=== PATIENT | female | born 1955 | race Caucasian/White ===

== ENCOUNTER 2020-07-25 22:53 | Inpatient (IN) | payer MEDICARE, MEDICAID, SELFPAY ==
--- NOTE | 2020-07-25 22:56 | PM.HP ---
Providers/Chief Complaint Primary Care Provider: MAUREEN Majano Chief Complaint: sob poss covid History of Present Illness Marli Eli is a 65 year old female who has history of oxygen dependent COPD uses 3 L of oxygen at night, sleep apnea, active smoker, diastolic congestive heart failure grade 1 EF 55 to 60% presented to [facility] emergency department with chief complaint of shortness of breath. On arrival he was saturating 86% on 3 L, she was put on 6 L nasal cannula which improved her oxygenation 92%. At that time she was not complaining of any chest pain, nausea, vomiting, diarrhea or fever. She was given Solu-Medrol and DuoNeb treatment, heart rate ranged between 79 to 80s, blood pressure 121/74mmhg White count 12.3, she was not septic, she did not get any antibiotics, CTA was obtained which did not show any PE however groundglass opacities were noticed, EKG normal, BNP 79 White count 12.3 Hemoglobin 14.5 Platelet 316 absolute lymphocyte count 3 pH 7.38 PCO2 40 PO2 53 on 44% fiO2 Sodium 136 Potassium 4 Chloride 101 CO2 21 [address]inine 0[address] chest did not reveal any PE but showed volume loss opacification of right lower lobe mild patchy groundglass opacities in the lungs, nonspecific mild prominent hilar lymphadenopathy She was transferred to [facility] ER for concern of Covid pneumonia. She had active wheezing, she was given DuoNeb treatment in the ER, Covid antigen was requested, and was saturating 90% on 3L nasal cannula which I have increased to 6 L. At the time of my evaluation she had audible wheezing, normal hemodynamics, afebrile, no conversational dyspnea noted no active chest pain. Patient is stating that today at home she usually wears 3 to 4 L of oxygen [id number] and uses trilogy at night, she has been noticing sinus congestion for last few days, she has been noticing clear white discharge from her nose, she has not noticed any fever, sore throat, excessive sputum production, chest pain, diarrhea or dysuria. She is lives in a home with a partner, her partner has no cold-like symptoms, she took her partner to his PCP, at the clinic PCP noted that Ms. Ye was experiencing audible wheezing that is why she was recommended to go to the ER at [facility]. Of note, I was able to read CT 8 chest report from 2016: Which is as follows CTA chest with IV contrast, 08/30/16 1. No dissection. 2. Limited opacification of the pulmonary arteries secondary to the technique hinders characterization of the pulmonary vasculature. However, no visualized embolism as characterized to the most proximal segmental level. Consider alternative form of imaging if indicated clinically-if there is a high clinical suspicion. 3. Numerous nonspecific lymph nodes within the mediastinum. Lymph node in the juxta aortic region of approximately 2 cm. Right hilar lymph node 15 mm. Soft tissue density adjacent to the artery to the left lung base of 2 cm. Some of these lymph nodes are calcified. please correlate regarding known history. 4. Interstitial prominence diffusely of a somewhat reticular nodular pattern. Please correlate regarding known history. Large differential diagnosis. Followup. Edema infection, granulomatous processes within the differential diagnosis. Neoplasm is felt less likely. Review of Systems Const: Denies: fever(s), chills, body aches or fatigue Eyes: Denies: change in vision ENMT: Denies: throat pain Card: Reports: swelling of feet/ankles and dyspnea on exertion; Denies: chest pain or orthopnea Resp: Reports: dyspnea and productive cough GI: Denies: abdominal pain, diarrhea or constipation : Denies: flank pain, urinary frequency or dribbling Musc: Denies: neck pain Skin/Breast: Reports: lesions Neuro: Denies: headache(s) Psych: Reports: anxiety and depression Endo: Denies: polyuria Jordan/Lymph: Denies: easy bruising All/Imm: Denies: urticaria Medications/Allergies Home Medications Medication Instructions Recorded Confirmed Last Taken Type aripiprazole 10 mg tablet 10 mg PO DAILY 10/17/19 06/27/20 Unknown History aspirin 81 mg tablet,delayed 81 mg PO DAILY 10/17/19 06/27/20 Unknown History release bupropion HCl 150 mg 24 hr tablet, 150 mg PO QAM 10/17/19 06/27/20 Unknown History extended release dapagliflozin 10 mg tablet 10 mg PO DAILY 10/17/19 06/27/20 Unknown History docusate sodium 100 mg capsule 100 mg PO DAILY 10/17/19 06/27/20 Unknown History furosemide 40 mg tablet 40 mg PO DAILY 10/17/19 06/27/20 Unknown History metformin 1,000 mg tablet 1,000 mg PO BID 10/17/19 06/27/20 Unknown History metoprolol tartrate 25 mg tablet 25 mg PO BID 10/17/19 06/27/20 Unknown History mirtazapine 30 mg tablet 30 mg PO DAILY 10/17/19 06/27/20 Unknown History pantoprazole 20 mg tablet,delayed 20 mg PO DAILY 10/17/19 06/27/20 Unknown History release potassium chloride 20 mEq 20 meq PO BID 10/17/19 06/27/20 Unknown History tablet,extended release(part/cryst) pregabalin 50 mg capsule 50 mg PO TID 10/17/19 06/27/20 Unknown History rosuvastatin 20 mg tablet 20 mg PO DAILY 10/17/19 06/27/20 Unknown History Allergies Allergy/AdvReac Type Severity Reaction Status Date / Time No Known Allergies Allergy Verified 10/17/19 10:49 PFSH Acute PFSH: Medical History Bipolar affect, depressed CHF (congestive heart failure) COPD (chronic obstructive pulmonary disease) 3L o2 , mild to mod copd responsive to bronchodilator Depression Diabetes Duodenitis Enrolled in chronic care management Gastritis GERD (gastroesophageal reflux disease) Hypertension Obesity Oxygen dependent Sleep apnea Smoker Surgical History (Updated 07/25/20 @ 23:47 by Fatou Johnson MD) H/O colonoscopy with polypectomy H/O esophagogastroduodenoscopy History of appendectomy S/P cholecystectomy Tubal ligation status Family History Other CAD (coronary artery disease) Social History Smoking and tobacco status: current every day smoker Alcohol intake: never Substance/Drug Use: never Physical Exam Narrative: EXAM NARRATIVE: Obese female sitting in her bed without any active discomfort Appears more than stated age Who was saturating 90% on 3 L nasal cannula I have increased her FiO2 to 6 L She has diffuse audible wheezing No conversational dyspnea noted S1, S2 no tachycardia or overt signs of heart failure Abdomen distended nontender abdomen, no signs of peritonitis Neurologically nonfocal exam EOMI, PERRLA GCS 15, lower extremity no edema gangrene or ulcer Skin does not show any ulcers No tenderness noted around frontal and maxillary sinuses No lymphadenopathy noted around anterior cervical, submandibular She is not complaining of active chest pain A&P Assessment and plan (1) Acute on chronic respiratory failure with hypoxemia: Status: Acute (2) Wheezing: Status: Acute (3) Sepsis: Status: Acute (4) Pneumonia: Status: Acute Additional A&P Information Acute exacerbation of COPD due to active smoking and possible pneumonia Acute on chronic hypoxic respiratory failure Her oxygen requirement has increased from 3 L to 6 L PE has been ruled out from CTA chest done at [facility] Diffuse audible wheezing noted She is tachypneic with leukocytosis Meet sepsis criteria I would treat her with ceftriaxone and azithromycin for possible pneumonia Request urine antigen, repeat blood gas in the morning Start her on prednisone 40 mg daily for 5 days DuoNeb every 4 as needed BiPAP at night, she is using trilogy at night at home Type 2 diabetes, consistent carb diet, moderate sliding scale Diastolic congestive heart failure no acute exacerbation I will continue her Lasix 40 mg on daily basis BNP not elevated Duodenitis/gastritis history: Patient not complaining of active reflux disease however it might have a role to play with her diffuse wheezing and chronic shortness of breath, we will keep her on Protonix 20 mg on daily basis Bipolar disorder: No acute exacerbation Continue bupropion, hold aripiprazole for now as she will be requiring a azithromycin, will check QTC intervals first Full code Consistent carb diet DVT prophylaxis Lovenox Attestations Medical Necessity Statement*: Anticipating stay in the hospital cross more than 2 midnights currently need management for sepsis which is most likely secondary to community-acquired pneumonia, Covid antigen result is pending Time Spent in Patient Care: (>than 50% of time spent in counselling and/or direct pt care on unit). 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
[2020-07-25 22:58] VITALS: BP 123/78; PULSE 81; RESP 24; TEMP 36.8; O2SAT 90
--- NOTE | 2020-07-25 22:58 | ED_ITS ---
HPI - SOB/Dyspnea General: Chief Complaint: Shortness of Breath/Dyspnea Stated Complaint: sob poss covid Time Seen by Provider: 07/25/20 22:53 Source: patient and EMS Mode of arrival: EMS Limitations: no limitations History of Present Illness: HPI Narrative: Marli is a 65-year-old female who comes in as a direct admission from [facility]. Patient was accepted by Dr. Johnson. She is stopping in the ED solely for a Covid test. Upon arrival the patient appears stable but she does have audible wheezing present. PFSH ED PFSH: Medical History Bipolar affect, depressed CHF (congestive heart failure) COPD (chronic obstructive pulmonary disease) 3L o2 , mild to mod copd responsive to bronchodilator Depression Diabetes Duodenitis Enrolled in chronic care management Gastritis GERD (gastroesophageal reflux disease) Hypertension Obesity Oxygen dependent Sleep apnea Smoker Surgical History (Updated 07/25/20 @ 23:47 by Fatou Johnson MD) H/O colonoscopy with polypectomy H/O esophagogastroduodenoscopy History of appendectomy S/P cholecystectomy Tubal ligation status Family History Other CAD (coronary artery disease) Social History Smoking and tobacco status: current every day smoker Alcohol intake: never Substance/Drug Use: never Physical Exam Const: COMMON NORMALS: no acute distress, patient oriented x3, no limitations and alert GENERAL APPEARANCE: cooperative HENMT: COMMON NORMALS: normocephalic, atraumatic, external ears normal, EAC's normal and Normal external nose present HEAD & SCALP: normal to inspection, normocephalic and atraumatic FACE & SINUS: normal facial exam and face symmetric NOSE: Normal external nose present and Normal nares present EXTERNAL EAR: Yes external ears normal EXTERNAL AUDITORY CANAL: EAC's normal MOUTH: Normal oral and palatal mucosa present, lip normal and tongue normal Eye: COMMON NORMALS: Equal, round and reactive pupils present and conjunctivae normal GENERAL EYE: appearance normal, both eyes and all related structures ALIGNMENT: Yes alignment normal PERIORBITAL: periorbital findings normal EYELID: eyelids normal CONJUNCTIVA: Yes conjunctivae normal SCLERA: sclerae normal PUPIL: Yes Equal, round and reactive pupils present Neck/C-Spine: COMMON NORMALS: full ROM, no lymphadenopathy, supple, no meningeal signs and no JVD GENERAL: Yes normal visual inspection and Yes trachea midline Chest: COMMONS NORMALS: normal inspection of the chest and normal palpation of entire chest wall Resp: COMMON NORMALS: normal respiratory effort, No retractions, No use of accessory muscles and clear to auscultation bilaterally EFFORT & INSPECTION: Yes able to speak in complete sentences and Yes symmetric chest movement AUSCULTATION: clear to auscultation bilaterally, no crackles, no rales, no rhonchi and wheezes Cardio: COMMON NORMALS: no JVD, regular rate, regular rhythm, S1 normal heart sound present and S2 normal heart sound present RATE: regular rate RHYTHM: regular rhythm HEART SOUNDS: S1 normal heart sound present, S2 normal heart sound present, no click, no gallops, no murmurs and no rubs GI: COMMON NORMALS: Soft to palpation and No hepatosplenomegaly present PALPATION: Yes Soft to palpation, No Tenderness to palpation present (GI), No Guarding due to palpation present (GI), No Rigid due to palpation, Yes No hepatosplenomegaly present, No Hernia present, No Palpable mass present and No Pulsatile mass present : COMMON NORMALS: Yes no CVA tenderness BLADDER/KIDNEY EXAM: Yes no CVA tenderness EXTERNAL FEMALE EXAM: No Hernia present Back/Pelvis: COMMON NORMALS: no CVA tenderness, thoracic and lumbar spine normal to inspection, no thoracic nor lumbar tenderness and thoraco-lumbar ROM normal Extremity: COMMON NORMALS: normal to inspection, full ROM, capillary refill normal, no joint enlargement, no clubbing, cyanosis or edema and no calf tenderness Neuro: COMMON NORMALS: patient oriented x3, CN's II-XII intact bilaterally, moves all extremities, no focal motor deficits and no sensory deficits noted SENSORIUM/ORIENTATION: Yes alert MENINGEAL SIGNS: Yes no meningeal signs SPEECH: speech normal Psych: COMMON NORMALS: mental status grossly normal, Normal thought process present, cooperative, normal affect, speech normal and activity/motor behavior normal SPEECH: Yes normal speech THOUGHT PROCESS: Normal thought process present Skin: COMMON NORMALS: no rashes or lesions noted, turgor normal, no jaundice, no petechiae and no mottling GENERAL SKIN EXAM: no rashes or lesions noted and turgor normal Course Vital Signs: Vital signs: Vital Signs Temperature 98.2 F 07/25/20 22:58 Pulse Rate 94 07/25/20 23:40 Respiratory Rate 19 H 07/25/20 23:35 Blood Pressure 123/78 07/25/20 23:21 Pulse Oximetry 92 07/25/20 23:35 MDM - SOB/Dyspnea MDM Narrative: Medical decision making narrative: Dr. Johnson is aware that the patient is here and is asked me to place the Covid test. He agrees to assume care at this point. 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
[2020-07-25 23:21] VITALS: BP 123/78; PULSE 78; RESP 24; O2SAT 93
[2020-07-25 23:35] VITALS: PULSE 91; RESP 19; O2SAT 92
[2020-07-25] MEDS: albuterol 8 gm MDI 6 PUFF INHALATION (23:35)
[2020-07-25 23:40] VITALS: PULSE 94
--- NOTE | 2020-07-25 23:45 | PC.NURSE ---
call to lab to verify results.
[2020-07-25 23:48] LABS: SARS Covid-2 Antigen Negative (Negative)
[2020-07-25 23:51] VITALS: BP 123/78; PULSE 77; RESP 20; O2SAT 91
[2020-07-26] VITALS (54 sets, daily range): BP systolic 92–125; BP diastolic 53–80; PULSE 58–102; RESP 12–32; TEMP 36.6–37.2; O2SAT 90–96
--- NOTE | 2020-07-26 00:32 | PC.NURSE ---
pt waiting for admission, no needs
[2020-07-26] MEDS: cefTRIAXone 1,000 MG in sodium chloride 0.9% (plus) 50 ML 100 MG IV (01:23)
[2020-07-26] MEDS: enoxaparin 40 mg/0.4 mL Syringe SUBCUT ×2 (01:23→23:56)
[2020-07-26 01:37] LABS: Glucose Point of Care 237 mg/dL (70-110)
--- NOTE | 2020-07-26 01:57 | PC.NURSE ---
PT ARRIVED FROM ED TO CSU 103. PT TRANSFERRED TO BED SBA. RT PUT PT ON BIPAP. VS WNL. PT HAS A NSR. BIKE MECHANIC NURSE DID INITIAL ASSESSMENT. PT DENIES PAIN. PT ORIENTATED TO ROOM. WILL CONTINUE TO MONITOR.
[2020-07-26] MEDS: ipratropium-albuterol 3 mL Neb INHALATION ×2 (02:30→07:55)
[2020-07-26 03:53] LABS: Basophils % 0.3 %; Eosinophils % 0.3 %; Hematocrit 45.7 % (37.0-47.0); Hemoglobin 14.2 g/dL (11.5-15.3); Lymphocytes # 1.1 10^3/uL (0.8-4.8); Lymphocytes % 10.4 %; Mean Corpuscular HGB Conc 31.1 g/dL (30.0-36.0); Mean Corpuscular Volume 90.1 fL (81-99); Mean Platelet Volume 11.1 fL (7.4-10.4); Monocytes % 0.4 %; Neutrophils # 9.51 10^3/uL (1.8-7.7); Nucleated Red Blood Cells % 0 %; Platelet Count 289 10^3/cmm (130-400); Red Blood Count 5.07 10^6/uL (4.1-5.3); Red Cell Distribution Width 16.6 % (12.1-15.1); White Blood Count 10.8 10^3/uL (4.0-10.0)
[2020-07-26 04:26] LABS: Blood Urea Nitrogen 12 mg/dL (8-23); Calcium 9.6 mg/dL (8.5-10.5); Carbon Dioxide 24 mmol/L (22-29); Chloride 104 mmol/L (98-107); Glucose 235 mg/dL (65-115); Osmolality Calculated 295 mOsm/kg (285-295); Sodium 139 mmol/L (136-145)
[2020-07-26 04:42] LABS: Anion Gap 15.9 (5-19); Potassium 4.9 mmol/L (3.5-5.1)
[2020-07-26] MEDS: buPROPion XL (24 HR) 150 mg Tablet PO (05:56)
--- NOTE | 2020-07-26 07:00 | XR_ITS ---
WS: [id number] Exam: XR chest 1V portable [id number] Date/Time of Exam: 07/26/2020 7:00 AM Reason For Exam: pneumonia Comparison 08/31/2016. Mild infiltrate in the left lower lobe suspicious for pneumonia. Remaining lung cotton are clear. Car diomediastinal structures normal for technique. No pleural effusions. Regional bony elements are inta ct. XR/XR chest 1V portable [id number] IMPRESSION: 1. Mild left lower lobe infiltrate suspicious for pneumonia.
[2020-07-26 07:01] LABS: Glucose Point of Care 205 mg/dL (70-110)
--- NOTE | 2020-07-26 08:00 | PC.NURSE ---
patient sitting on the side of the bed eating breakfast. assessment performed, needs within reach. no other needs identified at this time.
[2020-07-26] MEDS: FUROsemide 40 mg Tablet PO (09:00)
[2020-07-26] MEDS: aspirin 81 mg EC Tablet PO (09:00)
[2020-07-26] MEDS: atorvastatin 40 mg Tablet 80 MG PO (09:00)
[2020-07-26] MEDS: pantoprazole DR 40 mg Tablet PO (09:01)
[2020-07-26] MEDS: metoprolol tartrate 25 mg Tablet PO ×2 (09:01→18:13)
[2020-07-26] MEDS: predniSONE 20 mg Tablet 40 MG PO (09:01)
[2020-07-26] MEDS: azithromycin 250 mg Tablet 500 MG PO (09:01)
--- NOTE | 2020-07-26 10:29 | ECG_ITS ---
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 Measurements Intervals Murray Rate: P: MO: QRS: 0 QRSD: T: 0 QT: QTc: Interpretive Statements SINUS RHYTHM WARNING: DATA QUALITY MAY AFFECT INTERPRETATION INTERPRETATION BASED ON A DEFAULT AGE OF 40 YEARS Compared to ECG 08/30/2016 13:38:55 Sinus rhythm no longer present Electronically Signed On 07-26-2020 20:17:45 TRIAL EXAMINER by America Hale M.D. [id number] f
[2020-07-26 11:10] LABS: Glucose Point of Care 237 mg/dL (70-110)
--- NOTE | 2020-07-26 12:15 | PC.NURSE ---
urine specimen collected via clean catch. specimen taken to lab.
--- NOTE | 2020-07-26 14:02 | PM.PN ---
Subjective Subjective: Interval history: Patient was stable ovennight on supplemental oxygen. Noted improvement since admission. Vitals/I&O/Wt Last Vital Signs Temp 97.9 F 07/26/20 08:00 Pulse 90 07/26/20 11:56 Resp 21 H 07/26/20 11:56 BP 92/53 07/26/20 11:56 Pulse Ox 90 07/26/20 11:56 07/25/20 07/26/20 07/26/20 22:59 06:59 14:59 Intake Total 240 / 240 Output Total 400 / 400 Balance -400 / -400 240 / 240 Physical Exam Narrative: EXAM NARRATIVE: General: Alert, awake oriented x 3 CVS : Regular rate and rythym Chest : non-labored respiration Abdomen distended nontender abdomen, no signs of peritonitis Neurologically nonfocal exam Ext : no edema Data : 07/26/20 03:30 07/26/20 03:30 Micro: Microbiology 07/26/20 12:40 Legionella Urinary Antigen - Final Urine,Clean Catch Bacterial Antigens - Final A&P Assessment and plan (1) Acute on chronic respiratory failure with hypoxemia: Status: Acute (2) Wheezing: Status: Acute (3) Sepsis: Status: Acute (4) Pneumonia: Status: Acute Additional A&P Information Acute exacerbation of COPD due to active smoking and possible pneumonia Acute on chronic hypoxic respiratory failure - Wean 02 as tolerated - PE has been ruled out from CTA chest done at [facility] - Albuterol HFA until covid-19 results - BiPAP at night, she is using trilogy at night at home - Prednisone / Azithromycin Type 2 diabetes, consistent carb diet, moderate sliding scale Diastolic congestive heart failure no acute exacerbation Continue Lasix Duodenitis/gastritis history - Protonix Bipolar disorder: No acute exacerbation - Stable continue home meds Full code Consistent carb diet DVT prophylaxis Lovenox Attestations Medical Necessity Statement*: Due to ongoing respiratory failure kodi require further hospitalization Time Spent in Patient Care: Greater than 35 minutes (>than 50% of time spent in counselling and/or direct pt care on unit). Coding Level of Care Code Acute Server Administrator for Lisag Fwd Diagnoses Acute on chronic respiratory failure with hypoxemia J96.21 Wheezing R06.2 Sepsis A41.9 Pneumonia J18.9
[2020-07-26] MEDS: acetaminophen 325 mg Tablet 650 MG PO (15:34)
[2020-07-26 17:26] LABS: Glucose Point of Care 189 mg/dL (70-110)
--- NOTE | 2020-07-26 19:24 | PC.NURSE ---
patient had an uneventful shift. needs within reach. report given to night nurse that will take over care.
[2020-07-26 20:28] LABS: Glucose Point of Care 241 mg/dL (70-110)
[2020-07-27] VITALS (20 sets, daily range): BP systolic 98–130; BP diastolic 63–80; PULSE 56–77; RESP 14–24; TEMP 35.5–36.9; O2SAT 91–96
[2020-07-27] MEDS: cefTRIAXone 1,000 MG in sodium chloride 0.9% (plus) 50 ML 100 MG IV (00:42)
[2020-07-27] MEDS: buPROPion XL (24 HR) 150 mg Tablet PO (06:03)
[2020-07-27 06:49] LABS: Glucose Point of Care 138 mg/dL (70-110)
[2020-07-27] MEDS: azithromycin 250 mg Tablet 500 MG PO (09:36)
[2020-07-27] MEDS: aspirin 81 mg EC Tablet PO (09:36)
[2020-07-27] MEDS: atorvastatin 40 mg Tablet 80 MG PO (09:36)
[2020-07-27] MEDS: FUROsemide 40 mg Tablet PO (09:37)
[2020-07-27] MEDS: metoprolol tartrate 25 mg Tablet PO ×2 (09:38→17:28)
[2020-07-27] MEDS: pantoprazole DR 40 mg Tablet PO (09:38)
[2020-07-27] MEDS: predniSONE 20 mg Tablet 40 MG PO (09:39)
[2020-07-27] MEDS: albuterol 8 gm MDI 2 PUFF INHALATION ×2 (10:35→16:57)
[2020-07-27 11:28] LABS: Glucose Point of Care 168 mg/dL (70-110)
--- NOTE | 2020-07-27 13:55 | P.PN_ITS ---
Subjective Subjective: Interval history: Noted significant improvement in respiratory status however does not quite feel back to baseline. No fever, chills, nausea or vomiting. On 4L via NC at the time of my eval. Vitals/I&O/Wt Last Vital Signs Temp 97.8 F 07/27/20 10:55 Pulse 71 07/27/20 10:55 Resp 24 H 07/27/20 10:55 BP 114/63 07/27/20 10:55 Pulse Ox 94 07/27/20 10:55 07/26/20 07/27/20 07/27/20 22:59 06:59 14:59 Intake Total 200 / 680 290 / 290 Output Total 700 / 1150 1600 / 1600 Balance -500 / -470 -1310 / -1310 Physical Exam Narrative: EXAM NARRATIVE: General: Alert, awake oriented x 3 on 02 at 4L CVS : Regular rate and rythym Chest : non-labored respiration Abdomen distended nontender abdomen, no signs of peritonitis Neurologically nonfocal exam Ext : no edema Data : 07/26/20 03:30 07/26/20 03:30 Micro: Microbiology 07/26/20 12:40 Legionella Urinary Antigen - Final Urine,Clean Catch Bacterial Antigens - Final A&P Assessment and plan (1) Acute on chronic respiratory failure with hypoxemia: Status: Acute (2) Wheezing: Status: Acute (3) Sepsis: Status: Acute (4) Pneumonia: Status: Acute Additional A&P Information Acute exacerbation of COPD due to active smoking and possible pneumonia Acute on chronic hypoxic respiratory failure - Improving - PE has been ruled out from CTA chest done at [facility] - Albuterol HFA until covid-19 results - BiPAP at night, she is using trilogy at night at home - Prednisone / Azithromycin - Will wean o2 at baseline and check ambulatory o2 today Type 2 diabetes, consistent carb diet, moderate sliding scale Diastolic congestive heart failure no acute exacerbation Continue Lasix Duodenitis/gastritis history - Protonix Bipolar disorder: No acute exacerbation - Stable continue home meds Full code Consistent carb diet DVT prophylaxis Lovenox Attestations Medical Necessity Statement*: Will require additional day in hospital for management of respiratory failure. Time Spent in Patient Care: Greater than 35 minutes Coding Level of Care Code Acute Object Oriented Developer for Farhat Fwjaden Diagnoses Acute on chronic respiratory failure with hypoxemia J96.21 Wheezing R06.2 Sepsis A41.9 Pneumonia J18.9
[2020-07-27 16:07] LABS: Glucose Point of Care 227 mg/dL (70-110)
--- NOTE | 2020-07-27 16:39 | PC.NURSE ---
Nurse called tawana figueredo, spoke to nurse Wednesday in the ER. She advised that the covid test results came back negative (PCR send out). Nurse is discontinuing airborne isolation precautions.
[2020-07-27 20:28] LABS: Glucose Point of Care 196 mg/dL (70-110)
--- NOTE | 2020-07-27 23:40 | PC.NURSE ---
PT WAS READJUSTED IN BED. PT DENIES PAIN AT THIS TIME. BIPAP IS ON. WILL CONTINUE TO MONITOR.
[2020-07-28] MEDS: cefTRIAXone 1,000 MG in sodium chloride 0.9% (plus) 50 ML 100 MG IV (00:04)
[2020-07-28] MEDS: enoxaparin 40 mg/0.4 mL Syringe SUBCUT (00:05)
[2020-07-28 01:17] VITALS: PULSE 57; RESP 21; O2SAT 98
[2020-07-28 04:00] VITALS: BP 119/74; PULSE 58; RESP 19; TEMP 37; O2SAT 90
[2020-07-28 04:13] LABS: Basophils # 0.1 10^3/uL (0.0-0.1); Basophils % 0.4 %; Eosinophils % 0.2 %; Hematocrit 41.8 % (37.0-47.0); Hemoglobin 12.8 g/dL (11.5-15.3); Lymphocytes % 23.8 %; Mean Corpuscular HGB Conc 30.6 g/dL (30.0-36.0); Mean Corpuscular Hemoglobin 27.8 pg (28.0-34.0); Mean Corpuscular Volume 90.7 fL (81-99); Mean Platelet Volume 11.3 fL (7.4-10.4); Monocytes # 0.7 10^3/uL (0.2-0.9); Monocytes % 5.5 %; Neutrophils # 8.71 10^3/uL (1.8-7.7); Neutrophils % 69.6 %; Nucleated Red Blood Cells % 0 %; Platelet Count 276 10^3/cmm (130-400); Red Blood Count 4.61 10^6/uL (4.1-5.3); Red Cell Distribution Width 16.9 % (12.1-15.1); White Blood Count 12.5 10^3/uL (4.0-10.0)
[2020-07-28 04:31] LABS: Alanine Aminotransferase 11 U/L (0-33); Albumin Level 3.5 g/dL (3.5-5.2); Alkaline Phosphatase 68 IU/L (35-105); Blood Urea Nitrogen 25 mg/dL (8-23); Carbon Dioxide 25 mmol/L (22-29); Chloride 102 mmol/L (98-107); Globulin 2.3 g/dL (1.3-4.6); Glomerular Filtration Rate 72.2 mL/min (90-130); Glucose 107 mg/dL (65-115); Osmolality Calculated 287 mOsm/kg (285-295); Sodium 136 mmol/L (136-145); Total Bilirubin 0.2 mg/dL (0.15-1.2); Total Protein 5.8 g/dL (6.6-8.7)
[2020-07-28 04:53] LABS: Anion Gap 13.5 (5-19); Aspartate Amino Transferase 9 U/L (0-32); Potassium 4.5 mmol/L (3.5-5.1)
[2020-07-28 05:05] LABS: Slide Review Slide Review Perform
[2020-07-28] MEDS: buPROPion XL (24 HR) 150 mg Tablet PO (05:42)
--- NOTE | 2020-07-28 05:43 | PC.NURSE ---
PT DENIES PAIN AT THIS TIME. PT HAD UNEVENTFUL NIGHT. PT ON BIPAP MOST OF NIGHT. PUT ON 4L NC AT 0500. WILL GIVE REPORT TO DAYSHIFT.
[2020-07-28 06:44] LABS: Glucose Point of Care 117 mg/dL (70-110)
[2020-07-28 07:54] VITALS: BP 102/64; PULSE 59; RESP 16; TEMP 36.4; O2SAT 93
[2020-07-28] MEDS: azithromycin 250 mg Tablet 500 MG PO (08:53)
[2020-07-28] MEDS: metoprolol tartrate 25 mg Tablet PO (08:53)
[2020-07-28] MEDS: aspirin 81 mg EC Tablet PO (08:53)
[2020-07-28] MEDS: FUROsemide 40 mg Tablet PO (08:53)
[2020-07-28] MEDS: atorvastatin 40 mg Tablet 80 MG PO (08:54)
[2020-07-28] MEDS: predniSONE 20 mg Tablet 40 MG PO (08:54)
[2020-07-28] MEDS: pantoprazole DR 40 mg Tablet PO (08:54)
[2020-07-28 09:06] VITALS: PULSE 64; RESP 16; O2SAT 93
[2020-07-28] MEDS: albuterol 8 gm MDI 2 PUFF INHALATION (09:06)
[2020-07-28 11:55] LABS: Glucose Point of Care 130 mg/dL (70-110)
[2020-07-28 12:00] VITALS: BP 112/70; PULSE 65; RESP 17; TEMP 36.4; O2SAT 92
[2020-07-28 12:52] VITALS: BP 112/70; PULSE 65; RESP 17; TEMP 36.4; O2SAT 92
--- NOTE | 2020-07-28 13:06 | P.DS_ITS ---
Discharge Providers Date of Admission: 07/26/20 00:33 Date of Discharge: July 28, 2020 Attending Provider at Admission: Fatou Johnson MD Attending Provider at Discharge: Shubham Jones Primary Care Provider: MAUREEN Majano Diagnoses at Discharge Discharge Diagnosis (1) Acute on chronic respiratory failure with hypoxemia: Status: Acute (2) Wheezing: Status: Acute (3) Sepsis: Status: Acute (4) Pneumonia: Status: Acute Reason for Visit Reason for Visit: sob poss covid Hospital Course Hospital Course 65 year old female who has history of oxygen dependent COPD uses 3 L of oxygen at night, sleep apnea, active smoker, diastolic congestive heart failure grade 1 EF 55 to 60% presented to [place] emergency department with chief complaint of shortness of breath. On arrival he was saturating 86% on 3 L, she was put on 6 L nasal cannula which improved her oxygenation 92%. At that time she was not complaining of any chest pain, nausea, vomiting, diarrhea or fever. She was given Solu-Medrol and DuoNeb treatment, heart rate ranged between 79 to 80s, blood pressure 121/74mmhg White count 12.3, she was not septic, she did not get any antibiotics, CTA was obtained which did not show any PE however groundglass opacities were noticed, EKG normal, BNP 79 White count 12.3 Hemoglobin 14.5 Platelet 316 absolute lymphocyte count 3 pH 7.38 PCO2 40 PO2 53 on 44% fiO2 Sodium 136 Potassium 4 Chloride 101 CO2 21 [address]inine 0[address] chest did not reveal any PE but showed volume loss opacification of right lower lobe mild patchy groundglass opacities in the lungs, nonspecific mild prominent hilar lymphadenopathy She was transferred to [facility] ER for concern of Covid pneumonia. She had active wheezing, she was given DuoNeb treatment in the ER, Covid antigen was requested, and was saturating 90% on 3L nasal cannula which I have increased to 6 L. At the time of my evaluation she had audible wheezing, normal hemodynamics, afebrile, no conversational dyspnea noted no active chest pain. Patient is stating that today at home she usually wears 3 to 4 L of oxygen [id number] and uses trilogy at night, she has been noticing sinus congestion for last few days, she has been noticing clear white discharge from her nose, she has not noticed any fever, sore throat, excessive sputum production, chest pain, diarrhea or dysuria. She is lives in a home with a partner, her partner has no cold-like symptoms, she took her partner to his PCP, at the clinic PCP noted that Ms. Ye was experiencing audible wheezing that is why she was recommended to go to the ER at [place]. Of note, I was able to read CT 8 chest report from 2016: Which is as follows CTA chest with IV contrast, 08/30/16 1. No dissection. 2. Limited opacification of the pulmonary arteries secondary to the technique hinders characterization of the pulmonary vasculature. However, no visualized embolism as characterized to the most proximal segmental level. Consider alternative form of imaging if indicated clinically-if there is a high clinical suspicion. 3. Numerous nonspecific lymph nodes within the mediastinum. Lymph node in the juxta aortic region of approximately 2 cm. Right hilar lymph node 15 mm. Soft tissue density adjacent to the artery to the left lung base of 2 cm. Some of these lymph nodes are calcified. please correlate regarding known history. 4. Interstitial prominence diffusely of a somewhat reticular nodular pattern. Please correlate regarding known history. Large differential diagnosis. Followup. Edema infection, granulomatous processes within the differential diagnosis. Neoplasm is felt less likely. Upon admission to the hospital patients rapid COVID-19 was negative. She was continued to prednisone 40 mg PO daily. In addition she was treated with ceftriaxone and azithromycin for suspected community acquired pneumonia. Noted return to baseline respiratory status and 02 requirement. Wanting to be discharged. She was prescribed cefpodoxime 200 mg PO BID for additional 5 days, prednisone 40 mg daily for additional 3 days. Discharged in stable condition. Physical Exam Narrative: EXAM NARRATIVE: General: Alert, awake oriented x 3 on 02 at 3L CVS : Regular rate and rythym Chest : non-labored respiration Abdomen distended nontender abdomen, no signs of peritonitis Neurologically nonfocal exam Ext : no edema Discharge Data Data Completed and Pending: Completed Studies During Hospitalization Category Date Time Status XR chest 1V marcus ble [id number] Routine Exams 07/26/20 07:00 Completed Labs from last 24 hours 07/28/20 07/28/20 07/28/20 11:45 06:37 03:24 WBC RBC Hgb Hct MCV MCH MCHC RDW Plt Count MPV Neut % (Auto) Lymph % (Auto) [place] % (Auto) Eos % (Auto) Baso % (Auto) Neut # (Auto) Lymph # (Auto) [place] # (Auto) Eos # (Auto) Baso # (Auto) Nucleated RBC % (a uto) Nucleated RBCs # Sodium 136 Potassium 4.5 Chloride 102 Carbon Dioxide 25 Anion Gap 13.5 BUN 25 H Creatinine 0.8 GFR Calculation 72.2 L Glucose 107 POC Glucose 130 117 Calculated Osmolal ity 287 Calcium 9.0 Total Bilirubin 0.2 AST 9 ALT 11 Alkaline Phosphata se 68 Total Protein 5.8 L Albumin 3.5 Globulin 2.3 07/28/20 07/27/20 07/27/20 03:24 20:19 15:44 WBC 12.5 H RBC 4.61 Hgb 12.8 Hct 41.8 MCV 90.7 MCH 27.8 L MCHC 30.6 RDW 16.9 H Plt Count 276 MPV 11.3 H Neut % (Auto) 69.6 Lymph % (Auto) 23.8 [place] % (Auto) 5.5 Eos % (Auto) 0.2 Baso % (Auto) 0.4 Neut # (Auto) 8.71 H Lymph # (Auto) 3.0 [place] # (Auto) 0.7 Eos # (Auto) 0.0 Baso # (Auto) 0.1 Nucleated RBC % (a uto) 0 Nucleated RBCs # 0.0 Sodium Potassium Chloride Carbon Dioxide Anion Gap BUN Creatinine GFR Calculation Glucose POC Glucose 196 227 Calculated Osmolal ity Calcium Total Bilirubin AST ALT Alkaline Phosphata se Total Protein Albumin Globulin Vitals: Last Vital Signs Temp 97.5 F L 07/28/20 12:52 Pulse 65 07/28/20 12:52 Resp 17 07/28/20 12:52 BP 112/70 07/28/20 12:52 Pulse Ox 92 07/28/20 12:52 Discharge Plan Discharge Patient Disposition: Home Condition: Stable Prescriptions: New prednisone 20 mg Tablet 40 mg PO DAILY 3 Days Qty: 6 RF: 0 cefpodoxime 200 mg tablet 200 mg PO BID Qty: 10 RF: 0 Continued aripiprazole 10 mg tablet 10 mg PO DAILY RF: 0 aspirin 81 mg tablet,delayed release (DR/EC) 81 mg PO DAILY RF: 0 bupropion HCl 150 mg tablet extended release 24 hr 150 mg PO QAM RF: 0 docusate sodium [Colace] 100 mg capsule 100 mg PO DAILY RF: 0 Farxiga 10 mg tablet 10 mg PO DAILY RF: 0 furosemide [Lasix] 40 mg tablet 40 mg PO DAILY RF: 0 pregabalin [Lyrica] 50 mg capsule 50 mg PO TID RF: 0 metformin 1,000 mg tablet 1,000 mg PO BID RF: 0 metoprolol tartrate 25 mg tablet 25 mg PO BID RF: 0 mirtazapine 30 mg tablet 30 mg PO DAILY RF: 0 pantoprazole 20 mg tablet,delayed release (DR/EC) 20 mg PO DAILY RF: 0 potassium chloride 20 mEq tablet,ER particles/crystals 20 meq PO BID RF: 0 rosuvastatin 20 mg tablet 20 mg PO DAILY RF: 0 Discharge Orders: Discharge Order (Routine); Ordered 07/28/20 Ordered By: Shubham Jones Referrals: Raad Bhatt FNP [Primary Care Provider] - 1-3 days ([facility] will be calling to schedule a hospital followup to be seen in 1 to 3 days. If you don't hear from them by late Wednesday morning, please give them a call. Thank you) Discharge Diet: Diabetic Discharge Activity: Resume usual activity Patient Instructions: Prednisone (By mouth), Cefpodoxime Proxetil (By mouth), Sepsis (DC), Community-acquired Pneumonia (DC) Discharge Attestations Time Spent in Discharge Care*: greater than 30 min Status at Discharge: Cognitive status at discharge: cognitively intact , Behavioral status at discharge: cooperative , Functional status at discharge: independent ambulation Overall status at discharge: patient is back to baseline Quality Metrics Clinical Quality Measures During this hospital stay, did patient experience: None Coding Level of Care Code Acute Airbrush Artist for Farhat Fwd Diagnoses Acute on chronic respiratory failure with hypoxemia J96.21 Wheezing R06.2 Sepsis A41.9 Pneumonia J18.9
--- NOTE | 2020-07-30 13:56 | PC.RESP ---
SMOKING CESSATION AND PULMONARY REHAB INFORMATION SENT TO PATIENT.
== END 2020-07-28 16:18 | disposition home or self-care (01) | DRG 871 ==
LOC: ER 23:09 → CSU 07-26 00:33
PROVIDERS: Admitting Provider Internal Medicine; Emergency Provider Emergency Medicine; PCP Registered Nurse; Visit Provider Hospitalist
DX: A41.9 Sepsis, unspecified organism (principal); J18.9 Pneumonia, unspecified organism; J96.21 Acute and chronic respiratory failure with hypoxia; J44.0 Chronic obstructive pulmonary disease with (acute) lower respiratory infection; I50.32 Chronic diastolic (congestive) heart failure; Z99.81 Dependence on supplemental oxygen; G47.30 Sleep apnea, unspecified; F17.210 Nicotine dependence, cigarettes, uncomplicated; I11.0 Hypertensive heart disease with heart failure; F31.9 Bipolar disorder, unspecified; E11.9 Type 2 diabetes mellitus without complications; K21.9 Gastro-esophageal reflux disease without esophagitis; E66.9 Obesity, unspecified; Z79.82 Long term (current) use of aspirin
CPT/HCPCS: 12345; 36415; 36416; 71045; 80048; 80053; 82962; 85025; 86403; 87426; 87449; 93005; 94640; 94660; 96372; 99283; J0696; J1650; J1815; J3535; J7512; Q0144

== ENCOUNTER 2020-10-01 02:31 | Observation (INO) | payer MEDICARE, MEDICAID, SELFPAY ==
[2020-10-01] VITALS (12 sets, daily range): BP systolic 103–132; BP diastolic 60–78; PULSE 75–96; RESP 12–24; TEMP 36.3–36.8; O2SAT 91–97; BMI 50.9
[2020-10-01 03:29] LABS: ABG PCO2 39.4 mmHg (35-45); Base Excess ABG -0.4 mmol/L (-2.0-2.0); Blood Gas Allen Test P; HCO3 ABG 24.3 mmol/L (22-26); Oxygen Device OXY MASK; Oxygen Saturation ABG 91.3; PO2 ABG 59.4 mmHg (80.0-100.0); Potassium Level - ABG 3.9 mmol/L (3.5-5.0)
[2020-10-01 03:30] LABS: Alveolar-Arterial Oxygen Gradi 39.1 mmHg (5-10); Arterial Blood Gas Hematocrit 43.7 % (37-47); Blood Gas Sample Site R-RADIAL; Blood Gas Sample Type ART; HGB O2 Sat 89.6 % (95-100); Ionized Calcium Level - ABG 1.2 mmol/L (1.1-1.4); Total Hemoglobin 14.3 g/dL (12-16)
[2020-10-01 03:31] LABS: Methemoglobin 0.9 % (0.4-1.5)
--- NOTE | 2020-10-01 03:46 | PM.HP ---
Providers/Chief Complaint Admitting Physician: Fatou Johnson MD Primary Care Provider: MAUREEN Majano Chief Complaint: chf History of Present Illness Marli Eli is a 65 year old female who has history of preserved ejection fraction heart failure, grade 1 diastolic dysfunction using 3 L of oxygen during the day and 4 L at night has trilogy at home presented with shortness of breath. Patient is stating that for last few days she has been feeling more short of breath from her baseline, she has been experiencing orthopnea and PND, at home on 3 L her O2 saturation was 80 to 82%, she did not bump her oxygen up. She did not experience any fever, nausea, vomiting diarrhea or dysuria. She did not experience any chest pain. She went to [place] ER where she was put on BiPAP to decrease work of breathing she was given IV Lasix which diuresed her to 1200 mL in few hours, her symptoms improved. Because of these changes she was transferred to our facility with concern of requiring more O2in next few hours. On arrival patient was saturating 92% on 4 L nasal cannula, she was not complaining of active chest pain shortness of breath, she feels better after diuresis, she has very mild expiratory wheezing bilaterally otherwise no acute respiratory distress, blood gas was requested which showed hypoxia on 4 L nasal cannula, Records from the outside facility reviewed, rapid Covid test was negative, leukocytosis 14 she was given ceftriaxone and azithromycin along Solu-Medrol IV 80 mg IV Lasix, she was put on BiPAP settings 18 and 6, she was tachypneic in upper 20s BNP 123, she was afebrile Review of Systems Const: Denies: fever(s) or chills Eyes: Denies: change in vision ENMT: Denies: throat pain Card: Reports: orthopnea; Denies: chest pain Resp: Reports: dyspnea and non-productive cough GI: Denies: abdominal pain : Denies: flank pain Musc: Denies: neck pain Skin/Breast: Denies: rash or lesions Neuro: Denies: headache(s) Psych: Denies: anxiety Endo: Denies: polyuria Jordan/Lymph: Denies: easy bruising All/Imm: Denies: urticaria Medications/Allergies Home Medications Medication Instructions Recorded Confirmed Last Taken Type aripiprazole 10 mg tablet 10 mg PO DAILY 10/17/19 10/01/20 07/25/20 08:00 History aspirin 81 mg tablet,delayed 81 mg PO DAILY 10/17/19 10/01/20 07/25/20 08:00 History release bupropion HCl 150 mg 24 hr tablet, 150 mg PO QAM 10/17/19 10/01/20 07/25/20 08:00 History extended release dapagliflozin 10 mg tablet 10 mg PO DAILY 10/17/19 10/01/20 07/25/20 History furosemide 40 mg tablet 40 mg PO DAILY 10/17/19 10/01/20 07/25/20 08:00 History metformin 1,000 mg tablet 1,000 mg PO BID 10/17/19 10/01/20 07/25/20 08:00 History metoprolol tartrate 25 mg tablet 25 mg PO DAILY 10/17/19 10/01/20 07/25/20 08:00 History pantoprazole 20 mg tablet,delayed 20 mg PO DAILY 10/17/19 10/01/20 07/25/20 08:00 History release potassium chloride 20 mEq 20 meq PO DAILY 10/17/19 10/01/20 07/25/20 08:00 History tablet,extended release(part/cryst) pregabalin 50 mg capsule 50 mg PO BID 10/17/19 10/01/20 07/25/20 08:00 History rosuvastatin 20 mg tablet 20 mg PO DAILY 10/17/19 10/01/20 07/25/20 08:00 History cefpodoxime 200 mg PO DAILY 10/01/20 10/01/20 Unknown History Allergies Allergy/AdvReac Type Severity Reaction Status Date / Time codeine Allergy Unknown Unknown Verified 10/01/20 02:42 PFSH Acute PFSH: Medical History Bipolar affect, depressed CHF (congestive heart failure) COPD (chronic obstructive pulmonary disease) 3L o2 , mild to mod copd responsive to bronchodilator Depression Diabetes Duodenitis Enrolled in chronic care management Gastritis GERD (gastroesophageal reflux disease) Hypertension Obesity Oxygen dependent Sleep apnea Smoker Surgical History H/O colonoscopy with polypectomy H/O esophagogastroduodenoscopy History of appendectomy S/P cholecystectomy Tubal ligation status Family History Other CAD (coronary artery disease) Social History (Updated 10/01/20 @ 03:59 by Fatou Johnosn MD) Smoking and tobacco status: current every day smoker Alcohol intake: never Substance/Drug Use: never Housing: House Vitals/I&O/Wt Last Vital Signs Temp 97.5 F L 10/01/20 02:59 Pulse 86 10/01/20 02:59 Resp 14 10/01/20 02:59 BP 119/78 10/01/20 02:59 Pulse Ox 93 10/01/20 02:59 Weight last 48 hrs Weight 130.408 kg Weight 130.408 kg Physical Exam Narrative: EXAM NARRATIVE: Morbidly obese female No acute respite distress She was saturating 92% on 4 L nasal cannula No active chest pain S1, S2, sinus rhythm with active signs of heart failure Has mild expiratory wheezing otherwise bilateral sounds without rhonchi or crackles Abdomen distended bowel sound present soft Lower extremity 1+ trace edema Neurologically nonfocal exam GCS 15 awake alert oriented x3 Appropriate mood and affect No skin cellulitis or gangrene changes A&P Assessment and plan (1) CHF exacerbation: Status: Acute (2) COPD exacerbation: Status: Acute (3) Acute and chronic respiratory failure with hypoxia: Status: Acute Additional A&P Information Acute on chronic hypoxic respiratory failure due to COPD exacerbation Patient is actively smoking, Her symptoms improved after 1200ml diuresis after 80 mg IV Lasix Currently saturating well on 4 L nasal cannula We will keep her on BiPAP at night She has received ceftriaxone and azithromycin at the outside facility, I would only continue azithromycin for anti-inflammatory effect for COPD exacerbation, Covid antigen negative, rapid flu negative We will check D-dimer to rule out PE Obtain procalcitonin level before continuing antibiotic CHF exacerbation BNP not reliable considering high BMI BMP at outside facility 123 Clinical signs of mild fluid overload I would increase her Lasix to 60 mg daily No active chest pain, Preserved ejection fraction heart failure EF 55 to 60% with grade 1 diastolic dysfunction Active smoker: This most likely is contributing to her recurrent admissions and COPD exacerbation Counseled on smoking cessation Consistent carb diet for type 2 diabetes Moderate sliding scale DVT prophylaxis Heparin Full code Attestations Medical Necessity Statement*: Anticipating stay in the hospital to be less than 2 midnights, overnight monitoring for mild COPD exacerbation Time Spent in Patient Care: (>than 50% of time spent in counselling and/or direct pt care on unit). 50mins Coding Level of Care Code Acute Telemarketing Representative for Chg Fwd Diagnoses CHF exacerbation I50.9 COPD exacerbation J44.1 Acute and chronic respiratory failure with hypoxia J96.21
[2020-10-01] MEDS: heparin 5,000 unit/mL INJ 1 mL 5000 UNIT SUBCUT ×3 (04:12→21:25)
[2020-10-01] MEDS: buPROPion XL (24 HR) 150 mg Tablet PO (05:04)
[2020-10-01 05:21] LABS: Basophils % 0.2 %; Eosinophils % 0.1 %; Hemoglobin 13.4 g/dL (11.5-15.3); Lymphocytes % 7.3 %; Mean Corpuscular HGB Conc 31.2 g/dL (30.0-36.0); Mean Corpuscular Hemoglobin 28.1 pg (28.0-34.0); Mean Corpuscular Volume 90.1 fL (81-99); Mean Platelet Volume 11.1 fL (7.4-10.4); Monocytes % 0.2 %; Neutrophils # 11.88 10^3/uL (1.8-7.7); Neutrophils % 91.5 %; Nucleated Red Blood Cells % 0 %; Platelet Count 307 10^3/cmm (130-400); Red Blood Count 4.77 10^6/uL (4.1-5.3)
[2020-10-01 06:06] LABS: Anion Gap 18.3 (5-19); Blood Urea Nitrogen 16 mg/dL (8-23); Calcium 9.3 mg/dL (8.5-10.5); Carbon Dioxide 22 mmol/L (22-29); Chloride 99 mmol/L (98-107); Glomerular Filtration Rate 55.8 mL/min (90-130); Glucose 325 mg/dL (65-115); Osmolality Calculated 294 mOsm/kg (285-295); Potassium 4.3 mmol/L (3.5-5.1); Sodium 135 mmol/L (136-145)
[2020-10-01 06:50] LABS: Procalcitonin 0.05 ng/mL (0-0.5)
[2020-10-01 07:07] LABS: Glucose Point of Care 307 mg/dL (70-110)
[2020-10-01] MEDS: FUROsemide 40 mg Tablet 60 MG PO (08:37)
[2020-10-01] MEDS: pantoprazole DR 40 mg Tablet 20 MG PO (08:38)
[2020-10-01] MEDS: potassium chloride ER 20 mEq Tablet PO (08:38)
[2020-10-01] MEDS: aspirin 81 mg EC Tablet PO (08:40)
[2020-10-01] MEDS: ARIPiprazole 10 mg Tablet PO (08:40)
[2020-10-01] MEDS: atorvastatin 40 mg Tablet 80 MG PO (08:41)
--- NOTE | 2020-10-01 09:05 | PC.CHAP ---
Pastoral Care Encounter/Spiritual Assessment Type of Contact [] Declined candy separator hard visit [] Patient/Family/Request visit [] Outpatient visit [] Follow-up visit [] Physician referral [] Code/Alert [x] Routine visit [] Staff referral [] Actively dying [] Patient sleeping [] Family support [] [] Out of room [] Palliative care [] [] Receiving care in room [] Pre-surgical visit [] Trauma [] Long length of stay [] ICU visit [] Other: Relational/Emotional Strength [] Patient feels connected with others/family/visitors/staff [] Distress [] Loneliness/isolation [] Abandonment Spirituality of Patient [] Person of Arabella [] Attends Sikhism of their Arabella [] Believes in Prayer [] Reads Bible or Hinduism materials [] There are Spiritual issues to be addressed Child Life Assistant Interventions [x] Prayer [x] Active listening [x] Non-anxious presence [x] Spiritual/emotional support [] Crisis/trauma care [] Spiritual counseling [] Bereavement support [] Provided bereavement packet [] Provided Bible/devotional materials [] Provided toy/stuffed animal, coloring book to patient or family member [] Provided Communion [] Anointing/Bureau [] Salvation [x] Completed spiritual assessment [] Other: Impact on Illness or Injury [] Angry [] Fearful [] Anxious [] Often cries [] Exhaustion [] Unable to work [] Unable to attend uatsdin [] Unable to walk/stand [] Unable to read [] Unable to drive [] Unable to eat/drink [] Unable to sleep [] Unable to be with family [] Patient intubated [] Other: Summary patient feeling stronger.. requested L be taken out of last name on catering orders... Child Life Assistant addressed with services.. Time spent with patient 10 min
--- NOTE | 2020-10-01 09:20 | PC.NURSE ---
Pt requesting medication for headache. LABOR UTILIZATION SUPERINTENDENT told nurse who advised that she will contact provider for an order. LABOR UTILIZATION SUPERINTENDENT advised pt, voiced understanding. TMorris LABOR UTILIZATION SUPERINTENDENT
[2020-10-01] MEDS: ipratropium-albuterol 3 mL Neb INHALATION ×3 (09:53→20:32)
[2020-10-01] MEDS: acetaminophen 325 mg Tablet 650 MG PO (10:03)
[2020-10-01 11:32] LABS: Glucose Point of Care 244 mg/dL (70-110)
--- NOTE | 2020-10-01 12:49 | PM.PN ---
Subjective Subjective: Interval history: Jamilah doing well at baseline o2, does not feel back to baseline just yet. Vitals/I&O/Wt Last Vital Signs Temp 97.4 F L 10/01/20 09:00 Pulse 92 10/01/20 09:56 Resp 18 10/01/20 09:56 BP 120/60 10/01/20 09:00 Pulse Ox 91 10/01/20 09:56 09/30/20 10/01/20 10/01/20 22:59 06:59 14:59 Intake Total 240 / 240 360 / 360 Output Total 500 / 500 Balance -260 / -260 360 / 360 Weight last 48 hrs Weight 130.408 kg Weight 130.408 kg Physical Exam Narrative: EXAM NARRATIVE: Morbidly obese female No acute respite distress She was saturating 94% on 4 L nasal cannula No active chest pain S1, S2, sinus rhythm with active signs of heart failure Has mild expiratory wheezing otherwise bilateral sounds without rhonchi or crackles Abdomen distended bowel sound present soft Lower extremity 1+ trace edema Neurologically nonfocal exam GCS 15 awake alert oriented x3 Appropriate mood and affect No skin cellulitis or gangrene changes Data : 10/01/20 04:18 10/01/20 04:18 Micro: Microbiology 10/01/20 06:00 Legionella Urinary Antigen - Final Urine,Voided Bacterial Antigens - Final A&P Assessment and plan (1) CHF exacerbation: Status: Acute (2) COPD exacerbation: Status: Acute (3) Acute and chronic respiratory failure with hypoxia: Status: Acute Additional A&P Information Acute on chronic hypoxic respiratory failure due to COPD exacerbation Patient is actively smoking, Her symptoms improved after 1200ml diuresis after 80 mg IV Lasix Currently saturating well on 4 L nasal cannula Weaned off bipap Conitnue azithromycin for anti-inflammatory effect for COPD exacerbation, Covid antigen negative, rapid flu negative Wean o2 as tolerated CHF exacerbation with pEF Continue current dieresis No active chest pain, Preserved ejection fraction heart failure EF 55 to 60% with grade 1 diastolic dysfunction Active smoker: This most likely is contributing to her recurrent admissions and COPD exacerbation Counseled on smoking cessation Consistent carb diet for type 2 diabetes Moderate sliding scale DVT prophylaxis Heparin Full code Attestations Medical Necessity Statement*: Continue current management for hypoxic respiratory failure Time Spent in Patient Care: Greater than 35 minutes (>than 50% of time spent in counselling and/or direct pt care on unit). Coding Level of Care Code Acute Medical Records Field Technician for g Fwd Diagnoses CHF exacerbation I50.9 COPD exacerbation J44.1 Acute and chronic respiratory failure with hypoxia J96.21
[2020-10-01 16:29] LABS: Glucose Point of Care 235 mg/dL (70-110)
[2020-10-01] MEDS: SUMAtriptan 25 mg Tablet PO (17:41)
--- NOTE | 2020-10-01 19:36 | PC.NURSE ---
Received from SHAR Baumann. Patient resting in bed with eyes closed, easily aroused. Patient had spell of incontinence. Assisted patient up to chair. Cleaned patient and changed linen. Patient able to ambulate with minimum assistance. Patient denies pain or other needs. No further distress observed.
--- NOTE | 2020-10-01 20:40 | PC.NURSE ---
Received report from SHAR Baumann. Patient up to chair. Reports her headache is feeling much better . Denies other needs or discomforts. Patient able to ambulate to bathroom without assistance. No distress observed.
[2020-10-01 21:24] LABS: Glucose Point of Care 211 mg/dL (70-110)
--- NOTE | 2020-10-01 22:21 | PC.NURSE ---
Heparin administered late due to extended care of other patients.
--- NOTE | 2020-10-01 22:46 | PC.NURSE ---
Patient transferred to [facility]. Report called to SHAR Schofield. Patient taken by wheelchair. Informed RT to move bipap with patient.
[2020-10-01 23:48] LABS: Glucose Point of Care 231 mg/dL (70-110)
[2020-10-02] VITALS (9 sets, daily range): BP systolic 107–126; BP diastolic 72–83; PULSE 68–81; RESP 17–20; TEMP 36.3–37.7; O2SAT 92–98
[2020-10-02] MEDS: heparin 5,000 unit/mL INJ 1 mL 5000 UNIT SUBCUT (04:57)
[2020-10-02 05:47] LABS: Basophils % 0.2 %; Eosinophils % 0.1 %; Hematocrit 40.2 % (37.0-47.0); Hemoglobin 12.6 g/dL (11.5-15.3); Lymphocytes # 2.5 10^3/uL (0.8-4.8); Lymphocytes % 17.5 %; Mean Corpuscular HGB Conc 31.3 g/dL (30.0-36.0); Mean Corpuscular Hemoglobin 27.7 pg (28.0-34.0); Mean Corpuscular Volume 88.4 fL (81-99); Mean Platelet Volume 10.9 fL (7.4-10.4); Monocytes # 0.8 10^3/uL (0.2-0.9); Monocytes % 5.7 %; Neutrophils # 10.85 10^3/uL (1.8-7.7); Neutrophils % 75.8 %; Nucleated Red Blood Cells % 0 %; Platelet Count 324 10^3/cmm (130-400); Red Blood Count 4.55 10^6/uL (4.1-5.3); Red Cell Distribution Width 15.2 % (12.1-15.1); White Blood Count 14.3 10^3/uL (4.0-10.0)
[2020-10-02] MEDS: buPROPion XL (24 HR) 150 mg Tablet PO (06:03)
[2020-10-02 06:18] LABS: Alanine Aminotransferase 9 U/L (0-33); Albumin Level 3.4 g/dL (3.5-5.2); Alkaline Phosphatase 73 IU/L (35-105); Anion Gap 14.5 (5-19); Aspartate Amino Transferase 6 U/L (0-32); Blood Urea Nitrogen 22 mg/dL (8-23); Calcium 9.6 mg/dL (8.5-10.5); Carbon Dioxide 26 mmol/L (22-29); Chloride 102 mmol/L (98-107); Globulin 3.2 g/dL (1.3-4.6); Glomerular Filtration Rate 72.2 mL/min (90-130); Glucose 175 mg/dL (65-115); Osmolality Calculated 294 mOsm/kg (285-295); Potassium 4.5 mmol/L (3.5-5.1); Sodium 138 mmol/L (136-145); Total Bilirubin 0.2 mg/dL (0.15-1.2); Total Protein 6.6 g/dL (6.6-8.7)
[2020-10-02 06:27] LABS: Glucose Point of Care 157 mg/dL (70-110)
[2020-10-02] MEDS: ipratropium-albuterol 3 mL Neb INHALATION (08:18)
[2020-10-02] MEDS: atorvastatin 40 mg Tablet 80 MG PO (09:00)
[2020-10-02] MEDS: potassium chloride ER 20 mEq Tablet PO (09:00)
[2020-10-02] MEDS: ARIPiprazole 10 mg Tablet PO (09:00)
[2020-10-02] MEDS: pantoprazole DR 40 mg Tablet 20 MG PO (09:00)
[2020-10-02] MEDS: aspirin 81 mg EC Tablet PO (09:00)
[2020-10-02] MEDS: FUROsemide 40 mg Tablet 60 MG PO (09:01)
--- NOTE | 2020-10-02 10:15 | PC.CHAP ---
Pastoral Care Encounter/Spiritual Assessment Type of Contact [] Declined accounting technician visit [] Patient/Family/Request visit [] Outpatient visit [] Follow-up visit [] Physician referral [] Code/Alert [x] Routine visit [] Staff referral [] Actively dying [] Patient sleeping [] Family support [] [] Out of room [] Palliative care [] [] Receiving care in room [] Pre-surgical visit [] Trauma [] Long length of stay [] ICU visit [] Other: Relational/Emotional Strength [x] Patient feels connected with others/family/visitors/staff [] Distress [] Loneliness/isolation [] Abandonment Spirituality of Patient [x] Person of Arabella [] Attends Hinduism of their Arabella [] Believes in Prayer [] Reads Bible or Episcopalian materials [] There are Spiritual issues to be addressed Kiss Setter Hand Interventions [x] Prayer [] Active listening [] Non-anxious presence [] Spiritual/emotional support [] Crisis/trauma care [] Spiritual counseling [] Bereavement support [] Provided bereavement packet [x] Provided Bible/devotional materials [] Provided toy/stuffed animal, coloring book to patient or family member [] Provided Communion [] Anointing/Reading [] Salvation [x] Completed spiritual assessment [] Other: Impact on Illness or Injury [] Angry [] Fearful [] Anxious [] Often cries [] Exhaustion [] Unable to work [] Unable to attend congregation [] Unable to walk/stand [] Unable to read [] Unable to drive [] Unable to eat/drink [] Unable to sleep [] Unable to be with family [] Patient intubated [] Other: Summary patientg doing better wants to go [id number] mother npassed sad Time spent with patient
[2020-10-02 11:38] LABS: Glucose Point of Care 190 mg/dL (70-110)
--- NOTE | 2020-10-02 12:19 | PC.NURSE ---
DISCHARGE INSTRUCTIONS DISCHARGE INSTRUCTIONS REVIEWED PER THIS NURSE - PT VERBALIZES UNDERSTANDING
--- NOTE | 2020-10-02 16:08 | PC.RESP ---
Smoking Cessation and Pulmonary Rehab information sent to patient.
--- NOTE | 2020-10-02 20:44 | PM.DCS ---
Discharge Providers Date of Admission: 10/01/20 02:31 Date of Discharge: October 02, 2020 Attending Provider at Admission: Fatou Johnson MD Attending Provider at Discharge: Shubham Jones Primary Care Provider: MAUREEN Majano Diagnoses at Discharge Discharge Diagnosis (1) CHF exacerbation: Status: Acute (2) COPD exacerbation: Status: Acute (3) Acute and chronic respiratory failure with hypoxia: Status: Resolved Reason for Visit Reason for Visit: chf Hospital Course Hospital Course 65 year old female who has history of preserved ejection fraction heart failure, grade 1 diastolic dysfunction using 3 L of oxygen during the day and 4 L at night has trilogy at home presented with shortness of breath. Patient is stating that for last few days she has been feeling more short of breath from her baseline, she has been experiencing orthopnea and PND, at home on 3 L her O2 saturation was 80 to 82%, she did not bump her oxygen up. She did not experience any fever, nausea, vomiting diarrhea or dysuria. She did not experience any chest pain. She went to [place] [facility] where she was put on BiPAP to decrease work of breathing she was given IV Lasix which diuresed her to 1200 mL in few hours, her symptoms improved. Because of these changes she was transferred to our facility with concern of requiring more O2in next few hours. On arrival patient was saturating 92% on 4 L nasal cannula, she was not complaining of active chest pain shortness of breath, she feels better after diuresis, she has very mild expiratory wheezing bilaterally otherwise no acute respiratory distress, blood gas was requested which showed hypoxia on 4 L nasal cannula, Records from the outside facility reviewed, rapid Covid test was negative, leukocytosis 14 she was given ceftriaxone and azithromycin along Solu-Medrol IV 80 mg IV Lasix, she was put on BiPAP settings 18 and 6, she was tachypneic in upper 20s BNP 123, she was afebrile. Upon admission to hospital patient was continued on both diuretics and copd treatment protocol with solu-medrol, bronchdialators, and azithromycin. His oxygen returned to baseline. Noted to have improved respiratory status. Oxygen saturation returned to baseline. Patient was discharged home in stable condition. Physical Exam Narrative: EXAM NARRATIVE: Morbidly obese female No acute respite distress She was saturating 94% on 3 L nasal cannula No active chest pain S1, S2, sinus rhythm with active signs of heart failure Stable respiratory status Abdomen distended bowel sound present soft Lower extremity 1+ trace edema Neurologically nonfocal exam GCS 15 awake alert oriented x3 Appropriate mood and affect No skin cellulitis or gangrene changes Discharge Data Vitals: Last Vital Signs Temp 99.8 F H 10/02/20 12:07 Pulse 77 10/02/20 12:07 Resp 17 10/02/20 12:07 BP 126/83 10/02/20 12:07 Pulse Ox 96 10/02/20 12:07 Discharge Plan Discharge Patient Disposition: Home Condition: Stable Prescriptions: Continued aripiprazole 10 mg tablet 10 mg PO DAILY RF: 0 aspirin 81 mg tablet,delayed release (DR/EC) 81 mg PO DAILY RF: 0 bupropion HCl 150 mg tablet extended release 24 hr 150 mg PO QAM RF: 0 Farxiga 10 mg tablet 10 mg PO DAILY RF: 0 furosemide [Lasix] 40 mg tablet 40 mg PO DAILY RF: 0 pregabalin [Lyrica] 50 mg capsule 50 mg PO BID RF: 0 metformin 1,000 mg tablet 1,000 mg PO BID RF: 0 metoprolol tartrate 25 mg tablet 25 mg PO DAILY RF: 0 pantoprazole 20 mg tablet,delayed release (DR/EC) 20 mg PO DAILY RF: 0 potassium chloride 20 mEq tablet,ER particles/crystals 20 meq PO DAILY RF: 0 rosuvastatin 20 mg tablet 20 mg PO DAILY RF: 0 Discontinued cefpodoxime 200 mg tablet 200 mg PO DAILY RF: 0 Discharge Orders: Discharge Order (Routine); Ordered 10/02/20 Ordered By: Shubham Jones Referrals: Juancarlos Sapp [Referring] - 10/07/20 10:00 am Discharge Diet: Advance as tolerated Discharge Activity: Resume usual activity Patient Instructions: COPD, COPD Stoplight Discharge Attestations Time Spent in Discharge Care*: greater than 30 min Specific Discharge Activities: educating patient, educating and/or supporting family/caregiver, discussing with ed case manager/social workers/dc planners, documenting/other paperwork and evaluating patient/reviewing data Status at Discharge: Cognitive status at discharge: cognitively intact, Behavioral status at discharge: cooperative, Functional status at discharge: independent ambulation Overall status at discharge: patient is back to baseline Quality Metrics Clinical Quality Measures During this hospital stay, did patient experience: None Coding Level of Care Code Acute Photo Mask Processor for [facility] Fwd Diagnoses CHF exacerbation I50.9 COPD exacerbation J44.1 Acute and chronic respiratory failure with hypoxia J96.21
[2020-10-03 19:18] LABS: Blood Gas Operator Identificat PE
== END 2020-10-02 13:33 | disposition home or self-care (01) ==
LOC: CSU 09:15 → MEDSURG 22:58
PROVIDERS: Admitting Provider Internal Medicine; PCP Registered Nurse; Visit Provider Hospitalist
DX: J44.1 Chronic obstructive pulmonary disease with (acute) exacerbation (principal); J96.21 Acute and chronic respiratory failure with hypoxia; I50.30 Unspecified diastolic (congestive) heart failure; Z99.81 Dependence on supplemental oxygen; E11.9 Type 2 diabetes mellitus without complications; K21.9 Gastro-esophageal reflux disease without esophagitis; E66.9 Obesity, unspecified; Z68.43 Body mass index [BMI] 50.0-59.9, adult; F17.210 Nicotine dependence, cigarettes, uncomplicated
CPT/HCPCS: 12345; 36415; 36416; 36600; 80048; 80051; 80053; 82330; 82805; 82962; 83605; 84145; 85025; 85378; 86403; 87449; 94640; 94660; 96372; G0378; G0379; J1644; J1815

== ENCOUNTER 2021-05-26 07:15 | Outpatient (CLI) | payer MEDICARE, MEDICAID, SELFPAY ==
[2021-05-26 07:22] VITALS: BMI 53.1
--- NOTE | 2021-05-26 07:22 | ECG_ITS ---
[facility] Test Date: 2021-05-26 Pat Name: Marli Eli Department: Room: Gender: Female Teacher Of The Visually Impaired: : 1955 Requested By: Juancarlos Sapp Order Number: [id number] Delgado MD: Marisa Butterfield M.D. Interpretive Statements NAME OF STUDY: LEXISCAN SESTAMIBI STRESS TEST INDICATION: Heart failure , PROCEDURE: At the baseline, the EKG revealed normal sinus rhythm with a normal ST Ts. The baseline blood pressure was 119/90 mm Hg with a heart rate of 90 beats/min. Lexiscan was infused over a period of 20 seconds. A total of 0.4 milligrams of Lexiscan was infused. The stress phase was continued for a total of 5 minutes. Heart rate at the end of the stress phase was 109 with a blood pressure 122/88. The EKG at the peak infusion revealed no significant changes. Sestamibi was injected 20 seconds after the Lexiscan infusion. Blood pressure at the end of the recovery phase was 119/83 with a heart rate of 103 per minute. CONCLUSION: 1. No significant EKG changes with the LexiScan infusion 2. No LexiScan induced chest pain or cardiac arrhythmia 3. Normal blood pressure and heart rate response 4. Sestamibi/sestamibi perfusion scan pending; see separate report. Electronically Signed On 05-29-2021 0:39:31 CDT by Marisa Butterfield M.D. [id number]
--- NOTE | 2021-05-26 07:23 | NMCV_ITS ---
NM marlo perf SPECT r/s* 19305 Marli Eli Age: 66 Gender: F : 1955 Exam Date: 05/26/2021 07:23 Ordering Phys: Juancarlos Sapp PA-C XX Technologist: DOUGIE Stearns Exam Location: [facility] Indications: HEART FAILURE STRESS TEST Please see separate stress test report in [facility] for full findings IMAGE PROTOCOL Rest/Stress 1 Lexiscan Day Radiopharmaceutical Dose (mCi) Administration Site Administered by Rest: Tc-99m 11.0 IV DOUGIE Torres Sestamibi Stress:Tc-99m 32.7 IV DOUGIE Torres Sestamibi Rest: 05/26/2021 60 Discovery 630 Stress: 05/26/2021 30 Discovery 630 0.4mg Lexiscan. Images obtained in supine and prone position. SPECT RESULTS Technical Quality: Excellent Raw Data Analysis: Normal, Breast attenuation Image Corrections: No attenuation or motion correction applied Summed Stress Score: 4 Summed Rest Score: 0 Summed Difference Score: 4 PERFUSION FINDINGS Small area of slightly decreased tracer uptake in the basal, mid and apical inferior and mid inferolateral regions there is a significant reversibility- noted with the supine imaging. No significant reversible defects were noted with the prone imaging FUNCTIONAL RESULTS (calculated via Gated SPECT) Stress Image LV EF (%): 78 Stress EDV (mL):81 TID: 0.77 Stress ESV (mL):18 FUNCTIONAL FINDINGS: Segmental wall motion analysis revealing no gross wall motion normalities IMPRESSIONS 1. Myocardial perfusion imaging revealing a small to moderate area of inconsistent reversibility in the inferolateral region suggesting ischemia in the distribution of the right coronary artery/circumflex artery. However because of the inconsistency, the reliability is questionable. Clinical correlation recommended. 2. Normal LV ejection fraction of 78%. 3. Segmental wall motion analysis revealing no gross wall motion normalities. 4. Normal LV volume. No similar previous studies are available for comparison Dr Marisa Butterfield MD [facility] (Electronically Signed) Final Date: 26 May 2021 12:46 S
[2021-05-26] MEDS: regadenoson 0.4 Mg/5 ml Syringe IVP (09:29)
[2021-05-26 09:51] VITALS: BP 119/83; PULSE 102
== END 2021-05-26 07:16 | disposition home or self-care (01) ==
LOC: CDL 07:19
PROVIDERS: PCP Physician Assistant Medical; Visit Provider Physician Assistant Medical
DX: R07.9 Chest pain, unspecified (principal); R06.02 Shortness of breath
CPT/HCPCS: 78452; 93017; A9500; J2785

== ENCOUNTER → 2023-08-09 08:49 | Outpatient (BNVA) | payer MEDICARE, MEDICAID, SELFPAY | PROVIDERS: PCP Registered Nurse; Visit Provider Registered Nurse | DX: E11.9 Type 2 diabetes mellitus without complications (principal); I10 Essential (primary) hypertension; E03.9 Hypothyroidism, unspecified; F33.1 Major depressive disorder, recurrent, moderate; E11.22 Type 2 diabetes mellitus with diabetic chronic kidney disease; N18.2 Chronic kidney disease, stage 2 (mild); Z79.4 Long term (current) use of insulin | CPT/HCPCS: 80053; 80061; 81000; 83036; 84443; 85025 ==

== ENCOUNTER 2023-09-30 10:07 | Emergency (ER) | payer MEDICARE, MEDICAID, SELFPAY ==
[2023-09-30 10:09] VITALS: BP 204/133; PULSE 97; RESP 22; TEMP 36.6; O2SAT 94
--- NOTE | 2023-09-30 10:10 | ECG_ITS ---
[facility] Test Date: 2023-09-30 Pat Name: Marli Eli Department: Room: Gender: Female Um Rn: : 1955 Requested By: Carlos Toribio Order Number: [id number] Reading MD: Butch Gregory M.D. Measurements Intervals [place] Rate: 95 P: 52 IL: 155 QRS: 50 QRSD: 109 T: 59 QT: 349 QTc: 440 Interpretive Statements SINUS RHYTHM Compared to ECG 07/26/2020 05:41:58 No significant changes Electronically Signed On 10-01-2023 6:48:20 SPRAY WORKER by Butch Gregory M.D. [email or web address] health natchezVentec Life Systemsohio [facility].[employer]/store/NU/[id number] f
--- NOTE | 2023-09-30 10:21 | XRR_ITS ---
PROCEDURE INFORMATION: Exam: XR Chest Exam date and time: 09/30/2023 10:31 AM Age: 68 years old Clinical indication: Chest wall pain; Patient HX: Lower RT lung cancer; Additional info: Chest pain TECHNIQUE: Imaging protocol: Radiologic exam of the chest. Views: 1 view. COMPARISON: CR XR chest 1V portable [id number] 07/26/2020 6:57 AM FINDINGS: Lungs: Interval development of dense consolidation in the apex of the right upper lobe of indeterminate etiology. Pleural spaces: No pneumothorax. No large pleural effusion. Heart/Mediastinum: The cardiomediastinal silhouette is within normal limits. Bones/joints: Unremarkable. XR/XR chest 1V portable [id number] IMPRESSION: Interval development of dense consolidation in the apex of the right upper lobe of indeterminate etiology. Recommend CT chest for further evaluation.
--- NOTE | 2023-09-30 10:26 | W.ED.CHESTPA ---
HPI - Chest Pain General: Chief Complaint: Chest Pain Stated Complaint: CHEST PAIN Time Seen by Provider: 09/30/23 10:10 Source: patient Mode of arrival: ambulatory History of Present Illness: 68-year-old female presents with a history of coronary disease complaining of chest pain that radiates up into her neck. She states she has had a previous coronary bed she required intervention. She is not actively having chest pain at this time. She does having some elevation in blood pressure symptoms and intermittent present this morning while at rest and resolved spontaneously she also had some shortness of breath there is an area of concern in her right lower lung for cancer that has being monitored. They had done radiation on it but she has not had chemo and she is still being followed with oncology group in [place]. MD complaint: chest pain Pertinent past history: coronary artery disease Onset (ago): minute(s) Timing of current episode: episodic Prior episodes: Yes Onset: during rest Pain location: substernal and left chest Pain radiation: back Severity: mild Relieving factors: nothing Exacerbating factors: nothing Associated symptoms: Deny abdominal pain, diaphoresis, dyspnea, fever(s), leg edema, nausea, palpitations, sense of impending doom, syncope or vomiting Review of Systems Const: Denies: fever(s), chills or diaphoresis Card: Denies: chest pain, palpitations or syncope Resp: Denies: dyspnea GI: Denies: abdominal pain, nausea or vomiting : Denies: dysuria, urinary frequency or urinary urgency Musc: Denies: neck pain or back pain Skin/Breast: Denies: rash PFSH ED PFSH: Medical History History of attempted suicide Hypothyroidism (acquired) Duodenitis Gastritis Sleep apnea Obesity Bipolar affect, depressed Depression Hypertension Diabetes Oxygen dependent CHF (congestive heart failure) GERD (gastroesophageal reflux disease) COPD (chronic obstructive pulmonary disease) 3L o2 , mild to mod copd responsive to bronchodilator Enrolled in chronic care management Surgical History History of appendectomy H/O colonoscopy with polypectomy H/O esophagogastroduodenoscopy Tubal ligation status S/P cholecystectomy Family History Other CAD (coronary artery disease) Social History Smoking and tobacco/nicotine status: former use of tobacco/nicotine Quit status (tobacco/nicotine): has quit using Year quit tobacco: 07/2023 Alcohol intake: never Substance/Drug Use: never Adopted: No Caregiver/support person: No Lives independently: No Household members: family Housing: House Current gender identity: Female Physical Exam Const: COMMON NORMALS: no acute distress GENERAL APPEARANCE: cooperative and comfortable ORIENTATION/CONSCIOUSNESS: Yes awake, Yes oriented to person, Yes oriented to place and Yes oriented to time HENMT: COMMON NORMALS: normocephalic, atraumatic and hearing grossly normal bilaterally HEAD & SCALP: normocephalic and atraumatic Resp: COMMON NORMALS: normal respiratory effort, No retractions, No use of accessory muscles and clear to auscultation bilaterally AUSCULTATION: clear to auscultation bilaterally Cardio: COMMON NORMALS: regular rate, regular rhythm and No murmurs present (Cardio) RATE: regular rate RHYTHM: regular rhythm GI: COMMON NORMALS: Soft to palpation and No hepatosplenomegaly present AUSCULTATION: Yes normoactive bowel sounds PALPATION: Yes Soft to palpation, No Tenderness to palpation present (GI), No Guarding due to palpation present (GI) and Yes No hepatosplenomegaly present Extremity: COMMON NORMALS: normal to inspection, capillary refill normal, no clubbing, cyanosis or edema, no calf tenderness and no pedal edema Neuro: SENSORIUM/ORIENTATION: Yes oriented to person, Yes oriented to place and Yes oriented to time Skin: COMMON NORMALS: no rashes or lesions noted GENERAL SKIN EXAM: no rashes or lesions noted Course Vital Signs: Vital signs: Vital Signs Temperature 97.9 F 09/30/23 10:09 Pulse Rate 81 09/30/23 13:52 Respiratory Rate 20 H 09/30/23 13:52 Blood Pressure 114/68 09/30/23 13:52 Pulse Oximetry 95 09/30/23 13:52 Oxygen Delivery Me thod Room Air 09/30/23 13:52 MDM - Chest Pain Medical Decision Making Chest x-ray abnormal. CT shows large suprahilar mass with distortion of the mediastinum. She is not compromised at all at this point. Cardiac enzymes and EKG are negative I do not believe this is an acute coronary event suspect her pain is caused by the mass she given pain medications and we will discharge her home we did give her a copy of the CT to handcarried to her oncology group recommend that she follow-up with her oncology to compare with the imaging they have done to see if this is a new lesion and requires further evaluation. There is no PE present on CTA. Differential Diagnosis Likely acute massive pulmonary embolism and acute myocardial infarction Medical Records I reviewed the patient's medical records. Lab Data I reviewed the patient's lab results. 09/30/23 10:31 09/30/23 10:31 Radiology Impressions Chest X-Ray 09/30/23 10:21 IMPRESSION: Interval development of dense consolidation in the apex of the right upper lobe of indeterminate etiology. Recommend CT chest for further evaluation. Chest CTA 09/30/23 10:45 IMPRESSION: No pulmonary embolism. Right perihilar masslike density and mediastinal/hilar adenopathy, neoplasm not excluded. Component of atelectasis may overestimate size of mass. Laboratory Results WBC 9.12 10^3/uL (3.29-11.43) 09/30/23 10:31 RBC 4.64 10^6/uL (3.85-5.65) 09/30/23 10:31 Hgb 13.30 g/dL (11.27-16.99) 09/30/23 10:31 Hct 40.3 % (36-47) 09/30/23 10:31 MCV 86.9 fl (85-98) 09/30/23 10:31 MCH 28.7 pg (27-33) 09/30/23 10:31 MCHC 33.0 g/dL (30-55) 09/30/23 10:31 RDW 14.3 % (12.1-15.1) 09/30/23 10:31 Plt Count 275 10^3/cmm (157-399) 09/30/23 10:31 MPV 9.9 fL (7.4-10.4) 09/30/23 10:31 Neut % (Auto) 72.7 % 09/30/23 10:31 Lymph % (Auto) 18.8 % 09/30/23 10:31 [place] % (Auto) 4.9 % 09/30/23 10:31 Eos % (Auto) 2.4 % 09/30/23 10:31 Baso % (Auto) 0.9 % 09/30/23 10:31 Neut # (Auto) 6.63 10^3/uL (1.8-7.7) 09/30/23 10:31 Lymph # (Auto) 1.7 10^3/uL (0.8-4.8) 09/30/23 10:31 [place] # (Auto) 0.5 10^3/uL (0.2-0.9) 09/30/23 10:31 Eos # (Auto) 0.2 10^3/uL (0.0-0.8) 09/30/23 10:31 Baso # (Auto) 0.1 10^3/uL (0.0-0.1) 09/30/23 10:31 Nucleated RBC % (auto) 0 % 09/30/23 10:31 Nucleated RBCs # 0.0 /100WBC 09/30/23 10:31 Sodium 138 mmol/L (136-145) 09/30/23 10:31 Potassium 3.9 mmol/L (3.5-5.1) 09/30/23 10:31 Chloride 101 mmol/L (98-107) 09/30/23 10:31 Carbon Dioxide 23 mmol/L (22-29) 09/30/23 10:31 Anion Gap 17.9 (5-19) 09/30/23 10:31 BUN 16 mg/dL (8-23) 09/30/23 10:31 Creatinine 0.7 mg/dL (0.5-0.9) 09/30/23 10:31 GFR Calculation 83.5 mL/min (90-130) L 09/30/23 10:31 Glucose 197 mg/dL (65-115) H 09/30/23 10:31 Calculated Osmolality 293 mOsm/kg (285-295) 09/30/23 10:31 Calcium 9.5 mg/dL (8.5-10.5) 09/30/23 10:31 Total Bilirubin 0.2 mg/dL (0.15-1.2) 09/30/23 10:31 AST 11 U/L (0-32) 09/30/23 10:31 ALT 12 U/L (0-33) 09/30/23 10:31 Alkaline Phosphatase 100 U/L (35-105) 09/30/23 10:31 Troponin T Baseline < 6 ng/L (0-10) 09/30/23 10:31 Troponin T 120 Minute 6.00 ng/L (0-10) 09/30/23 12:45 Delta Troponin T 0.66860 ABS# (0-10) 09/30/23 12:45 Total Protein 6.3 g/dL (6.6-8.7) L 09/30/23 10:31 Albumin 3.9 g/dL (3.5-5.2) 09/30/23 10:31 Globulin 2.4 g/dL (1.3-4.6) 09/30/23 10:31 All radiology interpretation(s) finalized by discharge Discharge Plan Discharge Patient Disposition: Home Clinical Impression: Mass of upper lobe of right lung Condition: Stable Prescriptions: New amlodipine 5 mg tablet 5 mg PO DAILY Qty: 30 0RF hydrocodone-acetaminophen 5-325 mg tablet 1 tab PO Q6H PRN (Reason: pain) Qty: 20 0RF No Action aspirin 81 mg tablet,delayed release (DR/EC) 81 mg PO DAILY pantoprazole 20 mg tablet,delayed release (DR/EC) 20 mg PO DAILY bumetanide 1 mg tablet 1 mg PO DAILY insulin lispro [Humalog KwikPen Insulin] 100 unit/mL insulin pen See Rx Instructions SUBCUT TID Rx Instructions: sliding scale subcutaneously three times daily; losartan 100 mg tablet 100 mg PO DAILY atorvastatin 10 mg tablet 10 mg PO DAILY Trulicity 4.5 mg/0.5 mL pen injector 4.5 mg SUBCUT DAILY magnesium oxide 500 mg capsule 500 mg PO DAILY cholecalciferol (vitamin D3) 125 mcg (5,000 unit) capsule 125 mcg PO DAILY senna 8.6 mg capsule 8.6 mg PO BID loratadine [Allergy Relief (loratadine)] 10 mg tablet 10 mg PO DAILY latanoprost 0.005 % drops, emulsion 1 drp ophthalmic (eye) DAILY Ubrelvy 50 mg tablet 50 mg PO DAILY PRN (Reason: Migraine Headache) doxepin 25 mg capsule 25 mg PO DAILY metoprolol tartrate 25 mg tablet 25 mg PO DAILY 30 Days Qty: 30 0RF potassium chloride 20 mEq tablet,ER particles/crystals 20 meq PO DAILY 30 Days Qty: 30 0RF (DME) Blood Glucose Test Strip See Rx Instructions .MEDSUPPLY Qty: 200 12RF Rx Instructions: Use as directed with glucometer to check blood sugar (DME) lancets Misc See Rx Instructions .MEDSUPPLY Qty: 200 12RF Rx Instructions: Use as directed to prick skin for blood sugar checks (DME) blood-glucose meter Misc See Rx Instructions .MEDSUPPLY Qty: 1 0RF Rx Instructions: Use as directed for checking blood sugar levothyroxine 25 mcg tablet 25 mcg PO DAILY mirtazapine 30 mg tablet 30 mg PO BEDTIME PRN (Reason: Sleep) budesonide 0.25 mg/2 mL suspension for nebulization 0.25 mg inhalation BID bupropion HCl 300 mg tablet extended release 24 hr 300 mg PO QAM Discharge Orders: Discharge ED (Routine); Ordered 09/30/23 Ordered By: Carlos Almeida Referrals: Raad Bhatt, MAUREEN [Primary Care Provider] - Discharge Diet: Usual diet Discharge Activity: Resume usual activity Patient Instructions: Opioid Safety, Pain Management Activity Restrictions/Additional Instructions: Thank you for choosing [facility] for your healthcare needs today. Please realize this is an emergency room and that we are providing you with a medical screening exam and this may not be complete and all inclusive of all the testing and or work up that you may need to determine your ailment or severity of your illness. It is very important that you follow up as instructed or that you return to the Emergency Department should you have concerns or if your condition changes or worsens in any way. Follow-up with your primary care team for follow-up on your blood pressure. Start the lisinopril once daily. On imaging done today there is a right upper lobe and right suprahilar mass that is impinging on the mediastinum encasing the pulmonary artery. You should follow-up with your oncology team regarding this. You had mentioned during the course of the visit that your previous known mass was in the right lower lobe but this is in the upper lobe of the right lung. Coding Level of Care Code ED Dip Stand Loader for Farhat Cooper
[2023-09-30] MEDS: aspirin 81 mg Chew Tablet 324 MG PO (10:34)
[2023-09-30 10:41] LABS: Basophils # 0.1 10^3/uL (0.0-0.1); Basophils % 0.9 %; Eosinophils # 0.2 10^3/uL (0.0-0.8); Eosinophils % 2.4 %; Hematocrit 40.3 % (36-47); Lymphocytes # 1.7 10^3/uL (0.8-4.8); Lymphocytes % 18.8 %; Mean Corpuscular Hemoglobin 28.7 pg (27-33); Mean Corpuscular Volume 86.9 fl (85-98); Mean Platelet Volume 9.9 fL (7.4-10.4); Monocytes # 0.5 10^3/uL (0.2-0.9); Monocytes % 4.9 %; Neutrophils # 6.63 10^3/uL (1.8-7.7); Neutrophils % 72.7 %; Nucleated Red Blood Cells % 0 %; Platelet Count 275 10^3/cmm (157-399); Red Blood Count 4.64 10^6/uL (3.85-5.65); Red Cell Distribution Width 14.3 % (12.1-15.1); White Blood Count 9.12 10^3/uL (3.29-11.43)
[2023-09-30 10:44] VITALS: BP 182/112; PULSE 83; RESP 18; O2SAT 95
--- NOTE | 2023-09-30 10:45 | CTR_ITS ---
PROCEDURE INFORMATION: Exam: CTA Chest With Contrast Exam date and time: 09/30/2023 1:22 PM Age: 68 years old Clinical indication: Pain; Chest pressure; Additional info: Chest pain TECHNIQUE: Imaging protocol: Computed tomographic angiography of the chest with contrast. Exam focused on the arteries. 3D rendering (Not supervised by radiologist): MIP and/or 3D reconstructed images were created by the technologist. Radiation optimization: All CT scans at this facility use at least one of these dose optimization techniques: automated exposure control; mA and/or kV adjustment per patient size (includes targeted exams where dose is matched to clinical indication); or iterative reconstruction. Contrast material: OMNI 350; Contrast volume: 100 ml; Contrast route: INTRAVENOUS (IV); COMPARISON: CT angio chest PE protcl [id number] 08/30/2016 8:49 AM RADIATION DOSE METRICS: Total DLP (mGy-cm): 532 FINDINGS: Pulmonary arteries: No central or segmental pulmonary emboli. Aorta: No aortic aneurysm or dissection. Lungs: Large right suprahilar masslike density measuring at least 7 x 6 cm such as on series 9, image 148 and 9.4 cm craniocaudal on coronal image 45.. This extends medially to have slight mass effect on the trachea. The mass encases the right segmental pulmonary vasculature but no occlusion is appreciated. Pleural spaces: No pneumothorax. No pleural effusion. Heart: Coronary calcifications. No pericardial effusion. Lymph nodes: Enlarged mediastinal/hilar lymph nodes (reference 2 cm short axis precarinal node on series 9, image 146 and 2 cm paraesophageal node on image 160. Prominent left mediastinal/hilar lymph nodes also present such as on image 230.. Bones/joints: No acute findings. Soft tissues: No acute findings. CT/CT angio chest PE protcl [id number] IMPRESSION: No pulmonary embolism. Right perihilar masslike density and mediastinal/hilar adenopathy, neoplasm not excluded. Component of atelectasis may overestimate size of mass.
[2023-09-30] MEDS: metoprolol tartrate 25 mg Tablet PO (11:06)
[2023-09-30] MEDS: nitroglycerin 1 gm/inch oint Pkt 1 INCH TOPICAL (11:07)
[2023-09-30 11:11] VITALS: BP 137/80; PULSE 79; RESP 18; O2SAT 93
[2023-09-30 11:13] LABS: Alanine Aminotransferase 12 U/L (0-33); Albumin Level 3.9 g/dL (3.5-5.2); Alkaline Phosphatase 100 U/L (35-105); Anion Gap 17.9 (5-19); Aspartate Amino Transferase 11 U/L (0-32); Blood Urea Nitrogen 16 mg/dL (8-23); Calcium 9.5 mg/dL (8.5-10.5); Carbon Dioxide 23 mmol/L (22-29); Chloride 101 mmol/L (98-107); Globulin 2.4 g/dL (1.3-4.6); Glomerular Filtration Rate 83.5 mL/min (90-130); Glucose 197 mg/dL (65-115); Osmolality Calculated 293 mOsm/kg (285-295); Potassium 3.9 mmol/L (3.5-5.1); Sodium 138 mmol/L (136-145); Total Bilirubin 0.2 mg/dL (0.15-1.2); Total Protein 6.3 g/dL (6.6-8.7)
[2023-09-30 11:15] LABS: Troponin(5th) Baseline < 6 ng/L (0-10)
[2023-09-30 12:15] VITALS: BP 153/102; PULSE 83; RESP 18; O2SAT 93
--- NOTE | 2023-09-30 12:22 | ECG_ITS ---
[facility] Test Date: 2023-09-30 Pat Name: Marli Eli Department: Room: Gender: Female Starchmaker: : 1955 Requested By: Carlos Toribio Order Number: [id number] Reading MD: Butch Gregory M.D. Measurements Intervals [place] Rate: 75 P: 64 MA: 153 QRS: 55 QRSD: 90 T: 51 QT: 372 QTc: 418 Interpretive Statements SINUS RHYTHM Compared to ECG 09/30/2023 10:10:28 No significant changes Electronically Signed On 10-01-2023 6:53:39 RETAIL SALES LEAD by Butch Gregory M.D. [email or web address] [email or web address] [email or web address]/store/[id number]
[2023-09-30] MEDS: iohexol 350 mg/mL 500 mL Btl (per mL) IV (12:33)
[2023-09-30 12:59] VITALS: BP 119/77; PULSE 79; RESP 16; O2SAT 94
[2023-09-30 13:18] LABS: Troponin 5 2HR Delta 0.00001 ABS# (0-10)
[2023-09-30 13:52] VITALS: BP 114/68; PULSE 81; RESP 20; O2SAT 95
== END 2023-09-30 14:33 | disposition home or self-care (01) ==
PROVIDERS: Emergency Provider Family Medicine; PCP Registered Nurse
DX: R91.8 Other nonspecific abnormal finding of lung field (principal); Z79.82 Long term (current) use of aspirin; Z79.4 Long term (current) use of insulin; Z79.85 Long-term (current) use of injectable non-insulin antidiabetic drugs; Z87.891 Personal history of nicotine dependence; E11.9 Type 2 diabetes mellitus without complications; Z99.81 Dependence on supplemental oxygen; I11.0 Hypertensive heart disease with heart failure; I50.9 Heart failure, unspecified; J44.9 Chronic obstructive pulmonary disease, unspecified
CPT/HCPCS: 36415; 71045; 71275; 80053; 84484; 85025; 93005; 99285; Q9967

== ENCOUNTER → 2024-01-05 10:21 | Outpatient (BNVA) | payer MEDICARE, MEDICAID, SELFPAY | PROVIDERS: PCP Registered Nurse; Visit Provider Registered Nurse | DX: E11.22 Type 2 diabetes mellitus with diabetic chronic kidney disease (principal); N18.2 Chronic kidney disease, stage 2 (mild); Z79.4 Long term (current) use of insulin; E03.9 Hypothyroidism, unspecified; E11.9 Type 2 diabetes mellitus without complications; I10 Essential (primary) hypertension; K21.9 Gastro-esophageal reflux disease without esophagitis | CPT/HCPCS: 80053; 83036; 84443 ==

== ENCOUNTER 2024-03-21 17:12 | Emergency (ER) | payer MEDICARE, MEDICAID, SELFPAY ==
[2024-03-21 17:16] VITALS: BP 158/124; PULSE 103; RESP 22; TEMP 36.7; O2SAT 95
--- NOTE | 2024-03-21 17:27 | ECG_ITS ---
[facility] Test Date: 2024-03-21 Pat Name: Marli Eli Department: Room: Gender: Female Petroleum Supply Specialist: : 1955 Requested By: Malini Umana Order Number: [id number] Delgado MD: Marisa Butterfield M.D. Measurements Intervals [place] Rate: 97 P: 66 UT: 149 QRS: 76 QRSD: 132 T: 56 QT: 358 QTc: 456 Interpretive Statements SINUS RHYTHM RIGHT BUNDLE BRANCH BLOCK [120+ ms QRS DURATION, UPRIGHT V1, 40+ ms S IN I/aVL/V4/V5/V6] Compared to ECG 09/30/2023 12:49:16 Right bundle-branch block now present Electronically Signed On 03-21-2024 21:33:12 CDT by Marisa Butterfield M.D. [id number]
--- NOTE | 2024-03-21 17:32 | ED.C_ITS ---
HPI - Psych 2 General: Chief Complaint: Psychiatric Symptoms Stated Complaint: SI Time Seen by Provider: 03/21/24 17:17 Source: patient Mode of arrival: ambulatory Limitations: no limitations History of Present Illness: 61-year-old female states she is a histo ry depression states that she has been adjusting her Wellbutrin and states that she feels like she is got much worse states over the last week she has been severely depressed with severe suicidal thoughts she states she has been having a plan of overdosing on her hydrocodone and states she wants to get help before she does not. Denies any worse improved factors Associated symptoms: Reports depression and suicidal ideation Review of Systems 2 Const: Denies: fever(s), chills, body aches or change in appetite ENMT: Denies: throat pain or dental pain Card: Denies: chest pain Resp: Denies: dyspnea GI: Denies: abdominal pain, nausea, vomiting or diarrhea Musc: Denies: neck pain or back pain Skin/Breast: Denies: rash Neuro: Denies: headache(s) Psych: Reports: depression and suicidal ideation PFS ED 2 PFSH: Medical History History of attempted suicide Hypothyroidism (acquired) Duodenitis Gastritis Sleep apnea Obesity Bipolar affect, depressed Depression Hypertension Diabetes Oxygen dependent CHF (congestive heart failure) GERD (gastroesophageal reflux disease) COPD (chronic obstructive pulmonary disease) 3L o2 , mild to mod copd responsive to bronchodilator Enrolled in chronic care management Surgical History History of appendectomy H/O colonoscopy with polypectomy H/O esophagogastroduodenoscopy Tubal ligation status S/P cholecystectomy Family History Other CAD (coronary artery disease) Social History Smoking and tobacco/nicotine status: former use of tobacco/nicotine Quit status (tobacco/nicotine): has quit using Year quit tobacco: 07/2023 Alcohol intake: never Substance/Drug Use: never Adopted: No Caregiver/support person: No Lives independently: No Household members: family Housing: House Current gender identity: Female Physical Exam 2 Const: COMMON NORMALS: no acute distress, patient oriented x3 and healthy appearing HENMT: COMMON NORMALS: normocephalic and atraumatic HEAD & SCALP: n ormocephalic and atraumatic Neck/C-Spine: COMMON NORMALS: full ROM and supple Chest: COMMONS NORMALS: normal inspection of the chest Resp: COMMON NORMALS: normal respiratory effort Cardio: COMMON NORMALS: regular rate RATE: regular rate Extremity: COMMON NORMALS: normal to inspection and full ROM Neuro: COMMON NORMALS: patient oriented x3, moves all extremities and no focal motor deficits Psych: COMMON NORMALS: mental status grossly normal, Normal thought process present and cooperative THOUGHT PROCESS: Normal thought process present T HOUGHT CONTENT: Yes Suicidality present Skin: COMMON NORMALS: no rashes or lesions noted and no wounds GENERAL SKIN EXAM: no rashes or lesions noted Course 2 Vital Signs: Vital signs: Vital Signs Temperature 97 F L 03/22/24 07:08 Pulse Rate 87 03/22/24 07:08 Respiratory Rate 16 03/22/24 07:08 Blood Pressure 112/76 03/22/24 07:08 Pulse Oximetry 95 03/22/24 07:08 Oxygen Delivery Me thod Room Air 03/22/24 07:08 MDM - Psych Medical Decision Making Patient presents for suicidal ideations she is medically cleared will transfer for Misa psych capabilities. Medical Records I reviewed the patient's medical records. Lab Data I reviewed the patient's lab results. 03/21/24 17:48 03/21/24 17:48 Radiology Impressions Chest X-Ray 03/22/24 11:30 IMPRESSION: Right apical atelectasis has improved over the past several months Laboratory Results WBC 7.17 10^3/uL (3.29-11.43) 03/21/24 17:48 RBC 3.05 10^6/uL (3.85-5.65) L 03/21/24 17:48 Hgb 9.00 g/dL (11.27-16.99) L 03/21/24 17:48 Hct 29.4 % (36-47) L 03/21/24 17:48 MCV 96.4 fl (85-98) 03/21/24 17:48 MCH 29.5 pg (27-33) 03/21/24 17:48 MCHC 30.6 g/dL (30-55) 03/21/24 17:48 RDW 15.8 % (12.1-15.1) H 03/21/24 17:48 Plt Count 251 10^3/cmm (157-399) 03/21/24 17:48 MPV 9.2 fL (7.4-10.4) 03/21/24 17:48 Neut % (Auto) 79.7 % 03/21/24 17:48 Lymph % (Auto) 9.8 % 03/21/24 17:48 Bibb % (Auto) 7.3 % 03/21/24 17:48 Eos % (Auto) 2.0 % 03/21/24 17:48 Baso % (Auto) 0.6 % 03/21/24 17:48 Neut # (Auto) 5.73 10^3/uL (1.8-7.7) 03/21/24 17:48 Lymph # (Auto) 0.7 10^3/uL (0.8-4.8) L 03/21/24 17:48 Bibb # (Auto) 0.5 10^3/uL (0.2-0.9) 03/21/24 17:48 Eos # (Auto) 0.1 10^3/uL (0.0-0.8) 03/21/24 17:48 Baso # (Auto) 0.0 10^3/uL (0.0-0.1) 03/21/24 17:48 Nucleated RBC % (auto) 0 % 03/21/24 17:48 Nucleated RBCs # 0.0 /100WBC 03/21/24 17:48 Sodium 134 mmol/L (136-145) L 03/21/24 17:48 Potassium 4.3 mmol/L (3.5-5.1) 03/21/24 17:48 Chloride 100 mmol/L (98-107) 03/21/24 17:48 Carbon Dioxide 24 mmol/L (22-29) 03/21/24 17:48 Anion Gap 14.3 (5-19) 03/21/24 17:48 BUN 14 mg/dL (8-23) 03/21/24 17:48 Creatinine 0.6 mg/dL (0.5-0.9) 03/21/24 17:48 GFR Calculation 99.4 mL/min (90-130) 03/21/24 17:48 Glucose 117 mg/dL (65-115) H 03/21/24 17:48 Calculated Osmolality 280 mOsm/kg (285-295) L 03/21/24 17:48 Calcium 9.1 mg/dL (8.5-10.5) 03/21/24 17:48 Total Bilirubin 0.2 mg/dL (0.15-1.2) 03/21/24 17:48 AST 11 U/L (0-32) 03/21/24 17:48 ALT 9 U/L (0-33) 03/21/24 17:48 Alkaline Phosphatase 85 U/L (35-105) 03/21/24 17:48 Total Protein 6.9 g/dL (6.6-8.7) 03/21/24 17:48 Albumin 3.7 g/dL (3.5-5.2) 03/21/24 17:48 Globulin 3.2 g/dL (1.3-4.6) 03/21/24 17:48 TSH 1.99 uIU/mL (0.27-4.20) 03/21/24 17:48 Urine Color Yellow (Yellow) 03/21/24 17:30 Urine Appearance Clear (CLEAR) 03/21/24 17:30 Urine pH 7 (5-7) 03/21/24 17:30 Ur Specific [place] 1.010 (1.005-1.030) 03/21/24 17:30 Urine Protein Neg (Negative) 03/21/24 17:30 Urine Glucose (UA) Norm (Normal) 03/21/24 17:30 Urine Ketones Negative (Negative) 03/21/24 17:30 Urine Blood Neg (Negative) 03/21/24 17:30 Urine Nitrate Negative (Negative) 03/21/24 17:30 Urine Bilirubin Neg (Negative) 03/21/24 17:30 Urine Urobilinogen Norm mg/dL (Negative) 03/21/24 17:30 Ur Leukocyte Esterase Negative (Negative) 03/21/24 17:30 Salicylates < 0.3 mg/dL (3-10) L 03/21/24 17:48 Urine Opiates Screen Negative ng/mL (Negative) 03/21/24 17:30 Acetaminophen < 5.0 ug/mL (10-30) L 03/21/24 17:48 Ur Barbiturates Screen Negative ng/mL (Negative) 03/21/24 17:30 Ur Phencyclidine Scrn Negative ng/mL (Negative) 03/21/24 17:30 Ur Amphetamines Screen Negative ng/mL (Negative) 03/21/24 17:30 U Benzodiazepines Scrn Negative ng/mL (Negative) 03/21/24 17:30 Urine Cocaine Screen Negative ng/mL (Negative) 03/21/24 17:30 U Marijuana (THC) Screen Negative ng/mL (Negative) 03/21/24 17:30 Ethyl Alcohol < 10 mg/dL (0-10) 03/21/24 17:48 Influenza Type A Ag negative (Negative) 03/21/24 17:45 Influenza Type B Ag negative (Negative) 03/21/24 17:45 RSV Antigen Negative (Negative) 03/21/24 17:45 SARS-CoV-2 Ag (Rapid) negative (Negative) 03/21/24 17:45 No radiology studies performed this visit EKG Data EKG 1: I personally reviewed and interpreted this EKG as follows: EKG interpretation date: 03/21/24 EKG interpretation time: 17:35 Interpretation: nsr hr [address] or t wave abnormalities qrs 132 qtc 413 Discharge Plan Discharge Patient Disposition: Xfer Short-Term Hosp Clinical Impression: Suicidal ideation Condition: Stable Referrals: Raad Bhatt FNP [Nurse Practitioner] - Coding Level of Care Code ED Radio Television Announcer for Chg Kenneth
[2024-03-21 17:48] VITALS: RESP 18; O2SAT 98
[2024-03-21 17:49] LABS: Add Urine Microscopic? NO; Charge for UA Resulting for Rev
[2024-03-21 17:55] LABS: Bilirubin Urine Neg (Negative); Blood Urine Neg (Negative); Glucose Urine UA Norm (Normal); Ketones Urine Negative (Negative); Leukocyte Esterase Urine Negative (Negative); Nitrate Urine Negative (Negative); Protein Urine Neg (Negative); Urine Appearance Clear (CLEAR); Urine Color Yellow (Yellow); Urobilinogen Urine Norm (Negative); pH Urine 7 (5-7)
[2024-03-21 18:02] LABS: Basophils % 0.6 %; Eosinophils # 0.1 10^3/uL (0.0-0.8); Hematocrit 29.4 % (36-47); Lymphocytes # 0.7 10^3/uL (0.8-4.8); Lymphocytes % 9.8 %; Mean Corpuscular HGB Conc 30.6 g/dL (30-55); Mean Corpuscular Hemoglobin 29.5 pg (27-33); Mean Corpuscular Volume 96.4 fl (85-98); Mean Platelet Volume 9.2 fL (7.4-10.4); Monocytes # 0.5 10^3/uL (0.2-0.9); Monocytes % 7.3 %; Neutrophils # 5.73 10^3/uL (1.8-7.7); Neutrophils % 79.7 %; Nucleated Red Blood Cells % 0 %; Platelet Count 251 10^3/cmm (157-399); Red Blood Count 3.05 10^6/uL (3.85-5.65); Red Cell Distribution Width 15.8 % (12.1-15.1); White Blood Count 7.17 10^3/uL (3.29-11.43)
[2024-03-21 18:04] LABS: Amphetamines Screen Urine Negative (Negative); Barbiturates Screen Urine Negative (Negative); Benzodiazepines Screen Urine Negative (Negative); Cocaine Screen Urine Negative (Negative); Opiate Screen Urine Negative (Negative); PCP Screen Urine Negative (Negative); THC Screen Urine Negative (Negative)
[2024-03-21 18:13] LABS: Influenza A by IFA negative (Negative); Influenza B by IFA negative (Negative)
[2024-03-21 18:14] LABS: SARS Covid-2 Antigen negative (Negative)
[2024-03-21 18:26] LABS: Alanine Aminotransferase 9 U/L (0-33); Albumin Level 3.7 g/dL (3.5-5.2); Alkaline Phosphatase 85 U/L (35-105); Anion Gap 14.3 (5-19); Aspartate Amino Transferase 11 U/L (0-32); Blood Urea Nitrogen 14 mg/dL (8-23); Calcium 9.1 mg/dL (8.5-10.5); Carbon Dioxide 24 mmol/L (22-29); Chloride 100 mmol/L (98-107); Creatinine Clr Calc Pharmacy 81.7921; Globulin 3.2 g/dL (1.3-4.6); Glomerular Filtration Rate 99.4 mL/min (90-130); Glucose 117 mg/dL (65-115); Osmolality Calculated 280 mOsm/kg (285-295); Potassium 4.3 mmol/L (3.5-5.1); Sodium 134 mmol/L (136-145); Thyroid Stimulating Hormone 1.99 uIU/mL (0.27-4.20); Total Bilirubin 0.2 mg/dL (0.15-1.2); Total Protein 6.9 g/dL (6.6-8.7)
[2024-03-21 18:29] LABS: Acetaminophen < 5.0 ug/mL (10-30); Alcohol Level < 10 mg/dL (0-10); Salicylate < 0.3 mg/dL (3-10)
[2024-03-21 18:31] LABS: RSV Transfer Patient (ED) Negative (Negative)
[2024-03-21] MEDS: HYDROcodone-acetaminophen 7.5-325 mg Tablet 1 TAB PO (20:57)
[2024-03-21 21:00] VITALS: BP 110/75; PULSE 97; RESP 16; O2SAT 97
--- NOTE | 2024-03-22 06:58 | PC.NURSE ---
assumed care from welder 2nd shift @[id number]
[2024-03-22 07:08] VITALS: BP 112/76; PULSE 87; RESP 16; TEMP 36.1; O2SAT 95
[2024-03-22] MEDS: acetaminophen 500 mg Tablet 1000 MG PO (08:58)
--- NOTE | 2024-03-22 11:30 | XRR_ITS ---
PROCEDURE INFORMATION: Exam: XR Chest Exam date and time: 03/22/2024 11:33 AM Age: 69 years old Clinical indication: Screening exam; Other screening; Prior surgery; Surgery date: 6+ months; Surgery type: Port; Patient HX: History of lung cancer; Additional info: Psych medical clearance TECHNIQUE: Imaging protocol: Radiologic exam of the chest. Views: 1 view. COMPARISON: CT angio chest PE protcl [id number] 09/30/2023 1:22 PM FINDINGS: Tubes, catheters and devices: A left-sided VAD is in good position with the catheter tip in the lower SVC. Lungs: There is atelectasis involving the right apical lung field. Pleural spaces: Unremarkable. No pleural effusion. No pneumothorax. Heart/Mediastinum: Mild cardiomegaly is noted. Bones/joints: Unremarkable. XR/XR chest 1V portable [id number] IMPRESSION: Right apical atelectasis has improved over the past several months
[2024-03-22 14:00] VITALS: BP 103/73; PULSE 96; RESP 18; O2SAT 96
--- NOTE | 2024-03-22 16:02 | PC.NURSE ---
report called to Kanwal De La Fuente RN at [facility]
== END 2024-03-22 19:51 | disposition short-term general hospital (02) ==
PROVIDERS: Emergency Provider Emergency Medicine; PCP Family Medicine
DX: R45.851 Suicidal ideations (principal); E11.9 Type 2 diabetes mellitus without complications; I11.0 Hypertensive heart disease with heart failure; I50.9 Heart failure, unspecified; E66.9 Obesity, unspecified; J44.9 Chronic obstructive pulmonary disease, unspecified; Z87.891 Personal history of nicotine dependence; Z99.81 Dependence on supplemental oxygen
CPT/HCPCS: 36415; 71045; 80053; 80306; 80307; 81003; 84443; 85025; 87426; 87804; 87899; 93005; 99285

== ENCOUNTER 2024-05-29 12:57 | Oncology outpatient (recurring) (ONCR) | payer MEDICARE, MEDICAID, SELFPAY | END 2024-06-05 23:59 | disposition home or self-care (01) | PROVIDERS: PCP Family Medicine; Visit Provider Internal Medicine Medical Oncology | DX: C34.11 Malignant neoplasm of upper lobe, right bronchus or lung (principal) | CPT/HCPCS: 99205 ==

== ENCOUNTER 2024-07-05 10:00 | Oncology outpatient (recurring) (ONCR) | payer MEDICARE, MEDICAID, SELFPAY ==
[2024-06-07 08:48] LABS: Basophils % 0.3 %; Eosinophils # 0.1 10^3/uL (0.0-0.8); Hematocrit 33.7 % (36-47); Lymphocytes # 0.6 10^3/uL (0.8-4.8); Lymphocytes % 10.6 %; Mean Corpuscular HGB Conc 31.8 g/dL (30-55); Mean Corpuscular Hemoglobin 27.2 pg (27-33); Mean Corpuscular Volume 85.8 fl (85-98); Mean Platelet Volume 8.9 fL (7.4-10.4); Monocytes # 0.5 10^3/uL (0.2-0.9); Monocytes % 7.8 %; Neutrophils # 4.66 10^3/uL (1.8-7.7); Neutrophils % 78.8 %; Nucleated Red Blood Cells % 0 %; Platelet Count 240 10^3/cmm (157-399); Red Blood Count 3.93 10^6/uL (3.85-5.65); Red Cell Distribution Width 16.9 % (12.1-15.1); White Blood Count 5.92 10^3/uL (3.29-11.43)
[2024-06-07 09:16] LABS: Alanine Aminotransferase 9 U/L (0-33); Albumin Level 3.6 g/dL (3.5-5.2); Alkaline Phosphatase 108 U/L (35-105); Anion Gap 13.1 (5-19); Aspartate Amino Transferase 10 U/L (0-32); Blood Urea Nitrogen 18 mg/dL (8-23); Calcium 8.9 mg/dL (8.5-10.5); Carbon Dioxide 27 mmol/L (22-29); Chloride 103 mmol/L (98-107); Globulin 2.8 g/dL (1.3-4.6); Glomerular Filtration Rate 71.3 mL/min (90-130); Glucose 109 mg/dL (65-115); Osmolality Calculated 290 mOsm/kg (285-295); Potassium 4.1 mmol/L (3.5-5.1); Sodium 139 mmol/L (136-145); Total Bilirubin 0.2 mg/dL (0.15-1.2); Total Protein 6.4 g/dL (6.6-8.7)
[2024-06-07] MEDS: sodium chloride 0.9% 250 ML 75 ML IV (10:26)
[2024-06-07] MEDS: OLANZapine 5 mg TABLET PO (10:28)
[2024-06-07] MEDS: famotidine 20 mg/2 mL INJ IVP (10:29)
[2024-06-07] MEDS: ondansetron 2 mg/ML SDV 2 mL 8 MG IVP (10:31)
[2024-06-07] MEDS: dexamethasone 4 mg/mL INJ 5 mL 12 MG IV (10:36)
[2024-06-07] MEDS: diphenhydrAMINE 50 mg/mL SDV 1mL 25 MG IVP (10:41)
[2024-06-07] MEDS: fosaprepitant 150 MG in sodium chloride 0.9% 150 ML 300 MG IV (10:50)
[2024-06-07 11:14] VITALS: BP 105/72; PULSE 82; TEMP 36.8; O2SAT 93
[2024-06-07] MEDS: SODIUM CHLORIDE 0.9% IV (11:56)
[2024-06-07] MEDS: CARBOPLATIN IV (11:56)
[2024-06-07] MEDS: [UNRECOGNIZED DRUG - REMARK] 510.75 MG IV (13:24)
[2024-06-07 14:55] VITALS: BP 143/91; PULSE 95; RESP 17; TEMP 36.6; O2SAT 96
[2024-06-08 08:48] VITALS: BP 133/76; PULSE 96; RESP 18; TEMP 37.1; O2SAT 99
[2024-06-08] MEDS: sodium chloride 0.9% 250 ML 75 ML IV (09:01)
[2024-06-08] MEDS: ondansetron 2 mg/ML SDV 2 mL 8 MG IVP (09:03)
[2024-06-08] MEDS: [UNRECOGNIZED DRUG - REMARK] 510.75 MG IV (10:02)
[2024-06-08 11:17] VITALS: BP 133/8; PULSE 88; TEMP 36.8; O2SAT 97
[2024-06-09 09:30] VITALS: BP 124/84; PULSE 94; RESP 16; TEMP 36.9; O2SAT 96
[2024-06-09] MEDS: sodium chloride 0.9% 250 ML 75 ML IV (09:38)
[2024-06-09] MEDS: palonosetron 0.25 mg/5 mL SDV IVP (09:39)
[2024-06-09] MEDS: [UNRECOGNIZED DRUG - REMARK] 510.75 MG IV (10:07)
[2024-06-09 11:44] VITALS: BP 140/94; PULSE 96; RESP 18; TEMP 36.3; O2SAT 99
[2024-06-14 09:47] LABS: Basophils # 0.1 10^3/uL (0.0-0.1); Eosinophils # 0.1 10^3/uL (0.0-0.8); Mean Corpuscular Hemoglobin 27.1 pg (27-33); Nucleated Red Blood Cells % 0 %
[2024-06-14 10:05] LABS: Alanine Aminotransferase 10 U/L (0-33); Albumin Level 3.6 g/dL (3.5-5.2); Alkaline Phosphatase 105 U/L (35-105); Aspartate Amino Transferase 11 U/L (0-32); Blood Urea Nitrogen 14 mg/dL (8-23); Calcium 8.3 mg/dL (8.5-10.5); Carbon Dioxide 26 mmol/L (22-29); Chloride 103 mmol/L (98-107); Globulin 2.6 g/dL (1.3-4.6); Glomerular Filtration Rate 99.4 mL/min (90-130); Glucose 133 mg/dL (65-115); Osmolality Calculated 286 mOsm/kg (285-295); Sodium 137 mmol/L (136-145); Total Bilirubin 0.2 mg/dL (0.15-1.2); Total Protein 6.2 g/dL (6.6-8.7)
[2024-06-14 16:27] LABS: Hematocrit 31.5 % (36-47); Mean Corpuscular Volume 87.3 fl (85-98); Red Blood Count 3.61 10^6/uL (3.85-5.65); White Blood Count 3.56 10^3/uL (3.29-11.43)
[2024-06-14 16:28] LABS: Mean Corpuscular HGB Conc 31.1 g/dL (30-55); Mean Platelet Volume 9.6 fL (7.4-10.4); Platelet Count 198 10^3/cmm (157-399)
[2024-06-14 16:29] LABS: Basophils % 1.7 %; Eosinophils % 2.2 %; Lymphocytes # 0.4 10^3/uL (0.8-4.8); Lymphocytes % 12.4 %; Monocytes # 0.1 10^3/uL (0.2-0.9); Monocytes % 1.7 %; Neutrophils # 2.83 10^3/uL (1.8-7.7); Neutrophils % 79.5 %
[2024-06-15 13:58] LABS: Magnesium 1.9 mg/dL (1.7-2.3)
[2024-06-19 10:23] LABS: Basophils % 0.7 %; Eosinophils % 2.9 %; Hematocrit 28.3 % (36-47); Lymphocytes # 0.5 10^3/uL (0.8-4.8); Lymphocytes % 35.8 %; Mean Corpuscular HGB Conc 30.4 g/dL (30-55); Mean Corpuscular Hemoglobin 26.1 pg (27-33); Mean Corpuscular Volume 85.8 fl (85-98); Mean Platelet Volume 9.1 fL (7.4-10.4); Monocytes # 0.1 10^3/uL (0.2-0.9); Monocytes % 5.8 %; Neutrophils % 54.1 %; Nucleated Red Blood Cells % 0 %; Platelet Count 37 10^3/cmm (157-399); Red Cell Distribution Width 15.8 % (12.1-15.1); White Blood Count 1.37 10^3/uL (3.29-11.43)
[2024-06-19 10:44] LABS: Neutrophils # 0.74 10^3/uL (1.8-7.7)
[2024-06-19 10:54] LABS: Alanine Aminotransferase 9 U/L (0-33); Albumin Level 3.6 g/dL (3.5-5.2); Alkaline Phosphatase 116 U/L (35-105); Anion Gap 12.1 (5-19); Aspartate Amino Transferase 8 U/L (0-32); Blood Urea Nitrogen 14 mg/dL (8-23); Calcium 8.3 mg/dL (8.5-10.5); Carbon Dioxide 26 mmol/L (22-29); Chloride 105 mmol/L (98-107); Globulin 2.3 g/dL (1.3-4.6); Glomerular Filtration Rate 99.4 mL/min (90-130); Glucose 175 mg/dL (65-115); Osmolality Calculated 293 mOsm/kg (285-295); Potassium 4.1 mmol/L (3.5-5.1); Sodium 139 mmol/L (136-145); Total Bilirubin 0.2 mg/dL (0.15-1.2); Total Protein 5.9 g/dL (6.6-8.7)
[2024-06-22 10:37] LABS: Eosinophils # 0.1 10^3/uL (0.0-0.8); Eosinophils % 5.8 %; Hematocrit 27.5 % (36-47); Lymphocytes # 0.5 10^3/uL (0.8-4.8); Lymphocytes % 45.2 %; Mean Corpuscular HGB Conc 31.6 g/dL (30-55); Mean Corpuscular Hemoglobin 26.6 pg (27-33); Mean Corpuscular Volume 84.1 fl (85-98); Mean Platelet Volume 8.8 fL (7.4-10.4); Monocytes # 0.2 10^3/uL (0.2-0.9); Monocytes % 17.3 %; Neutrophils % 31.7 %; Nucleated Red Blood Cells % 0 %; Red Blood Count 3.27 10^6/uL (3.85-5.65); Red Cell Distribution Width 15.9 % (12.1-15.1); White Blood Count 1.04 10^3/uL (3.29-11.43)
[2024-06-22 11:05] LABS: Neutrophils # 0.33 10^3/uL (1.8-7.7); Platelet Count 15 10^3/cmm (157-399); Slide Review Slide Review Perform
[2024-06-22] MEDS: filgrastim-sndz 480 mcg/0.8 mL Syringe SUBCUT (14:20)
[2024-06-23] MEDS: filgrastim-sndz 480 mcg/0.8 mL Syringe SUBCUT (10:09)
[2024-06-26 10:25] LABS: Basophils % 0.3 %; Eosinophils % 0.9 %; Hematocrit 28.6 % (36-47); Lymphocytes # 0.6 10^3/uL (0.8-4.8); Mean Corpuscular HGB Conc 31.5 g/dL (30-55); Mean Corpuscular Hemoglobin 26.5 pg (27-33); Mean Corpuscular Volume 84.4 fl (85-98); Mean Platelet Volume 9.8 fL (7.4-10.4); Monocytes # 0.5 10^3/uL (0.2-0.9); Monocytes % 14.3 %; Neutrophils # 2.18 10^3/uL (1.8-7.7); Neutrophils % 66.3 %; Nucleated Red Blood Cells % 0 %; Platelet Count 30 10^3/cmm (157-399); Red Blood Count 3.39 10^6/uL (3.85-5.65); Red Cell Distribution Width 16.1 % (12.1-15.1); White Blood Count 3.29 10^3/uL (3.29-11.43)
[2024-06-26 10:42] LABS: Alanine Aminotransferase 9 U/L (0-33); Albumin Level 3.9 g/dL (3.5-5.2); Alkaline Phosphatase 132 U/L (35-105); Anion Gap 11.6 (5-19); Aspartate Amino Transferase 10 U/L (0-32); Blood Urea Nitrogen 13 mg/dL (8-23); Calcium 8.8 mg/dL (8.5-10.5); Carbon Dioxide 26 mmol/L (22-29); Chloride 99 mmol/L (98-107); Globulin 2.6 g/dL (1.3-4.6); Glomerular Filtration Rate 99.4 mL/min (90-130); Glucose 148 mg/dL (65-115); Osmolality Calculated 279 mOsm/kg (285-295); Potassium 3.6 mmol/L (3.5-5.1); Sodium 133 mmol/L (136-145); Total Bilirubin 0.2 mg/dL (0.15-1.2); Total Protein 6.5 g/dL (6.6-8.7)
[2024-07-03 08:06] LABS: Basophils % 0.4 %; Eosinophils % 0.6 %; Lymphocytes # 0.5 10^3/uL (0.8-4.8); Lymphocytes % 11.2 %; Mean Corpuscular HGB Conc 32.1 g/dL (30-55); Mean Corpuscular Hemoglobin 27.7 pg (27-33); Mean Corpuscular Volume 86.2 fl (85-98); Mean Platelet Volume 9.7 fL (7.4-10.4); Monocytes # 0.4 10^3/uL (0.2-0.9); Monocytes % 7.6 %; Neutrophils # 3.67 10^3/uL (1.8-7.7); Neutrophils % 79.3 %; Nucleated Red Blood Cells % 0 %; Platelet Count 175 10^3/cmm (157-399); Red Blood Count 3.25 10^6/uL (3.85-5.65); Red Cell Distribution Width 18.8 % (12.1-15.1); White Blood Count 4.63 10^3/uL (3.29-11.43)
[2024-07-03 08:35] LABS: Alanine Aminotransferase 8 U/L (0-33); Albumin Level 3.7 g/dL (3.5-5.2); Alkaline Phosphatase 134 U/L (35-105); Anion Gap 13.7 (5-19); Aspartate Amino Transferase 9 U/L (0-32); Blood Urea Nitrogen 13 mg/dL (8-23); Calcium 8.5 mg/dL (8.5-10.5); Carbon Dioxide 25 mmol/L (22-29); Chloride 100 mmol/L (98-107); Creatinine Clr Calc Pharmacy 82.1776; Globulin 2.7 g/dL (1.3-4.6); Glomerular Filtration Rate 122.7 mL/min (90-130); Glucose 124 mg/dL (65-115); Osmolality Calculated 282 mOsm/kg (285-295); Potassium 3.7 mmol/L (3.5-5.1); Sodium 135 mmol/L (136-145); Total Bilirubin 0.3 mg/dL (0.15-1.2); Total Protein 6.4 g/dL (6.6-8.7)
[2024-07-03] MEDS: sodium chloride 0.9% 250 ML 75 ML IV (11:04)
[2024-07-03] MEDS: acetaminophen 325 mg Tablet 650 MG PO (11:04)
[2024-07-03] MEDS: OLANZapine 5 mg TABLET PO (11:04)
[2024-07-03] MEDS: aprepitant 130 mg/18 ml SDV IVP (11:04)
[2024-07-03] MEDS: dexamethasone 4 mg/mL INJ 5 mL 12 MG IV (11:09)
[2024-07-03] MEDS: ondansetron 2 mg/ML SDV 2 mL 8 MG IVP (11:12)
[2024-07-03] MEDS: famotidine 20 mg/2 mL INJ IVP (11:16)
[2024-07-03] MEDS: diphenhydrAMINE 50 mg/mL SDV 1mL 25 MG IVP (11:18)
[2024-07-03] MEDS: etoposide 170 MG in sodium chloride 0.9%(non-DEHP) 500 ML 508.5 MG IV (12:54)
[2024-07-03 14:10] VITALS: BP 123/81; PULSE 83; RESP 17; TEMP 36.1; O2SAT 94
[2024-07-04] MEDS: ondansetron 2 mg/ML SDV 2 mL 8 MG IVP (11:50)
[2024-07-04] MEDS: etoposide 170 MG in sodium chloride 0.9%(non-DEHP) 500 ML 508.5 MG IV (12:08)
[2024-07-04 13:20] VITALS: BP 121/76; PULSE 94; RESP 16; TEMP 36.9; O2SAT 96
[2024-07-05] MEDS: palonosetron 0.25 mg/5 mL SDV IVP (11:22)
[2024-07-05] MEDS: sodium chloride 0.9% 250 ML 75 ML IV (11:22)
[2024-07-05] MEDS: etoposide 170 MG in sodium chloride 0.9%(non-DEHP) 500 ML 508.5 MG IV (11:53)
[2024-07-05] MEDS: pegfilgrastim 6 mg/0.6 mL Kit (onpro) SUBCUT (13:06)
[2024-07-05 13:10] VITALS: BP 126/85; PULSE 86; TEMP 36.6; O2SAT 99
== END 2024-07-05 23:59 | disposition home or self-care (01) ==
PROVIDERS: Nurse Practitioner Family; Absent Provider Nurse Practitioner Family; Visit Provider Internal Medicine Hematology & Oncology
DX: Z51.11 Encounter for antineoplastic chemotherapy (principal); Z53.9 Procedure and treatment not carried out, unspecified reason; C34.11 Malignant neoplasm of upper lobe, right bronchus or lung; D70.1 Agranulocytosis secondary to cancer chemotherapy
CPT/HCPCS: 36591; 80053; 83735; 85025; 96367; 96372; 96375; 96377; 96401; 96413; 96417; 99214; 99215; J0185; J1100; J1200; J1453; J2405; J2469; J2506; J3490; J7030; J7040; J7050; J9045; J9181; Q5101

== ENCOUNTER 2024-07-06 15:36 | Oncology outpatient (recurring) (ONCR) | payer MEDICARE, MEDICAID, SELFPAY ==
[2024-07-06] MEDS: pegfilgrastim 6 mg/0.6 mL Kit (onpro) SUBCUT (16:38)
--- NOTE | 2024-07-06 16:44 | PC.NURSE ---
Pt in infusion room due to neulasta onpro coming off before infusion. Onpro is currently infusing in ziplock bag. Spoke with pharmacist Lluvia, states to give pt injection out of a new neulasta onpro and pt will be credited back for one.
== END 2024-07-06 23:59 | disposition home or self-care (01) ==
LOC: ONCMED 15:36
PROVIDERS: Absent Provider Nurse Practitioner Family; Visit Provider Internal Medicine Hematology & Oncology
DX: Z53.9 Procedure and treatment not carried out, unspecified reason (principal); C34.11 Malignant neoplasm of upper lobe, right bronchus or lung; Z79.899 Other long term (current) drug therapy; Z51.11 Encounter for antineoplastic chemotherapy; Z79.52 Long term (current) use of systemic steroids
CPT/HCPCS: 96377; J2506

== ENCOUNTER 2024-07-12 10:46 | Inpatient (IN) | payer MEDICARE, MEDICAID, SELFPAY ==
[2024-07-12] VITALS (23 sets, daily range): BP systolic 106–172; BP diastolic 69–106; PULSE 79–97; RESP 15–27; TEMP 36.4–36.8; O2SAT 90–97
--- NOTE | 2024-07-12 10:49 | XR_ITS ---
WS: [id number] XR chest 1V portable [id number] REASON FOR EXAM: sob FINDINGS: Left chemotherapy infusion port with left internal jugular infusion catheter. The atelectasis of the right upper lobe has partially since 03/22/2024. There still appears to be a large central/mediastinal mass associated with the right hilum with narro wing of the right upper lobe bronchus. Compared to the previous examination of 03/22/2024 there are reticular and oblique linear opacities in the left lower lung which could represent atelectasis however a subacute pneumonitis is not excluded . XR/XR chest 1V portable [id number] IMPRESSION: Right chest neoplasm with increased expansion of the right upper lobe compared to the previous examination. Interval left lung base changes which could represent a subacute pneumonitis.
--- NOTE | 2024-07-12 11:03 | ECG_ITS ---
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 Measurements Intervals [place] Rate: 87 P: 71 WV: 152 QRS: 85 QRSD: 135 T: 57 QT: 374 QTc: 451 Interpretive Statements SINUS RHYTHM RIGHT BUNDLE BRANCH BLOCK [120+ ms QRS DURATION, UPRIGHT V1, 40+ ms S IN I/aVL/V4/V5/V6] Compared to ECG 03/21/2024 17:35:30 No significant changes Electronically Signed On 07-13-2024 21:19:10 CAR SALES ASSOCIATE by Marisa Butterfield M.D. [id number]
[2024-07-12 11:21] LABS: ABG PCO2 43.7 mmHg (35-45); ABG PH Result 7.42 (7.35-7.45); Arterial Blood Gas Hematocrit 25.1 % (37-47); Base Excess ABG 3.1 mmol/L (-2.0-2.0); Blood Gas Allen Test Pos; Blood Gas Sample Type Arterial; Carboxyhemoglobin 2.6 %THgb (0.4-20.1); HGB O2 Sat 87.7 % (95-100); Ionized Calcium Level - ABG 1.2 mmol/L (1.1-1.4); Methemoglobin 0.5 % (0.4-1.5); Oxygen Saturation ABG 90.5; PO2 ABG 57.8 mmHg (80.0-100.0); Potassium Level - ABG 4.1 mmol/L (3.5-5.0); Total Hemoglobin 8.2 g/dL (12-16)
[2024-07-12 11:22] LABS: Alveolar-Arterial Oxygen Gradi 20.8 mmHg (5-10); Blood Gas LPM 4.5 %; Blood Gas Operator Identificat CAK; Blood Gas Sample Site Radial, left; Oxygen Device NC; PO2 FiO2 Ratio Arterial Blood 152
[2024-07-12 11:26] LABS: Basophils # 0.1 10^3/uL (0.0-0.1); Basophils % 1.3 %; Eosinophils % 0.2 %; Hematocrit 26.5 % (36-47); Lymphocytes # 0.4 10^3/uL (0.8-4.8); Lymphocytes % 9.8 %; Mean Corpuscular HGB Conc 30.9 g/dL (30-55); Mean Corpuscular Hemoglobin 26.8 pg (27-33); Mean Corpuscular Volume 86.6 fl (85-98); Mean Platelet Volume 10.1 fL (7.4-10.4); Monocytes # 0.8 10^3/uL (0.2-0.9); Monocytes % 17.2 %; Neutrophils # 3.15 10^3/uL (1.8-7.7); Neutrophils % 70.4 %; Nucleated Red Blood Cells % 0 %; Platelet Count 117 10^3/cmm (157-399); Red Blood Count 3.06 10^6/uL (3.85-5.65); Red Cell Distribution Width 19.8 % (12.1-15.1); White Blood Count 4.48 10^3/uL (3.29-11.43)
[2024-07-12 11:43] LABS: Lactic Sepsis W/Reflex 2.1 mmol/L (0.5-2.2)
--- NOTE | 2024-07-12 11:43 | ED_ITS ---
HPI - SOB/Dyspnea 2 General: Chief Complaint: Shortness of Breath/Dyspnea Stated Complaint: Extreme SOB/wet lungs (sent by clinic) Time Seen by Provider: 07/12/24 10:56 History of Present Illness: HPI Narrative: 69-year-old female with history of small cell lung cancer, tobacco dependence, PTSD, bipolar, depression, COPD, CHF, diabetes, chronic hypoxemic respiratory failure on 4 L nasal cannula at all times who presents to the emergency room with worsening shortness of breath from oncology clinic. She has had worsening swelling. Says no worsening cough than usual. She has had increased oxygen requirements. No fevers. No altered mental status. No chest pain. No abdominal pain. She says swelling in her legs is quite a bit worse than normal. Related Data Home Medications Medication Instructions Recorded Confirmed aspirin 81 mg tablet,delayed 81 mg PO DAILY 10/17/19 07/03/24 release cholecalciferol (vitamin D3) 125 125 mcg PO DAILY 08/02/23 07/03/24 mcg (5,000 unit) capsule insulin lispro 100 unit/mL See Rx Instructions SUBCUT TID 08/02/23 07/03/24 subcutaneous pen (Humalog KwikPen (U-100) Insulin) loratadine 10 mg tablet (Allergy 10 mg PO DAILY 08/02/23 07/03/24 Relief (loratadine)) magnesium oxide 500 mg capsule 500 mg PO DAILY 08/02/23 07/03/24 ubrogepant 50 mg tablet (Ubrelvy) 50 mg PO DAILY PRN Migraine 08/02/23 07/03/24 Headache dulaglutide 3 mg/0.5 mL 3 mg SUBCUT Q7D 03/22/24 07/03/24 subcutaneous pen injector (Trulicity) levothyroxine 25 mcg tablet 25 mcg PO QAM 03/22/24 07/03/24 metoprolol tartrate 25 mg tablet 25 mg PO DAILY 03/22/24 07/03/24 prochlorperazine maleate 10 mg 10 mg PO Q6H PRN Nausea 03/22/24 07/03/24 tablet venlafaxine 75 mg tablet 75 mg PO DAILY 04/10/24 07/03/24 docusate sodium 100 mg capsule See Rx Instructions .Route .COMPLEX 05/29/24 07/03/24 (Colace) doxepin 25 mg capsule 50 mg .Route .COMPLEX 05/29/24 07/03/24 latanoprost 0.005 % eye drops drp ophthalmic (eye) 05/29/24 07/03/24 gabapentin 100 mg capsule mg PO 06/07/24 07/03/24 Previous Rx's Medication Instructions Recorded blood-glucose meter #1 ea 08/19/23 lancets #200 ea 08/19/23 losartan 100 mg tablet 100 mg PO DAILY 90 days #90 tabs 11/03/23 bumetanide 1 mg tablet 1 mg PO DAILY #30 tabs 11/05/23 atorvastatin 10 mg tablet 10 mg PO DAILY 90 days #90 tabs 01/05/24 lancets 33 gauge (OneTouch Delica #100 ea 02/07/24 Plus Lancet) potassium chloride 20 mEq See Rx Instructions .Route 04/19/24 tablet,extended release(part/cryst) .COMPLEX #90 tabs amlodipine 5 mg tablet See Rx Instructions .Route 04/21/24 .COMPLEX #90 tabs blood sugar diagnostic (OneTouch #200 ea 06/05/24 Ultra Test strips) lorazepam 1 mg tablet 0.5 - 1 mg (0.5 - 1 x 1 mg) PO Q6H 06/07/24 PRN Severe Nausea #30 tabs olanzapine 5 mg tablet 5 mg PO QPM Breakthrough Nausea 06/07/24 and Vomitting #30 tabs prochlorperazine maleate 10 mg 10 mg PO Q4H PRN Mild Nausea #30 06/07/24 tablet (Compazine) tabs levofloxacin 500 mg tablet 500 mg PO DAILY #7 tabs 06/19/24 pantoprazole 40 mg tablet,delayed See Rx Instructions .Route 06/29/24 release .COMPLEX #90 tabs lorazepam 1 mg tablet 0.5 - 1 mg (0.5 - 1 x 1 mg) PO Q6H 07/03/24 PRN Severe Nausea #30 tabs olanzapine 5 mg tablet 5 mg PO QPM Breakthrough Nausea 07/03/24 and Vomitting #30 tabs Allergies Allergy/AdvReac Type Severity Reaction Status Date / Time codeine Allergy Unknown Unknown Verified 07/03/24 08:09 ketorolac [From Toradol] Allergy Unknown Verified 07/03/24 08:09 melatonin Allergy Unknown Verified 07/03/24 08:09 Review of Systems 2 Narrative: Constitutional symptoms: Negative except as documented in HPI. Skin symptoms: Negative except as documented in HPI. Eye symptoms: Negative except as documented in HPI. ENMT symptoms: Negative except as documented in HPI. Respiratory symptoms: Negative except as documented in HPI. Cardiovascular symptoms: Negative except as documented in HPI. Gastrointestinal symptoms: Negative except as documented in HPI. Genitourinary symptoms: Negative except as documented in HPI. Musculoskeletal symptoms: Negative except as documented in HPI. Neurologic symptoms: Negative except as documented in HPI. Psychiatric symptoms: Negative except as documented in HPI. Endocrine symptoms: Negative except as documented in HPI. PFSH ED 2 PFSH: Medical History Bipolar affect, depressed Bipolar disorder current episode depressed CHF (congestive heart failure) COPD (chronic obstructive pulmonary disease) 3L o2 , mild to mod copd responsive to bronchodilator Depression Diabetes Duodenitis Enrolled in chronic care management Gastritis GERD (gastroesophageal reflux disease) History of attempted suicide Hypertension Hypothyroidism (acquired) Nicotine use disorder Obesity Oxygen dependent Psychiatric care PTSD (post-traumatic stress disorder) Sleep apnea Small cell lung cancer Surgical History H/O colonoscopy with polypectomy H/O esophagogastroduodenoscopy History of appendectomy S/P cholecystectomy Tubal ligation status Family History Father Lung cancer Sister Ovarian cancer Mother Diabetes Other CAD (coronary artery disease) Social History Smoking and tobacco/nicotine status: former use of tobacco/nicotine Alcohol intake: former Year of sobriety/quit date alcohol: 1999 Substance/Drug Use: never Adopted: No Caregiver/support person: No Lives independently: No Household members: family Housing: House Current gender identity: Female Physical Exam 2 Narrative: EXAM NARRATIVE: General: Alert, no acute distress. Skin: Warm, dry. Head: Normocephalic, atraumatic. Neck: Supple, trachea midline. Eye: Extraocular movements are intact. Ears, nose, mouth and throat: Oral mucosa moist. Cardiovascular: Regular rate and rhythm, Normal peripheral perfusion. 3+ swelling of the legs to the thighs. Respiratory: coarse, scattered wheeze, mild increased wob. tachypnea, breath sounds are equal, Symmetrical chest wall expansion. Gastrointestinal: Soft, Nontender, Non distended, Normal bowel sounds. Musculoskeletal: Normal ROM, no deformity. Neurological: Alert and oriented to person, place, time, and situation, No focal neurological deficit observed. Psychiatric: Cooperative, appropriate mood & affect. Course 2 Vital Signs: Vital signs: Vital Signs Temperature 98.2 F 07/12/24 11:04 Pulse Rate 88 07/12/24 12:18 Respiratory Rate 16 07/12/24 12:11 Blood Pressure 123/86 07/12/24 11:24 Pulse Oximetry 95 07/12/24 12:11 Oxygen Delivery Me thod Nasal Cannula 07/12/24 12:11 Oxygen Flow Rate 4.5 07/12/24 12:11 MDM - SOB/Dyspnea Medical Decision Making Differential diagnosis for patient with shortness of breath includes but is not limited to and based on the above HPI, review of systems and physical exam: Pneumonia. Bronchitis. Asthma or COPD with acute exacerbation. Acute coronary syndrome / NE. Pulmonary embolism. Anxiety. Congestive heart failure. Viral infections including influenza and Covid-19. Atrial fibrillation. Anxiety. Pleural effusion. Pneumothorax. Orders placed to evaluate differential diagnosis based on the above differential, HPI and physical exam EKG: Time 1103. Rate 87. Normal sinus rhythm, No ST-T changes, no ectopy, right bundle branch block, This was reviewed and interpreted by myself the ER physician at 11:05 AM Chest x-ray: Neoplasm in the right chest that is present before appears somewhat bigger. Lung base changes which could represent acute pneumonitis. This was reviewed and interpreted by myself the emergency room physician. I also reviewed the radiology report. Lab Review: Laboratory results were reviewed and interpreted by myself the emergency room physician. No leukocytosis. Stable anemia with a hemoglobin of 8.2. Platelets are little low at 117. BUN and creatinine are normal at 111 and 0.5. proBNP is slightly elevated at 589. There is no comparisons. Lactate is normal. Liver enzymes are normal. I reviewed the patient's medical record. Reexamination: Patient is less tachypneic at rest. She still has coarse lung sounds and some scattered wheeze after breathing treatments. Still requiring more oxygen than at home. Consultation: I spoke with Dr. Odell who is on-call for the hospitalist service who agrees to admission. An ultrasound of the lower extremities is being ordered at his request. Assessment and plan: Acute on chronic hypoxemic respiratory failure COPD with acute exacerbation Edema Lung cancer ?IV doxycycline, IV Solu-Medrol, IV Lasix and 2 updrafts were given in the emergency room. -I discussed the patient with the hospitalist on-call who is admitting the patient. - Discussed findings and plan with patient. Answered any questions. - All laboratory values were reviewed and interpreted personally by myself, the ER physician - All imaging was reviewed and interpreted personally by myself, the ER physician. - Evaluation and treatment of this problem were appropriate in the emergency setting Critical care -I spent a total of >35 minutes of critical care time managing the patient, independent of any other practitioner. -The time involved in the performance of separately reportable procedures was not counted towards critical care time. Lab Data 07/12/24 11:10 07/12/24 11:10 Labs/Radiology: Radiology Impressions Chest X-Ray 07/12/24 10:49 IMPRESSION: Right chest neoplasm with increased expansion of the right upper lobe compared to the previous examination. Interval left lung base changes which could represent a subacute pneumonitis. Laboratory Results WBC 4.48 10^3/uL (3.29-11.43) 07/12/24 11:10 RBC 3.06 10^6/uL (3.85-5.65) L 07/12/24 11:10 Hgb 8.20 g/dL (11.27-16.99) L 07/12/24 11:10 Hct 26.5 % (36-47) L 07/12/24 11:10 MCV 86.6 fl (85-98) 07/12/24 11:10 MCH 26.8 pg (27-33) L 07/12/24 11:10 MCHC 30.9 g/dL (30-55) 07/12/24 11:10 RDW 19.8 % (12.1-15.1) H 07/12/24 11:10 Plt Count 117 10^3/cmm (157-399) L 07/12/24 11:10 MPV 10.1 fL (7.4-10.4) 07/12/24 11:10 Neut % (Auto) 70.4 % 07/12/24 11:10 Lymph % (Auto) 9.8 % 07/12/24 11:10 Titus % (Auto) 17.2 % 07/12/24 11:10 Eos % (Auto) 0.2 % 07/12/24 11:10 Baso % (Auto) 1.3 % 07/12/24 11:10 Neut # (Auto) 3.15 10^3/uL (1.8-7.7) 07/12/24 11:10 Lymph # (Auto) 0.4 10^3/uL (0.8-4.8) L 07/12/24 11:10 [place] # (Auto) 0.8 10^3/uL (0.2-0.9) 07/12/24 11:10 Eos # (Auto) 0.0 10^3/uL (0.0-0.8) 07/12/24 11:10 Baso # (Auto) 0.1 10^3/uL (0.0-0.1) 07/12/24 11:10 Nucleated RBC % (auto) 0 % 07/12/24 11:10 Nucleated RBCs # 0.0 /100WBC 07/12/24 11:10 Specimen Type Arterial 07/12/24 11:10 Sample Site Radial, left 07/12/24 11:10 ABG pH 7.42 (7.35-7.45) 07/12/24 11:10 ABG pCO2 43.7 mmHg (35-45) 07/12/24 11:10 ABG pO2 57.8 mmHg (80.0-100.0) L 07/12/24 11:10 ABG PO2/FiO2 Ratio 152 07/12/24 11:10 ABG HCO3 28.0 mmol/L (22-26) H 07/12/24 11:10 ABG O2 Saturation 90.5 07/12/24 11:10 ABG Base Excess 3.1 mmol/L (-2.0-2.0) H 07/12/24 11:10 Leonel Test Pos 07/12/24 11:10 A-a O2 Gradient 20.8 mmHg (5-10) H 07/12/24 11:10 Hematocrit 25.1 % (37-47) L 07/12/24 11:10 Hgb O2 Saturation 87.7 % (95-100) L 07/12/24 11:10 Carboxyhemoglobin 2.6 %THgb (0.4-20.1) 07/12/24 11:10 Methemoglobin 0.5 % (0.4-1.5) 07/12/24 11:10 Total Hemoglobin 8.2 g/dL (12-16) L 07/12/24 11:10 Sodium 139.0 mmol/L (131-143) 07/12/24 11:10 Potassium 4.1 mmol/L (3.5-5.0) 07/12/24 11:10 Glucose 126.0 mg/dL (70-115) H 07/12/24 11:10 Ionized Calcium 1.2 mmol/L (1.1-1.4) 07/12/24 11:10 O2 Delivery Device Nc 07/12/24 11:10 O2 Liters/Min 4.5 % 07/12/24 11:10 FiO2 38.0 % 07/12/24 11:10 Outreach Librarian ID Cak 07/12/24 11:10 Sodium 139 mmol/L (136-145) 07/12/24 11:10 Potassium 4.4 mmol/L (3.5-5.1) 07/12/24 11:10 Chloride 102 mmol/L (98-107) 07/12/24 11:10 Carbon Dioxide 25 mmol/L (22-29) 07/12/24 11:10 Anion Gap 16.4 (5-19) 07/12/24 11:10 BUN 11 mg/dL (8-23) 07/12/24 11:10 Creatinine 0.5 mg/dL (0.5-0.9) 07/12/24 11:10 GFR Calculation 122.7 mL/min (90-130) 07/12/24 11:10 Glucose 129 mg/dL (65-115) H 07/12/24 11:10 Calculated Osmolality 289 mOsm/kg (285-295) 07/12/24 11:10 Lactic Acid 2.1 mmol/L (0.5-2.2) 07/12/24 11:10 Calcium 8.5 mg/dL (8.5-10.5) 07/12/24 11:10 Total Bilirubin 0.2 mg/dL (0.15-1.2) 07/12/24 11:10 AST 12 U/L (0-32) 07/12/24 11:10 ALT 10 U/L (0-33) 07/12/24 11:10 Alkaline Phosphatase 165 U/L (35-105) H 07/12/24 11:10 Troponin T Baseline 7 ng/L (0-10) 07/12/24 11:10 NT-Pro-B Natriuret Pep 589 pg/mL (0-125) H 07/12/24 11:10 Total Protein 6.0 g/dL (6.6-8.7) L 07/12/24 11:10 Albumin 4.0 g/dL (3.5-5.2) 07/12/24 11:10 Globulin 2.0 g/dL (1.3-4.6) 07/12/24 11:10 Coronavirus (PCR) Negative (Negative) 07/12/24 11:17 Influenza A (PCR) Negative (Negative) 07/12/24 11:17 Influenza Type B (PCR) Negative (Negative) 07/12/24 11:17 RSV (PCR) Negative (Negative) 07/12/24 11:17 All radiology interpretation(s) finalized by discharge Discharge Plan Discharge Patient Disposition: Admitted As Inpatient Clinical Impression: Acute on chronic hypoxic respiratory failure, 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
[2024-07-12 11:44] LABS: Troponin(5th) Baseline 7 ng/L (0-10)
[2024-07-12 12:00] LABS: Alanine Aminotransferase 10 U/L (0-33); Alkaline Phosphatase 165 U/L (35-105); Anion Gap 16.4 (5-19); Aspartate Amino Transferase 12 U/L (0-32); Blood Urea Nitrogen 11 mg/dL (8-23); Calcium 8.5 mg/dL (8.5-10.5); Carbon Dioxide 25 mmol/L (22-29); Chloride 102 mmol/L (98-107); Creatinine Clr Calc Pharmacy 83.1415; Glomerular Filtration Rate 122.7 mL/min (90-130); Glucose 129 mg/dL (65-115); NT Pro B Type Natriuretic Pept 589 pg/mL (0-125); Osmolality Calculated 289 mOsm/kg (285-295); Potassium 4.4 mmol/L (3.5-5.1); Sodium 139 mmol/L (136-145); Total Bilirubin 0.2 mg/dL (0.15-1.2)
[2024-07-12] MEDS: ipratropium-albuterol 3 mL Neb INHALATION ×4 (12:10→23:32)
[2024-07-12] MEDS: methylPREDNISolone sod succ 125 mg/2 mL INJ IVP (12:23)
--- NOTE | 2024-07-12 12:24 | USCV_ITS ---
Marli Eli Age: 69 Gender: F : 1955 Exam Date: 07/12/2024 13:24 Ordering Phys: Sarah Calvillo MD Technologist: Exam Location: [facility] [place] Indication: ? pe PROCEDURES: The venous duplex Doppler examination of both lower extremities was performed in the standard fashion. The following venous structures were evaluated: common femoral vein, profunda vein, proximal portion of the greater saphenous vein, superficial femoral vein, and the popliteal vein. Bilaterally, the common femoral, superficial femoral, profunda femoral, popliteal, posterior tibial, greater saphenous veins, and the peroneal trunk were identified and interrogated in the standard fashion. These veins were found to be easily compressible with spontaneous blood flow. No evidence of insufficiency or thrombus noted. FINDINGS: Normal 2-D Doppler and augmentation and compressibility throughout the lower extremity venous structures. Additional imaging through the proximal calf veins also reveals no thrombus. Limited evaluation of the greater saphenous vein is patent with no thrombus. CONCLUSIONS No evidence of right lower extremity DVT. No evidence of left lower extremity DVT. rFedi Shafer MD (Electronically Signed) Final Date: 12 July 2024 16:14 S
[2024-07-12] MEDS: FUROsemide 10 mg/mL SDV 10mL 60 MG IVP (12:25)
[2024-07-12] MEDS: doxycycline 100 MG in sodium chloride 0.9% (plus) 100 ML IV (12:29)
[2024-07-12 12:42] LABS: Covid PCR NEGATIVE (Negative); Influenza A NEGATIVE (Negative); Influenza B NEGATIVE (Negative); Respiratory Syncytial Virus Ce NEGATIVE (Negative)
--- NOTE | 2024-07-12 13:05 | ECG_ITS ---
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
[2024-07-12 13:11] LABS: Reflex Lactate Order REFLEX LACTIC ORDERD
--- NOTE | 2024-07-12 13:46 | CTR_ITS ---
PROCEDURE INFORMATION: Exam: CTA Chest With Contrast Exam date and time: 07/12/2024 2:30 PM Age: 69 years old Clinical indication: Shortness of breath; Additional info: SOB TECHNIQUE: Imaging protocol: Computed tomographic angiography of the chest with contrast. Exam focused on the arteries. 3D rendering (Not supervised by radiologist): MIP and/or 3D reconstructed images were created by the technologist. Radiation optimization: All CT scans at this facility use at least one of these dose optimization techniques: automated exposure control; mA and/or kV adjustment per patient size (includes targeted exams where dose is matched to clinical indication); or iterative reconstruction. Contrast material: OMNI 350; Contrast volume: 100 ml; Contrast route: INTRAVENOUS (IV); COMPARISON: CT angio chest PE protcl [id number] 09/30/2023 1:22 PM RADIATION DOSE METRICS: Total DLP (mGy-cm): 490.92 FINDINGS: Pulmonary arteries: There are no abnormal filling defects within the pulmonary arterial system. The examination is negative for pulmonary thromboembolism. Aorta: No thoracic aortic aneurysm. Lungs: Previously described right suprahilar mass currently measures 5.2 x 7.9 cm in the axial plane x 7.8 cm craniocaudal. This mass is centered in the posterior aspect of right upper lobe and is encasing multiple pulmonary arterial branches. Mass extends from the hilum to the pleural surface. There is associated atelectasis in the adjacent lung which appears secondary to bronchial narrowing. Atelectasis is seen in the inferior left lingula. Pneumonitis is not excluded. Pleural spaces: No pleural effusion. No pneumothorax. Heart: No cardiomegaly. Pericardial effusion measures up to 3 mm. Coronary arterial calcifications are detected. Lymph nodes: There is mediastinal and hilar adenopathy. Mediastinal lymph nodes measure up to 12 mm in the short axis. These are significantly decreased in size compared to 09/30/2023. Left mediastinal lymphadenopathy. Bones/joints: Spinal degenerative changes. Soft tissues: Unremarkable. CT/CT angio chest PE protcl [id number] IMPRESSION: 1. No pulmonary embolism identified. 2. Previously described right suprahilar mass appears slightly decreased in size compared to 09/30/2023. 3. Mediastinal and of the, decreased compared to 09/30/2023. 4. Atelectasis in both lungs, above. Pneumonitis is not excluded.
--- NOTE | 2024-07-12 13:59 | PM.HP ---
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 Patient reports a history of lung cancer, for which she received radiation therapy back in June currently on chemotherapy, she had a session about a week ago, for the last 3 days she has had increased shortness of breath, fatigue, malaise, productive cough, does report increased lower extremity edema, no diarrhea, no new rashes Review of Systems Const: Reports: chills, fatigue and malaise; Denies: fever(s) Card: Denies: chest pain Resp: Reports: dyspnea and non-productive cough GI: Denies: abdominal pain, nausea or vomiting : Denies: flank pain or difficulty voiding Skin/Breast: Denies: rash Neuro: Denies: headache(s) Psych: Denies: anxiety Endo: Denies: polyuria Medications/Allergies Home Medications Medication Instructions Recorded Confirmed Last Taken Type aspirin 81 mg tablet,delayed 81 mg PO DAILY 10/17/19 07/12/24 07/12/24 History release cholecalciferol (vitamin D3) 125 125 mcg PO DAILY 08/02/23 07/12/24 07/12/24 History mcg (5,000 unit) capsule insulin lispro 100 unit/mL See Rx Instructions SUBCUT TID PRN 08/02/23 07/12/24 03/21/24 History subcutaneous pen (Humalog KwikPen blood sugar (U-100) Insulin) loratadine 10 mg tablet (Allergy 10 mg PO DAILY 08/02/23 07/12/24 07/12/24 History Relief (loratadine)) magnesium oxide 500 mg capsule 500 mg PO DAILY 08/02/23 07/12/24 07/12/24 History ubrogepant 50 mg tablet (Ubrelvy) 50 mg PO DAILY PRN Migraine 08/02/23 07/12/24 Unknown History Headache blood-glucose meter #1 ea 08/19/23 07/12/24 Unknown Rx lancets #200 ea 08/19/23 07/12/24 Unknown Rx losartan 100 mg tablet 100 mg PO DAILY 90 days #90 tabs 11/03/23 07/12/24 07/12/24 Rx bumetanide 1 mg tablet 1 mg PO DAILY #30 tabs 11/05/23 07/12/24 07/12/24 Rx atorvastatin 10 mg tablet 10 mg PO DAILY 90 days #90 tabs 01/05/24 07/12/24 07/12/24 Rx lancets 33 gauge (Mehulaicha Slaughter #100 ea 02/07/24 07/12/24 Unknown Rx Plus Lancet) dulaglutide 3 mg/0.5 mL 3 mg SUBCUT Q7D 03/22/24 07/12/24 07/06/24 History subcutaneous pen injector (Trulicity) levothyroxine 25 mcg tablet 25 mcg PO QAM 03/22/24 07/12/24 07/12/24 History metoprolol tartrate 25 mg tablet 25 mg PO DAILY 03/22/24 07/12/24 07/12/24 History venlafaxine 75 mg tablet 75 mg PO DAILY 04/10/24 07/12/24 07/12/24 History docusate sodium 100 mg capsule 200 mg PO BID 05/29/24 07/12/24 07/12/24 History (Colace) doxepin 25 mg capsule 50 mg PO BEDTIME 05/29/24 07/12/24 07/11/24 History latanoprost 0.005 % eye drops 1 drp ophthalmic (eye) BEDTIME 05/29/24 07/12/24 07/11/24 History blood sugar diagnostic (Mehuluch #200 ea 06/05/24 07/12/24 Unknown Rx Ultra Test strips) gabapentin 100 mg capsule 100 mg PO DAILY 06/07/24 07/12/24 07/12/24 History prochlorperazine maleate 10 mg 10 mg PO Q4H PRN Mild Nausea #30 06/07/24 07/12/24 Unknown Rx tablet (Compazine) tabs lorazepam 1 mg tablet 0.5 - 1 mg (0.5 - 1 x 1 mg) PO Q6H 07/03/24 07/12/24 Unknown Rx PRN Severe Nausea #30 tabs olanzapine 5 mg tablet 5 mg PO QPM Breakthrough Nausea 07/03/24 07/12/24 Unknown Rx and Vomitting #30 tabs amlodipine 5 mg tablet 5 mg PO DAILY 07/12/24 07/12/24 07/12/24 History pantoprazole 40 mg tablet,delayed 40 mg PO DAILY 07/12/24 07/12/24 07/12/24 History release potassium chloride 20 mEq 20 meq PO DAILY 07/12/24 07/12/24 07/12/24 History tablet,extended release(part/cryst) Allergies Allergy/AdvReac Type Severity Reaction Status Date / Time codeine Allergy Unknown Unknown Verified 07/03/24 08:09 ketorolac [From Toradol] Allergy Unknown Verified 07/03/24 08:09 melatonin Allergy Unknown Verified 07/03/24 08:09 PFSH Acute PFSH: Medical History Small cell lung cancer Nicotine use disorder PTSD (post-traumatic stress disorder) Bipolar disorder current episode depressed Psychiatric care History of attempted suicide Hypothyroidism (acquired) Duodenitis Gastritis Sleep apnea Obesity Bipolar affect, depressed Depression Hypertension Diabetes Oxygen dependent CHF (congestive heart failure) GERD (gastroesophageal reflux disease) COPD (chronic obstructive pulmonary disease) 3L o2 , mild to mod copd responsive to bronchodilator Enrolled in chronic care management Surgical History History of appendectomy H/O colonoscopy with polypectomy H/O esophagogastroduodenoscopy Tubal ligation status S/P cholecystectomy Family History Father Lung cancer Sister Ovarian cancer Mother Diabetes Other CAD (coronary artery disease) Social History Smoking and tobacco/nicotine status: former use of tobacco/nicotine Alcohol intake: former Year of sobriety/quit date alcohol: 1999 Substance/Drug Use: never Adopted: No Caregiver/support person: No Lives independently: No Household members: family Housing: House Current gender identity: Female Vitals/I&O/Wt Last Vital Signs Temp 98.2 F 07/12/24 11:04 Pulse 85 07/12/24 12:38 Resp 16 07/12/24 12:11 BP 126/86 07/12/24 12:38 Pulse Ox 93 07/12/24 12:38 O2 Del Method Nasal Cannula 07/12/24 12:38 O2 Flow Rate 5 07/12/24 12:38 Weight last 48 hrs Weight 117.027 kg Physical Exam Const: COMMON NORMALS: no acute distress and patient oriented x3 Eye: COMMON NORMALS: Equal, round and reactive pupils present and EOMs intact bilaterally Resp: COMMON NORMALS: normal respiratory effort, No retractions, No use of accessory muscles and clear to auscultation bilaterally AUSCULTATION: rales and wheezes Cardio: COMMON NORMALS: regular rate, regular rhythm, S1 normal heart sound present and S2 normal heart sound present RATE: regular rate RHYTHM: regular rhythm HEART SOUNDS: S1 normal heart sound present and S2 normal heart sound present GI: COMMON NORMALS: Normal to inspection, nondistended, normoactive bowel sounds present, Soft to palpation and non-tender : COMMON NORMALS: Yes no CVA tenderness Extremity: COMMON NORMALS: no pedal edema Neuro: COMMON NORMALS: patient oriented x3, CN's II-XII intact bilaterally and moves all extremities Psych: COMMON NORMALS: mental status grossly normal Data 07/12/24 11:10 07/12/24 11:10 Micro: Microbiology 07/12/24 12:23 Blood Culture - Preliminary Blood SPECIMEN COLLECTED 07/12/24 12:15 Blood Culture - Preliminary Blood SPECIMEN COLLECTED A&P Assessment and plan (1) COPD exacerbation: (2) Pneumonia: (3) Acute hypoxic respiratory failure: (4) Diabetes: Qualifiers: Diabetes mellitus type: type 2 Diabetes mellitus predatory animal exterminator insulin use: with predatory animal exterminator use Diabetes mellitus complication status: with kidney complications Diabetes mellitus complication detail: with chronic kidney disease Chronic kidney disease stage: stage 2 (mild) Qualified Code(s): E11.22 - Type 2 diabetes mellitus with diabetic chronic kidney disease; N18.2 - Chronic kidney disease, stage 2 (mild); Z79.4 - exterminator helper (current) use of insulin (5) Hypothyroidism (acquired): Plan Acute hypoxic respiratory failure -With history of lung cancer, on active chemotherapy -With COPD exacerbation -With pneumonia Plan -Placed on isolation precautions, -DuoNeb -Budesonide -Sputum culture -Broaden antibiotic coverage -Vancomycin -Zosyn -Solu-Medrol 40 mg IV push every 8 hours -CT angiogram of the chest -Monitor respiratory status closely -Low-dose sliding scale -Full code -Lovenox for DVT prophylaxis Spoke to patient, spoke to ER physician Attestations Medical Necessity Statement*: Patient requires hospitalization, inpatient, greater than 2 midnights, for acute hypoxic respiratory failure secondary to COPD, pneumonia Diagnoses COPD exacerbation J44.1 Pneumonia J18.9 Acute hypoxic respiratory failure J96.01 Type 2 diabetes mellitus with stage 2 chronic kidney disease, with long-term current use of insulin E11.22; N18.2; Z79.4 Diabetes mellitus type: type 2 Diabetes mellitus predatory animal exterminator insulin use: with residential use Diabetes mellitus complication status: with kidney complications Diabetes mellitus complication detail: with chronic kidney disease Chronic kidney disease stage: stage 2 (mild) Hypothyroidism (acquired) E03.9
--- NOTE | 2024-07-12 14:15 | PC.NURSE ---
This nurse took report from SHAR Casillas in ER at [phone]
--- NOTE | 2024-07-12 14:15 | PC.NURSE ---
Report called to Rick on med surg at 1415.
[2024-07-12] MEDS: iohexol 350 mg/mL 500 mL Btl (per mL) IV (14:39)
[2024-07-12 14:44] LABS: Procalcitonin 0.07 ng/mL (0-0.5)
[2024-07-12] MEDS: enoxaparin 40 mg/0.4 mL Syringe SUBCUT (14:56)
[2024-07-12] MEDS: pantoprazole 40 mg SDV IVP (14:56)
[2024-07-12] MEDS: vancomycin 2,000 MG/400 ML PIGGYBACK 200 MG IV (14:56)
[2024-07-12 15:27] LABS: Estmated Average Glucose 148; Hemoglobin A1C 6.8 % (4.0-6.0)
[2024-07-12 15:31] LABS: Troponin 5 2HR 6.69 ng/L (0-10)
[2024-07-12 15:32] LABS: Lactic Acid level (Lactate) 3.9 mmol/L (0.5-2.2); Troponin 5 2HR Delta -0.31 ABS# (0-10)
[2024-07-12 15:33] LABS: C Reactive Protein 43.2 mg/L (0.0-4.9); Chol HDL Ratio 4.31 mg/dL (0.0-4.40); Cholesterol 125 mg/dL (0-200); HDL Cholesterol 29 mg/dL (60-100); LDL Cholesterol Calculated 70 mg/dL (50-129); LDL HDL Ratio 2.41 RATIO (0.00-3.22); Thyroid Stimulating Hormone 1.53 uIU/mL (0.27-4.20); Triglycerides 130 mg/dL (0-150)
--- NOTE | 2024-07-12 15:55 | PC.NURSE ---
Pt refused SCD.
[2024-07-12 16:39] LABS: Bilirubin Urine Negative (Negative); Blood Urine Negative (Negative); Glucose Urine UA Trace (Normal); Ketones Urine Negative (Negative); Leukocyte Esterase Urine Negative (Negative); Nitrate Urine Negative (Negative); Protein Urine Negative (Negative); Specific Gravity, Urine 1.022 (1.005-1.030); Urine Appearance Clear (CLEAR); Urine Color Yellow (Yellow); Urobilinogen Urine 0.2 mg/dL (Negative)
[2024-07-12 16:44] LABS: Add Urine Microscopic? YES; Bacteria Urine None Seen /hpf; RBC Urine 0-2 /hpf (0-2); Squamous Epithelial Cell Urine 0-5 /hpf (0-5); WBC Urine 0-5 /hpf (0-5)
[2024-07-12] MEDS: VANCOMYCIN ADD-Vantage 1,000 MG in 0.9% NaCl ADD-Vantage 250 ML 250 MG IV (16:47)
[2024-07-12] MEDS: docusate sodium 100 mg Capsule 200 MG PO (16:47)
[2024-07-12] MEDS: OLANZapine 5 mg TABLET PO (16:47)
[2024-07-12 16:58] LABS: Glucose Point of Care 220 mg/dL (70-110)
[2024-07-12] MEDS: piperacillin-tazobactam 3.375 GM in sodium chloride 0.9% (plus) 50 ML IV (17:18)
--- NOTE | 2024-07-12 17:21 | ECG_ITS ---
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
[2024-07-12 17:54] LABS: Troponin 5 6HR 8.23 ng/L (0-10); Troponin 5 6HR Delta 1.23 ng/L (0-12)
[2024-07-12] MEDS: acetaminophen 325 mg Tablet 650 MG PO (18:12)
[2024-07-12] MEDS: doxepin 50 mg Capsule PO (20:14)
[2024-07-12] MEDS: diclofenac 1% Topical Gel 100 gm 1 APPLIC TOPICAL (20:53)
[2024-07-12] MEDS: oxyCODONE 5 mg IR Tab/Cap PO (20:53)
--- NOTE | 2024-07-12 21:13 | PHA.VACGOAL ---
Vancomycin Goal - Goal Vancomycin Goal:: 15-20 mg/L Vancomycin Indication:: Pneumonia - Therapy Current therapy:: Pip/Tazo Day of therpy:: Day [1]of [] . Actual body weight (kg): 117.027 kg - Data Labs: WBC 4.48 10^3/uL (3.29-11.43) 07/12/24 11:10 RBC 3.06 10^6/uL (3.85-5.65) L 07/12/24 11:10 Hgb 8.20 g/dL (11.27-16.99) L 07/12/24 11:10 Hct 26.5 % (36-47) L 07/12/24 11:10 MCV 86.6 fl (85-98) 07/12/24 11:10 MCH 26.8 pg (27-33) L 07/12/24 11:10 MCHC 30.9 g/dL (30-55) 07/12/24 11:10 RDW 19.8 % (12.1-15.1) H 07/12/24 11:10 Sodium 139 mmol/L (136-145) 07/12/24 11:10 Potassium 4.4 mmol/L (3.5-5.1) 07/12/24 11:10 Chloride 102 mmol/L (98-107) 07/12/24 11:10 Carbon Dioxide 25 mmol/L (22-29) 07/12/24 11:10 Anion Gap 16.4 (5-19) 07/12/24 11:10 BUN 11 mg/dL (8-23) 07/12/24 11:10 Creatinine 0.5 mg/dL (0.5-0.9) 07/12/24 11:10 GFR Calculation 122.7 mL/min (90-130) 07/12/24 11:10 Treatment plan:: new consult Regimen:: Patient is a 69 year old female new start vancomycin for pneumonia. Received a 3 gram loading dose and started on 1500 mg q8h maintenance dose based population based nomogram. Pharmacy will continue to monitor daily.
[2024-07-12] MEDS: budesonide 0.5 mg/2 mL Neb INHALATION (23:34)
[2024-07-12] MEDS: vancomycin 1,500 MG/300 ML PIGGYBACK 200 MG IV (23:59)
[2024-07-13] VITALS (18 sets, daily range): BP systolic 107–142; BP diastolic 68–85; PULSE 79–99; RESP 16–20; TEMP 36.4–36.7; O2SAT 94–100
[2024-07-13] MEDS: oxyCODONE 5 mg IR Tab/Cap PO ×2 (01:53→10:19)
[2024-07-13] MEDS: piperacillin-tazobactam 3.375 GM in sodium chloride 0.9% (plus) 50 ML IV ×3 (01:59→19:12)
[2024-07-13] MEDS: efferdent effervescent 1 EACH DENTAL (02:26)
[2024-07-13] MEDS: diclofenac 1% Topical Gel 100 gm 1 APPLIC TOPICAL (05:14)
[2024-07-13] MEDS: levothyroxine 25 mcg Tablet PO (05:15)
[2024-07-13] MEDS: methylPREDNISolone sod succ 40 mg/mL INJ IVP ×3 (05:15→21:35)
[2024-07-13 05:39] LABS: Basophils # 0.1 10^3/uL (0.0-0.1); Basophils % 1.7 %; Hematocrit 22.8 % (36-47); Lymphocytes # 0.4 10^3/uL (0.8-4.8); Lymphocytes % 8.5 %; Mean Corpuscular HGB Conc 31.6 g/dL (30-55); Mean Corpuscular Hemoglobin 27.6 pg (27-33); Mean Corpuscular Volume 87.4 fl (85-98); Mean Platelet Volume 10.3 fL (7.4-10.4); Monocytes # 0.8 10^3/uL (0.2-0.9); Monocytes % 16.5 %; Neutrophils # 3.33 10^3/uL (1.8-7.7); Neutrophils % 69.3 %; Nucleated Red Blood Cells % 0.4 %; Platelet Count 104 10^3/cmm (157-399); Red Blood Count 2.61 10^6/uL (3.85-5.65); Red Cell Distribution Width 19.4 % (12.1-15.1)
[2024-07-13 05:58] LABS: Alanine Aminotransferase 8 U/L (0-33); Albumin Level 3.6 g/dL (3.5-5.2); Alkaline Phosphatase 139 U/L (35-105); Anion Gap 16.7 (5-19); Aspartate Amino Transferase 10 U/L (0-32); Blood Urea Nitrogen 16 mg/dL (8-23); Calcium 8.6 mg/dL (8.5-10.5); Carbon Dioxide 24 mmol/L (22-29); Chloride 100 mmol/L (98-107); Creatinine Clr Calc Pharmacy 84.7076; Globulin 2.4 g/dL (1.3-4.6); Glomerular Filtration Rate 83.2 mL/min (90-130); Glucose 125 mg/dL (65-115); Magnesium 1.8 mg/dL (1.7-2.3); Osmolality Calculated 287 mOsm/kg (285-295); Phosphorus 3.2 mg/dL (2.5-4.5); Potassium 3.7 mmol/L (3.5-5.1); Sodium 137 mmol/L (136-145); Total Bilirubin 0.2 mg/dL (0.15-1.2)
[2024-07-13 06:27] LABS: Slide Review Slide Review Perform
--- NOTE | 2024-07-13 07:39 | PC.NURSE ---
At 20:23, Dr. Johnson was notified the the patient says she hurts where her cancer is at in her right lower lung. She says the Tylenol didn't help her pain. PRN Oxy ordered.
[2024-07-13] MEDS: budesonide 0.5 mg/2 mL Neb INHALATION ×2 (08:20→21:09)
[2024-07-13] MEDS: ipratropium-albuterol 3 mL Neb INHALATION ×3 (08:23→21:09)
[2024-07-13] MEDS: docusate sodium 100 mg Capsule 200 MG PO ×2 (08:31→17:13)
[2024-07-13] MEDS: venlafaxine 75 mg Tablet PO (08:31)
[2024-07-13] MEDS: gabapentin 100 mg Capsule PO (08:31)
[2024-07-13] MEDS: ATORVASTATIN 10 MG 1 EACH PO (08:31)
[2024-07-13] MEDS: metoprolol tartrate 25 mg Tablet PO (08:31)
[2024-07-13] MEDS: cholecalciferol (vitamin D3) 5,000 unit Tablet 5000 UNIT PO (08:31)
[2024-07-13] MEDS: NON-FORMULARY MEDICATION (Magnesium Oxide 500 mg capsule) 500 EACH PO (08:31)
[2024-07-13] MEDS: aspirin 81 mg EC Tablet PO (08:31)
[2024-07-13] MEDS: vancomycin 1,500 MG/300 ML PIGGYBACK 200 MG IV ×2 (08:33→17:10)
[2024-07-13 09:07] LABS: Ferritin 546 ng/mL (15-150); Iron 96 ug/dL (37-145); Percent Saturation 34.9 % (20-50); Total Iron Binding Capacity 275 mcg/dl; Unsaturated Iron Binding 179 ug/dL (112-347)
--- NOTE | 2024-07-13 09:53 | PC.CHAP ---
Pastoral Care Encounter/Spiritual Assessment Type of Contact [] Declined manager secondary visit [] Patient/Family/Request visit [] Outpatient visit [] Follow-up visit [] Physician referral [] Code/Alert [x] Routine visit [] Staff referral [] Actively dying [] Patient sleeping [] Family support [] [] Out of room [] Palliative care [] [] Receiving care in room [] Pre-surgical visit [] Trauma [] Long length of stay [] ICU visit [] Other: Relational/Emotional Strength [x] Patient feels connected with others/family/visitors/staff [] Distress [] Loneliness/isolation [] Abandonment Spirituality of Patient [x] Person of Arabella [] Attends Cheondoism of their Arabella [x] Believes in Prayer [] Reads Bible or Rastafari materials [] There are Spiritual issues to be addressed Mine Deputy Interventions [x] Prayer [x] Active listening [] Non-anxious presence [x] Spiritual/emotional support [] Crisis/trauma care [] Spiritual counseling [] Bereavement support [] Provided bereavement packet [] Provided Bible/devotional materials [] Provided toy/stuffed animal, coloring book to patient or family member [] Provided Communion [] Anointing/[place] [] Salvation [x] Completed spiritual assessment [] Other: Impact on Illness or Injury [] Angry [] Fearful [] Anxious [] Often cries [] Exhaustion [] Unable to work [] Unable to attend adventism [] Unable to walk/stand [] Unable to read [] Unable to drive [] Unable to eat/drink [] Unable to sleep [] Unable to be with family [] Patient intubated [] Other: Summary Time spent with patient 5 vmin
[2024-07-13] MEDS: pantoprazole 40 mg SDV IVP (13:57)
--- NOTE | 2024-07-13 14:32 | P.PN_ITS ---
Subjective 2 Subjective: Patient was seen this morning, she continues to complain of shortness of breath and wheezing, does report fatigue, malaise, denies any bloody or black stools, Vitals/I&O/Wt Last Vital Signs Temp 97.7 F 07/13/24 11:28 Pulse 79 07/13/24 13:50 Resp 20 H 07/13/24 13:50 BP 130/81 07/13/24 11:28 Pulse Ox 97 07/13/24 13:50 O2 Del Method Nasal Cannula 07/13/24 13:50 O2 Flow Rate 4 07/13/24 13:50 07/12/24 07/13/24 07/13/24 22:59 06:59 14:59 Intake Total 1950.000 / 2050.000 350 / 2400.000 1670 / 1670 Output Total 1600 / 1600 700 / 700 Balance 350.000 / 450.000 350 / 800.000 970 / 970 Weight last 48 hrs Weight 120.712 kg Weight 117.027 kg Physical Exam 2 Const: COMMON NORMALS: no acute distress and patient oriented x3 GENERAL APPEARANCE: frail appearing Resp: COMMON NORMALS: normal respiratory effort, No retractions and No use of accessory muscles AUSCULTATION: wheezes Cardio: COMMON NORMALS: regular rate, regular rhythm, S1 normal heart sound present and S2 normal heart sound present RATE: regular rate RHYTHM: r egular rhythm HEART SOUNDS: S1 normal heart sound present and S2 normal heart sound present GI: COMMON NORMALS: Normal to inspection, nondistended, normoactive bowel sounds present and non-tender Extremity: COMMON NORMALS: no clubbing, cyanosis or edema and no pedal edema Neuro: COMMON NORMALS: patient oriented x3 Psych: COMMON NORMALS: mental status grossly normal Data 07/13/24 13:46 07/13/24 04:43 Micro: Microbiology 07/12/24 12:23 Blood Culture - Preliminary Blood NEGATIVE TO DATE 07/12/24 12:15 Blood Culture - Preliminary Blood NEGATIVE TO DATE 07/13/24 02:30 Gram Stain - Final Sputum - Expectorated Sputum Sputum Culture - Preliminary A&P Assessment and plan (1) COPD exacerbation: (2) Pneumonia: (3) Acute hypoxic respiratory failure: (4) Diabetes: Qualifiers: Chronic kidney disease stage: stage 2 (mild) Diabetes mellitus complication detail: with chronic kidney disease Diabetes mellitus complication status: with kidney complications Diabetes mellitus dedicated intermodal truck driver insulin use: with dedicated intermodal truck driver use Diabetes mellitus type: type 2 Qualified Code(s): E11.22 - Type 2 diabetes mellitus with diabetic chronic kidney disease; N18.2 - Chronic kidney disease, stage 2 (mild); Z79.4 - half-way (current) use of insulin (5) Hypothyroidism (acquired): (6) Acute anemia: (7) Pancytopenia: Plan Acute hypoxic respiratory failure -With history of lung cancer, on active chemotherapy -With COPD exacerbation -With pneumonia Plan -Placed on isolation precautions, -DuoNeb -Budesonide -Sputum culture -Broaden antibiotic coverage -Vancomycin -Zosyn -Solu-Medrol 40 mg IV push every 8 hours -CT angiogram of the chest no acute findings -Developing pancytopenia, likely effect of the chemotherapeutic agent, continue reverse isolation -Acute anemia hemoglobin 7.3, transfuse 1 unit PRBC -Monitor respiratory status closely -Low-dose sliding scale -Full code -DVT prophylaxis, SCDs, Lovenox on hold given acute anemia Plan for today continue IV antibiotics, continue IV steroids, monitor hemoglobin every 6 hours, transfuse 1 unit PRBC, monitor pancytopenia Attestations 2 Medical Necessity Statement*: Patient requires hospitalization, for acute hypoxic respiratory failure, with acute anemia, with pancytopenia, pneumonia, COPD Diagnoses COPD exacerbation J44.1 Pneumonia J18.9 Acute hypoxic respiratory failure J96.01 Type 2 diabetes mellitus with stage 2 chronic kidney disease, with long-term current use of insulin E11.22; N18.2; Z79.4 Chronic kidney disease stage: stage 2 (mild) Diabetes mellitus complication detail: with chronic kidney disease Diabetes mellitus complication status: with kidney complications Diabetes mellitus dedicated intermodal truck driver insulin use: with longterm use Diabetes mellitus type: type 2 Hypothyroidism (acquired) E03.9 Acute anemia D64.9 Pancytopenia D61.818
[2024-07-13 14:43] LABS: Hematocrit 23.6 % (36-47)
[2024-07-13] MEDS: OLANZapine 5 mg TABLET PO (17:13)
[2024-07-13 18:33] LABS: Hematocrit 24.6 % (36-47)
[2024-07-13] MEDS: doxepin 50 mg Capsule PO (20:18)
--- NOTE | 2024-07-13 20:33 | PC.NURSE ---
Patient received orders for the patient to receive one unit of blood by Dr. Snyder. Dr. Johnsno was informed and approved to have the blood transfused.
[2024-07-14] VITALS (12 sets, daily range): BP systolic 112–128; BP diastolic 70–80; PULSE 76–91; RESP 16–20; TEMP 36.4–36.7; O2SAT 94–98
[2024-07-14 03:10] LABS: Basophils % 0.6 %; Lymphocytes # 0.4 10^3/uL (0.8-4.8); Lymphocytes % 6.9 %; Mean Corpuscular HGB Conc 31.9 g/dL (30-55); Mean Corpuscular Hemoglobin 27.4 pg (27-33); Mean Corpuscular Volume 85.8 fl (85-98); Mean Platelet Volume 9.6 fL (7.4-10.4); Monocytes # 0.6 10^3/uL (0.2-0.9); Monocytes % 9.7 %; Neutrophils % 75.3 %; Nucleated Red Blood Cells % 0 %; Platelet Count 102 10^3/cmm (157-399); Red Blood Count 3.03 10^6/uL (3.85-5.65); Red Cell Distribution Width 18.6 % (12.1-15.1); White Blood Count 6.38 10^3/uL (3.29-11.43)
[2024-07-14 03:28] LABS: Alanine Aminotransferase 10 U/L (0-33); Albumin Level 3.8 g/dL (3.5-5.2); Alkaline Phosphatase 131 U/L (35-105); Anion Gap 15.2 (5-19); Aspartate Amino Transferase 11 U/L (0-32); Blood Urea Nitrogen 17 mg/dL (8-23); Calcium 8.9 mg/dL (8.5-10.5); Carbon Dioxide 25 mmol/L (22-29); Chloride 101 mmol/L (98-107); Creatinine Clr Calc Pharmacy 84.7076; Globulin 2.3 g/dL (1.3-4.6); Glomerular Filtration Rate 83.2 mL/min (90-130); Glucose 187 mg/dL (65-115); Osmolality Calculated 290 mOsm/kg (285-295); Phosphorus 3.8 mg/dL (2.5-4.5); Potassium 4.2 mmol/L (3.5-5.1); Sodium 137 mmol/L (136-145); Total Bilirubin 0.7 mg/dL (0.15-1.2); Total Protein 6.1 g/dL (6.6-8.7)
[2024-07-14 03:30] LABS: Slide Review Slide Review Perform
[2024-07-14] MEDS: vancomycin 2,000 MG/400 ML PIGGYBACK 200 MG IV ×2 (03:51→16:58)
[2024-07-14] MEDS: methylPREDNISolone sod succ 40 mg/mL INJ IVP ×3 (05:44→21:00)
[2024-07-14] MEDS: levothyroxine 25 mcg Tablet PO (05:44)
[2024-07-14] MEDS: metoprolol tartrate 25 mg Tablet PO (08:38)
[2024-07-14] MEDS: aspirin 81 mg EC Tablet PO (08:38)
[2024-07-14] MEDS: piperacillin-tazobactam 3.375 GM in sodium chloride 0.9% (plus) 50 ML IV ×2 (08:38→20:45)
[2024-07-14] MEDS: venlafaxine 75 mg Tablet PO (08:38)
[2024-07-14] MEDS: gabapentin 100 mg Capsule PO (08:38)
[2024-07-14] MEDS: NON-FORMULARY MEDICATION (Magnesium Oxide 500 mg capsule) 500 EACH PO (08:39)
[2024-07-14] MEDS: docusate sodium 100 mg Capsule 200 MG PO ×2 (08:39→16:58)
[2024-07-14] MEDS: cholecalciferol (vitamin D3) 5,000 unit Tablet 5000 UNIT PO (08:39)
[2024-07-14] MEDS: ATORVASTATIN 10 MG 1 EACH PO (08:40)
[2024-07-14] MEDS: budesonide 0.5 mg/2 mL Neb INHALATION ×2 (09:17→20:50)
[2024-07-14] MEDS: ipratropium-albuterol 3 mL Neb INHALATION ×3 (09:17→20:50)
[2024-07-14] MEDS: enoxaparin 40 mg/0.4 mL Syringe SUBCUT (09:23)
--- NOTE | 2024-07-14 09:53 | PC.SOCIAL ---
IMM Update pg 2 of IMM Updated and reviewed w/ patient. Copy provided and copy dated, initialed and placed in chart.
[2024-07-14 11:15] LABS: Glucose Point of Care 191 mg/dL (70-110)
[2024-07-14] MEDS: pantoprazole 40 mg SDV IVP (14:35)
--- NOTE | 2024-07-14 15:43 | P.PN_ITS ---
Subjective 2 Subjective: Patient was seen this morning, she is sitting up to the side of the bed, does report wheezing and shortness of breath, no fevers Vitals/I&O/Wt Last Vital Signs Temp 98.0 F 07/14/24 15:40 Pulse 86 07/14/24 15:40 Resp 16 07/14/24 15:40 BP 127/80 07/14/24 15:40 Pulse Ox 95 07/14/24 15:40 O2 Del Method Nasal Cannula 07/14/24 15:40 O2 Flow Rate 3 07/14/24 14:00 07/14/24 07/14/24 07/14/24 06:59 14:59 22:59 Intake Total 767.708 / 3610.000 775 / 775 Balance 767.708 / 1710.000 775 / 775 Weight last 48 hrs Weight 120.712 kg Weight 120.712 kg Physical Exam 2 Const: COMMON NORMALS: no acute distress and patient oriented x3 Resp: COMMON NORMALS: normal respiratory effort, No retractions and No use of accessory muscles AUSCULTATION: crackles and wheezes Cardio: COMMON NORMALS: regular rate, regular rhythm, S1 normal heart sound present and S2 normal heart sound present RATE: regular rate RHYTHM: r egular rhythm HEART SOUNDS: S1 normal heart sound present and S2 normal heart sound present GI: COMMON NORMALS: Normal to inspection, nondistended, normoactive bowel sounds present and non-tender Extremity: COMMON NORMALS: no pedal edema Neuro: COMMON NORMALS: patient oriented x3 Psych: COMMON NORMALS: mental status grossly normal Data 07/14/24 02:59 07/14/24 02:59 Micro: Microbiology 07/13/24 02:30 Gram Stain - Final Sputum - Expectorated Sputum Sputum Culture - Final 07/12/24 12:23 Blood Culture - Preliminary Blood NEGATIVE TO DATE 07/12/24 12:15 Blood Culture - Preliminary Blood NEGATIVE TO DATE A&P Assessment and plan (1) COPD exacerbation: (2) Pneumonia: (3) Acute hypoxic respiratory failure: (4) Diabetes: Qualifiers: Diabetes mellitus type: type 2 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 Diabetes mellitus complication status: with kidney complications Diabetes mellitus complication detail: with chronic kidney disease Chronic kidney disease stage: stage 2 (mild) Qualified Code(s): E11.22 - Type 2 diabetes mellitus with diabetic chronic kidney disease; N18.2 - Chronic kidney disease, stage 2 (mild); Z79.4 - half-way (current) use of insulin (5) Hypothyroidism (acquired): (6) Acute anemia: (7) Pancytopenia: Plan Acute hypoxic respiratory failure -With history of lung cancer, on active chemotherapy -With COPD exacerbation -With pneumonia Plan -Placed on isolation precautions, -DuoNeb -Budesonide -Sputum culture -Broaden antibiotic coverage -Vancomycin -Zosyn -Solu-Medrol 40 mg IV push every 8 hours -CT angiogram of the chest no acute findings -Developing pancytopenia, likely effect of the chemotherapeutic agent, continue reverse isolation -Acute anemia hemoglobin 7.3, transfuse 1 unit PRBC, hemoglobin 8.3 will recheck this afternoon -Monitor respiratory status closely -Low-dose sliding scale -Full code -DVT prophylaxis, SCDs, Lovenox on hold given acute anemia Plan for today continue IV steroids, continue IV antibiotics, monitor hemoglobin Attestations 2 Medical Necessity Statement*: Patient requires hospitalization for acute hypoxic respiratory failure secondary to COPD, pneumonia, immunocompromise state Diagnoses COPD exacerbation J44.1 Pneumonia J18.9 Acute hypoxic respiratory failure J96.01 Type 2 diabetes mellitus with stage 2 chronic kidney disease, with long-term current use of insulin E11.22; N18.2; Z79.4 Diabetes mellitus type: type 2 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
[2024-07-14] MEDS: OLANZapine 5 mg TABLET PO (16:59)
[2024-07-14 17:18] LABS: Glucose Point of Care 235 mg/dL (70-110)
[2024-07-14 18:31] LABS: Basophils # 0.1 10^3/uL (0.0-0.1); Basophils % 0.8 %; Hematocrit 27.9 % (36-47); Lymphocytes # 0.5 10^3/uL (0.8-4.8); Lymphocytes % 6.4 %; Mean Corpuscular HGB Conc 31.5 g/dL (30-55); Mean Corpuscular Hemoglobin 27.4 pg (27-33); Mean Corpuscular Volume 86.9 fl (85-98); Mean Platelet Volume 10.1 fL (7.4-10.4); Monocytes # 0.7 10^3/uL (0.2-0.9); Monocytes % 8.3 %; Neutrophils # 6.02 10^3/uL (1.8-7.7); Neutrophils % 75.4 %; Nucleated Red Blood Cells % 0.4 %; Platelet Count 87 10^3/cmm (157-399); Red Blood Count 3.21 10^6/uL (3.85-5.65); Red Cell Distribution Width 19.1 % (12.1-15.1); White Blood Count 7.98 10^3/uL (3.29-11.43)
[2024-07-14 18:58] LABS: Slide Review Slide Review Perform
[2024-07-14] MEDS: doxepin 50 mg Capsule PO (20:45)
[2024-07-14] MEDS: latanoprost 0.005% Op Soln 2.5 mL Btl 1 DROP EYE-BOTH (20:45)
[2024-07-15] VITALS (9 sets, daily range): BP systolic 115–148; BP diastolic 55–88; PULSE 74–87; RESP 16–20; TEMP 36.4–36.8; O2SAT 94–99
[2024-07-15] MEDS: vancomycin 2,000 MG/400 ML PIGGYBACK 200 MG IV (03:14)
[2024-07-15 05:16] LABS: Basophils # 0.1 10^3/uL (0.0-0.1); Basophils % 0.7 %; Hematocrit 25.9 % (36-47); Lymphocytes # 0.6 10^3/uL (0.8-4.8); Lymphocytes % 8.3 %; Mean Corpuscular HGB Conc 30.9 g/dL (30-55); Mean Corpuscular Hemoglobin 27.7 pg (27-33); Mean Corpuscular Volume 89.6 fl (85-98); Mean Platelet Volume 10.2 fL (7.4-10.4); Monocytes # 0.7 10^3/uL (0.2-0.9); Monocytes % 9.8 %; Neutrophils # 5.17 10^3/uL (1.8-7.7); Neutrophils % 71.8 %; Nucleated Red Blood Cells % 0.4 %; Platelet Count 75 10^3/cmm (157-399); Red Blood Count 2.89 10^6/uL (3.85-5.65); Red Cell Distribution Width 19.4 % (12.1-15.1); White Blood Count 7.21 10^3/uL (3.29-11.43)
[2024-07-15 05:17] LABS: Slide Review Slide Review Perform
[2024-07-15] MEDS: piperacillin-tazobactam 3.375 GM in sodium chloride 0.9% (plus) 50 ML IV ×3 (05:34→21:39)
[2024-07-15] MEDS: methylPREDNISolone sod succ 40 mg/mL INJ IVP ×3 (05:34→21:40)
[2024-07-15 05:35] LABS: Alanine Aminotransferase 9 U/L (0-33); Albumin Level 3.5 g/dL (3.5-5.2); Alkaline Phosphatase 123 U/L (35-105); Anion Gap 13.2 (5-19); Aspartate Amino Transferase 9 U/L (0-32); Blood Urea Nitrogen 18 mg/dL (8-23); Calcium 8.4 mg/dL (8.5-10.5); Carbon Dioxide 24 mmol/L (22-29); Chloride 100 mmol/L (98-107); Creatinine Clr Calc Pharmacy 84.9728; Globulin 2.3 g/dL (1.3-4.6); Glomerular Filtration Rate 99.4 mL/min (90-130); Glucose 195 mg/dL (65-115); Magnesium 2.2 mg/dL (1.7-2.3); Osmolality Calculated 283 mOsm/kg (285-295); Phosphorus 3.3 mg/dL (2.5-4.5); Potassium 4.2 mmol/L (3.5-5.1); Sodium 133 mmol/L (136-145); Total Bilirubin 0.2 mg/dL (0.15-1.2); Total Protein 5.8 g/dL (6.6-8.7)
[2024-07-15] MEDS: levothyroxine 25 mcg Tablet PO (05:35)
[2024-07-15 07:31] LABS: Glucose Point of Care 137 mg/dL (70-110)
[2024-07-15] MEDS: ipratropium-albuterol 3 mL Neb INHALATION ×3 (08:04→20:30)
[2024-07-15] MEDS: budesonide 0.5 mg/2 mL Neb INHALATION ×2 (08:04→21:00)
[2024-07-15] MEDS: venlafaxine 75 mg Tablet PO (09:30)
[2024-07-15] MEDS: metoprolol tartrate 25 mg Tablet PO (09:30)
[2024-07-15] MEDS: cholecalciferol (vitamin D3) 5,000 unit Tablet 5000 UNIT PO (09:30)
[2024-07-15] MEDS: gabapentin 100 mg Capsule PO (09:30)
[2024-07-15] MEDS: aspirin 81 mg EC Tablet PO (09:31)
[2024-07-15] MEDS: enoxaparin 40 mg/0.4 mL Syringe SUBCUT (09:31)
[2024-07-15] MEDS: ATORVASTATIN 10 MG 1 EACH PO (09:32)
[2024-07-15] MEDS: NON-FORMULARY MEDICATION (Magnesium Oxide 500 mg capsule) 500 EACH PO (09:32)
[2024-07-15 11:27] LABS: Glucose Point of Care 249 mg/dL (70-110)
--- NOTE | 2024-07-15 12:21 | PM.PN ---
Vitals/I&O/Wt Last Vital Signs Temp 97.7 F 07/15/24 07:41 Pulse 83 07/15/24 08:04 Resp 20 H 07/15/24 08:04 BP 123/88 07/15/24 07:41 Pulse Ox 98 07/15/24 08:04 O2 Del Method Nasal Cannula 07/15/24 08:04 O2 Flow Rate 3 07/15/24 08:04 07/14/24 07/15/24 07/15/24 22:59 06:59 14:59 Intake Total 850 / 1625 450 / 2075 530 / 530 Output Total 1000 / 1000 Balance 850 / 1625 450 / 2075 -470 / -470 Weight last 48 hrs Weight 121.336 kg Weight 120.712 kg Physical Exam Const: COMMON NORMALS: no acute distress and patient oriented x3 Resp: COMMON NORMALS: normal respiratory effort, No retractions, No use of accessory muscles and clear to auscultation bilaterally AUSCULTATION: clear to auscultation bilaterally Cardio: COMMON NORMALS: regular rate, regular rhythm, S1 normal heart sound present and S2 normal heart sound present RATE: regular rate RHYTHM: regular rhythm HEART SOUNDS: S1 normal heart sound present and S2 normal heart sound present GI: COMMON NORMALS: Normal to inspection, nondistended, normoactive bowel sounds present and non-tender Extremity: COMMON NORMALS: no pedal edema Neuro: COMMON NORMALS: patient oriented x3 Psych: COMMON NORMALS: mental status grossly normal Data 07/15/24 04:29 07/15/24 04:29 Micro: Microbiology 07/13/24 02:30 Gram Stain - Final Sputum - Expectorated Sputum Sputum Culture - Final A&P Assessment and plan (1) COPD exacerbation: (2) Pneumonia: (3) Acute hypoxic respiratory failure: (4) Diabetes: Qualifiers: Diabetes mellitus type: type 2 Diabetes mellitus skilled nursing insulin use: with skilled nursing use Diabetes mellitus complication status: with kidney complications Diabetes mellitus complication detail: with chronic kidney disease Chronic kidney disease stage: stage 2 (mild) Qualified Code(s): E11.22 - Type 2 diabetes mellitus with diabetic chronic kidney disease; N18.2 - Chronic kidney disease, stage 2 (mild); Z79.4 - watermaster (current) use of insulin (5) Hypothyroidism (acquired): (6) Acute anemia: (7) Pancytopenia: Plan Acute hypoxic respiratory failure -With history of lung cancer, on active chemotherapy -With COPD exacerbation -With pneumonia Plan -Placed on isolation precautions, -DuoNeb -Budesonide -Sputum culture -Broaden antibiotic coverage -Vancomycin -Zosyn -Solu-Medrol 40 mg IV push every 8 hours -CT angiogram of the chest no acute findings -Developing pancytopenia, likely effect of the chemotherapeutic agent, continue reverse isolation -Acute anemia hemoglobin 7.3, transfuse 1 unit PRBC, hemoglobin 8.0 -Platelet count 70 -Monitor respiratory status closely -Low-dose sliding scale -Full code -DVT prophylaxis, SCDs, Lovenox on hold given acute anemia Plan for today continue IV steroids, continue IV antibiotics, monitor hemoglobin Attestations Medical Necessity Statement*: Patient requires hospitalization for respiratory failure, COPD, pneumonia Diagnoses COPD exacerbation J44.1 Pneumonia J18.9 Acute hypoxic respiratory failure J96.01 Type 2 diabetes mellitus with stage 2 chronic kidney disease, with long-term current use of insulin E11.22; N18.2; Z79.4 Diabetes mellitus type: type 2 Diabetes 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
[2024-07-15 15:21] LABS: Vancomycin Trough 23.7 ug/mL (10-15)
[2024-07-15] MEDS: pantoprazole 40 mg SDV IVP (15:41)
[2024-07-15 16:36] LABS: Glucose Point of Care 189 mg/dL (70-110)
[2024-07-15] MEDS: OLANZapine 5 mg TABLET PO (17:08)
[2024-07-15] MEDS: acetaminophen 325 mg Tablet 650 MG PO (19:10)
[2024-07-15] MEDS: doxepin 50 mg Capsule PO (20:18)
[2024-07-15] MEDS: vancomycin 1,250 MG/250 ML PIGGYBACK 166.67 MG IV (20:19)
[2024-07-15 20:28] LABS: Glucose Point of Care 368 mg/dL (70-110)
[2024-07-15] MEDS: insulin lispro 100 unit/1 mL SUBCUT (21:11)
[2024-07-16] VITALS (10 sets, daily range): BP systolic 126–164; BP diastolic 69–93; PULSE 73–90; RESP 17–24; TEMP 36.4–37; O2SAT 92–98
[2024-07-16 03:53] LABS: Mean Corpuscular HGB Conc 31.9 g/dL (30-55); Mean Corpuscular Hemoglobin 28.1 pg (27-33); Mean Corpuscular Volume 88.1 fl (85-98); Mean Platelet Volume 9.8 fL (7.4-10.4); Platelet Count 71 10^3/cmm (157-399); Red Blood Count 3.52 10^6/uL (3.85-5.65); Red Cell Distribution Width 19.4 % (12.1-15.1); White Blood Count 10.85 10^3/uL (3.29-11.43)
[2024-07-16 04:16] LABS: Alanine Aminotransferase 11 U/L (0-33); Alkaline Phosphatase 146 U/L (35-105); Anion Gap 14.1 (5-19); Aspartate Amino Transferase 11 U/L (0-32); Blood Urea Nitrogen 13 mg/dL (8-23); Calcium 8.9 mg/dL (8.5-10.5); Carbon Dioxide 28 mmol/L (22-29); Chloride 103 mmol/L (98-107); Creatinine Clr Calc Pharmacy 84.9728; Globulin 2.5 g/dL (1.3-4.6); Glomerular Filtration Rate 83.2 mL/min (90-130); Glucose 195 mg/dL (65-115); Osmolality Calculated 297 mOsm/kg (285-295); Potassium 4.1 mmol/L (3.5-5.1); Sodium 141 mmol/L (136-145); Total Bilirubin 0.2 mg/dL (0.15-1.2); Total Protein 6.5 g/dL (6.6-8.7)
[2024-07-16 04:20] LABS: Slide Review Slide Review Perform
[2024-07-16 04:24] LABS: Absolute Neutrophil 8.4 10^3/cmm (1.4-6.5); Absolute Segmented Neutrophil 7.4 10/cmm (1.6-7.1); Eosinophils 0 %; Lymphocytes 11 %; Lymphocytes Absolute 1.5 10^3/cmm (1.2-3.4); Monocytes Absolute 0.3 10^3/cmm (0.1-0.6); Platelet Estimate Decreased (Normal); Segmented Neutrophils 68 %; Total Cells Counted 100 (0-100)
[2024-07-16] MEDS: piperacillin-tazobactam 3.375 GM in sodium chloride 0.9% (plus) 50 ML IV ×3 (05:09→21:06)
[2024-07-16] MEDS: levothyroxine 25 mcg Tablet PO (05:09)
[2024-07-16] MEDS: methylPREDNISolone sod succ 40 mg/mL INJ IVP (05:09)
[2024-07-16 06:28] LABS: Glucose Point of Care 210 mg/dL (70-110)
[2024-07-16] MEDS: budesonide 0.5 mg/2 mL Neb INHALATION ×2 (07:40→20:37)
[2024-07-16] MEDS: ipratropium-albuterol 3 mL Neb INHALATION ×3 (07:40→20:37)
[2024-07-16] MEDS: gabapentin 100 mg Capsule PO (08:52)
[2024-07-16] MEDS: aspirin 81 mg EC Tablet PO (08:52)
[2024-07-16] MEDS: enoxaparin 40 mg/0.4 mL Syringe SUBCUT (08:52)
[2024-07-16] MEDS: cholecalciferol (vitamin D3) 5,000 unit Tablet 5000 UNIT PO (08:53)
[2024-07-16] MEDS: docusate sodium 100 mg Capsule 200 MG PO ×2 (08:53→18:07)
[2024-07-16] MEDS: venlafaxine 75 mg Tablet PO (08:53)
[2024-07-16] MEDS: insulin lispro 100 unit/1 mL SUBCUT ×4 (08:53→21:05)
[2024-07-16] MEDS: metoprolol tartrate 25 mg Tablet PO (08:54)
[2024-07-16] MEDS: ATORVASTATIN 10 MG 1 EACH PO (08:55)
[2024-07-16] MEDS: NON-FORMULARY MEDICATION (Magnesium Oxide 500 mg capsule) 500 EACH PO (08:55)
[2024-07-16] MEDS: predniSONE 20 mg Tablet 40 MG PO (08:58)
--- NOTE | 2024-07-16 09:35 | ECG_ITS ---
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 Measurements Intervals [place] Rate: 70 P: 61 PA: 143 QRS: 63 QRSD: 140 T: 31 QT: 387 QTc: 419 Interpretive Statements SINUS RHYTHM RIGHT BUNDLE BRANCH BLOCK [ Compared to ECG 07/12/2024 17:21:01 No significant changes Electronically Signed On 07-16-2024 14:01:28 INSTRUCTIONAL TECHNOLOGIST by Ge Tran M.D. [email or web address]
--- NOTE | 2024-07-16 09:36 | XRR_ITS ---
PROCEDURE INFORMATION: Exam: XR Chest Exam date and time: 07/16/2024 9:49 AM Age: 69 years old Clinical indication: Pain; Chest pressure; Additional info: Chest pain TECHNIQUE: Imaging protocol: Radiologic exam of the chest. Views: 1 view. COMPARISON: CT angio chest PE protcl [id number] 07/12/2024 2:30 PM FINDINGS: Tubes, catheters and devices: Medication port is seen on the left with its tip overlying the SVC. Lungs: Minimal patchy infiltrate or atelectasis at the left lung base. The right lung is essentially clear. Overall there has been interval improvement on the right with slight interval worsening at the left lung base. Pleural spaces: Unremarkable. No pleural effusion. No pneumothorax. Heart/Mediastinum: The heart is enlarged. There is calcified plaque involving the aorta. Bones/joints: Unremarkable. XR/XR chest 1V portable [id number] IMPRESSION: 1. Cardiomegaly. 2. Minimal patchy infiltrate or atelectasis left lung base.
[2024-07-16] MEDS: FUROsemide 10 mg/mL SDV 4mL 40 MG IVP (10:04)
[2024-07-16 10:19] LABS: Troponin(5th) Baseline < 6 ng/L (0-10)
[2024-07-16 11:52] LABS: Glucose Point of Care 183 mg/dL (70-110)
[2024-07-16 12:33] LABS: Troponin 5 2HR 6.27 ng/L (0-10); Troponin 5 2HR Delta 0.27001 ABS# (0-10)
--- NOTE | 2024-07-16 14:05 | PM.PN ---
Vitals/I&O/Wt Last Vital Signs Temp 97.6 F 07/16/24 12:00 Pulse 90 07/16/24 13:18 Resp 20 H 07/16/24 13:18 BP 141/93 07/16/24 12:00 Pulse Ox 98 07/16/24 13:18 O2 Del Method Nasal Cannula 07/16/24 13:18 O2 Flow Rate 3 07/16/24 13:18 07/15/24 07/16/24 07/16/24 22:59 06:59 14:59 Intake Total 1020 / 1910 290 / 2200 430 / 430 Output Total 1300 / 2300 900 / 3200 600 / 600 Balance -280 / -390 -610 / -1000 -170 / -170 Weight last 48 hrs Weight 121.472 kg Weight 121.336 kg Physical Exam Const: COMMON NORMALS: no acute distress and patient oriented x3 Resp: COMMON NORMALS: normal respiratory effort, No retractions and No use of accessory muscles AUSCULTATION: crackles and wheezes Cardio: COMMON NORMALS: regular rate, regular rhythm, S1 normal heart sound present and S2 normal heart sound present RATE: regular rate RHYTHM: regular rhythm HEART SOUNDS: S1 normal heart sound present and S2 normal heart sound present GI: COMMON NORMALS: Normal to inspection, nondistended, normoactive bowel sounds present and non-tender Extremity: NARRATIVE EXTREMITY EXAM: 1+ edema Neuro: COMMON NORMALS: patient oriented x3, CN's II-XII intact bilaterally and moves all extremities Psych: COMMON NORMALS: mental status grossly normal Data 07/16/24 03:18 07/16/24 03:18 A&P Assessment and plan (1) COPD exacerbation: (2) Pneumonia: (3) Acute hypoxic respiratory failure: (4) Diabetes: Qualifiers: Diabetes mellitus type: type 2 Diabetes mellitus halfway insulin use: with technician terminal and repeater use Diabetes mellitus complication status: with kidney complications Diabetes mellitus complication detail: with chronic kidney disease Chronic kidney disease stage: stage 2 (mild) Qualified Code(s): E11.22 - Type 2 diabetes mellitus with diabetic chronic kidney disease; N18.2 - Chronic kidney disease, stage 2 (mild); Z79.4 - retirement (current) use of insulin (5) Hypothyroidism (acquired): (6) Acute anemia: (7) Pancytopenia: (8) CHF exacerbation: Plan Acute hypoxic respiratory failure -With history of lung cancer, on active chemotherapy -With COPD exacerbation -Now with acute CHF exacerbation -With pneumonia Plan -Placed on isolation precautions, -DuoNeb -Budesonide -Sputum culture -Broaden antibiotic coverage -stop Vancomycin -Zosyn -deescalate to prednisone 40mg qD -CT angiogram of the chest no acute findings -Developing pancytopenia, likely effect of the chemotherapeutic agent, continue reverse isolation -Acute anemia hemoglobin 7.3, transfuse 1 unit PRBC, hemoglobin 8.0 -Platelet count 70 -Acute CHF exacerbation, fluid overload, with 1+ pitting edema crackles with feels 1 dose IV Lasix -Monitor respiratory status closely -Low-dose sliding scale -Full code -DVT prophylaxis, SCDs, Lovenox on hold given acute anemia Plan for today de-escalate steroids, de-escalate antibiotics maintenance IV Lasix Attestations Medical Necessity Statement*: Patient requires hospitalization for acute hypoxic respiratory failure, CHF and High MDM includes number and complexity of problems actively addressed during encounter, amount and/or complexity of data reviewed/ordered and described risk of complication, morbidity or mortality of management as documented Diagnoses COPD exacerbation J44.1 Pneumonia J18.9 Acute hypoxic respiratory failure J96.01 Type 2 diabetes mellitus with stage 2 chronic kidney disease, with long-term current use of insulin E11.22; N18.2; Z79.4 Diabetes mellitus type: type 2 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
[2024-07-16 15:25] LABS: NT Pro B Type Natriuretic Pept 484 pg/mL (0-125)
[2024-07-16 16:20] LABS: Troponin 5 6HR 6.51 ng/L (0-10); Troponin 5 6HR Delta 0.51001 ng/L (0-12)
[2024-07-16 16:22] LABS: Glucose Point of Care 206 mg/dL (70-110)
[2024-07-16] MEDS: OLANZapine 5 mg TABLET PO (18:07)
[2024-07-16] MEDS: doxepin 50 mg Capsule PO (21:04)
[2024-07-16 21:05] LABS: Glucose Point of Care 179 mg/dL (70-110)
[2024-07-17] VITALS (7 sets, daily range): BP systolic 106–116; BP diastolic 70–77; PULSE 72–85; RESP 16–20; TEMP 36.4–36.8; O2SAT 92–100
[2024-07-17] MEDS: ipratropium-albuterol 3 mL Neb INHALATION ×2 (02:39→07:59)
[2024-07-17] MEDS: piperacillin-tazobactam 3.375 GM in sodium chloride 0.9% (plus) 50 ML IV (05:43)
[2024-07-17] MEDS: levothyroxine 25 mcg Tablet PO (05:44)
[2024-07-17 05:56] LABS: Alanine Aminotransferase 10 U/L (0-33); Albumin Level 3.6 g/dL (3.5-5.2); Alkaline Phosphatase 110 U/L (35-105); Anion Gap 14.8 (5-19); Aspartate Amino Transferase 10 U/L (0-32); Blood Urea Nitrogen 17 mg/dL (8-23); Calcium 8.3 mg/dL (8.5-10.5); Carbon Dioxide 28 mmol/L (22-29); Chloride 100 mmol/L (98-107); Glomerular Filtration Rate 71.3 mL/min (90-130); Glucose 119 mg/dL (65-115); Osmolality Calculated 291 mOsm/kg (285-295); Potassium 3.8 mmol/L (3.5-5.1); Sodium 139 mmol/L (136-145); Total Bilirubin 0.2 mg/dL (0.15-1.2); Total Protein 5.6 g/dL (6.6-8.7)
[2024-07-17 05:57] LABS: Basophils # 0.1 10^3/uL (0.0-0.1); Basophils % 0.7 %; Eosinophils % 0.2 %; Hematocrit 27.1 % (36-47); Lymphocytes % 10.9 %; Mean Corpuscular HGB Conc 32.5 g/dL (30-55); Mean Corpuscular Hemoglobin 27.9 pg (27-33); Mean Platelet Volume 10.8 fL (7.4-10.4); Monocytes # 0.8 10^3/uL (0.2-0.9); Monocytes % 8.8 %; Neutrophils # 5.67 10^3/uL (1.8-7.7); Nucleated Red Blood Cells # 0.1 /100WBC; Nucleated Red Blood Cells % 0.8 %; Platelet Count 51 10^3/cmm (157-399); Red Blood Count 3.15 10^6/uL (3.85-5.65); Red Cell Distribution Width 19.2 % (12.1-15.1)
[2024-07-17 05:58] LABS: C Reactive Protein 3.5 mg/L (0.0-4.9)
[2024-07-17 06:48] LABS: Slide Review Slide Review Perform
[2024-07-17 06:49] LABS: Glucose Point of Care 122 mg/dL (70-110)
[2024-07-17 07:03] LABS: NT Pro B Type Natriuretic Pept 276 pg/mL (0-125)
[2024-07-17] MEDS: budesonide 0.5 mg/2 mL Neb INHALATION (07:58)
[2024-07-17] MEDS: venlafaxine 75 mg Tablet PO (08:13)
[2024-07-17] MEDS: NON-FORMULARY MEDICATION (Magnesium Oxide 500 mg capsule) 500 EACH PO (08:13)
[2024-07-17] MEDS: cholecalciferol (vitamin D3) 5,000 unit Tablet 5000 UNIT PO (08:13)
[2024-07-17] MEDS: ATORVASTATIN 10 MG 1 EACH PO (08:13)
[2024-07-17] MEDS: docusate sodium 100 mg Capsule 200 MG PO (08:13)
[2024-07-17] MEDS: aspirin 81 mg EC Tablet PO (08:13)
[2024-07-17] MEDS: metoprolol tartrate 25 mg Tablet PO (08:14)
[2024-07-17] MEDS: predniSONE 20 mg Tablet 40 MG PO (08:14)
[2024-07-17] MEDS: enoxaparin 40 mg/0.4 mL Syringe SUBCUT (08:14)
[2024-07-17] MEDS: gabapentin 100 mg Capsule PO (08:14)
[2024-07-17] MEDS: pantoprazole DR 40 mg Tablet PO (08:14)
[2024-07-17] MEDS: potassium chloride ER 20 mEq Tablet PO (09:03)
[2024-07-17] MEDS: FUROsemide 10 mg/mL SDV 4mL 40 MG IVP (09:03)
--- NOTE | 2024-07-17 10:32 | PM.DCS ---
Discharge Providers Date of Admission: 07/12/24 13:49 Date of Discharge: July 17, 2024 Attending Provider at Admission: Devon Snyder MD Attending Provider at Discharge: Devon Snyder MD Primary Care Provider: MAUREEN Hernandez Diagnoses at Discharge Discharge Diagnosis (1) COPD exacerbation: Status: Resolved (2) Pneumonia: Status: Resolved (3) Acute hypoxic respiratory failure: Status: Resolved (4) Diabetes: Status: Acute Qualifiers: Chronic kidney disease stage: stage 2 (mild) Diabetes mellitus complication detail: with chronic kidney disease Diabetes mellitus complication status: with kidney complications 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 driver use Diabetes mellitus type: type 2 Qualified Code(s): E11.22 - Type 2 diabetes mellitus with diabetic chronic kidney disease; N18.2 - Chronic kidney disease, stage 2 (mild); Z79.4 - senior care (current) use of insulin (5) Hypothyroidism (acquired): Status: Acute (6) Acute anemia: Status: Acute (7) Pancytopenia: Status: Acute (8) CHF exacerbation: Status: Resolved Reason for Visit Reason for Visit: Extreme SOB/wet lungs (sent by clinic) Hospital Course Hospital Course Marli Eli is a 69 year old female with past medical history of 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 Patient reports a history of lung cancer, for which she received radiation therapy back in June currently on chemotherapy, she had a session about a week ago, for the last 3 days she has had increased shortness of breath, fatigue, malaise, productive cough, does report increased lower extremity edema, no diarrhea, no new rashes Patient was admitted to [facility] for acute hypoxic respiratory failure, with underlying lung cancer, with COPD exacerbation CHF exacerbation with pneumonia. Received inpatient admission, IV antibiotics, CT chest no acute findings, steroid therapy, for acute anemia she did require 1 unit PRBC. CHF exacerbation required inpatient diuresis. Overall patient's clinical condition improved, discharged on azithromycin, with close follow-up with primary care provider as outpatient. For her anemia and thrombocytopenia, follow-up with hematology oncology as outpatient Physical Exam Const: COMMON NORMALS: no acute distress and patient oriented x3 Resp: COMMON NORMALS: normal respiratory effort, No retractions, No use of accessory muscles and clear to auscultation bilaterally AUSCULTATION: clear to auscultation bilaterally Cardio: COMMON NORMALS: regular rate, regular rhythm, S1 normal heart sound present and S2 normal heart sound present RATE: regular rate RHYTHM: regular rhythm HEART SOUNDS: S1 normal heart sound present and S2 normal heart sound present GI: COMMON NORMALS: Normal to inspection, nondistended, normoactive bowel sounds present and non-tender Extremity: COMMON NORMALS: no pedal edema Neuro: COMMON NORMALS: patient oriented x3 Psych: COMMON NORMALS: mental status grossly normal Discharge Data Studies Completed and Pending Completed Studies During Hospitalization Category Date Time Status CT angio chest PE protcl [id number] Stat Cat Scan 07/12/24 13:46 Completed XR chest 1V portable [id number] Stat Exams 07/12/24 10:49 Completed XR chest 1V portable [id number] Stat Exams 07/16/24 09:36 Completed US venous duplex lower extremity bilat [CV venous Ultrasound 07/12/24 12:24 [place] [id number]] Stat Pending at discharge Category Date Time Status Blood Culture Stat Lab 07/12/24 12:23 Results C Reactive Protein AM LABS Lab 07/18/24 04:00 Ordered C Reactive Protein AM LABS Lab 07/19/24 04:00 Ordered Complete Blood Count w/Auto AM LABS Lab 07/18/24 04:00 Ordered Comprehensive Metabolic Panel AM LABS Lab 07/18/24 04:00 Ordered NT Pro B Type Natriuretic Pept QAM Lab 07/18/24 06:00 Ordered NT Pro B Type Natriuretic Pept QAM Lab 07/19/24 06:00 Ordered Occult Blood Stool [Immunochemical Fecal OCB] Routine Lab 07/13/24 08:30 Uncollected Radiology Impressions Chest CTA 07/12/24 13:46 IMPRESSION: 1. No pulmonary embolism identified. 2. Previously described right suprahilar mass appears slightly decreased in size compared to 09/30/2023. 3. Mediastinal and of the, decreased compared to 09/30/2023. 4. Atelectasis in both lungs, above. Pneumonitis is not excluded. Chest X-Ray 07/16/24 09:36 IMPRESSION: 1. Cardiomegaly. 2. Minimal patchy infiltrate or atelectasis left lung base. Laboratory Results WBC 9.00 10^3/uL (3.29-11.43) 07/17/24 04:28 RBC 3.15 10^6/uL (3.85-5.65) L 07/17/24 04:28 Hgb 8.80 g/dL (11.27-16.99) L 07/17/24 04:28 Hct 27.1 % (36-47) L 07/17/24 04:28 MCV 86.0 fl (85-98) 07/17/24 04:28 MCH 27.9 pg (27-33) 07/17/24 04:28 MCHC 32.5 g/dL (30-55) 07/17/24 04:28 RDW 19.2 % (12.1-15.1) H 07/17/24 04:28 Plt Count 51 10^3/cmm (157-399) L 07/17/24 04:28 MPV 10.8 fL (7.4-10.4) H 07/17/24 04:28 Neut % (Auto) 63.0 % 07/17/24 04:28 Lymph % (Auto) 10.9 % 07/17/24 04:28 Gordon % (Auto) 8.8 % 07/17/24 04:28 Eos % (Auto) 0.2 % 07/17/24 04:28 Baso % (Auto) 0.7 % 07/17/24 04:28 Neut # (Auto) 5.67 10^3/uL (1.8-7.7) 07/17/24 04:28 Lymph # (Auto) 1.0 10^3/uL (0.8-4.8) 07/17/24 04:28 Gordon # (Auto) 0.8 10^3/uL (0.2-0.9) 07/17/24 04:28 Eos # (Auto) 0.0 10^3/uL (0.0-0.8) 07/17/24 04:28 Baso # (Auto) 0.1 10^3/uL (0.0-0.1) 07/17/24 04:28 Nucleated RBC % (auto) 0.8 % 07/17/24 04:28 Total Counted 100 (0-100) 07/16/24 03:18 Atypical Lymphs % 3.0 % (0-5) 07/16/24 03:18 Absolute Neutrophils 8.4 10^3/cmm (1.4-6.5) H 07/16/24 03:18 Segmented Neutrophils 68 % 07/16/24 03:18 Band Neutrophils 9.0 % 07/16/24 03:18 Absolute Lymphocytes 1.5 10^3/cmm (1.2-3.4) 07/16/24 03:18 Lymphocytes (Manual) 11 % 07/16/24 03:18 Monocytes (Manual) 3.0 % 07/16/24 03:18 Absolute Monocytes 0.3 10^3/cmm (0.1-0.6) 07/16/24 03:18 Eosinophils (Manual) 0 % 07/16/24 03:18 Absolute Eosinophils 0.0 10^3/cmm (0.0-0.7) 07/16/24 03:18 Basophils (Manual) 0.0 % 07/16/24 03:18 Absolute Basophils 0.0 10^3/cmm (0.0-0.2) 07/16/24 03:18 Metamyelocytes 10.0 % 07/16/24 03:18 Myelocytes 1.0 % 07/16/24 03:18 Promyelocytes 1.0 % 07/16/24 03:18 Nucleated RBCs # 0.1 /100WBC 07/17/24 04:28 Platelet Estimate Decreased (Normal) L 07/16/24 03:18 Specimen Type Arterial 07/12/24 11:10 Sample Site Radial, left 07/12/24 11:10 ABG pH 7.42 (7.35-7.45) 07/12/24 11:10 ABG pCO2 43.7 mmHg (35-45) 07/12/24 11:10 ABG pO2 57.8 mmHg (80.0-100.0) L 07/12/24 11:10 ABG PO2/FiO2 Ratio 152 07/12/24 11:10 ABG HCO3 28.0 mmol/L (22-26) H 07/12/24 11:10 ABG O2 Saturation 90.5 07/12/24 11:10 ABG Base Excess 3.1 mmol/L (-2.0-2.0) H 07/12/24 11:10 Leonel Test Pos 07/12/24 11:10 A-a O2 Gradient 20.8 mmHg (5-10) H 07/12/24 11:10 Hematocrit 25.1 % (37-47) L 07/12/24 11:10 Hgb O2 Saturation 87.7 % (95-100) L 07/12/24 11:10 Carboxyhemoglobin 2.6 %THgb (0.4-20.1) 07/12/24 11:10 Methemoglobin 0.5 % (0.4-1.5) 07/12/24 11:10 Total Hemoglobin 8.2 g/dL (12-16) L 07/12/24 11:10 Sodium 139.0 mmol/L (131-143) 07/12/24 11:10 Potassium 4.1 mmol/L (3.5-5.0) 07/12/24 11:10 Glucose 126.0 mg/dL (70-115) H 07/12/24 11:10 Ionized Calcium 1.2 mmol/L (1.1-1.4) 07/12/24 11:10 O2 Delivery Device Nc 07/12/24 11:10 O2 Liters/Min 4.5 % 07/12/24 11:10 FiO2 38.0 % 07/12/24 11:10 [employer] ID Cak 07/12/24 11:10 Sodium 139 mmol/L (136-145) 07/17/24 04:28 Potassium 3.8 mmol/L (3.5-5.1) 07/17/24 04:28 Chloride 100 mmol/L (98-107) 07/17/24 04:28 Carbon Dioxide 28 mmol/L (22-29) 07/17/24 04:28 Anion Gap 14.8 (5-19) 07/17/24 04:28 BUN 17 mg/dL (8-23) 07/17/24 04:28 Creatinine 0.8 mg/dL (0.5-0.9) 07/17/24 04:28 GFR Calculation 71.3 mL/min (90-130) L 07/17/24 04:28 Glucose 119 mg/dL (65-115) H 07/17/24 04:28 POC Glucose 122 mg/dL (70-110) H 07/17/24 06:45 Estimat Average Glucose 148 07/12/24 11:10 Hemoglobin A1c 6.8 % (4.0-6.0) H 07/12/24 11:10 Calculated Osmolality 291 mOsm/kg (285-295) 07/17/24 04:28 Lactic Acid 2.1 mmol/L (0.5-2.2) 07/12/24 11:10 Lactic Acid (Sepsis) 3.9 mmol/L (0.5-2.2) H 07/12/24 15:03 Calcium 8.3 mg/dL (8.5-10.5) L 07/17/24 04:28 Phosphorus 3.3 mg/dL (2.5-4.5) 07/15/24 04:29 Magnesium 2.2 mg/dL (1.7-2.3) 07/15/24 04:29 Iron 96 ug/dL (37-145) 07/13/24 04:43 TIBC 275 mcg/dl 07/13/24 04:43 % Saturation 34.9 % (20-50) 07/13/24 04:43 Unsat Iron Binding 179 ug/dL (112-347) 07/13/24 04:43 Ferritin 546 ng/mL (15-150) H 07/13/24 04:43 Total Bilirubin 0.2 mg/dL (0.15-1.2) 07/17/24 04:28 AST 10 U/L (0-32) 07/17/24 04:28 ALT 10 U/L (0-33) 07/17/24 04:28 Alkaline Phosphatase 110 U/L (35-105) H 07/17/24 04:28 Troponin T Baseline < 6 ng/L (0-10) 07/16/24 09:54 Troponin T 120 Minute 6.27 ng/L (0-10) 07/16/24 11:49 Delta Troponin T 0.56050 ABS# (0-10) 07/16/24 11:49 Troponin T Hi Sens 6Hr 6.51 ng/L (0-10) 07/16/24 15:49 Troponin T Hi Sens 6Hr Delta 0.64853 ng/L (0-12) 07/16/24 15:49 C-Reactive Protein 3.5 mg/L (0.0-4.9) 07/17/24 04:28 NT-Pro-B Natriuret Pep 276 pg/mL (0-125) H 07/17/24 04:28 Total Protein 5.6 g/dL (6.6-8.7) L 07/17/24 04:28 Albumin 3.6 g/dL (3.5-5.2) 07/17/24 04:28 Globulin 2.0 g/dL (1.3-4.6) 07/17/24 04:28 Triglycerides 130 mg/dL (0-150) 07/12/24 11:10 Cholesterol 125 mg/dL (0-200) 07/12/24 11:10 LDL Cholesterol, Calc 70 mg/dL (50-129) 07/12/24 11:10 HDL Cholesterol 29 mg/dL (60-100) L 07/12/24 11:10 LDL/HDL Ratio 2.41 RATIO (0.00-3.22) 07/12/24 11:10 Cholesterol/HDL Ratio 4.31 mg/dL (0.0-4.40) 07/12/24 11:10 Procalcitonin 0.07 ng/mL (0-0.5) 07/12/24 11:10 TSH 1.53 uIU/mL (0.27-4.20) 07/12/24 11:10 Urine Color Yellow (Yellow) 07/12/24 16:25 Urine Appearance Clear (CLEAR) 07/12/24 16:25 Urine pH 6.0 (5-7) 07/12/24 16:25 Ur Specific [place] 1.022 (1.005-1.030) 07/12/24 16:25 Urine Protein Negative (Negative) 07/12/24 16:25 Urine Glucose (UA) Trace (Normal) H 07/12/24 16:25 Urine Ketones Negative (Negative) 07/12/24 16:25 Urine Blood Negative (Negative) 07/12/24 16:25 Urine Nitrate Negative (Negative) 07/12/24 16:25 Urine Bilirubin Negative (Negative) 07/12/24 16:25 Urine Urobilinogen 0.2 mg/dL (Negative) 07/12/24 16:25 Ur Leukocyte Esterase Negative (Negative) 07/12/24 16:25 Urine RBC 0-2 /hpf (0-2) 07/12/24 16:25 Urine WBC 0-5 /hpf (0-5) 07/12/24 16:25 Ur Squamous Epith Cells 0-5 /hpf (0-5) 07/12/24 16:25 Amorphous Sediment Not Reportable 07/12/24 16:25 Urine Bacteria None seen /hpf (NONE) 07/12/24 16:25 Hyaline Casts 0.40 /lpf 07/12/24 16:25 Vancomycin Trough 23.7 ug/mL (10-15) H 07/15/24 15:00 Coronavirus (PCR) Negative (Negative) 07/12/24 11:17 Influenza A (PCR) Negative (Negative) 07/12/24 11:17 Influenza Type B (PCR) Negative (Negative) 07/12/24 11:17 RSV (PCR) Negative (Negative) 07/12/24 11:17 Blood Type A Positive 07/13/24 15:43 Rho(D) Type Rh positive 07/13/24 15:43 Antibody Screen Negative 07/13/24 15:43 Crossmatch See Detail 07/13/24 15:43 Vitals Last Vital Signs Temp 97.5 F L 07/17/24 08:00 Pulse 83 07/17/24 08:14 Resp 18 07/17/24 08:00 BP 116/77 07/17/24 08:00 Pulse Ox 95 07/17/24 08:00 O2 Del Method Nasal Cannula 07/17/24 08:00 O2 Flow Rate 3 07/17/24 07:59 Discharge Plan Discharge Patient Disposition: Home Condition: Stable Prescriptions: New azithromycin 250 mg tablet See Rx Instructions .ROUTE .COMPLEX Qty: 6 0RF Rx Instructions: For 250 mg dose pack: take 500 mg today (day 1), then 250 mg for 4 days (days 2-5) Continued aspirin 81 mg tablet,delayed release (DR/EC) 81 mg PO DAILY atorvastatin 10 mg tablet 10 mg PO DAILY 90 Days Qty: 90 2RF venlafaxine 75 mg tablet 75 mg PO DAILY insulin lispro [Humalog KwikPen Insulin] 100 unit/mL insulin pen See Rx Instructions SUBCUT TID PRN (Reason: blood sugar) Rx Instructions: Use per sliding scale subcutaneously three times daily. magnesium oxide 500 mg capsule 500 mg PO DAILY cholecalciferol (vitamin D3) 125 mcg (5,000 unit) capsule 125 mcg PO DAILY loratadine [Allergy Relief (loratadine)] 10 mg tablet 10 mg PO DAILY Ubrelvy 50 mg tablet 50 mg PO DAILY PRN (Reason: Migraine Headache) docusate sodium [Colace] 100 mg capsule 200 mg PO BID doxepin 25 mg capsule 50 mg PO BEDTIME latanoprost 0.005 % drops 1 drp ophthalmic (eye) BEDTIME gabapentin 100 mg capsule 100 mg PO DAILY bumetanide 1 mg tablet 1 mg PO DAILY Qty: 30 0RF potassium chloride [Klor-Con M20] 20 mEq tablet,ER particles/crystals See Rx Instructions .ROUTE .COMPLEX Qty: 90 0RF Dose Instruction: Take 1 tablet by mouth once daily Rx Instructions: Take 1 tablet by mouth once daily Trulicity 3 mg/0.5 mL pen injector 3 mg SUBCUT Q7D Rx Instructions: ON WEDNESDAY levothyroxine 25 mcg tablet 25 mcg PO QAM metoprolol tartrate 25 mg tablet 25 mg PO DAILY prochlorperazine maleate [Compazine] 10 mg tablet 10 mg PO Q4H PRN (Reason: Mild Nausea) Qty: 30 3RF olanzapine 5 mg tablet 5 mg PO QPM Qty: 30 3RF Rx Instructions: Take for 5 days post chemo. lorazepam 1 mg tablet 0.5 - 1 mg PO Q6H PRN (Reason: Severe Nausea) Qty: 30 3RF pantoprazole 40 mg tablet,delayed release (DR/EC) 40 mg PO DAILY Held losartan 100 mg tablet 100 mg PO DAILY 90 Days Qty: 90 0RF Hold Instructions: Resume on 07/24/24. hold until you see primary care amlodipine 5 mg tablet 5 mg PO DAILY Hold Instructions: Resume on 07/24/24. until you see primary care No Action (DME) lancets Misc See Rx Instructions .MEDSUPPLY Qty: 200 12RF Rx Instructions: Use as directed to prick skin for blood sugar checks (DME) blood-glucose meter Misc See Rx Instructions .MEDSUPPLY Qty: 1 0RF Rx Instructions: Use as directed for checking blood sugar (DME) lancets [OneTouch Delica Plus Lancet] [facility] See Rx Instructions .Route Qty: 100 0RF Rx Instructions: As directed (DME) OneTouch Ultra Test Strip See Rx Instructions .ROUTE .COMPLEX Qty: 200 0RF Dose Instruction: USE DIRECTED FOR BLOOD SUGAR Rx Instructions: USE DIRECTED FOR BLOOD SUGAR Discharge Orders: Discharge Order (Routine); Ordered 07/17/24 Ordered By: Devon Snyder Referrals: Kiesha Tavarez FNP [Primary Care Provider] - 07/19/24 3:30 pm Discharge Diet: Cardiac Discharge Activity: Resume usual activity Patient Instructions: Prednisone (By mouth), Azithromycin (By mouth), Opioid Safety Activity Restrictions/Additional Instructions: -recheck hemoglobin and platelet count on wednesday -If you develop bloody or black stools, or significant bleeding please come back to emergency room -If you develop fevers please come back to emergency room Discharge Attestations Time Spent in Discharge Care*: greater than 30 min Status at Discharge: Cognitive status at discharge: cognitively intact, Behavioral status at discharge: cooperative, Quality Metrics Clinical Quality Measures [ No reported AMI, CVA or VTE this stay] Coding Level of Care Code 38442 Total time (in minutes) for Discharge: 45 Diagnoses COPD exacerbation J44.1 Pneumonia J18.9 Acute hypoxic respiratory failure J96.01 Type 2 diabetes mellitus with stage 2 chronic kidney disease, with long-term current use of insulin E11.22; N18.2; Z79.4 Chronic kidney disease stage: stage 2 (mild) Diabetes mellitus complication detail: with chronic kidney disease Diabetes mellitus complication status: with kidney complications Diabetes mellitus 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
== END 2024-07-17 11:00 | disposition home or self-care (01) | DRG 193 ==
LOC: ER 12:39 → MEDSURG 13:50
PROVIDERS: Emergency Medicine; Internal Medicine; Admitting Provider Family Medicine; Emergency Provider Emergency Medicine; PCP Nurse Practitioner Family; Visit Provider Family Medicine
DX: J18.9 Pneumonia, unspecified organism (principal); J96.01 Acute respiratory failure with hypoxia; C34.11 Malignant neoplasm of upper lobe, right bronchus or lung; J44.0 Chronic obstructive pulmonary disease with (acute) lower respiratory infection; J44.1 Chronic obstructive pulmonary disease with (acute) exacerbation; Z68.42 Body mass index [BMI] 45.0-49.9, adult; I13.0 Hypertensive heart and chronic kidney disease with heart failure and stage 1 through stage 4 chronic kidney disease, or unspecified chronic kidney disease; D84.821 Immunodeficiency due to drugs; D61.818 Other pancytopenia; F43.10 Post-traumatic stress disorder, unspecified; F31.9 Bipolar disorder, unspecified; E03.9 Hypothyroidism, unspecified; G47.33 Obstructive sleep apnea (adult) (pediatric); E66.9 Obesity, unspecified; I50.9 Heart failure, unspecified; N18.2 Chronic kidney disease, stage 2 (mild); E11.22 Type 2 diabetes mellitus with diabetic chronic kidney disease; D69.6 Thrombocytopenia, unspecified; T45.1X5A Adverse effect of antineoplastic and immunosuppressive drugs, initial encounter; D63.1 Anemia in chronic kidney disease; K21.9 Gastro-esophageal reflux disease without esophagitis; Z79.60 Long term (current) use of unspecified immunomodulators and immunosuppressants; Z79.82 Long term (current) use of aspirin; Z79.4 Long term (current) use of insulin; Z99.81 Dependence on supplemental oxygen; Z92.3 Personal history of irradiation; Z87.891 Personal history of nicotine dependence; Z91.51 Personal history of suicidal behavior; Z86.0100 Personal history of colon polyps, unspecified; Z90.49 Acquired absence of other specified parts of digestive tract; Z80.1 Family history of malignant neoplasm of trachea, bronchus and lung; Z80.41 Family history of malignant neoplasm of ovary; Z83.3 Family history of diabetes mellitus; Z82.49 Family history of ischemic heart disease and other diseases of the circulatory system
CPT/HCPCS: 0241U; 36415; 36416; 36430; 36591; 36600; 71045; 71275; 80051; 80053; 80061; 80202; 81001; 82330; 82728; 82805; 82962; 83036; 83540; 83550; 83605; 83735; 83880; 84100; 84145; 84443; 84484; 85007; 85014; 85018; 85025; 86140; 86850; 86900; 86920; 87040; 87070; 87205; 93005; 93970; 94640; 94664; 96365; 96367; 96372; 96375; 99285; J1650; J1815; J1940; J2470; J2543; J2919; J3370; J3372; J3490; J7050; J7512; J7626; P9016

== ENCOUNTER 2024-08-02 07:46 | Oncology outpatient (recurring) (ONCR) | payer MEDICARE, MEDICAID, SELFPAY ==
[2024-07-12 10:25] LABS: Basophils # 0.1 10^3/uL (0.0-0.1); Basophils % 1.3 %; Eosinophils % 0.2 %; Hematocrit 27.7 % (36-47); Lymphocytes # 0.6 10^3/uL (0.8-4.8); Lymphocytes % 10.9 %; Mean Corpuscular Hemoglobin 27.1 pg (27-33); Mean Corpuscular Volume 87.4 fl (85-98); Mean Platelet Volume 9.8 fL (7.4-10.4); Monocytes # 0.8 10^3/uL (0.2-0.9); Neutrophils # 3.95 10^3/uL (1.8-7.7); Neutrophils % 72.7 %; Nucleated Red Blood Cells % 0 %; Platelet Count 127 10^3/cmm (157-399); Red Blood Count 3.17 10^6/uL (3.85-5.65); Red Cell Distribution Width 19.8 % (12.1-15.1); White Blood Count 5.43 10^3/uL (3.29-11.43)
[2024-07-12 10:33] LABS: Alanine Aminotransferase 11 U/L (0-33); Alkaline Phosphatase 158 U/L (35-105); Anion Gap 13.1 (5-19); Aspartate Amino Transferase 11 U/L (0-32); Blood Urea Nitrogen 11 mg/dL (8-23); Calcium 8.9 mg/dL (8.5-10.5); Carbon Dioxide 28 mmol/L (22-29); Chloride 99 mmol/L (98-107); Glomerular Filtration Rate 99.4 mL/min (90-130); Glucose 140 mg/dL (65-115); Osmolality Calculated 284 mOsm/kg (285-295); Potassium 4.1 mmol/L (3.5-5.1); Sodium 136 mmol/L (136-145); Total Bilirubin 0.3 mg/dL (0.15-1.2)
[2024-07-12 10:41] LABS: Slide Review Slide Review Perform
[2024-07-24] MEDS: alteplase 1 mg/mL SDV 2 mL 2 MG INTRACATH (08:50)
[2024-07-24 08:58] LABS: Basophils % 0.3 %; Eosinophils # 0.1 10^3/uL (0.0-0.8); Hematocrit 30.1 % (36-47); Lymphocytes # 0.7 10^3/uL (0.8-4.8); Mean Corpuscular HGB Conc 31.6 g/dL (30-55); Mean Corpuscular Hemoglobin 27.9 pg (27-33); Mean Corpuscular Volume 88.3 fl (85-98); Mean Platelet Volume 9.9 fL (7.4-10.4); Monocytes # 0.8 10^3/uL (0.2-0.9); Monocytes % 13.2 %; Neutrophils # 4.39 10^3/uL (1.8-7.7); Neutrophils % 73.2 %; Nucleated Red Blood Cells % 0 %; Platelet Count 92 10^3/cmm (157-399); Red Blood Count 3.41 10^6/uL (3.85-5.65); Red Cell Distribution Width 22.4 % (12.1-15.1)
[2024-07-24 09:14] LABS: Alanine Aminotransferase 12 U/L (0-33); Albumin Level 3.7 g/dL (3.5-5.2); Alkaline Phosphatase 98 U/L (35-105); Anion Gap 14.9 (5-19); Aspartate Amino Transferase 12 U/L (0-32); Blood Urea Nitrogen 12 mg/dL (8-23); Calcium 7.9 mg/dL (8.5-10.5); Carbon Dioxide 25 mmol/L (22-29); Chloride 102 mmol/L (98-107); Creatinine Clr Calc Pharmacy 82.9485; Globulin 2.5 g/dL (1.3-4.6); Glomerular Filtration Rate 99.4 mL/min (90-130); Glucose 126 mg/dL (65-115); Osmolality Calculated 287 mOsm/kg (285-295); Potassium 3.9 mmol/L (3.5-5.1); Sodium 138 mmol/L (136-145); Total Bilirubin 0.2 mg/dL (0.15-1.2); Total Protein 6.2 g/dL (6.6-8.7)
[2024-07-24] MEDS: sodium chloride 0.9% 250 ML 75 ML IV (11:39)
[2024-07-24] MEDS: OLANZapine 5 mg TABLET PO (11:40)
[2024-07-24] MEDS: acetaminophen 325 mg Tablet 650 MG PO (11:40)
[2024-07-24] MEDS: aprepitant 130 mg/18 ml SDV IVP (11:40)
[2024-07-24] MEDS: dexamethasone 4 mg/mL INJ 5 mL 12 MG IV (11:46)
[2024-07-24] MEDS: ondansetron 2 mg/ML SDV 2 mL 8 MG IVP (11:47)
[2024-07-24] MEDS: famotidine 20 mg/2 mL INJ IVP (11:51)
[2024-07-24] MEDS: diphenhydrAMINE 50 mg/mL SDV 1mL 25 MG IVP (11:53)
[2024-07-24] MEDS: [UNRECOGNIZED DRUG - REMARK] 506.8 MG IV (13:48)
[2024-07-24 15:00] VITALS: BP 125/70; PULSE 106; RESP 18; TEMP 36.8; O2SAT 94
[2024-07-25] MEDS: sodium chloride 0.9% 250 ML 75 ML IV (08:47)
[2024-07-25] MEDS: ondansetron 2 mg/ML SDV 2 mL 8 MG IVP (08:47)
[2024-07-25] MEDS: ipratropium-albuterol 3 mL Neb INHALATION (09:01)
[2024-07-25 09:23] VITALS: BP 108/73; PULSE 100; RESP 16; TEMP 36.8; O2SAT 91
[2024-07-25] MEDS: [UNRECOGNIZED DRUG - REMARK] 506.8 MG IV (09:23)
[2024-07-25 10:37] VITALS: BP 108/73; PULSE 100; RESP 20; TEMP 36.8; O2SAT 95
[2024-07-26 08:29] VITALS: BP 111/66; PULSE 100; RESP 22; TEMP 37.1; O2SAT 95
[2024-07-26] MEDS: sodium chloride 0.9% 250 ML 75 ML IV (08:45)
[2024-07-26] MEDS: palonosetron 0.25 mg/5 mL SDV IVP (08:47)
[2024-07-26] MEDS: [UNRECOGNIZED DRUG - REMARK] 506.8 MG IV (09:22)
[2024-07-26] MEDS: flu vacc pf 24-25 (6 mos+) SYRINGE 45 MCG IM (10:31)
[2024-07-26] MEDS: pegfilgrastim 6 mg/0.6 mL Kit (onpro) SUBCUT (10:36)
[2024-07-26 10:42] VITALS: BP 118/70; PULSE 84; TEMP 36.8; O2SAT 95
[2024-07-31 12:03] LABS: Basophils # 0.1 10^3/uL (0.0-0.1); Basophils % 0.9 %; Eosinophils # 0.1 10^3/uL (0.0-0.8); Eosinophils % 0.9 %; Hematocrit 25.5 % (36-47); Lymphocytes # 0.8 10^3/uL (0.8-4.8); Lymphocytes % 10.5 %; Mean Corpuscular HGB Conc 31.8 g/dL (30-55); Mean Corpuscular Hemoglobin 27.9 pg (27-33); Mean Corpuscular Volume 87.9 fl (85-98); Mean Platelet Volume 9.7 fL (7.4-10.4); Monocytes # 0.5 10^3/uL (0.2-0.9); Neutrophils # 5.94 10^3/uL (1.8-7.7); Neutrophils % 80.2 %; Nucleated Red Blood Cells % 0 %; Platelet Count 137 10^3/cmm (157-399); Red Cell Distribution Width 21.8 % (12.1-15.1); White Blood Count 7.42 10^3/uL (3.29-11.43)
[2024-07-31 12:16] LABS: Alanine Aminotransferase 9 U/L (0-33); Albumin Level 3.9 g/dL (3.5-5.2); Alkaline Phosphatase 127 U/L (35-105); Aspartate Amino Transferase 9 U/L (0-32); Blood Urea Nitrogen 14 mg/dL (8-23); Calcium 8.9 mg/dL (8.5-10.5); Carbon Dioxide 25 mmol/L (22-29); Chloride 100 mmol/L (98-107); Creatinine Clr Calc Pharmacy 82.2256; Globulin 2.3 g/dL (1.3-4.6); Glomerular Filtration Rate 99.4 mL/min (90-130); Glucose 120 mg/dL (65-115); Osmolality Calculated 284 mOsm/kg (285-295); Sodium 136 mmol/L (136-145); Total Bilirubin 0.2 mg/dL (0.15-1.2); Total Protein 6.2 g/dL (6.6-8.7)
[2024-07-31 13:10] LABS: Slide Review Slide Review Perform
[2024-08-02 08:06] LABS: Basophils # 0.1 10^3/uL (0.0-0.1); Basophils % 0.7 %; Eosinophils % 0.3 %; Hematocrit 25.7 % (36-47); Lymphocytes % 14.6 %; Mean Corpuscular HGB Conc 31.5 g/dL (30-55); Mean Corpuscular Hemoglobin 28.3 pg (27-33); Mean Corpuscular Volume 89.9 fl (85-98); Mean Platelet Volume 9.7 fL (7.4-10.4); Monocytes # 0.7 10^3/uL (0.2-0.9); Monocytes % 10.9 %; Neutrophils # 4.86 10^3/uL (1.8-7.7); Neutrophils % 72.5 %; Nucleated Red Blood Cells % 0.3 %; Platelet Count 102 10^3/cmm (157-399); Red Blood Count 2.86 10^6/uL (3.85-5.65); White Blood Count 6.71 10^3/uL (3.29-11.43)
[2024-08-02 08:28] LABS: Alanine Aminotransferase 12 U/L (0-33); Albumin Level 3.8 g/dL (3.5-5.2); Alkaline Phosphatase 107 U/L (35-105); Anion Gap 15.7 (5-19); Aspartate Amino Transferase 13 U/L (0-32); Blood Urea Nitrogen 14 mg/dL (8-23); Calcium 8.8 mg/dL (8.5-10.5); Carbon Dioxide 22 mmol/L (22-29); Chloride 100 mmol/L (98-107); Creatinine Clr Calc Pharmacy 82.2256; Globulin 2.2 g/dL (1.3-4.6); Glomerular Filtration Rate 71.3 mL/min (90-130); Glucose 123 mg/dL (65-115); Osmolality Calculated 280 mOsm/kg (285-295); Potassium 3.7 mmol/L (3.5-5.1); Sodium 134 mmol/L (136-145); Total Bilirubin 0.4 mg/dL (0.15-1.2)
== END 2024-08-05 23:59 | disposition home or self-care (01) ==
PROVIDERS: Internal Medicine Hematology & Oncology; Internal Medicine Medical Oncology; Nurse Practitioner Family; Absent Provider Nurse Practitioner Family; Visit Provider Internal Medicine
DX: C34.11 Malignant neoplasm of upper lobe, right bronchus or lung; D70.1 Agranulocytosis secondary to cancer chemotherapy; T45.1X5A Adverse effect of antineoplastic and immunosuppressive drugs, initial encounter; Z53.9 Procedure and treatment not carried out, unspecified reason
CPT/HCPCS: 36415; 36591; 80053; 85025; 86850; 86900; 90471; 90686; 96375; 96377; 96413; 96417; 99214; J0185; J1100; J1200; J2405; J2469; J2506; J2997; J3490; J7030; J7040; J7050; J9045; J9181

== ENCOUNTER 2024-09-05 08:00 | Oncology outpatient (recurring) (ONCR) | payer MEDICARE, MEDICAID, SELFPAY ==
[2024-08-07 11:54] LABS: Basophils % 0.5 %; Eosinophils % 0.5 %; Hematocrit 26.8 % (36-47); Lymphocytes # 0.8 10^3/uL (0.8-4.8); Lymphocytes % 13.6 %; Mean Corpuscular HGB Conc 31.7 g/dL (30-55); Mean Corpuscular Hemoglobin 29.8 pg (27-33); Mean Platelet Volume 10.2 fL (7.4-10.4); Monocytes # 0.6 10^3/uL (0.2-0.9); Monocytes % 9.6 %; Neutrophils # 4.26 10^3/uL (1.8-7.7); Neutrophils % 74.6 %; Nucleated Red Blood Cells % 0 %; Platelet Count 128 10^3/cmm (157-399); Red Blood Count 2.85 10^6/uL (3.85-5.65); Red Cell Distribution Width 24.7 % (12.1-15.1); White Blood Count 5.72 10^3/uL (3.29-11.43)
[2024-08-07 12:09] LABS: Alanine Aminotransferase 11 U/L (0-33); Albumin Level 3.9 g/dL (3.5-5.2); Alkaline Phosphatase 98 U/L (35-105); Anion Gap 17.2 (5-19); Aspartate Amino Transferase 10 U/L (0-32); Blood Urea Nitrogen 12 mg/dL (8-23); Calcium 8.7 mg/dL (8.5-10.5); Carbon Dioxide 23 mmol/L (22-29); Chloride 102 mmol/L (98-107); Globulin 2.4 g/dL (1.3-4.6); Glomerular Filtration Rate 83.2 mL/min (90-130); Glucose 105 mg/dL (65-115); Osmolality Calculated 286 mOsm/kg (285-295); Potassium 4.2 mmol/L (3.5-5.1); Sodium 138 mmol/L (136-145); Total Bilirubin 0.3 mg/dL (0.15-1.2); Total Protein 6.3 g/dL (6.6-8.7)
[2024-08-14 08:43] LABS: Basophils % 0.5 %; Eosinophils % 0.4 %; Lymphocytes # 0.7 10^3/uL (0.8-4.8); Lymphocytes % 8.9 %; Mean Corpuscular Hemoglobin 29.5 pg (27-33); Mean Corpuscular Volume 95.1 fl (85-98); Mean Platelet Volume 10.1 fL (7.4-10.4); Monocytes # 0.6 10^3/uL (0.2-0.9); Monocytes % 8.1 %; Neutrophils # 6.16 10^3/uL (1.8-7.7); Neutrophils % 81.3 %; Nucleated Red Blood Cells % 0 %; Platelet Count 151 10^3/cmm (157-399); Red Blood Count 3.05 10^6/uL (3.85-5.65); White Blood Count 7.57 10^3/uL (3.29-11.43)
[2024-08-14 09:00] LABS: Alanine Aminotransferase 9 U/L (0-33); Albumin Level 4.1 g/dL (3.5-5.2); Alkaline Phosphatase 87 U/L (35-105); Anion Gap 16.9 (5-19); Aspartate Amino Transferase 10 U/L (0-32); Blood Urea Nitrogen 11 mg/dL (8-23); Calcium 9.5 mg/dL (8.5-10.5); Carbon Dioxide 23 mmol/L (22-29); Chloride 102 mmol/L (98-107); Creatinine Clr Calc Pharmacy 80.4427; Globulin 2.6 g/dL (1.3-4.6); Glomerular Filtration Rate 83.2 mL/min (90-130); Glucose 107 mg/dL (65-115); Osmolality Calculated 286 mOsm/kg (285-295); Potassium 3.9 mmol/L (3.5-5.1); Sodium 138 mmol/L (136-145); Total Bilirubin 0.3 mg/dL (0.15-1.2); Total Protein 6.7 g/dL (6.6-8.7)
[2024-08-14] MEDS: sodium chloride 0.9% 250 ML 75 ML IV (09:57)
[2024-08-14] MEDS: acetaminophen 325 mg Tablet 650 MG PO (09:58)
[2024-08-14] MEDS: OLANZapine 5 mg TABLET PO (09:58)
[2024-08-14] MEDS: dexamethasone 4 mg/mL INJ 5 mL 12 MG IV (09:59)
[2024-08-14] MEDS: famotidine 20 mg/2 mL INJ IVP (10:02)
[2024-08-14] MEDS: diphenhydrAMINE 50 mg/mL SDV 1mL 25 MG IVP (10:04)
[2024-08-14] MEDS: ondansetron 2 mg/ML SDV 2 mL 8 MG IVP (10:05)
[2024-08-14] MEDS: aprepitant 130 mg/18 ml SDV IVP (10:16)
[2024-08-14] MEDS: [UNRECOGNIZED DRUG - REMARK] 506.8 MG IV (12:29)
[2024-08-14 13:40] VITALS: BP 120/79; PULSE 96; RESP 16; TEMP 36.6; O2SAT 94
[2024-08-15 08:38] VITALS: BP 101/64; PULSE 98; RESP 18; TEMP 36; O2SAT 98
[2024-08-15] MEDS: sodium chloride 0.9% 250 ML 75 ML IV (09:03)
[2024-08-15] MEDS: ondansetron 2 mg/ML SDV 2 mL 8 MG IVP (09:07)
[2024-08-15] MEDS: [UNRECOGNIZED DRUG - REMARK] 506.8 MG IV (09:43)
[2024-08-15 11:03] VITALS: BP 143/87; PULSE 91; RESP 16; TEMP 36.8; O2SAT 98
[2024-08-16 08:58] VITALS: BP 103/71; PULSE 78; RESP 16; TEMP 36.1; O2SAT 99
[2024-08-16] MEDS: sodium chloride 0.9% 250 ML 75 ML IV (09:12)
[2024-08-16] MEDS: palonosetron 0.25 mg/5 mL SDV IVP (09:12)
[2024-08-16] MEDS: [UNRECOGNIZED DRUG - REMARK] 506.8 MG IV (09:40)
[2024-08-16] MEDS: pegfilgrastim 6 mg/0.6 mL Kit (onpro) SUBCUT (10:48)
[2024-08-16 10:50] VITALS: BP 117/71; PULSE 88; RESP 16; TEMP 36.1; O2SAT 98
[2024-09-04 09:30] LABS: Basophils % 0.2 %; Eosinophils % 0.9 %; Hematocrit 23.2 % (36-47); Lymphocytes # 0.6 10^3/uL (0.8-4.8); Lymphocytes % 12.6 %; Mean Corpuscular HGB Conc 32.3 g/dL (30-55); Mean Corpuscular Hemoglobin 31.8 pg (27-33); Mean Corpuscular Volume 98.3 fl (85-98); Mean Platelet Volume 10.4 fL (7.4-10.4); Monocytes # 0.5 10^3/uL (0.2-0.9); Monocytes % 10.3 %; Neutrophils # 3.49 10^3/uL (1.8-7.7); Neutrophils % 74.7 %; Nucleated Red Blood Cells % 0 %; Platelet Count 67 10^3/cmm (157-399); Red Blood Count 2.36 10^6/uL (3.85-5.65); Red Cell Distribution Width 24.2 % (12.1-15.1); White Blood Count 4.67 10^3/uL (3.29-11.43)
[2024-09-04 09:47] LABS: Alanine Aminotransferase 8 U/L (0-33); Alkaline Phosphatase 114 U/L (35-105); Anion Gap 15.9 (5-19); Aspartate Amino Transferase 10 U/L (0-32); Blood Urea Nitrogen 12 mg/dL (8-23); Calcium 9.5 mg/dL (8.5-10.5); Carbon Dioxide 24 mmol/L (22-29); Chloride 101 mmol/L (98-107); Creatinine Clr Calc Pharmacy 80.4427; Globulin 2.7 g/dL (1.3-4.6); Glomerular Filtration Rate 83.2 mL/min (90-130); Glucose 118 mg/dL (65-115); Osmolality Calculated 285 mOsm/kg (285-295); Potassium 3.9 mmol/L (3.5-5.1); Sodium 137 mmol/L (136-145); Total Bilirubin 0.4 mg/dL (0.15-1.2); Total Protein 6.7 g/dL (6.6-8.7)
[2024-09-05] VITALS (9 sets, daily range): BP systolic 103–116; BP diastolic 62–81; PULSE 80–102; RESP 18; TEMP 35.9–36.6; O2SAT 96–100
[2024-09-05] MEDS: diphenhydrAMINE 25 mg Capsule PO (09:16)
[2024-09-05] MEDS: acetaminophen 325 mg Tablet 650 MG PO (09:16)
== END 2024-09-05 23:59 | disposition home or self-care (01) ==
PROVIDERS: Absent Provider Nurse Practitioner Family; PCP Nurse Practitioner Family; Visit Provider Internal Medicine Medical Oncology
DX: D64.9 Anemia, unspecified (principal); Z53.9 Procedure and treatment not carried out, unspecified reason; Z79.899 Other long term (current) drug therapy
CPT/HCPCS: 36430; 36591; 80053; 85025; 86850; 86900; 86920; 96375; 96377; 96413; 96417; 99214; J0185; J1100; J1200; J2405; J2469; J2506; J3490; J7030; J7040; J7050; J9045; J9181; P9016

== ENCOUNTER 2024-10-03 09:45 | Oncology outpatient (recurring) (ONCR) | payer MEDICARE, MEDICAID, SELFPAY ==
--- NOTE | 2024-09-08 14:00 | PETR_ITS ---
PROCEDURE INFORMATION: Exam: PET/CT Skull Base to Mid-thigh Exam date and time: 09/08/2024 2:50 PM Age: 69 years old Clinical indication: Condition or disease; Primary cancer: Small cell carcinoma; Follow-up oncological assessment; Prior surgery; Surgery date: 6+ months; Surgery type: Port; Additional info: Small cell carcinoma, no prior pets available, changed to initial LABS AND CLINICAL REPORTS: Glucose: 122 mg/dl Treatment strategy for malignancy (PET staging): Restaging (PS) TECHNIQUE: Imaging protocol: Following at least four-hour fasting and following the injection of radiopharmaceutical, low dose CT images were obtained. Then, PET images were obtained. Attenuation corrected images were constructed using the CT scan. Fused images of PET and CT were reviewed. The standardized uptake values (SUV) reported below are maximum values within a region of interest, expressed in gm/ml. Exam includes orbital meatal line to mid-thigh. SUV normalization method: BodyWeight Radiopharmaceutical: 11.65 mCi F-18 FDG (Fluorodeoxyglucose), IV. Time of imaging post radiopharmaceutical administration: 55 minutes Injection site: RIGHT AC COMPARISON: 1. CT angio chest PE protcl [id number] 09/30/2023 1:[address] angio chest PE protcl [id number] 07/12/2024 2:30 PM FINDINGS: Tubes, catheters and devices: Left chest port terminates at the right atrium. Brain: Visualized brain has normal physiologic uptake. Pharynx: No abnormal uptake. Larynx: No abnormal uptake. Lungs, pleura and trachea: Intervally stable right suprahilar masslike consolidation with heterogeneous FDG uptake showing SUV max 4.0, decreased size compared to September 2023. Heart: Normal physiologic uptake. Mediastinal space: No abnormal uptake. Diaphragm: Small hiatal hernia. Esophagus: Couple foci upper esophageal FDG uptake, most avid on axial image 461 with SUV max 8.0. No discrete underlying mass on CT. Liver: No abnormal uptake. Gallbladder and biliary ducts: No abnormal uptake. Pancreas: No abnormal uptake. Spleen: No abnormal uptake. Adrenal glands: No abnormal uptake. Kidneys and ureters: Normal physiologic uptake. Stomach and bowel: No abnormal uptake. Vasculature: No abnormal uptake. Mild systemic atherosclerotic calcification without aortic aneurysm. Lymph nodes: No abnormal uptake. No lymphadenopathy in the head, neck, chest, abdomen, pelvis, and extremities. Skeleton: Diffuse FDG uptake throughout the axial and imaged proximal appendicular skeletal system without underlying CT abnormality. Soft tissues: No abnormal uptake in the visualized head, neck, chest, abdomen, pelvis, and extremities. Mild ventral abdominal wall subcutaneous stranding likely related to injections. METRICS: Mediastinal blood pool: SUV mean 2.6 Liver uptake: SUV mean 3.4 PET/PET skull to thigh INIT 19674 IMPRESSION: 1. Mildly metabolic right suprahilar masslike consolidation with grossly stable size from July 2024, decreased from September 2023. 2. Couple foci upper esophageal FDG uptake without discrete underlying mass on CT. Could be inflammatory or neoplastic. 3. Diffuse FDG uptake throughout the bones without underlying CT abnormality may be on the basis of hyperplasia, neoplastic process not excluded.
[2024-09-12 08:15] LABS: Basophils % 0.6 %; Eosinophils # 0.1 10^3/uL (0.0-0.8); Eosinophils % 1.9 %; Hematocrit 29.8 % (36-47); Lymphocytes # 0.6 10^3/uL (0.8-4.8); Lymphocytes % 12.3 %; Mean Corpuscular HGB Conc 32.6 g/dL (30-55); Mean Corpuscular Hemoglobin 30.7 pg (27-33); Mean Corpuscular Volume 94.3 fl (85-98); Mean Platelet Volume 9.3 fL (7.4-10.4); Monocytes # 0.6 10^3/uL (0.2-0.9); Monocytes % 12.9 %; Neutrophils # 3.33 10^3/uL (1.8-7.7); Neutrophils % 71.7 %; Nucleated Red Blood Cells % 0 %; Platelet Count 149 10^3/cmm (157-399); Red Blood Count 3.16 10^6/uL (3.85-5.65); Red Cell Distribution Width 21.4 % (12.1-15.1); White Blood Count 4.65 10^3/uL (3.29-11.43)
[2024-09-12 08:31] LABS: Alanine Aminotransferase 8 U/L (0-33); Albumin Level 3.9 g/dL (3.5-5.2); Alkaline Phosphatase 105 U/L (35-105); Anion Gap 17.8 (5-19); Aspartate Amino Transferase 11 U/L (0-32); Blood Urea Nitrogen 12 mg/dL (8-23); Calcium 9.1 mg/dL (8.5-10.5); Carbon Dioxide 24 mmol/L (22-29); Chloride 101 mmol/L (98-107); Globulin 2.4 g/dL (1.3-4.6); Glomerular Filtration Rate 99.4 mL/min (90-130); Glucose 148 mg/dL (65-115); Osmolality Calculated 291 mOsm/kg (285-295); Potassium 3.8 mmol/L (3.5-5.1); Sodium 139 mmol/L (136-145); Total Bilirubin 0.3 mg/dL (0.15-1.2); Total Protein 6.3 g/dL (6.6-8.7)
[2024-09-12] MEDS: ipratropium-albuterol 3 mL Neb INHALATION (11:13)
[2024-09-12] MEDS: sodium chloride 0.9% 250 ML 75 ML IV (11:52)
[2024-09-12] MEDS: OLANZapine 5 mg TABLET PO (11:54)
[2024-09-12] MEDS: acetaminophen 325 mg Tablet 650 MG PO (11:54)
[2024-09-12] MEDS: aprepitant 130 mg/18 ml SDV IVP (11:55)
[2024-09-12] MEDS: famotidine 20 mg/2 mL INJ IVP (11:58)
[2024-09-12] MEDS: ondansetron 2 mg/ML SDV 2 mL 8 MG IVP (12:00)
[2024-09-12] MEDS: diphenhydrAMINE 50 mg/mL SDV 1mL 25 MG IVP (12:04)
[2024-09-12] MEDS: dexamethasone 4 mg/mL INJ 5 mL 12 MG IV (12:08)
[2024-09-12] MEDS: SODIUM CHLORIDE 0.9% IV (12:36)
[2024-09-12] MEDS: CARBOPLATIN IV (12:36)
[2024-09-12] MEDS: [UNRECOGNIZED DRUG - REMARK] 506.8 MG IV (13:58)
[2024-09-12 15:39] VITALS: BP 134/78; PULSE 98; RESP 18; TEMP 36.6; O2SAT 97
[2024-09-13 07:51] VITALS: BP 138/83; PULSE 101; RESP 17; TEMP 35.9; O2SAT 99
[2024-09-13] MEDS: ondansetron 2 mg/ML SDV 2 mL 8 MG IVP (08:13)
[2024-09-13] MEDS: sodium chloride 0.9% 250 ML 75 ML IV (08:13)
[2024-09-13] MEDS: [UNRECOGNIZED DRUG - REMARK] 506.8 MG IV (08:53)
[2024-09-13 10:20] VITALS: BP 137/85; PULSE 73; TEMP 35.8; O2SAT 99
[2024-09-14 07:47] VITALS: BP 115/71; PULSE 75; RESP 17; TEMP 36.9; O2SAT 99
[2024-09-14] MEDS: sodium chloride 0.9% 250 ML 75 ML IV (08:20)
[2024-09-14] MEDS: palonosetron 0.25 mg/5 mL SDV IVP (08:23)
[2024-09-14] MEDS: [UNRECOGNIZED DRUG - REMARK] 506.8 MG IV (09:05)
[2024-09-14] MEDS: pegfilgrastim 6 mg/0.6 mL Kit (onpro) SUBCUT (10:43)
[2024-09-14 10:50] VITALS: BP 120/82; PULSE 81; RESP 17; TEMP 36.1; O2SAT 99
[2024-10-03 09:38] LABS: Basophils % 0.5 %; Eosinophils # 0.1 10^3/uL (0.0-0.8); Eosinophils % 1.3 %; Hematocrit 29.2 % (36-47); Lymphocytes # 0.8 10^3/uL (0.8-4.8); Lymphocytes % 14.3 %; Mean Corpuscular HGB Conc 31.8 g/dL (30-55); Mean Corpuscular Hemoglobin 31.7 pg (27-33); Mean Corpuscular Volume 99.7 fl (85-98); Mean Platelet Volume 9.2 fL (7.4-10.4); Monocytes # 0.6 10^3/uL (0.2-0.9); Monocytes % 10.6 %; Neutrophils # 4.04 10^3/uL (1.8-7.7); Neutrophils % 72.4 %; Nucleated Red Blood Cells % 0 %; Platelet Count 156 10^3/cmm (157-399); Red Blood Count 2.93 10^6/uL (3.85-5.65); Red Cell Distribution Width 20.4 % (12.1-15.1); White Blood Count 5.58 10^3/uL (3.29-11.43)
[2024-10-03 10:02] LABS: Alanine Aminotransferase 8 U/L (0-33); Albumin Level 4.2 g/dL (3.5-5.2); Alkaline Phosphatase 113 U/L (35-105); Anion Gap 16.8 (5-19); Aspartate Amino Transferase 9 U/L (0-32); Blood Urea Nitrogen 14 mg/dL (8-23); Calcium 9.2 mg/dL (8.5-10.5); Carbon Dioxide 24 mmol/L (22-29); Chloride 102 mmol/L (98-107); Globulin 2.4 g/dL (1.3-4.6); Glomerular Filtration Rate 99.4 mL/min (90-130); Glucose 99 mg/dL (65-115); Osmolality Calculated 289 mOsm/kg (285-295); Potassium 3.8 mmol/L (3.5-5.1); Sodium 139 mmol/L (136-145); Total Bilirubin 0.2 mg/dL (0.15-1.2); Total Protein 6.6 g/dL (6.6-8.7)
== END 2024-10-03 23:59 | disposition home or self-care (01) ==
PROVIDERS: Internal Medicine Medical Oncology; Nurse Practitioner; Absent Provider Nurse Practitioner Family; PCP Nurse Practitioner Family; Visit Provider Internal Medicine
DX: C34.11 Malignant neoplasm of upper lobe, right bronchus or lung (principal); Z53.9 Procedure and treatment not carried out, unspecified reason; Z87.891 Personal history of nicotine dependence; Z92.3 Personal history of irradiation; Z92.21 Personal history of antineoplastic chemotherapy; Z79.899 Other long term (current) drug therapy; D75.9 Disease of blood and blood-forming organs, unspecified; D64.9 Anemia, unspecified; D69.6 Thrombocytopenia, unspecified
CPT/HCPCS: 78815; 80053; 85025; 96368; 96375; 96377; 96413; 99214; A9552; J0185; J1100; J1200; J2405; J2469; J2506; J3490; J7030; J7040; J7050; J9045; J9181

== ENCOUNTER 2024-11-07 12:47 | Oncology outpatient (recurring) (ONCR) | payer MEDICARE, MEDICAID, SELFPAY | END 2024-12-04 23:59 | disposition home or self-care (01) | PROVIDERS: Absent Provider Nurse Practitioner Family; PCP Nurse Practitioner Family; Visit Provider Internal Medicine | DX: Z45.2 Encounter for adjustment and management of vascular access device (principal) | CPT/HCPCS: 96523 ==

== ENCOUNTER 2024-11-14 13:39 | Emergency (ER) | payer MEDICARE, MEDICAID, SELFPAY ==
[2024-11-14] VITALS (9 sets, daily range): BP systolic 93–133; BP diastolic 69–98; PULSE 91–101; RESP 14–21; TEMP 36.7; O2SAT 90–95; BMI 43.4
--- NOTE | 2024-11-14 14:25 | ECG_ITS ---
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 Measurements Intervals [place] Rate: 97 P: 56 NM: 158 QRS: 79 QRSD: 143 T: 43 QT: 383 QTc: 488 Interpretive Statements SINUS RHYTHM RIGHT BUNDLE BRANCH BLOCK [120+ ms QRS DURATION, UPRIGHT V1, 40+ ms S IN I/aVL/V4/V5/V6] Compared to ECG 07/16/2024 09:29:58 No significant changes Electronically Signed On 11-17-2024 19:15:21 CDT by Nitish Valle M.D. [email or web address]
--- NOTE | 2024-11-14 14:35 | W.ED.SYNCOPE ---
Documented by User: Carlos Almeida, 11/15/24 05:50 HPI - Syncope General: Chief Complaint: Syncope Stated Complaint: passed out last night / landed on bed /light head Time Seen by Provider: 11/14/24 14:12 History of Present Illness: 69-year-old female presents to the emergency room with an episode of syncope that occurred last night. This is the second time she is passed out. She got up from bed 1 to the bathroom relieved herself and then was headed back to the bathroom became lightheaded dizzy passed out and fell on her bed. Patient has a history of lung cancer for which she is undergoing chemo and radiation she is about to go another round of evaluation to restage her after the latest treatments. She has had problems with anemia in the past. Associated symptoms: Deny abdominal pain, chest pain or fever(s) Related Data Home Medications ?Medication ?Instructions ?Recorded ?Confirmed aspirin 81 mg tablet,delayed 81 mg PO DAILY 10/17/19 11/14/24 release cholecalciferol (vitamin D3) 125 125 mcg PO DAILY 08/02/23 11/14/24 mcg (5,000 unit) capsule insulin lispro 100 unit/mL See Rx Instructions SUBCUT TID PRN 08/02/23 11/14/24 subcutaneous pen (Humalog KwikPen blood sugar (U-100) Insulin) loratadine 10 mg tablet (Allergy 10 mg PO DAILY 08/02/23 11/14/24 Relief (loratadine)) magnesium oxide 500 mg capsule 500 mg PO DAILY 08/02/23 11/14/24 dulaglutide 3 mg/0.5 mL 3 mg SUBCUT Q7D 03/22/24 11/14/24 subcutaneous pen injector (Trulicity) levothyroxine 25 mcg tablet 25 mcg PO QAM 03/22/24 11/14/24 metoprolol tartrate 25 mg tablet 25 mg PO DAILY 03/22/24 11/14/24 docusate sodium 100 mg capsule 200 mg PO BID 05/29/24 11/14/24 (Colace) doxepin 25 mg capsule 50 mg PO BEDTIME 05/29/24 11/14/24 latanoprost 0.005 % eye drops 1 drp ophthalmic (eye) BEDTIME 05/29/24 11/14/24 gabapentin 100 mg capsule 100 mg PO DAILY 06/07/24 11/14/24 amlodipine 5 mg tablet 5 mg PO DAILY 07/12/24 11/14/24 Held on 07/17/24. Instructions: Resume on 07/24/24. until you see primary care lactulose 10 gram/15 mL oral See Rx Instructions .Route .COMPLEX 11/14/24 11/14/24 solution (Constulose) losartan 100 mg tablet 100 mg PO DAILY 11/14/24 11/14/24 ofloxacin 0.3 % eye drops 1 drp ophthalmic (eye) QID 11/14/24 11/14/24 venlafaxine 150 mg 150 mg PO DAILY 11/14/24 11/14/24 capsule,extended release 24 hr Previous Rx's ?Medication ?Instructions ?Recorded blood-glucose meter #1 ea 08/19/23 lancets #200 ea 08/19/23 bumetanide 1 mg tablet 1 mg PO DAILY #30 tabs 11/05/23 atorvastatin 10 mg tablet 10 mg PO DAILY 90 days #90 tabs 01/05/24 lancets 33 gauge (OneTouch Delica #100 ea 02/07/24 Plus Lancet) pantoprazole 40 mg tablet,delayed 40 mg PO BID #180 tabs 08/18/24 release blood sugar diagnostic (OneTouch #200 ea 09/12/24 Ultra Test strips) potassium chloride 20 mEq See Rx Instructions .Route 10/30/24 tablet,extended .COMPLEX #90 tabs release(part/cryst) (Klor-Con M) Allergies Allergy/AdvReac Type Severity Reaction Status Date / Time codeine Allergy Unknown ADR-Nausea Verified 10/03/24 10:37 ketorolac (From Toradol) Allergy Unknown Verified 10/03/24 10:37 melatonin Allergy ADR-Nausea Verified 10/03/24 10:37 Review of Systems Const: Denies: fever(s) or chills Card: Denies: chest pain Resp: Denies: dyspnea GI: Denies: abdominal pain : Denies: dysuria, urinary frequency or urinary urgency Musc: Denies: neck pain or back pain Skin/Breast: Denies: rash PFSH ED PFSH: Medical History Small cell lung cancer Nicotine use disorder PTSD (post-traumatic stress disorder) Bipolar disorder current episode depressed Psychiatric care History of attempted suicide Hypothyroidism (acquired) Duodenitis Gastritis Sleep apnea Obesity Bipolar affect, depressed Depression Hypertension Diabetes Oxygen dependent CHF (congestive heart failure) GERD (gastroesophageal reflux disease) COPD (chronic obstructive pulmonary disease) 3L o2 , mild to mod copd responsive to bronchodilator Enrolled in chronic care management Surgical History History of appendectomy H/O colonoscopy with polypectomy H/O esophagogastroduodenoscopy Tubal ligation status S/P cholecystectomy Family History Father Lung cancer Sister Ovarian cancer Mother Diabetes Other CAD (coronary artery disease) Social History Smoking and tobacco/nicotine status: former use of tobacco/nicotine Alcohol intake: former Year of sobriety/quit date alcohol: 1999 Substance/Drug Use: never Adopted: No Caregiver/support person: No Lives independently: No Household members: family Housing: House Current gender identity: Female Physical Exam Const: ORIENTATION/CONSCIOUSNESS: Yes awake, Yes oriented to person, Yes oriented to place and Yes oriented to time HENMT: COMMON NORMALS: normocephalic, atraumatic and hearing grossly normal bilaterally HEAD & SCALP: normocephalic and atraumatic Resp: AUSCULTATION: rhonchi and wheezes Cardio: COMMON NORMALS: regular rate, regular rhythm and No murmurs present (Cardio) RATE: regular rate RHYTHM: regular rhythm GI: COMMON NORMALS: Soft to palpation and No hepatosplenomegaly present AUSCULTATION: Yes normoactive bowel sounds PALPATION: Yes Soft to palpation, No Tenderness to palpation present (GI), No Guarding due to palpation present (GI) and Yes No hepatosplenomegaly present Extremity: COMMON NORMALS: normal to inspection, capillary refill normal, no clubbing, cyanosis or edema, no calf tenderness and no pedal edema Neuro: SENSORIUM/ORIENTATION: Yes oriented to person, Yes oriented to place and Yes oriented to time Skin: COMMON NORMALS: no rashes or lesions noted GENERAL SKIN EXAM: no rashes or lesions noted Course Vital Signs: Vital signs: Vital Signs Temperature 98.0 F 11/14/24 13:48 Pulse Rate 93 11/14/24 20:09 Respiratory Rate 16 11/14/24 20:09 Blood Pressure 117/98 11/14/24 20:09 Pulse Oximetry 95 11/14/24 20:09 Oxygen Delivery Me thod Room Air 11/14/24 19:00 MDM - Syncope Medical Decision Making Care signed out to Dr. Calvillo at change of shift. See final notes for diagnosis and disposition. Lab Data 11/14/24 14:40 11/14/24 14:40 Radiology Impressions Chest X-Ray 11/14/24 14:37 IMPRESSION: No acute findings. Laboratory Results WBC 5.87 10^3/uL (3.29-11.43) 11/14/24 14:40 RBC 3.51 10^6/uL (3.85-5.65) L 11/14/24 14:40 Hgb 11.10 g/dL (11.27-16.99) L 11/14/24 14:40 Hct 34.3 % (36-47) L 11/14/24 14:40 MCV 97.7 fl (85-98) 11/14/24 14:40 MCH 31.6 pg (27-33) 11/14/24 14:40 MCHC 32.4 g/dL (30-55) 11/14/24 14:40 RDW 14.6 % (12.1-15.1) 11/14/24 14:40 Plt Count 216 10^3/cmm (157-399) 11/14/24 14:40 MPV 9.2 fL (7.4-10.4) 11/14/24 14:40 Neut % (Auto) 74.7 % 11/14/24 14:40 Lymph % (Auto) 13.6 % 11/14/24 14:40 [place] % (Auto) 9.0 % 11/14/24 14:40 Eos % (Auto) 1.7 % 11/14/24 14:40 Baso % (Auto) 0.5 % 11/14/24 14:40 Neut # (Auto) 4.38 10^3/uL (1.8-7.7) 11/14/24 14:40 Lymph # (Auto) 0.8 10^3/uL (0.8-4.8) 11/14/24 14:40 [place] # (Auto) 0.5 10^3/uL (0.2-0.9) 11/14/24 14:40 Eos # (Auto) 0.1 10^3/uL (0.0-0.8) 11/14/24 14:40 Baso # (Auto) 0.0 10^3/uL (0.0-0.1) 11/14/24 14:40 Nucleated RBC % (auto) 0 % 11/14/24 14:40 Nucleated RBCs # 0.0 /100WBC 11/14/24 14:40 Sodium 136 mmol/L (136-145) 11/14/24 14:40 Potassium 4.0 mmol/L (3.5-5.1) 11/14/24 14:40 Chloride 99 mmol/L (98-107) 11/14/24 14:40 Carbon Dioxide 26 mmol/L (22-29) 11/14/24 14:40 Anion Gap 15.0 (5-19) 11/14/24 14:40 BUN 14 mg/dL (8-23) 11/14/24 14:40 Creatinine 0.6 mg/dL (0.5-0.9) 11/14/24 14:40 GFR Calculation 99.4 mL/min (90-130) 11/14/24 14:40 Glucose 99 mg/dL (65-115) 11/14/24 14:40 Calculated Osmolality 283 mOsm/kg (285-295) L 11/14/24 14:40 Calcium 9.2 mg/dL (8.5-10.5) 11/14/24 14:40 Total Bilirubin 0.2 mg/dL (0.15-1.2) 11/14/24 14:40 AST 11 U/L (0-32) 11/14/24 14:40 ALT 9 U/L (0-33) 11/14/24 14:40 Alkaline Phosphatase 100 U/L (35-105) 11/14/24 14:40 Troponin T Baseline < 6 ng/L (0-10) 11/14/24 14:40 Troponin T 120 Minute 6.00 ng/L (0-10) 11/14/24 17:10 Delta Troponin T 0.05696 ABS# (0-10) 11/14/24 17:10 Total Protein 6.1 g/dL (6.6-8.7) L 11/14/24 14:40 Albumin 4.1 g/dL (3.5-5.2) 11/14/24 14:40 Globulin 2.0 g/dL (1.3-4.6) 11/14/24 14:40 Urine Color Yellow (Yellow) 11/14/24 15:35 Urine Appearance Clear (CLEAR) 11/14/24 15:35 Urine pH 7.0 (5-7) 11/14/24 15:35 Ur Specific [place] 1.009 (1.005-1.030) 11/14/24 15:35 Urine Protein Negative (Negative) 11/14/24 15:35 Urine Glucose (UA) Negative (Normal) 11/14/24 15:35 Urine Ketones Negative (Negative) 11/14/24 15:35 Urine Blood Negative (Negative) 11/14/24 15:35 Urine Nitrate Negative (Negative) 11/14/24 15:35 Urine Bilirubin Negative (Negative) 11/14/24 15:35 Urine Urobilinogen 1.0 mg/dL (Negative) 11/14/24 15:35 Ur Leukocyte Esterase Negative (Negative) 11/14/24 15:35 Urine RBC 0-2 /hpf (0-2) 11/14/24 15:35 Urine WBC 0-5 /hpf (0-5) 11/14/24 15:35 Ur Squamous Epith Cells 0-5 /hpf (0-5) 11/14/24 15:35 Amorphous Sediment Not Reportable 11/14/24 15:35 Urine Bacteria None seen /hpf (NONE) 11/14/24 15:35 Hyaline Casts 0-4 /lpf H 11/14/24 15:35 Discharge Plan Discharge Patient Disposition: Home Clinical Impression: Syncope, Dehydration Condition: Stable Prescriptions: No Action aspirin 81 mg tablet,delayed release (DR/EC) 81 mg PO DAILY atorvastatin 10 mg tablet 10 mg PO DAILY 90 Days Qty: 90 2RF insulin lispro [Humalog KwikPen Insulin] 100 unit/mL insulin pen See Rx Instructions SUBCUT TID PRN (Reason: blood sugar) Rx Instructions: Use per sliding scale subcutaneously three times daily. magnesium oxide 500 mg capsule 500 mg PO DAILY cholecalciferol (vitamin D3) 125 mcg (5,000 unit) capsule 125 mcg PO DAILY loratadine [Allergy Relief (loratadine)] 10 mg tablet 10 mg PO DAILY (DME) lancets Misc See Rx Instructions .MEDSUPPLY Qty: 200 12RF Rx Instructions: Use as directed to prick skin for blood sugar checks docusate sodium [Colace] 100 mg capsule 200 mg PO BID doxepin 25 mg capsule 50 mg PO BEDTIME latanoprost 0.005 % drops 1 drp ophthalmic (eye) BEDTIME gabapentin 100 mg capsule 100 mg PO DAILY (DME) blood-glucose meter Mis See Rx Instructions .MEDSUPPLY Qty: 1 0RF Rx Instructions: Use as directed for checking blood sugar bumetanide 1 mg tablet 1 mg PO DAILY Qty: 30 0RF (DME) lancets [OneTouch Delica Plus Lancet] 33 gauge misc See Rx Instructions .Route Qty: 100 0RF Rx Instructions: As directed pantoprazole 40 mg tablet,delayed release (DR/EC) 40 mg PO BID Qty: 180 0RF Rx Instructions: dose increase (DME) OneTouch Ultra Test Strip See Rx Instructions .ROUTE .COMPLEX Qty: 200 0RF Dose Instruction: USE DIRECTED FOR BLOOD SUGAR Rx Instructions: USE DIRECTED FOR BLOOD SUGAR potassium chloride [Klor-Con M20] 20 mEq tablet,ER particles/crystals See Rx Instructions .ROUTE .COMPLEX Qty: 90 0RF Dose Instruction: Take 1 tablet by mouth once daily Rx Instructions: Take 1 tablet by mouth once daily ofloxacin 0.3 % drops 1 drp ophthalmic (eye) QID venlafaxine 150 mg capsule,extended release 24hr 150 mg PO DAILY losartan 100 mg tablet 100 mg PO DAILY lactulose [Constulose] 10 gram/15 mL solution See Rx Instructions .ROUTE .COMPLEX Rx Instructions: TAKE 30 ML BY MOUTH EVERY 2 HOURS FOR 72 HOURS UNTIL STOOL. IF NO STOOL FOR 3 DAYS, REPEAT INSTRUCTIONS Trulicity 3 mg/0.5 mL pen injector 3 mg SUBCUT Q7D Rx Instructions: ON WEDNESDAY levothyroxine 25 mcg tablet 25 mcg PO QAM metoprolol tartrate 25 mg tablet 25 mg PO DAILY amlodipine 5 mg tablet 5 mg PO DAILY Discharge Orders: Discharge ED (Routine); Ordered 11/14/24 Ordered By: Sarah Calvillo Referrals: Tavarez,Kiesha MILL TURNER [Primary Care Provider] - Discharge Diet: Usual diet Patient Instructions: Dehydration (ED), Syncope (ED), Opioid Safety, Pain Management Activity Restrictions/Additional Instructions: Thank you for choosing [facility] for your healthcare needs today. Please realize this is an emergency room and that we are providing you with a medical screening exam and this may not be complete and all inclusive of all the testing and or work up that you may need to determine your ailment or severity of your illness. You have been screened and evaluated and felt safe for discharge. Health conditions do change or evolve sometimes and as such it is important that you follow up with your Primary Doctor to be re checked, 3-5 days is a general good time frame for follow up. You are always welcome to return to the ED for re assessment if your symptoms are worsening or you have new concerns Print Language: Ugandan Coding Level of Care Code ED Airline Managerial Supervisor for Chg Fwd Documented by User: Sarah Calvillo MD 11/14/24 19:24 HPI - Syncope General: Chief Complaint: Syncope Stated Complaint: passed out last night / landed on bed /light head Time Seen by Provider: 11/14/24 14:12 Related Data Home Medications ?Medication ?Instructions ?Recorded ?Confirmed aspirin 81 mg tablet,delayed 81 mg PO DAILY 10/17/19 11/14/24 release cholecalciferol (vitamin D3) 125 125 mcg PO DAILY 08/02/23 11/14/24 mcg (5,000 unit) capsule insulin lispro 100 unit/mL See Rx Instructions SUBCUT TID PRN 08/02/23 11/14/24 subcutaneous pen (Humalog KwikPen blood sugar (U-100) Insulin) loratadine 10 mg tablet (Allergy 10 mg PO DAILY 08/02/23 11/14/24 Relief (loratadine)) magnesium oxide 500 mg capsule 500 mg PO DAILY 08/02/23 11/14/24 dulaglutide 3 mg/0.5 mL 3 mg SUBCUT Q7D 03/22/24 11/14/24 subcutaneous pen injector (Trulicity) levothyroxine 25 mcg tablet 25 mcg PO QAM 03/22/24 11/14/24 metoprolol tartrate 25 mg tablet 25 mg PO DAILY 03/22/24 11/14/24 docusate sodium 100 mg capsule 200 mg PO BID 05/29/24 11/14/24 (Colace) doxepin 25 mg capsule 50 mg PO BEDTIME 05/29/24 11/14/24 latanoprost 0.005 % eye drops 1 drp ophthalmic (eye) BEDTIME 05/29/24 11/14/24 gabapentin 100 mg capsule 100 mg PO DAILY 06/07/24 11/14/24 amlodipine 5 mg tablet 5 mg PO DAILY 07/12/24 11/14/24 Held on 07/17/24. Instructions: Resume on 07/24/24. until you see primary care lactulose 10 gram/15 mL oral See Rx Instructions .Route .COMPLEX 11/14/24 11/14/24 solution (Constulose) losartan 100 mg tablet 100 mg PO DAILY 11/14/24 11/14/24 ofloxacin 0.3 % eye drops 1 drp ophthalmic (eye) QID 11/14/24 11/14/24 venlafaxine 150 mg 150 mg PO DAILY 11/14/24 11/14/24 capsule,extended release 24 hr Previous Rx's ?Medication ?Instructions ?Recorded blood-glucose meter #1 ea 08/19/23 lancets #200 ea 08/19/23 bumetanide 1 mg tablet 1 mg PO DAILY #30 tabs 11/05/23 atorvastatin 10 mg tablet 10 mg PO DAILY 90 days #90 tabs 01/05/24 lancets 33 gauge (OneTouch Delica #100 ea 02/07/24 Plus Lancet) pantoprazole 40 mg tablet,delayed 40 mg PO BID #180 tabs 08/18/24 release blood sugar diagnostic (OneTouch #200 ea 09/12/24 Ultra Test strips) potassium chloride 20 mEq See Rx Instructions .Route 10/30/24 tablet,extended .COMPLEX #90 tabs release(part/cryst) (Klor-Con M) Allergies Allergy/AdvReac Type Severity Reaction Status Date / Time codeine Allergy Unknown ADR-Nausea Verified 10/03/24 10:37 ketorolac (From Toradol) Allergy Unknown Verified 10/03/24 10:37 melatonin Allergy ADR-Nausea Verified 10/03/24 10:37 PFSH ED PFSH: Medical History Small cell lung cancer Nicotine use disorder PTSD (post-traumatic stress disorder) Bipolar disorder current episode depressed Psychiatric care History of attempted suicide Hypothyroidism (acquired) Duodenitis Gastritis Sleep apnea Obesity Bipolar affect, depressed Depression Hypertension Diabetes Oxygen dependent CHF (congestive heart failure) GERD (gastroesophageal reflux disease) COPD (chronic obstructive pulmonary disease) 3L o2 , mild to mod copd responsive to bronchodilator Enrolled in chronic care management Surgical History History of appendectomy H/O colonoscopy with polypectomy H/O esophagogastroduodenoscopy Tubal ligation status S/P cholecystectomy Family History Father Lung cancer Sister Ovarian cancer Mother Diabetes Other CAD (coronary artery disease) Social History Smoking and tobacco/nicotine status: former use of tobacco/nicotine Alcohol intake: former Year of sobriety/quit date alcohol: 1999 Substance/Drug Use: never Adopted: No Caregiver/support person: No Lives independently: No Household members: family Housing: House Current gender identity: Female Course Vital Signs: Vital signs: Vital Signs Temperature 98.0 F 11/14/24 13:48 Pulse Rate 93 11/14/24 20:09 Respiratory Rate 16 11/14/24 20:09 Blood Pressure 117/98 11/14/24 20:09 Pulse Oximetry 95 11/14/24 20:09 Oxygen Delivery Me thod Room Air 11/14/24 19:00 MDM - Syncope Medical Decision Making Care signed out to Dr. Calvillo at change of shift. See final notes for diagnosis and disposition. Patient care transitioned me at shift change awaiting final troponin. Chest x-ray was negative. Lab work is all negative. Urinalysis was negative for infection. Serial troponins were negative. No dysrhythmias on monitoring. Assessment and plan: Syncope Dehydration -1 L normal saline bolus and IV Zofran in the emergency room. ? Discharged home - Discussed plan with patient. Answered any questions. - Evaluation and treatment of this problem were appropriate in the emergency setting. Lab Data 11/14/24 14:40 11/14/24 14:40 Radiology Impressions Chest X-Ray 11/14/24 14:37 IMPRESSION: No acute findings. Laboratory Results WBC 5.87 10^3/uL (3.29-11.43) 11/14/24 14:40 RBC 3.51 10^6/uL (3.85-5.65) L 11/14/24 14:40 Hgb 11.10 g/dL (11.27-16.99) L 11/14/24 14:40 Hct 34.3 % (36-47) L 11/14/24 14:40 MCV 97.7 fl (85-98) 11/14/24 14:40 MCH 31.6 pg (27-33) 11/14/24 14:40 MCHC 32.4 g/dL (30-55) 11/14/24 14:40 RDW 14.6 % (12.1-15.1) 11/14/24 14:40 Plt Count 216 10^3/cmm (157-399) 11/14/24 14:40 MPV 9.2 fL (7.4-10.4) 11/14/24 14:40 Neut % (Auto) 74.7 % 11/14/24 14:40 Lymph % (Auto) 13.6 % 11/14/24 14:40 [place] % (Auto) 9.0 % 11/14/24 14:40 Eos % (Auto) 1.7 % 11/14/24 14:40 Baso % (Auto) 0.5 % 11/14/24 14:40 Neut # (Auto) 4.38 10^3/uL (1.8-7.7) 11/14/24 14:40 Lymph # (Auto) 0.8 10^3/uL (0.8-4.8) 11/14/24 14:40 [place] # (Auto) 0.5 10^3/uL (0.2-0.9) 11/14/24 14:40 Eos # (Auto) 0.1 10^3/uL (0.0-0.8) 11/14/24 14:40 Baso # (Auto) 0.0 10^3/uL (0.0-0.1) 11/14/24 14:40 Nucleated RBC % (auto) 0 % 11/14/24 14:40 Nucleated RBCs # 0.0 /100WBC 11/14/24 14:40 Sodium 136 mmol/L (136-145) 11/14/24 14:40 Potassium 4.0 mmol/L (3.5-5.1) 11/14/24 14:40 Chloride 99 mmol/L (98-107) 11/14/24 14:40 Carbon Dioxide 26 mmol/L (22-29) 11/14/24 14:40 Anion Gap 15.0 (5-19) 11/14/24 14:40 BUN 14 mg/dL (8-23) 11/14/24 14:40 Creatinine 0.6 mg/dL (0.5-0.9) 11/14/24 14:40 GFR Calculation 99.4 mL/min (90-130) 11/14/24 14:40 Glucose 99 mg/dL (65-115) 11/14/24 14:40 Calculated Osmolality 283 mOsm/kg (285-295) L 11/14/24 14:40 Calcium 9.2 mg/dL (8.5-10.5) 11/14/24 14:40 Total Bilirubin 0.2 mg/dL (0.15-1.2) 11/14/24 14:40 AST 11 U/L (0-32) 11/14/24 14:40 ALT 9 U/L (0-33) 11/14/24 14:40 Alkaline Phosphatase 100 U/L (35-105) 11/14/24 14:40 Troponin T Baseline < 6 ng/L (0-10) 11/14/24 14:40 Troponin T 120 Minute 6.00 ng/L (0-10) 11/14/24 17:10 Delta Troponin T 0.09387 ABS# (0-10) 11/14/24 17:10 Total Protein 6.1 g/dL (6.6-8.7) L 11/14/24 14:40 Albumin 4.1 g/dL (3.5-5.2) 11/14/24 14:40 Globulin 2.0 g/dL (1.3-4.6) 11/14/24 14:40 Urine Color Yellow (Yellow) 11/14/24 15:35 Urine Appearance Clear (CLEAR) 11/14/24 15:35 Urine pH 7.0 (5-7) 11/14/24 15:35 Ur Specific [place] 1.009 (1.005-1.030) 11/14/24 15:35 Urine Protein Negative (Negative) 11/14/24 15:35 Urine Glucose (UA) Negative (Normal) 11/14/24 15:35 Urine Ketones Negative (Negative) 11/14/24 15:35 Urine Blood Negative (Negative) 11/14/24 15:35 Urine Nitrate Negative (Negative) 11/14/24 15:35 Urine Bilirubin Negative (Negative) 11/14/24 15:35 Urine Urobilinogen 1.0 mg/dL (Negative) 11/14/24 15:35 Ur Leukocyte Esterase Negative (Negative) 11/14/24 15:35 Urine RBC 0-2 /hpf (0-2) 11/14/24 15:35 Urine WBC 0-5 /hpf (0-5) 11/14/24 15:35 Ur Squamous Epith Cells 0-5 /hpf (0-5) 11/14/24 15:35 Amorphous Sediment Not Reportable 11/14/24 15:35 Urine Bacteria None seen /hpf (NONE) 11/14/24 15:35 Hyaline Casts 0-4 /lpf H 11/14/24 15:35 All radiology interpretation(s) finalized by discharge Discharge Plan Discharge Patient Disposition: Home Clinical Impression: Syncope, Dehydration Condition: Stable Prescriptions: No Action aspirin 81 mg tablet,delayed release (DR/EC) 81 mg PO DAILY atorvastatin 10 mg tablet 10 mg PO DAILY 90 Days Qty: 90 2RF insulin lispro [Humalog KwikPen Insulin] 100 unit/mL insulin pen See Rx Instructions SUBCUT TID PRN (Reason: blood sugar) Rx Instructions: Use per sliding scale subcutaneously three times daily. magnesium oxide 500 mg capsule 500 mg PO DAILY cholecalciferol (vitamin D3) 125 mcg (5,000 unit) capsule 125 mcg PO DAILY loratadine [Allergy Relief (loratadine)] 10 mg tablet 10 mg PO DAILY (DME) lancets Misc See Rx Instructions .MEDSUPPLY Qty: 200 12RF Rx Instructions: Use as directed to prick skin for blood sugar checks docusate sodium [Colace] 100 mg capsule 200 mg PO BID doxepin 25 mg capsule 50 mg PO BEDTIME latanoprost 0.005 % drops 1 drp ophthalmic (eye) BEDTIME gabapentin 100 mg capsule 100 mg PO DAILY (DME) blood-glucose meter Misc See Rx Instructions .MEDSUPPLY Qty: 1 0RF Rx Instructions: Use as directed for checking blood sugar bumetanide 1 mg tablet 1 mg PO DAILY Qty: 30 0RF (DME) lancets [OneTouch Delica Plus Lancet] 33 gauge misc See Rx Instructions .Route Qty: 100 0RF Rx Instructions: As directed pantoprazole 40 mg tablet,delayed release (DR/EC) 40 mg PO BID Qty: 180 0RF Rx Instructions: dose increase (DME) OneTouch Ultra Test Strip See Rx Instructions .ROUTE .COMPLEX Qty: 200 0RF Dose Instruction: USE DIRECTED FOR BLOOD SUGAR Rx Instructions: USE DIRECTED FOR BLOOD SUGAR potassium chloride [Klor-Con M20] 20 mEq tablet,ER particles/crystals See Rx Instructions .ROUTE .COMPLEX Qty: 90 0RF Dose Instruction: Take 1 tablet by mouth once daily Rx Instructions: Take 1 tablet by mouth once daily ofloxacin 0.3 % drops 1 drp ophthalmic (eye) QID venlafaxine 150 mg capsule,extended release 24hr 150 mg PO DAILY losartan 100 mg tablet 100 mg PO DAILY lactulose [Constulose] 10 gram/15 mL solution See Rx Instructions .ROUTE .COMPLEX Rx Instructions: TAKE 30 ML BY MOUTH EVERY 2 HOURS FOR 72 HOURS UNTIL STOOL. IF NO STOOL FOR 3 DAYS, REPEAT INSTRUCTIONS Trulicity 3 mg/0.5 mL pen injector 3 mg SUBCUT Q7D Rx Instructions: ON WEDNESDAY levothyroxine 25 mcg tablet 25 mcg PO QAM metoprolol tartrate 25 mg tablet 25 mg PO DAILY amlodipine 5 mg tablet 5 mg PO DAILY Discharge Orders: Discharge ED (Routine); Ordered 11/14/24 Ordered By: Sarah Calvillo Referrals: Corby,Kiesha, MILL TURNER [Primary Care Provider] - Discharge Diet: Usual diet Patient Instructions: Dehydration (ED), Syncope (ED), Opioid Safety, Pain Management Activity Restrictions/Additional Instructions: Thank you for choosing [facility] for your healthcare needs today. Please realize this is an emergency room and that we are providing you with a medical screening exam and this may not be complete and all inclusive of all the testing and or work up that you may need to determine your ailment or severity of your illness. You have been screened and evaluated and felt safe for discharge. Health conditions do change or evolve sometimes and as such it is important that you follow up with your Primary Doctor to be re checked, 3-5 days is a general good time frame for follow up. You are always welcome to return to the ED for re assessment if your symptoms are worsening or you have new concerns Print Language: Ugandan Coding Level of Care Code ED Airline Managerial Supervisor for Farhat Cooper
--- NOTE | 2024-11-14 14:37 | XRR_ITS ---
PROCEDURE INFORMATION: Exam: XR Chest Exam date and time: 11/14/2024 2:43 PM Age: 69 years old Clinical indication: Cough and dyspnea; Additional info: Dyspnea/cough TECHNIQUE: Imaging protocol: Radiologic exam of the chest. Views: 1 view. COMPARISON: CR XR chest 1V portable [id number] 07/16/2024 9:49 AM FINDINGS: Tubes, catheters and devices: Left chest port terminates in the proximal right atrium. Lungs: Scarring in the right perihilar region. No consolidation. Pleural spaces: Unremarkable. No pleural effusion. No pneumothorax. Heart/Mediastinum: Unremarkable. No cardiomegaly. Bones/joints: Unremarkable. XR/XR chest 1V portable [id number] IMPRESSION: No acute findings.
[2024-11-14 15:00] LABS: Basophils % 0.5 %; Eosinophils # 0.1 10^3/uL (0.0-0.8); Eosinophils % 1.7 %; Hematocrit 34.3 % (36-47); Lymphocytes # 0.8 10^3/uL (0.8-4.8); Lymphocytes % 13.6 %; Mean Corpuscular HGB Conc 32.4 g/dL (30-55); Mean Corpuscular Hemoglobin 31.6 pg (27-33); Mean Corpuscular Volume 97.7 fl (85-98); Mean Platelet Volume 9.2 fL (7.4-10.4); Monocytes # 0.5 10^3/uL (0.2-0.9); Neutrophils # 4.38 10^3/uL (1.8-7.7); Neutrophils % 74.7 %; Nucleated Red Blood Cells % 0 %; Platelet Count 216 10^3/cmm (157-399); Red Blood Count 3.51 10^6/uL (3.85-5.65); Red Cell Distribution Width 14.6 % (12.1-15.1); White Blood Count 5.87 10^3/uL (3.29-11.43)
[2024-11-14 15:14] LABS: Troponin(5th) Baseline < 6 ng/L (0-10)
[2024-11-14 15:16] LABS: Alanine Aminotransferase 9 U/L (0-33); Albumin Level 4.1 g/dL (3.5-5.2); Alkaline Phosphatase 100 U/L (35-105); Aspartate Amino Transferase 11 U/L (0-32); Blood Urea Nitrogen 14 mg/dL (8-23); Calcium 9.2 mg/dL (8.5-10.5); Carbon Dioxide 26 mmol/L (22-29); Chloride 99 mmol/L (98-107); Creatinine Clr Calc Pharmacy 80.6353; Glomerular Filtration Rate 99.4 mL/min (90-130); Glucose 99 mg/dL (65-115); Osmolality Calculated 283 mOsm/kg (285-295); Sodium 136 mmol/L (136-145); Total Bilirubin 0.2 mg/dL (0.15-1.2); Total Protein 6.1 g/dL (6.6-8.7)
[2024-11-14] MEDS: ondansetron 2 mg/ML SDV 2 mL 4 MG IVP (15:22)
--- NOTE | 2024-11-14 16:37 | ECG_ITS ---
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
[2024-11-14 18:03] LABS: Troponin 5 2HR Delta 0.00001 ABS# (0-10)
[2024-11-14] MEDS: sodium chloride 0.9% 1,000 ML 999 ML IV (18:56)
[2024-11-14 19:09] LABS: Bilirubin Urine Negative (Negative); Blood Urine Negative (Negative); Glucose Urine UA Negative (Normal); Ketones Urine Negative (Negative); Leukocyte Esterase Urine Negative (Negative); Nitrate Urine Negative (Negative); Protein Urine Negative (Negative); Specific Gravity, Urine 1.009 (1.005-1.030); Urine Appearance Clear (CLEAR); Urine Color Yellow (Yellow)
[2024-11-14 19:15] LABS: Bacteria Urine None Seen /hpf; Hyaline Casts Urine 0-4 /lpf; RBC Urine 0-2 /hpf (0-2); Squamous Epithelial Cell Urine 0-5 /hpf (0-5); WBC Urine 0-5 /hpf (0-5)
== END 2024-11-14 20:08 | disposition home or self-care (01) ==
PROVIDERS: Emergency Medicine; Family Medicine; Emergency Provider Emergency Medicine; PCP Nurse Practitioner Family
DX: R55 Syncope and collapse (principal); E86.0 Dehydration; Z79.82 Long term (current) use of aspirin; Z79.4 Long term (current) use of insulin; Z79.85 Long-term (current) use of injectable non-insulin antidiabetic drugs; J44.9 Chronic obstructive pulmonary disease, unspecified; E11.9 Type 2 diabetes mellitus without complications; I11.0 Hypertensive heart disease with heart failure; I50.9 Heart failure, unspecified; Z85.118 Personal history of other malignant neoplasm of bronchus and lung
CPT/HCPCS: 36415; 71045; 80053; 81001; 84484; 85025; 93005; 96361; 96374; 99285; J2405; J7030

== ENCOUNTER 2024-12-20 16:19 | Emergency (ER) | payer MEDICARE, MEDICAID, SELFPAY ==
[2024-12-20 16:19] VITALS: BP 112/75; PULSE 125; RESP 24; TEMP 36.4; O2SAT 92
--- NOTE | 2024-12-20 16:25 | XRR_ITS ---
PROCEDURE INFORMATION: Exam: XR Right Hip Exam date and time: 12/20/2024 4:37 PM Age: 69 years old Clinical indication: Injury or trauma; Fall; Blunt trauma (contusions or hematomas); Right; Hip; Additional info: Fall, hip pain TECHNIQUE: Imaging protocol: Radiologic exam of the right hip. Views: 1 view hip with pelvis when performed. COMPARISON: PT PET skull to thigh SUBS [id number] 12/08/2024 9:20 AM FINDINGS: Bones/joints: No fracture or dislocation is seen about the right hip. No fracture or diastasis is seen about the pelvis. No fracture seen about the left hip on the AP pelvis exam. No acute osseous abnormality. Soft tissues: No significant soft tissue abnormality. XR/XR hip RT 2-3V wo/w pel* [id number] IMPRESSION: No fracture identified. Follow-up or further evaluation as clinically indicated.
--- NOTE | 2024-12-20 16:36 | W.ED.EXTPRO ---
HPI - Extremity Problem General: Chief complaint: Extremity Injury, Lower Stated complaint: Fall, RT hip pain Time Seen by Provider: 12/20/24 16:20 History of Present Illness: 69-year-old female with a history of small cell lung cancer, tobacco dependence, PTSD, bipolar disorder, hypothyroidism, sleep apnea, obesity, diabetes, chronic hypoxemic respiratory failure, hypertension, congestive heart failure and COPD who presents to the emergency room with right hip pain. She says she fell 3 days ago but then all of a sudden today her right hip started hurting. She is able to transfer to the bed. She picks herself up when she rolls over with her right leg with no apparent pain. However she says she cannot bear any weight on it. No radiation. She says it is just in her hip. Related Data Home Medications ?Medication ?Instructions ?Recorded ?Confirmed aspirin 81 mg tablet,delayed 81 mg PO DAILY 10/17/19 12/20/24 release insulin lispro 100 unit/mL See Rx Instructions SUBCUT TID PRN 08/02/23 12/20/24 subcutaneous pen (Humalog KwikPen blood sugar (U-100) Insulin) dulaglutide 3 mg/0.5 mL 3 mg SUBCUT Q7D 03/22/24 12/20/24 subcutaneous pen injector (Trulicity) levothyroxine 25 mcg tablet 25 mcg PO QAM 03/22/24 12/20/24 metoprolol tartrate 25 mg tablet 25 mg PO DAILY 03/22/24 12/20/24 doxepin 25 mg capsule 50 mg PO BEDTIME 05/29/24 12/20/24 latanoprost 0.005 % eye drops 1 drp ophthalmic (eye) BEDTIME 05/29/24 12/20/24 gabapentin 100 mg capsule 100 mg PO DAILY 06/07/24 12/20/24 losartan 100 mg tablet 100 mg PO DAILY 11/14/24 12/20/24 venlafaxine 150 mg 150 mg PO DAILY 11/14/24 12/20/24 capsule,extended release 24 hr amlodipine 5 mg tablet 5 mg PO DAILY 12/20/24 12/20/24 arformoterol 15 mcg/2 mL solution 15 mcg inhalation QID 12/20/24 12/20/24 for nebulization potassium chloride 20 mEq 20 meq PO DAILY 12/20/24 12/20/24 tablet,extended release(part/cryst) (Klor-Con M) Previous Rx's ?Medication ?Instructions ?Recorded bumetanide 1 mg tablet 1 mg PO DAILY #30 tabs 11/05/23 atorvastatin 10 mg tablet 10 mg PO DAILY 90 days #90 tabs 01/05/24 pantoprazole 40 mg tablet,delayed 40 mg PO BID #180 tabs 08/18/24 release lorazepam 1 mg tablet 0.5 - 1 mg (0.5 - 1 x 1 mg) PO Q6H 12/13/24 PRN severe nausea #30 tabs ondansetron HCl 4 mg tablet 4 mg PO Q6H PRN nausea and 12/13/24 vomiting #30 tabs prochlorperazine maleate 10 mg 10 mg PO Q4H PRN mild nausea #30 12/13/24 tablet (Compazine) tabs hydrocodone 5 mg-acetaminophen 325 1 tab PO Q6H PRN pain #20 tabs 12/20/24 mg tablet polyethylene glycol 3350 17 17 g PO DAILY #510 grams 12/20/24 gram/dose oral powder (Miralax) Allergies Allergy/AdvReac Type Severity Reaction Status Date / Time codeine Allergy Unknown ADR-Nausea Verified 12/12/24 11:22 adhesive tape Allergy ALGY-Bliste Verified 12/12/24 11:22 r ketorolac (From Toradol) Allergy Unknown Verified 12/12/24 11:22 melatonin Allergy ADR-Nausea Verified 12/12/24 11:22 Review of Systems Narrative: Constitutional symptoms: Negative except as documented in HPI. Skin symptoms: Negative except as documented in HPI. Eye symptoms: Negative except as documented in HPI. ENMT symptoms: Negative except as documented in HPI. Respiratory symptoms: Negative except as documented in HPI. Cardiovascular symptoms: Negative except as documented in HPI. Gastrointestinal symptoms: Negative except as documented in HPI. Genitourinary symptoms: Negative except as documented in HPI. Musculoskeletal symptoms: Negative except as documented in HPI. Neurologic symptoms: Negative except as documented in HPI. Psychiatric symptoms: Negative except as documented in HPI. Endocrine symptoms: Negative except as documented in HPI. PFS ED PFSH: Medical History Small cell lung cancer Nicotine use disorder PTSD (post-traumatic stress disorder) Bipolar disorder current episode depressed Psychiatric care History of attempted suicide Hypothyroidism (acquired) Duodenitis Gastritis Sleep apnea Obesity Bipolar affect, depressed Depression Hypertension Diabetes Oxygen dependent CHF (congestive heart failure) GERD (gastroesophageal reflux disease) COPD (chronic obstructive pulmonary disease) 3L o2 , mild to mod copd responsive to bronchodilator Enrolled in chronic care management Surgical History History of appendectomy H/O colonoscopy with polypectomy H/O esophagogastroduodenoscopy Tubal ligation status S/P cholecystectomy Family History Father Lung cancer Sister Ovarian cancer Mother Diabetes Other CAD (coronary artery disease) Social History Smoking and tobacco/nicotine status: former use of tobacco/nicotine Alcohol intake: former Year of sobriety/quit date alcohol: 1999 Substance/Drug Use: never Adopted: No Caregiver/support person: No Lives independently: No Household members: family Housing: House Current gender identity: Female Physical Exam Narrative: EXAM NARRATIVE: General: Alert, no acute distress. Skin: warm and dry Head: Normocephalic Neck: Trachea midline Eye: Extraocular movements are intact. Ears, nose, mouth and throat: Oral mucosa moist Respiratory: Respirations are non-labored Musculoskeletal: Normal ROM. No shortening. No rotation. No deformities. Neurological: Alert and oriented, No focal neurological deficit observed. Psychiatric: Cooperative, appropriate mood & affect. Course Vital Signs: Vital signs: Vital Signs Temperature 97.6 F 12/20/24 16:19 Pulse Rate 125 H 12/20/24 16:19 Respiratory Rate 24 H 12/20/24 16:19 Blood Pressure 112/75 12/20/24 16:19 Pulse Oximetry 92 12/20/24 16:19 Oxygen Delivery Me thod Room Air 12/20/24 16:19 MDM - Extremity (Nontraumatic) Medical Decision Making X-ray of the right hip and pelvis: No acute fracture. No dislocations. This was reviewed and interpreted by myself the emergency room physician. I also reviewed the radiology report. Assessment and plan: Fall Hip pain ? Raymond in the emergency room. - Discharged home - Discussed plan with patient. Answered any questions. - Evaluation and treatment of this problem were appropriate in the emergency setting. Lab Data Radiology Impressions Hip/Pelvis X-Ray 12/20/24 16:25 IMPRESSION: No fracture identified. Follow-up or further evaluation as clinically indicated. All radiology interpretation(s) finalized by discharge Discharge Plan Discharge Patient Disposition: Home Clinical Impression: Hip pain Condition: Stable Prescriptions: New hydrocodone-acetaminophen 5-325 mg tablet 1 tab PO Q6H PRN (Reason: pain) Qty: 20 0RF polyethylene glycol 3350 [Miralax] 17 gram/dose powder 17 g PO DAILY Qty: 510 0RF Rx Instructions: Take 1 scoop daily while taking pain medications. No Action aspirin 81 mg tablet,delayed release (DR/EC) 81 mg PO DAILY atorvastatin 10 mg tablet 10 mg PO DAILY 90 Days Qty: 90 2RF insulin lispro [Humalog KwikPen Insulin] 100 unit/mL insulin pen See Rx Instructions SUBCUT TID PRN (Reason: blood sugar) Rx Instructions: Use per sliding scale subcutaneously three times daily. doxepin 25 mg capsule 50 mg PO BEDTIME latanoprost 0.005 % drops 1 drp ophthalmic (eye) BEDTIME gabapentin 100 mg capsule 100 mg PO DAILY bumetanide 1 mg tablet 1 mg PO DAILY Qty: 30 0RF pantoprazole 40 mg tablet,delayed release (DR/EC) 40 mg PO BID Qty: 180 0RF Rx Instructions: dose increase prochlorperazine maleate [Compazine] 10 mg tablet 10 mg PO Q4H PRN (Reason: mild nausea) Qty: 30 3RF ondansetron HCl 4 mg tablet 4 mg PO Q6H PRN (Reason: nausea and vomiting) Qty: 30 3RF lorazepam 1 mg tablet 0.5 - 1 mg PO Q6H PRN (Reason: severe nausea) Qty: 30 3RF venlafaxine 150 mg capsule,extended release 24hr 150 mg PO DAILY losartan 100 mg tablet 100 mg PO DAILY amlodipine 5 mg tablet 5 mg PO DAILY arformoterol 15 mcg/2 mL solution for nebulization 15 mcg INHALATION QID potassium chloride [Klor-Con M20] 20 mEq tablet,ER particles/crystals 20 meq PO DAILY Rx Instructions: Take 1 tablet by mouth once daily Trulicity 3 mg/0.5 mL pen injector 3 mg SUBCUT Q7D Rx Instructions: ON WEDNESDAY levothyroxine 25 mcg tablet 25 mcg PO QAM metoprolol tartrate 25 mg tablet 25 mg PO DAILY Discharge Orders: Discharge ED (Routine); Ordered 12/20/24 Ordered By: Sarah Calvillo Referrals: Kiesha Tavarez FNP [Primary Care Provider] - Patient Instructions: Fall Prevention for Older Adults (ED), Opioid Safety, Pain Management Activity Restrictions/Additional Instructions: Thank you for choosing [facility] for your healthcare needs today. Please realize this is an emergency room and that we are providing you with a medical screening exam and this may not be complete and all inclusive of all the testing and or work up that you may need to determine your ailment or severity of your illness. You have been screened and evaluated and felt safe for discharge. Health conditions do change or evolve sometimes and as such it is important that you follow up with your Primary Doctor to be re checked, 3-5 days is a general good time frame for follow up. You are always welcome to return to the ED for re assessment if your symptoms are worsening or you have new concerns Print Language: Sudanese Coding Level of Care Code ED Lean Facilitator for Farhat Cooper
[2024-12-20] MEDS: HYDROcodone-acetaminophen 10-325 mg Tablet 1 TAB PO (16:49)
[2024-12-20 17:43] VITALS: BP 115/89; PULSE 107; O2SAT 93
== END 2024-12-20 17:47 | disposition home or self-care (01) ==
PROVIDERS: Emergency Provider Emergency Medicine; PCP Nurse Practitioner Family
DX: M25.551 Pain in right hip (principal); Z79.82 Long term (current) use of aspirin; Z79.4 Long term (current) use of insulin; Z87.891 Personal history of nicotine dependence; J44.9 Chronic obstructive pulmonary disease, unspecified; Z85.118 Personal history of other malignant neoplasm of bronchus and lung; I11.0 Hypertensive heart disease with heart failure; I50.9 Heart failure, unspecified
CPT/HCPCS: 73502; 99283; J9999

== ENCOUNTER 2024-12-25 08:00 | Oncology outpatient (recurring) (ONCR) | payer MEDICARE, MEDICAID, SELFPAY ==
--- NOTE | 2024-12-08 08:30 | PETR_ITS ---
PROCEDURE INFORMATION: Exam: PET/CT Skull Base to Mid-thigh Exam date and time: 12/08/2024 9:20 AM Age: 69 years old Clinical indication: Restaging of lung cancer. Primary small cell lung cancer in the right upper lobe; Follicular lymphoma. LABS AND CLINICAL REPORTS: Glucose: 96 mg/dl Treatment strategy for malignancy (PET staging): Restaging (PS) TECHNIQUE: Imaging protocol: Following at least four-hour fasting and following the injection of radiopharmaceutical, low dose CT images were obtained. Then, PET images were obtained. Attenuation corrected images were constructed using the CT scan. Fused images of PET and CT were reviewed. The standardized uptake values (SUV) reported below are maximum values within a region of interest, expressed in gm/ml. Exam includes orbital meatal line to mid-thigh. SUV normalization method: BodyWeight Radiopharmaceutical: 11.64 mCi F-18 FDG (Fluorodeoxyglucose), IV. Time of imaging post radiopharmaceutical administration: 64 minutes Injection site: left ac COMPARISON: PT PET skull to thigh INIT 09/08/2024 FINDINGS: Tubes, catheters and devices: Port catheter placed via the left internal jugular vein terminates in the cavoatrial junction. Brain: Normal physiologic uptake. Pharynx: No abnormal uptake. Larynx: No abnormal uptake. Lungs, pleura and trachea: Stable consolidation posteriorly in the right upper lobe with low-grade uptake of 3.3 SUV versus 4 SUV on the previous exam suggestive of sequela of treated lung cancer. No new lung nodules or masses. No pleural effusion. Heart: No abnormal uptake. There is no cardiomegaly. There is no pericardial effusion. Mediastinal space: See below in lymph nodes . Maximal mediastinal blood pool uptake 2.6 SUV. Liver: No abnormal uptake. Maximum uptake is 3.6 SUV. Gallbladder and biliary ducts: No abnormal uptake. Status post cholecystectomy. Pancreas: No abnormal uptake. Spleen: No abnormal uptake. No splenomegaly. Adrenal glands: No abnormal uptake. No nodules. Kidneys and ureters: Normal physiologic uptake. No hydronephrosis. Stomach and bowel: Increased uptake involving long segment of ascending colon with no corresponding CT abnormality is probably benign. Vasculature: No abnormal uptake. No aortic aneurysm. Lymph nodes: New about 4.5 x 3.5 cm posterior mediastinal mass with the increased uptake of 7.1 SUV is suggestive of new metastatic lymphadenopathy. No FDG avid lymphadenopathy in the neck, abdomen, pelvis, and extremities. Skeleton: No abnormal uptake in the visualized axial and appendicular skeleton. Soft tissues: No abnormal uptake in the visualized head, neck, chest, abdomen, pelvis, and extremities. PET/PET skull to thigh SUBS [id number] IMPRESSION: In comparison with the prior exam on 09/08/2024: 1. There is new about 4.5 x 3.5 cm posterior mediastinal mass with increased uptake of 7.1 SUV suggestive of metastatic lymphadenopathy. 2. There is stable post treatment appearance of the right upper lobe opacity with no new or progressive FDG uptake suggestive of local recurrence.
[2024-12-12 11:10] LABS: Basophils % 0.5 %; Eosinophils # 0.1 10^3/uL (0.0-0.8); Eosinophils % 1.2 %; Hematocrit 36.1 % (36-47); Lymphocytes % 15.3 %; Mean Corpuscular HGB Conc 32.1 g/dL (30-55); Mean Corpuscular Hemoglobin 30.4 pg (27-33); Mean Corpuscular Volume 94.8 fl (85-98); Mean Platelet Volume 9.6 fL (7.4-10.4); Monocytes # 0.5 10^3/uL (0.2-0.9); Monocytes % 7.7 %; Neutrophils # 4.89 10^3/uL (1.8-7.7); Nucleated Red Blood Cells % 0 %; Platelet Count 223 10^3/cmm (157-399); Red Blood Count 3.81 10^6/uL (3.85-5.65); Red Cell Distribution Width 14.5 % (12.1-15.1); White Blood Count 6.52 10^3/uL (3.29-11.43)
[2024-12-12 11:26] LABS: Alanine Aminotransferase 10 U/L (0-33); Albumin Level 4.2 g/dL (3.5-5.2); Alkaline Phosphatase 105 U/L (35-105); Anion Gap 16.6 (5-19); Aspartate Amino Transferase 11 U/L (0-32); Blood Urea Nitrogen 10 mg/dL (8-23); Calcium 9.3 mg/dL (8.5-10.5); Carbon Dioxide 25 mmol/L (22-29); Chloride 102 mmol/L (98-107); Globulin 2.8 g/dL (1.3-4.6); Glomerular Filtration Rate 99.4 mL/min (90-130); Glucose 108 mg/dL (65-115); Osmolality Calculated 290 mOsm/kg (285-295); Potassium 3.6 mmol/L (3.5-5.1); Sodium 140 mmol/L (136-145); Total Bilirubin 0.2 mg/dL (0.15-1.2)
--- NOTE | 2024-12-18 13:45 | MR_ITS ---
WS: [id number] MRI HEAD WITH CONTRAST TECHNIQUE: Sagittal T1, T2 axial, T2 axial FLAIR, axial susceptibility weighted imaging, axial diffusion weighted images, and coronal T2 images were obtained. Pre and post-T1 axial and post T1 coronal images. ADC and FSPGR images. CLINICAL INFORMATION: small cell carcinoma COMPARISON: CT 2011 FINDINGS: No evidence of restricted diffusion to suggest acute ischemia. The ventricular system and basilar cisterns are patent. Moderate small vessel changes. Mild parenchymal volume loss. Small vessel changes in the tanya. Mild mucosal thickening in the mastoid tips. Normal vascular flow voids at the skull base. Paranasal sinuses are well aerated. Normal posterior nasopharynx. No hemosiderin on susceptibility weighted images. Normal optic chiasm and pituitary infundibulum. No abnormal gadolinium enhancement. No evidence of enhancing intracranial metastatic disease. Normal dural venous sinuses. MR/MR head wo/w con [id number] IMPRESSION: 1. No evidence of enhancing intracranial metastatic disease. 2. Moderate small vessel changes with mild parenchymal volume loss. 3. No hemosiderin on the susceptibly weighted images. 4. No evidence of intracranial mass or mass effect.
[2024-12-18] MEDS: gadobenate dimeglumine 20 mL vial IV (14:28)
[2024-12-25 08:16] LABS: Basophils % 0.3 %; Eosinophils # 0.1 10^3/uL (0.0-0.8); Eosinophils % 1.7 %; Hematocrit 34.8 % (36-47); Lymphocytes # 0.7 10^3/uL (0.8-4.8); Lymphocytes % 10.9 %; Mean Corpuscular HGB Conc 32.5 g/dL (30-55); Mean Corpuscular Hemoglobin 30.1 pg (27-33); Mean Corpuscular Volume 92.6 fl (85-98); Monocytes # 0.4 10^3/uL (0.2-0.9); Monocytes % 7.4 %; Neutrophils # 4.72 10^3/uL (1.8-7.7); Neutrophils % 79.5 %; Nucleated Red Blood Cells % 0 %; Platelet Count 216 10^3/cmm (157-399); Red Blood Count 3.76 10^6/uL (3.85-5.65); Red Cell Distribution Width 14.3 % (12.1-15.1); White Blood Count 5.94 10^3/uL (3.29-11.43)
[2024-12-25 08:47] LABS: Alanine Aminotransferase 8 U/L (0-33); Albumin Level 4.1 g/dL (3.5-5.2); Alkaline Phosphatase 114 U/L (35-105); Anion Gap 16.6 (5-19); Aspartate Amino Transferase 12 U/L (0-32); Blood Urea Nitrogen 11 mg/dL (8-23); Calcium 9.2 mg/dL (8.5-10.5); Carbon Dioxide 25 mmol/L (22-29); Chloride 100 mmol/L (98-107); Creatinine Clr Calc Pharmacy 80.0568; Globulin 2.8 g/dL (1.3-4.6); Glomerular Filtration Rate 99.4 mL/min (90-130); Glucose 118 mg/dL (65-115); Osmolality Calculated 286 mOsm/kg (285-295); Potassium 3.6 mmol/L (3.5-5.1); Sodium 138 mmol/L (136-145); Total Bilirubin 0.2 mg/dL (0.15-1.2); Total Protein 6.9 g/dL (6.6-8.7)
[2024-12-25] MEDS: sodium chloride 0.9% 250 ML 75 ML IV (11:17)
[2024-12-25] MEDS: dexamethasone 4 mg/mL INJ 5 mL 12 MG IVP (11:18)
[2024-12-25] MEDS: palonosetron 0.25 mg/5 mL SDV IVP (11:23)
[2024-12-25] MEDS: LURBINECTEDIN IV (12:09)
[2024-12-25] MEDS: SODIUM CHLORIDE 0.9% IV (12:09)
[2024-12-25] MEDS: pegfilgrastim 6 mg/0.6 mL Kit (onpro) SUBCUT (13:35)
== END 2024-12-25 23:59 | disposition home or self-care (01) ==
PROVIDERS: Nurse Practitioner; Absent Provider Nurse Practitioner Family; PCP Nurse Practitioner Family; Visit Provider Internal Medicine Medical Oncology
DX: Z53.9 Procedure and treatment not carried out, unspecified reason; Z51.11 Encounter for antineoplastic chemotherapy; C34.11 Malignant neoplasm of upper lobe, right bronchus or lung; F17.200 Nicotine dependence, unspecified, uncomplicated; Z79.52 Long term (current) use of systemic steroids; Z91.81 History of falling
CPT/HCPCS: 36591; 70553; 78815; 80053; 85025; 96372; 96375; 96377; 96413; 99215; A9552; J1100; J2469; J2506; J7050; J9223

== ENCOUNTER 2025-01-01 07:35 | Oncology outpatient (recurring) (ONCR) | payer MEDICARE, MEDICAID, SELFPAY ==
[2025-01-01 08:07] LABS: Basophils % 0.2 %; Eosinophils # 0.1 10^3/uL (0.0-0.8); Eosinophils % 1.2 %; Hematocrit 34.8 % (36-47); Lymphocytes # 0.8 10^3/uL (0.8-4.8); Lymphocytes % 9.2 %; Mean Corpuscular HGB Conc 32.2 g/dL (30-55); Mean Corpuscular Hemoglobin 30.9 pg (27-33); Mean Corpuscular Volume 96.1 fl (85-98); Mean Platelet Volume 9.5 fL (7.4-10.4); Monocytes # 0.7 10^3/uL (0.2-0.9); Monocytes % 7.3 %; Neutrophils # 7.27 10^3/uL (1.8-7.7); Neutrophils % 80.2 %; Nucleated Red Blood Cells % 0 %; Platelet Count 178 10^3/cmm (157-399); Red Blood Count 3.62 10^6/uL (3.85-5.65); Red Cell Distribution Width 14.9 % (12.1-15.1); White Blood Count 9.06 10^3/uL (3.29-11.43)
[2025-01-01 08:26] LABS: Alanine Aminotransferase 14 U/L (0-33); Albumin Level 3.9 g/dL (3.5-5.2); Alkaline Phosphatase 150 U/L (35-105); Anion Gap 17.9 (5-19); Aspartate Amino Transferase 13 U/L (0-32); Blood Urea Nitrogen 10 mg/dL (8-23); Carbon Dioxide 23 mmol/L (22-29); Chloride 101 mmol/L (98-107); Creatinine Clr Calc Pharmacy 80.2498; Globulin 2.7 g/dL (1.3-4.6); Glomerular Filtration Rate 99.4 mL/min (90-130); Glucose 137 mg/dL (65-115); Osmolality Calculated 287 mOsm/kg (285-295); Potassium 3.9 mmol/L (3.5-5.1); Sodium 138 mmol/L (136-145); Total Bilirubin 0.2 mg/dL (0.15-1.2); Total Protein 6.6 g/dL (6.6-8.7)
== END 2025-01-03 23:59 | disposition home or self-care (01) ==
PROVIDERS: Nurse Practitioner Family; Absent Provider Nurse Practitioner Family; PCP Nurse Practitioner Family; Visit Provider Internal Medicine Medical Oncology
DX: C34.11 Malignant neoplasm of upper lobe, right bronchus or lung (principal); Z87.891 Personal history of nicotine dependence; R45.851 Suicidal ideations; Z79.899 Other long term (current) drug therapy
CPT/HCPCS: 36591; 80053; 85025; 99214

== ENCOUNTER 2025-01-15 07:31 | Oncology outpatient (recurring) (ONCR) | payer MEDICARE, MEDICAID, SELFPAY ==
[2025-01-15 07:49] LABS: Basophils % 0.6 %; Eosinophils # 0.1 10^3/uL (0.0-0.8); Eosinophils % 1.6 %; Hematocrit 35.8 % (36-47); Lymphocytes # 0.7 10^3/uL (0.8-4.8); Lymphocytes % 11.5 %; Mean Corpuscular HGB Conc 31.8 g/dL (30-55); Mean Corpuscular Hemoglobin 29.8 pg (27-33); Mean Corpuscular Volume 93.7 fl (85-98); Mean Platelet Volume 9.3 fL (7.4-10.4); Monocytes # 0.7 10^3/uL (0.2-0.9); Monocytes % 11.5 %; Neutrophils # 4.72 10^3/uL (1.8-7.7); Neutrophils % 74.5 %; Nucleated Red Blood Cells % 0 %; Platelet Count 231 10^3/cmm (157-399); Red Blood Count 3.82 10^6/uL (3.85-5.65); Red Cell Distribution Width 15.6 % (12.1-15.1); White Blood Count 6.34 10^3/uL (3.29-11.43)
[2025-01-15 08:39] LABS: Alanine Aminotransferase 13 U/L (0-33); Albumin Level 3.9 g/dL (3.5-5.2); Alkaline Phosphatase 140 U/L (35-105); Anion Gap 16.8 (5-19); Aspartate Amino Transferase 13 U/L (0-32); Blood Urea Nitrogen 12 mg/dL (8-23); Calcium 9.2 mg/dL (8.5-10.5); Carbon Dioxide 24 mmol/L (22-29); Chloride 103 mmol/L (98-107); Creatine Phosphokinase 28 U/L (26-192); Creatinine Clr Calc Pharmacy 79.8643; Globulin 2.8 g/dL (1.3-4.6); Glomerular Filtration Rate 83.2 mL/min (90-130); Glucose 119 mg/dL (65-115); Osmolality Calculated 291 mOsm/kg (285-295); Potassium 3.8 mmol/L (3.5-5.1); Sodium 140 mmol/L (136-145); Total Bilirubin 0.3 mg/dL (0.15-1.2); Total Protein 6.7 g/dL (6.6-8.7)
--- NOTE | 2025-01-15 10:26 | PC.NURSE ---
Patient said she passed out twice at home and was checked out in ER both times. MD ferrer
[2025-01-15] MEDS: sodium chloride 0.9% 250 ML 75 ML IV (10:43)
[2025-01-15] MEDS: palonosetron 0.25 mg/5 mL SDV IVP (10:44)
[2025-01-15] MEDS: dexamethasone 4 mg/mL INJ 5 mL 12 MG IVP (10:44)
[2025-01-15] MEDS: SODIUM CHLORIDE 0.9% IV (11:08)
[2025-01-15] MEDS: LURBINECTEDIN IV (11:08)
== END 2025-01-15 23:59 | disposition home or self-care (01) ==
PROVIDERS: Nurse Practitioner Family; Absent Provider Nurse Practitioner Family; PCP Nurse Practitioner Family; Visit Provider Internal Medicine Medical Oncology
DX: Z51.11 Encounter for antineoplastic chemotherapy (principal); C34.11 Malignant neoplasm of upper lobe, right bronchus or lung; Z87.891 Personal history of nicotine dependence; R45.851 Suicidal ideations; Z92.3 Personal history of irradiation; R55 Syncope and collapse; Z79.899 Other long term (current) drug therapy; Z79.52 Long term (current) use of systemic steroids
CPT/HCPCS: 80053; 82550; 85025; 96375; 96413; 99214; J1100; J2469; J7050; J9223

== ENCOUNTER 2025-02-04 19:20 | Inpatient (IN) | payer MEDICARE, MEDICAID, SELFPAY ==
[2025-02-04] VITALS (7 sets, daily range): BP systolic 112–147; BP diastolic 78–89; PULSE 103–110; RESP 16–22; O2SAT 91–95
--- NOTE | 2025-02-04 19:58 | XRR_ITS ---
PROCEDURE INFORMATION: Exam: XR Chest Exam date and time: 02/04/2025 8:39 PM Age: 69 years old Clinical indication: Shortness of breath; Prior surgery; Surgery date: 6+ months; Surgery type: Port; SOB with hypoxia. Currently on chemotherapy for small cell lung cancer. TECHNIQUE: Imaging protocol: Radiologic exam of the chest. Views: 1 view. COMPARISON: CR XR chest 1V portable [id number] 11/14/2024 2:43 PM FINDINGS: Tubes, catheters and devices: Left-sided chest port catheter terminus projects over the expected area of the cavoatrial junction. Lungs: No large focal consolidation. Pleural spaces: No large pleural effusion. No distinct pneumothorax. Heart/Mediastinum: Cardiomediastinal silhouette is midline and stable in size. Bones/joints: Osseous structures are unchanged. XR/XR chest 1V portable [id number] IMPRESSION: No acute cardiopulmonary findings.
[2025-02-04 20:33] LABS: Basophils % 0.5 %; Eosinophils # 0.1 10^3/uL (0.0-0.8); Hematocrit 34.7 % (36-47); Lymphocytes # 0.9 10^3/uL (0.8-4.8); Lymphocytes % 12.1 %; Mean Corpuscular Hemoglobin 29.1 pg (27-33); Mean Corpuscular Volume 90.8 fl (85-98); Mean Platelet Volume 9.5 fL (7.4-10.4); Monocytes # 0.8 10^3/uL (0.2-0.9); Monocytes % 10.5 %; Neutrophils # 5.84 10^3/uL (1.8-7.7); Neutrophils % 75.4 %; Nucleated Red Blood Cells % 0 %; Platelet Count 253 10^3/cmm (157-399); Red Blood Count 3.82 10^6/uL (3.85-5.65); Red Cell Distribution Width 16.1 % (12.1-15.1); White Blood Count 7.75 10^3/uL (3.29-11.43)
--- NOTE | 2025-02-04 20:35 | ECG_ITS ---
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
[2025-02-04 20:45] LABS: Alanine Aminotransferase 10 U/L (0-33); Albumin Level 3.9 g/dL (3.5-5.2); Anion Gap 16.6 (5-19); Aspartate Amino Transferase 10 U/L (0-32); Blood Urea Nitrogen 14 mg/dL (8-23); Calcium 9.3 mg/dL (8.5-10.5); Carbon Dioxide 23 mmol/L (22-29); Chloride 100 mmol/L (98-107); Creatinine Clr Calc Pharmacy 80.0568; Globulin 2.8 g/dL (1.3-4.6); Glucose 93 mg/dL (65-115); Potassium 3.6 mmol/L (3.5-5.1); Sodium 136 mmol/L (136-145); Total Bilirubin 0.2 mg/dL (0.15-1.2); Total Protein 6.7 g/dL (6.6-8.7)
[2025-02-04 21:03] LABS: Alkaline Phosphatase 117 U/L (35-105); Glomerular Filtration Rate 83.2 mL/min (90-130); Osmolality Calculated 282 mOsm/kg (285-295)
--- NOTE | 2025-02-04 21:26 | CTR_ITS ---
PROCEDURE INFORMATION: Exam: CTA Chest With Contrast Exam date and time: 02/04/2025 9:47 PM Age: 69 years old Clinical indication: Shortness of breath; Prior surgery; Surgery date: 6+ months; Surgery type: Port; C/O SOB with hypoxia. Currently on chemotherapy for small cell lung cancer. ; Additional info: Chest pain TECHNIQUE: Imaging protocol: Computed tomographic angiography of the chest with contrast. Exam focused on the arteries. 3D rendering (Not supervised by radiologist): MIP and/or 3D reconstructed images were created by the technologist. Radiation optimization: All CT scans at this facility use at least one of these dose optimization techniques: automated exposure control; mA and/or kV adjustment per patient size (includes targeted exams where dose is matched to clinical indication); or iterative reconstruction. Contrast material: OMNI 350; Contrast volume: 57 ml; Contrast route: INTRAVENOUS (IV); COMPARISON: CT angio chest PE protcl [id number] 07/12/2024 2:30 PM RADIATION DOSE METRICS: Total DLP (mGy-cm): 516.14 FINDINGS: Tubes, catheters and devices: Left-sided chest port catheter terminates in the cavoatrial junction. Pulmonary arteries: No evidence of pulmonary artery emboli. Aorta: Mild scattered calcific atheromatous disease of the thoracic aorta. Lungs: Persistent consolidative scarring involving the posterior left upper lung. No new focal consolidation to suggest overlying pneumonia. Pleural spaces: No pleural effusion. No pneumothorax. Heart: Heart is normal in size. No pericardial effusion. Esophagus: Redemonstrated posterior mediastinal mass, appearing to arise from the esophagus, significantly decreased in size compared to PET-CT 12/08/2024, now measuring up to 3.1 cm. Lymph nodes: No distinct pathologically enlarged lymphadenopathy. Bones/joints: No acute osseous findings. Soft tissues: Visualized superficial soft tissues are within normal limits. CT/CT angio chest PE protcl [id number] IMPRESSION: 1. No evidence of pulmonary artery emboli. 2. Persistent consolidative scarring involving the posterior left upper lung. 3. Redemonstrated posterior mediastinal mass, appearing to arise from the esophagus, significantly decreased in size compared to PET-CT 12/08/2024, now measuring up to 3.1 cm.
[2025-02-04] MEDS: ondansetron 2 mg/ML SDV 2 mL 4 MG IVP (21:41)
[2025-02-04] MEDS: morphine 4 mg/mL SDV 1 mL IVP ×2 (21:41→23:36)
[2025-02-04 21:42] LABS: Influenza A NEGATIVE (Negative); Influenza B NEGATIVE (Negative); Respiratory Syncytial Virus Ce NEGATIVE (Negative); SARS-CoV-2 PCR NEGATIVE (Negative)
--- NOTE | 2025-02-04 21:55 | W.ED.SOB ---
HPI - SOB/Dyspnea General: Chief Complaint: Shortness of Breath/Dyspnea Stated Complaint: SOB Time Seen by Provider: 02/04/25 20:48 History of Present Illness: HPI Narrative: 69-year-old female with a history of COPD and lung cancer. She is due for her next chemotherapy treatment tomorrow. She presents with right lower chest and upper abdominal pain with increased shortness of breath this evening. She states that it happened at rest. Pain is a bit worse with deep breathing. She has a chronic cough. No sputum production or fever. No leg swelling. Related Data Home Medications ?Medication ?Instructions ?Recorded ?Confirmed aspirin 81 mg tablet,delayed 81 mg PO DAILY 10/17/19 02/05/25 release insulin lispro 100 unit/mL See Rx Instructions SUBCUT TID PRN 08/02/23 02/05/25 subcutaneous pen (Humalog KwikPen blood sugar (U-100) Insulin) dulaglutide 3 mg/0.5 mL 3 mg SUBCUT Q7D 03/22/24 02/05/25 subcutaneous pen injector (Trulicity) levothyroxine 25 mcg tablet 25 mcg PO QAM 03/22/24 02/05/25 metoprolol tartrate 25 mg tablet 25 mg PO DAILY 03/22/24 02/05/25 doxepin 25 mg capsule 50 mg PO BEDTIME 05/29/24 02/05/25 latanoprost 0.005 % eye drops 1 drp ophthalmic (eye) BEDTIME 05/29/24 02/05/25 gabapentin 100 mg capsule 100 mg PO DAILY 06/07/24 02/05/25 losartan 100 mg tablet 100 mg PO DAILY 11/14/24 02/05/25 venlafaxine 150 mg 150 mg PO DAILY 11/14/24 02/05/25 capsule,extended release 24 hr magnesium hydroxide 400 mg/5 mL 30 ml PO Q2H PRN Constipation 02/05/25 02/05/25 oral suspension (Dulcolax (magnesium hydroxide)) Previous Rx's ?Medication ?Instructions ?Recorded atorvastatin 10 mg tablet 10 mg PO DAILY 90 days #90 tabs 01/05/24 pantoprazole 40 mg tablet,delayed 40 mg PO BID #180 tabs 08/18/24 release lorazepam 1 mg tablet 0.5 - 1 mg (0.5 - 1 x 1 mg) PO Q6H 12/13/24 PRN severe nausea #30 tabs ondansetron HCl 4 mg tablet 4 mg PO Q6H PRN nausea and 12/13/24 vomiting #30 tabs prochlorperazine maleate 10 mg 10 mg PO Q4H PRN mild nausea #30 12/13/24 tablet (Compazine) tabs Allergies Allergy/AdvReac Type Severity Reaction Status Date / Time codeine Allergy Unknown ADR-Nausea Verified 02/04/25 19:41 adhesive tape Allergy ALGY-Bliste Verified 02/04/25 19:41 r ketorolac (From Toradol) Allergy Unknown Verified 02/04/25 19:41 melatonin Allergy ADR-Nausea Verified 02/04/25 19:41 PFSH ED PFSH: Medical History (Updated 02/05/25 @ 05:26 by Hasmukh Dior DO) Chronic hypoxemic respiratory failure Small cell lung cancer Nicotine use disorder PTSD (post-traumatic stress disorder) Bipolar disorder current episode depressed Psychiatric care History of attempted suicide Hypothyroidism (acquired) Duodenitis Gastritis Sleep apnea Obesity Bipolar affect, depressed Depression Hypertension Diabetes Oxygen dependent CHF (congestive heart failure) GERD (gastroesophageal reflux disease) COPD (chronic obstructive pulmonary disease) 3L o2 , mild to mod copd responsive to bronchodilator Enrolled in chronic care management Surgical History History of appendectomy H/O colonoscopy with polypectomy H/O esophagogastroduodenoscopy Tubal ligation status S/P cholecystectomy Family History Father Lung cancer Sister Ovarian cancer Mother Diabetes Other CAD (coronary artery disease) Social History (Updated 02/05/25 @ 02:33 by Fredi Curry MD) Smoking and tobacco/nicotine status: current every day tobacco/nicotine user cigarettes Packs smoked per day: 1 Years cigarettes smoked: 37 [ Other cigarette details: She had quit smoking for 8 months, but then started again.] Alcohol intake: former Year of sobriety/quit date alcohol: 1999 Substance/Drug Use: never Additional social history: She lives alone and states she drives herself to her chemo. She wants full CODE STATUS as discussed today with Fredi Curry MD on 02/05/2025 Adopted: No Caregiver/support person: No Lives independently: No Household members: family Housing: House Current gender identity: Female Physical Exam Const: GENERAL APPEARANCE: cooperative and ill appearing (Mildly); not frail appearing HENMT: COMMON NORMALS: normocephalic, atraumatic and Normal external nose present HEAD & SCALP: normocephalic and atraumatic FACE & SINUS: normal facial exam and face symmetric NOSE: Normal external nose present Eye: COMMON NORMALS: Equal, round and reactive pupils present and EOMs intact bilaterally PUPIL: Yes Equal, round and reactive pupils present Neck/C-Spine: GENERAL: Yes trachea midline Chest: CHEST: Yes Symmetrical chest wall rise Resp: EFFORT & INSPECTION: Yes tachypneic and No respiratory distress AUSCULTATION: wheezes throughout Cardio: COMMON NORMALS: regular rate and regular rhythm RATE: regular rate RHYTHM: regular rhythm GI: COMMON NORMALS: Normal to inspection, nondistended, normoactive bowel sounds present Extremity: COMMON NORMALS: no pedal edema Neuro: ANAMARIA COMA SCALE: document GCS findings Anamaria coma scale eye opening: Spontaneous [place] coma scale verbal response: Orientated Anamaria coma scale motor response: [place] commands Anamaria coma scale total score: 15 SENSORY EXAM: Yes extremities (intact) Psych: COMMON NORMALS: speech normal SPEECH: Yes normal speech Skin: COMMON NORMALS: no rashes or lesions noted GENERAL SKIN EXAM: no rashes or lesions noted Course Vital Signs: Vital signs: Vital Signs Temperature 98.2 F 02/05/25 03:50 Pulse Rate 103 H 02/05/25 03:50 Respiratory Rate 18 02/05/25 03:50 Blood Pressure 134/99 02/05/25 03:50 Pulse Oximetry 90 02/05/25 03:50 Oxygen Delivery Me thod Nasal Cannula 02/05/25 03:50 Oxygen Flow Rate 3 02/05/25 03:50 MDM - SOB/Dyspnea Medical Decision Making Patient is given a DuoNeb treatment. Morphine and Zofran for pain. Hemoglobin is 11, white blood cell count is 7.75. BMP is normal. Swabs for influenza COVID and flu were negative. Chest x-ray is nonacute. She is mildly tachycardic. She is somewhat hypoxic on room air, but wears 3 L most of the time she says. She is placed on 3 L here. CTA of the chest is pending. CTA of the chest is negative for PE, consolidative pneumonia, dissection, other causes. She is still short of breath. She still having right-sided pleuritic type pain. This is despite breathing treatment and steroids. She does not feel safe going home. She will be observed for COPD exacerbation chest discomfort. Lab Data 02/04/25 20:16 02/05/25 03:04 Labs/Radiology: Radiology Impressions Chest X-Ray 02/04/25 19:58 IMPRESSION: No acute cardiopulmonary findings. Chest CTA 02/04/25 21:26 IMPRESSION: 1. No evidence of pulmonary artery emboli. 2. Persistent consolidative scarring involving the posterior left upper lung. 3. Redemonstrated posterior mediastinal mass, appearing to arise from the esophagus, significantly decreased in size compared to PET-CT 12/08/2024, now measuring up to 3.1 cm. Laboratory Results WBC 7.75 10^3/uL (3.29-11.43) 02/04/25 20:16 RBC 3.82 10^6/uL (3.85-5.65) L 02/04/25 20:16 Hgb 11.10 g/dL (11.27-16.99) L 02/04/25 20:16 Hct 34.7 % (36-47) L 02/04/25 20:16 MCV 90.8 fl (85-98) 02/04/25 20:16 MCH 29.1 pg (27-33) 02/04/25 20:16 MCHC 32.0 g/dL (30-55) 02/04/25 20:16 RDW 16.1 % (12.1-15.1) H 02/04/25 20:16 Plt Count 253 10^3/cmm (157-399) 02/04/25 20:16 MPV 9.5 fL (7.4-10.4) 02/04/25 20:16 Neut % (Auto) 75.4 % 02/04/25 20:16 Lymph % (Auto) 12.1 % 02/04/25 20:16 Sargent % (Auto) 10.5 % 02/04/25 20:16 Eos % (Auto) 1.0 % 02/04/25 20:16 Baso % (Auto) 0.5 % 02/04/25 20:16 Neut # (Auto) 5.84 10^3/uL (1.8-7.7) 02/04/25 20:16 Lymph # (Auto) 0.9 10^3/uL (0.8-4.8) 02/04/25 20:16 Sargent # (Auto) 0.8 10^3/uL (0.2-0.9) 02/04/25 20:16 Eos # (Auto) 0.1 10^3/uL (0.0-0.8) 02/04/25 20:16 Baso # (Auto) 0.0 10^3/uL (0.0-0.1) 02/04/25 20:16 Nucleated RBC % (auto) 0 % 02/04/25 20:16 Nucleated RBCs # 0.0 /100WBC 02/04/25 20:16 Sodium 136 mmol/L (136-145) 02/04/25 20:16 Potassium 3.6 mmol/L (3.5-5.1) 02/04/25 20:16 Chloride 100 mmol/L (98-107) 02/04/25 20:16 Carbon Dioxide 23 mmol/L (22-29) 02/04/25 20:16 Anion Gap 16.6 (5-19) 02/04/25 20:16 BUN 14 mg/dL (8-23) 02/04/25 20:16 Creatinine 0.7 mg/dL (0.5-0.9) 02/04/25 20:16 GFR Calculation 83.2 mL/min (90-130) L 02/04/25 20:16 Glucose 93 mg/dL (65-115) 02/04/25 20:16 Calculated Osmolality 282 mOsm/kg (285-295) L 02/04/25 20:16 Calcium 9.3 mg/dL (8.5-10.5) 02/04/25 20:16 Total Bilirubin 0.2 mg/dL (0.15-1.2) 02/04/25 20:16 AST 10 U/L (0-32) 02/04/25 20:16 ALT 10 U/L (0-33) 02/04/25 20:16 Alkaline Phosphatase 117 U/L (35-105) H 02/04/25 20:16 Troponin T Baseline 8 ng/L (0-10) 02/04/25 20:16 Troponin T 120 Minute 7.37 ng/L (0-10) 02/04/25 20:25 Delta Troponin T -0.63 ABS# (0-10) L 02/04/25 20:25 Total Protein 6.7 g/dL (6.6-8.7) 02/04/25 20:16 Albumin 3.9 g/dL (3.5-5.2) 02/04/25 20:16 Globulin 2.8 g/dL (1.3-4.6) 02/04/25 20:16 Influenza A (PCR) Negative (Negative) 02/04/25 20:46 Influenza Type B (PCR) Negative (Negative) 02/04/25 20:46 RSV (PCR) Negative (Negative) 02/04/25 20:46 SARS-CoV-2 (PCR) Negative (Negative) 02/04/25 20:46 All radiology interpretation(s) finalized by discharge Discharge Plan Discharge Patient Disposition: Placed in Observation Admit Provider: Fredi Crury Clinical Impression: COPD (chronic obstructive pulmonary disease), Chronic hypoxemic respiratory failure Coding Level of Care Code ED Clinical Administrator for Farhat Cooper
[2025-02-04] MEDS: iohexol 350 mg/mL 500 mL Btl (per mL) IV (21:56)
--- NOTE | 2025-02-04 22:11 | ECG_ITS ---
[facility] Test Date: 2025-02-04 Pat Name: Marli Eli Department: Room: Gender: Female School Cook: : 1955 Requested By: Hasmukh Lara Order Number: [id number] Reading MD: NNAMDI ADAMS Measurements Intervals [place] Rate: 104 P: 119 NC: 160 QRS: 115 QRSD: 142 T: 164 QT: 370 QTc: 487 Interpretive Statements SINUS TACHYCARDIA WITH OCCASIONAL SUPRAVENTRICULAR PREMATURE COMPLEXES ARM LEADS REVERSED [INVERTED P AND QRS IN I] ABNORMAL RHYTHM ECG Compared to ECG 02/04/2025 20:35:09 Right bundle-branch block no longer present Electronically Signed On 02-07-2025 23:02:34 CDT by NNAMDI ADAMS [email or web address] [id number]
[2025-02-04 22:14] LABS: Troponin(5th) Baseline 8 ng/L (0-10)
[2025-02-04] MEDS: ipratropium-albuterol 3 mL Neb INHALATION (22:23)
[2025-02-04 22:54] LABS: Troponin 5 2HR 7.37 ng/L (0-10)
[2025-02-04] MEDS: methylPREDNISolone sod succ 125 mg/2 mL INJ 80 MG IVP (23:10)
[2025-02-04 23:14] LABS: Troponin 5 2HR Delta -0.63 ABS# (0-10)
[2025-02-05] VITALS (13 sets, daily range): BP systolic 127–136; BP diastolic 75–99; PULSE 58–110; RESP 14–20; TEMP 36.4–36.9; O2SAT 90–97; BMI 43.6
[2025-02-05] MEDS: efferdent effervescent 1 EACH DENTAL (01:48)
[2025-02-05] MEDS: potassium chloride ER 20 mEq Tablet 40 MEQ PO (01:48)
--- NOTE | 2025-02-05 02:22 | PM.HP ---
Providers/Chief Complaint Admitting Physician: Fredi Curry MD Primary Care Provider: MAUREEN Hernandez Chief Complaint: SOB History of Present Illness Marli Eli is a 69 year old female with history of small cell lung cancer treated by Dr. Cardoso currently. She had history of past treatment with chemoradiation but had evidence of progression. Patient had in July 2023 3.4 cm mass in the right upper lung. Bronchoscopy 07/21/2023 confirmed small cell carcinoma. Patient presented today with right lower chest and right upper quadrant abdominal pain worse with deep breaths. She has received 3 shots that has finally taken the pain away and states that it only hurts now when she takes a deep breath but much less than on presentation she has chronic cough but continues to smoke 1 pack/day. She states she did quit smoking for 8 months following her July 2023 diagnosis but then felt suicidal so decided to go back to smoking. Patient declines a nicotine patch here states that she quit cold turkey last time and would do so again. Patient has been on Trelegy machine for 7 years with 3 L/min oxygen bleed in. She states she uses about 8 hours a day and her respiratory therapist is going to replace her machine because the current one is getting old. Patient states she called and canceled her chemotherapy for tomorrow as well as her ride. She states her brother is going to [place] and could order picker her Trelegy machine and bring it in tomorrow if she stay she does not know the settings Review of Systems Narrative: General she will lost 7 pounds but has gained some of that back she denies fevers chills Cardiovascular she has had chest pain with deep breaths but denies palpitations or leg edema Respiratory she is chronically on 3 L/min cough is clear phlegm GI no nausea vomiting diarrhea she has chronic constipation and if she does not have bowel movement in 3 days then she takes liquid Ex-Lax until she does no dysuria hematuria 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 or discharge no yeast Neuro positive for stroke 3 years ago but fully recovered Hematologic negative for history of clots in the legs or lungs Medications/Allergies Home Medications ?Medication ?Instructions ?Recorded ?Confirmed ?Last Taken ?Type aspirin 81 mg tablet,delayed 81 mg PO DAILY 10/17/19 02/05/25 02/04/25 08:00 History release insulin lispro 100 unit/mL See Rx Instructions SUBCUT TID PRN 08/02/23 02/05/25 02/04/25 08:00 History subcutaneous pen (Humalog KwikPen blood sugar (U-100) Insulin) atorvastatin 10 mg tablet 10 mg PO DAILY 90 days #90 tabs 01/05/24 02/05/25 02/04/25 08:00 Rx dulaglutide 3 mg/0.5 mL 3 mg SUBCUT Q7D 03/22/24 02/05/25 02/04/25 08:00 History subcutaneous pen injector (Trulicity) levothyroxine 25 mcg tablet 25 mcg PO QAM 03/22/24 02/05/25 02/04/25 08:00 History metoprolol tartrate 25 mg tablet 25 mg PO DAILY 03/22/24 02/05/25 02/04/25 08:00 History doxepin 25 mg capsule 50 mg PO BEDTIME 05/29/24 02/05/25 02/03/25 20:00 History latanoprost 0.005 % eye drops 1 drp ophthalmic (eye) BEDTIME 05/29/24 02/05/25 02/03/25 20:00 History gabapentin 100 mg capsule 100 mg PO DAILY 06/07/24 02/05/25 02/04/25 08:00 History pantoprazole 40 mg tablet,delayed 40 mg PO BID #180 tabs 08/18/24 02/05/25 02/04/25 08:00 Rx release losartan 100 mg tablet 100 mg PO DAILY 11/14/24 02/05/25 02/04/25 08:00 History venlafaxine 150 mg 150 mg PO DAILY 11/14/24 02/05/25 02/04/25 08:00 History capsule,extended release 24 hr lorazepam 1 mg tablet 0.5 - 1 mg (0.5 - 1 x 1 mg) PO Q6H 12/13/24 02/05/25 Unknown Rx PRN severe nausea #30 tabs ondansetron HCl 4 mg tablet 4 mg PO Q6H PRN nausea and 12/13/24 02/05/25 Unknown Rx vomiting #30 tabs prochlorperazine maleate 10 mg 10 mg PO Q4H PRN mild nausea #30 12/13/24 02/05/25 Unknown Rx tablet (Compazine) tabs magnesium hydroxide 400 mg/5 mL 30 ml PO Q2H PRN Constipation 02/05/25 02/05/25 Unknown History oral suspension (Dulcolax (magnesium hydroxide)) Allergies Allergy/AdvReac Type Severity Reaction Status Date / Time codeine Allergy Unknown ADR-Nausea Verified 02/04/25 19:41 adhesive tape Allergy ALGY-Bliste Verified 02/04/25 19:41 r ketorolac (From Toradol) Allergy Unknown Verified 02/04/25 19:41 melatonin Allergy ADR-Nausea Verified 02/04/25 19:41 PFSH Acute PFSH: Medical History (Updated 02/05/25 @ 02:35 by Fredi Curry MD) Chronic hypoxemic respiratory failure Small cell lung cancer Nicotine use disorder PTSD (post-traumatic stress disorder) Bipolar disorder current episode depressed Psychiatric care History of attempted suicide Hypothyroidism (acquired) Duodenitis Gastritis Sleep apnea Obesity Bipolar affect, depressed Depression Hypertension Diabetes Oxygen dependent CHF (congestive heart failure) GERD (gastroesophageal reflux disease) COPD (chronic obstructive pulmonary disease) 3L o2 , mild to mod copd responsive to bronchodilator Enrolled in chronic care management Surgical History History of appendectomy H/O colonoscopy with polypectomy H/O esophagogastroduodenoscopy Tubal ligation status S/P cholecystectomy Family History Father Lung cancer Sister Ovarian cancer Mother Diabetes Other CAD (coronary artery disease) Social History (Updated 02/05/25 @ 02:33 by Fredi Curry MD) Smoking and tobacco/nicotine status: current every day tobacco/nicotine user cigarettes Packs smoked per day: 1 Years cigarettes smoked: 37 [ Other cigarette details: She had quit smoking for 8 months, but then started again.] Alcohol intake: former Year of sobriety/quit date alcohol: 1999 Substance/Drug Use: never Additional social history: She lives alone and states she drives herself to her chemo. She wants full CODE STATUS as discussed today with Fredi Curry MD on 02/05/2025 Adopted: No Caregiver/support person: No Lives independently: No Household members: family Housing: House Current gender identity: Female Vitals/I&O/Wt Last Vital Signs Temp 98.4 F 02/05/25 00:44 Pulse 104 H 02/05/25 00:44 Resp 16 02/05/25 00:32 BP 132/90 02/05/25 00:44 Pulse Ox 90 02/05/25 00:44 O2 Del Method Nasal Cannula 02/05/25 00:46 O2 Flow Rate 3 02/05/25 00:44 Weight last 48 hrs Weight 111.629 kg Weight 109.769 kg Physical Exam Narrative: General Well-developed morbidly obese female in no acute cardiopulmonary distress she is alert oriented and talkative. She speaks in full voice. CV regular rate and rhythm Lungs coarse inspiratory and expiratory breath sounds throughout the lungs. Abdomen positive bowel sounds soft obese Calves no tenderness cords pretibial edema or asymmetry Skin warm and dry Mood and affect gregarious talkative somewhat boisterous verbose affect Data 02/04/25 20:16 02/04/25 20:16 A&P Assessment and plan (1) Pleuritic chest pain: Add Decadron for anti-inflammatory as well as ibuprofen. Continue with narcotic pain meds as needed. Add DuoNebs. 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 I have put her on 1800-calorie diabetic weight loss diet. Last A1c was 6.8 on 07/12/2024 (9) Hypothyroidism (acquired): Last TSH 1.53 on 07/12/2024 PDMP PDMP Reviewed: Not Reviewed Attestations Medical Necessity Statement*: Patient is placed in the hospital on observation for the pleurisy. Cardiac enzyme pending as well as response to pain meds and anti-inflammatories. 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 C34.11 Chronic constipation K59.09 Sleep apnea G47.30 Chronic hypoxemic respiratory failure J96.11 COPD (chronic obstructive pulmonary disease) J44.9 Type 2 diabetes mellitus with stage 2 chronic kidney disease, with long-term current use of insulin E11.22; N18.2; Z79.4 Diabetes mellitus type: type 2 Diabetes mellitus skilled nursing insulin use: with terminal gauger supervisor use Diabetes mellitus complication status: with kidney complications Diabetes mellitus complication detail: with chronic kidney disease Chronic kidney disease stage: stage 2 (mild) Hypothyroidism (acquired) E03.9 Time Spent (min) 55
--- NOTE | 2025-02-05 02:39 | ECG_ITS ---
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
[2025-02-05] MEDS: dexamethasone 4 mg/mL INJ PO (03:14)
[2025-02-05 03:58] LABS: Base Excess VBG 0.5 mmol/L (-3.0-3.0); Blood Gas Operator Identificat MONRO; Blood Gas Sample Site Not specified; Blood Gas Sample Type Venous; Oxygen Device NC; PCO2 VBG 44.4 mmHg (41-51); PO2 VBG 65.2 mmHg (25-40); Venous Blood Gas Hematocrit 34.8 % (37-47); pH VBG 7.38 (7.32-7.42)
[2025-02-05 04:19] LABS: Troponin 5 6HR 6.46 ng/L (0-10)
[2025-02-05 04:20] LABS: Troponin 5 6HR Delta -1.54 ng/L (0-12)
[2025-02-05 04:56] LABS: Blood Urea Nitrogen 14 mg/dL (8-23); Calcium 9.1 mg/dL (8.5-10.5); Carbon Dioxide 25 mmol/L (22-29); Chloride 99 mmol/L (98-107); Creatinine Clr Calc Pharmacy 80.8473; Glomerular Filtration Rate 99.4 mL/min (90-130); Glucose 159 mg/dL (65-115); Osmolality Calculated 288 mOsm/kg (285-295); Phosphorus 3.8 mg/dL (2.5-4.5); Sodium 137 mmol/L (136-145)
[2025-02-05] MEDS: levothyroxine 25 mcg Tablet PO (05:41)
[2025-02-05 06:46] LABS: Glucose Point of Care 200 mg/dL (70-110)
[2025-02-05] MEDS: ipratropium-albuterol 3 mL Neb INHALATION ×4 (07:38→20:18)
[2025-02-05] MEDS: ibuprofen 600 mg Tablet PO ×3 (08:33→20:45)
[2025-02-05] MEDS: ATORVASTATIN 10 MG TABLET PO (08:33)
[2025-02-05] MEDS: venlafaxine ER (24HR) 150 mg Capsule PO (08:33)
[2025-02-05] MEDS: pantoprazole DR 40 mg Tablet PO ×2 (08:33→17:19)
[2025-02-05] MEDS: losartan 50 mg Tablet 100 MG PO (08:33)
[2025-02-05] MEDS: gabapentin 100 mg Capsule 300 MG PO ×3 (08:33→20:45)
[2025-02-05] MEDS: aspirin 81 mg EC Tablet PO (08:35)
--- NOTE | 2025-02-05 09:03 | US_ITS ---
WS: [id number] RIGHT UPPER QUADRANT ULTRASOUND HISTORY: abdominal pain COMPARISON: 01/14/2012, PET/CT 12/08/2024 Liver: 18.2 cm in length. Liver is slightly enlarged. Liver is poorly visualized in its entirety due to bowel gas and high riding liver within the chest. No intrahepatic duct dilatation. Portal Vein: Normal hepatopetal flow with monophasic waveform. Gallbladder: Prior cholecystectomy. CBD: 0.4 cm Pancreas: Nonvisualized. Right kidney: 8.8 cm in length. Kidney is mildly atrophied. No obstruction. Aorta and IVC: Unremarkable abdominal aorta and IVC. No ascites. US/US abdomen limited [id number] IMPRESSION: 1. Technically difficult and limited RIGHT upper quadrant ultrasound. 2. Prior cholecystectomy. 3. Mildly enlarged liver. 4. Mild RIGHT renal atrophy.
[2025-02-05] MEDS: UBROGEPANT 50 MG 50 EACH PO (09:25)
--- NOTE | 2025-02-05 09:49 | PC.CHAP ---
Pastoral Care Encounter/Spiritual Assessment Type of Contact [] Declined medication aide visit [] Patient/Family/Request visit [] Outpatient visit [] Follow-up visit [] Physician referral [] Code/Alert [x] Routine visit [] Staff referral [] Actively dying [] Patient sleeping [] Family support [] [] Out of room [] Palliative care [] [] Receiving care in room [] Pre-surgical visit [] Trauma [] Long length of stay [] ICU visit [] Other: Relational/Emotional Strength [] Patient feels connected with others/family/visitors/staff [] Distress [] Loneliness/isolation [] Abandonment Spirituality of Patient [x] Person of Arabella [] Attends Hoahaoism of their Arabella [x] Believes in Prayer [] Reads Bible or Voodoo materials [] There are Spiritual issues to be addressed Services Manager Interventions [x] Prayer [x] Active listening [] Non-anxious presence [] Spiritual/emotional support [] Crisis/trauma care [] Spiritual counseling [] Bereavement support [] Provided bereavement packet [x] Provided Bible/devotional materials [] Provided toy/stuffed animal, coloring book to patient or family member [] Provided Communion [] Anointing/[place] [] Salvation [x] Completed spiritual assessment [] Other: Impact on Illness or Injury [] Angry [] Fearful [] Anxious [] Often cries [] Exhaustion [] Unable to work [] Unable to attend yazidism [] Unable to walk/stand [] Unable to read [] Unable to drive [] Unable to eat/drink [] Unable to sleep [] Unable to be with family [] Patient intubated [] Other: Summary Time spent with patient 10 min
[2025-02-05 11:15] LABS: Glucose Point of Care 206 mg/dL (70-110)
[2025-02-05] MEDS: insulin lispro 100 unit/1 mL SUBCUT ×3 (12:15→21:19)
[2025-02-05 16:07] LABS: Glucose Point of Care 181 mg/dL (70-110)
[2025-02-05] MEDS: nystatin powder 15 gm Btl 1 APPLIC TOPICAL (17:19)
--- NOTE | 2025-02-05 19:13 | P.PN_ITS ---
Subjective 2 Subjective: The patient was seen as she was completing her showering. She tells me that she continues to experience pain in the right upper quadrant aspect of her abdomen right underneath her right breast. She states that she has fallen twice due to syncopal episodes but it is not a fall that brought her to the hospital. She states that she called and cancelled her appt with her Oncologist today. She denies any shortness of breath, fever, chills, CP, palpitations, coughing, wheezing. She complains about an uncomfortable sensation in her groin, due to some bumps, and she would like them removed. Vitals/I&O/Wt Last Vital Signs Temp 98.2 F 02/05/25 16:00 Pulse 76 02/05/25 16:00 Resp 18 02/05/25 16:00 BP 132/90 02/05/25 16:00 Pulse Ox 92 02/05/25 16:00 O2 Del Method Nasal Cannula 02/05/25 16:00 O2 Flow Rate 2.5 02/05/25 15:14 02/05/25 02/05/25 02/05/25 06:59 14:59 22:59 Intake Total 360 / 360 Output Total 150 / 150 700 / 850 Balance 210 / 210 -700 / -490 Weight last 48 hrs Weight 111.725 kg Weight 111.629 kg Weight 109.769 kg Physical Exam 2 Narrative: Constitutional: GENERAL APPEARANCE: cooperative, comfortable and appears older than stated age; not combative, not disheveled, not ill appearing and not frail appearing HENT: HEAD & SCALP: normocephalic and atraumatic; no Jacques's sign, no laceration, no occipital foramen tenderness, no palpable skull fracture, no raccoon eyes, no scalp tenderness and no Temporal artery tenderness present NOSE: external nose not normal EXTERNAL EAR: no external ears normal MOUTH: Normal oral and palatal mucosa present THROAT: posterior oropharynx normal Eye: PERRL, EOMI, normal conjunctiva b/l Neck: normal visual inspection, trachea midline, No anterior neck swelling, No tracheal deviation, No tracheostomy present, no submandibular swelling, Thyroid normal , cervical ROM normal Lymph: no cervical, supraclavicular LAD Resp: no use of accessory muscles. Coarse inspiratory breath sounds and expiratory wheezing predominantly throughout the right lung cotton. Cardio: RRR, no m/r/g, or clicks. 2+ radial and DP pulses. GI: normoactive bowel sounds, interestingly tender to palpation in the RUQ, but she had a negative Razo sign, and nondistended abdomen, no guarding, no rigidity, no rebound tenderness, or hepatosplenomegaly. : No Bassett in place Back/Pelvis: Deferred Extremity: No clubbing, No cyanosis and No edema. b/l dark hyperkeratotic nodules concerning for seborrheic keratosis Neuro: AO to person, place and time. CN normal except as noted. Normal gait present. 5/5 motor strength present throughout. Normal motor muscle tone present throughout. No tremor noted. No motor abnormalities present. 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 Continue with narcotic pain meds as needed. Add DuoNebs. Start incentive spirometry and patient remains in the hospital overnight will require her trilogy machine #RUQ Abd pain - F/u RUQ abd US. 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 Will consider adding antibiotics # Diabetes: Start sliding scale insulin. I have put her on 1800-calorie diabetic weight loss diet. Last A1c was 6.8 on 07/12/2024 # Hypothyroidism (acquired): Last TSH 1.53 on 07/12/2024 #b/l groin maceration: Nystatin powder twice daily ordered. #Groin nodules: likely seborrheic keratosis -Informed the patient, that she would have to follow-up with dermatology for them to be removed. DVT: Lovenox PDMP PDMP Reviewed: Not Reviewed Attestations 2 Medical Necessity Statement*: The patient needs to be hospitalized for greater then 2 midnights to be further evaluated for her pleuritic chest pain versus right upper quadrant abdominal pain. 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
[2025-02-05] MEDS: doxepin 25 mg Capsule 50 MG PO (20:45)
[2025-02-05] MEDS: latanoprost 0.005% Op Soln 2.5 mL Btl 1 DROP EYE-BOTH (20:45)
[2025-02-05 20:47] LABS: Glucose Point of Care 145 mg/dL (70-110)
[2025-02-06] VITALS (8 sets, daily range): BP systolic 131–145; BP diastolic 79–86; PULSE 91–107; RESP 14–18; TEMP 36.4–37.1; O2SAT 91–99
[2025-02-06] MEDS: cefTRIAXone 2,000 mg SDV 2000 MG IVP (01:06)
[2025-02-06] MEDS: AZITHROMYCIN ADD-Vantage 500 MG in 0.9% NaCl ADD-Vantage 250 ML 250 MG IV (01:07)
[2025-02-06 05:05] LABS: Basophils % 0.2 %; Eosinophils % 0.1 %; Hematocrit 31.5 % (36-47); Lymphocytes # 0.7 10^3/uL (0.8-4.8); Lymphocytes % 7.4 %; Mean Corpuscular HGB Conc 31.1 g/dL (30-55); Mean Corpuscular Hemoglobin 29.1 pg (27-33); Mean Corpuscular Volume 93.5 fl (85-98); Mean Platelet Volume 10.1 fL (7.4-10.4); Monocytes # 0.8 10^3/uL (0.2-0.9); Monocytes % 8.8 %; Neutrophils # 7.48 10^3/uL (1.8-7.7); Neutrophils % 82.7 %; Nucleated Red Blood Cells % 0 %; Platelet Count 234 10^3/cmm (157-399); Red Blood Count 3.37 10^6/uL (3.85-5.65); Red Cell Distribution Width 16.1 % (12.1-15.1); White Blood Count 9.05 10^3/uL (3.29-11.43)
[2025-02-06 05:37] LABS: Alanine Aminotransferase 9 U/L (0-33); Albumin Level 3.4 g/dL (3.5-5.2); Alkaline Phosphatase 98 U/L (35-105); Anion Gap 14.2 (5-19); Aspartate Amino Transferase 8 U/L (0-32); Blood Urea Nitrogen 17 mg/dL (8-23); Calcium 8.8 mg/dL (8.5-10.5); Carbon Dioxide 26 mmol/L (22-29); Chloride 104 mmol/L (98-107); Creatinine Clr Calc Pharmacy 80.8881; Globulin 2.5 g/dL (1.3-4.6); Glomerular Filtration Rate 99.4 mL/min (90-130); Glucose 115 mg/dL (65-115); Osmolality Calculated 292 mOsm/kg (285-295); Phosphorus 3.9 mg/dL (2.5-4.5); Potassium 4.2 mmol/L (3.5-5.1); Sodium 140 mmol/L (136-145); Total Bilirubin 0.2 mg/dL (0.15-1.2); Total Protein 5.9 g/dL (6.6-8.7)
[2025-02-06] MEDS: levothyroxine 25 mcg Tablet PO (06:08)
[2025-02-06 06:21] LABS: Glucose Point of Care 126 mg/dL (70-110)
[2025-02-06] MEDS: ipratropium-albuterol 3 mL Neb INHALATION ×2 (08:05→11:17)
[2025-02-06] MEDS: ibuprofen 600 mg Tablet PO (09:07)
[2025-02-06] MEDS: venlafaxine ER (24HR) 150 mg Capsule PO (09:07)
[2025-02-06] MEDS: pantoprazole DR 40 mg Tablet PO (09:07)
[2025-02-06] MEDS: ATORVASTATIN 10 MG TABLET PO (09:07)
[2025-02-06] MEDS: aspirin 81 mg EC Tablet PO (09:07)
[2025-02-06] MEDS: methylPREDNISolone sod succ 125 mg/2 mL INJ 60 MG IVP (09:07)
[2025-02-06] MEDS: gabapentin 100 mg Capsule 300 MG PO (09:07)
[2025-02-06] MEDS: enoxaparin 40 mg/0.4 mL Syringe SUBCUT (09:07)
[2025-02-06] MEDS: metoprolol tartrate 25 mg Tablet PO (09:09)
[2025-02-06] MEDS: losartan 50 mg Tablet 100 MG PO (09:09)
[2025-02-06] MEDS: magnesium hydroxide 30 mL UDC PO (09:15)
[2025-02-06] MEDS: nystatin powder 15 gm Btl 1 APPLIC TOPICAL (09:16)
[2025-02-06 12:10] LABS: Glucose Point of Care 155 mg/dL (70-110)
[2025-02-06] MEDS: insulin lispro 100 unit/1 mL SUBCUT (12:30)
--- NOTE | 2025-02-06 13:19 | PM.DCS ---
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: Status: Inactive (4) Chronic constipation: Status: Inactive (5) Sleep apnea: Status: Inactive (6) Chronic hypoxemic respiratory failure: Status: Inactive (7) COPD (chronic obstructive pulmonary disease): Status: Inactive Permanent problem details: 3L o2 , mild to mod copd responsive to bronchodilator (8) Diabetes: Status: Inactive Qualifiers: Chronic kidney disease stage: stage 2 (mild) Diabetes mellitus complication detail: with chronic kidney disease Diabetes mellitus complication status: with kidney complications Diabetes mellitus intermediate teacher insulin use: with snf use Diabetes mellitus type: type 2 Qualified Code(s): E11.22 - Type 2 diabetes mellitus with diabetic chronic kidney disease; N18.2 - Chronic kidney disease, stage 2 (mild); Z79.4 - [facility] (current) use of insulin (9) Hypothyroidism (acquired): Status: Inactive Reason for Visit Reason for Visit: SOB Hospital Course Hospital Course Per HPI, Marli Eli is a 69 year old female with history of small cell lung cancer treated by Dr. Cardoso currently. She had history of past treatment with chemoradiation but had evidence of progression. Patient had in July 2023 3.4 cm mass in the right upper lung. Bronchoscopy 07/21/2023 confirmed small cell carcinoma. Patient presented today with right lower chest and right upper quadrant abdominal pain worse with deep breaths. She has received 3 shots that has finally taken the pain away and states that it only hurts now when she takes a deep breath but much less than on presentation she has chronic cough but continues to smoke 1 pack/day. She states she did quit smoking for 8 months following her July 2023 diagnosis but then felt suicidal so decided to go back to smoking. Patient declines a nicotine patch here states that she quit cold turkey last time and would do so again. Patient has been on MyFit machine for 7 years with 3 L/min oxygen bleed in. She states she uses about 8 hours a day and her respiratory therapist is going to replace her machine because the current one is getting old. Patient states she called and canceled her chemotherapy for tomorrow as well as her ride. She states her brother is going to [place] and could case picker her Trelegy machine and bring it in tomorrow if she stay she does not know the settings In the ED, she was given morphine which helped resolve the pleuritic pain. A CTA of the chest was done, and it was negative for a PE, but it did show persistent consolidative scarring involving the posterior left upper lung as well as the posterior mediastinal mass that appeared to be arising from the esophagus, that was significantly decreased in size compared to what it was on a PET/CT that was done on 12/08/2024. She was admitted for further management. On admission, she was given Decadron as well as ibuprofen for the pleuritic chest pain. It was noted that she was wheezing diffusely throughout the right lung cotton, so she was started on treatment for acute COPD exacerbation. Given the location of her pleuritic chest pain which was right underneath her breast and around the right upper quadrant, a right upper quadrant abdominal ultrasound was ordered, that showed no specific findings in the gallbladder or liver, except that she has had a prior cholecystectomy. The RUQ US also showed a mild right renal atrophy. She felt better the next day, was discharged with treatment for acute COPD exacerbation. She was also discharged to follow-up with her oncologist. She was encouraged to return if the pleuritic chest pain returned and she did not feel better. Of note, while hospitalized, she was noted to have bilateral groin maceration concerning for the early stages of intertrigo, so nystatin powder was ordered, and she was discharged with miconazole powder. She also complained of bilateral nodules that were in her groin, which was deemed to be likely seborrheic keratosis. She was informed that she would have to follow-up with dermatology who would remove it. # Pleuritic chest pain: #RUQ Abd pain #Acute COPD (chronic obstructive pulmonary disease)exacerbation #b/l groin maceration: Nystatin powder twice daily ordered. #Groin nodules: likely seborrheic keratosis -Informed the patient, that she would have to follow-up with dermatology for them to be removed. 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 I have put her on 1800-calorie diabetic weight loss diet. Last A1c was 6.8 on 07/12/2024 # Hypothyroidism (acquired): Last TSH 1.53 on 07/12/2024 # Chronic constipation: Continue with stool softeners and MiraLAX Physical Exam Narrative: Constitutional: GENERAL APPEARANCE: cooperative, comfortable and appears older than stated age; not combative, not disheveled, not ill appearing and not frail appearing HENT: HEAD & SCALP: normocephalic and atraumatic; no Jacques's sign, no laceration, no occipital foramen tenderness, no palpable skull fracture, no raccoon eyes, no scalp tenderness and no Temporal artery tenderness present NOSE: external nose not normal EXTERNAL EAR: no external ears normal MOUTH: Normal oral and palatal mucosa present THROAT: posterior oropharynx normal Eye: PERRL, EOMI, normal conjunctiva b/l Neck: normal visual inspection, trachea midline, No anterior neck swelling, No tracheal deviation, No tracheostomy present, no submandibular swelling, Thyroid normal , cervical ROM normal Lymph: no cervical, supraclavicular LAD Resp: no use of accessory muscles. Coarse inspiratory breath sounds and expiratory wheezing predominantly throughout the right lung cotton. Cardio: RRR, no m/r/g, or clicks. 2+ radial and DP pulses. GI: normoactive bowel sounds, interestingly tender to palpation in the RUQ, but she had a negative Razo sign, and nondistended abdomen, no guarding, no rigidity, no rebound tenderness, or hepatosplenomegaly. : No Bassett in place Back/Pelvis: Deferred Extremity: No clubbing, No cyanosis and No edema. b/l dark hyperkeratotic nodules concerning for seborrheic keratosis Neuro: AO to person, place and time. CN normal except as noted. Normal gait present. 5/5 motor strength present throughout. Normal motor muscle tone present throughout. No tremor noted. No motor abnormalities present. No motor fasciculations present Psych: APPEARANCE: Yes grossly normal ATTITUDE: Yes calm and Yes engaged ACTIVITY/MOTOR BEHAVIOR: Yes appropriate eye contact SPEECH: Yes normal speech MOOD & AFFECT: Yes euthymic mood THOUGHT PROCESS: Normal thought process present THOUGHT CONTENT: Yes Normal thought content present ATTENTION/CONCENTRATION: Yes attention grossly intact MEMORY/COGNITION: Yes memory grossly intact Discharge Data Studies Completed and Pending Completed Studies During Hospitalization Category Date Time Status CT angio chest PE protcl [id number] Urgent Cat Scan 02/04/25 21:26 Completed XR chest 1V portable [id number] Stat Exams 02/04/25 19:58 Completed US abdomen limited [id number] Routine Ultrasound 02/05/25 09:03 Completed Pending at discharge Category Date Time Status CBC Auto Diff [Complete Blood Count w/Auto] AM LABS Lab 02/07/25 04:00 Ordered CBC Auto Diff [Complete Blood Count w/Auto] AM LABS Lab 02/08/25 04:00 Ordered CMP [Comprehensive Metabolic Panel] AM LABS Lab 02/07/25 04:00 Ordered CMP [Comprehensive Metabolic Panel] AM LABS Lab 02/08/25 04:00 Ordered Magnesium AM LABS Lab 02/07/25 04:00 Ordered Magnesium AM LABS Lab 02/08/25 04:00 Ordered Phosphorus AM LABS Lab 02/07/25 04:00 Ordered Phosphorus AM LABS Lab 02/08/25 04:00 Ordered Radiology Impressions Chest X-Ray 02/04/25 19:58 IMPRESSION: No acute cardiopulmonary findings. Chest CTA 02/04/25 21:26 IMPRESSION: 1. No evidence of pulmonary artery emboli. 2. Persistent consolidative scarring involving the posterior left upper lung. 3. Redemonstrated posterior mediastinal mass, appearing to arise from the esophagus, significantly decreased in size compared to PET-CT 12/08/2024, now measuring up to 3.1 cm. Abdomen Ultrasound 02/05/25 09:03 IMPRESSION: 1. Technically difficult and limited RIGHT upper quadrant ultrasound. 2. Prior cholecystectomy. 3. Mildly enlarged liver. 4. Mild RIGHT renal atrophy. Laboratory Results WBC 9.05 10^3/uL (3.29-11.43) 02/06/25 04:48 RBC 3.37 10^6/uL (3.85-5.65) L 02/06/25 04:48 Hgb 9.80 g/dL (11.27-16.99) L 02/06/25 04:48 Hct 31.5 % (36-47) L 02/06/25 04:48 MCV 93.5 fl (85-98) 02/06/25 04:48 MCH 29.1 pg (27-33) 02/06/25 04:48 MCHC 31.1 g/dL (30-55) 02/06/25 04:48 RDW 16.1 % (12.1-15.1) H 02/06/25 04:48 Plt Count 234 10^3/cmm (157-399) 02/06/25 04:48 MPV 10.1 fL (7.4-10.4) 02/06/25 04:48 Neut % (Auto) 82.7 % 02/06/25 04:48 Lymph % (Auto) 7.4 % 02/06/25 04:48 Sanders % (Auto) 8.8 % 02/06/25 04:48 Eos % (Auto) 0.1 % 02/06/25 04:48 Baso % (Auto) 0.2 % 02/06/25 04:48 Neut # (Auto) 7.48 10^3/uL (1.8-7.7) 02/06/25 04:48 Lymph # (Auto) 0.7 10^3/uL (0.8-4.8) L 02/06/25 04:48 Sanders # (Auto) 0.8 10^3/uL (0.2-0.9) 02/06/25 04:48 Eos # (Auto) 0.0 10^3/uL (0.0-0.8) 02/06/25 04:48 Baso # (Auto) 0.0 10^3/uL (0.0-0.1) 02/06/25 04:48 Nucleated RBC % (auto) 0 % 02/06/25 04:48 Nucleated RBCs # 0.0 /100WBC 02/06/25 04:48 Specimen Type Venous 02/05/25 03:04 Sample Site Not specified 02/05/25 03:04 Leonel Test N/a 02/05/25 03:04 VBG pH 7.38 (7.32-7.42) 02/05/25 03:04 VBG pCO2 44.4 mmHg (41-51) 02/05/25 03:04 VBG pO2 65.2 mmHg (25-40) H 02/05/25 03:04 VBG HCO3 26.0 mmol/L (24-28) 02/05/25 03:04 VBG Base Excess 0.5 mmol/L (-3.0-3.0) 02/05/25 03:04 VBG Hematocrit 34.8 % (37-47) L 02/05/25 03:04 O2 Delivery Device Nc 02/05/25 03:04 O2 Liters/Min 2.0 % 02/05/25 03:04 FiO2 28.0 % 02/05/25 03:04 Plateman ID Nakul 02/05/25 03:04 Sodium 140 mmol/L (136-145) 02/06/25 04:48 Potassium 4.2 mmol/L (3.5-5.1) 02/06/25 04:48 Chloride 104 mmol/L (98-107) 02/06/25 04:48 Carbon Dioxide 26 mmol/L (22-29) 02/06/25 04:48 Anion Gap 14.2 (5-19) 02/06/25 04:48 BUN 17 mg/dL (8-23) 02/06/25 04:48 Creatinine 0.6 mg/dL (0.5-0.9) 02/06/25 04:48 GFR Calculation 99.4 mL/min (90-130) 02/06/25 04:48 Glucose 115 mg/dL (65-115) 02/06/25 04:48 POC Glucose 155 mg/dL (70-110) H 02/06/25 11:00 Calculated Osmolality 292 mOsm/kg (285-295) 02/06/25 04:48 Calcium 8.8 mg/dL (8.5-10.5) 02/06/25 04:48 Phosphorus 3.9 mg/dL (2.5-4.5) 02/06/25 04:48 Magnesium 2.0 mg/dL (1.7-2.3) 02/06/25 04:48 Total Bilirubin 0.2 mg/dL (0.15-1.2) 02/06/25 04:48 AST 8 U/L (0-32) 02/06/25 04:48 ALT 9 U/L (0-33) 02/06/25 04:48 Alkaline Phosphatase 98 U/L (35-105) 02/06/25 04:48 Troponin T Baseline 8 ng/L (0-10) 02/04/25 20:16 Troponin T 120 Minute 7.37 ng/L (0-10) 02/04/25 20:25 Delta Troponin T -0.63 ABS# (0-10) L 02/04/25 20:25 Troponin T Hi Sens 6Hr 6.46 ng/L (0-10) 02/05/25 03:04 Troponin T Hi Sens 6Hr Delta -1.54 ng/L (0-12) L 02/05/25 03:04 Total Protein 5.9 g/dL (6.6-8.7) L 02/06/25 04:48 Albumin 3.4 g/dL (3.5-5.2) L 02/06/25 04:48 Globulin 2.5 g/dL (1.3-4.6) 02/06/25 04:48 Influenza A (PCR) Negative (Negative) 02/04/25 20:46 Influenza Type B (PCR) Negative (Negative) 02/04/25 20:46 RSV (PCR) Negative (Negative) 02/04/25 20:46 SARS-CoV-2 (PCR) Negative (Negative) 02/04/25 20:46 Vitals Last Vital Signs Temp 97.6 F 02/06/25 11:38 Pulse 97 02/06/25 11:38 Resp 15 02/06/25 11:38 BP 145/86 02/06/25 11:38 Pulse Ox 97 02/06/25 11:38 O2 Del Method Nasal Cannula 02/06/25 11:38 O2 Flow Rate 3 02/06/25 11:18 Discharge Plan Discharge Patient Disposition: Home Condition: Stable Prescriptions: New miconazole nitrate 2 % powder 1 applic topical BID 7 Days Qty: 85 0RF Rx Instructions: Clean groin daily. Then apply the topical powder on both sides of the groin twice a day. prednisone 50 mg tablet 50 mg PO DAILY 3 Days Qty: 3 0RF azithromycin 500 mg tablet 500 mg PO DAILY 4 Days Qty: 4 0RF albuterol sulfate [Ventolin HFA] 90 mcg/actuation HFA aerosol inhaler 2 inh inhalation Q6H PRN (Reason: shortness of breath or wheezing) Qty: 8.5 0RF Continued aspirin 81 mg tablet,delayed release (DR/EC) 81 mg PO DAILY atorvastatin 10 mg tablet 10 mg PO DAILY 90 Days Qty: 90 2RF insulin lispro [Humalog KwikPen Insulin] 100 unit/mL insulin pen See Rx Instructions SUBCUT TID PRN (Reason: blood sugar) Rx Instructions: Use per sliding scale subcutaneously three times daily. doxepin 25 mg capsule 50 mg PO BEDTIME latanoprost 0.005 % drops 1 drp ophthalmic (eye) BEDTIME gabapentin 100 mg capsule 100 mg PO DAILY prochlorperazine maleate [Compazine] 10 mg tablet 10 mg PO Q4H PRN (Reason: mild nausea) Qty: 30 3RF ondansetron HCl 4 mg tablet 4 mg PO Q6H PRN (Reason: nausea and vomiting) Qty: 30 3RF lorazepam 1 mg tablet 0.5 - 1 mg PO Q6H PRN (Reason: severe nausea) Qty: 30 3RF venlafaxine 150 mg capsule,extended release 24hr 150 mg PO DAILY losartan 100 mg tablet 100 mg PO DAILY Trulicity 3 mg/0.5 mL pen injector 3 mg SUBCUT Q7D Rx Instructions: ON WEDNESDAY levothyroxine 25 mcg tablet 25 mcg PO QAM metoprolol tartrate 25 mg tablet 25 mg PO DAILY magnesium hydroxide [Dulcolax (magnesium hydroxide)] 400 mg/5 mL Suspension 30 ml PO Q2H PRN (Reason: Constipation) ubrogepant 50 mg Tablet 50 mg PO 1XD PRN (Reason: Migraine Headache) No Action pantoprazole 40 mg tablet,delayed release (DR/EC) 40 mg PO BID Qty: 180 0RF Rx Instructions: dose increase Discharge Orders: Discharge Order (Routine); Ordered 02/06/25 Ordered By: Michelle Walker Referrals: Kiesha Tavarez FNP [Primary Care Provider, Nurse Practitioner] - 02/15/25 7:30 am Discharge Diet: Advance as tolerated Discharge Activity: Increase activity as tolerated Patient Instructions: Albuterol (By breathing), Prednisone (By mouth), Azithromycin (By mouth), COPD Stoplight, Opioid Safety Patient's Health Concerns: Please do not forget to call your Oncologist and make an appointment for your chemotherapy infusion. 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
== END 2025-02-06 13:30 | disposition home or self-care (01) | DRG 191 ==
LOC: ER 20:48 → MEDSURG 02-05 00:24
PROVIDERS: Admitting Provider Internal Medicine; Emergency Provider Emergency Medicine; PCP Nurse Practitioner Family; Visit Provider Internal Medicine
DX: J44.1 Chronic obstructive pulmonary disease with (acute) exacerbation (principal); C34.11 Malignant neoplasm of upper lobe, right bronchus or lung; J96.11 Chronic respiratory failure with hypoxia; Z68.41 Body mass index [BMI] 40.0-44.9, adult; R07.81 Pleurodynia; K59.09 Other constipation; G47.30 Sleep apnea, unspecified; E11.22 Type 2 diabetes mellitus with diabetic chronic kidney disease; I12.9 Hypertensive chronic kidney disease with stage 1 through stage 4 chronic kidney disease, or unspecified chronic kidney disease; N18.2 Chronic kidney disease, stage 2 (mild); E03.9 Hypothyroidism, unspecified; F17.210 Nicotine dependence, cigarettes, uncomplicated; L30.4 Erythema intertrigo; L82.1 Other seborrheic keratosis; K21.9 Gastro-esophageal reflux disease without esophagitis; R10.11 Right upper quadrant pain; E66.9 Obesity, unspecified; F31.9 Bipolar disorder, unspecified; F43.10 Post-traumatic stress disorder, unspecified; Z99.81 Dependence on supplemental oxygen; Z79.60 Long term (current) use of unspecified immunomodulators and immunosuppressants; Z79.51 Long term (current) use of inhaled steroids; Z79.4 Long term (current) use of insulin; Z79.82 Long term (current) use of aspirin; Z92.3 Personal history of irradiation
CPT/HCPCS: 36415; 36416; 71045; 71275; 76705; 80048; 80053; 82803; 82962; 83735; 84100; 84484; 85025; 87637; 93005; 94640; 94664; 96372; 97116; 97161; 97165; 97530; G0378; J0456; J0696; J1100; J1650; J1815; J2270; J2405; J2919; J7050; J9999

== ENCOUNTER 2025-02-19 12:14 | Oncology outpatient (recurring) (ONCR) | payer MEDICARE, MEDICAID, SELFPAY ==
[2025-02-19 12:28] LABS: Basophils # 0.1 10^3/uL (0.0-0.1); Basophils % 0.7 %; Eosinophils # 0.1 10^3/uL (0.0-0.8); Hematocrit 37.1 % (36-47); Lymphocytes # 1.2 10^3/uL (0.8-4.8); Lymphocytes % 13.9 %; Mean Corpuscular HGB Conc 31.8 g/dL (30-55); Mean Corpuscular Hemoglobin 29.2 pg (27-33); Mean Corpuscular Volume 91.8 fl (85-98); Mean Platelet Volume 9.2 fL (7.4-10.4); Monocytes # 0.7 10^3/uL (0.2-0.9); Neutrophils # 6.75 10^3/uL (1.8-7.7); Neutrophils % 75.9 %; Nucleated Red Blood Cells % 0 %; Platelet Count 251 10^3/cmm (157-399); Red Blood Count 4.04 10^6/uL (3.85-5.65); Red Cell Distribution Width 16.4 % (12.1-15.1); White Blood Count 8.88 10^3/uL (3.29-11.43)
[2025-02-19 12:52] LABS: Alanine Aminotransferase 10 U/L (0-33); Albumin Level 4.1 g/dL (3.5-5.2); Alkaline Phosphatase 114 U/L (35-105); Aspartate Amino Transferase 10 U/L (0-32); Blood Urea Nitrogen 19 mg/dL (8-23); Calcium 9.4 mg/dL (8.5-10.5); Carbon Dioxide 24 mmol/L (22-29); Chloride 103 mmol/L (98-107); Creatine Phosphokinase 26 U/L (26-192); Creatinine Clr Calc Pharmacy 79.2859; Globulin 2.8 g/dL (1.3-4.6); Glomerular Filtration Rate 83.2 mL/min (90-130); Glucose 114 mg/dL (65-115); Osmolality Calculated 289 mOsm/kg (285-295); Sodium 138 mmol/L (136-145); Total Bilirubin 0.2 mg/dL (0.15-1.2); Total Protein 6.9 g/dL (6.6-8.7)
[2025-02-19] MEDS: palonosetron 0.25 mg/5 mL SDV IVP (13:52)
[2025-02-19] MEDS: dexamethasone 4 mg/mL INJ 5 mL 12 MG IVP (13:52)
[2025-02-19] MEDS: sodium chloride 0.9% 250 ML 75 ML IV (13:52)
[2025-02-19] MEDS: SODIUM CHLORIDE 0.9% IV (14:20)
[2025-02-19] MEDS: LURBINECTEDIN IV (14:20)
[2025-02-19] MEDS: pegfilgrastim 6 mg/0.6 mL Kit (onpro) SUBCUT (15:37)
== END 2025-02-19 23:59 | disposition home or self-care (01) ==
PROVIDERS: Nurse Practitioner Family; Absent Provider Nurse Practitioner Family; PCP Nurse Practitioner Family; Visit Provider Internal Medicine Medical Oncology
DX: Z51.11 Encounter for antineoplastic chemotherapy (principal); C34.11 Malignant neoplasm of upper lobe, right bronchus or lung; Z79.52 Long term (current) use of systemic steroids; R45.851 Suicidal ideations; Z92.3 Personal history of irradiation; Z79.899 Other long term (current) drug therapy
CPT/HCPCS: 80053; 82550; 85025; 96372; 96375; 96377; 96413; 99214; J1100; J2469; J2506; J7050; J9223

== ENCOUNTER 2025-03-12 09:52 | Oncology outpatient (recurring) (ONCR) | payer MEDICARE, MEDICAID, SELFPAY ==
[2025-03-12 10:16] LABS: Hematocrit 36.6 % (36-47); Hemoglobin 11.50 g/dL (11.27-16.99); Mean Corpuscular HGB Conc 31.4 g/dL (30-55); Mean Corpuscular Hemoglobin 29.1 pg (27-33); Mean Corpuscular Volume 92.7 fl (85-98); Nucleated Red Blood Cells % 0 %; Platelet Count 249 10^3/cmm (157-399); Red Blood Count 3.95 10^6/uL (3.85-5.65); White Blood Count 7.27 10^3/uL (3.29-11.43)
[2025-03-12 10:36] LABS: Alanine Aminotransferase 9 U/L (0-33); Albumin Level 4.0 g/dL (3.5-5.2); Alkaline Phosphatase 141 U/L (35-105); Anion Gap 17.8 (5-19); Aspartate Amino Transferase 10 U/L (0-32); Blood Urea Nitrogen 12 mg/dL (8-23); Calcium 9.2 mg/dL (8.5-10.5); Carbon Dioxide 24 mmol/L (22-29); Chloride 103 mmol/L (98-107); Creatinine Clr Calc Pharmacy 77.2342; Globulin 2.7 g/dL (1.3-4.6); Glucose 104 mg/dL (65-115); Osmolality Calculated 292 mOsm/kg (285-295); Potassium 3.8 mmol/L (3.5-5.1); Sodium 141 mmol/L (136-145); Total Protein 6.7 g/dL (6.6-8.7)
[2025-03-12] MEDS: dexamethasone 4 mg/mL INJ 5 mL 12 MG IVP (12:11)
[2025-03-12] MEDS: LURBINECTEDIN IV (12:52)
[2025-03-12] MEDS: SODIUM CHLORIDE 0.9% IV (12:52)
[2025-03-12] MEDS: pegfilgrastim 6 mg/0.6 mL Kit (onpro) SUBCUT (13:57)
[2025-03-12 14:05] VITALS: BP 112/76; PULSE 98; RESP 18; TEMP 36.1; O2SAT 92
== END 2025-03-12 23:59 | disposition home or self-care (01) ==
PROVIDERS: Absent Provider Nurse Practitioner Family; PCP Nurse Practitioner Family; Visit Provider Internal Medicine Medical Oncology
DX: Z51.11 Encounter for antineoplastic chemotherapy (principal); C34.11 Malignant neoplasm of upper lobe, right bronchus or lung; C78.1 Secondary malignant neoplasm of mediastinum; R45.851 Suicidal ideations; D64.9 Anemia, unspecified; Z87.891 Personal history of nicotine dependence; Z92.3 Personal history of irradiation; Z79.82 Long term (current) use of aspirin; Z79.899 Other long term (current) drug therapy
CPT/HCPCS: 80053; 82550; 85025; 96372; 96375; 96377; 96413; 99214; J1100; J2469; J2506; J7050; J9223

== ENCOUNTER 2025-04-02 09:02 | Oncology outpatient (recurring) (ONCR) | payer MEDICARE, MEDICAID, SELFPAY ==
[2025-04-02 09:26] LABS: Hematocrit 35.0 % (36-47); Hemoglobin 11.30 g/dL (11.27-16.99); Mean Corpuscular HGB Conc 32.3 g/dL (30-55); Mean Corpuscular Hemoglobin 29.8 pg (27-33); Mean Corpuscular Volume 92.3 fl (85-98); Nucleated Red Blood Cells % 0 %; Platelet Count 260 10^3/cmm (157-399); Red Blood Count 3.79 10^6/uL (3.85-5.65); White Blood Count 7.91 10^3/uL (3.29-11.43)
[2025-04-02 09:44] LABS: Alanine Aminotransferase 8 U/L (0-33); Albumin Level 3.8 g/dL (3.5-5.2); Alkaline Phosphatase 128 U/L (35-105); Anion Gap 15.3 (5-19); Aspartate Amino Transferase 9 U/L (0-32); Blood Urea Nitrogen 18 mg/dL (8-23); Calcium 8.9 mg/dL (8.5-10.5); Carbon Dioxide 25 mmol/L (22-29); Chloride 98 mmol/L (98-107); Creatinine Clr Calc Pharmacy 77.2342; Globulin 2.6 g/dL (1.3-4.6); Glucose 127 mg/dL (65-115); Osmolality Calculated 281 mOsm/kg (285-295); Potassium 4.3 mmol/L (3.5-5.1); Sodium 134 mmol/L (136-145); Total Protein 6.4 g/dL (6.6-8.7)
[2025-04-02] MEDS: dexamethasone 4 mg/mL INJ 5 mL 12 MG IVP (12:14)
[2025-04-02] MEDS: LURBINECTEDIN IV (13:42)
[2025-04-02] MEDS: SODIUM CHLORIDE 0.9% IV (13:42)
[2025-04-02 14:56] VITALS: BP 142/92; PULSE 102; RESP 17; TEMP 36.6; O2SAT 95
[2025-04-02] MEDS: pegfilgrastim 6 mg/0.6 mL Kit (onpro) SUBCUT (14:58)
== END 2025-04-02 23:59 | disposition home or self-care (01) ==
PROVIDERS: Absent Provider Nurse Practitioner Family; PCP Nurse Practitioner Family; Visit Provider Internal Medicine Medical Oncology
DX: Z51.11 Encounter for antineoplastic chemotherapy (principal); Z51.12 Encounter for antineoplastic immunotherapy; C34.11 Malignant neoplasm of upper lobe, right bronchus or lung; R45.851 Suicidal ideations; J98.8 Other specified respiratory disorders; Z79.899 Other long term (current) drug therapy
CPT/HCPCS: 80053; 82550; 85025; 96375; 96377; 96413; 99214; J1100; J2469; J2506; J7050; J9223; J9999

== ENCOUNTER 2025-04-23 07:54 | Oncology outpatient (recurring) (ONCR) | payer MEDICARE, MEDICAID, SELFPAY ==
[2025-04-23 08:30] LABS: Hematocrit 33.3 % (36-47); Hemoglobin 10.80 g/dL (11.27-16.99); Mean Corpuscular HGB Conc 32.4 g/dL (30-55); Mean Corpuscular Hemoglobin 30.0 pg (27-33); Mean Corpuscular Volume 92.5 fl (85-98); Nucleated Red Blood Cells % 0 %; Platelet Count 232 10^3/cmm (157-399); Red Blood Count 3.60 10^6/uL (3.85-5.65); White Blood Count 8.18 10^3/uL (3.29-11.43)
[2025-04-23 08:48] LABS: Alanine Aminotransferase 7 U/L (0-33); Albumin Level 4.0 g/dL (3.5-5.2); Alkaline Phosphatase 113 U/L (35-105); Anion Gap 11.5 (5-19); Aspartate Amino Transferase 8 U/L (0-32); Blood Urea Nitrogen 14 mg/dL (8-23); Calcium 9.3 mg/dL (8.5-10.5); Carbon Dioxide 27 mmol/L (22-29); Chloride 101 mmol/L (98-107); Creatinine Clr Calc Pharmacy 77.2342; Globulin 2.5 g/dL (1.3-4.6); Glucose 89 mg/dL (65-115); Osmolality Calculated 282 mOsm/kg (285-295); Potassium 3.5 mmol/L (3.5-5.1); Sodium 136 mmol/L (136-145); Total Protein 6.5 g/dL (6.6-8.7)
== END 2025-04-23 11:45 | disposition home or self-care (01) ==
LOC: ONCMED 07:55
PROVIDERS: Nurse Practitioner Family; Absent Provider Nurse Practitioner Family; PCP Nurse Practitioner Family; Visit Provider Internal Medicine Medical Oncology
DX: C34.11 Malignant neoplasm of upper lobe, right bronchus or lung (principal); F17.210 Nicotine dependence, cigarettes, uncomplicated; G62.9 Polyneuropathy, unspecified; R07.9 Chest pain, unspecified; H54.7 Unspecified visual loss; Z92.3 Personal history of irradiation; Z79.899 Other long term (current) drug therapy
CPT/HCPCS: 80053; 82550; 85025; 99214

== ENCOUNTER 2025-04-23 11:46 | Emergency (ER) | payer MEDICARE, MEDICAID, SELFPAY ==
[2025-04-23] VITALS (10 sets, daily range): BP systolic 121–138; BP diastolic 75–100; PULSE 96–101; RESP 16; TEMP 36.8; O2SAT 91–94
--- NOTE | 2025-04-23 11:48 | ECG_ITS ---
[employer] Test Date: 2025-04-23 Pat Name: Marli Eli Department: Room: Gender: Female Car Oiler: : 1955 Requested By: Malini Umana Order Number: [id number] Delgado MD: Marisa Butterfield M.D. Measurements Intervals [place] Rate: 99 P: 58 AZ: 154 QRS: 79 QRSD: 142 T: 46 QT: 372 QTc: 477 Interpretive Statements SINUS RHYTHM RIGHT BUNDLE BRANCH BLOCK [120+ ms QRS DURATION, UPRIGHT V1, 40+ ms S IN I/aVL/V4/V5/V6] Compared to ECG 02/05/2025 02:39:13 Sinus tachycardia no longer present Electronically Signed On 04-28-2025 09:17:16 CDT by Marisa Butterfield M.D. [email or web address]
--- NOTE | 2025-04-23 11:48 | XR_ITS ---
WS: [id number] Portable AP upright chest, 04/23/2025 Clinical Data: cp Comparison: Portable chest, 02/04/2025, CT angio chest, 02/04/2025 Findings: No nodules, masses or effusions are seen. The heart is normal. The pulmonary vascularity is not increased. No pneumonia or pneumothorax is seen. There is a pleural-based density unchanged in the right upper pleural space. There is shift of the heart and mediastinum from left to right. There is an infusion catheter in the left internal jugular vein which ends at the caval atrial junction. XR/XR chest 1V portable [id number] Impression: 1. Shift of the heart and mediastinum from left to right unchanged. 2. Probable pleural-based scar in right upper pleural space. 3. Posterior mediastinal mass in posterior right lower lobe seen on CT chest bl ends with the right cardiac border. 4. Atherosclerosis.
--- OUTSIDE RECORDS SUMMARY | 2025-04-23 11:53 | XMS_ITS | Encounter Summary ---
Author Organization [facility] Address [address] [place] [address] Care Team Providers Care Knife Operator Name Role Phone Radha Cowan MD Primary Care Provider [phone] Reason for Referral * Radiology Services (Routine) - Closed Specialty Diagnoses / Procedures Referred By Contac t Referred To Contact Radiology Diagnoses Lower extremity pain, right Procedures US VENOUS DOPPLER LEG RIGHT Raad Bhatt FNP [address] [place] [address] Phone: tel: fax: [facility] [address] [place] [address] Phone: tel: fax: Referral ID Status Reason Start Date Expiration Date V isits Requested Visits Authorized [id number] Closed [facility] CTS to Schedule (SGF) 06/17/2018 07/18/2019 1 1 Encounter Details Date Type Department Care Team (Latest Contact Info) Description 06/17/2018 Ancillary Orders [facility] Centralized Scheduling [address] [place] [address] Raad Bhatt FNP [address] [place] [address] Lower extremity pain, right Social History Tobacco Use Types Packs/Day Years Used Date Smoking Tobacco: Every Day Cigarettes 1 20 Smokeless Tobacco: Never Alcohol Use Standard Drinks/Week Comments Yes 0 (1 standard drink = 0.6 oz pur e alcohol) occasional Comments No Sex and Gender Information Value Date Recorded Sex Assigned at Not on file 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 Radiology Services - Noninvasive Vascular [address] [address] Noninvasive Vascular Lab Venous Exam Unilateral Lower Extremity Duplex Patient: Marli Eli Study ID: US VENOUS DOPPLE Gender: F : 1955 Age: 63 Room: Height: Weight: BSA: Pt status: Outpatient Study Date: 06/17/2018 Study Time: 02:07:05 PM BSA: Ordering: Raad Bhatt Interpreting:Christo Hanson MD, RPVI Nuclear Plant Technical Advisor: Henok Bailey Summary Impression: No evidence of deep vein thrombosis involving the right common femoral vein, right femoral vein, and right popliteal vein 1. Procedure narrative: A vascular evaluation was performed. Image quality was good. Exam quality was fair. The study was technically limited due to limited visualization below knee. Study data: Right lower extremity venous ultrasound evaluation. Doppler flow study including spectral analysis, color and enrique scale imaging. Ethnicity: Ethnicity: white. Location: Vascular laboratory. Patient status: Outpatient. Study status: Routine. Procedure: A vascular evaluation was performed. Image quality was good. Exam quality was fair. The study was technically limited due to limited visualization below knee. Prepared and Electronically Authenticated Christo Hanson MD, RPVI Confirmed 06/20/2018 22:03 Procedure Note Christo Hanson MD - 06/20/2018 [facility] Radiology Services - Noninvasive Vascular [address] [address] Noninvasive Vascular Lab Venous Exam Unilateral Lower Extremity Duplex Patient: Marli Eli Study ID: US VENOUS DOPPLE Gender: F : 1955 Age: 63 Room: Height: Weight: BSA: Pt status: Outpatient Study Date: 06/17/2018 Study Time: 02:07:05 PM BSA: Ordering: Raad Bhatt Interpreting:Christo Hanson MD, RPVI [employer] Plant Technical Advisor: Henok Bailey Summary Impression: No evidence of deep vein thrombosis involving the right common femoral vein, right femoral vein, and right popliteal vein 1. Procedure narrative: A vascular evaluation was performed. Image quality was good. Exam quality was fair. The study was technically limited due to limited visualization below knee. Study data: Right lower extremity venous ultrasound evaluation. Doppler flow study including spectral analysis, color and enrique scale imaging. Ethnicity: Ethnicity: white. Location: Vascular laboratory. Patient status: Outpatient. Study status: Routine. Procedure: A vascular evaluation was performed. Image quality was good. Exam quality was fair. The study was technically limited due to limited visualization below knee. 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
--- OUTSIDE RECORDS SUMMARY | 2025-04-23 11:53 | XMS_ITS | Encounter Summary ---
Author Organization [facility] Address [address] [place] [address] Care Team Providers Care Wharf Labourer Name Role Phone Radha Cowan MD Primary Care Provider Encounter Details Date Type Department Care Team (Latest Contact Info) Description 06/21/2018 Ancillary Orders [facility] Admitting [address] [place] [address] Raad Bhatt, PRESS LOADER [address] [place] [id number] Osteoarthritis of both knees, unspecified osteoarthritis type Social History Tobacco Use Types Packs/Day Years Used Date Smoking Tobacco: Every Day Cigarettes 1 20 Smokeless Tobacco: Never Alcohol Use Standard Drinks/Week Comments Yes 0 (1 standard drink = 0.6 oz pur e alcohol) occasional Comments No Sex and Gender Information Value Date Recorded Sex Assigned at Not on file 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 Exam: XR KNEE 3 VW BILAT Date/Time of Exam: 06/21/2018 3:52 PM Reason For Exam: See Diagnosis. Diagnosis: Osteoarthritis of both knees, unspecified osteoarthritis type. Findings: The left knee shows apparent mild joint space narrowing medially as does the right knee. Mild hypertrophic changes are present both knees. The soft tissues appear normal. The patella are unremarkable. IMPRESSION: Mild bony arthritic changes of the medial tibial femoral compartments bilaterally. Narrative Procedure Note Augusto Perkins MD - 06/22/2018 IMPRESSION: Please see below. Exam: XR KNEE 3 VW BILAT Date/Time of Exam: 06/21/2018 3:52 PM Reason For Exam: See Diagnosis. Diagnosis: Osteoarthritis of both knees, unspecified osteoarthritis type. Findings: The left knee shows apparent mild joint space narrowing medially as does the right knee. Mild hypertrophic changes are present both knees. The soft tissues appear normal. The patella are unremarkable. IMPRESSION: Mild bony arthritic changes of the medial tibial femoral compartments bilaterally. Raad Bhatt [employer] [facility] ORDERABL ES Final Result documented in this encounter Visit Diagnoses Diagnosis Osteoarthritis of both knees, unspecified osteoarthritis type Osteoarthritis of both knees, unspecified osteoarthritis type documented in this encounter Additional Health Concerns Infection Onset Date Last Indicated Resolved Time R/O COVID-19 05/16/2020 05/16/2020 05/18/2020 12:3 1 AM CDT R/O COVID-19 07/25/2020 07/25/2020 07/27/2020 5:01 AM [employer] R/O COVID-19 09/30/2020 09/30/2020 09/30/2020 7:23 PM [employer] documented as of this encounter Care Teams Wharf Labourer Relationship Specialty Start Date End Date Radha Cowan MD [address] [address] PCP - General Family Practice 10/24/20 documented as of this encounter
--- OUTSIDE RECORDS SUMMARY | 2025-04-23 11:53 | XMS_ITS | Clinical Summary ---
Author Organization [facility] Address [address] [place] [address] Care Team Providers Care Manpower Development Manager Name Role Phone Unavailable Primary Care Provider Unavailabl e Allergies Active Allergy Reactions Criticality Noted Date Comments Codeine Dizziness Low 12/14/2010 Melatonin Nausea and Vomiting Low 09/20/2024 Medications lancets 30 gauge USE 1 LANCET TO CHECK GLUCOSE TWICE DAILY 100 Each 1 11/06/19 21 Active SUMAtriptan (IMITREX) 25 mg tablet TAKE 2 TABLETS BY MOUTH EVERY 2 HOURS NEEDED FOR MIGRAINE. MAY REPEAT IN 2 HOURS; MAXIMUM DOSE OF 200 MG IN 24 HOURS. 30 Tablet 3 10/07/19 21 Active pantoprazole (PROTONIX) 20 mg Tablet, Delayed Release (E.C.) Take 1 tablet by mouth once daily 90 Tablet 0 10/28/19 21 Active Insulin [place], Disposable, 31 gauge x 5/16 Needle 100 Each by [facility] [place]Non-Drug; Combo Route) route. 04/09/20 20 Active nebulizer Length of need 99 monthsNebulizer with compressor, Kit: Permanent Nebulizer Kit, 1 per 6 months, filters , areosol mask: No. Name of Medication: DuoNeb 1 Each 0 10/28/[address] VPAP-S of 20/14cwp, Timin=1.3s, Timax=2s, trigger=low, cycle=high and 8L oxygen supplement, with heated humidifer Length of Need: 99 mo Per patient comfort with headgear / 6 mo, mask only / 3 mo,as needed cushions per mo , Tubing heated 1 every 3 mo, water chamber 1 per 6 months, chin strap 1 per 6 months, filters disposable 2 per month, filters reusable 1 per 6 months. 1 Each 0 01/18/20 20 Active pravastatin (PRAVACHOL) 20 mg tabletIndication s:Type 2 diabetes mellitus without complication, without long-term current use of insulin ([facility]) Take 1 Tablet (20 mg) by mouth daily. 90 Tablet 1 08/22/20 20 Active buPROPion HCL (WELLBUTRIN SR) 150 mg Sustained Release 12 hour tabletIndication s:Type 2 diabetes mellitus with hyperglycemia, without long-term current use of insulin ([facility]),Chroni c obstructive pulmonary disease, unspecified COPD type ([facility]),Benign hypertension Take 1 Tablet (150 mg) by mouth daily. 90 Tablet 3 12/11/19 21 Active loratadine (CLARITIN) 10 mg tabletIndication s:Postnasal drip Take 1 Tablet (10 mg) by mouth daily. 30 Tablet 1 01/02/20 21 Active metoprolol tartrate (LOPRESSOR) 25 mg tablet Take 1 tablet by mouth once daily 90 Tablet 0 12/04/19 21 Active mirtazapine (REMERON) 30 mg tablet TAKE 1 TABLET BY MOUTH ONCE DAILY AT BEDTIME 90 Tablet 0 12/04/19 21 Active ipratropium-albu teroL (DUONEB) 0.5 mg-3 mg(2.5 mg base)/3 mL Solution for Nebulization Take 3 mL by inhalation every 6 hours as needed for Shortness of Breath. 125 Each 1 12/18/19 21 Active oxygen home deliveryIndicati ons:Respiratory failure with hypoxia, unspecified chronicity ([facility]) Home Oxygen Concentrator yes at 3 L/M Rest, 5 L/M Activity, 3 L/M Sleep, Delivery Device: Nasal CannulaPortability : yes, 3 L/M Rest, 5 L/M Activity, May provide device best for patient needs(E system,home fill, conserving device)Length of Need: 99 months 1 Each 0 12/20/19 21 Active lisinopriL (PRINIVIL) 10 mg tablet Take 1 Tablet (10 mg) by mouth daily at bedtime. 90 Tablet 2 02/19/20 21 Active metFORMIN (GLUCOPHAGE) 1,000 mg tablet TAKE 1 TABLET BY MOUTH TWICE DAILY WITH MEALS 180 Tablet 03/26/20 21 Active ARIPiprazole (ABILIFY) 10 mg tablet Take 1 tablet by mouth once daily 90 Tablet 1 04/02/20 21 Active furosemide (LASIX) 20 mg tablet TAKE 1 TABLET BY MOUTH ONCE DAILY WITH 40MG TABLET 90 Tablet 1 04/03/20 21 Active Euthyrox 25 mcg tabletIndication s:Hypothyroidism , unspecified type TAKE 1 TABLET BY MOUTH ONCE DAILY EARLY IN THE MORNING 90 Tablet 1 04/03/20 21 Active OneTouch Ultra Test Strip USE 1 STRIP TO CHECK GLUCOSE TWICE DAILY 100 Each 04/21/20 21 Active furosemide (LASIX) 40 mg tablet Take 1 tablet by mouth once daily 90 Tablet 04/21/20 21 Active potassium chloride (KLOR-CON) 20 mEq Extended Release tablet TAKE 1 BY MOUTH ONCE DAILY 90 Tablet 04/21/20 21 Active aspirin (ECOTRIN EC) 81 mg Tablet, Delayed Release (E.C.) Take 81 mg by mouth daily. Active pregabalin (LYRICA) 50 mg CapsuleIndicatio ns:Leg cramps,Other diabetic neurological complication associated with type 2 diabetes mellitus (CMS/HCC) TAKE 1 CAPSULE BY MOUTH EVERY 8 HOURS 90 Capsule 2 05/16/20 21 Active Blood-Glucose Meter Kit Use daily to assess glucose #300 lancets #300 alcohol swab #300 strips 1 Kit 06/02/20 21 Active dulaglutide (Trulicity) 4.5 mg/0.5 mL injection Inject 0.5 mL (4.5 mg) by subcutaneous injection every 7 days. 1 Each 5 06/14/20 21 Active rimegepant (Nurtec ODT) 75 mg Tablet, Rapid Dissolve Take 75 mg by mouth every 8 hours as needed for Other (See Comment) (Migraine headache). 11/12/19 22 Active prochlorperazine maleate (COMPAZINE) 10 mg tablet Take 10 mg by mouth every 6 hours as needed for Nausea. 01/18/20 24 Active losartan (COZAAR) 100 mg tablet Take 100 mg by mouth daily. 05/12/20 22 Active magnesium oxide (MAG-OX) 400 mg (241.3 mg magnesium) tablet Take 400 mg by mouth daily. 06/09/20 22 Active hydrOXYzine HCL (ATARAX) 25 mg tablet Take 25 mg by mouth daily at bedtime. PRN daily at bedtime for anxiety 12/11/19 23 Active doxepin (SINEquan) 25 mg capsule Take 25 mg by mouth daily. 01/18/20 24 Active bumetanide (BUMEX) 1 mg tablet Take 1 mg by mouth daily. 12/31/19 23 Active budesonide (PULMICORT RESPULE) 0.25 mg/2 mL Suspension for Nebulization Take 0.25 mg by inhalation see administration instructions. 07/27/20 Active brexpiprazole (Rexulti) 1 mg Tablet Take 1 mg by mouth daily. 06/17/20 Active atorvastatin (LIPITOR) 10 mg tablet Take 10 mg by mouth daily at bedtime. 11/12/19 22 Active arformoteroL (BROVANA) 15 mcg/2 mL Solution for Nebulization Take 15 mcg by inhalation see administration instructions. 07/27/20 Active insulin lispro (HumaLOG KwikPen Insulin) 100 unit/mL pen syringe Inject by subcutaneous injection 4 times daily with meals and at bedtime. Per Scale: 200-249 4 units 250-299 6 units 300-349 8 units 350 or above 10 units 01/18/20 24 Active ubrogepant (UBRELVY) 50 mg tablet Take 50 mg by mouth see administration instructions. Active docusate sodium (COLACE) 100 mg capsule Take 200 mg by mouth daily. Active cholecalciferol, Vitamin D3, 125 mcg (5,000 unit) Capsule Take 5,000 Units by mouth daily. Active amLODIPine (NORVASC) 5 mg tablet Take 5 mg by mouth daily. 01/25/20 24 Active venlafaxine (EFFEXOR XR) 75 mg Extended Release 24 hour capsule Take 75 mg by mouth daily with breakfast. 03/29/20 24 025 Active Problems Problem Noted Date Diagnosed Date Morbid obesity with body mass index of 40.0-49.9 07/30/2020 CHF, acute on chronic 10/24/2019 Increased lactic acid level 10/24/2019 Gastroesophageal reflux disease 08/16/2019 Type 2 diabetes mellitus wit hout complication, without long-term current use of insulin 08/16/2019 Benign essential HTN 08/16/2019 COPD with exacerbation 07/18/2015 Resolved Problems Problem Noted Date Diagnosed Date Resolved Date Acute on chronic respiratory failure 07/18/2015 10/07/2020 Cigarette dependence 05/31/2015 021 Acute on chronic respiratory failure with hypoxia 10/07/2020 Encounters Date Type Department Care Team Description 04/17/2025 External Device Data [facility]STRACTION Provider, Abstract 03/21/2025 External Device Data [facility]STRACTION Provider, Abstract 03/20/2025 External Device Data [facility]CTION Provider, Abstract 02/20/2025 External Device Data [facility] Provider, Abstract 01/24/2025 External Device Data [facility] Provider, Abstract 01/23/2025 External Device Data [facility]STRACTION Provider, Abstract from Last 3 Months Immunizations Immunization Administration Dates Next Due (PNEUMOVAX 23)(50 YRS UP) PN EUMOCOCCAL POLYSACCHARIDE (PPV23) 0.5 ML, IM 06/26/1999 (SPIKEVAX) (12 YRS UP PRIMAR Y SERIES) COVID-19 VACCINE - MRNA-1273(PF) 100 MCG/0.5 ML IM SUSP 12/05/2020 INFLUENZA VACCINE QUADRIVALE NT 6 MOS UP PF IM 06/24/2020 Influenza A (H1N1) Vaccine I M Patient Supplied 07/16/2015 Influenza Seasonal Unspecifi ed Formulation IM 05/17/2019,08/11/2002,07/05/2001 Family History Medical History Relation Name Comments Thyroid Cancer Brother 1 Lung Cancer Father Stomach Cancer Maternal Grandmother Stomach Cancer Paternal Grandmother Ovarian Cancer Sister 1 Breast Cancer Neg Hx Relation Name Status Comments Brother 1 Alive Brother 2 Alive Brother 3 (Age 17) DROWNING Brother 4 Alive Daughter 1 Alive Daughter 2 Alive Father Maternal Grandmother Mother Alive Paternal Grandmother Sister 1 Sister 2 Alive Social History Tobacco Use Types Packs/Day Years Used Date Smoking Tobacco: Former Cigarettes Q uit: 01/04/2021 Smokeless Tobacco: Never Alcohol Use Standard Drinks/Week Comments No 0 (1 standard drink = 0.6 oz pur e alcohol) Comments No Sex and Gender Information Value Date Recorded Sex Assigned at Not on file Legal Sex Female 1:48 PM HOME COMPANION Gender Identity Not on file Sexual Orientation Not on file Last Filed Vital Signs Vital Sign Reading Time Taken Comments Blood Pressure 121/79 12/20/2024 11:35 AM CDT Pulse 101 12/20/2024 11:35 AM CDT Temperature 36.2 C (97.2 F) 12/20/2024 11:35 AM CDT Respiratory Rate 16 12/20/2024 11:35 AM CDT Oxygen Saturation 94% 12/20/2024 11:35 AM CDT Inhaled Oxygen Concentration - - Weight 137.9 kg (304 lb) 12/20/2024 8:53 AM CDT Height 160 cm (5' 3 ) 12/20/2024 8:53 AM CDT Body Mass Index 53.85 12/20/2024 8:53 AM CDT Plan of Treatment Health Maintenance Due Date Last Done Comments FIT-DNA Q 3 years 02/20/2001 FIT/FOBT Q 1 year 02/20/2001 Flex Sig/CT Colonography Q 5 years 02/20/2001 RSV VACCINE (60+ or ) (1 - Risk 60-74 years 1-dose series) 2016 DIABETES ANNUAL RETINAL EXAM 02/23/2018 02/23/2017 DIABETES MICROALBUMIN ANNUAL SCREEN 12/18/2020 12/19/2019, 09/01/2019 OSTEOPOROSIS SCREENING 02/20/2021 BREAST CANCER SCREENING 10/30/2021 10/30/19 21, 10/30/2020, 08/25/2019, Additional history exists DIABETES ANNUAL FOOT EXAM 01/08/2022 01/08/2021 LDL CHOLESTEROL ANNUAL 05/06/2022 , 01/08/2021, 06/27/2020, Additional history exists COVID-19 Vaccine (2023-2 5 season) 2024 08/13/2022, 08/19/2021, 12/05/2020, Additional history exists DIABETES HBA1C Q 6 MONTHS 09/23/20242023, 05/06/2021, 01/08/2021, Additional history exists INFLUENZA VACCINE (#1) 2025 3, 06/08/2023, 06/06/2023, Additional history exists COLORECTAL SCREENING 01/11/2029 01/11/2019, 01/12/20 Colorectal Cancer Screening 01/11/2029 DTAP/TDAP/TD VACCINES (3 - T d or Tdap) 05/08/2031 05/08/2021, 08/25/2012 ZOSTER VACCINE Completed 08/10/2022, 09/2019, 07/26/2018, Additional history exists PNEUMOCOCCAL VACCINE 50+ YEARS Completed 0 04/12/2023, 09/06/2019, 05/31/2018, Additional history exists Medical Devices Implanted Type Area Rn Postpartum Device Identifier Shelf Expiration Date Model / Serial / Lot Stent Istent Trbclr Micro-Bypss Lt [id number] - [id number] Implanted:Qty: 1 on 09/20/2024 by Lwo Marx MD at [facility] Eye Left: Eye [employer] 03/05/2026 [id number] / [id number] / Stent Istent Trbclr Micro-Bypss Rt [id number] - [id number] Implanted:Qty: 1 on 12/20/2024 by Low Marx MD at [facility] Eye Right: Eye [employer] 04/05/2027 [id number] / [id number] / [id number] Lens Iol Tecnis Eyhance 19.5 [id number] - [id number] Implanted:Qty: 1 on 09/20/2024 by Lwo Marx MD at [facility] Lens Left: Eye [employer] 02/06/2027 [id number] / [id number] / Lens Iol Tecnis Eyhance 19.0 [id number] - [id number] Implanted:Qty: 1 on 12/20/2024 by Low Marx MD at [facility] Lens Right: Eye [employer] 04/25/2026 [id number] / [id number] / Procedures Procedure Name Priority Date/Time Associated Diagnosis Comments LIPID PANEL Routine 05/06/2021 9:36 AM CDT Type 2 diabetes mellitus without complication, without long-term current use of insulin (CMS/HCC) HEMOGLOBIN A1C Routine 05/06/2021 9:36 AM CDT Type 2 diabetes mellitus without complication, without long-term current use of insulin (CMS/HCC) MAMMO SCREEN BILAT W OR WO CAD Routine 10/30/2020 1:26 PM HOME COMPANION Screening mammogram, encounter for MICROALBUMIN/CREATIN INE RATIO, RANDOM UR Routine 12/19/2019 9:05 AM CDT ENDOSCOPY, COLON, SCREENING Routine 01/11/2019 from Last 3 Months or Most Recently Relevant to Health Maintenance Results * (ABNORMAL) HEMOGLOBIN A1C (05/06/2021 9:36 AM CDT) [facility] [address] HEMOGLOBIN A1C 7.6(H) <5.7 % of total Hgb [facility] Comment: For someone without known diabetes, a hemoglobin A1c value of 6.5% or greater indicates that they may have diabetes and this should be confirmed with a follow-up test. For someone with known diabetes, a value <7% indicates that their diabetes is well controlled and a value greater than or equal to 7% indicates suboptimal control. A1c targets should be individualized based on duration of diabetes, age, comorbid conditions, and other considerations. Currently, no consensus exists regarding use of hemoglobin A1c for diagnosis of diabetes for children. Test Performed at: [facility] [address] [place] [address] Jean Carlos Yi D.O., MPH Blood 05/06/2021 9:36 AM CDT 05/07/2021 4:34 AM CDT Juancarlos DELGADO CHEMISTRY ORDERABLES Final Re sult [facility] [address] [place] [address] * (ABNORMAL) LIPID PANEL (05/06/2021 9:36 AM CDT) [facility] [address] CHOLESTEROL 193 <200 mg/dL [facility] HDL 44(L) > OR = 50 mg/dL [facility] TRIGLYCERIDE 369(H) <150 mg/dL [facility] Comment: If a non-fasting specimen was collected, consider repeat triglyceride testing on a fasting specimen if clinically indicated. Radhika et al. J. of Clin. Lipidol. 2015;9:129-169. LDL CALCULATED 100(H) mg/dL (calc) [facility] Comment: Reference range: <100 Desirable range <100 mg/dL for primary prevention; <70 mg/dL for patients with CHD or diabetic patients with > or = 2 CHD risk factors. LDL-C is now calculated using the Miky-Gomez calculation, which is a validated novel method providing better accuracy than the Friedewald equation in the estimation of LDL-C. Miky NERI et al. SABRINA. 2013;310(19): 9534-0683 (http://education.[employer]/faq/PDY895) CHOL/HDL RATIO 4.4 <5.0 (calc) [facility] TOTAL NON-HDL CHOL(LDL+VLDL) 149(H) <130 mg/dL (calc) [facility] Comment: For patients with diabetes plus 1 major ASCVD risk factor, treating to a non-HDL-C goal of <100 mg/dL (LDL-C of <70 mg/dL) is considered a therapeutic option. Test Performed at: [facility] [address] [place] [address] Jean Carlos Yi D.O., MPH Blood 05/06/2021 9:36 AM CDT 05/07/2021 4:34 AM CDT Juancarlos DELGADO CHEMISTRY ORDERABLES Final Re sult [facility] [address] [place] [address] * MAMMO SCREEN BILAT W OR WO CAD (10/30/2020 1:26 PM HOME COMPANION) Anatomical Region Laterality Modality Breast Bilateral Other Impressions 11/03/2020 11:28 AM HOME COMPANION : Focal asymmetry in the upper outer quadrant of the left breast for which additional imaging evaluation is recommended. BI-RADS ASSESSMENT: 0 - Incomplete Recommendation: Additional Imaging [id number] Narrative 11/03/2020 11:28 AM HOME COMPANION EXAM: MAMMO SCREEN BILAT W OR WO CAD INDICATION: Screening COMPARISON: Mammogram 08/23/2019, 12/12/2015, 12/09/2010, 05/08/2009, 12/12/2007 TECHNIQUE: MLO and CC digital mammographic images were acquired. This digital mammogram was also analyzed by the Computer Aided Detection System (CAD). FINDINGS: There are scattered areas of fibroglandular density. There is a focal asymmetry in the upper outer quadrant of the left breast. In the right breast, there are no suspicious masses, calcifications, or architectural distortions. Procedure Note Catherine Ram, DO - 01/26/2021 EXAM: MAMMO SCREEN BILAT W OR WO CAD INDICATION: Screening COMPARISON: Mammogram 08/23/2019, 12/12/2015, 12/09/2010, 05/08/2009, 12/12/2007 TECHNIQUE: MLO and CC digital mammographic images were acquired. This digital mammogram was also analyzed by the Computer Aided Detection System (CAD). FINDINGS: There are scattered areas of fibroglandular density. There is a focal asymmetry in the upper outer quadrant of the left breast. In the right breast, there are no suspicious masses, calcifications, or architectural distortions. IMPRESSION : Focal asymmetry in the upper outer quadrant of the left breast for which additional imaging evaluation is recommended. BI-RADS ASSESSMENT: 0 - Incomplete Recommendation: Additional Imaging [id number] Juancarlos DELGADO MAMMO ORDERABLES Final Result * MICROALBUMIN/CREATININE RATIO, RANDOM UR (12/19/2019 9:05 AM CDT) MICROALBUMIN, URINE 1.2 No Reference Range mg/dL 12/19/2019 8:46 PM CDT [facility] CREATININE, URINE 66.3 29.0 - 226.0 mg/dL 12/19/2019 8:46 PM CDT [facility] Comment:Reference Range vari es with fluid intake and diet. MICROALBUMIN/C REAT RATIO, UR 18.1 <25.0 mg/g 12/19/2019 8:46 PM CDT [facility] Urine URINE SPECIMEN OBTAINED BY CLEAN CATCH PROCEDURE / Unknown Collection / Unknown 12/19/2019 9:05 AM CDT 12/19/2019 7:43 PM CDT Narrative [facility] - 12/19/2019 8:46 PM CDT Condition Microalbumin/Creat ratio Normal Males <17 Normal Females <25 Microalbuminuria Males 17-299 Microalbuminuria Females 25-299 Overt proteinuria >=300 [place] NP URINE ORDERABLES Final Result [facility]# [id number] [address] [place] [address] * (ABNORMAL) ENDOSCOPY, COLON, SCREENING (01/11/2019) us Abstract Provider GI PROCEDURE ORDERABLES Final Result from Last 3 Months or Most Recently Relevant to Health Maintenance Insurance [place] Member Subscriber Plan / Payer (Ef fective 2021-Present) Name:Marli Eli Relation to Subscriber:Self Name:Marli Eli Payer ID:Not on file Group ID:Not on file Type:Medicaid Address: [address] MEDICARE HMO Advance Directives For more information, please contact: [phone] * Full Code (Latest Code Status on File) Date Activated Date Inactivated Comments 12/20/2024 9:49 AM 12/20/2024 1:54 PM * Full Code Date Activated Date Inactivated Comments 09/20/2024 11:42 AM 09/20/2024 3:30 PM
--- OUTSIDE RECORDS SUMMARY | 2025-04-23 11:53 | XMS_ITS | Encounter Summary ---
Author Organization [facility] Address [address] [place] [address] Care Team Providers Care Principal Java Developer Name Role Phone Unavailable Primary Care Provider Unavailabl e Encounter Details Date Type Department Care Team (Late st Contact Info) Description 04/17/2025 External Device Data [facility] Provider, Abstract NO ADDRESS ON FILE Social History Tobacco Use Types Packs/Day Years Used Date Smoking Tobacco: Former Cigarettes Q uit: 01/04/2021 Smokeless Tobacco: Never Alcohol Use Standard Drinks/Week Comments No 0 (1 standard drink = 0.6 oz pur e alcohol) Comments No Sex and Gender Information Value Date Recorded Sex Assigned at Not on file 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
--- OUTSIDE RECORDS SUMMARY | 2025-04-23 11:53 | XMS_ITS | Clinical Summary ---
Author Organization [facility] Address [facility] [place] [address] Care Team Providers Care Heel Coverer Name Role Phone Radha Cowan MD Primary Care Provider Allergies Active Allergy Reactions Criticality Noted Date Comments Codeine Dizziness Low 12/14/2010 Medications aspirin (ECOTRIN EC) 81 mg Tablet, Delayed Release (E.C.) Take 81 mg by mouth daily. Active nebulizer Length of need 99 months Nebulizer with compressor, Kit: Permanent Nebulizer Kit, 1 per 6 months, filters , areosol mask: No. Name of Medication: DuoNeb 1 Each [address] VPAP-S of 20/14cwp, Timin=1.3s, [...] 1 per 6 months. 1 Each 0 Active Insulin Concord, Disposable, (Lite Touch Insulin Pen Concord) 31 gauge x 5/16 Needle 100 Each by [facility].(Non-Drug; Combo Route) route. Active metFORMIN (GLUCOPHAGE) 1,000 mg tablet TAKE 1 TABLET BY MOUTH TWICE DAILY WITH MEALS 180 Tablet 0 Active ARIPiprazole (ABILIFY) 10 mg tablet Take 1 tablet by mouth once daily 90 Tablet 1 1 Active SUMAtriptan (IMITREX) 25 mg tablet TAKE 2 TABLETS BY MOUTH EVERY 2 HOURS NEEDED FOR MIGRAINE. MAY REPEAT IN 2 HOURS; MAXIMUM DOSE OF 200 MG IN 24 HOURS. 30 Tablet 3 1 Active furosemide (Lasix) 20 mg tablet Take 1 Tablet (20 mg) by mouth daily. 90 Tablet 1 1 Active lancets (OneTouch Delica Lancets) 30 gauge USE 1 LANCET TO CHECK GLUCOSE TWICE DAILY 100 Each 1 1 Active OneTouch Ultra Blue Test Strip Strip USE 1 STRIP TO CHECK GLUCOSE TWICE DAILY 100 Each 2 1 Active buPROPion HCL (WELLBUTRIN SR) 150 mg Sustained Release 12 hour tabletIndication s:Type 2 diabetes mellitus with hyperglycemia, without long-term current use of insulin ([facility]),Chroni c obstructive pulmonary disease, unspecified COPD type ([facility]),Benign hypertension Take 1 Tablet (150 mg) by mouth daily. 90 Tablet 3 1 Active Euthyrox 25 mcg tabletIndication s:Hypothyroidism , unspecified type TAKE 1 TABLET BY MOUTH ONCE DAILY EARLY IN THE MORNING 90 Tablet 1 Active ipratropium-albu teroL (DUONEB) 0.5 mg-3 mg(2.5 mg base)/3 mL Solution for Nebulization Take 3 mL by inhalation every 6 hours as needed for Shortness of Breath. 125 Each 1 1 Active oxygen home deliveryIndicati ons:Respiratory failure with hypoxia, unspecified chronicity ([facility]) Home Oxygen Concentrator yes at 3 L/M Rest, 5 L/M Activity, 3 L/M Sleep, Delivery Device: Nasal Cannula Portability: yes, 3 L/M Rest, 5 L/M Activity, May provide device best for patient needs(E system,home fill, conserving device) Length of Need: 99 months 1 Each 1 Active loratadine (CLARITIN) 10 mg tabletIndication s:Postnasal drip Take 1 Tablet (10 mg) by mouth daily. 30 Tablet 1 1 Active potassium chloride (KLOR-CON) 20 mEq Extended Release tablet Take 1 tablet by mouth once daily 90 Tablet 1 Active furosemide (LASIX) 40 mg tablet Take 1 tablet by mouth once daily 90 Tablet 1 Active pregabalin (LYRICA) 50 mg CapsuleIndicatio ns:Leg cramps,Other diabetic neurological complication associated with type 2 diabetes mellitus (CMS/HCC) Take 1 Capsule (50 mg) by mouth every 8 hours. 90 Capsule 1 Active pantoprazole (PROTONIX) 20 mg Tablet, Delayed Release (E.C.) Take 1 tablet by mouth once daily 90 Tablet 3 1 Active pravastatin (PRAVACHOL) 20 mg tabletIndication s:Type 2 diabetes mellitus without complication, without long-term current use of insulin (CMS/HCC) Take 1 Tablet (20 mg) by mouth daily. 90 Tablet 1 1 Active dulaglutide (Trulicity) 1.5 mg/0.5 mL injection Inject 0.5 mL (1.5 mg) by subcutaneous injection every 7 days. DIABETES 1 Each 5 1 Active lisinopriL (PRINIVIL) 10 mg tablet Take 1 Tablet (10 mg) by mouth daily at bedtime. 90 Tablet 2 1 Active metoprolol tartrate (LOPRESSOR) 25 mg tablet Take 1 tablet by mouth once daily 90 Tablet 1 1 Active mirtazapine (REMERON) 30 mg tablet TAKE 1 TABLET BY MOUTH ONCE DAILY AT BEDTIME 90 Tablet 1 1 Active Active Problems Problem Noted Date Diagnosed Date Morbid obesity with body mass index of 40.0-49.9 07/30/2020 CHF, acute on chronic 10/24/2019 Increased lactic acid level 10/24/2019 Type 2 diabetes mellitus wit hout complication, without long-term current use of insulin 08/16/2019 Gastroesophageal reflux disease 08/16/2019 Benign essential HTN 08/16/2019 COPD with exacerbation 07/18/2015 Resolved Problems Problem Noted Date Diagnosed Date Resolved Date Acute on chronic respiratory failure 07/18/2015 10/07/2020 Cigarette dependence 05/31/2015 021 Acute on chronic respiratory failure with hypoxia 10/07/2020 Immunizations Immunization Administration Dates Next Due (PNEUMOVAX [...] History Relation Name Comments Thyroid Cancer Brother 3 Lung Cancer Father Stomach Cancer Maternal Grandmother Stomach Cancer Paternal Grandmother Ovarian Cancer Sister 2 Breast Cancer Neg Hx Relation Name Status Comments Brother 1 Alive Brother 2 Alive Brother 3 Alive Brother 4 (Age 17) DROWNING Daughter 1 Alive Daughter 2 Alive Father Maternal Grandmother Mother Alive Paternal Grandmother Sister 1 Alive Sister 2 Social History Tobacco Use Types Packs/Day Years Used Date Smoking Tobacco: Former Cigarettes 1 20 0 01/04/2001 - 01/04/2021 Smokeless Tobacco: Never Tobacco Cessation:Ready to Q uit: No; Counseling Given: Yes Alcohol Use Standard Drinks/Week Comments No 0 (1 standard drink = 0.6 oz pur e alcohol) Comments No Sex and Gender Information Value Date Recorded Sex Assigned at Not on file Legal Sex Female 3:33 AM FREIGHT CAR REPAIRER Gender Identity Not on file Sexual Orientation Not on file Occupation Industry Job Start Date Job End Date Not on file Not on file Not on file Not on file Last Filed Vital Signs Vital Sign Reading Time Taken Comments Blood Pressure 130/88 02/18/2021 11:15 AM CDT Pulse 64 02/18/2021 10:49 AM CDT Temperature 36.3 C (97.4 F) 02/18/2021 10:49 AM CDT Respiratory Rate 16 02/18/2021 10:49 AM CDT Oxygen Saturation 98% 02/18/2021 10:49 AM CDT Inhaled Oxygen Concentration - - Weight 133.8 kg (295 lb) 02/18/2021 10:49 AM CDT Height 160 cm (5' 3 ) 02/18/2021 10:49 AM CDT Body Mass Index 52.26 02/18/2021 10:49 AM CDT Plan of Treatment Health Maintenance Due Date Last Done Comments FIT/ DNA Q 3 YEARS (AUTO ORDER) 02/20/1974 FLEX SIG/CT COLONOGRAPHY Q 5 YEARS (AUTO ORDER) 02/20/1974 DTAP/TDAP/TD VACCINES (1 - Tdap) 02/20/1975 PNEUMOCOCCAL VACCINE 50+ YEA RS (2 of 2 - PCV) 06/26/2000 06/26/1999 FIT-DNA Q 3 years 02/20/2001 Flex Sig/CT Colonography Q 5 years 02/20/2001 FIT/FOBT Q 1 YEAR (AUTO ORDER) 02/16/2003 0 02/16/2002, 03/15/2000, 12/23/1998 FIT/FOBT Q 1 year 02/16/2003 02/16/2002, , 12/23/1998 RSV VACCINE (60+ or ) (1 - Risk 60-74 years 1-dose series) 2016 DIABETES ANNUAL RETINAL EXAM 02/23/2018 02/23/2017 DIABETES MICROALBUMIN ANNUAL SCREEN 12/18/2020 12/19/2019, 09/01/2019, 06/20/2003, Additional history exists OSTEOPOROSIS SCREENING 02/20/2021 DIABETES HBA1C Q 6 MONTHS 07/11/20212020, 12/23/2020, 06/27/2020, Additional history exists BREAST CANCER SCREENING 10/30/2021 10/30/19 21, 08/25/2019, 08/23/2019, Additional history exists DIABETES ANNUAL FOOT EXAM 01/08/2022 01/08/2021 LDL CHOLESTEROL ANNUAL 01/08/2022 1, 06/27/2020, 04/09/2020, Additional history exists COVID-19 Vaccine (2 - 2023-2 5 season) 2024 12/05/2020 [place] Preventative Visit/Annual Wellness Visit 09/06/2024 01/08/2021 INFLUENZA VACCINE (#1) 2025 0, 05/17/2019, 08/11/2002, Additional history exists COLORECTAL CANCER SCREENING (AUTO ORDER) 01/11/2029 01/11/2019, 01/11/2019 Colorectal Cancer Screening (AUTO ORDER) 01/11/2029 COLORECTAL SCREENING 02/13/2029 02/13/2019 (Previously completed), 01/11/2019, 01/11/2019 Colorectal Cancer Screening 02/13/2029 ZOSTER VACCINE Completed 08/31/2019, 05/24/2019 Procedures Procedure Name Priority Date/Time Associated Diagnosis Comments LDL CHOLESTEROL, DIRECT Routine 01/08/2021 11:00 AM CDT Hyperlipidemia, unspecified hyperlipidemia type HEMOGLOBIN A1C Routine 01/08/2021 11:00 AM CDT Type 2 diabetes mellitus without complication, without long-term current use of insulin ([facility]) MAMMO SCREEN BILAT W OR WO CAD Routine 10/30/2020 1:26 PM FREIGHT CAR REPAIRER Screening mammogram, encounter for MICROALBUMIN/CREATI NINE RATIO, RANDOM UR Routine 12/19/2019 9:05 AM CDT Type 2 diabetes mellitus with hyperglycemia, without long-term current use of insulin ([facility]) Chronic obstructive pulmonary disease, unspecified COPD type ([facility]) Benign hypertension from Last 3 Months or Most Recently Relevant to Health Maintenance Results * LDL CHOLESTEROL, DIRECT (01/08/2021 11:00 AM CDT) LDL CHOLESTEROL, DIRECT 93 <100 mg/dL 01/08/2021 9:13 PM CDT [facility] Blood Venipuncture / Unknown 01/08/2021 11:00 AM CDT 01/08/2021 7:53 PM CDT Narrative [facility] - 01/08/2021 9:13 PM CDT LDL CHOLESTEROL mg/dL LDL <70, OPTIMAL if have Atherosclerotic cardiovascular disease (ASCVD) or intermediate or higher (>7.5%) 10 year risk of ASCVD including most adults with diabetes. LDL <100, Optimal in adult patients with low (<7.5%) 10 year ASCVD risk LDL 100-160, Suboptimal LDL >160, High LDL >190, Very high Based on AHA/NCEP guidelines us Juancarlos DELGADO CHEMISTRY ORDERABLES Final Re sult [facility] CLIA# [id number] [facility] [place] [address] * (ABNORMAL) HEMOGLOBIN A1C (01/08/2021 11:00 AM CDT) HEMOGLOBIN A1C 7.5(H) See Comment % 01/08/2021 8:17 PM CDT [facility] EST. AVG GLUCOSE, A1C 169 mg/dL 01/08/2021 8:17 PM CDT [facility] Blood Venipuncture / Unknown 01/08/2021 11:00 AM CDT 01/08/2021 7:53 PM CDT Narrative [facility] - 01/08/2021 8:17 PM CDT HGB A1C INTERPRETATION NORMAL: <5.7% PRE-DIABETES: 5.7 - 6.4% DIABETES: 6.5% OR GREATER Falsely low A1C measurements can occur when: 1. Anemia and/or hemolytic anemia is present. 2. Hemoglobin variants present. 3. Renal failure. 4. Transfusion of blood product in the last 120 days. We recommend ordering a fructosamine test([id number]) to more accurately assess glycemic status if any of the above conditions are present. Juancarlos DELGADO CHEMISTRY ORDERABLES Final Re sult [facility] CLIA# [id number] [address] [place] [address] * MAMMO SCREEN BILAT W OR WO CAD (10/30/2020 1:26 PM FREIGHT CAR REPAIRER) Anatomical Region Laterality Modality Breast Bilateral Mammography 10/30/2020 1:29 PM FREIGHT CAR REPAIRER Impressions 11/03/2020 11:28 AM FREIGHT CAR REPAIRER : Focal asymmetry in the upper outer quadrant of the left breast for which additional imaging evaluation is recommended. BI-RADS ASSESSMENT: 0 - Incomplete Recommendation: Additional Imaging [id number] Narrative 11/03/2020 11:28 AM FREIGHT CAR REPAIRER EXAM: MAMMO SCREEN BILAT W OR WO [...] no suspicious masses, calcifications, or architectural distortions. Juancarlos DELGADO MAMMO ORDERABLES Final Result * MICROALBUMIN/CREATININE RATIO, RANDOM UR (12/19/2019 9:05 AM CDT) MICROALBUMIN, URINE 1.2 No Reference Range mg/dL 12/19/2019 8:46 PM CDT [facility] CREATININE, URINE 66.3 29.0 - 226.0 mg/dL 12/19/2019 8:46 PM CDT [facility] Comment:Reference Range vari es with fluid intake and diet. MICROALBUMIN/C REAT RATIO, UR 18.1 <25.0 mg/g 12/19/2019 8:46 PM CDT [facility] Urine URINE SPECIMEN OBTAINED BY CLEAN CATCH PROCEDURE / Unknown Collection / Unknown 12/19/2019 9:05 AM CDT 12/19/2019 7:43 PM CDT Narrative [facility] - 12/19/2019 8:46 PM CDT Condition Microalbumin/Creat ratio Normal Males <17 Normal Females <25 Microalbuminuria Males 17-299 Microalbuminuria Females 25-299 Overt proteinuria >=300 [place] NP URINE ORDERABLES Final Result [facility] CLIA# [id number] [address] [place] [id number] from Last 3 Months or Most Recently Relevant to Health Maintenance Insurance BLUE CROSS AND BLUE [employer]IELD [place]ICAID [place] Advance Directives For more information, please contact: [phone] Documents on File Type Date Recorded Patient Supervisory Air Intercept Controller Expl anation Advance Directive POA 01/24/2012 7:28 AM Advance Directive Living Will 01/24/2012 Advance Directive POA 01/22/2012 10:32 AM Health Care Directive * Full Code (Latest Code Status on File) Date Activated Date Inactivated Comments 07/18/2015 11:12 PM 07/24/2015 2:39 PM Care Teams Heel Coverer Relationship Specialty Start Date End Date Radha Cowan MD [address] [facility] [address] [place] [phone] PCP - General Family Practice 10/24/20
--- OUTSIDE RECORDS SUMMARY | 2025-04-23 11:53 | XMS_ITS | Encounter Summary ---
Author Organization [facility] Address [address] [place] [address] Care Team Providers Care School Resource Officer Name Role Phone Radha Cowan MD Primary Care Provider Encounter Details Date Type Department Care Team (Latest Contact Info) Description 06/21/2018 Ancillary Orders [facility] Admitting [address] [place] [address] Raad Bhatt, BRANCH RETAIL EXECUTIVE [address] [place] [phone] Osteoarthritis of both knees, unspecified osteoarthritis type Social History Tobacco Use Types Packs/Day Years Used Date Smoking Tobacco: Every Day Cigarettes 1 20 Smokeless Tobacco: Never Alcohol Use Standard Drinks/Week Comments Yes 0 (1 standard drink = 0.6 oz pur e alcohol) occasional Comments No Sex and Gender Information Value Date Recorded Sex Assigned at Not on file Legal Sex Female 3:33 AM FOREST TECHNICIAN Gender Identity Not on file Sexual Orientation Not on file Occupation Industry Job Start Date Job End Date Not on file Not on file Not on file Not on file documented as of this encounter Plan of Treatment Not on file documented as of this encounter Visit Diagnoses Diagnosis Osteoarthritis of both knees, unspecified osteoarthritis type documented in this encounter Additional Health Concerns Infection Onset Date Last Indicated Resolved Time R/O COVID-19 05/16/2020 05/16/2020 05/18/2020 12:3 1 AM CDT R/O COVID-19 07/25/2020 07/25/2020 07/27/2020 5:01 AM FOREST TECHNICIAN R/O COVID-19 09/30/2020 09/30/2020 09/30/2020 7:23 PM FOREST TECHNICIAN documented as of this encounter Care Teams School Resource Officer Relationship Specialty Start Date End Date Radha Cowan MD [address] [phone] PCP - General Family Practice 10/24/20 documented as of this encounter
--- OUTSIDE RECORDS SUMMARY | 2025-04-23 11:53 | XMS_ITS | Encounter Summary ---
Author Organization [facility] Address [address] [place] [address] Care Team Providers Care Recruitment Consultant Name Role Phone Radha Cowan MD Primary Care Provider [phone] Encounter Details Date Type Department Care Team (Latest Contact Info) Description 10/15/2017 Ancillary Orders [facility] Admitting [address] [place] [address] Raad Bhatt, CHANNEL SUPERVISOR [address] [place] [address] Osteoarthritis of both knees, unspecified osteoarthritis type Social History Tobacco Use Types Packs/Day Years Used Date Smoking Tobacco: Every Day Cigarettes 1 20 Smokeless Tobacco: Never Alcohol Use Standard Drinks/Week Comments Yes 0 (1 standard drink = 0.6 oz pur e alcohol) occasional Comments No Sex and Gender Information Value Date Recorded Sex Assigned at Not on file Legal Sex Female 3:33 AM TRAFFIC POLICE OFFICER Gender Identity Not on file Sexual Orientation Not on file Occupation Industry Job Start Date Job End Date Not on file Not on file Not on file Not on file documented as of this encounter Plan of Treatment Not on file documented as of this encounter Results * XR KNEE 3 VW BILAT (10/15/2017 11:56 AM TRAFFIC POLICE OFFICER) Anatomical Region Laterality Modality Lower Extremity Computed Radiogr aphy 10/15/2017 11:5 6 AM TRAFFIC POLICE OFFICER Impressions 10/15/2017 9:02 PM TRAFFIC POLICE OFFICER IMPRESSION: Mild degenerative changes. [id number] Narrative 10/15/2017 9:02 PM TRAFFIC POLICE OFFICER Exam: XR KNEE 3 VW BILAT Date/Time of Exam: 10/15/2017 11:56 AM Reason For Exam: Osteoarthritis of both knees, unspecified osteoarthritis type. Comparison: None. Findings: Three views of each knee are submitted. There is no evidence of an acute fracture or dislocation. There is a mild degree of marginal osteophyte formation without appreciable joint space narrowing compatible with mild degenerative changes. There is no apparent joint effusion. There is extensor mechanism enthesopathy. The bone density and soft tissues appear appropriate. Procedure Note Judah Schilling, DO - 10/15/2017 Exam: XR KNEE 3 VW BILAT Date/Time of Exam: 10/15/2017 11:56 AM Reason For Exam: Osteoarthritis of both knees, unspecified osteoarthritis type. Comparison: None. Findings: Three views of each knee are submitted. There is no evidence of an acute fracture or dislocation. There is a mild degree of marginal osteophyte formation without appreciable joint space narrowing compatible with mild degenerative changes. There is no apparent joint effusion. There is extensor mechanism enthesopathy. The bone density and soft tissues appear appropriate. IMPRESSION: Mild degenerative changes. [id number] Raad Bhatt CHANNEL SUPERVISOR DIAGNOSTIC IMAGING ORDERABL ES Final Result documented in this encounter Visit Diagnoses Diagnosis Osteoarthritis of both knees, unspecified osteoarthritis type Osteoarthritis of both knees, unspecified osteoarthritis type documented in this encounter Additional Health Concerns Infection Onset Date Last Indicated Resolved Time R/O COVID-19 05/16/2020 05/16/2020 05/18/2020 12:3 1 AM CDT R/O COVID-19 07/25/2020 07/25/2020 07/27/2020 5:01 AM TRAFFIC POLICE OFFICER R/O COVID-19 09/30/2020 09/30/2020 09/30/2020 7:23 PM TRAFFIC POLICE OFFICER documented as of this encounter Care Teams Recruitment Consultant Relationship Specialty Start Date End Date Radha Cowan MD [address] [phone] PCP - General Family Practice 10/24/20 documented as of this encounter
--- OUTSIDE RECORDS SUMMARY | 2025-04-23 11:54 | XMS_ITS | Encounter Summary ---
Author Organization [facility] Address [address] [place] [address] Care Team Providers Care Port Steward Name Role Phone Radha Cowan MD Primary Care Provider Encounter Details Date Type Department Care Team (Latest Contact Info) Description 09/01/2001 Outpatient Historical [facility] Augusto Nicole Jr., MD [address] [place] [phone] ABSENCE OF MENSTRUATION (Primary Dx); HYPERLIPIDEMIA NEC/NOS; ALLERGIC RHINITIS NOS Social History Tobacco Use Types Packs/Day Years Used Date Smoking Tobacco: Never Assessed Comments Unknown Sex and Gender Information Value Date Recorded Sex Assigned at Not on file Legal Sex Female 3:33 AM BANQUET PILOT Gender Identity Not on file Sexual Orientation Not on file documented as of this encounter Plan of Treatment Not on file documented as of this encounter Visit Diagnoses Diagnosis Absence of menstruation- Primary Other and unspecified hyperlipidemia Allergic rhinitis, cause unspecified documented in this encounter Additional Health Concerns Infection Onset Date Last Indicated Resolved Time R/O COVID-19 05/16/2020 05/16/2020 05/18/2020 12:3 1 AM CDT R/O COVID-19 07/25/2020 07/25/2020 07/27/2020 5:01 AM BANQUET PILOT R/O COVID-19 09/30/2020 09/30/2020 09/30/2020 7:23 PM BANQUET PILOT documented as of this encounter Care Teams Port Steward Relationship Specialty Start Date End Date Radha Cowan MD [address] [phone] PCP - General Family Practice 10/24/20 documented as of this encounter
--- OUTSIDE RECORDS SUMMARY | 2025-04-23 11:54 | XMS_ITS | Encounter Summary ---
Author Organization [facility] Address [address] [place] [address] Care Team Providers Care Shuttle Hand Name Role Phone Radha Cowan MD Primary Care Provider Encounter Details Date Type Department Care Team (Late st Contact Info) Description 06/20/2003 Outpatient Historical [facility] Augusto Nicole Jr., MD [address] [place] [phone] PNEUMONIA, ORGANISM NOS (Primary Dx) Social History Tobacco Use Types Packs/Day Years Used Date Smoking Tobacco: Never Assessed Comments Unknown Sex and Gender Information Value Date Recorded Sex Assigned at Not on file Legal Sex Female 3:33 AM REFINERY OPERATOR REFORMING UNIT Gender Identity Not on file Sexual Orientation Not on file documented as of this encounter Plan of Treatment Not on file documented as of this encounter Visit Diagnoses Diagnosis Pneumonia, organism unspecified(486)- Primary Pneumonia, organism unspecified documented in this encounter Additional Health Concerns Infection Onset Date Last Indicated Resolved Time R/O COVID-19 05/16/2020 05/16/2020 05/18/2020 12:3 1 AM CDT R/O COVID-19 07/25/2020 07/25/2020 07/27/2020 5:01 AM REFINERY OPERATOR REFORMING UNIT R/O COVID-19 09/30/2020 09/30/2020 09/30/2020 7:23 PM REFINERY OPERATOR REFORMING UNIT documented as of this encounter Care Teams Shuttle Hand Relationship Specialty Start Date End Date Radha Cowan MD [address] [phone] PCP - General Family Practice 10/24/20 documented as of this encounter
--- OUTSIDE RECORDS SUMMARY | 2025-04-23 11:54 | XMS_ITS | Encounter Summary ---
Author Organization [facility] Address [address] [place] [address] Care Team Providers Care Taxi Driver Supervisor Name Role Phone Radha Cowan MD Primary Care Provider Encounter Details Date Type Department Care Team (Late st Contact Info) Description 02/19/2003 Outpatient Historical [facility] Augusto Nicole Jr., MD [address] [place] [phone] DIABETES UNCOMPL ADULT-TYPE II (CMS/HCC) (Primary Dx) Social History Tobacco Use Types Packs/Day Years Used Date Smoking Tobacco: Never Assessed Comments Unknown Sex and Gender Information Value Date Recorded Sex Assigned at Not on file Legal Sex Female 3:33 AM PIG FARM MANAGER Gender Identity Not on file Sexual Orientation Not on file documented as of this encounter Plan of Treatment Not on file documented as of this encounter Visit Diagnoses Diagnosis Type II or unspecified type diabetes mellitus without mention of complication, not stated as uncontrolled- Primary documented in this encounter Additional Health Concerns Infection Onset Date Last Indicated Resolved Time R/O COVID-19 05/16/2020 05/16/2020 05/18/2020 12:3 1 AM CDT R/O COVID-19 07/25/2020 07/25/2020 07/27/2020 5:01 AM PIG FARM MANAGER R/O COVID-19 09/30/2020 09/30/2020 09/30/2020 7:23 PM PIG FARM MANAGER documented as of this encounter Care Teams Taxi Driver Supervisor Relationship Specialty Start Date End Date Radha Cowan MD [address] [phone] PCP - General Family Practice 10/24/20 documented as of this encounter
--- OUTSIDE RECORDS SUMMARY | 2025-04-23 11:54 | XMS_ITS | Encounter Summary ---
Author Organization [facility] Address [address] [place] [address] Care Team Providers Care Funeral Service Manager Name Role Phone Radha Cowan MD Primary Care Provider Encounter Details Date Type Department Care Team (Latest Contact Info) Description 01/15/2003 Outpatient Historical [facility] Corey Burkett, Augusto Tang MD [address] [place] [phone] DIABETES UNCOMPL ADULT-TYPE II (CMS/HCC) (Primary Dx); Pure hypercholesterolem; HYPERTENSION NOS; TOBACCO USE DISORDER Social History Tobacco Use Types Packs/Day Years Used Date Smoking Tobacco: Never Assessed Comments Unknown Sex and Gender Information Value Date Recorded Sex Assigned at Not on file Legal Sex Female 3:33 AM ZIPPER SEWING MACHINE OPERATOR Gender Identity Not on file Sexual Orientation Not on file documented as of this encounter Plan of Treatment Not on file documented as of this encounter Visit Diagnoses Diagnosis Type II or unspecified type diabetes mellitus without mention of complication, not stated as uncontrolled- Primary Pure hypercholesterolem Pure hypercholesterolemia Unspecified essential hypertension Tobacco use disorder documented in this encounter Additional Health Concerns Infection Onset Date Last Indicated Resolved Time R/O COVID-19 05/16/2020 05/16/2020 05/18/2020 12:3 1 AM CDT R/O COVID-19 07/25/2020 07/25/2020 07/27/2020 5:01 AM ZIPPER SEWING MACHINE OPERATOR R/O COVID-19 09/30/2020 09/30/2020 09/30/2020 7:23 PM ZIPPER SEWING MACHINE OPERATOR documented as of this encounter Care Teams Funeral Service Manager Relationship Specialty Start Date End Date Radha Cowan MD [address] [address] PCP - General Family Practice 10/24/20 documented as of this encounter
--- OUTSIDE RECORDS SUMMARY | 2025-04-23 11:54 | XMS_ITS | Encounter Summary ---
Author Organization [facility] Address [address]: [place] [address] Care Team Providers Care Vehicle Upholsterer Name Role Phone Radha Cowan MD Primary Care Provider +1- [phone] Encounter Details Date Type Department Care Team (Late st Contact Info) Description 05/19/2002 Outpatient Historical Augusto Nicole Jr., MD [address] [place] [phone] Social History Tobacco Use Types Packs/Day Years Used Date Smoking Tobacco: Never Assessed Comments Unknown Sex and Gender Information Value Date Recorded Sex Assigned at Not on file Legal Sex Female 3:33 AM FLAT BED KNITTER Gender Identity Not on file Sexual Orientation Not on file documented as of this encounter Plan of Treatment Not on file documented as of this encounter Visit Diagnoses Not on filedocumented in this encounter Additional Health Concerns Infection Onset Date Last Indicated Resolved Time R/O COVID-19 05/16/2020 05/16/2020 05/18/2020 12:3 1 AM CDT R/O COVID-19 07/25/2020 07/25/2020 07/27/2020 5:01 AM FLAT BED KNITTER R/O COVID-19 09/30/2020 09/30/2020 09/30/2020 7:23 PM FLAT BED KNITTER documented as of this encounter Care Teams Vehicle Upholsterer Relationship Specialty Start Date End Date Radha Cowan MD [address] [place] [phone] PCP - General Family Practice 10/24/20 documented as of this encounter
--- OUTSIDE RECORDS SUMMARY | 2025-04-23 11:54 | XMS_ITS | Encounter Summary ---
Author Organization [facility] Address [address]: [place] [address] Care Team Providers Care Special Services Coordinator Name Role Phone Radha Cowan MD Primary Care Provider +1- [phone] Encounter Details Date Type Department Care Team (Late st Contact Info) Description 07/03/2002 Outpatient Historical Augusto Nicole Jr., MD [address] [place] [phone] Social History Tobacco Use Types Packs/Day Years Used Date Smoking Tobacco: Never Assessed Comments Unknown Sex and Gender Information Value Date Recorded Sex Assigned at Not on file Legal Sex Female 3:33 AM STAFF AIR DEFENSE OFFICER Gender Identity Not on file Sexual Orientation Not on file documented as of this encounter Plan of Treatment Not on file documented as of this encounter Visit Diagnoses Not on filedocumented in this encounter Additional Health Concerns Infection Onset Date Last Indicated Resolved Time R/O COVID-19 05/16/2020 05/16/2020 05/18/2020 12:3 1 AM CDT R/O COVID-19 07/25/2020 07/25/2020 07/27/2020 5:01 AM STAFF AIR DEFENSE OFFICER R/O COVID-19 09/30/2020 09/30/2020 09/30/2020 7:23 PM STAFF AIR DEFENSE OFFICER documented as of this encounter Care Teams Special Services Coordinator Relationship Specialty Start Date End Date Radha Cowan MD [address] [place] [phone] PCP - General Family Practice 10/24/20 documented as of this encounter
--- OUTSIDE RECORDS SUMMARY | 2025-04-23 11:54 | XMS_ITS | Encounter Summary ---
Author Organization [facility] Address [address] [facility] [address]: [place] [address] Care Team Providers Care Casing Runner Name Role Phone Radha Cowan MD Primary Care Provider [phone]- [phone] Encounter Details Date Type Department Care Team (Late st Contact Info) Description 09/01/2001 Outpatient Historical Augusto Nicole Jr., MD [address] [place] [phone] Social History Tobacco Use Types Packs/Day Years Used Date Smoking Tobacco: Never Assessed Comments Unknown Sex and Gender Information Value Date Recorded Sex Assigned at Not on file Legal Sex Female 3:33 AM RAILWAY SIGNAL OPERATOR Gender Identity Not on file Sexual Orientation Not on file documented as of this encounter Plan of Treatment Not on file documented as of this encounter Visit Diagnoses Not on filedocumented in this encounter Additional Health Concerns Infection Onset Date Last Indicated Resolved Time R/O COVID-19 05/16/2020 05/16/2020 05/18/2020 12:3 1 AM CDT R/O COVID-19 07/25/2020 07/25/2020 07/27/2020 5:01 AM RAILWAY SIGNAL OPERATOR R/O COVID-19 09/30/2020 09/30/2020 09/30/2020 7:23 PM RAILWAY SIGNAL OPERATOR documented as of this encounter Care Teams Casing Runner Relationship Specialty Start Date End Date Radha Cowan MD [address] [facility] [address] [place] [phone] PCP - General Family Practice 10/24/20 documented as of this encounter
--- OUTSIDE RECORDS SUMMARY | 2025-04-23 11:54 | XMS_ITS | Encounter Summary ---
Author Organization [facility] Address [address] [place] [address] Care Team Providers Care Wastewater Treatment Plant Chemist Name Role Phone Radha Cowan MD Primary Care Provider Encounter Details Date Type Department Care Team (Latest Contact Info) Description 10/13/2001 Outpatient Historical [facility] Augusto Nicole Jr., MD [address] [place] [phone] HYPERLIPIDEMIA NEC/NOS (Primary Dx); OBESITY NOS; DEPRESSIVE DISORDER NEC Social History Tobacco Use Types Packs/Day Years Used Date Smoking Tobacco: Never Assessed Comments Unknown Sex and Gender Information Value Date Recorded Sex Assigned at Not on file Legal Sex Female 3:33 AM PROCESS IMPROVEMENT ANALYST Gender Identity Not on file Sexual Orientation Not on file documented as of this encounter Plan of Treatment Not on file documented as of this encounter Visit Diagnoses Diagnosis Other and unspecified hyperlipidemia- Primary Obesity, unspecified Depressive disorder, not elsewhere classified documented in this encounter Additional Health Concerns Infection Onset Date Last Indicated Resolved Time R/O COVID-19 05/16/2020 05/16/2020 05/18/2020 12:3 1 AM CDT R/O COVID-19 07/25/2020 07/25/2020 07/27/2020 5:01 AM PROCESS IMPROVEMENT ANALYST R/O COVID-19 09/30/2020 09/30/2020 09/30/2020 7:23 PM PROCESS IMPROVEMENT ANALYST documented as of this encounter Care Teams Wastewater Treatment Plant Chemist Relationship Specialty Start Date End Date Radha Cowan MD [address] [phone] PCP - General Family Practice 10/24/20 documented as of this encounter
--- OUTSIDE RECORDS SUMMARY | 2025-04-23 11:54 | XMS_ITS | Encounter Summary ---
Author Organization [facility] Address [address] [place] [address] Care Team Providers Care Short Piece Handler Name Role Phone Radha Cowan MD Primary Care Provider [phone]- [phone] Encounter Details Date Type Department Care Team (Latest Contact Info) Description 12/20/2000 Outpatient Historical [facility] Augusto Nicole Jr., MD [address] [place] [phone] Pure hypercholesterolem (Primary Dx) Social History Tobacco Use Types Packs/Day Years Used Date Smoking Tobacco: Never Assessed Comments Unknown Sex and Gender Information Value Date Recorded Sex Assigned at Not on file Legal Sex Female 3:33 AM LIFE UNDERWRITER Gender Identity Not on file Sexual Orientation Not on file documented as of this encounter Plan of Treatment Not on file documented as of this encounter Visit Diagnoses Diagnosis Pure hypercholesterolem- Primary Pure hypercholesterolemia documented in this encounter Additional Health Concerns Infection Onset Date Last Indicated Resolved Time R/O COVID-19 05/16/2020 05/16/2020 05/18/2020 12:3 1 AM CDT R/O COVID-19 07/25/2020 07/25/2020 07/27/2020 5:01 AM LIFE UNDERWRITER R/O COVID-19 09/30/2020 09/30/2020 09/30/2020 7:23 PM LIFE UNDERWRITER documented as of this encounter Care Teams Short Piece Handler Relationship Specialty Start Date End Date Radha Cowan MD [address] [place] [address] PCP - General Family Practice 10/24/20 documented as of this encounter
--- OUTSIDE RECORDS SUMMARY | 2025-04-23 11:54 | XMS_ITS | Encounter Summary ---
Author Organization [facility] Address [address] [place] [address] Care Team Providers Care Drug Enforcement Agent Name Role Phone Radha Cowna MD Primary Care Provider Encounter Details Date Type Department Care Team (Latest Contact Info) Description 11/02/2002 Outpatient Historical [facility] Corey Burkett, Augusto Tang MD [address] [place] [phone] DIABETES UNCOMPL ADULT-TYPE II (CMS/HCC) (Primary Dx); Pure hypercholesterolem; LUMBAGO; ABNORMAL FINDINGS-LUNG FIELD Social History Tobacco Use Types Packs/Day Years Used Date Smoking Tobacco: Never Assessed Comments Unknown Sex and Gender Information Value Date Recorded Sex Assigned at Not on file Legal Sex Female 3:33 AM NITRATOR OPERATOR Gender Identity Not on file Sexual Orientation Not on file documented as of this encounter Plan of Treatment Not on file documented as of this encounter Visit Diagnoses Diagnosis Type II or unspecified type diabetes mellitus without mention of complication, not stated as uncontrolled- Primary Pure hypercholesterolem Pure hypercholesterolemia Lumbago Nonspecific (abnormal) findings on radiological and other examination of lung field documented in this encounter Additional Health Concerns Infection Onset Date Last Indicated Resolved Time R/O COVID-19 05/16/2020 05/16/2020 05/18/2020 12:3 1 AM CDT R/O COVID-19 07/25/2020 07/25/2020 07/27/2020 5:01 AM NITRATOR OPERATOR R/O COVID-19 09/30/2020 09/30/2020 09/30/2020 7:23 PM NITRATOR OPERATOR documented as of this encounter Care Teams Drug Enforcement Agent Relationship Specialty Start Date End Date Radha Cowan MD [address] [address] PCP - General Family Practice 10/24/20 documented as of this encounter
--- OUTSIDE RECORDS SUMMARY | 2025-04-23 11:54 | XMS_ITS | Encounter Summary ---
Author Organization [facility] Address [address] [place] [address] Care Team Providers Care Maintenance Painter Name Role Phone Radha Cowan MD Primary Care Provider +1- [phone] Encounter Details Date Type Department Care Team (Latest Contact Info) Description 03/24/2001 Outpatient Historical [facility] Corey Burkett, Augusto Tang MD [facility] [place] [address] Hip, thigh, leg, and ankle, abrasion or friction burn, without mention of infection (Primary Dx); Other, multiple, and unspecified sites, insect bite, nonvenomous, without mention of infection(919.4); Nonvenom arthropod bite; Depressive disorder, not elsewhere classified Social History Tobacco Use Types Packs/Day Years Used Date Smoking Tobacco: Never Assessed Comments Unknown Sex and Gender Information Value Date Recorded Sex Assigned at Not on file Legal Sex Female 3:33 AM PROFESSIONAL NURSING TUTOR Gender Identity Not on file Sexual Orientation Not on file documented as of this encounter Plan of Treatment Not on file documented as of this encounter Visit Diagnoses Diagnosis Hip, thigh, leg, and ankle, abrasion or friction burn, without mention of infection- Primary Other, multiple, and unspecified sites, insect bite, nonvenomous, without mention of infection(919.4) Other, multiple, and unspecified sites, insect bite, nonvenomous, without mention of infection Nonvenom arthropod bite Open wound(s) (multiple) of unspecified site(s), without mention of complication Depressive disorder, not elsewhere classified documented in this encounter Additional Health Concerns Infection Onset Date Last Indicated Resolved Time R/O COVID-19 05/16/2020 05/16/2020 05/18/2020 12:3 1 AM CDT R/O COVID-19 07/25/2020 07/25/2020 07/27/2020 5:01 AM PROFESSIONAL NURSING TUTOR R/O COVID-19 09/30/2020 09/30/2020 09/30/2020 7:23 PM PROFESSIONAL NURSING TUTOR documented as of this encounter Care Teams Maintenance Painter Relationship Specialty Start Date End Date Radha Cowan MD [address] [phone] PCP - General Family Practice 10/24/20 documented as of this encounter
--- OUTSIDE RECORDS SUMMARY | 2025-04-23 11:54 | XMS_ITS | Encounter Summary ---
Author Organization [facility] Address [address] [place] [address] Care Team Providers Care Turf Manager Name Role Phone Radha Cowan MD Primary Care Provider +1- [phone] Encounter Details Date Type Department Care Team (Latest Contact Info) Description 12/05/2001 Outpatient Historical [facility] Augusto Nicole Jr., MD [address] [place] [phone] HYPERLIPIDEMIA NEC/NOS (Primary Dx) Social History Tobacco Use Types Packs/Day Years Used Date Smoking Tobacco: Never Assessed Comments Unknown Sex and Gender Information Value Date Recorded Sex Assigned at Not on file Legal Sex Female 3:33 AM VENETIAN BLIND CLEANER Gender Identity Not on file Sexual Orientation Not on file documented as of this encounter Plan of Treatment Not on file documented as of this encounter Visit Diagnoses Diagnosis Other and unspecified hyperlipidemia- Primary documented in this encounter Additional Health Concerns Infection Onset Date Last Indicated Resolved Time R/O COVID-19 05/16/2020 05/16/2020 05/18/2020 12:3 1 AM CDT R/O COVID-19 07/25/2020 07/25/2020 07/27/2020 5:01 AM VENETIAN BLIND CLEANER R/O COVID-19 09/30/2020 09/30/2020 09/30/2020 7:23 PM VENETIAN BLIND CLEANER documented as of this encounter Care Teams Turf Manager Relationship Specialty Start Date End Date Radha Cowan MD [address] [place] [address] PCP - General Family Practice 10/24/20 documented as of this encounter
--- OUTSIDE RECORDS SUMMARY | 2025-04-23 11:54 | XMS_ITS | Encounter Summary ---
Author Organization [facility] Address [address] [place] [address] Care Team Providers Care Hockey Scout Name Role Phone Radha Cowan MD Primary Care Provider Encounter Details Date Type Department Care Team (Latest Contact Info) Description 01/12/2003 Outpatient Historical [facility] [place] [address] [place] [address] Mirza Amezcua MD NO ADDRESS ON FILE COUGH (Primary Dx) Social History Tobacco Use Types Packs/Day Years Used Date Smoking Tobacco: Never Assessed Comments Unknown Sex and Gender Information Value Date Recorded Sex Assigned at Not on file Legal Sex Female 3:33 AM PEDIATRICIAN ACTIVE PRACTICE Gender Identity Not on file Sexual Orientation Not on file documented as of this encounter Plan of Treatment Not on file documented as of this encounter Visit Diagnoses Diagnosis Cough- Primary documented in this encounter Additional Health Concerns Infection Onset Date Last Indicated Resolved Time R/O COVID-19 05/16/2020 05/16/2020 05/18/2020 12:3 1 AM CDT R/O COVID-19 07/25/2020 07/25/2020 07/27/2020 5:01 AM PEDIATRICIAN ACTIVE PRACTICE R/O COVID-19 09/30/2020 09/30/2020 09/30/2020 7:23 PM PEDIATRICIAN ACTIVE PRACTICE documented as of this encounter Care Teams Hockey Scout Relationship Specialty Start Date End Date Radha Cowan MD [address] [facility] [place] [phone] PCP - General Family Practice 10/24/20 documented as of this encounter
--- OUTSIDE RECORDS SUMMARY | 2025-04-23 11:54 | XMS_ITS | Encounter Summary ---
Author Organization [facility] Address [address] [place] [address] Care Team Providers Care Dragline Engineer Name Role Phone Radha Cowan MD Primary Care Provider Encounter Details Date Type Department Care Team (Latest Contact Info) Description 04/27/2001 Outpatient Historical [facility] Augusto Nicole Jr., MD [address] [place] [phone] Chest pain, unspecified (Primary Dx); Generalized anxiety disorder Social History Tobacco Use Types Packs/Day Years Used Date Smoking Tobacco: Never Assessed Comments Unknown Sex and Gender Information Value Date Recorded Sex Assigned at Not on file Legal Sex Female 3:33 AM PROJECT FINANCE ANALYST Gender Identity Not on file Sexual Orientation Not on file documented as of this encounter Plan of Treatment Not on file documented as of this encounter Visit Diagnoses Diagnosis Chest pain, unspecified- Primary Generalized anxiety disorder documented in this encounter Additional Health Concerns Infection Onset Date Last Indicated Resolved Time R/O COVID-19 05/16/2020 05/16/2020 05/18/2020 12:3 1 AM CDT R/O COVID-19 07/25/2020 07/25/2020 07/27/2020 5:01 AM PROJECT FINANCE ANALYST R/O COVID-19 09/30/2020 09/30/2020 09/30/2020 7:23 PM PROJECT FINANCE ANALYST documented as of this encounter Care Teams Dragline Engineer Relationship Specialty Start Date End Date Radha Cowan MD [address] [facility] [address] [place] [address] PCP - General Family Practice 10/24/20 documented as of this encounter
--- OUTSIDE RECORDS SUMMARY | 2025-04-23 11:54 | XMS_ITS | Encounter Summary ---
Author Organization [facility] Address [address] [place] [address] Care Team Providers Care Heating Plant Superintendent Name Role Phone Radha Cowan MD Primary Care Provider Encounter Details Date Type Department Care Team (Latest Contact Info) Description 06/20/2003 Outpatient Historical [facility] Corey Burkett, Augusto Tang MD [address] [place] [phone] DIABETES UNCOMPL ADULT-TYPE II ([facility]) (Primary Dx); ACUTE BRONCHIOLITIS/RESP SYNC VIRUS; TRACHEA/BRONCHUS DIS NEC; ASTHMA UNSPECIFIED Social History Tobacco Use Types Packs/Day Years Used Date Smoking Tobacco: Never Assessed Comments Unknown Sex and Gender Information Value Date Recorded Sex Assigned at Not on file Legal Sex Female 3:33 AM TANKMAN Gender Identity Not on file Sexual Orientation Not on file documented as of this encounter Plan of Treatment Not on file documented as of this encounter Visit Diagnoses Diagnosis Type II or unspecified type diabetes mellitus without mention of complication, not stated as uncontrolled- Primary Acute bronchiolitis due to respiratory syncytial virus (RSV) Other diseases of trachea and bronchus, not elsewhere classified Unspecified asthma(493.90) Unspecified asthma documented in this encounter Additional Health Concerns Infection Onset Date Last Indicated Resolved Time R/O COVID-19 05/16/2020 05/16/2020 05/18/2020 12:3 1 AM CDT R/O COVID-19 07/25/2020 07/25/2020 07/27/2020 5:01 AM TANKMAN R/O COVID-19 09/30/2020 09/30/2020 09/30/2020 7:23 PM TANKMAN documented as of this encounter Care Teams Heating Plant Superintendent Relationship Specialty Start Date End Date Radha Cowan MD [address] [phone] PCP - General Family Practice 10/24/20 documented as of this encounter
--- OUTSIDE RECORDS SUMMARY | 2025-04-23 11:54 | XMS_ITS | Encounter Summary ---
Author Organization [facility] Address [address] [place] [address] Care Team Providers Care Drop Crew Laborer Name Role Phone Radha Cowan MD Primary Care Provider Encounter Details Date Type Department Care Team (Latest Contact Info) Description 06/10/2001 Outpatient Historical [facility] Augusto Nicole Jr., MD [address] [place] [phone] Chronic airway obstruction, not elsewhere classified (CMS/HCC) (Primary Dx); Pure hypercholesterolem Social History Tobacco Use Types Packs/Day Years Used Date Smoking Tobacco: Never Assessed Comments Unknown Sex and Gender Information Value Date Recorded Sex Assigned at Not on file Legal Sex Female 3:33 AM CROSSBOW MAKER Gender Identity Not on file Sexual Orientation Not on file documented as of this encounter Plan of Treatment Not on file documented as of this encounter Visit Diagnoses Diagnosis Chronic airway obstruction, not elsewhere classified (CMS/HCC)- Primary Chronic airway obstruction, not elsewhere classified Pure hypercholesterolem Pure hypercholesterolemia documented in this encounter Additional Health Concerns Infection Onset Date Last Indicated Resolved Time R/O COVID-19 05/16/2020 05/16/2020 05/18/2020 12:3 1 AM CDT R/O COVID-19 07/25/2020 07/25/2020 07/27/2020 5:01 AM CROSSBOW MAKER R/O COVID-19 09/30/2020 09/30/2020 09/30/2020 7:23 PM CROSSBOW MAKER documented as of this encounter Care Teams Drop Crew Laborer Relationship Specialty Start Date End Date Radha Cowan MD [address] [phone] PCP - General Family Practice 10/24/20 documented as of this encounter
--- OUTSIDE RECORDS SUMMARY | 2025-04-23 11:54 | XMS_ITS | Encounter Summary ---
Author Organization [facility] Address [address]: [place] [address] Care Team Providers Care Pot Liner Name Role Phone Radha Cowan MD Primary Care Provider +1- [phone] Encounter Details Date Type Department Care Team (Late st Contact Info) Description 02/18/2001 Outpatient Historical Augusto Nicole Jr., MD [address] [place] [phone] Social History Tobacco Use Types Packs/Day Years Used Date Smoking Tobacco: Never Assessed Comments Unknown Sex and Gender Information Value Date Recorded Sex Assigned at Not on file Legal Sex Female 3:33 AM HEAT ENGINEERING TEACHER Gender Identity Not on file Sexual Orientation Not on file documented as of this encounter Plan of Treatment Not on file documented as of this encounter Visit Diagnoses Not on filedocumented in this encounter Additional Health Concerns Infection Onset Date Last Indicated Resolved Time R/O COVID-19 05/16/2020 05/16/2020 05/18/2020 12:3 1 AM CDT R/O COVID-19 07/25/2020 07/25/2020 07/27/2020 5:01 AM HEAT ENGINEERING TEACHER R/O COVID-19 09/30/2020 09/30/2020 09/30/2020 7:23 PM HEAT ENGINEERING TEACHER documented as of this encounter Care Teams Pot Liner Relationship Specialty Start Date End Date Radha Cowan MD [address] [place] [phone] PCP - General Family Practice 10/24/20 documented as of this encounter
--- OUTSIDE RECORDS SUMMARY | 2025-04-23 11:54 | XMS_ITS | Encounter Summary ---
Author Organization [facility] Address [address] [place] [address] Care Team Providers Care Sales Market Leader Name Role Phone Radha Cowan MD Primary Care Provider [phone]- [phone] Encounter Details Date Type Department Care Team (Latest Contact Info) Description 05/10/2002 Outpatient Historical [facility] Corey Burkett, Augusto aTng MD [address] [place] [phone] ANEMIA NOS (Primary Dx); EDEMA; DIABETES UNCOMPL ADULT-TYPE II (CMS/HCC); CHRONIC AIRWAY OBSTRUCTION NEC ([facility] Social History Tobacco Use Types Packs/Day Years Used Date Smoking Tobacco: Never Assessed Comments Unknown Sex and Gender Information Value Date Recorded Sex Assigned at Not on file Legal Sex Female 3:33 AM PICKER PACKER Gender Identity Not on file Sexual Orientation Not on file documented as of this encounter Plan of Treatment Not on file documented as of this encounter Visit Diagnoses Diagnosis Anemia, unspecified- Primary Edema Type II or unspecified type diabetes mellitus without mention of complication, not stated as uncontrolled Chronic airway obstruction, not elsewhere classified (CMS/HCC) Chronic airway obstruction, not elsewhere classified documented in this encounter Additional Health Concerns Infection Onset Date Last Indicated Resolved Time R/O COVID-19 05/16/2020 05/16/2020 05/18/2020 12:3 1 AM CDT R/O COVID-19 07/25/2020 07/25/2020 07/27/2020 5:01 AM PICKER PACKER R/O COVID-19 09/30/2020 09/30/2020 09/30/2020 7:23 PM PICKER PACKER documented as of this encounter Care Teams Sales Market Leader Relationship Specialty Start Date End Date Radha Cowan MD [address] [address] PCP - General Family Practice 10/24/20 documented as of this encounter
--- OUTSIDE RECORDS SUMMARY | 2025-04-23 11:54 | XMS_ITS | Encounter Summary ---
Author Organization [facility] Address [address] [place] [address] Care Team Providers Care Miter Sawyer Name Role Phone Radha Cowan MD Primary Care Provider [phone] Encounter Details Date Type Department Care Team (Latest Contact Info) Description 03/15/2002 Outpatient Historical [facility] Corey Burkett, Augusto Tang MD [address] [place] [phone] DIABETES UNCOMPL ADULT-TYPE II (CMS/HCC) (Primary Dx); ABNORMAL URINE FINDINGS NEC; HEMATURIA; AFTERCARE BUILDING OPERATOR USE MEDICATN Social History Tobacco Use Types Packs/Day Years Used Date Smoking Tobacco: Never Assessed Comments Unknown Sex and Gender Information Value Date Recorded Sex Assigned at Not on file Legal Sex Female 3:33 AM AIRPLANE CABIN ATTENDANT Gender Identity Not on file Sexual Orientation Not on file documented as of this encounter Plan of Treatment Not on file documented as of this encounter Visit Diagnoses Diagnosis Type II or unspecified type diabetes mellitus without mention of complication, not stated as uncontrolled- Primary Other nonspecific finding on examination of urine Hematuria Encounter for long-term (current) use of other medications documented in this encounter Additional Health Concerns Infection Onset Date Last Indicated Resolved Time R/O COVID-19 05/16/2020 05/16/2020 05/18/2020 12:3 1 AM CDT R/O COVID-19 07/25/2020 07/25/2020 07/27/2020 5:01 AM AIRPLANE CABIN ATTENDANT R/O COVID-19 09/30/2020 09/30/2020 09/30/2020 7:23 PM AIRPLANE CABIN ATTENDANT documented as of this encounter Care Teams Miter Sawyer Relationship Specialty Start Date End Date Radha Cowan MD [address] [address] PCP - General Family Practice 10/24/20 documented as of this encounter
--- OUTSIDE RECORDS SUMMARY | 2025-04-23 11:54 | XMS_ITS | Encounter Summary ---
Author Organization [facility] Address [address] [place] [address] Care Team Providers Care Forward Air Controller/Air Officer Name Role Phone Radha Cowan MD Primary Care Provider Encounter Details Date Type Department Care Team (Latest Contact Info) Description 04/24/2002 Outpatient Historical [facility] ToroHema MD [address] [address] SURGERY FOLLOWUP, UNSPEC (Primary Dx) Social History Tobacco Use Types Packs/Day Years Used Date Smoking Tobacco: Never Assessed Comments Unknown Sex and Gender Information Value Date Recorded Sex Assigned at Not on file Legal Sex Female 3:33 AM KNOCKUP WORKER Gender Identity Not on file Sexual Orientation Not on file documented as of this encounter Plan of Treatment Not on file documented as of this encounter Visit Diagnoses Diagnosis Follow-up examination, following unspecified surgery- Primary documented in this encounter Additional Health Concerns Infection Onset Date Last Indicated Resolved Time R/O COVID-19 05/16/2020 05/16/2020 05/18/2020 12:3 1 AM CDT R/O COVID-19 07/25/2020 07/25/2020 07/27/2020 5:01 AM KNOCKUP WORKER R/O COVID-19 09/30/2020 09/30/2020 09/30/2020 7:23 PM KNOCKUP WORKER documented as of this encounter Care Teams Forward Air Controller/Air Officer Relationship Specialty Start Date End Date Radha Cowan MD [address] [phone] PCP - General Family Practice 10/24/20 documented as of this encounter
--- OUTSIDE RECORDS SUMMARY | 2025-04-23 11:54 | XMS_ITS | Encounter Summary ---
Author Organization [facility] Address [address] [place] [address] Care Team Providers Care Director Speech Language Name Role Phone Radha Cowan MD Primary Care Provider [phone] Encounter Details Date Type Department Care Team (Latest Contact Info) Description 07/20/2001 Outpatient Historical [facility] Fadi Hampton MD [address] [place] [address] CHRONIC RHINITIS (Primary Dx); TRACHEA/BRONCHUS DIS NEC; OBESITY NOS; TOBACCO USE DISORDER Social History Tobacco Use Types Packs/Day Years Used Date Smoking Tobacco: Never Assessed Comments Unknown Sex and Gender Information Value Date Recorded Sex Assigned at Not on file Legal Sex Female 3:33 AM ROLLING MACHINE OPERATOR Gender Identity Not on file Sexual Orientation Not on file documented as of this encounter Plan of Treatment Not on file documented as of this encounter Visit Diagnoses Diagnosis Chronic rhinitis- Primary Other diseases of trachea and bronchus, not elsewhere classified Obesity, unspecified Tobacco use disorder documented in this encounter Additional Health Concerns Infection Onset Date Last Indicated Resolved Time R/O COVID-19 05/16/2020 05/16/2020 05/18/2020 12:3 1 AM CDT R/O COVID-19 07/25/2020 07/25/2020 07/27/2020 5:01 AM ROLLING MACHINE OPERATOR R/O COVID-19 09/30/2020 09/30/2020 09/30/2020 7:23 PM ROLLING MACHINE OPERATOR documented as of this encounter Care Teams Director Speech Language Relationship Specialty Start Date End Date Radha Cowan MD [address] [phone] PCP - General Family Practice 10/24/20 documented as of this encounter
--- OUTSIDE RECORDS SUMMARY | 2025-04-23 11:54 | XMS_ITS | Encounter Summary ---
Author Organization [facility] Address [address] [place] [address] Care Team Providers Care Benzene Still Utility Operator Name Role Phone Radha Cowan MD Primary Care Provider Encounter Details Date Type Department Care Team (Latest Contact Info) Description 01/06/1999 Outpatient Historical [facility] Augusto Nicole Jr., MD [address] [place] [phone] Insomnia, unspecified (Primary Dx); Depressive disorder, not elsewhere classified Social History Tobacco Use Types Packs/Day Years Used Date Smoking Tobacco: Never Assessed Comments Unknown Sex and Gender Information Value Date Recorded Sex Assigned at Not on file Legal Sex Female 3:33 AM PRACTICE PHYSICIAN Gender Identity Not on file Sexual Orientation Not on file documented as of this encounter Plan of Treatment Not on file documented as of this encounter Visit Diagnoses Diagnosis Insomnia, unspecified- Primary Depressive disorder, not elsewhere classified documented in this encounter Additional Health Concerns Infection Onset Date Last Indicated Resolved Time R/O COVID-19 05/16/2020 05/16/2020 05/18/2020 12:3 1 AM CDT R/O COVID-19 07/25/2020 07/25/2020 07/27/2020 5:01 AM PRACTICE PHYSICIAN R/O COVID-19 09/30/2020 09/30/2020 09/30/2020 7:23 PM PRACTICE PHYSICIAN documented as of this encounter Care Teams Benzene Still Utility Operator Relationship Specialty Start Date End Date Radha Cowan MD [address] [phone] PCP - General Family Practice 10/24/20 documented as of this encounter
--- OUTSIDE RECORDS SUMMARY | 2025-04-23 11:54 | XMS_ITS | Encounter Summary ---
Author Organization [facility] Address [address] Charlesn: [place] [address] Care Team Providers Care Crayon Painter Name Role Phone Radha Cowan MD Primary Care Provider [phone]- [phone] Encounter Details Date Type Department Care Team (Late st Contact Info) Description 03/15/2002 Outpatient Historical Augusto Nicole Jr., MD [address] [place] [phone] Social History Tobacco Use Types Packs/Day Years Used Date Smoking Tobacco: Never Assessed Comments Unknown Sex and Gender Information Value Date Recorded Sex Assigned at Not on file Legal Sex Female 3:33 AM WEB SYSTEMS DEVELOPER Gender Identity Not on file Sexual Orientation Not on file documented as of this encounter Plan of Treatment Not on file documented as of this encounter Visit Diagnoses Not on filedocumented in this encounter Additional Health Concerns Infection Onset Date Last Indicated Resolved Time R/O COVID-19 05/16/2020 05/16/2020 05/18/2020 12:3 1 AM CDT R/O COVID-19 07/25/2020 07/25/2020 07/27/2020 5:01 AM WEB SYSTEMS DEVELOPER R/O COVID-19 09/30/2020 09/30/2020 09/30/2020 7:23 PM WEB SYSTEMS DEVELOPER documented as of this encounter Care Teams Crayon Painter Relationship Specialty Start Date End Date Radha Cowan MD [address] [place] [phone] PCP - General Family Practice 10/24/20 documented as of this encounter
--- OUTSIDE RECORDS SUMMARY | 2025-04-23 11:54 | XMS_ITS | Encounter Summary ---
Author Organization [facility] Address [address] [place] [address] Care Team Providers Care Computer Support Technician Name Role Phone Radha Cowan MD Primary Care Provider Encounter Details Date Type Department Care Team (Late st Contact Info) Description 10/31/2004 Outpatient Historical [facility] Alfonso Carranza MD [address] [address] Social History Tobacco Use Types Packs/Day Years Used Date Smoking Tobacco: Never Assessed Comments Unknown Sex and Gender Information Value Date Recorded Sex Assigned at Not on file Legal Sex Female 3:33 AM FIRE CHIEF Gender Identity Not on file Sexual Orientation Not on file documented as of this encounter Plan of Treatment Not on file documented as of this encounter Visit Diagnoses Not on filedocumented in this encounter Additional Health Concerns Infection Onset Date Last Indicated Resolved Time R/O COVID-19 05/16/2020 05/16/2020 05/18/2020 12:3 1 AM CDT R/O COVID-19 07/25/2020 07/25/2020 07/27/2020 5:01 AM FIRE CHIEF R/O COVID-19 09/30/2020 09/30/2020 09/30/2020 7:23 PM FIRE CHIEF documented as of this encounter Care Teams Computer Support Technician Relationship Specialty Start Date End Date Radha Cowan MD [address] [place] [phone] PCP - General Family Practice 10/24/20 documented as of this encounter
--- OUTSIDE RECORDS SUMMARY | 2025-04-23 11:54 | XMS_ITS | Encounter Summary ---
Author Organization [facility] Address [address] [place] [address] Care Team Providers Care State Archivist Name Role Phone Radha Cowan MD Primary Care Provider [phone] Encounter Details Date Type Department Care Team (Latest Contact Info) Description 12/30/2000 Outpatient Historical [facility] Augusto Nicole Jr., MD [address] [place] [phone] Elevated sediment rate (Primary Dx); Osteoarthrosis, unspecified whether generalized or localized, unspecified site Social History Tobacco Use Types Packs/Day Years Used Date Smoking Tobacco: Never Assessed Comments Unknown Sex and Gender Information Value Date Recorded Sex Assigned at Not on file Legal Sex Female 3:33 AM EXPERIMENTAL PLASTICS FABRICATOR Gender Identity Not on file Sexual Orientation Not on file documented as of this encounter Plan of Treatment Not on file documented as of this encounter Visit Diagnoses Diagnosis Elevated sediment rate- Primary Elevated sedimentation rate Osteoarthrosis, unspecified whether generalized or localized, unspecified site documented in this encounter Additional Health Concerns Infection Onset Date Last Indicated Resolved Time R/O COVID-19 05/16/2020 05/16/2020 05/18/2020 12:3 1 AM CDT R/O COVID-19 07/25/2020 07/25/2020 07/27/2020 5:01 AM EXPERIMENTAL PLASTICS FABRICATOR R/O COVID-19 09/30/2020 09/30/2020 09/30/2020 7:2 3 PM EXPERIMENTAL PLASTICS FABRICATOR documented as of this encounter Care Teams State Archivist Relationship Specialty Start Date End Date Radha Cowan MD [address] [phone] PCP - General Family Practice 10/24/20 documented as of this encounter
--- OUTSIDE RECORDS SUMMARY | 2025-04-23 11:54 | XMS_ITS | Encounter Summary ---
Author Organization [facility] Address [address] [place] [address] Care Team Providers Care Nitrate Operator Name Role Phone Radha Cowan MD Primary Care Provider Encounter Details Date Type Department Care Team (Latest Contact Info) Description 04/17/1999 Outpatient Historical [facility] Augusto Nicole Jr., MD [address] [place] [phone] Chest pain, unspecified (Primary Dx); Edema; Major depressive disorder, single episode, unspecified Social History Tobacco Use Types Packs/Day Years Used Date Smoking Tobacco: Never Assessed Comments Unknown Sex and Gender Information Value Date Recorded Sex Assigned at Not on file Legal Sex Female 3:33 AM OVERHAULER BUS TRUCK Gender Identity Not on file Sexual Orientation Not on file documented as of this encounter Plan of Treatment Not on file documented as of this encounter Visit Diagnoses Diagnosis Chest pain, unspecified- Primary Edema Major depressive disorder, single episode, unspecified documented in this encounter Additional Health Concerns Infection Onset Date Last Indicated Resolved Time R/O COVID-19 05/16/2020 05/16/2020 05/18/2020 12:3 1 AM CDT R/O COVID-19 07/25/2020 07/25/2020 07/27/2020 5:01 AM OVERHAULER BUS TRUCK R/O COVID-19 09/30/2020 09/30/2020 09/30/2020 7:23 PM OVERHAULER BUS TRUCK documented as of this encounter Care Teams Nitrate Operator Relationship Specialty Start Date End Date Radha Cowan MD [address] [phone] PCP - General Family Practice 10/24/20 documented as of this encounter
--- OUTSIDE RECORDS SUMMARY | 2025-04-23 11:54 | XMS_ITS | Encounter Summary ---
Author Organization [facility] Address [address] [place] [address] Care Team Providers Care Programming Engineer Name Role Phone Radha Cowan MD Primary Care Provider Encounter Details Date Type Department Care Team (Latest Contact Info) Description 11/28/1998 Outpatient Historical [facility] Augusto Nicole Jr., MD [address] [place] [phone] Unspecified essential hypertension (Primary Dx); Unspecified thrombosed hemorrhoids; Obesity, unspecified Social History Tobacco Use Types Packs/Day Years Used Date Smoking Tobacco: Never Assessed Comments Unknown Sex and Gender Information Value Date Recorded Sex Assigned at Not on file Legal Sex Female 3:33 AM ENVIRONMENTAL ADVISOR Gender Identity Not on file Sexual Orientation Not on file documented as of this encounter Plan of Treatment Not on file documented as of this encounter Visit Diagnoses Diagnosis Unspecified essential hypertension- Primary Unspecified thrombosed hemorrhoids Obesity, unspecified documented in this encounter Additional Health Concerns Infection Onset Date Last Indicated Resolved Time R/O COVID-19 05/16/2020 05/16/2020 05/18/2020 12:3 1 AM CDT R/O COVID-19 07/25/2020 07/25/2020 07/27/2020 5:01 AM ENVIRONMENTAL ADVISOR R/O COVID-19 09/30/2020 09/30/2020 09/30/2020 7:23 PM ENVIRONMENTAL ADVISOR documented as of this encounter Care Teams Programming Engineer Relationship Specialty Start Date End Date Radha Cowan MD [address] [phone] PCP - General Family Practice 10/24/20 documented as of this encounter
--- OUTSIDE RECORDS SUMMARY | 2025-04-23 11:54 | XMS_ITS | Encounter Summary ---
Author Organization [facility] Address [address] Charlesn: [place] [address] Care Team Providers Care Tassel Maker Name Role Phone Radha Cowan MD Primary Care Provider [phone] Encounter Details Date Type Department Care Team (Late st Contact Info) Description 12/19/2001 Outpatient Historical Augusto Nicole Jr., MD [address] [place] [phone] Social History Tobacco Use Types Packs/Day Years Used Date Smoking Tobacco: Never Assessed Comments Unknown Sex and Gender Information Value Date Recorded Sex Assigned at Not on file Legal Sex Female 3:33 AM PRODUCT DEVELOPMENT ECOLOGIST Gender Identity Not on file Sexual Orientation Not on file documented as of this encounter Plan of Treatment Not on file documented as of this encounter Visit Diagnoses Not on filedocumented in this encounter Additional Health Concerns Infection Onset Date Last Indicated Resolved Time R/O COVID-19 05/16/2020 05/16/2020 05/18/2020 12:3 1 AM CDT R/O COVID-19 07/25/2020 07/25/2020 07/27/2020 5:01 AM PRODUCT DEVELOPMENT ECOLOGIST R/O COVID-19 09/30/2020 09/30/2020 09/30/2020 7:23 PM PRODUCT DEVELOPMENT ECOLOGIST documented as of this encounter Care Teams Tassel Maker Relationship Specialty Start Date End Date Radha Cowan MD [address] [place] [phone] PCP - General Family Practice 10/24/20 documented as of this encounter
--- OUTSIDE RECORDS SUMMARY | 2025-04-23 11:54 | XMS_ITS | Encounter Summary ---
Author Organization [facility] Address [address] [place] [address] Care Team Providers Care Forensic Ballistics Expert Name Role Phone Radha Cowan MD Primary Care Provider Encounter Details Date Type Department Care Team (Latest Contact Info) Description 06/26/1999 Outpatient Historical [facility] Corey Burkett, Augusto Tang MD [facility] [place] [address] Esophageal reflux (Primary Dx); Headache(784.0); Insomnia with sleep apnea, unspecified; Need for prophylactic vaccination against Streptococcus pneumoniae (pneumococcus) Social History Tobacco Use Types Packs/Day Years Used Date Smoking Tobacco: Never Assessed Comments Unknown Sex and Gender Information Value Date Recorded Sex Assigned at Not on file Legal Sex Female 3:33 AM SHUTTLE ROUTE VEHICLE OPERATOR Gender Identity Not on file Sexual Orientation Not on file documented as of this encounter Plan of Treatment Not on file documented as of this encounter Visit Diagnoses Diagnosis Esophageal reflux- Primary Headache(784.0) Headache Insomnia with sleep apnea, unspecified Need for prophylactic vaccination against Streptococcus pneumoniae (pneumococcus) Need for prophylactic vaccination against streptococcus pneumoniae (pneumococcus) documented in this encounter Additional Health Concerns Infection Onset Date Last Indicated Resolved Time R/O COVID-19 05/16/2020 05/16/2020 05/18/2020 12:3 1 AM CDT R/O COVID-19 07/25/2020 07/25/2020 07/27/2020 5:01 AM SHUTTLE ROUTE VEHICLE OPERATOR R/O COVID-19 09/30/2020 09/30/2020 09/30/2020 7:23 PM SHUTTLE ROUTE VEHICLE OPERATOR documented as of this encounter Care Teams Forensic Ballistics Expert Relationship Specialty Start Date End Date Radha Cowan MD [address] [phone] PCP - General Family Practice 10/24/20 documented as of this encounter
--- OUTSIDE RECORDS SUMMARY | 2025-04-23 11:54 | XMS_ITS | Encounter Summary ---
Author Organization [facility] Address [address] [place] [address] Care Team Providers Care Cuff Presser Name Role Phone Radha Cowan MD Primary Care Provider Encounter Details Date Type Department Care Team (Latest Contact Info) Description 07/05/2001 Outpatient Historical [facility] Augusto Nicole Jr., MD [address] [place] [phone] VACCINE FOR INFLUENZA (Primary Dx) Social History Tobacco Use Types Packs/Day Years Used Date Smoking Tobacco: Never Assessed Comments Unknown Sex and Gender Information Value Date Recorded Sex Assigned at Not on file Legal Sex Female 3:33 AM MANAGER WINTER Gender Identity Not on file Sexual Orientation Not on file documented as of this encounter Plan of Treatment Not on file documented as of this encounter Visit Diagnoses Diagnosis Need vaccination-viral disease- Primary Need for prophylactic vaccination and inoculation against other viral diseases documented in this encounter Additional Health Concerns Infection Onset Date Last Indicated Resolved Time R/O COVID-19 05/16/2020 05/16/2020 05/18/2020 12:3 1 AM CDT R/O COVID-19 07/25/2020 07/25/2020 07/27/2020 5:01 AM MANAGER WINTER R/O COVID-19 09/30/2020 09/30/2020 09/30/2020 7:23 PM MANAGER WINTER documented as of this encounter Care Teams Cuff Presser Relationship Specialty Start Date End Date Radha Cowan MD [address] [facility] [address] [place] [phone] PCP - General Family Practice 10/24/20 documented as of this encounter
--- OUTSIDE RECORDS SUMMARY | 2025-04-23 11:54 | XMS_ITS | Encounter Summary ---
Author Organization [facility] Address [address] Charlesn: [place] [address] Care Team Providers Care Colorer Hides And Skins Name Role Phone Radha Cowan MD Primary Care Provider [phone] Encounter Details Date Type Department Care Team (Late st Contact Info) Description 10/13/2001 Outpatient Historical Augusto Nicole Jr., MD [address] [place] [phone] Social History Tobacco Use Types Packs/Day Years Used Date Smoking Tobacco: Never Assessed Comments Unknown Sex and Gender Information Value Date Recorded Sex Assigned at Not on file Legal Sex Female 3:33 AM RENTAL CAR DELIVERER Gender Identity Not on file Sexual Orientation Not on file documented as of this encounter Plan of Treatment Not on file documented as of this encounter Visit Diagnoses Not on filedocumented in this encounter Additional Health Concerns Infection Onset Date Last Indicated Resolved Time R/O COVID-19 05/16/2020 05/16/2020 05/18/2020 12:3 1 AM CDT R/O COVID-19 07/25/2020 07/25/2020 07/27/2020 5:01 AM RENTAL CAR DELIVERER R/O COVID-19 09/30/2020 09/30/2020 09/30/2020 7:23 PM RENTAL CAR DELIVERER documented as of this encounter Care Teams Colorer Hides And Skins Relationship Specialty Start Date End Date Radha Cowan MD [address] [place] [address] PCP - General Family Practice 10/24/20 documented as of this encounter
--- OUTSIDE RECORDS SUMMARY | 2025-04-23 11:54 | XMS_ITS | Encounter Summary ---
Author Organization [facility] Address [address] [place] [address] Care Team Providers Care Urgent Care Technician Name Role Phone Radha Cowan MD Primary Care Provider [phone] Encounter Details Date Type Department Care Team (Latest Contact Info) Description 12/16/2000 Outpatient Historical [facility] Augusto Nicole Jr., MD [address] [place] [phone] Headache(784.0) (Primary Dx); Mitral valve disorder Social History Tobacco Use Types Packs/Day Years Used Date Smoking Tobacco: Never Assessed Comments Unknown Sex and Gender Information Value Date Recorded Sex Assigned at Not on file Legal Sex Female 3:33 AM BRAIDER TENDER Gender Identity Not on file Sexual Orientation Not on file documented as of this encounter Plan of Treatment Not on file documented as of this encounter Visit Diagnoses Diagnosis Headache(784.0)- Primary Headache Mitral valve disorder Mitral valve disorders documented in this encounter Additional Health Concerns Infection Onset Date Last Indicated Resolved Time R/O COVID-19 05/16/2020 05/16/2020 05/18/2020 12:3 1 AM CDT R/O COVID-19 07/25/2020 07/25/2020 07/27/2020 5:01 AM BRAIDER TENDER R/O COVID-19 09/30/2020 09/30/2020 09/30/2020 7:23 PM BRAIDER TENDER documented as of this encounter Care Teams Urgent Care Technician Relationship Specialty Start Date End Date Radha Cowan MD [address] [phone] PCP - General Family Practice 10/24/20 documented as of this encounter
--- OUTSIDE RECORDS SUMMARY | 2025-04-23 11:54 | XMS_ITS | Encounter Summary ---
Author Organization [facility] Address [address] [place] [address] Care Team Providers Care Skein Bander Name Role Phone Radha Cowan MD Primary Care Provider [phone] Encounter Details Date Type Department Care Team (Latest Contact Info) Description 12/28/2001 Outpatient Historical [facility] Augusto Nicole Jr., MD [address] [place] [phone] ABN BLOOD CHEMISTRY NEC (Primary Dx) Social History Tobacco Use Types Packs/Day Years Used Date Smoking Tobacco: Never Assessed Comments Unknown Sex and Gender Information Value Date Recorded Sex Assigned at Not on file Legal Sex Female 3:33 AM OPTOMETRY DOCTOR Gender Identity Not on file Sexual Orientation Not on file documented as of this encounter Plan of Treatment Not on file documented as of this encounter Visit Diagnoses Diagnosis Other abnormal blood chemistry- Primary documented in this encounter Additional Health Concerns Infection Onset Date Last Indicated Resolved Time R/O COVID-19 05/16/2020 05/16/2020 05/18/2020 12:3 1 AM CDT R/O COVID-19 07/25/2020 07/25/2020 07/27/2020 5:01 AM OPTOMETRY DOCTOR R/O COVID-19 09/30/2020 09/30/2020 09/30/2020 7:23 PM OPTOMETRY DOCTOR documented as of this encounter Care Teams Skein Bander Relationship Specialty Start Date End Date Radha Cowan MD [address] [place] [address] PCP - General Family Practice 10/24/20 documented as of this encounter
--- OUTSIDE RECORDS SUMMARY | 2025-04-23 11:54 | XMS_ITS | Encounter Summary ---
Author Organization [facility] Address [address] [place] [address] Care Team Providers Care Painter And Decorator Name Role Phone Radha Cowan MD Primary Care Provider Encounter Details Date Type Department Care Team (Latest Contact Info) Description 08/28/1998 Outpatient Historical [facility] Augusto Nicole Jr., MD [address] [place] [phone] Attention to dressings and sutures (Primary Dx); Dermatophytosis of foot Social History Tobacco Use Types Packs/Day Years Used Date Smoking Tobacco: Never Assessed Comments Unknown Sex and Gender Information Value Date Recorded Sex Assigned at Not on file Legal Sex Female 3:33 AM HYDRO MECHANIC Gender Identity Not on file Sexual Orientation Not on file documented as of this encounter Plan of Treatment Not on file documented as of this encounter Visit Diagnoses Diagnosis Attention to dressings and sutures- Primary Dermatophytosis of foot documented in this encounter Additional Health Concerns Infection Onset Date Last Indicated Resolved Time R/O COVID-19 05/16/2020 05/16/2020 05/18/2020 12:3 1 AM CDT R/O COVID-19 07/25/2020 07/25/2020 07/27/2020 5:01 AM HYDRO MECHANIC R/O COVID-19 09/30/2020 09/30/2020 09/30/2020 7:23 PM HYDRO MECHANIC documented as of this encounter Care Teams Painter And Decorator Relationship Specialty Start Date End Date Radha Cowan MD [address] [phone] PCP - General Family Practice 10/24/20 documented as of this encounter
--- OUTSIDE RECORDS SUMMARY | 2025-04-23 11:54 | XMS_ITS | Encounter Summary ---
Author Organization [facility] Address [address] [facility] [place] [address] Care Team Providers Care Regional Truck Driver Name Role Phone Radha Cowan MD Primary Care Provider [phone] Encounter Details Date Type Department Care Team (Late st Contact Info) Description 01/24/2004 Inpatient Historical [facility] [address] [place] [address] [place] MD [facility] [address] [place] [address] [id number] Augusto Wright III, MD NO ADDRESS ON FILE RECURR DEPR PSYCHOS-MOD (CMS/HCC) (Primary Dx) Social History Tobacco Use Types Packs/Day Years Used Date Smoking Tobacco: Never Assessed Comments Unknown Sex and Gender Information Value Date Recorded Sex Assigned at Not on file Legal Sex Female 3:33 AM WEBSITE PROJECT MANAGER Gender Identity Not on file Sexual Orientation Not on file documented as of this encounter Plan of Treatment Not on file documented as of this encounter Visit Diagnoses Diagnosis Major depressive disorder, recurrent episode, moderate (CMS/HCC)- Primary Major depressive disorder, recurrent episode, moderate documented in this encounter Additional Health Concerns Infection Onset Date Last Indicated Resolved Time R/O COVID-19 05/16/2020 05/16/2020 05/18/2020 12:3 1 AM CDT R/O COVID-19 07/25/2020 07/25/2020 07/27/2020 5:01 AM WEBSITE PROJECT MANAGER R/O COVID-19 09/30/2020 09/30/202009/3009/30/2020 7:23 PM WEBSITE PROJECT MANAGER documented as of this encounter Care Teams Regional Truck Driver Relationship Specialty Start Date End Date Radha Cowan MD [address] [phone] PCP - General Family Practice 10/24/20 documented as of this encounter
--- OUTSIDE RECORDS SUMMARY | 2025-04-23 11:54 | XMS_ITS | Encounter Summary ---
Author Organization [facility] Address [address] Charlesn: [place] [address] Care Team Providers Care Seaming Machine Operator Name Role Phone Radha Cowan MD Primary Care Provider [phone] Encounter Details Date Type Department Care Team (Late st Contact Info) Description 01/12/2001 Outpatient Historical Augusto Nicole Jr., MD [address] [place] [phone] Social History Tobacco Use Types Packs/Day Years Used Date Smoking Tobacco: Never Assessed Comments Unknown Sex and Gender Information Value Date Recorded Sex Assigned at Not on file Legal Sex Female 3:33 AM ASSEMBLER CATERPILLAR SPIDER Gender Identity Not on file Sexual Orientation Not on file documented as of this encounter Plan of Treatment Not on file documented as of this encounter Visit Diagnoses Not on filedocumented in this encounter Additional Health Concerns Infection Onset Date Last Indicated Resolved Time R/O COVID-19 05/16/2020 05/16/2020 05/18/2020 12:3 1 AM CDT R/O COVID-19 07/25/2020 07/25/2020 07/27/2020 5:01 AM ASSEMBLER CATERPILLAR SPIDER R/O COVID-19 09/30/2020 09/30/2020 09/30/2020 7:23 PM ASSEMBLER CATERPILLAR SPIDER documented as of this encounter Care Teams Seaming Machine Operator Relationship Specialty Start Date End Date Radha Cowan MD [address] [facility] [address] [place] [phone] PCP - General Family Practice 10/24/20 documented as of this encounter
--- OUTSIDE RECORDS SUMMARY | 2025-04-23 11:54 | XMS_ITS | Encounter Summary ---
Author Organization [facility] Address [address] [place] [address] Care Team Providers Care Moisture Machine Tender Name Role Phone Radha Cowan MD Primary Care Provider Encounter Details Date Type Department Care Team (Latest Contact Info) Description 01/12/2001 Outpatient Historical [facility] Augusto Nicole Jr., MD [address] [place] [phone] Pure hypercholesterolem (Primary Dx); Chest pain, unspecified; Screening examination for pulmonary tuberculosis Social History Tobacco Use Types Packs/Day Years Used Date Smoking Tobacco: Never Assessed Comments Unknown Sex and Gender Information Value Date Recorded Sex Assigned at Not on file Legal Sex Female 3:33 AM JOCKEY AGENT Gender Identity Not on file Sexual Orientation Not on file documented as of this encounter Plan of Treatment Not on file documented as of this encounter Visit Diagnoses Diagnosis Pure hypercholesterolem- Primary Pure hypercholesterolemia Chest pain, unspecified Screening examination for pulmonary tuberculosis documented in this encounter Additional Health Concerns Infection Onset Date Last Indicated Resolved Time R/O COVID-19 05/16/2020 05/16/2020 05/18/2020 12:3 1 AM CDT R/O COVID-19 07/25/2020 07/25/2020 07/27/2020 5:01 AM JOCKEY AGENT R/O COVID-19 09/30/2020 09/30/2020 09/30/2020 7:23 PM JOCKEY AGENT documented as of this encounter Care Teams Moisture Machine Tender Relationship Specialty Start Date End Date Radha Cowan MD [address] [phone] PCP - General Family Practice 10/24/20 documented as of this encounter
--- OUTSIDE RECORDS SUMMARY | 2025-04-23 11:54 | XMS_ITS | Encounter Summary ---
Author Organization [facility] Address [address] [place] [address] Care Team Providers Care Recorder Gravity Prospecting Name Role Phone Radha Cowan MD Primary Care Provider Encounter Details Date Type Department Care Team (Latest Contact Info) Description 12/14/2002 Outpatient Historical [facility] Augusto Nicole Jr., MD [address] [place] [phone] DIABETES UNCOMPL ADULT-TYPE II ([facility]) (Primary Dx); ACUTE SINUSITIS NOS; PULMONARY EOSINOPHILIA Social History Tobacco Use Types Packs/Day Years Used Date Smoking Tobacco: Never Assessed Comments Unknown Sex and Gender Information Value Date Recorded Sex Assigned at Not on file Legal Sex Female 3:33 AM FOOD SCIENCE PROFESSOR Gender Identity Not on file Sexual Orientation Not on file documented as of this encounter Plan of Treatment Not on file documented as of this encounter Visit Diagnoses Diagnosis Type II or unspecified type diabetes mellitus without mention of complication, not stated as uncontrolled- Primary Acute sinusitis, unspecified Pulmonary eosinophilia documented in this encounter Additional Health Concerns Infection Onset Date Last Indicated Resolved Time R/O COVID-19 05/16/2020 05/16/2020 05/18/2020 12:3 1 AM CDT R/O COVID-19 07/25/2020 07/25/2020 07/27/2020 5:01 AM FOOD SCIENCE PROFESSOR R/O COVID-19 09/30/2020 09/30/2020 09/30/2020 7:23 PM FOOD SCIENCE PROFESSOR documented as of this encounter Care Teams Recorder Gravity Prospecting Relationship Specialty Start Date End Date Radha Cowan MD [address] [phone] PCP - General Family Practice 10/24/20 documented as of this encounter
--- OUTSIDE RECORDS SUMMARY | 2025-04-23 11:54 | XMS_ITS | Encounter Summary ---
Author Organization [facility] Address [address] Charlesn: [place] [address] Care Team Providers Care Keypunch Operator Name Role Phone Radha Cowan MD Primary Care Provider [phone]- [phone] Encounter Details Date Type Department Care Team (Late st Contact Info) Description 12/05/2001 Outpatient Historical Augusto Nicole Jr., MD [address] [place] [phone] Social History Tobacco Use Types Packs/Day Years Used Date Smoking Tobacco: Never Assessed Comments Unknown Sex and Gender Information Value Date Recorded Sex Assigned at Not on file Legal Sex Female 3:33 AM CHARGING OPERATOR Gender Identity Not on file Sexual Orientation Not on file documented as of this encounter Plan of Treatment Not on file documented as of this encounter Visit Diagnoses Not on filedocumented in this encounter Additional Health Concerns Infection Onset Date Last Indicated Resolved Time R/O COVID-19 05/16/2020 05/16/2020 05/18/2020 12:3 1 AM CDT R/O COVID-19 07/25/2020 07/25/2020 07/27/2020 5:01 AM CHARGING OPERATOR R/O COVID-19 09/30/2020 09/30/2020 09/30/2020 7:23 PM CHARGING OPERATOR documented as of this encounter Care Teams Keypunch Operator Relationship Specialty Start Date End Date Radha Cowan MD [address] [place] [phone] PCP - General Family Practice 10/24/20 documented as of this encounter
--- OUTSIDE RECORDS SUMMARY | 2025-04-23 11:54 | XMS_ITS | Clinical Summary ---
Author Organization [facility] Address [address] [place] [address] Care Team Providers Care Electrical Controls Assembler Name Role Phone Radha Xiong MD Primary Care Provider [phone] [phone] Allergies Active Allergy Reactions Criticality Noted Date Comments Codeine Dizziness Low 03/22/2024 Or lightheaded Ketorolac Dizziness Low 03/22/2024 Lightheaded or Melatonin Other (See comments) Low 03/22/2024 Sick to her stomach Medications atorvastatin (LIPITOR) 10 mg tablet Take 1 tablet (10 mg total) by mouth daily 01/05/20 24 Active amLODIPine (NORVASC) 5 mg tablet Take 1 tablet (5 mg total) by mouth daily 01/25/20 24 Active bumetanide (BUMEX) 1 mg tablet Take 1 tablet (1 mg total) by mouth daily 01/20/20 24 Active docusate sodium (COLACE) 100 mg capsule Take 1 capsule (100 mg total) by mouth nightly 03/16/20 24 Active doxepin (SINEquan) 25 mg capsule Take 1 capsule (25 mg total) by mouth daily 01/29/20 24 Active Trulicity 3 mg/0.5 mL pen injector Inject 0.5 mL (3 mg total) under the skin once a week Mornings 03/06/20 24 Active levothyroxine (SYNTHROID) 25 mcg tablet Take 1 tablet (25 mcg total) by mouth entrepreneur before breakfast 01/05/20 24 Active losartan (COZAAR) 100 mg tablet Take 1 tablet (100 mg total) by mouth daily 12/31/19 24 Active metoprolol tartrate (LOPRESSOR) 25 mg immediate release tablet Take 1 tablet (25 mg total) by mouth daily 03/16/[address] (PROTONIX) 20 mg EC tablet Take 1 tablet (20 mg total) by mouth daily 01/27/20 24 Active potassium chloride ER 20 mEq CR tablet Take 1 tablet (20 mEq total) by mouth daily for 90 days 01/14/20 24 Active aspirin 81 mg enteric coated tablet Take 1 tablet (81 mg total) by mouth daily Active cholecalciferol (VITAMIN D-3) 5,000 unit capsule Take 1 capsule (5,000 Units total) by mouth daily Active docusate sodium (COLACE) 100 mg capsuleIndication s:constipation Take 2 capsules (200 mg total) by mouth daily Active loratadine (CLARITIN) 10 mg tablet Take 1 tablet (10 mg total) by mouth daily Active magnesium oxide 500 mg capsule Take 500 mg by mouth daily Active ubrogepant (UBRELVY) 50 mg tablet Take 1 tablet (50 mg total) by mouth daily as needed for migraine Active ipratropium-albut Ha (DUO-NEB) 0.5-2.5 mg/3 mL nebulizer solutionIndicatio ns:Chronic Obstructive Pulmonary Disease with Bronchospasms Take 3 mL by nebulization every 6 (six) hours Active venlafaxine XR (EFFEXOR-XR) 75 mg 24 hr capsule Take 1 capsule (75 mg total) by mouth daily with breakfast 30 capsule 03/29/20 24 Active Active Problems Problem Noted Date Diagnosed Date MDD (major depressive disord er), recurrent severe, without psychosis 03/22/2024 Social History Tobacco Use Types Packs/Day Years Used Date Smoking Tobacco: Former Cigarettes Q uit: 03/22/1988 Smokeless Tobacco: Never Tobacco Cessation:Counseling Given: Not Answered Personal Safety Answer Date Recorded Have you ever been in or are you currently in a harmful physical or emotional relationship or is someone making you feel afraid or unsafe? Yes 03/22/2024 Comments No Sex and Gender Information Value Date Recorded Sex Assigned at Not on file Legal Sex Female 5:15 PM CDT Gender Identity Not on file Sexual Orientation Not on file Obstetrics History Last Filed Vital Signs Vital Sign Reading Time Taken Comments Blood Pressure 131/84 03/29/2024 7:35 AM CDT Pulse 84 03/29/2024 7:35 AM CDT Temperature 36.6 C (97.8 F) 03/29/2024 7:35 AM CDT Respiratory Rate 18 03/29/2024 7:35 AM CDT Oxygen Saturation 98% 03/29/2024 7:35 AM CDT Inhaled Oxygen Concentration - - Weight 116.4 kg (256 lb 9.6 oz) 03/25/2024 8:15 PM CDT Height 160 cm (5' 3 ) 03/22/2024 9:33 PM CDT Body Mass Index 45.45 03/22/2024 9:33 PM CDT Plan of Treatment Health Maintenance Due Date Last Done Comments Breast Cancer Screening-Mammogram 1956 Colon Cancer Screening-Colonoscopy 1955 Hepatitis C Screening 1955 Osteoporosis Screening-Bone Density Scan 1955 Hepatitis B Screening 02/20/1974 Well Visit 65+ 02/20/2021 DTaP/Tdap/Td Vaccine (2 - Td or Tdap) 08/25/2022 08/25/2012 Depression Screening 03/29/2025 03/29/2024 Fall Risk Assessment 03/29/2025 03/29/2024 Influenza Vaccine (#1) 2025 3, 07/19/2022, 06/24/2020, Additional history exists Zoster Vaccine Completed 08/10/2022, 07/08, 05/31/2018 Pneumococcal vaccine 65+ Completed 023, 05/31/2018, 09/05/2012 Insurance [place] [employer] PPO Advance Directives For more information, please contact: [phone] * Full Code (Latest Code Status on File) Date Activated Date Inactivated Comments 03/22/2024 10:33 PM 03/29/2024 5:09 PM Care Teams Electrical Controls Assembler Relationship Specialty Start Date End Date Radha Xiong MD [address] [place] [address] PCP - General Family Medicine 03/22/24
--- OUTSIDE RECORDS SUMMARY | 2025-04-23 11:54 | XMS_ITS | Encounter Summary ---
Author Organization [facility] Address [address] [place] [address] Care Team Providers Care Machine Farmworker Name Role Phone Radha Cowan MD Primary Care Provider Encounter Details Date Type Department Care Team (Latest Contact Info) Description 12/06/1998 Outpatient Historical [facility] Augusto Nicole Jr., MD [address] [place] [phone] Dietary surveil/personal financial counselor (Primary Dx) Social History Tobacco Use Types Packs/Day Years Used Date Smoking Tobacco: Never Assessed Comments Unknown Sex and Gender Information Value Date Recorded Sex Assigned at Not on file Legal Sex Female 3:33 AM APPRENTICE STYLIST Gender Identity Not on file Sexual Orientation Not on file documented as of this encounter Plan of Treatment Not on file documented as of this encounter Visit Diagnoses Diagnosis Dietary surveil/personal financial counselor- Primary Dietary surveillance and counseling documented in this encounter Additional Health Concerns Infection Onset Date Last Indicated Resolved Time R/O COVID-19 05/16/2020 05/16/2020 05/18/2020 12:3 1 AM CDT R/O COVID-19 07/25/2020 07/25/2020 07/27/2020 5:01 AM APPRENTICE STYLIST R/O COVID-19 09/30/2020 09/30/2020 09/30/2020 7:23 PM APPRENTICE STYLIST documented as of this encounter Care Teams Machine Farmworker Relationship Specialty Start Date End Date Radha Cowan MD [address] [facility] [address] [place] [address] PCP - General Family Practice 10/24/20 documented as of this encounter
--- OUTSIDE RECORDS SUMMARY | 2025-04-23 11:54 | XMS_ITS | Encounter Summary ---
Author Organization [facility] Address [address] [place] [address] Care Team Providers Care Medical Facilities Section Director Name Role Phone Radha Cowan MD Primary Care Provider [phone]- [phone] Encounter Details Date Type Department Care Team (Latest Contact Info) Description 02/16/2002 Outpatient Historical [facility] Augusto Nicole Jr., MD [address] [place] [phone] ANEMIA NOS (Primary Dx) Social History Tobacco Use Types Packs/Day Years Used Date Smoking Tobacco: Never Assessed Comments Unknown Sex and Gender Information Value Date Recorded Sex Assigned at Not on file Legal Sex Female 3:33 AM WATER METER MECHANIC Gender Identity Not on file Sexual Orientation Not on file documented as of this encounter Plan of Treatment Not on file documented as of this encounter Visit Diagnoses Diagnosis Anemia, unspecified- Primary documented in this encounter Additional Health Concerns Infection Onset Date Last Indicated Resolved Time R/O COVID-19 05/16/2020 05/16/2020 05/18/2020 12:3 1 AM CDT R/O COVID-19 07/25/2020 07/25/2020 07/27/2020 5:01 AM WATER METER MECHANIC R/O COVID-19 09/30/2020 09/30/2020 09/30/2020 7:23 PM WATER METER MECHANIC documented as of this encounter Care Teams Medical Facilities Section Director Relationship Specialty Start Date End Date Radha Cowan MD [address] [place] [phone] PCP - General Family Practice 10/24/20 documented as of this encounter
--- OUTSIDE RECORDS SUMMARY | 2025-04-23 11:54 | XMS_ITS | Encounter Summary ---
Author Organization [facility] Address [address] [place] [address] Care Team Providers Care Metal Fabricator Name Role Phone Radha Cowan MD Primary Care Provider Encounter Details Date Type Department Care Team (Latest Contact Info) Description 03/15/2000 Outpatient Historical [facility] Corey Burkett, Augusto Tang MD [address] [place] [phone] Unspecified urinary incontinence (Primary Dx); Screening for malignant neoplasm of the cervix; Unspecified hemorrhoids without mention of complication; Screening for malignant neoplasm of the rectum Social History Tobacco Use Types Packs/Day Years Used Date Smoking Tobacco: Never Assessed Comments Unknown Sex and Gender Information Value Date Recorded Sex Assigned at Not on file Legal Sex Female 3:33 AM MANAGER TRUCK Gender Identity Not on file Sexual Orientation Not on file documented as of this encounter Plan of Treatment Not on file documented as of this encounter Visit Diagnoses Diagnosis Unspecified urinary incontinence- Primary Screening for malignant neoplasm of the cervix Unspecified hemorrhoids without mention of complication Screening for malignant neoplasm of the rectum documented in this encounter Additional Health Concerns Infection Onset Date Last Indicated Resolved Time R/O COVID-19 05/16/2020 05/16/2020 05/18/2020 12:3 1 AM CDT R/O COVID-19 07/25/2020 07/25/2020 07/27/2020 5:01 AM MANAGER TRUCK R/O COVID-19 09/30/2020 09/30/2020 09/30/2020 7:23 PM MANAGER TRUCK documented as of this encounter Care Teams Metal Fabricator Relationship Specialty Start Date End Date Radha Cowan MD [address] [phone] PCP - General Family Practice 10/24/20 documented as of this encounter
--- OUTSIDE RECORDS SUMMARY | 2025-04-23 11:54 | XMS_ITS | Encounter Summary ---
Author Organization [facility] Address [address] [place] [address] Care Team Providers Care Group Marketing Vp Name Role Phone Radha Cowan MD Primary Care Provider Encounter Details Date Type Department Care Team (Latest Contact Info) Description 02/19/2003 Outpatient Historical [facility] Corey Burkett, Augusto Tang MD [address] [place] [address] DIABETES UNCOMPL ADULT-TYPE II (CMS/HCC) (Primary Dx); MIGRAINE NOS W/O MENTN INTRACTABLE; Pure hypercholesterolem; DERMATOPHYTOSIS OF NAIL Social History Tobacco Use Types Packs/Day Years Used Date Smoking Tobacco: Never Assessed Comments Unknown Sex and Gender Information Value Date Recorded Sex Assigned at Not on file Legal Sex Female 3:33 AM STUDENT COUNSELLOR Gender Identity Not on file Sexual Orientation Not on file documented as of this encounter Plan of Treatment Not on file documented as of this encounter Visit Diagnoses Diagnosis Type II or unspecified type diabetes mellitus without mention of complication, not stated as uncontrolled- Primary Migraine, unspecified, without mention of intractable migraine without mention of status migrainosus Pure hypercholesterolem Pure hypercholesterolemia Dermatophytosis of nail documented in this encounter Additional Health Concerns Infection Onset Date Last Indicated Resolved Time R/O COVID-19 05/16/2020 05/16/2020 05/18/2020 12:3 1 AM CDT R/O COVID-19 07/25/2020 07/25/2020 07/27/2020 5:01 AM STUDENT COUNSELLOR R/O COVID-19 09/30/2020 09/30/2020 09/30/2020 7:23 PM STUDENT COUNSELLOR documented as of this encounter Care Teams Group Marketing Vp Relationship Specialty Start Date End Date Radha Cowan MD [address] [phone] PCP - General Family Practice 10/24/20 documented as of this encounter
--- OUTSIDE RECORDS SUMMARY | 2025-04-23 11:54 | XMS_ITS | Encounter Summary ---
Author Organization [facility] Address [address] [place] [address] Care Team Providers Care Traveling Sales Executive Name Role Phone Radha Cowan MD Primary Care Provider Encounter Details Date Type Department Care Team (Latest Contact Info) Description 04/19/2003 Outpatient Historical [facility] Augusto Nicole Jr., MD [address] [place] [phone] HYPERTENSION NOS (Primary Dx) Social History Tobacco Use Types Packs/Day Years Used Date Smoking Tobacco: Never Assessed Comments Unknown Sex and Gender Information Value Date Recorded Sex Assigned at Not on file Legal Sex Female 3:33 AM OIL WELL LOGGER Gender Identity Not on file Sexual Orientation Not on file documented as of this encounter Plan of Treatment Not on file documented as of this encounter Visit Diagnoses Diagnosis Unspecified essential hypertension- Primary documented in this encounter Additional Health Concerns Infection Onset Date Last Indicated Resolved Time R/O COVID-19 05/16/2020 05/16/2020 05/18/2020 12:3 1 AM CDT R/O COVID-19 07/25/2020 07/25/2020 07/27/2020 5:01 AM OIL WELL LOGGER R/O COVID-19 09/30/2020 09/30/2020 09/30/2020 7:23 PM OIL WELL LOGGER documented as of this encounter Care Teams Traveling Sales Executive Relationship Specialty Start Date End Date Radha Cowan MD [address] [facility] [address] [place] [phone] PCP - General Family Practice 10/24/20 documented as of this encounter
--- OUTSIDE RECORDS SUMMARY | 2025-04-23 11:54 | XMS_ITS | Encounter Summary ---
Author Organization [facility] Address [address] [place] [address] Care Team Providers Care Superintendent Construction Name Role Phone Radha Cowan MD Primary Care Provider [phone] Encounter Details Date Type Department Care Team (Latest Contact Info) Description 07/10/1998 Outpatient Historical [facility] Augusto Nicole Jr., MD [facility] [place] [address] Headache(784.0) (Primary Dx); Depressive disorder, not elsewhere classified Social History Tobacco Use Types Packs/Day Years Used Date Smoking Tobacco: Never Assessed Comments Unknown Sex and Gender Information Value Date Recorded Sex Assigned at Not on file Legal Sex Female 3:33 AM GLOBAL DIRECTOR AIR AND CLIMATE CHANGE Gender Identity Not on file Sexual Orientation Not on file documented as of this encounter Plan of Treatment Not on file documented as of this encounter Visit Diagnoses Diagnosis Headache(784.0)- Primary Headache Depressive disorder, not elsewhere classified documented in this encounter Additional Health Concerns Infection Onset Date Last Indicated Resolved Time R/O COVID-19 05/16/2020 05/16/2020 05/18/2020 12:3 1 AM CDT R/O COVID-19 07/25/2020 07/25/2020 07/27/2020 5:01 AM GLOBAL DIRECTOR AIR AND CLIMATE CHANGE R/O COVID-19 09/30/2020 09/30/2020 09/30/2020 7:23 PM GLOBAL DIRECTOR AIR AND CLIMATE CHANGE documented as of this encounter Care Teams Superintendent Construction Relationship Specialty Start Date End Date Radha Cowan MD [address] [phone] PCP - General Family Practice 10/24/20 documented as of this encounter
--- OUTSIDE RECORDS SUMMARY | 2025-04-23 11:54 | XMS_ITS | Encounter Summary ---
Author Organization [facility] Address [address] [place] [address] Care Team Providers Care Pediatric Audiologist Name Role Phone Radha Cowan MD Primary Care Provider [phone]- [phone] Encounter Details Date Type Department Care Team (Latest Contact Info) Description 11/06/2020 Ancillary Orders [facility] [address] [facility] [address] [place] [address] Juancarlos Sapp PA NO ADDRESS ON FILE Inconclusive mammography Social History Tobacco Use Types Packs/Day Years Used Date Smoking Tobacco: Some Days Cigarettes 1 20 Smokeless Tobacco: Never Alcohol Use Standard Drinks/Week Comments No 0 (1 standard drink = 0.6 oz pur e alcohol) Comments No Sex and Gender Information Value Date Recorded Sex Assigned at Not on file Legal Sex Female 3:33 AM LIFE SCIENCE RESEARCH ASSISTANT Gender Identity Not on file Sexual Orientation Not on file Occupation Industry Job Start Date Job End Date Not on file Not on file Not on file Not on file COVID-19 Exposure Response Date Recorded In the last month, have you been in contact with someone who was confirmed or suspected to have Coronavirus / COVID-19? No / Unsure 11/04/2020 8:57 AM LIFE SCIENCE RESEARCH ASSISTANT documented as of this encounter Plan of Treatment Not on file documented as of this encounter Visit Diagnoses Diagnosis Inconclusive mammography Inconclusive mammogram documented in this encounter Care Teams Pediatric Audiologist Relationship Specialty Start Date End Date Radha Cowan MD [address] [place] [phone] PCP - General Family Practice 10/24/20 documented as of this encounter
--- OUTSIDE RECORDS SUMMARY | 2025-04-23 11:54 | XMS_ITS | Encounter Summary ---
Author Organization [facility] Address [address]: [place] [address] Care Team Providers Care Learning Development Specialist Name Role Phone Radha Cowan MD Primary Care Provider [phone]- [phone] Encounter Details Date Type Department Care Team (Late st Contact Info) Description 12/16/2000 Outpatient Historical Augusto Nicole Jr., MD [address] [place] [phone] Social History Tobacco Use Types Packs/Day Years Used Date Smoking Tobacco: Never Assessed Comments Unknown Sex and Gender Information Value Date Recorded Sex Assigned at Not on file Legal Sex Female 3:33 AM MOLD MAKING PLASTICS SHEETS SUPERVISOR Gender Identity Not on file Sexual Orientation Not on file documented as of this encounter Plan of Treatment Not on file documented as of this encounter Visit Diagnoses Not on filedocumented in this encounter Additional Health Concerns Infection Onset Date Last Indicated Resolved Time R/O COVID-19 05/16/2020 05/16/2020 05/18/2020 12:3 1 AM CDT R/O COVID-19 07/25/2020 07/25/2020 07/27/2020 5:01 AM MOLD MAKING PLASTICS SHEETS SUPERVISOR R/O COVID-19 09/30/2020 09/30/2020 09/30/2020 7:23 PM MOLD MAKING PLASTICS SHEETS SUPERVISOR documented as of this encounter Care Teams Learning Development Specialist Relationship Specialty Start Date End Date Radha Cowan MD [address] [place] [phone] PCP - General Family Practice 10/24/20 documented as of this encounter
--- OUTSIDE RECORDS SUMMARY | 2025-04-23 11:54 | XMS_ITS | Encounter Summary ---
Author Organization [facility] Address [address] [place]: [place] [address] Care Team Providers Care Information Management Manager Name Role Phone Radha Cowan MD Primary Care Provider [phone]- [phone] Encounter Details Date Type Department Care Team (Late st Contact Info) Description 03/17/2000 Outpatient Historical Augusto Nicole Jr., MD [address] [place] [phone] Social History Tobacco Use Types Packs/Day Years Used Date Smoking Tobacco: Never Assessed Comments Unknown Sex and Gender Information Value Date Recorded Sex Assigned at Not on file Legal Sex Female 3:33 AM MARKETING TRAFFIC MANAGER Gender Identity Not on file Sexual Orientation Not on file documented as of this encounter Plan of Treatment Not on file documented as of this encounter Visit Diagnoses Not on filedocumented in this encounter Additional Health Concerns Infection Onset Date Last Indicated Resolved Time R/O COVID-19 05/16/2020 05/16/2020 05/18/2020 12:3 1 AM CDT R/O COVID-19 07/25/2020 07/25/2020 07/27/2020 5:01 AM MARKETING TRAFFIC MANAGER R/O COVID-19 09/30/2020 09/30/2020 09/30/2020 7:23 PM MARKETING TRAFFIC MANAGER documented as of this encounter Care Teams Information Management Manager Relationship Specialty Start Date End Date Radha Cowan MD [address] [facility] [address] [place] [phone] PCP - General Family Practice 10/24/20 documented as of this encounter
--- OUTSIDE RECORDS SUMMARY | 2025-04-23 11:54 | XMS_ITS | Encounter Summary ---
Author Organization [facility] Address [address] [place]: [place] [address] Care Team Providers Care Fire Extinguisher Mechanic Name Role Phone Radha Cowan MD Primary Care Provider [phone]- [phone] Encounter Details Date Type Department Care Team (Late st Contact Info) Description 05/10/2002 Outpatient Historical Augusto Nicole Jr., MD [address] [place] [phone] Social History Tobacco Use Types Packs/Day Years Used Date Smoking Tobacco: Never Assessed Comments Unknown Sex and Gender Information Value Date Recorded Sex Assigned at Not on file Legal Sex Female 3:33 AM BAKELITE MOLDER Gender Identity Not on file Sexual Orientation Not on file documented as of this encounter Plan of Treatment Not on file documented as of this encounter Visit Diagnoses Not on filedocumented in this encounter Additional Health Concerns Infection Onset Date Last Indicated Resolved Time R/O COVID-19 05/16/2020 05/16/2020 05/18/2020 12:3 1 AM CDT R/O COVID-19 07/25/2020 07/25/2020 07/27/2020 5:01 AM BAKELITE MOLDER R/O COVID-19 09/30/2020 09/30/2020 09/30/2020 7:23 PM BAKELITE MOLDER documented as of this encounter Care Teams Fire Extinguisher Mechanic Relationship Specialty Start Date End Date Radha Cowan MD [address] [facility] [address] [place] [phone] PCP - General Family Practice 10/24/20 documented as of this encounter
--- OUTSIDE RECORDS SUMMARY | 2025-04-23 11:54 | XMS_ITS | Encounter Summary ---
Author Organization [facility] Address [address] [place] [address] Care Team Providers Care Riding Silks Custodian Name Role Phone Radha Cowan MD Primary Care Provider Encounter Details Date Type Department Care Team (Latest Contact Info) Description 04/10/2002 Outpatient Historical [facility] ToroHema MD [address] [address] ESOPHAGEAL REFLUX (Primary Dx); ABDOMINAL PAIN EPIGASTRIC Social History Tobacco Use Types Packs/Day Years Used Date Smoking Tobacco: Never Assessed Comments Unknown Sex and Gender Information Value Date Recorded Sex Assigned at Not on file Legal Sex Female 3:33 AM SPAGHETTI MACHINE OPERATOR Gender Identity Not on file Sexual Orientation Not on file documented as of this encounter Plan of Treatment Not on file documented as of this encounter Visit Diagnoses Diagnosis Esophageal reflux- Primary Abdominal pain, epigastric documented in this encounter Additional Health Concerns Infection Onset Date Last Indicated Resolved Time R/O COVID-19 05/16/2020 05/16/2020 05/18/2020 12:3 1 AM CDT R/O COVID-19 07/25/2020 07/25/2020 07/27/2020 5:01 AM SPAGHETTI MACHINE OPERATOR R/O COVID-19 09/30/2020 09/30/2020 09/30/2020 7:23 PM SPAGHETTI MACHINE OPERATOR documented as of this encounter Care Teams Riding Silks Custodian Relationship Specialty Start Date End Date Radha Cowan MD [address] [phone] PCP - General Family Practice 10/24/20 documented as of this encounter
--- OUTSIDE RECORDS SUMMARY | 2025-04-23 11:54 | XMS_ITS | Encounter Summary ---
Author Organization [facility] Address [address] [place] [address] Care Team Providers Care Hotel Superintendent Name Role Phone Rdaha Cowan MD Primary Care Provider [phone]- [phone] Encounter Details Date Type Department Care Team (Latest Contact Info) Description 02/20/1999 Outpatient Historical [facility] Corey Burkett, Augusto Tang MD [address] [place] [address] Vaginitis and vulvovaginitis, unspecified (Primary Dx); Bipolar I disorder, most recent episode (or current) unspecified (CMS/[facility], [facility]) Social History Tobacco Use Types Packs/Day Years Used Date Smoking Tobacco: Never Assessed Comments Unknown Sex and Gender Information Value Date Recorded Sex Assigned at Not on file Legal Sex Female 3:33 AM PROFESSOR OF ANTHROPOLOGY Gender Identity Not on file Sexual Orientation Not on file documented as of this encounter Plan of Treatment Not on file documented as of this encounter Visit Diagnoses Diagnosis Vaginitis and vulvovaginitis, unspecified- Primary Bipolar I disorder, most recent episode (or current) unspecified (CMS/HCC) Bipolar I disorder, most recent episode (or current) unspecified documented in this encounter Additional Health Concerns Infection Onset Date Last Indicated Resolved Time R/O COVID-19 05/16/2020 05/16/2020 05/18/2020 12:3 1 AM CDT R/O COVID-19 07/25/2020 07/25/2020 07/27/2020 5:01 AM PROFESSOR OF ANTHROPOLOGY R/O COVID-19 09/30/2020 09/30/20[address]/3009/30/2020 7:23 PM PROFESSOR OF ANTHROPOLOGY documented as of this encounter Care Teams Hotel Superintendent Relationship Specialty Start Date End Date Radha Cowan MD [address] [phone] PCP - General Family Practice 10/24/20 documented as of this encounter
--- OUTSIDE RECORDS SUMMARY | 2025-04-23 11:54 | XMS_ITS | Encounter Summary ---
Author Organization [facility] Address [address] [place] [address] Care Team Providers Care Associate Director Career Services Name Role Phone Radha Cowan MD Primary Care Provider [phone] Encounter Details Date Type Department Care Team (Latest Contact Info) Description 02/18/2001 Outpatient Historical [facility] Augusto Nicole Jr., MD [address] [place] [phone] Myalgia and myositis, unspecified (Primary Dx); Depressive disorder, not elsewhere classified Social History Tobacco Use Types Packs/Day Years Used Date Smoking Tobacco: Never Assessed Comments Unknown Sex and Gender Information Value Date Recorded Sex Assigned at Not on file Legal Sex Female 3:33 AM FORWARD AIR CONTROLLER/AIR OFFICER Gender Identity Not on file Sexual Orientation Not on file documented as of this encounter Plan of Treatment Not on file documented as of this encounter Visit Diagnoses Diagnosis Myalgia and myositis, unspecified- Primary Mylagia and myositis, unspecified Depressive disorder, not elsewhere classified documented in this encounter Additional Health Concerns Infection Onset Date Last Indicated Resolved Time R/O COVID-19 05/16/2020 05/16/2020 05/18/2020 12:3 1 AM CDT R/O COVID-19 07/25/2020 07/25/2020 07/27/2020 5:01 AM FORWARD AIR CONTROLLER/AIR OFFICER R/O COVID-19 09/30/2020 09/30/2020 09/30/2020 7:23 PM FORWARD AIR CONTROLLER/AIR OFFICER documented as of this encounter Care Teams Associate Director Career Services Relationship Specialty Start Date End Date Radha Cowan MD [address] [phone] PCP - General Family Practice 10/24/20 documented as of this encounter
--- OUTSIDE RECORDS SUMMARY | 2025-04-23 11:54 | XMS_ITS | Encounter Summary ---
Author Organization [facility] Address [address] [place] [address] Care Team Providers Care Distribution Center Supervisor Name Role Phone Radha Cowan MD Primary Care Provider Encounter Details Date Type Department Care Team (Latest Contact Info) Description 08/11/2002 Outpatient Historical [facility] Augusto Nicole Jr., MD [address] [place] [phone] HYPERLIPIDEMIA NEC/NOS (Primary Dx) Social History Tobacco Use Types Packs/Day Years Used Date Smoking Tobacco: Never Assessed Comments Unknown Sex and Gender Information Value Date Recorded Sex Assigned at Not on file Legal Sex Female 3:33 AM C D REACTOR OPERATOR Gender Identity Not on file Sexual [...] R/O COVID-19 07/25/2020 07/25/2020 07/27/2020 5:01 AM C D REACTOR OPERATOR R/O COVID-19 09/30/2020 09/30/2020 09/30/2020 7:23 PM C D REACTOR OPERATOR documented as of this encounter Care Teams Distribution Center Supervisor Relationship Specialty Start Date End Date Radha Cowan MD [address] [facility] [address] [place] [address] PCP - General Family Practice 10/24/20 documented as of this encounter
--- OUTSIDE RECORDS SUMMARY | 2025-04-23 11:54 | XMS_ITS | Encounter Summary ---
Author Organization [facility] Address [address] [place]: [place] [address] Care Team Providers Care Grid Trimmer Name Role Phone Radah Cowan MD Primary Care Provider [phone]- [phone] Encounter Details Date Type Department Care Team (Late st Contact Info) Description 12/20/2000 Outpatient Historical Augusto Nicole Jr., MD [address] [place] [phone] Social History Tobacco Use Types Packs/Day Years Used Date Smoking Tobacco: Never Assessed Comments Unknown Sex and Gender Information Value Date Recorded Sex Assigned at Not on file Legal Sex Female 3:33 AM SPOT CLEANER Gender Identity Not on file Sexual Orientation Not on file documented as of this encounter Plan of Treatment Not on file documented as of this encounter Visit Diagnoses Not on filedocumented in this encounter Additional Health Concerns Infection Onset Date Last Indicated Resolved Time R/O COVID-19 05/16/2020 05/16/2020 05/18/2020 12:3 1 AM CDT R/O COVID-19 07/25/2020 07/25/2020 07/27/2020 5:01 AM SPOT CLEANER R/O COVID-19 09/30/2020 09/30/2020 09/30/2020 7:23 PM SPOT CLEANER documented as of this encounter Care Teams Grid Trimmer Relationship Specialty Start Date End Date Radha Cowan MD [address] [place] [phone] PCP - General Family Practice 10/24/20 documented as of this encounter
--- OUTSIDE RECORDS SUMMARY | 2025-04-23 11:54 | XMS_ITS | Encounter Summary ---
Author Organization [facility] Address [address] [place] [address] Care Team Providers Care General Engineering Teacher Name Role Phone Radha Cowan MD Primary Care Provider Encounter Details Date Type Department Care Team (Latest Contact Info) Description 04/19/2003 Outpatient Historical [facility] Corey Burkett, Augusto Tang MD [address] [place] [phone] DIABETES UNCOMPL ADULT-TYPE II (CMS/HCC) (Primary Dx); OPEN WOUND KNEE/LEG/ANKLE; HYPERTENSION NOS; HYPERLIPIDEMIA NEC/NOS Social History Tobacco Use Types Packs/Day Years Used Date Smoking Tobacco: Never Assessed Comments Unknown Sex and Gender Information Value Date Recorded Sex Assigned at Not on file Legal Sex Female 3:33 AM MARKET RESEARCH ASSISTANT Gender Identity Not on file Sexual Orientation Not on file documented as of this encounter Plan of Treatment Not on file documented as of this encounter Visit Diagnoses Diagnosis Type II or unspecified type diabetes mellitus without mention of complication, not stated as uncontrolled- Primary Open wound of knee, leg (except thigh), and ankle, without mention of complication Unspecified essential hypertension Other and unspecified hyperlipidemia documented in this encounter Additional Health Concerns Infection Onset Date Last Indicated Resolved Time R/O COVID-19 05/16/2020 05/16/2020 05/18/2020 12:3 1 AM CDT R/O COVID-19 07/25/2020 07/25/2020 07/27/2020 5:01 AM MARKET RESEARCH ASSISTANT R/O COVID-19 09/30/2020 09/30/2020 09/30/2020 7:23 PM MARKET RESEARCH ASSISTANT documented as of this encounter Care Teams General Engineering Teacher Relationship Specialty Start Date End Date Radha Cowan MD [address] [phone] PCP - General Family Practice 10/24/20 documented as of this encounter
--- OUTSIDE RECORDS SUMMARY | 2025-04-23 11:54 | XMS_ITS | Encounter Summary ---
Author Organization [facility] Address [address] [place] [address] Care Team Providers Care Boat Hoist Operator Helper Name Role Phone Rahda Cowan MD Primary Care Provider Encounter Details Date Type Department Care Team (Latest Contact Info) Description 06/30/2002 Outpatient Historical [facility] Corey Burkett, Augusto Tang MD [address] [place] [phone] DIABETES UNCOMPL ADULT-TYPE II (CMS/HCC) (Primary Dx); RENAL & URETERAL DIS NOS; HYPERTENSION NOS; HYPERLIPIDEMIA NEC/NOS Social History Tobacco Use Types Packs/Day Years Used Date Smoking Tobacco: Never Assessed Comments Unknown Sex and Gender Information Value Date Recorded Sex Assigned at Not on file Legal Sex Female 3:33 AM PAPER ROLLER Gender Identity Not on file Sexual Orientation Not on file documented as of this encounter Plan of Treatment Not on file documented as of this encounter Visit Diagnoses Diagnosis Type II or unspecified type diabetes mellitus without mention of complication, not stated as uncontrolled- Primary Unspecified disorder of kidney and ureter Unspecified essential hypertension Other and unspecified hyperlipidemia documented in this encounter Additional Health Concerns Infection Onset Date Last Indicated Resolved Time R/O COVID-19 05/16/2020 05/16/2020 05/18/2020 12:3 1 AM CDT R/O COVID-19 07/25/2020 07/25/2020 07/27/2020 5:01 AM PAPER ROLLER R/O COVID-19 09/30/2020 09/30/2020 09/30/2020 7:23 PM PAPER ROLLER documented as of this encounter Care Teams Boat Hoist Operator Helper Relationship Specialty Start Date End Date Radha Cowan MD [address] [phone] PCP - General Family Practice 10/24/20 documented as of this encounter
--- OUTSIDE RECORDS SUMMARY | 2025-04-23 11:54 | XMS_ITS | Encounter Summary ---
Author Organization [facility] Address [address] [place] [address] Care Team Providers Care Grinder Brake Lining Name Role Phone Radha Cowan MD Primary Care Provider [phone] Encounter Details Date Type Department Care Team (Latest Contact Info) Description 05/29/1999 Outpatient Historical [facility] Augusto Nicole Jr., MD [address] [place] [phone] Other seborrheic keratosis (Primary Dx) Social History Tobacco Use Types Packs/Day Years Used Date Smoking Tobacco: Never Assessed Comments Unknown Sex and Gender Information Value Date Recorded Sex Assigned at Not on file Legal Sex Female 3:33 AM FLIGHT OPERATION COORDINATOR Gender Identity Not on file Sexual Orientation Not on file documented as of this encounter Plan of Treatment Not on file documented as of this encounter Visit Diagnoses Diagnosis Other seborrheic keratosis- Primary documented in this encounter Additional Health Concerns Infection Onset Date Last Indicated Resolved Time R/O COVID-19 05/16/2020 05/16/2020 05/18/2020 12:3 1 AM CDT R/O COVID-19 07/25/2020 07/25/2020 07/27/2020 5:01 AM FLIGHT OPERATION COORDINATOR R/O COVID-19 09/30/2020 09/30/2020 09/30/2020 7:23 PM FLIGHT OPERATION COORDINATOR documented as of this encounter Care Teams Grinder Brake Lining Relationship Specialty Start Date End Date Radha Cowan MD [address] [facility] [address] [place] [address] PCP - General Family Practice 10/24/20 documented as of this encounter
--- OUTSIDE RECORDS SUMMARY | 2025-04-23 11:54 | XMS_ITS | Encounter Summary ---
Author Organization [facility] Address [address] [place] [address] Care Team Providers Care Personal Care Worker Name Role Phone Radha Cowan MD Primary Care Provider Encounter Details Date Type Department Care Team (Latest Contact Info) Description 03/22/2000 Outpatient Historical [facility] Augusto Nicole Jr., MD [address] [place] [phone] Other follow-up examination(V67.59) (Primary Dx); Unspecified hemorrhoids without mention of complication Social History Tobacco Use Types Packs/Day Years Used Date Smoking Tobacco: Never Assessed Comments Unknown Sex and Gender Information Value Date Recorded Sex Assigned at Not on file Legal Sex Female 3:33 AM EXTRACTIONS TECHNOLOGIST Gender Identity Not on file Sexual Orientation Not on file documented as of this encounter Plan of Treatment Not on file documented as of this encounter Visit Diagnoses Diagnosis Other follow-up examination(V67.59)- Primary Other follow-up examination Unspecified hemorrhoids without mention of complication documented in this encounter Additional Health Concerns Infection Onset Date Last Indicated Resolved Time R/O COVID-19 05/16/2020 05/16/2020 05/18/2020 12:3 1 AM CDT R/O COVID-19 07/25/2020 07/25/2020 07/27/2020 5:01 AM EXTRACTIONS TECHNOLOGIST R/O COVID-19 09/30/2020 09/30/2020 09/30/2020 7:23 PM EXTRACTIONS TECHNOLOGIST documented as of this encounter Care Teams Personal Care Worker Relationship Specialty Start Date End Date Radha Cowan MD [address] [address] PCP - General Family Practice 10/24/20 documented as of this encounter
--- OUTSIDE RECORDS SUMMARY | 2025-04-23 11:54 | XMS_ITS | Encounter Summary ---
Author Organization [facility] Address [address] [place] [address] Care Team Providers Care Lumber Driver Name Role Phone Radha Cowan MD Primary Care Provider Encounter Details Date Type Department Care Team (Latest Contact Info) Description 04/27/2003 Outpatient Historical [facility] Augusto Nicole Jr., MD [address] [place] [phone] HAIR DISEASES NEC (Primary Dx); ABN SERUM ENZY LEVEL NEC; HYPERLIPIDEMIA NEC/NOS Social History Tobacco Use Types Packs/Day Years Used Date Smoking Tobacco: Never Assessed Comments Unknown Sex and Gender Information Value Date Recorded Sex Assigned at Not on file Legal Sex Female 3:33 AM BOILER TESTING TECHNICIAN Gender Identity Not on file Sexual Orientation Not on file documented as of this encounter Plan of Treatment Not on file documented as of this encounter Visit Diagnoses Diagnosis Other specified disease of hair and hair follicles- Primary Other nonspecific abnormal serum enzyme levels Other and unspecified hyperlipidemia documented in this encounter Additional Health Concerns Infection Onset Date Last Indicated Resolved Time R/O COVID-19 05/16/2020 05/16/2020 05/18/2020 12:3 1 AM CDT R/O COVID-19 07/25/2020 07/25/2020 07/27/2020 5:01 AM BOILER TESTING TECHNICIAN R/O COVID-19 09/30/2020 09/30/2020 09/30/2020 7:23 PM BOILER TESTING TECHNICIAN documented as of this encounter Care Teams Lumber Driver Relationship Specialty Start Date End Date Radha Cowan MD [address] [phone] PCP - General Family Practice 10/24/20 documented as of this encounter
--- OUTSIDE RECORDS SUMMARY | 2025-04-23 11:54 | XMS_ITS | Encounter Summary ---
Author Organization [facility] Address [address] [place] [address] Care Team Providers Care Financial Accounting Manager Name Role Phone Radha Cowan MD Primary Care Provider Encounter Details Date Type Department Care Team (Latest Contact Info) Description 08/11/2002 Outpatient Historical [facility] Corey Burkett, Augusto Tang MD [address] [place] [phone] DIABETES UNCOMPL ADULT-TYPE II (CMS/HCC) (Primary Dx); DERMATOPHYTOSIS OF NAIL; ANEMIA NOS; VACCINE FOR INFLUENZA Social History Tobacco Use Types Packs/Day Years Used Date Smoking Tobacco: Never Assessed Comments Unknown Sex and Gender Information Value Date Recorded Sex Assigned at Not on file Legal Sex Female 3:33 AM BIOLOGY INTERNSHIP Gender Identity Not on file Sexual Orientation Not on file documented as of this encounter Plan of Treatment Not on file documented as of this encounter Visit Diagnoses Diagnosis Type II or unspecified type diabetes mellitus without mention of complication, not stated as uncontrolled- Primary Dermatophytosis of nail Anemia, unspecified Need vaccination-viral disease Need for prophylactic vaccination and inoculation against other viral diseases documented in this encounter Additional Health Concerns Infection Onset Date Last Indicated Resolved Time R/O COVID-19 05/16/2020 05/16/2020 05/18/2020 12:3 1 AM CDT R/O COVID-19 07/25/2020 07/25/2020 07/27/2020 5:01 AM BIOLOGY INTERNSHIP R/O COVID-19 09/30/2020 09/30/2020 09/30/2020 7:23 PM BIOLOGY INTERNSHIP documented as of this encounter Care Teams Financial Accounting Manager Relationship Specialty Start Date End Date Radha Cowan MD [address] [address] PCP - General Family Practice 10/24/20 documented as of this encounter
--- OUTSIDE RECORDS SUMMARY | 2025-04-23 11:54 | XMS_ITS | Encounter Summary ---
Author Organization [facility] Address [address] [place] [address] Care Team Providers Care Pit Recorder Name Role Phone Radha Cowan MD Primary Care Provider Encounter Details Date Type Department Care Team (Latest Contact Info) Description 12/23/1998 Outpatient Historical [facility] Augusto Nicole Jr., MD [address] [place] [phone] Dysthymic disorder (Primary Dx); Abdominal pain, unspecified site Social History Tobacco Use Types Packs/Day Years Used Date Smoking Tobacco: Never Assessed Comments Unknown Sex and Gender Information Value Date Recorded Sex Assigned at Not on file Legal Sex Female 3:33 AM RETAIL MARKETING SPECIALIST Gender Identity Not on file Sexual Orientation Not on file documented as of this encounter Plan of Treatment Not on file documented as of this encounter Visit Diagnoses Diagnosis Dysthymic disorder- Primary Abdominal pain, unspecified site documented in this encounter Additional Health Concerns Infection Onset Date Last Indicated Resolved Time R/O COVID-19 05/16/2020 05/16/2020 05/18/2020 12:3 1 AM CDT R/O COVID-19 07/25/2020 07/25/2020 07/27/2020 5:01 AM RETAIL MARKETING SPECIALIST R/O COVID-19 09/30/2020 09/30/2020 09/30/2020 7:23 PM RETAIL MARKETING SPECIALIST documented as of this encounter Care Teams Pit Recorder Relationship Specialty Start Date End Date Radha Cowan MD [address] [address] PCP - General Family Practice 10/24/20 documented as of this encounter
--- OUTSIDE RECORDS SUMMARY | 2025-04-23 11:54 | XMS_ITS | Encounter Summary ---
Author Organization [facility] Address [address] [place] [address] Care Team Providers Care Library Specialist Name Role Phone Radha Cowan MD Primary Care Provider Encounter Details Date Type Department Care Team (Latest Contact Info) Description 01/19/2001 Outpatient Historical [facility] Augusto Nicole Jr., MD [address] [place] [phone] Chest pain, unspecified (Primary Dx); Generalized anxiety disorder Social History Tobacco Use Types Packs/Day Years Used Date Smoking Tobacco: Never Assessed Comments Unknown Sex and Gender Information Value Date Recorded Sex Assigned at Not on file Legal Sex Female 3:33 AM GENERAL DENTIST/OWNER Gender Identity Not on file Sexual Orientation [...] R/O COVID-19 07/25/2020 07/25/2020 07/27/2020 5:01 AM GENERAL DENTIST/OWNER R/O COVID-19 09/30/2020 09/30/2020 09/30/2020 7:23 PM GENERAL DENTIST/OWNER documented as of this encounter Care Teams Library Specialist Relationship Specialty Start Date End Date Radha Cowan MD [address] [facility] [address] [place] [address] PCP - General Family Practice 10/24/20 documented as of this encounter
--- OUTSIDE RECORDS SUMMARY | 2025-04-23 11:54 | XMS_ITS | Encounter Summary ---
Author Organization [facility] Address [address] [place] [address] Care Team Providers Care Clam Picker Name Role Phone Radha Cowan MD Primary Care Provider Encounter Details Date Type Department Care Team (Latest Contact Info) Description 12/19/2001 Outpatient Historical [facility] Augusto Nicole Jr., MD [address] [place] [phone] ENDOCARDITIS NOS (Primary Dx); EDEMA Social History Tobacco Use Types Packs/Day Years Used Date Smoking Tobacco: Never Assessed Comments Unknown Sex and Gender Information Value Date Recorded Sex Assigned at Not on file Legal Sex Female 3:33 AM LAWN MOWER OPERATOR Gender Identity Not on file Sexual Orientation Not on file documented as of this encounter Plan of Treatment Not on file documented as of this encounter Visit Diagnoses Diagnosis Endocarditis, valve unspecified, unspecified cause- Primary Edema documented in this encounter Additional Health Concerns Infection Onset Date Last Indicated Resolved Time R/O COVID-19 05/16/2020 05/16/2020 05/18/2020 12:3 1 AM CDT R/O COVID-19 07/25/2020 07/25/2020 07/27/2020 5:01 AM LAWN MOWER OPERATOR R/O COVID-19 09/30/2020 09/30/2020 09/30/2020 7:23 PM LAWN MOWER OPERATOR documented as of this encounter Care Teams Clam Picker Relationship Specialty Start Date End Date Radha oCwan MD [address] [facility] [address] [place] [address] PCP - General Family Practice 10/24/20 documented as of this encounter
--- OUTSIDE RECORDS SUMMARY | 2025-04-23 11:54 | XMS_ITS | Encounter Summary ---
Author Organization [facility] Address [address] [place] [address] Care Team Providers Care Public Health Technologist Name Role Phone Radha Cowan MD Primary Care Provider [phone] Encounter Details Date Type Department Care Team (Latest Contact Info) Description 06/13/1999 Outpatient Historical [facility] Betito Fields NO ADDRESS ON FILE Chest pain, unspecified (Primary Dx) Social History Tobacco Use Types Packs/Day Years Used Date Smoking Tobacco: Never Assessed Comments Unknown Sex and Gender Information Value Date Recorded Sex Assigned at Not on file Legal Sex Female 3:33 AM VALVE MAKER Gender Identity Not on file Sexual Orientation Not on file documented as of this encounter Plan of Treatment Not on file documented as of this encounter Visit Diagnoses Diagnosis Chest pain, unspecified- Primary documented in this encounter Additional Health Concerns Infection Onset Date Last Indicated Resolved Time R/O COVID-19 05/16/2020 05/16/2020 05/18/2020 12:3 1 AM CDT R/O COVID-19 07/25/2020 07/25/2020 07/27/2020 5:01 AM VALVE MAKER R/O COVID-19 09/30/2020 09/30/2020 09/30/2020 7:23 PM VALVE MAKER documented as of this encounter Care Teams Public Health Technologist Relationship Specialty Start Date End Date Radha Cowan MD [address] [place] [phone] PCP - General Family Practice 10/24/20 documented as of this encounter
--- OUTSIDE RECORDS SUMMARY | 2025-04-23 11:54 | XMS_ITS | Encounter Summary ---
Author Organization [facility] Address [address] [place] [address] Care Team Providers Care Nicker Name Role Phone Radha Cowan MD Primary Care Provider Encounter Details Date Type Department Care Team (Latest Contact Info) Description 11/19/1999 Outpatient Historical [facility] Augusto Nicole Jr., MD [address] [place] [phone] Other convulsions (Primary Dx); Leiomyoma of uterus, unspecified; Screening for malignant neoplasm of the cervix Social History Tobacco Use Types Packs/Day Years Used Date Smoking Tobacco: Never Assessed Comments Unknown Sex and Gender Information Value Date Recorded Sex Assigned at Not on file Legal Sex Female 3:33 AM GAS LINE REPAIRER Gender Identity Not on file Sexual Orientation Not on file documented as of this encounter Plan of Treatment Not on file documented as of this encounter Visit Diagnoses Diagnosis Other convulsions- Primary Leiomyoma of uterus, unspecified Screening for malignant neoplasm of the cervix documented in this encounter Additional Health Concerns Infection Onset Date Last Indicated Resolved Time R/O COVID-19 05/16/2020 05/16/2020 05/18/2020 12:3 1 AM CDT R/O COVID-19 07/25/2020 07/25/2020 07/27/2020 5:01 AM GAS LINE REPAIRER R/O COVID-19 09/30/2020 09/30/2020 09/30/2020 7:23 PM GAS LINE REPAIRER documented as of this encounter Care Teams Nicker Relationship Specialty Start Date End Date Radha Cowan MD [address] [phone] PCP - General Family Practice 10/24/20 documented as of this encounter
--- OUTSIDE RECORDS SUMMARY | 2025-04-23 11:54 | XMS_ITS | Encounter Summary ---
Author Organization [facility] Address [address] [place] [address] Care Team Providers Care Return Agent Airport Name Role Phone Radha Cowan MD Primary Care Provider Encounter Details Date Type Department Care Team (Latest Contact Info) Description 01/16/2002 Outpatient Historical [facility] Augusto Nicole Jr., MD [address] [place] [phone] CHRONIC AIRWAY OBSTRUCTION NEC (CMS/[facility]) (Primary Dx); ANEMIA NOS; DEPRESSIVE DISORDER NEC Social History Tobacco Use Types Packs/Day Years Used Date Smoking Tobacco: Never Assessed Comments Unknown Sex and Gender Information Value Date Recorded Sex Assigned at Not on file Legal Sex Female 3:33 AM SEWAGE PLANT OPERATOR Gender Identity Not on file Sexual Orientation Not on file documented as of this encounter Plan of Treatment Not on file documented as of this encounter Visit Diagnoses Diagnosis Chronic airway obstruction, not elsewhere classified (CMS/HCC)- Primary Chronic airway obstruction, not elsewhere classified Anemia, unspecified Depressive disorder, not elsewhere classified documented in this encounter Additional Health Concerns Infection Onset Date Last Indicated Resolved Time R/O COVID-19 05/16/2020 05/16/2020 05/18/2020 12:3 1 AM CDT R/O COVID-19 07/25/2020 07/25/2020 07/27/2020 5:01 AM SEWAGE PLANT OPERATOR R/O COVID-19 09/30/2020 09/30/2020 09/30/2020 7:23 PM SEWAGE PLANT OPERATOR documented as of this encounter Care Teams Return Agent Airport Relationship Specialty Start Date End Date Radha Cowan MD [address] [phone] PCP - General Family Practice 10/24/20 documented as of this encounter
--- OUTSIDE RECORDS SUMMARY | 2025-04-23 11:54 | XMS_ITS | Encounter Summary ---
Author Organization [facility] Address [address] [facility] [address] Charlesn: [place] [address] Care Team Providers Care Comic Book Writer Name Role Phone Radha Cowan MD Primary Care Provider [phone] Encounter Details Date Type Department Care Team (Late st Contact Info) Description 12/28/2001 Outpatient Historical Augusto Nicole Jr., MD [address] [place] [phone] Social History Tobacco Use Types Packs/Day Years Used Date Smoking Tobacco: Never Assessed Comments Unknown Sex and Gender Information Value Date Recorded Sex Assigned at Not on file Legal Sex Female 3:33 AM PAINTER SUPERVISOR Gender Identity Not on file Sexual Orientation Not on file documented as of this encounter Plan of Treatment Not on file documented as of this encounter Visit Diagnoses Not on filedocumented in this encounter Additional Health Concerns Infection Onset Date Last Indicated Resolved Time R/O COVID-19 05/16/2020 05/16/2020 05/18/2020 12:3 1 AM CDT R/O COVID-19 07/25/2020 07/25/2020 07/27/2020 5:01 AM PAINTER SUPERVISOR R/O COVID-19 09/30/2020 09/30/2020 09/30/2020 7:23 PM PAINTER SUPERVISOR documented as of this encounter Care Teams Comic Book Writer Relationship Specialty Start Date End Date Radha Cowan MD [address] [place] [phone] PCP - General Family Practice 10/24/20 documented as of this encounter
--- OUTSIDE RECORDS SUMMARY | 2025-04-23 11:54 | XMS_ITS | Encounter Summary ---
Author Organization [facility] Address [address] [place] [address] Care Team Providers Care Bobbin Presser Name Role Phone Radha Cowan MD Primary Care Provider Encounter Details Date Type Department Care Team (Latest Contact Info) Description 05/19/2002 Outpatient Historical [facility] Corey Burkett, Augusto Tang MD [address] [place] [phone] DIABETES UNCOMPL ADULT-TYPE II (CMS/HCC) (Primary Dx); Pure hypercholesterolem; AFTERCARE INDUSTRIAL ARTS TEACHER USE MEDICATN Social History Tobacco Use Types Packs/Day Years Used Date Smoking Tobacco: Never Assessed Comments Unknown Sex and Gender Information Value Date Recorded Sex Assigned at Not on file Legal Sex Female 3:33 AM KITCHEN STEWARD Gender Identity Not on file Sexual Orientation Not on file documented as of this encounter Plan of Treatment Not on file documented as of this encounter Visit Diagnoses Diagnosis Type II or unspecified type diabetes mellitus without mention of complication, not stated as uncontrolled- Primary Pure hypercholesterolem Pure hypercholesterolemia Encounter for long-term (current) use of other medications documented in this encounter Additional Health Concerns Infection Onset Date Last Indicated Resolved Time R/O COVID-19 05/16/2020 05/16/2020 05/18/2020 12:3 1 AM CDT R/O COVID-19 07/25/2020 07/25/2020 07/27/2020 5:01 AM KITCHEN STEWARD R/O COVID-19 09/30/2020 09/30/2020 09/30/2020 7:23 PM KITCHEN STEWARD documented as of this encounter Care Teams Bobbin Presser Relationship Specialty Start Date End Date Radha Cowan MD [address] [phone] PCP - General Family Practice 10/24/20 documented as of this encounter
--- OUTSIDE RECORDS SUMMARY | 2025-04-23 11:54 | XMS_ITS | Encounter Summary ---
Author Organization [facility] Address [address] Charlesn: [place] [address] Care Team Providers Care Floor Installation Mechanic Name Role Phone Radha Cowan MD Primary Care Provider [phone] Encounter Details Date Type Department Care Team (Late st Contact Info) Description 11/21/1999 Outpatient Historical Augusto Nicole Jr., MD [address] [place] [phone] Social History Tobacco Use Types Packs/Day Years Used Date Smoking Tobacco: Never Assessed Comments Unknown Sex and Gender Information Value Date Recorded Sex Assigned at Not on file Legal Sex Female 3:33 AM LINING PARTS SEWER Gender Identity Not on file Sexual Orientation Not on file documented as of this encounter Plan of Treatment Not on file documented as of this encounter Visit Diagnoses Not on filedocumented in this encounter Additional Health Concerns Infection Onset Date Last Indicated Resolved Time R/O COVID-19 05/16/2020 05/16/2020 05/18/2020 12:3 1 AM CDT R/O COVID-19 07/25/2020 07/25/2020 07/27/2020 5:01 AM LINING PARTS SEWER R/O COVID-19 09/30/2020 09/30/2020 09/30/2020 7:23 PM LINING PARTS SEWER documented as of this encounter Care Teams Floor Installation Mechanic Relationship Specialty Start Date End Date Radha Cowan MD [address] [place] [phone] PCP - General Family Practice 10/24/20 documented as of this encounter
--- OUTSIDE RECORDS SUMMARY | 2025-04-23 11:54 | XMS_ITS | Encounter Summary ---
Author Organization [facility] Address [address] [facility] [address] [facility] [address] Charlesn: [place] [address] Care Team Providers Care Amr Physician Name Role Phone Radha Cowan MD Primary Care Provider [phone] Encounter Details Date Type Department Care Team (Late st Contact Info) Description 06/10/2001 Outpatient Historical Augusto Nicole Jr., MD [address] [place] [phone] Social History Tobacco Use Types Packs/Day Years Used Date Smoking Tobacco: Never Assessed Comments Unknown Sex and Gender Information Value Date Recorded Sex Assigned at Not on file Legal Sex Female 3:33 AM FLOOR NURSE Gender Identity Not on file Sexual Orientation Not on file documented as of this encounter Plan of Treatment Not on file documented as of this encounter Visit Diagnoses Not on filedocumented in this encounter Additional Health Concerns Infection Onset Date Last Indicated Resolved Time R/O COVID-19 05/16/2020 05/16/2020 05/18/2020 12:3 1 AM CDT R/O COVID-19 07/25/2020 07/25/2020 07/27/2020 5:01 AM FLOOR NURSE R/O COVID-19 09/30/2020 09/30/2020 09/30/2020 7:23 PM FLOOR NURSE documented as of this encounter Care Teams Amr Physician Relationship Specialty Start Date End Date Radha Cowan MD [address] [place] [phone] PCP - General Family Practice 10/24/20 documented as of this encounter
--- OUTSIDE RECORDS SUMMARY | 2025-04-23 11:54 | XMS_ITS | Encounter Summary ---
Author Organization [facility] Address [address] [place] [address] Care Team Providers Care Emergency Planning And Response Manager Name Role Phone Radha Cowan MD Primary Care Provider [phone] Encounter Details Date Type Department Care Team (Latest Contact Info) Description 06/23/1999 Outpatient Historical [facility] Betito Fields NO ADDRESS ON FILE Other malaise and fatigue (Primary Dx); Elevated blood pressure reading without diagnosis of hypertension; Other diseases of trachea and bronchus, not elsewhere classified Social History Tobacco Use Types Packs/Day Years Used Date Smoking Tobacco: Never Assessed Comments Unknown Sex and Gender Information Value Date Recorded Sex Assigned at Not on file Legal Sex Female 3:33 AM STRETCHING MACHINE OPERATOR Gender Identity Not on file Sexual Orientation Not on file documented as of this encounter Plan of Treatment Not on file documented as of this encounter Visit Diagnoses Diagnosis Other malaise and fatigue- Primary Elevated blood pressure reading without diagnosis of hypertension Other diseases of trachea and bronchus, not elsewhere classified documented in this encounter Additional Health Concerns Infection Onset Date Last Indicated Resolved Time R/O COVID-19 05/16/2020 05/16/2020 05/18/2020 12:3 1 AM CDT R/O COVID-19 07/25/2020 07/25/2020 07/27/2020 5:01 AM STRETCHING MACHINE OPERATOR R/O COVID-19 09/30/2020 09/30/2020 09/30/2020 7:2 3 PM STRETCHING MACHINE OPERATOR documented as of this encounter Care Teams Emergency Planning And Response Manager Relationship Specialty Start Date End Date Radha Cowan MD [address] [phone] PCP - General Family Practice 10/24/20 documented as of this encounter
--- OUTSIDE RECORDS SUMMARY | 2025-04-23 11:54 | XMS_ITS | Encounter Summary ---
Author Organization [facility] Address [address] [place] [address] Care Team Providers Care Receiving Tank Operator Name Role Phone Radha Cowan MD Primary Care Provider Encounter Details Date Type Department Care Team (Latest Contact Info) Description 03/23/2002 Outpatient Historical [facility] Augusto Nicole Jr., MD [address] [place] [phone] ABDOMINAL PAIN UNSPEC SITE (Primary Dx); IRON DEFIC ANEMIA NOS; GENERALIZED ANXIETY DIS Social History Tobacco Use Types Packs/Day Years Used Date Smoking Tobacco: Never Assessed Comments Unknown Sex and Gender Information Value Date Recorded Sex Assigned at Not on file Legal Sex Female 3:33 AM TECHNICAL SERVICE ENGINEER Gender Identity Not on file Sexual Orientation Not on file documented as of this encounter Plan of Treatment Not on file documented as of this encounter Visit Diagnoses Diagnosis Abdominal pain, unspecified site- Primary Iron deficiency anemia, unspecified Generalized anxiety disorder documented in this encounter Additional Health Concerns Infection Onset Date Last Indicated Resolved Time R/O COVID-19 05/16/2020 05/16/2020 05/18/2020 12:3 1 AM CDT R/O COVID-19 07/25/2020 07/25/2020 07/27/2020 5:01 AM TECHNICAL SERVICE ENGINEER R/O COVID-19 09/30/2020 09/30/2020 09/30/2020 7:23 PM TECHNICAL SERVICE ENGINEER documented as of this encounter Care Teams Receiving Tank Operator Relationship Specialty Start Date End Date Radha Cowan MD [address] [phone] PCP - General Family Practice 10/24/20 documented as of this encounter
--- OUTSIDE RECORDS SUMMARY | 2025-04-23 11:54 | XMS_ITS | Encounter Summary ---
Author Organization [facility] Address [address] [place] [address] Care Team Providers Care Application Software Engineer Name Role Phone Radha Cowan MD Primary Care Provider Encounter Details Date Type Department Care Team (Latest Contact Info) Description 03/07/2003 Outpatient Historical [facility] Corey Burkett, Augusto Tang MD [address] [place] [phone] CHRONIC AIRWAY OBSTRUCTION NEC (CMS/[facility]) (Primary Dx); BRONCHITIS NOS; EDEMA; Pure hypercholesterolem Social History Tobacco Use Types Packs/Day Years Used Date Smoking Tobacco: Never Assessed Comments Unknown Sex and Gender Information Value Date Recorded Sex Assigned at Not on file Legal Sex Female 3:33 AM SPIRITUAL CARE COORDINATOR Gender Identity Not on file Sexual Orientation Not on file documented as of this encounter Plan of Treatment Not on file documented as of this encounter Visit Diagnoses Diagnosis Chronic airway obstruction, not elsewhere classified (CMS/HCC)- Primary Chronic airway obstruction, not elsewhere classified Bronchitis, not specified as acute or chronic Edema Pure hypercholesterolem Pure hypercholesterolemia documented in this encounter Additional Health Concerns Infection Onset Date Last Indicated Resolved Time R/O COVID-19 05/16/2020 05/16/2020 05/18/2020 12:3 1 AM CDT R/O COVID-19 07/25/2020 07/25/2020 07/27/2020 5:01 AM SPIRITUAL CARE COORDINATOR R/O COVID-19 09/30/2020 09/30/2020 09/30/2020 7:23 PM SPIRITUAL CARE COORDINATOR documented as of this encounter Care Teams Application Software Engineer Relationship Specialty Start Date End Date Radha Cowan MD [address] [phone] PCP - General Family Practice 10/24/20 documented as of this encounter
--- NOTE | 2025-04-23 12:49 | W.ED.CHESTPA ---
HPI - Chest Pain General: Chief Complaint: Chest Pain Stated Complaint: Onc sent for CP, vision issues yesterday Time Seen by Provider: 04/23/25 12:38 Source: patient Mode of arrival: ambulatory Limitations: no limitations History of Present Illness: Patient is a nice 70-year-old female with COPD, known small cell carcinoma lung cancer, diabetes, thyroid disease, hypertension, among others here for complaints of chest pain that started a few hours ago while she was over at oncology. She states she was scheduled to receive her last chemotherapy infusion today but when she told the provider how she was feeling, she was instructed to come to the emergency department. She feels like pain is somewhat substernal and off to the left and radiating into her left arm. She states one previous TN and was taken to the cardiac excavation laborer but no blockages were found. She is not feeling short of breath although admits to some degree of chronic dyspnea. She wears oxygen mainly at night. She does do breathing treatments 4 times daily. She has not noticed any recent weight gain or leg swelling. She also has a separate complaint of binocular transient vision loss that occurred last week on Wednesday?. She states over that time. She had 3 episodes that lasted 1 to 2 minutes of complete bilateral vision loss. MD complaint: chest pain Onset (ago): hour(s) Prior episodes: No Onset: during rest Pain location: substernal and left chest Pain radiation: left arm Severity: mild Relieving factors: nothing Exacerbating factors: nothing Associated symptoms: Reports no associated symptoms; Deny abdominal pain, dyspnea, fever(s), palpitations or syncope Treatment prior to arrival: none Risk Factors: Coronary artery disease risk factors: hypertension Pulmonary embolism risk factors: malignancy Related Data Home Medications ?Medication ?Instructions ?Recorded ?Confirmed aspirin 81 mg tablet,delayed 81 mg PO DAILY 10/17/19 04/23/25 release insulin lispro 100 unit/mL See Rx Instructions SUBCUT TID PRN 08/02/23 04/23/25 subcutaneous pen (Humalog KwikPen blood sugar (U-100) Insulin) dulaglutide 3 mg/0.5 mL 3 mg SUBCUT Q7D 03/22/24 04/23/25 subcutaneous pen injector ([facility]) levothyroxine 25 mcg tablet 25 mcg PO QAM 03/22/24 04/23/25 metoprolol tartrate 25 mg tablet 25 mg PO DAILY 03/22/24 04/23/25 doxepin 25 mg capsule 50 mg PO BEDTIME 05/29/24 04/23/25 latanoprost 0.005 % eye drops 1 drp ophthalmic (eye) BEDTIME 05/29/24 04/23/25 venlafaxine 150 mg 150 mg PO DAILY 11/14/24 04/23/25 capsule,extended release 24 hr magnesium hydroxide 400 mg/5 mL 30 ml PO Q2H PRN Constipation 02/05/25 04/23/25 oral suspension (Dulcolax (magnesium hydroxide)) ubrogepant 50 mg tablet 50 mg PO 1XD PRN Migraine Headache 02/05/25 04/23/25 arformoterol 15 mcg/2 mL solution 2 ml inhalation DAILY 02/19/25 04/23/25 for nebulization cholecalciferol (vitamin D3) 125 125 mcg PO DAILY 02/19/25 04/23/25 mcg (5,000 unit) capsule ipratropium bromide 17 2 puff inhalation Q8H PRN 02/19/25 04/23/25 mcg/actuation HFA aerosol inhaler Shortness Of Breath loratadine 10 mg capsule (Allergy 10 mg PO DAILY 02/19/25 04/23/25 Relief (loratadine)) gabapentin 100 mg capsule 100 mg PO BID 03/12/25 04/23/25 Previous Rx's ?Medication ?Instructions ?Recorded atorvastatin 10 mg tablet 10 mg PO DAILY 90 days #90 tabs 01/05/24 ondansetron HCl 4 mg tablet 4 mg PO Q6H PRN nausea and 12/13/24 vomiting #30 tabs prochlorperazine maleate 10 mg 10 mg PO Q4H PRN mild nausea #30 12/13/24 tablet (Compazine) tabs albuterol sulfate 90 mcg/actuation 2 inh inhalation Q6H PRN shortness 02/06/25 aerosol inhaler (Ventolin HFA) of breath or wheezing #8.5 grams pantoprazole 40 mg tablet,delayed 40 mg PO BID #180 tabs 02/06/25 release Allergies Allergy/AdvReac Type Severity Reaction Status Date / Time codeine Allergy Unknown ADR-Nausea Verified 04/23/25 11:59 adhesive tape Allergy ALGY-Bliste Verified 08/18/25 11:59 r ketorolac (From Toradol) Allergy Unknown Verified 04/23/25 11:59 melatonin Allergy ADR-Nausea Verified 04/23/25 11:59 Review of Systems Const: Denies: fever(s), chills, body aches, fatigue or malaise Eyes: Reports: change in vision (vision is normal now); Denies: blurry vision, blind spots, photophobia, eye discharge, eye redness, floaters or seeing flashes Card: Reports: chest pain and dyspnea on exertion (chronic); Denies: palpitations, irregular heart rhythm, edema, swelling of feet/ankles, lightheadedness, syncope or pre-syncope Resp: Denies: dyspnea GI: Denies: abdominal pain : Denies: flank pain, dysuria or hematuria Musc: Denies: neck pain, back pain, extremity pain, extremity swelling, joint pain, joint swelling or joint redness Skin/Breast: Denies: rash Neuro: Denies: headache(s), numbness in extremities, weakness in extremities, sensory changes, difficulty walking, frequent falls, dizziness, confusion or Slurred speech present PFSH ED PFSH: Medical History Pleuritic chest pain Chronic constipation 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 Chronic hypoxemic respiratory failure Small cell lung cancer Nicotine use disorder PTSD (post-traumatic stress disorder) Bipolar disorder current episode depressed History of attempted suicide Hypothyroidism (acquired) Duodenitis Gastritis Sleep apnea Obesity Bipolar affect, depressed Depression Hypertension Diabetes Oxygen dependent CHF (congestive heart failure) GERD (gastroesophageal reflux disease) COPD (chronic obstructive pulmonary disease) 3L o2 , mild to mod copd responsive to bronchodilator Enrolled in chronic care management Surgical History History of appendectomy H/O colonoscopy with polypectomy H/O esophagogastroduodenoscopy Tubal ligation status S/P cholecystectomy Family History Father Lung cancer Sister Ovarian cancer Mother Diabetes Other CAD (coronary artery disease) Social History Smoking and tobacco/nicotine status: current every day tobacco/nicotine user cigarettes Packs smoked per day: 1 Years cigarettes smoked: 37 [ Other cigarette details: She had quit smoking for 8 months, but then started again.] Alcohol intake: former Year of sobriety/quit date alcohol: 1999 Substance/Drug Use: never Additional social history: She lives alone and states she drives herself to her chemo. She wants full CODE STATUS as discussed today with Fredi Curry MD on 02/05/2025 Adopted: No Caregiver/support person: No Lives independently: No Household members: family Housing: House Current gender identity: Female Physical Exam Const: COMMON NORMALS: no acute distress, patient oriented x3, no limitations, alert and well nourished GENERAL APPEARANCE: cooperative NUTRITIONAL APPEARANCE: obese ORIENTATION/CONSCIOUSNESS: Yes awake, Yes oriented to person, Yes oriented to place and Yes oriented to time HENMT: COMMON NORMALS: normocephalic and atraumatic HEAD & SCALP: normal to inspection, normocephalic and atraumatic FACE & SINUS: normal facial exam and face symmetric Eye: COMMON NORMALS: Equal, round and reactive pupils present, EOMs intact bilaterally, conjunctivae normal and no scleral icterus GENERAL EYE: appearance normal, both eyes and all related structures and normal light reflex VISUAL ACUITY: Yes acuity normal VISUAL RAMIREZ: Yes other (no current visual loss) ALIGNMENT: Yes alignment normal PERIORBITAL: periorbital findings normal EYELID: eyelids normal CONJUNCTIVA: Yes conjunctivae normal SCLERA: sclerae normal PUPIL: Yes Equal, round and reactive pupils present DIRECT OPHTHALMOSCOPY: Yes normal light reflex Neck/C-Spine: COMMON NORMALS: full ROM, no lymphadenopathy, no JVD and No carotid bruits GENERAL: Yes normal visual inspection Resp: COMMON NORMALS: normal respiratory effort and clear to auscultation bilaterally AUSCULTATION: clear to auscultation bilaterally Cardio: COMMON NORMALS: no JVD, regular rate and regular rhythm RATE: regular rate RHYTHM: regular rhythm Back/Pelvis: COMMON NORMALS: thoracic and lumbar spine normal to inspection Extremity: COMMON NORMALS: capillary refill normal, no clubbing, cyanosis or edema, no calf tenderness and no pedal edema GENERAL: Yes normal exam except as noted Neuro: ANAMARIA COMA SCALE: document GCS findings Anamaria coma scale eye opening: Spontaneous Anamaria coma scale verbal response: Orientated Anamaria coma scale motor response: Obey commands [place] coma scale total score: 15 COMMON NORMALS: patient oriented x3, moves all extremities, no focal motor deficits, no sensory deficits noted and gait normal SENSORIUM/ORIENTATION: Yes alert, Yes oriented to person, Yes oriented to place and Yes oriented to time Skin: COMMON NORMALS: no rashes or lesions noted GENERAL SKIN EXAM: no rashes or lesions noted Course Vital Signs: Vital signs: Vital Signs Temperature 98.2 F 04/23/25 11:49 Pulse Rate 98 04/23/25 15:00 Respiratory Rate 16 04/23/25 13:32 Blood Pressure 134/100 04/23/25 14:30 Pulse Oximetry 93 04/23/25 15:00 Oxygen Delivery Me thod Room Air 04/23/25 15:00 MDM - Chest Pain Medical Decision Making Patient is a nice 70-year-old female here for an episode of chest pain that started a few hours prior to arrival. Upon re-examination patient feels much better. Her vital signs are stable. Her baseline repeat troponin are unremarkable. EKG is nonischemic. Due to history of chest pain and known malignancy CTA obtained to rule out PE. This was negative. No change in her known right upper lobe mass. Patient also had a complaint of 3 episodes of transient binocular vision loss occurring last week. Visual loss was complete bilaterally only lasting for 1-2 minutes. She has no symptoms now. Symptoms not consistent homonymous hemianopia. She does have a history of migraines but never had visual loss with these. I think this can be further worked up as an outpatient primary care. Medical Records I reviewed the patient's medical records. Lab Data I reviewed the patient's lab results. 04/23/25 12:55 04/23/25 12:55 Radiology Impressions Chest X-Ray 04/23/25 11:48 Impression: 1. Shift of the heart and mediastinum from left to right unchanged. 2. Probable pleural-based scar in right upper pleural space. 3. Posterior mediastinal mass in posterior right lower lobe seen on CT chest blends with the right cardiac border. 4. Atherosclerosis. Chest CTA 04/23/25 13:04 Impression: 1. Negative for pulmonary embolic disease. 2. No change in right upper lobe mass. Laboratory Results WBC 5.93 10^3/uL (3.29-11.43) 04/23/25 12:55 RBC 3.54 10^6/uL (3.85-5.65) L 04/23/25 12:55 Hgb 10.60 g/dL (11.27-16.99) L 04/23/25 12:55 Hct 33.3 % (36-47) L 04/23/25 12:55 MCV 94.1 fl (85-98) 04/23/25 12:55 MCH 29.9 pg (27-33) 04/23/25 12:55 MCHC 31.8 g/dL (30-55) 04/23/25 12:55 RDW 16.4 % (12.1-15.1) H 04/23/25 12:55 Plt Count 228 10^3/cmm (157-399) 04/23/25 12:55 MPV 9.3 fL (7.4-10.4) 04/23/25 12:55 Neut % (Auto) 74.8 % 04/23/25 12:55 Lymph % (Auto) 13.3 % 04/23/25 12:55 [place] % (Auto) 9.4 % 04/23/25 12:55 Eos % (Auto) 1.5 % 04/23/25 12:55 Baso % (Auto) 0.5 % 04/23/25 12:55 Neut # (Auto) 4.43 10^3/uL (1.8-7.7) 04/23/25 12: Lymph # (Auto) 0.8 10^3/uL (0.8-4.8) 04/23/25 12:55 [place] # (Auto) 0.6 10^3/uL (0.2-0.9) 04/23/25 12:55 Eos # (Auto) 0.1 10^3/uL (0.0-0.8) 04/23/25 12:55 Baso # (Auto) 0.0 10^3/uL (0.0-0.1) 04/23/25 12: Nucleated RBC % (auto) 0 % 04/23/25 12: Nucleated RBCs # 0.0 /100WBC 04/23/25 12:55 PT 12.90 SECONDS (12.1-14.9) 04/23/25 12:55 INR 0.91 (0.8-1.2) 04/23/25 12:55 Sodium 138 mmol/L (136-145) 04/23/25 12:55 Potassium 3.9 mmol/L (3.5-5.1) 04/23/25 12:55 Chloride 102 mmol/L (98-107) 04/23/25 12:55 Carbon Dioxide 23 mmol/L (22-29) 04/23/25 12:55 Anion Gap 16.9 (5-19) 04/23/25 12:55 BUN 14 mg/dL (8-23) 04/23/25 12:55 Creatinine 0.6 mg/dL (0.5-0.9) 04/23/25 12:55 GFR Calculation 99.1 mL/min (90-130) 04/23/25 12:55 Glucose 93 mg/dL (65-115) 04/23/25 12:55 Calculated Osmolality 286 mOsm/kg (285-295) 04/23/25 12:55 Calcium 9.0 mg/dL (8.5-10.5) 04/23/25 12:55 Total Bilirubin 0.2 mg/dL (0.15-1.2) 04/23/25 12:55 AST 9 U/L (0-32) 04/23/25 12:55 ALT 7 U/L (0-33) 04/23/25 12:55 Alkaline Phosphatase 116 U/L (35-105) H 04/23/25 12:55 Troponin T Baseline < 6 ng/L (0-10) 04/23/25 12:55 Troponin T 120 Minute 6.44 ng/L (0-10) 04/23/25 14:00 Delta Troponin T 0.28067 ABS# (0-10) 04/23/25 14:00 Total Protein 6.1 g/dL (6.6-8.7) L 04/23/25 12:55 Albumin 4.0 g/dL (3.5-5.2) 04/23/25 12:55 Globulin 2.1 g/dL (1.3-4.6) 04/23/25 12:55 Lipase 21 U/L (13-60) 04/23/25 12:55 All radiology interpretation(s) finalized by discharge Discharge Plan Discharge Patient Disposition: Home Clinical Impression: Transient visual loss of both eyes Chest pain Qualifiers: Chest pain type: unspecified Qualified Code(s): R07.9 - Chest pain, unspecified Condition: Stable Prescriptions: No Action aspirin 81 mg tablet,delayed release (DR/EC) 81 mg PO DAILY atorvastatin 10 mg tablet 10 mg PO DAILY 90 Days Qty: 90 2RF insulin lispro [Humalog KwikPen Insulin] 100 unit/mL insulin pen See Rx Instructions SUBCUT TID PRN (Reason: blood sugar) Rx Instructions: Use per sliding scale subcutaneously three times daily. doxepin 25 mg capsule 50 mg PO BEDTIME latanoprost 0.005 % drops 1 drp ophthalmic (eye) BEDTIME gabapentin 100 mg capsule 100 mg PO BID cholecalciferol (vitamin D3) 125 mcg (5,000 unit) capsule 125 mcg PO DAILY arformoterol 15 mcg/2 mL solution for nebulization 2 ml inhalation DAILY Allergy Relief (loratadine) 10 mg capsule 10 mg PO DAILY ipratropium bromide 17 mcg/actuation HFA aerosol inhaler 2 puff inhalation Q8H PRN (Reason: Shortness Of Breath) prochlorperazine maleate [Compazine] 10 mg tablet 10 mg PO Q4H PRN (Reason: mild nausea) Qty: 30 3RF ondansetron HCl 4 mg tablet 4 mg PO Q6H PRN (Reason: nausea and vomiting) Qty: 30 3RF pantoprazole 40 mg tablet,delayed release (DR/EC) 40 mg PO BID Qty: 180 0RF venlafaxine 150 mg capsule,extended release 24hr 150 mg PO DAILY Trulicity 3 mg/0.5 mL pen injector 3 mg SUBCUT Q7D Rx Instructions: ON WEDNESDAY levothyroxine 25 mcg tablet 25 mcg PO QAM metoprolol tartrate 25 mg tablet 25 mg PO DAILY magnesium hydroxide [Dulcolax (magnesium hydroxide)] 400 mg/5 mL Suspension 30 ml PO Q2H PRN (Reason: Constipation) ubrogepant 50 mg Tablet 50 mg PO 1XD PRN (Reason: Migraine Headache) albuterol sulfate [Ventolin HFA] 90 mcg/actuation HFA aerosol inhaler 2 inh inhalation Q6H PRN (Reason: shortness of breath or wheezing) Qty: 8.5 0RF Discharge Orders: Discharge ED (Routine); Ordered 04/23/25 Ordered By: Emily Sun Referrals: Tavarez,Kiesha, HOUSE SUPERVISOR [Primary Care Provider, Nurse Practitioner] Patient Instructions: Patient Portal & Pankaj Instructions Activity Restrictions/Additional Instructions: As we discussed, blood work here was unremarkable. Recommend you follow-up with primary care for further evaluation later this week. They may recommend outpatient cardiac stress testing as well as further testing into your visual changes. Print Language: Botswanan Coding Level of Care Code ED Director Product Management for Farhat Cooper
[2025-04-23 13:01] LABS: Hematocrit 33.3 % (36-47); Hemoglobin 10.60 g/dL (11.27-16.99); Mean Corpuscular HGB Conc 31.8 g/dL (30-55); Mean Corpuscular Hemoglobin 29.9 pg (27-33); Mean Corpuscular Volume 94.1 fl (85-98); Nucleated Red Blood Cells % 0 %; Platelet Count 228 10^3/cmm (157-399); Red Blood Count 3.54 10^6/uL (3.85-5.65); White Blood Count 5.93 10^3/uL (3.29-11.43)
--- NOTE | 2025-04-23 13:04 | CT_ITS ---
WS: [id number] CTA scan of the chest with IV contrast. Additional two-dimensional coronal and sagittal reconstruction and MIP images was performed. 04/23/2025 Clinical Data: chest pain, known malignancy, chronic dyspnea Comparison: CT angio chest PE protocol, DLP: 494.[address] scans at [facility] use at least one of these dose optimization techniques: automated exposure control; mA and/or kV adjustment per patient size (includes targeted exams where dose is matched to clinical indication); or iterative reconstruction. Findings: The central pulmonary arteries and peripheral pulmonary arteries fill normally with no evidence of intraluminal filling defects. No pulmonary embolic disease is noted. The right upper lobe posterior mass remains the same. The heart size is normal with no pericardial effusion. The pulmonary arterial system and thoracic aorta demonstrate no abnormalities or dilatations. There is no axillary or significant mediastinal adenopathy. The thyroid gland shows normal enhancement. The trachea bifurcates into the bronchi. The upper abdomen shows the visualized liver, spleen, pancreas and superior poles of the kidneys are not remarkable. There are gallstones present. There is a probable left adrenal adenoma, 3 cm. 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 CT/CT angio chest PE protcl [id number] Impression: 1. Negative for pulmonary embolic disease. 2. No change in right upper lobe mass.
[2025-04-23 13:13] LABS: INR 0.91 (0.8-1.2); Prothrombin Time 12.90 SECONDS (12.1-14.9)
[2025-04-23 13:20] LABS: Troponin(5th) Baseline < 6 ng/L (0-10)
[2025-04-23 13:24] LABS: Alanine Aminotransferase 7 U/L (0-33); Albumin Level 4.0 g/dL (3.5-5.2); Alkaline Phosphatase 116 U/L (35-105); Anion Gap 16.9 (5-19); Aspartate Amino Transferase 9 U/L (0-32); Blood Urea Nitrogen 14 mg/dL (8-23); Calcium 9.0 mg/dL (8.5-10.5); Carbon Dioxide 23 mmol/L (22-29); Chloride 102 mmol/L (98-107); Creatinine Clr Calc Pharmacy 77.2342; Globulin 2.1 g/dL (1.3-4.6); Glucose 93 mg/dL (65-115); Lipase 21 U/L (13-60); Osmolality Calculated 286 mOsm/kg (285-295); Potassium 3.9 mmol/L (3.5-5.1); Sodium 138 mmol/L (136-145); Total Protein 6.1 g/dL (6.6-8.7)
[2025-04-23] MEDS: iohexol 350 mg/mL 500 mL Btl (per mL) IV (13:25)
[2025-04-23 14:34] LABS: Troponin 5 2HR 6.44 ng/L (0-10); Troponin 5 2HR Delta 0.44001 ABS# (0-10)
== END 2025-04-23 15:18 | disposition home or self-care (01) ==
PROVIDERS: Emergency Medicine; Emergency Provider Physician Assistant; PCP Nurse Practitioner Family
DX: R07.9 Chest pain, unspecified (principal); H53.123 Transient visual loss, bilateral; Z79.82 Long term (current) use of aspirin; Z79.85 Long-term (current) use of injectable non-insulin antidiabetic drugs; F17.210 Nicotine dependence, cigarettes, uncomplicated; J44.9 Chronic obstructive pulmonary disease, unspecified; E11.9 Type 2 diabetes mellitus without complications; I11.0 Hypertensive heart disease with heart failure; I50.9 Heart failure, unspecified; C34.11 Malignant neoplasm of upper lobe, right bronchus or lung
CPT/HCPCS: 71045; 71275; 80053; 83690; 84484; 85025; 85610; 93005; 94640; 99285; J9999

== ENCOUNTER 2025-04-23 15:32 | Oncology outpatient (recurring) (ONCR) | payer MEDICARE, MEDICAID, SELFPAY ==
[2025-04-23] MEDS: dexamethasone 4 mg/mL INJ 5 mL 12 MG IVP (15:40)
[2025-04-23] MEDS: LURBINECTEDIN IV (15:58)
[2025-04-23] MEDS: SODIUM CHLORIDE 0.9% IV (15:58)
[2025-04-23 16:58] VITALS: BP 129/85; PULSE 100; RESP 20; TEMP 36.2; O2SAT 95
[2025-04-23] MEDS: pegfilgrastim 6 mg/0.6 mL Kit (onpro) SUBCUT (17:00)
== END 2025-04-23 23:59 | disposition home or self-care (01) ==
PROVIDERS: Absent Provider Nurse Practitioner Family; PCP Nurse Practitioner Family; Visit Provider Internal Medicine Medical Oncology
DX: Z53.9 Procedure and treatment not carried out, unspecified reason (principal); C34.11 Malignant neoplasm of upper lobe, right bronchus or lung; C78.1 Secondary malignant neoplasm of mediastinum; Z87.891 Personal history of nicotine dependence; R45.851 Suicidal ideations; R29.6 Repeated falls; Z92.3 Personal history of irradiation; Z45.2 Encounter for adjustment and management of vascular access device
CPT/HCPCS: 96375; 96377; 96413; J1100; J2469; J2506; J7050; J9223

== ENCOUNTER 2025-05-18 12:39 | Emergency (ER) | payer MEDICARE, MEDICAID, SELFPAY ==
--- OUTSIDE RECORDS SUMMARY | 2025-05-18 12:53 | XMS_ITS | Clinical Summary ---
Author Organization [facility] Address [address] [place] [address] Care Team Providers Care Electroneurodiagnostic Technician Name Role Phone Radha Xiong MD Primary Care Provider [phone] Allergies Active Allergy Reactions Criticality Noted Date [...] 1 tablet (25 mcg total) by mouth security sales manager before breakfast 01/05/20 24 Active losartan (COZAAR) [...] vaccine 65+ Completed 023, 05/31/2018, 09/05/2012 Insurance [place] [employer] PPO Advance Directives For more information, please contact: [phone] * Full Code (Latest Code Status on File) Date Activated Date Inactivated Comments 03/22/2024 10:33 PM 03/29/2024 5:09 PM Care Teams Electroneurodiagnostic Technician Relationship Specialty Start Date End Date Radha Xiong MD [address] [place] [address] PCP - General Family Medicine 03/22/24
[2025-05-18 12:54] VITALS: BP 141/100; PULSE 94; RESP 16; TEMP 36.8; O2SAT 94; BMI 40.7
--- NOTE | 2025-05-18 12:56 | W.ED.GENADLT ---
HPI - General Adult General: Chief complaint: General Medical Stated complaint: Wants Port Removed Time Seen by Provider: 05/18/25 12:43 History of Present Illness: 70-year-old female who presents to the emergency room wanting her port deaccessed she was at CT had her port accessed they left the access in place she is not having any symptoms whatsoever she has not been ill no other complaints Related Data Home Medications ?Medication ?Instructions ?Recorded ?Confirmed aspirin 81 mg tablet,delayed 81 mg PO DAILY 10/17/19 05/21/25 release insulin lispro 100 unit/mL See Rx Instructions SUBCUT TID PRN 08/02/23 05/21/25 subcutaneous pen (Humalog KwikPen blood sugar (U-100) Insulin) dulaglutide 3 mg/0.5 mL 3 mg SUBCUT Q7D 03/22/24 05/21/25 subcutaneous pen injector (Trulicity) levothyroxine 25 mcg tablet 25 mcg PO QAM 03/22/24 05/21/25 metoprolol tartrate 25 mg tablet 25 mg PO DAILY 03/22/24 05/21/25 doxepin 25 mg capsule 50 mg PO BEDTIME 05/29/24 05/21/25 latanoprost 0.005 % eye drops 1 drp ophthalmic (eye) BEDTIME 05/29/24 05/21/25 venlafaxine 150 mg 150 mg PO DAILY 11/14/24 05/21/25 capsule,extended release 24 hr magnesium hydroxide 400 mg/5 mL 30 ml PO Q2H PRN Constipation 02/05/25 05/21/25 oral suspension (Dulcolax (magnesium hydroxide)) ubrogepant 50 mg tablet 50 mg PO 1XD PRN Migraine Headache 02/05/25 05/21/25 arformoterol 15 mcg/2 mL solution 2 ml inhalation DAILY 02/19/25 05/21/25 for nebulization cholecalciferol (vitamin D3) 125 125 mcg PO DAILY 02/19/25 05/21/25 mcg (5,000 unit) capsule ipratropium bromide 17 2 puff inhalation Q8H PRN 02/19/25 05/21/25 mcg/actuation HFA aerosol inhaler Shortness Of Breath loratadine 10 mg capsule (Allergy 10 mg PO DAILY 02/19/25 05/21/25 Relief (loratadine)) Previous Rx's ?Medication ?Instructions ?Recorded atorvastatin 10 mg tablet 10 mg PO DAILY 90 days #90 tabs 01/05/24 albuterol sulfate 90 mcg/actuation 2 inh inhalation Q6H PRN shortness 02/06/25 aerosol inhaler (Ventolin HFA) of breath or wheezing #8.5 grams pantoprazole 40 mg tablet,delayed 40 mg PO BID #180 tabs 02/06/25 release gabapentin 300 mg capsule 300 mg PO BID #60 caps 04/23/25 dexamethasone 2 mg tablet 2 mg PO BID #30 tabs 05/10/25 loperamide 2 mg capsule 2 mg PO .COMPLEX PRN loose stool 05/15/25 #24 caps ondansetron HCl 4 mg tablet 4 mg PO Q6H PRN nausea and 05/15/25 vomiting #30 tabs prochlorperazine maleate 10 mg 10 mg PO Q4H PRN mild nausea #30 05/15/25 tablet (Compazine) tabs lactulose 10 gram/15 mL oral 20 g (30 mL) PO DAILY PRN 05/21/25 solution constipation #1,200 mL Allergies Allergy/AdvReac Type Severity Reaction Status Date / Time codeine Allergy Unknown ADR-Nausea Verified 05/21/25 07:53 adhesive tape Allergy ALGY-Bliste Verified 05/21/25 07:53 r ketorolac (From Toradol) Allergy Unknown Verified 05/21/25 07:53 melatonin Allergy ADR-Nausea Verified 05/21/25 07:53 [facility] ED PFSH: Medical History Chronic constipation 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 Pleuritic chest pain Chronic hypoxemic respiratory failure Small cell lung cancer Nicotine use disorder PTSD (post-traumatic stress disorder) Bipolar disorder current episode depressed History of attempted suicide Hypothyroidism (acquired) Duodenitis Gastritis Sleep apnea Obesity Bipolar affect, depressed Depression Hypertension Diabetes Oxygen dependent CHF (congestive heart failure) GERD (gastroesophageal reflux disease) COPD (chronic obstructive pulmonary disease) 3L o2 , mild to mod copd responsive to bronchodilator Enrolled in chronic care management Surgical History History of appendectomy H/O colonoscopy with polypectomy H/O esophagogastroduodenoscopy Tubal ligation status S/P cholecystectomy Family History Father Lung cancer Sister Ovarian cancer Mother Diabetes Other CAD (coronary artery disease) Social History Smoking and tobacco/nicotine status: current every day tobacco/nicotine user cigarettes Packs smoked per day: 1 Years cigarettes smoked: 37 [ Other cigarette details: She had quit smoking for 8 months, but then started again.] Alcohol intake: former Year of sobriety/quit date alcohol: 1999 Substance/Drug Use: never Additional social history: She lives alone and states she drives herself to her chemo. She wants full CODE STATUS as discussed today with Fredi Curry MD on 02/05/2025 Adopted: No Caregiver/support person: No Lives independently: No Household members: family Housing: House Current gender identity: Female Physical Exam Const: COMMON NORMALS: no acute distress GENERAL APPEARANCE: cooperative and comfortable ORIENTATION/CONSCIOUSNESS: Yes awake, Yes oriented to person, Yes oriented to place and Yes oriented to time HENMT: COMMON NORMALS: normocephalic, atraumatic and hearing grossly normal bilaterally HEAD & SCALP: normocephalic and atraumatic Resp: COMMON NORMALS: normal respiratory effort, No retractions, No use of accessory muscles and clear to auscultation bilaterally AUSCULTATION: clear to auscultation bilaterally Cardio: COMMON NORMALS: regular rate, regular rhythm and No murmurs present (Cardio) RATE: regular rate RHYTHM: regular rhythm Neuro: SENSORIUM/ORIENTATION: Yes oriented to person, Yes oriented to place and Yes oriented to time Skin: COMMON NORMALS: no rashes or lesions noted GENERAL SKIN EXAM: no rashes or lesions noted Course Vital Signs: Vital signs: Vital Signs Temperature 98.3 F 05/18/25 12:54 Pulse Rate 94 05/18/25 12:54 Respiratory Rate 16 05/18/25 12:54 Blood Pressure 141/100 05/18/25 12:54 Pulse Oximetry 94 05/18/25 12:54 Oxygen Delivery Me thod Room Air 05/18/25 12:54 MDM - General Adult Medical Decision Making No specific complaint or problem at this time no emergent condition port deaccessed patient discharged home No radiology studies performed this visit Discharge Plan Discharge Patient Disposition: Home Clinical Impression: Encounter for care related to vascular access port Condition: Stable Prescriptions: No Action aspirin 81 mg tablet,delayed release (DR/EC) 81 mg PO DAILY atorvastatin 10 mg tablet 10 mg PO DAILY 90 Days Qty: 90 2RF gabapentin 300 mg capsule 300 mg PO BID Qty: 60 0RF insulin lispro [Humalog KwikPen Insulin] 100 unit/mL insulin pen See Rx Instructions SUBCUT TID PRN (Reason: blood sugar) Rx Instructions: Use per sliding scale subcutaneously three times daily. doxepin 25 mg capsule 50 mg PO BEDTIME latanoprost 0.005 % drops 1 drp ophthalmic (eye) BEDTIME cholecalciferol (vitamin D3) 125 mcg (5,000 unit) capsule 125 mcg PO DAILY arformoterol 15 mcg/2 mL solution for nebulization 2 ml inhalation DAILY Allergy Relief (loratadine) 10 mg capsule 10 mg PO DAILY ipratropium bromide 17 mcg/actuation HFA aerosol inhaler 2 puff inhalation Q8H PRN (Reason: Shortness Of Breath) lactulose 10 gram/15 mL solution 20 g PO DAILY PRN (Reason: constipation) Qty: 1200 2RF Rx Instructions: Take 30 mL every 2 hours until bowel movement. If no bowel movement within 72 hours, may repeat. pantoprazole 40 mg tablet,delayed release (DR/EC) 40 mg PO BID Qty: 180 0RF dexamethasone 2 mg tablet 2 mg PO BID Qty: 30 0RF prochlorperazine maleate [Compazine] 10 mg tablet 10 mg PO Q4H PRN (Reason: mild nausea) Qty: 30 3RF loperamide 2 mg capsule 2 mg PO .COMPLEX PRN (Reason: loose stool) Qty: 24 0RF Rx Instructions: Follow package instructions ondansetron HCl 4 mg tablet 4 mg PO Q6H PRN (Reason: nausea and vomiting) Qty: 30 3RF venlafaxine 150 mg capsule,extended release 24hr 150 mg PO DAILY Trulicity 3 mg/0.5 mL pen injector 3 mg SUBCUT Q7D Rx Instructions: ON WEDNESDAY levothyroxine 25 mcg tablet 25 mcg PO QAM metoprolol tartrate 25 mg tablet 25 mg PO DAILY magnesium hydroxide [Dulcolax (magnesium hydroxide)] 400 mg/5 mL Suspension 30 ml PO Q2H PRN (Reason: Constipation) ubrogepant 50 mg Tablet 50 mg PO 1XD PRN (Reason: Migraine Headache) albuterol sulfate [Ventolin HFA] 90 mcg/actuation HFA aerosol inhaler 2 inh inhalation Q6H PRN (Reason: shortness of breath or wheezing) Qty: 8.5 0RF Discharge Orders: Discharge ED (Routine); Ordered 05/18/25 Ordered By: Carlos Almeida Referrals: Corby,Kiesha, PROP MAKER [Primary Care Provider, Nurse Practitioner] Patient Instructions: Opioid Safety, Pain Management, Patient Portal & Pankaj Instructions Activity Restrictions/Additional Instructions: [facility]. It is very important that you follow up as instructed or that you return to the Emergency Department should you have concerns or if your condition changes or worsens in any way. Emergency department visits are focused on emergent conditions, in some cases you may require further evaluation on an outpatient basis. You were seen for D accessing of your port follow-up with oncology as previously scheduled. (Please note that included in your discharge packet is information concerning opioid safety and pain management. This information is given to all patients were discharged from the ER regardless of their discharge diagnosis or the medicines they usually take or are prescribed.) Print Language: Sudanese Coding Level of Care Code ED Canvas Cutter for Farhat Cooper
--- NOTE | 2025-05-18 13:17 | PC.NURSE ---
PATIENT PORT DE-ACCESSED BY THIS NURSE. TOLERATED WELL.
== END 2025-05-18 13:17 | disposition home or self-care (01) ==
PROVIDERS: Emergency Provider Family Medicine; PCP Nurse Practitioner Family
DX: Z45.2 Encounter for adjustment and management of vascular access device (principal); Z79.4 Long term (current) use of insulin; Z79.82 Long term (current) use of aspirin; Z79.85 Long-term (current) use of injectable non-insulin antidiabetic drugs; F17.210 Nicotine dependence, cigarettes, uncomplicated; J44.9 Chronic obstructive pulmonary disease, unspecified; E11.9 Type 2 diabetes mellitus without complications; I11.0 Hypertensive heart disease with heart failure; I50.9 Heart failure, unspecified; Z85.118 Personal history of other malignant neoplasm of bronchus and lung
CPT/HCPCS: 99281

== ENCOUNTER 2025-05-21 19:39 | Emergency (ER) | payer MEDICARE, MEDICAID, SELFPAY ==
--- OUTSIDE RECORDS SUMMARY | 2025-05-21 19:44 | XMS_ITS | Encounter Summary ---
Author Organization [facility] Address [address] [place] [address] Care Team Providers Care Payroll Accounting Clerk Name Role Phone Radha Cowan MD Primary Care Provider [phone] Encounter Details Date Type Department Care Team (Latest Contact Info) Description 02/20/1999 Outpatient Historical [facility] Corey Burkett, Augusto Tang MD [address] [place] [id number] Vaginitis and vulvovaginitis, unspecified (Primary Dx); Bipolar I disorder, most recent episode (or current) unspecified (CMS/[facility]ERLY [facility]) Social History Tobacco Use Types Packs/Day Years Used Date Smoking Tobacco: Never Assessed Comments Unknown Sex and Gender Information Value Date Recorded Sex Assigned at Not on file Legal Sex Female 3:33 AM SASH FINISHER Gender Identity Not on file Sexual Orientation [...] R/O COVID-19 07/25/2020 07/25/2020 07/27/2020 5:01 AM SASH FINISHER R/O COVID-19 09/30/2020 09/30/202009/3009/30/2020 7:23 PM SASH FINISHER documented as of this encounter Care Teams Payroll Accounting Clerk Relationship Specialty Start Date End Date Radha Cowan MD [address] [phone] PCP - General Family Practice 10/24/20 documented as of this encounter
--- OUTSIDE RECORDS SUMMARY | 2025-05-21 19:44 | XMS_ITS | Encounter Summary ---
Author Organization [facility] Address [address] [place]: [place] [address] Care Team Providers Care Signals Collector/Analyst Name Role Phone Radha Cowan MD Primary Care Provider [phone] Encounter Details Date Type Department Care Team (Late st Contact Info) Description 11/21/1999 Outpatient Historical Augusto iNcole Jr., MD [address] [place] [id number] Social History Tobacco Use Types Packs/Day Years Used Date Smoking Tobacco: Never Assessed Comments Unknown Sex and Gender Information Value Date Recorded Sex Assigned at Not on file Legal Sex Female 3:33 AM WARP COILER Gender Identity Not on file Sexual Orientation Not on file documented as of this encounter Plan of Treatment Not on file documented as of this encounter Visit Diagnoses Not on filedocumented in this encounter Additional Health Concerns Infection Onset Date Last Indicated Resolved Time R/O COVID-19 05/16/2020 05/16/2020 05/18/2020 12:3 1 AM CDT R/O COVID-19 07/25/2020 07/25/2020 07/27/2020 5:01 AM WARP COILER R/O COVID-19 09/30/2020 09/30/2020 09/30/2020 7:23 PM WARP COILER documented as of this encounter Care Teams Signals Collector/Analyst Relationship Specialty Start Date End Date Radha Cowan MD [address] [place] [phone] PCP - General Family Practice 10/24/20 documented as of this encounter
--- OUTSIDE RECORDS SUMMARY | 2025-05-21 19:44 | XMS_ITS | Encounter Summary ---
Author Organization [facility] Address [address] [place] [address] Care Team Providers Care Team Driver Name Role Phone Radha Cowan MD Primary Care Provider [phone] Reason for Referral * Radiology Services (Routine) - Closed Specialty Diagnoses / Procedures Referred By Contac t Referred To Contact Radiology Diagnoses Lower extremity pain, right Procedures US VENOUS DOPPLER LEG RIGHT Raad Bhatt FNP [address] [place] [address] Phone: tel: fax: [facility] [address] [facility] [address] [place] [address] Phone: tel: fax: Referral ID Status Reason Start Date Expiration Date V isits Requested Visits Authorized [id number] Closed [facility] CTS to Schedule (SGF) 06/17/2018 07/18/2019 1 1 Encounter Details Date Type Department Care Team (Latest Contact Info) Description 06/17/2018 Ancillary Orders [facility] Centralized Scheduling [address] [facility] [address] [place] [address] Raad Bhatt FNP [address] [place] [address] Lower extremity pain, right Social History Tobacco Use Types Packs/Day Years Used Date Smoking Tobacco: Every Day Cigarettes 1 20 Smokeless Tobacco: Never Alcohol Use Standard Drinks/Week Comments Yes 0 (1 standard drink = 0.6 oz pur e alcohol) occasional Comments No Sex and Gender Information Value Date Recorded Sex Assigned at Not on file Legal Sex Female 3:33 AM LADLE FILLER Gender Identity Not on file Sexual Orientation [...] PM CDT Narrative 06/20/2018 10:03 PM CDT [facility] Radiology Services - Noninvasive Vascular [address] [address] Noninvasive Vascular Lab Venous Exam Unilateral Lower Extremity Duplex Patient: Marli Eli Study ID: US VENOUS DOPPLE Gender: F : 1955 Age: 63 Room: Height: Weight: BSA: Pt status: Outpatient Study Date: 06/17/2018 Study Time: 02:07:05 PM BSA: Ordering: Raad Bhatt Interpreting:Christo Hanson MD, RPVI Cannery Worker: Henok Bailey Summary Impression: No evidence of [...] Procedure Note Christo Hanson MD - 06/20/2018 [facility] Radiology Services - Noninvasive Vascular [address] [address] Noninvasive Vascular Lab Venous Exam Unilateral Lower Extremity Duplex Patient: Marli Eli Study ID: US VENOUS DOPPLE Gender: F : 1955 Age: 63 Room: Height: Weight: BSA: Pt status: Outpatient Study Date: 06/17/2018 Study Time: 02:07:05 PM BSA: Ordering: Raad Bhatt Interpreting:Christo Hanson MD, RPVI Cannery Worker: Henok Bailey Summary Impression: No evidence of [...] MD, RPVI Confirmed 06/20/2018 22:03 Raad Bhatt [facility] ORDERABLES Final Resul t documented in this encounter Visit Diagnoses Diagnosis Lower extremity pain, right Lower extremity pain, right documented in this encounter Additional Health Concerns Infection Onset Date Last Indicated Resolved Time R/O COVID-19 05/16/2020 05/16/2020 05/18/2020 12:3 1 AM CDT R/O COVID-19 07/25/2020 07/25/2020 07/27/2020 5:01 AM LADLE FILLER R/O COVID-09/30/2020 09/30/2020 09/30/2020 7:23 PM LADLE FILLER documented as of this encounter Care Teams Team Driver Relationship Specialty Start Date End Date Radha Cowan MD [address] [address] PCP - General Family Practice 10/24/20 documented as of this encounter
--- OUTSIDE RECORDS SUMMARY | 2025-05-21 19:44 | XMS_ITS | Encounter Summary ---
Author Organization [facility] Address [address] [place] [address] Care Team Providers Care Repeat Photocomposing Machine Operator Name Role Phone Radha Cowan MD Primary Care Provider Encounter Details Date Type Department Care Team (Latest Contact Info) Description 06/21/2018 Ancillary Orders [facility] Admitting [address] [place] [address] Raad Bhatt, STAIN APPLICATOR [address] [place] [phone] Osteoarthritis of both knees, unspecified osteoarthritis type Social History Tobacco Use Types Packs/Day Years Used Date Smoking Tobacco: Every Day Cigarettes 1 20 Smokeless Tobacco: Never Alcohol Use Standard Drinks/Week Comments Yes 0 (1 standard drink = 0.6 oz pur e alcohol) occasional Comments No Sex and Gender Information Value Date Recorded Sex Assigned at Not on file Legal Sex Female 3:33 AM DIGITAL COMPUTER SYSTEMS ANALYST Gender Identity Not on file Sexual [...] R/O COVID-19 07/25/2020 07/25/2020 07/27/2020 5:01 AM DIGITAL COMPUTER SYSTEMS ANALYST R/O COVID-19 09/30/2020 09/30/2020 09/30/2020 7:23 PM DIGITAL COMPUTER SYSTEMS ANALYST documented as of this encounter Care Teams Repeat Photocomposing Machine Operator Relationship Specialty Start Date End Date Radha Cowan MD [address] [phone] PCP - General Family Practice 10/24/20 documented as of this encounter
--- OUTSIDE RECORDS SUMMARY | 2025-05-21 19:44 | XMS_ITS | Clinical Summary ---
Author Organization [facility] Address [facility] [place] [address] Care Team Providers Care Vmware Architect Name Role Phone Radha Cowan MD Primary [...] 6 months. 1 Each 0 Active Insulin [place], Disposable, (Lite Touch Insulin Pen [place]) 31 gauge x 5/16 Needle 100 Each by [facility].(Non-Drug; Combo Route) route. Active metFORMIN (GLUCOPHAGE) 1,000 [...] hyperglycemia, without long-term current use of insulin ([facility]),Chroni c obstructive pulmonary disease, unspecified COPD type ([facility]),Benign hypertension Take 1 Tablet (150 mg) by [...] deliveryIndicati ons:Respiratory failure with hypoxia, unspecified chronicity ([facility]) Home Oxygen Concentrator yes at 3 L/M [...] drink = 0.6 oz pur e alcohol) Financial Resource Strain Answer Date R ecorded How hard is it for you to pa y for the very basics like food, housing, medical care, and heating? Not hard at all 01/08/2021 Food Insecurity Answer Date Recorded In the past 12 months, have you worried that your food would run out before you had money to buy more? Never true 01/08/2021 In the past 12 months, did y ou run out of food and didn't have money to buy more? Never true 01/08/2021 Transportation Needs Answer Date Record ed In the past 12 months, has l ack of transportation kept you from medical appointments or from getting medications? No 01/08/2021 Lack of Transportation (Non-Medical) Not on file 01/08/2021 Comments No Sex and Gender Information Value Date Recorded Sex Assigned at Not on file Legal Sex Female 3:33 AM DRILLING FOREMAN Gender Identity Not on file Sexual Orientation [...] EXAM 01/08/2022 01/08/2021 LDL CHOLESTEROL ANNUAL 01/08/2022 , 06/27/2020, 04/09/2020, Additional history exists [place] ([place]) Preventative Visit/Annual Wellness Visit 09/06/2024 01/08/2021 INFLUENZA VACCINE (#1) 2025 0, 05/17/2019, 08/11/2002, Additional history exists COVID-19 Vaccine (2024-2 6 season) 2025 12/05/2020 COLORECTAL CANCER SCREENING (AUTO ORDER) 01/11/2029 01/11/2019, [...] complication, without long-term current use of insulin ([facility]/HCC) MAMMO SCREEN BILAT W OR WO CAD Routine 10/30/2020 1:26 PM DRILLING FOREMAN Screening mammogram, encounter for MICROALBUMIN/CREATI NINE RATIO, RANDOM UR Routine 12/19/2019 9:05 AM CDT Type 2 diabetes mellitus with hyperglycemia, without long-term current use of insulin (CMS/HCC) Chronic obstructive pulmonary disease, unspecified COPD type (CMS/HCC) Benign hypertension from Last 3 Months or Most Recently Relevant to Health Maintenance Results * LDL CHOLESTEROL, DIRECT (01/08/2021 11:00 AM CDT) LDL CHOLESTEROL, DIRECT 93 <100 mg/dL 01/08/2021 9:[address] [facility] Blood Venipuncture / Unknown 01/08/2021 11:00 AM CDT 01/08/2021 7:[address] [facility]OM[facility] GARC[facility] - 01/08/2021 9:13 PM CDT LDL CHOLESTEROL mg/dL LDL <70, OPTIMAL if have Atherosclerotic cardiovascular disease (ASCVD) or intermediate or higher (>7.5%) 10 year risk of ASCVD including most adults with diabetes. LDL <100, Optimal in adult patients with low (<7.5%) 10 year ASCVD risk LDL 100-160, Suboptimal LDL >160, High LDL >190, Very high Based on AHA/NCEP guidelines Junacarlos DELGADO CHEMISTRY ORDERABLES Final Re sult Performing Organization Address [facility]/ZIP Co de Phone Number [facility]-OM[facility] RADHA CLIA# [id number] [address] [place] [address] * (ABNORMAL) HEMOGLOBIN A1C (01/08/2021 11:00 AM CDT) HEMOGLOBIN A1C 7.5(H) See Comment % 01/08/2021 8:[address] [facility] GARC[facility] EST. AVG GLUCOSE, A1C 169 mg/dL 01/08/2021 8:[address] [facility] Blood Venipuncture / Unknown 01/08/2021 11:00 AM CDT 01/08/2021 7:53 PM CDT [facility]-PARK RADHA - 01/08/2021 8:17 PM CDT HGB A1C INTERPRETATION NORMAL: <5.7% PRE-DIABETES: 5.7 - 6.4% DIABETES: 6.5% OR GREATER Falsely low A1C measurements can occur when: 1. Anemia and/or hemolytic anemia is present. 2. Hemoglobin variants present. 3. Renal failure. 4. Transfusion of blood product in the last 120 days. We recommend ordering a fructosamine test(QCS2184) to more accurately assess glycemic status if any of the above conditions are present. Juancarlos DELGADO CHEMISTRY ORDERABLES Final Re sult Performing Organization Address [facility]/ZIP Co de Phone Number [facility]OM[facility] GARCIA CLIA# [id number] [address] [place] [address] * MAMMO SCREEN BILAT W OR WO CAD (10/30/2020 1:26 PM DRILLING FOREMAN) Anatomical Region Laterality Modality Breast Bilateral Mammography 10/30/2020 1:29 PM DRILLING FOREMAN Impressions 11/03/2020 11:28 AM DRILLING FOREMAN : Focal asymmetry in the upper outer quadrant of the left breast for which additional imaging evaluation is recommended. BI-RADS ASSESSMENT: 0 - Incomplete Recommendation: Additional Imaging [id number] Narrative 11/03/2020 11:28 AM DRILLING FOREMAN EXAM: MAMMO SCREEN BILAT W OR WO [...] Reference Range mg/dL 12/19/2019 8:[address] [facility] CREATININE, URINE 66.3 29.0 - 226.0 mg/dL 12/19/2019 8:[address] [facility] Comment:Reference Range vari es with fluid intake and diet. MICROALBUMIN/C REAT RATIO, UR 18.1 <25.0 mg/g 12/19/2019 8:[address] [facility] Urine URINE SPECIMEN OBTAINED BY CLEAN CATCH PROCEDURE / Unknown Collection / Unknown 12/19/2019 9:05 AM CDT 12/19/2019 7:[address] [facility] - 12/19/2019 8:46 PM CDT Condition Microalbumin/Creat ratio Normal Males <17 Normal Females <25 Microalbuminuria Males 17-299 Microalbuminuria Females 25-299 Overt proteinuria >=300 us [place] NP URINE ORDERABLES Final Result [facility] GARCIA CLIA# [id number] [facility] [place] [address] from Last 3 Months or Most Recently Relevant to Health Maintenance [place] [address] [place] [address] AND [facility] MEDICAID [place] Advance Directives For more information, please contact: [phone] Documents on File Type Date Recorded Patient Wool Classer Expl anation Advance Directive POA 01/24/2012 7:28 AM Advance Directive Living Will 01/24/2012 Advance Directive POA 01/22/2012 10:32 AM Health Care Directive * Full Code (Latest Code Status on File) Date Activated Date Inactivated Comments 07/18/2015 11:12 PM 07/24/2015 2:39 PM Care Teams Vmware Architect Relationship Specialty Start Date End Date Radha Cowan MD [address] [place] [phone] PCP - General Family Practice 10/24/20
--- OUTSIDE RECORDS SUMMARY | 2025-05-21 19:44 | XMS_ITS | Encounter Summary ---
Author Organization [facility] Address [address] [place] [address] Care Team Providers Care Health Screener Name Role Phone Radha Cowan MD Primary Care Provider Encounter Details Date Type Department Care Team (Latest Contact Info) Description 04/17/1999 Outpatient Historical [facility] Augusto Nicole Jr., MD [address] [place] [phone] Chest pain, unspecified (Primary Dx); Edema; Major depressive disorder, single episode, unspecified Social History Tobacco Use Types Packs/Day Years Used Date Smoking Tobacco: Never Assessed Comments Unknown Sex and Gender Information Value Date Recorded Sex Assigned at Not on file Legal Sex Female 3:33 AM BONE DRIER Gender Identity Not on file Sexual Orientation [...] R/O COVID-19 07/25/2020 07/25/2020 07/27/2020 5:01 AM BONE DRIER R/O COVID-19 09/30/2020 09/30/2020 09/30/2020 7:23 PM BONE DRIER documented as of this encounter Care Teams Health Screener Relationship Specialty Start Date End Date Radha Cowan MD [address] [phone] PCP - General Family Practice 10/24/20 documented as of this encounter
--- OUTSIDE RECORDS SUMMARY | 2025-05-21 19:44 | XMS_ITS | Patient Health Record ---
Author Organization [facility] Address [address] [place] [address] Care Team Providers Care Special Education Supervisor Name Role Phone Augusto Nicole [phone] Allergies Allergen (clinical drug ingredient) Drug/Non Drug Allergy documented on EMR Reaction Allergy Type Onset Date Status codeine Codeine Unknown Drug Allergy 09/07/2003 Active Reason For Referral No Information Medications Medication SIG (Take, Route, Frequency, Duration) Notes Start Date End Date Status Potassium Chloride ER 10 MEQ Capsule Extended Release Take 1 cap by mouth daily Oral; Duration: 30 Potassium Chloride 10mEq Capsules, Extended Release Take 1 cap by mouth daily #30 (Thirty) capsule(s) 10/30/2013 0 Active SUMAtriptan Succinate 50 MG Tablet Take 1 tablet(s) by mouth prn for migraine Oral; Duration: 30 Sumatriptan 50mg Tablet Take 1 tablet(s) by mouth prn for migraine #6 (Six) tablet(s) 01/04/2014 0 Active metFORMIN HCl 1 Tab BID with Meals; Duration: 30 *please review for potential update for e-prescription and drug interaction check* Metformin HCl 1,000mg Tablets, Extended Release 1 Tab BID with Meals #60 (Sixty) tablet(s) 10/30/2013 0 Active Onglyza 2.5 mg Tablet Take 1 tablet(s) by mouth daily Oral; Duration: 30 Onglyza (Saxagliptin) 2.5mg Tablet Take 1 tablet(s) by mouth daily #30 (Thirty) tablet(s) 08/09/2013 0 Active Ventolin HFA 108 (90 Base) MCG/ACT Aerosol Solution Inhale 2 puff(s) by mouth q 4 to 6 hr Inhalation; Duration: 30 Ventolin HFA (Albuterol) 90mcg/1actuation Oral Inhaler Inhale 2 puff(s) by mouth q 4 to 6 hr #1 (One) inhaler(s) 03/10/2013 0 Active hydroCHLOROthiazide 25 MG Tablet Take tablet(s) by mouth daily Oral; Duration: 30 Hydrochlorothiazi de (HCTZ) 25mg Tablet Take tablet(s) by mouth daily #15 (Fifteen) tablet(s) 01/04/2014 0 Active Pravastatin Sodium 80 MG Tablet Take 1 tablet(s) by mouth at bedtime Oral; Duration: 30 Pravastatin 80mg Tablet Take 1 tablet(s) by mouth at bedtime #30 (Thirty) tablet(s) 11/27/2013 0 Active Victoza 0.6 mg/0.1 mL (18 mg/3 mL) pen injector Inject 0.6mg SC once daily X 14days, then 1.2 mg SC for 14 days then increase to 1.8 mg daily; Duration: 30 *please review for potential update for e-prescription and drug interaction check* Victoza (Liraglutide) 6mg/1ml Injection Inject 0.6mg SC once daily X 14days, then 1.2 mg SC for 14 days then increase to 1.8 mg daily #1 (One) prefilled pen 11/27/2013 0 Active Atenolol 50 MG Tablet Take 1 tablet(s) by mouth daily Oral; Duration: 30 Atenolol 50mg Tablet Take 1 tablet(s) by mouth daily #30 (Thirty) tablet(s) 08/09/2013 0 Active Diovan 320 MG Tablet Take 1 tablet(s) by mouth daily Oral; Duration: 30 Diovan (Valsartan) 320mg Tablet Take 1 tablet(s) by mouth daily #30 (Thirty) tablet(s) 08/09/2013 0 Active Immunizations Vaccine Route Administration Date Status Comme nts Flu vaccine no Preserv 3 and > Unknown 06/10/2010 Admin istered Flu vaccine no Preserv 3 and > Unknown 07/11/2012 Admin istered Flu vaccine no Preserv 3 and > Unknown 06/13/2013 Admin istered Social History Social History Additional Details Category Social Info Options Details zzMigrated Social History Migrated Social History Advance Directive: Current and Verified Supported by Advance Directive Signed on 10/6/11, Allow IV and tube nutrition, allow surgery, allow antibiotics, allow mechanical ventilator, allow radiation therapy, allow dialysis, allow chemotherapy, allow CPR Other Allow Organ Donation: Patient Consents to Organ Donation Occupation: Unemployed. Education - Grade 12 Problems Problem Type SNOMED Code ICD Code Onset Dates Problem Status W/U Status Risk Notes Problem Scabies (171311667) Scabies (133.0) 12/05 Problem resolved confirmed [id number]- Problem Bipolar affective disorder, currently depressed, mild (353381920) Bipolar I disorder, most recent episode (or current) depressed, mild (296.51) 2009 Problem resolved confirmed [id number]- Problem Morbid obesity (106405647) Morbid obesity (278.01) 2003 Problem resolved confirmed [id number]- Problem Subarachnoid hemorrhage (19837103) Subarachnoid hemorrhage (430) 2010 Problem resolved confirmed [id number]- Problem Acute respiratory failure (20265010) Acute respiratory failure (518.81) 2016 Problem resolved confirmed [id number]- Problem Female stress incontinence (55242952) Female stress incontinence (625.6) 2013 Problem resolved confirmed [id number]- Problem Altered consciousnes s (3268350) Transient alteration of awareness (780.02) 2007 Problem resolved confirmed [id number]- Problem Headache (59009651) Headache (784.0) 04/06 Problem resolved confirmed [id number]- Problem Shortness of breath (513074268) Shortness of breath (786.05) 2007 Problem resolved confirmed [id number]- Problem Wheezing (34453688) Wheezing (786.07) 2010 Problem resolved confirmed [id number]- Problem Cough (31438259) Cough (786.2) 2005 Problem resolved confirmed [id number]- Problem Heartburn (00513654) Heartburn (787.1) 2007 Problem resolved confirmed [id number]- Problem Diarrhea (10393100) Diarrhea (787.91) 2007 Problem resolved confirmed [id number]- Problem Dysuria (38147559) Dysuria (788.1) 2008 Problem resolved confirmed [id number]- Problem Urge incontinence of urine (84115060) Urge incontinence (788.31) 2007 Problem resolved confirmed [id number]- Problem Urinary frequency (981970788) Urinary frequency (788.41) 2011 Problem resolved confirmed [id number]- Problem Gynecological examination normal (165325321117114) Routine gynecological examination (V72.31) 2008 Problem resolved confirmed [id number]- Problem Sleep apnea (39075571) Sleep apnea (780.57) 2014 Problem resolved confirmed [id number]- Problem Rash (104853542) Rash (782.1) 2011 Problem resolved confirmed [id number]- Problem Depression (937945267) Depression (311) 2004 Problem resolved confirmed [id number]- Problem Low back pain (441947096) Low back pain (724.2) 2010 Problem resolved confirmed [id number]- Problem Thoracic back pain (446573902) Upper back pain (724.1) 2008 Problem resolved confirmed [id number]- Problem Headache (23662504) Headache (307.81) 2009 Problem resolved confirmed [id number]- Problem Hypercholesterolemia (55782448) Hypercholesterolemia (272.0) 2003 Problem resolved confirmed [id number]- Problem Congenital heart disease (84553057) Imperfect heart valve (746.89) 2009 Problem resolved confirmed [id number]- Problem Major depression, single episode (49393851) Major depression, single episode, unspecified (296.20) 2003 Problem resolved confirmed [id number]- Problem Tuberculosis screening (955108110) Screening for pulmonary tuberculosis (V74.1) 2010 Problem resolved confirmed [id number]- Problem Shortness of breath (258277739) Shortness of breath (786.09) 2010 Problem resolved confirmed [id number]- Problem Shoulder pain (30974736) Shoulder pain (719.41) 2004 Problem resolved confirmed [id number]- Problem Onychomycosis caused by dermatophyte (344147700) Toe onychomycosis (110.1) 2004 Problem resolved confirmed [id number]- Problem Nosebleed (210819583) Nosebleed (784.7) 0 2008 Problem resolved confirmed [id number]- Problem Allergic rhinitis caused by pollen (53505226) Allergies (477.0) 2014 Problem resolved confirmed [id number]- Problem Bruising (245889865) Bruising (782.7) 2008 Problem resolved confirmed [id number]- Problem Chest pain (29508761) Chest pain (786.50) 2007 Problem resolved confirmed [id number]- Problem Acute exacerbation o f chronic obstructive airways disease (893055129) Chronic bronchitis, obstructive, with (acute) exacerbation (491.21) 2016 Problem resolved confirmed [id number]- Problem Disorder of hematopoietic system (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) Other abnormal findings on blood examination (790.99) 2015 Problem resolved confirmed [id number]- Problem Disorder of hematopoietic system (53895494) Other abnormal laboratory result on blood (790.99) 2007 Problem resolved confirmed [id number]- Problem Pleural pain (0505862) Pleural pain (786.52) 2011 Problem resolved confirmed [id number]- Problem Sore throat (055981354) Sore Throat (462) 2007 Problem resolved confirmed [id number]- Problem Tobacco abuse (2865596527) Tobacco abuse (305.1) 2003 Problem resolved confirmed [id number]- Problem Acute exacerbation o f chronic obstructive airways disease (487342786) Acute exacerbation of chronic obstructive pulmonary disease (COPD) (491.21) 2013 Problem resolved confirmed [id number]- Problem Poisoning caused by antidepressant (56329134) Antidepressant medication overdose (969.0) 2007 Problem resolved confirmed [id number]- Problem Tobacco user (895085029) Cigarette smoking (305.1) 2009 Problem resolved confirmed [id number]- Problem Depressive disorder (85151144) Depressive disorder not elsewhere classified (311) 2009 Problem resolved confirmed [id number]- Problem Gastroesophageal reflux disease (818811535) Gastroesophageal reflux disease (530.81) 2014 Problem resolved confirmed [id number]- Problem Generalized abdomina l pain (360725400) Generalized abdominal pain (789.07) 2013 Problem resolved confirmed [id number]- Problem Solitary nodule of lung (441635021) Lung nodule (518.89) 2013 Problem resolved confirmed [id number]- Problem Lymphadenopathy (27360156) Lymphadenopathy (785.6) 2015 Problem resolved confirmed Mane-[id number]- Problem Family history of malignant neoplasm of ovary (025105846) Family history of ovarian cancer (V16.41) 2007 Problem resolved confirmed [id number]- Problem Mixed hyperlipidemia (385816617) Hypercholesterolemia with hypertriglyceridemia (272.2) 2005 Problem resolved confirmed [id number]- Problem Hypertension (82417736) Hypertension (401.1) 2010 Active confirmed [id number]- Problem Insomnia (626402497) Insomnia (307.41) 2008 Problem resolved confirmed Mane-[id number]- Problem Pain in limb (29853936) Leg pain (729.5) 2006 Problem resolved confirmed [id number]- Problem Mitral valve regurgitation (91460260) Mitral valve regurgitation (424.0) 2004 Problem resolved confirmed [id number]- Problem Peripheral neuropath y (688787440) Peripheral neuropathy (356.9) 2015 Active confirmed [id number]- Problem Precordial pain (97131648) Precordial chest pain (786.51) 2004 Problem resolved confirmed Mane-[id number]- Problem Sinus tachycardia (66788136) Sinus tachycardia (427.89) 2008 Problem resolved confirmed Mane-[id number] [id number]- Problem Sleep apnea (05702827) ABIGAIL (780.57) 2013 Problem resolved confirmed Mane-[id number] [id number]- Problem Serous otitis media (23364470) Serous otitis media (381.4) 2006 Problem resolved confirmed Mane-[id number] [id number]- Problem Tobacco user (077495676) Tobacco abuse affecting health (305.1) 2012 Problem resolved confirmed Mane-98 5911- Problem Needs influenza immunization (561562710) Vaccination against other viral diseases, Influenza (V04.81) 2009 Problem resolved confirmed Mane-98 5911- Problem Candidiasis (93982872) Yeast infection (112.9) 2015 Problem resolved confirmed Mane-98 5911- Problem Anxiety depression (841522063) Anxiety with depression (300.4) 2007 Problem resolved confirmed Mane-98 5911- Problem Common migraine (22087378) Common migraine (346.10) 2009 Problem resolved confirmed Mane-[id number] [id number]- Problem Obstructive sleep apnea (26964668) Obstructive sleep apnea (780.57) 2009 Problem resolved confirmed Mane-98 5911- Problem Nondependent alcohol abuse, episodic (464537603) Alcohol abuse, episodic (305.02) 2010 Problem resolved confirmed Mane-98 [id number]- Problem Chronic obstructive pulmonary disease (47036205) Chronic obstructive pulmonary disease (496) 2008 Problem resolved confirmed Mane-98 5911- Problem Migraine with aura (4587372) Classic migraine (346.00) 2007 Problem resolved confirmed Mane-98 5911- Problem Constipation (08192785) Constipation (564.01) 2009 Problem resolved confirmed Mane-98 5911- Problem Depression (423627076) Depression (296.20) 2003 Problem resolved confirmed Mane-98 5911- Problem Exposure to coug h and potentially infected aerosol from TB patient (V15.85) 2009 Problem resolved confirmed Mane-98 5911- Problem Knee pain (0214249422) Knee pain (719.46) 2015 Problem resolved confirmed Mane-98 5911- Problem Urinary tract infection (56723914) Urinary tract infection (595.0) 2008 Problem resolved confirmed Mane-98 5911- Problem Elbow pain (90149527) Elbow pain (719.42) 2012 Problem resolved confirmed Mane-98 5911- Problem Heel pain (9101020) Heel pain (729.5) 2007 Problem resolved confirmed Mane-98 5911- Problem Pneumococcal pneumonia (216436844) Acute lobar pneumonia (481) 2008 Problem resolved confirmed Mane-98 5911- Problem Chronic insomnia (875208552) Chronic insomnia (307.42) 2012 Problem resolved confirmed Mane-98 5911- Problem COPD - Chronic obstructive pulmonary disease (25980956) COPD (496) 2012 Problem resolved confirmed Mane-98 5911- Problem Tinea pedis (2087767) Tinea pedis (110.4) 2013 Problem resolved confirmed Mane-98 5911- Problem Acute upper respiratory infection (23552997) Upper respiratory illness (465.8) 2009 Problem resolved confirmed Mane-98 5911- Problem Vaginal discharge (755577525) Vaginal discharge (616.10) 2009 Problem resolved confirmed Mane-98 5911- Problem Epigastric pain (11243588) Epigastric abdominal pain (789.06) 2004 Problem resolved confirmed Mane-98 5911- Problem Insect bite (352910154) Insect bite (919.4) 2011 Problem resolved confirmed Mane-98 5911- Problem Shoulder joint pain (614323730) Joint pain, shoulder region (719.41) 2004 Problem resolved confirmed Mane-98 5911- Problem Mild major depression, single episode (35595030) Major depression, single episode, mild (296.21) 2011 Problem resolved confirmed Mane-98 5911- Problem Coronary arteriosclerosis (disorder) (35646272) Coronary artery disease, of [place] coronary artery (414.01) 2004 Problem resolved confirmed Mane-98 [id number]- Problem Type II diabetes mellitus without complication (921218904) NIDDM (250.00) 2005 Problem resolved confirmed Mane-98 5911- Problem Pedal edema (102847475) Pedal edema (782.3) 2015 Problem resolved confirmed Mane-98 5911- Problem Possible STD exposure (V15.85) 2010 Problem resolved confirmed Mane-98 5911- Problem Diabetes mellitus type 2 (disorder) (49329532) Type 2 diabetes (250.00) 2005 Problem resolved confirmed Mane-98 5911- Problem Screening for malignant neoplasm of breast (975054013) Screening for breast cancer, unspecified (V76.10) 2015 Problem resolved confirmed [id number]- Plan Of Treatment No Information Medical (General) History Surgical History Surgery Date(Month/Year) AppendectomyCholecystectomy: 1979; Tubal Ligation: 1986;
--- OUTSIDE RECORDS SUMMARY | 2025-05-21 19:44 | XMS_ITS | Encounter Summary ---
Author Organization [facility] Address [address] [place] [address] Care Team Providers Care Car Inspector Name Role Phone Radha Cowan MD Primary Care Provider Encounter Details Date Type Department Care Team (Latest Contact Info) Description 06/21/2018 Ancillary Orders [facility] Admitting [address] [place] [address] Raad Bhatt, CAN CUTTER [address] [place] [id number] Osteoarthritis of both knees, unspecified osteoarthritis type Social History Tobacco Use Types Packs/Day Years Used Date Smoking Tobacco: Every Day Cigarettes 1 20 Smokeless Tobacco: Never Alcohol Use Standard Drinks/Week Comments Yes 0 (1 standard drink = 0.6 oz pur e alcohol) occasional Comments No Sex and Gender Information Value Date Recorded Sex Assigned at Not on file Legal Sex Female 3:33 AM MICROBIOLOGY INSTRUCTOR Gender Identity Not on file Sexual Orientation [...] medial tibial femoral compartments bilaterally. Raad Bhatt [employer] DI[employer]NO[employer] IMAGING ORDERABL ES Final Result documented in this encounter Visit Diagnoses Diagnosis Osteoarthritis of both knees, unspecified osteoarthritis type Osteoarthritis of both knees, unspecified osteoarthritis type documented in this encounter Additional Health Concerns Infection Onset Date Last Indicated Resolved Time R/O COVID-19 05/16/2020 05/16/2020 05/18/2020 12:3 1 AM CDT R/O COVID-19 07/25/2020 07/25/2020 07/27/2020 5:01 AM MICROBIOLOGY INSTRUCTOR R/O COVID-19 09/30/2020 09/30/2020 09/30/2020 7:23 PM MICROBIOLOGY INSTRUCTOR documented as of this encounter Care Teams Car Inspector Relationship Specialty Start Date End Date Radha Cowan MD [address] [address] PCP - General Family Practice 10/24/20 documented as of this encounter
--- OUTSIDE RECORDS SUMMARY | 2025-05-21 19:44 | XMS_ITS | Clinical Summary ---
Author Organization [facility] Address [address] [place] [address] Care Team Providers Care Event Planning Intern Name Role Phone Unavailable Primary Care Provider [...] 90 Tablet 0 10/28/19 21 Active Insulin Mona, Disposable, 31 gauge x 5/16 Needle 100 Each by [facility] [place]Non-Drug; Combo Route) route. 04/09/20 20 Active nebulizer [...] complication, without long-term current use of insulin ([facility]) Take 1 Tablet (20 mg) by mouth daily. 90 Tablet 1 08/22/20 20 Active buPROPion HCL (WELLBUTRIN SR) 150 mg Sustained Release 12 hour tabletIndication s:Type 2 diabetes mellitus with hyperglycemia, without long-term current use of insulin ([facility]),Chroni c obstructive pulmonary disease, unspecified COPD type ([facility]),Benign hypertension Take 1 Tablet (150 mg) [...] deliveryIndicati ons:Respiratory failure with hypoxia, unspecified chronicity ([facility]) Home Oxygen Concentrator yes at 3 L/M Rest, 5 L/M Activity, 3 L/M Sleep, Delivery Device: Nasal CannulaPortability: yes, 3 L/M Rest, 5 L/M Activity, [...] mg by mouth daily at bedtime. 11/12/19 Active arformoteroL (BROVANA) 15 mcg/2 mL Solution [...] mg by mouth daily. 01/25/20 24 Active Active Problems Problem Noted Date [...] Encounters Date Type Department Care Team Description 05/08/2025 External Device Data STL ABSTRACTION Provider, Abstract 05/08/2025 External Device Data STL ABSTRACTION Provider, Abstract 04/24/2025 External Device Data STL ABSTRACTION Provider, Abstract 04/17/2025 External Device Data STL ABSTRACTION Provider, [...] care, and heating? Not hard at all 05/06/2021 Food Insecurity Answer Date Recorded In the past 12 months, have you worried that your food would run out before you had money to buy more? Never true 05/06/2021 In the past 12 months, did y ou run out of food and didn't have money to buy more? Never true 05/06/2021 Transportation Needs Answer Date Record ed In the past 12 months, has l ack of transportation kept you from medical appointments or from getting medications? No 05/06/2021 Lack of Transportation (Non-Medical) Not on file 05/06/2021 Feeling Safe Answer Date Recorded Are you in a relationship wi th someone who hurts you emotionally and/or physically? No 12/20/2024 Comments No Sex and Gender Information Value Date Recorded Sex Assigned at Not on file Legal Sex Female 1:48 PM PROJECT EXECUTIVE Gender Identity Not on file Sexual Orientation [...] 05/06/2022 , 01/08/2021, 06/27/2020, Additional history exists DIABETES HBA1C Q 6 MONTHS 09/23/20242023, 05/06/2021, 01/08/2021, Additional history exists INFLUENZA VACCINE (#1) 2025 3, 06/08/2023, 06/06/2023, Additional history exists COVID-19 Vaccine (5 - 2024-2 6 season) 2025 08/13/2022, 08/19/2021, 12/05/2020, Additional history exists COLORECTAL SCREENING 01/11/2029 01/11/2019, 01/12/20 Colorectal Cancer Screening 01/11/2029 DTAP/TDAP/TD VACCINES (3 - T d or Tdap) 05/08/2031 05/08/2021, 08/25/2012 ZOSTER VACCINE Completed 08/10/2022, 09/2019, 07/26/2018, Additional history exists PNEUMOCOCCAL VACCINE 50+ YEARS Completed 0 04/12/2023, 09/06/2019, 05/31/2018, Additional history exists Medical Devices Implanted Type Area Steam Tank Operator Device Identifier Shelf Expiration Date Model / Serial / Lot Stent Istent Trbclr Micro-Bypss Lt [id number] - [id number] Implanted:Qty: 1 on 09/20/2024 by Low Marx MD at [facility] Eye Left: Eye [employer] 03/05/2026 [id number] / [id number] / Stent Istent Trbclr Micro-Bypss Rt [id number] - [id number] Implanted:Qty: 1 on 12/20/2024 by Low Marx MD at [facility] Eye Right: Eye [employer] 04/05/2027 [id number] / [id number] / [id number] Lens Iol Tecnis Eyhance 19.5 [id number] - [id number] Implanted:Qty: 1 on 09/20/2024 by Low Marx MD at [facility] Lens Left: Eye [employer] 02/06/2027 [id number] / [id number] / Lens Iol Tecnis Eyhance 19.0 [id number] - [id number] Implanted:Qty: 1 on 12/20/2024 by Low Marx MD at [facility] Lens Right: Eye [employer] 04/25/2026 [id number] / [id number] / Procedures Procedure Name Priority Date/Time Associated Diagnosis Comments LIPID PANEL Routine 05/06/2021 9:36 AM CDT Type 2 diabetes mellitus without complication, without long-term current use of insulin ([facility]) HEMOGLOBIN A1C Routine 05/06/2021 9:36 AM CDT Type 2 diabetes mellitus without complication, without long-term current use of insulin ([facility]) MAMMO SCREEN BILAT W OR WO CAD Routine 10/30/2020 1:26 PM PROJECT EXECUTIVE Screening mammogram, encounter for MICROALBUMIN/CREATIN INE RATIO, RANDOM UR Routine 12/19/2019 9:05 AM CDT ENDOSCOPY, COLON, SCREENING Routine 01/11/2019 from Last 3 Months or Most Recently Relevant to Health Maintenance Results * (ABNORMAL) HEMOGLOBIN A1C (05/06/2021 9:36 AM CDT) HEMOGLOBIN A1C 7.6(H) <5.7 % of total Hgb [facility] Comment: For someone without known diabetes, a [...] of diabetes for children. Test Performed at: [facility] [address] [place] [address] Jean Carlos Yi D.O., MPH Blood 05/06/2021 9:36 AM CDT 05/07/2021 4:34 AM CDT us Juancarlos DELGADO CHEMISTRY ORDERABLES Final Re sult [facility] [address] [place] [address] * (ABNORMAL) LIPID PANEL (05/06/2021 9:36 AM CDT) CHOLESTEROL 193 <200 mg/dL [facility] HDL 44(L) > OR = 50 mg/dL [facility] TRIGLYCERIDE 369(H) <150 mg/dL [facility] Comment: If a non-fasting specimen was collected, consider repeat triglyceride testing on a fasting specimen if clinically indicated. Radhika et al. J. of Clin. Lipidol. 2015;9:129-169. LDL CALCULATED 100(H) mg/dL (calc) [facility] Comment: Reference range: <100 Desirable range <100 mg/dL for primary prevention; <70 mg/dL for patients with CHD or diabetic patients with > or = 2 CHD risk factors. LDL-C is now calculated using the Miky-Patricia calculation, which is a validated novel method providing better accuracy than the Friedewald equation in the estimation of LDL-C. Miky NERI et al. SABRINA. 2013;310(19): 3113-1444 (http://education.EasyLink/faq/GPP408) CHOL/HDL RATIO 4.4 <5.0 (calc) [facility] TOTAL NON-HDL CHOL(LDL+VLDL) 149(H) <130 mg/dL (calc) [facility] Comment: For patients with diabetes plus 1 major ASCVD risk factor, treating to a non-HDL-C goal of <100 mg/dL (LDL-C of <70 mg/dL) is considered a therapeutic option. Test Performed at: [facility] [address] [place] [address] Jean Carlos Yi D.O., MPH Blood 05/06/2021 9:36 AM CDT 05/07/2021 4:34 AM CDT us Juancarlos DELGADO CHEMISTRY ORDERABLES Final Re sult [facility] [address] [place] [address] * MAMMO SCREEN BILAT W OR WO CAD (10/30/2020 1:26 PM PROJECT EXECUTIVE) Anatomical Region Laterality Modality Breast Bilateral Other Impressions 11/03/2020 11:28 AM PROJECT EXECUTIVE : Focal asymmetry in the upper outer quadrant of the left breast for which additional imaging evaluation is recommended. BI-RADS ASSESSMENT: 0 - Incomplete Recommendation: Additional Imaging [id number] Narrative 11/03/2020 11:28 AM PROJECT EXECUTIVE EXAM: MAMMO SCREEN BILAT W OR WO [...] ASSESSMENT: 0 - Incomplete Recommendation: Additional Imaging [id number] Juancarlos DELGADO MAMMO ORDERABLES Final Result * MICROALBUMIN/CREATININE RATIO, RANDOM UR (12/19/2019 9:05 AM CDT) MICROALBUMIN, URINE 1.2 No Reference Range mg/dL 12/19/2019 8:46 PM CDT [facility] CREATININE, URINE 66.3 29.0 - 226.0 mg/dL 12/19/2019 8:46 PM CDT [facility] Comment:Reference Range vari es with fluid intake and diet. MICROALBUMIN/C REAT RATIO, UR 18.1 <25.0 mg/g 12/19/2019 8:46 PM CDT [facility] Urine URINE SPECIMEN OBTAINED BY CLEAN CATCH PROCEDURE / Unknown Collection / Unknown 12/19/2019 9:05 AM CDT 12/19/2019 7:43 PM CDT Narrative [facility]OMAR GARCIA - 12/19/2019 8:46 PM CDT Condition Microalbumin/Creat ratio Normal Males <17 Normal Females <25 Microalbuminuria Males 17-299 Microalbuminuria Females 25-299 Overt proteinuria >=300 [place] NP URINE ORDERABLES Final Result [facility] IA# [id number] [address] [place] [address] * (ABNORMAL) ENDOSCOPY, COLON, SCREENING (01/11/2019) us Abstract Provider GI PROCEDURE ORDERABLES Final Result from Last 3 Months or Most Recently Relevant to Health Maintenance Insurance MEDICAID [place] HMO Advance Directives For more information, please contact: [phone] * Full Code (Latest Code Status on File) Date Activated Date Inactivated Comments 12/20/2024 9:49 AM 12/20/2024 1:54 PM * Full Code Date Activated Date Inactivated Comments 09/20/2024 11:42 AM 09/20/2024 3:30 PM
--- OUTSIDE RECORDS SUMMARY | 2025-05-21 19:44 | XMS_ITS | Encounter Summary ---
Author Organization [facility] Address [address] [place] [address] Care Team Providers Care Coal Chemist Name Role Phone Radha Cowan MD Primary Care Provider Encounter Details Date Type Department Care Team (Latest Contact Info) Description 03/15/2000 Outpatient Historical [facility] Corey Burkett, Augusto Tang MD [address] [place] [phone] Unspecified urinary incontinence (Primary Dx); Screening for malignant neoplasm of the cervix; Unspecified hemorrhoids without mention of complication; Screening for malignant neoplasm of the rectum Social History Tobacco Use Types Packs/Day Years Used Date Smoking Tobacco: Never Assessed Comments Unknown Sex and Gender Information Value Date Recorded Sex Assigned at Not on file Legal Sex Female 3:33 AM FREIGHT RATE ANALYST Gender Identity Not on file Sexual [...] R/O COVID-19 07/25/2020 07/25/2020 07/27/2020 5:01 AM FREIGHT RATE ANALYST R/O COVID-19 09/30/2020 09/30/2020 09/30/2020 7:23 PM FREIGHT RATE ANALYST documented as of this encounter Care Teams Coal Chemist Relationship Specialty Start Date End Date Radha Cowan MD [address] [address] PCP - General Family Practice 10/24/20 documented as of this encounter
--- OUTSIDE RECORDS SUMMARY | 2025-05-21 19:44 | XMS_ITS | Encounter Summary ---
Author Organization [facility] Address [address] [place] [address] Care Team Providers Care Bank Vault Attendant Name Role Phone Radha Cowan MD Primary Care Provider [phone] Encounter Details Date Type Department Care Team (Latest Contact Info) Description 06/13/1999 Outpatient Historical [facility] Betito Fields NO ADDRESS ON FILE Chest pain, unspecified (Primary Dx) Social History Tobacco Use Types Packs/Day Years Used Date Smoking Tobacco: Never Assessed Comments Unknown Sex and Gender Information Value Date Recorded Sex Assigned at Not on file Legal Sex Female 3:33 AM RADIOLOGY EQUIPMENT SERVICER Gender Identity Not on file Sexual Orientation Not on file documented as of this encounter Plan of Treatment Not on file documented as of this encounter Visit Diagnoses Diagnosis Chest pain, unspecified- Primary documented in this encounter Additional Health Concerns Infection Onset Date Last Indicated Resolved Time R/O COVID-19 05/16/2020 05/16/2020 05/18/2020 12:3 1 AM CDT R/O COVID-19 07/25/2020 07/25/2020 07/27/2020 5:01 AM RADIOLOGY EQUIPMENT SERVICER R/O COVID-19 09/30/2020 09/30/2020 09/30/2020 7:23 PM RADIOLOGY EQUIPMENT SERVICER documented as of this encounter Care Teams Bank Vault Attendant Relationship Specialty Start Date End Date Radha Cowan MD [address] [place] [address] PCP - General Family Practice 10/24/20 documented as of this encounter
--- OUTSIDE RECORDS SUMMARY | 2025-05-21 19:44 | XMS_ITS | Encounter Summary ---
Author Organization [facility] Address [address] [place] [address] Care Team Providers Care Calciner Operator Helper Name Role Phone Radha Cowan MD Primary Care Provider Encounter Details Date Type Department Care Team (Latest Contact Info) Description 01/06/1999 Outpatient Historical [facility] Augusto Nicole Jr., MD [address] [place] [phone] Insomnia, unspecified (Primary Dx); Depressive disorder, not elsewhere classified Social History Tobacco Use Types Packs/Day Years Used Date Smoking Tobacco: Never Assessed Comments Unknown Sex and Gender Information Value Date Recorded Sex Assigned at Not on file Legal Sex Female 3:33 AM AIR TRAFFIC CONTROL SPECIALIST CENTER Gender Identity Not on file Sexual Orientation [...] R/O COVID-19 07/25/2020 07/25/2020 07/27/2020 5:01 AM AIR TRAFFIC CONTROL SPECIALIST CENTER R/O COVID-19 09/30/2020 09/30/2020 09/30/2020 7:23 PM AIR TRAFFIC CONTROL SPECIALIST CENTER documented as of this encounter Care Teams Calciner Operator Helper Relationship Specialty Start Date End Date Radha Cowan MD [address] [address] PCP - General Family Practice 10/24/20 documented as of this encounter
--- OUTSIDE RECORDS SUMMARY | 2025-05-21 19:44 | XMS_ITS | Encounter Summary ---
Author Organization [facility] Address [address] [place] [address] Care Team Providers Care Head Baker Name Role Phone Radha Cowan MD Primary Care Provider Encounter Details Date Type Department Care Team (Latest Contact Info) Description 10/15/2017 Ancillary Orders [facility] Admitting [address] [place] [address] Raad Bhatt, REFINERY OPERATOR [employer] [address] [place] [address] Osteoarthritis of both knees, unspecified [...] on file Legal Sex Female 3:33 AM INTERIOR DESIGN PROGRAM CHAIR Gender Identity Not on file Sexual Orientation Not on file Occupation Industry Job Start Date Job End Date Not on file Not on file Not on file Not on file documented as of this encounter Plan of Treatment Not on file documented as of this encounter Results * XR KNEE 3 VW BILAT (10/15/2017 11:56 AM INTERIOR DESIGN PROGRAM CHAIR) Anatomical Region Laterality Modality Lower Extremity Computed Radiogr aphy 10/15/2017 11:5 6 AM INTERIOR DESIGN PROGRAM CHAIR Impressions 10/15/2017 9:02 PM INTERIOR DESIGN PROGRAM CHAIR IMPRESSION: Mild degenerative changes. [id number] Narrative 10/15/2017 9:02 PM INTERIOR DESIGN PROGRAM CHAIR Exam: XR KNEE 3 VW BILAT Date/Time [...] tissues appear appropriate. IMPRESSION: Mild degenerative changes. [id number] Raad Bhatt REFINERY OPERATOR [employer] DIAGNOSTIC IMAGING ORDERABL ES Final Result documented in this encounter Visit Diagnoses Diagnosis Osteoarthritis of both knees, unspecified osteoarthritis type Osteoarthritis of both knees, unspecified osteoarthritis type documented in this encounter Additional Health Concerns Infection Onset Date Last Indicated Resolved Time R/O COVID-19 05/16/2020 05/16/2020 05/18/2020 12:3 1 AM CDT R/O COVID-19 07/25/2020 07/25/2020 07/27/2020 5:01 AM INTERIOR DESIGN PROGRAM CHAIR R/O COVID-19 09/30/2020 09/30/2020 09/30/2020 7:23 PM INTERIOR DESIGN PROGRAM CHAIR documented as of this encounter Care Teams Head Baker Relationship Specialty Start Date End Date Radha Cowan MD [address] [address] PCP - General Family Practice 10/24/20 documented as of this encounter
--- OUTSIDE RECORDS SUMMARY | 2025-05-21 19:44 | XMS_ITS | Encounter Summary ---
Author Organization [facility] Address [address] [place] [address] Care Team Providers Care Vp Packaging Name Role Phone Radha Cowan MD Primary Care Provider Encounter Details Date Type Department Care Team (Latest Contact Info) Description 05/29/1999 Outpatient Historical [facility] Augusto Nicole Jr., MD [address] [place] [phone] Other seborrheic keratosis (Primary Dx) Social History Tobacco Use Types Packs/Day Years Used Date Smoking Tobacco: Never Assessed Comments Unknown Sex and Gender Information Value Date Recorded Sex Assigned at Not on file Legal Sex Female 3:33 AM BORING MACHINE OPERATOR VERTICAL Gender Identity Not on file Sexual Orientation Not on file documented as of this encounter Plan of Treatment Not on file documented as of this encounter Visit Diagnoses Diagnosis Other seborrheic keratosis- Primary documented in this encounter Additional Health Concerns Infection Onset Date Last Indicated Resolved Time R/O COVID-19 05/16/2020 05/16/2020 05/18/2020 12:3 1 AM CDT R/O COVID-19 07/25/2020 07/25/2020 07/27/2020 5:01 AM BORING MACHINE OPERATOR VERTICAL R/O COVID-19 09/30/2020 09/30/2020 09/30/2020 7:23 PM BORING MACHINE OPERATOR VERTICAL documented as of this encounter Care Teams Vp Packaging Relationship Specialty Start Date End Date Radha Cowan MD [address] [facility] [address] [place] [address] PCP - General Family Practice 10/24/20 documented as of this encounter
--- OUTSIDE RECORDS SUMMARY | 2025-05-21 19:44 | XMS_ITS | Encounter Summary ---
Author Organization [facility] Address [address] [place] [address] Care Team Providers Care Base Engineer Name Role Phone Radha Cowan MD Primary Care Provider [phone] Encounter Details Date Type Department Care Team (Latest Contact Info) Description 06/23/1999 Outpatient Historical [facility] Betito Fields NO ADDRESS ON FILE [...] file Legal Sex Female 3:33 AM DRILLING INSPECTOR Gender Identity Not on file Sexual Orientation [...] R/O COVID-19 07/25/2020 07/25/2020 07/27/2020 5:01 AM DRILLING INSPECTOR R/O COVID-19 09/30/2020 09/30/2020 09/30/2020 7:23 PM DRILLING INSPECTOR documented as of this encounter Care Teams Base Engineer Relationship Specialty Start Date End Date Radha Cowan MD [address] [address] PCP - General Family Practice 10/24/20 documented as of this encounter
--- OUTSIDE RECORDS SUMMARY | 2025-05-21 19:45 | XMS_ITS | Encounter Summary ---
Author Organization [facility] Address [address] Charlesn: [place] [address] Care Team Providers Care Children'S Ministry Director Name Role Phone Radha Cowan MD Primary Care Provider [phone] Encounter Details Date Type Department Care Team (Late st Contact Info) Description 05/10/2002 Outpatient Historical Augusto Nicole Jr., MD [address] [place] [phone] Social History Tobacco Use Types Packs/Day Years Used Date Smoking Tobacco: Never Assessed Comments Unknown Sex and Gender Information Value Date Recorded Sex Assigned at Not on file Legal Sex Female 3:33 AM PIPE JOINTS SUPERVISOR Gender Identity Not on file Sexual Orientation Not on file documented as of this encounter Plan of Treatment Not on file documented as of this encounter Visit Diagnoses Not on filedocumented in this encounter Additional Health Concerns Infection Onset Date Last Indicated Resolved Time R/O COVID-19 05/16/2020 05/16/2020 05/18/2020 12:3 1 AM CDT R/O COVID-19 07/25/2020 07/25/2020 07/27/2020 5:01 AM PIPE JOINTS SUPERVISOR R/O COVID-19 09/30/2020 09/30/2020 09/30/2020 7:23 PM PIPE JOINTS SUPERVISOR documented as of this encounter Care Teams Children'S Ministry Director Relationship Specialty Start Date End Date Radha Cowan MD [address] [place] [address] PCP - General Family Practice 10/24/20 documented as of this encounter
--- OUTSIDE RECORDS SUMMARY | 2025-05-21 19:45 | XMS_ITS | Encounter Summary ---
Author Organization [facility] Address [address] Charlesn: [place] [address] Care Team Providers Care Gear Hobber Operator Name Role Phone Radha Cowan MD Primary Care Provider [phone] Encounter Details Date Type Department Care Team (Late st Contact Info) Description 06/10/2001 Outpatient Historical Augusto Nicole Jr., MD [address] [place] [phone] Social History Tobacco Use Types Packs/Day Years Used Date Smoking Tobacco: Never Assessed Comments Unknown Sex and Gender Information Value Date Recorded Sex Assigned at Not on file Legal Sex Female 3:33 AM MESMERIST Gender Identity Not on file Sexual Orientation Not on file documented as of this encounter Plan of Treatment Not on file documented as of this encounter Visit Diagnoses Not on filedocumented in this encounter Additional Health Concerns Infection Onset Date Last Indicated Resolved Time R/O COVID-19 05/16/2020 05/16/2020 05/18/2020 12:3 1 AM CDT R/O COVID-19 07/25/2020 07/25/2020 07/27/2020 5:01 AM MESMERIST R/O COVID-19 09/30/2020 09/30/2020 09/30/2020 7:23 PM MESMERIST documented as of this encounter Care Teams Gear Hobber Operator Relationship Specialty Start Date End Date Radha Cowan MD [address] [place] [address] PCP - General Family Practice 10/24/20 documented as of this encounter
--- OUTSIDE RECORDS SUMMARY | 2025-05-21 19:45 | XMS_ITS | Encounter Summary ---
Author Organization [facility] Address [address] Charlesn: [place] [address] Care Team Providers Care Renewable Energy Consultant Name Role Phone Radha Cowan MD Primary Care Provider [phone] Encounter Details Date Type Department Care Team (Late st Contact Info) Description 05/19/2002 Outpatient Historical Augusto Nicole Jr., MD [address] [place] [phone] Social History Tobacco Use Types Packs/Day Years Used Date Smoking Tobacco: Never Assessed Comments Unknown Sex and Gender Information Value Date Recorded Sex Assigned at Not on file Legal Sex Female 3:33 AM CUSTOM BOW MAKER Gender Identity Not on file Sexual Orientation Not on file documented as of this encounter Plan of Treatment Not on file documented as of this encounter Visit Diagnoses Not on filedocumented in this encounter Additional Health Concerns Infection Onset Date Last Indicated Resolved Time R/O COVID-19 05/16/2020 05/16/2020 05/18/2020 12:3 1 AM CDT R/O COVID-19 07/25/2020 07/25/2020 07/27/2020 5:01 AM CUSTOM BOW MAKER R/O COVID-19 09/30/2020 09/30/2020 09/30/2020 7:23 PM CUSTOM BOW MAKER documented as of this encounter Care Teams Renewable Energy Consultant Relationship Specialty Start Date End Date Radha Cowan MD [address] [place] [address] PCP - General Family Practice 10/24/20 documented as of this encounter
--- OUTSIDE RECORDS SUMMARY | 2025-05-21 19:45 | XMS_ITS | Encounter Summary ---
Author Organization [facility] Address [address] [place] [address] Care Team Providers Care Precinct Commanding Officer Name Role Phone Radha Cowan MD Primary Care Provider Encounter Details Date Type Department Care Team (Latest Contact Info) Description 06/26/1999 Outpatient Historical [facility] Corey Burkett, Augusto Tang MD [facility] [place] [address] Esophageal reflux (Primary Dx); Headache(784.0); Insomnia with sleep apnea, unspecified; Need for prophylactic vaccination against Streptococcus pneumoniae (pneumococcus) Social History Tobacco Use Types Packs/Day Years Used Date Smoking Tobacco: Never Assessed Comments Unknown Sex and Gender Information Value Date Recorded Sex Assigned at Not on file Legal Sex Female 3:33 AM PEDIATRIC CLINICAL DIETICIAN Gender Identity Not on file Sexual Orientation [...] R/O COVID-19 07/25/2020 07/25/2020 07/27/2020 5:01 AM PEDIATRIC CLINICAL DIETICIAN R/O COVID-19 09/30/2020 09/30/2020 09/30/2020 7:23 PM PEDIATRIC CLINICAL DIETICIAN documented as of this encounter Care Teams Precinct Commanding Officer Relationship Specialty Start Date End Date Radha Cowan MD [address] [address] PCP - General Family Practice 10/24/20 documented as of this encounter
--- OUTSIDE RECORDS SUMMARY | 2025-05-21 19:45 | XMS_ITS | Encounter Summary ---
Author Organization [facility] Address [address] Charlesn: [place] [address] Care Team Providers Care Student Affairs Dean Name Role Phone Radha Cowan MD Primary Care Provider +1- [phone] Encounter Details Date Type Department Care Team (Late st Contact Info) Description 01/12/2001 Outpatient Historical Augusto Nicole Jr., MD [address] [place] [phone] Social History Tobacco Use Types Packs/Day Years Used Date Smoking Tobacco: Never Assessed Comments Unknown Sex and Gender Information Value Date Recorded Sex Assigned at Not on file Legal Sex Female 3:33 AM WIRE COATING OPERATOR METAL Gender Identity Not on file Sexual Orientation Not on file documented as of this encounter Plan of Treatment Not on file documented as of this encounter Visit Diagnoses Not on filedocumented in this encounter Additional Health Concerns Infection Onset Date Last Indicated Resolved Time R/O COVID-19 05/16/2020 05/16/2020 05/18/2020 12:3 1 AM CDT R/O COVID-19 07/25/2020 07/25/2020 07/27/2020 5:01 AM WIRE COATING OPERATOR METAL R/O COVID-19 09/30/2020 09/30/2020 09/30/2020 7:23 PM WIRE COATING OPERATOR METAL documented as of this encounter Care Teams Student Affairs Dean Relationship Specialty Start Date End Date Radha Cowan MD [address] [facility] [address] [place] [address] PCP - General Family Practice 10/24/20 documented as of this encounter
--- OUTSIDE RECORDS SUMMARY | 2025-05-21 19:45 | XMS_ITS | Encounter Summary ---
Author Organization [facility] Address [address] [place] [address] Care Team Providers Care Insurance Sales Representative Name Role Phone Radha Cowan MD Primary Care Provider Encounter Details Date Type Department Care Team (Latest Contact Info) Description 06/10/2001 Outpatient Historical [facility] Augusto Nicole Jr., MD [address] [place] [phone] Chronic airway obstruction, not elsewhere classified (CMS/HCC) (Primary Dx); Pure hypercholesterolem Social History Tobacco Use Types Packs/Day Years Used Date Smoking Tobacco: Never Assessed Comments Unknown Sex and Gender Information Value Date Recorded Sex Assigned at Not on file Legal Sex Female 3:33 AM BRANCH RETAIL EXECUTIVE Gender Identity Not on file Sexual [...] R/O COVID-19 07/25/2020 07/25/2020 07/27/2020 5:01 AM BRANCH RETAIL EXECUTIVE R/O COVID-19 09/30/2020 09/30/2020 09/30/2020 7:23 PM BRANCH RETAIL EXECUTIVE documented as of this encounter Care Teams Insurance Sales Representative Relationship Specialty Start Date End Date Radha Cowan MD [address] [address] PCP - General Family Practice 10/24/20 documented as of this encounter
--- OUTSIDE RECORDS SUMMARY | 2025-05-21 19:45 | XMS_ITS | Encounter Summary ---
Author Organization [facility] Address [address] [place] [address] Care Team Providers Care Dye Line Operator Name Role Phone Radha Cowan MD Primary Care Provider Encounter Details Date Type Department Care Team (Latest Contact Info) Description 09/01/2001 Outpatient Historical [facility] Augusto Nicole Jr., MD [address] [place] [phone] ABSENCE OF MENSTRUATION (Primary Dx); HYPERLIPIDEMIA NEC/NOS; ALLERGIC RHINITIS NOS Social History Tobacco Use Types Packs/Day Years Used Date Smoking Tobacco: Never Assessed Comments Unknown Sex and Gender Information Value Date Recorded Sex Assigned at Not on file Legal Sex Female 3:33 AM PROFESSOR OF ENVIRONMENTAL STUDIES Gender Identity Not on file Sexual Orientation [...] 07/25/2020 07/25/2020 07/27/2020 5:01 AM PROFESSOR OF ENVIRONMENTAL STUDIES R/O COVID-19 09/30/2020 09/30/2020 09/30/2020 7:23 PM PROFESSOR OF ENVIRONMENTAL STUDIES documented as of this encounter Care Teams Dye Line Operator Relationship Specialty Start Date End Date Radha Cowan MD [address] [phone] PCP - General Family Practice 10/24/20 documented as of this encounter
--- OUTSIDE RECORDS SUMMARY | 2025-05-21 19:45 | XMS_ITS | Clinical Summary ---
Author Organization [facility] Address [address] [place] [address] Care Team Providers Care Fountain Dispenser Name Role Phone Radha Xiong MD Primary Care Provider +1 -[phone] Allergies Active Allergy Reactions Criticality Noted Date [...] 1 tablet (25 mcg total) by mouth wiring mechanic before breakfast 01/05/20 24 Active losartan (COZAAR) [...] vaccine 65+ Completed 023, 05/31/2018, 09/05/2012 Insurance [place] [employer] PPO Advance Directives For more information, please contact: [phone] * Full Code (Latest Code Status on File) Date Activated Date Inactivated Comments 03/22/2024 10:33 PM 03/29/2024 5:09 PM Care Teams Fountain Dispenser Relationship Specialty Start Date End Date Radha Xiong MD [address] [place] [address] PCP - General Family Medicine 03/22/24
--- OUTSIDE RECORDS SUMMARY | 2025-05-21 19:45 | XMS_ITS | Encounter Summary ---
Author Organization [facility] Address [address] [place] [address] Care Team Providers Care Demo Event Specialist Name Role Phone Radha Cowan MD Primary Care Provider Encounter Details Date Type Department Care Team (Latest Contact Info) Description 12/23/1998 Outpatient Historical [facility] Augusto Nicole Jr., MD [address] [place] [phone] Dysthymic disorder (Primary Dx); Abdominal pain, unspecified site Social History Tobacco Use Types Packs/Day Years Used Date Smoking Tobacco: Never Assessed Comments Unknown Sex and Gender Information Value Date Recorded Sex Assigned at Not on file Legal Sex Female 3:33 AM BODY SHOP MANAGER Gender Identity Not on file Sexual [...] R/O COVID-19 07/25/2020 07/25/2020 07/27/2020 5:01 AM BODY SHOP MANAGER R/O COVID-19 09/30/2020 09/30/2020 09/30/2020 7:23 PM BODY SHOP MANAGER documented as of this encounter Care Teams Demo Event Specialist Relationship Specialty Start Date End Date Radha Cowan MD [address] [phone] PCP - General Family Practice 10/24/20 documented as of this encounter
--- OUTSIDE RECORDS SUMMARY | 2025-05-21 19:45 | XMS_ITS | Encounter Summary ---
Author Organization [facility] Address [address] Charlesn: [place] [address] Care Team Providers Care Cash On Delivery Clerk Name Role Phone Radha Cowan MD Primary Care Provider +1- [phone] Encounter Details Date Type Department Care Team (Late st Contact Info) Description 12/16/2000 Outpatient Historical Augusto Nicole Jr., MD [address] [place] [phone] Social History Tobacco Use Types Packs/Day Years Used Date Smoking Tobacco: Never Assessed Comments Unknown Sex and Gender Information Value Date Recorded Sex Assigned at Not on file Legal Sex Female 3:33 AM AR MANAGER Gender Identity Not on file Sexual Orientation Not on file documented as of this encounter Plan of Treatment Not on file documented as of this encounter Visit Diagnoses Not on filedocumented in this encounter Additional Health Concerns Infection Onset Date Last Indicated Resolved Time R/O COVID-19 05/16/2020 05/16/2020 05/18/2020 12:3 1 AM CDT R/O COVID-19 07/25/2020 07/25/2020 07/27/2020 5:01 AM AR MANAGER R/O COVID-19 09/30/2020 09/30/2020 09/30/2020 7:23 PM AR MANAGER documented as of this encounter Care Teams Cash On Delivery Clerk Relationship Specialty Start Date End Date Radha Cowan MD [address] [place] [phone] PCP - General Family Practice 10/24/20 documented as of this encounter
--- OUTSIDE RECORDS SUMMARY | 2025-05-21 19:45 | XMS_ITS | Encounter Summary ---
Author Organization [facility] Address [address] [place] [address] Care Team Providers Care Mine Supervisor Name Role Phone Radha Cowan MD Primary Care Provider Encounter Details Date Type Department Care Team (Latest Contact Info) Description 03/23/2002 Outpatient Historical [facility] Augusto Nicole Jr., MD [address] [place] [phone] ABDOMINAL PAIN UNSPEC SITE (Primary Dx); IRON DEFIC ANEMIA NOS; GENERALIZED ANXIETY DIS Social History Tobacco Use Types Packs/Day Years Used Date Smoking Tobacco: Never Assessed Comments Unknown Sex and Gender Information Value Date Recorded Sex Assigned at Not on file Legal Sex Female 3:33 AM FISH TRAPPER Gender Identity Not on file Sexual Orientation [...] R/O COVID-19 07/25/2020 07/25/2020 07/27/2020 5:01 AM FISH TRAPPER R/O COVID-19 09/30/2020 09/30/2020 09/30/2020 7:23 PM FISH TRAPPER documented as of this encounter Care Teams Mine Supervisor Relationship Specialty Start Date End Date Radha Cowan MD [address] [phone] PCP - General Family Practice 10/24/20 documented as of this encounter
--- OUTSIDE RECORDS SUMMARY | 2025-05-21 19:45 | XMS_ITS | Encounter Summary ---
Author Organization [facility] Address [address] [place] [address] Care Team Providers Care Travel Ot Name Role Phone Radha Cowan MD Primary Care Provider Encounter Details Date Type Department Care Team (Latest Contact Info) Description 04/27/2001 Outpatient Historical [facility] Augusto Nicole Jr., MD [address] [place] [phone] Chest pain, unspecified (Primary Dx); Generalized anxiety disorder Social History Tobacco Use Types Packs/Day Years Used Date Smoking Tobacco: Never Assessed Comments Unknown Sex and Gender Information Value Date Recorded Sex Assigned at Not on file Legal Sex Female 3:33 AM HEALTHCARE ANALYST Gender Identity Not on file Sexual [...] R/O COVID-19 07/25/2020 07/25/2020 07/27/2020 5:01 AM HEALTHCARE ANALYST R/O COVID-19 09/30/2020 09/30/2020 09/30/2020 7:23 PM HEALTHCARE ANALYST documented as of this encounter Care Teams Travel Ot Relationship Specialty Start Date End Date Radha Cowan MD [address] [facility] [address] [place] [address] PCP - General Family Practice 10/24/20 documented as of this encounter
--- OUTSIDE RECORDS SUMMARY | 2025-05-21 19:45 | XMS_ITS | Encounter Summary ---
Author Organization [facility] Address [address] [place] [address] Care Team Providers Care Logistics Engineering Manager Name Role Phone Radha Cowan MD Primary Care Provider Encounter Details Date Type Department Care Team (Latest Contact Info) Description 01/19/2001 Outpatient Historical [facility] Augusto Nicole Jr., MD [address] [place] [phone] Chest pain, unspecified (Primary Dx); Generalized anxiety disorder Social History Tobacco Use Types Packs/Day Years Used Date Smoking Tobacco: Never Assessed Comments Unknown Sex and Gender Information Value Date Recorded Sex Assigned at Not on file Legal Sex Female 3:33 AM BEVERAGE HOST Gender Identity Not on file Sexual Orientation [...] R/O COVID-19 07/25/2020 07/25/2020 07/27/2020 5:01 AM BEVERAGE HOST R/O COVID-19 09/30/2020 09/30/2020 09/30/2020 7:23 PM BEVERAGE HOST documented as of this encounter Care Teams Logistics Engineering Manager Relationship Specialty Start Date End Date Radha Cowan MD [address] [facility] [address] [place] [address] PCP - General Family Practice 10/24/20 documented as of this encounter
--- OUTSIDE RECORDS SUMMARY | 2025-05-21 19:45 | XMS_ITS | Encounter Summary ---
Author Organization [facility] Address [address] [place] [address] Care Team Providers Care Folder Operator Name Role Phone Radha Cowan MD Primary Care Provider +1- [phone] Encounter Details Date Type Department Care Team (Latest Contact Info) Description 02/16/2002 Outpatient Historical [facility] Augusto Nicole Jr., MD [address] [place] [phone] ANEMIA NOS (Primary Dx) Social History Tobacco Use Types Packs/Day Years Used Date Smoking Tobacco: Never Assessed Comments Unknown Sex and Gender Information Value Date Recorded Sex Assigned at Not on file Legal Sex Female 3:33 AM RELAY SHOP TESTER Gender Identity Not on file Sexual Orientation Not on file documented as of this encounter Plan of Treatment Not on file documented as of this encounter Visit Diagnoses Diagnosis Anemia, unspecified- Primary documented in this encounter Additional Health Concerns Infection Onset Date Last Indicated Resolved Time R/O COVID-19 05/16/2020 05/16/2020 05/18/2020 12:3 1 AM CDT R/O COVID-19 07/25/2020 07/25/2020 07/27/2020 5:01 AM RELAY SHOP TESTER R/O COVID-19 09/30/2020 09/30/2020 09/30/2020 7:23 PM RELAY SHOP TESTER documented as of this encounter Care Teams Folder Operator Relationship Specialty Start Date End Date Radha Cowan MD [address] [place] [phone] PCP - General Family Practice 10/24/20 documented as of this encounter
--- OUTSIDE RECORDS SUMMARY | 2025-05-21 19:45 | XMS_ITS | Encounter Summary ---
Author Organization [facility] Address [address] [place] [address] Care Team Providers Care Printing Equipment Mechanic Apprentice Name Role Phone Radha Cowan MD Primary Care Provider Encounter Details Date Type Department Care Team (Latest Contact Info) Description 03/15/2002 Outpatient Historical [facility] Corey Burkett, Augusto Tang MD [address] [place] [phone] DIABETES UNCOMPL ADULT-TYPE II (CMS/HCC) (Primary Dx); ABNORMAL URINE FINDINGS NEC; HEMATURIA; AFTERCARE CUSTODIAL USE MEDICATN Social History Tobacco Use Types Packs/Day Years Used Date Smoking Tobacco: Never Assessed Comments Unknown Sex and Gender Information Value Date Recorded Sex Assigned at Not on file Legal Sex Female 3:33 AM TUTORING ASSISTANT Gender Identity Not on file Sexual [...] R/O COVID-19 07/25/2020 07/25/2020 07/27/2020 5:01 AM TUTORING ASSISTANT R/O COVID-19 09/30/2020 09/30/2020 09/30/2020 7:23 PM TUTORING ASSISTANT documented as of this encounter Care Teams Printing Equipment Mechanic Apprentice Relationship Specialty Start Date End Date Radha Cowan MD [address] [phone] PCP - General Family Practice 10/24/20 documented as of this encounter
--- OUTSIDE RECORDS SUMMARY | 2025-05-21 19:45 | XMS_ITS | Encounter Summary ---
Author Organization [facility] Address [address] [place] [address] Care Team Providers Care Hospitalist Program Director Name Role Phone Radha Cowan MD Primary Care Provider Encounter Details Date Type Department Care Team (Latest Contact Info) Description 12/16/2000 Outpatient Historical [facility] Augusto Nciole Jr., MD [address] [place] [phone] Headache(784.0) (Primary Dx); Mitral valve disorder Social History Tobacco Use Types Packs/Day Years Used Date Smoking Tobacco: Never Assessed Comments Unknown Sex and Gender Information Value Date Recorded Sex Assigned at Not on file Legal Sex Female 3:33 AM STORE WAREHOUSE ASSOCIATE Gender Identity Not on file Sexual Orientation [...] R/O COVID-19 07/25/2020 07/25/2020 07/27/2020 5:01 AM STORE WAREHOUSE ASSOCIATE R/O COVID-19 09/30/2020 09/30/2020 09/30/2020 7:23 PM STORE WAREHOUSE ASSOCIATE documented as of this encounter Care Teams Hospitalist Program Director Relationship Specialty Start Date End Date Radha Cowan MD [address] [phone] PCP - General Family Practice 10/24/20 documented as of this encounter
--- OUTSIDE RECORDS SUMMARY | 2025-05-21 19:45 | XMS_ITS | Encounter Summary ---
Author Organization [facility] Address [address] [place] [address] Care Team Providers Care Ornamental Iron Erector Name Role Phone Radha Cowan MD Primary Care Provider Encounter Details Date Type Department Care Team (Latest Contact Info) Description 08/28/1998 Outpatient Historical [facility] Augusto Nicole Jr., MD [address] [place] [phone] Attention to dressings and sutures (Primary Dx); Dermatophytosis of foot Social History Tobacco Use Types Packs/Day Years Used Date Smoking Tobacco: Never Assessed Comments Unknown Sex and Gender Information Value Date Recorded Sex Assigned at Not on file Legal Sex Female 3:33 AM TEAM COORDINATOR Gender Identity Not on file Sexual [...] R/O COVID-19 07/25/2020 07/25/2020 07/27/2020 5:01 AM TEAM COORDINATOR R/O COVID-19 09/30/2020 09/30/2020 09/30/2020 7:23 PM TEAM COORDINATOR documented as of this encounter Care Teams Ornamental Iron Erector Relationship Specialty Start Date End Date Radha Cowan MD [address] [phone] PCP - General Family Practice 10/24/20 documented as of this encounter
--- OUTSIDE RECORDS SUMMARY | 2025-05-21 19:45 | XMS_ITS | Encounter Summary ---
Author Organization [facility] Address [address] [place]: [place] [address] Care Team Providers Care Field Spec Name Role Phone Radha Cowan MD Primary Care Provider [phone]- [phone] Encounter Details Date Type Department Care Team (Late st Contact Info) Description 12/20/2000 Outpatient Historical Augusto Nicole Jr., MD [address] [place] [phone] Social History Tobacco Use Types Packs/Day Years Used Date Smoking Tobacco: Never Assessed Comments Unknown Sex and Gender Information Value Date Recorded Sex Assigned at Not on file Legal Sex Female 3:33 AM WELDER Gender Identity Not on file Sexual Orientation Not on file documented as of this encounter Plan of Treatment Not on file documented as of this encounter Visit Diagnoses Not on filedocumented in this encounter Additional Health Concerns Infection Onset Date Last Indicated Resolved Time R/O COVID-19 05/16/2020 05/16/2020 05/18/2020 12:3 1 AM CDT R/O COVID-19 07/25/2020 07/25/2020 07/27/2020 5:01 AM WELDER R/O COVID-19 09/30/2020 09/30/2020 09/30/2020 7:23 PM WELDER documented as of this encounter Care Teams Field Spec Relationship Specialty Start Date End Date Radha Cowan MD [address] [place] [phone] PCP - General Family Practice 10/24/20 documented as of this encounter
--- OUTSIDE RECORDS SUMMARY | 2025-05-21 19:45 | XMS_ITS | Encounter Summary ---
Author Organization [facility] Address [address] [place] [address] Care Team Providers Care Lithographic Stripper Name Role Phone Radha Cowan MD Primary Care Provider [phone] Encounter Details Date Type Department Care Team (Latest Contact Info) Description 12/30/2000 Outpatient Historical [facility] Augusto Nicole Jr., MD [address] [place] [phone] Elevated sediment rate (Primary Dx); Osteoarthrosis, unspecified whether generalized or localized, unspecified site Social History Tobacco Use Types Packs/Day Years Used Date Smoking Tobacco: Never Assessed Comments Unknown Sex and Gender Information Value Date Recorded Sex Assigned at Not on file Legal Sex Female 3:33 AM POWER LINEMAN TECHNICIAN Gender Identity Not on file Sexual [...] R/O COVID-19 07/25/2020 07/25/2020 07/27/2020 5:01 AM POWER LINEMAN TECHNICIAN R/O COVID-19 09/30/2020 09/30/2020 09/30/2020 7:23 PM POWER LINEMAN TECHNICIAN documented as of this encounter Care Teams Lithographic Stripper Relationship Specialty Start Date End Date Radha Cowan MD [address] [phone] PCP - General Family Practice 10/24/20 documented as of this encounter
--- OUTSIDE RECORDS SUMMARY | 2025-05-21 19:45 | XMS_ITS | Encounter Summary ---
Author Organization [facility] Address [address] [place] [address] Care Team Providers Care Manager Long Term Care Name Role Phone Radha Cowan MD Primary Care Provider Encounter Details Date Type Department Care Team (Latest Contact Info) Description 07/10/1998 Outpatient Historical [facility] Augusto Nicole Jr., MD [facility] [place] [address] Headache(784.0) (Primary Dx); Depressive disorder, not elsewhere classified Social History Tobacco Use Types Packs/Day Years Used Date Smoking Tobacco: Never Assessed Comments Unknown Sex and Gender Information Value Date Recorded Sex Assigned at Not on file Legal Sex Female 3:33 AM CASE FOLDER Gender Identity Not on file Sexual Orientation [...] R/O COVID-19 07/25/2020 07/25/2020 07/27/2020 5:01 AM CASE FOLDER R/O COVID-19 09/30/2020 09/30/2020 09/30/2020 7:23 PM CASE FOLDER documented as of this encounter Care Teams Manager Long Term Care Relationship Specialty Start Date End Date Radha Cowan MD [address] [phone] PCP - General Family Practice 10/24/20 documented as of this encounter
--- OUTSIDE RECORDS SUMMARY | 2025-05-21 19:45 | XMS_ITS | Encounter Summary ---
Author Organization [facility] Address [address] [place]: [place] [address] Care Team Providers Care Head Of Sales Name Role Phone Radha Cowan MD Primary Care Provider [phone]- [phone] Encounter Details Date Type Department Care Team (Late st Contact Info) Description 12/19/2001 Outpatient Historical Augusto Nicole Jr., MD [address] [place] [phone] Social History Tobacco Use Types Packs/Day Years Used Date Smoking Tobacco: Never Assessed Comments Unknown Sex and Gender Information Value Date Recorded Sex Assigned at Not on file Legal Sex Female 3:33 AM BUSINESS SPECIALIST Gender Identity Not on file Sexual Orientation Not on file documented as of this encounter Plan of Treatment Not on file documented as of this encounter Visit Diagnoses Not on filedocumented in this encounter Additional Health Concerns Infection Onset Date Last Indicated Resolved Time R/O COVID-19 05/16/2020 05/16/2020 05/18/2020 12:3 1 AM CDT R/O COVID-19 07/25/2020 07/25/2020 07/27/2020 5:01 AM BUSINESS SPECIALIST R/O COVID-19 09/30/2020 09/30/2020 09/30/2020 7:23 PM BUSINESS SPECIALIST documented as of this encounter Care Teams Head Of Sales Relationship Specialty Start Date End Date Radha Cowan MD [address] [place] [phone] PCP - General Family Practice 10/24/20 documented as of this encounter
--- OUTSIDE RECORDS SUMMARY | 2025-05-21 19:45 | XMS_ITS | Encounter Summary ---
Author Organization [facility] Address [address] [place] [address] Care Team Providers Care Line Installer Name Role Phone Radha Cowan MD Primary Care Provider +1- [phone] Encounter Details Date Type Department Care Team (Latest Contact Info) Description 12/20/2000 Outpatient Historical [facility] Augusto Nicole Jr., MD [address] [place] [phone] Pure hypercholesterolem (Primary Dx) Social History Tobacco Use Types Packs/Day Years Used Date Smoking Tobacco: Never Assessed Comments Unknown Sex and Gender Information Value Date Recorded Sex Assigned at Not on file Legal Sex Female 3:33 AM WOOD WINDOW AND DOOR CRAFTSMAN Gender Identity Not on file Sexual Orientation [...] R/O COVID-19 07/25/2020 07/25/2020 07/27/2020 5:01 AM WOOD WINDOW AND DOOR CRAFTSMAN R/O COVID-19 09/30/2020 09/30/2020 09/30/2020 7:23 PM WOOD WINDOW AND DOOR CRAFTSMAN documented as of this encounter Care Teams Line Installer Relationship Specialty Start Date End Date Radha Cowan MD [address] [place] [address] PCP - General Family Practice 10/24/20 documented as of this encounter
--- OUTSIDE RECORDS SUMMARY | 2025-05-21 19:45 | XMS_ITS | Encounter Summary ---
Author Organization [facility] Address [address] [place] [address] Care Team Providers Care Japanese Interpreter Name Role Phone Radha Cowan MD Primary Care Provider +1- [phone] Encounter Details Date Type Department Care Team (Latest Contact Info) Description 05/10/2002 Outpatient Historical [facility] Corey Burkett, Augusto Tang MD [address] [place] [phone] ANEMIA NOS (Primary Dx); EDEMA; DIABETES UNCOMPL ADULT-TYPE II (CMS/HCC); CHRONIC AIRWAY OBSTRUCTION NEC ([facility]) Social History Tobacco Use Types Packs/Day Years Used Date Smoking Tobacco: Never Assessed Comments Unknown Sex and Gender Information Value Date Recorded Sex Assigned at Not on file Legal Sex Female 3:33 AM ACCOUNT COLLECTOR Gender Identity Not on file Sexual Orientation [...] R/O COVID-19 07/25/2020 07/25/2020 07/27/2020 5:01 AM ACCOUNT COLLECTOR R/O COVID-19 09/30/2020 09/30/2020 09/30/2020 7:23 PM ACCOUNT COLLECTOR documented as of this encounter Care Teams Japanese Interpreter Relationship Specialty Start Date End Date Radha Cowan MD [address] [address] PCP - General Family Practice 10/24/20 documented as of this encounter
--- OUTSIDE RECORDS SUMMARY | 2025-05-21 19:45 | XMS_ITS | Encounter Summary ---
Author Organization [facility] Address [address] [place] [address] Care Team Providers Care Bonded Structures Repairer Name Role Phone Radha Cowan MD Primary Care Provider Encounter Details Date Type Department Care Team (Latest Contact Info) Description 03/22/2000 Outpatient Historical [facility] Augusto Nicole Jr., MD [address] [place] [phone] Other follow-up examination(V67.59) (Primary Dx); Unspecified hemorrhoids without mention of complication Social History Tobacco Use Types Packs/Day Years Used Date Smoking Tobacco: Never Assessed Comments Unknown Sex and Gender Information Value Date Recorded Sex Assigned at Not on file Legal Sex Female 3:33 AM SAND SCREENER OPERATOR Gender Identity Not on file Sexual [...] R/O COVID-19 07/25/2020 07/25/2020 07/27/2020 5:01 AM SAND SCREENER OPERATOR R/O COVID-19 09/30/2020 09/30/2020 09/30/2020 7:23 PM SAND SCREENER OPERATOR documented as of this encounter Care Teams Bonded Structures Repairer Relationship Specialty Start Date End Date Radha Cowan MD [address] [address] PCP - General Family Practice 10/24/20 documented as of this encounter
--- OUTSIDE RECORDS SUMMARY | 2025-05-21 19:45 | XMS_ITS | Encounter Summary ---
Author Organization [facility] Address [address] [place] [address] Care Team Providers Care Wealth Management Director Name Role Phone Radha Cowan MD Primary Care Provider Encounter Details Date Type Department Care Team (Latest Contact Info) Description 04/10/2002 Outpatient Historical [facility] ToroHema MD [address] [address] ESOPHAGEAL REFLUX (Primary Dx); ABDOMINAL PAIN EPIGASTRIC Social History Tobacco Use Types Packs/Day Years Used Date Smoking Tobacco: Never Assessed Comments Unknown Sex and Gender Information Value Date Recorded Sex Assigned at Not on file Legal Sex Female 3:33 AM DIRECTOR IMAGING Gender Identity Not on file Sexual Orientation [...] R/O COVID-19 07/25/2020 07/25/2020 07/27/2020 5:01 AM DIRECTOR IMAGING R/O COVID-19 09/30/2020 09/30/2020 09/30/2020 7:23 PM DIRECTOR IMAGING documented as of this encounter Care Teams Wealth Management Director Relationship Specialty Start Date End Date Radha Cowan MD [address] [address] PCP - General Family Practice 10/24/20 documented as of this encounter
--- OUTSIDE RECORDS SUMMARY | 2025-05-21 19:45 | XMS_ITS | Encounter Summary ---
Author Organization [facility] Address [address] Charlesn: [place] [address] Care Team Providers Care Watch Repair Person Name Role Phone Radha Cowan MD Primary Care Provider +1- [phone] Encounter Details Date Type Department Care Team (Late st Contact Info) Description 12/05/2001 Outpatient Historical Augusto Nicole Jr., MD [address] [place] [phone] Social History Tobacco Use Types Packs/Day Years Used Date Smoking Tobacco: Never Assessed Comments Unknown Sex and Gender Information Value Date Recorded Sex Assigned at Not on file Legal Sex Female 3:33 AM SPEECH AND HEARING DIRECTOR Gender Identity Not on file Sexual Orientation Not on file documented as of this encounter Plan of Treatment Not on file documented as of this encounter Visit Diagnoses Not on filedocumented in this encounter Additional Health Concerns Infection Onset Date Last Indicated Resolved Time R/O COVID-19 05/16/2020 05/16/2020 05/18/2020 12:3 1 AM CDT R/O COVID-19 07/25/2020 07/25/2020 07/27/2020 5:01 AM SPEECH AND HEARING DIRECTOR R/O COVID-19 09/30/2020 09/30/2020 09/30/2020 7:23 PM SPEECH AND HEARING DIRECTOR documented as of this encounter Care Teams Watch Repair Person Relationship Specialty Start Date End Date Radha Cowan MD [address] [place] [phone] PCP - General Family Practice 10/24/20 documented as of this encounter
--- OUTSIDE RECORDS SUMMARY | 2025-05-21 19:45 | XMS_ITS | Encounter Summary ---
Author Organization [facility] Address [address] [place] [address] Care Team Providers Care Lobster Man Name Role Phone Radha Cowan MD Primary Care Provider Encounter Details Date Type Department Care Team (Latest Contact Info) Description 11/19/1999 Outpatient Historical [facility] Augusto Nicole Jr., MD [address] [place] [phone] Other convulsions (Primary Dx); Leiomyoma of uterus, unspecified; Screening for malignant neoplasm of the cervix Social History Tobacco Use Types Packs/Day Years Used Date Smoking Tobacco: Never Assessed Comments Unknown Sex and Gender Information Value Date Recorded Sex Assigned at Not on file Legal Sex Female 3:33 AM EXCHANGE UNDERWRITING CONSULTANT Gender Identity Not on file Sexual Orientation [...] R/O COVID-19 07/25/2020 07/25/2020 07/27/2020 5:01 AM EXCHANGE UNDERWRITING CONSULTANT R/O COVID-19 09/30/2020 09/30/2020 09/30/2020 7:23 PM EXCHANGE UNDERWRITING CONSULTANT documented as of this encounter Care Teams Lobster Man Relationship Specialty Start Date End Date Radha Cowan MD [address] [phone] PCP - General Family Practice 10/24/20 documented as of this encounter
--- OUTSIDE RECORDS SUMMARY | 2025-05-21 19:45 | XMS_ITS | Encounter Summary ---
Author Organization [facility] Address [address] [place] [address] Care Team Providers Care City Controller Name Role Phone Radha Cowan MD Primary Care Provider [phone]- [phone] Encounter Details Date Type Department Care Team (Latest Contact Info) Description 03/24/2001 Outpatient Historical [facility] Corey Burkett, Augusto Tang MD [facility] [place] [address] Hip, thigh, leg, and ankle, [...] on file Legal Sex Female 3:33 AM DULITE MACHINE BLUER Gender Identity Not on file Sexual Orientation [...] R/O COVID-19 07/25/2020 07/25/2020 07/27/2020 5:01 AM DULITE MACHINE BLUER R/O COVID-19 09/30/2020 09/30/2020 09/30/2020 7:23 PM DULITE MACHINE BLUER documented as of this encounter Care Teams City Controller Relationship Specialty Start Date End Date Radha Cowan MD [address] [phone] PCP - General Family Practice 10/24/20 documented as of this encounter
--- OUTSIDE RECORDS SUMMARY | 2025-05-21 19:45 | XMS_ITS | Encounter Summary ---
Author Organization [facility] Address [address] [place] [address] Care Team Providers Care Photoengraver Name Role Phone Radha Cowan MD Primary Care Provider Encounter Details Date Type Department Care Team (Latest Contact Info) Description 11/28/1998 Outpatient Historical [facility] Augusto Nicole Jr., MD [address] [place] [phone] Unspecified essential hypertension (Primary Dx); Unspecified thrombosed hemorrhoids; Obesity, unspecified Social History Tobacco Use Types Packs/Day Years Used Date Smoking Tobacco: Never Assessed Comments Unknown Sex and Gender Information Value Date Recorded Sex Assigned at Not on file Legal Sex Female 3:33 AM SPINE NURSE Gender Identity Not on file Sexual [...] R/O COVID-19 07/25/2020 07/25/2020 07/27/2020 5:01 AM SPINE NURSE R/O COVID-19 09/30/2020 09/30/2020 09/30/2020 7:23 PM SPINE NURSE documented as of this encounter Care Teams Photoengraver Relationship Specialty Start Date End Date Radha Cowan MD [address] [phone] PCP - General Family Practice 10/24/20 documented as of this encounter
--- OUTSIDE RECORDS SUMMARY | 2025-05-21 19:45 | XMS_ITS | Encounter Summary ---
Author Organization [facility] Address [address] [place] [address] Care Team Providers Care Cipher Expert Name Role Phone Radha Cowan MD Primary Care Provider +1- [phone] Encounter Details Date Type Department Care Team (Latest Contact Info) Description 12/05/2001 Outpatient Historical [facility] Augusto Nicole Jr., MD [address] [place] [phone] HYPERLIPIDEMIA NEC/NOS (Primary Dx) Social History Tobacco Use Types Packs/Day Years Used Date Smoking Tobacco: Never Assessed Comments Unknown Sex and Gender Information Value Date Recorded Sex Assigned at Not on file Legal Sex Female 3:33 AM SHEAR ASSEMBLER Gender Identity Not on file Sexual Orientation [...] R/O COVID-19 07/25/2020 07/25/2020 07/27/2020 5:01 AM SHEAR ASSEMBLER R/O COVID-19 09/30/2020 09/30/2020 09/30/2020 7:23 PM SHEAR ASSEMBLER documented as of this encounter Care Teams Cipher Expert Relationship Specialty Start Date End Date Radha Cowan MD [address] [place] [address] PCP - General Family Practice 10/24/20 documented as of this encounter
--- OUTSIDE RECORDS SUMMARY | 2025-05-21 19:45 | XMS_ITS | Encounter Summary ---
Author Organization [facility] Address [address] Charlesn: [place] [address] Care Team Providers Care Retail Area Manager Name Role Phone Radha Cowan MD Primary Care Provider +1- [phone] Encounter Details Date Type Department Care Team (Late st Contact Info) Description 03/15/2002 Outpatient Historical Augusto Nicole Jr., MD [address] [place] [phone] Social History Tobacco Use Types Packs/Day Years Used Date Smoking Tobacco: Never Assessed Comments Unknown Sex and Gender Information Value Date Recorded Sex Assigned at Not on file Legal Sex Female 3:33 AM SUPPORT SERVICES REP Gender Identity Not on file Sexual Orientation Not on file documented as of this encounter Plan of Treatment Not on file documented as of this encounter Visit Diagnoses Not on filedocumented in this encounter Additional Health Concerns Infection Onset Date Last Indicated Resolved Time R/O COVID-19 05/16/2020 05/16/2020 05/18/2020 12:3 1 AM CDT R/O COVID-19 07/25/2020 07/25/2020 07/27/2020 5:01 AM SUPPORT SERVICES REP R/O COVID-19 09/30/2020 09/30/2020 09/30/2020 7:23 PM SUPPORT SERVICES REP documented as of this encounter Care Teams Retail Area Manager Relationship Specialty Start Date End Date Radha Cowan MD [address] [place] [phone] PCP - General Family Practice 10/24/20 documented as of this encounter
--- OUTSIDE RECORDS SUMMARY | 2025-05-21 19:45 | XMS_ITS | Encounter Summary ---
Author Organization [facility] Address [address] Charlesn: [place] [address] Care Team Providers Care Tour Counselor Name Role Phone Radha Cowan MD Primary Care Provider +1- [phone] Encounter Details Date Type Department Care Team (Late st Contact Info) Description 02/18/2001 Outpatient Historical Augusto Nicole Jr., MD [address] [place] [phone] Social History Tobacco Use Types Packs/Day Years Used Date Smoking Tobacco: Never Assessed Comments Unknown Sex and Gender Information Value Date Recorded Sex Assigned at Not on file Legal Sex Female 3:33 AM CHRISTMAS TREE FARMER Gender Identity Not on file Sexual Orientation Not on file documented as of this encounter Plan of Treatment Not on file documented as of this encounter Visit Diagnoses Not on filedocumented in this encounter Additional Health Concerns Infection Onset Date Last Indicated Resolved Time R/O COVID-19 05/16/2020 05/16/2020 05/18/2020 12:3 1 AM CDT R/O COVID-19 07/25/2020 07/25/2020 07/27/2020 5:01 AM CHRISTMAS TREE FARMER R/O COVID-19 09/30/2020 09/30/2020 09/30/2020 7:23 PM CHRISTMAS TREE FARMER documented as of this encounter Care Teams Tour Counselor Relationship Specialty Start Date End Date Radha Cowan MD [address] [place] [phone] PCP - General Family Practice 10/24/20 documented as of this encounter
--- OUTSIDE RECORDS SUMMARY | 2025-05-21 19:45 | XMS_ITS | Encounter Summary ---
Author Organization [facility] Address [address] [place] [address] Care Team Providers Care Floral Specialist Name Role Phone Radha Cowan MD Primary Care Provider [phone] Encounter Details Date Type Department Care Team (Latest Contact Info) Description 02/18/2001 Outpatient Historical [facility] Augusto Nicole Jr., MD [address] [place] [phone] Myalgia and myositis, unspecified (Primary Dx); Depressive disorder, not elsewhere classified Social History Tobacco Use Types Packs/Day Years Used Date Smoking Tobacco: Never Assessed Comments Unknown Sex and Gender Information Value Date Recorded Sex Assigned at Not on file Legal Sex Female 3:33 AM DEVULCANIZER HEAD Gender Identity Not on file Sexual Orientation [...] R/O COVID-19 07/25/2020 07/25/2020 07/27/2020 5:01 AM DEVULCANIZER HEAD R/O COVID-19 09/30/2020 09/30/2020 09/30/2020 7:23 PM DEVULCANIZER HEAD documented as of this encounter Care Teams Floral Specialist Relationship Specialty Start Date End Date Radha Cowan MD [address] [phone] PCP - General Family Practice 10/24/20 documented as of this encounter
--- OUTSIDE RECORDS SUMMARY | 2025-05-21 19:45 | XMS_ITS | Encounter Summary ---
Author Organization [facility] Address [address] [place] [address] Care Team Providers Care Chute Operator Name Role Phone Radha Cowan MD Primary Care Provider Encounter Details Date Type Department Care Team (Latest Contact Info) Description 04/24/2002 Outpatient Historical [facility] ToroHema MD [address] [address] SURGERY FOLLOWUP, UNSPEC (Primary Dx) Social History Tobacco Use Types Packs/Day Years Used Date Smoking Tobacco: Never Assessed Comments Unknown Sex and Gender Information Value Date Recorded Sex Assigned at Not on file Legal Sex Female 3:33 AM FACTORY ENGINEER Gender Identity Not on file Sexual [...] R/O COVID-19 07/25/2020 07/25/2020 07/27/2020 5:01 AM FACTORY ENGINEER R/O COVID-19 09/30/2020 09/30/2020 09/30/2020 7:23 PM FACTORY ENGINEER documented as of this encounter Care Teams Chute Operator Relationship Specialty Start Date End Date Radha Cowan MD [address] [address] PCP - General Family Practice 10/24/20 documented as of this encounter
--- OUTSIDE RECORDS SUMMARY | 2025-05-21 19:45 | XMS_ITS | Encounter Summary ---
Author Organization [facility] Address [address] [place] [address] Care Team Providers Care Food Preparation Worker Name Role Phone Radha Cowan MD Primary Care Provider +1- [phone] Encounter Details Date Type Department Care Team (Latest Contact Info) Description 12/28/2001 Outpatient Historical [facility] Augusto Nicole Jr., MD [address] [place] [phone] ABN BLOOD CHEMISTRY NEC (Primary Dx) Social History Tobacco Use Types Packs/Day Years Used Date Smoking Tobacco: Never Assessed Comments Unknown Sex and Gender Information Value Date Recorded Sex Assigned at Not on file Legal Sex Female 3:33 AM ENTRY LEVEL BUYER Gender Identity Not on file Sexual Orientation [...] R/O COVID-19 07/25/2020 07/25/2020 07/27/2020 5:01 AM ENTRY LEVEL BUYER R/O COVID-19 09/30/2020 09/30/2020 09/30/2020 7:23 PM ENTRY LEVEL BUYER documented as of this encounter Care Teams Food Preparation Worker Relationship Specialty Start Date End Date Radha Cowan MD [address] [place] [address] PCP - General Family Practice 10/24/20 documented as of this encounter
--- OUTSIDE RECORDS SUMMARY | 2025-05-21 19:45 | XMS_ITS | Encounter Summary ---
Author Organization [facility] Address [address] [place] [address] Care Team Providers Care Weave Room Supervisor Name Role Phone Radha Cowan MD Primary Care Provider Encounter Details Date Type Department Care Team (Latest Contact Info) Description 10/13/2001 Outpatient Historical [facility] Augusto Nicole Jr., MD [address] [place] [phone] HYPERLIPIDEMIA NEC/NOS (Primary Dx); OBESITY NOS; DEPRESSIVE DISORDER NEC Social History Tobacco Use Types Packs/Day Years Used Date Smoking Tobacco: Never Assessed Comments Unknown Sex and Gender Information Value Date Recorded Sex Assigned at Not on file Legal Sex Female 3:33 AM BATCHER OPERATOR Gender Identity Not on file Sexual [...] R/O COVID-19 07/25/2020 07/25/2020 07/27/2020 5:01 AM BATCHER OPERATOR R/O COVID-19 09/30/2020 09/30/2020 09/30/2020 7:23 PM BATCHER OPERATOR documented as of this encounter Care Teams Weave Room Supervisor Relationship Specialty Start Date End Date Radha Cowan MD [address] [phone] PCP - General Family Practice 10/24/20 documented as of this encounter
--- OUTSIDE RECORDS SUMMARY | 2025-05-21 19:45 | XMS_ITS | Encounter Summary ---
Author Organization [facility] Address [address] [place] [address] Care Team Providers Care Dyehouse Worker Name Role Phone Radha Cowan MD Primary Care Provider [phone] Encounter Details Date Type Department Care Team (Latest Contact Info) Description 01/16/2002 Outpatient Historical [facility] Augusto Nicole Jr., MD [address] [place] [phone] CHRONIC AIRWAY OBSTRUCTION NEC (CMS/[facility]) (Primary Dx); ANEMIA NOS; DEPRESSIVE DISORDER NEC Social History Tobacco Use Types Packs/Day Years Used Date Smoking Tobacco: Never Assessed Comments Unknown Sex and Gender Information Value Date Recorded Sex Assigned at Not on file Legal Sex Female 3:33 AM ADOLESCENT COUNSELOR Gender Identity Not on file Sexual Orientation [...] R/O COVID-19 07/25/2020 07/25/2020 07/27/2020 5:01 AM ADOLESCENT COUNSELOR R/O COVID-19 09/30/2020 09/30/2020 09/30/2020 7:23 PM ADOLESCENT COUNSELOR documented as of this encounter Care Teams Dyehouse Worker Relationship Specialty Start Date End Date Radha Cowan MD [address] [phone] PCP - General Family Practice 10/24/20 documented as of this encounter
--- OUTSIDE RECORDS SUMMARY | 2025-05-21 19:45 | XMS_ITS | Encounter Summary ---
Author Organization [facility] Address [address] [place] [address] Care Team Providers Care Rn Perinatal Name Role Phone Radha Cowan MD Primary Care Provider Encounter Details Date Type Department Care Team (Latest Contact Info) Description 01/12/2001 Outpatient Historical [facility] Augusto Nicole Jr., MD [address] [place] [phone] Pure hypercholesterolem (Primary Dx); Chest pain, unspecified; Screening examination for pulmonary tuberculosis Social History Tobacco Use Types Packs/Day Years Used Date Smoking Tobacco: Never Assessed Comments Unknown Sex and Gender Information Value Date Recorded Sex Assigned at Not on file Legal Sex Female 3:33 AM GROUP SALES COORDINATOR Gender Identity Not on file Sexual [...] R/O COVID-19 07/25/2020 07/25/2020 07/27/2020 5:01 AM GROUP SALES COORDINATOR R/O COVID-19 09/30/2020 09/30/2020 09/30/2020 7:23 PM GROUP SALES COORDINATOR documented as of this encounter Care Teams Rn Perinatal Relationship Specialty Start Date End Date Radha Cowan MD [address] [phone] PCP - General Family Practice 10/24/20 documented as of this encounter
--- OUTSIDE RECORDS SUMMARY | 2025-05-21 19:45 | XMS_ITS | Encounter Summary ---
Author Organization [facility] Address [address] [place] [address] Care Team Providers Care Proposal Development Manager Name Role Phone Radha Cowan MD Primary Care Provider Encounter Details Date Type Department Care Team (Latest Contact Info) Description 12/06/1998 Outpatient Historical [facility] Augusto Nicole Jr., MD [address] [place] [phone] Dietary surveil/chemical dependency counselor (Primary Dx) Social History Tobacco Use Types Packs/Day Years Used Date Smoking Tobacco: Never Assessed Comments Unknown Sex and Gender Information Value Date Recorded Sex Assigned at Not on file Legal Sex Female 3:33 AM TOBACCO DRUMMER Gender Identity Not on file Sexual Orientation Not on file documented as of this encounter Plan of Treatment Not on file documented as of this encounter Visit Diagnoses Diagnosis Dietary surveil/chemical dependency counselor- Primary Dietary surveillance and counseling documented in this encounter Additional Health Concerns Infection Onset Date Last Indicated Resolved Time R/O COVID-19 05/16/2020 05/16/2020 05/18/2020 12:3 1 AM CDT R/O COVID-19 07/25/2020 07/25/2020 07/27/2020 5:01 AM TOBACCO DRUMMER R/O COVID-19 09/30/2020 09/30/2020 09/30/2020 7:23 PM TOBACCO DRUMMER documented as of this encounter Care Teams Proposal Development Manager Relationship Specialty Start Date End Date Radha Cowan MD [address] [facility] [address] [place] [address] PCP - General Family Practice 10/24/20 documented as of this encounter
--- OUTSIDE RECORDS SUMMARY | 2025-05-21 19:45 | XMS_ITS | Encounter Summary ---
Author Organization [facility] Address [address] Charlesn: [place] [address] Care Team Providers Care Pre Certification Specialist Name Role Phone Radha Cowan MD Primary Care Provider +1- [phone] Encounter Details Date Type Department Care Team (Late st Contact Info) Description 10/13/2001 Outpatient Historical Augusto Nicole Jr., MD [address] [place] [phone] Social History Tobacco Use Types Packs/Day Years Used Date Smoking Tobacco: Never Assessed Comments Unknown Sex and Gender Information Value Date Recorded Sex Assigned at Not on file Legal Sex Female 3:33 AM FIRST BEATER Gender Identity Not on file Sexual Orientation Not on file documented as of this encounter Plan of Treatment Not on file documented as of this encounter Visit Diagnoses Not on filedocumented in this encounter Additional Health Concerns Infection Onset Date Last Indicated Resolved Time R/O COVID-19 05/16/2020 05/16/2020 05/18/2020 12:3 1 AM CDT R/O COVID-19 07/25/2020 07/25/2020 07/27/2020 5:01 AM FIRST BEATER R/O COVID-19 09/30/2020 09/30/2020 09/30/2020 7:23 PM FIRST BEATER documented as of this encounter Care Teams Pre Certification Specialist Relationship Specialty Start Date End Date Radha Cowan MD [address] [place] [phone] PCP - General Family Practice 10/24/20 documented as of this encounter
--- OUTSIDE RECORDS SUMMARY | 2025-05-21 19:45 | XMS_ITS | Encounter Summary ---
Author Organization [facility] Address [address] Charlesn: [place] [address] Care Team Providers Care Nutrition And Dietetics Instructor Name Role Phone Radha Cowan MD Primary Care Provider +1- [phone] Encounter Details Date Type Department Care Team (Late st Contact Info) Description 03/17/2000 Outpatient Historical Augusto Nicole Jr., MD [address] [place] [phone] Social History Tobacco Use Types Packs/Day Years Used Date Smoking Tobacco: Never Assessed Comments Unknown Sex and Gender Information Value Date Recorded Sex Assigned at Not on file Legal Sex Female 3:33 AM DENTAL OFFICE ASSISTANT Gender Identity Not on file Sexual Orientation Not on file documented as of this encounter Plan of Treatment Not on file documented as of this encounter Visit Diagnoses Not on filedocumented in this encounter Additional Health Concerns Infection Onset Date Last Indicated Resolved Time R/O COVID-19 05/16/2020 05/16/2020 05/18/2020 12:3 1 AM CDT R/O COVID-19 07/25/2020 07/25/2020 07/27/2020 5:01 AM DENTAL OFFICE ASSISTANT R/O COVID-19 09/30/2020 09/30/2020 09/30/2020 7:23 PM DENTAL OFFICE ASSISTANT documented as of this encounter Care Teams Nutrition And Dietetics Instructor Relationship Specialty Start Date End Date Radha Cowan MD [address] [place] [phone] PCP - General Family Practice 10/24/20 documented as of this encounter
--- OUTSIDE RECORDS SUMMARY | 2025-05-21 19:46 | XMS_ITS | Encounter Summary ---
Author Organization [facility] Address [address] [place] [address] Care Team Providers Care Back Line Cook Name Role Phone Radha Cowan MD Primary Care Provider Encounter Details Date Type Department Care Team (Late st Contact Info) Description 02/19/2003 Outpatient Historical [facility] Augusto Nicole Jr., MD [address] [place] [phone] DIABETES UNCOMPL ADULT-TYPE II (CMS/HCC) (Primary Dx) Social History Tobacco Use Types Packs/Day Years Used Date Smoking Tobacco: Never Assessed Comments Unknown Sex and Gender Information Value Date Recorded Sex Assigned at Not on file Legal Sex Female 3:33 AM MASSAGE THERAPY INSTRUCTOR Gender Identity Not on file Sexual [...] R/O COVID-19 07/25/2020 07/25/2020 07/27/2020 5:01 AM MASSAGE THERAPY INSTRUCTOR R/O COVID-19 09/30/2020 09/30/2020 09/30/2020 7:23 PM MASSAGE THERAPY INSTRUCTOR documented as of this encounter Care Teams Back Line Cook Relationship Specialty Start Date End Date Radha Cowan MD [address] [phone] PCP - General Family Practice 10/24/20 documented as of this encounter
--- OUTSIDE RECORDS SUMMARY | 2025-05-21 19:46 | XMS_ITS | Encounter Summary ---
Author Organization [facility] Address [address] [place] [address] Care Team Providers Care Clinical Transformation Specialist Name Role Phone Radha Cowan MD Primary Care Provider Encounter Details Date Type Department Care Team (Latest Contact Info) Description 06/30/2002 Outpatient Historical [facility] Corey Burkett, Augusto Tang MD [address] [place] [address] DIABETES UNCOMPL ADULT-TYPE II (CMS/HCC) (Primary Dx); RENAL & URETERAL DIS NOS; HYPERTENSION NOS; HYPERLIPIDEMIA NEC/NOS Social History Tobacco Use Types Packs/Day Years Used Date Smoking Tobacco: Never Assessed Comments Unknown Sex and Gender Information Value Date Recorded Sex Assigned at Not on file Legal Sex Female 3:33 AM REGULATORY TECHNICIAN Gender Identity Not on file Sexual [...] R/O COVID-19 07/25/2020 07/25/2020 07/27/2020 5:01 AM REGULATORY TECHNICIAN R/O COVID-19 09/30/2020 09/30/2020 09/30/2020 7:23 PM REGULATORY TECHNICIAN documented as of this encounter Care Teams Clinical Transformation Specialist Relationship Specialty Start Date End Date Radha Cowan MD [address] [address] PCP - General Family Practice 10/24/20 documented as of this encounter
--- OUTSIDE RECORDS SUMMARY | 2025-05-21 19:46 | XMS_ITS | Encounter Summary ---
Author Organization [facility] Address [address] Charlesn: [place] [address] Care Team Providers Care Diorama Model Maker Name Role Phone Radha Cowan MD Primary Care Provider +1- [phone] Encounter Details Date Type Department Care Team (Late st Contact Info) Description 12/28/2001 Outpatient Historical Augusto Nicole Jr., MD [address] [place] [phone] Social History Tobacco Use Types Packs/Day Years Used Date Smoking Tobacco: Never Assessed Comments Unknown Sex and Gender Information Value Date Recorded Sex Assigned at Not on file Legal Sex Female 3:33 AM CAFETERIA TEAM LEADER Gender Identity Not on file Sexual Orientation Not on file documented as of this encounter Plan of Treatment Not on file documented as of this encounter Visit Diagnoses Not on filedocumented in this encounter Additional Health Concerns Infection Onset Date Last Indicated Resolved Time R/O COVID-19 05/16/2020 05/16/2020 05/18/2020 12:3 1 AM CDT R/O COVID-19 07/25/2020 07/25/2020 07/27/2020 5:01 AM CAFETERIA TEAM LEADER R/O COVID-19 09/30/2020 09/30/2020 09/30/2020 7:23 PM CAFETERIA TEAM LEADER documented as of this encounter Care Teams Diorama Model Maker Relationship Specialty Start Date End Date Radha Cowan MD [address] [place] [phone] PCP - General Family Practice 10/24/20 documented as of this encounter
--- OUTSIDE RECORDS SUMMARY | 2025-05-21 19:46 | XMS_ITS | Encounter Summary ---
Author Organization [facility] Address [address] Charlesn: [place] [address] Care Team Providers Care Nut Roaster Helper Name Role Phone Radha Cowan MD Primary Care Provider [phone]- [phone] Encounter Details Date Type Department Care Team (Late st Contact Info) Description 07/03/2002 Outpatient Historical Augusto Nicole Jr., MD [address] [place] [phone] Social History Tobacco Use Types Packs/Day Years Used Date Smoking Tobacco: Never Assessed Comments Unknown Sex and Gender Information Value Date Recorded Sex Assigned at Not on file Legal Sex Female 3:33 AM DJ INSTRUCTOR Gender Identity Not on file Sexual Orientation Not on file documented as of this encounter Plan of Treatment Not on file documented as of this encounter Visit Diagnoses Not on filedocumented in this encounter Additional Health Concerns Infection Onset Date Last Indicated Resolved Time R/O COVID-19 05/16/2020 05/16/2020 05/18/2020 12:3 1 AM CDT R/O COVID-19 07/25/2020 07/25/2020 07/27/2020 5:01 AM DJ INSTRUCTOR R/O COVID-19 09/30/2020 09/30/2020 09/30/2020 7:23 PM DJ INSTRUCTOR documented as of this encounter Care Teams Nut Roaster Helper Relationship Specialty Start Date End Date Radha Cowan MD [address] [place] [phone] PCP - General Family Practice 10/24/20 documented as of this encounter
--- OUTSIDE RECORDS SUMMARY | 2025-05-21 19:46 | XMS_ITS | Encounter Summary ---
Author Organization [facility] Address [address] [place] [address] Care Team Providers Care School Physical Therapist Name Role Phone Radha Cowan MD Primary Care Provider Encounter Details Date Type Department Care Team (Latest Contact Info) Description 07/20/2001 Outpatient Historical [facility] Fadi Hampton MD [address] [place] [address] CHRONIC RHINITIS (Primary Dx); TRACHEA/BRONCHUS DIS NEC; OBESITY NOS; TOBACCO USE DISORDER Social History Tobacco Use Types Packs/Day Years Used Date Smoking Tobacco: Never Assessed Comments Unknown Sex and Gender Information Value Date Recorded Sex Assigned at Not on file Legal Sex Female 3:33 AM AUTOMATED WEAVER Gender Identity Not on file Sexual Orientation [...] R/O COVID-19 07/25/2020 07/25/2020 07/27/2020 5:01 AM AUTOMATED WEAVER R/O COVID-19 09/30/2020 09/30/2020 09/30/2020 7:23 PM AUTOMATED WEAVER documented as of this encounter Care Teams School Physical Therapist Relationship Specialty Start Date End Date Radha Cowan MD [address] [phone] PCP - General Family Practice 10/24/20 documented as of this encounter
--- OUTSIDE RECORDS SUMMARY | 2025-05-21 19:46 | XMS_ITS | Encounter Summary ---
Author Organization [facility] Address [address] [place] [address] Care Team Providers Care Founder And Ceo Name Role Phone Radha Cowan MD Primary Care Provider [phone]- [phone] Encounter Details Date Type Department Care Team (Latest Contact Info) Description 04/19/2003 Outpatient Historical [facility] Corey Burkett, Augusto Tang MD [address] [place] [address] DIABETES UNCOMPL ADULT-TYPE II (CMS/HCC) (Primary Dx); OPEN WOUND KNEE/LEG/ANKLE; HYPERTENSION NOS; HYPERLIPIDEMIA NEC/NOS Social History Tobacco Use Types Packs/Day Years Used Date Smoking Tobacco: Never Assessed Comments Unknown Sex and Gender Information Value Date Recorded Sex Assigned at Not on file Legal Sex Female 3:33 AM TOOLROOM KEEPER Gender Identity Not on file Sexual Orientation [...] R/O COVID-19 07/25/2020 07/25/2020 07/27/2020 5:01 AM TOOLROOM KEEPER R/O COVID-19 09/30/2020 09/30/2020 09/30/2020 7:23 PM TOOLROOM KEEPER documented as of this encounter Care Teams Founder And Ceo Relationship Specialty Start Date End Date Radha Cowan MD [address] [phone] PCP - General Family Practice 10/24/20 documented as of this encounter
--- OUTSIDE RECORDS SUMMARY | 2025-05-21 19:46 | XMS_ITS | Encounter Summary ---
Author Organization [facility] Address [address] [place] [address] Care Team Providers Care Audit Partner Name Role Phone Radha Cowan MD Primary Care Provider Encounter Details Date Type Department Care Team (Latest Contact Info) Description 01/12/2003 Outpatient Historical [facility] [place] [address] [place] [address] Mirza Amezcua MD NO ADDRESS ON FILE COUGH (Primary Dx) Social History Tobacco Use Types Packs/Day Years Used Date Smoking Tobacco: Never Assessed Comments Unknown Sex and Gender Information Value Date Recorded Sex Assigned at Not on file Legal Sex Female 3:33 AM NURSING TECH Gender Identity Not on file Sexual Orientation Not on file documented as of this encounter Plan of Treatment Not on file documented as of this encounter Visit Diagnoses Diagnosis Cough- Primary documented in this encounter Additional Health Concerns Infection Onset Date Last Indicated Resolved Time R/O COVID-19 05/16/2020 05/16/2020 05/18/2020 12:3 1 AM CDT R/O COVID-19 07/25/2020 07/25/2020 07/27/2020 5:01 AM NURSING TECH R/O COVID-19 09/30/2020 09/30/2020 09/30/2020 7:23 PM NURSING TECH documented as of this encounter Care Teams Audit Partner Relationship Specialty Start Date End Date Radha Cowan MD [address] [facility] [address] [place] [phone] PCP - General Family Practice 10/24/20 documented as of this encounter
--- OUTSIDE RECORDS SUMMARY | 2025-05-21 19:46 | XMS_ITS | Encounter Summary ---
Author Organization [facility] Address [address] [place] [address] Care Team Providers Care Home Visit Field Care Manager Name Role Phone Radha Cowan MD Primary Care Provider [phone] Encounter Details Date Type Department Care Team (Latest Contact Info) Description 12/19/2001 Outpatient Historical [facility] Augusto Nicole Jr., MD [address] [place] [phone] ENDOCARDITIS NOS (Primary Dx); EDEMA Social History Tobacco Use Types Packs/Day Years Used Date Smoking Tobacco: Never Assessed Comments Unknown Sex and Gender Information Value Date Recorded Sex Assigned at Not on file Legal Sex Female 3:33 AM BISQUE CLEANER Gender Identity Not on file Sexual [...] R/O COVID-19 07/25/2020 07/25/2020 07/27/2020 5:01 AM BISQUE CLEANER R/O COVID-19 09/30/2020 09/30/2020 09/30/2020 7:23 PM BISQUE CLEANER documented as of this encounter Care Teams Home Visit Field Care Manager Relationship Specialty Start Date End Date Radha Cowan MD [address] [facility] [address] [place] [address] PCP - General Family Practice 10/24/20 documented as of this encounter
--- OUTSIDE RECORDS SUMMARY | 2025-05-21 19:46 | XMS_ITS | Encounter Summary ---
Author Organization [facility] Address [address] Charlesn: [place] [address] Care Team Providers Care Site Reliability Engineer Name Role Phone Radha Cowan MD Primary Care Provider [phone]- [phone] Encounter Details Date Type Department Care Team (Late st Contact Info) Description 09/01/2001 Outpatient Historical Augusto Nicole Jr., MD [address] [place] [phone] Social History Tobacco Use Types Packs/Day Years Used Date Smoking Tobacco: Never Assessed Comments Unknown Sex and Gender Information Value Date Recorded Sex Assigned at Not on file Legal Sex Female 3:33 AM VOLLEYBALL ASSISTANT COACH Gender Identity Not on file Sexual Orientation Not on file documented as of this encounter Plan of Treatment Not on file documented as of this encounter Visit Diagnoses Not on filedocumented in this encounter Additional Health Concerns Infection Onset Date Last Indicated Resolved Time R/O COVID-19 05/16/2020 05/16/2020 05/18/2020 12:3 1 AM CDT R/O COVID-19 07/25/2020 07/25/2020 07/27/2020 5:01 AM VOLLEYBALL ASSISTANT COACH R/O COVID-19 09/30/2020 09/30/2020 09/30/2020 7:23 PM VOLLEYBALL ASSISTANT COACH documented as of this encounter Care Teams Site Reliability Engineer Relationship Specialty Start Date End Date Radha Cowan MD [address] [facility] [address] [place] [phone] PCP - General Family Practice 10/24/20 documented as of this encounter
--- OUTSIDE RECORDS SUMMARY | 2025-05-21 19:46 | XMS_ITS | Encounter Summary ---
Author Organization [facility] Address [address] [place] [address] Care Team Providers Care Repossession Agent Name Role Phone Radha Cowan MD Primary Care Provider Encounter Details Date Type Department Care Team (Latest Contact Info) Description 04/27/2003 Outpatient Historical [facility] Augusto Nicole Jr., MD [address] [place] [phone] HAIR DISEASES NEC (Primary Dx); ABN SERUM ENZY LEVEL NEC; HYPERLIPIDEMIA NEC/NOS Social History Tobacco Use Types Packs/Day Years Used Date Smoking Tobacco: Never Assessed Comments Unknown Sex and Gender Information Value Date Recorded Sex Assigned at Not on file Legal Sex Female 3:33 AM SMASH PIECER Gender Identity Not on file Sexual Orientation [...] R/O COVID-19 07/25/2020 07/25/2020 07/27/2020 5:01 AM SMASH PIECER R/O COVID-19 09/30/2020 09/30/2020 09/30/2020 7:23 PM SMASH PIECER documented as of this encounter Care Teams Repossession Agent Relationship Specialty Start Date End Date Radha Cowan MD [address] [phone] PCP - General Family Practice 10/24/20 documented as of this encounter
--- OUTSIDE RECORDS SUMMARY | 2025-05-21 19:46 | XMS_ITS | Encounter Summary ---
Author Organization [facility] Address [address] [place] [address] Care Team Providers Care Pickle Maker Name Role Phone Radha Cowan MD Primary Care Provider [phone] Encounter Details Date Type Department Care Team (Latest Contact Info) Description 08/11/2002 Outpatient Historical [facility] Corey Burkett, Augusto Tang MD [address] [place] [phone] DIABETES UNCOMPL ADULT-TYPE II (CMS/HCC) (Primary Dx); DERMATOPHYTOSIS OF NAIL; ANEMIA NOS; VACCINE FOR INFLUENZA Social History Tobacco Use Types Packs/Day Years Used Date Smoking Tobacco: Never Assessed Comments Unknown Sex and Gender Information Value Date Recorded Sex Assigned at Not on file Legal Sex Female 3:33 AM REFINERY OPERATOR HELPER CRUDE UNIT Gender Identity Not on file Sexual [...] 07/25/2020 07/25/2020 07/27/2020 5:01 AM REFINERY OPERATOR HELPER CRUDE UNIT R/O COVID-19 09/30/2020 09/30/2020 09/30/2020 7:23 PM REFINERY OPERATOR HELPER CRUDE UNIT documented as of this encounter Care Teams Pickle Maker Relationship Specialty Start Date End Date Radha Cowan MD [address] [phone] PCP - General Family Practice 10/24/20 documented as of this encounter
--- OUTSIDE RECORDS SUMMARY | 2025-05-21 19:46 | XMS_ITS | Encounter Summary ---
Author Organization [facility] Address [address] [place] [address] Care Team Providers Care Workplace Trainer And Assessor Name Role Phone Radha Cowan MD Primary Care Provider Encounter Details Date Type Department Care Team (Latest Contact Info) Description 05/19/2002 Outpatient Historical [facility] Corey Burkett, Augusto Tang MD [address] [place] [phone] DIABETES UNCOMPL ADULT-TYPE II (CMS/HCC) (Primary Dx); Pure hypercholesterolem; AFTERCARE MACHINE OPERATOR TRANSPLANTER USE MEDICATN Social History Tobacco Use Types Packs/Day Years Used Date Smoking Tobacco: Never Assessed Comments Unknown Sex and Gender Information Value Date Recorded Sex Assigned at Not on file Legal Sex Female 3:33 AM CATALYST SUPERVISOR Gender Identity Not on file Sexual [...] R/O COVID-19 07/25/2020 07/25/2020 07/27/2020 5:01 AM CATALYST SUPERVISOR R/O COVID-19 09/30/2020 09/30/2020 09/30/2020 7:23 PM CATALYST SUPERVISOR documented as of this encounter Care Teams Workplace Trainer And Assessor Relationship Specialty Start Date End Date Radha Cowan MD [address] [phone] PCP - General Family Practice 10/24/20 documented as of this encounter
--- OUTSIDE RECORDS SUMMARY | 2025-05-21 19:46 | XMS_ITS | Encounter Summary ---
Author Organization [facility] Address [address] [place] [address] Care Team Providers Care Systems Integration Manager Name Role Phone Radha Cowan MD Primary Care Provider Encounter Details Date Type Department Care Team (Latest Contact Info) Description 04/19/2003 Outpatient Historical [facility] Augusto Nicole Jr., MD [address] [place] [phone] HYPERTENSION NOS (Primary Dx) Social History Tobacco Use Types Packs/Day Years Used Date Smoking Tobacco: Never Assessed Comments Unknown Sex and Gender Information Value Date Recorded Sex Assigned at Not on file Legal Sex Female 3:33 AM SEED CLEANER OPERATOR Gender Identity Not on file Sexual [...] R/O COVID-19 07/25/2020 07/25/2020 07/27/2020 5:01 AM SEED CLEANER OPERATOR R/O COVID-19 09/30/2020 09/30/2020 09/30/2020 7:23 PM SEED CLEANER OPERATOR documented as of this encounter Care Teams Systems Integration Manager Relationship Specialty Start Date End Date Radha Cowan MD [address] [facility] [address] [place] [phone] PCP - General Family Practice 10/24/20 documented as of this encounter
--- OUTSIDE RECORDS SUMMARY | 2025-05-21 19:46 | XMS_ITS | Encounter Summary ---
Author Organization [facility] Address [address] [place] [address] Care Team Providers Care Functional Manager Name Role Phone Radha Cowan MD Primary Care Provider Encounter Details Date Type Department Care Team (Late st Contact Info) Description 10/31/2004 Outpatient Historical [facility] Alfonso Carranza MD [address] [address] Social History Tobacco Use Types Packs/Day Years Used Date Smoking Tobacco: Never Assessed Comments Unknown Sex and Gender Information Value Date Recorded Sex Assigned at Not on file Legal Sex Female 3:33 AM PHYSICAL DIRECTOR Gender Identity Not on file Sexual Orientation Not on file documented as of this encounter Plan of Treatment Not on file documented as of this encounter Visit Diagnoses Not on filedocumented in this encounter Additional Health Concerns Infection Onset Date Last Indicated Resolved Time R/O COVID-19 05/16/2020 05/16/2020 05/18/2020 12:3 1 AM CDT R/O COVID-19 07/25/2020 07/25/2020 07/27/2020 5:01 AM PHYSICAL DIRECTOR R/O COVID-19 09/30/2020 09/30/2020 09/30/2020 7:23 PM PHYSICAL DIRECTOR documented as of this encounter Care Teams Functional Manager Relationship Specialty Start Date End Date Radha Cowan MD [address] [place] [phone] PCP - General Family Practice 10/24/20 documented as of this encounter
--- OUTSIDE RECORDS SUMMARY | 2025-05-21 19:46 | XMS_ITS | Encounter Summary ---
Author Organization [facility] Address [address] [place] [address] Care Team Providers Care Drama Teacher Name Role Phone Radha Cowan MD Primary Care Provider Encounter Details Date Type Department Care Team (Latest Contact Info) Description 01/15/2003 Outpatient Historical [facility] Corey Burkett, Augusto Tang MD [address] [place] [phone] DIABETES UNCOMPL ADULT-TYPE II (CMS/HCC) (Primary Dx); Pure hypercholesterolem; HYPERTENSION NOS; TOBACCO USE DISORDER Social History Tobacco Use Types Packs/Day Years Used Date Smoking Tobacco: Never Assessed Comments Unknown Sex and Gender Information Value Date Recorded Sex Assigned at Not on file Legal Sex Female 3:33 AM MANAGER COMMODITIES Gender Identity Not on file Sexual Orientation [...] COVID-19 07/25/2020 07/25/2020 07/27/2020 5:01 AM MANAGER COMMODITIES R/O COVID-19 09/30/2020 09/30/2020 09/30/2020 7:23 PM MANAGER COMMODITIES documented as of this encounter Care Teams Drama Teacher Relationship Specialty Start Date End Date Radha Cowan MD [address] [phone] PCP - General Family Practice 10/24/20 documented as of this encounter
--- OUTSIDE RECORDS SUMMARY | 2025-05-21 19:46 | XMS_ITS | Encounter Summary ---
Author Organization [facility] Address [address] [place] [address] Care Team Providers Care Electrophysiology Scientist Name Role Phone Radha Cowan MD Primary Care Provider Encounter Details Date Type Department Care Team (Latest Contact Info) Description 11/02/2002 Outpatient Historical [facility] Corey Burkett, Augusto Tang MD [address] [place] [phone] DIABETES UNCOMPL ADULT-TYPE II (CMS/HCC) (Primary Dx); Pure hypercholesterolem; LUMBAGO; ABNORMAL FINDINGS-LUNG FIELD Social History Tobacco Use Types Packs/Day Years Used Date Smoking Tobacco: Never Assessed Comments Unknown Sex and Gender Information Value Date Recorded Sex Assigned at Not on file Legal Sex Female 3:33 AM SCROLL SAW OPERATOR Gender Identity Not on file Sexual [...] R/O COVID-19 07/25/2020 07/25/2020 07/27/2020 5:01 AM SCROLL SAW OPERATOR R/O COVID-19 09/30/2020 09/30/2020 09/30/2020 7:23 PM SCROLL SAW OPERATOR documented as of this encounter Care Teams Electrophysiology Scientist Relationship Specialty Start Date End Date Radha Cowan MD [address] [phone] PCP - General Family Practice 10/24/20 documented as of this encounter
--- OUTSIDE RECORDS SUMMARY | 2025-05-21 19:46 | XMS_ITS | Encounter Summary ---
Author Organization [facility] Address [address] [place] [address] Care Team Providers Care Rn Or Lpn Name Role Phone Radha Cowan MD Primary Care Provider [phone] Encounter Details Date Type Department Care Team (Latest Contact Info) Description 02/19/2003 Outpatient Historical [facility] Corey Burkett, Augusto Tang MD [address] [place] [phone] DIABETES UNCOMPL ADULT-TYPE II (CMS/HCC) (Primary Dx); MIGRAINE NOS W/O MENTN INTRACTABLE; Pure hypercholesterolem; DERMATOPHYTOSIS OF NAIL Social History Tobacco Use Types Packs/Day Years Used Date Smoking Tobacco: Never Assessed Comments Unknown Sex and Gender Information Value Date Recorded Sex Assigned at Not on file Legal Sex Female 3:33 AM INDUSTRIAL COMMERCIAL GROUNDSKEEPER Gender Identity Not on file Sexual Orientation [...] R/O COVID-19 07/25/2020 07/25/2020 07/27/2020 5:01 AM INDUSTRIAL COMMERCIAL GROUNDSKEEPER R/O COVID-19 09/30/2020 09/30/2020 09/30/2020 7:23 PM INDUSTRIAL COMMERCIAL GROUNDSKEEPER documented as of this encounter Care Teams Rn Or Lpn Relationship Specialty Start Date End Date Radha Cowan MD [address] [phone] PCP - General Family Practice 10/24/20 documented as of this encounter
--- OUTSIDE RECORDS SUMMARY | 2025-05-21 19:46 | XMS_ITS | Encounter Summary ---
Author Organization [facility] Address [address] [place] [address] Care Team Providers Care Makeup Sales Advisor Name Role Phone Radha Cowan MD Primary Care Provider Encounter Details Date Type Department Care Team (Latest Contact Info) Description 08/11/2002 Outpatient Historical [facility] Augusto Nicole Jr., MD [address] [place] [phone] HYPERLIPIDEMIA NEC/NOS (Primary Dx) Social History Tobacco Use Types Packs/Day Years Used Date Smoking Tobacco: Never Assessed Comments Unknown Sex and Gender Information Value Date Recorded Sex Assigned at Not on file Legal Sex Female 3:33 AM GROUNDS MAINTENANCE WORKER Gender Identity Not on file Sexual [...] R/O COVID-19 07/25/2020 07/25/2020 07/27/2020 5:01 AM GROUNDS MAINTENANCE WORKER R/O COVID-19 09/30/2020 09/30/2020 09/30/2020 7:23 PM GROUNDS MAINTENANCE WORKER documented as of this encounter Care Teams Makeup Sales Advisor Relationship Specialty Start Date End Date Radha Cowan MD [address] [facility] [address] [place] [address] PCP - General Family Practice 10/24/20 documented as of this encounter
--- OUTSIDE RECORDS SUMMARY | 2025-05-21 19:46 | XMS_ITS | Encounter Summary ---
Author Organization [facility] Address [address] [place] [address] Care Team Providers Care Family Partner Name Role Phone Radha Cowan MD Primary Care Provider Encounter Details Date Type Department Care Team (Latest Contact Info) Description 12/14/2002 Outpatient Historical [facility] Augusto Nicole Jr., MD [address] [place] [phone] DIABETES UNCOMPL ADULT-TYPE II ([facility]) (Primary Dx); ACUTE SINUSITIS NOS; PULMONARY EOSINOPHILIA Social History Tobacco Use Types Packs/Day Years Used Date Smoking Tobacco: Never Assessed Comments Unknown Sex and Gender Information Value Date Recorded Sex Assigned at Not on file Legal Sex Female 3:33 AM SALES LEDGER CLERK Gender Identity Not on file Sexual Orientation [...] R/O COVID-19 07/25/2020 07/25/2020 07/27/2020 5:01 AM SALES LEDGER CLERK R/O COVID-19 09/30/2020 09/30/2020 09/30/2020 7:23 PM SALES LEDGER CLERK documented as of this encounter Care Teams Family Partner Relationship Specialty Start Date End Date Radha Cowan MD [address] [phone] PCP - General Family Practice 10/24/20 documented as of this encounter
--- OUTSIDE RECORDS SUMMARY | 2025-05-21 19:46 | XMS_ITS | Encounter Summary ---
Author Organization [facility] Address [address] [facility] [place] [address] Care Team Providers Care Governor Assembler Hydraulic Name Role Phone Radha Cowan MD Primary Care Provider Encounter Details Date Type Department Care Team (Late st Contact Info) Description 01/24/2004 Inpatient Historical [facility] [address] [place] [address] [facility] [address] [place] [id number] Augusto Wright III, MD NO ADDRESS ON FILE RECURR DEPR PSYCHOS-MOD (CMS/HCC) (Primary Dx) Social History Tobacco Use Types Packs/Day Years Used Date Smoking Tobacco: Never Assessed Comments Unknown Sex and Gender Information Value Date Recorded Sex Assigned at Not on file Legal Sex Female 3:33 AM HAND SCRAPER Gender Identity Not on file Sexual Orientation [...] R/O COVID-19 07/25/2020 07/25/2020 07/27/2020 5:01 AM HAND SCRAPER R/O COVID-19 09/30/2020 09/30/202009/3009/30/2020 7:23 PM HAND SCRAPER documented as of this encounter Care Teams Governor Assembler Hydraulic Relationship Specialty Start Date End Date Radha Cowan MD [address] [phone] PCP - General Family Practice 10/24/20 documented as of this encounter
--- OUTSIDE RECORDS SUMMARY | 2025-05-21 19:46 | XMS_ITS | Encounter Summary ---
Author Organization [facility] Address [address] [place] [address] Care Team Providers Care Milk Hauler Name Role Phone Radha Cowan MD Primary Care Provider Encounter Details Date Type Department Care Team (Latest Contact Info) Description 03/07/2003 Outpatient Historical [facility] Corey Burkett, Augusto Tang MD [address] [place] [phone] CHRONIC AIRWAY OBSTRUCTION NEC (CMS/[facility]) (Primary Dx); BRONCHITIS NOS; EDEMA; Pure hypercholesterolem Social History Tobacco Use Types Packs/Day Years Used Date Smoking Tobacco: Never Assessed Comments Unknown Sex and Gender Information Value Date Recorded Sex Assigned at Not on file Legal Sex Female 3:33 AM LEAD RAMP AGENT Gender Identity Not on file Sexual [...] R/O COVID-19 07/25/2020 07/25/2020 07/27/2020 5:01 AM LEAD RAMP AGENT R/O COVID-19 09/30/2020 09/30/2020 09/30/2020 7:23 PM LEAD RAMP AGENT documented as of this encounter Care Teams Milk Hauler Relationship Specialty Start Date End Date Radha Cowan MD [address] [phone] PCP - General Family Practice 10/24/20 documented as of this encounter
--- OUTSIDE RECORDS SUMMARY | 2025-05-21 19:46 | XMS_ITS | Encounter Summary ---
Author Organization [facility] Address [address] [place] [address] Care Team Providers Care Inbound Sales Consultant Name Role Phone Radha Cowan MD Primary Care Provider [phone] Encounter Details Date Type Department Care Team (Latest Contact Info) Description 11/06/[address] [facility] [address] [facility] [address] [place] [address] Juancarlos Sapp [place] NO ADDRESS [...] on file Legal Sex Female 3:33 AM CALCINER FEEDER Gender Identity Not on file Sexual Orientation Not on file Occupation Industry Job Start Date Job End Date Not on file Not on file Not on file Not on file COVID-19 Exposure Response Date Recorded In the last month, have you been in contact with someone who was confirmed or suspected to have Coronavirus / COVID-19? No / Unsure 11/04/2020 8:57 AM CALCINER FEEDER documented as of this encounter Plan of Treatment Not on file documented as of this encounter Visit Diagnoses Diagnosis Inconclusive mammography Inconclusive mammogram documented in this encounter Care Teams Inbound Sales Consultant Relationship Specialty Start Date End Date Radha Cowan MD [address] [place] [phone] PCP - General Family Practice 10/24/20 documented as of this encounter
--- OUTSIDE RECORDS SUMMARY | 2025-05-21 19:46 | XMS_ITS | Encounter Summary ---
Author Organization [facility] Address [address] [place] [address] Care Team Providers Care Medical Dermatologist Name Role Phone Radha Cowan MD Primary Care Provider [phone] Encounter Details Date Type Department Care Team (Latest Contact Info) Description 06/20/2003 Outpatient Historical [facility] Corey Burkett, Augusto Tnag MD [address] [place] [phone] DIABETES UNCOMPL ADULT-TYPE II ([facility]) (Primary Dx); ACUTE BRONCHIOLITIS/RESP SYNC VIRUS; TRACHEA/BRONCHUS DIS NEC; ASTHMA UNSPECIFIED Social History Tobacco Use Types Packs/Day Years Used Date Smoking Tobacco: Never Assessed Comments Unknown Sex and Gender Information Value Date Recorded Sex Assigned at Not on file 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
--- OUTSIDE RECORDS SUMMARY | 2025-05-21 19:46 | XMS_ITS | Encounter Summary ---
Author Organization [facility] Address [address] [place] [address] Care Team Providers Care Refractive Surgeon Name Role Phone Radha Cowan MD Primary Care Provider [phone] Encounter Details Date Type Department Care Team (Latest Contact Info) Description 07/05/2001 Outpatient Historical [facility] Augusto Nicole Jr., MD [address] [place] [phone] VACCINE FOR INFLUENZA (Primary Dx) Social History Tobacco Use Types Packs/Day Years Used Date Smoking Tobacco: Never Assessed Comments Unknown Sex and Gender Information Value Date Recorded Sex Assigned at Not on file 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
--- OUTSIDE RECORDS SUMMARY | 2025-05-21 19:46 | XMS_ITS | Encounter Summary ---
Author Organization [facility] Address [address] [place] [address] Care Team Providers Care History Tutor Name Role Phone Radha Cowan MD Primary Care Provider [phone] Encounter Details Date Type Department Care Team (Late st Contact Info) Description 06/20/2003 Outpatient Historical [facility] Augusto Nicole Jr., MD [address] [place] [phone] PNEUMONIA, ORGANISM NOS (Primary Dx) Social History Tobacco Use Types Packs/Day Years Used Date Smoking Tobacco: Never Assessed Comments Unknown Sex and Gender Information Value Date Recorded Sex Assigned at Not on file 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
[2025-05-21 19:56] VITALS: BP 195/147; PULSE 110; RESP 15; TEMP 36.8; O2SAT 92; BMI 42.0
--- NOTE | 2025-05-21 20:09 | XRR_ITS ---
PROCEDURE INFORMATION: Exam: XR Chest Exam date and time: 05/21/2025 8:15 PM Age: 70 years old Clinical indication: Chest wall pain; Additional info: Chest pain TECHNIQUE: Imaging protocol: Radiologic exam of the chest. Views: 1 view. COMPARISON: CT angio chest PE protcl [id number] 04/23/2025 1:23 PM FINDINGS: Tubes, catheters and devices: Left chest Port-A-Cath, Hernandez needle in place. Lungs: Thick band or strand-like opacity in the mid to upper right lung compatible with known mass and associated atelectasis. No definite acute infiltrate or effusion. Pleural spaces: Unremarkable. No pleural effusion. No pneumothorax. Heart/Mediastinum: Unremarkable. No cardiomegaly. Vasculature: Aortic atherosclerosis. Bones/joints: Few scattered strands, nonspecific although commonly chronic. Mild degenerative changes of the AC joints. XR/XR chest 1V portable [id number] IMPRESSION: No definite acute infiltrate or effusion.
[2025-05-21 21:31] LABS: Hematocrit 37.6 % (36-47); Hemoglobin 11.90 g/dL (11.27-16.99); Mean Corpuscular HGB Conc 31.6 g/dL (30-55); Mean Corpuscular Hemoglobin 29.9 pg (27-33); Mean Corpuscular Volume 94.5 fl (85-98); Nucleated Red Blood Cells % 0 %; Platelet Count 266 10^3/cmm (157-399); Red Blood Count 3.98 10^6/uL (3.85-5.65); White Blood Count 14.72 10^3/uL (3.29-11.43)
[2025-05-21 21:52] LABS: Alanine Aminotransferase 12 U/L (0-33); Albumin Level 3.8 g/dL (3.5-5.2); Alkaline Phosphatase 103 U/L (35-105); Anion Gap 16.2 (5-19); Aspartate Amino Transferase 9 U/L (0-32); Blood Urea Nitrogen 19 mg/dL (8-23); Calcium 9.3 mg/dL (8.5-10.5); Carbon Dioxide 28 mmol/L (22-29); Chloride 95 mmol/L (98-107); Creatinine Clr Calc Pharmacy 77.9944; Globulin 3.3 g/dL (1.3-4.6); Glucose 120 mg/dL (65-115); Osmolality Calculated 283 mOsm/kg (285-295); Potassium 4.2 mmol/L (3.5-5.1); Sodium 135 mmol/L (136-145); Total Protein 7.1 g/dL (6.6-8.7)
--- NOTE | 2025-05-21 22:30 | W.ED.GENADLT ---
HPI - General Adult General: Chief complaint: General Medical Stated complaint: Cancer treatment Hurting on RT side Time Seen by Provider: 05/21/25 22:30 History of Present Illness: 70-year-old female with a history of small cell lung cancer, COPD, chronic hypoxemic respiratory failure, PTSD, bipolar disorder, sleep apnea, obesity, hypertension, diabetes and congestive heart failure who presents the emergency room with right lateral rib and chest pain. She said it hurts to palpation and with breathing. She is on 4 L nasal cannula which is what she is on at home. She is very tachypneic and has extensive wheeze after moving from wheelchair to the bed. She has stable cough she says. She says she received a first dose of an IV cancer treatment earlier today. She says pain started 4 hours ago. She has not noticed any lower extremity swelling. Related Data Home Medications ?Medication ?Instructions ?Recorded ?Confirmed aspirin 81 mg tablet,delayed 81 mg PO DAILY 10/17/19 05/21/25 release insulin lispro 100 unit/mL See Rx Instructions SUBCUT TID PRN 08/02/23 05/21/25 subcutaneous pen (Humalog KwikPen blood sugar (U-100) Insulin) dulaglutide 3 mg/0.5 mL 3 mg SUBCUT Q7D 03/22/24 05/21/25 subcutaneous pen injector (Trulicity) levothyroxine 25 mcg tablet 25 mcg PO QAM 03/22/24 05/21/25 metoprolol tartrate 25 mg tablet 25 mg PO DAILY 03/22/24 05/21/25 doxepin 25 mg capsule 50 mg PO BEDTIME 05/29/24 05/21/25 latanoprost 0.005 % eye drops 1 drp ophthalmic (eye) BEDTIME 05/29/24 05/21/25 venlafaxine 150 mg 150 mg PO DAILY 11/14/24 05/21/25 capsule,extended release 24 hr magnesium hydroxide 400 mg/5 mL 30 ml PO Q2H PRN Constipation 02/05/25 05/21/25 oral suspension (Dulcolax (magnesium hydroxide)) ubrogepant 50 mg tablet 50 mg PO 1XD PRN Migraine Headache 02/05/25 05/21/25 arformoterol 15 mcg/2 mL solution 2 ml inhalation DAILY 02/19/25 05/21/25 for nebulization cholecalciferol (vitamin D3) 125 125 mcg PO DAILY 02/19/25 05/21/25 mcg (5,000 unit) capsule ipratropium bromide 17 2 puff inhalation Q8H PRN 02/19/25 05/21/25 mcg/actuation HFA aerosol inhaler Shortness Of Breath loratadine 10 mg capsule (Allergy 10 mg PO DAILY 02/19/25 05/21/25 Relief (loratadine)) Previous Rx's ?Medication ?Instructions ?Recorded atorvastatin 10 mg tablet 10 mg PO DAILY 90 days #90 tabs 01/05/24 albuterol sulfate 90 mcg/actuation 2 inh inhalation Q6H PRN shortness 02/06/25 aerosol inhaler (Ventolin HFA) of breath or wheezing #8.5 grams pantoprazole 40 mg tablet,delayed 40 mg PO BID #180 tabs 02/06/25 release gabapentin 300 mg capsule 300 mg PO BID #60 caps 04/23/25 dexamethasone 2 mg tablet 2 mg PO BID #30 tabs 05/10/25 loperamide 2 mg capsule 2 mg PO .COMPLEX PRN loose stool 05/15/25 #24 caps ondansetron HCl 4 mg tablet 4 mg PO Q6H PRN nausea and 05/15/25 vomiting #30 tabs prochlorperazine maleate 10 mg 10 mg PO Q4H PRN mild nausea #30 05/15/25 tablet (Compazine) tabs albuterol sulfate 90 mcg/actuation 2 inh inhalation Q4H PRN shortness 05/21/25 aerosol inhaler of breath or wheezing #6.7 grams benzonatate 200 mg capsule 200 mg PO TID PRN cough #30 caps 05/21/25 doxycycline monohydrate 100 mg 100 mg PO BID 10 days #20 caps 05/21/25 capsule lactulose 10 gram/15 mL oral 20 g (30 mL) PO DAILY PRN 05/21/25 solution constipation #1,200 mL prednisone 20 mg tablet 60 mg (3 x 20 mg) PO DAILY #20 tabs 05/21/25 Allergies Allergy/AdvReac Type Severity Reaction Status Date / Time codeine Allergy Unknown ADR-Nausea Verified 05/21/25 20:12 adhesive tape Allergy ALGY-Bliste Verified 05/21/25 20:12 r ketorolac (From Toradol) Allergy Unknown Verified 05/21/25 20:12 melatonin Allergy ADR-Nausea Verified 05/21/25 20:12 Review of Systems Narrative: Constitutional symptoms: Negative except as documented in HPI. Skin symptoms: Negative except as documented in HPI. Eye symptoms: Negative except as documented in HPI. ENMT symptoms: Negative except as documented in HPI. Respiratory symptoms: Negative except as documented in HPI. Cardiovascular symptoms: Negative except as documented in HPI. Gastrointestinal symptoms: Negative except as documented in HPI. Genitourinary symptoms: Negative except as documented in HPI. Musculoskeletal symptoms: Negative except as documented in HPI. Neurologic symptoms: Negative except as documented in HPI. Psychiatric symptoms: Negative except as documented in HPI. Endocrine symptoms: Negative except as documented in HPI. 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 Pleuritic chest pain Chronic hypoxemic respiratory failure Small cell lung cancer Nicotine use disorder PTSD (post-traumatic stress disorder) Bipolar disorder current episode depressed History of attempted suicide Hypothyroidism (acquired) Duodenitis Gastritis Sleep apnea Obesity Bipolar affect, depressed Depression Hypertension Diabetes Oxygen dependent CHF (congestive heart failure) GERD (gastroesophageal reflux disease) COPD (chronic obstructive pulmonary disease) 3L o2 , mild to mod copd responsive to bronchodilator Enrolled in chronic care management Surgical History History of appendectomy H/O colonoscopy with polypectomy H/O esophagogastroduodenoscopy Tubal ligation status S/P cholecystectomy Family History Father Lung cancer Sister Ovarian cancer Mother Diabetes Other CAD (coronary artery disease) Social History Smoking and tobacco/nicotine status: current every day tobacco/nicotine user cigarettes Packs smoked per day: 1 Years cigarettes smoked: 37 [ Other cigarette details: She had quit smoking for 8 months, but then started again.] Alcohol intake: former Year of sobriety/quit date alcohol: 1999 Substance/Drug Use: never Additional social history: She lives alone and states she drives herself to her chemo. She wants full CODE STATUS as discussed today with Fredi Curry MD on 02/05/2025 Adopted: No Caregiver/support person: No Lives independently: No Household members: family Housing: House Current gender identity: Female Physical Exam Narrative: EXAM NARRATIVE: General: Alert, no acute distress. Skin: Warm, dry. Head: Normocephalic, atraumatic. Neck: Supple, trachea midline. Eye: Extraocular movements are intact. Ears, nose, mouth and throat: Oral mucosa moist. Cardiovascular: Tachycardic, Normal peripheral perfusion. Respiratory: coarse, scattered wheeze, mild increased wob. tachypnea, breath sounds are equal, Symmetrical chest wall expansion. Gastrointestinal: Soft, Nontender, Non distended Musculoskeletal: Normal ROM, no deformity. Neurological: Alert and oriented, No focal neurological deficit observed. Psychiatric: Cooperative, appropriate mood & affect. Course Vital Signs: Vital signs: Vital Signs Temperature 98.2 F 05/21/25 19:56 Pulse Rate 126 H 05/21/25 23:20 Respiratory Rate 24 H 05/21/25 23:19 Blood Pressure 104/78 05/21/25 23:20 Pulse Oximetry 94 05/21/25 23:20 Oxygen Delivery Me thod Nasal Cannula 05/21/25 23:20 Oxygen Flow Rate 5 05/21/25 23:20 MDM - General Adult Medical Decision Making Differential diagnosis for patient with shortness of breath includes but is not limited to and based on the above HPI, review of systems and physical exam: Pneumonia. Bronchitis. Asthma or COPD with acute exacerbation. Acute coronary syndrome / NM. Pulmonary embolism. Anxiety. Congestive heart failure. Viral infections including influenza and Covid-19. Atrial fibrillation. Anxiety. Pleural effusion. Pneumothorax. Orders placed to evaluate differential diagnosis based on the above differential, HPI and physical exam EKG: Time 2005. Rate 120. Sinus tachycardia, No ST-T changes, no ectopy, right bundle branch block, This was reviewed and interpreted by myself the ER physician at 2009 Chest x-ray: Left chest Port-A-Cath. Hernandez needle in place. Stable right upper atelectasis and mass. No acute process. No infiltrate. No pneumothorax. This was reviewed and interpreted by myself the emergency room physician. I also reviewed the radiology report. Lab Review: Laboratory results were reviewed and interpreted by myself the emergency room physician. Mild stable leukocytosis from labs done earlier this morning. No anemia. No renal failure. CTA chest PE protocol: Lung mass and atelectasis as previous. No PE. This was reviewed and interpreted by myself the emergency room physician. I also reviewed the radiology report. I reviewed the patient's medical record. 70-year-old female with a history of small cell lung cancer, COPD, chronic hypoxemic respiratory failure, PTSD, bipolar disorder, sleep apnea, obesity, hypertension, diabetes and congestive heart failure. Reexamination: Patient with some mild wheeze still but pain is much improved and breathing is much improved. Likely pain is from the tumor in her lung. She stable on 4 L nasal cannula. This is her home oxygen level. Assessment and plan: COPD with acute exacerbation Noncardiac chest pain/likely secondary to mass in the right upper lobe Known lung cancer ?IV Solu-Medrol, 2 updrafts, IV Dilaudid. - Discharged home - Discussed plan with patient. Answered any questions. - Evaluation and treatment of this problem were appropriate in the emergency setting. Lab Data 05/21/25 21:22 05/21/25: Radiology Impressions Chest X-Ray 05/21/25 20:09 IMPRESSION: No definite acute infiltrate or effusion. Chest CTA 05/21/25 22:34 IMPRESSION: 1. No definitive radiographic evidence of significant pulmonary embolism or right heart strain. 2. Aortic and coronary atherosclerosis. 3. Right upper lung mass compatible with known history of small cell lung cancer, currently measuring up to 8.2 cm in maximum dimension. This mass encases and narrows the associated pulmonary arteries resulting in minimal flow to the upper lung. Laboratory Results WBC 14.72 10^3/uL (3.29-11.43) H 05/21/25 21: RBC 3.98 10^6/uL (3.85-5.65) 05/21/25 21: Hgb 11.90 g/dL (11.27-16.99) 05/21/25: Hct 37.6 % (36-47) 05/21/25 21: MCV 94.5 fl (85-98) 05/21/25 21: MCH 29.9 pg (27-33) 05/21/25: MCHC 31.6 g/dL (30-55) 05/21/25: RDW 16.7 % (12.1-15.1) H 05/21/25: Plt Count 266 10^3/cmm (157-399) 05/21/25 21: MPV 9.0 fL (7.4-10.4) 05/21/25 21: Neut % (Auto) 88.6 % 05/21/25 21:22 Lymph % (Auto) 3.8 % 05/21/25 21: [place] % (Auto) 6.8 % 05/21/25 21: Eos % (Auto) 0.3 % 05/21/25 21:22 Baso % (Auto) 0.2 % 05/21/25 21: Neut # (Auto) 13.03 10^3/uL (1.8-7.7) H 05/21/25 21:22 Lymph # (Auto) 0.6 10^3/uL (0.8-4.8) L 05/21/25 21:22 [place] # (Auto) 1.0 10^3/uL (0.2-0.9) H 05/21/25 21:22 Eos # (Auto) 0.1 10^3/uL (0.0-0.8) 05/21/25 21: Baso # (Auto) 0.0 10^3/uL (0.0-0.1) 05/21/25 21: Nucleated RBC % (auto) 0 % 05/21/25 21: Nucleated RBCs # 0.0 /100WBC 05/21/25 21:22 Specimen Type Arterial 05/21/25 22:54 Sample Site Radial, right 05/21/25 22:54 ABG pH 7.41 (7.35-7.45) 05/21/25 22:54 ABG pCO2 43.8 mmHg (35-45) 05/21/25 22:54 ABG pO2 73.2 mmHg (80.0-100.0) L 05/21/25 22:54 ABG PO2/FiO2 Ratio 203 05/21/25 22:54 ABG HCO3 27.8 mmol/L (22-26) H 05/21/25 22:54 ABG O2 Saturation 95.3 05/21/25 22:54 ABG Base Excess 2.7 mmol/L (-2.0-2.0) H 05/21/25 22:54 Leonel Test Pos 05/21/25 22:54 A-a O2 Gradient 16.9 mmHg (5-10) H 05/21/25 22:54 Hematocrit 37.8 % (37-47) 05/21/25 22:54 Hgb O2 Saturation 92.4 % (95-100) L 05/21/25 22:54 Carboxyhemoglobin 2.1 %THgb (0.4-20.1) 05/21/25 22:54 Methemoglobin 0.9 % (0.4-1.5) 05/21/25 22:54 Total Hemoglobin 12.3 g/dL (12-16) 05/21/25 22:54 Sodium 136.0 mmol/L (131-143) 05/21/25 22:54 Potassium 4.1 mmol/L (3.5-5.0) 05/21/25 22:54 Glucose 139.0 mg/dL (70-115) H 05/21/25 22:54 Ionized Calcium 1.2 mmol/L (1.1-1.4) 05/21/25 22:54 O2 Delivery Device Nc 05/21/25 22:54 O2 Liters/Min 4.0 % 05/21/25 22:54 FiO2 36.0 % 05/21/25 22:54 Assistant Professor Of Religion ID [email or web address] 05/21/25 22:54 Sodium 135 mmol/L (136-145) L 05/21/25 21:22 Potassium 4.2 mmol/L (3.5-5.1) 05/21/25 21:22 Chloride 95 mmol/L (98-107) L 05/21/25 21:22 Carbon Dioxide 28 mmol/L (22-29) 05/21/25 21:22 Anion Gap 16.2 (5-19) 05/21/25 21:22 BUN 19 mg/dL (8-23) 05/21/25 21:22 Creatinine 0.6 mg/dL (0.5-0.9) 05/21/25 21:22 GFR Calculation 99.1 mL/min (90-130) 05/21/25 21:22 Glucose 120 mg/dL (65-115) H 05/21/25 21:22 Calculated Osmolality 283 mOsm/kg (285-295) L 05/21/25 21:22 Calcium 9.3 mg/dL (8.5-10.5) 05/21/25 21:22 Total Bilirubin 0.3 mg/dL (0.15-1.2) 05/21/25 21:22 AST 9 U/L (0-32) 05/21/25 21:22 ALT 12 U/L (0-33) 05/21/25 21:22 Alkaline Phosphatase 103 U/L (35-105) 05/21/25 21:22 Total Protein 7.1 g/dL (6.6-8.7) 05/21/25 21:22 Albumin 3.8 g/dL (3.5-5.2) 05/21/25 21:22 Globulin 3.3 g/dL (1.3-4.6) 05/21/25 21:22 All radiology interpretation(s) finalized by discharge Discharge Plan Discharge Patient Disposition: Home Clinical Impression: Non-cardiac chest pain, 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 2 tabs (40 mg) x 3 days. 1 tab (20 mg) x 3 days. 1/2 tab (10 mg) x 4 days No Action aspirin 81 mg tablet,delayed release (DR/EC) 81 mg PO DAILY atorvastatin 10 mg tablet 10 mg PO DAILY 90 Days Qty: 90 2RF gabapentin 300 mg capsule 300 mg PO BID Qty: 60 0RF insulin lispro [Humalog KwikPen Insulin] 100 unit/mL insulin pen See Rx Instructions SUBCUT TID PRN (Reason: blood sugar) Rx Instructions: Use per sliding scale subcutaneously three times daily. doxepin 25 mg capsule 50 mg PO BEDTIME latanoprost 0.005 % drops 1 drp ophthalmic (eye) BEDTIME cholecalciferol (vitamin D3) 125 mcg (5,000 unit) capsule 125 mcg PO DAILY arformoterol 15 mcg/2 mL solution for nebulization 2 ml inhalation DAILY Allergy Relief (loratadine) 10 mg capsule 10 mg PO DAILY ipratropium bromide 17 mcg/actuation HFA aerosol inhaler 2 puff inhalation Q8H PRN (Reason: Shortness Of Breath) lactulose 10 gram/15 mL solution 20 g PO DAILY PRN (Reason: constipation) Qty: 1200 2RF Rx Instructions: Take 30 mL every 2 hours until bowel movement. If no bowel movement within 72 hours, may repeat. pantoprazole 40 mg tablet,delayed release (DR/EC) 40 mg PO BID Qty: 180 0RF dexamethasone 2 mg tablet 2 mg PO BID Qty: 30 0RF prochlorperazine maleate [Compazine] 10 mg tablet 10 mg PO Q4H PRN (Reason: mild nausea) Qty: 30 3RF loperamide 2 mg capsule 2 mg PO .COMPLEX PRN (Reason: loose stool) Qty: 24 0RF Rx Instructions: Follow package instructions ondansetron HCl 4 mg tablet 4 mg PO Q6H PRN (Reason: nausea and vomiting) Qty: 30 3RF venlafaxine 150 mg capsule,extended release 24hr 150 mg PO DAILY Trulicity 3 mg/0.5 mL pen injector 3 mg SUBCUT Q7D Rx Instructions: ON WEDNESDAY levothyroxine 25 mcg tablet 25 mcg PO QAM metoprolol tartrate 25 mg tablet 25 mg PO DAILY magnesium hydroxide [Dulcolax (magnesium hydroxide)] 400 mg/5 mL Suspension 30 ml PO Q2H PRN (Reason: Constipation) ubrogepant 50 mg Tablet 50 mg PO 1XD PRN (Reason: Migraine Headache) albuterol sulfate [Ventolin HFA] 90 mcg/actuation HFA aerosol inhaler 2 inh inhalation Q6H PRN (Reason: shortness of breath or wheezing) Qty: 8.5 0RF Discharge Orders: Discharge ED (Routine); Ordered 05/22/25 Ordered By: Sarah Calvillo Referrals: Tavarez,Kiesha, GEOSCIENTIST [Primary Care Provider, Nurse Practitioner] Discharge Diet: As Directed Discharge Activity: Increase activity as tolerated Patient Instructions: COPD (Chronic Obstructive Pulmonary Disease) (ED), Noncardiac Chest Pain (ED), Opioid Safety, Pain Management, Patient Portal & Pankaj Instructions Activity Restrictions/Additional Instructions: Thank you for choosing [facility] for your healthcare needs today. You have been screened and evaluated and felt safe for discharge. Health conditions do change or evolve sometimes and as such it is important that you follow up with your Primary Doctor to be re checked, 3-5 days is a general good time frame for follow up. You are always welcome to return to the ED for re assessment if your symptoms are worsening or you have new concerns Print Language: Frisian Coding Level of Care Code ED Grid Caster for Farhat Cooper
--- NOTE | 2025-05-21 22:34 | CTR_ITS ---
PROCEDURE INFORMATION: Exam: CTA Chest With Contrast Exam date and time: 05/21/2025 11:32 PM Age: 70 years old Clinical indication: Shortness of breath; Small cell lung cancer, hurting on right side; Additional info: Hypoxemia, tachycardia TECHNIQUE: Imaging protocol: Computed tomographic angiography of the chest with contrast. Exam focused on the arteries. 3D rendering (Not supervised by radiologist): MIP and/or 3D reconstructed images were created by the technologist. Radiation optimization: All CT scans at this facility use at least one of these dose optimization techniques: automated exposure control; mA and/or kV adjustment per patient size (includes targeted exams where dose is matched to clinical indication); or iterative reconstruction. Contrast material: OMNI 350; Contrast volume: 100 ml; Contrast route: INTRAVENOUS (IV); COMPARISON: CT angio chest PE protcl [id number] 04/23/2025 1:23 PM RADIATION DOSE METRICS: Total DLP (mGy-cm): 505.81 FINDINGS: Tubes, catheters and devices: Left IJ central line. Pulmonary arteries: No definitive radiographic evidence of significant pulmonary embolism or right heart strain. Aorta: Aortic and coronary atherosclerosis. Lungs: Right upper lung mass compatible with known history of small cell lung cancer, currently measuring up to 8.2 cm in maximum dimension. This mass encases and narrows the associated pulmonary arteries resulting in minimal flow to the upper lung. Pleural spaces: Unremarkable. No pneumothorax. No pleural effusion. Heart: Unremarkable. No cardiomegaly. No pericardial effusion. Lymph nodes: Unremarkable. No enlarged lymph nodes. Intraperitoneal space: Visualized upper abdomen grossly unremarkable. Bones/joints: Mild degenerative changes of the thoracic vertebral bodies. No acute fracture. Soft tissues: Unremarkable. Motion artifact limits exam. CT/CT angio chest PE protcl [id number] IMPRESSION: 1. No definitive radiographic evidence of significant pulmonary embolism or right heart strain. 2. Aortic and coronary atherosclerosis. 3. Right upper lung mass compatible with known history of small cell lung cancer, currently measuring up to 8.2 cm in maximum dimension. This mass encases and narrows the associated pulmonary arteries resulting in minimal flow to the upper lung.
[2025-05-21 22:36] VITALS: BP 167/122; PULSE 122; O2SAT 97
[2025-05-21 23:06] LABS: ABG PCO2 43.8 mmHg (35-45); ABG PH Result 7.41 (7.35-7.45); Alveolar-Arterial Oxygen Gradi 16.9 mmHg (5-10); Arterial Blood Gas Hematocrit 37.8 % (37-47); Blood Gas Allen Test Pos; Blood Gas LPM 4.0 %; Blood Gas Operator Identificat gerca; Blood Gas Sample Site Radial, right; Blood Gas Sample Type Arterial; Carboxyhemoglobin 2.1 %THgb (0.4-20.1); Glucose Level-ABG 139.0 mg/dL (70-115); HCO3 ABG 27.8 mmol/L (22-26); Ionized Calcium Level - ABG 1.2 mmol/L (1.1-1.4); Methemoglobin 0.9 % (0.4-1.5); Oxygen Saturation ABG 95.3; PO2 ABG 73.2 mmHg (80.0-100.0); PO2 FiO2 Ratio Arterial Blood 203; Potassium Level - ABG 4.1 mmol/L (3.5-5.0); Sodium Level - ABG 136.0 mmol/L (131-143)
[2025-05-21 23:10] VITALS: PULSE 123; RESP 18; O2SAT 96
[2025-05-21 23:19] VITALS: PULSE 111; RESP 24; O2SAT 97
[2025-05-21] MEDS: methylPREDNISolone sod succ 125 mg/2 mL INJ IVP (23:19)
[2025-05-21] MEDS: HYDROmorphone 0.5 MG/0.5 ML INJ IVP (23:19)
[2025-05-21 23:20] VITALS: BP 104/78; PULSE 126; O2SAT 94
[2025-05-21 23:30] VITALS: BP 104/78; PULSE 127; O2SAT 94
[2025-05-21] MEDS: iohexol 350 mg/mL 500 mL Btl (per mL) IV (23:55)
[2025-05-22 00:30] VITALS: BP 141/92; PULSE 112; O2SAT 91
[2025-05-22 01:07] VITALS: BP 145/91; PULSE 108; O2SAT 92
[2025-05-22 01:08] VITALS: BP 145/91; PULSE 110; O2SAT 91
--- NOTE | 2025-05-22 01:46 | PC.NURSE ---
[facility] FROM [facility] ([id number]) STATED TO SEND PT HOME WITH O2 TANK AND STATED THEY ARE TRYING TO MIN THE STAFF FROM COMING TO THE ED AT NIGHT TIME FOR O2. PT WAS TOLD TO BRING IT BACK TOMORROW AT HER [facility]COL[facility].
== END 2025-05-22 01:57 | disposition home or self-care (01) ==
PROVIDERS: Emergency Provider Emergency Medicine; PCP Nurse Practitioner Family
DX: R07.89 Other chest pain (principal); C34.11 Malignant neoplasm of upper lobe, right bronchus or lung; J44.1 Chronic obstructive pulmonary disease with (acute) exacerbation; Z79.82 Long term (current) use of aspirin; Z79.85 Long-term (current) use of injectable non-insulin antidiabetic drugs; F17.210 Nicotine dependence, cigarettes, uncomplicated; I11.0 Hypertensive heart disease with heart failure; I50.9 Heart failure, unspecified; E11.9 Type 2 diabetes mellitus without complications
CPT/HCPCS: 36415; 36600; 71045; 71275; 80051; 80053; 82330; 82805; 85025; 94640; 96374; 96375; 99285; J1171; J2919; J7613; J9999

== ENCOUNTER 2025-05-28 10:00 | Oncology outpatient (recurring) (ONCR) | payer MEDICARE, MEDICAID, SELFPAY ==
--- NOTE | 2025-05-09 13:45 | MR_ITS ---
WS: [id number] MRI HEAD WITH CONTRAST TECHNIQUE: Sagittal T1, T2 axial, T2 axial FLAIR, axial susceptibility weighted imaging, axial diffusion weighted images, and coronal T2 images were obtained. Pre and post-T1 axial and post T1 coronal images. ADC and FSPGR images. CLINICAL INFORMATION: complete blindness x 3 on Wednesday COMPARISON: MRI 12/18/2024 FINDINGS: New small ring-enhancing metastatic lesions in the bilateral centrum semiovale largest on the LEFT measuring 6.3 mm. Additional small enhancing RIGHT temporal metastatic lesion measuring 3.5 mm with a small amount of edema. Tiny enhancing foci RIGHT parietal lobe near the vertex also suspicious for metastatic disease. Postgadolinium images are degraded by motion artifact which limits evaluation especially in the posterior fossa. No restricted diffusion to suggest acute ischemia. Moderate periventricular supratentorial white matter changes likely due to a combination of small vessel disease and treatment related effect. Small vessel changes in the tanya. MPRESSION: 1. 3 new enhancing foci of metastatic disease in the LEFT greater than RIGHT centrum semiovale and RIGHT temporal lobe. The largest lesion in the LEFT centrum semiovale measuring 6.3 mm. Small amount of edema associated with the RIGHT temporal lesion. 2. 1 or 2 additional tiny faint foci of enhancement in the RIGHT parietal lobe near the vertex also suspicious for tiny metastatic foci. Some images are significantly degraded by motion artifact which limits evaluation 3. No hydrocephalus. No mass effect or midline shift.
[2025-05-09] MEDS: gadobenate dimeglumine 20 mL vial IV (14:06)
--- NOTE | 2025-05-14 17:56 | N.ONRAD NP_ITS ---
Radiation Oncology New Patient Visit Patient: Marli Eli MR#: [id number] : 1955 Age: 70 Sex: Female Dictated by: Dr. Travis Shipman Date of Service: 05/14/2025 Referring Physician(s) : Dr. Cardoso Diagnosis: Limited small cell carcinoma of RUL s/p, chemo and chest radiation followed by PCI in the past now with central relapse and early asymptomatic intracranial metastases. Now on salvage systemic treatment. Radiotherapy to date: Summary Thoracic radiation and PCI in [place]. Chief Complaint / History of Present Illness: See Dr. Cardoso???s summary. Over the last 2 weeks she has fallen or tripped 4 times. She has had two episodes of sudden vision loss 09/2024 and 04/2025. She lives with her brother. She has not driven for ears. . She has been on chronic nasal O2 now increased from 3 to 4 L. She continues to smoke 1 ppd. Shehas no LAWLER, N or V. No visual sxs. Now plans on using a walker. Chest CT 04/23 vs 02/04/2025 Stable posterior RUL mass extending to mediastinum and encasing pulmonary arter. MRI 05/09/2025 6 mm ring enhancing right and 3 mm ring enhancing left central parietal lesions, 3 mm right temporal lesion and suspicious apical tiny enhancing apical lesions seen. Current Medications: albuterol sulfate 90 mcg/actuation (Ventolin HFA) 2 inhalations inhalation Q6H PRN arformoterol 2 mL inhalation DAILY aspirin 81 mg PO DAILY atorvastatin 10 mg PO DAILY 90 days cholecalciferol (vitamin D3) 125 mcg PO DAILY dexamethasone 2 mg PO BID doxepin 50 mg PO BEDTIME dulaglutide (Trulicity) 3 mg SUBCUT Q7D gabapentin 300 mg PO BID insulin lispro (Humalog KwikPen (U-100) Insulin) Use per sliding scale subcutaneously three times daily. ipratropium bromide 17 mcg/actuation 2 puffs inhalation Q8H PRN latanoprost 0.005% 1 drp ophthalmic (eye) BEDTIME levothyroxine 25 mcg PO QAM loratadine (Allergy Relief (loratadine)) 10 mg PO DAILY magnesium hydroxide (Dulcolax (magnesium hydroxide)) 30 mL PO Q2H PRN metoprolol tartrate 25 mg PO DAILY ondansetron HCl 4 mg PO Q6H PRN pantoprazole 40 mg PO BID prochlorperazine maleate (Compazine) 10 mg PO Q4H PRN ubrogepant 50 mg PO 1XD PRN venlafaxine ER 150 mg PO DAILY Allergies: codeine Allergy (Unknown, Verified 05/14/25 15:17) ADR-Nausea adhesive tape Allergy (Verified 05/14/25 15:17) ALGY-Blister ketorolac (From Toradol) Allergy (Verified 05/14/25 15:17) Unknown melatonin Allergy (Verified 05/14/25 15:17) ADR-Nausea Medical History: No history of collagen vascular disease. No previous radiation therapy. 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 Pleuritic chest pain Chronic constipation Chronic hypoxemic respiratory failure Small cell lung cancer Nicotine use disorder PTSD (post-traumatic stress disorder) Bipolar disorder current episode depressed History of attempted suicide Hypothyroidism (acquired) Duodenitis Gastritis Sleep apnea Obesity Bipolar affect, depressed Depression Hypertension Diabetes Oxygen dependent CHF (congestive heart failure) GERD (gastroesophageal reflux disease) COPD (chronic obstructive pulmonary disease) 3L o2 , mild to mod copd responsive to bronchodilator Enrolled in chronic care management Surgical History: History of appendectomy H/O colonoscopy with polypectomy H/O esophagogastroduodenoscopy Tubal ligation status S/P cholecystectomy Family History: Father Lung cancer Sister Ovarian cancer Mother Diabetes Other CAD (coronary artery disease) Social History: Smoking and tobacco/nicotine status: current every day tobacco/nicotine user cigarettes Packs smoked per day: 1 Years cigarettes smoked: 37 [ Other cigarette details: She had quit smoking for 8 months, but then started again.] Alcohol intake: former Year of sobriety/quit date alcohol: 1999 Substance/Drug Use: never Additional social history: She lives alone and states she drives herself to her chemo. She wants full CODE STATUS as discussed today with Fredi Curry MD on 02/05/2025 Adopted: No Caregiver/support person: No Lives independently: No Household members: family Housing: House Current gender identity: Female Current Complaints / Review of Systems: . Vital Signs: Performed on 05/14/2025 3:31 PM BMI - 41.629 kg/m2 (high), Height - 63 in, Weight - 235 lbs, Temperature - 98.3 f, Pulse - 105 /min (high), Respiration - 19 /min, O2 Sat - 96 %, Pain - 6, Fatigue - 0 and BP - 162/ 94 mm(hg)(high). Physical Exam: Obese in NAD. Nasal O2. No palpable adenopathy. Performance Status: ECOG PS 2 Imaging: See HPI Impression: Central right thoracic relapse of small cell carcinoma and asymptomatic tiny cerebral metastases. Three metastases are small and distinct for metastatic lesions two or more are vague enhancing lesions that are of uncertain significance. None are symptomatic. I recommend continued systemic alone for now and re image with repeat MRI head in 1 or 2 months to aid in determining number of actual metastatic lesions. Then depending on her overall functional status and general tumor control status, a better treatment decision of her intracranial disease can be made. Plan: Follow up MRI brain in 1 to 2 months. Discussed with patient and Dr. Cardoso. Signed by: 05/14/2025 5:54:55 PM <<Signature on File>> Time spent with patient: CPT Code: CPT Code:
--- NOTE | 2025-05-18 10:11 | PETR_ITS ---
PROCEDURE INFORMATION: Exam: PET/CT Skull Base to Mid-thigh Exam date and time: 05/18/2025 12:08 PM Age: 70 years old Clinical indication: Condition or disease; Condition/disease: Lung CA (rul); Additional info: Surveillance LABS AND CLINICAL REPORTS: Glucose: 89 mg/dl Treatment strategy for malignancy (PET staging): Restaging (PS) TECHNIQUE: Imaging protocol: Following at least four-hour fasting and following the injection of radiopharmaceutical, low dose CT images were obtained. Then, PET images were obtained. Attenuation corrected images were constructed using the CT scan. Fused images of PET and CT were reviewed. The standardized uptake values (SUV) reported below are maximum values within a region of interest, expressed in gm/ml. Exam includes orbital meatal line to mid-thigh. SUV normalization method: BodyWeight Radiopharmaceutical: 12.1 mCi F-18 FDG (Fluorodeoxyglucose), IV. Time of imaging post radiopharmaceutical administration: 60 minutes Injection site: PAC COMPARISON: PT PET skull to thigh SUBS [id number] 12/08/2024 9:20 AM FINDINGS: Tubes, catheters and devices: Left chest port terminates near the superior cavoatrial junction. Brain: Visualized brain has normal physiologic uptake. Pharynx: No abnormal uptake. Larynx: No abnormal uptake. Lungs, pleura and trachea: Redemonstrated mildly FDG avid right upper lobe consolidative opacity with increased opacification of the anterior aspect such as on axial image 87 with SUV max 6.1. There is also mildly increased opacification at the inferior aspect with index medial subpleural nodular area measuring 1.8 cm on axial image 92 showing SUV max 5.1, previously more ill-defined measuring approximately 1.3 cm without FDG avidity. Heart: Normal physiologic uptake. Mediastinal space: No abnormal uptake. Liver: No abnormal uptake. Gallbladder and biliary ducts: No abnormal uptake. Prior cholecystectomy. Pancreas: No abnormal uptake. Spleen: No abnormal uptake. Adrenal glands: No abnormal uptake. Kidneys and ureters: Normal physiologic uptake. Stomach and bowel: FDG uptake along decompressed gastric pylorus. Otherwise unremarkable. Vasculature: No abnormal uptake. Mild systemic atherosclerotic calcification without aortic aneurysm. Lymph nodes: Decreased size lower mediastinal mass at the posterior esophageal margin measures approximately 4 x 2 cm and shows SUV max 7.8 on axial image 112, previously 4.5 x 3.5 cm with SUV max 7.1. Skeleton: Focal FDG uptake at the right posterior acetabulum without underlying CT abnormality shows SUV max 4.8 on axial image 232 and proximal left femoral FDG avid lesion with mixed sclerotic and lucent lesion on CT (axial image 241) with SUV max 8.5 on axial image 245. Degenerative change along the axial skeletal system and acromioclavicular joints. Soft tissues: No suspicious abnormal uptake in the visualized head, neck, chest, abdomen, pelvis, and extremities. Low-level right shoulder and pectoralis muscle uptake as well as bilateral neck and upper intercostal muscles without underlying CT abnormality is likely benign. Mild left ventral abdominal wall subcutaneous fat stranding and tiny air lucency likely on the basis of recent injection. METRICS: Mediastinal blood pool: SUV mean 1.7 Liver uptake: SUV mean 2.3 PET/PET skull to thigh SUBS [id number] IMPRESSION: 1. Increased FDG avid opacification at anterior and inferior aspect of otherwise stable right upper lobe consolidation. Concern for malignancy, possibly infectious or inflammatory. 2. Decreased size with mildly increased uptake of distal mediastinal mass at the posterior esophageal margin concerning for metastatic lymphadenopathy. 3. FDG avid osseous lesions at the right posterior acetabulum and proximal left femur likely representing metastases. 4. FDG uptake along decompressed gastric pylorus is favored benign physiologic or inflammatory. 5. Additional chronic and incidental findings as above.
[2025-05-21 07:34] LABS: Hematocrit 35.0 % (36-47); Hemoglobin 11.20 g/dL (11.27-16.99); Mean Corpuscular HGB Conc 32.0 g/dL (30-55); Mean Corpuscular Hemoglobin 30.2 pg (27-33); Mean Corpuscular Volume 94.3 fl (85-98); Nucleated Red Blood Cells % 0 %; Platelet Count 275 10^3/cmm (157-399); Red Blood Count 3.71 10^6/uL (3.85-5.65); White Blood Count 14.75 10^3/uL (3.29-11.43)
[2025-05-21 07:55] LABS: Alanine Aminotransferase 11 U/L (0-33); Albumin Level 3.8 g/dL (3.5-5.2); Alkaline Phosphatase 100 U/L (35-105); Anion Gap 15.1 (5-19); Aspartate Amino Transferase 9 U/L (0-32); Blood Urea Nitrogen 18 mg/dL (8-23); Calcium 9.1 mg/dL (8.5-10.5); Carbon Dioxide 27 mmol/L (22-29); Chloride 101 mmol/L (98-107); Creatinine Clr Calc Pharmacy 77.6738; Globulin 3.1 g/dL (1.3-4.6); Glucose 102 mg/dL (65-115); Osmolality Calculated 290 mOsm/kg (285-295); Potassium 4.1 mmol/L (3.5-5.1); Sodium 139 mmol/L (136-145); Total Protein 6.9 g/dL (6.6-8.7)
[2025-05-21] MEDS: ondansetron 2 mg/ML SDV 2 mL 8 MG IVP (09:07)
[2025-05-21] MEDS: TOPOTECAN IV (09:26)
[2025-05-21] MEDS: SODIUM CHLORIDE 0.9% IV (09:26)
[2025-05-21 10:18] VITALS: BP 135/84; PULSE 87; RESP 20; TEMP 36.2; O2SAT 96
[2025-05-22] MEDS: ondansetron 2 mg/ML SDV 2 mL 8 MG IVP (09:23)
[2025-05-22] MEDS: TOPOTECAN IV (09:52)
[2025-05-22] MEDS: SODIUM CHLORIDE 0.9% IV (09:52)
[2025-05-22 11:32] VITALS: BP 119/76; PULSE 93; RESP 18; TEMP 36.1; O2SAT 94
[2025-05-23 08:17] VITALS: BP 137/84; PULSE 95; RESP 18; TEMP 36.9; O2SAT 96
[2025-05-23] MEDS: ondansetron 2 mg/ML SDV 2 mL 8 MG IVP (08:28)
[2025-05-23] MEDS: TOPOTECAN IV (09:07)
[2025-05-23] MEDS: SODIUM CHLORIDE 0.9% IV (09:07)
[2025-05-23 09:59] VITALS: BP 119/79; PULSE 76; RESP 18; TEMP 36.2; O2SAT 97
[2025-05-24 08:23] VITALS: BP 118/86; PULSE 93; O2SAT 97
[2025-05-24] MEDS: ondansetron 2 mg/ML SDV 2 mL 8 MG IVP (08:36)
[2025-05-24] MEDS: SODIUM CHLORIDE 0.9% IV (09:14)
[2025-05-24] MEDS: TOPOTECAN IV (09:14)
[2025-05-24 09:57] VITALS: BP 121/83; PULSE 88; TEMP 36.3; O2SAT 95
[2025-05-25] MEDS: ondansetron 2 mg/ML SDV 2 mL 8 MG IVP (08:47)
[2025-05-25] MEDS: TOPOTECAN IV (09:27)
[2025-05-25] MEDS: SODIUM CHLORIDE 0.9% IV (09:27)
[2025-05-25] MEDS: pegfilgrastim 6 mg/0.6 mL Kit (onpro) SUBCUT (10:27)
[2025-05-25 10:30] VITALS: BP 125/94; PULSE 89; RESP 17; TEMP 36.3; O2SAT 99
[2025-05-28 09:51] LABS: Hematocrit 35.4 % (36-47); Hemoglobin 11.30 g/dL (11.27-16.99); Mean Corpuscular HGB Conc 31.9 g/dL (30-55); Mean Corpuscular Hemoglobin 30.1 pg (27-33); Mean Corpuscular Volume 94.1 fl (85-98); Platelet Count 147 10^3/cmm (157-399); Red Blood Count 3.76 10^6/uL (3.85-5.65)
[2025-05-28 10:05] LABS: Alanine Aminotransferase 12 U/L (0-33); Albumin Level 3.5 g/dL (3.5-5.2); Alkaline Phosphatase 77 U/L (35-105); Anion Gap 17.7 (5-19); Aspartate Amino Transferase 6 U/L (0-32); Blood Urea Nitrogen 30 mg/dL (8-23); Calcium 8.5 mg/dL (8.5-10.5); Carbon Dioxide 26 mmol/L (22-29); Chloride 99 mmol/L (98-107); Creatinine Clr Calc Pharmacy 77.0439; Globulin 2.5 g/dL (1.3-4.6); Glucose 145 mg/dL (65-115); Osmolality Calculated 297 mOsm/kg (285-295); Potassium 3.7 mmol/L (3.5-5.1); Sodium 139 mmol/L (136-145); Total Protein 6.0 g/dL (6.6-8.7)
[2025-05-28 10:18] LABS: Slide Review Slide Review Perform
[2025-05-28 10:19] LABS: Absolute Segmented Neutrophil 0.2 10/cmm (1.6-7.1); Atypical Lymphs 26.0 % (0-5); Band Neutrophils Absolute 0.0 10^3/cmm (0.0-1.2); Total Cells Counted 100 (0-100)
[2025-05-28 10:20] LABS: White Blood Count 0.86 10^3/uL (3.29-11.43)
== END 2025-05-28 23:59 | disposition home or self-care (01) ==
PROVIDERS: Internal Medicine Medical Oncology; Absent Provider Nurse Practitioner Family; PCP Nurse Practitioner Family; Visit Provider Nurse Practitioner Family
DX: Z53.9 Procedure and treatment not carried out, unspecified reason (principal); C34.11 Malignant neoplasm of upper lobe, right bronchus or lung; F17.210 Nicotine dependence, cigarettes, uncomplicated; R03.0 Elevated blood-pressure reading, without diagnosis of hypertension; K59.00 Constipation, unspecified; F41.8 Other specified anxiety disorders; Z92.3 Personal history of irradiation; Z79.899 Other long term (current) drug therapy; Z71.6 Tobacco abuse counseling; Z92.21 Personal history of antineoplastic chemotherapy
CPT/HCPCS: 36591; 70553; 78815; 80053; 85007; 85025; 96372; 96375; 96377; 96413; 96523; 99205; 99214; 99215; A9552; J2405; J2506; J7050; J9351; J9999

== ENCOUNTER 2025-05-30 09:27 | Inpatient (IN) | payer MEDICARE, MEDICAID, SELFPAY ==
[2025-05-30] VITALS (16 sets, daily range): BP systolic 100–122; BP diastolic 67–89; PULSE 102–123; RESP 17–34; TEMP 36.8–37.1; O2SAT 92–100; BMI 37.2; BMI 44.5
--- OUTSIDE RECORDS SUMMARY | 2025-05-30 09:35 | XMS_ITS | Encounter Summary ---
Author Organization [facility] [employer] Address [address] [place] [address] Care Team Providers Care Tile Grader Name Role Phone Unavailable Primary Care Provider Unavailabl e Encounter Details Date Type Department Care Team (Late st Contact Info) Description 05/29/2025 External Device Data [facility] ABSTRACTION Provider, Abstract [...] who hurts you emotionally and/or physically? No 05/22/2025 Comments No Sex and Gender Information Value Date Recorded Sex Assigned at Not on file Legal Sex Female 1:48 PM DIRECTOR INTELLIGENCE ANALYSIS PROGRAMS Gender Identity Not on file Sexual Orientation Not on file documented as of this encounter Plan of Treatment Not on file documented as of this encounter Visit Diagnoses Not on filedocumented in this encounter Additional Health Concerns Assessment Noted Time PHQ-9 Depression Total Score: 2 05/06/20 21 9:14 AM CDT documented as of this encounter
--- OUTSIDE RECORDS SUMMARY | 2025-05-30 09:35 | XMS_ITS | Encounter Summary ---
Author Organization [facility] Address [address] [place] [address] Care Team Providers Care Form Setter Steel Pan Forms Name Role Phone Unavailable Primary Care Provider [...] on file Legal Sex Female 1:48 PM WORK ORDER DETAILER Gender Identity Not on file Sexual Orientation Not on file documented as of this encounter Plan of Treatment Not on file documented as of this encounter Visit Diagnoses Not on filedocumented in this encounter Additional Health Concerns Assessment Noted Time PHQ-9 Depression Total Score: 2 05/06/20 21 9:14 AM CDT documented as of this encounter
--- OUTSIDE RECORDS SUMMARY | 2025-05-30 09:35 | XMS_ITS | Patient Health Record ---
Author Organization [facility] Address [address] [place] [address] Care Team Providers Care Internet Site Designer Name Role Phone Augusto Nicole [phone] Allergies Allergen (clinical drug ingredient) Drug/Non Drug [...] Problem Status W/U Status Risk Notes Problem Hypertension (28473159) Hypertension (401.1) 2010 Active confirmed [id number]- Problem Peripheral neuropath y (097587026) Peripheral neuropathy (356.9) 2015 Active confirmed [id number]- Problem Scabies (762012696) Scabies (133.0) 12/05 Problem resolved confirmed [id number]- Problem Bipolar affective disorder, currently depressed, mild (584354402) Bipolar I disorder, most recent episode (or current) depressed, mild (296.51) 2009 Problem resolved confirmed [id number]- Problem Morbid obesity (186517472) Morbid obesity (278.01) 2003 Problem resolved confirmed [id number]- Problem Subarachnoid hemorrhage (81755809) Subarachnoid hemorrhage (430) 2010 Problem resolved confirmed [id number]- Problem Acute respiratory failure (86321516) Acute respiratory failure (518.81) 2016 Problem resolved confirmed [id number]- Problem Female stress incontinence (03050939) Female stress incontinence (625.6) 2013 Problem resolved confirmed [id number]- Problem Altered consciousnes s (9868743) Transient alteration of awareness (780.02) 2007 Problem resolved confirmed [id number]- Problem Headache (03931937) Headache (784.0) 04/06 Problem resolved confirmed [id number]- Problem Shortness of breath (008735221) Shortness of breath (786.05) 2007 Problem resolved confirmed [id number]- Problem Wheezing (32535357) Wheezing (786.07) 2010 Problem resolved confirmed [id number]- Problem Cough (09086060) Cough (786.2) 2005 Problem resolved confirmed [id number]- Problem Heartburn (98533024) Heartburn (787.1) 2007 Problem resolved confirmed [id number]- Problem Diarrhea (88640026) Diarrhea (787.91) 2007 Problem resolved confirmed [id number]- Problem Dysuria (42895358) Dysuria (788.1) 2008 Problem resolved confirmed [id number]- Problem Sleep apnea (90053284) Sleep apnea (780.57) 2014 Problem resolved confirmed [id number]- Problem Hypercholesterolemia (57547281) Hypercholesterolemia (272.0) 2003 Problem resolved confirmed [id number]- Problem Congenital heart disease (91776746) Imperfect heart valve (746.89) 2009 Problem resolved confirmed [id number]- Problem Shoulder pain (65617629) Shoulder pain (719.41) 2004 Problem resolved confirmed [id number]- Problem Nosebleed (109615904) Nosebleed (784.7) 0 2008 Problem resolved confirmed [id number]- Problem Allergic rhinitis caused by pollen (68170358) Allergies (477.0) 2014 Problem resolved confirmed [id number]- Problem Acute exacerbation o f chronic obstructive airways disease (894845229) Chronic bronchitis, obstructive, with (acute) exacerbation (491.21) 2016 Problem resolved confirmed [id number]- Problem Disorder of hematopoietic system (27231799) Other abnormal findings on blood examination (790.99) 2015 Problem resolved confirmed [id number]- Problem Tobacco abuse (6069468789) Tobacco abuse (305.1) 2003 Problem resolved confirmed [id number]- Problem Acute exacerbation o f chronic obstructive airways disease (870036766) Acute exacerbation of chronic obstructive pulmonary disease (COPD) (491.21) 2013 Problem resolved confirmed [id number]- Problem Tobacco user (098771992) Cigarette smoking (305.1) 2009 Problem resolved confirmed [id number]- Problem Depressive disorder (01826791) Depressive disorder not elsewhere classified (311) 2009 Problem resolved confirmed [id number]- Problem Gastroesophageal reflux disease (173528573) Gastroesophageal reflux disease (530.81) 2014 Problem resolved confirmed [id number]- Problem Generalized abdomina l pain (811213461) Generalized abdominal pain (789.07) 2013 Problem resolved confirmed [id number]- Problem Solitary nodule of lung (954723182) Lung nodule (518.89) 2013 Problem resolved confirmed [id number] [id number]- Problem Lymphadenopathy (06215775) Lymphadenopathy (785.6) 2015 Problem resolved confirmed [id number]- Problem Sinus tachycardia (02643572) Sinus tachycardia (427.89) 2008 Problem resolved confirmed Mane-[id number] [id number]- Problem Sleep apnea (69298352) ABIGAIL (780.57) 2013 Problem resolved confirmed [id number]- Problem Candidiasis (17029551) Yeast infection (112.9) 2015 Problem resolved confirmed [id number]- Problem Exposure to coug h and potentially infected aerosol from TB patient (V15.85) 2009 Problem resolved confirmed [id number] [id number]- Problem Knee pain (3409498010) Knee pain (719.46) 2015 Problem resolved confirmed Mane-98 [id number]- Problem Urinary tract infection (67684007) Urinary tract infection (595.0) 2008 Problem resolved confirmed Mane-98 [id number]- Problem Elbow pain (34192185) Elbow pain (719.42) 2012 Problem resolved confirmed Mane-98 [id number]- Problem COPD - Chronic obstructive pulmonary disease (61454799) COPD (496) 2012 Problem resolved confirmed Mane-98 [id number]- Problem Tinea pedis (2300636) Tinea pedis (110.4) 2013 Problem resolved confirmed Mane-98 [id number]- Problem Acute upper respiratory infection (74499318) Upper respiratory illness (465.8) 2009 Problem resolved confirmed Mane-98 [id number]- Problem Vaginal discharge (044681954) Vaginal discharge (616.10) 2009 Problem resolved confirmed Mane-[id number] [id number]- Problem Epigastric pain (43084060) Epigastric abdominal pain (789.06) 2004 Problem resolved confirmed Mane-98 [id number]- Problem Shoulder joint pain (960526820) Joint pain, shoulder region (719.41) 2004 Problem resolved confirmed Mane-98 5911- Problem Mild major depression, single episode (51504962) Major depression, single episode, mild (296.21) 2011 Problem resolved confirmed Mane-98 5911- Problem Pedal edema (196914505) Pedal edema (782.3) 2015 Problem resolved confirmed Mane-98 5911- Problem Screening for malignant neoplasm of breast (980610957) Screening for breast cancer, unspecified (V76.10) 2015 Problem resolved confirmed Mane-[id number]- Problem Insect bite (492515508) Insect bite (919.4) 2011 Problem resolved confirmed Mane-98 5911- Problem Chronic insomnia (305260005) Chronic insomnia (307.42) 2012 Problem resolved confirmed Mane-98 5911- Problem Pneumococcal pneumonia (702205353) Acute lobar pneumonia (481) 2008 Problem resolved confirmed Mane-98 [id number]- Problem Heel pain (0994644) Heel pain (729.5) 2007 Problem resolved confirmed Mane-98 [id number]- Problem Depression (308641098) Depression (296.20) 2003 Problem resolved confirmed Mane-98 [id number]- Problem Constipation (23552422) Constipation (564.01) 2009 Problem resolved confirmed Mane-98 [id number]- Problem Migraine with aura (4097920) Classic migraine (346.00) 2007 Problem resolved confirmed Mane-98 5911- Problem Chronic obstructive pulmonary disease (41052269) Chronic obstructive pulmonary disease (496) 2008 Problem resolved confirmed Mane-98 5911- Problem Nondependent alcohol abuse, episodic (663268729) Alcohol abuse, episodic (305.02) 2010 Problem resolved confirmed Mane-98 5911- Problem Obstructive sleep apnea (25674594) Obstructive sleep apnea (780.57) 2009 Problem resolved confirmed Mane-98 5911- Problem Common migraine (56174665) Common migraine (346.10) 2009 Problem resolved confirmed Mane-98 5911- Problem Anxiety depression (304774766) Anxiety with depression (300.4) 2007 Problem resolved confirmed Mane-98 5911- Problem Needs influenza immunization (274907200) Vaccination against other viral diseases, Influenza (V04.81) 2009 Problem resolved confirmed Mane-98 5911- Problem Tobacco user (318699340) Tobacco abuse affecting health (305.1) 2012 Problem resolved confirmed Mane-98 5911- Problem Serous otitis media (48136230) Serous otitis media (381.4) 2006 Problem resolved confirmed Mane-98 5911- Problem Precordial pain (96133938) Precordial chest pain (786.51) 2004 Problem resolved confirmed Mane-98 5911- Problem Mitral valve regurgitation (45506764) Mitral valve regurgitation (424.0) 2004 Problem resolved confirmed Mane-98 5911- Problem Pain in limb (66240031) Leg pain (729.5) 2006 Problem resolved confirmed Mane-98 5911- Problem Insomnia (829502469) Insomnia (307.41) 2008 Problem resolved confirmed Mane-98 5911- Problem Mixed hyperlipidemia (174590025) Hypercholesterolemia with hypertriglyceridemia (272.2) 2005 Problem resolved confirmed Mane-98 5911- Problem Family history of malignant neoplasm of ovary (745562952) Family history of ovarian cancer (V16.41) 2007 Problem resolved confirmed Mane-98 5911- Problem Poisoning caused by antidepressant (63325553) Antidepressant medication overdose (969.0) 2007 Problem resolved confirmed Mane-98 5911- Problem Sore throat (680361266) Sore Throat (462) 2007 Problem resolved confirmed Mane-98 5911- Problem Pleural pain (4462406) Pleural pain (786.52) 2011 Problem resolved confirmed Mane-98 5911- Problem Disorder of hematopoietic system (94200348) Other abnormal laboratory result on blood (790.99) 2007 Problem resolved confirmed Mane-98 5911- Problem Chest pain (84576634) Chest pain (786.50) 2007 Problem resolved confirmed Mane-98 5911- Problem Bruising (339020531) Bruising (782.7) 2008 Problem resolved confirmed Mane-98 5911- Problem Onychomycosis caused by dermatophyte (723036982) Toe onychomycosis (110.1) 2004 Problem resolved confirmed Mane-98 5911- Problem Shortness of breath (350177016) Shortness of breath (786.09) 2010 Problem resolved confirmed Mane-98 5911- Problem Tuberculosis screening (425107933) Screening for pulmonary tuberculosis (V74.1) 2010 Problem resolved confirmed Mane-98 5911- Problem Major depression, single episode (88950463) Major depression, single episode, unspecified (296.20) 2003 Problem resolved confirmed Mane-98 5911- Problem Headache (51099529) Headache (307.81) 2009 Problem resolved confirmed Mane-98 5911- Problem Thoracic back pain (412633386) Upper back pain (724.1) 2008 Problem resolved confirmed Mane-98 5911- Problem Low back pain (591101459) Low back pain (724.2) 2010 Problem resolved confirmed Mane-98 5911- Problem Depression (724089502) Depression (311) 2004 Problem resolved confirmed Mane-98 5911- Problem Rash (016781317) Rash (782.1) 2011 Problem resolved confirmed Mane-98 5911- Problem Gynecological examination normal (974612656227723) Routine gynecological examination (V72.31) 2008 Problem resolved confirmed Mane-98 5911- Problem Urinary frequency (041788789) Urinary frequency (788.41) 2011 Problem resolved confirmed Mane-98 5911- Problem Urge incontinence of urine (16662598) Urge incontinence (788.31) 2007 Problem resolved confirmed Mane-98 5911- Problem Diabetes mellitus type 2 (disorder) (93489095) Type 2 diabetes (250.00) 2005 Problem resolved confirmed Mane-98 5911- Problem Possible STD exposure (V15.85) 2010 Problem resolved confirmed Mane-98 5911- Problem Type II diabetes mellitus without complication (869379491) NIDDM (250.00) 2005 Problem resolved confirmed Mnae-98 [id number]- Problem Coronary arteriosclerosis (disorder) (80928864) Coronary artery disease, of [place] coronary artery (414.01) 2004 Problem resolved confirmed Mane-98 [id number]- Plan Of Treatment No Information Medical (General) History Surgical History Surgery Date(Month/Year) AppendectomyCholecystectomy: 1979; Tubal Ligation: 1986;
--- OUTSIDE RECORDS SUMMARY | 2025-05-30 09:35 | XMS_ITS | Encounter Summary ---
Author Organization [employer] Address 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
--- OUTSIDE RECORDS SUMMARY | 2025-05-30 09:35 | XMS_ITS | Clinical Summary ---
Author Organization [facility] Address [facility] [place] [address] Care Team Providers Care Cruise Consultant Name Role Phone Radha Cowan MD Primary Care Provider +1- [phone] Allergies Active Allergy Reactions Criticality Noted Date [...] 6 months. 1 Each 0 Active Insulin Carney, Disposable, (Lite Touch Insulin Pen Carney) 31 gauge x 5/16 Needle 100 Each by [facility].(Non-Drug; Combo Route) route. Active metFORMIN (GLUCOPHAGE) 1,000 [...] hyperglycemia, without long-term current use of insulin ([facility]),Chroni c obstructive pulmonary disease, unspecified COPD type ([facility]),Benign hypertension Take 1 Tablet (150 mg) by [...] deliveryIndicati ons:Respiratory failure with hypoxia, unspecified chronicity ([facility]) Home Oxygen Concentrator yes at 3 L/M [...] on file Legal Sex Female 3:33 AM REAMING PRESS OPERATOR Gender Identity Not on file Sexual [...] complication, without long-term current use of insulin ([facility]) MAMMO SCREEN BILAT W OR WO CAD Routine 10/30/2020 1:26 PM REAMING PRESS OPERATOR Screening mammogram, encounter for MICROALBUMIN/CREATI NINE RATIO, [...] 93 <100 mg/dL 01/08/2021 9:13 PM CDT [facility] Blood Venipuncture / Unknown 01/08/2021 11:00 AM CDT 01/08/2021 7:53 PM CDT Narrative [facility] - 01/08/2021 [...] >190, Very high Based on AHA/NCEP guidelines Juancarlos DELGADO CHEMISTRY ORDERABLES Final Re sult Performing Organization Address [facility]/ZIP Co de Phone Number [facility]OM[facility] RADHA CLIA# [id number] [address] [place] [address] * (ABNORMAL) HEMOGLOBIN A1C (01/08/2021 11:00 AM CDT) HEMOGLOBIN A1C 7.5(H) See Comment % 01/08/2021 8:17 PM CDT [facility] EST. AVG GLUCOSE, A1C 169 mg/dL 01/08/2021 8:17 PM CDT [facility] Blood Venipuncture / Unknown 01/08/2021 11:00 AM CDT 01/08/2021 7:53 PM CDT [facility]PARK RADHA - 01/08/2021 8:17 PM CDT HGB A1C INTERPRETATION NORMAL: <5.7% PRE-DIABETES: 5.7 - 6.4% DIABETES: 6.5% OR GREATER Falsely low A1C measurements can occur when: 1. Anemia and/or hemolytic anemia is present. 2. Hemoglobin variants present. 3. Renal failure. 4. Transfusion of blood product in the last 120 days. We recommend ordering a fructosamine test([id number]) to more accurately assess glycemic status if any of the above conditions are present. Juancarlos DELGADO CHEMISTRY ORDERABLES Final Re sult Performing Organization Address [facility]/ZIP Co de Phone Number [facility] CLIA# [id number] [address] [place] [address] * MAMMO SCREEN BILAT W OR WO CAD (10/30/2020 1:26 PM REAMING PRESS OPERATOR) Anatomical Region Laterality Modality Breast Bilateral Mammography 10/30/2020 1:29 PM REAMING PRESS OPERATOR Impressions 11/03/2020 11:28 AM REAMING PRESS OPERATOR : Focal asymmetry in the upper outer quadrant of the left breast for which additional imaging evaluation is recommended. BI-RADS ASSESSMENT: 0 - Incomplete Recommendation: Additional Imaging [id number] Narrative 11/03/2020 11:28 AM REAMING PRESS OPERATOR EXAM: MAMMO SCREEN BILAT W OR WO [...] Reference Range mg/dL 12/19/2019 8:46 PM CDT [facility] CREATININE, URINE 66.3 29.0 - 226.0 mg/dL 12/19/2019 8:46 PM CDT [facility] Comment:Reference Range vari es with fluid intake and diet. MICROALBUMIN/C REAT RATIO, UR 18.1 <25.0 mg/g 12/19/2019 8:46 PM CDT [facility] Urine URINE SPECIMEN OBTAINED BY CLEAN CATCH PROCEDURE / Unknown Collection / Unknown 12/19/2019 9:05 AM CDT 12/19/2019 7:43 PM CDT Narrative [facility] - 12/19/2019 8:46 PM CDT Condition Microalbumin/Creat ratio Normal Males <17 Normal Females <25 Microalbuminuria Males 17-299 Microalbuminuria Females 25-299 Overt proteinuria >=300 us [place] NP URINE ORDERABLES Final Result [facility] CLIA# [id number] [facility] [place] [address] from Last 3 Months or Most Recently Relevant to Health Maintenance Insurance [place] [address] AND [facility] MEDICAID [place] Advance Directives For more information, please contact: [phone] Documents on File Type Date Recorded Patient Police Cadet Expl anation Advance Directive POA 01/24/2012 7:28 AM Advance Directive Living Will 01/24/2012 Advance Directive POA 01/22/2012 10:32 AM Health Care Directive * Full Code (Latest Code Status on File) Date Activated Date Inactivated Comments 07/18/2015 11:12 PM 07/24/2015 2:39 PM Care Teams Cruise Consultant Relationship Specialty Start Date End Date Radha Cowan MD [address] [place] [phone] PCP - General Family Practice 10/24/20
--- NOTE | 2025-05-30 09:36 | ECG_ITS ---
[employer] Test Date: 2025-05-30 Pat Name: Marli Eli Department: Room: Gender: Female Info Specialist: : 1955 Requested By: Carlos Toribio Order Number: [id number] Delgado MD: Bruno Franks M.D. Measurements Intervals [place] Rate: 106 P: 68 [place]: 126 QRS: 77 QRSD: 133 T: 48 QT: 338 QTc: 449 Interpretive Statements SINUS TACHYCARDIA RIGHT BUNDLE BRANCH BLOCK [120+ ms QRS DURATION, UPRIGHT V1, 40+ ms S IN I/aVL/V4/V5/V6] INTERPRETATION BASED ON A DEFAULT AGE OF 40 YEARS Compared to ECG 04/23/2025 11:54:21 NO SIGNIFICANT CHANGE Electronically Signed On 05-30-2025 21:22:12 CDT by Bruno Franks M.D. [email or web address]
--- OUTSIDE RECORDS SUMMARY | 2025-05-30 09:36 | XMS_ITS | Encounter Summary ---
Author Organization [facility] Address [address] [place] [address] Care Team Providers Care Fabrication Inspector Name Role Phone Radha Cowan MD Primary Care Provider Encounter Details Date Type Department Care Team (Latest Contact Info) Description 12/06/1998 Outpatient Historical [facility] Augusto Nicole Jr., MD [address] [place] [phone] Dietary surveil/intake counselor (Primary Dx) Social History Tobacco Use Types Packs/Day Years Used Date Smoking Tobacco: Never Assessed Comments Unknown Sex and Gender Information Value Date Recorded Sex Assigned at Not on file Legal Sex Female 3:33 AM TELETYPESETTER MONITOR Gender Identity Not on file Sexual Orientation Not on file documented as of this encounter Plan of Treatment Not on file documented as of this encounter Visit Diagnoses Diagnosis Dietary surveil/intake counselor- Primary Dietary surveillance and counseling documented in this encounter Additional Health Concerns Infection Onset Date Last Indicated Resolved Time R/O COVID-19 05/16/2020 05/16/2020 05/18/2020 12:3 1 AM CDT R/O COVID-19 07/25/2020 07/25/2020 07/27/2020 5:01 AM TELETYPESETTER MONITOR R/O COVID-19 09/30/2020 09/30/2020 09/30/2020 7:23 PM TELETYPESETTER MONITOR documented as of this encounter Care Teams Fabrication Inspector Relationship Specialty Start Date End Date Radha Cowan MD [address] [facility] [address] [place] [address] PCP - General Family Practice 10/24/20 documented as of this encounter
--- OUTSIDE RECORDS SUMMARY | 2025-05-30 09:36 | XMS_ITS | Encounter Summary ---
Author Organization [facility] Address [address] Charlesn: [place] [address] Care Team Providers Care Analyst Market Intelligence Name Role Phone Radha Cowan MD Primary Care Provider [phone]- [phone] Encounter Details Date Type Department Care Team (Late st Contact Info) Description 02/18/2001 Outpatient Historical Augusto Nicole Jr., MD [address] [place] [phone] Social History Tobacco Use Types Packs/Day Years Used Date Smoking Tobacco: Never Assessed Comments Unknown Sex and Gender Information Value Date Recorded Sex Assigned at Not on file Legal Sex Female 3:33 AM MANAGER OF INTERNAL Gender Identity Not on file Sexual Orientation Not on file documented as of this encounter Plan of Treatment Not on file documented as of this encounter Visit Diagnoses Not on filedocumented in this encounter Additional Health Concerns Infection Onset Date Last Indicated Resolved Time R/O COVID-19 05/16/2020 05/16/2020 05/18/2020 12:3 1 AM CDT R/O COVID-19 07/25/2020 07/25/2020 07/27/2020 5:01 AM MANAGER OF INTERNAL R/O COVID-19 09/30/2020 09/30/2020 09/30/2020 7:23 PM MANAGER OF INTERNAL documented as of this encounter Care Teams Analyst Market Intelligence Relationship Specialty Start Date End Date Radha Cowan MD [address] [place] [phone] PCP - General Family Practice 10/24/20 documented as of this encounter
--- OUTSIDE RECORDS SUMMARY | 2025-05-30 09:36 | XMS_ITS | Encounter Summary ---
Author Organization [facility] Address [address] [place]n: [place] [address] Care Team Providers Care Legal Practice Manager Name Role Phone Radha Cowan MD Primary Care Provider [phone]- [phone] Encounter Details Date Type Department Care Team (Late st Contact Info) Description 11/21/1999 Outpatient Historical Augusto Nicole Jr., MD [address] [place] [phone] Social History Tobacco Use Types Packs/Day Years Used Date Smoking Tobacco: Never Assessed Comments Unknown Sex and Gender Information Value Date Recorded Sex Assigned at Not on file Legal Sex Female 3:33 AM DISTANCE LEARNING UNIT LEADER Gender Identity Not on file Sexual Orientation Not on file documented as of this encounter Plan of Treatment Not on file documented as of this encounter Visit Diagnoses Not on filedocumented in this encounter Additional Health Concerns Infection Onset Date Last Indicated Resolved Time R/O COVID-19 05/16/2020 05/16/2020 05/18/2020 12:3 1 AM CDT R/O COVID-19 07/25/2020 07/25/2020 07/27/2020 5:01 AM DISTANCE LEARNING UNIT LEADER R/O COVID-19 09/30/2020 09/30/2020 09/30/2020 7:23 PM DISTANCE LEARNING UNIT LEADER documented as of this encounter Care Teams Legal Practice Manager Relationship Specialty Start Date End Date Radha Cowan MD [address] [place] [phone] PCP - General Family Practice 10/24/20 documented as of this encounter
--- OUTSIDE RECORDS SUMMARY | 2025-05-30 09:36 | XMS_ITS | Encounter Summary ---
Author Organization [facility] Address [address] [place] [address] Care Team Providers Care Pin Drafting Machine Operator Name Role Phone Radha Cowan MD Primary Care Provider +1- [phone] Encounter Details Date Type Department Care Team (Latest Contact Info) Description 02/20/1999 Outpatient Historical [facility] Corey Burkett, Augusto Tang MD [address] [place] [phone] Vaginitis and vulvovaginitis, unspecified (Primary Dx); Bipolar I disorder, most recent episode (or current) unspecified ([facility]) Social History Tobacco Use Types Packs/Day Years Used Date Smoking Tobacco: Never Assessed Comments Unknown Sex and Gender Information Value Date Recorded Sex Assigned at Not on file Legal Sex Female 3:33 AM PHOTOGRAPHIC LABORATORY SUPERVISOR Gender Identity Not on file Sexual [...] R/O COVID-19 07/25/2020 07/25/2020 07/27/2020 5:01 AM PHOTOGRAPHIC LABORATORY SUPERVISOR R/O COVID-19 09/30/2020 09/30/202009/3009/30/2020 7:23 PM PHOTOGRAPHIC LABORATORY SUPERVISOR documented as of this encounter Care Teams Pin Drafting Machine Operator Relationship Specialty Start Date End Date Radha Cowan MD [address] [phone] PCP - General Family Practice 10/24/20 documented as of this encounter
--- OUTSIDE RECORDS SUMMARY | 2025-05-30 09:36 | XMS_ITS | Encounter Summary ---
Author Organization [facility] Address [address] Charlesn: [place] [address] Care Team Providers Care Event Marketing Assistant Name Role Phone Radha Cowan MD Primary Care Provider +1- [phone] Encounter Details Date Type Department Care Team (Late st Contact Info) Description 06/10/2001 Outpatient Historical Augusto Nicole Jr., MD [address] [place] [phone] Social History Tobacco Use Types Packs/Day Years Used Date Smoking Tobacco: Never Assessed Comments Unknown Sex and Gender Information Value Date Recorded Sex Assigned at Not on file Legal Sex Female 3:33 AM BURR BENCH OPERATOR Gender Identity Not on file Sexual Orientation Not on file documented as of this encounter Plan of Treatment Not on file documented as of this encounter Visit Diagnoses Not on filedocumented in this encounter Additional Health Concerns Infection Onset Date Last Indicated Resolved Time R/O COVID-19 05/16/2020 05/16/2020 05/18/2020 12:3 1 AM CDT R/O COVID-19 07/25/2020 07/25/2020 07/27/2020 5:01 AM BURR BENCH OPERATOR R/O COVID-19 09/30/2020 09/30/2020 09/30/2020 7:23 PM BURR BENCH OPERATOR documented as of this encounter Care Teams Event Marketing Assistant Relationship Specialty Start Date End Date Radha Cowan MD [address] [place] [phone] PCP - General Family Practice 10/24/20 documented as of this encounter
--- OUTSIDE RECORDS SUMMARY | 2025-05-30 09:36 | XMS_ITS | Encounter Summary ---
Author Organization [facility] Address [address] [place] [address] Care Team Providers Care Bag Loader Name Role Phone Radha Cowan MD Primary Care Provider Encounter Details Date Type Department Care Team (Latest Contact Info) Description 06/13/1999 Outpatient Historical [facility] Betito Fields NO ADDRESS ON FILE Chest pain, unspecified (Primary Dx) Social History Tobacco Use Types Packs/Day Years Used Date Smoking Tobacco: Never Assessed Comments Unknown Sex and Gender Information Value Date Recorded Sex Assigned at Not on file Legal Sex Female 3:33 AM PARKING LOT SUPERVISOR Gender Identity Not on file Sexual [...] R/O COVID-19 07/25/2020 07/25/2020 07/27/2020 5:01 AM PARKING LOT SUPERVISOR R/O COVID-19 09/30/2020 09/30/2020 09/30/2020 7:23 PM PARKING LOT SUPERVISOR documented as of this encounter Care Teams Bag Loader Relationship Specialty Start Date End Date Radha Cowan MD [address] [place] [phone] PCP - General Family Practice 10/24/20 documented as of this encounter
--- OUTSIDE RECORDS SUMMARY | 2025-05-30 09:36 | XMS_ITS | Encounter Summary ---
Author Organization [facility] Address [address] [place] [address] Care Team Providers Care Swaging Machine Operator Name Role Phone Radha Cowan MD Primary Care Provider Encounter Details Date Type Department Care Team (Latest Contact Info) Description 12/30/2000 Outpatient Historical [facility] Augusto Nicole Jr., MD [address] [place] [phone] Elevated sediment rate (Primary Dx); Osteoarthrosis, unspecified whether generalized or localized, unspecified site Social History Tobacco Use Types Packs/Day Years Used Date Smoking Tobacco: Never Assessed Comments Unknown Sex and Gender Information Value Date Recorded Sex Assigned at Not on file Legal Sex Female 3:33 AM SUPERVISOR FINE GRADING Gender Identity Not on file Sexual Orientation [...] R/O COVID-19 07/25/2020 07/25/2020 07/27/2020 5:01 AM SUPERVISOR FINE GRADING R/O COVID-19 09/30/2020 09/30/2020 09/30/2020 7:23 PM SUPERVISOR FINE GRADING documented as of this encounter Care Teams Swaging Machine Operator Relationship Specialty Start Date End Date Radha Cowan MD [address] [phone] PCP - General Family Practice 10/24/20 documented as of this encounter
--- OUTSIDE RECORDS SUMMARY | 2025-05-30 09:36 | XMS_ITS | Encounter Summary ---
Author Organization [facility] Address [address] Charlesn: [place] [address] Care Team Providers Care Inspector Balance Wheel Motion Name Role Phone Radha Cowan MD Primary Care Provider +1- [phone] Encounter Details Date Type Department Care Team (Late st Contact Info) Description 03/17/2000 Outpatient Historical Augusto Nicole Jr., MD [address] [place] [phone] Social History Tobacco Use Types Packs/Day Years Used Date Smoking Tobacco: Never Assessed Comments Unknown Sex and Gender Information Value Date Recorded Sex Assigned at Not on file Legal Sex Female 3:33 AM MAIL OPENER Gender Identity Not on file Sexual Orientation Not on file documented as of this encounter Plan of Treatment Not on file documented as of this encounter Visit Diagnoses Not on filedocumented in this encounter Additional Health Concerns Infection Onset Date Last Indicated Resolved Time R/O COVID-19 05/16/2020 05/16/2020 05/18/2020 12:3 1 AM CDT R/O COVID-19 07/25/2020 07/25/2020 07/27/2020 5:01 AM MAIL OPENER R/O COVID-19 09/30/2020 09/30/2020 09/30/2020 7:23 PM MAIL OPENER documented as of this encounter Care Teams Inspector Balance Wheel Motion Relationship Specialty Start Date End Date Radha Cowan MD [address] [facility] [address] [place] [phone] PCP - General Family Practice 10/24/20 documented as of this encounter
--- OUTSIDE RECORDS SUMMARY | 2025-05-30 09:36 | XMS_ITS | Encounter Summary ---
Author Organization [facility] Address [address] [place] [address] Care Team Providers Care Progressive Care Manager Name Role Phone Radha Cowan MD Primary Care Provider +1- [phone] Encounter Details Date Type Department Care Team (Latest Contact Info) Description 06/23/1999 Outpatient Historical [facility] Betito Fields NO ADDRESS ON FILE Other malaise and fatigue (Primary Dx); Elevated blood pressure reading without diagnosis of hypertension; Other diseases of trachea and bronchus, not elsewhere classified Social History Tobacco Use Types Packs/Day Years Used Date Smoking Tobacco: Never Assessed Comments Unknown Sex and Gender Information Value Date Recorded Sex Assigned at Not on file Legal Sex Female 3:33 AM COMMUNITY RELATIONS ADVISOR Gender Identity Not on file Sexual [...] R/O COVID-19 07/25/2020 07/25/2020 07/27/2020 5:01 AM COMMUNITY RELATIONS ADVISOR R/O COVID-19 09/30/2020 09/30/2020 09/30/2020 7:23 PM COMMUNITY RELATIONS ADVISOR documented as of this encounter Care Teams Progressive Care Manager Relationship Specialty Start Date End Date Radha Cowan MD [address] [address] PCP - General Family Practice 10/24/20 documented as of this encounter
--- OUTSIDE RECORDS SUMMARY | 2025-05-30 09:36 | XMS_ITS | Encounter Summary ---
Author Organization [facility] Address [address] [place] [address] Care Team Providers Care Vp Ad Sales West Name Role Phone Radha Cowan MD Primary Care Provider Encounter Details Date Type Department Care Team (Latest Contact Info) Description 04/27/2001 Outpatient Historical [facility] Augusto Nicole Jr., MD [address] [place] [phone] Chest pain, unspecified (Primary Dx); Generalized anxiety disorder Social History Tobacco Use Types Packs/Day Years Used Date Smoking Tobacco: Never Assessed Comments Unknown Sex and Gender Information Value Date Recorded Sex Assigned at Not on file Legal Sex Female 3:33 AM COMMERCIAL DRONE PILOT Gender Identity Not on file Sexual [...] R/O COVID-19 07/25/2020 07/25/2020 07/27/2020 5:01 AM COMMERCIAL DRONE PILOT R/O COVID-19 09/30/2020 09/30/2020 09/30/2020 7:23 PM COMMERCIAL DRONE PILOT documented as of this encounter Care Teams Vp Ad Sales West Relationship Specialty Start Date End Date Radha Cowan MD [address] [facility] [address] [place] [address] PCP - General Family Practice 10/24/20 documented as of this encounter
--- OUTSIDE RECORDS SUMMARY | 2025-05-30 09:36 | XMS_ITS | Encounter Summary ---
Author Organization [facility] Address [address] [place] [address] Care Team Providers Care Assistant Name Role Phone Radha Cowan MD Primary Care Provider Encounter Details Date Type Department Care Team (Latest Contact Info) Description 12/23/1998 Outpatient Historical [facility] Augusto Nicole Jr., MD [address] [place] [phone] Dysthymic disorder (Primary Dx); Abdominal pain, unspecified site Social History Tobacco Use Types Packs/Day Years Used Date Smoking Tobacco: Never Assessed Comments Unknown Sex and Gender Information Value Date Recorded Sex Assigned at Not on file Legal Sex Female 3:33 AM SUPERVISOR FUR FLOOR WORKER Gender Identity Not on file Sexual [...] COVID-19 07/25/2020 07/25/2020 07/27/2020 5:01 AM SUPERVISOR FUR FLOOR WORKER R/O COVID-19 09/30/2020 09/30/2020 09/30/2020 7:23 PM SUPERVISOR FUR FLOOR WORKER documented as of this encounter Care Teams Assistant Relationship Specialty Start Date End Date Radha Cowan MD [address] [address] PCP - General Family Practice 10/24/20 documented as of this encounter
--- OUTSIDE RECORDS SUMMARY | 2025-05-30 09:36 | XMS_ITS | Encounter Summary ---
Author Organization [facility] Address [address] [place] [address] Care Team Providers Care Emergency Room Registered Nurse Name Role Phone Radha Cowan MD Primary Care Provider +1- [phone] Encounter Details Date Type Department Care Team (Latest Contact Info) Description 03/24/2001 Outpatient Historical [facility] Corey Burkett, Augusto Tang MD [facility] [place] [address] Hip, thigh, leg, and ankle, [...] on file Legal Sex Female 3:33 AM WHARF TALLY CLERK Gender Identity Not on file Sexual [...] R/O COVID-19 07/25/2020 07/25/2020 07/27/2020 5:01 AM WHARF TALLY CLERK R/O COVID-19 09/30/2020 09/30/2020 09/30/2020 7:23 PM WHARF TALLY CLERK documented as of this encounter Care Teams Emergency Room Registered Nurse Relationship Specialty Start Date End Date Radha Cowan MD [address] [phone] PCP - General Family Practice 10/24/20 documented as of this encounter
--- OUTSIDE RECORDS SUMMARY | 2025-05-30 09:36 | XMS_ITS | Encounter Summary ---
Author Organization [facility] Address [address] [place] [address] Care Team Providers Care Supervisor Gelatin Plant Name Role Phone Radha Cowan MD Primary Care Provider Encounter Details Date Type Department Care Team (Latest Contact Info) Description 06/21/2018 Ancillary Orders [facility] Admitting [address] [place] [address] Raad Bhatt, ARTIFICIAL FLOWERS DYER [address] [place] [phone] Osteoarthritis of both knees, unspecified osteoarthritis type Social History Tobacco Use Types Packs/Day Years Used Date Smoking Tobacco: Every Day Cigarettes 1 20 Smokeless Tobacco: Never Alcohol Use Standard Drinks/Week Comments Yes 0 (1 standard drink = 0.6 oz pur e alcohol) occasional Comments No Sex and Gender Information Value Date Recorded Sex Assigned at Not on file Legal Sex Female 3:33 AM TRANSFER AND LINE UP WORKER Gender Identity Not on file Sexual [...] R/O COVID-19 07/25/2020 07/25/2020 07/27/2020 5:01 AM TRANSFER AND LINE UP WORKER R/O COVID-19 09/30/2020 09/30/2020 09/30/2020 7:23 PM TRANSFER AND LINE UP WORKER documented as of this encounter Care Teams Supervisor Gelatin Plant Relationship Specialty Start Date End Date Radha Cowan MD [address] [phone] PCP - General Family Practice 10/24/20 documented as of this encounter
--- OUTSIDE RECORDS SUMMARY | 2025-05-30 09:36 | XMS_ITS | Encounter Summary ---
Author Organization [facility] Address [address] Charlesn: [place] [address] Care Team Providers Care Charge Master Specialist Name Role Phone Radha Cowan MD Primary Care Provider +[phone]- [phone] Encounter Details Date Type Department Care Team (Late st Contact Info) Description 01/12/2001 Outpatient Historical Augusto Nicole Jr., MD [address] [place] [phone] Social History Tobacco Use Types Packs/Day Years Used Date Smoking Tobacco: Never Assessed Comments Unknown Sex and Gender Information Value Date Recorded Sex Assigned at Not on file Legal Sex Female 3:33 AM PEDIATRIC DERMATOLOGIST Gender Identity Not on file Sexual Orientation Not on file documented as of this encounter Plan of Treatment Not on file documented as of this encounter Visit Diagnoses Not on filedocumented in this encounter Additional Health Concerns Infection Onset Date Last Indicated Resolved Time R/O COVID-19 05/16/2020 05/16/2020 05/18/2020 12:3 1 AM CDT R/O COVID-19 07/25/2020 07/25/2020 07/27/2020 5:01 AM PEDIATRIC DERMATOLOGIST R/O COVID-19 09/30/2020 09/30/2020 09/30/2020 7:23 PM PEDIATRIC DERMATOLOGIST documented as of this encounter Care Teams Charge Master Specialist Relationship Specialty Start Date End Date Radha Cowan MD [address] [facility] [address] [place] [address] PCP - General Family Practice 10/24/20 documented as of this encounter
--- OUTSIDE RECORDS SUMMARY | 2025-05-30 09:36 | XMS_ITS | Encounter Summary ---
Author Organization [facility] Address [address] [place] [address] Care Team Providers Care Speech Scientist Name Role Phone Radha Cowan MD Primary Care Provider Encounter Details Date Type Department Care Team (Latest Contact Info) Description 05/29/1999 Outpatient Historical [facility] Augusto Nicole Jr., MD [address] [place] [phone] Other seborrheic keratosis (Primary Dx) Social History Tobacco Use Types Packs/Day Years Used Date Smoking Tobacco: Never Assessed Comments Unknown Sex and Gender Information Value Date Recorded Sex Assigned at Not on file Legal Sex Female 3:33 AM DISTRIBUTION DISPATCHER Gender Identity Not on file Sexual Orientation Not on file documented as of this encounter Plan of Treatment Not on file documented as of this encounter Visit Diagnoses Diagnosis Other seborrheic keratosis- Primary documented in this encounter Additional Health Concerns Infection Onset Date Last Indicated Resolved Time R/O COVID-19 05/16/2020 05/16/2020 05/18/2020 12:3 1 AM CDT R/O COVID-19 07/25/2020 07/25/2020 07/27/2020 5:01 AM DISTRIBUTION DISPATCHER R/O COVID-19 09/30/2020 09/30/2020 09/30/2020 7:23 PM DISTRIBUTION DISPATCHER documented as of this encounter Care Teams Speech Scientist Relationship Specialty Start Date End Date Radha Cowan MD [address] [facility] [address] [place] [address] PCP - General Family Practice 10/24/20 documented as of this encounter
--- OUTSIDE RECORDS SUMMARY | 2025-05-30 09:36 | XMS_ITS | Encounter Summary ---
Author Organization [facility] Address [address] [place] [address] Care Team Providers Care Device Processing Engineer Name Role Phone Radha Cowan MD Primary Care Provider +1- [phone] Encounter Details Date Type Department Care Team (Latest Contact Info) Description 12/20/2000 Outpatient Historical [facility] Augusto Nicole Jr., MD [address] [place] [phone] Pure hypercholesterolem (Primary Dx) Social History Tobacco Use Types Packs/Day Years Used Date Smoking Tobacco: Never Assessed Comments Unknown Sex and Gender Information Value Date Recorded Sex Assigned at Not on file Legal Sex Female 3:33 AM CHEMICAL PLANT OPERATOR Gender Identity Not on file [...] R/O COVID-19 07/25/2020 07/25/2020 07/27/2020 5:01 AM CHEMICAL PLANT OPERATOR R/O COVID-19 09/30/2020 09/30/2020 09/30/2020 7:23 PM CHEMICAL PLANT OPERATOR documented as of this encounter Care Teams Device Processing Engineer Relationship Specialty Start Date End Date Radha Cowan MD [address] [place] [address] PCP - General Family Practice 10/24/20 documented as of this encounter
--- OUTSIDE RECORDS SUMMARY | 2025-05-30 09:36 | XMS_ITS | Encounter Summary ---
Author Organization [facility] Address [address] [place] [address] Care Team Providers Care Medical Illustrator Name Role Phone Radha Cowan MD Primary Care Provider +1- [phone] Reason for Referral * Radiology Services (Routine) - Closed Specialty Diagnoses / Procedures Referred By Contac t Referred To Contact Radiology Diagnoses Lower extremity pain, right Procedures US VENOUS DOPPLER LEG RIGHT Raad Bhatt FNP [address] [place] [address] Phone: tel: fax: [facility] [address] [facility] [address] [place] [address] Phone: tel: fax: Referral ID Status Reason Start Date Expiration Date V isits Requested Visits Authorized [id number] Closed [facility] CTS to Schedule (SGF) 06/17/2018 07/18/2019 1 1 Encounter Details Date Type Department Care Team (Latest Contact Info) Description 06/17/2018 Ancillary Orders [facility] Centralized Scheduling [address] [facility] [address] [place] [address] Raad Bhatt FNP [address] [place] [address] Lower extremity pain, right Social History Tobacco Use Types Packs/Day Years Used Date Smoking Tobacco: Every Day Cigarettes 1 20 Smokeless Tobacco: Never Alcohol Use Standard Drinks/Week Comments Yes 0 (1 standard drink = 0.6 oz pur e alcohol) occasional Comments No Sex and Gender Information Value Date Recorded Sex Assigned at Not on file Legal Sex Female 3:33 AM BODY AND FENDER WORKER Gender Identity Not on file Sexual [...] PM CDT Narrative 06/20/2018 10:03 PM CDT [facility] Radiology Services - Noninvasive Vascular [address] [place] [address] [address] Noninvasive Vascular Lab Venous Exam Unilateral Lower Extremity Duplex Patient: Marli Eli Study ID: US VENOUS DOPPLE Gender: F : 1955 Age: 63 Room: Height: Weight: BSA: Pt status: Outpatient Study Date: 06/17/2018 Study Time: 02:07:05 PM BSA: Ordering: Raad Bhatt Interpreting:Christo Hanson MD, RPVI Biomathematician: Henok Bailey Summary Impression: No evidence of [...] Procedure Note Christo Hanson MD - 06/20/2018 [facility] Radiology Services - Noninvasive Vascular [address] [place] [address] [address] Noninvasive Vascular Lab Venous Exam Unilateral Lower Extremity Duplex Patient: Marli Eli Study ID: US VENOUS DOPPLE Gender: F : 1955 Age: 63 Room: Height: Weight: BSA: Pt status: Outpatient Study Date: 06/17/2018 Study Time: 02:07:05 PM BSA: Ordering: Raad Bhatt Interpreting:Christo Hanson MD, RPVI Biomathematician: Henok Bailey Summary Impression: No evidence of [...] MD, RPVI Confirmed 06/20/2018 22:03 Raad Bhatt [facility] ORDERABLES Final Resul t documented in this encounter Visit Diagnoses Diagnosis Lower extremity pain, right Lower extremity pain, right documented in this encounter Additional Health Concerns Infection Onset Date Last Indicated Resolved Time R/O COVID-19 05/16/2020 05/16/2020 05/18/2020 12:3 1 AM CDT R/O COVID-19 07/25/2020 07/25/2020 07/27/2020 5:01 AM BODY AND FENDER WORKER R/O COVID-09/30/2020 09/30/2020 09/30/2020 7:23 PM BODY AND FENDER WORKER documented as of this encounter Care Teams Medical Illustrator Relationship Specialty Start Date End Date Radha Cowan MD [address] [address] PCP - General Family Practice 10/24/20 documented as of this encounter
--- OUTSIDE RECORDS SUMMARY | 2025-05-30 09:36 | XMS_ITS | Encounter Summary ---
Author Organization [facility] Address [address] [place] [address] Care Team Providers Care Wick And Base Assembler Name Role Phone Radha Cowan MD Primary Care Provider Encounter Details Date Type Department Care Team (Latest Contact Info) Description 11/19/1999 Outpatient Historical [facility] Augusto Nicole Jr., MD [address] [place] [phone] Other convulsions (Primary Dx); Leiomyoma of uterus, unspecified; Screening for malignant neoplasm of the cervix Social History Tobacco Use Types Packs/Day Years Used Date Smoking Tobacco: Never Assessed Comments Unknown Sex and Gender Information Value Date Recorded Sex Assigned at Not on file Legal Sex Female 3:33 AM CURBER Gender Identity Not on file Sexual Orientation [...] R/O COVID-19 07/25/2020 07/25/2020 07/27/2020 5:01 AM CURBER R/O COVID-19 09/30/2020 09/30/2020 09/30/2020 7:23 PM CURBER documented as of this encounter Care Teams Wick And Base Assembler Relationship Specialty Start Date End Date Radha Cowan MD [address] [phone] PCP - General Family Practice 10/24/20 documented as of this encounter
--- OUTSIDE RECORDS SUMMARY | 2025-05-30 09:36 | XMS_ITS | Encounter Summary ---
Author Organization [facility] Address [address] [place] [address] Care Team Providers Care Spray Operator Name Role Phone Radha Cowan MD Primary Care Provider Encounter Details Date Type Department Care Team (Latest Contact Info) Description 01/19/2001 Outpatient Historical [facility] Augusto Nicole Jr., MD [address] [place] [phone] Chest pain, unspecified (Primary Dx); Generalized anxiety disorder Social History Tobacco Use Types Packs/Day Years Used Date Smoking Tobacco: Never Assessed Comments Unknown Sex and Gender Information Value Date Recorded Sex Assigned at Not on file Legal Sex Female 3:33 AM WARDROBE COORDINATOR Gender Identity Not on file Sexual [...] R/O COVID-19 07/25/2020 07/25/2020 07/27/2020 5:01 AM WARDROBE COORDINATOR R/O COVID-19 09/30/2020 09/30/2020 09/30/2020 7:23 PM WARDROBE COORDINATOR documented as of this encounter Care Teams Spray Operator Relationship Specialty Start Date End Date Radha Cowan MD [address] [facility] [address] [place] [address] PCP - General Family Practice 10/24/20 documented as of this encounter
--- OUTSIDE RECORDS SUMMARY | 2025-05-30 09:36 | XMS_ITS | Encounter Summary ---
Author Organization [facility] Address [address] [place] [address] Care Team Providers Care Tag Maker Name Role Phone Radha Cowan MD Primary Care Provider [phone] Encounter Details Date Type Department Care Team (Latest Contact Info) Description 06/26/1999 Outpatient Historical [facility] Corey Burkett, Augusto Tang MD [facility] [place] [address] Esophageal reflux (Primary Dx); Headache(784.0); Insomnia with sleep apnea, unspecified; Need for prophylactic vaccination against Streptococcus pneumoniae (pneumococcus) Social History Tobacco Use Types Packs/Day Years Used Date Smoking Tobacco: Never Assessed Comments Unknown Sex and Gender Information Value Date Recorded Sex Assigned at Not on file Legal Sex Female 3:33 AM CONSULTANT TECHNOLOGY Gender Identity Not on file Sexual Orientation [...] R/O COVID-19 07/25/2020 07/25/2020 07/27/2020 5:01 AM CONSULTANT TECHNOLOGY R/O COVID-19 09/30/2020 09/30/2020 09/30/2020 7:23 PM CONSULTANT TECHNOLOGY documented as of this encounter Care Teams Tag Maker Relationship Specialty Start Date End Date Radha Cowan MD [address] [address] PCP - General Family Practice 10/24/20 documented as of this encounter
--- OUTSIDE RECORDS SUMMARY | 2025-05-30 09:36 | XMS_ITS | Encounter Summary ---
Author Organization [facility] Address [address]: [place] [address] Care Team Providers Care Lockstitch Sleeve Maker Name Role Phone Radha Cowan MD Primary Care Provider [phone] Encounter Details Date Type Department Care Team (Late st Contact Info) Description 12/20/2000 Outpatient Historical Augusto Nicole Jr., MD [address] [place] [id number] Social History Tobacco Use Types Packs/Day Years Used Date Smoking Tobacco: Never Assessed Comments Unknown Sex and Gender Information Value Date Recorded Sex Assigned at Not on file Legal Sex Female 3:33 AM APPLICATION DEVELOPMENT DIRECTOR Gender Identity Not on file Sexual Orientation Not on file documented as of this encounter Plan of Treatment Not on file documented as of this encounter Visit Diagnoses Not on filedocumented in this encounter Additional Health Concerns Infection Onset Date Last Indicated Resolved Time R/O COVID-19 05/16/2020 05/16/2020 05/18/2020 12:3 1 AM CDT R/O COVID-19 07/25/2020 07/25/2020 07/27/2020 5:01 AM APPLICATION DEVELOPMENT DIRECTOR R/O COVID-19 09/30/2020 09/30/2020 09/30/2020 7:23 PM APPLICATION DEVELOPMENT DIRECTOR documented as of this encounter Care Teams Lockstitch Sleeve Maker Relationship Specialty Start Date End Date Radha Cowan MD [address] [place] [phone] PCP - General Family Practice 10/24/20 documented as of this encounter
--- OUTSIDE RECORDS SUMMARY | 2025-05-30 09:36 | XMS_ITS | Encounter Summary ---
Author Organization [facility] Address [address] [place] [address] Care Team Providers Care Outpatient Receptionist Name Role Phone Radha Cowan MD Primary Care Provider Encounter Details Date Type Department Care Team (Latest Contact Info) Description 01/12/2001 Outpatient Historical [facility] Augusto Nicole Jr., MD [address] [place] [phone] Pure hypercholesterolem (Primary Dx); Chest pain, unspecified; Screening examination for pulmonary tuberculosis Social History Tobacco Use Types Packs/Day Years Used Date Smoking Tobacco: Never Assessed Comments Unknown Sex and Gender Information Value Date Recorded Sex Assigned at Not on file Legal Sex Female 3:33 AM YARDAGE CONTROL CLERK Gender Identity Not on file Sexual [...] R/O COVID-19 07/25/2020 07/25/2020 07/27/2020 5:01 AM YARDAGE CONTROL CLERK R/O COVID-19 09/30/2020 09/30/2020 09/30/2020 7:23 PM YARDAGE CONTROL CLERK documented as of this encounter Care Teams Outpatient Receptionist Relationship Specialty Start Date End Date Radha Cowan MD [address] [phone] PCP - General Family Practice 10/24/20 documented as of this encounter
--- OUTSIDE RECORDS SUMMARY | 2025-05-30 09:36 | XMS_ITS | Encounter Summary ---
Author Organization [facility] Address [address] [place] [address] Care Team Providers Care Supervisor Coremaker Name Role Phone Radha Cowan MD Primary Care Provider Encounter Details Date Type Department Care Team (Latest Contact Info) Description 01/06/1999 Outpatient Historical [facility] Augusto Nicole Jr., MD [address] [place] [phone] Insomnia, unspecified (Primary Dx); Depressive disorder, not elsewhere classified Social History Tobacco Use Types Packs/Day Years Used Date Smoking Tobacco: Never Assessed Comments Unknown Sex and Gender Information Value Date Recorded Sex Assigned at Not on file Legal Sex Female 3:33 AM SENIOR INSTRUCTIONAL DESIGNER Gender Identity Not on file Sexual Orientation [...] R/O COVID-19 07/25/2020 07/25/2020 07/27/2020 5:01 AM SENIOR INSTRUCTIONAL DESIGNER R/O COVID-19 09/30/2020 09/30/2020 09/30/2020 7:23 PM SENIOR INSTRUCTIONAL DESIGNER documented as of this encounter Care Teams Supervisor Coremaker Relationship Specialty Start Date End Date Radha Cowan MD [address] [phone] PCP - General Family Practice 10/24/20 documented as of this encounter
--- OUTSIDE RECORDS SUMMARY | 2025-05-30 09:36 | XMS_ITS | Encounter Summary ---
Author Organization [facility] Address [address] [place] [address] Care Team Providers Care Metal Fabricating Inspector Name Role Phone Radha Cowan MD Primary Care Provider Encounter Details Date Type Department Care Team (Latest Contact Info) Description 03/15/2002 Outpatient Historical [facility] Corey Burkett, Augusto Tang MD [address] [place] [phone] DIABETES UNCOMPL ADULT-TYPE II (CMS/HCC) (Primary Dx); ABNORMAL URINE FINDINGS NEC; HEMATURIA; AFTERCARE [facility] USE MEDICATN Social History Tobacco Use Types Packs/Day Years Used Date Smoking Tobacco: Never Assessed Comments Unknown Sex and Gender Information Value Date Recorded Sex Assigned at Not on file Legal Sex Female 3:33 AM ANIMAL PHYSIOLOGY TEACHER Gender Identity Not on file Sexual [...] R/O COVID-19 07/25/2020 07/25/2020 07/27/2020 5:01 AM ANIMAL PHYSIOLOGY TEACHER R/O COVID-19 09/30/2020 09/30/2020 09/30/2020 7:23 PM ANIMAL PHYSIOLOGY TEACHER documented as of this encounter Care Teams Metal Fabricating Inspector Relationship Specialty Start Date End Date Radha Cowan MD [address] [phone] PCP - General Family Practice 10/24/20 documented as of this encounter
--- OUTSIDE RECORDS SUMMARY | 2025-05-30 09:36 | XMS_ITS | Encounter Summary ---
Author Organization [facility] Address [address] [place] [address] Care Team Providers Care Career Services Assistant Name Role Phone Radha Cowan MD Primary Care Provider [phone] Encounter Details Date Type Department Care Team (Latest Contact Info) Description 06/10/2001 Outpatient Historical [facility] Augusto Nicole Jr., MD [address] [place] [phone] Chronic airway obstruction, not elsewhere classified (CMS/HCC) (Primary Dx); Pure hypercholesterolem Social History Tobacco Use Types Packs/Day Years Used Date Smoking Tobacco: Never Assessed Comments Unknown Sex and Gender Information Value Date Recorded Sex Assigned at Not on file Legal Sex Female 3:33 AM SUPERVISING ARCHITECT Gender Identity Not on file Sexual Orientation [...] R/O COVID-19 07/25/2020 07/25/2020 07/27/2020 5:01 AM SUPERVISING ARCHITECT R/O COVID-19 09/30/2020 09/30/2020 09/30/2020 7:23 PM SUPERVISING ARCHITECT documented as of this encounter Care Teams Career Services Assistant Relationship Specialty Start Date End Date Radha Cowan MD [address] [phone] PCP - General Family Practice 10/24/20 documented as of this encounter
--- OUTSIDE RECORDS SUMMARY | 2025-05-30 09:36 | XMS_ITS | Encounter Summary ---
Author Organization [facility] Address [address] [place] [address] Care Team Providers Care Corn Cooker Name Role Phone Radha Cowan MD Primary Care Provider Encounter Details Date Type Department Care Team (Latest Contact Info) Description 04/17/1999 Outpatient Historical [facility] Augusto Nicole Jr., MD [address] [place] [phone] Chest pain, unspecified (Primary Dx); Edema; Major depressive disorder, single episode, unspecified Social History Tobacco Use Types Packs/Day Years Used Date Smoking Tobacco: Never Assessed Comments Unknown Sex and Gender Information Value Date Recorded Sex Assigned at Not on file Legal Sex Female 3:33 AM MOTHER TESTER Gender Identity Not on file Sexual [...] R/O COVID-19 07/25/2020 07/25/2020 07/27/2020 5:01 AM MOTHER TESTER R/O COVID-19 09/30/2020 09/30/2020 09/30/2020 7:23 PM MOTHER TESTER documented as of this encounter Care Teams Corn Cooker Relationship Specialty Start Date End Date Radha Cowan MD [address] [phone] PCP - General Family Practice 10/24/20 documented as of this encounter
--- OUTSIDE RECORDS SUMMARY | 2025-05-30 09:36 | XMS_ITS | Encounter Summary ---
Author Organization [facility] Address [address] [place] [address] Care Team Providers Care Ham Doctor Name Role Phone Radha Cowan MD Primary Care Provider Encounter Details Date Type Department Care Team (Latest Contact Info) Description 03/15/2000 Outpatient Historical [facility] Corey Burkett, Augusto Tang MD [address] [place] [phone] Unspecified urinary incontinence (Primary Dx); Screening for malignant neoplasm of the cervix; Unspecified hemorrhoids without mention of complication; Screening for malignant neoplasm of the rectum Social History Tobacco Use Types Packs/Day Years Used Date Smoking Tobacco: Never Assessed Comments Unknown Sex and Gender Information Value Date Recorded Sex Assigned at Not on file Legal Sex Female 3:33 AM TYING IN MACHINE OPERATOR Gender Identity Not on file [...] R/O COVID-19 07/25/2020 07/25/2020 07/27/2020 5:01 AM TYING IN MACHINE OPERATOR R/O COVID-19 09/30/2020 09/30/2020 09/30/2020 7:23 PM TYING IN MACHINE OPERATOR documented as of this encounter Care Teams Ham Doctor Relationship Specialty Start Date End Date Radha Cowan MD [address] [phone] PCP - General Family Practice 10/24/20 documented as of this encounter
--- OUTSIDE RECORDS SUMMARY | 2025-05-30 09:36 | XMS_ITS | Encounter Summary ---
Author Organization [facility] Address [address] [place] [address] Care Team Providers Care Dehydrator Operator Name Role Phone Radha Cowan MD Primary Care Provider Encounter Details Date Type Department Care Team (Latest Contact Info) Description 03/22/2000 Outpatient Historical [facility] Augusto Nicole Jr., MD [address] [place] [phone] Other follow-up examination(V67.59) (Primary Dx); Unspecified hemorrhoids without mention of complication Social History Tobacco Use Types Packs/Day Years Used Date Smoking Tobacco: Never Assessed Comments Unknown Sex and Gender Information Value Date Recorded Sex Assigned at Not on file Legal Sex Female 3:33 AM CHIEF OF STAFF Gender Identity Not on file Sexual Orientation [...] R/O COVID-19 07/25/2020 07/25/2020 07/27/2020 5:01 AM CHIEF OF STAFF R/O COVID-19 09/30/2020 09/30/2020 09/30/2020 7:23 PM CHIEF OF STAFF documented as of this encounter Care Teams Dehydrator Operator Relationship Specialty Start Date End Date Radha Cowan MD [address] [phone] PCP - General Family Practice 10/24/20 documented as of this encounter
--- OUTSIDE RECORDS SUMMARY | 2025-05-30 09:36 | XMS_ITS | Encounter Summary ---
Author Organization [facility] Address [address] [place] [address] Care Team Providers Care Dielectric Press Operator Name Role Phone Radha Cowan MD Primary Care Provider Encounter Details Date Type Department Care Team (Latest Contact Info) Description 07/10/1998 Outpatient Historical [facility] Augusto Nicole Jr., MD [facility] [place] [address] Headache(784.0) (Primary Dx); Depressive disorder, not elsewhere classified Social History Tobacco Use Types Packs/Day Years Used Date Smoking Tobacco: Never Assessed Comments Unknown Sex and Gender Information Value Date Recorded Sex Assigned at Not on file Legal Sex Female 3:33 AM IT SUPPORT ENGINEER Gender Identity Not on file Sexual [...] R/O COVID-19 07/25/2020 07/25/2020 07/27/2020 5:01 AM IT SUPPORT ENGINEER R/O COVID-19 09/30/2020 09/30/2020 09/30/2020 7:23 PM IT SUPPORT ENGINEER documented as of this encounter Care Teams Dielectric Press Operator Relationship Specialty Start Date End Date Radha Cowan MD [address] [phone] PCP - General Family Practice 10/24/20 documented as of this encounter
--- OUTSIDE RECORDS SUMMARY | 2025-05-30 09:36 | XMS_ITS | Encounter Summary ---
Author Organization [facility] Address [address] [place] [address] Care Team Providers Care Thread Marker Name Role Phone Radha Cowan MD Primary Care Provider Encounter Details Date Type Department Care Team (Latest Contact Info) Description 08/28/1998 Outpatient Historical [facility] Augusto Nicole Jr., MD [address] [place] [phone] Attention to dressings and sutures (Primary Dx); Dermatophytosis of foot Social History Tobacco Use Types Packs/Day Years Used Date Smoking Tobacco: Never Assessed Comments Unknown Sex and Gender Information Value Date Recorded Sex Assigned at Not on file Legal Sex Female 3:33 AM FIBER OPTIC ASSEMBLER Gender Identity Not on file Sexual [...] R/O COVID-19 07/25/2020 07/25/2020 07/27/2020 5:01 AM FIBER OPTIC ASSEMBLER R/O COVID-19 09/30/2020 09/30/2020 09/30/2020 7:23 PM FIBER OPTIC ASSEMBLER documented as of this encounter Care Teams Thread Marker Relationship Specialty Start Date End Date Radha Cowan MD [address] [phone] PCP - General Family Practice 10/24/20 documented as of this encounter
--- OUTSIDE RECORDS SUMMARY | 2025-05-30 09:36 | XMS_ITS | Encounter Summary ---
Author Organization [facility] Address [address] [place] [address] Care Team Providers Care Billboard Erector Name Role Phone Radha Cowan MD Primary Care Provider Encounter Details Date Type Department Care Team (Latest Contact Info) Description 12/16/2000 Outpatient Historical [facility] Augusto Nicole Jr., MD [address] [place] [phone] Headache(784.0) (Primary Dx); Mitral valve disorder Social History Tobacco Use Types Packs/Day Years Used Date Smoking Tobacco: Never Assessed Comments Unknown Sex and Gender Information Value Date Recorded Sex Assigned at Not on file Legal Sex Female 3:33 AM INVESTIGATIVE SHOPPER Gender Identity Not on file Sexual Orientation [...] R/O COVID-19 07/25/2020 07/25/2020 07/27/2020 5:01 AM INVESTIGATIVE SHOPPER R/O COVID-19 09/30/2020 09/30/2020 09/30/2020 7:23 PM INVESTIGATIVE SHOPPER documented as of this encounter Care Teams Billboard Erector Relationship Specialty Start Date End Date Radha Cowan MD [address] [phone] PCP - General Family Practice 10/24/20 documented as of this encounter
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
--- OUTSIDE RECORDS SUMMARY | 2025-05-30 09:36 | XMS_ITS | Encounter Summary ---
Author Organization [facility] Address [address] [place] [address] Care Team Providers Care Supervisor [employer] Name Role Phone Radha Cowan MD Primary Care Provider Encounter Details Date Type Department Care Team (Latest Contact Info) Description 11/28/1998 Outpatient Historical [facility] Augusto Nicole Jr., MD [address] [place] [address] Unspecified essential hypertension (Primary Dx); Unspecified thrombosed hemorrhoids; Obesity, unspecified Social History Tobacco Use Types Packs/Day Years Used Date Smoking Tobacco: Never Assessed Comments Unknown Sex and Gender Information Value Date Recorded Sex Assigned at Not on file Legal Sex Female 3:33 AM ART DEPARTMENT HEAD Gender Identity Not on file Sexual [...] R/O COVID-19 07/25/2020 07/25/2020 07/27/2020 5:01 AM ART DEPARTMENT HEAD R/O COVID-19 09/30/2020 09/30/2020 09/30/2020 7:23 PM ART DEPARTMENT HEAD documented as of this encounter Care Teams Supervisor [employer] Relationship Specialty Start Date End Date Radha Cowan MD [address] [phone] PCP - General Family Practice 10/24/20 documented as of this encounter
--- OUTSIDE RECORDS SUMMARY | 2025-05-30 09:36 | XMS_ITS | Encounter Summary ---
Author Organization [facility] Address [address] [place] [address] Care Team Providers Care Geriatric Nurse Assistant Name Role Phone Radha Cowan MD Primary Care Provider Encounter Details Date Type Department Care Team (Latest Contact Info) Description 06/21/2018 Ancillary Orders [facility] Admitting [address] [place] [address] Raad Bhatt, SERVICE WORKER HELPER [address] [place] [phone] Osteoarthritis of both knees, unspecified osteoarthritis type Social History Tobacco Use Types Packs/Day Years Used Date Smoking Tobacco: Every Day Cigarettes 1 20 Smokeless Tobacco: Never Alcohol Use Standard Drinks/Week Comments Yes 0 (1 standard drink = 0.6 oz pur e alcohol) occasional Comments No Sex and Gender Information Value Date Recorded Sex Assigned at Not on file Legal Sex Female 3:33 AM STRIKE OFF MACHINE OPERATOR Gender Identity Not on file [...] medial tibial femoral compartments bilaterally. Raad Bhatt SERVICE WORKER HELPER DIAGNOSTIC IMAGING ORDERABL ES Final Result documented in this encounter Visit Diagnoses Diagnosis Osteoarthritis of both knees, unspecified osteoarthritis type Osteoarthritis of both knees, unspecified osteoarthritis type documented in this encounter Additional Health Concerns Infection Onset Date Last Indicated Resolved Time R/O COVID-19 05/16/2020 05/16/2020 05/18/2020 12:3 1 AM CDT R/O COVID-19 07/25/2020 07/25/2020 07/27/2020 5:01 AM STRIKE OFF MACHINE OPERATOR R/O COVID-19 09/30/2020 09/30/2020 09/30/2020 7:23 PM STRIKE OFF MACHINE OPERATOR documented as of this encounter Care Teams Geriatric Nurse Assistant Relationship Specialty Start Date End Date Radha Cowan MD [address] [address] PCP - General Family Practice 10/24/20 documented as of this encounter
--- OUTSIDE RECORDS SUMMARY | 2025-05-30 09:36 | XMS_ITS | Encounter Summary ---
Author Organization [facility] Address [address] [place] [address] Care Team Providers Care Ventilation Mechanic Name Role Phone Radha Cowan MD Primary Care Provider [phone] Encounter Details Date Type Department Care Team (Latest Contact Info) Description 10/15/2017 Ancillary Orders [facility] Admitting [address] [place] [address] Raad Bhatt, COUNSELOR MARRIAGE AND FAMILY [address] [place] [address] Osteoarthritis of both knees, unspecified [...] on file Legal Sex Female 3:33 AM CREDIT VERIFIER Gender Identity Not on file Sexual Orientation Not on file Occupation Industry Job Start Date Job End Date Not on file Not on file Not on file Not on file documented as of this encounter Plan of Treatment Not on file documented as of this encounter Results * XR KNEE 3 VW BILAT (10/15/2017 11:56 AM CREDIT VERIFIER) Anatomical Region Laterality Modality Lower Extremity Computed Radiogr aphy 10/15/2017 11:5 6 AM CREDIT VERIFIER Impressions 10/15/2017 9:02 PM CREDIT VERIFIER IMPRESSION: Mild degenerative changes. [id number] Narrative 10/15/2017 9:02 PM CREDIT VERIFIER Exam: XR KNEE 3 VW BILAT Date/Time [...] tissues appear appropriate. IMPRESSION: Mild degenerative changes. [id number] Raad Bhatt COUNSELOR MARRIAGE AND FAMILY DIAGNOSTIC IMAGING ORDERABL ES Final Result documented in this encounter Visit Diagnoses Diagnosis Osteoarthritis of both knees, unspecified osteoarthritis type Osteoarthritis of both knees, unspecified osteoarthritis type documented in this encounter Additional Health Concerns Infection Onset Date Last Indicated Resolved Time R/O COVID-19 05/16/2020 05/16/2020 05/18/2020 12:3 1 AM CDT R/O COVID-19 07/25/2020 07/25/2020 07/27/2020 5:01 AM CREDIT VERIFIER R/O COVID-19 09/30/2020 09/30/2020 09/30/2020 7:23 PM CREDIT VERIFIER documented as of this encounter Care Teams Ventilation Mechanic Relationship Specialty Start Date End Date Radha Cowan MD [address] [address] PCP - General Family Practice 10/24/20 documented as of this encounter
--- OUTSIDE RECORDS SUMMARY | 2025-05-30 09:36 | XMS_ITS | Encounter Summary ---
Author Organization [facility] Address [address] [place] [address] Care Team Providers Care Closet Organizer Name Role Phone Radha Cowan MD Primary Care Provider Encounter Details Date Type Department Care Team (Latest Contact Info) Description 02/18/2001 Outpatient Historical [facility] Augusto Nicole Jr., MD [address] [place] [phone] Myalgia and myositis, unspecified (Primary Dx); Depressive disorder, not elsewhere classified Social History Tobacco Use Types Packs/Day Years Used Date Smoking Tobacco: Never Assessed Comments Unknown Sex and Gender Information Value Date Recorded Sex Assigned at Not on file Legal Sex Female 3:33 AM SEAT COVER MAKER Gender Identity Not on file Sexual [...] R/O COVID-19 07/25/2020 07/25/2020 07/27/2020 5:01 AM SEAT COVER MAKER R/O COVID-19 09/30/2020 09/30/2020 09/30/2020 7:23 PM SEAT COVER MAKER documented as of this encounter Care Teams Closet Organizer Relationship Specialty Start Date End Date Radha Cowan MD [address] [address] PCP - General Family Practice 10/24/20 documented as of this encounter
--- OUTSIDE RECORDS SUMMARY | 2025-05-30 09:36 | XMS_ITS | Encounter Summary ---
Author Organization [facility] Address [address] Charlesn: [place] [address] Care Team Providers Care Brake Operator Name Role Phone Radha Cowan MD Primary Care Provider [phone] Encounter Details Date Type Department Care Team (Late st Contact Info) Description 12/16/2000 Outpatient Historical Augusto Nicole Jr., MD [address] [place] [phone] Social History Tobacco Use Types Packs/Day Years Used Date Smoking Tobacco: Never Assessed Comments Unknown Sex and Gender Information Value Date Recorded Sex Assigned at Not on file Legal Sex Female 3:33 AM SURVEY RESEARCH PROFESSOR Gender Identity Not on file Sexual Orientation Not on file documented as of this encounter Plan of Treatment Not on file documented as of this encounter Visit Diagnoses Not on filedocumented in this encounter Additional Health Concerns Infection Onset Date Last Indicated Resolved Time R/O COVID-19 05/16/2020 05/16/2020 05/18/2020 12:3 1 AM CDT R/O COVID-19 07/25/2020 07/25/2020 07/27/2020 5:01 AM SURVEY RESEARCH PROFESSOR R/O COVID-19 09/30/2020 09/30/2020 09/30/2020 7:23 PM SURVEY RESEARCH PROFESSOR documented as of this encounter Care Teams Brake Operator Relationship Specialty Start Date End Date Radha Cowan MD [address] [place] [phone] PCP - General Family Practice 10/24/20 documented as of this encounter
--- OUTSIDE RECORDS SUMMARY | 2025-05-30 09:36 | XMS_ITS | Encounter Summary ---
Author Organization [facility] Address [address] Charlesn: [place] [address] Care Team Providers Care Leather Belt Loop Cutter Name Role Phone Radha Cowan MD Primary Care Provider [phone] Encounter Details Date Type Department Care Team (Late st Contact Info) Description 03/15/2002 Outpatient Historical Augusto Nicole Jr., MD [address] [place] [phone] Social History Tobacco Use Types Packs/Day Years Used Date Smoking Tobacco: Never Assessed Comments Unknown Sex and Gender Information Value Date Recorded Sex Assigned at Not on file Legal Sex Female 3:33 AM BONDING MACHINE TENDER Gender Identity Not on file Sexual Orientation Not on file documented as of this encounter Plan of Treatment Not on file documented as of this encounter Visit Diagnoses Not on filedocumented in this encounter Additional Health Concerns Infection Onset Date Last Indicated Resolved Time R/O COVID-19 05/16/2020 05/16/2020 05/18/2020 12:3 1 AM CDT R/O COVID-19 07/25/2020 07/25/2020 07/27/2020 5:01 AM BONDING MACHINE TENDER R/O COVID-19 09/30/2020 09/30/2020 09/30/2020 7:23 PM BONDING MACHINE TENDER documented as of this encounter Care Teams Leather Belt Loop Cutter Relationship Specialty Start Date End Date Radha Cowan MD [address] [place] [address] PCP - General Family Practice 10/24/20 documented as of this encounter
--- OUTSIDE RECORDS SUMMARY | 2025-05-30 09:37 | XMS_ITS | Encounter Summary ---
Author Organization [facility] Address [address] [place] [address] Care Team Providers Care Membership Manager Name Role Phone Radha Cowan MD Primary Care Provider Encounter Details Date Type Department Care Team (Latest Contact Info) Description 01/15/2003 Outpatient Historical [facility] Corey Burkett, Augusto Tang MD [address] [place] [phone] DIABETES UNCOMPL ADULT-TYPE II (CMS/HCC) (Primary Dx); Pure hypercholesterolem; HYPERTENSION NOS; TOBACCO USE DISORDER Social History Tobacco Use Types Packs/Day Years Used Date Smoking Tobacco: Never Assessed Comments Unknown Sex and Gender Information Value Date Recorded Sex Assigned at Not on file Legal Sex Female 3:33 AM CLINICAL STAFF RN Gender Identity Not on file Sexual Orientation [...] R/O COVID-19 07/25/2020 07/25/2020 07/27/2020 5:01 AM CLINICAL STAFF RN R/O COVID-19 09/30/2020 09/30/2020 09/30/2020 7:23 PM CLINICAL STAFF RN documented as of this encounter Care Teams Membership Manager Relationship Specialty Start Date End Date Radha Cowan MD [address] [address] PCP - General Family Practice 10/24/20 documented as of this encounter
--- OUTSIDE RECORDS SUMMARY | 2025-05-30 09:37 | XMS_ITS | Encounter Summary ---
Author Organization [facility] Address [address] [place] [address] Care Team Providers Care Terminal Superintendent Name Role Phone Radha Cowan MD Primary Care Provider Encounter Details Date Type Department Care Team (Latest Contact Info) Description 03/23/2002 Outpatient Historical [facility] Augusto Nicole Jr., MD [address] [place] [phone] ABDOMINAL PAIN UNSPEC SITE (Primary Dx); IRON DEFIC ANEMIA NOS; GENERALIZED ANXIETY DIS Social History Tobacco Use Types Packs/Day Years Used Date Smoking Tobacco: Never Assessed Comments Unknown Sex and Gender Information Value Date Recorded Sex Assigned at Not on file Legal Sex Female 3:33 AM TECHNICIAN SEMICONDUCTOR DEVELOPMENT Gender Identity Not on file Sexual Orientation [...] R/O COVID-19 07/25/2020 07/25/2020 07/27/2020 5:01 AM TECHNICIAN SEMICONDUCTOR DEVELOPMENT R/O COVID-19 09/30/2020 09/30/2020 09/30/2020 7:23 PM TECHNICIAN SEMICONDUCTOR DEVELOPMENT documented as of this encounter Care Teams Terminal Superintendent Relationship Specialty Start Date End Date Radha Cowan MD [address] [phone] PCP - General Family Practice 10/24/20 documented as of this encounter
--- OUTSIDE RECORDS SUMMARY | 2025-05-30 09:37 | XMS_ITS | Encounter Summary ---
Author Organization [facility] Address [address] Charlesn: [place] [address] Care Team Providers Care Machine Taper Name Role Phone Radha Cowan MD Primary Care Provider +1- [phone] Encounter Details Date Type Department Care Team (Late st Contact Info) Description 12/19/2001 Outpatient Historical Augusto Nicole Jr., MD [address] [place] [phone] Social History Tobacco Use Types Packs/Day Years Used Date Smoking Tobacco: Never Assessed Comments Unknown Sex and Gender Information Value Date Recorded Sex Assigned at Not on file Legal Sex Female 3:33 AM PUBLICITY CONSULTANT Gender Identity Not on file Sexual Orientation Not on file documented as of this encounter Plan of Treatment Not on file documented as of this encounter Visit Diagnoses Not on filedocumented in this encounter Additional Health Concerns Infection Onset Date Last Indicated Resolved Time R/O COVID-19 05/16/2020 05/16/2020 05/18/2020 12:3 1 AM CDT R/O COVID-19 07/25/2020 07/25/2020 07/27/2020 5:01 AM PUBLICITY CONSULTANT R/O COVID-19 09/30/2020 09/30/2020 09/30/2020 7:23 PM PUBLICITY CONSULTANT documented as of this encounter Care Teams Machine Taper Relationship Specialty Start Date End Date Radha Cowan MD [address] [place] [phone] PCP - General Family Practice 10/24/20 documented as of this encounter
--- OUTSIDE RECORDS SUMMARY | 2025-05-30 09:37 | XMS_ITS | Encounter Summary ---
Author Organization [facility] Address [address] [place] [address] Care Team Providers Care Day Haul Youth Supervisor Name Role Phone Radha Cowan MD Primary Care Provider [phone] Encounter Details Date Type Department Care Team (Latest Contact Info) Description 07/05/2001 Outpatient Historical [facility] Augusto Nicole Jr., MD [address] [place] [phone] VACCINE FOR INFLUENZA (Primary Dx) Social History Tobacco Use Types Packs/Day Years Used Date Smoking Tobacco: Never Assessed Comments Unknown Sex and Gender Information Value Date Recorded Sex Assigned at Not on file Legal Sex Female 3:33 AM MEDICAL BILLING SPECIALIST Gender Identity Not on file Sexual [...] R/O COVID-19 07/25/2020 07/25/2020 07/27/2020 5:01 AM MEDICAL BILLING SPECIALIST R/O COVID-19 09/30/2020 09/30/2020 09/30/2020 7:23 PM MEDICAL BILLING SPECIALIST documented as of this encounter Care Teams Day Haul Youth Supervisor Relationship Specialty Start Date End Date Radha Cowan MD [address] [facility] [address] [place] [phone] PCP - General Family Practice 10/24/20 documented as of this encounter
--- OUTSIDE RECORDS SUMMARY | 2025-05-30 09:37 | XMS_ITS | Encounter Summary ---
Author Organization [facility] Address [address] Charlesn: [place] [address] Care Team Providers Care Fashion Editor Name Role Phone Radha Cowan MD Primary Care Provider +1- [phone] Encounter Details Date Type Department Care Team (Late st Contact Info) Description 07/03/2002 Outpatient Historical Augusto Nicole Jr., MD [address] [place] [phone] Social History Tobacco Use Types Packs/Day Years Used Date Smoking Tobacco: Never Assessed Comments Unknown Sex and Gender Information Value Date Recorded Sex Assigned at Not on file Legal Sex Female 3:33 AM HEALTH AND SAFETY DIRECTOR Gender Identity Not on file Sexual Orientation Not on file documented as of this encounter Plan of Treatment Not on file documented as of this encounter Visit Diagnoses Not on filedocumented in this encounter Additional Health Concerns Infection Onset Date Last Indicated Resolved Time R/O COVID-19 05/16/2020 05/16/2020 05/18/2020 12:3 1 AM CDT R/O COVID-19 07/25/2020 07/25/2020 07/27/2020 5:01 AM HEALTH AND SAFETY DIRECTOR R/O COVID-19 09/30/2020 09/30/2020 09/30/2020 7:23 PM HEALTH AND SAFETY DIRECTOR documented as of this encounter Care Teams Fashion Editor Relationship Specialty Start Date End Date Radha Cowan MD [address] [place] [phone] PCP - General Family Practice 10/24/20 documented as of this encounter
--- OUTSIDE RECORDS SUMMARY | 2025-05-30 09:37 | XMS_ITS | Encounter Summary ---
Author Organization [facility] Address [address] [place] [address] Care Team Providers Care Computer Forensics Investigator Name Role Phone Radha Cowan MD Primary Care Provider +1- [phone] Encounter Details Date Type Department Care Team (Latest Contact Info) Description 06/20/2003 Outpatient Historical [facility] Corey Burkett, Augusto Tang MD [address] [place] [phone] DIABETES UNCOMPL ADULT-TYPE II ([facility]) (Primary Dx); ACUTE BRONCHIOLITIS/RESP SYNC VIRUS; TRACHEA/BRONCHUS DIS NEC; ASTHMA UNSPECIFIED Social History Tobacco Use Types Packs/Day Years Used Date Smoking Tobacco: Never Assessed Comments Unknown Sex and Gender Information Value Date Recorded Sex Assigned at Not on file Legal Sex Female 3:33 AM PROFESSOR OF RADIOLOGY Gender Identity Not on file Sexual Orientation [...] 07/25/2020 07/25/2020 07/27/2020 5:01 AM PROFESSOR OF RADIOLOGY R/O COVID-19 09/30/2020 09/30/2020 09/30/2020 7:23 PM PROFESSOR OF RADIOLOGY documented as of this encounter Care Teams Computer Forensics Investigator Relationship Specialty Start Date End Date Radha Cowan MD [address] [phone] PCP - General Family Practice 10/24/20 documented as of this encounter
--- OUTSIDE RECORDS SUMMARY | 2025-05-30 09:37 | XMS_ITS | Encounter Summary ---
Author Organization [facility] Address [address] [place] [address] Care Team Providers Care Timber Deadener Name Role Phone Radha Cowan MD Primary Care Provider Encounter Details Date Type Department Care Team (Latest Contact Info) Description 04/24/2002 Outpatient Historical [facility] ToroHema MD [address] [address] SURGERY FOLLOWUP, UNSPEC (Primary Dx) Social History Tobacco Use Types Packs/Day Years Used Date Smoking Tobacco: Never Assessed Comments Unknown Sex and Gender Information Value Date Recorded Sex Assigned at Not on file Legal Sex Female 3:33 AM CORPORATE DIRECTOR OF HUMAN RESOURCES Gender Identity Not on file Sexual Orientation [...] R/O COVID-19 07/25/2020 07/25/2020 07/27/2020 5:01 AM CORPORATE DIRECTOR OF HUMAN RESOURCES R/O COVID-19 09/30/2020 09/30/2020 09/30/2020 7:23 PM CORPORATE DIRECTOR OF HUMAN RESOURCES documented as of this encounter Care Teams Timber Deadener Relationship Specialty Start Date End Date Radha Cowan MD [address] [address] PCP - General Family Practice 10/24/20 documented as of this encounter
--- OUTSIDE RECORDS SUMMARY | 2025-05-30 09:37 | XMS_ITS | Encounter Summary ---
Author Organization [facility] Address [address] [place] [address] Care Team Providers Care Director Athletic Name Role Phone Radha Cowan MD Primary Care Provider Encounter Details Date Type Department Care Team (Latest Contact Info) Description 02/19/2003 Outpatient Historical [facility] Corey Burkett, Augusto Tang MD [address] [place] [phone] DIABETES UNCOMPL ADULT-TYPE II (CMS/HCC) (Primary Dx); MIGRAINE NOS W/O MENTN INTRACTABLE; Pure hypercholesterolem; DERMATOPHYTOSIS OF NAIL Social History Tobacco Use Types Packs/Day Years Used Date Smoking Tobacco: Never Assessed Comments Unknown Sex and Gender Information Value Date Recorded Sex Assigned at Not on file Legal Sex Female 3:33 AM MONITOR CAR OPERATOR Gender Identity Not on file Sexual [...] R/O COVID-19 07/25/2020 07/25/2020 07/27/2020 5:01 AM MONITOR CAR OPERATOR R/O COVID-19 09/30/2020 09/30/2020 09/30/2020 7:23 PM MONITOR CAR OPERATOR documented as of this encounter Care Teams Director Athletic Relationship Specialty Start Date End Date Radha Cowan MD [address] [phone] PCP - General Family Practice 10/24/20 documented as of this encounter
--- OUTSIDE RECORDS SUMMARY | 2025-05-30 09:37 | XMS_ITS | Encounter Summary ---
Author Organization [facility] Address [address] [place] [address] Care Team Providers Care Fourdrinier Tender Name Role Phone Radha Cowan MD Primary Care Provider [phone] Encounter Details Date Type Department Care Team (Late st Contact Info) Description 10/31/2004 Outpatient Historical [facility] Alfonso Carranza MD [address] [address] Social History Tobacco Use Types Packs/Day Years Used Date Smoking Tobacco: Never Assessed Comments Unknown Sex and Gender Information Value Date Recorded Sex Assigned at Not on file Legal Sex Female 3:33 AM PATIENT CONSUMER MARKETER Gender Identity Not on file Sexual Orientation Not on file documented as of this encounter Plan of Treatment Not on file documented as of this encounter Visit Diagnoses Not on filedocumented in this encounter Additional Health Concerns Infection Onset Date Last Indicated Resolved Time R/O COVID-19 05/16/2020 05/16/2020 05/18/2020 12:3 1 AM CDT R/O COVID-19 07/25/2020 07/25/2020 07/27/2020 5:01 AM PATIENT CONSUMER MARKETER R/O COVID-19 09/30/2020 09/30/2020 09/30/2020 7:23 PM PATIENT CONSUMER MARKETER documented as of this encounter Care Teams Fourdrinier Tender Relationship Specialty Start Date End Date Radha Cowan MD [address] [place] [phone] PCP - General Family Practice 10/24/20 documented as of this encounter
--- OUTSIDE RECORDS SUMMARY | 2025-05-30 09:37 | XMS_ITS | Encounter Summary ---
Author Organization [facility] Address [address] [place] [address] Care Team Providers Care Wildlife Conservation Professor Name Role Phone Radha Cowan MD Primary Care Provider Encounter Details Date Type Department Care Team (Latest Contact Info) Description 12/19/2001 Outpatient Historical [facility] Augusto Nicole Jr., MD [address] [place] [phone] ENDOCARDITIS NOS (Primary Dx); EDEMA Social History Tobacco Use Types Packs/Day Years Used Date Smoking Tobacco: Never Assessed Comments Unknown Sex and Gender Information Value Date Recorded Sex Assigned at Not on file Legal Sex Female 3:33 AM WASHERETTE MACHINE OPERATOR Gender Identity Not on file [...] R/O COVID-19 07/25/2020 07/25/2020 07/27/2020 5:01 AM WASHERETTE MACHINE OPERATOR R/O COVID-19 09/30/2020 09/30/2020 09/30/2020 7:23 PM WASHERETTE MACHINE OPERATOR documented as of this encounter Care Teams Wildlife Conservation Professor Relationship Specialty Start Date End Date Radha Cowan MD [address] [facility] [address] [place] [address] PCP - General Family Practice 10/24/20 documented as of this encounter
--- OUTSIDE RECORDS SUMMARY | 2025-05-30 09:37 | XMS_ITS | Encounter Summary ---
Author Organization [facility] Address [address] [place] [address] Care Team Providers Care Metallographic Technician Name Role Phone Radha Cowan MD Primary Care Provider Encounter Details Date Type Department Care Team (Latest Contact Info) Description 10/13/2001 Outpatient Historical [facility] Augusto Nicole Jr., MD [address] [place] [phone] HYPERLIPIDEMIA NEC/NOS (Primary Dx); OBESITY NOS; DEPRESSIVE DISORDER NEC Social History Tobacco Use Types Packs/Day Years Used Date Smoking Tobacco: Never Assessed Comments Unknown Sex and Gender Information Value Date Recorded Sex Assigned at Not on file Legal Sex Female 3:33 AM EARTH SCIENCES PROFESSOR Gender Identity Not on file Sexual [...] R/O COVID-19 07/25/2020 07/25/2020 07/27/2020 5:01 AM EARTH SCIENCES PROFESSOR R/O COVID-19 09/30/2020 09/30/2020 09/30/2020 7:23 PM EARTH SCIENCES PROFESSOR documented as of this encounter Care Teams Metallographic Technician Relationship Specialty Start Date End Date Radha Cowan MD [address] [phone] PCP - General Family Practice 10/24/20 documented as of this encounter
--- OUTSIDE RECORDS SUMMARY | 2025-05-30 09:37 | XMS_ITS | Encounter Summary ---
Author Organization [facility] Address [address] [place] [address] Care Team Providers Care Eligibility Worker Name Role Phone Radha Cowan MD Primary Care Provider [phone] Encounter Details Date Type Department Care Team (Latest Contact Info) Description 03/07/2003 Outpatient Historical [facility] Corey Burektt, Augusto Tang MD [address] [place] [phone] CHRONIC AIRWAY OBSTRUCTION NEC ([facility]) (Primary Dx); BRONCHITIS NOS; EDEMA; Pure hypercholesterolem Social History Tobacco Use Types Packs/Day Years Used Date Smoking Tobacco: Never Assessed Comments Unknown Sex and Gender Information Value Date Recorded Sex Assigned at Not on file Legal Sex Female 3:33 AM LEHR LOADER Gender Identity Not on file Sexual Orientation [...] R/O COVID-19 07/25/2020 07/25/2020 07/27/2020 5:01 AM LEHR LOADER R/O COVID-19 09/30/2020 09/30/2020 09/30/2020 7:23 PM LEHR LOADER documented as of this encounter Care Teams Eligibility Worker Relationship Specialty Start Date End Date Radha Cowan MD [address] [address] PCP - General Family Practice 10/24/20 documented as of this encounter
--- OUTSIDE RECORDS SUMMARY | 2025-05-30 09:37 | XMS_ITS | Encounter Summary ---
Author Organization [facility] Address [address] Charlesn: [place] [address] Care Team Providers Care Tray Server Name Role Phone Radha Cowan MD Primary Care Provider +1- [phone] Encounter Details Date Type Department Care Team (Late st Contact Info) Description 12/05/2001 Outpatient Historical Augusto Nicole Jr., MD [address] [place] [phone] Social History Tobacco Use Types Packs/Day Years Used Date Smoking Tobacco: Never Assessed Comments Unknown Sex and Gender Information Value Date Recorded Sex Assigned at Not on file Legal Sex Female 3:33 AM BEEKEEPER Gender Identity Not on file Sexual Orientation Not on file documented as of this encounter Plan of Treatment Not on file documented as of this encounter Visit Diagnoses Not on filedocumented in this encounter Additional Health Concerns Infection Onset Date Last Indicated Resolved Time R/O COVID-19 05/16/2020 05/16/2020 05/18/2020 12:3 1 AM CDT R/O COVID-19 07/25/2020 07/25/2020 07/27/2020 5:01 AM BEEKEEPER R/O COVID-19 09/30/2020 09/30/2020 09/30/2020 7:23 PM BEEKEEPER documented as of this encounter Care Teams Tray Server Relationship Specialty Start Date End Date Radha Cowan MD [address] [place] [address] PCP - General Family Practice 10/24/20 documented as of this encounter
--- OUTSIDE RECORDS SUMMARY | 2025-05-30 09:37 | XMS_ITS | Encounter Summary ---
Author Organization [facility] Address [address] [place] [address] Care Team Providers Care Crts Name Role Phone Radha Cowan MD Primary Care Provider Encounter Details Date Type Department Care Team (Latest Contact Info) Description 01/12/2003 Outpatient Historical [facility] [address] [place] [address] Mirza Amezcua MD NO ADDRESS ON FILE COUGH (Primary Dx) Social History Tobacco Use Types Packs/Day Years Used Date Smoking Tobacco: Never Assessed Comments Unknown Sex and Gender Information Value Date Recorded Sex Assigned at Not on file Legal Sex Female 3:33 AM SUPERVISOR MOTORCYCLE REPAIR SHOP Gender Identity Not on file Sexual Orientation Not on file documented as of this encounter Plan of Treatment Not on file documented as of this encounter Visit Diagnoses Diagnosis Cough- Primary documented in this encounter Additional Health Concerns Infection Onset Date Last Indicated Resolved Time R/O COVID-19 05/16/2020 05/16/2020 05/18/2020 12:3 1 AM CDT R/O COVID-19 07/25/2020 07/25/2020 07/27/2020 5:01 AM SUPERVISOR MOTORCYCLE REPAIR SHOP R/O COVID-19 09/30/2020 09/30/2020 09/30/2020 7:23 PM SUPERVISOR MOTORCYCLE REPAIR SHOP documented as of this encounter Care Teams Crts Relationship Specialty Start Date End Date Radha Cowan MD [address] [facility] [address] [place] [phone] PCP - General Family Practice 10/24/20 documented as of this encounter
--- OUTSIDE RECORDS SUMMARY | 2025-05-30 09:37 | XMS_ITS | Encounter Summary ---
Author Organization [facility] Address [address] [place] [address] Care Team Providers Care Bean Roaster Name Role Phone Radha Cowan MD Primary Care Provider [phone]- [phone] Encounter Details Date Type Department Care Team (Latest Contact Info) Description 12/28/2001 Outpatient Historical [facility] Augusto Nicole Jr., MD [address] [place] [phone] ABN BLOOD CHEMISTRY NEC (Primary Dx) Social History Tobacco Use Types Packs/Day Years Used Date Smoking Tobacco: Never Assessed Comments Unknown Sex and Gender Information Value Date Recorded Sex Assigned at Not on file Legal Sex Female 3:33 AM DIRECTOR OF CONSERVATION Gender Identity Not on file Sexual Orientation [...] COVID-19 07/25/2020 07/25/2020 07/27/2020 5:01 AM DIRECTOR OF CONSERVATION R/O COVID-19 09/30/2020 09/30/2020 09/30/2020 7:23 PM DIRECTOR OF CONSERVATION documented as of this encounter Care Teams Bean Roaster Relationship Specialty Start Date End Date Radha Cowan MD [address] [place] [address] PCP - General Family Practice 10/24/20 documented as of this encounter
--- OUTSIDE RECORDS SUMMARY | 2025-05-30 09:37 | XMS_ITS | Encounter Summary ---
Author Organization [facility] Address [address] [place] [address] Care Team Providers Care Liturgical Music Director Name Role Phone Radha Cowan MD Primary Care Provider +[phone]- [phone] Encounter Details Date Type Department Care Team (Latest Contact Info) Description 04/19/2003 Outpatient Historical [facility] Corey Burkett, Augusto Tang MD [address] [place] [phone] DIABETES UNCOMPL ADULT-TYPE II (CMS/HCC) (Primary Dx); OPEN WOUND KNEE/LEG/ANKLE; HYPERTENSION NOS; HYPERLIPIDEMIA NEC/NOS Social History Tobacco Use Types Packs/Day Years Used Date Smoking Tobacco: Never Assessed Comments Unknown Sex and Gender Information Value Date Recorded Sex Assigned at Not on file Legal Sex Female 3:33 AM CLIENT SOLUTIONS DIRECTOR Gender Identity Not on file Sexual [...] R/O COVID-19 07/25/2020 07/25/2020 07/27/2020 5:01 AM CLIENT SOLUTIONS DIRECTOR R/O COVID-19 09/30/2020 09/30/2020 09/30/2020 7:23 PM CLIENT SOLUTIONS DIRECTOR documented as of this encounter Care Teams Liturgical Music Director Relationship Specialty Start Date End Date Radha Cowan MD [address] [phone] PCP - General Family Practice 10/24/20 documented as of this encounter
--- OUTSIDE RECORDS SUMMARY | 2025-05-30 09:37 | XMS_ITS | Encounter Summary ---
Author Organization [facility] Address [address] [place] [address] Care Team Providers Care Automatic Wheel Line Operator Name Role Phone Radha Cowan MD Primary Care Provider Encounter Details Date Type Department Care Team (Latest Contact Info) Description 08/11/2002 Outpatient Historical [facility] Augusto Nicole Jr., MD [address] [place] [phone] HYPERLIPIDEMIA NEC/NOS (Primary Dx) Social History Tobacco Use Types Packs/Day Years Used Date Smoking Tobacco: Never Assessed Comments Unknown Sex and Gender Information Value Date Recorded Sex Assigned at Not on file Legal Sex Female 3:33 AM BENCH MACHINE OPERATOR Gender Identity Not on file [...] R/O COVID-19 07/25/2020 07/25/2020 07/27/2020 5:01 AM BENCH MACHINE OPERATOR R/O COVID-19 09/30/2020 09/30/2020 09/30/2020 7:23 PM BENCH MACHINE OPERATOR documented as of this encounter Care Teams Automatic Wheel Line Operator Relationship Specialty Start Date End Date Radha Cowan MD [address] [facility] [address] [place] [address] PCP - General Family Practice 10/24/20 documented as of this encounter
--- OUTSIDE RECORDS SUMMARY | 2025-05-30 09:37 | XMS_ITS | Encounter Summary ---
Author Organization [facility] Address [address] Charlesn: [place] [address] Care Team Providers Care Telecommunications Sales Representative Name Role Phone Radha Cowan MD Primary Care Provider +1- [phone] Encounter Details Date Type Department Care Team (Late st Contact Info) Description 05/19/2002 Outpatient Historical Augusto Nicole Jr., MD [address] [place] [phone] Social History Tobacco Use Types Packs/Day Years Used Date Smoking Tobacco: Never Assessed Comments Unknown Sex and Gender Information Value Date Recorded Sex Assigned at Not on file Legal Sex Female 3:33 AM BUCKLE ATTACHER Gender Identity Not on file Sexual Orientation Not on file documented as of this encounter Plan of Treatment Not on file documented as of this encounter Visit Diagnoses Not on filedocumented in this encounter Additional Health Concerns Infection Onset Date Last Indicated Resolved Time R/O COVID-19 05/16/2020 05/16/2020 05/18/2020 12:3 1 AM CDT R/O COVID-19 07/25/2020 07/25/2020 07/27/2020 5:01 AM BUCKLE ATTACHER R/O COVID-19 09/30/2020 09/30/2020 09/30/2020 7:23 PM BUCKLE ATTACHER documented as of this encounter Care Teams Telecommunications Sales Representative Relationship Specialty Start Date End Date Radha Cowan MD [address] [place] [address] PCP - General Family Practice 10/24/20 documented as of this encounter
--- OUTSIDE RECORDS SUMMARY | 2025-05-30 09:37 | XMS_ITS | Encounter Summary ---
Author Organization [facility] Address [address] [facility] Charlesn: [place] [address] Care Team Providers Care Landscape Gardener Name Role Phone Radha Cowan MD Primary Care Provider +1- [phone] Encounter Details Date Type Department Care Team (Late st Contact Info) Description 05/10/2002 Outpatient Historical Augusto Nicole Jr., MD [address] [place] [phone] Social History Tobacco Use Types Packs/Day Years Used Date Smoking Tobacco: Never Assessed Comments Unknown Sex and Gender Information Value Date Recorded Sex Assigned at Not on file Legal Sex Female 3:33 AM DIRECTOR OF SOFTWARE DEVELOPMENT Gender Identity Not on file Sexual Orientation Not on file documented as of this encounter Plan of Treatment Not on file documented as of this encounter Visit Diagnoses Not on filedocumented in this encounter Additional Health Concerns Infection Onset Date Last Indicated Resolved Time R/O COVID-19 05/16/2020 05/16/2020 05/18/2020 12:3 1 AM CDT R/O COVID-19 07/25/2020 07/25/2020 07/27/2020 5:01 AM DIRECTOR OF SOFTWARE DEVELOPMENT R/O COVID-19 09/30/2020 09/30/2020 09/30/2020 7:23 PM DIRECTOR OF SOFTWARE DEVELOPMENT documented as of this encounter Care Teams Landscape Gardener Relationship Specialty Start Date End Date Radha Cowan MD [address] [place] [address] PCP - General Family Practice 10/24/20 documented as of this encounter
--- OUTSIDE RECORDS SUMMARY | 2025-05-30 09:37 | XMS_ITS | Encounter Summary ---
Author Organization [facility] Address [address] [place] [address] Care Team Providers Care Entry Level Financial Analyst Name Role Phone Radha Cowan MD Primary Care Provider Encounter Details Date Type Department Care Team (Latest Contact Info) Description 09/01/2001 Outpatient Historical [facility] Augusto Nicole Jr., MD [address] [place] [phone] ABSENCE OF MENSTRUATION (Primary Dx); HYPERLIPIDEMIA NEC/NOS; ALLERGIC RHINITIS NOS Social History Tobacco Use Types Packs/Day Years Used Date Smoking Tobacco: Never Assessed Comments Unknown Sex and Gender Information Value Date Recorded Sex Assigned at Not on file Legal Sex Female 3:33 AM AVIATION PROJECT ENGINEER Gender Identity Not on file Sexual [...] R/O COVID-19 07/25/2020 07/25/2020 07/27/2020 5:01 AM AVIATION PROJECT ENGINEER R/O COVID-19 09/30/2020 09/30/2020 09/30/2020 7:23 PM AVIATION PROJECT ENGINEER documented as of this encounter Care Teams Entry Level Financial Analyst Relationship Specialty Start Date End Date Radha Cowan MD [address] [phone] PCP - General Family Practice 10/24/20 documented as of this encounter
--- OUTSIDE RECORDS SUMMARY | 2025-05-30 09:37 | XMS_ITS | Encounter Summary ---
Author Organization [facility] Address [address] [place] [address] Care Team Providers Care Net Developer Consultant Name Role Phone Radha Cowan MD Primary Care Provider [phone] Encounter Details Date Type Department Care Team (Latest Contact Info) Description 11/02/2002 Outpatient Historical [facility] Corey Burkett, Augusto Tang MD [address] [place] [phone] DIABETES UNCOMPL ADULT-TYPE II (CMS/HCC) (Primary Dx); Pure hypercholesterolem; LUMBAGO; ABNORMAL FINDINGS-LUNG FIELD Social History Tobacco Use Types Packs/Day Years Used Date Smoking Tobacco: Never Assessed Comments Unknown Sex and Gender Information Value Date Recorded Sex Assigned at Not on file Legal Sex Female 3:33 AM SCREENING SPECIALIST Gender Identity Not on file Sexual [...] R/O COVID-19 07/25/2020 07/25/2020 07/27/2020 5:01 AM SCREENING SPECIALIST R/O COVID-19 09/30/2020 09/30/2020 09/30/2020 7:23 PM SCREENING SPECIALIST documented as of this encounter Care Teams Net Developer Consultant Relationship Specialty Start Date End Date Radha Cowan MD [address] [address] PCP - General Family Practice 10/24/20 documented as of this encounter
--- OUTSIDE RECORDS SUMMARY | 2025-05-30 09:37 | XMS_ITS | Encounter Summary ---
Author Organization [facility] Address [address] [place]n: [place] [address] Care Team Providers Care Occupational Therapist Aide Name Role Phone Radha Cowan MD Primary Care Provider +1- [phone] Encounter Details Date Type Department Care Team (Late st Contact Info) Description 12/28/2001 Outpatient Historical Augusto Nicole Jr., MD [address] [place] [phone] Social History Tobacco Use Types Packs/Day Years Used Date Smoking Tobacco: Never Assessed Comments Unknown Sex and Gender Information Value Date Recorded Sex Assigned at Not on file Legal Sex Female 3:33 AM NUCLEAR PLANT TECHNICAL ADVISOR Gender Identity Not on file Sexual Orientation Not on file documented as of this encounter Plan of Treatment Not on file documented as of this encounter Visit Diagnoses Not on filedocumented in this encounter Additional Health Concerns Infection Onset Date Last Indicated Resolved Time R/O COVID-19 05/16/2020 05/16/2020 05/18/2020 12:3 1 AM CDT R/O COVID-19 07/25/2020 07/25/2020 07/27/2020 5:01 AM NUCLEAR PLANT TECHNICAL ADVISOR R/O COVID-19 09/30/2020 09/30/2020 09/30/2020 7:23 PM NUCLEAR PLANT TECHNICAL ADVISOR documented as of this encounter Care Teams Occupational Therapist Aide Relationship Specialty Start Date End Date Radha Cowan MD [address] [place] [phone] PCP - General Family Practice 10/24/20 documented as of this encounter
--- OUTSIDE RECORDS SUMMARY | 2025-05-30 09:37 | XMS_ITS | Encounter Summary ---
Author Organization [facility] Address [address] [place] [address] Care Team Providers Care Programmer Engineering And Scientific Name Role Phone Radha Cowan MD Primary Care Provider +1- [phone] Encounter Details Date Type Department Care Team (Latest Contact Info) Description 11/06/2020 Ancillary Orders [facility] [address] [facility] [address] [place] [address] Juancarlos Sapp PA NO [...] on file Legal Sex Female 3:33 AM PROPOSAL REP Gender Identity Not on file Sexual Orientation Not on file Occupation Industry Job Start Date Job End Date Not on file Not on file Not on file Not on file COVID-19 Exposure Response Date Recorded In the last month, have you been in contact with someone who was confirmed or suspected to have Coronavirus / COVID-19? No / Unsure 11/04/2020 8:57 AM PROPOSAL REP documented as of this encounter Plan of Treatment Not on file documented as of this encounter Visit Diagnoses Diagnosis Inconclusive mammography Inconclusive mammogram documented in this encounter Care Teams Programmer Engineering And Scientific Relationship Specialty Start Date End Date Radha Cowan MD [address] [place] [phone] PCP - General Family Practice 10/24/20 documented as of this encounter
--- OUTSIDE RECORDS SUMMARY | 2025-05-30 09:37 | XMS_ITS | Encounter Summary ---
Author Organization [facility] Address [address] [facility] [place] [address] Care Team Providers Care Outdoor Education Teacher Name Role Phone Radha Cowan MD Primary Care Provider Encounter Details Date Type Department Care Team (Late st Contact Info) Description 01/24/[address] [facility] [address] [place] [address] Palak Branch MD [facility] [address] [place] [id number] Augusto Wright III, MD NO ADDRESS ON FILE RECURR DEPR PSYCHOS-MOD (CMS/HCC) (Primary Dx) Social History Tobacco Use Types Packs/Day Years Used Date Smoking Tobacco: Never Assessed Comments Unknown Sex and Gender Information Value Date Recorded Sex Assigned at Not on file Legal Sex Female 3:33 AM CLERK OF WORKS Gender Identity Not on file Sexual Orientation [...] R/O COVID-19 07/25/2020 07/25/2020 07/27/2020 5:01 AM CLERK OF WORKS R/O COVID-19 09/30/2020 09/30/202009/3009/30/2020 7:23 PM CLERK OF WORKS documented as of this encounter Care Teams Outdoor Education Teacher Relationship Specialty Start Date End Date Radha Cowan MD [address] [phone] PCP - General Family Practice 10/24/20 documented as of this encounter
--- OUTSIDE RECORDS SUMMARY | 2025-05-30 09:37 | XMS_ITS | Encounter Summary ---
Author Organization [facility] Address [address] [place] [address] Care Team Providers Care Machine Stamper Name Role Phone Radha Cowan MD Primary Care Provider Encounter Details Date Type Department Care Team (Latest Contact Info) Description 04/10/2002 Outpatient Historical [facility] ToroHema MD [address] [address] ESOPHAGEAL REFLUX (Primary Dx); ABDOMINAL PAIN EPIGASTRIC Social History Tobacco Use Types Packs/Day Years Used Date Smoking Tobacco: Never Assessed Comments Unknown Sex and Gender Information Value Date Recorded Sex Assigned at Not on file Legal Sex Female 3:33 AM DRAFTER MECHANICAL Gender Identity Not on file Sexual Orientation [...] R/O COVID-19 07/25/2020 07/25/2020 07/27/2020 5:01 AM DRAFTER MECHANICAL R/O COVID-19 09/30/2020 09/30/2020 09/30/2020 7:23 PM DRAFTER MECHANICAL documented as of this encounter Care Teams Machine Stamper Relationship Specialty Start Date End Date Radha Cowan MD [address] [phone] PCP - General Family Practice 10/24/20 documented as of this encounter
--- OUTSIDE RECORDS SUMMARY | 2025-05-30 09:37 | XMS_ITS | Encounter Summary ---
Author Organization [facility] Address [address] [place]n: [place] [address] Care Team Providers Care Can Conveyor Feeder Name Role Phone Radha Cowan MD Primary Care Provider [phone]- [phone] Encounter Details Date Type Department Care Team (Late st Contact Info) Description 09/01/2001 Outpatient Historical Augusto Nicole Jr., MD [address] [place] [phone] Social History Tobacco Use Types Packs/Day Years Used Date Smoking Tobacco: Never Assessed Comments Unknown Sex and Gender Information Value Date Recorded Sex Assigned at Not on file Legal Sex Female 3:33 AM ADMINISTRATIVE PERSONAL ASSISTANT Gender Identity Not on file Sexual Orientation Not on file documented as of this encounter Plan of Treatment Not on file documented as of this encounter Visit Diagnoses Not on filedocumented in this encounter Additional Health Concerns Infection Onset Date Last Indicated Resolved Time R/O COVID-19 05/16/2020 05/16/2020 05/18/2020 12:3 1 AM CDT R/O COVID-19 07/25/2020 07/25/2020 07/27/2020 5:01 AM ADMINISTRATIVE PERSONAL ASSISTANT R/O COVID-19 09/30/2020 09/30/2020 09/30/2020 7:23 PM ADMINISTRATIVE PERSONAL ASSISTANT documented as of this encounter Care Teams Can Conveyor Feeder Relationship Specialty Start Date End Date Radha Cowan MD [address] [facility] [address] [place] [phone] PCP - General Family Practice 10/24/20 documented as of this encounter
--- OUTSIDE RECORDS SUMMARY | 2025-05-30 09:37 | XMS_ITS | Encounter Summary ---
Author Organization [facility] Address [address] [place] [address] Care Team Providers Care Astrochemist Name Role Phone Radha Cowan MD Primary Care Provider Encounter Details Date Type Department Care Team (Latest Contact Info) Description 07/20/2001 Outpatient Historical [facility] Fadi Hampton MD [address] [place] [address] CHRONIC RHINITIS (Primary Dx); TRACHEA/BRONCHUS DIS NEC; OBESITY NOS; TOBACCO USE DISORDER Social History Tobacco Use Types Packs/Day Years Used Date Smoking Tobacco: Never Assessed Comments Unknown Sex and Gender Information Value Date Recorded Sex Assigned at Not on file Legal Sex Female 3:33 AM CLINICAL SUPERVISOR Gender Identity Not on file Sexual [...] COVID-19 07/25/2020 07/25/2020 07/27/2020 5:01 AM CLINICAL SUPERVISOR R/O COVID-19 09/30/2020 09/30/2020 09/30/2020 7:23 PM CLINICAL SUPERVISOR documented as of this encounter Care Teams Astrochemist Relationship Specialty Start Date End Date Radha Cowan MD [address] [phone] PCP - General Family Practice 10/24/20 documented as of this encounter
--- OUTSIDE RECORDS SUMMARY | 2025-05-30 09:37 | XMS_ITS | Encounter Summary ---
Author Organization [facility] Address [address] [place] [address] Care Team Providers Care Radiation Protection Engineer Name Role Phone Radha Cowan MD Primary Care Provider Encounter Details Date Type Department Care Team (Latest Contact Info) Description 04/27/2003 Outpatient Historical [facility] Augusto Nicole Jr., MD [address] [place] [phone] HAIR DISEASES NEC (Primary Dx); ABN SERUM ENZY LEVEL NEC; HYPERLIPIDEMIA NEC/NOS Social History Tobacco Use Types Packs/Day Years Used Date Smoking Tobacco: Never Assessed Comments Unknown Sex and Gender Information Value Date Recorded Sex Assigned at Not on file Legal Sex Female 3:33 AM CHILD'S NURSE Gender Identity Not on file Sexual [...] R/O COVID-19 07/25/2020 07/25/2020 07/27/2020 5:01 AM CHILD'S NURSE R/O COVID-19 09/30/2020 09/30/2020 09/30/2020 7:23 PM CHILD'S NURSE documented as of this encounter Care Teams Radiation Protection Engineer Relationship Specialty Start Date End Date Radha Cowan MD [address] [phone] PCP - General Family Practice 10/24/20 documented as of this encounter
--- OUTSIDE RECORDS SUMMARY | 2025-05-30 09:37 | XMS_ITS | Encounter Summary ---
Author Organization [facility] Address [address] [place] [address] Care Team Providers Care Speech Clinician Name Role Phone Radha Cowan MD Primary Care Provider [phone] Encounter Details Date Type Department Care Team (Late st Contact Info) Description 06/20/2003 Outpatient Historical [facility] Augusto Nicole Jr., MD [address] [place] [phone] PNEUMONIA, ORGANISM NOS (Primary Dx) Social History Tobacco Use Types Packs/Day Years Used Date Smoking Tobacco: Never Assessed Comments Unknown Sex and Gender Information Value Date Recorded Sex Assigned at Not on file Legal Sex Female 3:33 AM LUMP MACHINE OPERATOR Gender Identity Not on file [...] R/O COVID-19 07/25/2020 07/25/2020 07/27/2020 5:01 AM LUMP MACHINE OPERATOR R/O COVID-19 09/30/2020 09/30/2020 09/30/2020 7:23 PM LUMP MACHINE OPERATOR documented as of this encounter Care Teams Speech Clinician Relationship Specialty Start Date End Date Radha Cowan MD [address] [phone] PCP - General Family Practice 10/24/20 documented as of this encounter
--- OUTSIDE RECORDS SUMMARY | 2025-05-30 09:37 | XMS_ITS | Encounter Summary ---
Author Organization [facility] Address [address] [place] [address] Care Team Providers Care Tumbler Operator Name Role Phone Radha Cowan MD Primary Care Provider +1- [phone] Encounter Details Date Type Department Care Team (Latest Contact Info) Description 01/16/2002 Outpatient Historical [facility] Augusto Nicole Jr., MD [address] [place] [phone] CHRONIC AIRWAY OBSTRUCTION NEC (CMS/[facility]) (Primary Dx); ANEMIA NOS; DEPRESSIVE DISORDER NEC Social History Tobacco Use Types Packs/Day Years Used Date Smoking Tobacco: Never Assessed Comments Unknown Sex and Gender Information Value Date Recorded Sex Assigned at Not on file Legal Sex Female 3:33 AM MECHANICAL DESIGN DRAFTER Gender Identity Not on file Sexual Orientation [...] R/O COVID-19 07/25/2020 07/25/2020 07/27/2020 5:01 AM MECHANICAL DESIGN DRAFTER R/O COVID-19 09/30/2020 09/30/2020 09/30/2020 7:23 PM MECHANICAL DESIGN DRAFTER documented as of this encounter Care Teams Tumbler Operator Relationship Specialty Start Date End Date Radha Cowan MD [address] [phone] PCP - General Family Practice 10/24/20 documented as of this encounter
--- OUTSIDE RECORDS SUMMARY | 2025-05-30 09:37 | XMS_ITS | Encounter Summary ---
Author Organization [facility] Address [address] [place] [address] Care Team Providers Care Chemist Assistant Name Role Phone Radha Cowan MD Primary Care Provider Encounter Details Date Type Department Care Team (Latest Contact Info) Description 04/19/2003 Outpatient Historical [facility] Augusto Nicole Jr., MD [address] [place] [phone] HYPERTENSION NOS (Primary Dx) Social History Tobacco Use Types Packs/Day Years Used Date Smoking Tobacco: Never Assessed Comments Unknown Sex and Gender Information Value Date Recorded Sex Assigned at Not on file Legal Sex Female 3:33 AM MANAGER CORPORATE MARKETING Gender Identity Not on file Sexual Orientation [...] COVID-19 07/25/2020 07/25/2020 07/27/2020 5:01 AM MANAGER CORPORATE MARKETING R/O COVID-19 09/30/2020 09/30/2020 09/30/2020 7:23 PM MANAGER CORPORATE MARKETING documented as of this encounter Care Teams Chemist Assistant Relationship Specialty Start Date End Date Radha Cowan MD [address] [facility] [address] [place] [phone] PCP - General Family Practice 10/24/20 documented as of this encounter
--- OUTSIDE RECORDS SUMMARY | 2025-05-30 09:37 | XMS_ITS | Encounter Summary ---
Author Organization [facility] Address [address] [place] [address] Care Team Providers Care Umbrella Tipper Machine Name Role Phone Radha Cowan MD Primary Care Provider +1- [phone] Encounter Details Date Type Department Care Team (Latest Contact Info) Description 05/10/2002 Outpatient Historical [facility] Corey Burkett, Augusto Tang MD [address] [place] [phone] ANEMIA NOS (Primary Dx); EDEMA; DIABETES UNCOMPL ADULT-TYPE II (CMS/HCC); CHRONIC AIRWAY OBSTRUCTION NEC ([facility]) Social History Tobacco Use Types Packs/Day Years Used Date Smoking Tobacco: Never Assessed Comments Unknown Sex and Gender Information Value Date Recorded Sex Assigned at Not on file Legal Sex Female 3:33 AM SAFETY ADVISOR Gender Identity Not on file Sexual [...] R/O COVID-19 07/25/2020 07/25/2020 07/27/2020 5:01 AM SAFETY ADVISOR R/O COVID-19 09/30/2020 09/30/2020 09/30/2020 7:23 PM SAFETY ADVISOR documented as of this encounter Care Teams Umbrella Tipper Machine Relationship Specialty Start Date End Date Radha Cowan MD [address] [phone] PCP - General Family Practice 10/24/20 documented as of this encounter
--- OUTSIDE RECORDS SUMMARY | 2025-05-30 09:37 | XMS_ITS | Encounter Summary ---
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 Social History Tobacco Use Types Packs/Day Years Used Date Smoking Tobacco: Never Assessed Comments Unknown Sex and Gender Information Value Date Recorded Sex Assigned at Not on file Legal Sex Female 3:33 AM TREASURY MANAGER Gender Identity Not on file Sexual [...] R/O COVID-19 07/25/2020 07/25/2020 07/27/2020 5:01 AM TREASURY MANAGER R/O COVID-19 09/30/2020 09/30/2020 09/30/2020 7:23 PM TREASURY MANAGER documented as of this encounter Care Teams Retail Business Analyst Relationship Specialty Start Date End Date Radha Cowan MD [address] [phone] PCP - General Family Practice 10/24/20 documented as of this encounter
--- OUTSIDE RECORDS SUMMARY | 2025-05-30 09:37 | XMS_ITS | Encounter Summary ---
Author Organization [facility] Address [address] [place] [address] Care Team Providers Care Hydro Technician Name Role Phone Radha Cowan MD Primary Care Provider Encounter Details Date Type Department Care Team (Latest Contact Info) Description 06/30/2002 Outpatient Historical [facility] Corey Burkett, Augusto Tang MD [address] [place] [phone] DIABETES UNCOMPL ADULT-TYPE II (CMS/HCC) (Primary Dx); RENAL & URETERAL DIS NOS; HYPERTENSION NOS; HYPERLIPIDEMIA NEC/NOS Social History Tobacco Use Types Packs/Day Years Used Date Smoking Tobacco: Never Assessed Comments Unknown Sex and Gender Information Value Date Recorded Sex Assigned at Not on file Legal Sex Female 3:33 AM BODY SHOP FLOORPERSON Gender Identity Not on file Sexual Orientation [...] 07/25/2020 07/25/2020 07/27/2020 5:01 AM BODY SHOP FLOORPERSON R/O COVID-19 09/30/2020 09/30/2020 09/30/2020 7:23 PM BODY SHOP FLOORPERSON documented as of this encounter Care Teams Hydro Technician Relationship Specialty Start Date End Date Radha Cowan MD [address] [phone] PCP - General Family Practice 10/24/20 documented as of this encounter
--- OUTSIDE RECORDS SUMMARY | 2025-05-30 09:37 | XMS_ITS | Encounter Summary ---
Author Organization [facility] Address [address] [place] [address] Care Team Providers Care Dry Box Operator Name Role Phone Radha Cowan MD Primary Care Provider [phone]- [phone] Encounter Details Date Type Department Care Team (Latest Contact Info) Description 12/05/2001 Outpatient Historical [facility] Augusto Nicole Jr., MD [address] [place] [phone] HYPERLIPIDEMIA NEC/NOS (Primary Dx) Social History Tobacco Use Types Packs/Day Years Used Date Smoking Tobacco: Never Assessed Comments Unknown Sex and Gender Information Value Date Recorded Sex Assigned at Not on file Legal Sex Female 3:33 AM DRILLING PLANT OPERATOR Gender Identity Not on file [...] COVID-19 07/25/2020 07/25/2020 07/27/2020 5:01 AM DRILLING PLANT OPERATOR R/O COVID-19 09/30/2020 09/30/2020 09/30/2020 7:23 PM DRILLING PLANT OPERATOR documented as of this encounter Care Teams Dry Box Operator Relationship Specialty Start Date End Date Radha Cowan MD [address] [place] [address] PCP - General Family Practice 10/24/20 documented as of this encounter
--- OUTSIDE RECORDS SUMMARY | 2025-05-30 09:37 | XMS_ITS | Encounter Summary ---
Author Organization [facility] Address [address] Charlesn: [place] [address] Care Team Providers Care Darkroom Technician Name Role Phone Radha Cowan MD Primary Care Provider +1- [phone] Encounter Details Date Type Department Care Team (Late st Contact Info) Description 10/13/2001 Outpatient Historical Augusto Nicole Jr., MD [address] [place] [phone] Social History Tobacco Use Types Packs/Day Years Used Date Smoking Tobacco: Never Assessed Comments Unknown Sex and Gender Information Value Date Recorded Sex Assigned at Not on file Legal Sex Female 3:33 AM CARE PROCESS MANAGER Gender Identity Not on file Sexual Orientation Not on file documented as of this encounter Plan of Treatment Not on file documented as of this encounter Visit Diagnoses Not on filedocumented in this encounter Additional Health Concerns Infection Onset Date Last Indicated Resolved Time R/O COVID-19 05/16/2020 05/16/2020 05/18/2020 12:3 1 AM CDT R/O COVID-19 07/25/2020 07/25/2020 07/27/2020 5:01 AM CARE PROCESS MANAGER R/O COVID-19 09/30/2020 09/30/2020 09/30/2020 7:23 PM CARE PROCESS MANAGER documented as of this encounter Care Teams Darkroom Technician Relationship Specialty Start Date End Date Radha Cowan MD [address] [place] [phone] PCP - General Family Practice 10/24/20 documented as of this encounter
--- OUTSIDE RECORDS SUMMARY | 2025-05-30 09:37 | XMS_ITS | Encounter Summary ---
Author Organization [facility] Address [address] [place] [address] Care Team Providers Care Entry Specialists Name Role Phone Radha Cowan MD Primary Care Provider Encounter Details Date Type Department Care Team (Latest Contact Info) Description 08/11/2002 Outpatient Historical [facility] Corey Burkett, Augusto Tang MD [address] [place] [phone] DIABETES UNCOMPL ADULT-TYPE II (CMS/HCC) (Primary Dx); DERMATOPHYTOSIS OF NAIL; ANEMIA NOS; VACCINE FOR INFLUENZA Social History Tobacco Use Types Packs/Day Years Used Date Smoking Tobacco: Never Assessed Comments Unknown Sex and Gender Information Value Date Recorded Sex Assigned at Not on file Legal Sex Female 3:33 AM PHYSICIAN'S AIDE Gender Identity Not on file Sexual Orientation [...] R/O COVID-19 07/25/2020 07/25/2020 07/27/2020 5:01 AM PHYSICIAN'S AIDE R/O COVID-19 09/30/2020 09/30/2020 09/30/2020 7:23 PM PHYSICIAN'S AIDE documented as of this encounter Care Teams Entry Specialists Relationship Specialty Start Date End Date Radha Cowan MD [address] [phone] PCP - General Family Practice 10/24/20 documented as of this encounter
--- OUTSIDE RECORDS SUMMARY | 2025-05-30 09:37 | XMS_ITS | Encounter Summary ---
Author Organization [facility] Address [address] [place] [address] Care Team Providers Care Laborer High Density Press Name Role Phone Radha Cowan MD Primary Care Provider Encounter Details Date Type Department Care Team (Latest Contact Info) Description 12/14/2002 Outpatient Historical [facility] Augusto Nicole Jr., MD [address] [place] [phone] DIABETES UNCOMPL ADULT-TYPE II ([facility]) (Primary Dx); ACUTE SINUSITIS NOS; PULMONARY EOSINOPHILIA Social History Tobacco Use Types Packs/Day Years Used Date Smoking Tobacco: Never Assessed Comments Unknown Sex and Gender Information Value Date Recorded Sex Assigned at Not on file Legal Sex Female 3:33 AM UNCRATER Gender Identity Not on file Sexual Orientation [...] R/O COVID-19 07/25/2020 07/25/2020 07/27/2020 5:01 AM UNCRATER R/O COVID-19 09/30/2020 09/30/2020 09/30/2020 7:23 PM UNCRATER documented as of this encounter Care Teams Laborer High Density Press Relationship Specialty Start Date End Date Radha Cowan MD [address] [phone] PCP - General Family Practice 10/24/20 documented as of this encounter
--- OUTSIDE RECORDS SUMMARY | 2025-05-30 09:37 | XMS_ITS | Encounter Summary ---
Author Organization [facility] Address [address] [place] [address] Care Team Providers Care Floorworker Distributor Name Role Phone Radha Cowan MD Primary Care Provider Encounter Details Date Type Department Care Team (Late st Contact Info) Description 02/19/2003 Outpatient Historical [facility] Augusto Nicole Jr., MD [address] [place] [phone] DIABETES UNCOMPL ADULT-TYPE II (CMS/HCC) (Primary Dx) Social History Tobacco Use Types Packs/Day Years Used Date Smoking Tobacco: Never Assessed Comments Unknown Sex and Gender Information Value Date Recorded Sex Assigned at Not on file Legal Sex Female 3:33 AM CASTING REPAIRER Gender Identity Not on file Sexual [...] R/O COVID-19 07/25/2020 07/25/2020 07/27/2020 5:01 AM CASTING REPAIRER R/O COVID-19 09/30/2020 09/30/2020 09/30/2020 7:23 PM CASTING REPAIRER documented as of this encounter Care Teams Floorworker Distributor Relationship Specialty Start Date End Date Radha Cowan MD [address] [phone] PCP - General Family Practice 10/24/20 documented as of this encounter
--- OUTSIDE RECORDS SUMMARY | 2025-05-30 09:37 | XMS_ITS | Encounter Summary ---
Author Organization [facility] Address [address] [place] [address] Care Team Providers Care Shore Hand Dredge Or Barge Name Role Phone Radha Cowan MD Primary Care Provider [phone] Encounter Details Date Type Department Care Team (Latest Contact Info) Description 02/16/2002 Outpatient Historical [facility] Augusto Nicole Jr., MD [address] [place] [phone] ANEMIA NOS (Primary Dx) Social History Tobacco Use Types Packs/Day Years Used Date Smoking Tobacco: Never Assessed Comments Unknown Sex and Gender Information Value Date Recorded Sex Assigned at Not on file Legal Sex Female 3:33 AM CHEMICAL DEPENDENCY NURSE Gender Identity Not on file Sexual [...] COVID-19 07/25/2020 07/25/2020 07/27/2020 5:01 AM CHEMICAL DEPENDENCY NURSE R/O COVID-19 09/30/2020 09/30/2020 09/30/2020 7:23 PM CHEMICAL DEPENDENCY NURSE documented as of this encounter Care Teams Shore Hand Dredge Or Barge Relationship Specialty Start Date End Date Radha Cowan MD [address] [place] [phone] PCP - General Family Practice 10/24/20 documented as of this encounter
[2025-05-30 10:08] LABS: Hematocrit 35.7 % (36-47); Hemoglobin 11.20 g/dL (11.27-16.99); Mean Corpuscular HGB Conc 31.4 g/dL (30-55); Mean Corpuscular Hemoglobin 29.8 pg (27-33); Mean Corpuscular Volume 94.9 fl (85-98); Nucleated Red Blood Cells % 0 %; Platelet Count 61 10^3/cmm (157-399); Red Blood Count 3.76 10^6/uL (3.85-5.65)
[2025-05-30 10:09] LABS: Glucose Urine UA Negative (Normal); Nitrate Urine Negative (Negative); Specific Gravity, Urine 1.010 (1.005-1.030)
[2025-05-30 10:11] LABS: Add Urine Microscopic? YES
--- NOTE | 2025-05-30 10:19 | W.ED.SOB ---
HPI - SOB/Dyspnea General: Chief Complaint: Shortness of Breath/Dyspnea Stated Complaint: sob, R side back pain, bp issues Time Seen by Provider: 05/30/25 09:35 History of Present Illness: HPI Narrative: 70-year-old female presents emergency room complaining of some shortness of breath primarily her biggest complaint right now she states she has pain between her right flank and her right shoulder blade. It is worse when she takes a deep breath. She is normally been on 5 L/min but here she is satting 97% on 3 L. She has a chronic cough that remains unchanged no hemoptysis. She is currently receiving chemotherapy her last treatment was 5 days ago. She has had neutropenia associated with that she has also developed so stocking peripheral neuropathies bilaterally of her feet. No chest pain no abdominal pain she has noticed a little bit of pink tinge to her urine but no dysuria urgency or frequency she denies fever Associated symptoms: Deny abdominal pain, chest pain or fever(s) Related Data Home Medications ?Medication ?Instructions ?Recorded ?Confirmed insulin lispro 100 unit/mL See Rx Instructions SUBCUT TID PRN 08/02/23 05/30/25 subcutaneous pen (Humalog KwikPen blood sugar (U-100) Insulin) dulaglutide 3 mg/0.5 mL 3 mg SUBCUT Q7D 03/22/24 05/30/25 subcutaneous pen [facility] ([facility] levothyroxine 25 mcg tablet 25 mcg PO QAM 03/22/24 05/30/25 doxepin 25 mg capsule 50 mg PO BEDTIME 05/29/24 05/30/25 latanoprost 0.005 % eye drops 1 drp ophthalmic (eye) BEDTIME 05/29/24 05/30/25 venlafaxine 150 mg 150 mg PO DAILY 11/14/24 05/30/25 capsule,extended release 24 hr magnesium hydroxide 400 mg/5 mL 30 ml PO Q2H PRN Constipation 02/05/25 05/30/25 oral suspension (Dulcolax (magnesium hydroxide)) ubrogepant 50 mg tablet 50 mg PO 1XD PRN Migraine Headache 02/05/25 05/30/25 arformoterol 15 mcg/2 mL solution 2 ml inhalation DAILY 02/19/25 05/30/25 for nebulization cholecalciferol (vitamin D3) 125 125 mcg PO DAILY 02/19/25 05/30/25 mcg (5,000 unit) capsule loratadine 10 mg capsule (Allergy 10 mg PO DAILY 02/19/25 05/30/25 Relief (loratadine)) bumetanide 1 mg tablet 1 mg PO DAILY 05/24/25 05/30/25 aspirin 81 mg tablet,delayed 81 mg PO DAILY 05/30/25 05/30/25 release lactulose 10 gram/15 mL oral See Rx Instructions .Route 05/30/25 05/30/25 solution .COMPLEX PRN constipation ondansetron HCl 4 mg tablet 4 mg PO Q6H PRN Nausea And Vomiting 05/30/25 05/30/25 prednisone 20 mg tablet See Rx Instructions .Route .COMPLEX 05/30/25 05/30/25 prochlorperazine maleate 10 mg 10 mg PO Q4H PRN mild nausea 05/30/25 05/30/25 tablet Previous Rx's ?Medication ?Instructions ?Recorded pantoprazole 40 mg tablet,delayed 40 mg PO BID #180 tabs 02/06/25 release albuterol sulfate 90 mcg/actuation 2 inh inhalation Q4H PRN shortness 05/21/25 aerosol inhaler of breath or wheezing #6.7 grams benzonatate 200 mg capsule 200 mg PO TID PRN cough #30 caps 05/21/25 atorvastatin 10 mg tablet 10 mg PO DAILY 90 days #90 tabs 05/24/25 metoprolol tartrate 25 mg tablet 25 mg PO DAILY 90 days #90 tabs 05/24/25 gabapentin 300 mg capsule 300 mg PO BID #60 caps 05/28/25 Allergies Allergy/AdvReac Type Severity Reaction Status Date / Time codeine Allergy Unknown ADR-Nausea Verified 05/30/25 09:40 adhesive tape Allergy ALGY-Bliste Verified 05/30/25 09:40 r ketorolac (From Toradol) Allergy Unknown Verified 05/30/25 09:40 melatonin Allergy ADR-Nausea Verified 05/30/25 09:40 Review of Systems Const: Denies: fever(s) or chills Card: Denies: chest pain Resp: Denies: dyspnea GI: Denies: abdominal pain : Denies: dysuria, urinary frequency or urinary urgency Musc: Denies: neck pain or back pain Skin/Breast: Denies: rash PFSH ED PFSH: Medical History Chemotherapy induced neutropenia History of cataract cataract left eye 09/20 right eye 12/20 Chronic constipation 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 Pleuritic chest pain Chronic hypoxemic respiratory failure Small cell lung cancer Nicotine use disorder PTSD (post-traumatic stress disorder) Bipolar disorder current episode depressed History of attempted suicide Hypothyroidism (acquired) Duodenitis Gastritis Sleep apnea Obesity Bipolar affect, depressed Depression Hypertension Diabetes Oxygen dependent CHF (congestive heart failure) GERD (gastroesophageal reflux disease) COPD (chronic obstructive pulmonary disease) 3L o2 , mild to mod copd responsive to bronchodilator Enrolled in chronic care management Surgical History History of appendectomy H/O colonoscopy with polypectomy H/O esophagogastroduodenoscopy Tubal ligation status S/P cholecystectomy Family History Father Lung cancer Sister Ovarian cancer Mother Diabetes Other CAD (coronary artery disease) Social History Smoking and tobacco/nicotine status: current every day tobacco/nicotine user cigarettes Packs smoked per day: 1 Years cigarettes smoked: 37 [ Other cigarette details: She had quit smoking for 8 months, but then started again.] Alcohol intake: former Year of sobriety/quit date alcohol: 1999 Substance/Drug Use: never Additional social history: She lives alone and states she drives herself to her chemo. She wants full CODE STATUS as discussed today with Fredi Curry MD on 02/05/2025 Adopted: No Caregiver/support person: No Lives independently: No Household members: family Housing: House Current gender identity: Female Physical Exam Const: GENERAL APPEARANCE: cooperative ORIENTATION/CONSCIOUSNESS: Yes awake, Yes oriented to person, Yes oriented to place and Yes oriented to time HENMT: COMMON NORMALS: normocephalic, atraumatic and hearing grossly normal bilaterally HEAD & SCALP: normocephalic and atraumatic Resp: AUSCULTATION: rhonchi and wheezes Cardio: COMMON NORMALS: regular rate, regular rhythm and No murmurs present (Cardio) RATE: regular rate RHYTHM: regular rhythm GI: COMMON NORMALS: Soft to palpation and No hepatosplenomegaly present AUSCULTATION: Yes normoactive bowel sounds PALPATION: Yes Soft to palpation, No Tenderness to palpation present (GI), No Guarding due to palpation present (GI) and Yes No hepatosplenomegaly present Extremity: COMMON NORMALS: normal to inspection, capillary refill normal, no clubbing, cyanosis or edema, no calf tenderness and no pedal edema Neuro: SENSORIUM/ORIENTATION: Yes oriented to person, Yes oriented to place and Yes oriented to time Skin: COMMON NORMALS: no rashes or lesions noted GENERAL SKIN EXAM: no rashes or lesions noted Course Vital Signs: Vital signs: Vital Signs Temperature 98.3 F 05/30/25 09:30 Pulse Rate 111 H 05/30/25 15:32 Respiratory Rate 22 H 05/30/25 14:36 Blood Pressure 117/71 05/30/25 15:32 Pulse Oximetry 98 05/30/25 15:32 Oxygen Delivery Me thod Nasal Cannula 05/30/25 13:00 Oxygen Flow Rate 3 05/30/25 13:00 MDM - SOB/Dyspnea Medical Decision Making Pancytopenia with neutropenia secondary to chemotherapy she has evidence of pneumonia on CT no PE will admit to start broad-spectrum antibiotics lactate was normal patient given a fluid bolus due to tachycardia discussed with patient she has significant shortness of breath with exertion. Also aggressively use nebulizers continue steroids discussed with hospitalist orders written Medical Records I reviewed the patient's medical records. Lab Data I reviewed the patient's lab results. 05/30/25 09:55 05/30/25 09:55 Labs/Radiology: Radiology Impressions Chest X-Ray 05/30/25 11:19 IMPRESSION: 1. Atelectasis and masslike density at the right hilum unchanged. No acute infiltrate or other new finding. Chest CTA 05/30/25 12:09 IMPRESSION: 1. No evidence of pulmonary embolus. 2. Large RIGHT hilar and upper lobe mass similar to previous with slightly improved postobstructive pneumonia today. 3. Persistent encasement and severe narrowing of the RIGHT mainstem bronchus. Volume loss RIGHT lung. 4. Contrast reflux into the hepatic veins can be seen with RIGHT heart dysfunction 5. No other significant changes. Laboratory Results WBC 0.73 10^3/uL (3.29-11.43) L* 05/30/25 09:55 RBC 3.76 10^6/uL (3.85-5.65) L 05/30/25 09:55 Hgb 11.20 g/dL (11.27-16.99) L 05/30/25 09:55 Hct 35.7 % (36-47) L 05/30/25 09:55 MCV 94.9 fl (85-98) 05/30/25 09:55 MCH 29.8 pg (27-33) 05/30/25 09:55 MCHC 31.4 g/dL (30-55) 05/30/25 09:55 RDW 15.0 % (12.1-15.1) 05/30/25 09:55 Plt Count 61 10^3/cmm (157-399) L 05/30/25 09:55 MPV 9.5 fL (7.4-10.4) 05/30/25 09:55 Neut % (Auto) 20.6 % 05/30/25 09:55 Lymph % (Auto) 61.6 % 05/30/25 09:55 [place] % (Auto) 5.5 % 05/30/25 09:55 Eos % (Auto) 1.4 % 05/30/25 09:55 Baso % (Auto) 2.7 % 05/30/25 09:55 Neut # (Auto) 0.15 10^3/uL (1.8-7.7) L* 05/30/25 09:55 Lymph # (Auto) 0.5 10^3/uL (0.8-4.8) L 05/30/25 09:55 [place] # (Auto) 0.0 10^3/uL (0.2-0.9) L 05/30/25 09:55 Eos # (Auto) 0.0 10^3/uL (0.0-0.8) 05/30/25 09:55 Baso # (Auto) 0.0 10^3/uL (0.0-0.1) 05/30/25 09:55 Nucleated RBC % (auto) 0 % 05/30/25 09:55 Nucleated RBCs # 0.0 /100WBC 05/30/25 09:55 Sodium 136 mmol/L (136-145) 05/30/25 09:55 Potassium 4.4 mmol/L (3.5-5.1) 05/30/25 09:55 Chloride 99 mmol/L (98-107) 05/30/25 09:55 Carbon Dioxide 27 mmol/L (22-29) 05/30/25 09:55 Anion Gap 14.4 (5-19) 05/30/25 09:55 BUN 27 mg/dL (8-23) H 05/30/25 09:55 Creatinine 0.7 mg/dL (0.5-0.9) 05/30/25 09:55 GFR Calculation 83.0 mL/min (90-130) L 05/30/25 09:55 Glucose 137 mg/dL (65-115) H 05/30/25 09:55 Calculated Osmolality 289 mOsm/kg (285-295) 05/30/25 09:55 Lactic Acid 1.9 mmol/L (0.5-2.2) 05/30/25 11:46 Calcium 8.9 mg/dL (8.5-10.5) 05/30/25 09:55 Total Bilirubin 0.7 mg/dL (0.15-1.2) 05/30/25 09:55 AST 5 U/L (0-32) 05/30/25 09:55 ALT 11 U/L (0-33) 05/30/25 09:55 Alkaline Phosphatase 83 U/L (35-105) 05/30/25 09:55 Troponin T Baseline 11 ng/L (0-10) H 05/30/25 09:55 Troponin T 120 Minute 10.31 ng/L (0-10) H 05/30/25 11:46 Delta Troponin T -0.69 ABS# (0-10) L 05/30/25 11:46 Total Protein 6.2 g/dL (6.6-8.7) L 05/30/25 09:55 Albumin 3.5 g/dL (3.5-5.2) 05/30/25 09:55 Globulin 2.7 g/dL (1.3-4.6) 05/30/25 09:55 Urine Color [place] (Yellow) A 05/30/25 09:52 Urine Appearance Clear (CLEAR) 05/30/25 09:52 Urine pH 7.0 (5-7) 05/30/25 09:52 Ur Specific [place] 1.010 (1.005-1.030) 05/30/25 09:52 Urine Protein Negative (Negative) 05/30/25 09:52 Urine Glucose (UA) Negative (Normal) 05/30/25 09:52 Urine Ketones Negative (Negative) 05/30/25 09:52 Urine Blood Negative (Negative) 05/30/25 09:52 Urine Nitrate Negative (Negative) 05/30/25 09:52 Urine Bilirubin Negative (Negative) 05/30/25 09:52 Urine Urobilinogen 1.0 mg/dL (Negative) 05/30/25 09:52 Ur Leukocyte Esterase Negative (Negative) 05/30/25 09:52 Urine RBC 0-2 /hpf (0-2) 05/30/25 09:52 Urine WBC 0-5 /hpf (0-5) 05/30/25 09:52 Ur Squamous Epith Cells 0-5 /hpf (0-5) 05/30/25 09:52 Amorphous Sediment Not Reportable 05/30/25 09:52 Urine Bacteria None seen /hpf (NONE) 05/30/25 09:52 Hyaline Casts 1.21 /lpf 05/30/25 09:52 All radiology interpretation(s) finalized by discharge EKG Data EKG 1: Interpretation: EKG 05/30/2025 9:34 AM. Sinus tachycardia right bundle branch block rate of 106 DC interval 126 QTc [address] changes noted. EKG compared to April 23, 2025 rate is increased no other significant changes right bundle branch block present previously EKG 2: Interpretation: EKG 05/30/2025 11:12 AM sinus rhythm right bundle branch block rate of 97 DC interval 130 QTc 477. 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
[2025-05-30 10:24] LABS: Troponin(5th) Baseline 11 ng/L (0-10)
[2025-05-30 10:31] LABS: Alanine Aminotransferase 11 U/L (0-33); Albumin Level 3.5 g/dL (3.5-5.2); Alkaline Phosphatase 83 U/L (35-105); Anion Gap 14.4 (5-19); Aspartate Amino Transferase 5 U/L (0-32); Blood Urea Nitrogen 27 mg/dL (8-23); Calcium 8.9 mg/dL (8.5-10.5); Carbon Dioxide 27 mmol/L (22-29); Chloride 99 mmol/L (98-107); Creatinine Clr Calc Pharmacy 72.8617; Globulin 2.7 g/dL (1.3-4.6); Glucose 137 mg/dL (65-115); Osmolality Calculated 289 mOsm/kg (285-295); Potassium 4.4 mmol/L (3.5-5.1); Sodium 136 mmol/L (136-145); Total Protein 6.2 g/dL (6.6-8.7)
[2025-05-30] MEDS: ondansetron 2 mg/ML SDV 2 mL 4 MG IVP (10:41)
[2025-05-30] MEDS: morphine 4 mg/mL SDV 1 mL IVP (10:42)
[2025-05-30 10:45] LABS: Slide Review Slide Review Perform
[2025-05-30 10:46] LABS: White Blood Count 0.73 10^3/uL (3.29-11.43)
--- NOTE | 2025-05-30 11:12 | ECG_ITS ---
[facility] 2025-[facility]30 Pat Name: Marli Eli Department: Room: Gender: Female Cost Reduction Engineer: : 1955 Requested By: Carlos Toribio Order Number: [id number] Delgado MD: Bruno Franks M.D. Measurements Intervals [place] Rate: 97 P: 69 CT: 130 QRS: 87 QRSD: 133 T: 60 QT: 374 QTc: 477 Interpretive Statements SINUS RHYTHM RIGHT BUNDLE BRANCH BLOCK [120+ ms QRS DURATION, UPRIGHT V1, 40+ ms S IN I/aVL/V4/V5/V6] Compared to ECG 05/30/2025 09:34:50 NO SIGNIFICANT CHANGE Electronically Signed On 05-30-2025 22:31:19 CDT by Bruno Franks M.D. [email or web address]
--- NOTE | 2025-05-30 11:19 | XR_ITS ---
WS: [id number] Exam: XR chest 1V portable [id number] Date/Time of Exam: 05/30/2025 11:21 AM Reason For Exam: dyspnea/cough Comparison 05/21/2025. Again noted is atelectasis and masslike density at the RIGHT hilar region. This is unchanged and apparently represents known malignancy. The lungs are otherwise clear. No pneumothorax or pleural effusion. A left-sided port ends in the region of the RIGHT atrium. Heart size top limits normal. The mediastinum is unremarkable for technique. Bony structures are intact. XR/XR chest 1V portable [id number] IMPRESSION: 1. Atelectasis and masslike density at the right hilum unchanged. No acute infi ltrate or other new finding.
--- NOTE | 2025-05-30 12:09 | CT_ITS ---
WS: [id number] CTA OF THE CHEST WITH PULMONARY EMBOLISM PROTOCOL TECHNIQUE: High-resolution contrast enhanced CTA of the chest with coronal and sagittal reformatted images with pulmonary embolism protocol. MIP images are also reviewed. CLINICAL INFORMATION: Dyspnea tachypnea tachycardia history lung cancer COMPARISON: 05/21/2025 DLP: 473.[address] scans at [facility] use at least one of these dose optimization techniques: automated exposure control; mA and/or kV adjustment per patient size (includes targeted exams where dose is matched to clinical indication); or iterative reconstruction. FINDINGS: Proximal main pulmonary arteries are normal. No evidence of pulmonary embolus. RIGHT hilar mass encases the associated RIGHT pulmonary arteries unchanged Similar appearing RIGHT upper lung mass compatible with known history of carcinoma. Slightly improved aeration of the RIGHT upper lung today. RIGHT upper lobe mass encases the RIGHT hilum with severe narrowing of the RIGHT proximal mainstem bronchus similar to the prior studies. Elements of postobstructive RIGHT upper lobe pneumonia although improved compared to 05/21/2025. Associated consolidation in the RIGHT upper lobe posterior medially. Contrast reflux into the hepatic veins can be seen with RIGHT heart dysfunction. Small esophageal hiatal hernia. Prior cholecystectomy. Thickening of the LEFT adrenal gland. CT/CT angio chest PE protcl [id number] IMPRESSION: 1. No evidence of pulmonary embolus. 2. Large RIGHT hilar and upper lobe mass similar to previous with slightly imp roved postobstructive pneumonia today. 3. Persistent encasement and severe narrowing of the RIGHT mainstem bronchus. Volume loss RIGHT lung. 4. Contrast reflux into the hepatic veins can be seen with RIGHT heart dysfunc tion 5. No other significant changes.
[2025-05-30 12:19] LABS: Troponin 5 2HR 10.31 ng/L (0-10)
[2025-05-30 12:20] LABS: Troponin 5 2HR Delta -0.69 ABS# (0-10)
[2025-05-30] MEDS: iohexol 350 mg/mL 500 mL Btl (per mL) IV (12:26)
[2025-05-30] MEDS: piperacillin-tazobactam 3.375 GM in sodium chloride 0.9% (plus) 50 ML IV ×2 (13:38→20:50)
[2025-05-30 13:56] LABS: Lactic Sepsis W/Reflex 1.9 mmol/L (0.5-2.2)
--- NOTE | 2025-05-30 15:36 | ECG_ITS ---
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 Measurements Intervals [place] Rate: 114 P: 72 [place]: 128 QRS: 74 QRSD: 130 T: 40 QT: 330 QTc: 455 Interpretive Statements SINUS TACHYCARDIA INDETERMINATE AXIS RIGHT BUNDLE BRANCH BLOCK [120+ ms QRS DURATION, UPRIGHT V1, 40+ ms S IN I/aVL/V4/V5/V6] Compared to ECG 05/30/2025 11:12:20 NO SIGNIFICANT CHANGE Electronically Signed On 05-30-2025 22:37:16 CDT by Bruno Franks M.D. [email or web address]
--- NOTE | 2025-05-30 15:50 | PM.HP ---
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, on concurrent chemoradiation and PCI, history of whole brain irradiation for brain mets, who presents [facility] due to cough, shortness of breath, wheezing, patient is currently alert oriented x 3, following commands, she reports increased shortness of of breath, shortness of breath with exertion, wheezing, coughing, pleurisy, she also complains of right flank pain her last dose of chemotherapy was roughly 5 days ago, Review of Systems Const: Reports: fatigue and malaise; Denies: fever(s) or chills Card: Denies: chest pain Resp: Reports: dyspnea and non-productive cough : Reports: flank pain Neuro: Denies: headache(s) Medications/Allergies Home Medications ?Medication ?Instructions ?Recorded ?Confirmed ?Last Taken ?Type insulin lispro 100 unit/mL See Rx Instructions SUBCUT TID PRN 08/02/23 05/30/25 02/04/25 08:00 History subcutaneous pen (Humalog KwikPen blood sugar (U-100) Insulin) dulaglutide 3 mg/0.5 mL 3 mg SUBCUT Q7D 03/22/24 05/30/25 05/24/25 History subcutaneous pen injector (Trulicity) levothyroxine 25 mcg tablet 25 mcg PO QAM 03/22/24 05/30/25 05/30/25 History doxepin 25 mg capsule 50 mg PO BEDTIME 05/29/24 05/30/25 05/29/25 History latanoprost 0.005 % eye drops 1 drp ophthalmic (eye) BEDTIME 05/29/24 05/30/25 05/29/25 History venlafaxine 150 mg 150 mg PO DAILY 11/14/24 05/30/25 05/30/25 History capsule,extended release 24 hr magnesium hydroxide 400 mg/5 mL 30 ml PO Q2H PRN Constipation 02/05/25 05/30/25 Unknown History oral suspension (Dulcolax (magnesium hydroxide)) ubrogepant 50 mg tablet 50 mg PO 1XD PRN Migraine Headache 02/05/25 05/30/25 Unknown History pantoprazole 40 mg tablet,delayed 40 mg PO BID #180 tabs 02/06/25 05/30/25 05/30/25 Rx release arformoterol 15 mcg/2 mL solution 2 ml inhalation DAILY 02/19/25 05/30/25 05/30/25 History for nebulization cholecalciferol (vitamin D3) 125 125 mcg PO DAILY 02/19/25 05/30/25 05/30/25 History mcg (5,000 unit) capsule loratadine 10 mg capsule (Allergy 10 mg PO DAILY 02/19/25 05/30/25 05/30/25 History Relief (loratadine)) albuterol sulfate 90 mcg/actuation 2 inh inhalation Q4H PRN shortness 05/21/25 05/30/25 Unknown Rx aerosol inhaler of breath or wheezing #6.7 grams benzonatate 200 mg capsule 200 mg PO TID PRN cough #30 caps 05/21/25 05/30/25 Unknown Rx atorvastatin 10 mg tablet 10 mg PO DAILY 90 days #90 tabs 05/24/25 05/30/25 05/29/25 Rx bumetanide 1 mg tablet 1 mg PO DAILY 05/24/25 05/30/25 05/30/25 History metoprolol tartrate 25 mg tablet 25 mg PO DAILY 90 days #90 tabs 05/24/25 05/30/25 05/30/25 Rx gabapentin 300 mg capsule 300 mg PO BID #60 caps 05/28/25 05/30/25 05/30/25 Rx aspirin 81 mg tablet,delayed 81 mg PO DAILY 05/30/25 05/30/25 05/30/25 History release lactulose 10 gram/15 mL oral See Rx Instructions .Route 05/30/25 05/30/25 Unknown History solution .COMPLEX PRN constipation ondansetron HCl 4 mg tablet 4 mg PO Q6H PRN Nausea And Vomiting 05/30/25 05/30/25 Unknown History prednisone 20 mg tablet See Rx Instructions .Route .COMPLEX 05/30/25 05/30/25 05/30/25 History prochlorperazine maleate 10 mg 10 mg PO Q4H PRN mild nausea 05/30/25 05/30/25 Unknown History tablet Allergies Allergy/AdvReac Type Severity Reaction Status Date / Time codeine Allergy Unknown ADR-Nausea Verified 05/30/25 09:40 adhesive tape Allergy ALGY-Bliste Verified 05/30/25 09:40 r ketorolac (From Toradol) Allergy Unknown Verified 05/30/25 09:40 melatonin Allergy ADR-Nausea Verified 05/30/25 09:40 PFSH Acute PFSH: Medical History Chemotherapy induced neutropenia History of cataract cataract left eye 09/20 right eye 12/20 Chronic constipation 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 Pleuritic chest pain Chronic hypoxemic respiratory failure Small cell lung cancer Nicotine use disorder PTSD (post-traumatic stress disorder) Bipolar disorder current episode depressed History of attempted suicide Hypothyroidism (acquired) Duodenitis Gastritis Sleep apnea Obesity Bipolar affect, depressed Depression Hypertension Diabetes Oxygen dependent CHF (congestive heart failure) GERD (gastroesophageal reflux disease) COPD (chronic obstructive pulmonary disease) 3L o2 , mild to mod copd responsive to bronchodilator Enrolled in chronic care management Surgical History History of appendectomy H/O colonoscopy with polypectomy H/O esophagogastroduodenoscopy Tubal ligation status S/P cholecystectomy Family History Father Lung cancer Sister Ovarian cancer Mother Diabetes Other CAD (coronary artery disease) Social History Smoking and tobacco/nicotine status: current every day tobacco/nicotine user cigarettes Packs smoked per day: 1 Years cigarettes smoked: 37 [ Other cigarette details: She had quit smoking for 8 months, but then started again.] Alcohol intake: former Year of sobriety/quit date alcohol: 1999 Substance/Drug Use: never Additional social history: She lives alone and states she drives herself to her chemo. She wants full CODE STATUS as discussed today with Fredi Curry MD on 02/05/2025 Adopted: No Caregiver/support person: No Lives independently: No Household members: family Housing: House Current gender identity: Female Vitals/I&O/Wt Last Vital Signs Temp 98.3 F 05/30/25 09:30 Pulse 111 H 05/30/25 15:32 Resp 22 H 05/30/25 14:36 BP 117/71 05/30/25 15:32 Pulse Ox 98 05/30/25 15:32 O2 Del Method Nasal Cannula 05/30/25 13:00 O2 Flow Rate 3 05/30/25 13:00 05/30/25 05/30/25 05/30/25 06:59 14:59 22:59 Intake Total 50 / 50 Balance 50 / 50 Weight last 48 hrs Weight 95.254 kg Physical Exam Const: COMMON NORMALS: no acute distress and patient oriented x3 HENMT: COMMON NORMALS: normocephalic HEAD & SCALP: normocephalic Eye: COMMON NORMALS: Equal, round and reactive pupils present Neck/C-Spine: COMMON NORMALS: no JVD Resp: COMMON NORMALS: normal respiratory effort, No retractions and No use of accessory muscles AUSCULTATION: crackles and wheezes OTHER: Left chest port placed, has tachypnea Cardio: COMMON NORMALS: no JVD, regular rate, regular rhythm, S1 normal heart sound present and S2 normal heart sound present RATE: regular rate RHYTHM: regular rhythm HEART SOUNDS: S1 normal heart sound present and S2 normal heart sound present GI: COMMON NORMALS: Normal to inspection, nondistended, normoactive bowel sounds present, Soft to palpation and non-tender Extremity: COMMON NORMALS: no calf tenderness and no pedal edema Neuro: COMMON NORMALS: patient oriented x3, CN's II-XII intact bilaterally and moves all extremities Psych: COMMON NORMALS: mental status grossly normal Data 05/30/25 09:55 05/30/25 09:55 Micro: Microbiology 05/30/25 11:46 Blood Culture - Preliminary Blood SPECIMEN COLLECTED 05/30/25 09:55 Blood Culture - Preliminary Blood SPECIMEN COLLECTED A&P Assessment and plan 1. Neutropenia: 2. Chemotherapy induced neutropenia: 3. Pneumonia: 4. Sepsis: 5. Acute hypoxic respiratory failure: 6. Immunocompromised state: 7. Thrombocytopenia: 8. COPD exacerbation: Plan: Sepsis - Sepsis features met given wheezing, shortness of breath, tachypnea - Neutropenia - Source of infection pneumonia Acute hypoxic respiratory failure - History of immunocompromise state, on chemotherapy, neutropenia - Secondary to COPD exacerbation - Secondary to pneumonia CT/CT angio chest PE protcl [id number] IMPRESSION: 1. No evidence of pulmonary embolus. 2. Large RIGHT hilar and upper lobe mass similar to previous with slightly improved postobstructive pneumonia today. 3. Persistent encasement and severe narrowing of the RIGHT mainstem bronchus. Volume loss RIGHT lung. 4. Contrast reflux into the hepatic veins can be seen with RIGHT heart dysfunction 5. No other significant changes. Plan - Solu-Medrol 125 mg IV push once - Solu-Medrol 40 mg IV push every 8 hours - Vancomycin - Zosyn - Sputum culture - MRSA nares - Full code -Lovenox for DVT prophylaxis COPD, current smoker, smoking cessation counseling Small cell lung cancer -On chemoradiation -History of whole brain radiation CT angio of the chest 3. Persistent encasement and severe narrowing of the RIGHT mainstem bronchus. Volume loss RIGHT lung. - Patient will need to follow-up with pulmonary as outpatient, consideration of bronchial stenting based on clinical progress Thrombocytopenia likely chemotherapy side effect monitor Neutropenia - Component of sepsis, pneumonia, -chemotherapy isolation precautions, neutropenic precautions Full code SCDs, Lovenox for DVT prophylaxis PDMP PDMP Reviewed: Not Reviewed Attestations Medical Necessity Statement*: Patient requires hospitalization, inpatient, greater than 2 midnights, for neutropenia, chemotherapy-induced neutropenia, thrombocytopenia, sepsis, pneumonia, acute hypoxic respiratory failure Coding Level of Care Code Acute Code for Chg Fwd Diagnoses Neutropenia D70.9 Chemotherapy induced neutropenia D70.1; T45.1X5A Pneumonia J18.9 Sepsis A41.9 Acute hypoxic respiratory failure J96.01 Immunocompromised state D84.9 Thrombocytopenia D69.6 COPD exacerbation J44.1 Sepsis Event Note Evaluation Current stage of sepsis: sepsis Possible source: pulmonary Focused Exam Vital Signs Temp Pulse Resp BP Pulse Ox O2 Del Method O2 Flow Rate 05/30/25 15:32 111 H 117/71 98 05/30/25 14:36 111 H 22 H 108/89 05/30/25 13:00 104 H 22 H 100/75 99 Nasal Cannula 3 05/30/25 11:30 102 H 122/75 100 Room Air 05/30/25 10:42 34 H 98 05/30/25 10:10 104 H 24 H 109/76 97 Nasal Cannula 3 05/30/25 09:40 109 H 33 H 116/75 97 Nasal Cannula 5 05/30/25 09:30 98.3 F 106 H 101/67 96 Room Air Respiratory exam: Present wheezes Peripheral pulse strength: 2+ Slightly Diminished Peripheral pulse location: Pedal Skin exam: flushed Date exam was performed: 05/30/25 Time exam was performed: 15:55
[2025-05-30 16:23] LABS: Troponin 5 6HR 9.83 ng/L (0-10)
[2025-05-30 16:25] LABS: Troponin 5 6HR Delta -1.17 ng/L (0-12)
[2025-05-30 16:30] LABS: Procalcitonin 0.11 ng/mL (0-0.5); Thyroid Stimulating Hormone 2.48 uIU/mL (0.27-4.20)
[2025-05-30 16:45] LABS: Cholesterol 122 mg/dL (0-200); HDL Cholesterol 60 mg/dL (60-100); Triglycerides 100 mg/dL (0-150)
[2025-05-30] MEDS: pantoprazole 40 mg SDV IVP (16:52)
[2025-05-30] MEDS: methylPREDNISolone sod succ 125 mg/2 mL INJ IVP (16:53)
[2025-05-30 17:03] LABS: Estmated Average Glucose 134; Hemoglobin A1C 6.3 % (4.0-6.0)
[2025-05-30] MEDS: morphine 4 mg/mL SDV 1 mL 2 MG IVP (17:58)
--- NOTE | 2025-05-30 18:16 | PHA.VACGOAL ---
Vancomycin Goal - Goal Vancomycin Goal:: 15-20 mg/L Vancomycin Indication:: Pneumonia - Therapy Current therapy:: Pip/Tazo Day of therpy:: Day [1]of [] . Actual body weight (kg): 114.124 kg - Data Labs: WBC 0.73 10^3/uL (3.29-11.43) L* 05/30/25 09:55 RBC 3.76 10^6/uL (3.85-5.65) L 05/30/25 09:55 Hgb 11.20 g/dL (11.27-16.99) L 05/30/25 09:55 Hct 35.7 % (36-47) L 05/30/25 09:55 MCV 94.9 fl (85-98) 05/30/25 09:55 MCH 29.8 pg (27-33) 05/30/25 09:55 MCHC 31.4 g/dL (30-55) 05/30/25 09:55 RDW 15.0 % (12.1-15.1) 05/30/25 09:55 Sodium 136 mmol/L (136-145) 05/30/25 09:55 Potassium 4.4 mmol/L (3.5-5.1) 05/30/25 09:55 Chloride 99 mmol/L (98-107) 05/30/25 09:55 Carbon Dioxide 27 mmol/L (22-29) 05/30/25 09:55 Anion Gap 14.4 (5-19) 05/30/25 09:55 BUN 27 mg/dL (8-23) H 05/30/25 09:55 Creatinine 0.7 mg/dL (0.5-0.9) 05/30/25 09:55 GFR Calculation 83.0 mL/min (90-130) L 05/30/25 09:55 Treatment plan:: new consult Regimen:: New start vancomycin for Pneumonia/sepsis. Received 1000 mg of vancomycin in the ER. Started on maintenance dose of 1500 mg q12h.
[2025-05-30 18:34] LABS: MRSA PCR OZH (swab) NOT DETECTED (Not Detecte)
[2025-05-30 19:20] LABS: Coronavirus 229E,HKU1,NL63,OC4 Not Detected (NOT DETECT); Parainfluenza Virus Type 1 Not Detected (NOT DETECT); Parainfluenza Virus Type 2 Not Detected (NOT DETECT); Parainfluenza Virus Type 3 Not Detected (NOT DETECT); Parainfluenza Virus Type 4 Not Detected (NOT DETECT); SARS-COV-2 Not Detected (NOT DETECT)
[2025-05-31] VITALS (21 sets, daily range): BP systolic 94–118; BP diastolic 56–85; PULSE 102–125; RESP 16–98; TEMP 36.3–36.9; O2SAT 92–98; BMI 44.5
[2025-05-31] MEDS: methylPREDNISolone sod succ 40 mg/mL INJ IVP ×3 (04:09→20:57)
[2025-05-31] MEDS: piperacillin-tazobactam 3.375 GM in sodium chloride 0.9% (plus) 50 ML IV ×3 (04:09→19:15)
[2025-05-31 05:11] LABS: Hematocrit 31.1 % (36-47); Hemoglobin 9.90 g/dL (11.27-16.99); Mean Corpuscular HGB Conc 31.8 g/dL (30-55); Mean Corpuscular Hemoglobin 30.3 pg (27-33); Mean Corpuscular Volume 95.1 fl (85-98); Nucleated Red Blood Cells % 0 %; Platelet Count 45 10^3/cmm (157-399); Red Blood Count 3.27 10^6/uL (3.85-5.65); White Blood Count 1.05 10^3/uL (3.29-11.43)
[2025-05-31 05:27] LABS: Alanine Aminotransferase 10 U/L (0-33); Albumin Level 3.3 g/dL (3.5-5.2); Alkaline Phosphatase 79 U/L (35-105); Anion Gap 15.5 (5-19); Aspartate Amino Transferase 5 U/L (0-32); Blood Urea Nitrogen 23 mg/dL (8-23); Calcium 8.9 mg/dL (8.5-10.5); Carbon Dioxide 26 mmol/L (22-29); Chloride 101 mmol/L (98-107); Creatinine Clr Calc Pharmacy 80.7701; Globulin 2.4 g/dL (1.3-4.6); Glucose 201 mg/dL (65-115); Osmolality Calculated 295 mOsm/kg (285-295); Potassium 4.5 mmol/L (3.5-5.1); Sodium 138 mmol/L (136-145); Total Protein 5.7 g/dL (6.6-8.7)
[2025-05-31 05:34] LABS: Slide Review Slide Review Perform
[2025-05-31 05:38] LABS: NT Pro B Type Natriuretic Pept 205 pg/mL (0-125)
[2025-05-31] MEDS: ATORVASTATIN 10 MG TABLET PO (08:39)
[2025-05-31] MEDS: venlafaxine ER (24HR) 150 mg Capsule PO (08:39)
[2025-05-31] MEDS: lactulose oral liq 20 gm/30 mL UDC PO (09:37)
--- NOTE | 2025-05-31 14:50 | P.PN_ITS ---
Subjective 2 Subjective: Patient was seen this morning, currently alert oriented x 3, following all commands, she continues to complain of cough, shortness of breath, wheezing Vitals/I&O/Wt Last Vital Signs Temp 97.9 F 05/31/25 12:44 Pulse 109 H 05/31/25 12:44 Resp 19 H 05/31/25 12:44 BP 103/56 05/31/25 12:44 Pulse Ox 95 05/31/25 12:44 O2 Del Method Nasal Cannula 05/31/25 12:44 O2 Flow Rate 3 05/31/25 11:17 05/30/25 05/31/25 05/31/25 22:59 06:59 14:59 Intake Total 3362 / 3412 384.167 / 3796.167 770 / 770 Output Total 100 / 100 200 / 200 Balance 3262 / 3312 384.167 / 3696.167 570 / 570 Weight last 48 hrs Weight 114.124 kg Weight 114.124 kg Weight 95.254 kg Physical Exam 2 Const: COMMON NORMALS: no acute distress and patient oriented x3 Resp: COMMON NORMALS: normal respiratory effort, No retractions and No use of accessory muscles AUSCULTATION: wheezes Cardio: COMMON NORMALS: regular rate, regular rhythm, S1 normal heart sound present and S2 normal heart sound present RATE: regular rate RHYTHM: r egular rhythm HEART SOUNDS: S1 normal heart sound present and S2 normal heart sound present GI: COMMON NORMALS: Normal to inspection, nondistended, normoactive bowel sounds present and non-tender Extremity: COMMON NORMALS: no pedal edema Neuro: COMMON NORMALS: patient oriented x3 and moves all extremities Psych: COMMON NORMALS: mental status grossly normal Data 05/31/25 04:28 05/31/25 04:28 Micro: Microbiology 05/30/25 11:46 Blood Culture - Preliminary Blood NEGATIVE TO DATE 05/30/25 09:55 Blood Culture - Preliminary Blood NEGATIVE TO DATE 05/30/25 16:45 Sputum Culture - Preliminary Sputum - Expectorated Sputum A&P Assessment and plan 1. Neutropenia: 2. Chemotherapy induced neutropenia: 3. Pneumonia: 4. Sepsis: 5. Acute hypoxic respiratory failure: 6. Immunocompromised state: 7. Thrombocytopenia: 8. COPD exacerbation: 9. Rhinovirus: Plan: Sepsis - Sepsis features met given wheezing, shortness of breath, tachypnea - Neutropenia - Source of infection pneumonia Acute hypoxic respiratory failure - History of immunocompromise state, on chemotherapy, neutropenia - Secondary to COPD exacerbation - Secondary to pneumonia -Rhinovirus infection CT/CT angio chest PE protcl [id number] IMPRESSION: 1. No evidence of pulmonary embolus. 2. Large RIGHT hilar and upper lobe mass similar to previous with slightly improved postobstructive pneumonia today. 3. Persistent encasement and severe narrowing of the RIGHT mainstem bronchus. Volume loss RIGHT lung. 4. Contrast reflux into the hepatic veins can be seen with RIGHT heart dysfunction 5. No other significant changes. Plan - Solu-Medrol 40 mg IV push every 8 hours - Vancomycin - Zosyn - Sputum culture - MRSA nares - Full code -Lovenox for DVT prophylaxis COPD, current smoker, smoking cessation counseling Small cell lung cancer -On chemoradiation -History of whole brain radiation CT angio of the chest 3. Persistent encasement and severe narrowing of the RIGHT mainstem bronchus. Volume loss RIGHT lung. - Patient will need to follow-up with pulmonary as outpatient, consideration of bronchial stenting based on clinical progress Thrombocytopenia likely chemotherapy side effect monitor Neutropenia - Component of sepsis, pneumonia, -chemotherapy isolation precautions, neutropenic precautions - Spoke to hematology, plan 1 dose Neupogen today Anemia, likely chemotherapy associated, monitor Full code SCDs, Lovenox for DVT prophylaxis currently relatively contraindicated given thrombocytopenia and anemia PDMP PDMP Reviewed: Not Reviewed Attestations 2 Medical Necessity Statement*: Patient requires hospitalization for sepsis secondary to pneumonia, with pancytopenia, likely chemotherapy side effect, neutropenia Diagnoses Neutropenia D70.9 Chemotherapy induced neutropenia D70.1; T45.1X5A Pneumonia J18.9 Sepsis A41.9 Acute hypoxic respiratory failure J96.01 Immunocompromised state D84.9 Thrombocytopenia D69.6 COPD exacerbation J44.1 Rhinovirus B34.8
[2025-05-31] MEDS: pantoprazole 40 mg SDV IVP (15:38)
[2025-05-31] MEDS: morphine 4 mg/mL SDV 1 mL 2 MG IVP (15:38)
--- NOTE | 2025-05-31 15:52 | USR_ITS ---
PROCEDURE INFORMATION: Exam: US Retroperitoneal, Complete, Kidneys and Bladder Exam date and time: 05/31/2025 5:44 PM Age: 70 years old Clinical indication: Screening exam; Other: Thanh; Additional info: Thanh, PT eating dinner at 17:40 TECHNIQUE: Imaging protocol: Real-time ultrasound of the retroperitoneum with image documentation. Complete exam focused on the bilateral kidneys and urinary bladder. Total images: 101 COMPARISON: 1. US abdomen limited [id number] 02/05/2025 9:30 AM 2. PT PET skull to thigh SUBS [id number] 05/18/2025 12:08 PM FINDINGS: Limitations: Quality of examination is limited by large patient body habitus. Right kidney: Right kidney measures 8.6 cm longitudinally (132 mL volume). Right renal cortex of normal thickness 1.0 cm. Left kidney: Left kidney, partially obscured by overlying bowel gas, measures 8.5 cm longitudinally (107 mL volume) as visualized. Left renal cortex of normal thickness, 1.1 cm. Urinary bladder: Urinary bladder poorly visualized due to limitations of sonographic penetration (technically degraded study). Liver: Liver is diffusely hyperechoic, consistent with fatty infiltration. No masses identified. Although increased liver echogenicity may limit detection of subtle isoechoic lesions. Pancreas: Pancreas completely obscured by bowel gas. Aorta: Aorta completely obscured by bowel gas. US/US renal BI* [id number] IMPRESSION: 1. No hydronephrosis. 2. Urinary bladder poorly visualized due to limitations of sonographic penetration (technically degraded study). 3. Diffuse hepatic steatosis with no focal hepatic lesions identified. COMMENTS: Quality of examination is limited by large patient body habitus.
[2025-06-01] VITALS (15 sets, daily range): BP systolic 100–126; BP diastolic 63–84; PULSE 93–113; RESP 16–23; TEMP 36.4–37.1; O2SAT 90–99; BMI 242.7
[2025-06-01 01:54] LABS: Bacillus cereus group Not Detected (NOT DETECT); Bacillus subtillis group Not Detected (NOT DETECT); Corynebacterium Not Detected (NOT DETECT); Cutibacterium acnes (P.acnes) Not Detected (NOT DETECT); Enterococcus faecalis Not Detected (NOT DETECT); Enterococcus faecium Not Detected (NOT DETECT); Listeria Not Detected (NOT DETECT); Micrococcus Not Detected (NOT DETECT); Pan Candida Not Detected (NOT DETECT); Pan Gram-Negative Not Detected (NOT DETECT); Staphylococcus epidermidis Detected (NOT DETECT); Staphylococcus lugdunensis Not Detected (NOT DETECT); Staphylococcus species Detected (NOT DETECT); Streptococcus anginosus group Not Detected (NOT DETECT); Streptococcus pyogenes Not Detected (NOT DETECT); Streptococcus species Not Detected (NOT DETECT); mecA Detected (NOT DETECT); mecC Not Detected (NOT DETECT)
[2025-06-01] MEDS: piperacillin-tazobactam 3.375 GM in sodium chloride 0.9% (plus) 50 ML IV ×3 (03:45→20:20)
[2025-06-01] MEDS: methylPREDNISolone sod succ 40 mg/mL INJ IVP ×3 (03:46→20:20)
[2025-06-01 04:03] LABS: Hematocrit 26.1 % (36-47); Hemoglobin 8.50 g/dL (11.27-16.99); Mean Corpuscular HGB Conc 32.6 g/dL (30-55); Mean Corpuscular Hemoglobin 30.8 pg (27-33); Mean Corpuscular Volume 94.6 fl (85-98); Nucleated Red Blood Cells % 0 %; Red Blood Count 2.76 10^6/uL (3.85-5.65); White Blood Count 1.43 10^3/uL (3.29-11.43)
[2025-06-01 04:23] LABS: Alanine Aminotransferase 8 U/L (0-33); Albumin Level 3.0 g/dL (3.5-5.2); Alkaline Phosphatase 66 U/L (35-105); Anion Gap 14.2 (5-19); Aspartate Amino Transferase 5 U/L (0-32); Blood Urea Nitrogen 29 mg/dL (8-23); Calcium 8.5 mg/dL (8.5-10.5); Carbon Dioxide 25 mmol/L (22-29); Chloride 101 mmol/L (98-107); Creatinine Clr Calc Pharmacy 80.7701; Globulin 2.2 g/dL (1.3-4.6); Glucose 215 mg/dL (65-115); Osmolality Calculated 294 mOsm/kg (285-295); Potassium 4.2 mmol/L (3.5-5.1); Sodium 136 mmol/L (136-145); Total Protein 5.2 g/dL (6.6-8.7)
[2025-06-01 05:03] LABS: Slide Review Slide Review Perform
[2025-06-01 05:06] LABS: Platelet Count 27 10^3/cmm (157-399)
--- NOTE | 2025-06-01 08:12 | USCV_ITS ---
Marli Eli Age: 70 Gender: F : 1955 Exam Date: 06/01/2025 10:01 Ordering Phys: Devon Snyder MD Technologist: Exam Location: [facility] [place] Indication: check valves BP: / HR: Rhythm: Sinus Technical Quality: Very technically difficult study MEASUREMENTS (Male / Female) Normal Values FINDINGS Left Ventricle Right Ventricle Right Atrium Left Atrium Mitral Valve Aortic Valve Tricuspid Valve Pulmonic Valve Pericardium Aorta IVC CONCLUSIONS Uninterpretable images please use contrast to enhance the image quality. Fatou Jacobs MD (Electronically Signed) Final Date: 01 June 2025 14:56 S
[2025-06-01] MEDS: ATORVASTATIN 10 MG TABLET PO (08:24)
[2025-06-01] MEDS: venlafaxine ER (24HR) 150 mg Capsule PO (08:24)
[2025-06-01 09:42] LABS: Hematocrit 25.9 % (36-47); Hemoglobin 8.20 g/dL (11.27-16.99); Mean Corpuscular HGB Conc 31.7 g/dL (30-55); Mean Corpuscular Hemoglobin 30.0 pg (27-33); Mean Corpuscular Volume 94.9 fl (85-98); Nucleated Red Blood Cells % 0 %; Red Blood Count 2.73 10^6/uL (3.85-5.65); White Blood Count 1.20 10^3/uL (3.29-11.43)
[2025-06-01 10:19] LABS: Slide Review Slide Review Perform
[2025-06-01 10:23] LABS: Platelet Count 22 10^3/cmm (157-399)
[2025-06-01] MEDS: morphine 4 mg/mL SDV 1 mL 2 MG IVP (10:33)
[2025-06-01] MEDS: lactulose oral liq 20 gm/30 mL UDC PO ×3 (10:33→20:36)
--- NOTE | 2025-06-01 13:48 | P.PN_ITS ---
Subjective 2 Subjective: Patient was seen this morning, currently alert oriented x 3, following commands, continues to have wheezing, no cough, no hemoptysis, no bloody left moves, discussed her pancytopenia, discussed ambulation with care, her increased risk of falls and morbidity mortality associated with bleeding, no headache, no blurry vision, discussed monitoring her pancytopenia she might require blood transfusion/platelets, discussed her Staphylococcus epidermidis bacteremia, discussed my concerns for possible port infection, versus contamination, we will have to repeat blood cultures from her port, continue IV antibiotics continue clinical monitoring, she is in agreement, she does continue to complain of wheezing, discussed continuing steroids, Vitals/I&O/Wt Last Vital Signs Temp 97.9 F 06/01/25 11:48 Pulse 97 06/01/25 11:48 Resp 19 H 06/01/25 11:48 BP 118/79 06/01/25 11:48 Pulse Ox 95 06/01/25 11:48 O2 Del Method Nasal Cannula 06/01/25 11:48 O2 Flow Rate 3 06/01/25 11:28 05/31/25 06/01/25 06/01/25 22:59 06:59 14:59 Intake Total 680 / 1450 120 / 1570 830 / 830 Output Total 400 / 600 Balance 680 / 1250 -280 / 970 830 / 830 Weight last 48 hrs Weight 238.221 kg Weight 114.124 kg Weight 114.124 kg Physical Exam 2 Const: COMMON NORMALS: no acute distress and patient oriented x3 Chest: OTHER: Port looks clean and dry, left chest Resp: COMMON NORMALS: normal respiratory effort, No retractions and No use of accessory muscles AUSCULTATION: wheezes Cardio: COMMON NORMALS: regular rate, regular rhythm, S1 normal heart sound present and S2 normal heart sound present RATE: regular rate RHYTHM: r egular rhythm HEART SOUNDS: S1 normal heart sound present and S2 normal heart sound present GI: COMMON NORMALS: Normal to inspection, nondistended, normoactive bowel sounds present and non-tender Extremity: COMMON NORMALS: no calf tenderness and no pedal edema Neuro: COMMON NORMALS: patient oriented x3 Psych: COMMON NORMALS: mental status grossly normal Data 06/01/25 09:20 06/01/25 03:35 Micro: Microbiology 05/30/25 16:45 Gram Stain - Final Sputum - Expectorated Sputum Sputum Culture - Final 06/01/25 09:21 Blood Culture - Preliminary Blood SPECIMEN COLLECTED 06/01/25 09:20 Blood Culture - Preliminary Blood SPECIMEN COLLECTED 06/01/25 03:35 Blood Culture - Preliminary Blood SPECIMEN COLLECTED 06/01/25 03:35 Blood Culture - Preliminary Blood SPECIMEN COLLECTED 05/30/25 11:46 Blood Culture - Preliminary Blood Staphylococcus epidermidis Staphylococcus species 05/30/25 09:55 Blood Culture - Preliminary Blood NEGATIVE TO DATE A&P Assessment and plan 1. Neutropenia: 2. Chemotherapy induced neutropenia: 3. Pneumonia: 4. Sepsis: 5. Acute hypoxic respiratory failure: 6. Immunocompromised state: 7. Thrombocytopenia: 8. COPD exacerbation: 9. Rhinovirus: 10. Staphylococcus epidermidis bacteremia: Plan: Staphylococcus epidermidis bacteremia - 1 out of 4 blood cultures - Contamination versus port infection - Left chest port looks clean and dry -Repeat blood cultures from port drawn - Continue vancomycin Sepsis - Sepsis features met given wheezing, shortness of breath, tachypnea - Neutropenia - Source of infection pneumonia Acute hypoxic respiratory failure - History of immunocompromise state, on chemotherapy, neutropenia - Secondary to COPD exacerbation - Secondary to pneumonia -Rhinovirus infection CT/CT angio chest PE protcl [id number] IMPRESSION: 1. No evidence of pulmonary embolus. 2. Large RIGHT hilar and upper lobe mass similar to previous with slightly improved postobstructive pneumonia today. 3. Persistent encasement and severe narrowing of the RIGHT mainstem bronchus. Volume loss RIGHT lung. 4. Contrast reflux into the hepatic veins can be seen with RIGHT heart dysfunction 5. No other significant changes. Plan - Solu-Medrol 40 mg IV push every 8 hours - Vancomycin - Zosyn - Sputum culture - MRSA nares - Full code -Lovenox for DVT prophylaxis COPD, current smoker, smoking cessation counseling Small cell lung cancer -On chemoradiation -History of whole brain radiation CT angio of the chest 3. Persistent encasement and severe narrowing of the RIGHT mainstem bronchus. Volume loss RIGHT lung. - Patient will need to follow-up with pulmonary as outpatient, consideration of bronchial stenting based on clinical progress Thrombocytopenia likely chemotherapy side effect monitor, patient might require transfusion patient clinical progress Neutropenia - Component of sepsis, pneumonia, -chemotherapy isolation precautions, neutropenic precautions - Spoke to hematology status post 1 dose of Neupogen Anemia, likely chemotherapy associated, monitor, patient might require transfusion patient clinically prognosis Full code SCDs, Lovenox for DVT prophylaxis currently relatively contraindicated given thrombocytopenia and anemia Plan for today repeat blood cultures from the port, continue IV antibiotics, monitor Staphylococcus epidermidis bacteremia, continue IV steroids, monitor CBC, outpatient required PRBC and platelet patient clinical progress, continue IV steroids PDMP PDMP Reviewed: Not Reviewed Attestations 2 Medical Necessity Statement*: Patient requires hospitalization for Staphylococcus epidermidis bacteremia, pancytopenia, pneumonia, rhinovirus Diagnoses Neutropenia D70.9 Chemotherapy induced neutropenia D70.1; T45.1X5A Pneumonia J18.9 Sepsis A41.9 Acute hypoxic respiratory failure J96.01 Immunocompromised state D84.9 Thrombocytopenia D69.6 COPD exacerbation J44.1 Rhinovirus B34.8 Staphylococcus epidermidis bacteremia R78.81; B95.7
[2025-06-01] MEDS: pantoprazole 40 mg SDV IVP (15:55)
[2025-06-01 16:19] LABS: Hematocrit 27.6 % (36-47); Hemoglobin 8.90 g/dL (11.27-16.99); Mean Corpuscular HGB Conc 32.2 g/dL (30-55); Mean Corpuscular Hemoglobin 30.5 pg (27-33); Mean Corpuscular Volume 94.5 fl (85-98); Nucleated Red Blood Cells % 0 %; Red Blood Count 2.92 10^6/uL (3.85-5.65); White Blood Count 1.41 10^3/uL (3.29-11.43)
[2025-06-01 16:48] LABS: Slide Review Slide Review Perform
[2025-06-01 16:55] LABS: Platelet Count 22 10^3/cmm (157-399)
--- NOTE | 2025-06-01 20:10 | PC.NURSE ---
1809 Called Vanc trough results to Lluvia in pharmacy. Trough 17.7. Per Lluvia, no change in dose.
[2025-06-02] VITALS (31 sets, daily range): BP systolic 99–140; BP diastolic 61–92; PULSE 87–133; RESP 18–23; TEMP 36.5–36.9; O2SAT 93–100
[2025-06-02] MEDS: piperacillin-tazobactam 3.375 GM in sodium chloride 0.9% (plus) 50 ML IV ×3 (04:24→19:35)
[2025-06-02] MEDS: methylPREDNISolone sod succ 40 mg/mL INJ IVP ×3 (04:27→19:33)
[2025-06-02] MEDS: lactulose oral liq 20 gm/30 mL UDC PO ×2 (04:27→06:16)
[2025-06-02 05:15] LABS: Hematocrit 26.1 % (36-47); Hemoglobin 8.30 g/dL (11.27-16.99); Mean Corpuscular HGB Conc 31.8 g/dL (30-55); Mean Corpuscular Hemoglobin 30.1 pg (27-33); Mean Corpuscular Volume 94.6 fl (85-98); Nucleated Red Blood Cells % 0 %; Red Blood Count 2.76 10^6/uL (3.85-5.65)
[2025-06-02 05:54] LABS: Alanine Aminotransferase 11 U/L (0-33); Albumin Level 3.1 g/dL (3.5-5.2); Alkaline Phosphatase 61 U/L (35-105); Anion Gap 14.9 (5-19); Aspartate Amino Transferase 5 U/L (0-32); Blood Urea Nitrogen 29 mg/dL (8-23); Calcium 8.4 mg/dL (8.5-10.5); Carbon Dioxide 25 mmol/L (22-29); Chloride 103 mmol/L (98-107); Creatinine Clr Calc Pharmacy 249.5944; Globulin 2.0 g/dL (1.3-4.6); Glucose 202 mg/dL (65-115); Osmolality Calculated 300 mOsm/kg (285-295); Potassium 3.9 mmol/L (3.5-5.1); Sodium 139 mmol/L (136-145); Total Protein 5.1 g/dL (6.6-8.7)
[2025-06-02 07:57] LABS: Platelet Count 14 10^3/cmm (157-399); White Blood Count 0.85 10^3/uL (3.29-11.43)
[2025-06-02] MEDS: venlafaxine ER (24HR) 150 mg Capsule PO (08:27)
[2025-06-02] MEDS: ATORVASTATIN 10 MG TABLET PO (08:27)
--- NOTE | 2025-06-02 10:44 | P.PN_ITS ---
Subjective 2 Subjective: Patient was seen this morning, afebrile overnight, no nausea, no vomiting, no abdominal pain, no bloody or black stools, no rashes, no bleeding, discussed her thrombocytopenia, he will require platelet transfusions will watch her hemoglobin, she continues to be neutropenic but denies any fevers, no chills, no diarrhea, no dysuria, discussed her bacteremia, will continue IV antibiotics, follow repeat cultures, her port site does not bother her Vitals/I&O/Wt Last Vital Signs Temp 98.0 F 06/02/25 08:00 Pulse 107 H 06/02/25 08:20 Resp 18 06/02/25 08:20 BP 99/65 06/02/25 08:00 Pulse Ox 100 06/02/25 08:20 O2 Del Method Nasal Cannula 06/02/25 08:20 O2 Flow Rate 3 06/02/25 08:20 06/01/25 06/02/25 06/02/25 22:59 06:59 14:59 Intake Total 400 / 1230 110 / 1340 530 / 530 Output Total 900 / 900 Balance 400 / 1230 110 / 1340 -370 / -370 Weight last 48 hrs Weight 118.614 kg Weight 238.221 kg Physical Exam 2 Const: COMMON NORMALS: no acute distress and patient oriented x3 Resp: COMMON NORMALS: normal respiratory effort, No retractions and No use of accessory muscles AUSCULTATION: crackles and wheezes Cardio: COMMON NORMALS: regular rate, regular rhythm, S1 normal heart sound present and S2 normal heart sound present RATE: regular rate RHYTHM: r egular rhythm HEART SOUNDS: S1 normal heart sound present and S2 normal heart sound present GI: COMMON NORMALS: Normal to inspection, nondistended, normoactive bowel sounds present and non-tender Extremity: COMMON NORMALS: no pedal edema Neuro: COMMON NORMALS: patient oriented x3, CN's II-XII intact bilaterally and moves all extremities Psych: COMMON NORMALS: mental status grossly normal Data 06/02/25 04:32 06/02/25 04:32 Micro: Microbiology 06/01/25 09:21 Blood Culture - Preliminary Blood NEGATIVE TO DATE 06/01/25 09:20 Blood Culture - Preliminary Blood NEGATIVE TO DATE 06/01/25 03:35 Blood Culture - Preliminary Blood NEGATIVE TO DATE 06/01/25 03:35 Blood Culture - Preliminary Blood NEGATIVE TO DATE 05/30/25 16:45 Gram Stain - Final Sputum - Expectorated Sputum Sputum Culture - Final A&P Assessment and plan 1. Neutropenia: 2. Chemotherapy induced neutropenia: 3. Pneumonia: 4. Sepsis: 5. Acute hypoxic respiratory failure: 6. Immunocompromised state: 7. Thrombocytopenia: 8. COPD exacerbation: 9. Rhinovirus: 10. Staphylococcus epidermidis bacteremia: Plan: Staphylococcus epidermidis bacteremia - 1 out of 4 blood cultures - Contamination versus port infection - Left chest port looks clean and dry -Repeat blood cultures from port drawn, so far pending -Cardiac echocardiogram ordered to evaluate valves - Continue vancomycin Sepsis - Sepsis features met given wheezing, shortness of breath, tachypnea - Neutropenia - Source of infection pneumonia Acute hypoxic respiratory failure - History of immunocompromise state, on chemotherapy, neutropenia - Secondary to COPD exacerbation - Secondary to pneumonia -Rhinovirus infection CT/CT angio chest PE protcl [id number] IMPRESSION: 1. No evidence of pulmonary embolus. 2. Large RIGHT hilar and upper lobe mass similar to previous with slightly improved postobstructive pneumonia today. 3. Persistent encasement and severe narrowing of the RIGHT mainstem bronchus. Volume loss RIGHT lung. 4. Contrast reflux into the hepatic veins can be seen with RIGHT heart dysfunction 5. No other significant changes. Plan - Solu-Medrol 40 mg IV push every 8 hours - Vancomycin - Zosyn - Sputum culture - MRSA nares - Full code -Lovenox for DVT prophylaxis Wheezing today, fluid overload, 1 dose of Bumex, 1 dose of metolazone COPD, current smoker, smoking cessation counseling Small cell lung cancer -On chemoradiation -History of whole brain radiation CT angio of the chest 3. Persistent encasement and severe narrowing of the RIGHT mainstem bronchus. Volume loss RIGHT lung. - Patient will need to follow-up with pulmonary as outpatient, consideration of bronchial stenting based on clinical progress Thrombocytopenia likely chemotherapy side effect monitor, platelet count up to 14,000, no evidence of bleeding, will give her 1 unit of platelet Neutropenia - Component of sepsis, pneumonia, -chemotherapy isolation precautions, neutropenic precautions - Spoke to hematology, will give Neupogen daily for total of 1500 mcg Anemia, likely chemotherapy associated, monitor, hemoglobin 8.3 as she is symptomatic, will give her 1 unit blood Full code SCDs, Lovenox for DVT prophylaxis currently relatively contraindicated given thrombocytopenia and anemia Plan for today continue IV vancomycin for concerns for Staphylococcus epidermidis bacteremia, use units of platelets, 1 unit PRBC, Neupogen, monitor closely PDMP PDMP Reviewed: Not Reviewed Attestations 2 Medical Necessity Statement*: Patient requires hospitalization for sepsis, pneumonia, rhinovirus, now with pancytopenia requiring platelets, blood, Neupogen, IV steroids, IV antibiotics, spoke to hematology Diagnoses Neutropenia D70.9 Chemotherapy induced neutropenia D70.1; T45.1X5A Pneumonia J18.9 Sepsis A41.9 Acute hypoxic respiratory failure J96.01 Immunocompromised state D84.9 Thrombocytopenia D69.6 COPD exacerbation J44.1 Rhinovirus B34.8 Staphylococcus epidermidis bacteremia R78.81; B95.7
--- NOTE | 2025-06-02 10:45 | USCV_ITS ---
Marli Eli Age: 70 Gender: F : 1955 Exam Date: 06/02/2025 15:29 Ordering Phys: Devon Snyder MD Technologist: CARLOS Exam Location: [facility] [place] Indication: valves for endocarditis BP: 137 / 92 HR: 127 Rhythm: Sinus Technical Quality: Very technically difficult study MEASUREMENTS (Male / Female) Normal Values 2D ECHO LV Ejection Fraction MOD 4C 54.0 % LV Ejection Fraction MOD 2C 67.2 % LV Ejection Fraction 2C AL 67.6 % RA Systolic Volume 4C AL 27.4 ml RA Systolic Volume 4C MOD 28.0 ml LA Sys Volume AL 40.2 cm cubed LA Sys Volume Index AL 17.0 cm cubed/m squared IVC Diameter 1.4 cm DOPPLER MV Peak Velocity 94.0 cm/s MV Area PHT 7.6 cm squared Mitral E to A Ratio 0.7 FINDINGS Left Ventricle Normal left ventricular size, systolic function and wall thickness, with no regional wall motion abnormalities. Left ventricular ejection fraction is estimated at 60 %. Grade I/IV diastolic dysfunction (abnormal relaxation filling pattern), normal to mildly elevated filling pressures. Right Ventricle The right ventricle is normal in size and function. Right Atrium The right atrium is normal in size. Left Atrium The left atrium is normal in size. Mitral Valve Structurally normal mitral valve without significant stenosis or prolapse. There is no mitral regurgitation. Aortic Valve Moderate aortic valve calcification. No aortic valve stenosis. No aortic valve regurgitation. Tricuspid Valve Structurally normal tricuspid valve without significant stenosis or regurgitation. Pulmonary artery systolic pressure is normal. Pulmonic Valve Pulmonic valve not well visualized. Pericardium Normal pericardium without effusion. Aorta Normal ascending aorta dimension. IVC The inferior vena cava appears normal. CONCLUSIONS Normal left ventricular size, systolic function and wall thickness, with no regional wall motion abnormalities. Left ventricular ejection fraction is estimated at 60 %. Grade I/IV diastolic dysfunction (abnormal relaxation filling pattern), normal to mildly elevated filling pressures. There is no pericardial effusion. Right atrial pressure is around 5 mm of mercury. Fatou Jacobs MD (Electronically Signed) Final Date: 02 June 2025 18:43 S
[2025-06-02 11:01] LABS: LAB Peripheral Smear Sent for Review
[2025-06-02] MEDS: HYDROcodone-acetaminophen 5-325 mg Tablet 1 TAB PO ×2 (15:51→22:59)
[2025-06-02] MEDS: pantoprazole 40 mg SDV IVP (15:52)
[2025-06-02] MEDS: perflutren protein-a microsphr 0.22 mg/mL SDV 3 mL IV (16:33)
--- NOTE | 2025-06-02 18:20 | PC.NURSE ---
patient got on bsc at this time.
[2025-06-02] MEDS: bumetanide 0.25 mg/mL SDV 4 mL 1 MG IVP (20:13)
[2025-06-02 20:39] LABS: Hematocrit 28.8 % (36-47); Hemoglobin 9.40 g/dL (11.27-16.99); Mean Corpuscular HGB Conc 32.6 g/dL (30-55); Mean Corpuscular Hemoglobin 29.8 pg (27-33); Mean Corpuscular Volume 91.4 fl (85-98); Nucleated Red Blood Cells % 0 %; Platelet Count 37 10^3/cmm (157-399); Red Blood Count 3.15 10^6/uL (3.85-5.65); White Blood Count 0.94 10^3/uL (3.29-11.43)
[2025-06-03] VITALS (19 sets, daily range): BP systolic 90–118; BP diastolic 59–78; PULSE 12–120; RESP 16–22; TEMP 36.6–36.9; O2SAT 91–98; BMI 46.3
[2025-06-03] MEDS: piperacillin-tazobactam 3.375 GM in sodium chloride 0.9% (plus) 50 ML IV ×3 (03:04→21:05)
[2025-06-03] MEDS: methylPREDNISolone sod succ 40 mg/mL INJ IVP (03:04)
[2025-06-03 05:44] LABS: Hematocrit 29.9 % (36-47); Hemoglobin 10.00 g/dL (11.27-16.99); Mean Corpuscular HGB Conc 33.4 g/dL (30-55); Mean Corpuscular Hemoglobin 30.4 pg (27-33); Mean Corpuscular Volume 90.9 fl (85-98); Nucleated Red Blood Cells % 0 %; Platelet Count 32 10^3/cmm (157-399); Red Blood Count 3.29 10^6/uL (3.85-5.65)
[2025-06-03 06:04] LABS: White Blood Count 0.90 10^3/uL (3.29-11.43)
[2025-06-03 06:07] LABS: Anion Gap 14.5 (5-19); Blood Urea Nitrogen 28 mg/dL (8-23); Calcium 8.7 mg/dL (8.5-10.5); Carbon Dioxide 28 mmol/L (22-29); Chloride 94 mmol/L (98-107); Creatinine Clr Calc Pharmacy 82.6518; Glucose 195 mg/dL (65-115); Osmolality Calculated 287 mOsm/kg (285-295); Potassium 3.5 mmol/L (3.5-5.1); Sodium 133 mmol/L (136-145)
[2025-06-03] MEDS: venlafaxine ER (24HR) 150 mg Capsule PO (09:24)
[2025-06-03] MEDS: ATORVASTATIN 10 MG TABLET PO (09:24)
[2025-06-03] MEDS: bumetanide 0.25 mg/mL SDV 4 mL 1 MG IVP ×2 (09:24→17:26)
--- NOTE | 2025-06-03 13:00 | P.PN_ITS ---
Subjective 2 Subjective: Patient was seen this morning, currently alert and oriented x 3, following commands, her shortness of breath is improving, wheezing improving, no new rashes, no episodes of bleeding, no bloody or black stools, no bruising, no abdominal pain Vitals/I&O/Wt Last Vital Signs Temp 98.2 F 06/03/25 11:29 Pulse 12 L 06/03/25 11:29 Resp 16 06/03/25 11:29 BP 105/68 06/03/25 11:29 Pulse Ox 95 06/03/25 11:29 O2 Del Method Room Air 06/03/25 11:29 O2 Flow Rate 3 06/03/25 11:14 06/02/25 06/03/25 06/03/25 22:59 06:59 14:59 Intake Total 940 / 2252 50 / 2302 290 / 290 Output Total 4500 / 5400 700 / 6100 Balance -3560 / -3148 -650 / -3798 290 / 290 Weight last 48 hrs Weight 118.614 kg Weight 118.614 kg Physical Exam 2 Const: COMMON NORMALS: no acute distress and patient oriented x3 Resp: COMMON NORMALS: normal respiratory effort, No retractions and No use of accessory muscles AUSCULTATION: crackles and wheezes Cardio: COMMON NORMALS: regular rate, regular rhythm, S1 normal heart sound present and S2 normal heart sound present RATE: regular rate RHYTHM: r egular rhythm HEART SOUNDS: S1 normal heart sound present and S2 normal heart sound present GI: COMMON NORMALS: Normal to inspection, nondistended, normoactive bowel sounds present and non-tender Extremity: COMMON NORMALS: no pedal edema Neuro: COMMON NORMALS: patient oriented x3 Psych: COMMON NORMALS: mental status grossly normal Data 06/03/25 05:20 06/03/25 05:20 Micro: Microbiology 06/01/25 09:21 Blood Culture - Preliminary Blood NEGATIVE TO DATE 06/01/25 09:20 Blood Culture - Preliminary Blood NEGATIVE TO DATE A&P Assessment and plan 1. Neutropenia: 2. Chemotherapy induced neutropenia: 3. Pneumonia: 4. Sepsis: 5. Acute hypoxic respiratory failure: 6. Immunocompromised state: 7. Thrombocytopenia: 8. COPD exacerbation: 9. Rhinovirus: 10. Staphylococcus epidermidis bacteremia: Plan: Staphylococcus epidermidis bacteremia - 1 out of 4 blood cultures - Contamination versus port infection - Left chest port looks clean and dry -Repeat blood cultures from port drawn, so far pending -Cardiac echocardiogram CONCLUSIONS Normal left ventricular size, systolic function and wall thickness, with no regional wall motion abnormalities. Left ventricular ejection fraction is estimated at 60 %. Grade I/IV diastolic dysfunction (abnormal relaxation filling pattern), normal to mildly elevated filling pressures. There is no pericardial effusion. Right atrial pressure is around 5 mm of mercury. - Continue vancomycin Sepsis - Sepsis features met given wheezing, shortness of breath, tachypnea - Neutropenia - Source of infection pneumonia Acute hypoxic respiratory failure - History of immunocompromise state, on chemotherapy, neutropenia - Secondary to COPD exacerbation - Secondary to pneumonia -Rhinovirus infection CT/CT angio chest PE protcl [id number] IMPRESSION: 1. No evidence of pulmonary embolus. 2. Large RIGHT hilar and upper lobe mass similar to previous with slightly improved postobstructive pneumonia today. 3. Persistent encasement and severe narrowing of the RIGHT mainstem bronchus. Volume loss RIGHT lung. 4. Contrast reflux into the hepatic veins can be seen with RIGHT heart dysfunction 5. No other significant changes. Plan - De-escalate to prednisone - Vancomycin - Zosyn - Sputum culture - MRSA nares - Full code -Lovenox for DVT prophylaxis Evidence of acute hypoxic respiratory failure secondary to fluid overload ? -5200 mL ? Continue IV diuresis, Bumex COPD, current smoker, smoking cessation counseling Small cell lung cancer -On chemoradiation -History of whole brain radiation CT angio of the chest 3. Persistent encasement and severe narrowing of the RIGHT mainstem bronchus. Volume loss RIGHT lung. - Patient will need to follow-up with pulmonary as outpatient, consideration of bronchial stenting based on clinical progress Thrombocytopenia likely chemotherapy side effect monitor, platelet count up to 32,000, no evidence of bleeding, will give her 1 unit of platelet today Neutropenia - Component of sepsis, pneumonia, -chemotherapy isolation precautions, neutropenic precautions - Spoke to hematology, will give Neupogen daily for total of 1500 mcg Anemia, likely chemotherapy associated, monitor, hemoglobin 10, s/p 1 unit PRBC Full code SCDs, Lovenox for DVT prophylaxis currently relatively contraindicated given thrombocytopenia and anemia Plan for today continue IV vancomycin, de-escalate steroids, IV diuresis, transfuse platelets, monitor neutropenia, acute Neupogen PDMP PDMP Reviewed: Not Reviewed Attestations 2 Medical Necessity Statement*: Requires hospitalization for fluid overload, pneumonia, rhinovirus infection, anemia, thrombocytopenia, neutropenia, fluid overload Diagnoses Neutropenia D70.9 Chemotherapy induced neutropenia D70.1; T45.1X5A Pneumonia J18.9 Sepsis A41.9 Acute hypoxic respiratory failure J96.01 Immunocompromised state D84.9 Thrombocytopenia D69.6 COPD exacerbation J44.1 Rhinovirus B34.8 Staphylococcus epidermidis bacteremia R78.81; B95.7
[2025-06-03] MEDS: HYDROcodone-acetaminophen 5-325 mg Tablet 1 TAB PO (13:28)
[2025-06-03] MEDS: pantoprazole 40 mg SDV IVP (14:14)
[2025-06-04] VITALS (15 sets, daily range): BP systolic 84–121; BP diastolic 54–77; PULSE 96–116; RESP 16–20; TEMP 36.6–37; O2SAT 92–98
[2025-06-04 04:28] LABS: Hematocrit 29.7 % (36-47); Hemoglobin 9.90 g/dL (11.27-16.99); Mean Corpuscular HGB Conc 33.3 g/dL (30-55); Mean Corpuscular Hemoglobin 30.7 pg (27-33); Mean Corpuscular Volume 92.0 fl (85-98); Platelet Count 35 10^3/cmm (157-399); Red Blood Count 3.23 10^6/uL (3.85-5.65); White Blood Count 1.59 10^3/uL (3.29-11.43)
[2025-06-04] MEDS: piperacillin-tazobactam 3.375 GM in sodium chloride 0.9% (plus) 50 ML IV ×3 (04:50→21:01)
[2025-06-04 05:02] LABS: Anion Gap 16.0 (5-19); Blood Urea Nitrogen 35 mg/dL (8-23); Calcium 8.6 mg/dL (8.5-10.5); Carbon Dioxide 29 mmol/L (22-29); Chloride 97 mmol/L (98-107); Glucose 130 mg/dL (65-115); Osmolality Calculated 298 mOsm/kg (285-295); Potassium 3.0 mmol/L (3.5-5.1); Sodium 139 mmol/L (136-145)
[2025-06-04 05:05] LABS: Creatinine Clr Calc Pharmacy 64.8860
[2025-06-04 06:11] LABS: Slide Review Slide Review Perform; Total Cells Counted 100 (0-100)
[2025-06-04 06:12] LABS: Absolute Segmented Neutrophil 0.4 10/cmm (1.6-7.1); Atypical Lymphs 8.0 % (0-5); Band Neutrophils Absolute 0.2 10^3/cmm (0.0-1.2)
[2025-06-04 06:16] LABS: Hypochromasia 1+
[2025-06-04 06:17] LABS: Dohle Bodies 1+; Pathology Refferal Yes; Smudge Cells 1+
[2025-06-04] MEDS: ATORVASTATIN 10 MG TABLET PO (09:21)
[2025-06-04] MEDS: venlafaxine ER (24HR) 150 mg Capsule PO (09:21)
[2025-06-04] MEDS: HYDROcodone-acetaminophen 5-325 mg Tablet 1 TAB PO ×2 (09:21→21:52)
--- NOTE | 2025-06-04 12:09 | PC.SOCIAL ---
IMM Updated Updated pt on IMM. No questions voiced. Provided pt a copy. Initialed, dated, & timed copy in chart.
[2025-06-04] MEDS: pantoprazole 40 mg SDV IVP (15:01)
--- NOTE | 2025-06-04 16:18 | P.PN_ITS ---
Subjective 2 Subjective: Patient was seen this morning, currently alert oriented x 3, following commands, she tells me her wheezing is improving, denies any chest pain, no abdominal pain, no diarrhea Vitals/I&O/Wt Last Vital Signs Temp 98.0 F 06/04/25 11:55 Pulse 99 06/04/25 12:31 Resp 20 H 06/04/25 12:31 BP 88/54 06/04/25 11:55 Pulse Ox 98 06/04/25 12:31 O2 Del Method Nasal Cannula 06/04/25 12:31 O2 Flow Rate 3 06/04/25 12:31 06/04/25 06/04/25 06/04/25 06:59 14:59 22:59 Intake Total 350 / 1951 1070 / 1070 50 / 1120 Output Total 600 / 1850 1000 / 1000 Balance -250 / 101 70 / 70 50 / 120 Weight last 48 hrs Weight 114.929 kg Weight 118.614 kg Physical Exam 2 Const: COMMON NORMALS: no acute distress and patient oriented x3 Resp: COMMON NORMALS: normal respiratory effort, No retractions, No use of accessory muscles and clear to auscultation bilaterally AUSCULTATION: clear to auscultation bilaterally Cardio: COMMON NORMALS: regular rate, regular rhythm, S1 normal heart sound present and S2 normal heart sound present RATE: regular rate RHYTHM: r egular rhythm HEART SOUNDS: S1 normal heart sound present and S2 normal heart sound present GI: COMMON NORMALS: Normal to inspection, nondistended, normoactive bowel sounds present and non-tender Extremity: COMMON NORMALS: no pedal edema Neuro: COMMON NORMALS: patient oriented x3 Psych: COMMON NORMALS: mental status grossly normal Data 06/04/25 04:07 06/04/25 04:07 Micro: Microbiology 05/30/25 09:55 Blood Culture - Final Blood NO GROWTH AFTER 5 DAYS 05/30/25 11:46 Blood Culture - Final Blood Staphylococcus epidermidis A&P Assessment and plan 1. Neutropenia: 2. Chemotherapy induced neutropenia: 3. Pneumonia: 4. Sepsis: 5. Acute hypoxic respiratory failure: 6. Immunocompromised state: 7. Thrombocytopenia: 8. COPD exacerbation: 9. Rhinovirus: 10. Staphylococcus epidermidis bacteremia: Plan: Staphylococcus epidermidis bacteremia - 1 out of 4 blood cultures - Contamination versus port infection - Left chest port looks clean and dry -Repeat blood cultures from port drawn, so far pending -Cardiac echocardiogram CONCLUSIONS Normal left ventricular size, systolic function and wall thickness, with no regional wall motion abnormalities. Left ventricular ejection fraction is estimated at 60 %. Grade I/IV diastolic dysfunction (abnormal relaxation filling pattern), normal to mildly elevated filling pressures. There is no pericardial effusion. Right atrial pressure is around 5 mm of mercury. - Continue vancomycin Sepsis - Sepsis features met given wheezing, shortness of breath, tachypnea - Neutropenia - Source of infection pneumonia Acute hypoxic respiratory failure - History of immunocompromise state, on chemotherapy, neutropenia - Secondary to COPD exacerbation - Secondary to pneumonia -Rhinovirus infection CT/CT angio chest PE protcl [id number] IMPRESSION: 1. No evidence of pulmonary embolus. 2. Large RIGHT hilar and upper lobe mass similar to previous with slightly improved postobstructive pneumonia today. 3. Persistent encasement and severe narrowing of the RIGHT mainstem bronchus. Volume loss RIGHT lung. 4. Contrast reflux into the hepatic veins can be seen with RIGHT heart dysfunction 5. No other significant changes. Plan - De-escalate to prednisone - Vancomycin - Zosyn - Sputum culture - MRSA nares - Full code -Lovenox for DVT prophylaxis Evidence of acute hypoxic respiratory failure secondary to fluid overload ? -5200 mL ? Continue IV diuresis, Bumex COPD, current smoker, smoking cessation counseling Small cell lung cancer -On chemoradiation -History of whole brain radiation CT angio of the chest 3. Persistent encasement and severe narrowing of the RIGHT mainstem bronchus. Volume loss RIGHT lung. - Patient will need to follow-up with pulmonary as outpatient, consideration of bronchial stenting based on clinical progress Thrombocytopenia likely chemotherapy side effect monitor, status post 2 units of platelets Neutropenia - Component of sepsis, pneumonia, -chemotherapy isolation precautions, neutropenic precautions - Spoke to hematology, will give Neupogen daily for total of 1500 mcg Anemia, likely chemotherapy associated, monitor, hemoglobin 10, s/p 1 unit PRBC Full code SCDs, Lovenox for DVT prophylaxis currently relatively contraindicated given thrombocytopenia and anemia Plan for today continue IV vancomycin, de-escalate steroids, IV diuresis, transfuse platelets, monitor neutropenia, acute Neupogen PDMP PDMP Reviewed: Not Reviewed Attestations 2 Medical Necessity Statement*: Patient requires hospitalization for streptococcal bacteremia, anemia, thrombocytopenia, neutropenia, respiratory failure Diagnoses Neutropenia D70.9 Chemotherapy induced neutropenia D70.1; T45.1X5A Pneumonia J18.9 Sepsis A41.9 Acute hypoxic respiratory failure J96.01 Immunocompromised state D84.9 Thrombocytopenia D69.6 COPD exacerbation J44.1 Rhinovirus B34.8 Staphylococcus epidermidis bacteremia R78.81; B95.7
--- NOTE | 2025-06-04 21:57 | ECG_ITS ---
[facility] Test Date: 2025-06-04 Pat Name: Marli Eli Department: Room: 257 Gender: Female [employer]amin[employer]: : 1955 Requested By: Tom Carmona Order Number: [id number] Delgado MD: Nitish Valle M.D. Measurements Intervals [place] Rate: 112 P: 69 ND: 138 QRS: 86 QRSD: 144 T: 46 QT: 354 QTc: 485 Interpretive Statements SINUS TACHYCARDIA RIGHT BUNDLE BRANCH BLOCK [120+ ms QRS DURATION, UPRIGHT V1, 40+ ms S IN I/aVL/V4/V5/V6] Compared to ECG 05/30/2025 16:15:57 Indeterminate axis no longer present Electronically Signed On 06-07-2025 08:46:17 CDT by Nitish Valle M.D. [id number]
--- NOTE | 2025-06-04 22:27 | PC.NURSE ---
Patient complaining of chest pain top of chest. nurse done EKG, Vitals and gave pain med. Called the doctor he said to do as done and he would review EKG.
--- NOTE | 2025-06-04 22:46 | PC.NURSE ---
chest pain Nurse checked on patients chest pain patient states I was just nervous about missing my cancer anointment and getting out of here I'm good now. HR is lower now and patient seems to be calm and relaxed
[2025-06-05] VITALS (22 sets, daily range): BP systolic 102–141; BP diastolic 67–93; PULSE 86–116; RESP 18–20; TEMP 36.7–36.8; O2SAT 94–98
[2025-06-05 05:16] LABS: Hematocrit 28.3 % (36-47); Hemoglobin 9.10 g/dL (11.27-16.99); Mean Corpuscular HGB Conc 32.2 g/dL (30-55); Mean Corpuscular Hemoglobin 30.4 pg (27-33); Mean Corpuscular Volume 94.6 fl (85-98); Nucleated Red Blood Cells % 0 %; Red Blood Count 2.99 10^6/uL (3.85-5.65); White Blood Count 2.01 10^3/uL (3.29-11.43)
[2025-06-05 05:36] LABS: Anion Gap 13.6 (5-19); Blood Urea Nitrogen 28 mg/dL (8-23); Calcium 8.4 mg/dL (8.5-10.5); Carbon Dioxide 28 mmol/L (22-29); Chloride 101 mmol/L (98-107); Creatinine Clr Calc Pharmacy 81.6066; Glucose 118 mg/dL (65-115); Osmolality Calculated 295 mOsm/kg (285-295); Potassium 3.6 mmol/L (3.5-5.1); Sodium 139 mmol/L (136-145)
[2025-06-05] MEDS: piperacillin-tazobactam 3.375 GM in sodium chloride 0.9% (plus) 50 ML IV ×3 (05:40→22:23)
[2025-06-05 07:34] LABS: Platelet Count 23 10^3/cmm (157-399)
[2025-06-05 07:35] LABS: Slide Review Slide Review Perform
[2025-06-05] MEDS: venlafaxine ER (24HR) 150 mg Capsule PO (08:29)
[2025-06-05] MEDS: ATORVASTATIN 10 MG TABLET PO (08:29)
[2025-06-05] MEDS: HYDROcodone-acetaminophen 5-325 mg Tablet 1 TAB PO ×3 (08:30→22:25)
[2025-06-05] MEDS: pantoprazole 40 mg SDV IVP (15:39)
--- NOTE | 2025-06-05 16:49 | P.PN_ITS ---
Subjective 2 Subjective: - Patient was seen this morning - She is alert oriented x 3, following c ommands - Denies any fevers, no chills - Does report a persistent cough, wheezi ng, shortness with exertion, - Discussed with thrombocytopenia - Discussed transfusion of platelets, mo nitoring her blood indices Vitals/I&O/Wt Last Vital Signs Temp 98.2 F 06/05/25 15:54 Pulse 109 H 06/05/25 15:54 Resp 20 H 06/05/25 15:54 BP 130/87 06/05/25 15:54 Pulse Ox 96 06/05/25 15:54 O2 Del Method Nasal Cannula 06/05/25 15:44 O2 Flow Rate 3 06/05/25 15:20 06/05/25 06/05/25 06/05/25 06:59 14:59 22:59 Intake Total 290 / 2070 1310 / 1310 55 / 1365 Output Total 900 / 900 Balance 290 / 1070 410 / 410 55 / 465 Weight last 48 hrs Weight 116.12 kg Weight 114.929 kg Physical Exam 2 Const: COMMON NORMALS: no acute distress and patient oriented x3 Resp: COMMON NORMALS: normal respiratory effort, No retractions and No use of accessory muscles AUSCULTATION: crackles and wheezes Cardio: COMMON NORMALS: regular rate, regular rhythm, S1 normal heart sound present and S2 normal heart sound present RATE: regular rate RHYTHM: r egular rhythm HEART SOUNDS: S1 normal heart sound present and S2 normal heart sound present GI: COMMON NORMALS: Normal to inspection, nondistended, normoactive bowel sounds present and non-tender Extremity: COMMON NORMALS: no pedal edema Neuro: COMMON NORMALS: patient oriented x3 Psych: COMMON NORMALS: mental status grossly normal Data 06/05/25 04:43 06/05/25 04:43 A&P Assessment and plan 1. Neutropenia: 2. Chemotherapy induced neutropenia: 3. Pneumonia: 4. Sepsis: 5. Acute hypoxic respiratory failure: 6. Immunocompromised state: 7. Thrombocytopenia: 8. COPD exacerbation: 9. Rhinovirus: 10. Staphylococcus epidermidis bacteremia: Plan: Staphylococcus epidermidis bacteremia - 1 out of 4 blood cultures - Contamination versus port infection - Left chest port looks clean and dry -Repeat blood cultures from port drawn, so far negative -Cardiac echocardiogram CONCLUSIONS Normal left ventricular size, systolic function and wall thickness, with no regional wall motion abnormalities. Left ventricular ejection fraction is estimated at 60 %. Grade I/IV diastolic dysfunction (abnormal relaxation filling pattern), normal to mildly elevated filling pressures. There is no pericardial effusion. Right atrial pressure is around 5 mm of mercury. -Likely contamination however given patient's neutropenia, immunocompromise state, we will likely treat with p.o. Zyvox for total of 10 days - Continue vancomycin as inpatient Sepsis - Sepsis features met given wheezing, shortness of breath, tachypnea - Neutropenia - Source of infection pneumonia Acute hypoxic respiratory failure - History of immunocompromise state, on chemotherapy, neutropenia - Secondary to COPD exacerbation - Secondary to pneumonia -Rhinovirus infection CT/CT angio chest PE protcl [id number] IMPRESSION: 1. No evidence of pulmonary embolus. 2. Large RIGHT hilar and upper lobe mass similar to previous with slightly improved postobstructive pneumonia today. 3. Persistent encasement and severe narrowing of the RIGHT mainstem bronchus. Volume loss RIGHT lung. 4. Contrast reflux into the hepatic veins can be seen with RIGHT heart dysfunction 5. No other significant changes. Plan - De-escalate to prednisone - Vancomycin - Zosyn - Sputum culture - MRSA nares - Full code -Lovenox for DVT prophylaxis Evidence of acute hypoxic respiratory failure secondary to fluid overload ? Continue IV diuresis, Bumex COPD, current smoker, smoking cessation counseling Small cell lung cancer -On chemoradiation -History of whole brain radiation CT angio of the chest 3. Persistent encasement and severe narrowing of the RIGHT mainstem bronchus. Volume loss RIGHT lung. - Patient will need to follow-up with pulmonary as outpatient, consideration of bronchial stenting based on clinical progress Thrombocytopenia likely chemotherapy side effect monitor, status post 2 units of platelets Neutropenia - Component of sepsis, pneumonia, -chemotherapy isolation precautions, neutropenic precautions - Spoke to hematology, will give Neupogen daily for total of 1500 mcg Anemia, likely chemotherapy associated, monitor, hemoglobin 10, s/p 1 unit PRBC Full code SCDs, Lovenox for DVT prophylaxis currently relatively contraindicated given thrombocytopenia and anemia Plan for today IV vancomycin, IV Zosyn, IV diuresis, transfusion unit platelets PDMP PDMP Reviewed: Not Reviewed Attestations 2 Medical Necessity Statement*: Patient requires hospitalization for acute hypoxic respiratory failure, pneumonia, rhinovirus, COPD, thrombocytopenia, Staphylococcus epidermidis bacteremia Diagnoses Neutropenia D70.9 Chemotherapy induced neutropenia D70.1; T45.1X5A Pneumonia J18.9 Sepsis A41.9 Acute hypoxic respiratory failure J96.01 Immunocompromised state D84.9 Thrombocytopenia D69.6 COPD exacerbation J44.1 Rhinovirus B34.8 Staphylococcus epidermidis bacteremia R78.81; B95.7
[2025-06-05 17:26] LABS: Hematocrit 27.3 % (36-47); Hemoglobin 8.80 g/dL (11.27-16.99); Mean Corpuscular HGB Conc 32.2 g/dL (30-55); Mean Corpuscular Hemoglobin 29.8 pg (27-33); Mean Corpuscular Volume 92.5 fl (85-98); Nucleated Red Blood Cells % 0 %; Platelet Count 105 10^3/cmm (157-399); Red Blood Count 2.95 10^6/uL (3.85-5.65); White Blood Count 3.03 10^3/uL (3.29-11.43)
[2025-06-05] MEDS: bumetanide 0.25 mg/mL SDV 4 mL 1 MG IVP (17:32)
[2025-06-05 17:59] LABS: Slide Review Slide Review Perform
[2025-06-06] VITALS (8 sets, daily range): BP systolic 109–113; BP diastolic 74–78; PULSE 92–109; RESP 18–21; TEMP 36.6–36.7; O2SAT 94–98
[2025-06-06] MEDS: piperacillin-tazobactam 3.375 GM in sodium chloride 0.9% (plus) 50 ML IV (04:54)
[2025-06-06] MEDS: ATORVASTATIN 10 MG TABLET PO (04:56)
[2025-06-06] MEDS: venlafaxine ER (24HR) 150 mg Capsule PO (04:56)
[2025-06-06] MEDS: HYDROcodone-acetaminophen 5-325 mg Tablet 1 TAB PO (08:23)
[2025-06-06 08:47] LABS: Hematocrit 29.3 % (36-47); Hemoglobin 9.60 g/dL (11.27-16.99); Mean Corpuscular HGB Conc 32.8 g/dL (30-55); Mean Corpuscular Hemoglobin 30.6 pg (27-33); Mean Corpuscular Volume 93.3 fl (85-98); Platelet Count 86 10^3/cmm (157-399); Red Blood Count 3.14 10^6/uL (3.85-5.65); White Blood Count 3.98 10^3/uL (3.29-11.43)
[2025-06-06 09:01] LABS: Blood Urea Nitrogen 20 mg/dL (8-23); Calcium 8.9 mg/dL (8.5-10.5); Carbon Dioxide 26 mmol/L (22-29); Chloride 90 mmol/L (98-107); Creatinine Clr Calc Pharmacy 81.4997; Glucose 320 mg/dL (65-115); Osmolality Calculated 289 mOsm/kg (285-295); Sodium 132 mmol/L (136-145)
--- NOTE | 2025-06-06 09:03 | PC.SOCIAL ---
IMM Updated Updated pt on IMM. No questions voiced. Provided pt a copy. Initialed, dated, & timed copy in chart.
[2025-06-06 09:15] LABS: Anion Gap 19.8 (5-19); Potassium 3.8 mmol/L (3.5-5.1)
[2025-06-06 09:46] LABS: Slide Review Slide Review Perform
[2025-06-06 09:47] LABS: Absolute Segmented Neutrophil 2.8 10/cmm (1.6-7.1); Atypical Lymphs 2.0 % (0-5); Band Neutrophils Absolute 0.3 10^3/cmm (0.0-1.2); Total Cells Counted 100 (0-100)
[2025-06-06] MEDS: lactulose oral liq 20 gm/30 mL UDC PO (10:20)
[2025-06-06] MEDS: bumetanide 0.25 mg/mL SDV 4 mL 1 MG IVP (10:20)
--- NOTE | 2025-06-06 10:43 | PM.DCS ---
Discharge Providers Date of Admission: 05/30/25 14:50 Date of Discharge: June 06, 2025 Attending Provider at Admission: Devon Snyder MD Attending Provider at Discharge: Devon Snyder MD Primary Care Provider: MAUREEN Majano Diagnoses at Discharge Discharge Diagnosis 1. Neutropenia: 2. Chemotherapy induced neutropenia: 3. Pneumonia: 4. Sepsis: 5. Acute hypoxic respiratory failure: 6. Immunocompromised state: 7. Thrombocytopenia: 8. COPD exacerbation: 9. Rhinovirus: 10. 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, on concurrent chemoradiation and PCI, history of whole brain irradiation for brain mets, who presents [facility] due to cough, shortness of breath, wheezing, patient is currently alert oriented x 3, following commands, she reports increased shortness of of breath, shortness of breath with exertion, wheezing, coughing, pleurisy, she also complains of right flank pain her last dose of chemotherapy was roughly 5 days ago, Patient was admitted for Staphylococcus epidermidis bacteremia - 1 out of 4 blood cultures - Contamination versus port infection - Left chest port looks clean and dry -Repeat blood cultures from port drawn, so far negative -Cardiac echocardiogram CONCLUSIONS Normal left ventricular size, systolic function and wall thickness, with no regional wall motion abnormalities. Left ventricular ejection fraction is estimated at 60 %. Grade I/IV diastolic dysfunction (abnormal relaxation filling pattern), normal to mildly elevated filling pressures. There is no pericardial effusion. Right atrial pressure is around 5 mm of mercury. -Likely contamination however given patient's neutropenia, immunocompromised state, -discussed risk and benefits with patient, she voiced understanding, all questions answered, agreed to proceed -we will likely treat with Abx total of 14 d, discharge on PO zyvox for 6 more days - Continue vancomycin as inpatient Sepsis - Sepsis features met given wheezing, shortness of breath, tachypnea - Neutropenia - Source of infection pneumonia -resolved on discharge Acute hypoxic respiratory failure - History of immunocompromise state, on chemotherapy, neutropenia - Secondary to COPD exacerbation - Secondary to pneumonia -Rhinovirus infection CT/CT angio chest PE protcl [id number] IMPRESSION: 1. No evidence of pulmonary embolus. 2. Large RIGHT hilar and upper lobe mass similar to previous with slightly improved postobstructive pneumonia today. 3. Persistent encasement and severe narrowing of the RIGHT mainstem bronchus. Volume loss RIGHT lung. 4. Contrast reflux into the hepatic veins can be seen with RIGHT heart dysfunction 5. No other significant changes. -received IV antibiotics during hospital stay -Received IV steroids - clinically monitored, overall clinically improved Evidence of acute hypoxic respiratory failure secondary to fluid overload - managed on IV diuresis, overall clinically improved, COPD, current smoker, smoking cessation counseling Small cell lung cancer -On chemoradiation -History of whole brain radiation CT angio of the chest 3. Persistent encasement and severe narrowing of the RIGHT mainstem bronchus. Volume loss RIGHT lung. - Patient will need to follow-up with pulmonary as outpatient, consideration of bronchial stenting based on clinical progress Thrombocytopenia likely chemotherapy side effect monitor, status post 2 units of platelets, improving on discharge Neutropenia - Component of sepsis, pneumonia, -chemotherapy isolation precautions, neutropenic precautions - S/p total dose of Neupogen of 1500 mcg, during hospitalization, -improved on discharge, afebrile, clinically improving Anemia, likely chemotherapy associated, monitor, hemoglobin 10, s/p 1 unit PRBC, resolving Physical Exam Const: COMMON NORMALS: no acute distress and patient oriented x3 Resp: COMMON NORMALS: normal respiratory effort, No retractions, No use of accessory muscles and clear to auscultation bilaterally AUSCULTATION: clear to auscultation bilaterally Cardio: COMMON NORMALS: regular rate, regular rhythm, S1 normal heart sound present and S2 normal heart sound present RATE: regular rate RHYTHM: regular rhythm HEART SOUNDS: S1 normal heart sound present and S2 normal heart sound present GI: COMMON NORMALS: Normal to inspection, nondistended, normoactive bowel sounds present and non-tender Extremity: COMMON NORMALS: no pedal edema Neuro: COMMON NORMALS: patient oriented x3 Psych: COMMON NORMALS: mental status grossly normal Discharge Data Studies Completed and Pending Completed Studies During Hospitalization Category Date Time Status CT angio chest PE protcl [id number] Stat Cat Scan 05/30/25 12:09 Completed XR chest 1V portable [id number] Stat Exams 05/30/25 11:19 Completed CV. echo complete* [id number] Routine Ultrasound 06/01/25 08:12 Completed CV. echo wo/w contrast [id number] Routine Ultrasound 06/02/25 10:45 Completed US renal BI* [id number] Routine Ultrasound 05/31/25 15:52 Completed Pending at discharge Category Date Time Status ABO/Rh Type Stat Lab 06/02/25 07:50 Results Antibody Screen Gel Stat Lab 06/01/25 15:56 Results Complete Crossmatch Stat Lab 06/02/25 07:50 Results Leukocyte Reduced RBC Stat Lab 06/01/25 15:56 Results Platelets Leuko-Reduced Stat Lab 06/02/25 07:50 Results Radiology Impressions Chest X-Ray 05/30/25 11:19 IMPRESSION: 1. Atelectasis and masslike density at the right hilum unchanged. No acute infiltrate or other new finding. Chest CTA 05/30/25 12:09 IMPRESSION: 1. No evidence of pulmonary embolus. 2. Large RIGHT hilar and upper lobe mass similar to previous with slightly improved postobstructive pneumonia today. 3. Persistent encasement and severe narrowing of the RIGHT mainstem bronchus. Volume loss RIGHT lung. 4. Contrast reflux into the hepatic veins can be seen with RIGHT heart dysfunction 5. No other significant changes. Renal Ultrasound 05/31/25 15:52 IMPRESSION: 1. No hydronephrosis. 2. Urinary bladder poorly visualized due to limitations of sonographic penetration (technically degraded study). 3. Diffuse hepatic steatosis with no focal hepatic lesions identified. COMMENTS: Quality of examination is limited by large patient body habitus. Laboratory Results WBC 3.98 10^3/uL (3.29-11.43) 06/06/25 08:39 Corrected WBC Cancelled 06/02/25 20:28 RBC 3.14 10^6/uL (3.85-5.65) L 06/06/25 08:39 Hgb 9.60 g/dL (11.27-16.99) L 06/06/25 08:39 Hct 29.3 % (36-47) L 06/06/25 08:39 MCV 93.3 fl (85-98) 06/06/25 08:39 MCH 30.6 pg (27-33) 06/06/25 08:39 MCHC 32.8 g/dL (30-55) 06/06/25 08:39 RDW 14.6 % (12.1-15.1) 06/06/25 08:39 Plt Count 86 10^3/cmm (157-399) L 06/06/25 08:39 MPV 10.5 fL (7.4-10.4) H 06/06/25 08:39 Neut % (Auto) 63.3 % 06/05/25 17:18 Lymph % (Auto) Not Reportable 06/06/25 08:39 [place] % (Auto) Not Reportable 06/06/25 08:39 Eos % (Auto) 0.3 % 06/05/25 17:18 Baso % (Auto) 1.0 % 06/05/25 17:18 Neut # (Auto) 1.92 10^3/uL (1.8-7.7) 06/05/25 17:18 Lymph # (Auto) Not Reportable 06/06/25 08:39 [place] # (Auto) Not Reportable 06/06/25 08:39 Eos # (Auto) 0.0 10^3/uL (0.0-0.8) 06/05/25 17:18 Baso # (Auto) 0.0 10^3/uL (0.0-0.1) 06/05/25 17:18 Nucleated RBC % (auto) 0 % 06/05/25 17:18 Total Counted 100 (0-100) 06/06/25 08:39 Atypical Lymphs % 2.0 % (0-5) 06/06/25 08:39 Absolute Neutrophils 3.1 10^3/cmm (1.4-6.5) 06/06/25 08:39 Segmented Neutrophils 71 % 06/06/25 08:39 Band Neutrophils 7.0 % 06/06/25 08:39 Absolute Lymphocytes 0.6 10^3/cmm (1.2-3.4) L 06/06/25 08:39 Lymphocytes (Manual) 13 % 06/06/25 08:39 Monocytes (Manual) 7.0 % 06/06/25 08:39 Absolute Monocytes 0.3 10^3/cmm (0.1-0.6) 06/06/25 08:39 Eosinophils (Manual) 0 % 06/06/25 08:39 Absolute Eosinophils 0.0 10^3/cmm (0.0-0.7) 06/06/25 08:39 Basophils (Manual) 0.0 % 06/06/25 08:39 Absolute Basophils 0.0 10^3/cmm (0.0-0.2) 06/06/25 08:39 Metamyelocytes 3.0 % 06/04/25 04:07 Myelocytes Cancelled 06/02/25 20:28 Promyelocytes Cancelled 06/02/25 20:28 Nucleated RBCs 1.0 /100WBC (0-1) 06/06/25 08:39 Nucleated RBCs # 0.0 /100WBC 06/05/25 17:18 Pathologist Review Yes 06/04/25 04:07 Hypersegmented Polys Cancelled 06/02/25 20:28 Blast Cells 3 % (0-0) H* 06/04/25 04:07 Smudge Cells 1+ H 06/04/25 04:07 Toxic Granulation Cancelled 06/02/25 20:28 Toxic Vacuolation Cancelled 06/02/25 20:28 Dohle Bodies 1+ H 06/04/25 04:07 Kamar Rods Cancelled 06/02/25 20:28 Platelet Estimate Decreased (Normal) L 06/06/25 08:39 Giant Platelets Cancelled 06/02/25 20:28 Polychromasia Cancelled 06/02/25 20:28 Hypochromasia 1+ H 06/04/25 04:07 Poikilocytosis Cancelled 06/02/25 20:28 Basophilic Stippling Cancelled 06/02/25 20:28 Anisocytosis Cancelled 06/02/25 20:28 Microcytosis Cancelled 06/02/25 20:28 Macrocytosis Cancelled 06/02/25 20:28 Spherocytes Cancelled 06/02/25 20:28 Sickle Cells Cancelled 06/02/25 20:28 Target Cells Cancelled 06/02/25 20:28 Tear Drop Cells Cancelled 06/02/25 20:28 Ovalocytes Cancelled 06/02/25 20:28 Stomatocytes Cancelled 06/02/25 20:28 Helmet Cells Cancelled 06/02/25 20:28 [place] Bodies Cancelled 06/02/25 20:28 Nicole Cells Cancelled 06/02/25 20:28 Crenated Cell Cancelled 06/02/25 20:28 Acanthocytes (Spur) Cancelled 06/02/25 20:28 Rouleaux Cancelled 06/02/25 20:28 Schistocytes Cancelled 06/02/25 20:28 RBC Morph Comment Cancelled 06/02/25 20:28 Peripher Smr Path Cons Sent for review 06/02/25 04:32 Haptoglobin 342.0 mg/L (30-200) H 06/02/25 04:32 Sodium 132 mmol/L (136-145) L 06/06/25 08:39 Potassium 3.8 mmol/L (3.5-5.1) 06/06/25 08:39 Chloride 90 mmol/L (98-107) L 06/06/25 08:39 Carbon Dioxide 26 mmol/L (22-29) 06/06/25 08:39 Anion Gap 19.8 (5-19) H 06/06/25 08:39 BUN 20 mg/dL (8-23) 06/06/25 08:39 Creatinine 0.8 mg/dL (0.5-0.9) 06/06/25 08:39 GFR Calculation 71.1 mL/min (90-130) L 06/06/25 08:39 Glucose 320 mg/dL (65-115) H 06/06/25 08:39 POC Glucose 117 mg/dL (70-110) H 06/06/25 05:59 Estimat Average Glucose 134 05/30/25 06:55 Hemoglobin A1c 6.3 % (4.0-6.0) H 05/30/25 06:55 Calculated Osmolality 289 mOsm/kg (285-295) 06/06/25 08:39 Lactic Acid 1.9 mmol/L (0.5-2.2) 05/30/25 11:46 Calcium 8.9 mg/dL (8.5-10.5) 06/06/25 08:39 Total Bilirubin 0.2 mg/dL (0.15-1.2) 06/02/25 04:32 AST 5 U/L (0-32) 06/02/25 04:32 ALT 11 U/L (0-33) 06/02/25 04:32 Alkaline Phosphatase 61 U/L (35-105) 06/02/25 04:32 Lactate Dehydrogenase 78 U/L (135-214) L 06/02/25 04:32 Troponin T Baseline 11 ng/L (0-10) H 05/30/25 09:55 Troponin T 120 Minute 10.31 ng/L (0-10) H 05/30/25 11:46 Delta Troponin T -0.69 ABS# (0-10) L 05/30/25 11:46 Troponin T Hi Sens 6Hr 9.83 ng/L (0-10) 05/30/25 15:48 Troponin T Hi Sens 6Hr Delta -1.17 ng/L (0-12) L 05/30/25 15:48 NT-Pro-B Natriuret Pep 205 pg/mL (0-125) H 05/31/25 04:28 Total Protein 5.1 g/dL (6.6-8.7) L 06/02/25 04:32 Albumin 3.1 g/dL (3.5-5.2) L 06/02/25 04:32 Globulin 2.0 g/dL (1.3-4.6) 06/02/25 04:32 Triglycerides 100 mg/dL (0-150) 05/30/25 06:55 Cholesterol 122 mg/dL (0-200) 05/30/25 06:55 LDL Cholesterol, Calc 42 mg/dL (50-129) L 05/30/25 06:55 HDL Cholesterol 60 mg/dL (60-100) 05/30/25 06:55 LDL/HDL Ratio 0.70 RATIO (0.00-3.22) 05/30/25 06:55 Cholesterol/HDL Ratio 2.03 mg/dL (0.0-4.40) 05/30/25 06:55 Procalcitonin 0.11 ng/mL (0-0.5) 05/30/25 06:55 TSH 2.48 uIU/mL (0.27-4.20) 05/30/25 06:55 Urine Color [place] (Yellow) A 05/30/25 09:52 Urine Appearance Clear (CLEAR) 05/30/25 09:52 Urine pH 7.0 (5-7) 05/30/25 09:52 Ur Specific [place] 1.010 (1.005-1.030) 05/30/25 09:52 Urine Protein Negative (Negative) 05/30/25 09:52 Urine Glucose (UA) Negative (Normal) 05/30/25 09:52 Urine Ketones Negative (Negative) 05/30/25 09:52 Urine Blood Negative (Negative) 05/30/25 09:52 Urine Nitrate Negative (Negative) 05/30/25 09:52 Urine Bilirubin Negative (Negative) 05/30/25 09:52 Urine Urobilinogen 1.0 mg/dL (Negative) 05/30/25 09:52 Ur Leukocyte Esterase Negative (Negative) 05/30/25 09:52 Urine RBC 0-2 /hpf (0-2) 05/30/25 09:52 Urine WBC 0-5 /hpf (0-5) 05/30/25 09:52 Ur Squamous Epith Cells 0-5 /hpf (0-5) 05/30/25 09:52 Amorphous Sediment Not Reportable 05/30/25 09:52 Urine Bacteria None seen /hpf (NONE) 05/30/25 09:52 Hyaline Casts 1.21 /lpf 05/30/25 09:52 Nasal MRSA (PCR) Not detected (Not Detecte) 05/30/25 16:45 Vancomycin Trough 17.7 ug/mL (10-15) H 06/01/25 19:07 Adenovirus (PCR) Not detected (NOT DETECT) 05/30/25 16:45 C. pneumoniae DNA (PCR) Not detected (NOT DETECT) 05/30/25 16:45 Coronavirus 229E (PCR) Not detected (NOT DETECT) 05/30/25 16:45 Human Metapneumovir PCR Not detected (NOT DETECT) 05/30/25 16:45 Influenza A (H1) PCR Not detected (NOT DETECT) 05/30/25 16:45 Influ A (H1/09) PCR Not detected (NOT DETECT) 05/30/25 16:45 Influenza A (H3) PCR Not detected (NOT DETECT) 05/30/25 16:45 Influenza Type A (PCR) Not detected (NOT DETECT) 05/30/25 16:45 Influenza Type B (PCR) Not detected (NOT DETECT) 05/30/25 16:45 M. pneumoniae (PCR) Not detected (NOT DETECT) 05/30/25 16:45 Parainfluenza 1 (PCR) Not detected (NOT DETECT) 05/30/25 16:45 Parainfluenza 2 (PCR) Not detected (NOT DETECT) 05/30/25 16:45 Parainfluenza 3 (PCR) Not detected (NOT DETECT) 05/30/25 16:45 Parainfluenza 4 (PCR) Not detected (NOT DETECT) 05/30/25 16:45 RSV Type A (PCR) Not detected (NOT DETECT) 05/30/25 16:45 RSV Type B (PCR) Not detected (NOT DETECT) 05/30/25 16:45 Entero/Rhino (PCR) Detected (NOT DETECT) A 05/30/25 16:45 SARS-CoV-2 (PCR) Not detected (NOT DETECT) 05/30/25 16:45 Blood Type A Positive 06/05/25 08:32 Rho(D) Type Rh positive 06/05/25 08:32 Antibody Screen Negative 06/01/25 15:56 Crossmatch See Detail 06/01/25 15:56 Vitals Last Vital Signs Temp 98.0 F 06/06/25 08:00 Pulse 99 06/06/25 09:24 Resp 18 06/06/25 09:08 BP 113/77 06/06/25 08:00 Pulse Ox 94 06/06/25 09:08 O2 Del Method Nasal Cannula 06/06/25 09:08 O2 Flow Rate 3 06/06/25 09:08 Discharge Plan Discharge Patient Disposition: Home Condition: Stable Prescriptions: New prednisone 20 mg Tablet 40 mg PO DAILY 5 Days Qty: 10 0RF linezolid [Zyvox] 600 mg tablet 600 mg PO BID 6 Days Qty: 12 0RF cefdinir 300 mg capsule 300 mg PO BID 6 Days Qty: 12 0RF Continued bumetanide 1 mg tablet 1 mg PO DAILY metoprolol tartrate 25 mg tablet 25 mg PO DAILY 90 Days Qty: 90 1RF atorvastatin 10 mg tablet 10 mg PO DAILY 90 Days Qty: 90 4RF insulin lispro [Humalog KwikPen Insulin] 100 unit/mL insulin pen See Rx Instructions SUBCUT TID PRN (Reason: blood sugar) Rx Instructions: Use per sliding scale subcutaneously three times daily as needed. doxepin 25 mg capsule 50 mg PO BEDTIME latanoprost 0.005 % drops 1 drp ophthalmic (eye) BEDTIME cholecalciferol (vitamin D3) 125 mcg (5,000 unit) capsule 125 mcg PO DAILY arformoterol 15 mcg/2 mL solution for nebulization 2 ml inhalation DAILY Allergy Relief (loratadine) 10 mg capsule 10 mg PO DAILY gabapentin 300 mg capsule 300 mg PO BID Qty: 60 2RF pantoprazole 40 mg tablet,delayed release (DR/EC) 40 mg PO BID Qty: 180 0RF venlafaxine 150 mg capsule,extended release 24hr 150 mg PO DAILY Trulicity 3 mg/0.5 mL pen injector 3 mg SUBCUT Q7D Rx Instructions: ON WEDNESDAY levothyroxine 25 mcg tablet 25 mcg PO QAM magnesium hydroxide [Dulcolax (magnesium hydroxide)] 400 mg/5 mL Suspension 30 ml PO Q2H PRN (Reason: Constipation) ubrogepant 50 mg Tablet 50 mg PO 1XD PRN (Reason: Migraine Headache) benzonatate 200 mg capsule 200 mg PO TID PRN (Reason: cough) Qty: 30 0RF albuterol sulfate 90 mcg/actuation HFA aerosol inhaler 2 inh inhalation Q4H PRN (Reason: shortness of breath or wheezing) Qty: 6.7 0RF Rx Instructions: Please provide patient with a spacer ondansetron HCl 4 mg tablet 4 mg PO Q6H PRN (Reason: Nausea And Vomiting) prochlorperazine maleate 10 mg tablet 10 mg PO Q4H PRN (Reason: mild nausea) lactulose 10 gram/15 mL solution See Rx Instructions .ROUTE .COMPLEX PRN (Reason: constipation) Rx Instructions: Take 30 mL every 2 hours until bowel movement. If no bowel movement within 72 hours, may repeat. aspirin [Aspir-81] 81 mg Tablet,Delayed Release (Dr/Ec) 81 mg PO DAILY Discontinued prednisone 20 mg tablet See Rx Instructions .ROUTE .COMPLEX Rx Instructions: TAKE 3 TABLETS BY MOUTH DAILY FOR 3 DAYS, THEN 2 TABS DAILY FOR 3 DAYS, THEN 1 TAB DAILY FOR 3 DAYS,THEN ONE-HALF TAB DAILY FOR 4 DAYS. Discharge Order = DC NOW: Discharge Order (Routine); Ordered 06/06/25 Ordered By: Devon Snyder Referrals: Anthony Cardoso MD [Hospitalist, Oncology] - 1-3 days Raad Bhatt FNP [Primary Care Provider, Family Practice] - 06/15/25 10:00 am Discharge Diet: Cardiac Discharge Activity: Resume usual activity Patient Instructions: Prednisone (By mouth), Linezolid (By mouth), Thrombocytopenia (DC), Pneumonia (DC), Bacteremia (DC), Opioid Safety, Patient Portal & Pankaj Instructions Activity Restrictions/Additional Instructions: -please follow up with Dr. Cardoso in 48 hours Discharge Attestations Time Spent in Discharge Care*: greater than 30 min Status at Discharge: Cognitive status at discharge: cognitively intact, Behavioral status at discharge: cooperative, Quality Metrics Clinical Quality Measures [ No reported AMI, CVA or VTE this stay] Coding Level of Care Code 54121 Total time (in minutes) for Discharge: 45 Diagnoses Neutropenia D70.9 Chemotherapy induced neutropenia D70.1; T45.1X5A Pneumonia J18.9 Sepsis A41.9 Acute hypoxic respiratory failure J96.01 Immunocompromised state D84.9 Thrombocytopenia D69.6 COPD exacerbation J44.1 Rhinovirus B34.8 Staphylococcus epidermidis bacteremia R78.81; B95.7
--- NOTE | 2025-06-06 12:06 | PC.NURSE ---
PAC de-accessed by this nurse Marcel MYLES
== END 2025-06-06 12:09 | disposition home or self-care (01) | DRG 871 ==
LOC: ER 10:22 → MEDSURG 14:50
PROVIDERS: Admitting Provider Family Medicine; Emergency Provider Family Medicine; PCP Registered Nurse; Visit Provider Family Medicine
DX: A41.9 Sepsis, unspecified organism (principal); J18.9 Pneumonia, unspecified organism; J96.21 Acute and chronic respiratory failure with hypoxia; J44.0 Chronic obstructive pulmonary disease with (acute) lower respiratory infection; J44.1 Chronic obstructive pulmonary disease with (acute) exacerbation; D84.821 Immunodeficiency due to drugs; C34.11 Malignant neoplasm of upper lobe, right bronchus or lung; C79.31 Secondary malignant neoplasm of brain; Z68.42 Body mass index [BMI] 45.0-49.9, adult; D70.1 Agranulocytosis secondary to cancer chemotherapy; T45.1X5A Adverse effect of antineoplastic and immunosuppressive drugs, initial encounter; D64.81 Anemia due to antineoplastic chemotherapy; D69.59 Other secondary thrombocytopenia; B97.89 Other viral agents as the cause of diseases classified elsewhere; F17.210 Nicotine dependence, cigarettes, uncomplicated; E87.70 Fluid overload, unspecified; E11.42 Type 2 diabetes mellitus with diabetic polyneuropathy; K21.9 Gastro-esophageal reflux disease without esophagitis; I50.9 Heart failure, unspecified; I11.0 Hypertensive heart disease with heart failure; E66.9 Obesity, unspecified; G47.30 Sleep apnea, unspecified; E03.9 Hypothyroidism, unspecified; F31.9 Bipolar disorder, unspecified; F43.10 Post-traumatic stress disorder, unspecified; K59.09 Other constipation; Z99.81 Dependence on supplemental oxygen; Z79.82 Long term (current) use of aspirin; Z79.85 Long-term (current) use of injectable non-insulin antidiabetic drugs; Z79.4 Long term (current) use of insulin; Z92.3 Personal history of irradiation
CPT/HCPCS: 36415; 36416; 36430; 36591; 36592; 71045; 71275; 76770; 80048; 80053; 80061; 80202; 80503; 81001; 82962; 83010; 83036; 83605; 83615; 83880; 84145; 84443; 84484; 85007; 85025; 86850; 86900; 86920; 87040; 87070; 87077; 87150; 87186; 87205; 87486; 87581; 87633; 93005; 93306; 94640; 94664; 96365; 96367; 96372; 96375; 99214; 99285; C8929; J1815; J2270; J2405; J2470; J2543; J2919; J3373; J3490; J7030; J7050; J7512; J7626; J9999; P9016; P9035; Q5101

== ENCOUNTER 2025-06-13 06:52 | Outpatient (CLI) | payer MEDICARE, MEDICAID, SELFPAY ==
--- NOTE | 2025-06-13 07:15 | MR_ITS ---
WS: [id number] MRI BRAIN WITH AND WITHOUT CONTRAST HISTORY: primary small cell carcinoma COMPARISON: 05/09/2025, 12/18/2024 TECHNIQUE: Multiplanar imaging performed through the brain with MultiHance 20 ml's IV. No acute infarct. No restricted diffusion. Mild volume loss with moderate periventricular white matter changes and bilateral ischemic changes in the tanya. Some of the periventricular white matter changes may be due to treatment for patients brain metastasis. Ventricles and extra-axial spaces are normal. Clivus and pituitary gland are normal. Visualized posterior fossa and brainstem are also normal. Bilateral ring-enhancing lesions in the centrum semiovale are reidentified. The largest on the this 6.9 mm. Slightly smaller measuring 6 mm on the RIGHT. Previously described tiny focus in the cortex of the high RIGHT parietal lobe is not definitely identified on today's exam although there is some motion artifact. 4 mm enhancing RIGHT temporal lobe metastatic lesion with a small amount of surrounding edema. Dural venous sinuses are normal. Paranasal sinuses: Very mild mucoperiosteal thickening in the sphenoid sinuses. No air-fluid levels. Mastoid air cells: Small effusion LEFT mastoid air cell. Calvarium and scalp: Normal. MR/MR head wo/w con [id number] IMPRESSION: 1. 3 enhancing metastatic lesions are noted in the cerebrum. These were previo usly described on 05/09/2025 without increased in size or improvement. The larges t 6.9 mm in the LEFT centrum semiovale. 6 mm enhancing lesion in the RIGHT cent rum semiovale and 4 mm enhancing metastatic lesion in the RIGHT temporal lobe. No new metastatic foci identified. 2. The previously described very tiny foci of possible metastatic sites toward s the RIGHT parietal vertex are not identified. 3. Confluent white matter changes surrounding the ventricles. Suspect this is a combination of treatment for metastatic disease and small vessel disease.
[2025-06-13] MEDS: gadobenate dimeglumine 20 mL vial IV (07:42)
== END 2025-06-13 06:53 | disposition home or self-care (01) ==
LOC: RAD 06:54
PROVIDERS: PCP Registered Nurse; Visit Provider Internal Medicine Medical Oncology
DX: C34.11 Malignant neoplasm of upper lobe, right bronchus or lung (principal); G93.89 Other specified disorders of brain; R90.0 Intracranial space-occupying lesion found on diagnostic imaging of central nervous system; I67.89 Other cerebrovascular disease
CPT/HCPCS: 70553

== ENCOUNTER 2025-06-23 20:53 | Emergency (ER) | payer MEDICARE, MEDICAID, SELFPAY ==
--- NOTE | 2025-06-23 20:29 | XRR_ITS ---
PROCEDURE INFORMATION: Exam: XR Chest Exam date and time: 06/23/2025 8:53 PM Age: 70 years old Clinical indication: Chest pressure; Prior surgery; Surgery date: 6+ months; Surgery type: Port a cath. Gb; C/O chest pain. History of lung cancer. ; Additional info: Cp TECHNIQUE: Imaging protocol: Radiologic exam of the chest. Views: 1 view. COMPARISON: CT angio chest PE protcl [id number] 05/30/2025 12:22 PM FINDINGS: Limitations: Patient is rotated to the right. Tubes, catheters and devices: Left IJ Port-A-Cath terminates in the upper right atrium. Lungs: Similar appearance of the lungs, including a known right perihilar mass. Mild streaky left basilar opacities are similar to prior. No new airspace disease. Pleural spaces: Unremarkable. No pleural effusion. No pneumothorax. Heart/Mediastinum: Stable cardiomediastinal silhouette given degree of rotation. Bones/joints: Unremarkable. XR/XR chest 1V portable [id number] IMPRESSION: Little interval change.
--- NOTE | 2025-06-23 20:29 | ECG_ITS ---
[facility] Voice Test Date: 2025-06-23 Pat Name: Marli Eli Department: Room: Gender: Female Viscosity Tester: : [id number] Requested By: Malini Umana Order Number: [id number] Delgado MD: Marisa Butterfield M.D. Measurements Intervals [place] Rate: 116 P: 64 IA: 136 QRS: 55 QRSD: 134 T: 39 QT: 343 QTc: 477 Interpretive Statements SINUS TACHYCARDIA INDETERMINATE AXIS RIGHT BUNDLE BRANCH BLOCK [120+ ms QRS DURATION, UPRIGHT V1, 40+ ms S IN I/aVL/V4/V5/V6] Compared to ECG 06/04/2025 21:57:22 Indeterminate axis now present Electronically Signed On 06-26-2025 19:32:21 CDT by Marisa Butterfield M.D. [email or web address]
--- OUTSIDE RECORDS SUMMARY | 2025-06-23 20:58 | XMS_ITS | Patient Health Record ---
Author Organization [facility] Address [address] [place] [address] Care Team Providers Care Rfid Strategist Name Role Phone Augusto Nicole [phone] Allergies Allergen (clinical drug ingredient) Drug/Non Drug [...] Status W/U Status Risk Notes Problem Scabies (591854939) Scabies (133.0) 12/05 Problem resolved confirmed [id number]- Problem Bipolar affective disorder, currently depressed, mild (554954184) Bipolar I disorder, most recent episode (or current) depressed, mild (296.51) 2009 Problem resolved confirmed [id number]- Problem Morbid obesity (140457457) Morbid obesity (278.01) 2003 Problem resolved confirmed [id number]- Problem Subarachnoid hemorrhage (03147915) Subarachnoid hemorrhage (430) 2010 Problem resolved confirmed [id number]- Problem Acute respiratory failure (80540398) Acute respiratory failure (518.81) 2016 Problem resolved confirmed [id number]- Problem Female stress incontinence (92175738) Female stress incontinence (625.6) 2013 Problem resolved confirmed [id number]- Problem Altered consciousnes s (6174388) Transient alteration of awareness (780.02) 2007 Problem resolved confirmed [id number]- Problem Headache (16523071) Headache (784.0) 04/06 Problem resolved confirmed [id number]- Problem Shortness of breath (230906994) Shortness of breath (786.05) 2007 Problem resolved confirmed [id number]- Problem Wheezing (72659395) Wheezing (786.07) 2010 Problem resolved confirmed [id number] [id number]- Problem Cough (01722064) Cough (786.2) 2005 Problem resolved confirmed [id number]- Problem Heartburn (65636428) Heartburn (787.1) 2007 Problem resolved confirmed [id number] [id number]- Problem Diarrhea (01846285) Diarrhea (787.91) 2007 Problem resolved confirmed [id number]- Problem Dysuria (94888917) Dysuria (788.1) 2008 Problem resolved confirmed [id number] [id number]- Problem Urge incontinence of urine (59707013) Urge incontinence (788.31) 2007 Problem resolved confirmed [id number]- Problem Urinary frequency (587560143) Urinary frequency (788.41) 2011 Problem resolved confirmed [id number] [id number]- Problem Gynecological examination normal (894742929490561) Routine gynecological examination (V72.31) 2008 Problem resolved confirmed Mane-98 [id number]- Problem Sleep apnea (71176844) Sleep apnea (780.57) 2014 Problem resolved confirmed Mane-98 5911- Problem Rash (682521546) Rash (782.1) 2011 Problem resolved confirmed Mane-98 [id number]- Problem Depression (238059157) Depression (311) 2004 Problem resolved confirmed Mane-98 5911- Problem Low back pain (418712166) Low back pain (724.2) 2010 Problem resolved confirmed Mane-98 [id number]- Problem Thoracic back pain (995537032) Upper back pain (724.1) 2008 Problem resolved confirmed Mane-98 [id number]- Problem Headache (58852311) Headache (307.81) 2009 Problem resolved confirmed Mane-98 [id number]- Problem Hypercholesterolemia (78839169) Hypercholesterolemia (272.0) 2003 Problem resolved confirmed Mane-98 5911- Problem Congenital heart disease (72862857) Imperfect heart valve (746.89) 2009 Problem resolved confirmed Mane-98 5911- Problem Major depression, single episode (22764251) Major depression, single episode, unspecified (296.20) 2003 Problem resolved confirmed Mane-98 5911- Problem Tuberculosis screening (964615962) Screening for pulmonary tuberculosis (V74.1) 2010 Problem resolved confirmed Mane-98 [id number]- Problem Shortness of breath (384047061) Shortness of breath (786.09) 2010 Problem resolved confirmed Mane-98 5911- Problem Shoulder pain (62422342) Shoulder pain (719.41) 2004 Problem resolved confirmed Mane-98 5911- Problem Onychomycosis caused by dermatophyte (171822048) Toe onychomycosis (110.1) 2004 Problem resolved confirmed Mane-98 5911- Problem Nosebleed (091053239) Nosebleed (784.7) 0 2008 Problem resolved confirmed Mane-98 5911- Problem Allergic rhinitis caused by pollen (45830379) Allergies (477.0) 2014 Problem resolved confirmed Mane-98 5911- Problem Bruising (389614409) Bruising (782.7) 2008 Problem resolved confirmed Mane-98 5911- Problem Chest pain (72714284) Chest pain (786.50) 2007 Problem resolved confirmed Mane-98 5911- Problem Acute exacerbation o f chronic obstructive airways disease (234697105) Chronic bronchitis, obstructive, with (acute) exacerbation (491.21) 2016 Problem resolved confirmed Mane-98 5911- Problem Disorder of hematopoietic system (78865955) Other abnormal findings on blood examination (790.99) 2015 Problem resolved confirmed Mane-98 5911- Problem Disorder of hematopoietic system (69640696) Other abnormal laboratory result on blood (790.99) 2007 Problem resolved confirmed Mane-98 5911- Problem Pleural pain (8234190) Pleural pain (786.52) 2011 Problem resolved confirmed Mane-98 5911- Problem Sore throat (345438622) Sore Throat (462) 2007 Problem resolved confirmed Mane-98 5911- Problem Tobacco abuse (9179101582) Tobacco abuse (305.1) 2003 Problem resolved confirmed Mane-98 5911- Problem Acute exacerbation o f chronic obstructive airways disease (461619093) Acute exacerbation of chronic obstructive pulmonary disease (COPD) (491.21) 2013 Problem resolved confirmed Mane-98 5911- Problem Poisoning caused by antidepressant (28055620) Antidepressant medication overdose (969.0) 2007 Problem resolved confirmed Mane-98 5911- Problem Tobacco user (344517216) Cigarette smoking (305.1) 2009 Problem resolved confirmed Mane-98 5911- Problem Depressive disorder (11814890) Depressive disorder not elsewhere classified (311) 2009 Problem resolved confirmed Mane-98 5911- Problem Gastroesophageal reflux disease (774233103) Gastroesophageal reflux disease (530.81) 2014 Problem resolved confirmed Mane-98 5911- Problem Generalized abdomina l pain (289222061) Generalized abdominal pain (789.07) 2013 Problem resolved confirmed Mane-98 5911- Problem Solitary nodule of lung (586601512) Lung nodule (518.89) 2013 Problem resolved confirmed Mane-98 5911- Problem Lymphadenopathy (66354068) Lymphadenopathy (785.6) 2015 Problem resolved confirmed Mane-98 5911- Problem Family history of malignant neoplasm of ovary (040780533) Family history of ovarian cancer (V16.41) 2007 Problem resolved confirmed Mane-98 5911- Problem Mixed hyperlipidemia (851342722) Hypercholesterolemia with hypertriglyceridemia (272.2) 2005 Problem resolved confirmed Mane-98 5911- Problem Hypertension (16892333) Hypertension (401.1) 2010 Active confirmed Mane-98 5911- Problem Insomnia (266209662) Insomnia (307.41) 2008 Problem resolved confirmed Mane-98 5911- Problem Pain in limb (76836517) Leg pain (729.5) 2006 Problem resolved confirmed Mane-98 5911- Problem Mitral valve regurgitation (72278444) Mitral valve regurgitation (424.0) 2004 Problem resolved confirmed Mane-98 5911- Problem Peripheral neuropath y (832031079) Peripheral neuropathy (356.9) 2015 Active confirmed Mane-98 5911- Problem Precordial pain (08105894) Precordial chest pain (786.51) 2004 Problem resolved confirmed Mane-98 5911- Problem Sinus tachycardia (47818904) Sinus tachycardia (427.89) 2008 Problem resolved confirmed Mane-98 5911- Problem Sleep apnea (03459204) ABIGAIL (780.57) 2013 Problem resolved confirmed Mane-98 5911- Problem Serous otitis media (54215744) Serous otitis media (381.4) 2006 Problem resolved confirmed Mane-98 5911- Problem Tobacco user (984294957) Tobacco abuse affecting health (305.1) 2012 Problem resolved confirmed Mane-98 5911- Problem Needs influenza immunization (578312644) Vaccination against other viral diseases, Influenza (V04.81) 2009 Problem resolved confirmed Mane-98 5911- Problem Candidiasis (81364902) Yeast infection (112.9) 2015 Problem resolved confirmed Mane-98 5911- Problem Anxiety depression (392972739) Anxiety with depression (300.4) 2007 Problem resolved confirmed Mane-98 5911- Problem Common migraine (81516548) Common migraine (346.10) 2009 Problem resolved confirmed Mane-98 5911- Problem Obstructive sleep apnea (45083992) Obstructive sleep apnea (780.57) 2009 Problem resolved confirmed Mane-98 5911- Problem Nondependent alcohol abuse, episodic (391326160) Alcohol abuse, episodic (305.02) 2010 Problem resolved confirmed Mane-98 5911- Problem Chronic obstructive pulmonary disease (74857264) Chronic obstructive pulmonary disease (496) 2008 Problem resolved confirmed Mane-98 5911- Problem Migraine with aura (8517189) Classic migraine (346.00) 2007 Problem resolved confirmed Mane-98 5911- Problem Constipation (60825301) Constipation (564.01) 2009 Problem resolved confirmed Mane-98 5911- Problem Depression (994419674) Depression (296.20) 2003 Problem resolved confirmed Mane-98 5911- Problem Exposure to coug h and potentially infected aerosol from TB patient (V15.85) 2009 Problem resolved confirmed Mane-98 5911- Problem Knee pain (7768776407) Knee pain (719.46) 2015 Problem resolved confirmed Mane-98 5911- Problem Urinary tract infection (97834085) Urinary tract infection (595.0) 2008 Problem resolved confirmed Mane-98 5911- Problem Elbow pain (64477991) Elbow pain (719.42) 2012 Problem resolved confirmed Mane-98 5911- Problem Heel pain (1048251) Heel pain (729.5) 2007 Problem resolved confirmed Mane-98 5911- Problem Pneumococcal pneumonia (216612474) Acute lobar pneumonia (481) 2008 Problem resolved confirmed Mane-98 5911- Problem Chronic insomnia (547401890) Chronic insomnia (307.42) 2012 Problem resolved confirmed Mane-98 5911- Problem COPD - Chronic obstructive pulmonary disease (03414489) COPD (496) 2012 Problem resolved confirmed Mane-98 5911- Problem Tinea pedis (2198919) Tinea pedis (110.4) 2013 Problem resolved confirmed Mane-98 5911- Problem Acute upper respiratory infection (78928184) Upper respiratory illness (465.8) 2009 Problem resolved confirmed Mane-98 5911- Problem Vaginal discharge (053437198) Vaginal discharge (616.10) 2009 Problem resolved confirmed Mane-98 5911- Problem Epigastric pain (98650480) Epigastric abdominal pain (789.06) 2004 Problem resolved confirmed Mane-98 5911- Problem Insect bite (657491670) Insect bite (919.4) 2011 Problem resolved confirmed Mane-98 5911- Problem Shoulder joint pain (046320051) Joint pain, shoulder region (719.41) 2004 Problem resolved confirmed Mane-98 5911- Problem Mild major depression, single episode (44415002) Major depression, single episode, mild (296.21) 2011 Problem resolved confirmed Mane-98 5911- Problem Coronary arteriosclerosis (disorder) (89197872) Coronary artery disease, of [place] coronary artery (414.01) 2004 Problem resolved confirmed Mane-98 5911- Problem Type II diabetes mellitus without complication (652097150) NIDDM (250.00) 2005 Problem resolved confirmed Mane-98 5911- Problem Pedal edema (168705836) Pedal edema (782.3) 2015 Problem resolved confirmed Mane-98 5911- Problem Possible STD exposure (V15.85) 2010 Problem resolved confirmed Mane-98 5911- Problem Diabetes mellitus type 2 (disorder) (04036310) Type 2 diabetes (250.00) 2005 Problem resolved confirmed Mane-98 5911- Problem Screening for malignant neoplasm of breast (472991402) Screening for breast cancer, unspecified (V76.10) 2015 Problem resolved confirmed Mane-98 5911- Plan Of Treatment No Information Medical (General) History Surgical History Surgery Date(Month/Year) AppendectomyCholecystectomy: 1979; Tubal Ligation: 1986;
--- OUTSIDE RECORDS SUMMARY | 2025-06-23 20:58 | XMS_ITS | Clinical Summary ---
Author Organization [facility] Address [address] [place] [address] Care Team Providers Care Aligner Barrel And Receiver Name Role Phone Unavailable Primary Care Provider [...] 90 Tablet 0 10/28/19 21 Active Insulin [place], Disposable, 31 gauge x 5/16 Needle 100 [place] [facility] [place]Non[place]Drug; Combo Route) route. 04/09/20 20 Active nebulizer [...] complication, without long-term current use of insulin Take 1 Tablet (20 mg) by mouth daily. 90 Tablet 1 08/22/20 20 Active buPROPion HCL (WELLBUTRIN SR) 150 mg Sustained Release 12 hour tabletIndication s:Type 2 diabetes mellitus with hyperglycemia, without long-term current use of insulin,Chronic obstructive pulmonary disease, unspecified COPD type (CMS/HCC),Benign hypertension Take 1 Tablet (150 mg) by [...] deliveryIndicati ons:Respiratory failure with hypoxia, unspecified chronicity ([facility]) Home Oxygen Concentrator yes at 3 [...] complication associated with type 2 diabetes mellitus TAKE 1 CAPSULE BY MOUTH EVERY 8 [...] Encounters Date Type Department Care Team Description 06/19/2025 External Device Data STL ABSTRACTION Provider, Abstract 06/19/2025 External Device Data STL ABSTRACTION Provider, Abstract 05/29/2025 External Device Data STL ABSTRACTION Provider, Abstract 05/29/2025 External Device Data STL ABSTRACTION Provider, Abstract 05/29/2025 External Device Data STL ABSTRACTION Provider, Abstract 05/22/2025 12:46 PM CDT - 05/22/2025 2:28 PM CDT Emergency [facility] Emergency Medicine [address] [place] [address] Armando Santizo, DO Minor head injury without loss of consciousness, [...] on file Legal Sex Female 1:48 PM BRINE ROOM 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 Gender Identity Not on file Sexual Orientation [...] Additional history exists INFLUENZA VACCINE (#1) 2025 , 06/08/2023, 06/06/2023, Additional history exists COVID-19 Vaccine (2024-2 6 season) 2025 08/13/2022, 08/19/2021, 12/05/2020, Additional history exists COLORECTAL SCREENING 01/11/2029 01/11/2019, 01/12/20 Colorectal Cancer Screening 01/11/2029 DTAP/TDAP/TD VACCINES (3 - T d or Tdap) 05/08/2031 05/08/2021, 08/25/2012 ZOSTER VACCINE Completed 08/10/2022, 09/2019, 07/26/2018, Additional history exists PNEUMOCOCCAL VACCINE 50+ YEARS Completed 0 04/12/2023, 09/06/2019, 05/31/2018, Additional history exists Medical Devices Implanted Type Area Property Management Supervisor Device Identifier Shelf Expiration Date Model / Serial / Lot Stent Istent Trbclr Micro-Bypss Lt [id number] - [id number] Implanted:Qty: 1 on 09/20/2024 by Low Marx MD at [facility] Eye Left: Eye Minka 03/05/2026 [id number] / [id number] / Stent Istent Trbclr Micro-Bypss Rt [id number] - [id number] Implanted:Qty: 1 on 12/20/2024 by Low Marx MD at [facility] Eye Right: Eye Minka 04/05/2027 [id number] / [id number] / [id number] Lens Iol Tecnis Eyhance 19.5 [id number] - [id number] Implanted:Qty: 1 on 09/20/2024 by Low Marx MD at [facility] Lens Left: Eye [employer] 02/06/2027 [id number] / [id number] / Lens Iol Murphy Ricardo 19.0 [id number] - [id number] Implanted:Qty: 1 on 12/20/2024 by Low Marx MD at [facility] Lens Right: Eye [employer] 04/25/2026 [id number] / [id number] / Procedures Procedure Name Priority Date/Time Associated [...] OR WO CAD Routine 10/30/2020 1:26 PM BRINE ROOM LABORER Screening mammogram, encounter for MICROALBUMIN/CREATIN INE RATIO, [...] A1C 7.6(H) <5.7 % of total Hgb [facility] Comment: For someone without known diabetes, a [...] of diabetes for children. Test Performed at: [facility] [address] [place] [address] Jean Carlos Yi D.O., MPH Blood 05/06/2021 9:36 AM CDT 05/07/2021 4:34 AM CDT Juancarlos DELGADO CHEMISTRY ORDERABLES Final Re sult Performing Organization Address [facility] Co de Phone Number [facility] [address] [place] [address] * (ABNORMAL) LIPID PANEL (05/06/2021 9:36 AM CDT) CHOLESTEROL 193 <200 mg/dL [facility] HDL 44(L) > OR = 50 mg/dL [facility] TRIGLYCERIDE 369(H) <150 mg/dL [facility] Comment: If a non-fasting specimen was collected, consider repeat triglyceride testing on a fasting specimen if clinically indicated. Radhika et al. J. of Clin. Lipidol. 2015;9:129-169. LDL CALCULATED 100(H) mg/dL (calc) [facility] Comment: Reference range: <100 Desirable range <100 mg/dL for primary prevention; <70 mg/dL for patients with CHD or diabetic patients with > or = 2 CHD risk factors. LDL-C is now calculated using the Miky-Patricia calculation, which is a validated novel method providing better accuracy than the Friedewald equation in the estimation of LDL-C. Miky SS et al. SABRINA. 2013;310(19): 6342-6756 (http://education.Tame/faq/OYQ107) CHOL/HDL RATIO 4.4 <5.0 (calc) [facility] TOTAL NON-HDL CHOL(LDL+VLDL) 149(H) <130 mg/dL (calc) [facility] Comment: For patients with diabetes plus 1 major ASCVD risk factor, treating to a non-HDL-C goal of <100 mg/dL (LDL-C of <70 mg/dL) is considered a therapeutic option. Test Performed at: [facility] [address] [place] [address] Jean Carlos Yi D.O., MPH Blood 05/06/2021 9:36 AM CDT 05/07/2021 4:34 AM CDT Juancarlos DELGADO CHEMISTRY ORDERABLES Final Re sult [facility] [address] [place] [address] * MAMMO SCREEN BILAT W OR WO CAD (10/30/2020 1:26 PM BRINE ROOM LABORER) Anatomical Region Laterality Modality Breast Bilateral Other Impressions 11/03/2020 11:28 AM BRINE ROOM LABORER : Focal asymmetry in the upper outer quadrant of the left breast for which additional imaging evaluation is recommended. BI-RADS ASSESSMENT: 0 - Incomplete Recommendation: Additional Imaging [id number] Narrative 11/03/2020 11:28 AM BRINE ROOM LABORER EXAM: MAMMO SCREEN BILAT W OR WO [...] ASSESSMENT: 0 - Incomplete Recommendation: Additional Imaging [id number] us Juancarlos DELGADO MAMMO ORDERABLES Final Result * MICROALBUMIN/CREATININE RATIO, RANDOM UR (12/19/2019 9:05 AM CDT) MICROALBUMIN, URINE 1.2 No Reference Range mg/dL 12/19/2019 8:46 PM CDT [facility] CREATININE, URINE 66.3 29.0 - 226.0 mg/dL 12/19/2019 8:46 PM CDT [facility] Comment:Reference Range vari es with fluid intake and diet. MICROALBUMIN/C REAT RATIO, UR 18.1 <25.0 mg/g 12/19/2019 8:46 PM CDT [facility] Urine URINE SPECIMEN OBTAINED BY CLEAN CATCH PROCEDURE / Unknown Collection / Unknown 12/19/2019 9:05 AM CDT 12/19/2019 7:43 PM CDT Narrative [facility] - 12/19/2019 8:46 PM CDT Condition Microalbumin/Creat ratio Normal Males <17 Normal Females <25 Microalbuminuria Males 17-299 Microalbuminuria Females 25-299 Overt proteinuria >=300 [place] NP URINE ORDERABLES Final Result [facility] CLIA# [id number] [address] [place] [id number] * (ABNORMAL) ENDOSCOPY, COLON, SCREENING (01/11/2019) Abstract Provider GI PROCEDURE ORDERABLES Final Result from Last 3 Months or Most Recently Relevant to Health Maintenance Insurance [place]ICAID [id number] Member Subscriber Plan / Payer (Ef fective 2021-Present) Name:Alcira Marli Sam Relation to Subscriber:Self Name:Alcira Marli Sam Payer ID:Not on file Group ID:Not on file Type:Medicaid Address: [address] DUAL ADVANTAGE O [facility] Advance Directives For more information, please contact: [phone] * Full Code (Latest Code Status on File) Date Activated Date Inactivated Comments 12/20/2024 9:49 AM 12/20/2024 1:54 PM * Full Code Date Activated Date Inactivated Comments 09/20/2024 11:42 AM 09/20/2024 3:30 PM
--- OUTSIDE RECORDS SUMMARY | 2025-06-23 20:58 | XMS_ITS | Encounter Summary ---
Author Organization [facility] Address [address] [place] [address] Care Team Providers Care Professor Of English Name Role Phone Radha Cowan MD Primary Care Provider Encounter Details Date Type Department Care Team (Latest Contact Info) Description 11/19/1999 Outpatient Historical [facility] Augusto Nicole Jr., MD [address] [place] [phone] Other convulsions (Primary Dx); Leiomyoma of uterus, unspecified; Screening for malignant neoplasm of the cervix Social History Tobacco Use Types Packs/Day Years Used Date Smoking Tobacco: Never Assessed Comments Unknown Sex and Gender Information Value Date Recorded Sex Assigned at Not on file Legal Sex Female 3:33 AM GANDY DANCER Gender Identity Not on file Sexual Orientation [...] R/O COVID-19 07/25/2020 07/25/2020 07/27/2020 5:01 AM GANDY DANCER R/O COVID-19 09/30/2020 09/30/2020 09/30/2020 7:23 PM GANDY DANCER documented as of this encounter Care Teams Professor Of English Relationship Specialty Start Date End Date Radha Cowan MD [address] [phone] PCP - General Family Practice 10/24/20 documented as of this encounter
--- OUTSIDE RECORDS SUMMARY | 2025-06-23 20:58 | XMS_ITS | Encounter Summary ---
Author Organization [facility] Address [address] [place]n: [place] [address] Care Team Providers Care Senior Research Fellow Name Role Phone Radha Cowan MD Primary Care Provider [phone] Encounter Details Date Type Department Care Team (Late st Contact Info) Description 03/17/2000 Outpatient Historical Augusto Nicole Jr., MD [address] [place] [id number] Social History Tobacco Use Types Packs/Day Years Used Date Smoking Tobacco: Never Assessed Comments Unknown Sex and Gender Information Value Date Recorded Sex Assigned at Not on file Legal Sex Female 3:33 AM TREAD CUTTER Gender Identity Not on file Sexual Orientation Not on file documented as of this encounter Plan of Treatment Not on file documented as of this encounter Visit Diagnoses Not on filedocumented in this encounter Additional Health Concerns Infection Onset Date Last Indicated Resolved Time R/O COVID-19 05/16/2020 05/16/2020 05/18/2020 12:3 1 AM CDT R/O COVID-19 07/25/2020 07/25/2020 07/27/2020 5:01 AM TREAD CUTTER R/O COVID-19 09/30/2020 09/30/2020 09/30/2020 7:23 PM TREAD CUTTER documented as of this encounter Care Teams Senior Research Fellow Relationship Specialty Start Date End Date Radha Cowan MD [address] [facility] [address] [place] [phone] PCP - General Family Practice 10/24/20 documented as of this encounter
--- OUTSIDE RECORDS SUMMARY | 2025-06-23 20:58 | XMS_ITS | Encounter Summary ---
Author Organization [facility] Address [address] [place] [address] Care Team Providers Care Manager Corporate Communications Name Role Phone Radha Cowan MD Primary Care Provider Encounter Details Date Type Department Care Team (Latest Contact Info) Description 01/06/1999 Outpatient Historical [facility] Augusto Nicole Jr., MD [address] [place] [phone] Insomnia, unspecified (Primary Dx); Depressive disorder, not elsewhere classified Social History Tobacco Use Types Packs/Day Years Used Date Smoking Tobacco: Never Assessed Comments Unknown Sex and Gender Information Value Date Recorded Sex Assigned at Not on file Legal Sex Female 3:33 AM EVALUATOR Gender Identity Not on file Sexual Orientation [...] R/O COVID-19 07/25/2020 07/25/2020 07/27/2020 5:01 AM EVALUATOR R/O COVID-19 09/30/2020 09/30/2020 09/30/2020 7:23 PM EVALUATOR documented as of this encounter Care Teams Manager Corporate Communications Relationship Specialty Start Date End Date Radha Cowan MD [address] [phone] PCP - General Family Practice 10/24/20 documented as of this encounter
--- OUTSIDE RECORDS SUMMARY | 2025-06-23 20:58 | XMS_ITS | Encounter Summary ---
Author Organization [facility] Address [address] [place] [address] Care Team Providers Care House Calls Nurse Practitioner Name Role Phone Radha Cowan MD Primary Care Provider Encounter Details Date Type Department Care Team (Latest Contact Info) Description 12/06/1998 Outpatient Historical [facility] Augusto Nicole Jr., MD [address] [place] [phone] Dietary surveil/senior counsel (Primary Dx) Social History Tobacco Use Types Packs/Day Years Used Date Smoking Tobacco: Never Assessed Comments Unknown Sex and Gender Information Value Date Recorded Sex Assigned at Not on file Legal Sex Female 3:33 AM TRANSITIONAL KINDERGARTEN TEACHER Gender Identity Not on file Sexual Orientation Not on file documented as of this encounter Plan of Treatment Not on file documented as of this encounter Visit Diagnoses Diagnosis Dietary surveil/senior counsel- Primary Dietary surveillance and counseling documented in this encounter Additional Health Concerns Infection Onset Date Last Indicated Resolved Time R/O COVID-19 05/16/2020 05/16/2020 05/18/2020 12:3 1 AM CDT R/O COVID-19 07/25/2020 07/25/2020 07/27/2020 5:01 AM TRANSITIONAL KINDERGARTEN TEACHER R/O COVID-19 09/30/2020 09/30/2020 09/30/2020 7:23 PM TRANSITIONAL KINDERGARTEN TEACHER documented as of this encounter Care Teams House Calls Nurse Practitioner Relationship Specialty Start Date End Date Radha Cowan MD [address] [facility] [address] [place] [address] PCP - General Family Practice 10/24/20 documented as of this encounter
--- OUTSIDE RECORDS SUMMARY | 2025-06-23 20:58 | XMS_ITS | Encounter Summary ---
Author Organization [facility] Address [address] [place] [address] Care Team Providers Care Material Manager Name Role Phone Radha Cowan MD Primary Care Provider [phone] Encounter Details Date Type Department Care Team (Latest Contact Info) Description 12/30/2000 Outpatient Historical [facility] Augusto Nicole Jr., MD [address] [place] [phone] Elevated sediment rate (Primary Dx); Osteoarthrosis, unspecified whether generalized or localized, unspecified site Social History Tobacco Use Types Packs/Day Years Used Date Smoking Tobacco: Never Assessed Comments Unknown Sex and Gender Information Value Date Recorded Sex Assigned at Not on file Legal Sex Female 3:33 AM HOT KNIFE FOXING CUTTER Gender Identity Not on file Sexual [...] R/O COVID-19 07/25/2020 07/25/2020 07/27/2020 5:01 AM HOT KNIFE FOXING CUTTER R/O COVID-19 09/30/2020 09/30/2020 09/30/2020 7:23 PM HOT KNIFE FOXING CUTTER documented as of this encounter Care Teams Material Manager Relationship Specialty Start Date End Date Radha Cowan MD [address] [phone] PCP - General Family Practice 10/24/20 documented as of this encounter
--- OUTSIDE RECORDS SUMMARY | 2025-06-23 20:58 | XMS_ITS | Encounter Summary ---
Author Organization [facility] Address [address] [place] [address] Care Team Providers Care Transportation Engineering Technician Name Role Phone Radha Cowan MD Primary Care Provider [phone]- [phone] Encounter Details Date Type Department Care Team (Latest Contact Info) Description 02/20/1999 Outpatient Historical [facility] Corey Burkett, Augusto Tang MD [address] [place] [phone] Vaginitis and vulvovaginitis, unspecified (Primary Dx); Bipolar I disorder, most recent episode (or current) unspecified (CMS/[facility]) Social History Tobacco Use Types Packs/Day Years Used Date Smoking Tobacco: Never Assessed Comments Unknown Sex and Gender Information Value Date Recorded Sex Assigned at Not on file Legal Sex Female 3:33 AM ROUTE PROCESS ADMINISTRATOR Gender Identity Not on file Sexual Orientation [...] R/O COVID-19 07/25/2020 07/25/2020 07/27/2020 5:01 AM ROUTE PROCESS ADMINISTRATOR R/O COVID-19 09/30/2020 09/30/202009/3009/30/2020 7:23 PM ROUTE PROCESS ADMINISTRATOR documented as of this encounter Care Teams Transportation Engineering Technician Relationship Specialty Start Date End Date Radha Cowan MD [address] [phone] PCP - General Family Practice 10/24/20 documented as of this encounter
--- OUTSIDE RECORDS SUMMARY | 2025-06-23 20:58 | XMS_ITS | Encounter Summary ---
Author Organization [facility] Address [address] [place] [address] Care Team Providers Care Bottom Turner Name Role Phone Radha Cowan MD Primary Care Provider +1- [phone] Encounter Details Date Type Department Care Team (Latest Contact Info) Description 03/24/2001 Outpatient Historical [facility] Corey Burkett, Augusto Tang MD [facility] [place] [address] Hip, thigh, leg, and ankle, [...] on file Legal Sex Female 3:33 AM YARN REWINDER Gender Identity Not on file Sexual Orientation [...] R/O COVID-19 07/25/2020 07/25/2020 07/27/2020 5:01 AM YARN REWINDER R/O COVID-19 09/30/2020 09/30/2020 09/30/2020 7:23 PM YARN REWINDER documented as of this encounter Care Teams Bottom Turner Relationship Specialty Start Date End Date Radha Cowan MD [address] [phone] PCP - General Family Practice 10/24/20 documented as of this encounter
--- OUTSIDE RECORDS SUMMARY | 2025-06-23 20:58 | XMS_ITS | Encounter Summary ---
Author Organization [facility] Address [address] [place] [address] Care Team Providers Care Deliverer Pharmacy Name Role Phone Radha Cowan MD Primary Care Provider Encounter Details Date Type Department Care Team (Latest Contact Info) Description 08/28/1998 Outpatient Historical [facility] Augusto Nicole Jr., MD [address] [place] [phone] Attention to dressings and sutures (Primary Dx); Dermatophytosis of foot Social History Tobacco Use Types Packs/Day Years Used Date Smoking Tobacco: Never Assessed Comments Unknown Sex and Gender Information Value Date Recorded Sex Assigned at Not on file Legal Sex Female 3:33 AM SKILLED NURSING FACILITY COUNSELOR Gender Identity Not on file Sexual [...] R/O COVID-19 07/25/2020 07/25/2020 07/27/2020 5:01 AM SKILLED NURSING FACILITY COUNSELOR R/O COVID-19 09/30/2020 09/30/2020 09/30/2020 7:23 PM SKILLED NURSING FACILITY COUNSELOR documented as of this encounter Care Teams Deliverer Pharmacy Relationship Specialty Start Date End Date Radha Cowan MD [address] [phone] PCP - General Family Practice 10/24/20 documented as of this encounter
--- OUTSIDE RECORDS SUMMARY | 2025-06-23 20:58 | XMS_ITS | Encounter Summary ---
Author Organization [facility] Address [address] [place] [address] Care Team Providers Care Sql Analyst Name Role Phone Radha Cowan MD Primary Care Provider Encounter Details Date Type Department Care Team (Latest Contact Info) Description 06/26/1999 Outpatient Historical [facility] Corey Burkett, Augusto Tang MD [facility] [place] [address] Esophageal reflux (Primary Dx); Headache(784.0); Insomnia with sleep apnea, unspecified; Need for prophylactic vaccination against Streptococcus pneumoniae (pneumococcus) Social History Tobacco Use Types Packs/Day Years Used Date Smoking Tobacco: Never Assessed Comments Unknown Sex and Gender Information Value Date Recorded Sex Assigned at Not on file Legal Sex Female 3:33 AM PHILOSOPHY INSTRUCTOR Gender Identity Not on file Sexual [...] R/O COVID-19 07/25/2020 07/25/2020 07/27/2020 5:01 AM PHILOSOPHY INSTRUCTOR R/O COVID-19 09/30/2020 09/30/2020 09/30/2020 7:23 PM PHILOSOPHY INSTRUCTOR documented as of this encounter Care Teams Sql Analyst Relationship Specialty Start Date End Date Radha Cowan MD [address] [phone] PCP - General Family Practice 10/24/20 documented as of this encounter
--- OUTSIDE RECORDS SUMMARY | 2025-06-23 20:58 | XMS_ITS | Encounter Summary ---
Author Organization [facility] Address [address] [place] [address] Care Team Providers Care Crude Oil Treater Name Role Phone Radha Cowan MD Primary Care Provider Encounter Details Date Type Department Care Team (Latest Contact Info) Description 01/12/2001 Outpatient Historical [facility] Augusto Nicole Jr., MD [address] [place] [phone] Pure hypercholesterolem (Primary Dx); Chest pain, unspecified; Screening examination for pulmonary tuberculosis Social History Tobacco Use Types Packs/Day Years Used Date Smoking Tobacco: Never Assessed Comments Unknown Sex and Gender Information Value Date Recorded Sex Assigned at Not on file Legal Sex Female 3:33 AM BAKERY CLERK Gender Identity Not on file Sexual [...] R/O COVID-19 07/25/2020 07/25/2020 07/27/2020 5:01 AM BAKERY CLERK R/O COVID-19 09/30/2020 09/30/2020 09/30/2020 7:23 PM BAKERY CLERK documented as of this encounter Care Teams Crude Oil Treater Relationship Specialty Start Date End Date Radha Cowan MD [address] [phone] PCP - General Family Practice 10/24/20 documented as of this encounter
--- OUTSIDE RECORDS SUMMARY | 2025-06-23 20:58 | XMS_ITS | Encounter Summary ---
Author Organization [facility] Address [address] [place] [address] Care Team Providers Care Glass Belt Sander Name Role Phone Radha Cowan MD Primary Care Provider Encounter Details Date Type Department Care Team (Latest Contact Info) Description 06/21/2018 Ancillary Orders [facility] Admitting [address] [place] [address] Raad Bhatt, FACS TEACHER [address] [place] [phone] Osteoarthritis of both knees, unspecified osteoarthritis type [...] file Legal Sex Female 3:33 AM COMMERCIAL AGENT Gender Identity Not on file Sexual [...] COVID-19 07/25/2020 07/25/2020 07/27/2020 5:01 AM COMMERCIAL AGENT R/O COVID-19 09/30/2020 09/30/2020 09/30/2020 7:23 PM COMMERCIAL AGENT documented as of this encounter Care Teams Glass Belt Sander Relationship Specialty Start Date End Date Radha Cowan MD [address] [phone] PCP - General Family Practice 10/24/20 documented as of this encounter
--- OUTSIDE RECORDS SUMMARY | 2025-06-23 20:58 | XMS_ITS | Encounter Summary ---
Author Organization [employer] Address [address] [place] [address] Care Team Providers Care Small Lot Operator Name Role Phone Unavailable Primary Care Provider Unavailabl e Encounter Details Date Type Department Care Team (Late st Contact Info) Description 06/19/2025 External Device Data STL ABSTRACTION [...] on file Legal Sex Female 1:48 PM TRAVEL COUNSELOR [employer]UB Gender Identity Not on file Sexual Orientation Not on file documented as of this encounter Plan of Treatment Not on file documented as of this encounter Visit Diagnoses Not on filedocumented in this encounter Additional Health Concerns Assessment Noted Time PHQ-9 Depression Total Score: 2 05/06/20 21 9:14 AM CDT documented as of this encounter
--- OUTSIDE RECORDS SUMMARY | 2025-06-23 20:58 | XMS_ITS | Encounter Summary ---
Author Organization [facility] Address [address] [place] [address] Care Team Providers Care Language Instructor Name Role Phone Radha Cowan MD Primary Care Provider [phone] Encounter Details Date Type Department Care Team (Latest Contact Info) Description 05/29/1999 Outpatient Historical [facility] Augusto Nicole Jr., MD [address] [place] [phone] Other seborrheic keratosis (Primary Dx) Social History Tobacco Use Types Packs/Day Years Used Date Smoking Tobacco: Never Assessed Comments Unknown Sex and Gender Information Value Date Recorded Sex Assigned at Not on file Legal Sex Female 3:33 AM FOUR CORNER FORMER MACHINE OPERATOR Gender Identity Not on file [...] R/O COVID-19 07/25/2020 07/25/2020 07/27/2020 5:01 AM FOUR CORNER FORMER MACHINE OPERATOR R/O COVID-19 09/30/2020 09/30/2020 09/30/2020 7:23 PM FOUR CORNER FORMER MACHINE OPERATOR documented as of this encounter Care Teams Language Instructor Relationship Specialty Start Date End Date Radha Cowan MD [address] [facility] [address] [place] [address] PCP - General Family Practice 10/24/20 documented as of this encounter
--- OUTSIDE RECORDS SUMMARY | 2025-06-23 20:58 | XMS_ITS | Encounter Summary ---
Author Organization [facility] Address [address] [place] [address] Care Team Providers Care Form Raiser Name Role Phone Radha Cowan MD Primary Care Provider [phone]- [phone] Encounter Details Date Type Department Care Team (Latest Contact Info) Description 12/20/2000 Outpatient Historical [facility] Augusto Nicole Jr., MD [address] [place] [phone] Pure hypercholesterolem (Primary Dx) Social History Tobacco Use Types Packs/Day Years Used Date Smoking Tobacco: Never Assessed Comments Unknown Sex and Gender Information Value Date Recorded Sex Assigned at Not on file Legal Sex Female 3:33 AM CARBONATION EQUIPMENT OPERATOR Gender Identity Not on file Sexual [...] R/O COVID-19 07/25/2020 07/25/2020 07/27/2020 5:01 AM CARBONATION EQUIPMENT OPERATOR R/O COVID-19 09/30/2020 09/30/2020 09/30/2020 7:23 PM CARBONATION EQUIPMENT OPERATOR documented as of this encounter Care Teams Form Raiser Relationship Specialty Start Date End Date Radha Cowan MD [address] [place] [phone] PCP - General Family Practice 10/24/20 documented as of this encounter
--- OUTSIDE RECORDS SUMMARY | 2025-06-23 20:58 | XMS_ITS | Encounter Summary ---
Author Organization [facility] Address [address] [place] [address] Care Team Providers Care Orthodontist Vice President Name Role Phone Radha Cowan MD Primary Care Provider +[phone]- [phone] Reason for Referral * Radiology Services (Routine) - Closed Specialty Diagnoses / Procedures Referred By Contac t Referred To Contact Radiology Diagnoses Lower extremity pain, right Procedures US VENOUS DOPPLER LEG RIGHT Raad Bhatt FNP [address] [place] [address] Phone: tel: fax: [facility] [address] [facility] [address] [place] [address] Phone: tel: fax: Referral ID Status Reason Start Date Expiration Date V isits Requested Visits Authorized [id number] Closed [facility] CTS to Schedule (SGF) 06/17/2018 07/18/2019 1 1 Encounter Details Date Type Department Care Team (Latest Contact Info) Description 06/17/2018 Ancillary Orders [facility] Centralized Scheduling [address] [facility] [address] [place] [address] Raad Bhatt FNP [address] [place] [address] Lower extremity pain, right Social History Tobacco Use Types Packs/Day Years Used Date Smoking Tobacco: Every Day Cigarettes 1 20 Smokeless Tobacco: Never Alcohol Use Standard Drinks/Week Comments Yes 0 (1 standard drink = 0.6 oz pur e alcohol) occasional Comments No Sex and Gender Information Value Date Recorded Sex Assigned at Not on file Legal Sex Female 3:33 AM WAREHOUSE LOGISTICS MANAGER Gender Identity Not on file Sexual [...] PM CDT Narrative 06/20/2018 10:03 PM CDT [facility] Radiology Services - Noninvasive Vascular [address] [address] Noninvasive Vascular Lab Venous Exam Unilateral Lower Extremity Duplex Patient: Marli Eli Study ID: US VENOUS DOPPLE Gender: F : 1955 Age: 63 Room: Height: Weight: BSA: Pt status: Outpatient Study Date: 06/17/2018 Study Time: 02:07:05 PM BSA: Ordering: Raad Bhatt Interpreting:Christo Hanson MD, RPVI Library Circulation Technician: Henok Bailey Summary Impression: No evidence of [...] Procedure Note Christo Hanson MD - 06/20/2018 [facility] Radiology Services - Noninvasive Vascular [address] [address] Noninvasive Vascular Lab Venous Exam Unilateral Lower Extremity Duplex Patient: Marli Eli Study ID: US VENOUS DOPPLE Gender: F : 1955 Age: 63 Room: Height: Weight: BSA: Pt status: Outpatient Study Date: 06/17/2018 Study Time: 02:07:05 PM BSA: Ordering: Raad Bhatt Interpreting:Christo Hanson MD, RPVI Library Circulation Technician: Henok Bailey Summary Impression: No evidence of [...] MD, RPVI Confirmed 06/20/2018 22:03 Raad Bhatt [facility] ORDERABLES Final Resul t documented in this encounter Visit Diagnoses Diagnosis Lower extremity pain, right Lower extremity pain, right documented in this encounter Additional Health Concerns Infection Onset Date Last Indicated Resolved Time R/O COVID-19 05/16/2020 05/16/2020 05/18/2020 12:3 1 AM CDT R/O COVID-19 07/25/2020 07/25/2020 07/27/2020 5:01 AM WAREHOUSE LOGISTICS MANAGER R/O COVID-09/30/2020 09/30/2020 09/30/2020 7:23 PM WAREHOUSE LOGISTICS MANAGER documented as of this encounter Care Teams Orthodontist Vice President Relationship Specialty Start Date End Date Radha Cowan MD [address] [phone] PCP - General Family Practice 10/24/20 documented as of this encounter
--- OUTSIDE RECORDS SUMMARY | 2025-06-23 20:58 | XMS_ITS | Encounter Summary ---
Author Organization [employer] Address [address] [place] [address] Care Team Providers Care Mixed Crop And Livestock Farmer Name Role Phone Unavailable Primary Care Provider [...] on file Legal Sex Female 1:48 PM BUILDING CLEANING SUPERVISOR Gender Identity Not on file Sexual Orientation Not on file documented as of this encounter Plan of Treatment Not on file documented as of this encounter Visit Diagnoses Not on filedocumented in this encounter Additional Health Concerns Assessment Noted Time PHQ-9 Depression Total Score: 2 05/06/20 21 9:14 AM CDT documented as of this encounter
--- OUTSIDE RECORDS SUMMARY | 2025-06-23 20:58 | XMS_ITS | Encounter Summary ---
Author Organization [facility] Address [address] [place] [address] Care Team Providers Care Senior Android Software Engineer Name Role Phone Radha Cowan MD Primary Care Provider [phone] Encounter Details Date Type Department Care Team (Latest Contact Info) Description 04/17/1999 Outpatient Historical [facility] Augusto Nicole Jr., MD [address] [place] [phone] Chest pain, unspecified (Primary Dx); Edema; Major depressive disorder, single episode, unspecified Social History Tobacco Use Types Packs/Day Years Used Date Smoking Tobacco: Never Assessed Comments Unknown Sex and Gender Information Value Date Recorded Sex Assigned at Not on file Legal Sex Female 3:33 AM PASTING MACHINE OFFBEARER Gender Identity Not on file Sexual Orientation [...] R/O COVID-19 07/25/2020 07/25/2020 07/27/2020 5:01 AM PASTING MACHINE OFFBEARER R/O COVID-19 09/30/2020 09/30/2020 09/30/2020 7:23 PM PASTING MACHINE OFFBEARER documented as of this encounter Care Teams Senior Android Software Engineer Relationship Specialty Start Date End Date Radha Cowan MD [address] [phone] PCP - General Family Practice 10/24/20 documented as of this encounter
--- OUTSIDE RECORDS SUMMARY | 2025-06-23 20:58 | XMS_ITS | Encounter Summary ---
Author Organization [facility] Address [address] [place] [address] Care Team Providers Care Manager Food Safety Name Role Phone Radha Cowan MD Primary Care Provider Encounter Details Date Type Department Care Team (Latest Contact Info) Description 11/28/1998 Outpatient Historical [facility] Augusto Nicole Jr., MD [address] [place] [phone] Unspecified essential hypertension (Primary Dx); Unspecified thrombosed hemorrhoids; Obesity, unspecified Social History Tobacco Use Types Packs/Day Years Used Date Smoking Tobacco: Never Assessed Comments Unknown Sex and Gender Information Value Date Recorded Sex Assigned at Not on file Legal Sex Female 3:33 AM BUSINESS BANKING SALES ASSISTANT Gender Identity Not on file Sexual [...] COVID-19 07/25/2020 07/25/2020 07/27/2020 5:01 AM BUSINESS BANKING SALES ASSISTANT R/O COVID-19 09/30/2020 09/30/2020 09/30/2020 7:23 PM BUSINESS BANKING SALES ASSISTANT documented as of this encounter Care Teams Manager Food Safety Relationship Specialty Start Date End Date Radha Cowan MD [address] [phone] PCP - General Family Practice 10/24/20 documented as of this encounter
--- OUTSIDE RECORDS SUMMARY | 2025-06-23 20:58 | XMS_ITS | Encounter Summary ---
Author Organization [facility] Address [address] [place] [address] Care Team Providers Care Associate Professor Of Pathology Name Role Phone Radha Cowan MD Primary Care Provider [phone] Encounter Details Date Type Department Care Team (Latest Contact Info) Description 10/15/2017 Ancillary Orders [facility] Admitting [address] [place] [address] Raad Bhatt, SQUAD LEADER [address] [place] [address] Osteoarthritis of both knees, unspecified [...] on file Legal Sex Female 3:33 AM CUTTER AND EDGE TRIMMER Gender Identity Not on file Sexual Orientation Not on file Occupation Industry Job Start Date Job End Date Not on file Not on file Not on file Not on file documented as of this encounter Plan of Treatment Not on file documented as of this encounter Results * XR KNEE 3 VW BILAT (10/15/2017 11:56 AM CUTTER AND EDGE TRIMMER) Anatomical Region Laterality Modality Lower Extremity Computed Radiogr aphy 10/15/2017 11:5 6 AM CUTTER AND EDGE TRIMMER Impressions 10/15/2017 9:02 PM CUTTER AND EDGE TRIMMER IMPRESSION: Mild degenerative changes. [id number] Narrative 10/15/2017 9:02 PM CUTTER AND EDGE TRIMMER Exam: XR KNEE 3 VW BILAT Date/Time [...] tissues appear appropriate. IMPRESSION: Mild degenerative changes. [id number] Raad Bhatt SQUAD LEADER DIAGNOSTIC IMAGING ORDERABL ES Final Result documented in this encounter Visit Diagnoses Diagnosis Osteoarthritis of both knees, unspecified osteoarthritis type Osteoarthritis of both knees, unspecified osteoarthritis type documented in this encounter Additional Health Concerns Infection Onset Date Last Indicated Resolved Time R/O COVID-19 05/16/2020 05/16/2020 05/18/2020 12:3 1 AM CDT R/O COVID-19 07/25/2020 07/25/2020 07/27/2020 5:01 AM CUTTER AND EDGE TRIMMER R/O COVID-19 09/30/2020 09/30/2020 09/30/2020 7:23 PM CUTTER AND EDGE TRIMMER documented as of this encounter Care Teams Associate Professor Of Pathology Relationship Specialty Start Date End Date Radha Cowan MD [address] [phone] PCP - General Family Practice 10/24/20 documented as of this encounter
--- OUTSIDE RECORDS SUMMARY | 2025-06-23 20:58 | XMS_ITS | Encounter Summary ---
Author Organization [facility] Address [address] [place] [address] Care Team Providers Care Embedded Systems Software Engineer Name Role Phone Radha Cowan MD Primary Care Provider [phone] Encounter Details Date Type Department Care Team (Latest Contact Info) Description 12/16/2000 Outpatient Historical [facility] Augusto Nicole Jr., MD [address] [place] [phone] Headache(784.0) (Primary Dx); Mitral valve disorder Social History Tobacco Use Types Packs/Day Years Used Date Smoking Tobacco: Never Assessed Comments Unknown Sex and Gender Information Value Date Recorded Sex Assigned at Not on file Legal Sex Female 3:33 AM STATEMENT CLERK Gender Identity Not on file Sexual [...] R/O COVID-19 07/25/2020 07/25/2020 07/27/2020 5:01 AM STATEMENT CLERK R/O COVID-19 09/30/2020 09/30/2020 09/30/2020 7:23 PM STATEMENT CLERK documented as of this encounter Care Teams Embedded Systems Software Engineer Relationship Specialty Start Date End Date Radha Cowan MD [address] [phone] PCP - General Family Practice 10/24/20 documented as of this encounter
--- OUTSIDE RECORDS SUMMARY | 2025-06-23 20:58 | XMS_ITS | Encounter Summary ---
Author Organization [facility] Address [address] [place] [address] Care Team Providers Care Sterile Processing Technician Name Role Phone Radha Cowan MD Primary Care Provider Encounter Details Date Type Department Care Team (Latest Contact Info) Description 01/19/2001 Outpatient Historical [facility] Augusto Nicole Jr., MD [address] [place] [phone] Chest pain, unspecified (Primary Dx); Generalized anxiety disorder Social History Tobacco Use Types Packs/Day Years Used Date Smoking Tobacco: Never Assessed Comments Unknown Sex and Gender Information Value Date Recorded Sex Assigned at Not on file Legal Sex Female 3:33 AM ARTIFICIAL BREEDING TECHNICIAN Gender Identity Not on file Sexual [...] R/O COVID-19 07/25/2020 07/25/2020 07/27/2020 5:01 AM ARTIFICIAL BREEDING TECHNICIAN R/O COVID-19 09/30/2020 09/30/2020 09/30/2020 7:23 PM ARTIFICIAL BREEDING TECHNICIAN documented as of this encounter Care Teams Sterile Processing Technician Relationship Specialty Start Date End Date Radha Cowan MD [address] [facility] [address] [place] [address] PCP - General Family Practice 10/24/20 documented as of this encounter
--- OUTSIDE RECORDS SUMMARY | 2025-06-23 20:58 | XMS_ITS | Encounter Summary ---
Author Organization [facility] Address [address] Charlesn: [place] [address] Care Team Providers Care Botanical Technical Officer Name Role Phone Radha Cowan MD Primary Care Provider +1- [phone] Encounter Details Date Type Department Care Team (Late st Contact Info) Description 02/18/2001 Outpatient Historical Augusto Nicole Jr., MD [address] [place] [phone] Social History Tobacco Use Types Packs/Day Years Used Date Smoking Tobacco: Never Assessed Comments Unknown Sex and Gender Information Value Date Recorded Sex Assigned at Not on file Legal Sex Female 3:33 AM NON GARMENT SEWING MACHINE OPERATOR Gender Identity Not on file Sexual Orientation Not on file documented as of this encounter Plan of Treatment Not on file documented as of this encounter Visit Diagnoses Not on filedocumented in this encounter Additional Health Concerns Infection Onset Date Last Indicated Resolved Time R/O COVID-19 05/16/2020 05/16/2020 05/18/2020 12:3 1 AM CDT R/O COVID-19 07/25/2020 07/25/2020 07/27/2020 5:01 AM NON GARMENT SEWING MACHINE OPERATOR R/O COVID-19 09/30/2020 09/30/2020 09/30/2020 7:23 PM NON GARMENT SEWING MACHINE OPERATOR documented as of this encounter Care Teams Botanical Technical Officer Relationship Specialty Start Date End Date Radha Cowan MD [address] [place] [address] PCP - General Family Practice 10/24/20 documented as of this encounter
--- OUTSIDE RECORDS SUMMARY | 2025-06-23 20:58 | XMS_ITS | Encounter Summary ---
Author Organization [facility] Address [address] [place] [address] Care Team Providers Care Evs Attendant Name Role Phone Radha Cowan MD Primary Care Provider Encounter Details Date Type Department Care Team (Latest Contact Info) Description 07/10/1998 Outpatient Historical [facility] Augusto Nicole Jr., MD [facility] [place] [address] Headache(784.0) (Primary Dx); Depressive disorder, not elsewhere classified Social History Tobacco Use Types Packs/Day Years Used Date Smoking Tobacco: Never Assessed Comments Unknown Sex and Gender Information Value Date Recorded Sex Assigned at Not on file Legal Sex Female 3:33 AM CRANKSHAFT BALANCER Gender Identity Not on file Sexual Orientation [...] R/O COVID-19 07/25/2020 07/25/2020 07/27/2020 5:01 AM CRANKSHAFT BALANCER R/O COVID-19 09/30/2020 09/30/2020 09/30/2020 7:23 PM CRANKSHAFT BALANCER documented as of this encounter Care Teams Evs Attendant Relationship Specialty Start Date End Date Radha Cowan MD [address] [phone] PCP - General Family Practice 10/24/20 documented as of this encounter
--- OUTSIDE RECORDS SUMMARY | 2025-06-23 20:58 | XMS_ITS | Encounter Summary ---
Author Organization [facility] Address [address] Charlesn: [place] [address] Care Team Providers Care Reject Opener And Filler Name Role Phone Radha Cowan MD Primary Care Provider [phone]- [phone] Encounter Details Date Type Department Care Team (Late st Contact Info) Description 12/16/2000 Outpatient Historical Augusto Nicole Jr., MD [address] [place] [phone] Social History Tobacco Use Types Packs/Day Years Used Date Smoking Tobacco: Never Assessed Comments Unknown Sex and Gender Information Value Date Recorded Sex Assigned at Not on file Legal Sex Female 3:33 AM MAIL HANDLER EQUIPMENT OPERATOR Gender Identity Not on file Sexual Orientation Not on file documented as of this encounter Plan of Treatment Not on file documented as of this encounter Visit Diagnoses Not on filedocumented in this encounter Additional Health Concerns Infection Onset Date Last Indicated Resolved Time R/O COVID-19 05/16/2020 05/16/2020 05/18/2020 12:3 1 AM CDT R/O COVID-19 07/25/2020 07/25/2020 07/27/2020 5:01 AM MAIL HANDLER EQUIPMENT OPERATOR R/O COVID-19 09/30/2020 09/30/2020 09/30/2020 7:23 PM MAIL HANDLER EQUIPMENT OPERATOR documented as of this encounter Care Teams Reject Opener And Filler Relationship Specialty Start Date End Date Radha Coawn MD [address] [place] [address] PCP - General Family Practice 10/24/20 documented as of this encounter
--- OUTSIDE RECORDS SUMMARY | 2025-06-23 20:58 | XMS_ITS | Clinical Summary ---
Author Organization [facility] Address [facility] [place] [address] Care Team Providers Care Dollyman Name Role Phone Radha Cowan MD Primary [...] 6 months. 1 Each 0 Active Insulin [place], Disposable, (Lite Touch Insulin Pen [place]) 31 gauge x 5/16 Needle 100 Each by [facility].(Non-Drug; Combo Route) route. Active metFORMIN (GLUCOPHAGE) 1,000 [...] deliveryIndicati ons:Respiratory failure with hypoxia, unspecified chronicity (CMS/HCC) Home Oxygen Concentrator yes at 3 L/M [...] complication associated with type 2 diabetes mellitus Take 1 Capsule (50 mg) by mouth [...] file Legal Sex Female 3:33 AM KITCHEN BATH DESIGNER Gender Identity Not on file Sexual [...] VACCINE (60+ or ) (1 - Risk 50-74 years 1-dose series) 02/20/2006 DIABETES ANNUAL RETINAL EXAM 02/23/2018 02/23/2017 DIABETES [...] OR WO CAD Routine 10/30/2020 1:26 PM KITCHEN BATH DESIGNER Screening mammogram, encounter for MICROALBUMIN/CREATI NINE RATIO, [...] 93 <100 mg/dL 01/08/2021 9:13 PM CDT [facility] Blood Venipuncture / Unknown 01/08/2021 11:00 AM CDT 01/08/2021 7:53 PM CDT Narrative [facility] - 01/08/2021 9:13 [...] ORDERABLES Final Re sult Performing Organization Address [facility]/ZIP Co de Phone Number [facility] CLIA# [id number] [address] [place] [address] * (ABNORMAL) HEMOGLOBIN A1C (01/08/2021 11:00 AM CDT) HEMOGLOBIN A1C 7.5(H) See Comment % 01/08/2021 8:17 PM CDT [facility] EST. AVG GLUCOSE, A1C 169 mg/dL 01/08/2021 8:17 PM CDT [facility] Blood Venipuncture / Unknown 01/08/2021 11:00 AM CDT 01/08/2021 7:53 PM CDT Narrative [facility] - 01/08/2021 8:17 PM CDT HGB A1C INTERPRETATION NORMAL: <5.7% PRE-DIABETES: 5.7 - 6.4% DIABETES: 6.5% OR GREATER Falsely low A1C measurements can occur when: 1. Anemia and/or hemolytic anemia is present. 2. Hemoglobin variants present. 3. Renal failure. 4. Transfusion of blood product in the last 120 days. We recommend ordering a fructosamine test([id number]) to more accurately assess glycemic status if any of the above conditions are present. Juancarlos DELGADO CHEMISTRY ORDERABLES Final Re sult Performing Organization Address [facility]/ZIP Co de Phone Number [facility] CLIA# [id number] [address] [place] [address] * MAMMO SCREEN BILAT W OR WO CAD (10/30/2020 1:26 PM KITCHEN BATH DESIGNER) Anatomical Region Laterality Modality Breast Bilateral Mammography 10/30/2020 1:29 PM KITCHEN BATH DESIGNER Impressions 11/03/2020 11:28 AM KITCHEN BATH DESIGNER : Focal asymmetry in the upper outer quadrant of the left breast for which additional imaging evaluation is recommended. BI-RADS ASSESSMENT: 0 - Incomplete Recommendation: Additional Imaging [id number] Narrative 11/03/2020 11:28 AM KITCHEN BATH DESIGNER EXAM: MAMMO SCREEN BILAT W OR WO [...] Reference Range mg/dL 12/19/2019 8:46 PM CDT [facility] CREATININE, URINE 66.3 29.0 - 226.0 mg/dL 12/19/2019 8:46 PM CDT [facility] Comment:Reference Range vari es with fluid intake and diet. MICROALBUMIN/C REAT RATIO, UR 18.1 <25.0 mg/g 12/19/2019 8:46 PM CDT [facility] Urine URINE SPECIMEN OBTAINED BY CLEAN CATCH PROCEDURE / Unknown Collection / Unknown 12/19/2019 9:05 AM CDT 12/19/2019 7:43 PM CDT Narrative [facility] - 12/19/2019 8:46 PM CDT Condition Microalbumin/Creat ratio Normal Males <17 Normal Females <25 Microalbuminuria Males 17-299 Microalbuminuria Females 25-299 Overt proteinuria >=300 us [place] HEAD SILVERMAN URINE ORDERABLES Final Result [facility]# [id number] [address] [place] [address] from Last 3 Months or Most Recently Relevant to Health Maintenance Insurance [employer]UE [employer]UE [facility] Member Subscriber Plan / Payer (Ef fective 2019-Present) Name:Marli Eli Relation to Subscriber:Self Name:Marli Eli Payer ID:Not on file Group ID:[id number] Type:Medicare Managed Care Address: [address] [id number] [place] Advance Directives For more information, please contact: [phone] Documents on File Type Date Recorded Patient Guard Lieutenant Expl anation Advance Directive POA 01/24/2012 7:28 AM Advance Directive Living Will 01/24/2012 Advance Directive POA 01/22/2012 10:32 AM Health Care Directive * Full Code (Latest Code Status on File) Date Activated Date Inactivated Comments 07/18/2015 11:12 PM 07/24/2015 2:39 PM Care Teams Dollyman Relationship Specialty Start Date End Date Radha Cowan MD [address] [address] PCP - General Family Practice 10/24/20
--- OUTSIDE RECORDS SUMMARY | 2025-06-23 20:58 | XMS_ITS | Encounter Summary ---
Author Organization [facility] Address [address] [place] [address] Care Team Providers Care Elementary Secretary Name Role Phone Radha Cowan MD Primary Care Provider Encounter Details Date Type Department Care Team (Latest Contact Info) Description 06/13/1999 Outpatient Historical [facility] Betito Fields NO ADDRESS ON FILE Chest pain, unspecified (Primary Dx) Social History Tobacco Use Types Packs/Day Years Used Date Smoking Tobacco: Never Assessed Comments Unknown Sex and Gender Information Value Date Recorded Sex Assigned at Not on file Legal Sex Female 3:33 AM COMMUNITY BOARD MEMBER Gender Identity Not on file Sexual Orientation [...] COVID-19 07/25/2020 07/25/2020 07/27/2020 5:01 AM COMMUNITY BOARD MEMBER R/O COVID-19 09/30/2020 09/30/2020 09/30/2020 7:23 PM COMMUNITY BOARD MEMBER documented as of this encounter Care Teams Elementary Secretary Relationship Specialty Start Date End Date Radha Cowan MD [address] [place] [address] PCP - General Family Practice 10/24/20 documented as of this encounter
--- OUTSIDE RECORDS SUMMARY | 2025-06-23 20:58 | XMS_ITS | Clinical Summary ---
Author Organization [facility] Address [address] [place] [address] Care Team Providers Care Website Admin Name Role Phone Radha Xiong MD Primary Care Provider +1 -[phone] Allergies Active Allergy Reactions Criticality Noted Date [...] 1 tablet (25 mcg total) by mouth clearing hand before breakfast 01/05/20 24 Active losartan (COZAAR) [...] vaccine 65+ Completed 023, 05/31/2018, 09/05/2012 Insurance [place] [employer] HMO PPO Advance Directives For more information, please contact: [phone] * Full Code (Latest Code Status on File) Date Activated Date Inactivated Comments 03/22/2024 10:33 PM 03/29/2024 5:09 PM Care Teams Website Admin Relationship Specialty Start Date End Date Radha Xiong MD [address] [place] [address] PCP - General Family Medicine 03/22/24
--- OUTSIDE RECORDS SUMMARY | 2025-06-23 20:58 | XMS_ITS | Encounter Summary ---
Author Organization [facility] Address [address] [place] [address] Care Team Providers Care Wood Milling Machine Tender Name Role Phone Radha Cowan MD Primary Care Provider Encounter Details Date Type Department Care Team (Latest Contact Info) Description 06/21/2018 Ancillary Orders [facility] Admitting [address] [place] [address] Raad Bhatt, SUPERVISOR TOWER [address] [place] [phone] Osteoarthritis of both knees, unspecified osteoarthritis type Social History Tobacco Use Types Packs/Day Years Used Date Smoking Tobacco: Every Day Cigarettes 1 20 Smokeless Tobacco: Never Alcohol Use Standard Drinks/Week Comments Yes 0 (1 standard drink = 0.6 oz pur e alcohol) occasional Comments No Sex and Gender Information Value Date Recorded Sex Assigned at Not on file Legal Sex Female 3:33 AM BANK SALES AND SERVICE MANAGER Gender Identity Not on file Sexual [...] medial tibial femoral compartments bilaterally. Raad Bhatt SUPERVISOR TOWER DIAGNOSTIC IMAGING ORDERABL ES Final Result documented in this encounter Visit Diagnoses Diagnosis Osteoarthritis of both knees, unspecified osteoarthritis type Osteoarthritis of both knees, unspecified osteoarthritis type documented in this encounter Additional Health Concerns Infection Onset Date Last Indicated Resolved Time R/O COVID-19 05/16/2020 05/16/2020 05/18/2020 12:3 1 AM CDT R/O COVID-19 07/25/2020 07/25/2020 07/27/2020 5:01 AM BANK SALES AND SERVICE MANAGER R/O COVID-19 09/30/2020 09/30/2020 09/30/2020 7:23 PM BANK SALES AND SERVICE MANAGER documented as of this encounter Care Teams Wood Milling Machine Tender Relationship Specialty Start Date End Date Radha Cowan MD [address] [address] PCP - General Family Practice 10/24/20 documented as of this encounter
--- OUTSIDE RECORDS SUMMARY | 2025-06-23 20:58 | XMS_ITS | Encounter Summary ---
Author Organization [facility] Address [address] [place] [address] Care Team Providers Care Research Aide Name Role Phone Radha Cowan MD Primary Care Provider [phone] Encounter Details Date Type Department Care Team (Latest Contact Info) Description 12/23/1998 Outpatient Historical [facility] Augusto Nicole Jr., MD [address] [place] [phone] Dysthymic disorder (Primary Dx); Abdominal pain, unspecified site Social History Tobacco Use Types Packs/Day Years Used Date Smoking Tobacco: Never Assessed Comments Unknown Sex and Gender Information Value Date Recorded Sex Assigned at Not on file Legal Sex Female 3:33 AM CPAS Gender Identity Not on file Sexual Orientation [...] R/O COVID-19 07/25/2020 07/25/2020 07/27/2020 5:01 AM CPAS R/O COVID-19 09/30/2020 09/30/2020 09/30/2020 7:23 PM CPAS documented as of this encounter Care Teams Research Aide Relationship Specialty Start Date End Date Radha Cowan MD [address] [address] PCP - General Family Practice 10/24/20 documented as of this encounter
--- OUTSIDE RECORDS SUMMARY | 2025-06-23 20:58 | XMS_ITS | Encounter Summary ---
Author Organization [facility] Address [address] [place] [address] Care Team Providers Care Medication Aide Name Role Phone Radha Cowan MD Primary Care Provider [phone]- [phone] Encounter Details Date Type Department Care Team (Latest Contact Info) Description 06/23/1999 Outpatient Historical [facility] Betito Fields NO ADDRESS ON FILE Other malaise and fatigue (Primary Dx); Elevated blood pressure reading without diagnosis of hypertension; Other diseases of trachea and bronchus, not elsewhere classified Social History Tobacco Use Types Packs/Day Years Used Date Smoking Tobacco: Never Assessed Comments Unknown Sex and Gender Information Value Date Recorded Sex Assigned at Not on file Legal Sex Female 3:33 AM RN PROCEDURE Gender Identity Not on file Sexual Orientation [...] R/O COVID-19 07/25/2020 07/25/2020 07/27/2020 5:01 AM RN PROCEDURE R/O COVID-19 09/30/2020 09/30/2020 09/30/2020 7:23 PM RN PROCEDURE documented as of this encounter Care Teams Medication Aide Relationship Specialty Start Date End Date Radha Cowan MD [address] [address] PCP - General Family Practice 10/24/20 documented as of this encounter
--- OUTSIDE RECORDS SUMMARY | 2025-06-23 20:58 | XMS_ITS | Encounter Summary ---
Author Organization [facility] Address [address] Charlesn: [place] [address] Care Team Providers Care Workforce Development Vice President Name Role Phone Radha Cowan MD Primary Care Provider +1- [phone] Encounter Details Date Type Department Care Team (Late st Contact Info) Description 11/21/1999 Outpatient Historical Augusto Nicole Jr., MD [address] [place] [phone] Social History Tobacco Use Types Packs/Day Years Used Date Smoking Tobacco: Never Assessed Comments Unknown Sex and Gender Information Value Date Recorded Sex Assigned at Not on file Legal Sex Female 3:33 AM DIRECTOR OF ANALYTICS Gender Identity Not on file Sexual Orientation Not on file documented as of this encounter Plan of Treatment Not on file documented as of this encounter Visit Diagnoses Not on filedocumented in this encounter Additional Health Concerns Infection Onset Date Last Indicated Resolved Time R/O COVID-19 05/16/2020 05/16/2020 05/18/2020 12:3 1 AM CDT R/O COVID-19 07/25/2020 07/25/2020 07/27/2020 5:01 AM DIRECTOR OF ANALYTICS R/O COVID-19 09/30/2020 09/30/2020 09/30/2020 7:23 PM DIRECTOR OF ANALYTICS documented as of this encounter Care Teams Workforce Development Vice President Relationship Specialty Start Date End Date Radha Cowan MD [address] [place] [address] PCP - General Family Practice 10/24/20 documented as of this encounter
--- OUTSIDE RECORDS SUMMARY | 2025-06-23 20:58 | XMS_ITS | Encounter Summary ---
Author Organization [facility] Address [address] Charlesn: [place] [address] Care Team Providers Care Research Administrator Name Role Phone Radha Cowan MD Primary Care Provider +1- [phone] Encounter Details Date Type Department Care Team (Late st Contact Info) Description 01/12/2001 Outpatient Historical Augusto Nicole Jr., MD [address] [place] [phone] Social History Tobacco Use Types Packs/Day Years Used Date Smoking Tobacco: Never Assessed Comments Unknown Sex and Gender Information Value Date Recorded Sex Assigned at Not on file Legal Sex Female 3:33 AM SHOT CORE DRILL OPERATOR Gender Identity Not on file Sexual Orientation Not on file documented as of this encounter Plan of Treatment Not on file documented as of this encounter Visit Diagnoses Not on filedocumented in this encounter Additional Health Concerns Infection Onset Date Last Indicated Resolved Time R/O COVID-19 05/16/2020 05/16/2020 05/18/2020 12:3 1 AM CDT R/O COVID-19 07/25/2020 07/25/2020 07/27/2020 5:01 AM SHOT CORE DRILL OPERATOR R/O COVID-19 09/30/2020 09/30/2020 09/30/2020 7:23 PM SHOT CORE DRILL OPERATOR documented as of this encounter Care Teams Research Administrator Relationship Specialty Start Date End Date Radha Cowan MD [address] [facility] [address] [place] [address] PCP - General Family Practice 10/24/20 documented as of this encounter
--- OUTSIDE RECORDS SUMMARY | 2025-06-23 20:58 | XMS_ITS | Encounter Summary ---
Author Organization [facility] Address [address] [place] [address] Care Team Providers Care Tile Roofer Name Role Phone Radha Cowan MD Primary Care Provider Encounter Details Date Type Department Care Team (Latest Contact Info) Description 03/22/2000 Outpatient Historical [facility] Augusto Nicole Jr., MD [address] [place] [phone] Other follow-up examination(V67.59) (Primary Dx); Unspecified hemorrhoids without mention of complication Social History Tobacco Use Types Packs/Day Years Used Date Smoking Tobacco: Never Assessed Comments Unknown Sex and Gender Information Value Date Recorded Sex Assigned at Not on file Legal Sex Female 3:33 AM MACHINING ENGINEER Gender Identity Not on file Sexual [...] R/O COVID-19 07/25/2020 07/25/2020 07/27/2020 5:01 AM MACHINING ENGINEER R/O COVID-19 09/30/2020 09/30/2020 09/30/2020 7:23 PM MACHINING ENGINEER documented as of this encounter Care Teams Tile Roofer Relationship Specialty Start Date End Date Radha Cowan MD [address] [address] PCP - General Family Practice 10/24/20 documented as of this encounter
--- OUTSIDE RECORDS SUMMARY | 2025-06-23 20:58 | XMS_ITS | Encounter Summary ---
Author Organization [facility] Address [address] [place] [address] Care Team Providers Care Shop Tech Name Role Phone Radha Cowan MD Primary Care Provider Encounter Details Date Type Department Care Team (Latest Contact Info) Description 03/15/2000 Outpatient Historical [facility] Corey Burkett, Augusto Tang MD [address] [place] [phone] Unspecified urinary incontinence (Primary Dx); Screening for malignant neoplasm of the cervix; Unspecified hemorrhoids without mention of complication; Screening for malignant neoplasm of the rectum Social History Tobacco Use Types Packs/Day Years Used Date Smoking Tobacco: Never Assessed Comments Unknown Sex and Gender Information Value Date Recorded Sex Assigned at Not on file Legal Sex Female 3:33 AM SENIOR TABLEAU DEVELOPER Gender Identity Not on file Sexual [...] COVID-19 07/25/2020 07/25/2020 07/27/2020 5:01 AM SENIOR TABLEAU DEVELOPER R/O COVID-19 09/30/2020 09/30/2020 09/30/2020 7:23 PM SENIOR TABLEAU DEVELOPER documented as of this encounter Care Teams Shop Tech Relationship Specialty Start Date End Date Radha Cowan MD [address] [address] PCP - General Family Practice 10/24/20 documented as of this encounter
--- OUTSIDE RECORDS SUMMARY | 2025-06-23 20:58 | XMS_ITS | Encounter Summary ---
Author Organization [facility] Address [address] [place] [address] Care Team Providers Care Photoengraving Proofer Name Role Phone Radha Cowan MD Primary Care Provider Encounter Details Date Type Department Care Team (Latest Contact Info) Description 02/18/2001 Outpatient Historical [facility] Augusto Nicole Jr., MD [address] [place] [phone] Myalgia and myositis, unspecified (Primary Dx); Depressive disorder, not elsewhere classified Social History Tobacco Use Types Packs/Day Years Used Date Smoking Tobacco: Never Assessed Comments Unknown Sex and Gender Information Value Date Recorded Sex Assigned at Not on file Legal Sex Female 3:33 AM HYDROGEN POWER PLANT MANAGER Gender Identity Not on file Sexual [...] R/O COVID-19 07/25/2020 07/25/2020 07/27/2020 5:01 AM HYDROGEN POWER PLANT MANAGER R/O COVID-19 09/30/2020 09/30/2020 09/30/2020 7:23 PM HYDROGEN POWER PLANT MANAGER documented as of this encounter Care Teams Photoengraving Proofer Relationship Specialty Start Date End Date Radha Cowan MD [address] [address] PCP - General Family Practice 10/24/20 documented as of this encounter
--- OUTSIDE RECORDS SUMMARY | 2025-06-23 20:58 | XMS_ITS | Encounter Summary ---
Author Organization [facility] Address [address] Charlesn: [place] [address] Care Team Providers Care Facility Manager Name Role Phone Radha Cowan MD Primary Care Provider [phone]- [phone] Encounter Details Date Type Department Care Team (Late st Contact Info) Description 12/20/2000 Outpatient Historical Augusto Nicole Jr., MD [address] [place] [phone] Social History Tobacco Use Types Packs/Day Years Used Date Smoking Tobacco: Never Assessed Comments Unknown Sex and Gender Information Value Date Recorded Sex Assigned at Not on file Legal Sex Female 3:33 AM TALLOW REFINER Gender Identity Not on file Sexual Orientation Not on file documented as of this encounter Plan of Treatment Not on file documented as of this encounter Visit Diagnoses Not on filedocumented in this encounter Additional Health Concerns Infection Onset Date Last Indicated Resolved Time R/O COVID-19 05/16/2020 05/16/2020 05/18/2020 12:3 1 AM CDT R/O COVID-19 07/25/2020 07/25/2020 07/27/2020 5:01 AM TALLOW REFINER R/O COVID-19 09/30/2020 09/30/2020 09/30/2020 7:23 PM TALLOW REFINER documented as of this encounter Care Teams Facility Manager Relationship Specialty Start Date End Date Radha Cowan MD [address] [place] [phone] PCP - General Family Practice 10/24/20 documented as of this encounter
--- OUTSIDE RECORDS SUMMARY | 2025-06-23 20:59 | XMS_ITS | Encounter Summary ---
Author Organization [facility] Address [address] [place] [address] Care Team Providers Care Seo Associate Name Role Phone Radha Cowan MD Primary Care Provider Encounter Details Date Type Department Care Team (Latest Contact Info) Description 12/14/2002 Outpatient Historical [facility] Augusto Nicole Jr., MD [address] [place] [phone] DIABETES UNCOMPL ADULT-TYPE II ([facility]) (Primary Dx); ACUTE SINUSITIS NOS; PULMONARY EOSINOPHILIA Social History Tobacco Use Types Packs/Day Years Used Date Smoking Tobacco: Never Assessed Comments Unknown Sex and Gender Information Value Date Recorded Sex Assigned at Not on file Legal Sex Female 3:33 AM MECHANICAL DOOR REPAIRER Gender Identity Not on file Sexual [...] COVID-19 07/25/2020 07/25/2020 07/27/2020 5:01 AM MECHANICAL DOOR REPAIRER R/O COVID-19 09/30/2020 09/30/2020 09/30/2020 7:23 PM MECHANICAL DOOR REPAIRER documented as of this encounter Care Teams Seo Associate Relationship Specialty Start Date End Date Radha Cowan MD [address] [address] PCP - General Family Practice 10/24/20 documented as of this encounter
--- OUTSIDE RECORDS SUMMARY | 2025-06-23 20:59 | XMS_ITS | Encounter Summary ---
Author Organization [facility] Address [address] [place] [address] Care Team Providers Care Vehicle Dynamics Engineer Name Role Phone Radha Cowan MD Primary Care Provider [phone] Encounter Details Date Type Department Care Team (Latest Contact Info) Description 06/10/2001 Outpatient Historical [facility] Augusto Nicole Jr., MD [address] [place] [phone] Chronic airway obstruction, not elsewhere classified (CMS/HCC) (Primary Dx); Pure hypercholesterolem Social History Tobacco Use Types Packs/Day Years Used Date Smoking Tobacco: Never Assessed Comments Unknown Sex and Gender Information Value Date Recorded Sex Assigned at Not on file Legal Sex Female 3:33 AM NAIL TECH Gender Identity Not on file Sexual [...] R/O COVID-19 07/25/2020 07/25/2020 07/27/2020 5:01 AM NAIL TECH R/O COVID-19 09/30/2020 09/30/2020 09/30/2020 7:23 PM NAIL TECH documented as of this encounter Care Teams Vehicle Dynamics Engineer Relationship Specialty Start Date End Date Radha Cowan MD [address] [address] PCP - General Family Practice 10/24/20 documented as of this encounter
--- OUTSIDE RECORDS SUMMARY | 2025-06-23 20:59 | XMS_ITS | Encounter Summary ---
Author Organization [facility] Address [address] [place] [address] Care Team Providers Care Interstate Planner Name Role Phone Radha Cowan MD Primary Care Provider [phone] Encounter Details Date Type Department Care Team (Latest Contact Info) Description 04/19/2003 Outpatient Historical [facility] Augusto Nicole Jr., MD [address] [place] [phone] HYPERTENSION NOS (Primary Dx) Social History Tobacco Use Types Packs/Day Years Used Date Smoking Tobacco: Never Assessed Comments Unknown Sex and Gender Information Value Date Recorded Sex Assigned at Not on file Legal Sex Female 3:33 AM DYE ROOM HELPER Gender Identity Not on file Sexual Orientation Not on file documented as of this encounter Plan of Treatment Not on file documented as of this encounter Visit Diagnoses Diagnosis Unspecified essential hypertension- Primary documented in this encounter Additional Health Concerns Infection Onset Date Last Indicated Resolved Time R/O COVID-19 05/16/2020 05/16/2020 05/18/2020 12:3 1 AM CDT R/O COVID-19 07/25/2020 07/25/2020 07/27/2020 5:01 AM DYE ROOM HELPER R/O COVID-19 09/30/2020 09/30/2020 09/30/2020 7:23 PM DYE ROOM HELPER documented as of this encounter Care Teams Interstate Planner Relationship Specialty Start Date End Date Radha Cowan MD [address] [facility] [address] [place] [phone] PCP - General Family Practice 10/24/20 documented as of this encounter
--- OUTSIDE RECORDS SUMMARY | 2025-06-23 20:59 | XMS_ITS | Encounter Summary ---
Author Organization [facility] Address [address] [place] [address] Care Team Providers Care Transition Rn Name Role Phone Radha Cowan MD Primary Care Provider [phone]- [phone] Encounter Details Date Type Department Care Team (Latest Contact Info) Description 11/06/2020 Ancillary Orders [facility] [address] [facility] [address] [place] [address] Juancarlos Sapp PA NO ADDRESS [...] on file Legal Sex Female 3:33 AM ROASTER OPERATOR Gender Identity Not on file Sexual Orientation Not on file Occupation Industry Job Start Date Job End Date Not on file Not on file Not on file Not on file COVID-19 Exposure Response Date Recorded In the last month, have you been in contact with someone who was confirmed or suspected to have Coronavirus / COVID-19? No / Unsure 11/04/2020 8:57 AM ROASTER OPERATOR documented as of this encounter Plan of Treatment Not on file documented as of this encounter Visit Diagnoses Diagnosis Inconclusive mammography Inconclusive mammogram documented in this encounter Care Teams Transition Rn Relationship Specialty Start Date End Date Radha Cowan MD [address] [place] [address] PCP - General Family Practice 10/24/20 documented as of this encounter
--- OUTSIDE RECORDS SUMMARY | 2025-06-23 20:59 | XMS_ITS | Encounter Summary ---
Author Organization [facility] Address [address] [place] [address] Care Team Providers Care Barrel Roller Operator Name Role Phone Radha Cowan MD Primary Care Provider Encounter Details Date Type Department Care Team (Latest Contact Info) Description 09/01/2001 Outpatient Historical [facility] Augusto Nicole Jr., MD [address] [place] [phone] ABSENCE OF MENSTRUATION (Primary Dx); HYPERLIPIDEMIA NEC/NOS; ALLERGIC RHINITIS NOS Social History Tobacco Use Types Packs/Day Years Used Date Smoking Tobacco: Never Assessed Comments Unknown Sex and Gender Information Value Date Recorded Sex Assigned at Not on file Legal Sex Female 3:33 AM AVIATION ENGINEER Gender Identity Not on file Sexual [...] COVID-19 07/25/2020 07/25/2020 07/27/2020 5:01 AM AVIATION ENGINEER R/O COVID-19 09/30/2020 09/30/2020 09/30/2020 7:23 PM AVIATION ENGINEER documented as of this encounter Care Teams Barrel Roller Operator Relationship Specialty Start Date End Date Radha Cowan MD [address] [phone] PCP - General Family Practice 10/24/20 documented as of this encounter
--- OUTSIDE RECORDS SUMMARY | 2025-06-23 20:59 | XMS_ITS | Encounter Summary ---
Author Organization [facility] Address [address] [place] [address] Care Team Providers Care Paver Name Role Phone Radha Cowan MD Primary Care Provider Encounter Details Date Type Department Care Team (Latest Contact Info) Description 10/13/2001 Outpatient Historical [facility] Augusto Nicole Jr., MD [address] [place] [phone] HYPERLIPIDEMIA NEC/NOS (Primary Dx); OBESITY NOS; DEPRESSIVE DISORDER NEC Social History Tobacco Use Types Packs/Day Years Used Date Smoking Tobacco: Never Assessed Comments Unknown Sex and Gender Information Value Date Recorded Sex Assigned at Not on file Legal Sex Female 3:33 AM MATERIAL CARRIER Gender Identity Not on file Sexual Orientation [...] R/O COVID-19 07/25/2020 07/25/2020 07/27/2020 5:01 AM MATERIAL CARRIER R/O COVID-19 09/30/2020 09/30/2020 09/30/2020 7:23 PM MATERIAL CARRIER documented as of this encounter Care Teams Paver Relationship Specialty Start Date End Date Radha Cowan MD [address] [phone] PCP - General Family Practice 10/24/20 documented as of this encounter
--- OUTSIDE RECORDS SUMMARY | 2025-06-23 20:59 | XMS_ITS | Encounter Summary ---
Author Organization [facility] Address [address] [place] [address] Care Team Providers Care Field Kiln Burner Name Role Phone Radha Cowan MD Primary Care Provider Encounter Details Date Type Department Care Team (Latest Contact Info) Description 04/10/2002 Outpatient Historical [facility] ToroHema MD [address] [address] ESOPHAGEAL REFLUX (Primary Dx); ABDOMINAL PAIN EPIGASTRIC Social History Tobacco Use Types Packs/Day Years Used Date Smoking Tobacco: Never Assessed Comments Unknown Sex and Gender Information Value Date Recorded Sex Assigned at Not on file Legal Sex Female 3:33 AM REPORTING CONSULTANT Gender Identity Not on file Sexual [...] R/O COVID-19 07/25/2020 07/25/2020 07/27/2020 5:01 AM REPORTING CONSULTANT R/O COVID-19 09/30/2020 09/30/2020 09/30/2020 7:23 PM REPORTING CONSULTANT documented as of this encounter Care Teams Field Kiln Burner Relationship Specialty Start Date End Date Radha Cowan MD [address] [address] PCP - General Family Practice 10/24/20 documented as of this encounter
--- OUTSIDE RECORDS SUMMARY | 2025-06-23 20:59 | XMS_ITS | Encounter Summary ---
Author Organization [facility] Address [address] [place] [address] Care Team Providers Care Gre Tutor Name Role Phone Radha Cowan MD Primary Care Provider [phone] Encounter Details Date Type Department Care Team (Late st Contact Info) Description 02/19/2003 Outpatient Historical [facility] Augusto Nicole Jr., MD [address] [place] [phone] DIABETES UNCOMPL ADULT-TYPE II (CMS/HCC) (Primary Dx) Social History Tobacco Use Types Packs/Day Years Used Date Smoking Tobacco: Never Assessed Comments Unknown Sex and Gender Information Value Date Recorded Sex Assigned at Not on file Legal Sex Female 3:33 AM SHANK CUTTER Gender Identity Not on file Sexual [...] R/O COVID-19 07/25/2020 07/25/2020 07/27/2020 5:01 AM SHANK CUTTER R/O COVID-19 09/30/2020 09/30/2020 09/30/2020 7:23 PM SHANK CUTTER documented as of this encounter Care Teams Gre Tutor Relationship Specialty Start Date End Date Radha Cowan MD [address] [phone] PCP - General Family Practice 10/24/20 documented as of this encounter
--- OUTSIDE RECORDS SUMMARY | 2025-06-23 20:59 | XMS_ITS | Encounter Summary ---
Author Organization [facility] Address [address] Charlesn: [place] [address] Care Team Providers Care Game Technician Name Role Phone Radha Cowan MD Primary Care Provider +1- [phone] Encounter Details Date Type Department Care Team (Late st Contact Info) Description 12/19/2001 Outpatient Historical Augusto Nicole Jr., MD [address] [place] [phone] Social History Tobacco Use Types Packs/Day Years Used Date Smoking Tobacco: Never Assessed Comments Unknown Sex and Gender Information Value Date Recorded Sex Assigned at Not on file Legal Sex Female 3:33 AM COMMERCIAL LOAN COLLECTION OFFICER Gender Identity Not on file Sexual Orientation Not on file documented as of this encounter Plan of Treatment Not on file documented as of this encounter Visit Diagnoses Not on filedocumented in this encounter Additional Health Concerns Infection Onset Date Last Indicated Resolved Time R/O COVID-19 05/16/2020 05/16/2020 05/18/2020 12:3 1 AM CDT R/O COVID-19 07/25/2020 07/25/2020 07/27/2020 5:01 AM COMMERCIAL LOAN COLLECTION OFFICER R/O COVID-19 09/30/2020 09/30/2020 09/30/2020 7:23 PM COMMERCIAL LOAN COLLECTION OFFICER documented as of this encounter Care Teams Game Technician Relationship Specialty Start Date End Date Radha Cowan MD [address] [place] [phone] PCP - General Family Practice 10/24/20 documented as of this encounter
--- OUTSIDE RECORDS SUMMARY | 2025-06-23 20:59 | XMS_ITS | Encounter Summary ---
Author Organization [facility] Address [address] [place] [address] Care Team Providers Care Oral Hygienist Name Role Phone Radha Cowan MD Primary Care Provider [phone] Encounter Details Date Type Department Care Team (Latest Contact Info) Description 08/11/2002 Outpatient Historical [facility] Augusto Nicole Jr., MD [address] [place] [phone] HYPERLIPIDEMIA NEC/NOS (Primary Dx) Social History Tobacco Use Types Packs/Day Years Used Date Smoking Tobacco: Never Assessed Comments Unknown Sex and Gender Information Value Date Recorded Sex Assigned at Not on file Legal Sex Female 3:33 AM ETIQUETTE COACH Gender Identity Not on file Sexual [...] R/O COVID-19 07/25/2020 07/25/2020 07/27/2020 5:01 AM ETIQUETTE COACH R/O COVID-19 09/30/2020 09/30/2020 09/30/2020 7:23 PM ETIQUETTE COACH documented as of this encounter Care Teams Oral Hygienist Relationship Specialty Start Date End Date Radha Cowan MD [address] [facility] [address] [place] [address] PCP - General Family Practice 10/24/20 documented as of this encounter
--- OUTSIDE RECORDS SUMMARY | 2025-06-23 20:59 | XMS_ITS | Encounter Summary ---
Author Organization [facility] Address [address] [place] [address] Care Team Providers Care Entry Level Buyer Name Role Phone Radha Cowan MD Primary Care Provider Encounter Details Date Type Department Care Team (Latest Contact Info) Description 03/15/2002 Outpatient Historical [facility] Corey Burkett, Augusto Tang MD [address] [place] [phone] DIABETES UNCOMPL ADULT-TYPE II (CMS/HCC) (Primary Dx); ABNORMAL URINE FINDINGS NEC; HEMATURIA; AFTERCARE LONGTERM USE MEDICATN Social History Tobacco Use Types Packs/Day Years Used Date Smoking Tobacco: Never Assessed Comments Unknown Sex and Gender Information Value Date Recorded Sex Assigned at Not on file Legal Sex Female 3:33 AM DOUGH MIXING MACHINE OPERATOR Gender Identity Not on file [...] AM CDT R/O COVID-19 07/25/2020 07/25/2020 07/27/2020 5:0 1 AM DOUGH MIXING MACHINE OPERATOR R/O COVID-19 09/30/2020 09/30/2020 09/30/2020 7:23 PM DOUGH MIXING MACHINE OPERATOR documented as of this encounter Care Teams Entry Level Buyer Relationship Specialty Start Date End Date Radha Cowan MD [address] [address] PCP - General Family Practice 10/24/20 documented as of this encounter
--- OUTSIDE RECORDS SUMMARY | 2025-06-23 20:59 | XMS_ITS | Encounter Summary ---
Author Organization [facility] Address [address] Charlesn: [place] [address] Care Team Providers Care Middle School Coach Name Role Phone Radha Cowan MD Primary Care Provider +1- [phone] Encounter Details Date Type Department Care Team (Late st Contact Info) Description 12/05/2001 Outpatient Historical Augusto Nicole Jr., MD [address] [place] [phone] Social History Tobacco Use Types Packs/Day Years Used Date Smoking Tobacco: Never Assessed Comments Unknown Sex and Gender Information Value Date Recorded Sex Assigned at Not on file Legal Sex Female 3:33 AM LADLE PATCHER Gender Identity Not on file Sexual Orientation Not on file documented as of this encounter Plan of Treatment Not on file documented as of this encounter Visit Diagnoses Not on filedocumented in this encounter Additional Health Concerns Infection Onset Date Last Indicated Resolved Time R/O COVID-19 05/16/2020 05/16/2020 05/18/2020 12:3 1 AM CDT R/O COVID-19 07/25/2020 07/25/2020 07/27/2020 5:01 AM LADLE PATCHER R/O COVID-19 09/30/2020 09/30/2020 09/30/2020 7:23 PM LADLE PATCHER documented as of this encounter Care Teams Middle School Coach Relationship Specialty Start Date End Date Radha Cowan MD [address] [place] [address] PCP - General Family Practice 10/24/20 documented as of this encounter
--- OUTSIDE RECORDS SUMMARY | 2025-06-23 20:59 | XMS_ITS | Encounter Summary ---
Author Organization [facility] Address [address] [place] [address] Care Team Providers Care Supervisor Meter Shop Name Role Phone Radha Cowan MD Primary Care Provider Encounter Details Date Type Department Care Team (Latest Contact Info) Description 04/27/2001 Outpatient Historical [facility] Augusto Nicole Jr., MD [address] [place] [phone] Chest pain, unspecified (Primary Dx); Generalized anxiety disorder Social History Tobacco Use Types Packs/Day Years Used Date Smoking Tobacco: Never Assessed Comments Unknown Sex and Gender Information Value Date Recorded Sex Assigned at Not on file Legal Sex Female 3:33 AM FINANCE LECTURER Gender Identity Not on file Sexual Orientation [...] R/O COVID-19 07/25/2020 07/25/2020 07/27/2020 5:01 AM FINANCE LECTURER R/O COVID-19 09/30/2020 09/30/2020 09/30/2020 7:23 PM FINANCE LECTURER documented as of this encounter Care Teams Supervisor Meter Shop Relationship Specialty Start Date End Date Radha Cowan MD [address] [facility] [address] [place] [address] PCP - General Family Practice 10/24/20 documented as of this encounter
--- OUTSIDE RECORDS SUMMARY | 2025-06-23 20:59 | XMS_ITS | Encounter Summary ---
Author Organization [facility] Address [address] [place] [address] Care Team Providers Care Biofuels Research Scientist Name Role Phone Radha Cowan MD Primary Care Provider [phone]- [phone] Encounter Details Date Type Department Care Team (Latest Contact Info) Description 02/16/2002 Outpatient Historical [facility] Augusto Nicole Jr., MD [address] [place] [phone] ANEMIA NOS (Primary Dx) Social History Tobacco Use Types Packs/Day Years Used Date Smoking Tobacco: Never Assessed Comments Unknown Sex and Gender Information Value Date Recorded Sex Assigned at Not on file Legal Sex Female 3:33 AM VARNISHING UNIT TOOL SETTER Gender Identity Not on file Sexual Orientation Not on file documented as of this encounter Plan of Treatment Not on file documented as of this encounter Visit Diagnoses Diagnosis Anemia, unspecified- Primary documented in this encounter Additional Health Concerns Infection Onset Date Last Indicated Resolved Time R/O COVID-19 05/16/2020 05/16/2020 05/18/2020 12:3 1 AM CDT R/O COVID-19 07/25/2020 07/25/2020 07/27/2020 5:01 AM VARNISHING UNIT TOOL SETTER R/O COVID-19 09/30/2020 09/30/2020 09/30/2020 7:23 PM VARNISHING UNIT TOOL SETTER documented as of this encounter Care Teams Biofuels Research Scientist Relationship Specialty Start Date End Date Radha Cowan MD [address] [place] [phone] PCP - General Family Practice 10/24/20 documented as of this encounter
--- OUTSIDE RECORDS SUMMARY | 2025-06-23 20:59 | XMS_ITS | Encounter Summary ---
Author Organization [facility] Address [address] [place] [address] Care Team Providers Care Continuous Improvement Coordinator Name Role Phone Radha Cowan MD Primary Care Provider [phone] Encounter Details Date Type Department Care Team (Latest Contact Info) Description 06/20/2003 Outpatient Historical [facility] Corey Burkett, Augusto Tang MD [address] [place] [phone] DIABETES UNCOMPL ADULT-TYPE II ([facility]) (Primary Dx); ACUTE BRONCHIOLITIS/RESP SYNC VIRUS; TRACHEA/BRONCHUS DIS NEC; ASTHMA UNSPECIFIED Social History Tobacco Use Types Packs/Day Years Used Date Smoking Tobacco: Never Assessed Comments Unknown Sex and Gender Information Value Date Recorded Sex Assigned at Not on file Legal Sex Female 3:33 AM OPTICAL INSTRUMENT ASSEMBLY SUPERVISOR Gender Identity Not on file Sexual [...] R/O COVID-19 07/25/2020 07/25/2020 07/27/2020 5:01 AM OPTICAL INSTRUMENT ASSEMBLY SUPERVISOR R/O COVID-19 09/30/2020 09/30/2020 09/30/2020 7:23 PM OPTICAL INSTRUMENT ASSEMBLY SUPERVISOR documented as of this encounter Care Teams Continuous Improvement Coordinator Relationship Specialty Start Date End Date Radha Cowan MD [address] [phone] PCP - General Family Practice 10/24/20 documented as of this encounter
--- OUTSIDE RECORDS SUMMARY | 2025-06-23 20:59 | XMS_ITS | Encounter Summary ---
Author Organization [facility] Address [address] [place] [address] Care Team Providers Care Residential Treatment Specialist Name Role Phone Radha Cowan MD Primary Care Provider [phone] Encounter Details Date Type Department Care Team (Latest Contact Info) Description 06/30/2002 Outpatient Historical [facility] Corey Burkett, Augusto Tang MD [address] [place] [phone] DIABETES UNCOMPL ADULT-TYPE II (CMS/HCC) (Primary Dx); RENAL & URETERAL DIS NOS; HYPERTENSION NOS; HYPERLIPIDEMIA NEC/NOS Social History Tobacco Use Types Packs/Day Years Used Date Smoking Tobacco: Never Assessed Comments Unknown Sex and Gender Information Value Date Recorded Sex Assigned at Not on file Legal Sex Female 3:33 AM BUS AND TROLLEY INSPECTING DISPATCHER Gender Identity Not on file Sexual [...] R/O COVID-19 07/25/2020 07/25/2020 07/27/2020 5:01 AM BUS AND TROLLEY INSPECTING DISPATCHER R/O COVID-19 09/30/2020 09/30/2020 09/30/2020 7:23 PM BUS AND TROLLEY INSPECTING DISPATCHER documented as of this encounter Care Teams Residential Treatment Specialist Relationship Specialty Start Date End Date Radha Cowan MD [address] [address] PCP - General Family Practice 10/24/20 documented as of this encounter
--- OUTSIDE RECORDS SUMMARY | 2025-06-23 20:59 | XMS_ITS | Encounter Summary ---
Author Organization [facility] Address [address] [place] [address] Care Team Providers Care Framing Specialist Name Role Phone Radha Cowan MD Primary Care Provider [phone]- [phone] Encounter Details Date Type Department Care Team (Latest Contact Info) Description 12/28/2001 Outpatient Historical [facility] Augusto Nicole Jr., MD [address] [place] [phone] ABN BLOOD CHEMISTRY NEC (Primary Dx) Social History Tobacco Use Types Packs/Day Years Used Date Smoking Tobacco: Never Assessed Comments Unknown Sex and Gender Information Value Date Recorded Sex Assigned at Not on file Legal Sex Female 3:33 AM FINANCIAL PLANNING CONSULTANT Gender Identity Not on file Sexual [...] R/O COVID-19 07/25/2020 07/25/2020 07/27/2020 5:01 AM FINANCIAL PLANNING CONSULTANT R/O COVID-19 09/30/2020 09/30/2020 09/30/2020 7:23 PM FINANCIAL PLANNING CONSULTANT documented as of this encounter Care Teams Framing Specialist Relationship Specialty Start Date End Date Radha Cowan MD [address] [place] [address] PCP - General Family Practice 10/24/20 documented as of this encounter
--- OUTSIDE RECORDS SUMMARY | 2025-06-23 20:59 | XMS_ITS | Encounter Summary ---
Author Organization [facility] Address [address] [place] [address] Care Team Providers Care Looping Machine Operator Name Role Phone Radha Cowan MD Primary Care Provider [phone] Encounter Details Date Type Department Care Team (Latest Contact Info) Description 02/19/2003 Outpatient Historical [facility] Corey Burkett, Augusto Tang MD [address] [place] [phone] DIABETES UNCOMPL ADULT-TYPE II (CMS/HCC) (Primary Dx); MIGRAINE NOS W/O MENTN INTRACTABLE; Pure hypercholesterolem; DERMATOPHYTOSIS OF NAIL Social History Tobacco Use Types Packs/Day Years Used Date Smoking Tobacco: Never Assessed Comments Unknown Sex and Gender Information Value Date Recorded Sex Assigned at Not on file Legal Sex Female 3:33 AM HUMAN RESOURCES DIRECTOR Gender Identity Not on file Sexual [...] R/O COVID-19 07/25/2020 07/25/2020 07/27/2020 5:01 AM HUMAN RESOURCES DIRECTOR R/O COVID-19 09/30/2020 09/30/2020 09/30/2020 7:23 PM HUMAN RESOURCES DIRECTOR documented as of this encounter Care Teams Looping Machine Operator Relationship Specialty Start Date End Date Radha Cowan MD [address] [phone] PCP - General Family Practice 10/24/20 documented as of this encounter
--- OUTSIDE RECORDS SUMMARY | 2025-06-23 20:59 | XMS_ITS | Encounter Summary ---
Author Organization [facility] Address [address] Charlesn: [place] [address] Care Team Providers Care Pulp Screen Operator Name Role Phone Radha Cowan MD Primary Care Provider [phone]- [phone] Encounter Details Date Type Department Care Team (Late st Contact Info) Description 05/19/2002 Outpatient Historical Augusto Nicole Jr., MD [address] [place] [phone] Social History Tobacco Use Types Packs/Day Years Used Date Smoking Tobacco: Never Assessed Comments Unknown Sex and Gender Information Value Date Recorded Sex Assigned at Not on file Legal Sex Female 3:33 AM QUARTER INSPECTOR Gender Identity Not on file Sexual Orientation Not on file documented as of this encounter Plan of Treatment Not on file documented as of this encounter Visit Diagnoses Not on filedocumented in this encounter Additional Health Concerns Infection Onset Date Last Indicated Resolved Time R/O COVID-19 05/16/2020 05/16/2020 05/18/2020 12:3 1 AM CDT R/O COVID-19 07/25/2020 07/25/2020 07/27/2020 5:01 AM QUARTER INSPECTOR R/O COVID-19 09/30/2020 09/30/2020 09/30/2020 7:23 PM QUARTER INSPECTOR documented as of this encounter Care Teams Pulp Screen Operator Relationship Specialty Start Date End Date Radha Cowan MD [address] [place] [phone] PCP - General Family Practice 10/24/20 documented as of this encounter
--- OUTSIDE RECORDS SUMMARY | 2025-06-23 20:59 | XMS_ITS | Encounter Summary ---
Author Organization [facility] Address [address] [place]n: [place] [address] Care Team Providers Care Laster Hand Name Role Phone Radha Cowan MD Primary Care Provider [phone]- [phone] Encounter Details Date Type Department Care Team (Late st Contact Info) Description 06/10/2001 Outpatient Historical Augusto Nicole Jr., MD [address] [place] [phone] Social History Tobacco Use Types Packs/Day Years Used Date Smoking Tobacco: Never Assessed Comments Unknown Sex and Gender Information Value Date Recorded Sex Assigned at Not on file Legal Sex Female 3:33 AM PROMOTIONS EXECUTIVE Gender Identity Not on file Sexual Orientation Not on file documented as of this encounter Plan of Treatment Not on file documented as of this encounter Visit Diagnoses Not on filedocumented in this encounter Additional Health Concerns Infection Onset Date Last Indicated Resolved Time R/O COVID-19 05/16/2020 05/16/2020 05/18/2020 12:3 1 AM CDT R/O COVID-19 07/25/2020 07/25/2020 07/27/2020 5:01 AM PROMOTIONS EXECUTIVE R/O COVID-19 09/30/2020 09/30/2020 09/30/2020 7:23 PM PROMOTIONS EXECUTIVE documented as of this encounter Care Teams Laster Hand Relationship Specialty Start Date End Date Radha Cowan MD [address] [place] [phone] PCP - General Family Practice 10/24/20 documented as of this encounter
--- OUTSIDE RECORDS SUMMARY | 2025-06-23 20:59 | XMS_ITS | Encounter Summary ---
Author Organization [facility] Address [address] [place] [address] Care Team Providers Care Liquid Floor And Wall Applier Name Role Phone Radha Cowan MD Primary Care Provider Encounter Details Date Type Department Care Team (Latest Contact Info) Description 04/24/2002 Outpatient Historical [facility] ToroHema MD [address] [address] SURGERY FOLLOWUP, UNSPEC (Primary Dx) Social History Tobacco Use Types Packs/Day Years Used Date Smoking Tobacco: Never Assessed Comments Unknown Sex and Gender Information Value Date Recorded Sex Assigned at Not on file Legal Sex Female 3:33 AM ASSISTANT DESIGNER Gender Identity Not on file Sexual [...] R/O COVID-19 07/25/2020 07/25/2020 07/27/2020 5:01 AM ASSISTANT DESIGNER R/O COVID-19 09/30/2020 09/30/2020 09/30/2020 7:23 PM ASSISTANT DESIGNER documented as of this encounter Care Teams Liquid Floor And Wall Applier Relationship Specialty Start Date End Date Radha Cowan MD [address] [address] PCP - General Family Practice 10/24/20 documented as of this encounter
--- OUTSIDE RECORDS SUMMARY | 2025-06-23 20:59 | XMS_ITS | Encounter Summary ---
Author Organization [facility] Address [address] [place] [address] Care Team Providers Care Customer Engagement Specialist Name Role Phone Radha Cowan MD Primary Care Provider Encounter Details Date Type Department Care Team (Latest Contact Info) Description 07/05/2001 Outpatient Historical [facility] Augusto Nicole Jr., MD [address] [place] [phone] VACCINE FOR INFLUENZA (Primary Dx) Social History Tobacco Use Types Packs/Day Years Used Date Smoking Tobacco: Never Assessed Comments Unknown Sex and Gender Information Value Date Recorded Sex Assigned at Not on file Legal Sex Female 3:33 AM PRIZE JACKER Gender Identity Not on file Sexual Orientation [...] R/O COVID-19 07/25/2020 07/25/2020 07/27/2020 5:01 AM PRIZE JACKER R/O COVID-19 09/30/2020 09/30/2020 09/30/2020 7:23 PM PRIZE JACKER documented as of this encounter Care Teams Customer Engagement Specialist Relationship Specialty Start Date End Date Radha Cowan MD [address] [facility] [address] [place] [phone] PCP - General Family Practice 10/24/20 documented as of this encounter
--- OUTSIDE RECORDS SUMMARY | 2025-06-23 20:59 | XMS_ITS | Encounter Summary ---
Author Organization [facility] Address [address] [place] [address] Care Team Providers Care Microfilm Processor Name Role Phone Radha Cowan MD Primary Care Provider [phone] Encounter Details Date Type Department Care Team (Late st Contact Info) Description 10/31/2004 Outpatient Historical [facility] Alfonso Carranza MD [address] [address] Social History Tobacco Use Types Packs/Day Years Used Date Smoking Tobacco: Never Assessed Comments Unknown Sex and Gender Information Value Date Recorded Sex Assigned at Not on file Legal Sex Female 3:33 AM BUSINESS SERVICES SPECIALIST SALES Gender Identity Not on file Sexual Orientation Not on file documented as of this encounter Plan of Treatment Not on file documented as of this encounter Visit Diagnoses Not on filedocumented in this encounter Additional Health Concerns Infection Onset Date Last Indicated Resolved Time R/O COVID-19 05/16/2020 05/16/2020 05/18/2020 12:3 1 AM CDT R/O COVID-19 07/25/2020 07/25/2020 07/27/2020 5:01 AM BUSINESS SERVICES SPECIALIST SALES R/O COVID-19 09/30/2020 09/30/2020 09/30/2020 7:23 PM BUSINESS SERVICES SPECIALIST SALES documented as of this encounter Care Teams Microfilm Processor Relationship Specialty Start Date End Date Radha Cowan MD [address] [place] [phone] PCP - General Family Practice 10/24/20 documented as of this encounter
--- OUTSIDE RECORDS SUMMARY | 2025-06-23 20:59 | XMS_ITS | Encounter Summary ---
Author Organization [facility] Address [address] Charlesn: [place] [address] Care Team Providers Care Catering Operations Manager Name Role Phone Radha Cowan MD Primary Care Provider [phone]- [phone] Encounter Details Date Type Department Care Team (Late st Contact Info) Description 09/01/2001 Outpatient Historical Augusto Nicole Jr., MD [address] [place] [phone] Social History Tobacco Use Types Packs/Day Years Used Date Smoking Tobacco: Never Assessed Comments Unknown Sex and Gender Information Value Date Recorded Sex Assigned at Not on file Legal Sex Female 3:33 AM CHILLER TECHNICIAN Gender Identity Not on file Sexual Orientation Not on file documented as of this encounter Plan of Treatment Not on file documented as of this encounter Visit Diagnoses Not on filedocumented in this encounter Additional Health Concerns Infection Onset Date Last Indicated Resolved Time R/O COVID-19 05/16/2020 05/16/2020 05/18/2020 12:3 1 AM CDT R/O COVID-19 07/25/2020 07/25/2020 07/27/2020 5:01 AM CHILLER TECHNICIAN R/O COVID-19 09/30/2020 09/30/2020 09/30/2020 7:23 PM CHILLER TECHNICIAN documented as of this encounter Care Teams Catering Operations Manager Relationship Specialty Start Date End Date Radha Cowan MD [address] [facility] [address] [place] [phone] PCP - General Family Practice 10/24/20 documented as of this encounter
--- OUTSIDE RECORDS SUMMARY | 2025-06-23 20:59 | XMS_ITS | Encounter Summary ---
Author Organization [facility] Address [address] [place]n: [place] [address] Care Team Providers Care Temperature Control Inspector Name Role Phone Radha Cowan MD Primary Care Provider +1- [phone] Encounter Details Date Type Department Care Team (Late st Contact Info) Description 10/13/2001 Outpatient Historical Augusto Nicole Jr., MD [address] [place] [phone] Social History Tobacco Use Types Packs/Day Years Used Date Smoking Tobacco: Never Assessed Comments Unknown Sex and Gender Information Value Date Recorded Sex Assigned at Not on file Legal Sex Female 3:33 AM DAY GUARD Gender Identity Not on file Sexual Orientation Not on file documented as of this encounter Plan of Treatment Not on file documented as of this encounter Visit Diagnoses Not on filedocumented in this encounter Additional Health Concerns Infection Onset Date Last Indicated Resolved Time R/O COVID-19 05/16/2020 05/16/2020 05/18/2020 12:3 1 AM CDT R/O COVID-19 07/25/2020 07/25/2020 07/27/2020 5:01 AM DAY GUARD R/O COVID-19 09/30/2020 09/30/2020 09/30/2020 7:23 PM DAY GUARD documented as of this encounter Care Teams Temperature Control Inspector Relationship Specialty Start Date End Date Radha Cowan MD [address] [place] [phone] PCP - General Family Practice 10/24/20 documented as of this encounter
--- OUTSIDE RECORDS SUMMARY | 2025-06-23 20:59 | XMS_ITS | Encounter Summary ---
Author Organization [facility] Address [address] [place] [address] Care Team Providers Care Double Cut Sawyer Name Role Phone Radha Cowan MD Primary Care Provider [phone]- [phone] Encounter Details Date Type Department Care Team (Latest Contact Info) Description 12/05/2001 Outpatient Historical [facility] Augusto Nicole Jr., MD [address] [place] [phone] HYPERLIPIDEMIA NEC/NOS (Primary Dx) Social History Tobacco Use Types Packs/Day Years Used Date Smoking Tobacco: Never Assessed Comments Unknown Sex and Gender Information Value Date Recorded Sex Assigned at Not on file Legal Sex Female 3:33 AM SOCIAL WORK MANAGER Gender Identity Not on file Sexual [...] R/O COVID-19 07/25/2020 07/25/2020 07/27/2020 5:01 AM SOCIAL WORK MANAGER R/O COVID-19 09/30/2020 09/30/2020 09/30/2020 7:23 PM SOCIAL WORK MANAGER documented as of this encounter Care Teams Double Cut Sawyer Relationship Specialty Start Date End Date Radha Cowan MD [address] [place] [address] PCP - General Family Practice 10/24/20 documented as of this encounter
--- OUTSIDE RECORDS SUMMARY | 2025-06-23 20:59 | XMS_ITS | Encounter Summary ---
Author Organization [facility] Address [address] [place] [address] Care Team Providers Care Directory Compiler Name Role Phone Radha Cowan MD Primary Care Provider Encounter Details Date Type Department Care Team (Latest Contact Info) Description 03/23/2002 Outpatient Historical [facility] Augusto Nicole Jr., MD [address] [place] [phone] ABDOMINAL PAIN UNSPEC SITE (Primary Dx); IRON DEFIC ANEMIA NOS; GENERALIZED ANXIETY DIS Social History Tobacco Use Types Packs/Day Years Used Date Smoking Tobacco: Never Assessed Comments Unknown Sex and Gender Information Value Date Recorded Sex Assigned at Not on file Legal Sex Female 3:33 AM CHAIN MAKER MACHINE Gender Identity Not on file Sexual Orientation [...] R/O COVID-19 07/25/2020 07/25/2020 07/27/2020 5:01 AM CHAIN MAKER MACHINE R/O COVID-19 09/30/2020 09/30/2020 09/30/2020 7:23 PM CHAIN MAKER MACHINE documented as of this encounter Care Teams Directory Compiler Relationship Specialty Start Date End Date Radha Cowan MD [address] [phone] PCP - General Family Practice 10/24/20 documented as of this encounter
--- OUTSIDE RECORDS SUMMARY | 2025-06-23 20:59 | XMS_ITS | Encounter Summary ---
Author Organization [facility] Address [address] [place] [address] Care Team Providers Care Splicer Helper Name Role Phone Radha Cowan MD Primary Care Provider Encounter Details Date Type Department Care Team (Latest Contact Info) Description 01/15/2003 Outpatient Historical [facility] Corey Burkett, Augusto Tang MD [address] [place] [phone] DIABETES UNCOMPL ADULT-TYPE II (CMS/HCC) (Primary Dx); Pure hypercholesterolem; HYPERTENSION NOS; TOBACCO USE DISORDER Social History Tobacco Use Types Packs/Day Years Used Date Smoking Tobacco: Never Assessed Comments Unknown Sex and Gender Information Value Date Recorded Sex Assigned at Not on file Legal Sex Female 3:33 AM VICE PRESIDENT MARKETING & DEVELOPMENT Gender Identity Not on file Sexual [...] R/O COVID-19 07/25/2020 07/25/2020 07/27/2020 5:01 AM VICE PRESIDENT MARKETING & DEVELOPMENT R/O COVID-19 09/30/2020 09/30/2020 09/30/2020 7:23 PM VICE PRESIDENT MARKETING & DEVELOPMENT documented as of this encounter Care Teams Splicer Helper Relationship Specialty Start Date End Date Radha Cowan MD [address] [address] PCP - General Family Practice 10/24/20 documented as of this encounter
--- OUTSIDE RECORDS SUMMARY | 2025-06-23 20:59 | XMS_ITS | Encounter Summary ---
Author Organization [facility] Address [address] [place] [address] Care Team Providers Care Answerer Name Role Phone Radha Cowan MD Primary Care Provider Encounter Details Date Type Department Care Team (Latest Contact Info) Description 01/16/2002 Outpatient Historical [facility] Augusto Nicole Jr., MD [address] [place] [phone] CHRONIC AIRWAY OBSTRUCTION NEC (CMS/[facility]) (Primary Dx); ANEMIA NOS; DEPRESSIVE DISORDER NEC Social History Tobacco Use Types Packs/Day Years Used Date Smoking Tobacco: Never Assessed Comments Unknown Sex and Gender Information Value Date Recorded Sex Assigned at Not on file Legal Sex Female 3:33 AM ACCOUNTING CLERK Gender Identity Not on file Sexual [...] R/O COVID-19 07/25/2020 07/25/2020 07/27/2020 5:01 AM ACCOUNTING CLERK R/O COVID-19 09/30/2020 09/30/2020 09/30/2020 7:23 PM ACCOUNTING CLERK documented as of this encounter Care Teams Answerer Relationship Specialty Start Date End Date Radha Cowan MD [address] [address] PCP - General Family Practice 10/24/20 documented as of this encounter
--- OUTSIDE RECORDS SUMMARY | 2025-06-23 20:59 | XMS_ITS | Encounter Summary ---
Author Organization [facility] Address [address] [place] [address] Care Team Providers Care Truck Driver Helper Name Role Phone Radha Cowan MD Primary Care Provider [phone] Encounter Details Date Type Department Care Team (Latest Contact Info) Description 11/02/2002 Outpatient Historical [facility] Corey Burkett, Augusto Tang MD [address] [place] [phone] DIABETES UNCOMPL ADULT-TYPE II (CMS/HCC) (Primary Dx); Pure hypercholesterolem; LUMBAGO; ABNORMAL FINDINGS-LUNG FIELD Social History Tobacco Use Types Packs/Day Years Used Date Smoking Tobacco: Never Assessed Comments Unknown Sex and Gender Information Value Date Recorded Sex Assigned at Not on file Legal Sex Female 3:33 AM DIRECTOR AIRPORT Gender Identity Not on file Sexual Orientation [...] COVID-19 07/25/2020 07/25/2020 07/27/2020 5:01 AM DIRECTOR AIRPORT R/O COVID-19 09/30/2020 09/30/2020 09/30/2020 7:23 PM DIRECTOR AIRPORT documented as of this encounter Care Teams Truck Driver Helper Relationship Specialty Start Date End Date Radha Cowan MD [address] [address] PCP - General Family Practice 10/24/20 documented as of this encounter
--- OUTSIDE RECORDS SUMMARY | 2025-06-23 20:59 | XMS_ITS | Encounter Summary ---
Author Organization [facility] Address [address] [place] [address] Care Team Providers Care Commercial Illustrator Name Role Phone Radha Cowan MD Primary Care Provider Encounter Details Date Type Department Care Team (Latest Contact Info) Description 04/19/2003 Outpatient Historical [facility] Corey Burkett, Augusto Tang MD [address] [place] [phone] DIABETES UNCOMPL ADULT-TYPE II (CMS/HCC) (Primary Dx); OPEN WOUND KNEE/LEG/ANKLE; HYPERTENSION NOS; HYPERLIPIDEMIA NEC/NOS Social History Tobacco Use Types Packs/Day Years Used Date Smoking Tobacco: Never Assessed Comments Unknown Sex and Gender Information Value Date Recorded Sex Assigned at Not on file Legal Sex Female 3:33 AM AUTO BRAKE TECHNICIAN Gender Identity Not on file Sexual [...] R/O COVID-19 07/25/2020 07/25/2020 07/27/2020 5:01 AM AUTO BRAKE TECHNICIAN R/O COVID-19 09/30/2020 09/30/2020 09/30/2020 7:23 PM AUTO BRAKE TECHNICIAN documented as of this encounter Care Teams Commercial Illustrator Relationship Specialty Start Date End Date Radha Cowan MD [address] [phone] PCP - General Family Practice 10/24/20 documented as of this encounter
--- OUTSIDE RECORDS SUMMARY | 2025-06-23 20:59 | XMS_ITS | Encounter Summary ---
Author Organization [facility] Address [address] [place] [address] Care Team Providers Care Oven Unloader Name Role Phone Radha Cowan MD Primary Care Provider Encounter Details Date Type Department Care Team (Latest Contact Info) Description 07/20/2001 Outpatient Historical [facility] Fadi Hampton MD [address] [place] [address] CHRONIC RHINITIS (Primary Dx); TRACHEA/BRONCHUS DIS NEC; OBESITY NOS; TOBACCO USE DISORDER Social History Tobacco Use Types Packs/Day Years Used Date Smoking Tobacco: Never Assessed Comments Unknown Sex and Gender Information Value Date Recorded Sex Assigned at Not on file Legal Sex Female 3:33 AM JEWEL HOLE FINISH OPENER Gender Identity Not on file Sexual [...] COVID-19 07/25/2020 07/25/2020 07/27/2020 5:0 1 AM JEWEL HOLE FINISH OPENER R/O COVID-19 09/30/2020 09/30/2020 09/30/2020 7:23 PM JEWEL HOLE FINISH OPENER documented as of this encounter Care Teams Oven Unloader Relationship Specialty Start Date End Date Radha Cowan MD [address] [phone] PCP - General Family Practice 10/24/20 documented as of this encounter
--- OUTSIDE RECORDS SUMMARY | 2025-06-23 20:59 | XMS_ITS | Encounter Summary ---
Author Organization [facility] Address [address] [place] [address] Care Team Providers Care Project Consultant Name Role Phone Radha Cowan MD Primary Care Provider Encounter Details Date Type Department Care Team (Latest Contact Info) Description 05/19/2002 Outpatient Historical [facility] Corey Burkett, Augusto Tang MD [address] [place] [phone] DIABETES UNCOMPL ADULT-TYPE II (CMS/HCC) (Primary Dx); Pure hypercholesterolem; AFTERCARE FDC USE MEDICATN Social History Tobacco Use Types Packs/Day Years Used Date Smoking Tobacco: Never Assessed Comments Unknown Sex and Gender Information Value Date Recorded Sex Assigned at Not on file Legal Sex Female 3:33 AM TRASHMAN Gender Identity Not on file Sexual Orientation [...] R/O COVID-19 07/25/2020 07/25/2020 07/27/2020 5:01 AM TRASHMAN R/O COVID-19 09/30/2020 09/30/2020 09/30/2020 7:23 PM TRASHMAN documented as of this encounter Care Teams Project Consultant Relationship Specialty Start Date End Date Radha Cowan MD [address] [phone] PCP - General Family Practice 10/24/20 documented as of this encounter
--- OUTSIDE RECORDS SUMMARY | 2025-06-23 20:59 | XMS_ITS | Encounter Summary ---
Author Organization [facility] Address [address] [place] [address] Care Team Providers Care Instrumentation Manager Name Role Phone Radha Cowan MD Primary Care Provider [phone] Encounter Details Date Type Department Care Team (Latest Contact Info) Description 12/19/2001 Outpatient Historical [facility] Augusto Nicole Jr., MD [address] [place] [phone] ENDOCARDITIS NOS (Primary Dx); EDEMA Social History Tobacco Use Types Packs/Day Years Used Date Smoking Tobacco: Never Assessed Comments Unknown Sex and Gender Information Value Date Recorded Sex Assigned at Not on file Legal Sex Female 3:33 AM INDUSTRIAL GAS SERVICER SUPERVISOR Gender Identity Not on file Sexual [...] COVID-19 07/25/2020 07/25/2020 07/27/2020 5:01 AM INDUSTRIAL GAS SERVICER SUPERVISOR R/O COVID-19 09/30/2020 09/30/2020 09/30/2020 7:23 PM INDUSTRIAL GAS SERVICER SUPERVISOR documented as of this encounter Care Teams Instrumentation Manager Relationship Specialty Start Date End Date Radha Cowan MD [address] [facility] [address] [place] [address] PCP - General Family Practice 10/24/20 documented as of this encounter
--- OUTSIDE RECORDS SUMMARY | 2025-06-23 20:59 | XMS_ITS | Encounter Summary ---
Author Organization [facility] Address [address] [place] [address] Care Team Providers Care Actor Understudy Name Role Phone Radha Cowan MD Primary Care Provider Encounter Details Date Type Department Care Team (Late st Contact Info) Description 06/20/2003 Outpatient Historical [facility] Augusto Nicole Jr., MD [address] [place] [phone] PNEUMONIA, ORGANISM NOS (Primary Dx) Social History Tobacco Use Types Packs/Day Years Used Date Smoking Tobacco: Never Assessed Comments Unknown Sex and Gender Information Value Date Recorded Sex Assigned at Not on file Legal Sex Female 3:33 AM LAP MAKER Gender Identity Not on file Sexual [...] R/O COVID-19 07/25/2020 07/25/2020 07/27/2020 5:01 AM LAP MAKER R/O COVID-19 09/30/2020 09/30/2020 09/30/2020 7:23 PM LAP MAKER documented as of this encounter Care Teams Actor Understudy Relationship Specialty Start Date End Date Radha Cowan MD [address] [phone] PCP - General Family Practice 10/24/20 documented as of this encounter
--- OUTSIDE RECORDS SUMMARY | 2025-06-23 20:59 | XMS_ITS | Encounter Summary ---
Author Organization [facility] Address [address] [place] [address] Care Team Providers Care Vending Machine Coin Collector Name Role Phone Radha Cowan MD Primary Care Provider Encounter Details Date Type Department Care Team (Latest Contact Info) Description 04/27/2003 Outpatient Historical [facility] Augusto Nicole Jr., MD [address] [place] [phone] HAIR DISEASES NEC (Primary Dx); ABN SERUM ENZY LEVEL NEC; HYPERLIPIDEMIA NEC/NOS Social History Tobacco Use Types Packs/Day Years Used Date Smoking Tobacco: Never Assessed Comments Unknown Sex and Gender Information Value Date Recorded Sex Assigned at Not on file Legal Sex Female 3:33 AM PATTERN CHAIN BUILDER Gender Identity Not on file Sexual Orientation [...] R/O COVID-19 07/25/2020 07/25/2020 07/27/2020 5:01 AM PATTERN CHAIN BUILDER R/O COVID-19 09/30/2020 09/30/2020 09/30/2020 7:23 PM PATTERN CHAIN BUILDER documented as of this encounter Care Teams Vending Machine Coin Collector Relationship Specialty Start Date End Date Radha Cowan MD [address] [phone] PCP - General Family Practice 10/24/20 documented as of this encounter
--- OUTSIDE RECORDS SUMMARY | 2025-06-23 20:59 | XMS_ITS | Encounter Summary ---
Author Organization [facility] Address [address] [place] [address] Care Team Providers Care Correctional Nurse Name Role Phone Radha Cowan MD Primary Care Provider +1- [phone] Encounter Details Date Type Department Care Team (Latest Contact Info) Description 05/10/2002 Outpatient Historical [facility] Corey Burkett, Augusto Tang MD [address] [place] [phone] ANEMIA NOS (Primary Dx); EDEMA; DIABETES UNCOMPL ADULT-TYPE II (CMS/HCC); CHRONIC AIRWAY OBSTRUCTION NEC ([facility]) Social History Tobacco Use Types Packs/Day Years Used Date Smoking Tobacco: Never Assessed Comments Unknown Sex and Gender Information Value Date Recorded Sex Assigned at Not on file Legal Sex Female 3:33 AM PICKER FEEDER Gender Identity Not on file Sexual [...] COVID-19 07/25/2020 07/25/2020 07/27/2020 5:01 AM PICKER FEEDER R/O COVID-19 09/30/2020 09/30/2020 09/30/2020 7:23 PM PICKER FEEDER documented as of this encounter Care Teams Correctional Nurse Relationship Specialty Start Date End Date Radha Cowan MD [address] [phone] PCP - General Family Practice 10/24/20 documented as of this encounter
--- OUTSIDE RECORDS SUMMARY | 2025-06-23 20:59 | XMS_ITS | Encounter Summary ---
Author Organization [facility] Address [address] [place] [address] Care Team Providers Care Release Coordinator Name Role Phone Radha Cowan MD Primary Care Provider Encounter Details Date Type Department Care Team (Latest Contact Info) Description 03/07/2003 Outpatient Historical [facility] Corey Burkett, Augusto Tang MD [address] [place] [phone] CHRONIC AIRWAY OBSTRUCTION NEC ([facility]) (Primary Dx); BRONCHITIS NOS; EDEMA; Pure hypercholesterolem Social History Tobacco Use Types Packs/Day Years Used Date Smoking Tobacco: Never Assessed Comments Unknown Sex and Gender Information Value Date Recorded Sex Assigned at Not on file Legal Sex Female 3:33 AM MERIT SYSTEM DIRECTOR Gender Identity Not on file Sexual [...] R/O COVID-19 07/25/2020 07/25/2020 07/27/2020 5:01 AM MERIT SYSTEM DIRECTOR R/O COVID-19 09/30/2020 09/30/2020 09/30/2020 7:23 PM MERIT SYSTEM DIRECTOR documented as of this encounter Care Teams Release Coordinator Relationship Specialty Start Date End Date Radha Cowan MD [address] [phone] PCP - General Family Practice 10/24/20 documented as of this encounter
--- OUTSIDE RECORDS SUMMARY | 2025-06-23 20:59 | XMS_ITS | Encounter Summary ---
Author Organization [facility] Address [address]n: [place] [address] Care Team Providers Care Ep Specialist Name Role Phone Radha Cowan MD Primary Care Provider +[phone]- [phone] Encounter Details Date Type Department Care Team (Late st Contact Info) Description 03/15/2002 Outpatient Historical Augusto Nicole Jr., MD [address] [place] [phone] Social History Tobacco Use Types Packs/Day Years Used Date Smoking Tobacco: Never Assessed Comments Unknown Sex and Gender Information Value Date Recorded Sex Assigned at Not on file Legal Sex Female 3:33 AM INVESTIGATOR CLAIMS Gender Identity Not on file Sexual Orientation Not on file documented as of this encounter Plan of Treatment Not on file documented as of this encounter Visit Diagnoses Not on filedocumented in this encounter Additional Health Concerns Infection Onset Date Last Indicated Resolved Time R/O COVID-19 05/16/2020 05/16/2020 05/18/2020 12:3 1 AM CDT R/O COVID-19 07/25/2020 07/25/2020 07/27/2020 5:01 AM INVESTIGATOR CLAIMS R/O COVID-19 09/30/2020 09/30/2020 09/30/2020 7:23 PM INVESTIGATOR CLAIMS documented as of this encounter Care Teams Ep Specialist Relationship Specialty Start Date End Date Radha Cowan MD [address] [place] [phone] PCP - General Family Practice 10/24/20 documented as of this encounter
--- OUTSIDE RECORDS SUMMARY | 2025-06-23 20:59 | XMS_ITS | Encounter Summary ---
Author Organization [facility] Address [address] [place]n: [place] [address] Care Team Providers Care Laser Machine Operator Name Role Phone Radha Cowan MD Primary Care Provider +1- [phone] Encounter Details Date Type Department Care Team (Late st Contact Info) Description 05/10/2002 Outpatient Historical Augusto Nicole Jr., MD [address] [place] [phone] Social History Tobacco Use Types Packs/Day Years Used Date Smoking Tobacco: Never Assessed Comments Unknown Sex and Gender Information Value Date Recorded Sex Assigned at Not on file Legal Sex Female 3:33 AM FACILITIES OPERATOR Gender Identity Not on file Sexual Orientation Not on file documented as of this encounter Plan of Treatment Not on file documented as of this encounter Visit Diagnoses Not on filedocumented in this encounter Additional Health Concerns Infection Onset Date Last Indicated Resolved Time R/O COVID-19 05/16/2020 05/16/2020 05/18/2020 12:3 1 AM CDT R/O COVID-19 07/25/2020 07/25/2020 07/27/2020 5:01 AM FACILITIES OPERATOR R/O COVID-19 09/30/2020 09/30/2020 09/30/2020 7:23 PM FACILITIES OPERATOR documented as of this encounter Care Teams Laser Machine Operator Relationship Specialty Start Date End Date Radha Cowan MD [address] [place] [phone] PCP - General Family Practice 10/24/20 documented as of this encounter
--- OUTSIDE RECORDS SUMMARY | 2025-06-23 20:59 | XMS_ITS | Encounter Summary ---
Author Organization [facility] Address [address] [facility] [place] [address] Care Team Providers Care Shoe Ironer Name Role Phone Radha Cowan MD Primary Care Provider Encounter Details Date Type Department Care Team (Late st Contact Info) Description 01/24/2004 Inpatient Historical [facility] [address] [place] [address] [place] MD [facility] [address] [place] [phone] Augusto Wright III, MD NO ADDRESS ON FILE RECURR DEPR PSYCHOS-MOD (CMS/HCC) (Primary Dx) Social History Tobacco Use Types Packs/Day Years Used Date Smoking Tobacco: Never Assessed Comments Unknown Sex and Gender Information Value Date Recorded Sex Assigned at Not on file Legal Sex Female 3:33 AM TRACK WATCHMAN Gender Identity Not on file Sexual Orientation [...] R/O COVID-19 07/25/2020 07/25/2020 07/27/2020 5:01 AM TRACK WATCHMAN R/O COVID-19 09/30/2020 09/30/[address]9/30/2020 7:23 PM TRACK WATCHMAN documented as of this encounter Care Teams Shoe Ironer Relationship Specialty Start Date End Date Radha Cowan MD [address] [phone] PCP - General Family Practice 10/24/20 documented as of this encounter
--- OUTSIDE RECORDS SUMMARY | 2025-06-23 20:59 | XMS_ITS | Encounter Summary ---
Author Organization [facility] Address [address] [place] [address] Care Team Providers Care Medical Lab Technologist Name Role Phone Radha Cowan MD Primary Care Provider Encounter Details Date Type Department Care Team (Latest Contact Info) Description 01/12/2003 Outpatient Historical [facility] Pul[facility] [place] [address] [place] [address] Mirza Amezcua MD NO ADDRESS ON FILE COUGH (Primary Dx) Social History Tobacco Use Types Packs/Day Years Used Date Smoking Tobacco: Never Assessed Comments Unknown Sex and Gender Information Value Date Recorded Sex Assigned at Not on file Legal Sex Female 3:33 AM ELASTIC ATTACHER CHAINSTITCH Gender Identity Not on file Sexual Orientation Not on file documented as of this encounter Plan of Treatment Not on file documented as of this encounter Visit Diagnoses Diagnosis Cough- Primary documented in this encounter Additional Health Concerns Infection Onset Date Last Indicated Resolved Time R/O COVID-19 05/16/2020 05/16/2020 05/18/2020 12:3 1 AM CDT R/O COVID-19 07/25/2020 07/25/2020 07/27/2020 5:01 AM ELASTIC ATTACHER CHAINSTITCH R/O COVID-19 09/30/2020 09/30/2020 09/30/2020 7:23 PM ELASTIC ATTACHER CHAINSTITCH documented as of this encounter Care Teams Medical Lab Technologist Relationship Specialty Start Date End Date Radha Cowan MD [address] [facility] [address] [place] [phone] PCP - General Family Practice 10/24/20 documented as of this encounter
--- OUTSIDE RECORDS SUMMARY | 2025-06-23 20:59 | XMS_ITS | Encounter Summary ---
Author Organization [facility] Address [address] [place] [address] Care Team Providers Care Sterile Tech Name Role Phone Radha Cowan MD Primary Care Provider Encounter Details Date Type Department Care Team (Latest Contact Info) Description 08/11/2002 Outpatient Historical [facility] Corey Burkett, Augusto Tang MD [address] [place] [phone] DIABETES UNCOMPL ADULT-TYPE II (CMS/HCC) (Primary Dx); DERMATOPHYTOSIS OF NAIL; ANEMIA NOS; VACCINE FOR INFLUENZA Social History Tobacco Use Types Packs/Day Years Used Date Smoking Tobacco: Never Assessed Comments Unknown Sex and Gender Information Value Date Recorded Sex Assigned at Not on file Legal Sex Female 3:33 AM TOBACCO STRIPPER Gender Identity Not on file Sexual Orientation [...] COVID-19 07/25/2020 07/25/2020 07/27/2020 5:01 AM TOBACCO STRIPPER R/O COVID-19 09/30/2020 09/30/2020 09/30/2020 7:23 PM TOBACCO STRIPPER documented as of this encounter Care Teams Sterile Tech Relationship Specialty Start Date End Date Radha Cowan MD [address] [phone] PCP - General Family Practice 10/24/20 documented as of this encounter
--- OUTSIDE RECORDS SUMMARY | 2025-06-23 20:59 | XMS_ITS | Encounter Summary ---
Author Organization [facility] Address [address] [place]: [place] [address] Care Team Providers Care Senior Clerk Name Role Phone Radha Cowan MD Primary Care Provider +1- [phone] Encounter Details Date Type Department Care Team (Late st Contact Info) Description 12/28/2001 Outpatient Historical Augusto Nicole Jr., MD [address] [place] [phone] Social History Tobacco Use Types Packs/Day Years Used Date Smoking Tobacco: Never Assessed Comments Unknown Sex and Gender Information Value Date Recorded Sex Assigned at Not on file Legal Sex Female 3:33 AM SUCTION DRUM DRIER OPERATOR Gender Identity Not on file Sexual Orientation Not on file documented as of this encounter Plan of Treatment Not on file documented as of this encounter Visit Diagnoses Not on filedocumented in this encounter Additional Health Concerns Infection Onset Date Last Indicated Resolved Time R/O COVID-19 05/16/2020 05/16/2020 05/18/2020 12:3 1 AM CDT R/O COVID-19 07/25/2020 07/25/2020 07/27/2020 5:01 AM SUCTION DRUM DRIER OPERATOR R/O COVID-19 09/30/2020 09/30/2020 09/30/2020 7:23 PM SUCTION DRUM DRIER OPERATOR documented as of this encounter Care Teams Senior Clerk Relationship Specialty Start Date End Date Radha Cowan MD [address] [place] [phone] PCP - General Family Practice 10/24/20 documented as of this encounter
--- OUTSIDE RECORDS SUMMARY | 2025-06-23 20:59 | XMS_ITS | Encounter Summary ---
Author Organization [facility] Address [address] [place]: [place] [address] Care Team Providers Care Windows Server Support Technician Name Role Phone Radha Cowan MD Primary Care Provider +1- [phone] Encounter Details Date Type Department Care Team (Late st Contact Info) Description 07/03/2002 Outpatient Historical Augusto Nicole Jr., MD [address] [place] [phone] Social History Tobacco Use Types Packs/Day Years Used Date Smoking Tobacco: Never Assessed Comments Unknown Sex and Gender Information Value Date Recorded Sex Assigned at Not on file Legal Sex Female 3:33 AM GEL COAT SPRAYER Gender Identity Not on file Sexual Orientation Not on file documented as of this encounter Plan of Treatment Not on file documented as of this encounter Visit Diagnoses Not on filedocumented in this encounter Additional Health Concerns Infection Onset Date Last Indicated Resolved Time R/O COVID-19 05/16/2020 05/16/2020 05/18/2020 12:3 1 AM CDT R/O COVID-19 07/25/2020 07/25/2020 07/27/2020 5:01 AM GEL COAT SPRAYER R/O COVID-19 09/30/2020 09/30/2020 09/30/2020 7:23 PM GEL COAT SPRAYER documented as of this encounter Care Teams Windows Server Support Technician Relationship Specialty Start Date End Date Radha Cowan MD [address] [place] [phone] PCP - General Family Practice 10/24/20 documented as of this encounter
[2025-06-23 21:00] VITALS: BP 127/86; PULSE 105; RESP 28; TEMP 37.2; O2SAT 91; BMI 42.3
--- NOTE | 2025-06-23 21:02 | ED_ITS ---
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 She states this chest pain is similar to previous episodes, comparable to pain from her mass lesion in her lungs, but it is much more severe at this time. She states that she has yet to see a specialist in [place] because they are dragging her feet and will not get a hold of her for an appointment, otherwise she has been routinely doing chemotherapy, no radiation. She does not report any increased shortness of breath, no fevers or chills at home. She is mildly tachycardic here in the ED, she chronically uses 2 L of oxygen as needed if she is short of breath however she is 97% on room air on arrival. She has no reports of nausea vomiting or recent illness otherwise. She was hospitalized at the end of May however for acute hypoxic respiratory failure and had pneumonia where she was treated with IV antibiotics. Her worsening chest pain started tonight, and is in the same exact spot, right upper chest and back, as previous incidences of pain. She endorses anxiety over thinking my respiratory system can shut down at any moment due to the mass. MD elicited complaint: chest pain Pertinent past history: COPD, congestive heart failure and other (Lung cancer) Onset (ago): day(s) Context: other (Lung cancer pain) Timing: progressively worsening Severity: similar to previous episodes Associated symptoms: Reports chest pain; Deny abdominal pain, fever(s), lightheadedness, nausea, palpitations or vomiting Related Data Home Medications ?Medication ?Instructions ?Recorded ?Confirmed insulin lispro 100 unit/mL See Rx Instructions SUBCUT TID PRN 08/02/23 06/19/25 subcutaneous pen (Humalog KwikPen blood sugar (U-100) Insulin) dulaglutide 3 mg/0.5 mL 3 mg SUBCUT Q7D 03/22/24 subcutaneous [facility] ([facility] levothyroxine 25 mcg tablet 25 mcg PO QAM 03/22/24 doxepin 25 mg capsule 50 mg PO BEDTIME 05/29/24 latanoprost 0.005 % eye drops 1 drp ophthalmic (eye) B EDTIME 05/29/24 06/19/25 ubrogepant 50 mg tablet 50 mg PO 1XD PRN Migraine He adache 02/05/25 06/19/25 arformoterol 15 mcg/2 mL solution 2 ml inhalation OSIRIS Y 02/19/25 06/19/25 for nebulization cholecalciferol (vitamin D3) 125 125 mcg PO DAILY 02/0406/19/25 mcg (5,000 unit) capsule loratadine 10 mg capsule (Allergy 10 mg PO DAILY 02/1906/19/25 Relief (loratadine)) bumetanide 1 mg tablet 1 mg PO DAILY 05/24/2506/19 aspirin 81 mg tablet,delayed 81 mg PO DAILY 05/30/25 1 release lactulose 10 gram/15 mL oral See Rx Instructions .Rout e 05/30/25 06/19/25 solution .COMPLEX PRN constipation ondansetron HCl 4 mg tablet 4 mg PO Q6H PRN Nausea And Vomiting 05/30/25 06/19/25 prochlorperazine maleate 10 mg 10 mg PO Q4H PRN mild n ausea 05/30/25 06/19/25 tablet Previous Rx's ?Medication ?Instructions ?Recorded pantoprazole 40 mg tablet,delayed 40 mg PO BID #180 ta bs 02/06/25 release albuterol sulfate 90 mcg/actuation 2 inh inhalation Q4 H PRN shortness 05/21/25 aerosol inhaler of breath or wheezing #6.7 g matt atorvastatin 10 mg tablet 10 mg PO DAILY 90 days #90 t abs 05/24/25 metoprolol tartrate 25 mg tablet 25 mg PO DAILY 90 day s #90 tabs 05/24/25 gabapentin 300 mg capsule 300 mg PO BID #60 caps 05/28 hydrocodone 5 mg-acetaminophen 325 1 tab PO Q6H PRN pa in 30 days #120 06/20/25 mg tablet tabs Allergies Allergy/AdvReac Type Severity Reaction Status Date / Time codeine Allergy Unknown ADR-Nausea Verified 06/19/25 09:30 adhesive tape Allergy ALGY-Bliste Verified 06/19/25 09:30 r ketorolac (From Toradol) Allergy Unknown Verified 06/19/25 09:30 melatonin Allergy ADR-Nausea Verified 06/19/25 09:30 Review of Systems 2 General: Reports: 10 or more systems reviewed and unremarkable except in HPI and below Const: Denies: fever(s), chills or fatigue Eyes: Denies: change in vision ENMT: Denies: throat pain, ear or mastoid pain or nasal discharge Card: Reports: chest pain; Denies: palpitations, swelling of feet/ankles or lightheadedness Resp: Denies: dyspnea, productive cough or wheezing GI: Denies: abdominal pain, nausea, vomiting, diarrhea or constipation Musc: Denies: neck pain, back pain or joint pain Skin/Breast: Denies: rash Neuro: Denies: headache(s), numbness in extremities or weakness in extremities PFSH ED 2 PFSH: Medical History Chemotherapy induced neutropenia History of cataract cataract left eye 09/20 right eye 12/20 Chronic constipation 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 Pleuritic chest pain Chronic hypoxemic respiratory failure Small cell lung cancer Nicotine use disorder PTSD (post-traumatic stress disorder) Bipolar disorder current episode depressed History of attempted suicide Hypothyroidism (acquired) Duodenitis Gastritis Sleep apnea Obesity Bipolar affect, depressed Depression Hypertension Diabetes Oxygen dependent CHF (congestive heart failure) GERD (gastroesophageal reflux disease) COPD (chronic obstructive pulmonary disease) 3L o2 , mild to mod copd responsive to bronchodilator Enrolled in chronic care management Surgical History History of appendectomy H/O colonoscopy with polypectomy H/O esophagogastroduodenoscopy Tubal ligation status S/P cholecystectomy Family History Father Lung cancer Sister Ovarian cancer Mother Diabetes Other CAD (coronary artery disease) Social History Smoking and tobacco/nicotine status: current every day tobacco/nicotine user cigarettes Packs smoked per day: 1 Years cigarettes smoked: 37 [ Other cigarette details: She had quit smoking for 8 months, but then started again.] Alcohol intake: former Year of sobriety/quit date alcohol: 1999 Substance/Drug Use: never Additional social history: She lives alone and states she drives herself to her chemo. She wants full CODE STATUS as discussed today with Fredi Curry MD on 02/05/2025 Adopted: No Caregiver/support person: No Lives independently: No Household members: family Housing: House Current gender identity: Female Physical Exam 2 Const: COMMON NORMALS: no limitations GENERAL APPEARANCE: cooperative N UTRITIONAL APPEARANCE: obese morbidly obese ORIENTATION/CONSCIOUSNESS: Yes awake, Yes oriented to person, Yes oriented to place and Yes oriented to time OTHER: No respiratory distress HENMT: COMMON NORMALS: normocephalic, atraumatic and hearing grossly normal bilaterally HEAD & SCALP: normocephalic and atraumatic Eye: COMMON NORMALS: Equal, round and reactive pupils present, EOMs intact bilaterally and conjunctivae normal CONJUNCTIVA: Yes conjunctivae normal P UPIL: Yes Equal, round and reactive pupils present Neck/C-Spine: COMMON NORMALS: full ROM, supple and no JVD Resp: COMMON NORMALS: No retractions and No use of accessory muscles EFFORT & INSPECTION: Yes tachypneic (Mild) OTHER: Diffuse expiratory wheezing Cardio: COMMON NORMALS: no JVD, regular rate, regular rhythm, No clicks present (Cardio), No murmurs present (Cardio) and No rub (Cardio) RATE: r egular rate RHYTHM: regular rhythm GI: COMMON NORMALS: Soft to palpation and non-tender INSPECTION: Yes central obesity AUSCULTATION: Yes normoactive bowel sounds PALPATION: Yes Soft to palpation RECTAL EXAM: deferred Extremity: COMMON NORMALS: full ROM and capillary refill normal NARRATIVE EXTREMITY EXAM: 2+ pitting edema bilateral lower extremi ties Neuro: COMMON NORMALS: moves all extremities, no focal motor deficits and no sensory deficits noted SENSORIUM/ORIENTATION: Yes oriented to person, Yes oriented to place and Yes oriented to time Skin: COMMON NORMALS: no rashes or lesions noted GENERAL SKIN EXAM: no rashes or lesions noted Course 2 Vital Signs: Vital signs: Vital Signs Temperature 99 F 06/23/25 21:00 Pulse Rate 113 H 06/23/25 23:51 Respiratory Rate 18 06/23/25 21:40 Blood Pressure 131/79 06/23/25 23:51 Pulse Oximetry 94 06/23/25 23:51 Oxygen Delivery Me thod Nasal Cannula 06/23/25 22:18 Oxygen Flow Rate 3 06/23/25 22:18 MDM - SOB/Dyspnea Medical Decision Making This patient presented by ambulance for chest pain, history of small cell lung cancer and states this pain is comparable to the chronic pain she has had but this is much worse. Arrives tachycardic but afebrile, no other associated symptoms such as no worsening shortness of breath or nausea/vomiting. She uses oxygen as needed when she feels short of breath, has not required any new oxygen demand here in the ED. No significant respiratory distress on exam. Chest x- ray obtained initially showing no interval change. She is not neutropenic at this time. Troponin was negative, D-dimer elevated, but rest of lab work unremarkable. CTA chest is demonstrating no PE and no significant progression of the lung mass. She has complete resolution of symptoms after IV fentanyl here in the ED and has maintained stable. She states that she is set to see a specialist up in [place], likely she is meeting cardiothoracic surgery, for removal of the mass. She is informed to keep this plan and to continue chemotherapy as scheduled, in the meantime no need for admission to the hospital she is to continue home pain medication regimen. She agrees with this plan and is comfortable discharge at this time. Spoke to Dr. Umana about this patient. Lab Data 06/23/25 21:50 06/23/25 21:50 Labs/Radiology: Radiology Impressions Chest X-Ray 06/23/25 20:29 IMPRESSION: Little interval change. Chest CTA 06/23/25 22:14 IMPRESSION: 1. No evidence of pulmonary embolism. 2. Similar perihilar lung mass, compatible with known malignancy. 3. Scattered ill-defined ground-glass opacities in the left lung could represent atelectasis, mild edema, or less likely atypical infection. 4. Bronchial wall thickening and mucous plugging in the lower lobes. Laboratory Results WBC 3.56 10^3/uL (3.29-11.43) 06/23/25 21:50 RBC 2.45 10^6/uL (3.85-5.65) L 06/23/25 21:50 Hgb 7.30 g/dL (11.27-16.99) L 06/23/25 21:50 Hct 23.2 % (36-47) L 06/23/25 21:50 MCV 94.7 fl (85-98) 06/23/25 21:50 MCH 29.8 pg (27-33) 06/23/25 21:50 MCHC 31.5 g/dL (30-55) 06/23/25 21:50 RDW 15.2 % (12.1-15.1) H 06/23/25 21:50 Plt Count 172 10^3/cmm (157-399) 06/23/25 21:50 MPV 8.9 fL (7.4-10.4) 06/23/25 21:50 Neut % (Auto) 78.3 % 06/23/25 21:50 Lymph % (Auto) 16.6 % 06/23/25 21:50 Angelina % (Auto) 3.9 % 06/23/25 21:50 Eos % (Auto) 0.6 % 06/23/25 21:50 Baso % (Auto) 0.3 % 06/23/25 21:50 Neut # (Auto) 2.79 10^3/uL (1.8-7.7) 06/23/25 21:50 Lymph # (Auto) 0.6 10^3/uL (0.8-4.8) L 06/23/25 21:50 Angelina # (Auto) 0.1 10^3/uL (0.2-0.9) L 06/23/25 21:50 Eos # (Auto) 0.0 10^3/uL (0.0-0.8) 06/23/25 21:50 Baso # (Auto) 0.0 10^3/uL (0.0-0.1) 06/23/25 21:50 Nucleated RBC % (auto) 0 % 06/23/25 21:50 Nucleated RBCs # 0.0 /100WBC 06/23/25 21:50 PT 12.90 SECONDS (12.1-14.9) 06/23/25 21:50 INR 0.91 (0.8-1.2) 06/23/25 21:50 D-Dimer 2.06 ug/mLFEU (0-0.59) H 06/23/25 21:50 Sodium 140 mmol/L (136-145) 06/23/25 21:50 Potassium 3.6 mmol/L (3.5-5.1) 06/23/25 21:50 Chloride 104 mmol/L (98-107) 06/23/25 21:50 Carbon Dioxide 24 mmol/L (22-29) 06/23/25 21:50 Anion Gap 15.6 (5-19) 06/23/25 21:50 BUN 12 mg/dL (8-23) 06/23/25 21:50 Creatinine 0.7 mg/dL (0.5-0.9) 06/23/25 21:50 GFR Calculation 83.0 mL/min (90-130) L 06/23/25 21:50 Glucose 93 mg/dL (65-115) 06/23/25 21:50 Calculated Osmolality 289 mOsm/kg (285-295) 06/23/25 21:50 Calcium 8.6 mg/dL (8.5-10.5) 06/23/25 21:50 Total Bilirubin 0.4 mg/dL (0.15-1.2) 06/23/25 21:50 AST 13 U/L (0-32) 06/23/25 21:50 ALT 13 U/L (0-33) 06/23/25 21:50 Alkaline Phosphatase 88 U/L (35-105) 06/23/25 21:50 Troponin T Baseline 8 ng/L (0-10) 06/23/25 21:50 Total Protein 5.9 g/dL (6.6-8.7) L 06/23/25 21:50 Albumin 3.8 g/dL (3.5-5.2) 06/23/25 21:50 Globulin 2.1 g/dL (1.3-4.6) 06/23/25 21:50 Lipase 13 U/L (13-60) 06/23/25 21:50 All radiology interpretation(s) finalized by discharge Discharge Plan Discharge Patient Disposition: Home Clinical Impression: Cancer-related pain Chest pain Qualifiers: Chest pain type: unspecified Qualified Code(s): R07.9 - Chest pain, unspecified Condition: Stable Prescriptions: No Action bumetanide 1 mg tablet 1 mg PO DAILY metoprolol tartrate 25 mg tablet 25 mg PO DAILY 90 Days Qty: 90 1RF atorvastatin 10 mg tablet 10 mg PO DAILY 90 Days Qty: 90 4RF insulin lispro [Humalog KwikPen Insulin] 100 unit/mL insulin pen See Rx Instructions SUBCUT TID PRN (Reason: blood sugar) Rx Instructions: Use per sliding scale subcutaneously three times daily as needed. doxepin 25 mg capsule 50 mg PO BEDTIME latanoprost 0.005 % drops 1 drp ophthalmic (eye) BEDTIME cholecalciferol (vitamin D3) 125 mcg (5,000 unit) capsule 125 mcg PO DAILY arformoterol 15 mcg/2 mL solution for nebulization 2 ml inhalation DAILY Allergy Relief (loratadine) 10 mg capsule 10 mg PO DAILY gabapentin 300 mg capsule 300 mg PO BID Qty: 60 2RF pantoprazole 40 mg tablet,delayed release (DR/EC) 40 mg PO BID Qty: 180 0RF hydrocodone-acetaminophen 5-325 mg tablet 1 tab PO Q6H PRN (Reason: pain) 30 Days Qty: 120 0RF Trulicity 3 mg/0.5 mL pen injector 3 mg SUBCUT Q7D Rx Instructions: ON WEDNESDAY levothyroxine 25 mcg tablet 25 mcg PO QAM ubrogepant 50 mg Tablet 50 mg PO 1XD PRN (Reason: Migraine Headache) albuterol sulfate 90 mcg/actuation HFA aerosol inhaler 2 inh inhalation Q4H PRN (Reason: shortness of breath or wheezing) Qty: 6.7 0RF Rx Instructions: Please provide patient with a spacer ondansetron HCl 4 mg tablet 4 mg PO Q6H PRN (Reason: Nausea And Vomiting) prochlorperazine maleate 10 mg tablet 10 mg PO Q4H PRN (Reason: mild nausea) lactulose 10 gram/15 mL solution See Rx Instructions .ROUTE .COMPLEX PRN (Reason: constipation) Rx Instructions: Take 30 mL every 2 hours until bowel movement. If no bowel movement within 72 hours, may repeat. aspirin 81 mg Tablet,Delayed Release (Dr/Ec) 81 mg PO DAILY Discharge Orders: Discharge ED (Routine); Ordered 06/24/25 Ordered By: Lito Sevilla Referrals: Raad Bhatt FNP [Primary Care Provider, Family Practice] Patient Instructions: Patient Portal & Pankaj Instructions Activity Restrictions/Additional Instructions: Discharge Instructions: Cancer Pain Diagnosis and ED Course: You were seen for chest pain related to your cancer. All tests?including CT scan, EKG, and blood work?showed no progression of your cancer and no evidence of heart attack or infection. Your pain improved with fentanyl, and you will continue your home pain regimen. Medications: - Continue taking oxycodone as prescribed for pain. - Alternate with acetaminophen (Tylenol) as directed. - Take medications only as prescribed. Do not increase the dose or frequency without consulting your provider. - Keep a list of all your medications and bring it to each appointment. Pain Management: - Take pain medications on a regular schedule for persistent pain, and as needed for breakthrough pain. - Monitor for side effects, especially constipation. Use stool softeners or laxatives if needed, and contact your provider if you have no bowel movement for 3 days. - Report any new or worsening pain, pain not relieved by medication, or any side effects such as nausea, vomiting, confusion, or difficulty waking up. Safety and Storage: - Store pain medications in a secure location, preferably a locked box, away from others. - Do not share your medications. - Dispose of unused opioids according to FDA recommendations (flush down the toilet if no take-back program is available). Follow-Up: - Schedule and keep all outpatient appointments. - Contact your provider if you have trouble obtaining medications or if pain worsens. - You will be reassessed for pain and medication side effects at each visit. - If you have after-hours pain or medication concerns, call your provider using the contact information provided. Other Instructions: - You did not have any fevers or signs of infection during your stay. - If you develop fever, chills, or other concerning symptoms, call your provider immediately. - Engage in gentle activity as tolerated. Non-drug approaches such as relaxation, mindfulness, or music may help with pain. - Emotional and psychosocial support is available; ask your care team for resources if needed. When to Call Immediately: - New or severe pain not relieved by medication - Trouble breathing, chest pain different from your usual pain - Fever or signs of infection - Severe constipation, vomiting, confusion, or trouble waking up Plan for Refills: - Plan ahead for prescription refills, especially for opioids, as these cannot be called in by phone. Goals: - The goal is to keep you comfortable, maintain your daily activities, and minimize side effects. - Your pain management plan will be adjusted as needed to meet your goals. If you have any questions or concerns, please contact your care team. Print Language: Welsh Coding Level of Care Code ED Lockstitch Front Edge Tape Sewer for Farhat Cooper
[2025-06-23 21:40] VITALS: PULSE 108; RESP 18; O2SAT 93
[2025-06-23 21:47] VITALS: PULSE 112
[2025-06-23 21:57] LABS: Hematocrit 23.2 % (36-47); Hemoglobin 7.30 g/dL (11.27-16.99); Mean Corpuscular HGB Conc 31.5 g/dL (30-55); Mean Corpuscular Hemoglobin 29.8 pg (27-33); Mean Corpuscular Volume 94.7 fl (85-98); Nucleated Red Blood Cells % 0 %; Platelet Count 172 10^3/cmm (157-399); Red Blood Count 2.45 10^6/uL (3.85-5.65); White Blood Count 3.56 10^3/uL (3.29-11.43)
[2025-06-23 22:08] LABS: INR 0.91 (0.8-1.2); Prothrombin Time 12.90 SECONDS (12.1-14.9)
[2025-06-23] MEDS: fentaNYL 50 mcg/mL INJ 2mL 100 MCG IVP (22:09)
--- NOTE | 2025-06-23 22:14 | CTR_ITS ---
PROCEDURE INFORMATION: Exam: CTA Chest With Contrast Exam date and time: 06/23/2025 11:21 PM Age: 70 years old Clinical indication: Pain and abnormal findings; Abnormal diagnostic tests; Elevated d-dimer; Shortness of breath; Chest pressure; Prior surgery; Surgery date: 6+ months; Surgery type: Port a cath. Gb; Chest pain with hypoxia and dimer of 2.06. History of small cell lung cancer and chf. ; Additional info: Cp, HX of cancer, elevated dimer TECHNIQUE: Imaging protocol: Computed tomographic angiography of the chest with contrast. Exam focused on the arteries. 3D rendering (Not supervised by radiologist): MIP and/or 3D reconstructed images were created by the technologist. Radiation optimization: All CT scans at this facility use at least one of these dose optimization techniques: automated exposure control; mA and/or kV adjustment per patient size (includes targeted exams where dose is matched to clinical indication); or iterative reconstruction. Contrast material: OMNI 350; Contrast volume: 115 ml; Contrast route: INTRAVENOUS (IV); COMPARISON: CT angio chest PE protcl [id number] 05/30/2025 12:22 PM RADIATION DOSE METRICS: Total DLP (mGy-cm): 958.37 FINDINGS: Tubes, catheters and devices: Left IJ Port-A-Cath tip is in the right atrium. Pulmonary arteries: The main pulmonary artery measures 3.2 cm in caliber. No pulmonary arterial filling defect of the level of the proximal subsegmental pulmonary arteries. Aorta: Of the thoracic aorta is nonaneurysmal with mild atherosclerotic calcifications. Lungs: Redemonstrated right perihilar lung mass which measures about 7.5 x 7.6 cm in axial dimensions, not significantly changed from prior. The mass is again seen encasing and narrowing of the pulmonary arteries and bronchi in the vicinity. The scattered ill-defined ground-glass opacities throughout the left lung. Mild bronchial wall thickening and mucous plugging in bilateral lower lobes. Pleural spaces: Unremarkable. No pneumothorax. No pleural effusion. Heart: Unremarkable. No cardiomegaly. No pericardial effusion. Lymph nodes: Unremarkable. No enlarged lymph nodes. Gallbladder and biliary ducts: Status post cholecystectomy. Bones/joints: Mild degenerative changes of the visualized spine. Soft tissues: Unremarkable. CT/CT angio chest PE protcl [id number] IMPRESSION: 1. No evidence of pulmonary embolism. 2. Similar perihilar lung mass, compatible with known malignancy. 3. Scattered ill-defined ground-glass opacities in the left lung could represent atelectasis, mild edema, or less likely atypical infection. 4. Bronchial wall thickening and mucous plugging in the lower lobes.
[2025-06-23 22:18] VITALS: BP 110/78; PULSE 109; O2SAT 93
[2025-06-23 22:23] LABS: Troponin(5th) Baseline 8 ng/L (0-10)
--- NOTE | 2025-06-23 22:29 | ECG_ITS ---
[facility] Test Date: 2025-06-23 Pat Name: Marli Eli Department: Room: Gender: Female Mime Artist: : 1955 Requested By: Malini Umana Order Number: [id number] Delgado MD: Marisa Butterifeld M.D. Measurements Intervals [place] Rate: 108 P: 20 IA: 108 QRS: 58 QRSD: 144 T: 32 QT: 353 QTc: 475 Interpretive Statements SINUS TACHYCARDIA WITH SHORT IA INTERVAL INDETERMINATE AXIS RIGHT BUNDLE BRANCH BLOCK [120+ ms QRS DURATION, UPRIGHT V1, 40+ ms S IN I/aVL/V4/V5/V6] Compared to ECG 06/23/2025 20:47:31 Short IA interval now present Electronically Signed On 06-26-2025 19:47:09 CDT by Marisa Butterfield M.D. [email or web address]
[2025-06-23 22:59] LABS: Alanine Aminotransferase 13 U/L (0-33); Albumin Level 3.8 g/dL (3.5-5.2); Alkaline Phosphatase 88 U/L (35-105); Anion Gap 15.6 (5-19); Aspartate Amino Transferase 13 U/L (0-32); Blood Urea Nitrogen 12 mg/dL (8-23); Calcium 8.6 mg/dL (8.5-10.5); Carbon Dioxide 24 mmol/L (22-29); Chloride 104 mmol/L (98-107); Creatinine Clr Calc Pharmacy 78.3750; Globulin 2.1 g/dL (1.3-4.6); Glucose 93 mg/dL (65-115); Lipase 13 U/L (13-60); Osmolality Calculated 289 mOsm/kg (285-295); Potassium 3.6 mmol/L (3.5-5.1); Sodium 140 mmol/L (136-145); Total Protein 5.9 g/dL (6.6-8.7)
[2025-06-23] MEDS: iohexol 350 mg/mL 500 mL Btl (per mL) IV (23:16)
[2025-06-23 23:51] VITALS: BP 131/79; PULSE 113; O2SAT 94
[2025-06-24 00:27] LABS: Troponin 5 2HR 8.65 ng/L (0-10); Troponin 5 2HR Delta 0.65 ABS# (0-10)
[2025-06-24 00:33] VITALS: BP 117/83
[2025-06-24 00:44] VITALS: BP 117/83; PULSE 109; O2SAT 99
== END 2025-06-24 00:40 | disposition home or self-care (01) ==
PROVIDERS: Emergency Medicine; Emergency Provider Physician Assistant; PCP Registered Nurse
DX: C34.11 Malignant neoplasm of upper lobe, right bronchus or lung (principal); G89.3 Neoplasm related pain (acute) (chronic); R07.9 Chest pain, unspecified; Z79.4 Long term (current) use of insulin; Z79.82 Long term (current) use of aspirin; Z79.85 Long-term (current) use of injectable non-insulin antidiabetic drugs; F17.210 Nicotine dependence, cigarettes, uncomplicated; J44.9 Chronic obstructive pulmonary disease, unspecified; E11.9 Type 2 diabetes mellitus without complications; I11.0 Hypertensive heart disease with heart failure; I50.9 Heart failure, unspecified
CPT/HCPCS: 36415; 36591; 71045; 71275; 80053; 83690; 84484; 85025; 85378; 85610; 93005; 94640; 96374; 99285; J3010; J9999

== ENCOUNTER 2025-06-25 08:11 | Oncology outpatient (recurring) (ONCR) | payer MEDICARE, MEDICAID, SELFPAY ==
[2025-06-19 09:12] LABS: Hematocrit 26.2 % (36-47); Hemoglobin 8.30 g/dL (11.27-16.99); Mean Corpuscular HGB Conc 31.7 g/dL (30-55); Mean Corpuscular Hemoglobin 29.9 pg (27-33); Mean Corpuscular Volume 94.2 fl (85-98); Nucleated Red Blood Cells % 0.9 %; Platelet Count 204 10^3/cmm (157-399); Red Blood Count 2.78 10^6/uL (3.85-5.65); White Blood Count 5.47 10^3/uL (3.29-11.43)
[2025-06-19 09:39] LABS: Alanine Aminotransferase 14 U/L (0-33); Albumin Level 3.7 g/dL (3.5-5.2); Alkaline Phosphatase 80 U/L (35-105); Anion Gap 14.7 (5-19); Aspartate Amino Transferase 10 U/L (0-32); Blood Urea Nitrogen 15 mg/dL (8-23); Calcium 8.7 mg/dL (8.5-10.5); Carbon Dioxide 26 mmol/L (22-29); Chloride 101 mmol/L (98-107); Creatinine Clr Calc Pharmacy 79.7056; Globulin 2.3 g/dL (1.3-4.6); Glucose 147 mg/dL (65-115); Osmolality Calculated 290 mOsm/kg (285-295); Potassium 3.7 mmol/L (3.5-5.1); Sodium 138 mmol/L (136-145); Thyroid Stimulating Hormone 2.47 uIU/mL (0.27-4.20); Total Protein 6.0 g/dL (6.6-8.7)
[2025-06-19] MEDS: ondansetron 2 mg/ML SDV 2 mL 8 MG IVP (10:36)
[2025-06-19] MEDS: TOPOTECAN IV (11:17)
[2025-06-19] MEDS: SODIUM CHLORIDE 0.9% IV (11:17)
[2025-06-19 12:09] VITALS: BP 124/84; PULSE 101; RESP 18; TEMP 36.1; O2SAT 97
[2025-06-20 09:37] VITALS: BP 107/73; PULSE 100; RESP 18; TEMP 36.3; O2SAT 97
[2025-06-20] MEDS: ondansetron 2 mg/ML SDV 2 mL 8 MG IVP (09:46)
[2025-06-20] MEDS: SODIUM CHLORIDE 0.9% IV (10:14)
[2025-06-20] MEDS: TOPOTECAN IV (10:14)
[2025-06-20 10:59] VITALS: RESP 18; O2SAT 95
[2025-06-20] MEDS: morphine 4 mg/mL SDV 1 mL 1 MG IVP (10:59)
[2025-06-20 11:06] VITALS: BP 112/79; PULSE 98; RESP 18; TEMP 36.3; O2SAT 94
[2025-06-21 09:45] VITALS: BP 101/63; PULSE 98; RESP 17; TEMP 35.9; O2SAT 98
[2025-06-21] MEDS: ondansetron 2 mg/ML SDV 2 mL 8 MG IVP (09:52)
[2025-06-21] MEDS: SODIUM CHLORIDE 0.9% IV (10:34)
[2025-06-21] MEDS: TOPOTECAN IV (10:34)
[2025-06-21 13:55] VITALS: BP 105/65; PULSE 101; RESP 17; TEMP 35.7; O2SAT 97
[2025-06-22 09:00] VITALS: BP 109/74; PULSE 95; TEMP 36.6; O2SAT 94
[2025-06-22] MEDS: ondansetron 2 mg/ML SDV 2 mL 8 MG IVP (09:09)
[2025-06-22] MEDS: TOPOTECAN IV (09:41)
[2025-06-22] MEDS: SODIUM CHLORIDE 0.9% IV (09:41)
[2025-06-22 10:32] VITALS: BP 115/64; PULSE 98; RESP 16; TEMP 36.4; O2SAT 95
[2025-06-25 08:31] VITALS: BP 122/76; PULSE 98; RESP 17; TEMP 36.2; O2SAT 99
[2025-06-25] MEDS: ondansetron 2 mg/ML SDV 2 mL 8 MG IVP (08:40)
[2025-06-25 09:29] VITALS: RESP 18; O2SAT 99
[2025-06-25] MEDS: morphine 4 mg/mL SDV 1 mL 1 MG IVP (09:29)
[2025-06-25] MEDS: SODIUM CHLORIDE 0.9% IV (10:06)
[2025-06-25] MEDS: TOPOTECAN IV (10:06)
[2025-06-25 10:45] VITALS: BP 129/84; PULSE 96; RESP 17; TEMP 36.3; O2SAT 99
[2025-06-25] MEDS: pegfilgrastim 6 mg/0.6 mL Kit (onpro) SUBCUT (10:50)
== END 2025-07-06 23:59 | disposition home or self-care (01) ==
PROVIDERS: Nurse Practitioner Family; PCP Registered Nurse; Visit Provider Internal Medicine Medical Oncology
DX: Z51.11 Encounter for antineoplastic chemotherapy (principal); C34.11 Malignant neoplasm of upper lobe, right bronchus or lung; Z79.899 Other long term (current) drug therapy
CPT/HCPCS: 80053; 83615; 84443; 85025; 96367; 96372; 96375; 96377; 96413; 99214; J2270; J2405; J2506; J7040; J7050; J7613; J9351

== ENCOUNTER 2025-06-28 18:09 | Inpatient (IN) | payer MEDICARE, MEDICAID, SELFPAY ==
--- NOTE | 2025-06-28 18:15 | XRR_ITS ---
PROCEDURE INFORMATION: Exam: XR Chest Exam date and time: 06/28/2025 6:32 PM Age: 70 years old Clinical indication: Shortness of breath TECHNIQUE: Imaging protocol: Radiologic exam of the chest. Views: 1 view. COMPARISON: 1. CR XR chest 1V portable [id number] 05/30/2025 11:[address] angio chest PE protcl [id number] 06/23/2025 11:21 PM FINDINGS: Tubes, catheters and devices: Left chest port terminates at the right atrium. Lungs: Similar right mid lung zone opacity in keeping with known mass. Pleural spaces: Unremarkable. No pleural effusion. No pneumothorax. Heart/Mediastinum: Unremarkable. No cardiomegaly. Vasculature: Aortic arch atherosclerotic calcification. Bones/joints: Degenerative change along the spine and acromioclavicular joints. XR/XR chest 1V portable [id number] IMPRESSION: 1. No acute findings. 2. Similar right mid lung zone opacity in keeping with known mass.
--- NOTE | 2025-06-28 18:15 | ECG_ITS ---
[facility] Test Date: 2025-06-28 Pat Name: Marli Eli Department: Room: Gender: Female Habilitation Specialist: : [id number] Requested By: Sarah Toribio Order Number: [id number] Delgado MD: Marisa Butterfield M.D. Measurements Intervals [place] Rate: 131 P: 63 [place]: 139 QRS: 76 QRSD: 134 T: 47 QT: 316 QTc: 467 Interpretive Statements SINUS TACHYCARDIA RIGHT BUNDLE BRANCH BLOCK [120+ ms QRS DURATION, UPRIGHT V1, 40+ ms S IN I/aVL/V4/V5/V6] Compared to ECG 06/23/2025 22:33:33 Short [place] interval no longer present Indeterminate axis no longer present Electronically Signed On 06-29-2025 15:24:45 CDT by Marisa Butterfield M.D. [email or web address] [id number]
--- OUTSIDE RECORDS SUMMARY | 2025-06-28 18:19 | XMS_ITS | Encounter Summary ---
Author Organization [facility] Address [address] [place] [address] Care Team Providers Care Pneumatic Tester Mechanic Name Role Phone Radha Cowan MD Primary Care Provider Encounter Details Date Type Department Care Team (Latest Contact Info) Description 08/28/1998 Outpatient Historical [facility] Augusto Nicole Jr., MD [address] [place] [id number] Attention to dressings and sutures (Primary Dx); Dermatophytosis of foot Social History Tobacco Use Types Packs/Day Years Used Date Smoking Tobacco: Never Assessed Comments Unknown Sex and Gender Information Value Date Recorded Sex Assigned at Not on file Legal 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
--- OUTSIDE RECORDS SUMMARY | 2025-06-28 18:19 | XMS_ITS | Encounter Summary ---
Author Organization [facility] Address [address] [place] [address] Care Team Providers Care Hosted Services Analyst Name Role Phone Radha Cowan MD Primary Care Provider Encounter Details Date Type Department Care Team (Latest Contact Info) Description 04/17/1999 Outpatient Historical [facility] Augusto Nicole Jr., MD [address] [place] [phone] Chest pain, unspecified (Primary Dx); Edema; Major depressive disorder, single episode, unspecified Social History Tobacco Use Types Packs/Day Years Used Date Smoking Tobacco: Never Assessed Comments Unknown Sex and Gender Information Value Date Recorded Sex Assigned at Not on file Legal Sex Female 3:33 AM LEARNING DEVELOPMENT SPECIALIST Gender Identity Not on file Sexual [...] R/O COVID-19 07/25/2020 07/25/2020 07/27/2020 5:01 AM LEARNING DEVELOPMENT SPECIALIST R/O COVID-19 09/30/2020 09/30/2020 09/30/2020 7:23 PM LEARNING DEVELOPMENT SPECIALIST documented as of this encounter Care Teams Hosted Services Analyst Relationship Specialty Start Date End Date Radha Cowan MD [address] [phone] PCP - General Family Practice 10/24/20 documented as of this encounter
--- OUTSIDE RECORDS SUMMARY | 2025-06-28 18:19 | XMS_ITS | Encounter Summary ---
Author Organization [facility] Address [address] [place] [address] Care Team Providers Care Grocery Cashier Name Role Phone Radha Cowan MD Primary Care Provider Encounter Details Date Type Department Care Team (Latest Contact Info) Description 01/12/2001 Outpatient Historical [facility] Augusto Nicole Jr., MD [address] [place] [phone] Pure hypercholesterolem (Primary Dx); Chest pain, unspecified; Screening examination for pulmonary tuberculosis Social History Tobacco Use Types Packs/Day Years Used Date Smoking Tobacco: Never Assessed Comments Unknown Sex and Gender Information Value Date Recorded Sex Assigned at Not on file Legal Sex Female 3:33 AM HOME ENERGY RATER Gender Identity Not on file Sexual Orientation [...] R/O COVID-19 07/25/2020 07/25/2020 07/27/2020 5:01 AM HOME ENERGY RATER R/O COVID-19 09/30/2020 09/30/2020 09/30/2020 7:23 PM HOME ENERGY RATER documented as of this encounter Care Teams Grocery Cashier Relationship Specialty Start Date End Date Radha Cowan MD [address] [phone] PCP - General Family Practice 10/24/20 documented as of this encounter
--- OUTSIDE RECORDS SUMMARY | 2025-06-28 18:19 | XMS_ITS | Encounter Summary ---
Author Organization [facility] Address [address] [place] [address] Care Team Providers Care Camp Program Director Name Role Phone Radha Cowan MD Primary Care Provider +[phone]- [phone] Encounter Details Date Type Department Care Team (Latest Contact Info) Description 03/22/2000 Outpatient Historical [facility] Augusto Nicole Jr., MD [address] [place] [phone] Other follow-up examination(V67.59) (Primary Dx); Unspecified hemorrhoids without mention of complication Social History Tobacco Use Types Packs/Day Years Used Date Smoking Tobacco: Never Assessed Comments Unknown Sex and Gender Information Value Date Recorded Sex Assigned at Not on file Legal Sex Female 3:33 AM POCKET GRINDER OPERATOR Gender Identity Not on file Sexual [...] R/O COVID-19 07/25/2020 07/25/2020 07/27/2020 5:01 AM POCKET GRINDER OPERATOR R/O COVID-19 09/30/2020 09/30/2020 09/30/2020 7:23 PM POCKET GRINDER OPERATOR documented as of this encounter Care Teams Camp Program Director Relationship Specialty Start Date End Date Radha Cowan MD [address] [phone] PCP - General Family Practice 10/24/20 documented as of this encounter
--- OUTSIDE RECORDS SUMMARY | 2025-06-28 18:19 | XMS_ITS | Encounter Summary ---
Author Organization [facility] Address [address] [place] [address] Care Team Providers Care Business Professor Name Role Phone Radha Cowan MD Primary Care Provider [phone]- [phone] Encounter Details Date Type Department Care Team (Latest Contact Info) Description 01/06/1999 Outpatient Historical [facility] Augusto Nicole Jr., MD [address] [place] [phone] Insomnia, unspecified (Primary Dx); Depressive disorder, not elsewhere classified Social History Tobacco Use Types Packs/Day Years Used Date Smoking Tobacco: Never Assessed Comments Unknown Sex and Gender Information Value Date Recorded Sex Assigned at Not on file Legal Sex Female 3:33 AM CORRECTION OFFICER HEAD Gender Identity Not on file Sexual [...] R/O COVID-19 07/25/2020 07/25/2020 07/27/2020 5:01 AM CORRECTION OFFICER HEAD R/O COVID-19 09/30/2020 09/30/2020 09/30/2020 7:23 PM CORRECTION OFFICER HEAD documented as of this encounter Care Teams Business Professor Relationship Specialty Start Date End Date Radha Cowan MD [address] [phone] PCP - General Family Practice 10/24/20 documented as of this encounter
--- OUTSIDE RECORDS SUMMARY | 2025-06-28 18:19 | XMS_ITS | Encounter Summary ---
Author Organization [facility] Address [address] [place] [address] Care Team Providers Care Complaint Coordinator Name Role Phone Radha Cowan MD Primary Care Provider Encounter Details Date Type Department Care Team (Latest Contact Info) Description 06/13/1999 Outpatient Historical [facility] Betito Fields NO ADDRESS ON FILE Chest pain, unspecified (Primary Dx) Social History Tobacco Use Types Packs/Day Years Used Date Smoking Tobacco: Never Assessed Comments Unknown Sex and Gender Information Value Date Recorded Sex Assigned at Not on file Legal Sex Female 3:33 AM CHIEF ESTIMATOR Gender Identity Not on file Sexual Orientation [...] COVID-19 07/25/2020 07/25/2020 07/27/2020 5:01 AM CHIEF ESTIMATOR R/O COVID-19 09/30/2020 09/30/2020 09/30/2020 7:23 PM CHIEF ESTIMATOR documented as of this encounter Care Teams Complaint Coordinator Relationship Specialty Start Date End Date Radha Cowan MD [address] [place] [phone] PCP - General Family Practice 10/24/20 documented as of this encounter
--- OUTSIDE RECORDS SUMMARY | 2025-06-28 18:19 | XMS_ITS | Encounter Summary ---
Author Organization [facility] Address [address] [place] [address] Care Team Providers Care Legal Assistant Name Role Phone Radha Cowan MD Primary Care Provider [phone]- [phone] Reason for Referral * Radiology Services (Routine) - Closed Specialty Diagnoses / Procedures Referred By Contac t Referred To Contact Radiology Diagnoses Lower extremity pain, right Procedures US VENOUS DOPPLER LEG RIGHT Raad Bhatt FNP [address] [place] [address] Phone: tel: fax: [facility] [address] [facility] [address] [place] [address] Phone: tel: fax: Referral ID Status Reason Start Date Expiration Date V isits Requested Visits Authorized [id number] Closed [facility] CTS to Schedule (SGF) 06/17/2018 07/18/2019 1 1 Encounter Details Date Type Department Care Team (Latest Contact Info) Description 06/17/2018 Ancillary Orders [facility] Centralized Scheduling [address] [facility] [address] [place] [address] Raad Bhatt FNP [address] [place] [address] Lower extremity pain, right Social History Tobacco Use Types Packs/Day Years Used Date Smoking Tobacco: Every Day Cigarettes 1 20 Smokeless Tobacco: Never Alcohol Use Standard Drinks/Week Comments Yes 0 (1 standard drink = 0.6 oz pur e alcohol) occasional Comments No Sex and Gender Information Value Date Recorded Sex Assigned at Not on file Legal Sex Female 3:33 AM RADIATION PROTECTION ENGINEER Gender Identity Not on file Sexual [...] PM CDT Narrative 06/20/2018 10:03 PM CDT [facility] Radiology Services - Noninvasive Vascular [address] [address] Noninvasive Vascular Lab Venous Exam Unilateral Lower Extremity Duplex Patient: Marli Eli Study ID: US VENOUS DOPPLE Gender: F : 1955 Age: 63 Room: Height: Weight: BSA: Pt status: Outpatient Study Date: 06/17/2018 Study Time: 02:07:05 PM BSA: Ordering: Raad Bhatt Interpreting:Christo Hanson MD, RPVI Mirror Painter: Henok Bailey Summary Impression: No evidence of [...] Procedure Note Christo Hanson MD - 06/20/2018 [facility] Radiology Services - Noninvasive Vascular [address] [address] Noninvasive Vascular Lab Venous Exam Unilateral Lower Extremity Duplex Patient: Marli Eli Study ID: US VENOUS DOPPLE Gender: F : 1955 Age: 63 Room: Height: Weight: BSA: Pt status: Outpatient Study Date: 06/17/2018 Study Time: 02:07:05 PM BSA: Ordering: Raad Bhatt Interpreting:Christo Hanson MD, RPVI Mirror Painter: Henok Bailey Summary Impression: No evidence of [...] Confirmed 06/20/2018 22:03 Raad Bhatt [facility] ORDERABLES Final Resul t documented in this encounter Visit Diagnoses Diagnosis Lower extremity pain, right Lower extremity pain, right documented in this encounter Additional Health Concerns Infection Onset Date Last Indicated Resolved Time R/O COVID-19 05/16/2020 05/16/2020 05/18/2020 12:3 1 AM CDT R/O COVID-19 07/25/2020 07/25/2020 07/27/2020 5:01 AM RADIATION PROTECTION ENGINEER R/O COVID-09/30/2020 09/30/2020 09/30/2020 7:23 PM RADIATION PROTECTION ENGINEER documented as of this encounter Care Teams Legal Assistant Relationship Specialty Start Date End Date Radha Cowan MD [address] [phone] PCP - General Family Practice 10/24/20 documented as of this encounter
--- OUTSIDE RECORDS SUMMARY | 2025-06-28 18:19 | XMS_ITS | Clinical Summary ---
Author Organization [facility] Address [facility] [place] [address] Care Team Providers Care Shear Grinder Operator Name Role Phone Radha Cowan MD Primary Care Provider [phone]- [phone] Allergies Active Allergy Reactions Criticality Noted Date [...] 6 months. 1 Each 0 Active Insulin [place], Disposable, (Lite Touch Insulin Pen [place]) 31 gauge x 5/16 Needle 100 Each by [facility].(Non-Drug; Combo Route) route. Active metFORMIN (GLUCOPHAGE) 1,000 [...] file Legal Sex Female 3:33 AM WAREHOUSE LOADER Gender Identity Not on file Sexual [...] OR WO CAD Routine 10/30/2020 1:26 PM WAREHOUSE LOADER Screening mammogram, encounter for MICROALBUMIN/CREATI NINE RATIO, [...] 93 <100 mg/dL 01/08/2021 9:13 PM CDT [facility] Blood Venipuncture / Unknown 01/08/2021 11:00 AM CDT 01/08/2021 7:53 PM CDT Narrative [facility] - 01/08/2021 9:13 PM [...] ORDERABLES Final Re sult Performing Organization Address [facility]/ZIP Co de Phone Number [facility] CLIA# [id number] [address] [place] [address] * (ABNORMAL) HEMOGLOBIN A1C (01/08/2021 11:00 AM CDT) HEMOGLOBIN A1C 7.5(H) See Comment % 01/08/2021 8:17 PM CDT [facility] EST. AVG GLUCOSE, A1C 169 mg/dL 01/08/2021 8:17 PM CDT [facility] Blood Venipuncture / Unknown 01/08/2021 11:00 AM CDT 01/08/2021 7:53 PM CDT Narrative [facility] - 01/08/2021 8:17 PM CDT HGB A1C INTERPRETATION NORMAL: <5.7% PRE-DIABETES: 5.7 - 6.4% DIABETES: 6.5% OR GREATER Falsely low A1C measurements can occur when: 1. Anemia and/or hemolytic anemia is present. 2. Hemoglobin variants present. 3. Renal failure. 4. Transfusion of blood product in the last 120 days. We recommend ordering a fructosamine test([id number]) to more accurately assess glycemic status if any of the above conditions are present. Juancarlos DELGADO CHEMISTRY ORDERABLES Final Re sult Performing Organization Address [facility]/ZIP Co de Phone Number [facility] CLIA# [id number] [address] [place] [address] * MAMMO SCREEN BILAT W OR WO CAD (10/30/2020 1:26 PM WAREHOUSE LOADER) Anatomical Region Laterality Modality Breast Bilateral Mammography 10/30/2020 1:29 PM WAREHOUSE LOADER Impressions 11/03/2020 11:28 AM WAREHOUSE LOADER : Focal asymmetry in the upper outer quadrant of the left breast for which additional imaging evaluation is recommended. BI-RADS ASSESSMENT: 0 - Incomplete Recommendation: Additional Imaging [id number] Narrative 11/03/2020 11:28 AM WAREHOUSE LOADER EXAM: MAMMO SCREEN BILAT W OR WO [...] Reference Range mg/dL 12/19/2019 8:46 PM CDT [facility] CREATININE, URINE 66.3 29.0 - 226.0 mg/dL 12/19/2019 8:46 PM CDT [facility] Comment:Reference Range vari es with fluid intake and diet. MICROALBUMIN/C REAT RATIO, UR 18.1 <25.0 mg/g 12/19/2019 8:46 PM CDT [facility] Urine URINE SPECIMEN OBTAINED BY CLEAN CATCH PROCEDURE / Unknown Collection / Unknown 12/19/2019 9:05 AM CDT 12/19/2019 7:43 PM CDT Narrative [facility] - 12/19/2019 8:46 PM CDT Condition Microalbumin/Creat ratio Normal Males <17 Normal Females <25 Microalbuminuria Males 17-299 Microalbuminuria Females 25-299 Overt proteinuria >=300 us [place] REAL ESTATE RECRUITER URINE ORDERABLES Final Result [facility]# [id number] [address] [place] [address] from Last 3 Months or Most Recently Relevant to Health Maintenance Insurance BLUE [employer] AND BLUE [facility] Member Subscriber Plan / Payer (Ef fective 2019-Present) Name:Marli Eli Relation to Subscriber:Self Name:Marli Eli Payer ID:Not on file Group ID:[id number] Type:Medicare Managed Care Address: [address] [id number] [place] Advance Directives For more information, please contact: [phone] Documents on File Type Date Recorded Patient [place] Expert Expl anation Advance Directive POA 01/24/2012 7:28 AM Advance Directive Living Will 01/24/2012 Advance Directive POA 01/22/2012 10:32 AM Health Care Directive * Full Code (Latest Code Status on File) Date Activated Date Inactivated Comments 07/18/2015 11:12 PM 07/24/2015 2:39 PM Care Teams Shear Grinder Operator Relationship Specialty Start Date End Date Radha Cowan MD [address] [phone] PCP - General Family Practice 10/24/20
--- OUTSIDE RECORDS SUMMARY | 2025-06-28 18:19 | XMS_ITS | Encounter Summary ---
Author Organization [facility] Address [address] [place] [address] Care Team Providers Care Plate Filler Name Role Phone Radha Cowan MD Primary Care Provider [phone] Encounter Details Date Type Department Care Team (Latest Contact Info) Description 05/29/1999 Outpatient Historical [facility] Augusto Nicole Jr., MD [address] [place] [phone] Other seborrheic keratosis (Primary Dx) Social History Tobacco Use Types Packs/Day Years Used Date Smoking Tobacco: Never Assessed Comments Unknown Sex and Gender Information Value Date Recorded Sex Assigned at Not on file Legal Sex Female 3:33 AM ORDER SELECTOR Gender Identity Not on file Sexual Orientation Not on file documented as of this encounter Plan of Treatment Not on file documented as of this encounter Visit Diagnoses Diagnosis Other seborrheic keratosis- Primary documented in this encounter Additional Health Concerns Infection Onset Date Last Indicated Resolved Time R/O COVID-19 05/16/2020 05/16/2020 05/18/2020 12:3 1 AM CDT R/O COVID-19 07/25/2020 07/25/2020 07/27/2020 5:01 AM ORDER SELECTOR R/O COVID-19 09/30/2020 09/30/2020 09/30/2020 7:23 PM ORDER SELECTOR documented as of this encounter Care Teams Plate Filler Relationship Specialty Start Date End Date Radha Cowan MD [address] [facility] [address] [place] [address] PCP - General Family Practice 10/24/20 documented as of this encounter
--- OUTSIDE RECORDS SUMMARY | 2025-06-28 18:19 | XMS_ITS | Encounter Summary ---
Author Organization [facility] Address [address] [place] [address] Care Team Providers Care Blending Technician Name Role Phone Radha Cowan MD Primary Care Provider Encounter Details Date Type Department Care Team (Latest Contact Info) Description 12/23/1998 Outpatient Historical [facility] Augusto Nicole Jr., MD [address] [place] [phone] Dysthymic disorder (Primary Dx); Abdominal pain, unspecified site Social History Tobacco Use Types Packs/Day Years Used Date Smoking Tobacco: Never Assessed Comments Unknown Sex and Gender Information Value Date Recorded Sex Assigned at Not on file Legal Sex Female 3:33 AM CUSTODIAN MANAGER Gender Identity Not on file Sexual [...] R/O COVID-19 07/25/2020 07/25/2020 07/27/2020 5:01 AM CUSTODIAN MANAGER R/O COVID-19 09/30/2020 09/30/2020 09/30/2020 7:23 PM CUSTODIAN MANAGER documented as of this encounter Care Teams Blending Technician Relationship Specialty Start Date End Date Radha Cowan MD [address] [phone] PCP - General Family Practice 10/24/20 documented as of this encounter
--- OUTSIDE RECORDS SUMMARY | 2025-06-28 18:19 | XMS_ITS | Encounter Summary ---
Author Organization [facility] Address [address] [place] [address] Care Team Providers Care Litigation Partner Name Role Phone Radha Cowan MD Primary Care Provider Encounter Details Date Type Department Care Team (Latest Contact Info) Description 11/19/1999 Outpatient Historical [facility] Augusto Nicole Jr., MD [address] [place] [phone] Other convulsions (Primary Dx); Leiomyoma of uterus, unspecified; Screening for malignant neoplasm of the cervix Social History Tobacco Use Types Packs/Day Years Used Date Smoking Tobacco: Never Assessed Comments Unknown Sex and Gender Information Value Date Recorded Sex Assigned at Not on file Legal Sex Female 3:33 AM LAMP SHADE MAKER Gender Identity Not on file Sexual [...] R/O COVID-19 07/25/2020 07/25/2020 07/27/2020 5:01 AM LAMP SHADE MAKER R/O COVID-19 09/30/2020 09/30/2020 09/30/2020 7:23 PM LAMP SHADE MAKER documented as of this encounter Care Teams Litigation Partner Relationship Specialty Start Date End Date Radha Cowan MD [address] [phone] PCP - General Family Practice 10/24/20 documented as of this encounter
--- OUTSIDE RECORDS SUMMARY | 2025-06-28 18:19 | XMS_ITS | Encounter Summary ---
Author Organization [facility] Address [address] [place] [address] Care Team Providers Care Photographic Aide Name Role Phone Radha Cowan MD Primary Care Provider Encounter Details Date Type Department Care Team (Latest Contact Info) Description 12/16/2000 Outpatient Historical [facility] Augusto Nicole Jr., MD [address] [place] [phone] Headache(784.0) (Primary Dx); Mitral valve disorder Social History Tobacco Use Types Packs/Day Years Used Date Smoking Tobacco: Never Assessed Comments Unknown Sex and Gender Information Value Date Recorded Sex Assigned at Not on file Legal Sex Female 3:33 AM MENTAL HEALTH COUNSELOR Gender Identity Not on file Sexual [...] R/O COVID-19 07/25/2020 07/25/2020 07/27/2020 5:01 AM MENTAL HEALTH COUNSELOR R/O COVID-19 09/30/2020 09/30/2020 09/30/2020 7:23 PM MENTAL HEALTH COUNSELOR documented as of this encounter Care Teams Photographic Aide Relationship Specialty Start Date End Date Radha Cowan MD [address] [phone] PCP - General Family Practice 10/24/20 documented as of this encounter
--- OUTSIDE RECORDS SUMMARY | 2025-06-28 18:19 | XMS_ITS | Encounter Summary ---
Author Organization [facility] Address [address] [place] [address] Care Team Providers Care Recordings Librarian Name Role Phone Radha Cowan MD Primary Care Provider Encounter Details Date Type Department Care Team (Latest Contact Info) Description 06/21/2018 Ancillary Orders [facility] Admitting [address] [place] [address] Raad Bhatt, RUGBY LEAGUE FOOTBALLER [address] [place] [phone] Osteoarthritis of both knees, unspecified osteoarthritis type Social History Tobacco Use Types Packs/Day Years Used Date Smoking Tobacco: Every Day Cigarettes 1 20 Smokeless Tobacco: Never Alcohol Use Standard Drinks/Week Comments Yes 0 (1 standard drink = 0.6 oz pur e alcohol) occasional Comments No Sex and Gender Information Value Date Recorded Sex Assigned at Not on file Legal Sex Female 3:33 AM PAIL TESTER Gender Identity Not on file Sexual [...] R/O COVID-19 07/25/2020 07/25/2020 07/27/2020 5:01 AM PAIL TESTER R/O COVID-19 09/30/2020 09/30/2020 09/30/2020 7:23 PM PAIL TESTER documented as of this encounter Care Teams Recordings Librarian Relationship Specialty Start Date End Date Radha Cowan MD [address] [phone] PCP - General Family Practice 10/24/20 documented as of this encounter
--- OUTSIDE RECORDS SUMMARY | 2025-06-28 18:19 | XMS_ITS | Encounter Summary ---
Author Organization [facility] Address [address] [place] [address] Care Team Providers Care Terrazzo Tile Setter Name Role Phone Radha Cowan MD Primary Care Provider Encounter Details Date Type Department Care Team (Latest Contact Info) Description 03/15/2000 Outpatient Historical [facility] Corey Burkett, Augusto Tang MD [address] [place] [phone] Unspecified urinary incontinence (Primary Dx); Screening for malignant neoplasm of the cervix; Unspecified hemorrhoids without mention of complication; Screening for malignant neoplasm of the rectum Social History Tobacco Use Types Packs/Day Years Used Date Smoking Tobacco: Never Assessed Comments Unknown Sex and Gender Information Value Date Recorded Sex Assigned at Not on file Legal Sex Female 3:33 AM TOOLMAKER Gender Identity Not on file Sexual Orientation [...] R/O COVID-19 07/25/2020 07/25/2020 07/27/2020 5:01 AM TOOLMAKER R/O COVID-19 09/30/2020 09/30/2020 09/30/2020 7:23 PM TOOLMAKER documented as of this encounter Care Teams Terrazzo Tile Setter Relationship Specialty Start Date End Date Radha Cowan MD [address] [phone] PCP - General Family Practice 10/24/20 documented as of this encounter
--- OUTSIDE RECORDS SUMMARY | 2025-06-28 18:19 | XMS_ITS | Encounter Summary ---
Author Organization [facility] Address [address] [place] [address] Care Team Providers Care Area Safety Manager Name Role Phone Radha Cowan MD Primary Care Provider Encounter Details Date Type Department Care Team (Latest Contact Info) Description 07/10/1998 Outpatient Historical [facility] Augusto Nicole Jr., MD [facility] [place] [address] Headache(784.0) (Primary Dx); Depressive disorder, not elsewhere classified Social History Tobacco Use Types Packs/Day Years Used Date Smoking Tobacco: Never Assessed Comments Unknown Sex and Gender Information Value Date Recorded Sex Assigned at Not on file Legal Sex Female 3:33 AM POLISHER IMPLANT Gender Identity Not on file Sexual Orientation [...] R/O COVID-19 07/25/2020 07/25/2020 07/27/2020 5:01 AM POLISHER IMPLANT R/O COVID-19 09/30/2020 09/30/2020 09/30/2020 7:23 PM POLISHER IMPLANT documented as of this encounter Care Teams Area Safety Manager Relationship Specialty Start Date End Date Radha Cowan MD [address] [phone] PCP - General Family Practice 10/24/20 documented as of this encounter
--- OUTSIDE RECORDS SUMMARY | 2025-06-28 18:19 | XMS_ITS | Encounter Summary ---
Author Organization [facility] Address [address] [place] [address] Care Team Providers Care Building Code Inspector Name Role Phone Radha Cowan MD Primary Care Provider [phone]- [phone] Encounter Details Date Type Department Care Team (Latest Contact Info) Description 02/20/1999 Outpatient Historical [facility] Corey Burkett, Augusto Tang MD [address] [place] [address] Vaginitis and vulvovaginitis, unspecified (Primary Dx); Bipolar I disorder, most recent episode (or current) unspecified ([facility]) Social History Tobacco Use Types Packs/Day Years Used Date Smoking Tobacco: Never Assessed Comments Unknown Sex and Gender Information Value Date Recorded Sex Assigned at Not on file Legal Sex Female 3:33 AM HIV/AIDS CARE NURSE Gender Identity Not on file Sexual [...] R/O COVID-19 07/25/2020 07/25/2020 07/27/2020 5:01 AM HIV/AIDS CARE NURSE R/O COVID-19 09/30/2020 09/30/202009/3009/30/2020 7:23 PM HIV/AIDS CARE NURSE documented as of this encounter Care Teams Building Code Inspector Relationship Specialty Start Date End Date Radha Cowan MD [address] [phone] PCP - General Family Practice 10/24/20 documented as of this encounter
--- OUTSIDE RECORDS SUMMARY | 2025-06-28 18:19 | XMS_ITS | Encounter Summary ---
Author Organization [facility] Address [address] [place] [address] [place]n: [place] [address] Care Team Providers Care Professional Housing Consultant Name Role Phone Radha Cowan MD Primary Care Provider [phone]- [phone] Encounter Details Date Type Department Care Team (Late st Contact Info) Description 12/16/2000 Outpatient Historical Augusto Nicole Jr., MD [address] [place] [id number] Social History Tobacco Use Types Packs/Day Years Used Date Smoking Tobacco: Never Assessed Comments Unknown Sex and Gender Information Value Date Recorded Sex Assigned at Not on file Legal Sex Female 3:33 AM NURSE LEADER Gender Identity Not on file Sexual Orientation Not on file documented as of this encounter Plan of Treatment Not on file documented as of this encounter Visit Diagnoses Not on filedocumented in this encounter Additional Health Concerns Infection Onset Date Last Indicated Resolved Time R/O COVID-19 05/16/2020 05/16/2020 05/18/2020 12:3 1 AM CDT R/O COVID-19 07/25/2020 07/25/2020 07/27/2020 5:01 AM NURSE LEADER R/O COVID-19 09/30/2020 09/30/2020 09/30/2020 7:23 PM NURSE LEADER documented as of this encounter Care Teams Professional Housing Consultant Relationship Specialty Start Date End Date Radha Cowan MD [address] [place] [address] PCP - General Family Practice 10/24/20 documented as of this encounter
--- OUTSIDE RECORDS SUMMARY | 2025-06-28 18:19 | XMS_ITS | Encounter Summary ---
Author Organization [facility] Address [address] [place] [address] Care Team Providers Care Operations Officer Name Role Phone Radha Cowan MD Primary Care Provider Encounter Details Date Type Department Care Team (Latest Contact Info) Description 06/21/[address] [facility] Admitting [address] [place] [address] Raad Bhatt, COMMERCIAL SEWING INSTRUCTOR [address] [place] [phone] Osteoarthritis of both knees, unspecified osteoarthritis type Social History Tobacco Use Types Packs/Day Years Used Date Smoking Tobacco: Every Day Cigarettes 1 20 Smokeless Tobacco: Never Alcohol Use Standard Drinks/Week Comments Yes 0 (1 standard drink = 0.6 oz pur e alcohol) occasional Comments No Sex and Gender Information Value Date Recorded Sex Assigned at Not on file Legal Sex Female 3:33 AM GAME TESTER Gender Identity Not on file Sexual [...] medial tibial femoral compartments bilaterally. Raad Bhatt COMMERCIAL SEWING INSTRUCTOR DIAGNOSTIC IMAGING ORDERABL ES Final Result documented in this encounter Visit Diagnoses Diagnosis Osteoarthritis of both knees, unspecified osteoarthritis type Osteoarthritis of both knees, unspecified osteoarthritis type documented in this encounter Additional Health Concerns Infection Onset Date Last Indicated Resolved Time R/O COVID-19 05/16/2020 05/16/2020 05/18/2020 12:3 1 AM CDT R/O COVID-19 07/25/2020 07/25/2020 07/27/2020 5:01 AM GAME TESTER R/O COVID-19 09/30/2020 09/30/2020 09/30/2020 7:23 PM GAME TESTER documented as of this encounter Care Teams Operations Officer Relationship Specialty Start Date End Date Radha Cowan MD [address] [address] PCP - General Family Practice 10/24/20 documented as of this encounter
--- OUTSIDE RECORDS SUMMARY | 2025-06-28 18:19 | XMS_ITS | Encounter Summary ---
Author Organization [facility] Address [address] Charlesn: [place] [address] Care Team Providers Care Administrative Analyst Name Role Phone Radha Cowan MD Primary Care Provider [phone]- [phone] Encounter Details Date Type Department Care Team (Late st Contact Info) Description 12/20/2000 Outpatient Historical Augusto Nicole Jr., MD [address] [place] [phone] Social History Tobacco Use Types Packs/Day Years Used Date Smoking Tobacco: Never Assessed Comments Unknown Sex and Gender Information Value Date Recorded Sex Assigned at Not on file Legal Sex Female 3:33 AM CYLINDER DYER Gender Identity Not on file Sexual Orientation Not on file documented as of this encounter Plan of Treatment Not on file documented as of this encounter Visit Diagnoses Not on filedocumented in this encounter Additional Health Concerns Infection Onset Date Last Indicated Resolved Time R/O COVID-19 05/16/2020 05/16/2020 05/18/2020 12:3 1 AM CDT R/O COVID-19 07/25/2020 07/25/2020 07/27/2020 5:01 AM CYLINDER DYER R/O COVID-19 09/30/2020 09/30/2020 09/30/2020 7:23 PM CYLINDER DYER documented as of this encounter Care Teams Administrative Analyst Relationship Specialty Start Date End Date Radha Cowan MD [address] [place] [phone] PCP - General Family Practice 10/24/20 documented as of this encounter
--- OUTSIDE RECORDS SUMMARY | 2025-06-28 18:19 | XMS_ITS | Encounter Summary ---
Author Organization [facility] Address [address] [place] [address] Care Team Providers Care Barman Name Role Phone Radha Cowan MD Primary Care Provider Encounter Details Date Type Department Care Team (Latest Contact Info) Description 10/15/2017 Ancillary Orders [facility] Admitting [address] [place] [address] Raad Bhatt, DAY CARE ASSISTANT [address] [place] [address] Osteoarthritis of both knees, unspecified [...] on file Legal Sex Female 3:33 AM INJECTION MACHINE OPERATOR Gender Identity Not on file Sexual Orientation Not on file Occupation Industry Job Start Date Job End Date Not on file Not on file Not on file Not on file documented as of this encounter Plan of Treatment Not on file documented as of this encounter Results * XR KNEE 3 VW BILAT (10/15/2017 11:56 AM INJECTION MACHINE OPERATOR) Anatomical Region Laterality Modality Lower Extremity Computed Radiogr aphy 10/15/2017 11:5 6 AM INJECTION MACHINE OPERATOR Impressions 10/15/2017 9:02 PM INJECTION MACHINE OPERATOR IMPRESSION: Mild degenerative changes. [id number] Narrative 10/15/2017 9:02 PM INJECTION MACHINE OPERATOR Exam: XR KNEE 3 VW BILAT Date/Time [...] tissues appear appropriate. IMPRESSION: Mild degenerative changes. [id number] Raad Bhatt DAY CARE ASSISTANT DIAGNOSTIC IMAGING ORDERABL ES Final Result documented in this encounter Visit Diagnoses Diagnosis Osteoarthritis of both knees, unspecified osteoarthritis type Osteoarthritis of both knees, unspecified osteoarthritis type documented in this encounter Additional Health Concerns Infection Onset Date Last Indicated Resolved Time R/O COVID-19 05/16/2020 05/16/2020 05/18/2020 12:3 1 AM CDT R/O COVID-19 07/25/2020 07/25/2020 07/27/2020 5:01 AM INJECTION MACHINE OPERATOR R/O COVID-19 09/30/2020 09/30/2020 09/30/2020 7:23 PM INJECTION MACHINE OPERATOR documented as of this encounter Care Teams Barman Relationship Specialty Start Date End Date Radha Cowan MD [address] [address] PCP - General Family Practice 10/24/20 documented as of this encounter
--- OUTSIDE RECORDS SUMMARY | 2025-06-28 18:19 | XMS_ITS | Encounter Summary ---
Author Organization [facility] Address [address] [place]n: [place] [address] Care Team Providers Care Chef French Name Role Phone Radha Cowan MD Primary Care Provider +1- [phone] Encounter Details Date Type Department Care Team (Late st Contact Info) Description 11/21/1999 Outpatient Historical Augusto Nicole Jr., MD [address] [place] [phone] Social History Tobacco Use Types Packs/Day Years Used Date Smoking Tobacco: Never Assessed Comments Unknown Sex and Gender Information Value Date Recorded Sex Assigned at Not on file Legal Sex Female 3:33 AM INSTRUCTIONAL LEADER Gender Identity Not on file Sexual Orientation Not on file documented as of this encounter Plan of Treatment Not on file documented as of this encounter Visit Diagnoses Not on filedocumented in this encounter Additional Health Concerns Infection Onset Date Last Indicated Resolved Time R/O COVID-19 05/16/2020 05/16/2020 05/18/2020 12:3 1 AM CDT R/O COVID-19 07/25/2020 07/25/2020 07/27/2020 5:01 AM INSTRUCTIONAL LEADER R/O COVID-19 09/30/2020 09/30/2020 09/30/2020 7:23 PM INSTRUCTIONAL LEADER documented as of this encounter Care Teams Chef French Relationship Specialty Start Date End Date Radha Cowan MD [address] [place] [address] PCP - General Family Practice 10/24/20 documented as of this encounter
--- OUTSIDE RECORDS SUMMARY | 2025-06-28 18:19 | XMS_ITS | Encounter Summary ---
Author Organization [facility] Address [address] [place] [address] Care Team Providers Care Barber Name Role Phone Radha Cowan MD Primary Care Provider Encounter Details Date Type Department Care Team (Latest Contact Info) Description 06/26/1999 Outpatient Historical [facility] Corey Burkett, Augusto Tang MD [facility] [place] [address] Esophageal reflux (Primary Dx); Headache(784.0); Insomnia with sleep apnea, unspecified; Need for prophylactic vaccination against Streptococcus pneumoniae (pneumococcus) Social History Tobacco Use Types Packs/Day Years Used Date Smoking Tobacco: Never Assessed Comments Unknown Sex and Gender Information Value Date Recorded Sex Assigned at Not on file Legal Sex Female 3:33 AM POWER BALLAST MACHINE OPERATOR Gender Identity Not on file [...] COVID-19 07/25/2020 07/25/2020 07/27/2020 5:01 AM POWER BALLAST MACHINE OPERATOR R/O COVID-19 09/30/2020 09/30/2020 09/30/2020 7:23 PM POWER BALLAST MACHINE OPERATOR documented as of this encounter Care Teams Barber Relationship Specialty Start Date End Date Radha Cowan MD [address] [address] PCP - General Family Practice 10/24/20 documented as of this encounter
--- OUTSIDE RECORDS SUMMARY | 2025-06-28 18:19 | XMS_ITS | Patient Health Record ---
Author Organization [facility] Address [address] [facility] [address] Care Team Providers Care Test Engineering Manager Name Role Phone Augusto Nicole [phone] Allergies Allergen (clinical drug ingredient) Drug/Non Drug [...] Status W/U Status Risk Notes Problem Scabies (583223848) Scabies (133.0) 12/05 Problem resolved confirmed [id number]- Problem Bipolar affective disorder, currently depressed, mild (365436672) Bipolar I disorder, most recent episode (or current) depressed, mild (296.51) 2009 Problem resolved confirmed [id number]- Problem Morbid obesity (462749856) Morbid obesity (278.01) 2003 Problem resolved confirmed [id number]- Problem Subarachnoid hemorrhage (79448380) Subarachnoid hemorrhage (430) 2010 Problem resolved confirmed [id number]- Problem Acute respiratory failure (57554924) Acute respiratory failure (518.81) 2016 Problem resolved confirmed [id number]- Problem Female stress incontinence (41585653) Female stress incontinence (625.6) 2013 Problem resolved confirmed [id number]- Problem Altered consciousnes s (4273708) Transient alteration of awareness (780.02) 2007 Problem resolved confirmed [id number]- Problem Headache (98964461) Headache (784.0) 04/06 Problem resolved confirmed [id number]- Problem Shortness of breath (068001717) Shortness of breath (786.05) 2007 Problem resolved confirmed [id number]- Problem Wheezing (32127597) Wheezing (786.07) 2010 Problem resolved confirmed [id number]- Problem Cough (32770719) Cough (786.2) 2005 Problem resolved confirmed [id number]- Problem Heartburn (98316647) Heartburn (787.1) 2007 Problem resolved confirmed [id number]- Problem Diarrhea (82517406) Diarrhea (787.91) 2007 Problem resolved confirmed [id number]- Problem Dysuria (10270489) Dysuria (788.1) 2008 Problem resolved confirmed [id number]- Problem Urge incontinence of urine (14496273) Urge incontinence (788.31) 2007 Problem resolved confirmed [id number]- Problem Urinary frequency (466995369) Urinary frequency (788.41) 2011 Problem resolved confirmed [id number]- Problem Gynecological examination normal (744943630933547) Routine gynecological examination (V72.31) 2008 Problem resolved confirmed [id number]- Problem Sleep apnea (47400709) Sleep apnea (780.57) 2014 Problem resolved confirmed [id number]- Problem Rash (823763573) Rash (782.1) 2011 Problem resolved confirmed [id number]- Problem Depression (391671678) Depression (311) 2004 Problem resolved confirmed [id number]- Problem Low back pain (928685601) Low back pain (724.2) 2010 Problem resolved confirmed [id number]- Problem Thoracic back pain (097398189) Upper back pain (724.1) 2008 Problem resolved confirmed [id number]- Problem Headache (19517728) Headache (307.81) 2009 Problem resolved confirmed [id number]- Problem Hypercholesterolemia (27141266) Hypercholesterolemia (272.0) 2003 Problem resolved confirmed [id number]- Problem Congenital heart disease (54379068) Imperfect heart valve (746.89) 2009 Problem resolved confirmed [id number]- Problem Major depression, single episode (33872641) Major depression, single episode, unspecified (296.20) 2003 Problem resolved confirmed [id number]- Problem Tuberculosis screening (445147175) Screening for pulmonary tuberculosis (V74.1) 2010 Problem resolved confirmed [id number]- Problem Shortness of breath (875174750) Shortness of breath (786.09) 2010 Problem resolved confirmed [id number]- Problem Shoulder pain (49835030) Shoulder pain (719.41) 2004 Problem resolved confirmed [id number]- Problem Onychomycosis caused by dermatophyte (300484750) Toe onychomycosis (110.1) 2004 Problem resolved confirmed [id number]- Problem Nosebleed (716854301) Nosebleed (784.7) 0 2008 Problem resolved confirmed [id number]- Problem Allergic rhinitis caused by pollen (26123076) Allergies (477.0) 2014 Problem resolved confirmed [id number]- Problem Bruising (463600994) Bruising (782.7) 2008 Problem resolved confirmed [id number]- Problem Chest pain (18163025) Chest pain (786.50) 2007 Problem resolved confirmed [id number]- Problem Acute exacerbation o f chronic obstructive airways disease (426656113) Chronic bronchitis, obstructive, with (acute) exacerbation (491.21) 2016 Problem resolved confirmed [id number]- Problem Disorder of hematopoietic system (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) Other abnormal findings on blood examination (790.99) 2015 Problem resolved confirmed [id number]- Problem Disorder of hematopoietic system (50001897) Other abnormal laboratory result on blood (790.99) 2007 Problem resolved confirmed [id number]- Problem Pleural pain (0233408) Pleural pain (786.52) 2011 Problem resolved confirmed [id number]- Problem Sore throat (221554311) Sore Throat (462) 2007 Problem resolved confirmed [id number]- Problem Tobacco abuse (4698404866) Tobacco abuse (305.1) 2003 Problem resolved confirmed [id number]- Problem Acute exacerbation o f chronic obstructive airways disease (085364613) Acute exacerbation of chronic obstructive pulmonary disease (COPD) (491.21) 2013 Problem resolved confirmed [id number]- Problem Poisoning caused by antidepressant (90525407) Antidepressant medication overdose (969.0) 2007 Problem resolved confirmed [id number]- Problem Tobacco user (893459899) Cigarette smoking (305.1) 2009 Problem resolved confirmed [id number]- Problem Depressive disorder (72020621) Depressive disorder not elsewhere classified (311) 2009 Problem resolved confirmed [id number]- Problem Gastroesophageal reflux disease (321045933) Gastroesophageal reflux disease (530.81) 2014 Problem resolved confirmed [id number]- Problem Generalized abdomina l pain (024230857) Generalized abdominal pain (789.07) 2013 Problem resolved confirmed [id number]- Problem Solitary nodule of lung (867573023) Lung nodule (518.89) 2013 Problem resolved confirmed [id number]- Problem Lymphadenopathy (88010618) Lymphadenopathy (785.6) 2015 Problem resolved confirmed [id number]- Problem Family history of malignant neoplasm of ovary (656622505) Family history of ovarian cancer (V16.41) 2007 Problem resolved confirmed [id number]- Problem Mixed hyperlipidemia (881234098) Hypercholesterolemia with hypertriglyceridemia (272.2) 2005 Problem resolved confirmed [id number]- Problem Hypertension (94753536) Hypertension (401.1) 2010 Active confirmed [id number]- Problem Insomnia (803036169) Insomnia (307.41) 2008 Problem resolved confirmed [id number]- Problem Pain in limb (44276448) Leg pain (729.5) 2006 Problem resolved confirmed [id number]- Problem Mitral valve regurgitation (89694110) Mitral valve regurgitation (424.0) 2004 Problem resolved confirmed [id number]- Problem Peripheral neuropath y (624725061) Peripheral neuropathy (356.9) 2015 Active confirmed [id number]- Problem Precordial pain (06120397) Precordial chest pain (786.51) 2004 Problem resolved confirmed Mane-[id number]- Problem Sinus tachycardia (86626762) Sinus tachycardia (427.89) 2008 Problem resolved confirmed Mane-[id number] [id number]- Problem Sleep apnea (72245001) ABIGAIL (780.57) 2013 Problem resolved confirmed Mane-[id number] [id number]- Problem Serous otitis media (00051471) Serous otitis media (381.4) 2006 Problem resolved confirmed Mane-[id number] [id number]- Problem Tobacco user (902208340) Tobacco abuse affecting health (305.1) 2012 Problem resolved confirmed Mane-[id number] [id number]- Problem Needs influenza immunization (536236695) Vaccination against other viral diseases, Influenza (V04.81) 2009 Problem resolved confirmed Mane-98 [id number]- Problem Candidiasis (83746459) Yeast infection (112.9) 2015 Problem resolved confirmed Mane-98 [id number]- Problem Anxiety depression (194805596) Anxiety with depression (300.4) 2007 Problem resolved confirmed Mane-[id number] [id number]- Problem Common migraine (29922189) Common migraine (346.10) 2009 Problem resolved confirmed Mane-[id number] [id number]- Problem Obstructive sleep apnea (39737002) Obstructive sleep apnea (780.57) 2009 Problem resolved confirmed Mane-98 5911- Problem Nondependent alcohol abuse, episodic (123730693) Alcohol abuse, episodic (305.02) 2010 Problem resolved confirmed Mane-98 [id number]- Problem Chronic obstructive pulmonary disease (44177287) Chronic obstructive pulmonary disease (496) 2008 Problem resolved confirmed Mane-98 [id number]- Problem Migraine with aura (4647765) Classic migraine (346.00) 2007 Problem resolved confirmed Mane-[id number] [id number]- Problem Constipation (40622084) Constipation (564.01) 2009 Problem resolved confirmed Mane-98 [id number]- Problem Depression (697962795) Depression (296.20) 2003 Problem resolved confirmed Mane-98 5911- Problem Exposure to coug h and potentially infected aerosol from TB patient (V15.85) 2009 Problem resolved confirmed Mane-98 [id number]- Problem Knee pain (0163665422) Knee pain (719.46) 2015 Problem resolved confirmed Mane-98 5911- Problem Urinary tract infection (15175891) Urinary tract infection (595.0) 2008 Problem resolved confirmed Mane-98 5911- Problem Elbow pain (23183526) Elbow pain (719.42) 2012 Problem resolved confirmed Mane-98 5911- Problem Heel pain (1175881) Heel pain (729.5) 2007 Problem resolved confirmed Mane-98 5911- Problem Pneumococcal pneumonia (516686446) Acute lobar pneumonia (481) 2008 Problem resolved confirmed Mane-98 5911- Problem Chronic insomnia (458452432) Chronic insomnia (307.42) 2012 Problem resolved confirmed Mane-98 5911- Problem COPD - Chronic obstructive pulmonary disease (40917974) COPD (496) 2012 Problem resolved confirmed Mane-98 5911- Problem Tinea pedis (5663229) Tinea pedis (110.4) 2013 Problem resolved confirmed Mane-98 5911- Problem Acute upper respiratory infection (37624170) Upper respiratory illness (465.8) 2009 Problem resolved confirmed Mane-98 5911- Problem Vaginal discharge (744419512) Vaginal discharge (616.10) 2009 Problem resolved confirmed Mane-98 [id number]- Problem Epigastric pain (03595751) Epigastric abdominal pain (789.06) 2004 Problem resolved confirmed Mane-98 5911- Problem Insect bite (528604305) Insect bite (919.4) 2011 Problem resolved confirmed Mane-98 5911- Problem Shoulder joint pain (133805100) Joint pain, shoulder region (719.41) 2004 Problem resolved confirmed Mane-98 5911- Problem Mild major depression, single episode (76217292) Major depression, single episode, mild (296.21) 2011 Problem resolved confirmed Mane-98 [id number]- Problem Coronary arteriosclerosis (disorder) (27598110) Coronary artery disease, of [place] coronary artery (414.01) 2004 Problem resolved confirmed Mane-[id number] [id number]- Problem Type II diabetes mellitus without complication (834213778) NIDDM (250.00) 2005 Problem resolved confirmed Mane-98 5911- Problem Pedal edema (127496573) Pedal edema (782.3) 2015 Problem resolved confirmed Mane-98 5911- Problem Possible STD exposure (V15.85) 2010 Problem resolved confirmed Mane-98 5911- Problem Diabetes mellitus type 2 (disorder) (15020253) Type 2 diabetes (250.00) 2005 Problem resolved confirmed Mane-98 5911- Problem Screening for malignant neoplasm of breast (522040861) Screening for breast cancer, unspecified (V76.10) 2015 Problem resolved confirmed [id number]- Plan Of Treatment No Information Medical (General) History Surgical History Surgery Date(Month/Year) AppendectomyCholecystectomy: 1979; Tubal Ligation: 1986;
--- OUTSIDE RECORDS SUMMARY | 2025-06-28 18:19 | XMS_ITS | Encounter Summary ---
Author Organization [facility] Address [address] [place] [address] Care Team Providers Care Career Information Specialist Name Role Phone Radha Cowan MD Primary Care Provider +1- [phone] Encounter Details Date Type Department Care Team (Latest Contact Info) Description 06/23/1999 Outpatient Historical [facility] Bet[place] Fields NO ADDRESS ON FILE [...] file Legal Sex Female 3:33 AM DIRECTOR COLLEGE Gender Identity Not on file Sexual Orientation [...] COVID-19 07/25/2020 07/25/2020 07/27/2020 5:01 AM DIRECTOR COLLEGE R/O COVID-19 09/30/2020 09/30/2020 09/30/2020 7:23 PM DIRECTOR COLLEGE documented as of this encounter Care Teams Career Information Specialist Relationship Specialty Start Date End Date Radha Cowan MD [address] [address] PCP - General Family Practice 10/24/20 documented as of this encounter
--- OUTSIDE RECORDS SUMMARY | 2025-06-28 18:19 | XMS_ITS | Encounter Summary ---
Author Organization [facility] Address [address] [place] [address] Care Team Providers Care Derrick Boat Lever Operator Name Role Phone Radha Cowan MD Primary Care Provider [phone] Encounter Details Date Type Department Care Team (Latest Contact Info) Description 11/28/1998 Outpatient Historical [facility] Augusto Nicole Jr., MD [address] [place] [phone] Unspecified essential hypertension (Primary Dx); Unspecified thrombosed hemorrhoids; Obesity, unspecified Social History Tobacco Use Types Packs/Day Years Used Date Smoking Tobacco: Never Assessed Comments Unknown Sex and Gender Information Value Date Recorded Sex Assigned at Not on file Legal Sex Female 3:33 AM RAIL CAR MECHANIC Gender Identity Not on file Sexual [...] R/O COVID-19 07/25/2020 07/25/2020 07/27/2020 5:01 AM RAIL CAR MECHANIC R/O COVID-19 09/30/2020 09/30/2020 09/30/2020 7:23 PM RAIL CAR MECHANIC documented as of this encounter Care Teams Derrick Boat Lever Operator Relationship Specialty Start Date End Date Radha Cowan MD [address] [phone] PCP - General Family Practice 10/24/20 documented as of this encounter
--- OUTSIDE RECORDS SUMMARY | 2025-06-28 18:19 | XMS_ITS | Clinical Summary ---
Author Organization [facility] Address [address] [place] [address] Care Team Providers Care Stock Unloader Name Role Phone Unavailable Primary Care Provider [...] 90 Tablet 0 10/28/19 21 Active Insulin Phoenix, Disposable, 31 gauge x 5/16 Needle 100 Each by [facility].(Non-Drug; Combo Route) route. 04/09/20 20 Active nebulizer [...] deliveryIndicati ons:Respiratory failure with hypoxia, unspecified chronicity ([facility]) Home Oxygen Concentrator yes at 3 [...] CDT - 05/22/2025 2:28 PM CDT Emergency [facility] Emergency Medicine [address] [place] [address] Armando Santizo, DO Minor head injury without [...] on file Legal Sex Female 1:48 PM FRUIT RAISER Gender Identity Not on file Sexual Orientation [...] history exists Medical Devices Implanted Type Area Assistant Press Operator Device Identifier Shelf Expiration Date Model / Serial / Lot Stent Istent Trbclr Micro-Bypss Lt [id number] - [id number] Implanted:Qty: 1 on 09/20/2024 by Low Marx MD at [facility] Eye Left: Eye [employer] 03/05/2026 [id number] / [id number] / Stent Istent Trbclr Micro-Bypss Rt [id number] - [id number] Implanted:Qty: 1 on 12/20/2024 by Low Marx MD at [facility] Eye Right: Eye [employer] 04/05/2027 [id number] / [id number] / [id number] Lens Iol Tecnis Eyhance 19.5 [id number] - [id number] Implanted:Qty: 1 on 09/20/2024 by Low Marx MD at [facility] Lens Left: Eye [employer] 02/06/2027 [id number] / [id number] / Lens Iol Murphy iRcardo 19.0 [id number] - [id number] Implanted:Qty: 1 on 12/20/2024 by Low Marx MD at [facility] Lens Right: Eye [employer] 04/25/2026 [id number] / [id number] / Procedures Procedure Name Priority Date/Time Associated [...] OR WO CAD Routine 10/30/2020 1:26 PM FRUIT RAISER Screening mammogram, encounter for MICROALBUMIN/CREATIN INE RATIO, [...] A1C 7.6(H) <5.7 % of total Hgb [facility] Comment: For someone without known diabetes, a [...] of diabetes for children. Test Performed at: [facility] [address] [place] [address] Jean Carlos Yi D.O., MPH Blood 05/06/2021 9:36 AM CDT 05/07/2021 4:34 AM CDT Juancarlos DELGADO CHEMISTRY ORDERABLES Final Re sult Performing Organization Address [facility] Co de Phone Number [facility] [address] [place] [address] * (ABNORMAL) LIPID PANEL (05/06/2021 9:36 AM CDT) CHOLESTEROL 193 <200 mg/dL [facility] HDL 44(L) > OR = 50 mg/dL [facility] TRIGLYCERIDE 369(H) <150 mg/dL [facility] Comment: If a non-fasting specimen was collected, consider repeat triglyceride testing on a fasting specimen if clinically indicated. Radhika et al. J. of Clin. Lipidol. 2015;9:129-169. LDL CALCULATED 100(H) mg/dL (calc) [facility] Comment: Reference range: <100 Desirable range <100 mg/dL for primary prevention; <70 mg/dL for patients with CHD or diabetic patients with > or = 2 CHD risk factors. LDL-C is now calculated using the Miky-Patricia calculation, which is a validated novel method providing better accuracy than the Friedewald equation in the estimation of LDL-C. Miky SS et al. SABRINA. 2013;310(19): 9633-7896 (http://education.Shapeways/faq/BIJ880) CHOL/HDL RATIO 4.4 <5.0 (calc) [facility] TOTAL NON-HDL CHOL(LDL+VLDL) 149(H) <130 mg/dL (calc) [facility] Comment: For patients with diabetes plus 1 major ASCVD risk factor, treating to a non-HDL-C goal of <100 mg/dL (LDL-C of <70 mg/dL) is considered a therapeutic option. Test Performed at: [facility] [address] [place] [address] Jean Carlos Yi D.O., MPH Blood 05/06/2021 9:36 AM CDT 05/07/2021 4:34 AM CDT Juancarlos DELGADO CHEMISTRY ORDERABLES Final Re sult [facility] [address] [place] [address] * MAMMO SCREEN BILAT W OR WO CAD (10/30/2020 1:26 PM FRUIT RAISER) Anatomical Region Laterality Modality Breast Bilateral Other Impressions 11/03/2020 11:28 AM FRUIT RAISER : Focal asymmetry in the upper outer quadrant of the left breast for which additional imaging evaluation is recommended. BI-RADS ASSESSMENT: 0 - Incomplete Recommendation: Additional Imaging [id number] Narrative 11/03/2020 11:28 AM FRUIT RAISER EXAM: MAMMO SCREEN BILAT W OR WO [...] ASSESSMENT: 0 - Incomplete Recommendation: Additional Imaging [id number] us Juancarlos DELGADO MAMMO ORDERABLES Final Result * MICROALBUMIN/CREATININE RATIO, RANDOM UR (12/19/2019 9:05 AM CDT) MICROALBUMIN, URINE 1.2 No Reference Range mg/dL 12/19/2019 8:[address] [facility] CREATININE, URINE 66.3 29.0 - 226.0 mg/dL 12/19/2019 8:[address] [facility] Comment:Reference Range vari es with fluid intake and diet. MICROALBUMIN/C REAT RATIO, UR 18.1 <25.0 mg/g 12/19/2019 8:[address] [facility] Urine URINE SPECIMEN OBTAINED BY CLEAN CATCH PROCEDURE / Unknown Collection / Unknown 12/19/2019 9:05 AM CDT 12/19/2019 7:[address] [facility] - 12/19/2019 8:46 PM CDT Condition Microalbumin/Creat ratio Normal Males <17 Normal Females <25 Microalbuminuria Males 17-299 Microalbuminuria Females 25-299 Overt proteinuria >=300 [place] NP URINE ORDERABLES Final Result [facility] CLIA# [id number] [address] [place] [address] * (ABNORMAL) ENDOSCOPY, COLON, SCREENING (01/11/2019) Abstract Provider GI PROCEDURE ORDERABLES Final Result from Last 3 Months or Most Recently Relevant to Health Maintenance Insurance [place]ICAID [place] Member Subscriber Plan / Payer (Ef fective 2021-Present) Name:Alcira Marli Sam Relation to Subscriber:Self Name:Alcira Marli Sam Payer ID:Not on file Group ID:Not on file Type:Medicaid Address: [address] DUAL ADVANTAGE O [facility] Advance Directives For more information, please contact: [phone] * Full Code (Latest Code Status on File) Date Activated Date Inactivated Comments 12/20/2024 9:49 AM 12/20/2024 1:54 PM * Full Code Date Activated Date Inactivated Comments 09/20/2024 11:42 AM 09/20/2024 3:30 PM
--- OUTSIDE RECORDS SUMMARY | 2025-06-28 18:19 | XMS_ITS | Encounter Summary ---
Author Organization [facility] Address [address] [place] [address] Care Team Providers Care Dietary Service Aide Name Role Phone Radha Cowan MD Primary Care Provider Encounter Details Date Type Department Care Team (Latest Contact Info) Description 12/06/1998 Outpatient Historical [facility] Augusto Nicole Jr., MD [address] [place] [phone] Dietary surveil/weight loss counselor (Primary Dx) Social History Tobacco Use Types Packs/Day Years Used Date Smoking Tobacco: Never Assessed Comments Unknown Sex and Gender Information Value Date Recorded Sex Assigned at Not on file Legal Sex Female 3:33 AM PEOPLESOFT ANALYST Gender Identity Not on file Sexual Orientation Not on file documented as of this encounter Plan of Treatment Not on file documented as of this encounter Visit Diagnoses Diagnosis Dietary surveil/weight loss counselor- Primary Dietary surveillance and counseling documented in this encounter Additional Health Concerns Infection Onset Date Last Indicated Resolved Time R/O COVID-19 05/16/2020 05/16/2020 05/18/2020 12:3 1 AM CDT R/O COVID-19 07/25/2020 07/25/2020 07/27/2020 5:01 AM PEOPLESOFT ANALYST R/O COVID-19 09/30/2020 09/30/2020 09/30/2020 7:23 PM PEOPLESOFT ANALYST documented as of this encounter Care Teams Dietary Service Aide Relationship Specialty Start Date End Date Radha Cowan MD [address] [facility] [address] [place] [address] PCP - General Family Practice 10/24/20 documented as of this encounter
--- OUTSIDE RECORDS SUMMARY | 2025-06-28 18:20 | XMS_ITS | Encounter Summary ---
Author Organization [facility] Address [address] [place] [address] Care Team Providers Care Antisqueak Filler Name Role Phone Radha Cowan MD Primary Care Provider Encounter Details Date Type Department Care Team (Latest Contact Info) Description 04/27/2001 Outpatient Historical [facility] Augusto Nicole Jr., MD [address] [place] [phone] Chest pain, unspecified (Primary Dx); Generalized anxiety disorder Social History Tobacco Use Types Packs/Day Years Used Date Smoking Tobacco: Never Assessed Comments Unknown Sex and Gender Information Value Date Recorded Sex Assigned at Not on file Legal Sex Female 3:33 AM DEVELOPMENTAL SPECIALIST Gender Identity Not on file Sexual [...] R/O COVID-19 07/25/2020 07/25/2020 07/27/2020 5:01 AM DEVELOPMENTAL SPECIALIST R/O COVID-19 09/30/2020 09/30/2020 09/30/2020 7:23 PM DEVELOPMENTAL SPECIALIST documented as of this encounter Care Teams Antisqueak Filler Relationship Specialty Start Date End Date Radha Cowan MD [address] [facility] [address] [place] [address] PCP - General Family Practice 10/24/20 documented as of this encounter
--- OUTSIDE RECORDS SUMMARY | 2025-06-28 18:20 | XMS_ITS | Encounter Summary ---
Author Organization [facility] Address [address] [place] [address] Care Team Providers Care Aviation Manager Name Role Phone Radha Cowan MD Primary Care Provider Encounter Details Date Type Department Care Team (Latest Contact Info) Description 07/05/2001 Outpatient Historical [facility] Augusto Nicole Jr., MD [address] [place] [phone] VACCINE FOR INFLUENZA (Primary Dx) Social History Tobacco Use Types Packs/Day Years Used Date Smoking Tobacco: Never Assessed Comments Unknown Sex and Gender Information Value Date Recorded Sex Assigned at Not on file Legal Sex Female 3:33 AM CLOCK SMITH Gender Identity Not on file Sexual Orientation [...] R/O COVID-19 07/25/2020 07/25/2020 07/27/2020 5:01 AM CLOCK SMITH R/O COVID-19 09/30/2020 09/30/2020 09/30/2020 7:23 PM CLOCK SMITH documented as of this encounter Care Teams Aviation Manager Relationship Specialty Start Date End Date Radha Cowan MD [address] [facility] [address] [place] [address] PCP - General Family Practice 10/24/20 documented as of this encounter
--- OUTSIDE RECORDS SUMMARY | 2025-06-28 18:20 | XMS_ITS | Encounter Summary ---
Author Organization [facility] Address [address] [place] [address] Care Team Providers Care Pole Peeling Machine Operator Name Role Phone Radha Cowan MD Primary Care Provider Encounter Details Date Type Department Care Team (Latest Contact Info) Description 09/01/2001 Outpatient Historical [facility] Augusto Nicole Jr., MD [address] [place] [phone] ABSENCE OF MENSTRUATION (Primary Dx); HYPERLIPIDEMIA NEC/NOS; ALLERGIC RHINITIS NOS Social History Tobacco Use Types Packs/Day Years Used Date Smoking Tobacco: Never Assessed Comments Unknown Sex and Gender Information Value Date Recorded Sex Assigned at Not on file Legal Sex Female 3:33 AM LOADER HELPER Gender Identity Not on file Sexual [...] R/O COVID-19 07/25/2020 07/25/2020 07/27/2020 5:01 AM LOADER HELPER R/O COVID-19 09/30/2020 09/30/2020 09/30/2020 7:23 PM LOADER HELPER documented as of this encounter Care Teams Pole Peeling Machine Operator Relationship Specialty Start Date End Date Radha Cowan MD [address] [phone] PCP - General Family Practice 10/24/20 documented as of this encounter
--- OUTSIDE RECORDS SUMMARY | 2025-06-28 18:20 | XMS_ITS | Encounter Summary ---
Author Organization [facility] Address [address] [place] [address] Care Team Providers Care Bridge Leverman Name Role Phone Radha Cowan MD Primary Care Provider [phone]- [phone] Encounter Details Date Type Department Care Team (Latest Contact Info) Description 03/24/2001 Outpatient Historical [facility] Corey Burkett, Augusto Tang MD [facility] [place] [address] Hip, thigh, leg, and ankle, [...] on file Legal Sex Female 3:33 AM FOUNTAIN WAITRESS/WAITER Gender Identity Not on file Sexual Orientation [...] R/O COVID-19 07/25/2020 07/25/2020 07/27/2020 5:01 AM FOUNTAIN WAITRESS/WAITER R/O COVID-19 09/30/2020 09/30/2020 09/30/2020 7:23 PM FOUNTAIN WAITRESS/WAITER documented as of this encounter Care Teams Bridge Leverman Relationship Specialty Start Date End Date Radha Cowan MD [address] [phone] PCP - General Family Practice 10/24/20 documented as of this encounter
--- OUTSIDE RECORDS SUMMARY | 2025-06-28 18:20 | XMS_ITS | Encounter Summary ---
Author Organization [facility] Address [address] [place] [address] Care Team Providers Care Marketing Executive Name Role Phone Radha Cowan MD Primary Care Provider Encounter Details Date Type Department Care Team (Latest Contact Info) Description 02/18/2001 Outpatient Historical [facility] Augusto Nicole Jr., MD [address] [place] [phone] Myalgia and myositis, unspecified (Primary Dx); Depressive disorder, not elsewhere classified Social History Tobacco Use Types Packs/Day Years Used Date Smoking Tobacco: Never Assessed Comments Unknown Sex and Gender Information Value Date Recorded Sex Assigned at Not on file Legal Sex Female 3:33 AM DINING ROOM TABLES SET UP ATTENDANT Gender Identity Not on file Sexual [...] R/O COVID-19 07/25/2020 07/25/2020 07/27/2020 5:01 AM DINING ROOM TABLES SET UP ATTENDANT R/O COVID-19 09/30/2020 09/30/2020 09/30/2020 7:23 PM DINING ROOM TABLES SET UP ATTENDANT documented as of this encounter Care Teams Marketing Executive Relationship Specialty Start Date End Date Radha Cowan MD [address] [phone] PCP - General Family Practice 10/24/20 documented as of this encounter
--- OUTSIDE RECORDS SUMMARY | 2025-06-28 18:20 | XMS_ITS | Encounter Summary ---
Author Organization [facility] Address [address] [place] [address] Care Team Providers Care Student Support Advisor Name Role Phone Radha Cowan MD Primary Care Provider [phone]- [phone] Encounter Details Date Type Department Care Team (Latest Contact Info) Description 12/28/2001 Outpatient Historical [facility] Augusto Nicole Jr., MD [address] [place] [phone] ABN BLOOD CHEMISTRY NEC (Primary Dx) Social History Tobacco Use Types Packs/Day Years Used Date Smoking Tobacco: Never Assessed Comments Unknown Sex and Gender Information Value Date Recorded Sex Assigned at Not on file Legal Sex Female 3:33 AM CAR LUBRICATOR Gender Identity Not on file Sexual Orientation [...] R/O COVID-19 07/25/2020 07/25/2020 07/27/2020 5:01 AM CAR LUBRICATOR R/O COVID-19 09/30/2020 09/30/2020 09/30/2020 7:23 PM CAR LUBRICATOR documented as of this encounter Care Teams Student Support Advisor Relationship Specialty Start Date End Date Radha Cowan MD [address] [place] [address] PCP - General Family Practice 10/24/20 documented as of this encounter
--- OUTSIDE RECORDS SUMMARY | 2025-06-28 18:20 | XMS_ITS | Encounter Summary ---
Author Organization [facility] Address [address] [place] [address] Care Team Providers Care Primary Clinician Name Role Phone Radha Cowan MD Primary Care Provider [phone]- [phone] Encounter Details Date Type Department Care Team (Latest Contact Info) Description 02/16/2002 Outpatient Historical [facility] Augusto Nicole Jr., MD [address] [place] [phone] ANEMIA NOS (Primary Dx) Social History Tobacco Use Types Packs/Day Years Used Date Smoking Tobacco: Never Assessed Comments Unknown Sex and Gender Information Value Date Recorded Sex Assigned at Not on file Legal Sex Female 3:33 AM MANUFACTURING MAINTENANCE TECHNICIAN Gender Identity Not on file Sexual Orientation Not on file documented as of this encounter Plan of Treatment Not on file documented as of this encounter Visit Diagnoses Diagnosis Anemia, unspecified- Primary documented in this encounter Additional Health Concerns Infection Onset Date Last Indicated Resolved Time R/O COVID-19 05/16/2020 05/16/2020 05/18/2020 12:3 1 AM CDT R/O COVID-19 07/25/2020 07/25/2020 07/27/2020 5:01 AM MANUFACTURING MAINTENANCE TECHNICIAN R/O COVID-19 09/30/2020 09/30/2020 09/30/2020 7:23 PM MANUFACTURING MAINTENANCE TECHNICIAN documented as of this encounter Care Teams Primary Clinician Relationship Specialty Start Date End Date Radha Cowan MD [address] [place] [phone] PCP - General Family Practice 10/24/20 documented as of this encounter
--- OUTSIDE RECORDS SUMMARY | 2025-06-28 18:20 | XMS_ITS | Encounter Summary ---
Author Organization [facility] Address [address] [place] [address] Care Team Providers Care Cable Television Technician Name Role Phone Radha Cowan MD Primary Care Provider [phone]- [phone] Encounter Details Date Type Department Care Team (Latest Contact Info) Description 12/05/2001 Outpatient Historical [facility] Augusto Nicole Jr., MD [address] [place] [phone] HYPERLIPIDEMIA NEC/NOS (Primary Dx) Social History Tobacco Use Types Packs/Day Years Used Date Smoking Tobacco: Never Assessed Comments Unknown Sex and Gender Information Value Date Recorded Sex Assigned at Not on file Legal Sex Female 3:33 AM CUSTOMER ORDERS CLERK Gender Identity Not on file Sexual [...] R/O COVID-19 07/25/2020 07/25/2020 07/27/2020 5:01 AM CUSTOMER ORDERS CLERK R/O COVID-19 09/30/2020 09/30/2020 09/30/2020 7:23 PM CUSTOMER ORDERS CLERK documented as of this encounter Care Teams Cable Television Technician Relationship Specialty Start Date End Date Radha Cowan MD [address] [place] [address] PCP - General Family Practice 10/24/20 documented as of this encounter
--- OUTSIDE RECORDS SUMMARY | 2025-06-28 18:20 | XMS_ITS | Encounter Summary ---
Author Organization [facility] Address [address] [facility] [address] [place]n: [place] [address] Care Team Providers Care Molecular Physicist Name Role Phone Radha Cowan MD Primary Care Provider [phone]- [phone] Encounter Details Date Type Department Care Team (Late st Contact Info) Description 03/17/2000 Outpatient Historical Augusto Nicole Jr., MD [address] [place] [phone] Social History Tobacco Use Types Packs/Day Years Used Date Smoking Tobacco: Never Assessed Comments Unknown Sex and Gender Information Value Date Recorded Sex Assigned at Not on file Legal Sex Female 3:33 AM DEVULCANIZER CHARGER Gender Identity Not on file Sexual Orientation Not on file documented as of this encounter Plan of Treatment Not on file documented as of this encounter Visit Diagnoses Not on filedocumented in this encounter Additional Health Concerns Infection Onset Date Last Indicated Resolved Time R/O COVID-19 05/16/2020 05/16/2020 05/18/2020 12:3 1 AM CDT R/O COVID-19 07/25/2020 07/25/2020 07/27/2020 5:01 AM DEVULCANIZER CHARGER R/O COVID-19 09/30/2020 09/30/2020 09/30/2020 7:23 PM DEVULCANIZER CHARGER documented as of this encounter Care Teams Molecular Physicist Relationship Specialty Start Date End Date Radha Cowan MD [address] [facility] [address] [place] [phone] PCP - General Family Practice 10/24/20 documented as of this encounter
--- OUTSIDE RECORDS SUMMARY | 2025-06-28 18:20 | XMS_ITS | Encounter Summary ---
Author Organization [facility] Address [address] [place] [address] Care Team Providers Care Flat Polisher Name Role Phone Radha Cowan MD Primary Care Provider [phone] Encounter Details Date Type Department Care Team (Latest Contact Info) Description 01/12/2003 Outpatient Historical [facility] [place] [address] [place] [address] Mirza Amezcua MD NO ADDRESS ON FILE COUGH (Primary Dx) Social History Tobacco Use Types Packs/Day Years Used Date Smoking Tobacco: Never Assessed Comments Unknown Sex and Gender Information Value Date Recorded Sex Assigned at Not on file Legal Sex Female 3:33 AM SOCIAL SCIENCE RESEARCH ASSISTANT Gender Identity Not on [...] COVID-19 07/25/2020 07/25/2020 07/27/2020 5:01 AM SOCIAL SCIENCE RESEARCH ASSISTANT R/O COVID-19 09/30/2020 09/30/2020 09/30/2020 7:23 PM SOCIAL SCIENCE RESEARCH ASSISTANT documented as of this encounter Care Teams Flat Polisher Relationship Specialty Start Date End Date Radha Cowan MD [address] [facility] [place] [phone] PCP - General Family Practice 10/24/20 documented as of this encounter
--- OUTSIDE RECORDS SUMMARY | 2025-06-28 18:20 | XMS_ITS | Encounter Summary ---
Author Organization [facility] Address [address] [place] [address] Care Team Providers Care Kit Planner Name Role Phone Radha Cowan MD Primary Care Provider Encounter Details Date Type Department Care Team (Latest Contact Info) Description 06/10/2001 Outpatient Historical [facility] Augusto Nicole Jr., MD [address] [place] [phone] Chronic airway obstruction, not elsewhere classified (CMS/HCC) (Primary Dx); Pure hypercholesterolem Social History Tobacco Use Types Packs/Day Years Used Date Smoking Tobacco: Never Assessed Comments Unknown Sex and Gender Information Value Date Recorded Sex Assigned at Not on file Legal Sex Female 3:33 AM CLIP RIVETER Gender Identity Not on file Sexual Orientation [...] R/O COVID-19 07/25/2020 07/25/2020 07/27/2020 5:01 AM CLIP RIVETER R/O COVID-19 09/30/2020 09/30/2020 09/30/2020 7:23 PM CLIP RIVETER documented as of this encounter Care Teams Kit Planner Relationship Specialty Start Date End Date Radha Cowan MD [address] [address] PCP - General Family Practice 10/24/20 documented as of this encounter
--- OUTSIDE RECORDS SUMMARY | 2025-06-28 18:20 | XMS_ITS | Encounter Summary ---
Author Organization [facility] Address [address] [place] [address] Care Team Providers Care Multimedia Author Name Role Phone Radha Cowan MD Primary Care Provider [phone]- [phone] Encounter Details Date Type Department Care Team (Latest Contact Info) Description 12/14/2002 Outpatient Historical [facility] Augusto Nicole Jr., MD [address] [place] [phone] DIABETES UNCOMPL ADULT-TYPE II ([facility]) (Primary Dx); ACUTE SINUSITIS NOS; PULMONARY EOSINOPHILIA Social History Tobacco Use Types Packs/Day Years Used Date Smoking Tobacco: Never Assessed Comments Unknown Sex and Gender Information Value Date Recorded Sex Assigned at Not on file Legal Sex Female 3:33 AM JACKER Gender Identity Not on file Sexual [...] R/O COVID-19 07/25/2020 07/25/2020 07/27/2020 5:01 AM JACKER R/O COVID-19 09/30/2020 09/30/2020 09/30/2020 7:23 PM JACKER documented as of this encounter Care Teams Multimedia Author Relationship Specialty Start Date End Date Radha Cowan MD [address] [address] PCP - General Family Practice 10/24/20 documented as of this encounter
--- OUTSIDE RECORDS SUMMARY | 2025-06-28 18:20 | XMS_ITS | Encounter Summary ---
Author Organization [facility] Address [address] Charlesn: [place] [address] Care Team Providers Care Cut And Print Machine Operator Name Role Phone Radha Cowan MD Primary Care Provider [phone]- [phone] Encounter Details Date Type Department Care Team (Late st Contact Info) Description 03/15/2002 Outpatient Historical Augusto Nicole Jr., MD [address] [place] [phone] Social History Tobacco Use Types Packs/Day Years Used Date Smoking Tobacco: Never Assessed Comments Unknown Sex and Gender Information Value Date Recorded Sex Assigned at Not on file Legal Sex Female 3:33 AM QUALITY ASSOCIATE Gender Identity Not on file Sexual Orientation Not on file documented as of this encounter Plan of Treatment Not on file documented as of this encounter Visit Diagnoses Not on filedocumented in this encounter Additional Health Concerns Infection Onset Date Last Indicated Resolved Time R/O COVID-19 05/16/2020 05/16/2020 05/18/2020 12:3 1 AM CDT R/O COVID-19 07/25/2020 07/25/2020 07/27/2020 5:01 AM QUALITY ASSOCIATE R/O COVID-19 09/30/2020 09/30/2020 09/30/2020 7:23 PM QUALITY ASSOCIATE documented as of this encounter Care Teams Cut And Print Machine Operator Relationship Specialty Start Date End Date Radha Cowan MD [address] [place] [phone] PCP - General Family Practice 10/24/20 documented as of this encounter
--- OUTSIDE RECORDS SUMMARY | 2025-06-28 18:20 | XMS_ITS | Encounter Summary ---
Author Organization [facility] Address [address] Charlesn: [place] [address] Care Team Providers Care Manager Cafe Name Role Phone Radha Cowan MD Primary Care Provider [phone]- [phone] Encounter Details Date Type Department Care Team (Late st Contact Info) Description 12/05/2001 Outpatient Historical Augusto Nicole Jr., MD [address] [place] [phone] Social History Tobacco Use Types Packs/Day Years Used Date Smoking Tobacco: Never Assessed Comments Unknown Sex and Gender Information Value Date Recorded Sex Assigned at Not on file Legal Sex Female 3:33 AM ANTHROPOLOGICAL LINGUIST Gender Identity Not on file Sexual Orientation Not on file documented as of this encounter Plan of Treatment Not on file documented as of this encounter Visit Diagnoses Not on filedocumented in this encounter Additional Health Concerns Infection Onset Date Last Indicated Resolved Time R/O COVID-19 05/16/2020 05/16/2020 05/18/2020 12:3 1 AM CDT R/O COVID-19 07/25/2020 07/25/2020 07/27/2020 5:01 AM ANTHROPOLOGICAL LINGUIST R/O COVID-19 09/30/2020 09/30/2020 09/30/2020 7:23 PM ANTHROPOLOGICAL LINGUIST documented as of this encounter Care Teams Manager Cafe Relationship Specialty Start Date End Date Radha Cowan MD [address] [place] [phone] PCP - General Family Practice 10/24/20 documented as of this encounter
--- OUTSIDE RECORDS SUMMARY | 2025-06-28 18:20 | XMS_ITS | Encounter Summary ---
Author Organization [facility] Address [address] [place] [address] Care Team Providers Care Fine Hairer Name Role Phone Radha Cowan MD Primary Care Provider Encounter Details Date Type Department Care Team (Latest Contact Info) Description 04/24/2002 Outpatient Historical [facility] ToroHema MD [address] [address] SURGERY FOLLOWUP, UNSPEC (Primary Dx) Social History Tobacco Use Types Packs/Day Years Used Date Smoking Tobacco: Never Assessed Comments Unknown Sex and Gender Information Value Date Recorded Sex Assigned at Not on file Legal Sex Female 3:33 AM COLLEGE HIRE Gender Identity Not on file Sexual Orientation [...] R/O COVID-19 07/25/2020 07/25/2020 07/27/2020 5:01 AM COLLEGE HIRE R/O COVID-19 09/30/2020 09/30/2020 09/30/2020 7:23 PM COLLEGE HIRE documented as of this encounter Care Teams Fine Hairer Relationship Specialty Start Date End Date Radha Cowan MD [address] [address] PCP - General Family Practice 10/24/20 documented as of this encounter
--- OUTSIDE RECORDS SUMMARY | 2025-06-28 18:20 | XMS_ITS | Encounter Summary ---
Author Organization [facility] Address [address] [place] [address] Care Team Providers Care Traffic Survey Technician Name Role Phone Radha Cowan MD Primary Care Provider [phone] Encounter Details Date Type Department Care Team (Late st Contact Info) Description 06/20/2003 Outpatient Historical [facility] Augusto Nicole Jr., MD [address] [place] [phone] PNEUMONIA, ORGANISM NOS (Primary Dx) Social History Tobacco Use Types Packs/Day Years Used Date Smoking Tobacco: Never Assessed Comments Unknown Sex and Gender Information Value Date Recorded Sex Assigned at Not on file Legal Sex Female 3:33 AM CIRCULATION DIRECTOR Gender Identity Not on file Sexual [...] R/O COVID-19 07/25/2020 07/25/2020 07/27/2020 5:01 AM CIRCULATION DIRECTOR R/O COVID-19 09/30/2020 09/30/2020 09/30/2020 7:23 PM CIRCULATION DIRECTOR documented as of this encounter Care Teams Traffic Survey Technician Relationship Specialty Start Date End Date Radha Cowan MD [address] [phone] PCP - General Family Practice 10/24/20 documented as of this encounter
--- OUTSIDE RECORDS SUMMARY | 2025-06-28 18:20 | XMS_ITS | Encounter Summary ---
Author Organization [facility] Address [address] [place] [address] Care Team Providers Care Equipment Service Engineer Name Role Phone Radha Cowan MD Primary Care Provider Encounter Details Date Type Department Care Team (Latest Contact Info) Description 08/11/2002 Outpatient Historical [facility] Corey Burkett, Augusto Tang MD [address] [place] [phone] DIABETES UNCOMPL ADULT-TYPE II (CMS/HCC) (Primary Dx); DERMATOPHYTOSIS OF NAIL; ANEMIA NOS; VACCINE FOR INFLUENZA Social History Tobacco Use Types Packs/Day Years Used Date Smoking Tobacco: Never Assessed Comments Unknown Sex and Gender Information Value Date Recorded Sex Assigned at Not on file Legal Sex Female 3:33 AM POST FRAMER Gender Identity Not on file Sexual Orientation [...] R/O COVID-19 07/25/2020 07/25/2020 07/27/2020 5:01 AM POST FRAMER R/O COVID-19 09/30/2020 09/30/2020 09/30/2020 7:23 PM POST FRAMER documented as of this encounter Care Teams Equipment Service Engineer Relationship Specialty Start Date End Date Radha Cowan MD [address] [address] PCP - General Family Practice 10/24/20 documented as of this encounter
--- OUTSIDE RECORDS SUMMARY | 2025-06-28 18:20 | XMS_ITS | Clinical Summary ---
Author Organization [facility] Address [address] [place] [address] Care Team Providers Care Print Support Specialist Name Role Phone Radha Xiong MD Primary Care Provider +1 -[phone] Allergies Active Allergy Reactions Criticality Noted Date [...] 1 tablet (25 mcg total) by mouth radio disc jockey before breakfast 01/05/20 24 Active losartan (COZAAR) [...] vaccine 65+ Completed 023, 05/31/2018, 09/05/2012 Insurance * Guarantor: Marli Eli Account Type Relation to Patient Date of Phone Billing Address Personal/Family Self [address] [place] [id number] [place] [employer] MED[employer] HMO PPO Advance Directives For more information, please contact: [phone] * Full Code (Latest Code Status on File) Date Activated Date Inactivated Comments 03/22/2024 10:33 PM 03/29/2024 5:09 PM Care Teams Print Support Specialist Relationship Specialty Start Date End Date Radha Xiong MD [address] [place] [address] PCP - General Family Medicine 03/22/24
--- OUTSIDE RECORDS SUMMARY | 2025-06-28 18:20 | XMS_ITS | Encounter Summary ---
Author Organization [facility] Address [address] [place] [address] Care Team Providers Care Field Clerk Name Role Phone Radah Cowan MD Primary Care Provider Encounter Details Date Type Department Care Team (Late st Contact Info) Description 10/31/2004 Outpatient Historical [facility] Alfonso Carranza MD [address] [address] Social History Tobacco Use Types Packs/Day Years Used Date Smoking Tobacco: Never Assessed Comments Unknown Sex and Gender Information Value Date Recorded Sex Assigned at Not on file Legal Sex Female 3:[address] Gender Identity Not on file Sexual Orientation Not on file documented as of this encounter Plan of Treatment Not on file documented as of this encounter Visit Diagnoses Not on filedocumented in this encounter Additional Health Concerns Infection Onset Date Last Indicated Resolved Time R/O COVID-19 05/16/2020 05/16/2020 05/18/2020 12:3 1 AM CDT R/O COVID-19 07/25/2020 07/25/2020 07/27/2020 5:[address] R/O COVID-19 09/30/2020 09/30/2020 09/30/2020 7:[address] documented as of this encounter Care Teams Field Clerk Relationship Specialty Start Date End Date Radha Cowan MD [address] [place] [phone] PCP - General Family Practice 10/24/20 documented as of this encounter
--- OUTSIDE RECORDS SUMMARY | 2025-06-28 18:20 | XMS_ITS | Encounter Summary ---
Author Organization [facility] Address [address] [place] [address] Care Team Providers Care Hydramatic Specialist Name Role Phone Radha Cowan MD Primary Care Provider [phone]- [phone] Encounter Details Date Type Department Care Team (Latest Contact Info) Description 05/10/2002 Outpatient Historical [facility] Corey Burkett, Augusto Tang MD [address] [place] [phone] ANEMIA NOS (Primary Dx); EDEMA; DIABETES UNCOMPL ADULT-TYPE II (CMS/HCC); CHRONIC AIRWAY OBSTRUCTION NEC ([facility]) Social History Tobacco Use Types Packs/Day Years Used Date Smoking Tobacco: Never Assessed Comments Unknown Sex and Gender Information Value Date Recorded Sex Assigned at Not on file Legal Sex Female 3:33 AM HAND POTTER Gender Identity Not on file Sexual Orientation [...] COVID-19 07/25/2020 07/25/2020 07/27/2020 5:01 AM HAND POTTER R/O COVID-19 09/30/2020 09/30/2020 09/30/2020 7:23 PM HAND POTTER documented as of this encounter Care Teams Hydramatic Specialist Relationship Specialty Start Date End Date Radha Cowan MD [address] [address] PCP - General Family Practice 10/24/20 documented as of this encounter
--- OUTSIDE RECORDS SUMMARY | 2025-06-28 18:20 | XMS_ITS | Encounter Summary ---
Author Organization [facility] Address [address] [place] [address] Care Team Providers Care Adult Day Care Worker Name Role Phone Radha Cowan MD Primary Care Provider Encounter Details Date Type Department Care Team (Latest Contact Info) Description 07/20/2001 Outpatient Historical [facility] Fadi Hampton MD [address] [place] [address] CHRONIC RHINITIS (Primary Dx); TRACHEA/BRONCHUS DIS NEC; OBESITY NOS; TOBACCO USE DISORDER Social History Tobacco Use Types Packs/Day Years Used Date Smoking Tobacco: Never Assessed Comments Unknown Sex and Gender Information Value Date Recorded Sex Assigned at Not on file Legal Sex Female 3:33 AM MACHINIST BRAKE Gender Identity Not on file Sexual Orientation [...] COVID-19 07/25/2020 07/25/2020 07/27/2020 5:0 1 AM MACHINIST BRAKE R/O COVID-19 09/30/2020 09/30/2020 09/30/2020 7:23 PM MACHINIST BRAKE documented as of this encounter Care Teams Adult Day Care Worker Relationship Specialty Start Date End Date Radha Cowan MD [address] [phone] PCP - General Family Practice 10/24/20 documented as of this encounter
--- OUTSIDE RECORDS SUMMARY | 2025-06-28 18:20 | XMS_ITS | Encounter Summary ---
Author Organization [facility] Address [address] [place] [address] Care Team Providers Care Scallop Shucker Name Role Phone Radha Cowan MD Primary Care Provider Encounter Details Date Type Department Care Team (Latest Contact Info) Description 03/07/2003 Outpatient Historical [facility] Corey Burkett, Augusto Tang MD [address] [place] [phone] CHRONIC AIRWAY OBSTRUCTION NEC ([facility]) (Primary Dx); BRONCHITIS NOS; EDEMA; Pure hypercholesterolem Social History Tobacco Use Types Packs/Day Years Used Date Smoking Tobacco: Never Assessed Comments Unknown Sex and Gender Information Value Date Recorded Sex Assigned at Not on file Legal Sex Female 3:33 AM CHEMIST PHYSICAL Gender Identity Not on file Sexual Orientation [...] R/O COVID-19 07/25/2020 07/25/2020 07/27/2020 5:01 AM CHEMIST PHYSICAL R/O COVID-19 09/30/2020 09/30/2020 09/30/2020 7:23 PM CHEMIST PHYSICAL documented as of this encounter Care Teams Scallop Shucker Relationship Specialty Start Date End Date Radha Cowan MD [address] [address] PCP - General Family Practice 10/24/20 documented as of this encounter
--- OUTSIDE RECORDS SUMMARY | 2025-06-28 18:20 | XMS_ITS | Encounter Summary ---
Author Organization [facility] Address [address] [place]: [place] [address] Care Team Providers Care Re Examiner Name Role Phone Radha Cowan MD Primary Care Provider [phone]- [phone] Encounter Details Date Type Department Care Team (Late st Contact Info) Description 10/13/2001 Outpatient Historical Augusto Nicole Jr., MD [address] [place] [phone] Social History Tobacco Use Types Packs/Day Years Used Date Smoking Tobacco: Never Assessed Comments Unknown Sex and Gender Information Value Date Recorded Sex Assigned at Not on file Legal Sex Female 3:33 AM ALUMNI RELATIONS OFFICER Gender Identity Not on file Sexual Orientation Not on file documented as of this encounter Plan of Treatment Not on file documented as of this encounter Visit Diagnoses Not on filedocumented in this encounter Additional Health Concerns Infection Onset Date Last Indicated Resolved Time R/O COVID-19 05/16/2020 05/16/2020 05/18/2020 12:3 1 AM CDT R/O COVID-19 07/25/2020 07/25/2020 07/27/2020 5:01 AM ALUMNI RELATIONS OFFICER R/O COVID-19 09/30/2020 09/30/2020 09/30/2020 7:23 PM ALUMNI RELATIONS OFFICER documented as of this encounter Care Teams Re Examiner Relationship Specialty Start Date End Date Radha Cowan MD [address] [place] [phone] PCP - General Family Practice 10/24/20 documented as of this encounter
--- OUTSIDE RECORDS SUMMARY | 2025-06-28 18:20 | XMS_ITS | Encounter Summary ---
Author Organization [facility] Address [address] [place] [address] Care Team Providers Care Delivery Driver Assistant Name Role Phone Radha Cowan MD Primary Care Provider [phone] Encounter Details Date Type Department Care Team (Latest Contact Info) Description 11/02/2002 Outpatient Historical [facility] Corey Burkett, Augusto Tang MD [address] [place] [phone] DIABETES UNCOMPL ADULT-TYPE II (CMS/HCC) (Primary Dx); Pure hypercholesterolem; LUMBAGO; ABNORMAL FINDINGS-LUNG FIELD Social History Tobacco Use Types Packs/Day Years Used Date Smoking Tobacco: Never Assessed Comments Unknown Sex and Gender Information Value Date Recorded Sex Assigned at Not on file Legal Sex Female 3:33 AM SALT OPERATOR Gender Identity Not on file Sexual [...] R/O COVID-19 07/25/2020 07/25/2020 07/27/2020 5:01 AM SALT OPERATOR R/O COVID-19 09/30/2020 09/30/2020 09/30/2020 7:23 PM SALT OPERATOR documented as of this encounter Care Teams Delivery Driver Assistant Relationship Specialty Start Date End Date Radha Cowan MD [address] [phone] PCP - General Family Practice 10/24/20 documented as of this encounter
--- OUTSIDE RECORDS SUMMARY | 2025-06-28 18:20 | XMS_ITS | Encounter Summary ---
Author Organization [facility] Address [address] [place] [address] Care Team Providers Care Senior Pastor Name Role Phone Radha Cowan MD Primary Care Provider [phone] Encounter Details Date Type Department Care Team (Latest Contact Info) Description 12/30/2000 Outpatient Historical [facility] Augusto Nicole Jr., MD [address] [place] [phone] Elevated sediment rate (Primary Dx); Osteoarthrosis, unspecified whether generalized or localized, unspecified site Social History Tobacco Use Types Packs/Day Years Used Date Smoking Tobacco: Never Assessed Comments Unknown Sex and Gender Information Value Date Recorded Sex Assigned at Not on file Legal Sex Female 3:33 AM ROUGHER OPERATOR Gender Identity Not on file Sexual [...] R/O COVID-19 07/25/2020 07/25/2020 07/27/2020 5:01 AM ROUGHER OPERATOR R/O COVID-19 09/30/2020 09/30/2020 09/30/2020 7:23 PM ROUGHER OPERATOR documented as of this encounter Care Teams Senior Pastor Relationship Specialty Start Date End Date Radha Cowan MD [address] [phone] PCP - General Family Practice 10/24/20 documented as of this encounter
--- OUTSIDE RECORDS SUMMARY | 2025-06-28 18:20 | XMS_ITS | Encounter Summary ---
Author Organization [facility] Address [address] Charlesn: [place] [address] Care Team Providers Care Watch Parts Inspector Name Role Phone Radha Cowan MD Primary Care Provider [phone]- [phone] Encounter Details Date Type Department Care Team (Late st Contact Info) Description 05/19/2002 Outpatient Historical Augusto Nicole Jr., MD [address] [place] [phone] Social History Tobacco Use Types Packs/Day Years Used Date Smoking Tobacco: Never Assessed Comments Unknown Sex and Gender Information Value Date Recorded Sex Assigned at Not on file Legal Sex Female 3:33 AM PROTECTIVE SIGNAL REPAIRER HELPER Gender Identity Not on file Sexual Orientation Not on file documented as of this encounter Plan of Treatment Not on file documented as of this encounter Visit Diagnoses Not on filedocumented in this encounter Additional Health Concerns Infection Onset Date Last Indicated Resolved Time R/O COVID-19 05/16/2020 05/16/2020 05/18/2020 12:3 1 AM CDT R/O COVID-19 07/25/2020 07/25/2020 07/27/2020 5:01 AM PROTECTIVE SIGNAL REPAIRER HELPER R/O COVID-19 09/30/2020 09/30/2020 09/30/2020 7:23 PM PROTECTIVE SIGNAL REPAIRER HELPER documented as of this encounter Care Teams Watch Parts Inspector Relationship Specialty Start Date End Date Radha Cowan MD [address] [place] [phone] PCP - General Family Practice 10/24/20 documented as of this encounter
--- OUTSIDE RECORDS SUMMARY | 2025-06-28 18:20 | XMS_ITS | Encounter Summary ---
Author Organization [facility] Address [address] [place] [address] Care Team Providers Care Metal Miner Blasting Name Role Phone Radha Cowan MD Primary Care Provider Encounter Details Date Type Department Care Team (Latest Contact Info) Description 04/19/2003 Outpatient Historical [facility] Augusto Nicole Jr., MD [address] [place] [phone] HYPERTENSION NOS (Primary Dx) Social History Tobacco Use Types Packs/Day Years Used Date Smoking Tobacco: Never Assessed Comments Unknown Sex and Gender Information Value Date Recorded Sex Assigned at Not on file Legal Sex Female 3:33 AM ORTHOPEDIC PHYSICIAN ASSISTANT Gender Identity Not on file Sexual [...] R/O COVID-19 07/25/2020 07/25/2020 07/27/2020 5:01 AM ORTHOPEDIC PHYSICIAN ASSISTANT R/O COVID-19 09/30/2020 09/30/2020 09/30/2020 7:23 PM ORTHOPEDIC PHYSICIAN ASSISTANT documented as of this encounter Care Teams Metal Miner Blasting Relationship Specialty Start Date End Date Radha Cowan MD [address] [facility] [address] [place] [phone] PCP - General Family Practice 10/24/20 documented as of this encounter
--- OUTSIDE RECORDS SUMMARY | 2025-06-28 18:20 | XMS_ITS | Encounter Summary ---
Author Organization [facility] Address [address] [place] [address] Care Team Providers Care Area Field Worker Name Role Phone Radha Cowan MD Primary Care Provider Encounter Details Date Type Department Care Team (Latest Contact Info) Description 10/13/2001 Outpatient Historical [facility] Augusto Nicole Jr., MD [address] [place] [phone] HYPERLIPIDEMIA NEC/NOS (Primary Dx); OBESITY NOS; DEPRESSIVE DISORDER NEC Social History Tobacco Use Types Packs/Day Years Used Date Smoking Tobacco: Never Assessed Comments Unknown Sex and Gender Information Value Date Recorded Sex Assigned at Not on file Legal Sex Female 3:33 AM LEATHER DRIER Gender Identity Not on file Sexual [...] R/O COVID-19 07/25/2020 07/25/2020 07/27/2020 5:01 AM LEATHER DRIER R/O COVID-19 09/30/2020 09/30/2020 09/30/2020 7:23 PM LEATHER DRIER documented as of this encounter Care Teams Area Field Worker Relationship Specialty Start Date End Date Radha Cowan MD [address] [phone] PCP - General Family Practice 10/24/20 documented as of this encounter
--- OUTSIDE RECORDS SUMMARY | 2025-06-28 18:20 | XMS_ITS | Encounter Summary ---
Author Organization [facility] Address [address] [place] [address] Care Team Providers Care Agricultural Sciences Professor Name Role Phone Radha Cowan MD Primary Care Provider Encounter Details Date Type Department Care Team (Latest Contact Info) Description 03/23/2002 Outpatient Historical [facility] Augusto Nicole Jr., MD [address] [place] [phone] ABDOMINAL PAIN UNSPEC SITE (Primary Dx); IRON DEFIC ANEMIA NOS; GENERALIZED ANXIETY DIS Social History Tobacco Use Types Packs/Day Years Used Date Smoking Tobacco: Never Assessed Comments Unknown Sex and Gender Information Value Date Recorded Sex Assigned at Not on file Legal Sex Female 3:33 AM AUTOMOBILE CARPETS MOLDER Gender Identity Not on file Sexual [...] R/O COVID-19 07/25/2020 07/25/2020 07/27/2020 5:01 AM AUTOMOBILE CARPETS MOLDER R/O COVID-19 09/30/2020 09/30/2020 09/30/2020 7:23 PM AUTOMOBILE CARPETS MOLDER documented as of this encounter Care Teams Agricultural Sciences Professor Relationship Specialty Start Date End Date Radha Cowan MD [address] [phone] PCP - General Family Practice 10/24/20 documented as of this encounter
--- OUTSIDE RECORDS SUMMARY | 2025-06-28 18:20 | XMS_ITS | Encounter Summary ---
Author Organization [facility] Address [address] Charlesn: [place] [address] Care Team Providers Care Senior Integration Developer Name Role Phone Radha Cowan MD Primary Care Provider +1- [phone] Encounter Details Date Type Department Care Team (Late st Contact Info) Description 12/28/2001 Outpatient Historical Augusto Nicole Jr., MD [address] [place] [phone] Social History Tobacco Use Types Packs/Day Years Used Date Smoking Tobacco: Never Assessed Comments Unknown Sex and Gender Information Value Date Recorded Sex Assigned at Not on file Legal Sex Female 3:33 AM CONTENT SPECIALIST Gender Identity Not on file Sexual Orientation Not on file documented as of this encounter Plan of Treatment Not on file documented as of this encounter Visit Diagnoses Not on filedocumented in this encounter Additional Health Concerns Infection Onset Date Last Indicated Resolved Time R/O COVID-19 05/16/2020 05/16/2020 05/18/2020 12:3 1 AM CDT R/O COVID-19 07/25/2020 07/25/2020 07/27/2020 5:01 AM CONTENT SPECIALIST R/O COVID-19 09/30/2020 09/30/2020 09/30/2020 7:23 PM CONTENT SPECIALIST documented as of this encounter Care Teams Senior Integration Developer Relationship Specialty Start Date End Date Radha Cowan MD [address] [place] [phone] PCP - General Family Practice 10/24/20 documented as of this encounter
--- OUTSIDE RECORDS SUMMARY | 2025-06-28 18:20 | XMS_ITS | Encounter Summary ---
Author Organization [facility] Address [address] [place] [address] Care Team Providers Care Epoxy Fabrication Supervisor Name Role Phone Radha Cowan MD Primary Care Provider Encounter Details Date Type Department Care Team (Latest Contact Info) Description 08/11/2002 Outpatient Historical [facility] Augusto Nicole Jr., MD [address] [place] [phone] HYPERLIPIDEMIA NEC/NOS (Primary Dx) Social History Tobacco Use Types Packs/Day Years Used Date Smoking Tobacco: Never Assessed Comments Unknown Sex and Gender Information Value Date Recorded Sex Assigned at Not on file Legal Sex Female 3:33 AM MOTOR AND CHASSIS INSPECTOR Gender Identity Not on file Sexual [...] R/O COVID-19 07/25/2020 07/25/2020 07/27/2020 5:01 AM MOTOR AND CHASSIS INSPECTOR R/O COVID-19 09/30/2020 09/30/2020 09/30/2020 7:23 PM MOTOR AND CHASSIS INSPECTOR documented as of this encounter Care Teams Epoxy Fabrication Supervisor Relationship Specialty Start Date End Date Radha Cowan MD [address] [facility] [address] [place] [address] PCP - General Family Practice 10/24/20 documented as of this encounter
--- OUTSIDE RECORDS SUMMARY | 2025-06-28 18:20 | XMS_ITS | Encounter Summary ---
Author Organization [facility] Address [address] [place] [address] Care Team Providers Care Billet Recorder Name Role Phone Radha Cowan MD Primary Care Provider +1- [phone] Encounter Details Date Type Department Care Team (Latest Contact Info) Description 11/06/2020 Ancillary Orders [facility] [address] [facility] [address] [place] [address] Juancarlos Sapp PA NO ADDRESS [...] on file Legal Sex Female 3:33 AM FACILITY PLANNER Gender Identity Not on file Sexual Orientation Not on file Occupation Industry Job Start Date Job End Date Not on file Not on file Not on file Not on file COVID-19 Exposure Response Date Recorded In the last month, have you been in contact with someone who was confirmed or suspected to have Coronavirus / COVID-19? No / Unsure 11/04/2020 8:57 AM FACILITY PLANNER documented as of this encounter Plan of Treatment Not on file documented as of this encounter Visit Diagnoses Diagnosis Inconclusive mammography Inconclusive mammogram documented in this encounter Care Teams Billet Recorder Relationship Specialty Start Date End Date Radha Cowan MD [address] [place] [address] PCP - General Family Practice 10/24/20 documented as of this encounter
--- OUTSIDE RECORDS SUMMARY | 2025-06-28 18:20 | XMS_ITS | Encounter Summary ---
Author Organization [facility] Address [address] [place] [address] Care Team Providers Care Coiled Tubing Operator Name Role Phone Radha Cowan MD Primary Care Provider +1- [phone] Encounter Details Date Type Department Care Team (Latest Contact Info) Description 04/19/2003 Outpatient Historical [facility] Corey Burkett, Augusto Tang MD [address] [place] [address] DIABETES UNCOMPL ADULT-TYPE II (CMS/HCC) (Primary Dx); OPEN WOUND KNEE/LEG/ANKLE; HYPERTENSION NOS; HYPERLIPIDEMIA NEC/NOS Social History Tobacco Use Types Packs/Day Years Used Date Smoking Tobacco: Never Assessed Comments Unknown Sex and Gender Information Value Date Recorded Sex Assigned at Not on file Legal Sex Female 3:33 AM FUEL ATTENDANT Gender Identity Not on file Sexual [...] R/O COVID-19 07/25/2020 07/25/2020 07/27/2020 5:01 AM FUEL ATTENDANT R/O COVID-19 09/30/2020 09/30/2020 09/30/2020 7:23 PM FUEL ATTENDANT documented as of this encounter Care Teams Coiled Tubing Operator Relationship Specialty Start Date End Date Radha Cowan MD [address] [phone] PCP - General Family Practice 10/24/20 documented as of this encounter
--- OUTSIDE RECORDS SUMMARY | 2025-06-28 18:20 | XMS_ITS | Encounter Summary ---
Author Organization [facility] Address [address] Charlesn: [place] [address] Care Team Providers Care Dye Beck Reel Operator Name Role Phone Radha Cowan MD Primary Care Provider +1- [phone] Encounter Details Date Type Department Care Team (Late st Contact Info) Description 01/12/2001 Outpatient Historical Augusto Nicole Jr., MD [address] [place] [phone] Social History Tobacco Use Types Packs/Day Years Used Date Smoking Tobacco: Never Assessed Comments Unknown Sex and Gender Information Value Date Recorded Sex Assigned at Not on file Legal Sex Female 3:33 AM EXERCISE TEACHER Gender Identity Not on file Sexual Orientation Not on file documented as of this encounter Plan of Treatment Not on file documented as of this encounter Visit Diagnoses Not on filedocumented in this encounter Additional Health Concerns Infection Onset Date Last Indicated Resolved Time R/O COVID-19 05/16/2020 05/16/2020 05/18/2020 12:3 1 AM CDT R/O COVID-19 07/25/2020 07/25/2020 07/27/2020 5:01 AM EXERCISE TEACHER R/O COVID-19 09/30/2020 09/30/2020 09/30/2020 7:23 PM EXERCISE TEACHER documented as of this encounter Care Teams Dye Beck Reel Operator Relationship Specialty Start Date End Date Radha Cowan MD [address] [facility] [address] [place] [phone] PCP - General Family Practice 10/24/20 documented as of this encounter
--- OUTSIDE RECORDS SUMMARY | 2025-06-28 18:20 | XMS_ITS | Encounter Summary ---
Author Organization [facility] Address [address] [place] [address] Care Team Providers Care Dietary Internship Name Role Phone Radha Cowan MD Primary Care Provider +1- [phone] Encounter Details Date Type Department Care Team (Latest Contact Info) Description 06/20/2003 Outpatient Historical [facility] Corey Burkett, Augusto Tang MD [address] [place] [phone] DIABETES UNCOMPL ADULT-TYPE II ([facility]) (Primary Dx); ACUTE BRONCHIOLITIS/RESP SYNC VIRUS; TRACHEA/BRONCHUS DIS NEC; ASTHMA UNSPECIFIED Social History Tobacco Use Types Packs/Day Years Used Date Smoking Tobacco: Never Assessed Comments Unknown Sex and Gender Information Value Date Recorded Sex Assigned at Not on file Legal Sex Female 3:33 AM DYE HOUSE WHEEL OPERATOR Gender Identity Not on file Sexual [...] COVID-19 07/25/2020 07/25/2020 07/27/2020 5:01 AM DYE HOUSE WHEEL OPERATOR R/O COVID-19 09/30/2020 09/30/2020 09/30/2020 7:23 PM DYE HOUSE WHEEL OPERATOR documented as of this encounter Care Teams Dietary Internship Relationship Specialty Start Date End Date Radha Cowan MD [address] [phone] PCP - General Family Practice 10/24/20 documented as of this encounter
--- OUTSIDE RECORDS SUMMARY | 2025-06-28 18:20 | XMS_ITS | Encounter Summary ---
Author Organization [facility] Address [address] [place] [address] Care Team Providers Care Digestion Operator Name Role Phone Radha Cowan MD Primary Care Provider Encounter Details Date Type Department Care Team (Latest Contact Info) Description 03/15/2002 Outpatient Historical [facility] Corey Burkett, Augusto Tang MD [address] [place] [phone] DIABETES UNCOMPL ADULT-TYPE II (CMS/HCC) (Primary Dx); ABNORMAL URINE FINDINGS NEC; HEMATURIA; AFTERCARE [facility] USE MEDICATN Social History Tobacco Use Types Packs/Day Years Used Date Smoking Tobacco: Never Assessed Comments Unknown Sex and Gender Information Value Date Recorded Sex Assigned at Not on file Legal Sex Female 3:33 AM BEAM DEPARTMENT SUPERVISOR Gender Identity Not on file Sexual [...] COVID-19 07/25/2020 07/25/2020 07/27/2020 5:0 1 AM BEAM DEPARTMENT SUPERVISOR R/O COVID-19 09/30/2020 09/30/2020 09/30/2020 7:23 PM BEAM DEPARTMENT SUPERVISOR documented as of this encounter Care Teams Digestion Operator Relationship Specialty Start Date End Date Radha Cowan MD [address] [address] PCP - General Family Practice 10/24/20 documented as of this encounter
--- OUTSIDE RECORDS SUMMARY | 2025-06-28 18:20 | XMS_ITS | Encounter Summary ---
Author Organization [facility] Address [address] [facility] [place] [address] Care Team Providers Care Ms Sql Server Developer Name Role Phone Radha Cowan MD Primary Care Provider Encounter Details Date Type Department Care Team (Late st Contact Info) Description 01/24/[address] [facility] [address] [place] [address] [facility] [address] [place] [id number] Augusto Wright III, MD NO ADDRESS ON FILE RECURR DEPR PSYCHOS-MOD (CMS/HCC) (Primary Dx) Social History Tobacco Use Types Packs/Day Years Used Date Smoking Tobacco: Never Assessed Comments Unknown Sex and Gender Information Value Date Recorded Sex Assigned at Not on file Legal Sex Female 3:33 AM TRANSACTION MANAGER Gender Identity Not on file Sexual [...] R/O COVID-19 07/25/2020 07/25/2020 07/27/2020 5:01 AM TRANSACTION MANAGER R/O COVID-19 09/30/2020 09/30/[address]9/30/2020 7:23 PM TRANSACTION MANAGER documented as of this encounter Care Teams Ms Sql Server Developer Relationship Specialty Start Date End Date Radha Cowan MD [address] [phone] PCP - General Family Practice 10/24/20 documented as of this encounter
--- OUTSIDE RECORDS SUMMARY | 2025-06-28 18:20 | XMS_ITS | Encounter Summary ---
Author Organization [facility] Address [address] Charlesn: [place] [address] Care Team Providers Care Education And Training Coordinator Name Role Phone Radha Cowan MD Primary Care Provider +1- [phone] Encounter Details Date Type Department Care Team (Late st Contact Info) Description 09/01/2001 Outpatient Historical Augusto Nicole Jr., MD [address] [place] [phone] Social History Tobacco Use Types Packs/Day Years Used Date Smoking Tobacco: Never Assessed Comments Unknown Sex and Gender Information Value Date Recorded Sex Assigned at Not on file Legal Sex Female 3:33 AM CONCRETE PUMP OPERATOR Gender Identity Not on file Sexual Orientation Not on file documented as of this encounter Plan of Treatment Not on file documented as of this encounter Visit Diagnoses Not on filedocumented in this encounter Additional Health Concerns Infection Onset Date Last Indicated Resolved Time R/O COVID-19 05/16/2020 05/16/2020 05/18/2020 12:3 1 AM CDT R/O COVID-19 07/25/2020 07/25/2020 07/27/2020 5:01 AM CONCRETE PUMP OPERATOR R/O COVID-19 09/30/2020 09/30/2020 09/30/2020 7:23 PM CONCRETE PUMP OPERATOR documented as of this encounter Care Teams Education And Training Coordinator Relationship Specialty Start Date End Date Radha Cowan MD [address] [facility] [address] [place] [phone] PCP - General Family Practice 10/24/20 documented as of this encounter
--- OUTSIDE RECORDS SUMMARY | 2025-06-28 18:20 | XMS_ITS | Encounter Summary ---
Author Organization [facility] Address [address] [place] [address] Care Team Providers Care Multimedia Production Assistant Name Role Phone Radha Cowan MD Primary Care Provider +1- [phone] Encounter Details Date Type Department Care Team (Latest Contact Info) Description 04/27/2003 Outpatient Historical [facility] Augusto Nciole Jr., MD [address] [place] [phone] HAIR DISEASES NEC (Primary Dx); ABN SERUM ENZY LEVEL NEC; HYPERLIPIDEMIA NEC/NOS Social History Tobacco Use Types Packs/Day Years Used Date Smoking Tobacco: Never Assessed Comments Unknown Sex and Gender Information Value Date Recorded Sex Assigned at Not on file Legal Sex Female 3:33 AM AIRFIELD ENGINEER OFFICER Gender Identity Not on file Sexual [...] R/O COVID-19 07/25/2020 07/25/2020 07/27/2020 5:01 AM AIRFIELD ENGINEER OFFICER R/O COVID-19 09/30/2020 09/30/2020 09/30/2020 7:23 PM AIRFIELD ENGINEER OFFICER documented as of this encounter Care Teams Multimedia Production Assistant Relationship Specialty Start Date End Date Radha Cowan MD [address] [phone] PCP - General Family Practice 10/24/20 documented as of this encounter
--- OUTSIDE RECORDS SUMMARY | 2025-06-28 18:20 | XMS_ITS | Encounter Summary ---
Author Organization [facility] Address [address] [place] [address] Care Team Providers Care Etch Operator Semiconductor Wafers Name Role Phone Radha Cowan MD Primary Care Provider Encounter Details Date Type Department Care Team (Latest Contact Info) Description 01/19/2001 Outpatient Historical [facility] Augusto Nicole Jr., MD [address] [place] [phone] Chest pain, unspecified (Primary Dx); Generalized anxiety disorder Social History Tobacco Use Types Packs/Day Years Used Date Smoking Tobacco: Never Assessed Comments Unknown Sex and Gender Information Value Date Recorded Sex Assigned at Not on file Legal Sex Female 3:33 AM SPRINKLING SYSTEM INSTALLER Gender Identity Not on file Sexual Orientation [...] R/O COVID-19 07/25/2020 07/25/2020 07/27/2020 5:01 AM SPRINKLING SYSTEM INSTALLER R/O COVID-19 09/30/2020 09/30/2020 09/30/2020 7:23 PM SPRINKLING SYSTEM INSTALLER documented as of this encounter Care Teams Etch Operator Semiconductor Wafers Relationship Specialty Start Date End Date Radha Cowan MD [address] [facility] [address] [place] [address] PCP - General Family Practice 10/24/20 documented as of this encounter
--- OUTSIDE RECORDS SUMMARY | 2025-06-28 18:20 | XMS_ITS | Encounter Summary ---
Author Organization [facility] Address [address] [place] [address] Care Team Providers Care Painter Helper Sign Name Role Phone Radha Cowan MD Primary Care Provider [phone] Encounter Details Date Type Department Care Team (Latest Contact Info) Description 04/10/2002 Outpatient Historical [facility] ToroHema MD [address] [address] ESOPHAGEAL REFLUX (Primary Dx); ABDOMINAL PAIN EPIGASTRIC Social History Tobacco Use Types Packs/Day Years Used Date Smoking Tobacco: Never Assessed Comments Unknown Sex and Gender Information Value Date Recorded Sex Assigned at Not on file Legal Sex Female 3:33 AM TRUCK DRIVER RUBBISH COLLECTOR Gender Identity Not on file Sexual [...] R/O COVID-19 07/25/2020 07/25/2020 07/27/2020 5:01 AM TRUCK DRIVER RUBBISH COLLECTOR R/O COVID-19 09/30/2020 09/30/2020 09/30/2020 7:23 PM TRUCK DRIVER RUBBISH COLLECTOR documented as of this encounter Care Teams Painter Helper Sign Relationship Specialty Start Date End Date Radha Cowan MD [address] [address] PCP - General Family Practice 10/24/20 documented as of this encounter
--- OUTSIDE RECORDS SUMMARY | 2025-06-28 18:20 | XMS_ITS | Encounter Summary ---
Author Organization [facility] Address [address] Charlesn: [place] [address] Care Team Providers Care Lead Material Handler Name Role Phone Radha Cowan MD Primary Care Provider +1- [phone] Encounter Details Date Type Department Care Team (Late st Contact Info) Description 12/19/2001 Outpatient Historical Augusto Nicole Jr., MD [address] [place] [phone] Social History Tobacco Use Types Packs/Day Years Used Date Smoking Tobacco: Never Assessed Comments Unknown Sex and Gender Information Value Date Recorded Sex Assigned at Not on file Legal Sex Female 3:33 AM ELECTRIFICATION ADVISER Gender Identity Not on file Sexual Orientation Not on file documented as of this encounter Plan of Treatment Not on file documented as of this encounter Visit Diagnoses Not on filedocumented in this encounter Additional Health Concerns Infection Onset Date Last Indicated Resolved Time R/O COVID-19 05/16/2020 05/16/2020 05/18/2020 12:3 1 AM CDT R/O COVID-19 07/25/2020 07/25/2020 07/27/2020 5:01 AM ELECTRIFICATION ADVISER R/O COVID-19 09/30/2020 09/30/2020 09/30/2020 7:23 PM ELECTRIFICATION ADVISER documented as of this encounter Care Teams Lead Material Handler Relationship Specialty Start Date End Date Radha Cowan MD [address] [place] [phone] PCP - General Family Practice 10/24/20 documented as of this encounter
--- OUTSIDE RECORDS SUMMARY | 2025-06-28 18:20 | XMS_ITS | Encounter Summary ---
Author Organization [facility] Address [address] [place] [address] Care Team Providers Care Publications Designer Name Role Phone Radha Cowan MD Primary Care Provider +1- [phone] Encounter Details Date Type Department Care Team (Latest Contact Info) Description 12/19/2001 Outpatient Historical [facility] Augusto Nicole Jr., MD [address] [place] [phone] ENDOCARDITIS NOS (Primary Dx); EDEMA Social History Tobacco Use Types Packs/Day Years Used Date Smoking Tobacco: Never Assessed Comments Unknown Sex and Gender Information Value Date Recorded Sex Assigned at Not on file Legal Sex Female 3:33 AM COMPUTER OPERATIONS ANALYST Gender Identity Not on file Sexual [...] R/O COVID-19 07/25/2020 07/25/2020 07/27/2020 5:01 AM COMPUTER OPERATIONS ANALYST R/O COVID-19 09/30/2020 09/30/2020 09/30/2020 7:23 PM COMPUTER OPERATIONS ANALYST documented as of this encounter Care Teams Publications Designer Relationship Specialty Start Date End Date Radha Cowan MD [address] [facility] [address] [place] [address] PCP - General Family Practice 10/24/20 documented as of this encounter
--- OUTSIDE RECORDS SUMMARY | 2025-06-28 18:20 | XMS_ITS | Encounter Summary ---
Author Organization [facility] Address [address] [facility] [place] [facility] [address] Charlesn: [place] [address] Care Team Providers Care Bulb Assembler Name Role Phone Radha Cowan MD Primary Care Provider +1- [phone] Encounter Details Date Type Department Care Team (Late st Contact Info) Description 05/10/2002 Outpatient Historical Augusto Nicole Jr., MD [address] [place] [phone] Social History Tobacco Use Types Packs/Day Years Used Date Smoking Tobacco: Never Assessed Comments Unknown Sex and Gender Information Value Date Recorded Sex Assigned at Not on file Legal Sex Female 3:33 AM CLINICAL TRIALS DATA COORDINATOR Gender Identity Not on file Sexual Orientation Not on file documented as of this encounter Plan of Treatment Not on file documented as of this encounter Visit Diagnoses Not on filedocumented in this encounter Additional Health Concerns Infection Onset Date Last Indicated Resolved Time R/O COVID-19 05/16/2020 05/16/2020 05/18/2020 12:3 1 AM CDT R/O COVID-19 07/25/2020 07/25/2020 07/27/2020 5:01 AM CLINICAL TRIALS DATA COORDINATOR R/O COVID-19 09/30/2020 09/30/2020 09/30/2020 7:23 PM CLINICAL TRIALS DATA COORDINATOR documented as of this encounter Care Teams Bulb Assembler Relationship Specialty Start Date End Date Radha Cowan MD [address] [facility] [address] [place] [phone] PCP - General Family Practice 10/24/20 documented as of this encounter
--- OUTSIDE RECORDS SUMMARY | 2025-06-28 18:20 | XMS_ITS | Encounter Summary ---
Author Organization [facility] Address [address] [facility] [address] Charlesn: [place] [address] Care Team Providers Care Aml Analyst Name Role Phone Radha Cowan MD Primary Care Provider +1- [phone] Encounter Details Date Type Department Care Team (Late st Contact Info) Description 02/18/2001 Outpatient Historical Augusto Nicole Jr., MD [address] [place] [phone] Social History Tobacco Use Types Packs/Day Years Used Date Smoking Tobacco: Never Assessed Comments Unknown Sex and Gender Information Value Date Recorded Sex Assigned at Not on file Legal Sex Female 3:33 AM DREDGE WORKER Gender Identity Not on file Sexual Orientation Not on file documented as of this encounter Plan of Treatment Not on file documented as of this encounter Visit Diagnoses Not on filedocumented in this encounter Additional Health Concerns Infection Onset Date Last Indicated Resolved Time R/O COVID-19 05/16/2020 05/16/2020 05/18/2020 12:3 1 AM CDT R/O COVID-19 07/25/2020 07/25/2020 07/27/2020 5:01 AM DREDGE WORKER R/O COVID-19 09/30/2020 09/30/2020 09/30/2020 7:23 PM DREDGE WORKER documented as of this encounter Care Teams Aml Analyst Relationship Specialty Start Date End Date Radha Cowan MD [address] [place] [phone] PCP - General Family Practice 10/24/20 documented as of this encounter
--- OUTSIDE RECORDS SUMMARY | 2025-06-28 18:20 | XMS_ITS | Encounter Summary ---
Author Organization [facility] Address [address] [place] [address] Care Team Providers Care Steel Post Installer Supervisor Name Role Phone Radha Cowan MD Primary Care Provider +1- [phone] Encounter Details Date Type Department Care Team (Latest Contact Info) Description 12/20/2000 Outpatient Historical [facility] Augusto Nicole Jr., MD [address] [place] [phone] Pure hypercholesterolem (Primary Dx) Social History Tobacco Use Types Packs/Day Years Used Date Smoking Tobacco: Never Assessed Comments Unknown Sex and Gender Information Value Date Recorded Sex Assigned at Not on file Legal Sex Female 3:33 AM PROGRAM CONTROL ANALYST Gender Identity Not on file Sexual [...] R/O COVID-19 07/25/2020 07/25/2020 07/27/2020 5:01 AM PROGRAM CONTROL ANALYST R/O COVID-19 09/30/2020 09/30/2020 09/30/2020 7:23 PM PROGRAM CONTROL ANALYST documented as of this encounter Care Teams Steel Post Installer Supervisor Relationship Specialty Start Date End Date Radha Cowan MD [address] [place] [address] PCP - General Family Practice 10/24/20 documented as of this encounter
--- OUTSIDE RECORDS SUMMARY | 2025-06-28 18:20 | XMS_ITS | Encounter Summary ---
Author Organization [facility] Address [address] [place] [address] Care Team Providers Care Dental Cream Maker Name Role Phone Radha Cowan MD Primary Care Provider [phone]- [phone] Encounter Details Date Type Department Care Team (Latest Contact Info) Description 01/16/2002 Outpatient Historical [facility] Augusto Nicole Jr., MD [address] [place] [phone] CHRONIC AIRWAY OBSTRUCTION NEC (CMS/[facility]) (Primary Dx); ANEMIA NOS; DEPRESSIVE DISORDER NEC Social History Tobacco Use Types Packs/Day Years Used Date Smoking Tobacco: Never Assessed Comments Unknown Sex and Gender Information Value Date Recorded Sex Assigned at Not on file Legal Sex Female 3:33 AM BUFFERER Gender Identity Not on file Sexual Orientation [...] R/O COVID-19 07/25/2020 07/25/2020 07/27/2020 5:01 AM BUFFERER R/O COVID-19 09/30/2020 09/30/2020 09/30/2020 7:23 PM BUFFERER documented as of this encounter Care Teams Dental Cream Maker Relationship Specialty Start Date End Date Radha Cowan MD [address] [phone] PCP - General Family Practice 10/24/20 documented as of this encounter
--- OUTSIDE RECORDS SUMMARY | 2025-06-28 18:20 | XMS_ITS | Encounter Summary ---
Author Organization [facility] Address [address] [place]: [place] [address] Care Team Providers Care Quilting Supervisor Name Role Phone Radha Cowan MD Primary Care Provider [phone]- [phone] Encounter Details Date Type Department Care Team (Late st Contact Info) Description 06/10/2001 Outpatient Historical Augusto Nicole Jr., MD [address] [place] [phone] Social History Tobacco Use Types Packs/Day Years Used Date Smoking Tobacco: Never Assessed Comments Unknown Sex and Gender Information Value Date Recorded Sex Assigned at Not on file Legal Sex Female 3:33 AM LABELING SPECIALIST Gender Identity Not on file Sexual Orientation Not on file documented as of this encounter Plan of Treatment Not on file documented as of this encounter Visit Diagnoses Not on filedocumented in this encounter Additional Health Concerns Infection Onset Date Last Indicated Resolved Time R/O COVID-19 05/16/2020 05/16/2020 05/18/2020 12:3 1 AM CDT R/O COVID-19 07/25/2020 07/25/2020 07/27/2020 5:01 AM LABELING SPECIALIST R/O COVID-19 09/30/2020 09/30/2020 09/30/2020 7:23 PM LABELING SPECIALIST documented as of this encounter Care Teams Quilting Supervisor Relationship Specialty Start Date End Date Radha Cowan MD [address] [place] [phone] PCP - General Family Practice 10/24/20 documented as of this encounter
[2025-06-28 18:21] VITALS: BP 137/75; PULSE 131; RESP 26; TEMP 37; O2SAT 99
--- OUTSIDE RECORDS SUMMARY | 2025-06-28 18:21 | XMS_ITS | Encounter Summary ---
Author Organization [facility] Address [address] [place] [address] Care Team Providers Care Ultimate Hoops Scoreboard Operator Name Role Phone Radha Cowan MD Primary Care Provider Encounter Details Date Type Department Care Team (Latest Contact Info) Description 01/15/2003 Outpatient Historical [facility] Corey Burkett, Augusto Tang MD [address] [place] [phone] DIABETES UNCOMPL ADULT-TYPE II (CMS/HCC) (Primary Dx); Pure hypercholesterolem; HYPERTENSION NOS; TOBACCO USE DISORDER Social History Tobacco Use Types Packs/Day Years Used Date Smoking Tobacco: Never Assessed Comments Unknown Sex and Gender Information Value Date Recorded Sex Assigned at Not on file Legal Sex Female 3:33 AM SMOKEHOUSE OPERATOR Gender Identity Not on file Sexual [...] R/O COVID-19 07/25/2020 07/25/2020 07/27/2020 5:01 AM SMOKEHOUSE OPERATOR R/O COVID-19 09/30/2020 09/30/2020 09/30/2020 7:23 PM SMOKEHOUSE OPERATOR documented as of this encounter Care Teams Ultimate Hoops Scoreboard Operator Relationship Specialty Start Date End Date Radha Cowan MD [address] [address] PCP - General Family Practice 10/24/20 documented as of this encounter
--- OUTSIDE RECORDS SUMMARY | 2025-06-28 18:21 | XMS_ITS | Encounter Summary ---
Author Organization [facility] Address [address] [place] [address] Care Team Providers Care Communications Planner Name Role Phone Radha Cowan MD Primary Care Provider Encounter Details Date Type Department Care Team (Latest Contact Info) Description 02/19/2003 Outpatient Historical [facility] Corey Burkett, Augusto Tang MD [address] [place] [phone] DIABETES UNCOMPL ADULT-TYPE II (CMS/HCC) (Primary Dx); MIGRAINE NOS W/O MENTN INTRACTABLE; Pure hypercholesterolem; DERMATOPHYTOSIS OF NAIL Social History Tobacco Use Types Packs/Day Years Used Date Smoking Tobacco: Never Assessed Comments Unknown Sex and Gender Information Value Date Recorded Sex Assigned at Not on file Legal Sex Female 3:33 AM APPLICATIONS SYSTEM ANALYST Gender Identity Not on file Sexual [...] R/O COVID-19 07/25/2020 07/25/2020 07/27/2020 5:01 AM APPLICATIONS SYSTEM ANALYST R/O COVID-19 09/30/2020 09/30/2020 09/30/2020 7:23 PM APPLICATIONS SYSTEM ANALYST documented as of this encounter Care Teams Communications Planner Relationship Specialty Start Date End Date Radha Cowan MD [address] [phone] PCP - General Family Practice 10/24/20 documented as of this encounter
--- OUTSIDE RECORDS SUMMARY | 2025-06-28 18:21 | XMS_ITS | Encounter Summary ---
Author Organization [facility] Address [address] [place] [address] Care Team Providers Care Cyber Defense Forensics Analyst Name Role Phone Radha Cowan MD Primary Care Provider Encounter Details Date Type Department Care Team (Latest Contact Info) Description 05/19/2002 Outpatient Historical [facility] Corey Burkett, Augusto Tang MD [address] [place] [phone] DIABETES UNCOMPL ADULT-TYPE II (CMS/HCC) (Primary Dx); Pure hypercholesterolem; AFTERCARE FPC USE MEDICATN Social History Tobacco Use Types Packs/Day Years Used Date Smoking Tobacco: Never Assessed Comments Unknown Sex and Gender Information Value Date Recorded Sex Assigned at Not on file Legal Sex Female 3:33 AM INSPECTOR OPTICAL INSTRUMENT Gender Identity Not on file Sexual Orientation [...] R/O COVID-19 07/25/2020 07/25/2020 07/27/2020 5:01 AM INSPECTOR OPTICAL INSTRUMENT R/O COVID-19 09/30/2020 09/30/2020 09/30/2020 7:23 PM INSPECTOR OPTICAL INSTRUMENT documented as of this encounter Care Teams Cyber Defense Forensics Analyst Relationship Specialty Start Date End Date Radha Cowan MD [address] [phone] PCP - General Family Practice 10/24/20 documented as of this encounter
--- OUTSIDE RECORDS SUMMARY | 2025-06-28 18:21 | XMS_ITS | Encounter Summary ---
Author Organization [facility] Address [address] [place] [address] Care Team Providers Care Site Medical Director Name Role Phone Radha Cowan MD Primary Care Provider Encounter Details Date Type Department Care Team (Latest Contact Info) Description 06/30/2002 Outpatient Historical [facility] Corey Burkett, Augusto aTng MD [address] [place] [phone] DIABETES UNCOMPL ADULT-TYPE II (CMS/HCC) (Primary Dx); RENAL & URETERAL DIS NOS; HYPERTENSION NOS; HYPERLIPIDEMIA NEC/NOS Social History Tobacco Use Types Packs/Day Years Used Date Smoking Tobacco: Never Assessed Comments Unknown Sex and Gender Information Value Date Recorded Sex Assigned at Not on file 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
--- OUTSIDE RECORDS SUMMARY | 2025-06-28 18:21 | XMS_ITS | Encounter Summary ---
Author Organization [facility] Address [address] 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 Gender Identity Not on file Sexual Orientation Not on file documented as of this encounter Plan of Treatment Not on file documented as of this encounter Visit Diagnoses Not on filedocumented in this encounter Additional Health Concerns Infection Onset Date Last Indicated Resolved Time R/O COVID-19 05/16/2020 05/16/2020 05/18/2020 12:3 1 AM CDT R/O COVID-19 07/25/2020 07/25/2020 07/27/2020 5:01 AM PUBLIC ADMINISTRATION TEACHER R/O COVID-19 09/30/2020 09/30/2020 09/30/2020 7:23 PM PUBLIC ADMINISTRATION TEACHER documented as of this encounter Care Teams Material Coordinator Relationship Specialty Start Date End Date Radha Cowan MD [address] [place] [phone] PCP - General Family Practice 10/24/20 documented as of this encounter
--- OUTSIDE RECORDS SUMMARY | 2025-06-28 18:21 | XMS_ITS | Encounter Summary ---
Author Organization [facility] Address [address] [place] [address] Care Team Providers Care Kier Pleater Name Role Phone Radha Cowan MD Primary Care Provider [phone] Encounter Details Date Type Department Care Team (Late st Contact Info) Description 02/19/2003 Outpatient Historical [facility] Augusto Nicole Jr., MD [address] [place] [phone] DIABETES UNCOMPL ADULT-TYPE II (CMS/HCC) (Primary Dx) Social History Tobacco Use Types Packs/Day Years Used Date Smoking Tobacco: Never Assessed Comments Unknown Sex and Gender Information Value Date Recorded Sex Assigned at Not on file 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
--- NOTE | 2025-06-28 19:01 | W.ED.SOB ---
HPI - SOB/Dyspnea General: Chief Complaint: Shortness of Breath/Dyspnea Stated Complaint: SOB ox in 70s doc sent Time Seen by Provider: 06/28/25 19:00 Related Data Home Medications ?Medication ?Instructions ?Recorded ?Confirmed insulin lispro 100 unit/mL See Rx Instructions SUBCUT TID PRN 08/02/23 06/19/25 subcutaneous pen (Humalog KwikPen blood sugar (U-100) Insulin) dulaglutide 3 mg/0.5 mL 3 mg SUBCUT Q7D 03/22/24 06/19/25 subcutaneous pen injector (Trulicity) levothyroxine 25 mcg tablet 25 mcg PO QAM 03/22/24 06/19/25 doxepin 25 mg capsule 50 mg PO BEDTIME 05/29/24 06/19/25 latanoprost 0.005 % eye drops 1 drp ophthalmic (eye) BEDTIME 05/29/24 06/19/25 ubrogepant 50 mg tablet 50 mg PO 1XD PRN Migraine Headache 02/05/25 06/19/25 arformoterol 15 mcg/2 mL solution 2 ml inhalation DAILY 02/19/25 06/19/25 for nebulization cholecalciferol (vitamin D3) 125 125 mcg PO DAILY 02/19/25 06/19/25 mcg (5,000 unit) capsule loratadine 10 mg capsule (Allergy 10 mg PO DAILY 02/19/25 06/19/25 Relief (loratadine)) bumetanide 1 mg tablet 1 mg PO DAILY 05/24/25 06/19/25 aspirin 81 mg tablet,delayed 81 mg PO DAILY 05/30/25 06/19/25 release lactulose 10 gram/15 mL oral See Rx Instructions .Route 05/30/25 06/19/25 solution .COMPLEX PRN constipation ondansetron HCl 4 mg tablet 4 mg PO Q6H PRN Nausea And Vomiting 05/30/25 06/19/25 prochlorperazine maleate 10 mg 10 mg PO Q4H PRN mild nausea 05/30/25 06/19/25 tablet Previous Rx's ?Medication ?Instructions ?Recorded pantoprazole 40 mg tablet,delayed 40 mg PO BID #180 tabs 02/06/25 release albuterol sulfate 90 mcg/actuation 2 inh inhalation Q4H PRN shortness 09/15/25 aerosol inhaler of breath or wheezing #6.7 grams atorvastatin 10 mg tablet 10 mg PO DAILY 90 days #90 tabs 05/24/25 metoprolol tartrate 25 mg tablet 25 mg PO DAILY 90 days #90 tabs 05/24/25 gabapentin 300 mg capsule 300 mg PO BID #60 caps 05/28/25 hydrocodone 5 mg-acetaminophen 325 1 tab PO Q6H PRN pain 30 days #120 10/15/25 mg tablet tabs Allergies Allergy/AdvReac Type Severity Reaction Status Date / Time codeine Allergy Unknown ADR-Nausea Verified 06/19/25 09:30 adhesive tape Allergy ALGY-Bliste Verified 06/19/25 09:30 r ketorolac (From Toradol) Allergy Unknown Verified 06/19/25 09:30 melatonin Allergy ADR-Nausea Verified 06/19/25 09:30 [facility] ED PFSH: Medical History (Updated 06/24/25 @ 00:00 by DANNY Hughes) Chemotherapy induced neutropenia History of cataract cataract left eye 09/20 right eye 12/20 Chronic constipation 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 Pleuritic chest pain Chronic hypoxemic respiratory failure Small cell lung cancer Nicotine use disorder PTSD (post-traumatic stress disorder) Bipolar disorder current episode depressed History of attempted suicide Hypothyroidism (acquired) Duodenitis Gastritis Sleep apnea Obesity Bipolar affect, depressed Depression Hypertension Diabetes Oxygen dependent CHF (congestive heart failure) GERD (gastroesophageal reflux disease) COPD (chronic obstructive pulmonary disease) 3L o2 , mild to mod copd responsive to bronchodilator Enrolled in chronic care management Surgical History History of appendectomy H/O colonoscopy with polypectomy H/O esophagogastroduodenoscopy Tubal ligation status S/P cholecystectomy Family History Father Lung cancer Sister Ovarian cancer Mother Diabetes Other CAD (coronary artery disease) Social History Smoking and tobacco/nicotine status: current every day tobacco/nicotine user cigarettes Packs smoked per day: 1 Years cigarettes smoked: 37 [ Other cigarette details: She had quit smoking for 8 months, but then started again.] Alcohol intake: former Year of sobriety/quit date alcohol: 1999 Substance/Drug Use: never Additional social history: She lives alone and states she drives herself to her chemo. She wants full CODE STATUS as discussed today with Fredi Curry MD on 02/05/2025 Adopted: No Caregiver/support person: No Lives independently: No Household members: family Housing: House Current gender identity: Female Course Vital Signs: Vital signs: Vital Signs Temperature 98.6 F 06/28/25 18:21 Pulse Rate 131 H 06/28/25 18:21 Respiratory Rate 26 H 06/28/25 18:21 Blood Pressure 137/75 06/28/25 18:21 Pulse Oximetry 99 06/28/25 18:21 Oxygen Delivery Me thod Nasal Cannula 06/28/25 18:21 Oxygen Flow Rate 4 06/28/25 18:21 Discharge Plan Discharge Condition: Stable Prescriptions: No Action bumetanide 1 mg tablet 1 mg PO DAILY metoprolol tartrate 25 mg tablet 25 mg PO DAILY 90 Days Qty: 90 1RF atorvastatin 10 mg tablet 10 mg PO DAILY 90 Days Qty: 90 4RF insulin lispro [Humalog KwikPen Insulin] 100 unit/mL insulin pen See Rx Instructions SUBCUT TID PRN (Reason: blood sugar) Rx Instructions: Use per sliding scale subcutaneously three times daily as needed. doxepin 25 mg capsule 50 mg PO BEDTIME latanoprost 0.005 % drops 1 drp ophthalmic (eye) BEDTIME cholecalciferol (vitamin D3) 125 mcg (5,000 unit) capsule 125 mcg PO DAILY arformoterol 15 mcg/2 mL solution for nebulization 2 ml inhalation DAILY Allergy Relief (loratadine) 10 mg capsule 10 mg PO DAILY gabapentin 300 mg capsule 300 mg PO BID Qty: 60 2RF pantoprazole 40 mg tablet,delayed release (DR/EC) 40 mg PO BID Qty: 180 0RF hydrocodone-acetaminophen 5-325 mg tablet 1 tab PO Q6H PRN (Reason: pain) 30 Days Qty: 120 0RF Trulicity 3 mg/0.5 mL pen injector 3 mg SUBCUT Q7D Rx Instructions: ON WEDNESDAY levothyroxine 25 mcg tablet 25 mcg PO QAM ubrogepant 50 mg Tablet 50 mg PO 1XD PRN (Reason: Migraine Headache) albuterol sulfate 90 mcg/actuation HFA aerosol inhaler 2 inh inhalation Q4H PRN (Reason: shortness of breath or wheezing) Qty: 6.7 0RF Rx Instructions: Please provide patient with a spacer ondansetron HCl 4 mg tablet 4 mg PO Q6H PRN (Reason: Nausea And Vomiting) prochlorperazine maleate 10 mg tablet 10 mg PO Q4H PRN (Reason: mild nausea) lactulose 10 gram/15 mL solution See Rx Instructions .ROUTE .COMPLEX PRN (Reason: constipation) Rx Instructions: Take 30 mL every 2 hours until bowel movement. If no bowel movement within 72 hours, may repeat. aspirin 81 mg Tablet,Delayed Release (Dr/Ec) 81 mg PO DAILY Print Language: Estonian Coding Level of Care Code ED Passenger Representative for Farhat Cooper
[2025-06-28] MEDS: methylPREDNISolone sod succ 125 mg/2 mL INJ IVP (19:09)
[2025-06-28 19:24] VITALS: PULSE 132; RESP 24; O2SAT 97
[2025-06-28 19:40] VITALS: PULSE 134
[2025-06-28 19:43] VITALS: PULSE 137; RESP 16; O2SAT 100
[2025-06-28 19:59] LABS: ABG PCO2 34.5 mmHg (35-45); ABG PH Result 7.47 (7.35-7.45); Alveolar-Arterial Oxygen Gradi 4.2 mmHg (5-10); Arterial Blood Gas Hematocrit 25.0 % (37-47); Blood Gas LPM 5.0 %; Blood Gas Operator Identificat JDB; Blood Gas Sample Site Brachial, right; Blood Gas Sample Type Arterial; Carboxyhemoglobin 1.4 %THgb (0.4-20.1); Glucose Level-ABG 158.0 mg/dL (70-115); HCO3 ABG 25.0 mmol/L (22-26); Ionized Calcium Level - ABG 1.2 mmol/L (1.1-1.4); Methemoglobin 1.3 % (0.4-1.5); Oxygen Saturation ABG 96.2; PO2 ABG 74.4 mmHg (80.0-100.0); Potassium Level - ABG 3.7 mmol/L (3.5-5.0); Sodium Level - ABG 137.0 mmol/L (131-143)
--- NOTE | 2025-06-28 19:59 | W.ED.GENADLT ---
HPI - General Adult General: Chief complaint: Shortness of Breath/Dyspnea Stated complaint: SOB ox in 70s doc sent Time Seen by Provider: 06/28/25 19:00 History of Present Illness: 70yo F w/pmhx of SCC fo R upper lung, chronic hypoxemic respiratory failure on 4-5L per NC at home, obesity, CHF, COPD w/cc of shortness of breath and hypoxia. She was seen in our ED on 06/23 for chest pain. Today she denies chest pain but reports dyspnea and states that in the last few days she's coughed up blood, about a teaspoon each time. She has not had any fainting spells or new leg swelling. She denies abd pain but states she's been nauseated w/o vomiting. She has had poor appetite. No BM in the last few days but denies abd pain. She reports new hematuria but does not have dysuria, frequency or flank pain. She denies any erythema or pain around her port. Last chemotherapy was Wednesday. Family states patient has not been confused. Related Data Home Medications ?Medication ?Instructions ?Recorded ?Confirmed insulin lispro 100 unit/mL See Rx Instructions SUBCUT TID PRN 08/02/23 06/19/25 subcutaneous pen (Humalog KwikPen blood sugar (U-100) Insulin) dulaglutide 3 mg/0.5 mL 3 mg SUBCUT Q7D 03/22/24 06/19/25 subcutaneous pen injector (Trulicity) levothyroxine 25 mcg tablet 25 mcg PO QAM 03/22/24 06/19/25 doxepin 25 mg capsule 50 mg PO BEDTIME 05/29/24 06/19/25 latanoprost 0.005 % eye drops 1 drp ophthalmic (eye) BEDTIME 05/29/24 06/19/25 ubrogepant 50 mg tablet 50 mg PO 1XD PRN Migraine Headache 02/05/25 06/19/25 arformoterol 15 mcg/2 mL solution 2 ml inhalation DAILY 02/19/25 06/19/25 for nebulization cholecalciferol (vitamin D3) 125 125 mcg PO DAILY 02/19/25 06/19/25 mcg (5,000 unit) capsule loratadine 10 mg capsule (Allergy 10 mg PO DAILY 02/19/25 06/19/25 Relief (loratadine)) bumetanide 1 mg tablet 1 mg PO DAILY 05/24/25 06/19/25 aspirin 81 mg tablet,delayed 81 mg PO DAILY 05/30/25 06/19/25 release lactulose 10 gram/15 mL oral See Rx Instructions .Route 05/30/25 06/19/25 solution .COMPLEX PRN constipation ondansetron HCl 4 mg tablet 4 mg PO Q6H PRN Nausea And Vomiting 05/30/25 06/19/25 prochlorperazine maleate 10 mg 10 mg PO Q4H PRN mild nausea 05/30/25 06/19/25 tablet Previous Rx's ?Medication ?Instructions ?Recorded pantoprazole 40 mg tablet,delayed 40 mg PO BID #180 tabs 02/06/25 release albuterol sulfate 90 mcg/actuation 2 inh inhalation Q4H PRN shortness 05/21/25 aerosol inhaler of breath or wheezing #6.7 grams atorvastatin 10 mg tablet 10 mg PO DAILY 90 days #90 tabs 05/24/25 metoprolol tartrate 25 mg tablet 25 mg PO DAILY 90 days #90 tabs 05/24/25 gabapentin 300 mg capsule 300 mg PO BID #60 caps 05/28/25 hydrocodone 5 mg-acetaminophen 325 1 tab PO Q6H PRN pain 30 days #120 06/20/25 mg tablet tabs Allergies Allergy/AdvReac Type Severity Reaction Status Date / Time codeine Allergy Unknown ADR-Nausea Verified 06/19/25 09:30 adhesive tape Allergy ALGY-Bliste Verified 06/19/25 09:30 r ketorolac (From Toradol) Allergy Unknown Verified 06/19/25 09:30 melatonin Allergy ADR-Nausea Verified 06/19/25 09:30 [facility] PFSH: Medical History (Updated 06/28/25 @ 22:11 by Tasia Trejo MD) Chemotherapy induced neutropenia History of cataract cataract left eye 09/20 right eye 12/20 Chronic constipation 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 Pleuritic chest pain Chronic hypoxemic respiratory failure Small cell lung cancer Nicotine use disorder PTSD (post-traumatic stress disorder) Bipolar disorder current episode depressed History of attempted suicide Hypothyroidism (acquired) Duodenitis Gastritis Sleep apnea Obesity Bipolar affect, depressed Depression Hypertension Diabetes Oxygen dependent CHF (congestive heart failure) GERD (gastroesophageal reflux disease) COPD (chronic obstructive pulmonary disease) 3L o2 , mild to mod copd responsive to bronchodilator Enrolled in chronic care management Surgical History History of appendectomy H/O colonoscopy with polypectomy H/O esophagogastroduodenoscopy Tubal ligation status S/P cholecystectomy Family History Father Lung cancer Sister Ovarian cancer Mother Diabetes Other CAD (coronary artery disease) Social History Smoking and tobacco/nicotine status: current every day tobacco/nicotine user cigarettes Packs smoked per day: 1 Years cigarettes smoked: 37 [ Other cigarette details: She had quit smoking for 8 months, but then started again.] Alcohol intake: former Year of sobriety/quit date alcohol: 1999 Substance/Drug Use: never Additional social history: She lives alone and states she drives herself to her chemo. She wants full CODE STATUS as discussed today with Fredi Curry MD on 02/05/2025 Adopted: No Caregiver/support person: No Lives independently: No Household members: family Housing: House Current gender identity: Female Physical Exam Narrative: EXAM NARRATIVE: Vitals were reviewed. Patient is alert, oriented. She does not appear to be in acute distress and is breathing comfortably on home 4LNC. She has diffuse rhonchi and coarse wheezing. She is quite tachycardic but is not hypotensive. She has a soft, nondistended and nontender abdomen. No CVA tenderness w/percussion of the flank. No LE asymmetry or edema. No significant erythema surrounding port. Course Vital Signs: Vital signs: Vital Signs Temperature 98.6 F 06/28/25 18:21 Pulse Rate 137 H 06/28/25 19:43 Respiratory Rate 16 06/28/25 19:43 Blood Pressure 137/75 06/28/25 18:21 Pulse Oximetry 100 06/28/25 19:43 Oxygen Delivery Me thod Nasal Cannula 06/28/25 19:43 Oxygen Flow Rate 4 06/28/25 19:43 MDM - General Adult Medical Decision Making 70-year-old female with a known history of cell lung cancer, COPD, CHF presents with dyspnea, hemoptysis for the past several days. She has a baseline oxygen requirement. Differential diagnosis includes, but is not limited to, ACS, CHF, , pneumonia, viral upper respiratory infection, PE, pleural effusion, other. On initial exam, patient is on baseline O2. She is not in acute respiratory distress. She is much more tachycardic than during previous visit. Gave 500cc fluid bolus given reported poor appetite and PO intake. Patient was evaluated with CBC, CMP, troponin, BNP, lactic acid, procalcitonin, COVID and flu screen, UA, chest x-ray, EKG and CT PE. Patient has a hemoglobin and hematocrit of 6.3/19. Additionally, patient is severely neutropenic with a left shift. It appears that she has pancytopenia. Patient continues to have a normal lactic acid and a normal procalcitonin. She has a normal troponin and BNP is less than 400. Clinically, she does not appear to be significantly volume overloaded; CXR is stable. UA does not show infection. She is negative for COVID/flu/RSV. CT shows: IMPRESSION: 1. Similar to slightly increased right basilar tree-in-bud nodularity. 2. Mild shifting left upper lobe ground-glass opacities with interval clearing of left lower lobe. Findings may be infectious or inflammatory. 3. No significant interval change to known right upper lung mass with associated bronchial and pulmonary arterial narrowing. 4. Soft tissue mass at the lower posterior esophageal margin is also grossly stable. With her severe immunocompromise, assuming opacities may be infectious and patient was treated with IV cefepime, IV vancomycin, transfusion of packed red blood cells and admitted. Lab Data 06/28/25 20:15 06/28/25 19:38 Radiology Impressions Chest X-Ray 06/28/25 18:15 IMPRESSION: 1. No acute findings. 2. Similar right mid lung zone opacity in keeping with known mass. Chest CTA 06/28/25 20:15 IMPRESSION: 1. Similar to slightly increased right basilar tree-in-bud nodularity. 2. Mild shifting left upper lobe ground-glass opacities with interval clearing of left lower lobe. Findings may be infectious or inflammatory. 3. No significant interval change to known right upper lung mass with associated bronchial and pulmonary arterial narrowing. 4. Soft tissue mass at the lower posterior esophageal margin is also grossly stable. Laboratory Results WBC 1.26 10^3/uL (3.29-11.43) L 06/28/25 20:15 Corrected WBC Cancelled 06/28/25 19:38 RBC 2.06 10^6/uL (3.85-5.65) L 06/28/25 20:15 Hgb 6.30 g/dL (11.27-16.99) L* 06/28/25 20:15 Hct 19.0 % (36-47) L* 06/28/25 20:15 MCV 92.2 fl (85-98) 06/28/25 20:15 MCH 30.6 pg (27-33) 06/28/25 20:15 MCHC 33.2 g/dL (30-55) 06/28/25 20:15 RDW 14.7 % (12.1-15.1) 06/28/25 20:15 Plt Count 52 10^3/cmm (157-399) L 06/28/25 20:15 MPV 10.1 fL (7.4-10.4) 06/28/25 20:15 Gran % Cancelled 06/28/25 19:38 Neut % (Auto) Cancelled 06/28/25 19:38 Lymph % (Auto) Not Reportable 06/28/25 20:15 [place] % (Auto) Not Reportable 06/28/25 20:15 Eos % (Auto) Cancelled 06/28/25 19:38 Baso % (Auto) Cancelled 06/28/25 19:38 Neut # (Auto) Not Reportable 06/28/25 20:15 Lymph # (Auto) Not Reportable 06/28/25 20:15 [place] # (Auto) Not Reportable 06/28/25 20:15 Eos # (Auto) Cancelled 06/28/25 19:38 Baso # (Auto) Cancelled 06/28/25 19:38 Absolute Gran (auto) Cancelled 06/28/25 19:38 Nucleated RBC % (auto) Cancelled 06/28/25 19:38 Total Counted 100 (0-100) 06/28/25 20:15 Atypical Lymphs % 3.0 % (0-5) 06/28/25 20:15 Absolute Neutrophils 0.7 10^3/cmm (1.4-6.5) L* 06/28/25 20:15 Segmented Neutrophils 48 % 06/28/25 20:15 Band Neutrophils 6.0 % 06/28/25 20:15 Absolute Lymphocytes 0.5 10^3/cmm (1.2-3.4) L 06/28/25 20:15 Lymphocytes (Manual) 33 % 06/28/25 20:15 Monocytes (Manual) 8.0 % 06/28/25 20:15 Absolute Monocytes 0.1 10^3/cmm (0.1-0.6) 06/28/25 20:15 Eosinophils (Manual) 2 % 06/28/25 20:15 Absolute Eosinophils 0.0 10^3/cmm (0.0-0.7) 06/28/25 20:15 Basophils (Manual) 0.0 % 06/28/25 20:15 Absolute Basophils 0.0 10^3/cmm (0.0-0.2) 06/28/25 20:15 Nucleated RBCs # Cancelled 06/28/25 19:38 Platelet Estimate Decreased (Normal) L 06/28/25 20:15 Specimen Type Arterial 06/28/25 19:46 Sample Site Brachial, right 06/28/25 19:46 ABG pH 7.47 (7.35-7.45) H 06/28/25 19:46 ABG pCO2 34.5 mmHg (35-45) L 06/28/25 19:46 ABG pO2 74.4 mmHg (80.0-100.0) L 06/28/25 19:46 ABG HCO3 25.0 mmol/L (22-26) 06/28/25 19:46 ABG O2 Saturation 96.2 06/28/25 19:46 ABG Base Excess 1.3 mmol/L (-2.0-2.0) 06/28/25 19:46 Leonel Test N/a 06/28/25 19:46 A-a O2 Gradient 4.2 mmHg (5-10) L 06/28/25 19:46 Hematocrit 25.0 % (37-47) L 06/28/25 19:46 Hgb O2 Saturation 93.6 % (95-100) L 06/28/25 19:46 Carboxyhemoglobin 1.4 %THgb (0.4-20.1) 06/28/25 19:46 Methemoglobin 1.3 % (0.4-1.5) 06/28/25 19:46 Total Hemoglobin 8.2 g/dL (12-16) L 06/28/25 19:46 Sodium 137.0 mmol/L (131-143) 06/28/25 19:46 Potassium 3.7 mmol/L (3.5-5.0) 06/28/25 19:46 Glucose 158.0 mg/dL (70-115) H 06/28/25 19:46 Ionized Calcium 1.2 mmol/L (1.1-1.4) 06/28/25 19:46 O2 Delivery Device Nc 06/28/25 19:46 O2 Liters/Min 5.0 % 06/28/25 19:46 Residential Insurance Inspector ID [id number] 06/28/25 19:46 Sodium 137 mmol/L (136-145) 06/28/25 19:38 Potassium 3.6 mmol/L (3.5-5.1) 06/28/25 19:38 Chloride 100 mmol/L (98-107) 06/28/25 19:38 Carbon Dioxide 23 mmol/L (22-29) 06/28/25 19:38 Anion Gap 17.6 (5-19) 06/28/25 19:38 BUN 16 mg/dL (8-23) 06/28/25 19:38 Creatinine 0.7 mg/dL (0.5-0.9) 06/28/25 19:38 GFR Calculation 83.0 mL/min (90-130) L 06/28/25 19:38 Glucose 133 mg/dL (65-115) H 06/28/25 19:38 Calculated Osmolality 287 mOsm/kg (285-295) 06/28/25 19:38 Lactic Acid 1.9 mmol/L (0.5-2.2) 06/28/25 19:38 Calcium 8.5 mg/dL (8.5-10.5) 06/28/25 19:38 Total Bilirubin 0.5 mg/dL (0.15-1.2) 06/28/25 19:38 AST 9 U/L (0-32) 06/28/25 19:38 ALT 9 U/L (0-33) 06/28/25 19:38 Alkaline Phosphatase 100 U/L (35-105) 06/28/25 19:38 Troponin T Baseline 9 ng/L (0-10) 06/28/25 19:38 NT-Pro-B Natriuret Pep 378 pg/mL (0-125) H 06/28/25 19:38 Total Protein 6.1 g/dL (6.6-8.7) L 06/28/25 19:38 Albumin 3.8 g/dL (3.5-5.2) 06/28/25 19:38 Globulin 2.3 g/dL (1.3-4.6) 06/28/25 19: Procalcitonin 0.16 ng/mL (0-0.5) 06/28/25 20:15 Urine Color Yellow (Yellow) 06/28/25 20:45 Urine Appearance Clear (CLEAR) 06/28/25 20:45 Urine pH 5.5 (5-7) 06/28/25 20:45 Ur Specific [place] 1.024 (1.005-1.030) 06/28/25 20:45 Urine Protein Trace (Negative) A 06/28/25 20:45 Urine Glucose (UA) Negative (Normal) 06/28/25 20:45 Urine Ketones Negative (Negative) 06/28/25 20:45 Urine Blood Negative (Negative) 06/28/25 20:45 Urine Nitrate Negative (Negative) 06/28/25 20:45 Urine Bilirubin Negative (Negative) 06/28/25 20:45 Urine Urobilinogen 1.0 mg/dL (Negative) 06/28/25 20:45 Ur Leukocyte Esterase Negative (Negative) 06/28/25 20:45 Urine RBC 0-2 /hpf (0-2) 06/28/25 20:45 Urine WBC 0-5 /hpf (0-5) 06/28/25 20:45 Ur Squamous Epith Cells 0-5 /hpf (0-5) 06/28/25 20:45 Amorphous Sediment Not Reportable 06/28/25 20:45 Urine Bacteria None seen /hpf (NONE) 06/28/25 20:45 Hyaline Casts 1.65 /lpf 06/28/25 20:45 Influenza A (PCR) Negative (Negative) 06/28/25 19:38 Influenza Type B (PCR) Negative (Negative) 06/28/25 19:38 RSV (PCR) Negative (Negative) 06/28/25:38 SARS-CoV-2 (PCR) Negative (Negative) 06/28/25 19:38 All radiology interpretation(s) finalized by discharge Discharge Plan Discharge Patient Disposition: Admitted As Inpatient Clinical Impression: Small cell lung cancer, right upper lobe, Neutropenia, Chronic shortness of breath, Anemia, Cough with hemoptysis Condition: Stable Coding Level of Care Code ED 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
[2025-06-28 20:10] LABS: Lactic Sepsis W/Reflex 1.9 mmol/L (0.5-2.2)
[2025-06-28 20:12] LABS: Troponin(5th) Baseline 9 ng/L (0-10)
--- NOTE | 2025-06-28 20:15 | CTR_ITS ---
PROCEDURE INFORMATION: Exam: CTA Chest With Contrast Exam date and time: 06/28/2025 8:54 PM Age: 70 years old Clinical indication: Dyspnea; Prior surgery; Surgery date: 6+ months; Surgery type: Port placement; Additional info: Dyspnea, tachycardia, hemoptysis, known mass TECHNIQUE: Imaging protocol: Computed tomographic angiography of the chest with contrast. Exam focused on the arteries. 3D rendering (Not supervised by radiologist): MIP and/or 3D reconstructed images were created by the technologist. Radiation optimization: All CT scans at this facility use at least one of these dose optimization techniques: automated exposure control; mA and/or kV adjustment per patient size (includes targeted exams where dose is matched to clinical indication); or iterative reconstruction. Contrast material: OMNI 350; Contrast volume: 100 ml; Contrast route: INTRAVENOUS (IV); COMPARISON: 1. CT angio chest PE protcl [id number] 06/23/2025 11:[address] angio chest PE protcl [id number] 05/30/2025 12:22 PM 3. CR (CHEST, ) 06/28/2025 6:32 PM RADIATION DOSE METRICS: Total DLP (mGy-cm): 548.98 FINDINGS: Tubes, catheters and devices: Partially visualized left chest port terminates at the right atrium. Pulmonary arteries: No evidence of pulmonary emboli. Aorta: Mild systemic atherosclerosis without aortic aneurysm. No aortic dissection. Lungs: No significant interval change to known right upper lobe mass with associated bronchial and pulmonary arterial narrowing. Similar to slightly increased right basilar tree-in-bud nodularity. Mild shifting left upper lobe ground-glass opacities with interval clearing of left lower lobe. Pleural spaces: Unremarkable. No pneumothorax. No pleural effusion. Heart: Unremarkable. No cardiomegaly. No pericardial effusion. Lymph nodes: Grossly stable soft tissue mass at the lower posterior esophageal margin measuring up to 3.7 cm. Diaphragm: Small hiatal hernia. Bones/joints: No acute fracture. No aggressive osteolytic or blastic lesion. Mild degenerative changes along the spine. Soft tissues: Unremarkable. CT/CT angio chest PE protcl [id number] IMPRESSION: 1. Similar to slightly increased right basilar tree-in-bud nodularity. 2. Mild shifting left upper lobe ground-glass opacities with interval clearing of left lower lobe. Findings may be infectious or inflammatory. 3. No significant interval change to known right upper lung mass with associated bronchial and pulmonary arterial narrowing. 4. Soft tissue mass at the lower posterior esophageal margin is also grossly stable.
[2025-06-28 20:20] LABS: Alanine Aminotransferase 9 U/L (0-33); Albumin Level 3.8 g/dL (3.5-5.2); Alkaline Phosphatase 100 U/L (35-105); Anion Gap 17.6 (5-19); Aspartate Amino Transferase 9 U/L (0-32); Blood Urea Nitrogen 16 mg/dL (8-23); Calcium 8.5 mg/dL (8.5-10.5); Carbon Dioxide 23 mmol/L (22-29); Chloride 100 mmol/L (98-107); Creatinine Clr Calc Pharmacy 79.1352; Globulin 2.3 g/dL (1.3-4.6); Glucose 133 mg/dL (65-115); NT Pro B Type Natriuretic Pept 378 pg/mL (0-125); Osmolality Calculated 287 mOsm/kg (285-295); Potassium 3.6 mmol/L (3.5-5.1); Sodium 137 mmol/L (136-145); Total Protein 6.1 g/dL (6.6-8.7)
--- NOTE | 2025-06-28 20:21 | ECG_ITS ---
[facility]25[facility] Pat Name: Marli Eli Department: Room: Gender: Female Telephone Appointment Clerk: : [id number] Requested By: Sarah Toribio Order Number: [id number] Delgado MD: Marisa Butterfield M.D. Measurements Intervals Phelps Rate: 133 P: 43 MT: 116 QRS: 73 QRSD: 136 T: 46 QT: 324 QTc: 482 Interpretive Statements SINUS TACHYCARDIA WITH SHORT MT INTERVAL RIGHT BUNDLE BRANCH BLOCK [120+ ms QRS DURATION, UPRIGHT V1, 40+ ms S IN I/aVL/V4/V5/V6] Compared to ECG 06/28/2025 18:22:08 Short MT interval now present Electronically Signed On 06-29-2025 15:28:45 CDT by Marias Butterfield M.D. [id number]
[2025-06-28 20:23] LABS: Mean Corpuscular HGB Conc 33.2 g/dL (30-55); Mean Corpuscular Hemoglobin 30.6 pg (27-33); Mean Corpuscular Volume 92.2 fl (85-98); Platelet Count 52 10^3/cmm (157-399); Red Blood Count 2.06 10^6/uL (3.85-5.65); White Blood Count 1.26 10^3/uL (3.29-11.43)
[2025-06-28 20:28] LABS: Respiratory Syncytial Virus Ce NEGATIVE (Negative); SARS-CoV-2 PCR NEGATIVE (Negative)
[2025-06-28 21:10] LABS: Glucose Urine UA Negative (Normal); Nitrate Urine Negative (Negative); Specific Gravity, Urine 1.024 (1.005-1.030)
[2025-06-28 21:10] LABS: Procalcitonin 0.16 ng/mL (0-0.5)
[2025-06-28 21:12] LABS: Add Urine Microscopic? YES
[2025-06-28 21:18] LABS: Slide Review Slide Review Perform
[2025-06-28 21:19] LABS: Absolute Segmented Neutrophil 0.6 10/cmm (1.6-7.1); Band Neutrophils Absolute 0.1 10^3/cmm (0.0-1.2); Total Cells Counted 100 (0-100)
[2025-06-28 21:20] LABS: Atypical Lymphs 3.0 % (0-5); Hematocrit 19.0 % (36-47); Hemoglobin 6.30 g/dL (11.27-16.99)
[2025-06-28] MEDS: iohexol 350 mg/mL 500 mL Btl (per mL) IV (21:23)
[2025-06-28 21:34] LABS: UA Slide Review UA Slide Review Perf
[2025-06-28 21:55] VITALS: PULSE 129; RESP 22; O2SAT 95
[2025-06-28 22:28] LABS: Troponin 5 2HR 7.96 ng/L (0-10)
[2025-06-28 22:31] LABS: Troponin 5 2HR Delta -1.04 ABS# (0-10)
--- NOTE | 2025-06-28 23:51 | PM.HP ---
Providers/Chief Complaint Admitting Physician: Barbi Lemons MD--- seen and evaluated before 12 midnight Chief Complaint: SOB ox in 70s doc sent History of Present Illness Marli Eli is a 70 year old female with medical history significant for small cell lung cancer diagnosed about 2 years ago and has been undergoing therapy for care in the hands of oncologist. Patient was diagnosed July 2023 and did not start treatment till October 2023 as patient told me. Patient presented with acute respiratory failure on chronic. Patient is already at home on BiPAP and on oxygen. Upon evaluation of the patient in the emergency room it was noted that the patient has a right upper lobe pneumonia and also lab work were significant for pancytopenia. This is not surprising as patient had just gotten the last chemo just 4 days ago on Wednesday. All cell lines were low -white count 1.26/hemoglobin 6.3/platelets 52. Chest CT did not show any PE. Patient was pancultured from the blood and was given a dose of vancomycin and a dose of cefepime in the emergency room. And these antibiotics have been continued to cover essentially the gram-negative patient is quite immunosuppressed. Patient is receiving active chemotherapy. Review of Systems Narrative: System review were significant for musculoskeletal weakness and respiratory failure Medications/Allergies Home Medications ?Medication ?Instructions ?Recorded ?Confirmed ?Last Taken ?Type insulin lispro 100 unit/mL See Rx Instructions SUBCUT TID PRN 08/02/23 06/19/25 02/04/25 08:00 History subcutaneous pen (Humalog KwikPen blood sugar (U-100) Insulin) dulaglutide 3 mg/0.5 mL 3 mg SUBCUT Q7D 03/22/24 06/19/25 05/24/25 History subcutaneous pen injector (Trulicity) levothyroxine 25 mcg tablet 25 mcg PO QAM 03/22/24 06/19/25 05/30/25 History doxepin 25 mg capsule 50 mg PO BEDTIME 05/29/24 06/19/25 05/29/25 History latanoprost 0.005 % eye drops 1 drp ophthalmic (eye) BEDTIME 05/29/24 06/19/25 05/29/25 History ubrogepant 50 mg tablet 50 mg PO 1XD PRN Migraine Headache 02/05/25 06/19/25 Unknown History pantoprazole 40 mg tablet,delayed 40 mg PO BID #180 tabs 02/06/25 06/19/25 05/30/25 Rx release arformoterol 15 mcg/2 mL solution 2 ml inhalation DAILY 02/19/25 06/19/25 05/30/25 History for nebulization cholecalciferol (vitamin D3) 125 125 mcg PO DAILY 02/19/25 06/19/25 05/30/25 History mcg (5,000 unit) capsule loratadine 10 mg capsule (Allergy 10 mg PO DAILY 02/19/25 06/19/25 05/30/25 History Relief (loratadine)) albuterol sulfate 90 mcg/actuation 2 inh inhalation Q4H PRN shortness 05/21/25 06/19/25 Unknown Rx aerosol inhaler of breath or wheezing #6.7 grams atorvastatin 10 mg tablet 10 mg PO DAILY 90 days #90 tabs 05/24/25 06/19/25 05/29/25 Rx bumetanide 1 mg tablet 1 mg PO DAILY 05/24/25 06/19/25 05/30/25 History metoprolol tartrate 25 mg tablet 25 mg PO DAILY 90 days #90 tabs 05/24/25 06/19/25 05/30/25 Rx gabapentin 300 mg capsule 300 mg PO BID #60 caps 05/28/25 06/19/25 05/30/25 Rx aspirin 81 mg tablet,delayed 81 mg PO DAILY 05/30/25 06/19/25 05/30/25 History release lactulose 10 gram/15 mL oral See Rx Instructions .Route 05/30/25 06/19/25 Unknown History solution .COMPLEX PRN constipation ondansetron HCl 4 mg tablet 4 mg PO Q6H PRN Nausea And Vomiting 05/30/25 06/19/25 Unknown History prochlorperazine maleate 10 mg 10 mg PO Q4H PRN mild nausea 05/30/25 06/19/25 Unknown History tablet hydrocodone 5 mg-acetaminophen 325 1 tab PO Q6H PRN pain 30 days #120 06/20/25 Unknown Rx mg tablet tabs Allergies Allergy/AdvReac Type Severity Reaction Status Date / Time codeine Allergy Unknown ADR-Nausea Verified 06/19/25 09:30 adhesive tape Allergy ALGY-Bliste Verified 06/19/25 09:30 r ketorolac (From Toradol) Allergy Unknown Verified 06/19/25 09:30 melatonin Allergy ADR-Nausea Verified 06/19/25 09:30 PFSH Acute PFSH: Medical History Chemotherapy induced neutropenia History of cataract cataract left eye 09/20 right eye 12/20 Chronic constipation 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 Pleuritic chest pain Chronic hypoxemic respiratory failure Small cell lung cancer Nicotine use disorder PTSD (post-traumatic stress disorder) Bipolar disorder current episode depressed History of attempted suicide Hypothyroidism (acquired) Duodenitis Gastritis Sleep apnea Obesity Bipolar affect, depressed Depression Hypertension Diabetes Oxygen dependent CHF (congestive heart failure) GERD (gastroesophageal reflux disease) COPD (chronic obstructive pulmonary disease) 3L o2 , mild to mod copd responsive to bronchodilator Enrolled in chronic care management Surgical History History of appendectomy H/O colonoscopy with polypectomy H/O esophagogastroduodenoscopy Tubal ligation status S/P cholecystectomy Family History Father Lung cancer Sister Ovarian cancer Mother Diabetes Other CAD (coronary artery disease) Social History Smoking and tobacco/nicotine status: current every day tobacco/nicotine user cigarettes Packs smoked per day: 1 Years cigarettes smoked: 37 [ Other cigarette details: She had quit smoking for 8 months, but then started again.] Alcohol intake: former Year of sobriety/quit date alcohol: 1999 Substance/Drug Use: never Additional social history: She lives alone and states she drives herself to her chemo. She wants full CODE STATUS as discussed today with Fredi Curry MD on 02/05/2025 Adopted: No Caregiver/support person: No Lives independently: No Household members: family Housing: House Current gender identity: Female Vitals/I&O/Wt Last Vital Signs Temp 98.6 F 06/28/25 18:21 Pulse 129 H 06/28/25 21:55 Resp 22 H 06/28/25 21:55 BP 137/75 06/28/25 18:21 Pulse Ox 95 06/28/25 21:55 O2 Del Method Nasal Cannula 10/23/25 21:55 O2 Flow Rate 5 06/28/25 21:55 Weight last 48 hrs Weight 110.223 kg Physical Exam Narrative: General The patient does not look ill-appearing and does not look weak very pleasant and had good way of expressing herself. Patient is gentle with cam disposition HEENT normocephalic atraumatic neck neck is supple cardiovascular heart rate is regular lungs are pretty much clear abdomen soft nontender nondistended unremarkable extremities are intact no edema has good pulses neurology he has no focality lab studies lab studies reviewed and noted. Data 06/28/25 20:15 06/28/25 19:38 Micro: Microbiology 06/28/25 19:32 Blood Culture - Preliminary Blood SPECIMEN COLLECTED 06/28/25 20:15 Blood Culture - Preliminary Blood SPECIMEN COLLECTED A&P Assessment and plan 1. Right upper lobe pneumonia: 2. Cough with hemoptysis: 3. Anemia: 4. Chronic shortness of breath: 5. Neutropenia: 6. Small cell lung cancer, right upper lobe: 7. Cancer-related pain: 8. Pancytopenia: Plan: #1 Right upper lobe pneumonia -Admit to stepdown unit - Patient pancultured - Antibiotics initiated from emergency room - Patient on vancomycin and cefepime - Continue nebulizing treatment - Continue steroid therapy because of associated bronchial spasm #2 Small cell lung cancer with active chemotherapy - Last chemotherapy only 4 days ago - Patient at this time not surprising had pancytopenia - Continue to treat and optimize #3 Critical low hemoglobin at 6.3 - Patient received 1 unit of packed red blood cell - 40 mg of IV Lasix given to avoid any volume overload - Follow H&H this morning #4 Patient with thrombocytopenia and leukopenia - Monitor - Optimize Reanne need be #5 Respiratory failure - Continue antibiotics - Supplemental oxygen support - BiPAP at naptime/bedtime - Nebulizing treatment - Steroid therapy #6 GI and DVT prophylaxis in place PDMP PDMP Reviewed: Not Reviewed Attestations Medical Necessity Statement*: Patient is immunosuppressed active chemotherapy and respiratory failure with pneumonia and underlining COPD exacerbation does need a minimum of 2 midnights to optimize care Coding Level of Care Code Acute Code for Chg Fwd Diagnoses Right upper lobe pneumonia J18.9 Cough with hemoptysis R04.2 Anemia D64.9 Chronic shortness of breath R06.02 Neutropenia D70.9 Small cell lung cancer, right upper lobe C34.11 Cancer-related pain G89.3 Pancytopenia D61.818 Time Spent (min) 60
[2025-06-28] MEDS: cefepime 2,000 mg SDV 2000 MG IVP (23:58)
[2025-06-28] MEDS: vancomycin 1,750 MG/350 ML PIGGYBACK 175 MG IV (23:58)
[2025-06-29] VITALS (28 sets, daily range): BP systolic 92–137; BP diastolic 62–87; PULSE 99–117; RESP 16–25; TEMP 36.2–36.9; O2SAT 93–100
--- NOTE | 2025-06-29 00:15 | ECG_ITS ---
[facility]: 2025-[facility]29 Pat Name: Marli Eli Department: Room: ED Gender: Female Machine Engineer: : [id number] Requested By: Sarah Toribio Order Number: [id number] Delgado MD: Marisa Butterfield M.D. Measurements Intervals [place] Rate: 110 P: 46 WI: 160 QRS: 39 QRSD: 141 T: 30 QT: 367 QTc: 498 Interpretive Statements SINUS TACHYCARDIA WITH FREQUENT SUPRAVENTRICULAR PREMATURE COMPLEXES RIGHT BUNDLE BRANCH BLOCK [120+ ms QRS DURATION, UPRIGHT V1, 40+ ms S IN I/aVL/V4/V5/V6] Compared to ECG 06/28/2025 20:21:34 Short WI interval no longer present Electronically Signed On 06-29-2025 15:27:54 CDT by Marisa Butterfield M.D. [email or web address] [id number]
[2025-06-29] MEDS: heparin 5,000 unit/mL INJ 1 mL 5000 UNIT SUBCUT (03:25)
[2025-06-29] MEDS: methylPREDNISolone sod succ 40 mg/mL INJ IVP ×3 (03:25→20:47)
[2025-06-29] MEDS: FUROsemide 10 mg/mL SDV 4mL 40 MG IVP (03:25)
--- OUTSIDE RECORDS SUMMARY | 2025-06-29 07:19 | XMS_ITS | Clinical Summary ---
Author Organization [facility] Address [address] [place] [address] Care Team Providers Care Board Filler Name Role Phone Radha Xiong MD Primary Care Provider [phone] Allergies Active Allergy Reactions Criticality Noted Date [...] 1 tablet (25 mcg total) by mouth tank officer before breakfast 01/05/20 24 Active losartan (COZAAR) [...] of Phone Billing Address Personal/Family Self [address] [place] [id number] [place] [employer] H[employer] PPO Advance Directives For more information, please contact: [phone] * Full Code (Latest Code Status on File) Date Activated Date Inactivated Comments 03/22/2024 10:33 PM 03/29/2024 5:09 PM Care Teams Board Filler Relationship Specialty Start Date End Date Radha Xiong MD [address] [place] [address] PCP - General Family Medicine 03/22/24
--- NOTE | 2025-06-29 08:44 | PHA.VACGOAL ---
Vancomycin Goal - Goal Vancomycin Goal:: 15-20 mg/L Vancomycin Indication:: Pneumonia - Therapy Current therapy:: Cefepime Day of therpy:: Day []of [] . Actual body weight (kg): 239 lb 9.6 oz - Data Labs: WBC 1.26 10^3/uL (3.29-11.43) L 06/28/25 20:15 Corrected WBC Cancelled 06/28/25 19:38 RBC 2.06 10^6/uL (3.85-5.65) L 06/28/25 20:15 Hgb 6.30 g/dL (11.27-16.99) L* 06/28/25 20:15 Hct 19.0 % (36-47) L* 06/28/25 20:15 MCV 92.2 fl (85-98) 06/28/25 20:15 MCH 30.6 pg (27-33) 06/28/25 20:15 MCHC 33.2 g/dL (30-55) 06/28/25 20:15 RDW 14.7 % (12.1-15.1) 06/28/25 20:15 Sodium 137 mmol/L (136-145) 06/28/25 19:38 Potassium 3.6 mmol/L (3.5-5.1) 06/28/25 19:38 Chloride 100 mmol/L (98-107) 06/28/25 19:38 Carbon Dioxide 23 mmol/L (22-29) 06/28/25 19:38 Anion Gap 17.6 (5-19) 06/28/25 19:38 BUN 16 mg/dL (8-23) 06/28/25 19:38 Creatinine 0.7 mg/dL (0.5-0.9) 06/28/25 19:38 GFR Calculation 83.0 mL/min (90-130) L 06/28/25 19:38 Last dialysis session:: N/A Treatment plan:: new consult Regimen:: INITIAL LOADING DOSE OF 1750 MG X 1. STARTED ON MAINTENANCE DOSE OF 1750 MG Q12H PER DOSING PROTOCOL. Follow up:: WILL CONTINUE TO MONITOR AND FOLLOW UP DAILY.
--- NOTE | 2025-06-29 08:50 | PC.SOCIAL ---
IMM Update pg 2 of IMM Updated and reviewed w/ patient. Copy provided and copy dated, initialed and placed in chart.
[2025-06-29 09:06] LABS: Hematocrit 22.4 % (36-47); Hemoglobin 7.30 g/dL (11.27-16.99); Mean Corpuscular HGB Conc 32.6 g/dL (30-55); Mean Corpuscular Hemoglobin 29.9 pg (27-33); Mean Corpuscular Volume 91.8 fl (85-98); Platelet Count 54 10^3/cmm (157-399); Red Blood Count 2.44 10^6/uL (3.85-5.65); White Blood Count 1.93 10^3/uL (3.29-11.43)
[2025-06-29 09:23] LABS: Troponin 5 6HR 6.54 ng/L (0-10)
[2025-06-29 09:24] LABS: Alanine Aminotransferase 9 U/L (0-33); Albumin Level 4.1 g/dL (3.5-5.2); Alkaline Phosphatase 105 U/L (35-105); Anion Gap 18.5 (5-19); Aspartate Amino Transferase 8 U/L (0-32); Blood Urea Nitrogen 14 mg/dL (8-23); Calcium 9.0 mg/dL (8.5-10.5); Carbon Dioxide 22 mmol/L (22-29); Chloride 100 mmol/L (98-107); Globulin 2.3 g/dL (1.3-4.6); Glucose 224 mg/dL (65-115); Magnesium 2.0 mg/dL (1.7-2.3); Osmolality Calculated 291 mOsm/kg (285-295); Potassium 3.5 mmol/L (3.5-5.1); Sodium 137 mmol/L (136-145); Total Protein 6.4 g/dL (6.6-8.7)
[2025-06-29 09:48] LABS: Absolute Segmented Neutrophil 0.9 10/cmm (1.6-7.1); Atypical Lymphs 8.0 % (0-5); Band Neutrophils Absolute 0.5 10^3/cmm (0.0-1.2); Slide Review Slide Review Perform; Total Cells Counted 25 (0-100)
[2025-06-29 09:52] LABS: Troponin 5 6HR Delta -2.46 ng/L (0-12)
--- NOTE | 2025-06-29 10:00 | PC.NURSE ---
Re-access Michelle Cath Resistance noted when flushing the michelle cath. Blood return is sluggish. Re-access with a new michelle cath with a Power Loc needle via aseptic technique, skin is scrubbed with chloraprep, mask provided to pt. Blood return is patent, flushed with saline without any resistance. Tegaderm transparent dressing change. dated and initialed.Pt tolerated well.
[2025-06-29 10:18] LABS: MRSA PCR OZH (swab) NOT DETECTED (Not Detecte)
[2025-06-29] MEDS: HYDROcodone-acetaminophen 5-325 mg Tablet 1 TAB PO ×3 (10:59→21:51)
[2025-06-29] MEDS: cefepime 1,000 mg SDV 1000 MG IVP (12:30)
[2025-06-29] MEDS: Fleet Enema 133 mL Enema PR (12:31)
[2025-06-29] MEDS: vancomycin 1,750 MG/350 ML PIGGYBACK 175 MG IV (14:37)
--- NOTE | 2025-06-29 16:30 | P.PN_ITS ---
Subjective 2 Subjective: Patient was seen this morning, does report a cough, fatigue, malaise, no nausea, no vomiting, no new rashes, no lightheadedness, no dizziness Vitals/I&O/Wt Last Vital Signs Temp 98.0 F 06/29/25 16:20 Pulse 112 H 06/29/25 16:20 Resp 22 H 06/29/25 16:20 BP 92/62 06/29/25 16:20 Pulse Ox 96 06/29/25 16:20 O2 Del Method Nasal Cannula 06/29/25 16:00 O2 Flow Rate 4 06/29/25 16:00 FiO2 35 06/29/25 11:17 06/29/25 06/29/25 06/29/25 06:59 14:59 22:59 Intake Total 1100 / 1100 300 / 300 0 / 300 Balance 1100 / 1100 300 / 300 0 / 300 Weight last 48 hrs Weight 108.681 kg Weight 110.223 kg Physical Exam 2 Const: COMMON NORMALS: no acute distress and patient oriented x3 Eye: COMMON NORMALS: Equal, round and reactive pupils present PUPIL: Yes Equal, round and reactive pupils present Resp: COMMON NORMALS: normal respiratory effort, No retractions and No use of accessory muscles AUSCULTATION: crackles and wheezes Cardio: COMMON NORMALS: regular rate, regular rhythm, S1 normal heart sound present and S2 normal heart sound present RATE: regular rate RHYTHM: r egular rhythm HEART SOUNDS: S1 normal heart sound present and S2 normal heart sound present GI: COMMON NORMALS: Normal to inspection, nondistended, normoactive bowel sounds present and non-tender Extremity: COMMON NORMALS: no pedal edema Neuro: COMMON NORMALS: patient oriented x3 and CN's II-XII intact bilaterally Psych: COMMON NORMALS: mental status grossly normal Data 06/29/25 08:46 06/29/25 08:46 Micro: Microbiology 06/28/25 19:32 Blood Culture - Preliminary Blood SPECIMEN COLLECTED 06/28/25 20:15 Blood Culture - Preliminary Blood SPECIMEN COLLECTED A&P Assessment and plan 1. Right upper lobe pneumonia: 2. Cough with hemoptysis: 3. Anemia: 4. Chronic shortness of breath: 5. Neutropenia: 6. Small cell lung cancer, right upper lobe: 7. Cancer-related pain: 8. Pancytopenia: Plan: #1 Right upper lobe pneumonia - CT/CT angio chest PE protcl [id number] IMPRESSION: 1. Similar to slightly increased right basilar tree-in-bud nodularity. 2. Mild shifting left upper lobe ground-glass opacities with interval clearing of left lower lobe. Findings may be infectious or inflammatory. 3. No significant interval change to known right upper lung mass with associated bronchial and pulmonary arterial narrowing. 4. Soft tissue mass at the lower posterior esophageal margin is also grossly stable. - Plan -Vancomycin -Cefepime - Monitor blood cultures #2 Small cell lung cancer with active chemotherapy #3 Pancytopenia - Received another unit of PRBC, a total of 2 units so far - Follow H&H this morning #4 Right upper lobe pneumonia, respiratory failure - Continue antibiotics - Supplemental oxygen support #5 GI DVT prophylaxis currently on hold given anemia, SCD's PDMP PDMP Reviewed: Not Reviewed Attestations 2 Medical Necessity Statement*: Patient requires hospitalization for right upper lobe pneumonia, pancytopenia Diagnoses Right upper lobe pneumonia J18.9 Cough with hemoptysis R04.2 Anemia D64.9 Chronic shortness of breath R06.02 Neutropenia D70.9 Small cell lung cancer, right upper lobe C34.11 Cancer-related pain G89.3 Pancytopenia D61.818
[2025-06-29 20:20] LABS: Hematocrit 22.8 % (36-47); Hemoglobin 7.90 g/dL (11.27-16.99); Mean Corpuscular HGB Conc 34.6 g/dL (30-55); Mean Corpuscular Hemoglobin 31.3 pg (27-33); Mean Corpuscular Volume 90.5 fl (85-98); Nucleated Red Blood Cells % 0 %; Platelet Count 42 10^3/cmm (157-399); Red Blood Count 2.52 10^6/uL (3.85-5.65); White Blood Count 3.06 10^3/uL (3.29-11.43)
[2025-06-29 20:43] LABS: Slide Review Slide Review Perform
[2025-06-30] VITALS (92 sets, daily range): BP systolic 88–160; BP diastolic 60–97; PULSE 96–143; RESP 13–33; TEMP 36.2–36.8; O2SAT 72–100; BMI 43.9
[2025-06-30] MEDS: cefepime 1,000 mg SDV 1000 MG IVP (00:57)
[2025-06-30] MEDS: vancomycin 1,750 MG/350 ML PIGGYBACK 175 MG IV (00:57)
[2025-06-30 03:50] LABS: Hemoglobin 7.10 g/dL (11.27-16.99); Mean Corpuscular HGB Conc 34.1 g/dL (30-55); Mean Corpuscular Hemoglobin 31.0 pg (27-33); Mean Corpuscular Volume 90.8 fl (85-98); Nucleated Red Blood Cells % 0 %; Platelet Count 32 10^3/cmm (157-399); Red Blood Count 2.29 10^6/uL (3.85-5.65); White Blood Count 2.05 10^3/uL (3.29-11.43)
[2025-06-30 04:02] LABS: INR 1.00 (0.8-1.2); Prothrombin Time 13.90 SECONDS (12.1-14.9)
[2025-06-30 04:13] LABS: Alanine Aminotransferase 8 U/L (0-33); Albumin Level 3.3 g/dL (3.5-5.2); Alkaline Phosphatase 95 U/L (35-105); Anion Gap 16.8 (5-19); Aspartate Amino Transferase 5 U/L (0-32); Blood Urea Nitrogen 20 mg/dL (8-23); Calcium 8.6 mg/dL (8.5-10.5); Carbon Dioxide 21 mmol/L (22-29); Chloride 100 mmol/L (98-107); Globulin 2.3 g/dL (1.3-4.6); Glucose 287 mg/dL (65-115); Osmolality Calculated 291 mOsm/kg (285-295); Potassium 3.8 mmol/L (3.5-5.1); Sodium 134 mmol/L (136-145); Total Protein 5.6 g/dL (6.6-8.7)
[2025-06-30 04:24] LABS: Slide Review Slide Review Perform
[2025-06-30 04:28] LABS: Hematocrit 20.8 % (36-47)
[2025-06-30] MEDS: insulin glargine 100 units/1 mL 10 UNIT SUBCUT (08:59)
[2025-06-30] MEDS: HYDROcodone-acetaminophen 5-325 mg Tablet 1 TAB PO ×2 (09:40→15:25)
[2025-06-30] MEDS: methylPREDNISolone sod succ 40 mg/mL INJ IVP ×2 (10:10→22:07)
[2025-06-30] MEDS: piperacillin-tazobactam 3.375 GM in sodium chloride 0.9% (plus) 50 ML IV ×2 (10:10→17:20)
[2025-06-30] MEDS: FUROsemide 10 mg/mL SDV 2mL 20 MG IVP (10:11)
[2025-06-30 10:22] LABS: NT Pro B Type Natriuretic Pept 684 pg/mL (0-125)
--- NOTE | 2025-06-30 10:34 | PC.NURSE ---
dr whitehead has ordered pt to be moved to icu 10 for closer observation of resp status.report phoned to bj in icu.transferred to icu 10 at this time via bed.
[2025-06-30] MEDS: vancomycin 1,750 MG/350 ML PIGGYBACK 300 MG IV (12:21)
--- NOTE | 2025-06-30 15:09 | P.PN_ITS ---
Subjective 2 Subjective: Patient was seen this morning, she does report shortness of breath, requiring BiPAP, mild suprasternal intercostal retractions, tachypnea, tachycardia, does report a cough, no chest pain, palpitations, discussed moving to the ICU for close monitoring, she is in agreement, Vitals/I&O/Wt Last Vital Signs Temp 97.8 F 06/30/25 10:11 Pulse 112 H 06/30/25 14:03 Resp 21 H 06/30/25 14:03 BP 115/72 06/30/25 14:03 Pulse Ox 95 06/30/25 14:03 O2 Del Method Nasal Cannula 06/30/25 11:32 O2 Flow Rate 2 06/30/25 11:32 FiO2 35 06/30/25 08:59 06/30/25 06/30/25 06/30/25 06:59 14:59 22:59 Intake Total 350 / 1470 870 / 870 Balance 350 / 1470 870 / 870 Weight last 48 hrs Weight 112.4 kg Weight 108.681 kg Weight 110.223 kg Physical Exam 2 Const: COMMON NORMALS: no acute distress and patient oriented x3 Resp: COMMON NORMALS: normal respiratory effort, No retractions and No use of accessory muscles AUSCULTATION: crackles and wheezes OTHER: Suprasternal retractions, intercostal retractions, nasal flaring Cardio: COMMON NORMALS: regular rate, regular rhythm, S1 normal heart sound present and S2 normal heart sound present RATE: regular rate RHYTHM: r egular rhythm HEART SOUNDS: S1 normal heart sound present and S2 normal heart sound present GI: COMMON NORMALS: Normal to inspection, nondistended, normoactive bowel sounds present, Soft to palpation and non-tender PALPATION: Yes Soft to palpation Extremity: COMMON NORMALS: no pedal edema Neuro: COMMON NORMALS: patient oriented x3, CN's II-XII intact bilaterally and moves all extremities Psych: COMMON NORMALS: mental status grossly normal Data 06/30/25 03:02 06/30/25 03:02 Micro: Microbiology 06/29/25 11:48 Gram Stain - Final Sputum - Expectorated Sputum Sputum Culture - Preliminary Gram Negative Rods 06/28/25 19:32 Blood Culture - Preliminary Blood NEGATIVE TO DATE 06/28/25 20:15 Blood Culture - Preliminary Blood NEGATIVE TO DATE A&P Assessment and plan 1. Right upper lobe pneumonia: 2. Cough with hemoptysis: 3. Anemia: 4. Chronic shortness of breath: 5. Neutropenia: 6. Small cell lung cancer, right upper lobe: 7. Cancer-related pain: 8. Pancytopenia: Plan: #1 Right upper lobe pneumonia, with acute hypoxic respiratory failure - CT/CT angio chest PE protcl [id number] IMPRESSION: 1. Similar to slightly increased right basilar tree-in-bud nodularity. 2. Mild shifting left upper lobe ground-glass opacities with interval clearing of left lower lobe. Findings may be infectious or inflammatory. 3. No significant interval change to known right upper lung mass with associated bronchial and pulmonary arterial narrowing. 4. Soft tissue mass at the lower posterior esophageal margin is also grossly stable. - Plan -Vancomycin - Zosyn - Monitor blood cultures #2 Small cell lung cancer with active chemotherapy #3 Pancytopenia -Cancer related pancytopenia -Chemotherapy associated pancytopenia - Anemia, status post 2 units PRBC, hemoglobin 7.1 will give 1 more unit PRBC -Thrombocytopenia platelet count 32,001 unit platelet -Neutropenia monitor - Repeat CBC this afternoon #4 Right upper lobe pneumonia, respiratory failure - Continue antibiotics - Supplemental oxygen support #5 GI DVT prophylaxis currently on hold given anemia, SCD's PDMP PDMP Reviewed: Not Reviewed Attestations 2 Medical Necessity Statement*: Patient requires hospitalization for acute hypoxic respiratory failure secondary pneumonia, pancytopenia Diagnoses Right upper lobe pneumonia J18.9 Cough with hemoptysis R04.2 Anemia D64.9 Chronic shortness of breath R06.02 Neutropenia D70.9 Small cell lung cancer, right upper lobe C34.11 Cancer-related pain G89.3 Pancytopenia D61.818
[2025-06-30] MEDS: polyethylene glycol 3350 Pkt 17 gm PO (17:21)
[2025-06-30 17:47] LABS: Hematocrit 26.4 % (36-47); Hemoglobin 8.90 g/dL (11.27-16.99); Mean Corpuscular HGB Conc 33.7 g/dL (30-55); Mean Corpuscular Hemoglobin 30.1 pg (27-33); Mean Corpuscular Volume 89.2 fl (85-98); Nucleated Red Blood Cells % 0 %; Red Blood Count 2.96 10^6/uL (3.85-5.65); White Blood Count 4.52 10^3/uL (3.29-11.43)
[2025-06-30 17:50] LABS: Platelet Count 61 10^3/cmm (157-399)
--- NOTE | 2025-06-30 18:20 | PC.NURSE ---
up in recliner here after transfer on o2 per nc, continue transfusion via port, iv site left arm infiltarted on transfer unable to start other site, antibotics given after prbc and then platlets given .
[2025-07-01] VITALS (54 sets, daily range): BP systolic 105–160; BP diastolic 66–107; PULSE 80–127; RESP 12–30; TEMP 36.4–36.7; O2SAT 75–100
[2025-07-01] MEDS: vancomycin 1,750 MG/350 ML PIGGYBACK 175 MG IV ×2 (00:05→17:20)
[2025-07-01] MEDS: piperacillin-tazobactam 3.375 GM in sodium chloride 0.9% (plus) 50 ML IV ×2 (02:14→09:25)
[2025-07-01 05:06] LABS: Hematocrit 27.0 % (36-47); Hemoglobin 9.00 g/dL (11.27-16.99); Mean Corpuscular HGB Conc 33.3 g/dL (30-55); Mean Corpuscular Hemoglobin 29.8 pg (27-33); Mean Corpuscular Volume 89.4 fl (85-98); Nucleated Red Blood Cells % 0 %; Platelet Count 53 10^3/cmm (157-399); Red Blood Count 3.02 10^6/uL (3.85-5.65); White Blood Count 4.80 10^3/uL (3.29-11.43)
[2025-07-01] MEDS: HYDROcodone-acetaminophen 5-325 mg Tablet 1 TAB PO ×2 (05:25→20:13)
[2025-07-01 05:28] LABS: INR 0.97 (0.8-1.2); Prothrombin Time 13.50 SECONDS (12.1-14.9)
[2025-07-01 05:39] LABS: Alanine Aminotransferase 9 U/L (0-33); Albumin Level 3.5 g/dL (3.5-5.2); Alkaline Phosphatase 91 U/L (35-105); Anion Gap 17.2 (5-19); Aspartate Amino Transferase 6 U/L (0-32); Blood Urea Nitrogen 21 mg/dL (8-23); Calcium 8.7 mg/dL (8.5-10.5); Carbon Dioxide 24 mmol/L (22-29); Chloride 101 mmol/L (98-107); Globulin 2.1 g/dL (1.3-4.6); Glucose 213 mg/dL (65-115); Osmolality Calculated 295 mOsm/kg (285-295); Potassium 4.2 mmol/L (3.5-5.1); Sodium 138 mmol/L (136-145); Total Protein 5.6 g/dL (6.6-8.7)
[2025-07-01 06:06] LABS: Slide Review Slide Review Perform
[2025-07-01 06:13] LABS: NT Pro B Type Natriuretic Pept 1697 pg/mL (0-125); Procalcitonin 0.09 ng/mL (0-0.5)
--- NOTE | 2025-07-01 08:30 | PC.NURSE ---
daughter called attempt to return call no answer
[2025-07-01] MEDS: methylPREDNISolone sod succ 40 mg/mL INJ IVP (11:12)
[2025-07-01] MEDS: lactulose oral liq 20 gm/30 mL UDC PO ×3 (11:12→17:24)
--- NOTE | 2025-07-01 15:29 | P.PN_ITS ---
Subjective 2 Subjective: Patient was seen this morning, currently alert oriented x 3, following all commands, does report shortness of breath, does report cough, does report wheezing Vitals/I&O/Wt Last Vital Signs Temp 97.5 F L 07/01/25 04:00 Pulse 80 07/01/25 14:59 Resp 23 H 07/01/25 12:00 BP 135/85 07/01/25 12:00 Pulse Ox 99 07/01/25 12:00 O2 Del Method Nasal Cannula 07/01/25 11:23 O2 Flow Rate 2 07/01/25 11:23 FiO2 35 06/30/25 23:50 07/01/25 07/01/25 07/01/25 06:59 14:59 22:59 Intake Total 400 / 1785 300 / 300 Balance 400 / 1785 300 / 300 Weight last 48 hrs Weight 111.13 kg Weight 112.4 kg Physical Exam 2 Const: COMMON NORMALS: no acute distress and patient oriented x3 Resp: COMMON NORMALS: normal respiratory effort, No retractions and No use of accessory muscles AUSCULTATION: crackles and wheezes Cardio: COMMON NORMALS: regular rate, regular rhythm, S1 normal heart sound present and S2 normal heart sound present RATE: regular rate RHYTHM: r egular rhythm HEART SOUNDS: S1 normal heart sound present and S2 normal heart sound present GI: COMMON NORMALS: Normal to inspection, nondistended, normoactive bowel sounds present and non-tender Extremity: COMMON NORMALS: no pedal edema Neuro: COMMON NORMALS: patient oriented x3 Psych: COMMON NORMALS: mental status grossly normal Data 07/01/25 04:11 07/01/25 04:11 Micro: Microbiology 06/29/25 11:48 Gram Stain - Final Sputum - Expectorated Sputum Sputum Culture - Final Pseudomonas aeruginosa A&P Assessment and plan 1. Right upper lobe pneumonia: 2. Cough with hemoptysis: 3. Anemia: 4. Chronic shortness of breath: 5. Neutropenia: 6. Small cell lung cancer, right upper lobe: 7. Cancer-related pain: 8. Pancytopenia: Plan: #1 Right upper lobe pneumonia, with acute hypoxic respiratory failure - CT/CT angio chest PE protcl [id number] IMPRESSION: 1. Similar to slightly increased right basilar tree-in-bud nodularity. 2. Mild shifting left upper lobe ground-glass opacities with interval clearing of left lower lobe. Findings may be infectious or inflammatory. 3. No significant interval change to known right upper lung mass with associated bronchial and pulmonary arterial narrowing. 4. Soft tissue mass at the lower posterior esophageal margin is also grossly stable. - Plan -Vancomycin - IV Levaquin - Monitor blood cultures #2 Small cell lung cancer with active chemotherapy #3 Pancytopenia -Cancer related pancytopenia -Chemotherapy associated pancytopenia - Anemia, status post 2 units PRBC, hemoglobin 7.1 will give 1 more unit PRBC -Thrombocytopenia platelet count 32,001 unit platelet -Neutropenia monitor - Repeat CBC this afternoon #4 Right upper lobe pneumonia, respiratory failure - Continue antibiotics - Supplemental oxygen support #5 GI DVT prophylaxis currently on hold given anemia, SCD's PDMP PDMP Reviewed: Not Reviewed Attestations 2 Medical Necessity Statement*: Requires hospitalization for Pseudomonas pneumonia Diagnoses Right upper lobe pneumonia J18.9 Cough with hemoptysis R04.2 Anemia D64.9 Chronic shortness of breath R06.02 Neutropenia D70.9 Small cell lung cancer, right upper lobe C34.11 Cancer-related pain G89.3 Pancytopenia D61.818
[2025-07-01] MEDS: levofloxacin-dextrose 5 % 750 MG/150 ML PREMIX 100 MG IV (15:51)
[2025-07-02] VITALS (52 sets, daily range): BP systolic 105–155; BP diastolic 64–118; PULSE 94–123; RESP 16–30; TEMP 36.3–36.8; O2SAT 81–100; BMI 43.7
[2025-07-02] MEDS: methylPREDNISolone sod succ 40 mg/mL INJ IVP ×3 (00:43→22:55)
[2025-07-02 04:54] LABS: Hematocrit 25.7 % (36-47); Hemoglobin 8.80 g/dL (11.27-16.99); Mean Corpuscular HGB Conc 34.2 g/dL (30-55); Mean Corpuscular Hemoglobin 30.6 pg (27-33); Mean Corpuscular Volume 89.2 fl (85-98); Nucleated Red Blood Cells % 0 %; Platelet Count 31 10^3/cmm (157-399); Red Blood Count 2.88 10^6/uL (3.85-5.65); White Blood Count 3.28 10^3/uL (3.29-11.43)
[2025-07-02 05:03] LABS: INR 0.97 (0.8-1.2); Prothrombin Time 13.60 SECONDS (12.1-14.9)
[2025-07-02 05:15] LABS: Alanine Aminotransferase 8 U/L (0-33); Albumin Level 3.6 g/dL (3.5-5.2); Alkaline Phosphatase 97 U/L (35-105); Anion Gap 17.9 (5-19); Aspartate Amino Transferase 5 U/L (0-32); Blood Urea Nitrogen 17 mg/dL (8-23); Calcium 8.6 mg/dL (8.5-10.5); Carbon Dioxide 22 mmol/L (22-29); Chloride 100 mmol/L (98-107); Globulin 1.7 g/dL (1.3-4.6); Glucose 237 mg/dL (65-115); Osmolality Calculated 291 mOsm/kg (285-295); Potassium 3.9 mmol/L (3.5-5.1); Sodium 136 mmol/L (136-145); Total Protein 5.3 g/dL (6.6-8.7)
[2025-07-02 05:23] LABS: Slide Review Slide Review Perform
[2025-07-02 05:28] LABS: NT Pro B Type Natriuretic Pept 763 pg/mL (0-125); Procalcitonin 0.10 ng/mL (0-0.5)
[2025-07-02] MEDS: FUROsemide 10 mg/mL SDV 2mL 20 MG IVP (09:00)
[2025-07-02] MEDS: ondansetron 2 mg/ML SDV 2 mL 4 MG IVP (09:27)
[2025-07-02] MEDS: vancomycin 1,750 MG/350 ML PIGGYBACK 175 MG IV (12:39)
[2025-07-02] MEDS: HYDROcodone-acetaminophen 5-325 mg Tablet 1 TAB PO (12:45)
--- NOTE | 2025-07-02 14:38 | PC.SOCIAL ---
IMM Update pg 2 of IMM updated and reviewed w/ patient. Copy provided and copy dated, initialed and placed in chart.
[2025-07-02] MEDS: levofloxacin-dextrose 5 % 750 MG/150 ML PREMIX 100 MG IV (16:20)
--- NOTE | 2025-07-02 17:17 | P.PN_ITS ---
Subjective 2 Subjective: Patient was seen this morning, alert oriented x 3, following all commands continues to have wheezing and shortness of breath abdomen, nonproductive cough, no lightheadedness, no dizziness Vitals/I&O/Wt Last Vital Signs Temp 98.1 F 07/02/25 12:16 Pulse 94 07/02/25 16:03 Resp 20 H 07/02/25 16:03 BP 140/106 07/02/25 16:00 Pulse Ox 98 07/02/25 16:03 O2 Del Method Nasal Cannula 07/02/25 16:03 O2 Flow Rate 2 07/02/25 16:03 FiO2 35 07/02/25 04:30 07/02/25 07/02/25 07/02/25 06:59 14:59 22:59 Intake Total 500 / 800 2082 / 2082 Output Total 651 / 651 Balance 500 / 700 1431 / 1431 Weight last 48 hrs Weight 112 kg Weight 111.13 kg Physical Exam 2 Const: COMMON NORMALS: no acute distress and patient oriented x3 Resp: COMMON NORMALS: normal respiratory effort, No retractions, No use of accessory muscles and clear to auscultation bilaterally AUSCULTATION: clear to auscultation bilaterally Cardio: COMMON NORMALS: regular rate, regular rhythm, S1 normal heart sound present and S2 normal heart sound present RATE: regular rate RHYTHM: r egular rhythm HEART SOUNDS: S1 normal heart sound present and S2 normal heart sound present GI: COMMON NORMALS: Normal to inspection, nondistended, normoactive bowel sounds present and non-tender Extremity: COMMON NORMALS: no calf tenderness and no pedal edema Neuro: COMMON NORMALS: patient oriented x3 Psych: COMMON NORMALS: mental status grossly normal Data 07/02/25 04:35 07/02/25 04:35 Micro: Microbiology 06/29/25 11:48 Gram Stain - Final Sputum - Expectorated Sputum Sputum Culture - Final Pseudomonas aeruginosa A&P Assessment and plan 1. Right upper lobe pneumonia: 2. Cough with hemoptysis: 3. Anemia: 4. Chronic shortness of breath: 5. Neutropenia: 6. Small cell lung cancer, right upper lobe: 7. Cancer-related pain: 8. Pancytopenia: Plan: #1 Right upper lobe pneumonia, with acute hypoxic respiratory failure -Pseudomonas pneumonia -Pseudomonas multidrug-resistant, sensitive to Levaquin - CT/CT angio chest PE protcl [id number] IMPRESSION: 1. Similar to slightly increased right basilar tree-in-bud nodularity. 2. Mild shifting left upper lobe ground-glass opacities with interval clearing of left lower lobe. Findings may be infectious or inflammatory. 3. No significant interval change to known right upper lung mass with associated bronchial and pulmonary arterial narrowing. 4. Soft tissue mass at the lower posterior esophageal margin is also grossly stable. - Plan -Vancomycin - IV Levaquin - Monitor blood cultures #2 Small cell lung cancer with active chemotherapy #3 Pancytopenia -Cancer related pancytopenia -Chemotherapy associated pancytopenia - Anemia, status post 3 units PRBC, hemoglobin 8.8 -Thrombocytopenia platelet count 31K, status post 1 unit platelets, will give another unit of platelets -Neutropenia monitor - Repeat CBC tomorrow #4 Right upper lobe pneumonia, respiratory failure - Continue antibiotics, as above - Supplemental oxygen support #5 GI DVT prophylaxis currently on hold given anemia, SCD's PDMP PDMP Reviewed: Not Reviewed Attestations 2 Medical Necessity Statement*: Patient requires hospitalization for Pseudomonas pneumonia, pancytopenia Diagnoses Right upper lobe pneumonia J18.9 Cough with hemoptysis R04.2 Anemia D64.9 Chronic shortness of breath R06.02 Neutropenia D70.9 Small cell lung cancer, right upper lobe C34.11 Cancer-related pain G89.3 Pancytopenia D61.818
[2025-07-03] VITALS (15 sets, daily range): BP systolic 113–150; BP diastolic 79–108; PULSE 88–114; RESP 16–24; TEMP 36.6; O2SAT 91–99
[2025-07-03 05:17] LABS: Hematocrit 27.7 % (36-47); Hemoglobin 9.30 g/dL (11.27-16.99); Mean Corpuscular HGB Conc 33.6 g/dL (30-55); Mean Corpuscular Hemoglobin 29.9 pg (27-33); Mean Corpuscular Volume 89.1 fl (85-98); Nucleated Red Blood Cells % 0 %; Platelet Count 54 10^3/cmm (157-399); Red Blood Count 3.11 10^6/uL (3.85-5.65); White Blood Count 3.39 10^3/uL (3.29-11.43)
[2025-07-03 05:46] LABS: Alanine Aminotransferase 10 U/L (0-33); Albumin Level 4.0 g/dL (3.5-5.2); Alkaline Phosphatase 117 U/L (35-105); Anion Gap 19.4 (5-19); Aspartate Amino Transferase 6 U/L (0-32); Blood Urea Nitrogen 18 mg/dL (8-23); Calcium 8.8 mg/dL (8.5-10.5); Carbon Dioxide 24 mmol/L (22-29); Chloride 98 mmol/L (98-107); Globulin 1.7 g/dL (1.3-4.6); Glucose 217 mg/dL (65-115); Osmolality Calculated 292 mOsm/kg (285-295); Potassium 4.4 mmol/L (3.5-5.1); Sodium 137 mmol/L (136-145); Total Protein 5.7 g/dL (6.6-8.7)
[2025-07-03 05:51] LABS: NT Pro B Type Natriuretic Pept 597 pg/mL (0-125); Procalcitonin 0.10 ng/mL (0-0.5)
[2025-07-03 06:01] LABS: Slide Review Slide Review Perform
--- NOTE | 2025-07-03 15:02 | P.PN_ITS ---
Subjective 2 Subjective: Patient was seen this morning, does report shortness of breath, does have a cough no fevers, no chills, no lightheadedness, no dizziness Vitals/I&O/Wt Last Vital Signs Temp 97.8 F 07/02/25 22:00 Pulse 108 H 07/03/25 12:00 Resp 20 H 07/03/25 12:00 BP 137/92 07/03/25 12:00 Pulse Ox 98 07/03/25 12:00 O2 Del Method Nasal Cannula 07/03/25 11:48 O2 Flow Rate 2 07/03/25 11:48 FiO2 35 07/02/25 04:30 07/03/25 07/03/25 07/03/25 06:59 14:59 22:59 Intake Total 390 / 2472 120 / 120 Balance 390 / 1821 120 / 120 Weight last 48 hrs Weight 110.677 kg Weight 112 kg Physical Exam 2 Const: COMMON NORMALS: no acute distress and patient oriented x3 Resp: COMMON NORMALS: normal respiratory effort, No retractions and No use of accessory muscles AUSCULTATION: wheezes Cardio: COMMON NORMALS: regular rate, regular rhythm, S1 normal heart sound present and S2 normal heart sound present RATE: regular rate RHYTHM: r egular rhythm HEART SOUNDS: S1 normal heart sound present and S2 normal heart sound present GI: COMMON NORMALS: Normal to inspection, nondistended, normoactive bowel sounds present and non-tender Extremity: COMMON NORMALS: no pedal edema Neuro: COMMON NORMALS: patient oriented x3 and CN's II-XII intact bilaterally Psych: COMMON NORMALS: mental status grossly normal Data 07/03/25 05:05 07/03/25 05:05 A&P Assessment and plan 1. Right upper lobe pneumonia: 2. Cough with hemoptysis: 3. Anemia: 4. Chronic shortness of breath: 5. Neutropenia: 6. Small cell lung cancer, right upper lobe: 7. Cancer-related pain: 8. Pancytopenia: Plan: #1 Right upper lobe pneumonia, with acute hypoxic respiratory failure -Pseudomonas pneumonia -Pseudomonas multidrug-resistant, sensitive to Levaquin - CT/CT angio chest PE protcl [id number] IMPRESSION: 1. Similar to slightly increased right basilar tree-in-bud nodularity. 2. Mild shifting left upper lobe ground-glass opacities with interval clearing of left lower lobe. Findings may be infectious or inflammatory. 3. No significant interval change to known right upper lung mass with associated bronchial and pulmonary arterial narrowing. 4. Soft tissue mass at the lower posterior esophageal margin is also grossly stable. - Plan -Vancomycin de-escalated - IV Levaquin - Monitor blood cultures #2 Small cell lung cancer with active chemotherapy #3 Pancytopenia -Cancer related pancytopenia -Chemotherapy associated pancytopenia - Anemia, status post 3 units PRBC, hemoglobin 8.8 -Thrombocytopenia platelet count 31K, status post 1 unit platelets, will give another unit of platelets -Neutropenia monitor - Repeat CBC tomorrow #4 Right upper lobe pneumonia, respiratory failure - Continue antibiotics, as above - Supplemental oxygen support #5 GI DVT prophylaxis currently on hold given anemia, SCD's PDMP PDMP Reviewed: Not Reviewed Attestations 2 Medical Necessity Statement*: Patient requires hospitalization for Pseudomonas pneumonia, pancytopenia Diagnoses Right upper lobe pneumonia J18.9 Cough with hemoptysis R04.2 Anemia D64.9 Chronic shortness of breath R06.02 Neutropenia D70.9 Small cell lung cancer, right upper lobe C34.11 Cancer-related pain G89.3 Pancytopenia D61.818
--- NOTE | 2025-07-03 15:10 | PC.NURSE ---
Pt taken to [facility] via wheelchair. All belongings taken upstairs including 1400 dollars.
[2025-07-03] MEDS: levofloxacin-dextrose 5 % 750 MG/150 ML PREMIX 100 MG IV (16:44)
[2025-07-04] VITALS (7 sets, daily range): BP systolic 113–154; BP diastolic 77–96; PULSE 88–105; RESP 17–20; TEMP 36.6–36.8; O2SAT 94–98
[2025-07-04 05:38] LABS: Hematocrit 27.2 % (36-47); Hemoglobin 8.90 g/dL (11.27-16.99); Mean Corpuscular HGB Conc 32.7 g/dL (30-55); Mean Corpuscular Hemoglobin 29.9 pg (27-33); Mean Corpuscular Volume 91.3 fl (85-98); Nucleated Red Blood Cells % 1.6 %; Platelet Count 51 10^3/cmm (157-399); Red Blood Count 2.98 10^6/uL (3.85-5.65); White Blood Count 3.08 10^3/uL (3.29-11.43)
[2025-07-04 05:50] LABS: Alanine Aminotransferase 7 U/L (0-33); Albumin Level 3.2 g/dL (3.5-5.2); Alkaline Phosphatase 101 U/L (35-105); Anion Gap 14.9 (5-19); Aspartate Amino Transferase 5 U/L (0-32); Blood Urea Nitrogen 23 mg/dL (8-23); Calcium 8.4 mg/dL (8.5-10.5); Carbon Dioxide 25 mmol/L (22-29); Chloride 101 mmol/L (98-107); Creatinine Clr Calc Pharmacy 79.7056; Globulin 1.9 g/dL (1.3-4.6); Glucose 144 mg/dL (65-115); Osmolality Calculated 290 mOsm/kg (285-295); Potassium 3.9 mmol/L (3.5-5.1); Sodium 137 mmol/L (136-145); Total Protein 5.1 g/dL (6.6-8.7)
[2025-07-04] MEDS: ATORVASTATIN 10 MG TABLET PO (05:54)
[2025-07-04 06:31] LABS: Slide Review Slide Review Perform
--- NOTE | 2025-07-04 09:57 | PC.SOCIAL ---
IMM Update pg 2 of IMM Updated and reviewed w/ patient. Copy provided and copy dated, initialed and placed in chart.
--- NOTE | 2025-07-04 10:33 | PM.DCS ---
Discharge Providers Date of Admission: 06/29/25 01:25 Date of Discharge: July 04, 2025 Attending Provider at Admission: Barbi Lemons MD Attending Provider at Discharge: Devon Snyder MD Diagnoses at Discharge Discharge Diagnosis 1. Right upper lobe pneumonia: 2. Cough with hemoptysis: 3. Anemia: 4. Chronic shortness of breath: 5. Neutropenia: 6. Small cell lung cancer, right upper lobe: 7. Cancer-related pain: 8. Pancytopenia: Reason for Visit Reason for Visit: SOB ox in 70s doc sent Hospital Course Hospital Course This is a 70-year-old female with a past medical history of COPD, history of small cell carcinoma of the right lung, history of immunocompromise state, on chemotherapy, history of pancytopenia, who presents [facility] for shortness of breath Patient was admitted to [facility] for acute hypoxic respiratory failure secondary right upper lobe pneumonia, Pseudomonas pneumonia, received IV antibiotics, did develop respiratory failure requiring ICU admission, and BiPAP therapy, overall clinically improved, will be discharged on IV Levaquin with close follow-up with primary care provider as outpatient For patient's pancytopenia, chemotherapy associated - For anemia, required 3 units of PRBC - For thrombocytopenia required 2 units of platelets - On discharge hemoglobin stable 8.9, platelet count 51,000, no evidence of bleeding - Follow-up with oncology as outpatient Physical Exam Const: COMMON NORMALS: no acute distress and patient oriented x3 Eye: COMMON NORMALS: Equal, round and reactive pupils present PUPIL: Yes Equal, round and reactive pupils present Resp: COMMON NORMALS: normal respiratory effort, No retractions, No use of accessory muscles and clear to auscultation bilaterally AUSCULTATION: clear to auscultation bilaterally and wheezes Cardio: COMMON NORMALS: regular rate, regular rhythm, S1 normal heart sound present and S2 normal heart sound present RATE: regular rate RHYTHM: regular rhythm HEART SOUNDS: S1 normal heart sound present and S2 normal heart sound present GI: COMMON NORMALS: Normal to inspection, nondistended, normoactive bowel sounds present, Soft to palpation and non-tender PALPATION: Yes Soft to palpation Extremity: COMMON NORMALS: no pedal edema Neuro: COMMON NORMALS: patient oriented x3, CN's II-XII intact bilaterally and moves all extremities Psych: COMMON NORMALS: mental status grossly normal Discharge Data Studies Completed and Pending Completed Studies During Hospitalization Category Date Time Status CT PE [CT angio chest PE protcl [id number]] Stat Cat Scan 06/28/25 20:15 Completed XR chest 1V portable [id number] Stat Exams 06/28/25 18:15 Completed Pending at discharge Category Date Time Status Complete Blood Count w/Auto AM LABS Lab 07/05/25 04:00 Ordered Comprehensive Metabolic Panel AM LABS Lab 07/05/25 04:00 Ordered Radiology Impressions Chest X-Ray 06/28/25 18:15 IMPRESSION: 1. No acute findings. 2. Similar right mid lung zone opacity in keeping with known mass. Chest CTA 06/28/25 20:15 IMPRESSION: 1. Similar to slightly increased right basilar tree-in-bud nodularity. 2. Mild shifting left upper lobe ground-glass opacities with interval clearing of left lower lobe. Findings may be infectious or inflammatory. 3. No significant interval change to known right upper lung mass with associated bronchial and pulmonary arterial narrowing. 4. Soft tissue mass at the lower posterior esophageal margin is also grossly stable. Laboratory Results WBC 3.08 10^3/uL (3.29-11.43) L 07/04/25 05:00 Corrected WBC Cancelled 06/28/25 19:38 RBC 2.98 10^6/uL (3.85-5.65) L 07/04/25 05:00 Hgb 8.90 g/dL (11.27-16.99) L 07/04/25 05:00 Hct 27.2 % (36-47) L 07/04/25 05:00 MCV 91.3 fl (85-98) 07/04/25 05:00 MCH 29.9 pg (27-33) 07/04/25 05:00 MCHC 32.7 g/dL (30-55) 07/04/25 05:00 RDW 15.1 % (12.1-15.1) 07/04/25 05:00 Plt Count 51 10^3/cmm (157-399) L 07/04/25 05:00 MPV 11.2 fL (7.4-10.4) H 07/04/25 05:00 Gran % Cancelled 06/28/25 19:38 Neut % (Auto) 53.0 % 07/04/25 05:00 Lymph % (Auto) 26.0 % 07/04/25 05:00 [place] % (Auto) 14.9 % 07/04/25 05:00 Eos % (Auto) 0.3 % 07/04/25 05:00 Baso % (Auto) 0.6 % 07/04/25 05:00 Neut # (Auto) 1.63 10^3/uL (1.8-7.7) L 07/04/25 05:00 Lymph # (Auto) 0.8 10^3/uL (0.8-4.8) 07/04/25 05:00 [place] # (Auto) 0.5 10^3/uL (0.2-0.9) 07/04/25 05:00 Eos # (Auto) 0.0 10^3/uL (0.0-0.8) 07/04/25 05:00 Baso # (Auto) 0.0 10^3/uL (0.0-0.1) 07/04/25 05:00 Absolute Gran (auto) Cancelled 06/28/25 19:38 Nucleated RBC % (auto) 1.6 % 07/04/25 05:00 Total Counted 25 (0-100) 06/29/25 08:46 Atypical Lymphs % 8.0 % (0-5) H 06/29/25 08:46 Absolute Neutrophils 1.4 10^3/cmm (1.4-6.5) 06/29/25 08:46 Segmented Neutrophils 48 % 06/29/25 08:46 Band Neutrophils 24.0 % 06/29/25 08:46 Absolute Lymphocytes 0.3 10^3/cmm (1.2-3.4) L 06/29/25 08:46 Lymphocytes (Manual) 8 % 06/29/25 08:46 Monocytes (Manual) 12.0 % 06/29/25 08:46 Absolute Monocytes 0.2 10^3/cmm (0.1-0.6) 06/29/25 08:46 Eosinophils (Manual) 0 % 06/29/25 08:46 Absolute Eosinophils 0.0 10^3/cmm (0.0-0.7) 06/29/25 08:46 Basophils (Manual) 0.0 % 06/29/25 08:46 Absolute Basophils 0.0 10^3/cmm (0.0-0.2) 06/29/25 08:46 Nucleated RBCs # 0.1 /100WBC 07/04/25 05:00 Platelet Estimate Decreased (Normal) L 06/29/25 08:46 PT 13.60 SECONDS (12.1-14.9) 07/02/25 04:35 INR 0.97 (0.8-1.2) 07/02/25 04:35 Specimen Type Arterial 06/28/25 19:46 Sample Site Brachial, right 06/28/25 19:46 ABG pH 7.47 (7.35-7.45) H 06/28/25 19:46 ABG pCO2 34.5 mmHg (35-45) L 06/28/25 19:46 ABG pO2 74.4 mmHg (80.0-100.0) L 06/28/25 19:46 ABG HCO3 25.0 mmol/L (22-26) 06/28/25 19:46 ABG O2 Saturation 96.2 06/28/25 19:46 ABG Base Excess 1.3 mmol/L (-2.0-2.0) 06/28/25 19:46 Leonel Test N/a 06/28/25 19:46 A-a O2 Gradient 4.2 mmHg (5-10) L 06/28/25 19:46 Hematocrit 25.0 % (37-47) L 06/28/25 19:46 Hgb O2 Saturation 93.6 % (95-100) L 06/28/25 19:46 Carboxyhemoglobin 1.4 %THgb (0.4-20.1) 06/28/25 19:46 Methemoglobin 1.3 % (0.4-1.5) 06/28/25 19:46 Total Hemoglobin 8.2 g/dL (12-16) L 06/28/25 19:46 Sodium 137.0 mmol/L (131-143) 06/28/25 19:46 Potassium 3.7 mmol/L (3.5-5.0) 06/28/25 19:46 Glucose 158.0 mg/dL (70-115) H 06/28/25 19:46 Ionized Calcium 1.2 mmol/L (1.1-1.4) 06/28/25 19:46 O2 Delivery Device Nc 06/28/25 19:46 O2 Liters/Min 5.0 % 06/28/25 19:46 Tax Compliance Representative ID [id number] 06/28/25 19:46 Sodium 137 mmol/L (136-145) 07/04/25 05:00 Potassium 3.9 mmol/L (3.5-5.1) 07/04/25 05:00 Chloride 101 mmol/L (98-107) 07/04/25 05:00 Carbon Dioxide 25 mmol/L (22-29) 07/04/25 05:00 Anion Gap 14.9 (5-19) 07/04/25 05:00 BUN 23 mg/dL (8-23) 07/04/25 05:00 Creatinine 0.7 mg/dL (0.5-0.9) 07/04/25 05:00 GFR Calculation 83.0 mL/min (90-130) L 07/04/25 05:00 Glucose 144 mg/dL (65-115) H 07/04/25 05:00 POC Glucose 151 mg/dL (70-110) H 07/04/25 06:08 Calculated Osmolality 290 mOsm/kg (285-295) 07/04/25 05:00 Lactic Acid 1.9 mmol/L (0.5-2.2) 06/28/25 19:38 Calcium 8.4 mg/dL (8.5-10.5) L 07/04/25 05:00 Phosphorus 2.1 mg/dL (2.5-4.5) L 06/29/25 08:46 Magnesium 2.0 mg/dL (1.7-2.3) 06/29/25 08:46 Total Bilirubin 0.2 mg/dL (0.15-1.2) 07/04/25 05:00 AST 5 U/L (0-32) 07/04/25 05:00 ALT 7 U/L (0-33) 07/04/25 05:00 Alkaline Phosphatase 101 U/L (35-105) 07/04/25 05:00 Troponin T Baseline 9 ng/L (0-10) 06/28/25 19:38 Troponin T 120 Minute 7.96 ng/L (0-10) 06/28/25 22:00 Delta Troponin T -1.04 ABS# (0-10) L 06/28/25 22:00 Troponin T Hi Sens 6Hr 6.54 ng/L (0-10) 06/29/25 08:46 Troponin T Hi Sens 6Hr Delta -2.46 ng/L (0-12) L 06/29/25 08:46 C-Reactive Protein 7.9 mg/L (0.0-4.9) H 07/03/25 05:05 NT-Pro-B Natriuret Pep 597 pg/mL (0-125) H 07/03/25 05:05 Total Protein 5.1 g/dL (6.6-8.7) L 07/04/25 05:00 Albumin 3.2 g/dL (3.5-5.2) L 07/04/25 05:00 Globulin 1.9 g/dL (1.3-4.6) 07/04/25 05:00 Procalcitonin 0.10 ng/mL (0-0.5) 07/03/25 05:05 Urine Color Yellow (Yellow) 06/28/25 20:45 Urine Appearance Clear (CLEAR) 06/28/25 20:45 Urine pH 5.5 (5-7) 06/28/25 20:45 Ur Specific [place] 1.024 (1.005-1.030) 06/28/25 20:45 Urine Protein Trace (Negative) A 06/28/25 20:45 Urine Glucose (UA) Negative (Normal) 06/28/25 20:45 Urine Ketones Negative (Negative) 06/28/25 20:45 Urine Blood Negative (Negative) 06/28/25 20:45 Urine Nitrate Negative (Negative) 06/28/25 20:45 Urine Bilirubin Negative (Negative) 06/28/25 20:45 Urine Urobilinogen 1.0 mg/dL (Negative) 06/28/25 20:45 Ur Leukocyte Esterase Negative (Negative) 06/28/25 20:45 Urine RBC 0-2 /hpf (0-2) 06/28/25 20:45 Urine WBC 0-5 /hpf (0-5) 06/28/25 20:45 Ur Squamous Epith Cells 0-5 /hpf (0-5) 06/28/25 20:45 Amorphous Sediment Not Reportable 06/28/25 20:45 Urine Bacteria None seen /hpf (NONE) 06/28/25 20:45 Hyaline Casts 1.65 /lpf 06/28/25 20:45 Nasal MRSA (PCR) Not detected (Not Detecte) 06/29/25 08:48 Vancomycin Trough 14.7 ug/mL (10-15) 07/03/25 05:05 Influenza A (PCR) Negative (Negative) 06/28/25 19:38 Influenza Type B (PCR) Negative (Negative) 06/28/25 19:38 RSV (PCR) Negative (Negative) 06/28/25 19:38 SARS-CoV-2 (PCR) Negative (Negative) 06/28/25 19:38 Blood Type A Positive 06/28/25 22:00 Rho(D) Type Rh positive 06/28/25 22:00 Antibody Screen Negative 06/28/25 22:00 Crossmatch See Detail 06/28/25 22:00 Vitals Last Vital Signs Temp 98.2 F 07/04/25 07:46 Pulse 88 07/04/25 08:05 Resp 18 07/04/25 08:05 BP 113/82 07/04/25 07:46 Pulse Ox 98 07/04/25 08:05 O2 Del Method Nasal Cannula 07/04/25 08:05 O2 Flow Rate 2 07/04/25 08:05 FiO2 35 07/02/25 04:30 Discharge Plan Discharge Patient Disposition: Home Condition: Stable Prescriptions: New prednisone 20 mg Tablet 40 mg PO DAILY 5 Days Qty: 10 0RF levofloxacin 750 mg tablet 750 mg PO DAILY 5 Days Qty: 5 0RF Continued metoprolol tartrate 25 mg tablet 25 mg PO DAILY 90 Days Qty: 90 1RF insulin lispro [Humalog KwikPen Insulin] 100 unit/mL insulin pen See Rx Instructions SUBCUT TID PRN (Reason: blood sugar) Rx Instructions: Use per sliding scale subcutaneously three times daily as needed. latanoprost 0.005 % drops 1 drp ophthalmic (eye) BEDTIME cholecalciferol (vitamin D3) 125 mcg (5,000 unit) capsule 125 mcg PO DAILY arformoterol 15 mcg/2 mL solution for nebulization 2 ml inhalation BID PRN (Reason: Shortness Of Breath) gabapentin 300 mg capsule 300 mg PO BID Qty: 60 2RF pantoprazole 40 mg tablet,delayed release (DR/EC) 40 mg PO BID Qty: 180 0RF hydrocodone-acetaminophen 5-325 mg tablet 1 tab PO Q6H PRN (Reason: pain) 30 Days Qty: 120 0RF atorvastatin 10 mg tablet 10 mg PO DAILY 90 Days Qty: 90 0RF bumetanide 1 mg tablet 1 mg PO DAILY Qty: 90 0RF doxepin 25 mg capsule 50 mg PO BEDTIME Qty: 90 0RF levothyroxine 25 mcg tablet 25 mcg PO QAM Qty: 90 0RF Trulicity 3 mg/0.5 mL pen injector 3 mg SUBCUT Q7D Rx Instructions: ON WEDNESDAY ubrogepant 50 mg Tablet 50 mg PO 1XD PRN (Reason: Migraine Headache) albuterol sulfate 90 mcg/actuation HFA aerosol inhaler 2 inh inhalation Q4H PRN (Reason: shortness of breath or wheezing) Qty: 6.7 0RF ondansetron HCl 4 mg tablet 4 mg PO Q6H PRN (Reason: Nausea And Vomiting) lactulose 10 gram/15 mL solution See Rx Instructions .ROUTE .COMPLEX PRN (Reason: constipation) Rx Instructions: Take 30 mL every 2 hours until bowel movement. If no bowel movement within 72 hours, may repeat. aspirin 81 mg Tablet,Delayed Release (Dr/Ec) 81 mg PO DAILY loratadine [Claritin] 10 mg Tablet 10 mg PO DAILY Discharge Order = DC NOW: Discharge Order (Routine); Ordered 07/04/25 Ordered By: Devon Snyder Referrals: Raad Bhatt FNP [Nurse Practitioner, Family Practice] - 07/05/25 2:00 pm Discharge Diet: Cardiac Discharge Activity: Resume usual activity Patient Instructions: Prednisone (By mouth), Levofloxacin (By mouth) (Levaquin, Levaquin Leva-[place]), Pneumonia (GEN), Opioid Safety, Pneumonia Stoplight, Patient Portal & Pankaj Instructions Activity Restrictions/Additional Instructions: - Please monitor for fevers - Please follow-up with primary care provider Discharge Attestations Time Spent in Discharge Care*: greater than 30 min Status at Discharge: Cognitive status at discharge: cognitively intact, Behavioral status at discharge: cooperative, Quality Metrics Clinical Quality Measures [ No reported AMI, CVA or VTE this stay] Coding Level of Care Code 98057 Total time (in minutes) for Discharge: 45 Diagnoses Right upper lobe pneumonia J18.9 Cough with hemoptysis R04.2 Anemia D64.9 Anemia type: unspecified type Chronic shortness of breath R06.02 Neutropenia D70.1; T45.1X5A Neutropenia type: secondary to cancer chemotherapy Small cell lung cancer, right upper lobe C34.11 Cancer-related pain G89.3 Pancytopenia D61.818
--- NOTE | 2025-07-04 10:58 | PC.NURSE ---
Spoke to patient on morning rounds at 0736 about telemetry. Patient stated she has had a heart attack before, knows what it feels like and is not wearing a telemetry box.
--- NOTE | 2025-07-04 11:05 | PC.NURSE ---
Patient refused to have SCDs. State she gets up and sits on the edge of bed and walks to bathroom.
--- NOTE | 2025-07-04 11:34 | PC.NURSE ---
Went over discharge with patient and family member. Discussed discharge appointment, new medications and to continue all home medications. Patient and family verbalized understanding.
== END 2025-07-04 11:45 | disposition home or self-care (01) | DRG 808 ==
LOC: ER 22:11 → ER IP 23:41 → CSU 06-29 05:30 → ER IP 06-29 07:16 → CSU 06-30 09:39 → ICU 06-30 10:43 → MEDSURG 07-03 14:58
PROVIDERS: Emergency Medicine; Admitting Provider Internal Medicine; Emergency Provider Emergency Medicine; Visit Provider Family Medicine
DX: D61.810 Antineoplastic chemotherapy induced pancytopenia (principal); J15.1 Pneumonia due to Pseudomonas; J96.01 Acute respiratory failure with hypoxia; C34.11 Malignant neoplasm of upper lobe, right bronchus or lung; Z16.24 Resistance to multiple antibiotics; J44.0 Chronic obstructive pulmonary disease with (acute) lower respiratory infection; D84.9 Immunodeficiency, unspecified; D63.0 Anemia in neoplastic disease; D70.9 Neutropenia, unspecified; G89.3 Neoplasm related pain (acute) (chronic); T45.1X5A Adverse effect of antineoplastic and immunosuppressive drugs, initial encounter; Z79.899 Other long term (current) drug therapy
CPT/HCPCS: 36415; 36416; 36430; 36600; 71045; 71275; 80051; 80053; 80202; 81001; 82330; 82805; 82962; 83605; 83735; 83880; 84100; 84145; 84484; 85007; 85025; 85610; 86140; 86850; 86900; 86920; 87040; 87070; 87077; 87186; 87205; 87637; 93005; 94640; 94660; 96365; 96372; 96375; 99285; J0692; J1644; J1815; J1938; J1956; J2405; J2543; J2919; J3372; J3373; J7120; J7512; J7613; J7614; J9999; P9016; P9035; P9040

== ENCOUNTER 2025-07-23 08:45 | Oncology outpatient (recurring) (ONCR) | payer MEDICARE, MEDICAID, SELFPAY ==
[2025-07-09] MEDS: alteplase 1 mg/mL SDV 2 mL 2 MG INTRACATH (10:06)
[2025-07-09 10:13] LABS: Hematocrit 31.4 % (36-47); Hemoglobin 10.00 g/dL (11.27-16.99); Mean Corpuscular HGB Conc 31.8 g/dL (30-55); Mean Corpuscular Hemoglobin 29.9 pg (27-33); Mean Corpuscular Volume 93.7 fl (85-98); Nucleated Red Blood Cells % 0.4 %; Platelet Count 123 10^3/cmm (157-399); Red Blood Count 3.35 10^6/uL (3.85-5.65); White Blood Count 10.97 10^3/uL (3.29-11.43)
[2025-07-09 10:25] LABS: Alanine Aminotransferase 12 U/L (0-33); Albumin Level 3.7 g/dL (3.5-5.2); Alkaline Phosphatase 98 U/L (35-105); Anion Gap 14.7 (5-19); Aspartate Amino Transferase 9 U/L (0-32); Blood Urea Nitrogen 15 mg/dL (8-23); Calcium 8.7 mg/dL (8.5-10.5); Carbon Dioxide 27 mmol/L (22-29); Chloride 99 mmol/L (98-107); Globulin 2.5 g/dL (1.3-4.6); Glucose 215 mg/dL (65-115); Osmolality Calculated 291 mOsm/kg (285-295); Potassium 3.7 mmol/L (3.5-5.1); Sodium 137 mmol/L (136-145); Total Protein 6.2 g/dL (6.6-8.7)
[2025-07-09 10:38] LABS: Slide Review Slide Review Perform
[2025-07-09] MEDS: ondansetron 2 mg/ML SDV 2 mL 8 MG IVP (12:13)
[2025-07-09] MEDS: SODIUM CHLORIDE 0.9% IV (12:39)
[2025-07-09] MEDS: TOPOTECAN IV (12:39)
[2025-07-09 13:45] VITALS: BP 109/74; PULSE 104; RESP 17; TEMP 36.2; O2SAT 95
[2025-07-10 10:09] VITALS: BP 141/86; PULSE 92; TEMP 36; O2SAT 99
[2025-07-10] MEDS: ondansetron 2 mg/ML SDV 2 mL 8 MG IVP (10:37)
[2025-07-10] MEDS: SODIUM CHLORIDE 0.9% IV (11:16)
[2025-07-10] MEDS: TOPOTECAN IV (11:16)
[2025-07-10 12:05] VITALS: BP 127/77; PULSE 90; RESP 17; TEMP 36.3; O2SAT 98
[2025-07-11 09:35] VITALS: BP 114/69; PULSE 103; RESP 17; TEMP 36.6; O2SAT 95
[2025-07-11] MEDS: ondansetron 2 mg/ML SDV 2 mL 8 MG IVP (09:57)
[2025-07-11] MEDS: TOPOTECAN IV (10:34)
[2025-07-11] MEDS: SODIUM CHLORIDE 0.9% IV (10:34)
[2025-07-11 11:11] VITALS: BP 100/73; PULSE 95; RESP 17; TEMP 36.5; O2SAT 95
[2025-07-12 10:14] VITALS: BP 105/69; PULSE 111; RESP 17; TEMP 36.3; O2SAT 94
[2025-07-12] MEDS: ondansetron 2 mg/ML SDV 2 mL 8 MG IVP (10:28)
[2025-07-12] MEDS: SODIUM CHLORIDE 0.9% IV (11:06)
[2025-07-12] MEDS: TOPOTECAN IV (11:06)
[2025-07-12 12:02] VITALS: BP 95/62; PULSE 101; RESP 17; TEMP 36.6; O2SAT 97
[2025-07-13 09:11] VITALS: BP 90/65; PULSE 101; RESP 17; TEMP 36.4; O2SAT 96
[2025-07-13] MEDS: ondansetron 2 mg/ML SDV 2 mL 8 MG IVP (09:16)
[2025-07-13] MEDS: SODIUM CHLORIDE 0.9% IV (09:49)
[2025-07-13] MEDS: TOPOTECAN IV (09:49)
[2025-07-13] MEDS: pegfilgrastim 6 mg/0.6 mL Kit (onpro) SUBCUT (10:40)
[2025-07-13 10:44] VITALS: BP 101/69; PULSE 97; RESP 16; TEMP 36.5; O2SAT 93
[2025-07-23] VITALS (11 sets, daily range): BP systolic 102–132; BP diastolic 64–82; PULSE 67–97; RESP 16–17; TEMP 36.1–36.4; O2SAT 95–99
[2025-07-23 08:43] LABS: Hematocrit 21.0 % (36-47); Hemoglobin 6.80 g/dL (11.27-16.99); Mean Corpuscular HGB Conc 32.4 g/dL (30-55); Mean Corpuscular Hemoglobin 29.6 pg (27-33); Mean Corpuscular Volume 91.3 fl (85-98); Nucleated Red Blood Cells % 0 %; Red Blood Count 2.30 10^6/uL (3.85-5.65); White Blood Count 4.05 10^3/uL (3.29-11.43)
[2025-07-23 09:18] LABS: Alanine Aminotransferase 8 U/L (0-33); Albumin Level 3.5 g/dL (3.5-5.2); Alkaline Phosphatase 108 U/L (35-105); Anion Gap 12.8 (5-19); Aspartate Amino Transferase 8 U/L (0-32); Blood Urea Nitrogen 14 mg/dL (8-23); Calcium 8.9 mg/dL (8.5-10.5); Carbon Dioxide 26 mmol/L (22-29); Chloride 104 mmol/L (98-107); Globulin 2.8 g/dL (1.3-4.6); Glucose 134 mg/dL (65-115); Osmolality Calculated 288 mOsm/kg (285-295); Potassium 4.8 mmol/L (3.5-5.1); Sodium 138 mmol/L (136-145); Thyroid Stimulating Hormone 2.22 uIU/mL (0.27-4.20); Total Protein 6.3 g/dL (6.6-8.7)
[2025-07-23 09:19] LABS: Platelet Count 23 10^3/cmm (157-399); Slide Review Slide Review Perform
[2025-07-23 09:31] LABS: Vitamin B12 > 2000 pg/mL (232-1245)
[2025-07-23] MEDS: ondansetron 2 mg/ML SDV 2 mL 8 MG IVP (12:01)
[2025-07-23] MEDS: FLU VACC TS2025-26(6MOS UP)/PF 45 MCG/0.5 ML SYRINGE IM (13:37)
== END 2025-07-23 23:59 | disposition home or self-care (01) ==
PROVIDERS: Nurse Practitioner Family; PCP Registered Nurse; Visit Provider Internal Medicine Medical Oncology
DX: Z53.9 Procedure and treatment not carried out, unspecified reason; C34.11 Malignant neoplasm of upper lobe, right bronchus or lung; D70.1 Agranulocytosis secondary to cancer chemotherapy; T45.1X5A Adverse effect of antineoplastic and immunosuppressive drugs, initial encounter; Z23 Encounter for immunization
CPT/HCPCS: 36415; 36430; 36591; 36593; 80053; 82607; 82746; 84443; 85025; 86850; 86900; 86920; 90471; 90656; 96372; 96375; 96377; 96413; 99214; J2405; J2506; J2997; J7050; J9351; J9999; P9016

== ENCOUNTER 2025-08-01 10:45 | Oncology outpatient (recurring) (ONCR) | payer MEDICARE, MEDICAID, SELFPAY ==
--- NOTE | 2025-07-27 08:49 | PETR_ITS ---
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 Then, PET images were obtained. Attenuation corrected images were constructed using the CT scan. Fused images of PET and CT were reviewed. The standardized uptake values (SUV) reported below are maximum values within a region of interest, expressed in gm/ml. Exam includes orbital meatal line to mid-thigh. SUV normalization method: BodyWeight Radiopharmaceutical: 11.65 mCi F-18 FDG (Fluorodeoxyglucose), IV. Time of imaging post radiopharmaceutical administration: 45 minutes Injection site: right ac COMPARISON: 1. PT PET skull to thigh [id number] [id number] 05/18/2025 12:08 PM 2. Chest CTA dated 06/28/2025. FINDINGS: Tubes, catheters and devices: Left chest wall chemo port with tip at the cavoatrial junction. Brain: Visualized brain has normal physiologic uptake. Pharynx: No abnormal uptake. Larynx: No abnormal uptake. Lungs, pleura and trachea: Redemonstrated FDG avid chronic right upper lobe consolidation. A previously noted FDG avid area of nodularity along the anterior aspect of the consolidation has resolved. However, there is now mildly increased FDG uptake within the consolidation, maximum SUV 4.1 obtained from a medial upper nodular component, previously not FDG avid on the prior study (previously maximum SUV 2.5). There are new areas of ground-glass consolidation and nodularity noted within left upper lobe (series 202, image 86, maximum SUV 7.5), as well as within the posterior right lower lobe (series 202, image 132, maximum SUV 6.8). Heart: Normal physiologic uptake. Mediastinal space: No abnormal uptake. Liver: No abnormal uptake. Gallbladder and biliary ducts: No abnormal uptake. Pancreas: No abnormal uptake. Spleen: No abnormal uptake. Adrenal glands: No abnormal uptake. Kidneys and ureters: Normal physiologic uptake. Stomach and bowel: No abnormal uptake. Vasculature: No abnormal uptake. Lymph nodes: A posterior mediastinal FDG avid node has decreased in size and FDG uptake compared to the prior study, now measuring 2.0 cm in short axis (previously 2.3 cm), with maximum SUV of 5.8 (previously 7.8). Skeleton: Redemonstrated FDG avid heterogeneously sclerotic lesion within the left femoral neck, maximum SUV 6.8 (previously 8.4). Patchy heterogeneous FDG uptake within the right acetabulum, maximum SUV 3.1 (previously 3.9). FDG avid sclerotic lesion within the right lateral femoral condyle, maximum SUV 4.6 (this lesion was not previously included in the field of view). Soft tissues: No abnormal uptake in the visualized head, neck, chest, abdomen, pelvis, and extremities. METRICS: Mediastinal blood pool: Mean SUV of 2.6 Liver uptake: Mean SUV of 2.8 PET/PET skull to thigh [id number] [id number] IMPRESSION: 1. Redemonstrated chronic right upper lobe consolidation overall mildly increased in FDG uptake compared to the prior study. Overall, this represents mixed treatment response given additional findings. 2. Resolution of previously noted FDG avid consolidation anterior to the chronic right upper lobe consolidation. There are however new areas of patchy ground-glass nodularity and consolidation within the left upper lobe and posterior right lung base. These findings are new since 06/28/2025 and are likely infectious/inflammatory, although metastatic disease is not definitively excluded. Follow-up after a course of treatment is recommended to ensure resolution. 3. Decreased size and FDG uptake of a posterior mediastinal node. 4. Osseous metastases in the right acetabulum, left femoral neck (these demonstrate decreased FDG uptake) and right femoral condyle (not previously imaged).
[2025-07-30 08:57] LABS: Hematocrit 25.7 % (36-47); Hemoglobin 8.20 g/dL (11.27-16.99); Mean Corpuscular HGB Conc 31.9 g/dL (30-55); Mean Corpuscular Hemoglobin 30.0 pg (27-33); Mean Corpuscular Volume 94.1 fl (85-98); Nucleated Red Blood Cells % 0.3 %; Platelet Count 221 10^3/cmm (157-399); Red Blood Count 2.73 10^6/uL (3.85-5.65); White Blood Count 7.52 10^3/uL (3.29-11.43)
[2025-07-30 09:41] LABS: Alanine Aminotransferase 13 U/L (0-33); Albumin Level 3.4 g/dL (3.5-5.2); Alkaline Phosphatase 90 U/L (35-105); Anion Gap 15.7 (5-19); Aspartate Amino Transferase 12 U/L (0-32); Blood Urea Nitrogen 12 mg/dL (8-23); Calcium 8.9 mg/dL (8.5-10.5); Carbon Dioxide 23 mmol/L (22-29); Chloride 104 mmol/L (98-107); Globulin 3.0 g/dL (1.3-4.6); Glucose 174 mg/dL (65-115); Osmolality Calculated 292 mOsm/kg (285-295); Potassium 3.7 mmol/L (3.5-5.1); Sodium 139 mmol/L (136-145); Thyroid Stimulating Hormone 1.73 uIU/mL (0.27-4.20); Total Protein 6.4 g/dL (6.6-8.7)
[2025-07-30 10:04] LABS: Vitamin B12 > 2000 pg/mL (232-1245)
[2025-07-30] MEDS: ondansetron 2 mg/ML SDV 2 mL 8 MG IVP (11:31)
[2025-07-30] MEDS: TOPOTECAN IV (12:03)
[2025-07-30] MEDS: SODIUM CHLORIDE 0.9% IV (12:03)
[2025-07-30 12:54] VITALS: BP 99/65; PULSE 96; RESP 18; TEMP 36.3; O2SAT 98
[2025-07-31] MEDS: ondansetron 2 mg/ML SDV 2 mL 8 MG IVP (10:23)
[2025-07-31] MEDS: SODIUM CHLORIDE 0.9% IV (10:59)
[2025-07-31] MEDS: TOPOTECAN IV (10:59)
[2025-07-31 11:49] VITALS: BP 106/70; PULSE 96; RESP 17; TEMP 36.2; O2SAT 98
[2025-08-01 09:57] LABS: Hematocrit 25.2 % (36-47); Hemoglobin 8.10 g/dL (11.27-16.99); Mean Corpuscular HGB Conc 32.1 g/dL (30-55); Mean Corpuscular Hemoglobin 29.1 pg (27-33); Mean Corpuscular Volume 90.6 fl (85-98); Nucleated Red Blood Cells % 0 %; Platelet Count 324 10^3/cmm (157-399); Red Blood Count 2.78 10^6/uL (3.85-5.65); White Blood Count 3.59 10^3/uL (3.29-11.43)
[2025-08-01] MEDS: ondansetron 2 mg/ML SDV 2 mL 8 MG IVP (10:35)
[2025-08-01] MEDS: SODIUM CHLORIDE 0.9% IV (11:15)
[2025-08-01] MEDS: TOPOTECAN IV (11:15)
[2025-08-01 12:22] VITALS: BP 87/56; PULSE 98; RESP 17; RESP 18; TEMP 36.6; O2SAT 95
[2025-08-01 12:40] VITALS: BP 88/56; PULSE 98; RESP 17; TEMP 36.4; O2SAT 94
[2025-08-01] MEDS: pegfilgrastim 6 mg/0.6 mL Kit (onpro) SUBCUT (12:49)
[2025-08-01 12:52] VITALS: BP 88/53; PULSE 100; RESP 17; TEMP 36.4; O2SAT 93
[2025-08-01 13:52] VITALS: BP 84/57; PULSE 97; RESP 17; TEMP 36.3; O2SAT 96
[2025-08-01 15:53] VITALS: BP 130/83; PULSE 102; TEMP 36.4; O2SAT 96
== END 2025-08-05 23:59 | disposition home or self-care (01) ==
PROVIDERS: Nurse Practitioner; PCP Registered Nurse; Visit Provider Internal Medicine Medical Oncology
DX: Z53.9 Procedure and treatment not carried out, unspecified reason; Z51.11 Encounter for antineoplastic chemotherapy; C34.11 Malignant neoplasm of upper lobe, right bronchus or lung; D64.9 Anemia, unspecified; Z79.899 Other long term (current) drug therapy
CPT/HCPCS: 36430; 78815; 80053; 82607; 82746; 84443; 85025; 86850; 86900; 86920; 96375; 96377; 96413; 99214; A9552; J2405; J2506; J7050; J9351; J9999; P9016

== ENCOUNTER 2025-08-08 17:37 | Inpatient (IN) | payer MEDICARE, MEDICAID, SELFPAY ==
--- OUTSIDE RECORDS SUMMARY | 2025-08-08 17:42 | XMS_ITS | Encounter Summary ---
Author Organization [facility] Address [address] [place] [address] Care Team Providers Care Product Safety Officer Name Role Phone Radha Cowan MD Primary Care Provider Encounter Details Date Type Department Care Team (Latest Contact Info) Description 12/23/1998 Outpatient Historical [facility] Augusto Nicole Jr., MD [address] [place] [id number] Dysthymic disorder (Primary Dx); Abdominal pain, unspecified site Social History Tobacco Use Types Packs/Day Years Used Date Smoking Tobacco: Never Assessed Comments Unknown Sex and Gender Information Value Date Recorded Sex Assigned at Not on file Legal Sex Female 3:33 AM 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
--- OUTSIDE RECORDS SUMMARY | 2025-08-08 17:42 | XMS_ITS | Encounter Summary ---
Author Organization [facility] Address [address] [place] [address] Care Team Providers Care Ceo & Co Founder Name Role Phone Radha Cowan MD Primary Care Provider [phone] Encounter Details Date Type Department Care Team (Latest Contact Info) Description 06/23/1999 Outpatient Historical [facility] Betito Fields NO ADDRESS ON FILE Other malaise and fatigue (Primary Dx); Elevated blood pressure reading without diagnosis of hypertension; Other diseases of trachea and bronchus, not elsewhere classified Social History Tobacco Use Types Packs/Day Years Used Date Smoking Tobacco: Never Assessed Comments Unknown Sex and Gender Information Value Date Recorded Sex Assigned at Not on file Legal Sex Female 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
--- OUTSIDE RECORDS SUMMARY | 2025-08-08 17:42 | XMS_ITS | Encounter Summary ---
Author Organization [facility] Address [address] [place] [address] Care Team Providers Care .Net Architect Name Role Phone Radha Cowan MD Primary Care Provider [phone] Reason for Referral * Radiology Services (Routine) - Closed Specialty Diagnoses / Procedures Referred By Contac t Referred To Contact Radiology Diagnoses Lower extremity pain, right Procedures US VENOUS DOPPLER LEG RIGHT Raad Bhatt FNP [address] [place] [address] Phone: tel: fax: [facility] [address] [facility] [address] [place] [address] Phone: tel: fax: Referral ID Status Reason Start Date Expiration Date V isits Requested Visits Authorized [id number] Closed [facility] CTS to Schedule (SGF) 06/17/2018 07/18/2019 1 1 Encounter Details Date Type Department Care Team (Latest Contact Info) Description 06/17/2018 Ancillary Orders [facility] Centralized Scheduling [address] [facility] [address] [place] [address] Raad Bhatt FNP [address] [place] [address] Lower extremity pain, right Social History Tobacco Use Types Packs/Day Years Used Date Smoking Tobacco: Every Day Cigarettes 1 20 Smokeless Tobacco: Never Alcohol Use Standard Drinks/Week Comments Yes 0 (1 standard drink = 0.6 oz pur e alcohol) occasional Comments No Sex and Gender Information Value Date Recorded Sex Assigned at Not on file Legal Sex Female 3:33 AM VETERINARY RECEPTIONIST Gender Identity Not on file Sexual Orientation [...] PM CDT Narrative 06/20/2018 10:03 PM CDT [facility] Radiology Services - Noninvasive Vascular [address] [address] Noninvasive Vascular Lab Venous Exam Unilateral Lower Extremity Duplex Patient: Marli Eli Study ID: US VENOUS DOPPLE Gender: F : 1955 Age: 63 Room: Height: Weight: BSA: Pt status: Outpatient Study Date: 06/17/2018 Study Time: 02:07:05 PM BSA: Ordering: Raad Bhatt Interpreting:Christo Hanson MD, RPVI Educational Program Director: Henok Bailey Summary Impression: No evidence of [...] Procedure Note Christo Hanson MD - 06/20/2018 [facility] Radiology Services - Noninvasive Vascular [address] [address] Noninvasive Vascular Lab Venous Exam Unilateral Lower Extremity Duplex Patient: Marli Eli Study ID: US VENOUS DOPPLE Gender: F : 1955 Age: 63 Room: Height: Weight: BSA: Pt status: Outpatient Study Date: 06/17/2018 Study Time: 02:07:05 PM BSA: Ordering: Raad Bhatt Interpreting:Christo Hanson MD, RPVI Educational Program Director: Henok Bailey Summary Impression: No evidence of [...] MD, RPVI Confirmed 06/20/2018 22:03 Raad Bhatt [facility] ORDERABLES Final Resul t documented in this encounter Visit Diagnoses Diagnosis Lower extremity pain, right Lower extremity pain, right documented in this encounter Additional Health Concerns Infection Onset Date Last Indicated Resolved Time R/O COVID-19 05/16/2020 05/16/2020 05/18/2020 12:3 1 AM CDT R/O COVID-19 07/25/2020 07/25/2020 07/27/2020 5:01 AM VETERINARY RECEPTIONIST R/O COVID-09/30/2020 09/30/2020 09/30/2020 7:23 PM VETERINARY RECEPTIONIST documented as of this encounter Care Teams .Net Architect Relationship Specialty Start Date End Date Radha Cowan MD [address] [address] PCP - General Family Practice 10/24/20 documented as of this encounter
--- OUTSIDE RECORDS SUMMARY | 2025-08-08 17:42 | XMS_ITS | Encounter Summary ---
Author Organization [facility] Address [address] [place] [address] Care Team Providers Care Terrapin Fisher Name Role Phone Radha Cowan MD Primary Care Provider Encounter Details Date Type Department Care Team (Latest Contact Info) Description 06/26/1999 Outpatient Historical [facility] Corey Burkett, Augusto Tang MD [facility] [place] [address] Esophageal reflux (Primary Dx); Headache(784.0); Insomnia with sleep apnea, unspecified; Need for prophylactic vaccination against Streptococcus pneumoniae (pneumococcus) Social History Tobacco Use Types Packs/Day Years Used Date Smoking Tobacco: Never Assessed Comments Unknown Sex and Gender Information Value Date Recorded Sex Assigned at Not on file Legal Sex Female 3:33 AM PSYCHOLOGY LECTURER Gender Identity Not on file Sexual [...] R/O COVID-19 07/25/2020 07/25/2020 07/27/2020 5:01 AM PSYCHOLOGY LECTURER R/O COVID-19 09/30/2020 09/30/2020 09/30/2020 7:23 PM PSYCHOLOGY LECTURER documented as of this encounter Care Teams Terrapin Fisher Relationship Specialty Start Date End Date Radha Cowan MD [address] [address] PCP - General Family Practice 10/24/20 documented as of this encounter
--- OUTSIDE RECORDS SUMMARY | 2025-08-08 17:42 | XMS_ITS | Encounter Summary ---
Author Organization [facility] Address [address] [place] [address] Care Team Providers Care Neon Pumper Name Role Phone Radha Cowan MD Primary Care Provider [phone] Encounter Details Date Type Department Care Team (Latest Contact Info) Description 06/21/2018 Ancillary Orders [facility] Admitting [address] [place] [address] Raad Bhatt, LIBRARY CIRCULATION TECHNICIAN [address] [place] [phone] Osteoarthritis of both knees, unspecified osteoarthritis type [...] file Legal Sex Female 3:33 AM ASSEMBLER BODY Gender Identity Not on file Sexual Orientation [...] medial tibial femoral compartments bilaterally. Raad Bhatt LIBRARY CIRCULATION TECHNICIAN DIAGNOSTIC IMAGING ORDERABL ES Final Result documented in this encounter Visit Diagnoses Diagnosis Osteoarthritis of both knees, unspecified osteoarthritis type Osteoarthritis of both knees, unspecified osteoarthritis type documented in this encounter Additional Health Concerns Infection Onset Date Last Indicated Resolved Time R/O COVID-19 05/16/2020 05/16/2020 05/18/2020 12:3 1 AM CDT R/O COVID-19 07/25/2020 07/25/2020 07/27/2020 5:01 AM ASSEMBLER BODY R/O COVID-19 09/30/2020 09/30/2020 09/30/2020 7:23 PM ASSEMBLER BODY documented as of this encounter Care Teams Neon Pumper Relationship Specialty Start Date End Date Radha Cowan MD [address] [address] PCP - General Family Practice 10/24/20 documented as of this encounter
--- OUTSIDE RECORDS SUMMARY | 2025-08-08 17:42 | XMS_ITS | Patient Health Record ---
Author Organization [facility] Address [address] [place] [address] Care Team Providers Care Barrel Maker Name Role Phone Augusto Nicole [phone] Allergies Allergen (clinical drug ingredient) Drug/Non Drug [...] Status W/U Status Risk Notes Problem Hypertension (22690280) Hypertension (401.1) 2010 Active confirmed [id number]- Problem Peripheral neuropath y (673500997) Peripheral neuropathy (356.9) 2015 Active confirmed [id number]- Problem Scabies (678104911) Scabies (133.0) 12/05 Problem resolved confirmed [id number]- Problem Bipolar affective disorder, currently depressed, mild (846719017) Bipolar I disorder, most recent episode (or current) depressed, mild (296.51) 2009 Problem resolved confirmed [id number]- Problem Morbid obesity (173133101) Morbid obesity (278.01) 2003 Problem resolved confirmed [id number]- Problem Subarachnoid hemorrhage (04961858) Subarachnoid hemorrhage (430) 2010 Problem resolved confirmed [id number]- Problem Acute respiratory failure (20815444) Acute respiratory failure (518.81) 2016 Problem resolved confirmed [id number]- Problem Female stress incontinence (20480489) Female stress incontinence (625.6) 2013 Problem resolved confirmed [id number]- Problem Altered consciousnes s (6120721) Transient alteration of awareness (780.02) 2007 Problem resolved confirmed [id number]- Problem Headache (40925469) Headache (784.0) 04/06 Problem resolved confirmed [id number]- Problem Shortness of breath (631133968) Shortness of breath (786.05) 2007 Problem resolved confirmed [id number]- Problem Wheezing (28671613) Wheezing (786.07) 2010 Problem resolved confirmed [id number]- Problem Cough (15350501) Cough (786.2) 2005 Problem resolved confirmed [id number]- Problem Heartburn (39737714) Heartburn (787.1) 2007 Problem resolved confirmed [id number]- Problem Diarrhea (70900938) Diarrhea (787.91) 2007 Problem resolved confirmed [id number]- Problem Dysuria (35525542) Dysuria (788.1) 2008 Problem resolved confirmed [id number]- Problem Urge incontinence of urine (55346816) Urge incontinence (788.31) 2007 Problem resolved confirmed [id number]- Problem Urinary frequency (566620687) Urinary frequency (788.41) 2011 Problem resolved confirmed [id number]- Problem Gynecological examination normal (075609774002038) Routine gynecological examination (V72.31) 2008 Problem resolved confirmed [id number]- Problem Sleep apnea (19595751) Sleep apnea (780.57) 2014 Problem resolved confirmed [id number]- Problem Rash (870324304) Rash (782.1) 2011 Problem resolved confirmed [id number]- Problem Depression (203351173) Depression (311) 2004 Problem resolved confirmed [id number] [id number]- Problem Low back pain (783069701) Low back pain (724.2) 2010 Problem resolved confirmed [id number]- Problem Thoracic back pain (096627996) Upper back pain (724.1) 2008 Problem resolved confirmed [id number]- Problem Headache (37080754) Headache (307.81) 2009 Problem resolved confirmed [id number]- Problem Hypercholesterolemia (85991665) Hypercholesterolemia (272.0) 2003 Problem resolved confirmed [id number]- Problem 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.89) 2009 Problem resolved confirmed Mane-[id number]- Problem Major depression, single episode (21388393) Major depression, single episode, unspecified (296.20) 2003 Problem resolved confirmed [id number]- Problem Tuberculosis screening (333293802) Screening for pulmonary tuberculosis (V74.1) 2010 Problem resolved confirmed [id number] [id number]- Problem Shortness of breath (204686972) Shortness of breath (786.09) 2010 Problem resolved confirmed Mane-[id number] [id number]- Problem Shoulder pain (76056632) Shoulder pain (719.41) 2004 Problem resolved confirmed [id number]- Problem Onychomycosis caused by dermatophyte (441763574) Toe onychomycosis (110.1) 2004 Problem resolved confirmed Mane-98 5911- Problem Nosebleed (127501778) Nosebleed (784.7) 0 2008 Problem resolved confirmed Mane-98 [id number]- Problem Allergic rhinitis caused by pollen (96395197) Allergies (477.0) 2014 Problem resolved confirmed Mane-98 [id number]- Problem Bruising (487230250) Bruising (782.7) 2008 Problem resolved confirmed Mane-98 [id number]- Problem Chest pain (24573481) Chest pain (786.50) 2007 Problem resolved confirmed Mane-98 [id number]- Problem Acute exacerbation o f chronic obstructive airways disease (088397183) Chronic bronchitis, obstructive, with (acute) exacerbation (491.21) 2016 Problem resolved confirmed [id number]- Problem Disorder of hematopoietic system (14483543) Other abnormal findings on blood examination (790.99) 2015 Problem resolved confirmed [id number]-98 [id number]- Problem Disorder of hematopoietic system (46063153) Other abnormal laboratory result on blood (790.99) 2007 Problem resolved confirmed Mane-98 [id number]- Problem Pleural pain (7687612) Pleural pain (786.52) 2011 Problem resolved confirmed Mane-98 [id number]- Problem Sore throat (407511221) Sore Throat (462) 2007 Problem resolved confirmed Mane-98 [id number]- Problem Tobacco abuse (3614228026) Tobacco abuse (305.1) 2003 Problem resolved confirmed Mane-98 [id number]- Problem Acute exacerbation o f chronic obstructive airways disease (018964765) Acute exacerbation of chronic obstructive pulmonary disease (COPD) (491.21) 2013 Problem resolved confirmed Mane-98 [id number]- Problem Poisoning caused by antidepressant (22413302) Antidepressant medication overdose (969.0) 2007 Problem resolved confirmed Mane-98 5911- Problem Tobacco user (758259973) Cigarette smoking (305.1) 2009 Problem resolved confirmed Mane-98 [id number]- Problem Depressive disorder (46765189) Depressive disorder not elsewhere classified (311) 2009 Problem resolved confirmed Mane-98 5911- Problem Gastroesophageal reflux disease (298203403) Gastroesophageal reflux disease (530.81) 2014 Problem resolved confirmed Mane-98 5911- Problem Generalized abdomina l pain (049174960) Generalized abdominal pain (789.07) 2013 Problem resolved confirmed Mane-98 5911- Problem Solitary nodule of lung (463346504) Lung nodule (518.89) 2013 Problem resolved confirmed Mane-98 5911- Problem Lymphadenopathy (82845048) Lymphadenopathy (785.6) 2015 Problem resolved confirmed Mane-98 5911- Problem Family history of malignant neoplasm of ovary (387442222) Family history of ovarian cancer (V16.41) 2007 Problem resolved confirmed Mane-98 5911- Problem Mixed hyperlipidemia (981541409) Hypercholesterolemia with hypertriglyceridemia (272.2) 2005 Problem resolved confirmed Mane-98 5911- Problem Insomnia (679548212) Insomnia (307.41) 2008 Problem resolved confirmed Mane-98 5911- Problem Pain in limb (16142950) Leg pain (729.5) 2006 Problem resolved confirmed Mane-98 5911- Problem Mitral valve regurgitation (39914659) Mitral valve regurgitation (424.0) 2004 Problem resolved confirmed Mane-98 5911- Problem Precordial pain (85991944) Precordial chest pain (786.51) 2004 Problem resolved confirmed Mane-98 5911- Problem Sinus tachycardia (23789110) Sinus tachycardia (427.89) 2008 Problem resolved confirmed Mane-98 5911- Problem Sleep apnea (84716420) ABIGAIL (780.57) 2013 Problem resolved confirmed Mane-98 5911- Problem Serous otitis media (75016849) Serous otitis media (381.4) 2006 Problem resolved confirmed Mane-98 5911- Problem Tobacco user (673363385) Tobacco abuse affecting health (305.1) 2012 Problem resolved confirmed Mane-98 5911- Problem Needs influenza immunization (513936927) Vaccination against other viral diseases, Influenza (V04.81) 2009 Problem resolved confirmed Mane-98 5911- Problem Candidiasis (98448451) Yeast infection (112.9) 2015 Problem resolved confirmed Mane-98 5911- Problem Anxiety depression (311620437) Anxiety with depression (300.4) 2007 Problem resolved confirmed Mane-98 5911- Problem Common migraine (82498498) Common migraine (346.10) 2009 Problem resolved confirmed Mane-98 5911- Problem Obstructive sleep apnea (54343738) Obstructive sleep apnea (780.57) 2009 Problem resolved confirmed Mane-98 5911- Problem Nondependent alcohol abuse, episodic (166746068) Alcohol abuse, episodic (305.02) 2010 Problem resolved confirmed Mane-98 5911- Problem Chronic obstructive pulmonary disease (93957182) Chronic obstructive pulmonary disease (496) 2008 Problem resolved confirmed Mane-98 5911- Problem Migraine with aura (3825360) Classic migraine (346.00) 2007 Problem resolved confirmed Mane-98 5911- Problem Constipation (48854246) Constipation (564.01) 2009 Problem resolved confirmed Mane-98 5911- Problem Depression (029118673) Depression (296.20) 2003 Problem resolved confirmed Mane-98 5911- Problem Exposure to coug h and potentially infected aerosol from TB patient (V15.85) 2009 Problem resolved confirmed Mane-98 5911- Problem Knee pain (5604753794) Knee pain (719.46) 2015 Problem resolved confirmed Mane-98 5911- Problem Urinary tract infection (59653067) Urinary tract infection (595.0) 2008 Problem resolved confirmed Mane-98 5911- Problem Elbow pain (13918537) Elbow pain (719.42) 2012 Problem resolved confirmed Mane-98 5911- Problem Heel pain (5159940) Heel pain (729.5) 2007 Problem resolved confirmed Mane-98 5911- Problem Pneumococcal pneumonia (273789624) Acute lobar pneumonia (481) 2008 Problem resolved confirmed Mane-98 5911- Problem Chronic insomnia (451342963) Chronic insomnia (307.42) 2012 Problem resolved confirmed Mane-98 5911- Problem COPD - Chronic obstructive pulmonary disease (07661146) COPD (496) 2012 Problem resolved confirmed Mane-98 5911- Problem Tinea pedis (1858053) Tinea pedis (110.4) 2013 Problem resolved confirmed Mane-98 5911- Problem Acute upper respiratory infection (75165648) Upper respiratory illness (465.8) 2009 Problem resolved confirmed Mane-98 5911- Problem Vaginal discharge (884407709) Vaginal discharge (616.10) 2009 Problem resolved confirmed Mane-98 5911- Problem Epigastric pain (63220341) Epigastric abdominal pain (789.06) 2004 Problem resolved confirmed Mane-98 5911- Problem Insect bite (934255481) Insect bite (919.4) 2011 Problem resolved confirmed Mane-98 5911- Problem Shoulder joint pain (210006526) Joint pain, shoulder region (719.41) 2004 Problem resolved confirmed Mane-98 5911- Problem Mild major depression, single episode (00356484) Major depression, single episode, mild (296.21) 2011 Problem resolved confirmed Mane-98 5911- Problem Coronary arteriosclerosis (disorder) (41059156) Coronary artery disease, of [place] coronary artery (414.01) 2004 Problem resolved confirmed Mane-98 5911- Problem Type II diabetes mellitus without complication (812370027) NIDDM (250.00) 2005 Problem resolved confirmed Mane-98 5911- Problem Pedal edema (082646900) Pedal edema (782.3) 2015 Problem resolved confirmed Mane-98 5911- Problem Possible STD exposure (V15.85) 2010 Problem resolved confirmed Mane-98 5911- Problem Diabetes mellitus type 2 (disorder) (40421033) Type 2 diabetes (250.00) 2005 Problem resolved confirmed Mnae-98 [id number]- Problem Screening for malignant neoplasm of breast (572179970) Screening for breast cancer, unspecified (V76.10) 2015 Problem resolved confirmed Mane-98 5911- Plan Of Treatment No Information Medical (General) History Surgical History Surgery Date(Month/Year) AppendectomyCholecystectomy: 1979; Tubal Ligation: 1986;
--- OUTSIDE RECORDS SUMMARY | 2025-08-08 17:42 | XMS_ITS | Encounter Summary ---
Author Organization [facility] Address [address] [place] [address] Care Team Providers Care Vice President And Portfolio Manager Name Role Phone Radha Cowan MD Primary Care Provider Encounter Details Date Type Department Care Team (Latest Contact Info) Description 04/17/1999 Outpatient Historical [facility] Augusto Nicole Jr., MD [address] [place] [phone] Chest pain, unspecified (Primary Dx); Edema; Major depressive disorder, single episode, unspecified Social History Tobacco Use Types Packs/Day Years Used Date Smoking Tobacco: Never Assessed Comments Unknown Sex and Gender Information Value Date Recorded Sex Assigned at Not on file Legal Sex Female 3:33 AM INFORMATION SECURITY ASSOCIATE Gender Identity Not on file Sexual [...] R/O COVID-19 07/25/2020 07/25/2020 07/27/2020 5:01 AM INFORMATION SECURITY ASSOCIATE R/O COVID-19 09/30/2020 09/30/2020 09/30/2020 7:23 PM INFORMATION SECURITY ASSOCIATE documented as of this encounter Care Teams Vice President And Portfolio Manager Relationship Specialty Start Date End Date Radha Cowan MD [address] [phone] PCP - General Family Practice 10/24/20 documented as of this encounter
--- OUTSIDE RECORDS SUMMARY | 2025-08-08 17:42 | XMS_ITS | Encounter Summary ---
Author Organization [facility] Address [address] [place] [address] Care Team Providers Care Remote Sensing Specialist Name Role Phone Radha Cowan MD Primary Care Provider [phone] Encounter Details Date Type Department Care Team (Latest Contact Info) Description 06/21/2018 Ancillary Orders [facility] Admitting [address] [place] [address] Raad Bhatt, SHERIFF OFFICER [address] [place] [phone] Osteoarthritis of both knees, unspecified osteoarthritis type Social History Tobacco Use Types Packs/Day Years Used Date Smoking Tobacco: Every Day Cigarettes 1 20 Smokeless Tobacco: Never Alcohol Use Standard Drinks/Week Comments Yes 0 (1 standard drink = 0.6 oz pur e alcohol) occasional Comments No Sex and Gender Information Value Date Recorded Sex Assigned at Not on file Legal Sex Female 3:33 AM DELINQUENCY PREVENTION OFFICER Gender Identity Not on file Sexual [...] R/O COVID-19 07/25/2020 07/25/2020 07/27/2020 5:01 AM DELINQUENCY PREVENTION OFFICER R/O COVID-19 09/30/2020 09/30/2020 09/30/2020 7:23 PM DELINQUENCY PREVENTION OFFICER documented as of this encounter Care Teams Remote Sensing Specialist Relationship Specialty Start Date End Date Radha Cowan MD [address] [phone] PCP - General Family Practice 10/24/20 documented as of this encounter
--- OUTSIDE RECORDS SUMMARY | 2025-08-08 17:42 | XMS_ITS | Clinical Summary ---
Author Organization [facility] Address [facility] [place] [address] Care Team Providers Care Measurement Department Chief Clerk Name Role Phone Radha Cowan MD Primary Care Provider [phone] Allergies Active Allergy Reactions Criticality Noted Date [...] 6 months. 1 Each 0 Active Insulin [place], Disposable, (Lite Touch Insulin Pen [place]) 31 gauge x 5/16 Needle 100 Each by [facility].(Non-Drug; Combo Route) route. Active metFORMIN (GLUCOPHAGE) 1,000 [...] hyperglycemia, without long-term current use of insulin ([facility]),Chroni c obstructive pulmonary disease, unspecified COPD type ([facility]),Benign hypertension Take 1 Tablet (150 mg) [...] deliveryIndicati ons:Respiratory failure with hypoxia, unspecified chronicity ([facility]) Home Oxygen Concentrator yes at 3 [...] complication, without long-term current use of insulin ([facility]) MAMMO SCREEN BILAT W OR WO CAD Routine 10/30/2020 1:26 PM SPOT CLEANER Screening mammogram, encounter for MICROALBUMIN/CREATI NINE RATIO, [...] 93 <100 mg/dL 01/08/2021 9:13 PM CDT [facility] Blood Venipuncture / Unknown 01/08/2021 11:00 AM CDT 01/08/2021 7:53 PM CDT Narrative [facility]OMAR GARCIA - 01/08/2021 9:13 PM [...] ORDERABLES Final Re sult Performing Organization Address [facility]/ZIP Co de Phone Number [facility]OMAR RADHA CLIA# [id number] [address] [place] [address] * (ABNORMAL) HEMOGLOBIN A1C (01/08/2021 11:00 AM CDT) HEMOGLOBIN A1C 7.5(H) See Comment % 01/08/2021 8:17 PM CDT [facility]OMAR GARCIA EST. AVG GLUCOSE, A1C 169 mg/dL 01/08/2021 8:17 PM CDT [facility]OM[facility] GARC[facility] Blood Venipuncture / Unknown 01/08/2021 11:00 AM CDT 01/08/2021 7:53 PM CDT [facility]-PARK RADHA - 01/08/2021 8:17 PM CDT HGB A1C INTERPRETATION NORMAL: <5.7% PRE-DIABETES: 5.7 - 6.4% DIABETES: 6.5% OR GREATER Falsely low A1C measurements can occur when: 1. Anemia and/or hemolytic anemia is present. 2. Hemoglobin variants present. 3. Renal failure. 4. Transfusion of blood product in the last 120 days. We recommend ordering a fructosamine test([id number]) to more accurately assess glycemic status if any of the above conditions are present. Juancarlos DELGADO CHEMISTRY ORDERABLES Final Re sult Performing Organization Address [facility]/ZIP Co de Phone Number [facility]OM[facility] GARCIA CLIA# [id number] [address] [place] [address] * MAMMO SCREEN BILAT W OR WO CAD (10/30/2020 1:26 PM SPOT CLEANER) Anatomical Region Laterality Modality Breast Bilateral Mammography 10/30/2020 1:29 PM SPOT CLEANER Impressions 11/03/2020 11:28 AM SPOT CLEANER : Focal asymmetry in the upper outer quadrant of the left breast for which additional imaging evaluation is recommended. BI-RADS ASSESSMENT: 0 - Incomplete Recommendation: Additional Imaging [id number] Narrative 11/03/2020 11:28 AM SPOT CLEANER EXAM: MAMMO SCREEN BILAT W OR WO [...] Reference Range mg/dL 12/19/2019 8:46 PM CDT [facility] CREATININE, URINE 66.3 29.0 - 226.0 mg/dL 12/19/2019 8:46 PM CDT [facility] Comment:Reference Range vari es with fluid intake and diet. MICROALBUMIN/C REAT RATIO, UR 18.1 <25.0 mg/g 12/19/2019 8:46 PM CDT [facility] Urine URINE SPECIMEN OBTAINED BY CLEAN CATCH PROCEDURE / Unknown Collection / Unknown 12/19/2019 9:05 AM CDT 12/19/2019 7:43 PM CDT Narrative [facility] RAD[facility] - 12/19/2019 8:46 PM CDT Condition Microalbumin/Creat ratio Normal Males <17 Normal Females <25 Microalbuminuria Males 17-299 Microalbuminuria Females 25-299 Overt proteinuria >=300 us [place] NP URINE ORDERABLES Final Result [facility]ARC[facility] CLIA# [id number] [facility] [place] [address] from Last 3 Months or Most Recently Relevant to Health Maintenance [place] [address] [place] [address] AND [facility] MEDICAID [place] Advance Directives For more information, please contact: [phone] Documents on File Type Date Recorded Patient [facility] [employer] Expl anation Advance Directive POA 01/24/2012 7:28 AM Advance Directive Living Will 01/24/2012 Advance Directive POA 01/22/2012 10:32 AM Health Care Directive * Full Code (Latest Code Status on File) Date Activated Date Inactivated Comments 07/18/2015 11:12 PM 07/24/2015 2:39 PM Care Teams Measurement Department Chief Clerk Relationship Specialty Start Date End Date Radha Cowan MD [address] [place] [phone] PCP - General Family Practice 10/24/20
--- OUTSIDE RECORDS SUMMARY | 2025-08-08 17:42 | XMS_ITS | Encounter Summary ---
Author Organization [facility] Address [address] Charlesn: [place] [address] Care Team Providers Care Donor Center Technician Name Role Phone Radha Cowan MD Primary Care Provider [phone] Encounter Details Date Type Department Care Team (Late st Contact Info) Description 11/21/1999 Outpatient Historical Augusto Nicole Jr., MD [address] [place] [phone] Social History Tobacco Use Types Packs/Day Years Used Date Smoking Tobacco: Never Assessed Comments Unknown Sex and Gender Information Value Date Recorded Sex Assigned at Not on file Legal Sex Female 3:33 AM LINUX VMWARE ADMINISTRATOR Gender Identity Not on file Sexual Orientation Not on file documented as of this encounter Plan of Treatment Not on file documented as of this encounter Visit Diagnoses Not on filedocumented in this encounter Additional Health Concerns Infection Onset Date Last Indicated Resolved Time R/O COVID-19 05/16/2020 05/16/2020 05/18/2020 12:3 1 AM CDT R/O COVID-19 07/25/2020 07/25/2020 07/27/2020 5:01 AM LINUX VMWARE ADMINISTRATOR R/O COVID-19 09/30/2020 09/30/2020 09/30/2020 7:23 PM LINUX VMWARE ADMINISTRATOR documented as of this encounter Care Teams Donor Center Technician Relationship Specialty Start Date End Date Radha Cowan MD [address] [place] [phone] PCP - General Family Practice 10/24/20 documented as of this encounter
--- OUTSIDE RECORDS SUMMARY | 2025-08-08 17:42 | XMS_ITS | Encounter Summary ---
Author Organization [facility] Address [address] [place] [address] Care Team Providers Care Tableau Lead Name Role Phone Radha Cowan MD Primary Care Provider Encounter Details Date Type Department Care Team (Latest Contact Info) Description 12/06/1998 Outpatient Historical [facility] Augusto Nicole Jr., MD [address] [place] [phone] Dietary surveil/addictions counselor (Primary Dx) Social History Tobacco Use Types Packs/Day Years Used Date Smoking Tobacco: Never Assessed Comments Unknown Sex and Gender Information Value Date Recorded Sex Assigned at Not on file Legal Sex Female 3:33 AM PLASTIC MOLDING OPERATOR Gender Identity Not on file Sexual Orientation Not on file documented as of this encounter Plan of Treatment Not on file documented as of this encounter Visit Diagnoses Diagnosis Dietary surveil/addictions counselor- Primary Dietary surveillance and counseling documented in this encounter Additional Health Concerns Infection Onset Date Last Indicated Resolved Time R/O COVID-19 05/16/2020 05/16/2020 05/18/2020 12:3 1 AM CDT R/O COVID-19 07/25/2020 07/25/2020 07/27/2020 5:01 AM PLASTIC MOLDING OPERATOR R/O COVID-19 09/30/2020 09/30/2020 09/30/2020 7:23 PM PLASTIC MOLDING OPERATOR documented as of this encounter Care Teams Tableau Lead Relationship Specialty Start Date End Date Radha Cowan MD [address] [facility] [address] [place] [address] PCP - General Family Practice 10/24/20 documented as of this encounter
--- OUTSIDE RECORDS SUMMARY | 2025-08-08 17:42 | XMS_ITS | Encounter Summary ---
Author Organization [facility] Address [address] [place] [address] Care Team Providers Care Agricultural Pilot Name Role Phone Radha Cowan MD Primary Care Provider [phone] Encounter Details Date Type Department Care Team (Latest Contact Info) Description 02/20/1999 Outpatient Historical [facility] Corey Burkett, Augusto Tang MD [address] [place] [phone] Vaginitis and vulvovaginitis, unspecified (Primary Dx); Bipolar I disorder, most recent episode (or current) unspecified ([facility]) Social History Tobacco Use Types Packs/Day Years Used Date Smoking Tobacco: Never Assessed Comments Unknown Sex and Gender Information Value Date Recorded Sex Assigned at Not on file Legal Sex Female 3:33 AM BRIDGE INSPECTOR Gender Identity Not on file Sexual [...] R/O COVID-19 07/25/2020 07/25/2020 07/27/2020 5:01 AM BRIDGE INSPECTOR R/O COVID-19 09/30/2020 09/30/202009/3009/30/2020 7:23 PM BRIDGE INSPECTOR documented as of this encounter Care Teams Agricultural Pilot Relationship Specialty Start Date End Date Radha Cowan MD [address] [phone] PCP - General Family Practice 10/24/20 documented as of this encounter
--- OUTSIDE RECORDS SUMMARY | 2025-08-08 17:42 | XMS_ITS | Encounter Summary ---
Author Organization [facility] Address [address] [place] [address] Care Team Providers Care Doctor Podiatric Medicine Name Role Phone Radha Cowan MD Primary Care Provider [phone] Encounter Details Date Type Department Care Team (Latest Contact Info) Description 03/15/2000 Outpatient Historical [facility] Corey Burkett, Augusto Tang MD [address] [place] [phone] Unspecified urinary incontinence (Primary Dx); Screening for malignant neoplasm of the cervix; Unspecified hemorrhoids without mention of complication; Screening for malignant neoplasm of the rectum Social History Tobacco Use Types Packs/Day Years Used Date Smoking Tobacco: Never Assessed Comments Unknown Sex and Gender Information Value Date Recorded Sex Assigned at Not on file Legal Sex Female 3:33 AM YARD OPERATOR Gender Identity Not on file Sexual [...] R/O COVID-19 07/25/2020 07/25/2020 07/27/2020 5:01 AM YARD OPERATOR R/O COVID-19 09/30/2020 09/30/2020 09/30/2020 7:23 PM YARD OPERATOR documented as of this encounter Care Teams Doctor Podiatric Medicine Relationship Specialty Start Date End Date Radha Cowan MD [address] [address] PCP - General Family Practice 10/24/20 documented as of this encounter
--- OUTSIDE RECORDS SUMMARY | 2025-08-08 17:42 | XMS_ITS | Encounter Summary ---
Author Organization [facility] Address [address] [place] [address] Care Team Providers Care Gift Manager Name Role Phone Radha Cowan MD Primary Care Provider [phone] Encounter Details Date Type Department Care Team (Latest Contact Info) Description 11/19/1999 Outpatient Historical [facility] Augusto Nicole Jr., MD [address] [place] [phone] Other convulsions (Primary Dx); Leiomyoma of uterus, unspecified; Screening for malignant neoplasm of the cervix Social History Tobacco Use Types Packs/Day Years Used Date Smoking Tobacco: Never Assessed Comments Unknown Sex and Gender Information Value Date Recorded Sex Assigned at Not on file Legal Sex Female 3:33 AM BROKER ASSISTANT Gender Identity Not on file Sexual [...] R/O COVID-19 07/25/2020 07/25/2020 07/27/2020 5:01 AM BROKER ASSISTANT R/O COVID-19 09/30/2020 09/30/2020 09/30/2020 7:23 PM BROKER ASSISTANT documented as of this encounter Care Teams Gift Manager Relationship Specialty Start Date End Date Radha Cowan MD [address] [phone] PCP - General Family Practice 10/24/20 documented as of this encounter
--- OUTSIDE RECORDS SUMMARY | 2025-08-08 17:42 | XMS_ITS | Encounter Summary ---
Author Organization [facility] Address [address] [place] [address] Care Team Providers Care Working Supervisor Name Role Phone Radha Cowan MD Primary Care Provider [phone] Encounter Details Date Type Department Care Team (Latest Contact Info) Description 10/15/2017 Ancillary Orders [facility] Admitting [address] [place] [address] Raad Bhatt, APPLICATIONS PACKAGER [address] [place] [address] Osteoarthritis of both knees, unspecified [...] on file Legal Sex Female 3:33 AM STAGE HAND Gender Identity Not on file Sexual Orientation Not on file Occupation Industry Job Start Date Job End Date Not on file Not on file Not on file Not on file documented as of this encounter Plan of Treatment Not on file documented as of this encounter Results * XR KNEE 3 VW BILAT (10/15/2017 11:56 AM STAGE HAND) Anatomical Region Laterality Modality Lower Extremity Computed Radiogr aphy 10/15/2017 11:5 6 AM STAGE HAND Impressions 10/15/2017 9:02 PM STAGE HAND IMPRESSION: Mild degenerative changes. [id number] Narrative 10/15/2017 9:02 PM STAGE HAND Exam: XR KNEE 3 VW BILAT Date/Time [...] tissues appear appropriate. IMPRESSION: Mild degenerative changes. [id number] Raad Bhatt APPLICATIONS PACKAGER DIAGNOSTIC IMAGING ORDERABL ES Final Result documented in this encounter Visit Diagnoses Diagnosis Osteoarthritis of both knees, unspecified osteoarthritis type Osteoarthritis of both knees, unspecified osteoarthritis type documented in this encounter Additional Health Concerns Infection Onset Date Last Indicated Resolved Time R/O COVID-19 05/16/2020 05/16/2020 05/18/2020 12:3 1 AM CDT R/O COVID-19 07/25/2020 07/25/2020 07/27/2020 5:01 AM STAGE HAND R/O COVID-19 09/30/2020 09/30/2020 09/30/2020 7:23 PM STAGE HAND documented as of this encounter Care Teams Working Supervisor Relationship Specialty Start Date End Date Radha Cowan MD [address] [phone] PCP - General Family Practice 10/24/20 documented as of this encounter
--- OUTSIDE RECORDS SUMMARY | 2025-08-08 17:42 | XMS_ITS | Encounter Summary ---
Author Organization [facility] Address [address] [place] [address] Phone Care Team Providers Care Warehouse Administrative Assistant Name Role Phone Radha Xiong MD Primary Care Provider [phone] Reason for Referral * Consultation (Routine) - Authorized Specialty Diagnoses / Procedures Referred By Finn t Referred To Contact Pulmonary Disease / Pulmonology Diagnoses Airway obstruction Sabas Curry Chi, MD [address] [place] [address] Phone: tel: fax: [facility] (All Locations) Referral ID Status Reason Start Date Expiration Date Visits Requested Visits Authorized [id number] Authorized Specialty Services Required 08/06/2025 09/05/2026 1 1 Question Answer Please select the performing region: [facility] (All Locations) [[id number]] # of visits: 1 ET MAKER Encounter Details Date Type Department Care Team (Late st Contact Info) Description 08/06/2025 Orders Only [facility] Medicine Pulmonary [address] [facility] 8th [place] [address] [place] [address] Sabas Curry Chi, MD [address] [place] [address] Airway obstruction (Primary Dx) Social History Tobacco Use Types Packs/Day Years Used Date Smoking Tobacco: Former Cigarettes Q uit: 03/22/1988 Smokeless Tobacco: Never Personal Safety Answer Date Recorded Have you [...] as of this encounter Plan of Treatment Scheduled Referrals Name Type Priority Associated Diagnoses Orde r Schedule Ambulatory referral to Pulmonology Outpatient Referral Routine Airway obstruction Expected: 08/20/2025 (Approximate), Expires: 08/06/2026 documented as of this encounter Visit Diagnoses Diagnosis Airway obstruction- Primary Other diseases of respiratory system, not elsewhere classified documented in this encounter Care Teams Warehouse Administrative Assistant Relationship Specialty Start Date End Date Radha Xiong MD [address] [place] [address] PCP - General Family Medicine 03/22/24 documented as of this encounter
--- OUTSIDE RECORDS SUMMARY | 2025-08-08 17:42 | XMS_ITS | Encounter Summary ---
Author Organization [facility] Address [address] [place] [address] Care Team Providers Care Mine Analyst Name Role Phone Radha Cowan MD Primary Care Provider Encounter Details Date Type Department Care Team (Latest Contact Info) Description 06/13/1999 Outpatient Historical [facility] Betito Fields NO ADDRESS ON FILE Chest pain, unspecified (Primary Dx) Social History Tobacco Use Types Packs/Day Years Used Date Smoking Tobacco: Never Assessed Comments Unknown Sex and Gender Information Value Date Recorded Sex Assigned at Not on file Legal Sex Female 3:33 AM INTERIM CONTROLLER Gender Identity Not on file Sexual Orientation Not on file documented as of this encounter Plan of Treatment Not on file documented as of this encounter Visit Diagnoses Diagnosis Chest pain, unspecified- Primary documented in this encounter Additional Health Concerns Infection Onset Date Last Indicated Resolved Time R/O COVID-19 05/16/2020 05/16/2020 05/18/2020 12:3 1 AM CDT R/O COVID-19 07/25/2020 07/25/2020 07/27/2020 5:01 AM INTERIM CONTROLLER R/O COVID-19 09/30/2020 09/30/2020 09/30/2020 7:23 PM INTERIM CONTROLLER documented as of this encounter Care Teams Mine Analyst Relationship Specialty Start Date End Date Radha Cowan MD [address] [place] [phone] PCP - General Family Practice 10/24/20 documented as of this encounter
--- OUTSIDE RECORDS SUMMARY | 2025-08-08 17:42 | XMS_ITS | Encounter Summary ---
Author Organization [facility] Address [address] [place] [address] Care Team Providers Care Engineering Mathematician Name Role Phone Radha Cowan MD Primary Care Provider Encounter Details Date Type Department Care Team (Latest Contact Info) Description 05/29/1999 Outpatient Historical [facility] Augusto Nicole Jr., MD [address] [place] [phone] Other seborrheic keratosis (Primary Dx) Social History Tobacco Use Types Packs/Day Years Used Date Smoking Tobacco: Never Assessed Comments Unknown Sex and Gender Information Value Date Recorded Sex Assigned at Not on file Legal Sex Female 3:33 AM SOIL FERTILITY EXTENSION SPECIALIST Gender Identity Not on file Sexual [...] R/O COVID-19 07/25/2020 07/25/2020 07/27/2020 5:01 AM SOIL FERTILITY EXTENSION SPECIALIST R/O COVID-19 09/30/2020 09/30/2020 09/30/2020 7:23 PM SOIL FERTILITY EXTENSION SPECIALIST documented as of this encounter Care Teams Engineering Mathematician Relationship Specialty Start Date End Date Radha Cowan MD [address] [facility] [address] [place] [address] PCP - General Family Practice 10/24/20 documented as of this encounter
--- OUTSIDE RECORDS SUMMARY | 2025-08-08 17:42 | XMS_ITS | Encounter Summary ---
Author Organization [facility] Address [address] [place] [address] Care Team Providers Care Public Events Facilities Rental Manager Name Role Phone Radha Cowan MD Primary Care Provider Encounter Details Date Type Department Care Team (Latest Contact Info) Description 01/06/1999 Outpatient Historical [facility] Augusto Nicole Jr., MD [address] [place] [phone] Insomnia, unspecified (Primary Dx); Depressive disorder, not elsewhere classified Social History Tobacco Use Types Packs/Day Years Used Date Smoking Tobacco: Never Assessed Comments Unknown Sex and Gender Information Value Date Recorded Sex Assigned at Not on file Legal Sex Female 3:33 AM FOREIGN LANGUAGE STENOGRAPHER Gender Identity Not on file Sexual Orientation [...] R/O COVID-19 07/25/2020 07/25/2020 07/27/2020 5:01 AM FOREIGN LANGUAGE STENOGRAPHER R/O COVID-19 09/30/2020 09/30/2020 09/30/2020 7:23 PM FOREIGN LANGUAGE STENOGRAPHER documented as of this encounter Care Teams Public Events Facilities Rental Manager Relationship Specialty Start Date End Date Radha Cowan MD [address] [phone] PCP - General Family Practice 10/24/20 documented as of this encounter
--- OUTSIDE RECORDS SUMMARY | 2025-08-08 17:42 | XMS_ITS | Clinical Summary ---
Author Organization [facility] Address [facility] [place] [address] Care Team Providers Care Alfalfa Dehydrator Operator Name Role Phone Unavailable Primary Care [...] 90 Tablet 0 10/28/19 21 Active Insulin [place], Disposable, 31 gauge x 5/16 Needle 100 Each by [facility].(Non-Drug; Combo Route) route. 04/09/20 20 Active nebulizer [...] complication, without long-term current use of insulin ([facility]) Take 1 Tablet (20 mg) by mouth daily. 90 Tablet 1 08/22/20 20 Active buPROPion HCL (WELLBUTRIN SR) 150 mg Sustained Release 12 hour tabletIndication s:Type 2 diabetes mellitus with hyperglycemia, without long-term current use of insulin ([facility]),Chroni c obstructive pulmonary disease, unspecified COPD type ([facility]),Benign hypertension Take 1 Tablet (150 [...] deliveryIndicati ons:Respiratory failure with hypoxia, unspecified chronicity ([facility]) Home Oxygen Concentrator yes at [...] Encounters Date Type Department Care Team Description 07/17/2025 External Device Data ST[facility] ABSTRACTION Provider, Abstract 07/10/2025 External Device Data [facility] ABSTRACTION Provider, Abstract 06/23/2025 4:55 AM CDT - 06/23/2025 11:59 PM CDT Hospital Encounter [facility] [place] [address] [place] [address] Ambulance, Fln [facility] Discharge Disposition: [facility] 06/19/2025 External Device Data STL ABSTRACTION Provider, Abstract 06/19/2025 External Device Data [facility] ABSTRACTION Provider, Abstract 05/29/2025 External Device Data [facility] ABSTRACTION Provider, Abstract 05/29/2025 External Device Data [facility] ABSTRACTION Provider, Abstract 05/29/2025 External Device Data [facility] ABSTRACTION Provider, Abstract 05/22/2025 12:46 PM CDT - 05/22/2025 2:28 PM CDT Emergency [facility] Emergency Medicine [address] [facility] [address] [place] [address] Armando Santizo, Minor head injury without loss of consciousness, initial encounter (Primary Dx) Discharge Disposition: Home or Self Care 05/22/2025 Travel from Last 3 Months Immunizations Immunization Administration [...] Used Date Smoking Tobacco: Former Cigarettes 1 Q uit: 01/04/2021 Smokeless Tobacco: Never Alcohol [...] on file Legal Sex Female 1:48 PM PROSTHETIC ASSISTANT Gender Identity Not on file Sexual [...] 06/08/2023, 06/06/2023, Additional history exists COVID-19 Vaccine (2024-10 6 season) 2025 08/13/2022, 08/19/2021, 12/05/2020, Additional history exists COLORECTAL SCREENING 01/11/2029 01/11/2019, 01/12/20 19 Colorectal Cancer Screening 01/11/2029 DTAP/TDAP/TD VACCINES (3 - T d or Tdap) 05/08/2031 05/08/2021, 08/25/2012 ZOSTER VACCINE Completed 08/10/2022, 09/2019, 07/26/2018, Additional history exists PNEUMOCOCCAL VACCINE 50+ YEARS Completed 0 04/12/2023, 09/06/2019, 05/31/2018, Additional history exists Medical Devices Implanted Type Area Page Technician Device Identifier Shelf Expiration Date Model / Serial / Lot Stent Istent Trbclr Micro-Bypss Lt [id number] - [id number] Implanted:Qty: 1 on 09/20/2024 by Low Marx MD at [facility] Eye Left: Eye [employer] 03/05/2026 [id number] / [id number] / Stent Istent Trbclr Micro-Bypss Rt [id number] - [id number] Implanted:Qty: 1 on 12/20/2024 by Low Marx MD at [facility] Eye Right: Eye [employer] 04/05/2027 [id number] / [id number] / [id number] Lens Iol Tecnis Eyhance 19.5 [id number] - [id number] Implanted:Qty: 1 on 09/20/2024 by Low Marx MD at [facility] Lens Left: Eye [employer] 02/06/2027 [id number] / [id number] / Lens Iol Tecnis Eyhance 19.0 [id number] - [id number] Implanted:Qty: 1 on 12/20/2024 by Low Marx MD at [facility] Lens Right: Eye [employer] 04/25/2026 [id number] / [id number] / Procedures Procedure Name Priority Date/Time Associated [...] OR WO CAD Routine 10/30/2020 1:26 PM PROSTHETIC ASSISTANT Screening mammogram, encounter for MICROALBUMIN/CREATIN INE RATIO, [...] A1C 7.6(H) <5.7 % of total Hgb [facility] Comment: For someone without known diabetes, [...] of diabetes for children. Test Performed at: [employer] [address] [place] [address] Jean Carlos Yi D.O., MPH Blood 05/06/2021 9:36 AM CDT 05/07/2021 4:34 AM CDT Juancarlos DELGADO CHEMISTRY ORDERABLES Final Re sult [facility] [address] [place] [address] * (ABNORMAL) LIPID PANEL (05/06/2021 9:36 AM CDT) CHOLESTEROL 193 <200 mg/dL [facility] HDL 44(L) > OR = 50 mg/dL [facility] TRIGLYCERIDE 369(H) <150 mg/dL [facility] Comment: If a non-fasting specimen was collected, consider repeat triglyceride testing on a fasting specimen if clinically indicated. Radhika et al. J. of Clin. Lipidol. 2015;9:129-169. LDL CALCULATED 100(H) mg/dL (calc) [facility] Comment: Reference range: <100 Desirable range <100 mg/dL for primary prevention; <70 mg/dL for patients with CHD or diabetic patients with > or = 2 CHD risk factors. LDL-C is now calculated using the Miky-Gomez calculation, which is a validated novel method providing better accuracy than the Friedewald equation in the estimation of LDL-C. Miky SS et al. SABRINA. 2013;310(19): 7347-0806 (http://education.[employer].Applied StemCell/faq/QZR602) CHOL/HDL RATIO 4.4 <5.0 (calc) [facility] TOTAL NON-HDL CHOL(LDL+VLDL) 149(H) <130 mg/dL (calc) [facility] Comment: For patients with diabetes plus 1 major ASCVD risk factor, treating to a non-HDL-C goal of <100 mg/dL (LDL-C of <70 mg/dL) is considered a therapeutic option. Test Performed at: [email or web address] [address] [facility] [place] [address] Jean Carlos iY D.O., MPH Blood 05/06/2021 9:36 AM CDT 05/07/2021 4:34 AM CDT us Juancarlos DELGADO CHEMISTRY ORDERABLES Final Re sult [facility] [address] [place] [address] * MAMMO SCREEN BILAT W OR WO CAD (10/30/2020 1:26 PM PROSTHETIC ASSISTANT) Anatomical Region Laterality Modality Breast Bilateral Other Impressions 11/03/2020 11:28 AM PROSTHETIC ASSISTANT : Focal asymmetry in the upper outer quadrant of the left breast for which additional imaging evaluation is recommended. BI-RADS ASSESSMENT: 0 - Incomplete Recommendation: Additional Imaging [id number] Narrative 11/03/2020 11:28 AM PROSTHETIC ASSISTANT EXAM: MAMMO SCREEN BILAT W OR WO [...] ASSESSMENT: 0 - Incomplete Recommendation: Additional Imaging [id number] Juancarlos DELGADO MAMMO ORDERABLES Final Result * MICROALBUMIN/CREATININE RATIO, RANDOM UR (12/19/2019 9:05 AM CDT) MICROALBUMIN, URINE 1.2 No Reference Range mg/dL 12/19/2019 8:46 PM CDT [facility] CREATININE, URINE 66.3 29.0 - 226.0 mg/dL 12/19/2019 8:46 PM CDT [facility] Comment:Reference Range vari es with fluid intake and diet. MICROALBUMIN/C REAT RATIO, UR 18.1 <25.0 mg/g 12/19/2019 8:46 PM CDT [facility] Urine URINE SPECIMEN OBTAINED BY CLEAN CATCH PROCEDURE / Unknown Collection / Unknown 12/19/2019 9:05 AM CDT 12/19/2019 7:43 PM CDT Narrative [facility] - 12/19/2019 8:46 PM CDT Condition Microalbumin/Creat ratio Normal Males <17 Normal Females <25 Microalbuminuria Males 17-299 Microalbuminuria Females 25-299 Overt proteinuria >=300 [place] NP URINE ORDERABLES Final Result [facility] CLIA# [id number] [address] [place] [address] * (ABNORMAL) ENDOSCOPY, COLON, SCREENING (01/11/2019) Abstract Provider GI PROCEDURE ORDERABLES Final Result from Last 3 Months or Most Recently Relevant to Health Maintenance Insurance [place] Member Subscriber Plan / Payer (Ef fective 2021-Present) Name:Marli Eli Relation to Subscriber:Self Name:Marli Eli Payer ID:Not on file Group ID:Not on file Type:Medicaid Address: [address] [facility] Advance Directives For more information, please contact: [phone] * Full Code (Latest Code Status on File) Date Activated Date Inactivated Comments 12/20/2024 9:49 AM 12/20/2024 1:54 PM * Full Code Date Activated Date Inactivated Comments 09/20/2024 11:42 AM 09/20/2024 3:30 PM
--- OUTSIDE RECORDS SUMMARY | 2025-08-08 17:42 | XMS_ITS | Encounter Summary ---
Author Organization [facility] Address [address] [place] [address] Care Team Providers Care Receiver Dispatcher Name Role Phone Radha Cowan MD Primary Care Provider Encounter Details Date Type Department Care Team (Latest Contact Info) Description 11/28/1998 Outpatient Historical [facility] Augusto Nicole Jr., MD [address] [place] [phone] Unspecified essential hypertension (Primary Dx); Unspecified thrombosed hemorrhoids; Obesity, unspecified Social History Tobacco Use Types Packs/Day Years Used Date Smoking Tobacco: Never Assessed Comments Unknown Sex and Gender Information Value Date Recorded Sex Assigned at Not on file Legal Sex Female 3:33 AM OFFICE ASSISTANT Gender Identity Not on file [...] R/O COVID-19 07/25/2020 07/25/2020 07/27/2020 5:01 AM OFFICE ASSISTANT R/O COVID-19 09/30/2020 09/30/2020 09/30/2020 7:23 PM OFFICE ASSISTANT documented as of this encounter Care Teams Receiver Dispatcher Relationship Specialty Start Date End Date Radha Cowan MD [address] [phone] PCP - General Family Practice 10/24/20 documented as of this encounter
--- OUTSIDE RECORDS SUMMARY | 2025-08-08 17:43 | XMS_ITS | Encounter Summary ---
Author Organization [facility] Address [address] [place]: [place] [address] Care Team Providers Care Staple Cutter Name Role Phone Radha Cowan MD Primary Care Provider [phone] Encounter Details Date Type Department Care Team (Late st Contact Info) Description 05/10/2002 Outpatient Historical Augusto Nicole Jr., MD [address] [place] [phone] Social History Tobacco Use Types Packs/Day Years Used Date Smoking Tobacco: Never Assessed Comments Unknown Sex and Gender Information Value Date Recorded Sex Assigned at Not on file Legal Sex Female 3:33 AM RESPIRATORY CARE SPECIALIST Gender Identity Not on file Sexual Orientation Not on file documented as of this encounter Plan of Treatment Not on file documented as of this encounter Visit Diagnoses Not on filedocumented in this encounter Additional Health Concerns Infection Onset Date Last Indicated Resolved Time R/O COVID-19 05/16/2020 05/16/2020 05/18/2020 12:3 1 AM CDT R/O COVID-19 07/25/2020 07/25/2020 07/27/2020 5:01 AM RESPIRATORY CARE SPECIALIST R/O COVID-19 09/30/2020 09/30/2020 09/30/2020 7:23 PM RESPIRATORY CARE SPECIALIST documented as of this encounter Care Teams Staple Cutter Relationship Specialty Start Date End Date Radha Cowan MD [address] [place] [address] PCP - General Family Practice 10/24/20 documented as of this encounter
--- OUTSIDE RECORDS SUMMARY | 2025-08-08 17:43 | XMS_ITS ---
[facility] Care Plan Created on: August 02, 2025 Marli Eli : 1955 Sex: Female Author Organization [email or web address] Address [address] [place] [address] [address] [place] [address] Phone Health Concerns Health Status CKD 3 Health Concerns At risk for readmission, Hea lth condition management, Care and support services
--- OUTSIDE RECORDS SUMMARY | 2025-08-08 17:43 | XMS_ITS | Encounter Summary ---
Author Organization [facility] Address [address] [place] [address] Care Team Providers Care Social Media Marketing Manager Name Role Phone Radha Cowan MD Primary Care Provider Encounter Details Date Type Department Care Team (Latest Contact Info) Description 10/13/2001 Outpatient Historical [facility] Augusto Nicole Jr., MD [address] [place] [phone] HYPERLIPIDEMIA NEC/NOS (Primary Dx); OBESITY NOS; DEPRESSIVE DISORDER NEC Social History Tobacco Use Types Packs/Day Years Used Date Smoking Tobacco: Never Assessed Comments Unknown Sex and Gender Information Value Date Recorded Sex Assigned at Not on file Legal Sex Female 3:33 AM MANAGEMENT SCIENTIST Gender Identity Not on file Sexual Orientation [...] R/O COVID-19 07/25/2020 07/25/2020 07/27/2020 5:01 AM MANAGEMENT SCIENTIST R/O COVID-19 09/30/2020 09/30/2020 09/30/2020 7:23 PM MANAGEMENT SCIENTIST documented as of this encounter Care Teams Social Media Marketing Manager Relationship Specialty Start Date End Date Radha Cowan MD [address] [phone] PCP - General Family Practice 10/24/20 documented as of this encounter
--- OUTSIDE RECORDS SUMMARY | 2025-08-08 17:43 | XMS_ITS | Encounter Summary ---
Author Organization [facility] Address [address] Charlesn: [place] [address] Care Team Providers Care Urgent Care Physician Name Role Phone Radha Cowan MD Primary Care Provider +1- [phone] Encounter Details Date Type Department Care Team (Late st Contact Info) Description 12/05/2001 Outpatient Historical Augusto Nicole Jr., MD [address] [place] [phone] Social History Tobacco Use Types Packs/Day Years Used Date Smoking Tobacco: Never Assessed Comments Unknown Sex and Gender Information Value Date Recorded Sex Assigned at Not on file Legal Sex Female 3:33 AM UX DEVELOPER Gender Identity Not on file Sexual Orientation Not on file documented as of this encounter Plan of Treatment Not on file documented as of this encounter Visit Diagnoses Not on filedocumented in this encounter Additional Health Concerns Infection Onset Date Last Indicated Resolved Time R/O COVID-19 05/16/2020 05/16/2020 05/18/2020 12:3 1 AM CDT R/O COVID-19 07/25/2020 07/25/2020 07/27/2020 5:01 AM UX DEVELOPER R/O COVID-19 09/30/2020 09/30/2020 09/30/2020 7:23 PM UX DEVELOPER documented as of this encounter Care Teams Urgent Care Physician Relationship Specialty Start Date End Date Radha Cowan MD [address] [place] [phone] PCP - General Family Practice 10/24/20 documented as of this encounter
--- OUTSIDE RECORDS SUMMARY | 2025-08-08 17:43 | XMS_ITS | Encounter Summary ---
Author Organization [facility] Address [address] Charlesn: [place] [address] Care Team Providers Care Bulk Sealer Operator Name Role Phone Radha Cowan MD Primary Care Provider +1- [phone] Encounter Details Date Type Department Care Team (Late st Contact Info) Description 12/16/2000 Outpatient Historical Augusto Nicole Jr., MD [address] [place] [phone] Social History Tobacco Use Types Packs/Day Years Used Date Smoking Tobacco: Never Assessed Comments Unknown Sex and Gender Information Value Date Recorded Sex Assigned at Not on file Legal Sex Female 3:33 AM JOINT FILLER Gender Identity Not on file Sexual Orientation Not on file documented as of this encounter Plan of Treatment Not on file documented as of this encounter Visit Diagnoses Not on filedocumented in this encounter Additional Health Concerns Infection Onset Date Last Indicated Resolved Time R/O COVID-19 05/16/2020 05/16/2020 05/18/2020 12:3 1 AM CDT R/O COVID-19 07/25/2020 07/25/2020 07/27/2020 5:01 AM JOINT FILLER R/O COVID-19 09/30/2020 09/30/2020 09/30/2020 7:23 PM JOINT FILLER documented as of this encounter Care Teams Bulk Sealer Operator Relationship Specialty Start Date End Date Radha Cowan MD [address] [place] [phone] PCP - General Family Practice 10/24/20 documented as of this encounter
--- OUTSIDE RECORDS SUMMARY | 2025-08-08 17:43 | XMS_ITS | Encounter Summary ---
Author Organization [facility] Address [address] [place] [address] Care Team Providers Care Grinder Set Up Operator Internal Name Role Phone Radha Cowan MD Primary Care Provider Encounter Details Date Type Department Care Team (Latest Contact Info) Description 03/23/2002 Outpatient Historical [facility] Augusto Nicole Jr., MD [address] [place] [phone] ABDOMINAL PAIN UNSPEC SITE (Primary Dx); IRON DEFIC ANEMIA NOS; GENERALIZED ANXIETY DIS Social History Tobacco Use Types Packs/Day Years Used Date Smoking Tobacco: Never Assessed Comments Unknown Sex and Gender Information Value Date Recorded Sex Assigned at Not on file Legal Sex Female 3:33 AM AMPOULE SEALER Gender Identity Not on file Sexual Orientation [...] R/O COVID-19 07/25/2020 07/25/2020 07/27/2020 5:01 AM AMPOULE SEALER R/O COVID-19 09/30/2020 09/30/2020 09/30/2020 7:23 PM AMPOULE SEALER documented as of this encounter Care Teams Grinder Set Up Operator Internal Relationship Specialty Start Date End Date Radha Cowan MD [address] [phone] PCP - General Family Practice 10/24/20 documented as of this encounter
--- OUTSIDE RECORDS SUMMARY | 2025-08-08 17:43 | XMS_ITS | Encounter Summary ---
Author Organization [facility] Address [address] [place] [address] Care Team Providers Care Toxicologist Name Role Phone Radha Cowan MD Primary Care Provider Encounter Details Date Type Department Care Team (Latest Contact Info) Description 12/16/2000 Outpatient Historical [facility] Augusto Nicole Jr., MD [address] [place] [phone] Headache(784.0) (Primary Dx); Mitral valve disorder Social History Tobacco Use Types Packs/Day Years Used Date Smoking Tobacco: Never Assessed Comments Unknown Sex and Gender Information Value Date Recorded Sex Assigned at Not on file Legal Sex Female 3:33 AM SHIP KEEPER Gender Identity Not on file Sexual [...] R/O COVID-19 07/25/2020 07/25/2020 07/27/2020 5:01 AM SHIP KEEPER R/O COVID-19 09/30/2020 09/30/2020 09/30/2020 7:23 PM SHIP KEEPER documented as of this encounter Care Teams Toxicologist Relationship Specialty Start Date End Date Radha Cowan MD [address] [phone] PCP - General Family Practice 10/24/20 documented as of this encounter
--- OUTSIDE RECORDS SUMMARY | 2025-08-08 17:43 | XMS_ITS | Encounter Summary ---
Author Organization [facility] Address [address] [place] [address] Care Team Providers Care Film Librarian Name Role Phone Radha Cowan MD Primary Care Provider +1- [phone] Encounter Details Date Type Department Care Team (Latest Contact Info) Description 02/16/2002 Outpatient Historical [facility] Augusto Nicole Jr., MD [address] [place] [phone] ANEMIA NOS (Primary Dx) Social History Tobacco Use Types Packs/Day Years Used Date Smoking Tobacco: Never Assessed Comments Unknown Sex and Gender Information Value Date Recorded Sex Assigned at Not on file Legal Sex Female 3:33 AM MARKETING MANAGER Gender Identity Not on file Sexual [...] COVID-19 07/25/2020 07/25/2020 07/27/2020 5:01 AM MARKETING MANAGER R/O COVID-19 09/30/2020 09/30/2020 09/30/2020 7:23 PM MARKETING MANAGER documented as of this encounter Care Teams Film Librarian Relationship Specialty Start Date End Date Radha Cowan MD [address] [place] [phone] PCP - General Family Practice 10/24/20 documented as of this encounter
--- OUTSIDE RECORDS SUMMARY | 2025-08-08 17:43 | XMS_ITS | Encounter Summary ---
Author Organization [facility] Address [address] [place] [address] Care Team Providers Care Neurologist Name Role Phone Radha Cowan MD Primary Care Provider Encounter Details Date Type Department Care Team (Latest Contact Info) Description 09/01/2001 Outpatient Historical [facility] Augusto Nicole Jr., MD [address] [place] [phone] ABSENCE OF MENSTRUATION (Primary Dx); HYPERLIPIDEMIA NEC/NOS; ALLERGIC RHINITIS NOS Social History Tobacco Use Types Packs/Day Years Used Date Smoking Tobacco: Never Assessed Comments Unknown Sex and Gender Information Value Date Recorded Sex Assigned at Not on file Legal Sex Female 3:33 AM MATERIAL ANALYST Gender Identity Not on file Sexual [...] COVID-19 07/25/2020 07/25/2020 07/27/2020 5:01 AM MATERIAL ANALYST R/O COVID-19 09/30/2020 09/30/2020 09/30/2020 7:23 PM MATERIAL ANALYST documented as of this encounter Care Teams Neurologist Relationship Specialty Start Date End Date Radha Cowan MD [address] [phone] PCP - General Family Practice 10/24/20 documented as of this encounter
--- OUTSIDE RECORDS SUMMARY | 2025-08-08 17:43 | XMS_ITS | Encounter Summary ---
Author Organization [facility] Address [address] [place] [address] Care Team Providers Care Engineering Technologist Name Role Phone Radha Cowan MD Primary Care Provider Encounter Details Date Type Department Care Team (Latest Contact Info) Description 01/12/2001 Outpatient Historical [facility] Augusto Nicole Jr., MD [address] [place] [phone] Pure hypercholesterolem (Primary Dx); Chest pain, unspecified; Screening examination for pulmonary tuberculosis Social History Tobacco Use Types Packs/Day Years Used Date Smoking Tobacco: Never Assessed Comments Unknown Sex and Gender Information Value Date Recorded Sex Assigned at Not on file Legal Sex Female 3:33 AM DETAIL SUPERVISOR Gender Identity Not on file Sexual [...] R/O COVID-19 07/25/2020 07/25/2020 07/27/2020 5:01 AM DETAIL SUPERVISOR R/O COVID-19 09/30/2020 09/30/2020 09/30/2020 7:23 PM DETAIL SUPERVISOR documented as of this encounter Care Teams Engineering Technologist Relationship Specialty Start Date End Date Radha Cowan MD [address] [phone] PCP - General Family Practice 10/24/20 documented as of this encounter
--- OUTSIDE RECORDS SUMMARY | 2025-08-08 17:43 | XMS_ITS | Encounter Summary ---
Author Organization [facility] Address [address] Charlesn: [place] [address] Care Team Providers Care Cigar Bander Name Role Phone Radha Cowan MD Primary Care Provider +1- [phone] Encounter Details Date Type Department Care Team (Late st Contact Info) Description 02/18/2001 Outpatient Historical Augusto Nicole Jr., MD [address] [place] [phone] Social History Tobacco Use Types Packs/Day Years Used Date Smoking Tobacco: Never Assessed Comments Unknown Sex and Gender Information Value Date Recorded Sex Assigned at Not on file Legal Sex Female 3:33 AM BIOMETRIC TECHNICIAN Gender Identity Not on file Sexual Orientation Not on file documented as of this encounter Plan of Treatment Not on file documented as of this encounter Visit Diagnoses Not on filedocumented in this encounter Additional Health Concerns Infection Onset Date Last Indicated Resolved Time R/O COVID-19 05/16/2020 05/16/2020 05/18/2020 12:3 1 AM CDT R/O COVID-19 07/25/2020 07/25/2020 07/27/2020 5:01 AM BIOMETRIC TECHNICIAN R/O COVID-19 09/30/2020 09/30/2020 09/30/2020 7:23 PM BIOMETRIC TECHNICIAN documented as of this encounter Care Teams Cigar Bander Relationship Specialty Start Date End Date Radha Cowan MD [address] [place] [phone] PCP - General Family Practice 10/24/20 documented as of this encounter
--- OUTSIDE RECORDS SUMMARY | 2025-08-08 17:43 | XMS_ITS | Encounter Summary ---
Author Organization [facility] Address [address] [place] [address] Care Team Providers Care Cigarette Examiner Name Role Phone Radha Cowan MD Primary Care Provider +1- [phone] Encounter Details Date Type Department Care Team (Latest Contact Info) Description 12/05/2001 Outpatient Historical [facility] Augusto Nicole Jr., MD [address] [place] [phone] HYPERLIPIDEMIA NEC/NOS (Primary Dx) Social History Tobacco Use Types Packs/Day Years Used Date Smoking Tobacco: Never Assessed Comments Unknown Sex and Gender Information Value Date Recorded Sex Assigned at Not on file Legal Sex Female 3:33 AM DIVISION HEAD Gender Identity Not on file Sexual [...] R/O COVID-19 07/25/2020 07/25/2020 07/27/2020 5:01 AM DIVISION HEAD R/O COVID-19 09/30/2020 09/30/2020 09/30/2020 7:23 PM DIVISION HEAD documented as of this encounter Care Teams Cigarette Examiner Relationship Specialty Start Date End Date Radha Cowan MD [address] [place] [address] PCP - General Family Practice 10/24/20 documented as of this encounter
--- OUTSIDE RECORDS SUMMARY | 2025-08-08 17:43 | XMS_ITS | Encounter Summary ---
Author Organization [facility] Address [address] Charlesn: [place] [address] Care Team Providers Care Personal Vehicle Advisor Name Role Phone Radha Cowan MD Primary Care Provider +1- [phone] Encounter Details Date Type Department Care Team (Late st Contact Info) Description 01/12/2001 Outpatient Historical Augusto Nicole Jr., MD [address] [place] [phone] Social History Tobacco Use Types Packs/Day Years Used Date Smoking Tobacco: Never Assessed Comments Unknown Sex and Gender Information Value Date Recorded Sex Assigned at Not on file Legal Sex Female 3:33 AM AGRICULTURAL PRODUCE COMMISSION AGENT Gender Identity Not on file Sexual Orientation Not on file documented as of this encounter Plan of Treatment Not on file documented as of this encounter Visit Diagnoses Not on filedocumented in this encounter Additional Health Concerns Infection Onset Date Last Indicated Resolved Time R/O COVID-19 05/16/2020 05/16/2020 05/18/2020 12:3 1 AM CDT R/O COVID-19 07/25/2020 07/25/2020 07/27/2020 5:01 AM AGRICULTURAL PRODUCE COMMISSION AGENT R/O COVID-19 09/30/2020 09/30/2020 09/30/2020 7:23 PM AGRICULTURAL PRODUCE COMMISSION AGENT documented as of this encounter Care Teams Personal Vehicle Advisor Relationship Specialty Start Date End Date Radha Cowan MD [address] [facility] [address] [place] [phone] PCP - General Family Practice 10/24/20 documented as of this encounter
--- OUTSIDE RECORDS SUMMARY | 2025-08-08 17:43 | XMS_ITS | Encounter Summary ---
Author Organization [facility] Address [address] [place] [address] Care Team Providers Care Prior Authorization Nurse Name Role Phone Radha Cowan MD Primary Care Provider Encounter Details Date Type Department Care Team (Latest Contact Info) Description 03/15/2002 Outpatient Historical [facility] Corey Burkett, Augusto Tang MD [address] [place] [phone] DIABETES UNCOMPL ADULT-TYPE II (CMS/HCC) (Primary Dx); ABNORMAL URINE FINDINGS NEC; HEMATURIA; AFTERCARE SKILLED NURSING USE MEDICATN Social History Tobacco Use Types Packs/Day Years Used Date Smoking Tobacco: Never Assessed Comments Unknown Sex and Gender Information Value Date Recorded Sex Assigned at Not on file Legal Sex Female 3:33 AM MUTUEL CLERK Gender Identity Not on file Sexual [...] R/O COVID-19 07/25/2020 07/25/2020 07/27/2020 5:01 AM MUTUEL CLERK R/O COVID-19 09/30/2020 09/30/2020 09/30/2020 7:23 PM MUTUEL CLERK documented as of this encounter Care Teams Prior Authorization Nurse Relationship Specialty Start Date End Date Radha Cowan MD [address] [phone] PCP - General Family Practice 10/24/20 documented as of this encounter
--- OUTSIDE RECORDS SUMMARY | 2025-08-08 17:43 | XMS_ITS | Encounter Summary ---
Author Organization [facility] Address [address] Charlesn: [place] [address] Care Team Providers Care Marketing Rotation Associate Name Role Phone Radha Cowan MD Primary Care Provider +1- [phone] Encounter Details Date Type Department Care Team (Late st Contact Info) Description 12/28/2001 Outpatient Historical Augusto Nicole Jr., MD [address] [place] [phone] Social History Tobacco Use Types Packs/Day Years Used Date Smoking Tobacco: Never Assessed Comments Unknown Sex and Gender Information Value Date Recorded Sex Assigned at Not on file Legal Sex Female 3:33 AM SKILLED NURSING PROFESSIONAL Gender Identity Not on file Sexual Orientation Not on file documented as of this encounter Plan of Treatment Not on file documented as of this encounter Visit Diagnoses Not on filedocumented in this encounter Additional Health Concerns Infection Onset Date Last Indicated Resolved Time R/O COVID-19 05/16/2020 05/16/2020 05/18/2020 12:3 1 AM CDT R/O COVID-19 07/25/2020 07/25/2020 07/27/2020 5:01 AM SKILLED NURSING PROFESSIONAL R/O COVID-19 09/30/2020 09/30/2020 09/30/2020 7:23 PM SKILLED NURSING PROFESSIONAL documented as of this encounter Care Teams Marketing Rotation Associate Relationship Specialty Start Date End Date Radha Cowan MD [address] [place] [phone] PCP - General Family Practice 10/24/20 documented as of this encounter
--- OUTSIDE RECORDS SUMMARY | 2025-08-08 17:43 | XMS_ITS | Encounter Summary ---
Author Organization [facility] Address [address] [place] [address] Care Team Providers Care Bridge Club Manager Name Role Phone Radha Cowan MD Primary Care Provider +1- [phone] Encounter Details Date Type Department Care Team (Latest Contact Info) Description 03/24/2001 Outpatient Historical [facility] Corey Burkett, Augusto Tang MD [facility] [place] [address] Hip, thigh, leg, and ankle, [...] file Legal Sex Female 3:33 AM CONCRETE ROD BUSTER Gender Identity Not on file Sexual Orientation [...] COVID-19 07/25/2020 07/25/2020 07/27/2020 5:01 AM CONCRETE ROD BUSTER R/O COVID-19 09/30/2020 09/30/2020 09/30/2020 7:23 PM CONCRETE ROD BUSTER documented as of this encounter Care Teams Bridge Club Manager Relationship Specialty Start Date End Date Radha Cowan MD [address] [phone] PCP - General Family Practice 10/24/20 documented as of this encounter
--- OUTSIDE RECORDS SUMMARY | 2025-08-08 17:43 | XMS_ITS | Encounter Summary ---
Author Organization [facility] Address [address] Charlesn: [place] [address] Care Team Providers Care Clinic Physician Name Role Phone Radha Cowan MD Primary Care Provider +1- [phone] Encounter Details Date Type Department Care Team (Late st Contact Info) Description 03/15/2002 Outpatient Historical Augusto Nicole Jr., MD [address] [place] [phone] Social History Tobacco Use Types Packs/Day Years Used Date Smoking Tobacco: Never Assessed Comments Unknown Sex and Gender Information Value Date Recorded Sex Assigned at Not on file Legal Sex Female 3:33 AM WOOD HANDLER Gender Identity Not on file Sexual Orientation Not on file documented as of this encounter Plan of Treatment Not on file documented as of this encounter Visit Diagnoses Not on filedocumented in this encounter Additional Health Concerns Infection Onset Date Last Indicated Resolved Time R/O COVID-19 05/16/2020 05/16/2020 05/18/2020 12:3 1 AM CDT R/O COVID-19 07/25/2020 07/25/2020 07/27/2020 5:01 AM WOOD HANDLER R/O COVID-19 09/30/2020 09/30/2020 09/30/2020 7:23 PM WOOD HANDLER documented as of this encounter Care Teams Clinic Physician Relationship Specialty Start Date End Date Radha Cowan MD [address] [place] [phone] PCP - General Family Practice 10/24/20 documented as of this encounter
--- OUTSIDE RECORDS SUMMARY | 2025-08-08 17:43 | XMS_ITS | Encounter Summary ---
Author Organization [facility] Address [address] Charlesn: [place] [address] Care Team Providers Care Qa Tech Name Role Phone Radha Cowan MD Primary Care Provider +1- [phone] Encounter Details Date Type Department Care Team (Late st Contact Info) Description 12/20/2000 Outpatient Historical Augusto Nicole Jr., MD [address] [place] [phone] Social History Tobacco Use Types Packs/Day Years Used Date Smoking Tobacco: Never Assessed Comments Unknown Sex and Gender Information Value Date Recorded Sex Assigned at Not on file Legal Sex Female 3:33 AM ELEMENTARY ASSISTANT TEACHER Gender Identity Not on file Sexual Orientation Not on file documented as of this encounter Plan of Treatment Not on file documented as of this encounter Visit Diagnoses Not on filedocumented in this encounter Additional Health Concerns Infection Onset Date Last Indicated Resolved Time R/O COVID-19 05/16/2020 05/16/2020 05/18/2020 12:3 1 AM CDT R/O COVID-19 07/25/2020 07/25/2020 07/27/2020 5:01 AM ELEMENTARY ASSISTANT TEACHER R/O COVID-19 09/30/2020 09/30/2020 09/30/2020 7:23 PM ELEMENTARY ASSISTANT TEACHER documented as of this encounter Care Teams Qa Tech Relationship Specialty Start Date End Date Radha Cowan MD [address] [place] [phone] PCP - General Family Practice 10/24/20 documented as of this encounter
--- OUTSIDE RECORDS SUMMARY | 2025-08-08 17:43 | XMS_ITS | Encounter Summary ---
Author Organization [facility] Address [address] [place] [address] Care Team Providers Care Underwriter Name Role Phone Radha Cowan MD Primary Care Provider Encounter Details Date Type Department Care Team (Latest Contact Info) Description 01/19/2001 Outpatient Historical [facility] Augusto Nicole Jr., MD [address] [place] [phone] Chest pain, unspecified (Primary Dx); Generalized anxiety disorder Social History Tobacco Use Types Packs/Day Years Used Date Smoking Tobacco: Never Assessed Comments Unknown Sex and Gender Information Value Date Recorded Sex Assigned at Not on file Legal Sex Female 3:33 AM PIERCING MACHINE OPERATOR Gender Identity Not on file [...] R/O COVID-19 07/25/2020 07/25/2020 07/27/2020 5:01 AM PIERCING MACHINE OPERATOR R/O COVID-19 09/30/2020 09/30/2020 09/30/2020 7:23 PM PIERCING MACHINE OPERATOR documented as of this encounter Care Teams Underwriter Relationship Specialty Start Date End Date Radha Cowan MD [address] [facility] [address] [place] [address] PCP - General Family Practice 10/24/20 documented as of this encounter
--- OUTSIDE RECORDS SUMMARY | 2025-08-08 17:43 | XMS_ITS | Encounter Summary ---
Author Organization [facility] Address [address] [place] [address] Care Team Providers Care Secretary Book Keeper Name Role Phone Radha Cowan MD Primary Care Provider Encounter Details Date Type Department Care Team (Latest Contact Info) Description 07/10/1998 Outpatient Historical [facility] Augusto Nicole Jr., MD [facility] [place] [address] Headache(784.0) (Primary Dx); Depressive disorder, not elsewhere classified Social History Tobacco Use Types Packs/Day Years Used Date Smoking Tobacco: Never Assessed Comments Unknown Sex and Gender Information Value Date Recorded Sex Assigned at Not on file Legal Sex Female 3:33 AM MOLDING ASSOCIATE Gender Identity Not on file Sexual [...] R/O COVID-19 07/25/2020 07/25/2020 07/27/2020 5:01 AM MOLDING ASSOCIATE R/O COVID-19 09/30/2020 09/30/2020 09/30/2020 7:23 PM MOLDING ASSOCIATE documented as of this encounter Care Teams Secretary Book Keeper Relationship Specialty Start Date End Date Radha Cowan MD [address] [phone] PCP - General Family Practice 10/24/20 documented as of this encounter
--- OUTSIDE RECORDS SUMMARY | 2025-08-08 17:43 | XMS_ITS | Clinical Summary ---
Author Organization [facility] Address [address] [place] [address] Care Team Providers Care Betting Agency Manager Name Role Phone Radha Xiong MD Primary Care Provider +1 -[phone] Allergies Active Allergy Reactions Criticality Noted Date [...] 1 tablet (25 mcg total) by mouth director of spa and guest experience before breakfast 01/05/20 24 Active losartan (COZAAR) [...] disord er), recurrent severe, without psychosis 03/22/2024 Encounters Date Type Department Care Team Description 08/06/2025 Orders Only [facility] Medicine Pulmonary [facility] Advanced Medicine 8th [place] [address] [place] [address] Sabas Curry Chi, MD Airway obstruction (Primary Dx) 07/30/[address] [address] Kylie Sheffield RN 07/20/[address] [address] Kylie Sheffield RN from Last 3 Months Social History Tobacco Use Types Packs/Day Years [...] vaccine 65+ Completed 023, 05/31/2018, 09/05/2012 Insurance [place] [facility] ANTHEM MEDICARE HMO PPO ANTHEM MEDICARE HMO PPO Member Subscriber Plan / Payer (Ef fective 2023-Present) Name:Marli Eli Relation to Subscriber:Self Name:Marli Eli Payer ID:[id number] (NAIC) Group ID:[id number] Type:MEDICARE RISK OTHER Address: [address] [facility] [address] [address] Advance Directives For more information, please contact: [phone] * Full Code (Latest Code Status on File) Date Activated Date Inactivated Comments 03/22/2024 10:33 PM 03/29/2024 5:09 PM Care Teams Betting Agency Manager Relationship Specialty Start Date End Date Radha Xiong MD [address] [place] [address] PCP - General Family Medicine 03/22/24
--- OUTSIDE RECORDS SUMMARY | 2025-08-08 17:43 | XMS_ITS | Encounter Summary ---
Author Organization [facility] Address [address] [place] [address] Care Team Providers Care Tester Food Products Name Role Phone Radha Cowan MD Primary Care Provider +1- [phone] Encounter Details Date Type Department Care Team (Latest Contact Info) Description 05/10/2002 Outpatient Historical [facility] Corey Burkett, Augusto Tang MD [address] [place] [phone] ANEMIA NOS (Primary Dx); EDEMA; DIABETES UNCOMPL ADULT-TYPE II (CMS/HCC); CHRONIC AIRWAY OBSTRUCTION NEC ([facility]) Social History Tobacco Use Types Packs/Day Years Used Date Smoking Tobacco: Never Assessed Comments Unknown Sex and Gender Information Value Date Recorded Sex Assigned at Not on file Legal Sex Female 3:33 AM ETIOLOGIST Gender Identity Not on file Sexual Orientation [...] R/O COVID-19 07/25/2020 07/25/2020 07/27/2020 5:01 AM ETIOLOGIST R/O COVID-19 09/30/2020 09/30/2020 09/30/2020 7:23 PM ETIOLOGIST documented as of this encounter Care Teams Tester Food Products Relationship Specialty Start Date End Date Radha Cowan MD [address] [address] PCP - General Family Practice 10/24/20 documented as of this encounter
--- OUTSIDE RECORDS SUMMARY | 2025-08-08 17:43 | XMS_ITS | Encounter Summary ---
Author Organization [facility] Address [address] Charlesn: [place] [address] Care Team Providers Care Customer Account Manager Name Role Phone Radha Cowan MD Primary Care Provider +1- [phone] Encounter Details Date Type Department Care Team (Late st Contact Info) Description 05/19/2002 Outpatient Historical Augusto Nicole Jr., MD [address] [place] [phone] Social History Tobacco Use Types Packs/Day Years Used Date Smoking Tobacco: Never Assessed Comments Unknown Sex and Gender Information Value Date Recorded Sex Assigned at Not on file Legal Sex Female 3:33 AM KISS MIXER Gender Identity Not on file Sexual Orientation Not on file documented as of this encounter Plan of Treatment Not on file documented as of this encounter Visit Diagnoses Not on filedocumented in this encounter Additional Health Concerns Infection Onset Date Last Indicated Resolved Time R/O COVID-19 05/16/2020 05/16/2020 05/18/2020 12:3 1 AM CDT R/O COVID-19 07/25/2020 07/25/2020 07/27/2020 5:01 AM KISS MIXER R/O COVID-19 09/30/2020 09/30/2020 09/30/2020 7:23 PM KISS MIXER documented as of this encounter Care Teams Customer Account Manager Relationship Specialty Start Date End Date Radha Cowan MD [address] [place] [address] PCP - General Family Practice 10/24/20 documented as of this encounter
--- OUTSIDE RECORDS SUMMARY | 2025-08-08 17:43 | XMS_ITS | Encounter Summary ---
Author Organization [facility] Address [address] [place] [address] Care Team Providers Care Seismograph Helper Name Role Phone Radha Cowan MD Primary Care Provider Encounter Details Date Type Department Care Team (Latest Contact Info) Description 04/10/2002 Outpatient Historical [facility] ToroHema MD [address] [address] ESOPHAGEAL REFLUX (Primary Dx); ABDOMINAL PAIN EPIGASTRIC Social History Tobacco Use Types Packs/Day Years Used Date Smoking Tobacco: Never Assessed Comments Unknown Sex and Gender Information Value Date Recorded Sex Assigned at Not on file Legal Sex Female 3:33 AM SKIN DIVING TEACHER Gender Identity Not on file Sexual [...] R/O COVID-19 07/25/2020 07/25/2020 07/27/2020 5:01 AM SKIN DIVING TEACHER R/O COVID-19 09/30/2020 09/30/2020 09/30/2020 7:23 PM SKIN DIVING TEACHER documented as of this encounter Care Teams Seismograph Helper Relationship Specialty Start Date End Date Radha Cowan MD [address] [address] PCP - General Family Practice 10/24/20 documented as of this encounter
--- OUTSIDE RECORDS SUMMARY | 2025-08-08 17:43 | XMS_ITS | Encounter Summary ---
Author Organization [facility] Address [address] [place] [address] Care Team Providers Care Hotbed Operator Name Role Phone Radha Cowan MD Primary Care Provider Encounter Details Date Type Department Care Team (Latest Contact Info) Description 12/30/2000 Outpatient Historical [facility] Augusto Nicole Jr., MD [address] [place] [phone] Elevated sediment rate (Primary Dx); Osteoarthrosis, unspecified whether generalized or localized, unspecified site Social History Tobacco Use Types Packs/Day Years Used Date Smoking Tobacco: Never Assessed Comments Unknown Sex and Gender Information Value Date Recorded Sex Assigned at Not on file Legal Sex Female 3:33 AM COACH Gender Identity Not on file Sexual [...] R/O COVID-19 07/25/2020 07/25/2020 07/27/2020 5:01 AM COACH R/O COVID-19 09/30/2020 09/30/2020 09/30/2020 7:23 PM COACH documented as of this encounter Care Teams Hotbed Operator Relationship Specialty Start Date End Date Radha Cowan MD [address] [phone] PCP - General Family Practice 10/24/20 documented as of this encounter
--- OUTSIDE RECORDS SUMMARY | 2025-08-08 17:43 | XMS_ITS | Encounter Summary ---
Author Organization [facility] Address [address] [place] [address] Care Team Providers Care Shipfitters Supervisor Name Role Phone Radha Cowan MD Primary Care Provider [phone]- [phone] Encounter Details Date Type Department Care Team (Latest Contact Info) Description 12/28/2001 Outpatient Historical [facility] Augusto Nicole Jr., MD [address] [place] [phone] ABN BLOOD CHEMISTRY NEC (Primary Dx) Social History Tobacco Use Types Packs/Day Years Used Date Smoking Tobacco: Never Assessed Comments Unknown Sex and Gender Information Value Date Recorded Sex Assigned at Not on file Legal Sex Female 3:33 AM ROADS SUPERINTENDENT Gender Identity Not on file Sexual Orientation [...] R/O COVID-19 07/25/2020 07/25/2020 07/27/2020 5:01 AM ROADS SUPERINTENDENT R/O COVID-19 09/30/2020 09/30/2020 09/30/2020 7:23 PM ROADS SUPERINTENDENT documented as of this encounter Care Teams Shipfitters Supervisor Relationship Specialty Start Date End Date Radha Cowan MD [address] [place] [address] PCP - General Family Practice 10/24/20 documented as of this encounter
--- OUTSIDE RECORDS SUMMARY | 2025-08-08 17:43 | XMS_ITS | Encounter Summary ---
Author Organization [facility] Address [address] [place] [address] Care Team Providers Care Spinner Tender Name Role Phone Radha Cowan MD Primary Care Provider Encounter Details Date Type Department Care Team (Latest Contact Info) Description 04/27/2001 Outpatient Historical [facility] Augusto Nicole Jr., MD [address] [place] [phone] Chest pain, unspecified (Primary Dx); Generalized anxiety disorder Social History Tobacco Use Types Packs/Day Years Used Date Smoking Tobacco: Never Assessed Comments Unknown Sex and Gender Information Value Date Recorded Sex Assigned at Not on file Legal Sex Female 3:33 AM HUMAN RESOURCES VICE PRESIDENT Gender Identity Not on file Sexual Orientation [...] 07/25/2020 07/25/2020 07/27/2020 5:01 AM HUMAN RESOURCES VICE PRESIDENT R/O COVID-19 09/30/2020 09/30/2020 09/30/2020 7:23 PM HUMAN RESOURCES VICE PRESIDENT documented as of this encounter Care Teams Spinner Tender Relationship Specialty Start Date End Date Radha Cowan MD [address] [facility] [address] [place] [address] PCP - General Family Practice 10/24/20 documented as of this encounter
--- OUTSIDE RECORDS SUMMARY | 2025-08-08 17:43 | XMS_ITS | Encounter Summary ---
Author Organization [facility] Address [address] [place] [address] Care Team Providers Care Gas Appliance Servicer Helper Name Role Phone Radha Cowan MD Primary Care Provider Encounter Details Date Type Department Care Team (Latest Contact Info) Description 03/22/[address] [facility] Augusto Nicole Jr., MD [address] [place] [phone] Other follow-up examination(V67.59) (Primary Dx); Unspecified hemorrhoids without mention of complication Social History Tobacco Use Types Packs/Day Years Used Date Smoking Tobacco: Never Assessed Comments Unknown Sex and Gender Information Value Date Recorded Sex Assigned at Not on file Legal Sex Female 3:33 AM TETRYL BLENDER OPERATOR Gender Identity Not on file Sexual [...] R/O COVID-19 07/25/2020 07/25/2020 07/27/2020 5:01 AM TETRYL BLENDER OPERATOR R/O COVID-19 09/30/2020 09/30/2020 09/30/2020 7:23 PM TETRYL BLENDER OPERATOR documented as of this encounter Care Teams Gas Appliance Servicer Helper Relationship Specialty Start Date End Date Radha Cowan MD [address] [address] PCP - General Family Practice 10/24/20 documented as of this encounter
--- OUTSIDE RECORDS SUMMARY | 2025-08-08 17:43 | XMS_ITS | Encounter Summary ---
Author Organization [facility] Address [address] [place] [address] Care Team Providers Care Plate Stacker Name Role Phone Radha Cowan MD Primary Care Provider +1- [phone] Encounter Details Date Type Department Care Team (Latest Contact Info) Description 01/16/2002 Outpatient Historical [facility] Augusto Nicole Jr., MD [address] [place] [phone] CHRONIC AIRWAY OBSTRUCTION NEC (CMS/[facility]) (Primary Dx); ANEMIA NOS; DEPRESSIVE DISORDER NEC Social History Tobacco Use Types Packs/Day Years Used Date Smoking Tobacco: Never Assessed Comments Unknown Sex and Gender Information Value Date Recorded Sex Assigned at Not on file Legal Sex Female 3:33 AM MOLDING MACHINE OPERATOR HELPER Gender Identity Not on file Sexual [...] COVID-19 07/25/2020 07/25/2020 07/27/2020 5:01 AM MOLDING MACHINE OPERATOR HELPER R/O COVID-19 09/30/2020 09/30/2020 09/30/2020 7:23 PM MOLDING MACHINE OPERATOR HELPER documented as of this encounter Care Teams Plate Stacker Relationship Specialty Start Date End Date Radha Cowan MD [address] [address] PCP - General Family Practice 10/24/20 documented as of this encounter
--- OUTSIDE RECORDS SUMMARY | 2025-08-08 17:43 | XMS_ITS | Encounter Summary ---
Author Organization [facility] Address [address] Charlesn: [place] [address] Care Team Providers Care Gold Miner Blasting Name Role Phone Radha Cowan MD Primary Care Provider +1- [phone] Encounter Details Date Type Department Care Team (Late st Contact Info) Description 03/17/2000 Outpatient Historical Augusto Nicole Jr., MD [address] [place] [phone] Social History Tobacco Use Types Packs/Day Years Used Date Smoking Tobacco: Never Assessed Comments Unknown Sex and Gender Information Value Date Recorded Sex Assigned at Not on file Legal Sex Female 3:33 AM MANAGER FLEET Gender Identity Not on file Sexual Orientation Not on file documented as of this encounter Plan of Treatment Not on file documented as of this encounter Visit Diagnoses Not on filedocumented in this encounter Additional Health Concerns Infection Onset Date Last Indicated Resolved Time R/O COVID-19 05/16/2020 05/16/2020 05/18/2020 12:3 1 AM CDT R/O COVID-19 07/25/2020 07/25/2020 07/27/2020 5:01 AM MANAGER FLEET R/O COVID-19 09/30/2020 09/30/2020 09/30/2020 7:23 PM MANAGER FLEET documented as of this encounter Care Teams Gold Miner Blasting Relationship Specialty Start Date End Date Radha Cowan MD [address] [facility] [address] [place] [phone] PCP - General Family Practice 10/24/20 documented as of this encounter
--- OUTSIDE RECORDS SUMMARY | 2025-08-08 17:43 | XMS_ITS | Encounter Summary ---
Author Organization [facility] Address [address] [place] [address] Care Team Providers Care Ticket Collector Name Role Phone Radha Cowan MD Primary Care Provider +1- [phone] Encounter Details Date Type Department Care Team (Latest Contact Info) Description 12/20/2000 Outpatient Historical [facility] Augusto Nicole Jr., MD [address] [place] [phone] Pure hypercholesterolem (Primary Dx) Social History Tobacco Use Types Packs/Day Years Used Date Smoking Tobacco: Never Assessed Comments Unknown Sex and Gender Information Value Date Recorded Sex Assigned at Not on file Legal Sex Female 3:33 AM PHYSICAL FITNESS TRAINER Gender Identity Not on file Sexual Orientation [...] COVID-19 07/25/2020 07/25/2020 07/27/2020 5:01 AM PHYSICAL FITNESS TRAINER R/O COVID-19 09/30/2020 09/30/2020 09/30/2020 7:23 PM PHYSICAL FITNESS TRAINER documented as of this encounter Care Teams Ticket Collector Relationship Specialty Start Date End Date Radha Cowan MD [address] [place] [address] PCP - General Family Practice 10/24/20 documented as of this encounter
--- OUTSIDE RECORDS SUMMARY | 2025-08-08 17:43 | XMS_ITS | Encounter Summary ---
Author Organization [facility] Address [address] Charlesn: [place] [address] Care Team Providers Care Transit Bus Driver Name Role Phone Radha Cowan MD Primary Care Provider +1- [phone] Encounter Details Date Type Department Care Team (Late st Contact Info) Description 12/19/2001 Outpatient Historical Augusto Nicole Jr., MD [address] [place] [phone] Social History Tobacco Use Types Packs/Day Years Used Date Smoking Tobacco: Never Assessed Comments Unknown Sex and Gender Information Value Date Recorded Sex Assigned at Not on file Legal Sex Female 3:33 AM BOILER TUBE BLOWER Gender Identity Not on file Sexual Orientation Not on file documented as of this encounter Plan of Treatment Not on file documented as of this encounter Visit Diagnoses Not on filedocumented in this encounter Additional Health Concerns Infection Onset Date Last Indicated Resolved Time R/O COVID-19 05/16/2020 05/16/2020 05/18/2020 12:3 1 AM CDT R/O COVID-19 07/25/2020 07/25/2020 07/27/2020 5:01 AM BOILER TUBE BLOWER R/O COVID-19 09/30/2020 09/30/2020 09/30/2020 7:23 PM BOILER TUBE BLOWER documented as of this encounter Care Teams Transit Bus Driver Relationship Specialty Start Date End Date Radha Cowan MD [address] [place] [address] PCP - General Family Practice 10/24/20 documented as of this encounter
--- OUTSIDE RECORDS SUMMARY | 2025-08-08 17:43 | XMS_ITS | Encounter Summary ---
Author Organization [facility] Address [address] [place] [address] Care Team Providers Care Pan Greaser Name Role Phone Radha Cowan MD Primary Care Provider Encounter Details Date Type Department Care Team (Latest Contact Info) Description 08/28/1998 Outpatient Historical [facility] Augusto Nicole Jr., MD [address] [place] [phone] Attention to dressings and sutures (Primary Dx); Dermatophytosis of foot Social History Tobacco Use Types Packs/Day Years Used Date Smoking Tobacco: Never Assessed Comments Unknown Sex and Gender Information Value Date Recorded Sex Assigned at Not on file Legal Sex Female 3:33 AM MANAGER FUNCTIONAL Gender Identity Not on file Sexual Orientation [...] COVID-19 07/25/2020 07/25/2020 07/27/2020 5:01 AM MANAGER FUNCTIONAL R/O COVID-19 09/30/2020 09/30/2020 09/30/2020 7:23 PM MANAGER FUNCTIONAL documented as of this encounter Care Teams Pan Greaser Relationship Specialty Start Date End Date Radha Cowan MD [address] [phone] PCP - General Family Practice 10/24/20 documented as of this encounter
--- OUTSIDE RECORDS SUMMARY | 2025-08-08 17:43 | XMS_ITS | Encounter Summary ---
Author Organization [facility] Address [address] [place] [address] Care Team Providers Care Monument Mason Name Role Phone Radha Cowan MD Primary Care Provider Encounter Details Date Type Department Care Team (Latest Contact Info) Description 02/18/2001 Outpatient Historical [facility] Augusto Nicole Jr., MD [address] [place] [phone] Myalgia and myositis, unspecified (Primary Dx); Depressive disorder, not elsewhere classified Social History Tobacco Use Types Packs/Day Years Used Date Smoking Tobacco: Never Assessed Comments Unknown Sex and Gender Information Value Date Recorded Sex Assigned at Not on file Legal Sex Female 3:33 AM GUN FERTILIZER Gender Identity Not on file Sexual Orientation [...] R/O COVID-19 07/25/2020 07/25/2020 07/27/2020 5:01 AM GUN FERTILIZER R/O COVID-19 09/30/2020 09/30/2020 09/30/2020 7:23 PM GUN FERTILIZER documented as of this encounter Care Teams Monument Mason Relationship Specialty Start Date End Date Radha Cowan MD [address] [address] PCP - General Family Practice 10/24/20 documented as of this encounter
--- OUTSIDE RECORDS SUMMARY | 2025-08-08 17:43 | XMS_ITS | Encounter Summary ---
Author Organization [facility] Address [address] [place] [address] Care Team Providers Care Gold Blower Name Role Phone Radha Cowan MD Primary Care Provider Encounter Details Date Type Department Care Team (Latest Contact Info) Description 12/19/2001 Outpatient Historical [facility] Augusto Nicole Jr., MD [address] [place] [phone] ENDOCARDITIS NOS (Primary Dx); EDEMA Social History Tobacco Use Types Packs/Day Years Used Date Smoking Tobacco: Never Assessed Comments Unknown Sex and Gender Information Value Date Recorded Sex Assigned at Not on file Legal Sex Female 3:33 AM HOBBING PRESS OPERATOR Gender Identity Not on file [...] R/O COVID-19 07/25/2020 07/25/2020 07/27/2020 5:01 AM HOBBING PRESS OPERATOR R/O COVID-19 09/30/2020 09/30/2020 09/30/2020 7:23 PM HOBBING PRESS OPERATOR documented as of this encounter Care Teams Gold Blower Relationship Specialty Start Date End Date Radha Cowan MD [address] [facility] [address] [place] [address] PCP - General Family Practice 10/24/20 documented as of this encounter
--- OUTSIDE RECORDS SUMMARY | 2025-08-08 17:43 | XMS_ITS | Encounter Summary ---
Author Organization [facility] Address [address] Charlesn: [place] [address] Care Team Providers Care Global Product Manager Name Role Phone Radha Cowan MD Primary Care Provider +1- [phone] Encounter Details Date Type Department Care Team (Late st Contact Info) Description 06/10/2001 Outpatient Historical Augusto Nicole Jr., MD [address] [place] [phone] Social History Tobacco Use Types Packs/Day Years Used Date Smoking Tobacco: Never Assessed Comments Unknown Sex and Gender Information Value Date Recorded Sex Assigned at Not on file Legal Sex Female 3:33 AM HAND BINDERY ASSEMBLY WORKER Gender Identity Not on file Sexual Orientation Not on file documented as of this encounter Plan of Treatment Not on file documented as of this encounter Visit Diagnoses Not on filedocumented in this encounter Additional Health Concerns Infection Onset Date Last Indicated Resolved Time R/O COVID-19 05/16/2020 05/16/2020 05/18/2020 12:3 1 AM CDT R/O COVID-19 07/25/2020 07/25/2020 07/27/2020 5:01 AM HAND BINDERY ASSEMBLY WORKER R/O COVID-19 09/30/2020 09/30/2020 09/30/2020 7:23 PM HAND BINDERY ASSEMBLY WORKER documented as of this encounter Care Teams Global Product Manager Relationship Specialty Start Date End Date Radha Cowan MD [address] [place] [phone] PCP - General Family Practice 10/24/20 documented as of this encounter
--- OUTSIDE RECORDS SUMMARY | 2025-08-08 17:43 | XMS_ITS | Encounter Summary ---
Author Organization [facility] Address [address] [place] [address] Care Team Providers Care Manager Winter Name Role Phone Radha Cowan MD Primary Care Provider Encounter Details Date Type Department Care Team (Latest Contact Info) Description 06/10/2001 Outpatient Historical [facility] Augusto Nicole Jr., MD [address] [place] [phone] Chronic airway obstruction, not elsewhere classified (CMS/HCC) (Primary Dx); Pure hypercholesterolem Social History Tobacco Use Types Packs/Day Years Used Date Smoking Tobacco: Never Assessed Comments Unknown Sex and Gender Information Value Date Recorded Sex Assigned at Not on file Legal Sex Female 3:33 AM MANUAL WRITER Gender Identity Not on file Sexual Orientation [...] R/O COVID-19 07/25/2020 07/25/2020 07/27/2020 5:01 AM MANUAL WRITER R/O COVID-19 09/30/2020 09/30/2020 09/30/2020 7:23 PM MANUAL WRITER documented as of this encounter Care Teams Manager Winter Relationship Specialty Start Date End Date Radha Cowan MD [address] [address] PCP - General Family Practice 10/24/20 documented as of this encounter
--- OUTSIDE RECORDS SUMMARY | 2025-08-08 17:43 | XMS_ITS | Encounter Summary ---
Author Organization [facility] Address [address] [place] [address] Care Team Providers Care Public Health Engineer Name Role Phone Radha Cowan MD Primary Care Provider Encounter Details Date Type Department Care Team (Latest Contact Info) Description 04/24/2002 Outpatient Historical [facility] ToroHema MD [address] [address] SURGERY FOLLOWUP, UNSPEC (Primary Dx) Social History Tobacco Use Types Packs/Day Years Used Date Smoking Tobacco: Never Assessed Comments Unknown Sex and Gender Information Value Date Recorded Sex Assigned at Not on file Legal Sex Female 3:33 AM WOOL SACKER Gender Identity Not on file Sexual Orientation [...] R/O COVID-19 07/25/2020 07/25/2020 07/27/2020 5:01 AM WOOL SACKER R/O COVID-19 09/30/2020 09/30/2020 09/30/2020 7:23 PM WOOL SACKER documented as of this encounter Care Teams Public Health Engineer Relationship Specialty Start Date End Date Radha Cowan MD [address] [address] PCP - General Family Practice 10/24/20 documented as of this encounter
--- OUTSIDE RECORDS SUMMARY | 2025-08-08 17:43 | XMS_ITS | Encounter Summary ---
Author Organization [facility] Address [address] [place]: [place] [address] Care Team Providers Care Bristle Machine Operator Name Role Phone Radha Cowan MD Primary Care Provider [phone]- [phone] Encounter Details Date Type Department Care Team (Late st Contact Info) Description 10/13/2001 Outpatient Historical Augusto Nicole Jr., MD [address] [place] [phone] Social History Tobacco Use Types Packs/Day Years Used Date Smoking Tobacco: Never Assessed Comments Unknown Sex and Gender Information Value Date Recorded Sex Assigned at Not on file Legal Sex Female 3:33 AM RESEARCH LEADER Gender Identity Not on file Sexual Orientation Not on file documented as of this encounter Plan of Treatment Not on file documented as of this encounter Visit Diagnoses Not on filedocumented in this encounter Additional Health Concerns Infection Onset Date Last Indicated Resolved Time R/O COVID-19 05/16/2020 05/16/2020 05/18/2020 12:3 1 AM CDT R/O COVID-19 07/25/2020 07/25/2020 07/27/2020 5:01 AM RESEARCH LEADER R/O COVID-19 09/30/2020 09/30/2020 09/30/2020 7:23 PM RESEARCH LEADER documented as of this encounter Care Teams Bristle Machine Operator Relationship Specialty Start Date End Date Radha Cowan MD [address] [place] [phone] PCP - General Family Practice 10/24/20 documented as of this encounter
--- OUTSIDE RECORDS SUMMARY | 2025-08-08 17:44 | XMS_ITS | Encounter Summary ---
Author Organization [facility] Address [address] [place] [address] Care Team Providers Care Product Support Representative Name Role Phone Radha Cowan MD Primary Care Provider Encounter Details Date Type Department Care Team (Latest Contact Info) Description 04/19/2003 Outpatient Historical [facility] Augusto Nicole Jr., MD [address] [place] [phone] HYPERTENSION NOS (Primary Dx) Social History Tobacco Use Types Packs/Day Years Used Date Smoking Tobacco: Never Assessed Comments Unknown Sex and Gender Information Value Date Recorded Sex Assigned at Not on file Legal Sex Female 3:33 AM PRODUCT DESIGN MANAGER Gender Identity Not on file Sexual [...] COVID-19 07/25/2020 07/25/2020 07/27/2020 5:01 AM PRODUCT DESIGN MANAGER R/O COVID-19 09/30/2020 09/30/2020 09/30/2020 7:23 PM PRODUCT DESIGN MANAGER documented as of this encounter Care Teams Product Support Representative Relationship Specialty Start Date End Date Radha Cowan MD [address] [facility] [address] [place] [phone] PCP - General Family Practice 10/24/20 documented as of this encounter
--- OUTSIDE RECORDS SUMMARY | 2025-08-08 17:44 | XMS_ITS | Encounter Summary ---
Author Organization [facility] Address [address] [facility] [address] Care Team Providers Care Stereo Operator Name Role Phone Radha Cowan MD Primary Care Provider Encounter Details Date Type Department Care Team (Late st Contact Info) Description 01/24/2004 Inpatient Historical [facility] [address] [place] [address] [place] MD [facility] [address] [place] [phone] Augusto Wright III, MD NO ADDRESS ON FILE RECURR DEPR PSYCHOS-MOD (CMS/HCC) (Primary Dx) Social History Tobacco Use Types Packs/Day Years Used Date Smoking Tobacco: Never Assessed Comments Unknown Sex and Gender Information Value Date Recorded Sex Assigned at Not on file Legal Sex Female 3:33 AM BAIL BONDING AGENT Gender Identity Not on file Sexual [...] R/O COVID-19 07/25/2020 07/25/2020 07/27/2020 5:01 AM BAIL BONDING AGENT R/O COVID-19 09/30/2020 09/30/202009/3009/30/2020 7:23 PM BAIL BONDING AGENT documented as of this encounter Care Teams Stereo Operator Relationship Specialty Start Date End Date Radha Cowan MD [address] [phone] PCP - General Family Practice 10/24/20 documented as of this encounter
--- OUTSIDE RECORDS SUMMARY | 2025-08-08 17:44 | XMS_ITS | Encounter Summary ---
Author Organization [facility] Address [address] [place] [address] Care Team Providers Care Multimedia Editor Name Role Phone Radha Cowan MD Primary Care Provider Encounter Details Date Type Department Care Team (Latest Contact Info) Description 07/05/2001 Outpatient Historical [facility] Augusto Nicole Jr., MD [address] [place] [phone] VACCINE FOR INFLUENZA (Primary Dx) Social History Tobacco Use Types Packs/Day Years Used Date Smoking Tobacco: Never Assessed Comments Unknown Sex and Gender Information Value Date Recorded Sex Assigned at Not on file Legal Sex Female 3:33 AM VENDOR MANAGEMENT CONSULTANT Gender Identity Not on file Sexual [...] R/O COVID-19 07/25/2020 07/25/2020 07/27/2020 5:01 AM VENDOR MANAGEMENT CONSULTANT R/O COVID-19 09/30/2020 09/30/2020 09/30/2020 7:23 PM VENDOR MANAGEMENT CONSULTANT documented as of this encounter Care Teams Multimedia Editor Relationship Specialty Start Date End Date Radha Cowan MD [address] [facility] [address] [place] [phone] PCP - General Family Practice 10/24/20 documented as of this encounter
--- OUTSIDE RECORDS SUMMARY | 2025-08-08 17:44 | XMS_ITS | Encounter Summary ---
Author Organization [facility] Address [address] [place] [address] Care Team Providers Care Guest Services Coordinator Name Role Phone Radha Cowan MD Primary Care Provider Encounter Details Date Type Department Care Team (Late st Contact Info) Description 10/31/2004 Outpatient Historical [facility] Alfonso Carranza MD [address] [address] Social History Tobacco Use Types Packs/Day Years Used Date Smoking Tobacco: Never Assessed Comments Unknown Sex and Gender Information Value Date Recorded Sex Assigned at Not on file Legal Sex Female 3:33 AM ROLLED MATERIALS WORKER Gender Identity Not on file Sexual Orientation Not on file documented as of this encounter Plan of Treatment Not on file documented as of this encounter Visit Diagnoses Not on filedocumented in this encounter Additional Health Concerns Infection Onset Date Last Indicated Resolved Time R/O COVID-19 05/16/2020 05/16/2020 05/18/2020 12:3 1 AM CDT R/O COVID-19 07/25/2020 07/25/2020 07/27/2020 5:01 AM ROLLED MATERIALS WORKER R/O COVID-19 09/30/2020 09/30/2020 09/30/2020 7:23 PM ROLLED MATERIALS WORKER documented as of this encounter Care Teams Guest Services Coordinator Relationship Specialty Start Date End Date Radha Cowan MD [address] [place] [phone] PCP - General Family Practice 10/24/20 documented as of this encounter
--- OUTSIDE RECORDS SUMMARY | 2025-08-08 17:44 | XMS_ITS | Encounter Summary ---
Author Organization [facility] Address [address] [place] [address] Care Team Providers Care Industrial Recruiter Name Role Phone Radha Cowan MD Primary Care Provider [phone] Encounter Details Date Type Department Care Team (Latest Contact Info) Description 04/27/2003 Outpatient Historical [facility] Augusto Nicole Jr., MD [address] [place] [phone] HAIR DISEASES NEC (Primary Dx); ABN SERUM ENZY LEVEL NEC; HYPERLIPIDEMIA NEC/NOS Social History Tobacco Use Types Packs/Day Years Used Date Smoking Tobacco: Never Assessed Comments Unknown Sex and Gender Information Value Date Recorded Sex Assigned at Not on file Legal Sex Female 3:33 AM AUTO RESEARCH ENGINEER Gender Identity Not on file Sexual [...] COVID-19 07/25/2020 07/25/2020 07/27/2020 5:01 AM AUTO RESEARCH ENGINEER R/O COVID-19 09/30/2020 09/30/2020 09/30/2020 7:23 PM AUTO RESEARCH ENGINEER documented as of this encounter Care Teams Industrial Recruiter Relationship Specialty Start Date End Date Radha Cowan MD [address] [phone] PCP - General Family Practice 10/24/20 documented as of this encounter
--- OUTSIDE RECORDS SUMMARY | 2025-08-08 17:44 | XMS_ITS | Encounter Summary ---
Author Organization [facility] Address [address] [place] [address] Care Team Providers Care Room Attendants Name Role Phone Radha Cowan MD Primary Care Provider [phone] Encounter Details Date Type Department Care Team (Latest Contact Info) Description 05/19/2002 Outpatient Historical [facility] Corey Burkett, Augusto Tang MD [address] [place] [phone] DIABETES UNCOMPL ADULT-TYPE II (CMS/HCC) (Primary Dx); Pure hypercholesterolem; AFTERCARE SHELTER USE MEDICATN Social History Tobacco Use Types Packs/Day Years Used Date Smoking Tobacco: Never Assessed Comments Unknown Sex and Gender Information Value Date Recorded Sex Assigned at Not on file Legal Sex Female 3:33 AM SENIOR PRODUCTION PLANNER Gender Identity Not on file Sexual [...] COVID-19 07/25/2020 07/25/2020 07/27/2020 5:01 AM SENIOR PRODUCTION PLANNER R/O COVID-19 09/30/2020 09/30/2020 09/30/2020 7:23 PM SENIOR PRODUCTION PLANNER documented as of this encounter Care Teams Room Attendants Relationship Specialty Start Date End Date Radha Cowan MD [address] [phone] PCP - General Family Practice 10/24/20 documented as of this encounter
--- OUTSIDE RECORDS SUMMARY | 2025-08-08 17:44 | XMS_ITS | Encounter Summary ---
Author Organization [facility] Address [address] [place] [address] Care Team Providers Care Educational Psychology Teacher Name Role Phone Radha Cowan MD Primary Care Provider Encounter Details Date Type Department Care Team (Latest Contact Info) Description 12/14/2002 Outpatient Historical [facility] Augusto Nicole Jr., MD [address] [place] [phone] DIABETES UNCOMPL ADULT-TYPE II ([facility]) (Primary Dx); ACUTE SINUSITIS NOS; PULMONARY EOSINOPHILIA Social History Tobacco Use Types Packs/Day Years Used Date Smoking Tobacco: Never Assessed Comments Unknown Sex and Gender Information Value Date Recorded Sex Assigned at Not on file Legal Sex Female 3:33 AM EXCEL DEVELOPER Gender Identity Not on file Sexual [...] R/O COVID-19 07/25/2020 07/25/2020 07/27/2020 5:01 AM EXCEL DEVELOPER R/O COVID-19 09/30/2020 09/30/2020 09/30/2020 7:23 PM EXCEL DEVELOPER documented as of this encounter Care Teams Educational Psychology Teacher Relationship Specialty Start Date End Date Radha Cowan MD [address] [phone] PCP - General Family Practice 10/24/20 documented as of this encounter
--- OUTSIDE RECORDS SUMMARY | 2025-08-08 17:44 | XMS_ITS | Encounter Summary ---
Author Organization [facility] Address [address] [place]: [place] [address] Care Team Providers Care Substance Abuse Clinician Name Role Phone Radha Cowan MD Primary Care Provider [phone] Encounter Details Date Type Department Care Team (Late st Contact Info) Description 09/01/2001 Outpatient Historical Augusto Nicole Jr., MD [address] [place] [phone] Social History Tobacco Use Types Packs/Day Years Used Date Smoking Tobacco: Never Assessed Comments Unknown Sex and Gender Information Value Date Recorded Sex Assigned at Not on file Legal Sex Female 3:33 AM RADIOCOMMUNICATIONS TECHNICIAN Gender Identity Not on file Sexual Orientation Not on file documented as of this encounter Plan of Treatment Not on file documented as of this encounter Visit Diagnoses Not on filedocumented in this encounter Additional Health Concerns Infection Onset Date Last Indicated Resolved Time R/O COVID-19 05/16/2020 05/16/2020 05/18/2020 12:3 1 AM CDT R/O COVID-19 07/25/2020 07/25/2020 07/27/2020 5:01 AM RADIOCOMMUNICATIONS TECHNICIAN R/O COVID-19 09/30/2020 09/30/2020 09/30/2020 7:23 PM RADIOCOMMUNICATIONS TECHNICIAN documented as of this encounter Care Teams Substance Abuse Clinician Relationship Specialty Start Date End Date Radha Cowan MD [address] [facility] [address] [place] [phone] PCP - General Family Practice 10/24/20 documented as of this encounter
--- OUTSIDE RECORDS SUMMARY | 2025-08-08 17:44 | XMS_ITS | Encounter Summary ---
Author Organization [facility] Address [address] [place] [address] Care Team Providers Care Battery Charger Conveyor Line Name Role Phone Radha Cowan MD Primary Care Provider Encounter Details Date Type Department Care Team (Latest Contact Info) Description 08/11/2002 Outpatient Historical HIS [facility] Augusto Nicole Jr., MD [address] [place] [phone] HYPERLIPIDEMIA NEC/NOS (Primary Dx) Social History Tobacco Use Types Packs/Day Years Used Date Smoking Tobacco: Never Assessed Comments Unknown Sex and Gender Information Value Date Recorded Sex Assigned at Not on file Legal Sex Female 3:33 AM SENIOR COST ANALYST Gender Identity Not on file Sexual [...] COVID-19 07/25/2020 07/25/2020 07/27/2020 5:01 AM SENIOR COST ANALYST R/O COVID-19 09/30/2020 09/30/2020 09/30/2020 7:23 PM SENIOR COST ANALYST documented as of this encounter Care Teams Battery Charger Conveyor Line Relationship Specialty Start Date End Date Radha Cowan MD [address] [facility] [address] [place] [address] PCP - General Family Practice 10/24/20 documented as of this encounter
--- OUTSIDE RECORDS SUMMARY | 2025-08-08 17:44 | XMS_ITS | Encounter Summary ---
Author Organization [facility] Address [address] [place] [address] Care Team Providers Care Corporate Travel Manager Name Role Phone Radha Cowan MD Primary Care Provider Encounter Details Date Type Department Care Team (Latest Contact Info) Description 08/11/2002 Outpatient Historical [facility] Corey Burkett, Augusto Tang MD [address] [place] [phone] DIABETES UNCOMPL ADULT-TYPE II (CMS/HCC) (Primary Dx); DERMATOPHYTOSIS OF NAIL; ANEMIA NOS; VACCINE FOR INFLUENZA Social History Tobacco Use Types Packs/Day Years Used Date Smoking Tobacco: Never Assessed Comments Unknown Sex and Gender Information Value Date Recorded Sex Assigned at Not on file Legal Sex Female 3:33 AM PROJECT MANAGEMENT INSTRUCTOR Gender Identity Not on file Sexual [...] COVID-19 07/25/2020 07/25/2020 07/27/2020 5:01 AM PROJECT MANAGEMENT INSTRUCTOR R/O COVID-19 09/30/2020 09/30/2020 09/30/2020 7:23 PM PROJECT MANAGEMENT INSTRUCTOR documented as of this encounter Care Teams Corporate Travel Manager Relationship Specialty Start Date End Date Radha Cowan MD [address] [phone] PCP - General Family Practice 10/24/20 documented as of this encounter
--- OUTSIDE RECORDS SUMMARY | 2025-08-08 17:44 | XMS_ITS | Encounter Summary ---
Author Organization [facility] Address [address] [place] [address] Care Team Providers Care Policy Manager Name Role Phone Radha Cowan MD Primary Care Provider Encounter Details Date Type Department Care Team (Late st Contact Info) Description 06/20/2003 Outpatient Historical HIS [facility] Augusto Nicole Jr., MD [address] [place] [phone] PNEUMONIA, ORGANISM NOS (Primary Dx) Social History Tobacco Use Types Packs/Day Years Used Date Smoking Tobacco: Never Assessed Comments Unknown Sex and Gender Information Value Date Recorded Sex Assigned at Not on file Legal Sex Female 3:33 AM TRIM SAWYER Gender Identity Not on file Sexual Orientation [...] R/O COVID-19 07/25/2020 07/25/2020 07/27/2020 5:01 AM TRIM SAWYER R/O COVID-19 09/30/2020 09/30/2020 09/30/2020 7:23 PM TRIM SAWYER documented as of this encounter Care Teams Policy Manager Relationship Specialty Start Date End Date Radha Cowan MD [address] [phone] PCP - General Family Practice 10/24/20 documented as of this encounter
--- OUTSIDE RECORDS SUMMARY | 2025-08-08 17:44 | XMS_ITS | Encounter Summary ---
Author Organization [facility] Address [address] [place] [address] Care Team Providers Care Cloth Printing Inspector Name Role Phone Radha Cowan MD Primary Care Provider [phone]- [phone] Encounter Details Date Type Department Care Team (Latest Contact Info) Description 04/19/2003 Outpatient Historical [facility] Corey Burkett, Augusto Tang MD [address] [place] [phone] DIABETES UNCOMPL ADULT-TYPE II (CMS/HCC) (Primary Dx); OPEN WOUND KNEE/LEG/ANKLE; HYPERTENSION NOS; HYPERLIPIDEMIA NEC/NOS Social History Tobacco Use Types Packs/Day Years Used Date Smoking Tobacco: Never Assessed Comments Unknown Sex and Gender Information Value Date Recorded Sex Assigned at Not on file Legal Sex Female 3:33 AM STAFF MIDWIFE Gender Identity Not on file Sexual Orientation [...] COVID-19 07/25/2020 07/25/2020 07/27/2020 5:01 AM STAFF MIDWIFE R/O COVID-19 09/30/2020 09/30/2020 09/30/2020 7:23 PM STAFF MIDWIFE documented as of this encounter Care Teams Cloth Printing Inspector Relationship Specialty Start Date End Date Radha Cowan MD [address] [phone] PCP - General Family Practice 10/24/20 documented as of this encounter
--- OUTSIDE RECORDS SUMMARY | 2025-08-08 17:44 | XMS_ITS | Encounter Summary ---
Author Organization [facility] Address [address] [place] [address] Care Team Providers Care Clerical Warehouse Worker Name Role Phone Radha Cowan MD Primary Care Provider Encounter Details Date Type Department Care Team (Latest Contact Info) Description 01/12/2003 Outpatient Historical [facility] [place] [address] [place] [address] Mirza Amezcua MD NO ADDRESS ON FILE COUGH (Primary Dx) Social History Tobacco Use Types Packs/Day Years Used Date Smoking Tobacco: Never Assessed Comments Unknown Sex and Gender Information Value Date Recorded Sex Assigned at Not on file Legal Sex Female 3:33 AM SMOKE CHASER Gender Identity Not on file Sexual Orientation Not on file documented as of this encounter Plan of Treatment Not on file documented as of this encounter Visit Diagnoses Diagnosis Cough- Primary documented in this encounter Additional Health Concerns Infection Onset Date Last Indicated Resolved Time R/O COVID-19 05/16/2020 05/16/2020 05/18/2020 12:3 1 AM CDT R/O COVID-19 07/25/2020 07/25/2020 07/27/2020 5:01 AM SMOKE CHASER R/O COVID-19 09/30/2020 09/30/2020 09/30/2020 7:23 PM SMOKE CHASER documented as of this encounter Care Teams Clerical Warehouse Worker Relationship Specialty Start Date End Date Radha Cowan MD [address] [facility] [address] [place] [phone] PCP - General Family Practice 10/24/20 documented as of this encounter
--- OUTSIDE RECORDS SUMMARY | 2025-08-08 17:44 | XMS_ITS | Encounter Summary ---
Author Organization [facility] Address [address] [place] [address] Care Team Providers Care Costume Rental Clerk Name Role Phone Radha Cowan MD Primary Care Provider Encounter Details Date Type Department Care Team (Latest Contact Info) Description 06/30/2002 Outpatient Historical [facility] Corey Burkett, Augusto Tang MD [address] [place] [phone] DIABETES UNCOMPL ADULT-TYPE II (CMS/HCC) (Primary Dx); RENAL & URETERAL DIS NOS; HYPERTENSION NOS; HYPERLIPIDEMIA NEC/NOS Social History Tobacco Use Types Packs/Day Years Used Date Smoking Tobacco: Never Assessed Comments Unknown Sex and Gender Information Value Date Recorded Sex Assigned at Not on file Legal Sex Female 3:33 AM BEER COIL CLEANER Gender Identity Not on file Sexual [...] R/O COVID-19 07/25/2020 07/25/2020 07/27/2020 5:01 AM BEER COIL CLEANER R/O COVID-19 09/30/2020 09/30/2020 09/30/2020 7:23 PM BEER COIL CLEANER documented as of this encounter Care Teams Costume Rental Clerk Relationship Specialty Start Date End Date Radha Cowan MD [address] [phone] PCP - General Family Practice 10/24/20 documented as of this encounter
--- OUTSIDE RECORDS SUMMARY | 2025-08-08 17:44 | XMS_ITS | Encounter Summary ---
Author Organization [facility] Address [address] [place] [address] Care Team Providers Care Retail Merchandising Manager Name Role Phone Radha Cowan MD Primary Care Provider [phone]- [phone] Encounter Details Date Type Department Care Team (Latest Contact Info) Description 06/20/2003 Outpatient Historical [facility] Corey Burkett, Augusto Tang MD [address] [place] [phone] DIABETES UNCOMPL ADULT-TYPE II ([facility]) (Primary Dx); ACUTE BRONCHIOLITIS/RESP SYNC VIRUS; TRACHEA/BRONCHUS DIS NEC; ASTHMA UNSPECIFIED Social History Tobacco Use Types Packs/Day Years Used Date Smoking Tobacco: Never Assessed Comments Unknown Sex and Gender Information Value Date Recorded Sex Assigned at Not on file Legal Sex Female 3:33 AM SIMPLEX PRINTER INSTALLER Gender Identity Not on file Sexual [...] R/O COVID-19 07/25/2020 07/25/2020 07/27/2020 5:01 AM SIMPLEX PRINTER INSTALLER R/O COVID-19 09/30/2020 09/30/2020 09/30/2020 7:23 PM SIMPLEX PRINTER INSTALLER documented as of this encounter Care Teams Retail Merchandising Manager Relationship Specialty Start Date End Date Radha Cowan MD [address] [phone] PCP - General Family Practice 10/24/20 documented as of this encounter
--- OUTSIDE RECORDS SUMMARY | 2025-08-08 17:44 | XMS_ITS | Encounter Summary ---
Author Organization [facility] Address [address] [place] [address] Care Team Providers Care Hunting Sales Leader Name Role Phone Radha Cowan MD Primary Care Provider Encounter Details Date Type Department Care Team (Latest Contact Info) Description 01/15/2003 Outpatient Historical [facility] Corey Burkett, Augusto Tang MD [address] [place] [phone] DIABETES UNCOMPL ADULT-TYPE II (CMS/HCC) (Primary Dx); Pure hypercholesterolem; HYPERTENSION NOS; TOBACCO USE DISORDER Social History Tobacco Use Types Packs/Day Years Used Date Smoking Tobacco: Never Assessed Comments Unknown Sex and Gender Information Value Date Recorded Sex Assigned at Not on file Legal Sex Female 3:33 AM FILM TESTS CHECKER Gender Identity Not on file Sexual Orientation [...] R/O COVID-19 07/25/2020 07/25/2020 07/27/2020 5:01 AM FILM TESTS CHECKER R/O COVID-19 09/30/2020 09/30/2020 09/30/2020 7:23 PM FILM TESTS CHECKER documented as of this encounter Care Teams Hunting Sales Leader Relationship Specialty Start Date End Date Radha Cowan MD [address] [phone] PCP - General Family Practice 10/24/20 documented as of this encounter
--- OUTSIDE RECORDS SUMMARY | 2025-08-08 17:44 | XMS_ITS | Encounter Summary ---
Author Organization [facility] Address [address] [place] [address] Care Team Providers Care Mine Technician Name Role Phone Radha Cowan MD Primary Care Provider Encounter Details Date Type Department Care Team (Latest Contact Info) Description 02/19/[address] [facility] Corey Burkett, Augusto Tang MD [address] [place] [phone] DIABETES UNCOMPL ADULT-TYPE II (CMS/HCC) (Primary Dx); MIGRAINE NOS W/O MENTN INTRACTABLE; Pure hypercholesterolem; DERMATOPHYTOSIS OF NAIL Social History Tobacco Use Types Packs/Day Years Used Date Smoking Tobacco: Never Assessed Comments Unknown Sex and Gender Information Value Date Recorded Sex Assigned at Not on file Legal Sex Female 3:33 AM GERMINATION TESTING MANAGER Gender Identity Not on file Sexual [...] R/O COVID-19 07/25/2020 07/25/2020 07/27/2020 5:01 AM GERMINATION TESTING MANAGER R/O COVID-19 09/30/2020 09/30/2020 09/30/2020 7:23 PM GERMINATION TESTING MANAGER documented as of this encounter Care Teams Mine Technician Relationship Specialty Start Date End Date Radha Cowan MD [address] [phone] PCP - General Family Practice 10/24/20 documented as of this encounter
--- OUTSIDE RECORDS SUMMARY | 2025-08-08 17:44 | XMS_ITS | Encounter Summary ---
Author Organization [facility] Address [address] [place]: [place] [address] Care Team Providers Care Housesmith Name Role Phone Radha Cowan MD Primary Care Provider [phone] Encounter Details Date Type Department Care Team (Late st Contact Info) Description 07/03/2002 Outpatient Historical Augusto Nicole Jr., MD [address] [place] [id number] Social History Tobacco Use Types Packs/Day Years Used Date Smoking Tobacco: Never Assessed Comments Unknown Sex and Gender Information Value Date Recorded Sex Assigned at Not on file Legal Sex Female 3:33 AM BUGGY DRIVER Gender Identity Not on file Sexual Orientation Not on file documented as of this encounter Plan of Treatment Not on file documented as of this encounter Visit Diagnoses Not on filedocumented in this encounter Additional Health Concerns Infection Onset Date Last Indicated Resolved Time R/O COVID-19 05/16/2020 05/16/2020 05/18/2020 12:3 1 AM CDT R/O COVID-19 07/25/2020 07/25/2020 07/27/2020 5:01 AM BUGGY DRIVER R/O COVID-19 09/30/2020 09/30/2020 09/30/2020 7:23 PM BUGGY DRIVER documented as of this encounter Care Teams Housesmith Relationship Specialty Start Date End Date Radha Cowan MD [address] [place] [phone] PCP - General Family Practice 10/24/20 documented as of this encounter
--- OUTSIDE RECORDS SUMMARY | 2025-08-08 17:44 | XMS_ITS | Encounter Summary ---
Author Organization [facility] Address [address] [place] [address] Care Team Providers Care Literature Teacher Name Role Phone Radha Cowan MD Primary Care Provider Encounter Details Date Type Department Care Team (Latest Contact Info) Description 07/20/2001 Outpatient Historical [facility] Fadi Hampton MD [address] [place] [address] CHRONIC RHINITIS (Primary Dx); TRACHEA/BRONCHUS DIS NEC; OBESITY NOS; TOBACCO USE DISORDER Social History Tobacco Use Types Packs/Day Years Used Date Smoking Tobacco: Never Assessed Comments Unknown Sex and Gender Information Value Date Recorded Sex Assigned at Not on file Legal Sex Female 3:33 AM SPEEDER TENDER Gender Identity Not on file Sexual [...] R/O COVID-19 07/25/2020 07/25/2020 07/27/2020 5:01 AM SPEEDER TENDER R/O COVID-19 09/30/2020 09/30/2020 09/30/2020 7:23 PM SPEEDER TENDER documented as of this encounter Care Teams Literature Teacher Relationship Specialty Start Date End Date Radha Cowan MD [address] [phone] PCP - General Family Practice 10/24/20 documented as of this encounter
--- OUTSIDE RECORDS SUMMARY | 2025-08-08 17:44 | XMS_ITS | Encounter Summary ---
Author Organization [facility] Address [address] [place] [address] Care Team Providers Care Data Sme Name Role Phone Radha Cowan MD Primary Care Provider Encounter Details Date Type Department Care Team (Latest Contact Info) Description 03/07/2003 Outpatient Historical [facility] Corey Burkett, Augusto Tang MD [address] [place] [phone] CHRONIC AIRWAY OBSTRUCTION NEC (CMS/[facility]) (Primary Dx); BRONCHITIS NOS; EDEMA; Pure hypercholesterolem Social History Tobacco Use Types Packs/Day Years Used Date Smoking Tobacco: Never Assessed Comments Unknown Sex and Gender Information Value Date Recorded Sex Assigned at Not on file Legal Sex Female 3:33 AM INSTALLATION TECH Gender Identity Not on file Sexual [...] R/O COVID-19 07/25/2020 07/25/2020 07/27/2020 5:01 AM INSTALLATION TECH R/O COVID-19 09/30/2020 09/30/2020 09/30/2020 7:23 PM INSTALLATION TECH documented as of this encounter Care Teams Data Sme Relationship Specialty Start Date End Date Radha Cowan MD [address] [phone] PCP - General Family Practice 10/24/20 documented as of this encounter
--- OUTSIDE RECORDS SUMMARY | 2025-08-08 17:44 | XMS_ITS | Encounter Summary ---
Author Organization [facility] Address [address] [place] [address] Care Team Providers Care Bead Trimmer Name Role Phone Radha Cowan MD Primary Care Provider [phone] Encounter Details Date Type Department Care Team (Latest Contact Info) Description 11/06/2020 Ancillary Orders [facility] [address] [place] [address] uJancarlos Sapp [place] NO ADDRESS ON FILE Inconclusive mammography Social History Tobacco Use Types Packs/Day Years Used Date Smoking Tobacco: Some Days Cigarettes 1 20 Smokeless Tobacco: Never Alcohol Use Standard Drinks/Week Comments No 0 (1 standard drink = 0.6 oz pur e alcohol) Comments No Sex and Gender Information Value Date Recorded Sex Assigned at Not on file Legal Sex Female 3:33 AM HAMMERER HELPER Gender Identity Not on file Sexual Orientation Not on file Occupation Industry Job Start Date Job End Date Not on file Not on file Not on file Not on file COVID-19 Exposure Response Date Recorded In the last month, have you been in contact with someone who was confirmed or suspected to have Coronavirus / COVID-19? No / Unsure 11/04/2020 8:57 AM HAMMERER HELPER documented as of this encounter Plan of Treatment Not on file documented as of this encounter Visit Diagnoses Diagnosis Inconclusive mammography Inconclusive mammogram documented in this encounter Care Teams Bead Trimmer Relationship Specialty Start Date End Date Radha Cowan MD [address] [place] [phone] PCP - General Family Practice 10/24/20 documented as of this encounter
--- OUTSIDE RECORDS SUMMARY | 2025-08-08 17:44 | XMS_ITS | Encounter Summary ---
Author Organization [facility] Address [address] [place] [address] Care Team Providers Care Chief Security Officer Name Role Phone Radha Cowan MD Primary Care Provider [phone] Encounter Details Date Type Department Care Team (Late st Contact Info) Description 02/19/2003 Outpatient Historical [facility] Augusto Nicole Jr., MD [address] [place] [id number] DIABETES UNCOMPL ADULT-TYPE II (CMS/HCC) (Primary Dx) Social History Tobacco Use Types Packs/Day Years Used Date Smoking Tobacco: Never Assessed Comments Unknown Sex and Gender Information Value Date Recorded Sex Assigned at Not on file Legal Sex Female 3:33 AM CUSTOMER SOLUTIONS COORDINATOR Gender Identity Not on file Sexual [...] COVID-19 07/25/2020 07/25/2020 07/27/2020 5:01 AM CUSTOMER SOLUTIONS COORDINATOR R/O COVID-19 09/30/2020 09/30/2020 09/30/2020 7:23 PM CUSTOMER SOLUTIONS COORDINATOR documented as of this encounter Care Teams Chief Security Officer Relationship Specialty Start Date End Date Radha Cowan MD [address] [phone] PCP - General Family Practice 10/24/20 documented as of this encounter
--- OUTSIDE RECORDS SUMMARY | 2025-08-08 17:44 | XMS_ITS | Encounter Summary ---
Author Organization [facility] Address [address] [place] [address] Care Team Providers Care Executive Sous Chef Name Role Phone Radha Cowan MD Primary Care Provider Encounter Details Date Type Department Care Team (Latest Contact Info) Description 11/02/2002 Outpatient Historical [facility] Corey Burkett, Augusto Tang MD [address] [place] [phone] DIABETES UNCOMPL ADULT-TYPE II (CMS/HCC) (Primary Dx); Pure hypercholesterolem; LUMBAGO; ABNORMAL FINDINGS-LUNG FIELD Social History Tobacco Use Types Packs/Day Years Used Date Smoking Tobacco: Never Assessed Comments Unknown Sex and Gender Information Value Date Recorded Sex Assigned at Not on file Legal Sex Female 3:33 AM BELT SANDER Gender Identity Not on file Sexual Orientation [...] R/O COVID-19 07/25/2020 07/25/2020 07/27/2020 5:01 AM BELT SANDER R/O COVID-19 09/30/2020 09/30/2020 09/30/2020 7:23 PM BELT SANDER documented as of this encounter Care Teams Executive Sous Chef Relationship Specialty Start Date End Date Radha Cowan MD [address] [phone] PCP - General Family Practice 10/24/20 documented as of this encounter
[2025-08-08 17:57] VITALS: BP 115/75; PULSE 108; TEMP 36.7; O2SAT 96; BMI 40.7
--- NOTE | 2025-08-08 18:28 | XRR_ITS ---
PROCEDURE INFORMATION: Exam: XR Chest Exam date and time: 08/08/2025 6:39 PM Age: 70 years old Clinical indication: Cough and dyspnea; Additional info: Dyspnea/cough TECHNIQUE: Imaging protocol: Radiologic exam of the chest. Views: 1 view. COMPARISON: CT angio chest PE protcl [id number] 06/28/2025 8:54 PM FINDINGS: Tubes, catheters and devices: Left chest wall MediPort catheter terminates in the SVC. Lungs: Right upper lung opacity in keeping with known mass, not significantly changed compared with prior CT on 06/28/2025 when accounting for differences in technique. No new focal airspace opacity. Pleural spaces: No pneumothorax or pleural effusion. Heart/Mediastinum: Heart size can not be accurately assessed in this projection Bones/joints: Unremarkable. XR/XR chest 1V portable [id number] IMPRESSION: 1. Redemonstrated right upper lung opacity in keeping with known mass. 2. No new focal airspace opacity.
[2025-08-08 20:04] LABS: Alanine Aminotransferase 11 U/L (0-33); Albumin Level 3.7 g/dL (3.5-5.2); Alkaline Phosphatase 127 U/L (35-105); Anion Gap 16.5 (5-19); Aspartate Amino Transferase 10 U/L (0-32); Blood Urea Nitrogen 8 mg/dL (8-23); Calcium 9.1 mg/dL (8.5-10.5); Carbon Dioxide 26 mmol/L (22-29); Chloride 99 mmol/L (98-107); Globulin 3.1 g/dL (1.3-4.6); Glucose 147 mg/dL (65-115); Osmolality Calculated 287 mOsm/kg (285-295); Potassium 3.5 mmol/L (3.5-5.1); Sodium 138 mmol/L (136-145); Total Protein 6.8 g/dL (6.6-8.7)
[2025-08-08 21:00] VITALS: BP 122/90; PULSE 110; O2SAT 97
--- NOTE | 2025-08-08 21:00 | CTR_ITS ---
PROCEDURE INFORMATION: Exam: CTA Chest With Contrast Exam date and time: 08/08/2025 10:07 PM Age: 70 years old Clinical indication: Pain; Angina pectoris; Additional info: Lung CA, rle pain and chest pain, dyspnea TECHNIQUE: Imaging protocol: Computed tomographic angiography of the chest with contrast. Exam focused on the arteries. 3D rendering (Not supervised by radiologist): MIP and/or 3D reconstructed images were created by the technologist. Radiation optimization: All CT scans at this facility use at least one of these dose optimization techniques: automated exposure control; mA and/or kV adjustment per patient size (includes targeted exams where dose is matched to clinical indication); or iterative reconstruction. Contrast material: OMNI 350; Contrast volume: 100 ml; Contrast route: INTRAVENOUS (IV); COMPARISON: CT angio chest PE protcl [id number] 06/28/2025 8:54 PM RADIATION DOSE METRICS: Total DLP (mGy-cm): 519.11 FINDINGS: Tubes, catheters and devices: Left chest wall MediPort catheter terminates in the SVC. Pulmonary arteries: No pulmonary embolism. Right pulmonary arteries are attenuated/invaded by the mass. Aorta: Intimal calcifications of the aorta and it proximal branch vessels. Trachea: Patent central airways. Lungs: Redemonstrated masslike opacity in the right upper lobe with volume loss compatible with known malignancy. There is narrowing of the adjacent airways and pulmonary arteries. New patchy opacities in the wolll-[id number]-vbub-left lower lobes, and to a lesser extent the left upper lobe. Pleural spaces: No pneumothorax. Trace right pleural effusion. Heart: Heart size is normal. No pericardial effusion. Coronary arteries: Coronary artery calcifications Lymph nodes: Multiple small nonspecific mediastinal lymph nodes, not significantly changed. Prominent bilateral perihilar nodes are similar to prior exam. Bones/joints: No acute fracture or dislocation.No lytic or blastic osseous lesions. Soft tissues: Unremarkable. CT/CT angio chest PE protcl [id number] IMPRESSION: 1. Redemonstrated right upper lobe mass. 2. New opacities in the right lower lobe as well as the left lung, possibly infectious or inflammatory. Correlate clinically.
--- NOTE | 2025-08-08 21:00 | USR_ITS ---
PROCEDURE INFORMATION: Exam: US Duplex Right Lower Extremity Veins, Limited Exam date and time: 08/08/2025 9:22 PM Age: 70 years old Clinical indication: Pain; Leg, lower; Right; Additional info: Rle pain, lung CA, R/O dvt TECHNIQUE: Imaging protocol: Real-time duplex ultrasound of the right extremity with 2-D enrique scale, color Doppler flow and spectral waveform analysis including responses to compression and other maneuvers (when performed) with image documentation. Limited exam was focused on the right lower extremity veins. COMPARISON: US renal BI* [id number] 05/31/2025 5:44 PM FINDINGS: Right deep veins: Unremarkable. The common femoral, femoral, proximal profunda femoral and popliteal veins are patent without thrombus. Normal Doppler waveforms. Normal compressibility and/or augmentation response. Superficial veins: Greater saphenous vein at the saphenofemoral junction is patent without thrombus. Soft tissues: Unremarkable. US/[place] [id number] IMPRESSION: No evidence of deep vein thrombosis.
--- NOTE | 2025-08-08 21:01 | ECG_ITS ---
[facility] Date: 2025-08-08 Pat Name: Marli Eli Department: Room: Gender: Female Applications Sales Representative: : [id number] Requested By: Dexter Bolaños Order Number: [id number] Natarajan MD: Marisa Butterfield M.D. Measurements Intervals [place] Rate: 107 P: 69 CO: 144 QRS: 101 QRSD: 140 T: 40 QT: 356 QTc: 476 Interpretive Statements SINUS TACHYCARDIA RIGHT AXIS DEVIATION [QRS AXIS > 100] RIGHT BUNDLE BRANCH BLOCK [120+ ms QRS DURATION, UPRIGHT V1, 40+ ms S IN I/aVL/V4/V5/V6] Compared to ECG 06/29/2025 01:43:16 Right-axis deviation now present Electronically Signed On 08-08-2025 23:25:36 VOLUNTEER RECRUITER by Marisa Butterfield M.D. [email or web address]
[2025-08-08 21:08] LABS: Hematocrit 25.4 % (36-47); Hemoglobin 8.30 g/dL (11.27-16.99); Mean Corpuscular HGB Conc 32.7 g/dL (30-55); Mean Corpuscular Hemoglobin 29.2 pg (27-33); Mean Corpuscular Volume 89.4 fl (85-98); Platelet Count 182 10^3/cmm (157-399); Red Blood Count 2.84 10^6/uL (3.85-5.65); White Blood Count 10.81 10^3/uL (3.29-11.43)
--- NOTE | 2025-08-08 21:18 | W.ED.SOB ---
HPI - SOB/Dyspnea General: Chief Complaint: ER Hold Stated Complaint: SOB, back pain Time Seen by Provider: 08/08/25 20:54 History of Present Illness: HPI Narrative: 70-year-old female with a past medical history significant for hypertension, CHF, right-sided lung cancer with progression of disease status postchemotherapy currently on chemotherapy last received last week, COPD on home oxygen 3 L at baseline, presenting to the emergency department with worsening shortness of breath compared to her baseline over the last few days, reportedly had to increase her home oxygen to 5 L for her dyspnea today which prompted her to seek medical care. She also reports a several month history of right leg pain which she reports has not been evaluated or diagnosed, she also reports low back pain which she has had intermittently for the past several months, she also reports a new symptom of left-sided chest pain rating to the left arm and neck that started while in the emergency department waiting room approximately 10 minutes prior to my evaluation. She endorses several months of chronic nasal congestion without any recent change, she denies any acute cough, denies any fever Related Data Home Medications ?Medication ?Instructions ?Recorded ?Confirmed insulin lispro 100 unit/mL See Rx Instructions SUBCUT TID PRN 08/02/23 07/30/25 subcutaneous pen (Humalog KwikPen blood sugar (U-100) Insulin) dulaglutide 3 mg/0.5 mL 3 mg SUBCUT Q7D 03/22/24 07/30/25 subcutaneous pen injector (Trulicity) arformoterol 15 mcg/2 mL solution 2 ml inhalation BID PRN Shortness 02/19/25 07/30/25 for nebulization Of Breath cholecalciferol (vitamin D3) 125 125 mcg PO DAILY 02/19/25 07/30/25 mcg (5,000 unit) capsule aspirin 81 mg tablet,delayed 81 mg PO DAILY 05/30/25 07/30/25 release loratadine 10 mg tablet (Claritin) 10 mg PO DAILY 06/29/25 07/30/25 Previous Rx's ?Medication ?Instructions ?Recorded pantoprazole 40 mg tablet,delayed 40 mg PO BID #180 tabs 02/06/25 release albuterol sulfate 90 mcg/actuation 2 inh inhalation Q4H PRN shortness 05/21/25 aerosol inhaler of breath or wheezing #6.7 grams metoprolol tartrate 25 mg tablet 25 mg PO DAILY 90 days #90 tabs 05/24/25 gabapentin 300 mg capsule 300 mg PO BID #60 caps 05/28/25 atorvastatin 10 mg tablet 10 mg PO DAILY 90 days #90 tabs 06/29/25 bumetanide 1 mg tablet 1 mg PO DAILY #90 tabs 06/29/25 levothyroxine 25 mcg tablet 25 mcg PO QAM #90 tabs 06/29/25 ubrogepant 50 mg tablet 50 mg PO 1XD PRN Migraine Headache 07/26/25 #7 tabs Allergies Allergy/AdvReac Type Severity Reaction Status Date / Time codeine Allergy Unknown ADR-Nausea Verified 08/08/25 18:00 adhesive tape Allergy ALGY-Bliste Verified 08/08/25 18:00 r ketorolac (From Toradol) Allergy Unknown Verified 08/08/25 18:00 melatonin Allergy ADR-Nausea Verified 08/08/25 18:00 PFSH ED PFSH: Medical History COPD (chronic obstructive pulmonary disease) 3L o2 , mild to mod copd responsive to bronchodilator Chemotherapy induced neutropenia History of cataract cataract left eye 09/20 right eye 12/20 Chronic constipation 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 Pleuritic chest pain Chronic hypoxemic respiratory failure Small cell lung cancer Nicotine use disorder PTSD (post-traumatic stress disorder) Bipolar disorder current episode depressed History of attempted suicide Hypothyroidism (acquired) Duodenitis Gastritis Sleep apnea Obesity Bipolar affect, depressed Depression Hypertension Diabetes Oxygen dependent CHF (congestive heart failure) GERD (gastroesophageal reflux disease) Enrolled in chronic care management Surgical History History of appendectomy H/O colonoscopy with polypectomy H/O esophagogastroduodenoscopy Tubal ligation status S/P cholecystectomy Family History Father Lung cancer Sister Ovarian cancer Mother Diabetes Other CAD (coronary artery disease) Social History Smoking and tobacco/nicotine status: former use of tobacco/nicotine Alcohol intake: former Year of sobriety/quit date alcohol: 1999 Substance/Drug Use: never Additional social history: She lives alone and states she drives herself to her chemo. She wants full CODE STATUS as discussed today with Fredi Curry MD on 02/05/2025 Adopted: No Caregiver/support person: No Lives independently: No Household members: family Housing: House Current gender identity: Female Physical Exam Narrative: EXAM NARRATIVE: Gen: A&Ox4, no acute distress, nontoxic appearing HEENT: Normocephalic, atraumatic, no scleral icterus, external ears normal, moist mucous membranes Neck: Supple, full range of motion, no observable masses Lungs: No Respiratory distress, Lungs clear to auscultation bilaterally no rales, rhonchi, wheezing CV: Regular rate and rhythm, no murmur, no pitting edema to lower extremities bilaterally Abdomen: Soft, nondistended, nontender to palpation MSK: No joint swelling, FROM all 4 extremities no significant tenderness palpation of the right lower extremity, palpable DP/PT pulses, no pitting edema, no warmth or redness Skin: No rashes, petechiae, lesions. Normal color per patient. Neuro: Alert and oriented, no slurred speech, sensation and strength grossly intact all 4 extremities Psych: Appropriate for situation. Course Reevaluation(s): Reevaluation #1: Results of workup significant for no neutropenia or leukocytosis, white blood cell count 10.8, moderate anemia 8.3 not meeting transfusion threshold for patient on chemotherapy typically would transfuse less than 8, chest x-ray appeared unremarkable however CT scan showing multifocal infectious process consistent with pneumonia which would explain patient's acutely worsening dyspnea, she remains mildly tachycardic and tachypneic without liza hypoxia, I discussed with her potential management options for her symptoms to include the possibility of IV dose of antibiotics and trial of oral outpatient therapy. At this time she does not feel comfortable with oral antibiotics and prefers to be admitted which is reasonable on an observation status given the patient's underlying medical core morbidities tachypnea and chronic oxygen dependence. Will admit for treatment of pneumonia. Time: 23:28 Consultations: Consultation #1: Spoke to hospitalist Dr. Dexter who will admit the patient for management of pneumonia Time: 00:22 Vital Signs: Vital signs: Vital Signs Temperature 98.1 F 08/08/25 17:57 Pulse Rate 108 H 08/09/25 03:05 Respiratory Rate 24 H 08/08/25 22:24 Blood Pressure 106/76 08/09/25 03:05 Pulse Oximetry 97 08/09/25 03:05 Oxygen Delivery Me thod Nasal Cannula 08/09/25 03:05 Oxygen Flow Rate 3 08/09/25 03:05 MDM - SOB/Dyspnea Medical Decision Making 70-year-old female history of CHF, COPD, chronic oxygen dependence, right-sided lung cancer on chemotherapy, presenting to the emergency department with report of worsening dyspnea nonspecifically over the last few days, several months of nonspecific right leg pain from the calf down, and a more acute onset of mild left-sided chest pain with radiation to the arm and neck that started while in the ED waiting room 10 minutes prior to my evaluation, she also has a nonspecific complaint of low back pain, she is mildly tachycardic, she is currently saturating well on her home oxygen 3 L/min at 96% but has increased it to 5 L while in the waiting room for comfort, her most recent blood work was 2 days ago where she was moderately anemic to 9.00 not requiring transfusion, she has an appointment with her oncology clinic tomorrow with scheduled 2 unit blood transfusion on hold, given the patient's active malignancy, she is not on blood thinners, will obtain right lower extremity ultrasound and CTA of the chest to assess for VTE, rule out pneumonia, rule out ACS, reassess for disposition Lab Data Labs showing no leukocytosis, moderate anemia 8.3, no DAJA 08/08/25 19:22 08/08/25 19:22 Labs/Radiology: Radiology Impressions Chest X-Ray 08/08/25 18:28 IMPRESSION: 1. Redemonstrated right upper lung opacity in keeping with known mass. 2. No new focal airspace opacity. Chest CTA 08/08/25 21:00 IMPRESSION: 1. Redemonstrated right upper lobe mass. 2. New opacities in the right lower lobe as well as the left lung, possibly infectious or inflammatory. Correlate clinically. Venous Duplex 08/08/25 21:00 IMPRESSION: No evidence of deep vein thrombosis. Laboratory Results WBC 10.81 10^3/uL (3.29-11.43) 08/08/25 19:22 RBC 2.84 10^6/uL (3.85-5.65) L 08/08/25 19:22 Hgb 8.30 g/dL (11.27-16.99) L 08/08/25 19:22 Hct 25.4 % (36-47) L 08/08/25 19:22 MCV 89.4 fl (85-98) 08/08/25 19:22 MCH 29.2 pg (27-33) 08/08/25 19:22 MCHC 32.7 g/dL (30-55) 08/08/25 19:22 RDW 15.5 % (12.1-15.1) H 08/08/25 19:22 Plt Count 182 10^3/cmm (157-399) 08/08/25 19:22 MPV 9.7 fL (7.4-10.4) 08/08/25 19:22 Lymph % (Auto) Not Reportable 08/08/25 19:22 [place] % (Auto) Not Reportable 08/08/25 19:22 Lymph # (Auto) Not Reportable 08/08/25 19:22 [place] # (Auto) Not Reportable 08/08/25 19:22 Total Counted 100 (0-100) 08/08/25 19:22 Atypical Lymphs % Not Reportable 08/08/25 19:22 Absolute Neutrophils 9.5 10^3/cmm (1.4-6.5) H 08/08/25 19:22 Segmented Neutrophils 77 % 08/08/25 19:22 Band Neutrophils 11.0 % 08/08/25 19:22 Lymphocytes (Manual) 7 % 08/08/25 19:22 Monocytes (Manual) 4.0 % 08/08/25 19:22 Absolute Monocytes 0.4 10^3/cmm (0.1-0.6) 08/08/25 19:22 Eosinophils (Manual) 1 % 08/08/25 19:22 Absolute Eosinophils 0.1 10^3/cmm (0.0-0.7) 08/08/25 19:22 Basophils (Manual) 0.0 % 08/08/25 19: Absolute Basophils 0.0 10^3/cmm (0.0-0.2) 08/08/25 19:22 Platelet Estimate Normal (Normal) 08/08/25 19:22 PT 13.20 SECONDS (12.1-14.9) 08/08/25 23:00 INR 0.94 (0.8-1.2) 08/08/25 23:00 APTT 28.5 SECONDS (23.9-36.7) 08/08/25 23:00 D-Dimer 2.46 ug/mLFEU (0-0.59) H 08/08/25 23:00 Sodium 138 mmol/L (136-145) 08/08/25 19:22 Potassium 3.5 mmol/L (3.5-5.1) 08/08/25 19:22 Chloride 99 mmol/L (98-107) 08/08/25 19:22 Carbon Dioxide 26 mmol/L (22-29) 08/08/25 19:22 Anion Gap 16.5 (5-19) 08/08/25 19:22 BUN 8 mg/dL (8-23) 08/08/25 19:22 Creatinine 0.7 mg/dL (0.5-0.9) 08/08/25 19:22 GFR Calculation 83.0 mL/min (90-130) L 08/08/25 19:22 Glucose 147 mg/dL (65-115) H 08/08/25 19:22 Calculated Osmolality 287 mOsm/kg (285-295) 08/08/25 19:22 Lactic Acid 2.0 mmol/L (0.5-2.2) 08/08/25 23:00 Calcium 9.1 mg/dL (8.5-10.5) 08/08/25 19:22 Total Bilirubin 0.2 mg/dL (0.15-1.2) 08/08/25 19:22 AST 10 U/L (0-32) 08/08/25 19:22 ALT 11 U/L (0-33) 08/08/25 19:22 Alkaline Phosphatase 127 U/L (35-105) H 08/08/25 19:22 Troponin T Baseline 8 ng/L (0-10) 08/08/25 23:00 NT-Pro-B Natriuret Pep 256 pg/mL (0-125) H 08/08/25 23:00 Total Protein 6.8 g/dL (6.6-8.7) 08/08/25 19:22 Albumin 3.7 g/dL (3.5-5.2) 08/08/25 19:22 Globulin 3.1 g/dL (1.3-4.6) 08/08/25 19:22 Urine Color Yellow (Yellow) 08/08/25 22:02 Urine Appearance Clear (CLEAR) 08/08/25 22:02 Urine pH 7.0 (5-7) 08/08/25 22:02 Ur Specific [place] 1.017 (1.005-1.030) 08/08/25 22:02 Urine Protein Negative (Negative) 08/08/25 22:02 Urine Glucose (UA) Negative (Normal) 08/08/25 22:02 Urine Ketones Negative (Negative) 08/08/25 22:02 Urine Blood Negative (Negative) 08/08/25 22:02 Urine Nitrate Negative (Negative) 08/08/25 22:02 Urine Bilirubin Negative (Negative) 08/08/25 22:02 Urine Urobilinogen 1.0 mg/dL (Negative) 08/08/25 22:02 Ur Leukocyte Esterase Negative (Negative) 08/08/25 22:02 Urine RBC 0-2 /hpf (0-2) 08/08/25 22:02 Urine WBC 0-5 /hpf (0-5) 08/08/25 22:02 Ur Squamous Epith Cells 0-5 /hpf (0-5) 08/08/25 22:02 Amorphous Sediment Not Reportable 08/08/25 22:02 Urine Bacteria None seen /hpf (NONE) 08/08/25 22:02 Hyaline Casts 0-4 /lpf H 08/08/25 22:02 Influenza A (PCR) Negative (Negative) 08/08/25 21:29 Influenza Type B (PCR) Negative (Negative) 08/08/25 21:29 RSV (PCR) Negative (Negative) 08/08/25 21:29 SARS-CoV-2 (PCR) Negative (Negative) 08/08/25 21:29 All radiology interpretation(s) finalized by discharge ED provider radiology interpretation(s): Chest x-ray showing previously demonstrated lung mass, no overt pneumonia. CTA chest showing multifocal pneumonia no pulmonary embolism EKG Data EKG 1: I personally reviewed and interpreted this EKG as follows: EKG Interpretation Date: 08/08/25 EKG interpretation time: 21:26 Interpretation: Sinus tachycardia 107 bpm, right axis deviation, right bundle branch block, no STEMI, QTc 419 ms, no ectopy EKG 2: I personally reviewed and interpreted this EKG as follows: EKG Interpretation Date: 08/09/25 EKG interpretation time: 03:17 Interpretation: Sinus tachycardia 107 bpm, right bundle branch block, no STEMI, QTc 416 ms Discharge Plan Discharge Patient Disposition: Admitted As Inpatient Admit Provider: Zackary Dexter Clinical Impression: Community acquired pneumonia Condition: Stable Coding Level of Care Code ED Media Operator for Farhat Cooper
[2025-08-08 21:37] LABS: Slide Review Slide Review Perform
[2025-08-08 21:44] LABS: Total Cells Counted 100 (0-100)
[2025-08-08 21:45] LABS: Absolute Segmented Neutrophil 8.3 10/cmm (1.6-7.1)
[2025-08-08 21:46] LABS: Band Neutrophils Absolute 1.2 10^3/cmm (0.0-1.2)
[2025-08-08 22:09] LABS: Respiratory Syncytial Virus Ce NEGATIVE (Negative); SARS-CoV-2 PCR NEGATIVE (Negative)
[2025-08-08] MEDS: iohexol 350 mg/mL 500 mL Btl (per mL) IV (22:12)
[2025-08-08 22:17] LABS: Glucose Urine UA Negative (Normal); Nitrate Urine Negative (Negative); Specific Gravity, Urine 1.017 (1.005-1.030)
[2025-08-08 22:21] VITALS: BP 112/96; PULSE 117; O2SAT 100
[2025-08-08 22:23] LABS: Add Urine Microscopic? YES
[2025-08-08 22:24] VITALS: RESP 24; O2SAT 100
[2025-08-08] MEDS: morphine 4 mg/mL SDV 1 mL IVP (22:24)
[2025-08-08 23:07] VITALS: BP 114/71; PULSE 115; O2SAT 95
--- NOTE | 2025-08-08 23:10 | ECG_ITS ---
[facility] Test Date: 2025-08-08 Pat Name: Marli Eli Department: Room: Gender: Female Library Monitor: : 1955 Requested By: Dexter Bolaños Order Number: [id number] Delgado MD: Marisa Butterfield M.D. Measurements Intervals [place] Rate: 112 P: 35 SC: 104 QRS: 96 QRSD: 143 T: 41 QT: 355 QTc: 487 Interpretive Statements SINUS TACHYCARDIA WITH SHORT SC INTERVAL WITH OCCASIONAL SUPRAVENTRICULAR PREMATURE COMPLEXES RIGHT BUNDLE BRANCH BLOCK [120+ ms QRS DURATION, UPRIGHT V1, 40+ ms S IN I/aVL/V4/V5/V6] Compared to ECG 08/08/2025 21:15:57 Short SC interval now present Right-axis deviation no longer present Electronically Signed On 08-08-2025 23:41:02 RED HAT ENGINEER by Marisa Butterfield M.D. [email or web address]
[2025-08-08 23:30] VITALS: PULSE 112; O2SAT 97
[2025-08-08 23:55] LABS: Troponin(5th) Baseline 8 ng/L (0-10)
[2025-08-09] VITALS (25 sets, daily range): BP systolic 93–125; BP diastolic 54–94; PULSE 96–114; RESP 16–19; TEMP 36.4–36.7; O2SAT 91–99; BMI 40.7
[2025-08-09 00:18] LABS: INR 0.94 (0.8-1.2); Partial Thromboplastin Time 28.5 SECONDS (23.9-36.7); Prothrombin Time 13.20 SECONDS (12.1-14.9)
[2025-08-09 00:27] LABS: Lactic Sepsis W/Reflex 2.0 mmol/L (0.5-2.2)
--- NOTE | 2025-08-09 00:38 | PC.NURSE ---
PTS ANTIBIOTICS ARE DELAYED DUE TO LAB NOT DRAWING THE BLOOD CULTURES YET.
--- NOTE | 2025-08-09 00:43 | PM.HP ---
Providers/Chief Complaint Primary Care Provider: MAUREEN Majano Chief Complaint: SOB, back pain History of Present Illness Marli Eli is a 70 year old female with history significant for COPD with chronic respiratory failure(maintained on 3L), CAD, tyep 2 DM, and small call lung cancer, who presents with complaints of shortness of breath. She states she woke up the day of presentation in her usual stat of health but around noon, she began to feel short of breath. She was well enough to continue with her day and eventually go to dinner with family at 4pm where she felt worse. She had a vomiting episode and worsening shortness of breath. From dinner, she eventually decided to go to the ED for further evaluation and management. She denies any fevers or chills. No recent ill contacts. She does endorse back pain and left arm pain that radiates to the neck. No cough. Medications/Allergies Home Medications ?Medication ?Instructions ?Recorded ?Confirmed ?Last Taken ?Type insulin lispro 100 unit/mL See Rx Instructions SUBCUT TID PRN 08/02/23 07/30/25 02/04/25 08:00 History subcutaneous pen (Humalog KwikPen blood sugar (U-100) Insulin) dulaglutide 3 mg/0.5 mL 3 mg SUBCUT Q7D 03/22/24 07/30/25 06/28/25 History subcutaneous pen injector (Trulicity) pantoprazole 40 mg tablet,delayed 40 mg PO BID #180 tabs 02/06/25 07/30/25 06/28/25 Rx release arformoterol 15 mcg/2 mL solution 2 ml inhalation BID PRN Shortness 02/19/25 07/30/25 05/30/25 History for nebulization Of Breath cholecalciferol (vitamin D3) 125 125 mcg PO DAILY 02/19/25 07/30/25 06/28/25 History mcg (5,000 unit) capsule albuterol sulfate 90 mcg/actuation 2 inh inhalation Q4H PRN shortness 05/21/25 07/30/25 Unknown Rx aerosol inhaler of breath or wheezing #6.7 grams metoprolol tartrate 25 mg tablet 25 mg PO DAILY 90 days #90 tabs 05/24/25 07/30/25 06/28/25 Rx gabapentin 300 mg capsule 300 mg PO BID #60 caps 05/28/25 07/30/25 06/28/25 Rx aspirin 81 mg tablet,delayed 81 mg PO DAILY 05/30/25 07/30/25 06/28/25 History release atorvastatin 10 mg tablet 10 mg PO DAILY 90 days #90 tabs 06/29/25 07/30/25 Unknown Rx bumetanide 1 mg tablet 1 mg PO DAILY #90 tabs 06/29/25 07/30/25 Unknown Rx levothyroxine 25 mcg tablet 25 mcg PO QAM #90 tabs 06/29/25 07/30/25 Unknown Rx loratadine 10 mg tablet (Claritin) 10 mg PO DAILY 06/29/25 07/30/25 06/28/25 History ubrogepant 50 mg tablet 50 mg PO 1XD PRN Migraine Headache 07/26/25 07/30/25 Unknown Rx #7 tabs Allergies Allergy/AdvReac Type Severity Reaction Status Date / Time codeine Allergy Unknown ADR-Nausea Verified 08/08/25 18:00 adhesive tape Allergy ALGY-Bliste Verified 08/08/25 18:00 r ketorolac (From Toradol) Allergy Unknown Verified 08/08/25 18:00 melatonin Allergy ADR-Nausea Verified 08/08/25 18:00 PFSH Acute PFSH: Medical History (Updated 08/08/25 @ 23:31 by Dexter Bolaños MD) COPD (chronic obstructive pulmonary disease) 3L o2 , mild to mod copd responsive to bronchodilator Chemotherapy induced neutropenia History of cataract cataract left eye 09/20 right eye 12/20 Chronic constipation 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 Pleuritic chest pain Chronic hypoxemic respiratory failure Small cell lung cancer Nicotine use disorder PTSD (post-traumatic stress disorder) Bipolar disorder current episode depressed History of attempted suicide Hypothyroidism (acquired) Duodenitis Gastritis Sleep apnea Obesity Bipolar affect, depressed Depression Hypertension Diabetes Oxygen dependent CHF (congestive heart failure) GERD (gastroesophageal reflux disease) Enrolled in chronic care management Surgical History History of appendectomy H/O colonoscopy with polypectomy H/O esophagogastroduodenoscopy Tubal ligation status S/P cholecystectomy Family History Father Lung cancer Sister Ovarian cancer Mother Diabetes Other CAD (coronary artery disease) Social History Smoking and tobacco/nicotine status: former use of tobacco/nicotine Alcohol intake: former Year of sobriety/quit date alcohol: 1999 Substance/Drug Use: never Additional social history: She lives alone and states she drives herself to her chemo. She wants full CODE STATUS as discussed today with Fredi Curry MD on 02/05/2025 Adopted: No Caregiver/support person: No Lives independently: No Household members: family Housing: House Current gender identity: Female Vitals/I&O/Wt Last Vital Signs Temp 98.1 F 08/08/25 17:57 Pulse 115 H 08/08/25 23:07 Resp 24 H 08/08/25 22:24 BP 114/71 08/08/25 23:07 Pulse Ox 95 08/08/25 23:07 O2 Del Method Nasal Cannula 08/08/25 23:07 O2 Flow Rate 3 08/08/25 23:07 Weight last 48 hrs Weight 104.326 kg Physical Exam Const: COMMON NORMALS: no acute distress and patient oriented x3 Eye: COMMON NORMALS: Equal, round and reactive pupils present PUPIL: Yes Equal, round and reactive pupils present Resp: COMMON NORMALS: normal respiratory effort, No retractions and No use of accessory muscles OTHER: coarse breath sounds noted to the right base Cardio: COMMON NORMALS: regular rate, regular rhythm, S1 normal heart sound present and S2 normal heart sound present RATE: regular rate RHYTHM: regular rhythm HEART SOUNDS: S1 normal heart sound present and S2 normal heart sound present GI: COMMON NORMALS: Normal to inspection, nondistended, normoactive bowel sounds present, Soft to palpation and non-tender Neuro: COMMON NORMALS: patient oriented x3, CN's II-XII intact bilaterally and moves all extremities Psych: COMMON NORMALS: mental status grossly normal Data 08/08/25 19:22 08/08/25 19:22 A&P Assessment and plan 1. Community acquired pneumonia: 2. COPD exacerbation: Plan: Community acquired pneumonia Acute exacerbation of COPD Chronic respiratory failure - Continue with Azithromycin and Rocephin - Check sputum culture - PRN duonebs - Continue O2 at 3L per home use - 40mg Prednisone daily x5 days Type 2 DM - Placed on low sliding scale insulin while hospitalized Continue the remainder of her home medications for her chronic conditions PDMP PDMP Reviewed: Not Reviewed Attestations Medical Necessity Statement*: Patient anticipated to require less than two midnights for management of her community acquired pneumonia Coding Level of Care Code Acute Code for [facility] Diagnoses Community acquired pneumonia J18.9 COPD exacerbation J44.1
[2025-08-09] MEDS: cefTRIAXone 1,000 mg SDV 1000 MG IVP (01:05)
[2025-08-09 02:37] LABS: NT Pro B Type Natriuretic Pept 256 pg/mL (0-125)
--- NOTE | 2025-08-09 03:17 | ECG_ITS ---
[facility] Date[facility]25-[facility]-09 Pat Name: Marli Eli Department: Room: ED Gender: Female Superintendent Factory: : 1955 Requested By: Dexter Bolaños Order Number: [id number] Delgado MD: Marisa Butterfield M.D. Measurements Intervals [place] Rate: 107 P: 61 TN: 140 QRS: 82 QRSD: 141 T: 52 QT: 354 QTc: 473 Interpretive Statements SINUS TACHYCARDIA RIGHT BUNDLE BRANCH BLOCK [120+ ms QRS DURATION, UPRIGHT V1, 40+ ms S IN I/aVL/V4/V5/V6] Compared to ECG 08/08/2025 23:10:31 Short [place] interval no longer present Electronically Signed On 08-10-2025 19:02:38 EXPELLER OPERATOR by Marisa Butterfield M.D. [email or web address]
[2025-08-09 07:20] LABS: Carbon Dioxide 23 mmol/L (22-29); Troponin 5 6HR 7.48 ng/L (0-10)
[2025-08-09 07:25] LABS: Troponin 5 6HR Delta -0.52 ng/L (0-12)
[2025-08-09 07:29] LABS: Hematocrit 22.4 % (36-47); Hemoglobin 7.30 g/dL (11.27-16.99); Mean Corpuscular HGB Conc 32.6 g/dL (30-55); Mean Corpuscular Hemoglobin 29.1 pg (27-33); Mean Corpuscular Volume 89.2 fl (85-98); Nucleated Red Blood Cells % 0.2 %; Platelet Count 141 10^3/cmm (157-399); Red Blood Count 2.51 10^6/uL (3.85-5.65); White Blood Count 10.36 10^3/uL (3.29-11.43)
[2025-08-09 07:37] LABS: Anion Gap 15.7 (5-19); Blood Urea Nitrogen 7 mg/dL (8-23); Calcium 8.7 mg/dL (8.5-10.5); Chloride 102 mmol/L (98-107); Glucose 120 mg/dL (65-115); Osmolality Calculated 283 mOsm/kg (285-295); Potassium 3.7 mmol/L (3.5-5.1); Sodium 137 mmol/L (136-145)
--- NOTE | 2025-08-09 08:20 | PC.PHAR ---
Pt states Trulicity shot is due today 08/09/25.
[2025-08-09] MEDS: ARFORMOTEROL 15 MCG/2 ML NEB INHALATION ×2 (09:31→20:41)
[2025-08-09] MEDS: HYDROcodone-acetaminophen 5-325 mg Tablet 1 TAB PO (19:14)
[2025-08-10] VITALS (18 sets, daily range): BP systolic 98–147; BP diastolic 64–83; PULSE 90–111; RESP 16–18; TEMP 36.3–36.8; O2SAT 95–99
[2025-08-10] MEDS: cefTRIAXone 1,000 mg SDV 1000 MG IVP (01:10)
[2025-08-10] MEDS: ATORVASTATIN 10 MG TABLET PO (04:11)
[2025-08-10 05:36] LABS: Hemoglobin 6.90 g/dL (11.27-16.99); Mean Corpuscular HGB Conc 33.0 g/dL (30-55); Mean Corpuscular Hemoglobin 29.7 pg (27-33); Mean Corpuscular Volume 90.1 fl (85-98); Nucleated Red Blood Cells % 0 %; Platelet Count 111 10^3/cmm (157-399); Red Blood Count 2.32 10^6/uL (3.85-5.65); White Blood Count 7.54 10^3/uL (3.29-11.43)
[2025-08-10 05:49] LABS: Hematocrit 20.9 % (36-47)
[2025-08-10 05:58] LABS: Anion Gap 13.0 (5-19); Blood Urea Nitrogen 10 mg/dL (8-23); Calcium 8.9 mg/dL (8.5-10.5); Carbon Dioxide 27 mmol/L (22-29); Chloride 103 mmol/L (98-107); Glucose 110 mg/dL (65-115); Osmolality Calculated 288 mOsm/kg (285-295); Potassium 4.0 mmol/L (3.5-5.1); Sodium 139 mmol/L (136-145)
[2025-08-10] MEDS: ARFORMOTEROL 15 MCG/2 ML NEB INHALATION ×2 (09:20→20:33)
[2025-08-10] MEDS: polyethylene glycol 3350 Pkt 17 gm PO (15:31)
[2025-08-11] VITALS (11 sets, daily range): BP systolic 106–140; BP diastolic 63–90; PULSE 87–112; RESP 17–19; TEMP 36.4–36.8; O2SAT 97–100; BMI 42.5
[2025-08-11] MEDS: cefTRIAXone 1,000 mg SDV 1000 MG IVP (01:58)
[2025-08-11] MEDS: HYDROcodone-acetaminophen 5-325 mg Tablet 1 TAB PO (03:23)
[2025-08-11] MEDS: polyethylene glycol 3350 Pkt 17 gm PO (05:25)
[2025-08-11] MEDS: ATORVASTATIN 10 MG TABLET PO (05:27)
[2025-08-11 10:19] LABS: Hematocrit 30.4 % (36-47); Hemoglobin 9.50 g/dL (11.27-16.99); Mean Corpuscular HGB Conc 31.3 g/dL (30-55); Mean Corpuscular Hemoglobin 29.3 pg (27-33); Mean Corpuscular Volume 93.8 fl (85-98); Nucleated Red Blood Cells % 0 %; Platelet Count 150 10^3/cmm (157-399); Red Blood Count 3.24 10^6/uL (3.85-5.65); White Blood Count 9.88 10^3/uL (3.29-11.43)
[2025-08-11 11:45] LABS: Alanine Aminotransferase 11 U/L (0-33); Albumin Level 3.6 g/dL (3.5-5.2); Alkaline Phosphatase 120 U/L (35-105); Anion Gap 16.8 (5-19); Aspartate Amino Transferase 10 U/L (0-32); Blood Urea Nitrogen 11 mg/dL (8-23); Calcium 9.3 mg/dL (8.5-10.5); Carbon Dioxide 25 mmol/L (22-29); Chloride 96 mmol/L (98-107); Globulin 3.2 g/dL (1.3-4.6); Glucose 219 mg/dL (65-115); Osmolality Calculated 282 mOsm/kg (285-295); Potassium 4.8 mmol/L (3.5-5.1); Sodium 133 mmol/L (136-145); Total Protein 6.8 g/dL (6.6-8.7)
--- NOTE | 2025-08-11 13:15 | P.PN_ITS ---
Subjective 2 Subjective: breathing better reported mild Vitals/I&O/Wt Last Vital Signs Temp 98.0 F 08/11/25 11:37 Pulse 94 08/11/25 11:37 Resp 19 H 08/11/25 11:37 BP 114/73 08/11/25 11:37 Pulse Ox 97 08/11/25 11:37 O2 Del Method Nasal Cannula 08/11/25 11:37 O2 Flow Rate 3 08/11/25 07:20 08/10/25 08/11/25 08/11/25 22:59 06:59 14:59 Intake Total 600 / 1080 250 / 1330 840 / 840 Output Total 600 / 1150 400 / 1550 Balance 0 / -70 -150 / -220 840 / 840 Weight last 48 hrs Weight 108.862 kg Weight 105.687 kg Physical Exam 2 Const: COMMON NORMALS: no acute distress and patient oriented x3 Eye: COMMON NORMALS: Equal, round and reactive pupils present PUPIL: Yes Equal, round and reactive pupils present Resp: COMMON NORMALS: normal respiratory effort, No retractions and No use of accessory muscles OTHER: coarse breath sounds noted to the right base Cardio: COMMON NORMALS: regular rate, regular rhythm, S1 normal heart sound present and S2 normal heart sound present RATE: regular rate RHYTHM: r egular rhythm HEART SOUNDS: S1 normal heart sound present and S2 normal heart sound present GI: COMMON NORMALS: Normal to inspection, nondistended, normoactive bowel sounds present, Soft to palpation and non-tender PALPATION: Yes Soft to palpation Neuro: COMMON NORMALS: patient oriented x3, CN's II-XII intact bilaterally and moves all extremities Psych: COMMON NORMALS: mental status grossly normal Data 08/11/25 10:09 08/11/25 11:17 Micro: Microbiology 08/09/25 19:36 Sputum Culture - Preliminary Sputum - Expectorated Sputum A&P Assessment and plan 1. Community acquired pneumonia: Plan: #CAP #COPD #dizziness #T2DM #lung ca #hypothryoidism plan 1. check orthostatics 2. consider IVF 3. continue ceftriaxone 4. prednisone, inhalers dispo: DC in AM PDMP PDMP Reviewed: Not Reviewed Attestations 2 Medical Necessity Statement*: abx Coding Level of Care Code 93830 Diagnoses Community acquired pneumonia J18.9
--- NOTE | 2025-08-11 14:14 | P.PN_ITS ---
Subjective 2 Subjective: DOS 08/10/25 Late entry reports having some sob enrique sputum Vitals/I&O/Wt Last Vital Signs Temp 98.0 F 08/11/25 11:37 Pulse 96 08/11/25 13:57 Resp 18 08/11/25 13:47 BP 131/89 08/11/25 13:57 Pulse Ox 97 08/11/25 13:47 O2 Del Method Nasal Cannula 08/11/25 13:47 O2 Flow Rate 3 08/11/25 13:47 08/10/25 08/11/25 08/11/25 22:59 06:59 14:59 Intake Total 600 / 1080 250 / 1330 840 / 840 Output Total 600 / 1150 400 / 1550 Balance 0 / -70 -150 / -220 840 / 840 Weight last 48 hrs Weight 108.862 kg Weight 105.687 kg Physical Exam 2 Const: COMMON NORMALS: no acute distress and patient oriented x3 Eye: COMMON NORMALS: Equal, round and reactive pupils present PUPIL: Yes Equal, round and reactive pupils present Resp: COMMON NORMALS: normal respiratory effort, No retractions and No use of accessory muscles OTHER: coarse breath sounds noted to the right base Cardio: COMMON NORMALS: regular rate, regular rhythm, S1 normal heart sound present and S2 normal heart sound present RATE: regular rate RHYTHM: r egular rhythm HEART SOUNDS: S1 normal heart sound present and S2 normal heart sound present GI: COMMON NORMALS: Normal to inspection, nondistended, normoactive bowel sounds present, Soft to palpation and non-tender PALPATION: Yes Soft to palpation Neuro: COMMON NORMALS: patient oriented x3, CN's II-XII intact bilaterally and moves all extremities Psych: COMMON NORMALS: mental status grossly normal Data 08/11/25 10:09 08/11/25 11:17 Micro: Microbiology 08/09/25 19:36 Sputum Culture - Preliminary Sputum - Expectorated Sputum A&P Assessment and plan 1. Community acquired pneumonia: 2. COPD exacerbation: Plan: Community acquired pneumonia Acute exacerbation of COPD Chronic respiratory failure - Continue with Azithromycin and Rocephin - PRN duonebs - Continue O2 at 3L per home use - 40mg Prednisone daily x5 days Lung CA -followup with oncology -MRI scheduled next week Type 2 DM - Placed on low sliding scale insulin while hospitalized dispo:dc in 1-2 days PDMP PDMP Reviewed: Not Reviewed Attestations 2 Medical Necessity Statement*: iv abx, orthostatic vitals Coding Level of Care Code Acute Code for [facility] Fwd Diagnoses Community acquired pneumonia J18.9 COPD exacerbation J44.1
[2025-08-11] MEDS: ARFORMOTEROL 15 MCG/2 ML NEB INHALATION (21:20)
[2025-08-12] VITALS (7 sets, daily range): BP systolic 114–141; BP diastolic 69–92; PULSE 83–99; RESP 16–20; TEMP 36.5–36.7; O2SAT 95–99
[2025-08-12] MEDS: cefTRIAXone 1,000 mg SDV 1000 MG IVP (01:21)
[2025-08-12] MEDS: polyethylene glycol 3350 Pkt 17 gm PO (05:42)
[2025-08-12] MEDS: ATORVASTATIN 10 MG TABLET PO (05:43)
[2025-08-12] MEDS: ARFORMOTEROL 15 MCG/2 ML NEB INHALATION (09:32)
[2025-08-12 10:58] LABS: Alanine Aminotransferase 11 U/L (0-33); Albumin Level 3.3 g/dL (3.5-5.2); Alkaline Phosphatase 120 U/L (35-105); Blood Urea Nitrogen 13 mg/dL (8-23); Calcium 9.1 mg/dL (8.5-10.5); Carbon Dioxide 20 mmol/L (22-29); Chloride 99 mmol/L (98-107); Globulin 3.0 g/dL (1.3-4.6); Glucose 221 mg/dL (65-115); Osmolality Calculated 281 mOsm/kg (285-295); Sodium 132 mmol/L (136-145); Total Protein 6.3 g/dL (6.6-8.7)
[2025-08-12 10:59] LABS: Anion Gap 17.5 (5-19); Aspartate Amino Transferase 12 U/L (0-32); Potassium 4.5 mmol/L (3.5-5.1)
--- NOTE | 2025-08-12 11:43 | P.DS_ITS ---
Discharge Providers Date of Admission: 08/10/25 09:00 Date of Discharge: August 12, 2025 Attending Provider at Admission: Zackary Dexter MD Attending Provider at Discharge: Otoniel Jeronimo MD Primary Care Provider: MAUREEN Majano Diagnoses at Discharge Discharge Diagnosis 1. Community acquired pneumonia: 2. COPD exacerbation: Reason for Visit Reason for Visit: SOB, back pain Hospital Course Hospital Course H&P: Marli Eli is a 70 year old female with history significant for COPD with chronic respiratory failure(maintained on 3L), CAD, tyep 2 DM, and small call lung cancer, who presents with complaints of shortness of breath. She states she woke up the day of presentation in her usual stat of health but around noon, she began to feel short of breath. She was well enough to continue with her day and eventually go to dinner with family at 4pm where she felt w orse. She had a vomiting episode and worsening shortness of breath. From dinner, she eventually decided to go to the ED for further evaluation and management. She denies any fevers or chills. No recent ill contacts. She does endorse back pain and left arm pain that radiates to the neck. No cough. Hospital course: patient was admitted with cap, copd exacerbation. chronic conditions were also monitored including lung ca,a nd dm placed on abx, O2, steroids symptoms improved. discharged in stable conditon. Physical Exam Const: COMMON NORMALS: no acute distress and patient oriented x3 Eye: COMMON NORMALS: Equal, round and reactive pupils present PUPIL: Yes Equal, round and reactive pupils present Resp: COMMON NORMALS: normal respiratory effort, No retractions and No use of accessory muscles OTHER: coarse breath sounds noted to the right base Cardio: COMMON NORMALS: regular rate, regular rhythm, S1 normal heart sound present and S2 normal heart sound present RATE: regular rate RHYTHM: regular rhythm HEART SOUNDS: S1 normal heart sound present and S2 normal heart sound present GI: COMMON NORMALS: Normal to inspection, nondistended, normoactive bowel sounds present, Soft to palpation and non-tender PALPATION: Yes Soft to palpation Neuro: COMMON NORMALS: patient oriented x3, CN's II-XII intact bilaterally and moves all extremities Psych: COMMON NORMALS: mental status grossly normal Discharge Data Studies Completed and Pending Completed Studies During Hospitalization Category Date Time Status CTA PE [CT angio chest PE protcl 01002] Stat Cat Scan 08/08/25 21:00 Completed XR chest 1V portable [id number] Stat Exams 08/08/25 18:28 Completed US venous duplex lower extremity RT [CV venous duplex Ultrasound 08/08/25 21:[place] [id number]] Stat Pending at discharge Category Date Time Status Blood Culture Stat Lab 08/08/25 23:28 Results Complete Blood Count w/Auto Routine Lab 08/12/25 10:43 Ordered Sputum Culture Routine Lab 08/09/25 19:36 Results Radiology Impressions Chest X-Ray 08/08/25 18:28 IMPRESSION: 1. Redemonstrated right upper lung opacity in keeping with known mass. 2. No new focal airspace opacity. Chest CTA 08/08/25 21:00 IMPRESSION: 1. Redemonstrated right upper lobe mass. 2. New opacities in the right lower lobe as well as the left lung, possibly infectious or inflammatory. Correlate clinically. Venous Duplex 08/08/25 21:00 IMPRESSION: No evidence of deep vein thrombosis. Laboratory Results WBC Cancelled 08/12/25 10:13 Corrected WBC Cancelled 08/12/25 10:13 RBC Cancelled 08/12/25 10:13 Hgb Cancelled 08/12/25 10:13 Hct Cancelled 08/12/25 10:13 MCV Cancelled 08/12/25 10:13 MCH Cancelled 08/12/25 10:13 MCHC Cancelled 08/12/25 10:13 RDW Cancelled 08/12/25 10:13 Plt Count Cancelled 08/12/25 10:13 MPV Cancelled 08/12/25 10:13 Gran % Cancelled 08/12/25 10:13 Neut % (Auto) Cancelled 08/12/25 10:13 Lymph % (Auto) Cancelled 08/12/25 10:13 Boundary % (Auto) Cancelled 08/12/25 10:13 Eos % (Auto) Cancelled 08/12/25 10:13 Baso % (Auto) Cancelled 08/12/25 10:13 Neut # (Auto) Cancelled 08/12/25 10:13 Lymph # (Auto) Cancelled 08/12/25 10:13 Boundary # (Auto) Cancelled 08/12/25 10:13 Eos # (Auto) Cancelled 08/12/25 10:13 Baso # (Auto) Cancelled 08/12/25 10:13 Absolute Gran (auto) Cancelled 08/12/25 10:13 Nucleated RBC % (auto) Cancelled 08/12/25 10:13 Total Counted 100 (0-100) 08/08/25 19:22 Atypical Lymphs % Not Reportable 08/08/25 19:22 Absolute Neutrophils 9.5 10^3/cmm (1.4-6.5) H 08/08/25 19:22 Segmented Neutrophils 77 % 08/08/25 19:22 Band Neutrophils 11.0 % 08/08/25 19:22 Lymphocytes (Manual) 7 % 08/08/25 19:22 Monocytes (Manual) 4.0 % 08/08/25 19: Absolute Monocytes 0.4 10^3/cmm (0.1-0.6) 08/08/25 19:22 Eosinophils (Manual) 1 % 08/08/25 19:22 Absolute Eosinophils 0.1 10^3/cmm (0.0-0.7) 08/08/25 19:22 Basophils (Manual) 0.0 % 08/08/25 19:22 Absolute Basophils 0.0 10^3/cmm (0.0-0.2) 08/08/25 19:22 Nucleated RBCs # Cancelled 08/12/25 10:13 Platelet Estimate Normal (Normal) 08/08/25 19:22 PT 13.20 SECONDS (12.1-14.9) 08/08/25 23:00 INR 0.94 (0.8-1.2) 08/08/25 23:00 APTT 28.5 SECONDS (23.9-36.7) 08/08/25 23:00 D-Dimer 2.46 ug/mLFEU (0-0.59) H 08/08/25 23:00 Sodium 132 mmol/L (136-145) L 08/12/25 10:13 Potassium 4.5 mmol/L (3.5-5.1) 08/12/25 10:13 Chloride 99 mmol/L (98-107) 08/12/25 10:13 Carbon Dioxide 20 mmol/L (22-29) L 08/12/25 10:13 Anion Gap 17.5 (5-19) 08/12/25 10:13 BUN 13 mg/dL (8-23) 08/12/25 10:13 Creatinine 0.6 mg/dL (0.5-0.9) 08/12/25 10:13 GFR Calculation 99.1 mL/min (90-130) 08/12/25 10:13 Glucose 221 mg/dL (65-115) H 08/12/25 10:13 POC Glucose 273 mg/dL (70-110) H 08/12/25 11:32 Calculated Osmolality 281 mOsm/kg (285-295) L 08/12/25 10:13 Lactic Acid 2.0 mmol/L (0.5-2.2) 08/08/25 23:00 Calcium 9.1 mg/dL (8.5-10.5) 08/12/25 10:13 Total Bilirubin 0.3 mg/dL (0.15-1.2) 08/12/25 10:13 AST 12 U/L (0-32) 08/12/25 10:13 ALT 11 U/L (0-33) 08/12/25 10:13 Alkaline Phosphatase 120 U/L (35-105) H 08/12/25 10:13 Troponin T Baseline 8 ng/L (0-10) 08/08/25 23:00 Troponin T 120 Minute 7.88 ng/L (0-10) 08/09/25 00:58 Delta Troponin T -0.12 ABS# (0-10) L 08/09/25 00:58 Troponin T Hi Sens 6Hr 7.48 ng/L (0-10) 08/09/25 06:51 Troponin T Hi Sens 6Hr Delta -0.52 ng/L (0-12) L 08/09/25 06:51 NT-Pro-B Natriuret Pep 256 pg/mL (0-125) H 08/08/25 23:00 Total Protein 6.3 g/dL (6.6-8.7) L 08/12/25 10:13 Albumin 3.3 g/dL (3.5-5.2) L 08/12/25 10:13 Globulin 3.0 g/dL (1.3-4.6) 08/12/25 10:13 Urine Color Yellow (Yellow) 08/08/25 22:02 Urine Appearance Clear (CLEAR) 08/08/25 22:02 Urine pH 7.0 (5-7) 08/08/25 22:02 Ur Specific [place] 1.017 (1.005-1.030) 08/08/25 22:02 Urine Protein Negative (Negative) 08/08/25 22:02 Urine Glucose (UA) Negative (Normal) 08/08/25 22:02 Urine Ketones Negative (Negative) 08/08/25 22:02 Urine Blood Negative (Negative) 08/08/25 22:02 Urine Nitrate Negative (Negative) 08/08/25 22:02 Urine Bilirubin Negative (Negative) 08/08/25 22:02 Urine Urobilinogen 1.0 mg/dL (Negative) 08/08/25 22:02 Ur Leukocyte Esterase Negative (Negative) 08/08/25 22:02 Urine RBC 0-2 /hpf (0-2) 08/08/25 22:02 Urine WBC 0-5 /hpf (0-5) 08/08/25 22:02 Ur Squamous Epith Cells 0-5 /hpf (0-5) 08/08/25 22:02 Amorphous Sediment Not Reportable 08/08/25 22:02 Urine Bacteria None seen /hpf (NONE) 08/08/25 22:02 Hyaline Casts 0-4 /lpf H 08/08/25 22:02 Influenza A (PCR) Negative (Negative) 08/08/25 21:29 Influenza Type B (PCR) Negative (Negative) 08/08/25 21:29 RSV (PCR) Negative (Negative) 08/08/25 21:29 SARS-CoV-2 (PCR) Negative (Negative) 08/08/25 21:29 Blood Type A Positive 08/09/25 00:58 Rho(D) Type Rh positive 08/09/25 00:58 Antibody Screen Negative 08/09/25 00:58 Crossmatch See Detail 08/09/25 00:58 Vitals Last Vital Signs Temp 97.9 F 08/12/25 11:41 Pulse 99 08/12/25 11:41 Resp 18 08/12/25 11:41 BP 114/69 08/12/25 11:41 Pulse Ox 99 08/12/25 11:41 O2 Del Method Nasal Cannula 08/12/25 11:41 O2 Flow Rate 2 08/12/25 09:33 Discharge Plan Discharge Patient Disposition: Home Condition: Stable Prescriptions: New polyethylene glycol 3350 17 gram Powder In Packet 17 g PO DAILY Qty: 30 0RF prednisone 20 mg Tablet 40 mg PO DAILY Qty: 5 0RF docusate sodium 100 mg Capsule 100 mg PO DAILY Qty: 30 0RF cefdinir 300 mg capsule 300 mg PO BID 5 Days Qty: 10 0RF Continued metoprolol tartrate 25 mg tablet 25 mg PO DAILY 90 Days Qty: 90 1RF ubrogepant 50 mg tablet 50 mg PO 1XD PRN (Reason: Migraine Headache) Qty: 7 0RF insulin lispro [Humalog KwikPen Insulin] 100 unit/mL insulin pen See Rx Instructions SUBCUT TID PRN (Reason: blood sugar) Rx Instructions: Use per sliding scale subcutaneously three times daily as needed. cholecalciferol (vitamin D3) 125 mcg (5,000 unit) capsule 125 mcg PO DAILY arformoterol 15 mcg/2 mL solution for nebulization 2 ml inhalation BID PRN (Reason: Shortness Of Breath) gabapentin 300 mg capsule 300 mg PO BID Qty: 60 2RF pantoprazole 40 mg tablet,delayed release (DR/EC) 40 mg PO BID Qty: 180 0RF atorvastatin 10 mg tablet 10 mg PO DAILY 90 Days Qty: 90 0RF bumetanide 1 mg tablet 1 mg PO DAILY Qty: 90 0RF levothyroxine 25 mcg tablet 25 mcg PO QAM Qty: 90 0RF Trulicity 3 mg/0.5 mL pen injector 3 mg SUBCUT Q7D Rx Instructions: ON WEDNESDAY albuterol sulfate 90 mcg/actuation HFA aerosol inhaler 2 inh inhalation Q4H PRN (Reason: shortness of breath or wheezing) Qty: 6.7 0RF loratadine [Claritin] 10 mg Tablet 10 mg PO DAILY doxepin 25 mg capsule 50 mg PO BEDTIME hydrocodone-acetaminophen 5-325 mg tablet 1 tab PO Q6H PRN (Reason: Pain) tramadol 50 mg tablet 50 mg PO BID PRN (Reason: Pain) lactulose 10 gram/15 mL solution See Rx Instructions .ROUTE .COMPLEX PRN (Reason: Constipation) Rx Instructions: TAKE 30ML BY MOUTH NEEDED FOR CONSTIPATION. TAKE EVERY 2 HOURS UNTIL BOWEL MOVEMENT. IF NO BOWEL MOVEMENT WITHIN 72 HOURS, MAY REPEAT. Held aspirin 81 mg Tablet,Delayed Release (Dr/Ec) 81 mg PO DAILY Hold Instructions: Resume on 08/17/25. Discharge Order = DC NOW: Discharge Order (Routine); Ordered 08/12/25 Ordered By: Otoniel Jeronimo Referrals: Raad Bhatt FNP [Primary Care Provider, [facility]] - 08/21/25 10:40 am Referral Note: Discharge Diet: Usual diet Discharge Activity: Resume usual activity Patient Instructions: Prednisone (By mouth), Cefdinir (By mouth), Viral Pneumonia (DC), Opioid Safety, Patient Portal & Pankaj Instructions Activity Restrictions/Additional Instructions: take medicines as prescribed, followup with oncology and pcp Discharge Attestations Time Spent in Discharge Care*: less than 30 min Status at Discharge: Cognitive status at discharge: cognitively intact , Behavioral status at discharge: cooperative , Quality Metrics Clinical Quality Measures [ No reported AMI, CVA or VTE this stay] Coding Level of Care Code Acute Code for [facility] Fwd Diagnoses Community acquired pneumonia J18.9 Laterality: right Lung location: lower lobe of lung COPD exacerbation J44.1
--- NOTE | 2025-08-12 11:43 | PC.NURSE ---
Discharge delay- Patient will discharge after blood work reviewed by physician per Dr. Jeronimo
[2025-08-12 11:58] LABS: Hematocrit 30.1 % (36-47); Hemoglobin 9.50 g/dL (11.27-16.99); Mean Corpuscular HGB Conc 31.6 g/dL (30-55); Mean Corpuscular Hemoglobin 29.2 pg (27-33); Mean Corpuscular Volume 92.6 fl (85-98); Nucleated Red Blood Cells % 0 %; Platelet Count 127 10^3/cmm (157-399); Red Blood Count 3.25 10^6/uL (3.85-5.65); White Blood Count 10.11 10^3/uL (3.29-11.43)
== END 2025-08-12 14:14 | disposition home or self-care (01) | DRG 194 ==
LOC: ER 08-09 01:03 → ER IP 08-09 03:24 → MEDSURG 08-09 06:42 → ER IP 08-10 08:06
PROVIDERS: Family Medicine; Admitting Provider Family Medicine; Emergency Provider Student in an Organized Health Care Education/Training Program; PCP Registered Nurse; Visit Provider Internal Medicine
DX: J18.9 Pneumonia, unspecified organism (principal); C34.91 Malignant neoplasm of unspecified part of right bronchus or lung; J44.0 Chronic obstructive pulmonary disease with (acute) lower respiratory infection; J44.1 Chronic obstructive pulmonary disease with (acute) exacerbation; J96.10 Chronic respiratory failure, unspecified whether with hypoxia or hypercapnia; Z68.41 Body mass index [BMI] 40.0-44.9, adult; Z99.81 Dependence on supplemental oxygen; E11.9 Type 2 diabetes mellitus without complications; I10 Essential (primary) hypertension; Z51.11 Encounter for antineoplastic chemotherapy; Z87.891 Personal history of nicotine dependence; Z79.4 Long term (current) use of insulin; Z79.82 Long term (current) use of aspirin; Z79.85 Long-term (current) use of injectable non-insulin antidiabetic drugs; Z79.890 Hormone replacement therapy; Z79.51 Long term (current) use of inhaled steroids; E03.9 Hypothyroidism, unspecified; F43.10 Post-traumatic stress disorder, unspecified; Z90.49 Acquired absence of other specified parts of digestive tract; Z82.49 Family history of ischemic heart disease and other diseases of the circulatory system; Z83.3 Family history of diabetes mellitus; Z80.1 Family history of malignant neoplasm of trachea, bronchus and lung; K21.9 Gastro-esophageal reflux disease without esophagitis; E66.9 Obesity, unspecified
CPT/HCPCS: 36415; 36416; 36430; 71045; 71275; 80048; 80053; 81001; 82962; 83605; 83880; 84484; 85007; 85025; 85378; 85610; 85730; 86850; 86900; 86920; 87040; 87070; 87637; 93005; 93971; 94640; 96372; 96374; 96375; 99285; G0378; J0456; J0696; J1650; J1815; J2270; J7030; J7050; J7512; J7605; J9999; P9016; Q0144

== ENCOUNTER 2025-08-14 07:46 | Outpatient (CLI) | payer MEDICARE, MEDICAID, SELFPAY ==
--- NOTE | 2025-08-14 08:00 | MR_ITS ---
WS: [id number] MRI HEAD WITH CONTRAST TECHNIQUE: Sagittal T1, T2 axial, T2 axial FLAIR, axial susceptibility weighted imaging, axial diffusion weighted images, and coronal T2 images were obtained. Pre and post-T1 axial and post T1 coronal images. ADC and FSPGR images. CLINICAL INFORMATION: transient vison loss COMPARISON: 06/13/2025 FINDINGS: Post gadolinium images significant degraded by motion Again seen are 3 enhancing metastatic lesions in the LEFT and RIGHT centrum semiovale and RIGHT temporal lobe. Today these measure approximately 7 mm LEFT centrum semiovale, 8 mm RIGHT centrum semiovale, and 4.7 mm RIGHT temporal lobe. New enhancing tiny subcentimeter metastatic lesions are visualized today including LEFT frontal lobe inferiorly, LEFT cerebellum, RIGHT parasagittal occipital, a few additional tiny scattered punctate lesions although difficult to definitively characterize/verify due to significant motion artifact. Findings suspicious for interval progression of disease. No evidence of increasing edema or mass effect. No restricted diffusion to suggest acute ischemia. Moderate periventricular supratentorial white matter changes likely due to a combination of small vessel disease and treatment related effect. Small vessel changes in the tanya. Mucosal thickening in the mastoid tips. MR/MR head wo/w con [id number] IMPRESSION: Postgadolinium images significant degraded by motion which limits e valuation 1. 3 previously described lesions LEFT and RIGHT centrum semiovale and RIGHT t emporal lobe are similar in appearance measuring slightly larger today with mor e cavitation. Some of this may be due to treatment-related effect. 2. However there are no new punctate enhancing metastatic lesions in the LEFT inferior frontal lobe and RIGHT parasagittal occipital lobe and LEFT cerebellum suspicious for disease progression. 3. No evidence of increasing edema or mass effect.
[2025-08-14] MEDS: gadobenate dimeglumine 20 mL vial IV (08:39)
== END 2025-08-14 07:47 | disposition home or self-care (01) ==
LOC: RAD 07:49 → ONCMED 08:56
PROVIDERS: PCP Registered Nurse; Visit Provider Nurse Practitioner
DX: C34.11 Malignant neoplasm of upper lobe, right bronchus or lung (principal); R90.0 Intracranial space-occupying lesion found on diagnostic imaging of central nervous system
CPT/HCPCS: 70553

== ENCOUNTER 2025-08-24 08:02 | Oncology outpatient (recurring) (ONCR) | payer MEDICARE, MEDICAID, SELFPAY ==
[2025-08-06 08:39] LABS: Hematocrit 27.5 % (36-47); Hemoglobin 9.00 g/dL (11.27-16.99); Mean Corpuscular HGB Conc 32.7 g/dL (30-55); Mean Corpuscular Hemoglobin 28.8 pg (27-33); Mean Corpuscular Volume 88.1 fl (85-98); Nucleated Red Blood Cells % 0 %; Platelet Count 241 10^3/cmm (157-399); Red Blood Count 3.12 10^6/uL (3.85-5.65); White Blood Count 5.60 10^3/uL (3.29-11.43)
[2025-08-06 08:51] LABS: Slide Review Slide Review Perform
[2025-08-06 09:19] LABS: Glucose Urine UA Negative (Normal); Nitrate Urine Negative (Negative); Specific Gravity, Urine 1.018 (1.005-1.030)
[2025-08-06 09:24] LABS: Add Urine Microscopic? YES; Universal Test for UA Present (0)
[2025-08-06 09:28] LABS: Alanine Aminotransferase 10 U/L (0-33); Albumin Level 3.8 g/dL (3.5-5.2); Alkaline Phosphatase 129 U/L (35-105); Anion Gap 14.8 (5-19); Aspartate Amino Transferase 11 U/L (0-32); Blood Urea Nitrogen 13 mg/dL (8-23); Calcium 9.3 mg/dL (8.5-10.5); Carbon Dioxide 24 mmol/L (22-29); Chloride 103 mmol/L (98-107); Globulin 3.0 g/dL (1.3-4.6); Glucose 108 mg/dL (65-115); Osmolality Calculated 287 mOsm/kg (285-295); Potassium 3.8 mmol/L (3.5-5.1); Sodium 138 mmol/L (136-145); Total Protein 6.8 g/dL (6.6-8.7)
[2025-08-06 09:36] LABS: UA Slide Review UA Slide Review Perf
[2025-08-20 09:54] LABS: Hematocrit 32.7 % (36-47); Hemoglobin 10.50 g/dL (11.27-16.99); Mean Corpuscular HGB Conc 32.1 g/dL (30-55); Mean Corpuscular Hemoglobin 29.8 pg (27-33); Mean Corpuscular Volume 92.9 fl (85-98); Nucleated Red Blood Cells % 0 %; Platelet Count 379 10^3/cmm (157-399); Red Blood Count 3.52 10^6/uL (3.85-5.65); White Blood Count 8.11 10^3/uL (3.29-11.43)
[2025-08-20] MEDS: ondansetron 2 mg/ML SDV 2 mL 8 MG IVP (10:30)
[2025-08-20 10:34] LABS: Alanine Aminotransferase 14 U/L (0-33); Albumin Level 4.0 g/dL (3.5-5.2); Alkaline Phosphatase 95 U/L (35-105); Anion Gap 16.8 (5-19); Aspartate Amino Transferase 15 U/L (0-32); Blood Urea Nitrogen 14 mg/dL (8-23); Calcium 9.4 mg/dL (8.5-10.5); Carbon Dioxide 28 mmol/L (22-29); Chloride 98 mmol/L (98-107); Globulin 3.0 g/dL (1.3-4.6); Glucose 104 mg/dL (65-115); Osmolality Calculated 289 mOsm/kg (285-295); Potassium 3.8 mmol/L (3.5-5.1); Sodium 139 mmol/L (136-145); Thyroid Stimulating Hormone 3.71 uIU/mL (0.27-4.20); Total Protein 7.0 g/dL (6.6-8.7); Vitamin B12 1918 pg/mL (232-1245)
[2025-08-20] MEDS: TOPOTECAN IV (10:52)
[2025-08-20] MEDS: SODIUM CHLORIDE 0.9% IV (10:52)
[2025-08-20 11:29] VITALS: BP 139/98; PULSE 95; RESP 17; TEMP 36.4; O2SAT 96
[2025-08-21] MEDS: ondansetron 2 mg/ML SDV 2 mL 8 MG IVP (13:30)
[2025-08-21 13:49] VITALS: BP 111/74; PULSE 99; RESP 16; TEMP 36.1; O2SAT 99
[2025-08-21] MEDS: SODIUM CHLORIDE 0.9% IV (14:01)
[2025-08-21] MEDS: TOPOTECAN IV (14:01)
[2025-08-21 15:00] VITALS: BP 108/74; PULSE 101; RESP 17; TEMP 35.9; O2SAT 95
[2025-08-22] MEDS: ondansetron 2 mg/ML SDV 2 mL 8 MG IVP (11:21)
[2025-08-22] MEDS: TOPOTECAN IV (12:04)
[2025-08-22] MEDS: SODIUM CHLORIDE 0.9% IV (12:04)
[2025-08-22 12:55] VITALS: BP 109/76; PULSE 103; RESP 17; TEMP 36.6; O2SAT 97
[2025-08-23] MEDS: ondansetron 2 mg/ML SDV 2 mL 8 MG IVP (11:22)
[2025-08-23] MEDS: SODIUM CHLORIDE 0.9% IV (11:46)
[2025-08-23] MEDS: TOPOTECAN IV (11:46)
[2025-08-23 12:37] VITALS: BP 124/72; PULSE 72; RESP 18; TEMP 36.6; O2SAT 98
[2025-08-24] MEDS: ondansetron 2 mg/ML SDV 2 mL 8 MG IVP (08:11)
[2025-08-24 08:15] VITALS: BP 115/82; PULSE 100; RESP 16; TEMP 36.2; O2SAT 95
[2025-08-24] MEDS: SODIUM CHLORIDE 0.9% IV (08:36)
[2025-08-24] MEDS: TOPOTECAN IV (08:36)
[2025-08-24 09:21] VITALS: BP 94/66; PULSE 100; RESP 16; TEMP 36.3; O2SAT 96
[2025-08-24] MEDS: pegfilgrastim 6 mg/0.6 mL Kit (onpro) SUBCUT (09:26)
== END 2025-09-05 23:59 | disposition home or self-care (01) ==
PROVIDERS: Nurse Practitioner; PCP Registered Nurse; Visit Provider Internal Medicine Medical Oncology
DX: Z51.11 Encounter for antineoplastic chemotherapy (principal); C34.11 Malignant neoplasm of upper lobe, right bronchus or lung; Z79.899 Other long term (current) drug therapy
CPT/HCPCS: 36591; 80053; 81001; 82607; 82746; 84443; 85025; 96365; 96375; 96377; 96413; 99214; J2405; J2506; J7050; J9351